=== PATIENT | female | born 1955 | race American Indian/Alaskan Native ===

== ENCOUNTER 2016-03-23 12:25 | Emergency (ER) | payer MEDICARE, MEDICAID ==
[~2016-03-23] VITALS: Ht 160 cm; Wt 71.2 kg
[~2016-03-23 12:25] MED LIST: ALPR0.5T7; ESTR2TAB; FLUC150T41; GLIP-115; METR0.7517; OXYC325T14; PIOG15TA46; TRAM50TA2
[2016-03-23] MEDS ORDERED: HYDROmorphone HCL 2 MG/ML VL IV ONE (13:15)
[2016-03-23] MEDS ORDERED: ONDANSETRON HCL 4 MG/2 ML VIAL IV ONE (13:15)
[2016-03-23 13:54] LABS: Basophils # (auto) 0 uL; Basophils % (auto) 0.2 % (0.0-2.0); Eosinophils # (auto) 0 uL; Eosinophils % (auto) 0.5 % (0.0-7.0); Hematocrit 37.6 % (36.0-46.0); Hemoglobin 12.1 g/dL (12.2-16.2); Lymphocytes # (auto) 2.1 uL; Lymphocytes % (auto) 37.1 % (10.0-50.0); Mean Corpuscular Hemoglobin 28.6 pg (28.0-32.0); Mean Corpuscular Hgb Conc. 32.3 g/dL (32.0-36.0); Mean Corpuscular Volume 88.4 fL (80.0-100.0); Mean Platelet Volume 9.4 fL (7.4-10.4); Monocytes # (auto) 0.2 uL; Monocytes % (auto) 3.9 % (0.0-12.0); Neutrophils # (auto) 3.4 uL; Neutrophils % (auto) 58.3 % (37.0-80.0); Platelet Count (auto) 368 10^3/uL (140-450); Red Cell Distribution Width 15.1 % (11.6-16.0); White Blood Cell 5.8 10^3/uL (4.4-10.8)
[2016-03-23 14:18] LABS: Albumin 3.4 g/dL (3.4-5.0); BUN/Creatinine Ratio 16.5; Bilirubin, Total 0.2 mg/dL (0.2-1.0); Calcium 9.3 mg/dL (8.5-10.1); Potassium 4.1 mmol/L (3.5-5.1); Total Protein 7.1 g/dL (6.4-8.2)
[2016-03-23 16:38] VITALS: BP 136/63
== END 2016-03-23 16:45 | disposition short-term general hospital (02) ==
LOC: EDUNIT# 12:25 → ER 12:31
DX: S72.001A Fracture of unspecified part of neck of right femur, initial encounter for closed fracture (principal); E11.9 Type 2 diabetes mellitus without complications; I10 Essential (primary) hypertension; J44.9 Chronic obstructive pulmonary disease, unspecified; M19.90 Unspecified osteoarthritis, unspecified site; Z96.641 Presence of right artificial hip joint; E07.9 Disorder of thyroid, unspecified; F17.210 Nicotine dependence, cigarettes, uncomplicated; X50.1XXA Overexertion from prolonged static or awkward postures, initial encounter; Y93.89 Activity, other specified; Y99.8 Other external cause status; Y92.89 Other specified places as the place of occurrence of the external cause
CPT/HCPCS: 36415; 73502; 80053; 85025; 96374; 96375; 99285; J1170; J2405

== ENCOUNTER 2016-12-20 16:19 | Inpatient (IN) | payer MEDICARE, MEDICAID ==
[~2016-12-20] VITALS: Ht 160 cm; Wt 83.0 kg
[~2016-12-20 16:19] MED LIST changes: -ALPR0.5T7; +ALPR0.5T7 PO
[2016-12-20] MEDS ORDERED: SODIUM CHLORIDE 0.9% 1,000 ML IVB ONE (17:08)
[2016-12-20 17:26] LABS: Basophils # (auto) 0 uL; Basophils % (auto) 0.5 % (0.0-2.0); Eosinophils # (auto) 0.1 uL; Eosinophils % (auto) 1.3 % (0.0-7.0); Hematocrit 36.4 % (36.0-46.0); Hemoglobin 11.5 g/dL (12.2-16.2); Lymphocytes # (auto) 1.7 uL; Lymphocytes % (auto) 35.8 % (10.0-50.0); Mean Corpuscular Hemoglobin 28.9 pg (28.0-32.0); Mean Corpuscular Hgb Conc. 31.6 g/dL (32.0-36.0); Mean Corpuscular Volume 91.2 fL (80.0-100.0); Mean Platelet Volume 9.1 fL (6.9-10.8); Monocytes # (auto) 0.3 uL; Monocytes % (auto) 5.2 % (0.0-12.0); Neutrophils # (auto) 2.7 uL; Neutrophils % (auto) 57.2 % (37.0-80.0); Platelet Count (auto) 293 10^3/uL (140-450); Red Cell Distribution Width 15.9 % (11.8-14.3); White Blood Cell 4.8 10^3/uL (4.4-10.8)
[2016-12-20 17:40] LABS: INR 0.96 (0.9-1.15); Partial Thromboplastin Time 29.2 sec (22.64-33.71); Prothrombin Time 10.5 sec (9.37-12.3)
[2016-12-20 18:02] LABS: Albumin 3.4 g/dL (3.4-5.0); BUN/Creatinine Ratio 19.4; Bilirubin, Total 0.3 mg/dL (0.2-1.0); Calcium 8.7 mg/dL (8.5-10.1); Magnesium 2.2 mg/dL (1.6-2.6); Potassium 4.3 mmol/L (3.5-5.1); Total Protein 6.8 g/dL (6.4-8.2)
[2016-12-20] MEDS ORDERED: MORPHINE SULF INJ 2 MG/ML SYRINGE 1ML IV ONE (18:30)
[2016-12-20] MEDS ORDERED: InsuLIN REG 1unit/0.01ml Soln (100units/ml) IV ONE (18:30)
[2016-12-20] MEDS ORDERED: ONDANSETRON HCL 4 MG/2 ML VIAL IV ONE (18:30)
[2016-12-20] MEDS ORDERED: HYDROcodone-ACET 10/325MG TAB PO ONE (20:15)
[2016-12-20] MEDS ORDERED: ACETAMINOPHEN 500 MG TAB PO PRN (20:45)
[2016-12-20] MEDS ORDERED: CLINDAMYCIN 600MG IV 50 ML IV ONE (20:45)
[2016-12-20] MEDS ORDERED: cefTRIAXone 1GM/50ML D5W 50 ML IV ONE (20:45)
[2016-12-20] MEDS ORDERED: DEXTROSE (50%) 50ML SYRG IV PRN (20:45)
[2016-12-20] MEDS ORDERED: MORPHINE SULF INJ 2 MG/ML SYRINGE 1ML IV PRN (20:45)
[2016-12-20] MEDS ORDERED: NITROGLYCERIN 0.4 MG SL TAB SL PRN (20:45)
[2016-12-20] MEDS ORDERED: ONDANSETRON HCL 4 MG/2 ML VIAL IV PRN (20:45)
[2016-12-20 21:40] LABS: Cholesterol 159 mg/dL (< 200); HDL Cholesterol 91 mg/dL (40-59); LDL Cholesterol 64 mg/dL (< 100); Triglycerides 49 mg/dL (< 150)
[2016-12-20] MEDS ORDERED: InsuLIN REG 1unit/0.01ml Soln (100units/ml) SC SCH (22:00)
[2016-12-20] MEDS: ACCU-CHEK COMFORT CURVE STRIP VI SCH (23:20)
[2016-12-20] MEDS: CLINDAMYCIN 600MG IV 50 ML IV SCH (23:30)
[2016-12-20] MEDS: PRAMIPEXOLE DIHYDROCHLORIDE MO 0.25 MG TAB PO SCH (23:31)
[2016-12-20] MEDS: MORPHINE SULF INJ 2 MG/ML SYRINGE 1ML IV PRN (23:32)
[2016-12-21] MEDS: HYDROcodone-ACET 5/325MG TAB PO PRN ×2 (03:42→09:20)
[2016-12-21 05:00] VITALS: BP 135/72
[2016-12-21] MEDS: CLINDAMYCIN 600MG IV 50 ML IV SCH ×2 (06:04→14:15)
[2016-12-21] MEDS: InsuLIN REG 1unit/0.01ml Soln (100units/ml) SC SCH ×3 (07:00→17:01)
[2016-12-21] MEDS: LEVOTHYROXINE SODIUM 50 MCG TAB PO SCH (07:00)
[2016-12-21] MEDS: ACCU-CHEK COMFORT CURVE STRIP VI SCH ×4 (07:00→21:43)
[2016-12-21 07:01] LABS: Basophils # (auto) 0 uL; Basophils % (auto) 0.4 % (0.0-2.0); Eosinophils # (auto) 0.1 uL; Eosinophils % (auto) 2.1 % (0.0-7.0); Hematocrit 35.5 % (36.0-46.0); Hemoglobin 11.3 g/dL (12.2-16.2); Lymphocytes # (auto) 2.6 uL; Lymphocytes % (auto) 50.6 % (10.0-50.0); Mean Corpuscular Hemoglobin 29.1 pg (28.0-32.0); Mean Corpuscular Volume 90.9 fL (80.0-100.0); Mean Platelet Volume 9.6 fL (6.9-10.8); Monocytes # (auto) 0.3 uL; Monocytes % (auto) 4.8 % (0.0-12.0); Neutrophils # (auto) 2.2 uL; Neutrophils % (auto) 42.1 % (37.0-80.0); Nucleated Red Blood Cells % 0.2 %; Platelet Count (auto) 283 10^3/uL (140-450); Red Cell Distribution Width 15.7 % (11.8-14.3); White Blood Cell 5.2 10^3/uL (4.4-10.8)
[2016-12-21 07:09] LABS: Potassium 3.8 mmol/L (3.5-5.1)
[2016-12-21 07:10] LABS: Calcium 8.5 mg/dL (8.5-10.1)
[2016-12-21 09:20] VITALS: BP 137/56
[2016-12-21] MEDS: MORPHINE SULF INJ 2 MG/ML SYRINGE 1ML IV PRN ×3 (10:06→18:57)
[2016-12-21 11:44] VITALS: BP 154/74
[2016-12-21] MEDS ORDERED: DEXTROSE (50%) 50ML SYRG IV PRN (12:00)
[2016-12-21 17:16] VITALS: BP 140/72
[2016-12-21 21:36] VITALS: BP 122/68
[2016-12-21] MEDS: PRAMIPEXOLE DIHYDROCHLORIDE MO 0.25 MG TAB PO SCH (21:43)
[2016-12-21] MEDS: INSULIN DETEMIR(LEVEMIR) 1unit/0.01ml Soln (100units/ml) SC SCH (21:43)
[2016-12-21] MEDS ORDERED: InsuLIN REG 1unit/0.01ml Soln (100units/ml) SC SCH (22:00)
[2016-12-21] MEDS ORDERED: cefTRIAXone 1GM/50ML D5W 50 ML IV SCH (22:00)
[2016-12-22] MEDS: MORPHINE SULF INJ 2 MG/ML SYRINGE 1ML IV PRN ×4 (00:20→14:04)
[2016-12-22 04:25] VITALS: BP 141/78
[2016-12-22] MEDS: HYDROcodone-ACET 5/325MG TAB PO PRN ×3 (05:00→15:56)
[2016-12-22] MEDS: INSULIN DETEMIR(LEVEMIR) 1unit/0.01ml Soln (100units/ml) SC SCH (06:40)
[2016-12-22] MEDS: LEVOTHYROXINE SODIUM 50 MCG TAB PO SCH (06:40)
[2016-12-22] MEDS: InsuLIN REG 1unit/0.01ml Soln (100units/ml) SC SCH ×2 (06:40→11:35)
[2016-12-22] MEDS: ACCU-CHEK COMFORT CURVE STRIP VI SCH ×2 (06:41→11:36)
[2016-12-22 09:06] VITALS: BP 138/62
[2016-12-22 13:00] VITALS: BP 129/52
[2016-12-22 16:14] VITALS: BP 129/52
== END 2016-12-22 17:00 | disposition home or self-care (01) | DRG 639 ==
LOC: ER 16:19 → TELE 16:20 → TELE-WESTW 22:10
PROVIDERS: ADMIT Nurse Practitioner Family; ATTEND Internal Medicine Pulmonary Disease
DX: E11.65 Type 2 diabetes mellitus with hyperglycemia (principal); I10 Essential (primary) hypertension; W01.0XXA Fall on same level from slipping, tripping and stumbling without subsequent striking against object, initial encounter; J44.9 Chronic obstructive pulmonary disease, unspecified; E03.9 Hypothyroidism, unspecified; M19.90 Unspecified osteoarthritis, unspecified site; G25.81 Restless legs syndrome; D64.9 Anemia, unspecified; M25.551 Pain in right hip; M25.552 Pain in left hip; M79.641 Pain in right hand; Z96.659 Presence of unspecified artificial knee joint; Z96.649 Presence of unspecified artificial hip joint; F17.210 Nicotine dependence, cigarettes, uncomplicated; Z79.4 Long term (current) use of insulin; Z90.89 Acquired absence of other organs; Z98.51 Tubal ligation status; Z87.81 Personal history of (healed) traumatic fracture; Z79.899 Other long term (current) drug therapy; Y93.89 Activity, other specified; Y92.89 Other specified places as the place of occurrence of the external cause; Y99.8 Other external cause status
CPT/HCPCS: 36415; 70450; 71010; 72192; 73130; 73200; 80048; 80053; 80061; 82550; 82962; 83036; 83735; 84443; 84484; 85025; 85610; 85652; 85730; 86141; 93005; 94761; 96361; 96374; 96375; J0696; J1815; J2405; J3490

== ENCOUNTER 2017-08-10 17:25 | Inpatient (IN) | payer MEDICARE, MEDICAID ==
[~2017-08-10] VITALS: Ht 160 cm; Wt 63.4 kg
[2017-08-10] MEDS ORDERED: PANTOPRAZOLE 40 MG/10 ML VIAL IV STA (17:29)
[2017-08-10] MEDS ORDERED: MORPHINE SULFATE 4 MG/ML SYR/VIAL IV ONE (17:30)
[2017-08-10] MEDS ORDERED: PROCHLORPERAZINE EDISYLATE 5 MG/ML 2ML VIAL IV ONE (17:30)
[2017-08-10] MEDS ORDERED: MORPHINE SULFATE INJECTION 1 ML ONE (17:58)
[2017-08-10 18:01] LABS: Nucleated Red Blood Cells % 0.1 %
[2017-08-10 18:17] LABS: Basophils # (auto) 0.1 uL; Basophils % (auto) 0.6 % (0.0-2.0); Eosinophils # (auto) 0 uL; Eosinophils % (auto) 0.3 % (0.0-7.0); Hemoglobin 14.4 g/dL (12.2-16.2)
[2017-08-10 18:19] LABS: Lymphocytes # (auto) 2.5 uL; Lymphocytes % (auto) 27.6 % (10.0-50.0); Mean Corpuscular Hemoglobin 30.6 pg (28.0-32.0); Mean Corpuscular Hgb Conc. 31.4 g/dL (32.0-36.0); Mean Corpuscular Volume 97.6 fL (80.0-100.0); Monocytes # (auto) 0.5 uL; Monocytes % (auto) 5.1 % (0.0-12.0); Neutrophils % (auto) 66.4 % (37.0-80.0); Platelet Count (auto) 435 10^3/uL (140-450); Red Blood Cells 4.71 10^6/uL (4.0-5.20); Red Cell Distribution Width 18.6 % (11.8-14.3); White Blood Cell 9.1 10^3/uL (4.4-10.8)
[2017-08-10 18:23] LABS: Albumin 3.8 g/dL (3.4-5.0); Calcium 10.9 mg/dL (8.5-10.1); Potassium 4.7 mmol/L (3.5-5.1)
[2017-08-10 18:25] LABS: Bilirubin, Total 0.7 mg/dL (0.2-1.0)
[2017-08-10 18:28] LABS: Lactic Acid w/Reflex 2.3 mmol/L (0.4-2.0)
[2017-08-10] MEDS ORDERED: InsuLIN REG 1unit/0.01ml Soln (100units/ml) IV ONE (18:30)
[2017-08-10] MEDS ORDERED: InsuLIN R (HUMAN) 100 UNITS in SODIUM CHL 0.9% 99 ML IV SCH (18:39)
[2017-08-10] MEDS ORDERED: DEXTROSE (50%) 50ML SYRG IV SCH (18:45)
[2017-08-10] MEDS ORDERED: LABETALOL HCL 5 MG/ML ML 20ML VIAL IV ONE (19:30)
[2017-08-10] MEDS: ACCU-CHEK COMFORT CURVE STRIP VI SCH ×3 (19:39→22:29)
[2017-08-10] MEDS ORDERED: cefTRIAXone 1GM/10ml IVPUSH 10 ML IV ONE (19:45)
[2017-08-10] MEDS ORDERED: ACETAMINOPHEN 325 MG TAB PO PRN (19:45)
[2017-08-10] MEDS ORDERED: MORPHINE SULFATE 8mg/ml INJ SDV IV PRN ×2 (19:45)
[2017-08-10] MEDS ORDERED: DOCUSATE SOD 100 MG CAP PO PRN (19:45)
[2017-08-10] MEDS ORDERED: cloNIDine HCL 0.1 MG TAB PO PRN (19:45)
[2017-08-10] MEDS ORDERED: VANCOMYCIN PER PHARMACY 0 MG IV SCH (19:45)
[2017-08-10] MEDS ORDERED: TEMAZEPAM 15 MG CAP PO PRN (19:45)
[2017-08-10] MEDS ORDERED: NITROGLYCERIN 0.4 MG SL TAB SL PRN (19:45)
[2017-08-10] MEDS ORDERED: VANCOMYCIN 1GM/250ML 250 ML IV SCH (22:00)
[2017-08-10 22:24] LABS: Lactic Acid w/Reflex 4.4 mmol/L (0.4-2.0)
[2017-08-10] MEDS: FAMOTIDINE 20 MG TAB PO SCH (22:26)
[2017-08-11] MEDS: ACCU-CHEK COMFORT CURVE STRIP VI SCH ×12 (00:11→18:42)
[2017-08-11] MEDS: ALBUTEROL SULF 2.5 MG/0.5ML(0.5%) NEB SOLN NEB SCH ×4 (00:23→18:59)
[2017-08-11 05:17] LABS: Urine Bacteria FEW /hpf (None Seen); Urine Blood Negative /uL (Negative); Urine Hyaline Cast FEW /lpf (0 - 2); Urine Mucus FEW (None Seen); Urine Specific Gravity 1.014 (1.001-1.035); Urine WBC 2 /hpf (0 - 5)
[2017-08-11 05:28] LABS: Alcohol, Urine < 3.0 mg/dL (0-5); Amphetamine Screen, Urine POSITIVE (NEGATIVE); Barbiturate Scree,Urine NEGATIVE (NEGATIVE); Benzodiazephine Screen, Urine NEGATIVE (NEGATIVE); Cannabinoid Screen, Urine POSITIVE (NEGATIVE); Cocaine Screen, Urine NEGATIVE (NEGATIVE); Opiate Scree,Urine POSITIVE (NEGATIVE); Phencyclidine Screen, Urine NEGATIVE (NEGATIVE)
[2017-08-11 05:47] VITALS: BP 138/61
[2017-08-11 06:07] LABS: Basophils # (auto) 0 uL; Basophils % (auto) 0.4 % (0.0-2.0); Eosinophils # (auto) 0 uL; Eosinophils % (auto) 0.4 % (0.0-7.0); Hematocrit 37.4 % (36.0-46.0); Hemoglobin 12.5 g/dL (12.2-16.2); Lymphocytes # (auto) 1.6 uL; Lymphocytes % (auto) 21.7 % (10.0-50.0); Mean Corpuscular Hemoglobin 30.9 pg (28.0-32.0); Mean Corpuscular Hgb Conc. 33.5 g/dL (32.0-36.0); Mean Corpuscular Volume 92.1 fL (80.0-100.0); Monocytes # (auto) 0.4 uL; Neutrophils # (auto) 5.2 uL; Neutrophils % (auto) 71.5 % (37.0-80.0); Nucleated Red Blood Cells % 0.1 %; Platelet Count (auto) 330 10^3/uL (140-450); Red Blood Cells 4.06 10^6/uL (4.0-5.20); Red Cell Distribution Width 17.1 % (11.8-14.3); White Blood Cell 7.3 10^3/uL (4.4-10.8)
[2017-08-11 06:11] LABS: Albumin 3.2 g/dL (3.4-5.0); BUN/Creatinine Ratio 17.1; Bilirubin, Total 0.4 mg/dL (0.2-1.0); Calcium 9.2 mg/dL (8.5-10.1); Total Protein 6.4 g/dL (6.4-8.2)
[2017-08-11] MEDS ORDERED: cefTRIAXone 1GM/10ml IVPUSH 10 ML IV SCH (09:00)
[2017-08-11] MEDS: MULTIPLE VITAMIN TAB PO SCH (09:58)
[2017-08-11] MEDS: FAMOTIDINE 20 MG TAB PO SCH ×2 (09:58→22:49)
[2017-08-11] MEDS: ONDANSETRON HCL 4 MG/2 ML VIAL IV PRN ×2 (13:00→21:39)
[2017-08-11] MEDS: SODIUM CHLORIDE 0.9% 1,000 ML IV SCH (14:44)
[2017-08-11 15:13] LABS: BUN/Creatinine Ratio 10.8; Calcium 8.2 mg/dL (8.5-10.1); Potassium 3.2 mmol/L (3.5-5.1)
[2017-08-11] MEDS ORDERED: INSULIN LANTUS (GLARGINE) 1 /0.01ml (100units/ml) SC ONE (15:15)
[2017-08-11] MEDS ORDERED: DEXTROSE (50%) 50ML SYRG IV PRN (17:15)
[2017-08-11] MEDS: MORPHINE SULFATE 8mg/ml INJ SDV IV PRN (21:39)
[2017-08-11] MEDS ORDERED: InsuLIN REG 1unit/0.01ml Soln (100units/ml) SC SCH (22:00)
[2017-08-11 23:15] VITALS: BP 101/54
[2017-08-11 23:26] VITALS: BP 109/54
[2017-08-11] MEDS ORDERED: INSLANTI SC (23:55)
[2017-08-12] MEDS ORDERED: PERCOT PO
[2017-08-12] MEDS ORDERED: PIOG15TA38 PO
[2017-08-12] MEDS ORDERED: INSU100I24 SC
[2017-08-12] MEDS ORDERED: PRAM1TAB PO
[2017-08-12] MEDS ORDERED: LEVO150T10 PO
[2017-08-12] MEDS: SODIUM CHLORIDE 0.9% 1,000 ML IV SCH (00:28)
[2017-08-12] MEDS: HYDROcodone-ACET 5/325MG TAB PO PRN ×2 (03:16→11:10)
[2017-08-12 05:00] VITALS: BP 121/60
[2017-08-12] MEDS ORDERED: SODIUM CHLORIDE 0.9 % NEB SOLN 3ML NEB ONE ×2 (05:49→12:01)
[2017-08-12 05:51] LABS: Basophils # (auto) 0 uL; Basophils % (auto) 0.7 % (0.0-2.0); Eosinophils # (auto) 0.1 uL; Eosinophils % (auto) 3.3 % (0.0-7.0); Hematocrit 35.1 % (36.0-46.0); Hemoglobin 11.6 g/dL (12.2-16.2); Lymphocytes # (auto) 1.8 uL; Mean Corpuscular Hemoglobin 30.5 pg (28.0-32.0); Mean Corpuscular Hgb Conc. 32.9 g/dL (32.0-36.0); Mean Corpuscular Volume 92.6 fL (80.0-100.0); Monocytes # (auto) 0.2 uL; Monocytes % (auto) 4.6 % (0.0-12.0); Neutrophils # (auto) 1.6 uL; Neutrophils % (auto) 42.4 % (37.0-80.0); Nucleated Red Blood Cells % 0.2 %; Platelet Count (auto) 271 10^3/uL (140-450); Red Blood Cells 3.79 10^6/uL (4.0-5.20); Red Cell Distribution Width 17.7 % (11.8-14.3); White Blood Cell 3.7 10^3/uL (4.4-10.8)
[2017-08-12 06:05] LABS: Calcium 8.2 mg/dL (8.5-10.1); Magnesium 2.2 mg/dL (1.6-2.6); Potassium 3.3 mmol/L (3.5-5.1)
[2017-08-12] MEDS: ACCU-CHEK COMFORT CURVE STRIP VI SCH (06:31)
[2017-08-12] MEDS ORDERED: LEVOTHYROXINE SODIUM 50 MCG TAB PO SCH (07:00)
[2017-08-12] MEDS ORDERED: InsuLIN REG 1unit/0.01ml Soln (100units/ml) SC SCH ×2 (07:00→11:30)
[2017-08-12] MEDS: ALBUTEROL SULF 2.5 MG/0.5ML(0.5%) NEB SOLN NEB SCH ×3 (07:10→13:35)
[2017-08-12] MEDS: ONDANSETRON HCL 4 MG/2 ML VIAL IV PRN (08:46)
[2017-08-12] MEDS: MORPHINE SULFATE 8mg/ml INJ SDV IV PRN (08:47)
[2017-08-12 09:00] VITALS: BP 117/67
[2017-08-12] MEDS ORDERED: DEXTROSE (50%) 50ML SYRG IV PRN (09:45)
[2017-08-12] MEDS ORDERED: POTASSIUM CHL 20 Meq TABLET PO ONE (09:45)
[2017-08-12] MEDS: MULTIPLE VITAMIN TAB PO SCH (10:19)
[2017-08-12] MEDS: FAMOTIDINE 20 MG TAB PO SCH (10:19)
[2017-08-12] MEDS ORDERED: ACCU-CHEK COMFORT CURVE STRIP VI SCH (11:30)
[2017-08-12 13:00] VITALS: BP 120/70
== END 2017-08-12 15:35 | disposition home or self-care (01) | DRG 871 ==
LOC: EDBD 17:25 → ER 17:25 → EDUNIT# 17:25 → TELE 17:26 → TELE-WESTW 22:12
PROVIDERS: ADMIT Internal Medicine; ATTEND Internal Medicine
DX: A41.9 Sepsis, unspecified organism (principal); E11.10 Type 2 diabetes mellitus with ketoacidosis without coma; N17.0 Acute kidney failure with tubular necrosis; E87.1 Hypo-osmolality and hyponatremia; E11.21 Type 2 diabetes mellitus with diabetic nephropathy; N18.3 Chronic kidney disease, stage 3 (moderate); E83.51 Hypocalcemia; I12.9 Hypertensive chronic kidney disease with stage 1 through stage 4 chronic kidney disease, or unspecified chronic kidney disease; E03.9 Hypothyroidism, unspecified; E11.22 Type 2 diabetes mellitus with diabetic chronic kidney disease; E87.6 Hypokalemia; F17.210 Nicotine dependence, cigarettes, uncomplicated; G25.81 Restless legs syndrome; J44.9 Chronic obstructive pulmonary disease, unspecified; F15.10 Other stimulant abuse, uncomplicated; F41.9 Anxiety disorder, unspecified; F12.10 Cannabis abuse, uncomplicated; F11.10 Opioid abuse, uncomplicated; M19.90 Unspecified osteoarthritis, unspecified site; Z79.4 Long term (current) use of insulin; Z83.3 Family history of diabetes mellitus; Z87.01 Personal history of pneumonia (recurrent); Z90.710 Acquired absence of both cervix and uterus; Z91.19 Patient's noncompliance with other medical treatment and regimen; Z98.51 Tubal ligation status; Z79.899 Other long term (current) drug therapy; Z90.89 Acquired absence of other organs
CPT/HCPCS: 36415; 36600; 71045; 80048; 80053; 80061; 80307; 81001; 82010; 82150; 82805; 82962; 83036; 83605; 83690; 83735; 84443; 84484; 85025; 87040; 87081; 87086; 93005; 93306; 94640; 94761; 96365; 96367; 96375; C9113; J1815; J2270; J2405

== ENCOUNTER 2017-08-15 12:17 | Inpatient (IN) | payer MEDICARE, MEDICAID ==
[~2017-08-15] VITALS: Ht 167.6 cm; Wt 56.9 kg
[2017-08-15] MEDS: InsuLIN R (HUMAN) 100 UNITS in SODIUM CHL 0.9% 99 ML IV SCH (02:00)
[~2017-08-15 12:17] MED LIST changes: -ESTR2TAB; -FLUC150T41; -GLIP-115; +INSLANTI SC; +INSU100I24 SC; +LEVO150T10 PO; -METR0.7517; -OXYC325T14; +PERCOT PO; +PIOG15TA38 PO; -PIOG15TA46; +PRAM1TAB PO; -TRAM50TA2
[2017-08-15] MEDS ORDERED: ASPirin 81 mg TAB PO ONE (13:00)
[2017-08-15] MEDS ORDERED: SODIUM CHLORIDE 0.9% 1,000 ML IVB ONE (13:03)
[2017-08-15] MEDS ORDERED: ONDANSETRON HCL 4 MG/2 ML VIAL IV ONE (13:30)
[2017-08-15] MEDS ORDERED: MEPERIDINE HCL (25 MG/ML) 1ML VIAL IV ONE (13:30)
[2017-08-15 13:57] LABS: Basophils # (auto) 0.1 uL; Basophils % (auto) 1.1 % (0.0-2.0); Eosinophils # (auto) 0 uL; Eosinophils % (auto) 0.5 % (0.0-7.0); Hematocrit 37.4 % (36.0-46.0); Hemoglobin 12.2 g/dL (12.2-16.2); Lymphocytes % (auto) 11.3 % (10.0-50.0); Mean Corpuscular Hemoglobin 30.3 pg (28.0-32.0); Mean Corpuscular Hgb Conc. 32.7 g/dL (32.0-36.0); Mean Corpuscular Volume 92.7 fL (80.0-100.0); Monocytes # (auto) 0.4 uL; Monocytes % (auto) 4.3 % (0.0-12.0); Neutrophils # (auto) 7.4 uL; Neutrophils % (auto) 82.8 % (37.0-80.0); Platelet Count (auto) 263 10^3/uL (140-450); Red Blood Cells 4.04 10^6/uL (4.0-5.20); Red Cell Distribution Width 17.6 % (11.8-14.3); White Blood Cell 8.9 10^3/uL (4.4-10.8)
[2017-08-15 14:06] LABS: INR 0.9 (0.9-1.15); Partial Thromboplastin Time 24.3 sec (23.78-33.04); Prothrombin Time 9.7 sec (9.27-12.13)
[2017-08-15 14:14] LABS: Albumin 2.7 g/dL (3.4-5.0); BUN/Creatinine Ratio 16.1; Potassium 3.6 mmol/L (3.5-5.1)
[2017-08-15 14:19] LABS: Bilirubin, Total 0.3 mg/dL (0.2-1.0); Total Protein 5.9 g/dL (6.4-8.2)
[2017-08-15 14:40] LABS: Urine Bacteria NONE SEEN /hpf (None Seen); Urine Blood Negative /uL (Negative); Urine Specific Gravity 1.029 (1.001-1.035); Urine WBC <1 /hpf (0 - 5)
[2017-08-15 14:55] LABS: Alcohol, Urine < 3.0 mg/dL (0-5); Amphetamine Screen, Urine NEGATIVE (NEGATIVE); Barbiturate Scree,Urine NEGATIVE (NEGATIVE); Benzodiazephine Screen, Urine NEGATIVE (NEGATIVE); Cannabinoid Screen, Urine POSITIVE (NEGATIVE); Cocaine Screen, Urine NEGATIVE (NEGATIVE); Opiate Scree,Urine NEGATIVE (NEGATIVE); Phencyclidine Screen, Urine NEGATIVE (NEGATIVE)
[2017-08-15] MEDS ORDERED: InsuLIN R (HUMAN) 100 UNITS in SODIUM CHL 0.9% 99 ML IV SCH (16:06)
[2017-08-15] MEDS ORDERED: DEXTROSE (50%) 50ML SYRG IV PRN ×4 (16:15→23:45)
[2017-08-15] MEDS ORDERED: ACCU-CHEK COMFORT CURVE STRIP VI SCH (16:30)
[2017-08-15] MEDS ORDERED: InsuLIN REG 1unit/0.01ml Soln (100units/ml) IV ONE ×2 (16:30→23:00)
[2017-08-15] MEDS ORDERED: NITROGLYCERIN 0.4 MG SL TAB SL PRN ×2 (16:45)
[2017-08-15] MEDS ORDERED: MORPHINE SULFATE 8mg/ml INJ SDV IV PRN ×2 (16:45)
[2017-08-15] MEDS ORDERED: ONDANSETRON HCL 4 MG/2 ML VIAL IV PRN (16:45)
[2017-08-15] MEDS ORDERED: ALUM & MAG HYDROX-SIMETH LIQ(MAALOX) 30 ML PO ONE (16:45)
[2017-08-15] MEDS ORDERED: ACETAMINOPHEN 325 MG TAB PO PRN (16:45)
[2017-08-15] MEDS: ACCU-CHEK COMFORT CURVE STRIP VI SCH ×2 (16:51→21:34)
[2017-08-15] MEDS ORDERED: InsuLIN REG 1unit/0.01ml Soln (100units/ml) SC SCH ×2 (17:00→22:00)
[2017-08-15] MEDS: SODIUM CHLORIDE 0.9% 1,000 ML IV SCH (18:04)
[2017-08-15] MEDS: OXYCODONE W/ ACETAMINOPHEN 5/325MG TABLET PO PRN (18:05)
[2017-08-15 18:47] VITALS: BP 120/53
[2017-08-15] MEDS: LORazepam 0.5 MG TAB PO PRN (19:44)
[2017-08-15 21:13] VITALS: BP 143/42
[2017-08-15] MEDS: CARVEDILOL 3.125 MG TAB PO SCH (21:33)
[2017-08-15] MEDS: ATORVASTATIN 20 MG TAB PO SCH (21:33)
[2017-08-15] MEDS: ENALAPRIL MALEATE 2.5 MG TAB PO SCH (21:33)
[2017-08-15 23:26] LABS: Potassium 4.7 mmol/L (3.5-5.1)
[2017-08-15 23:27] LABS: Albumin 3.6 g/dL (3.4-5.0); BUN/Creatinine Ratio 13.3; Bilirubin, Total 0.8 mg/dL (0.2-1.0)
[2017-08-16] VITALS (56 sets, daily range): BP systolic 80–125; BP diastolic 35–63
[2017-08-16] MEDS: ACCU-CHEK COMFORT CURVE STRIP VI SCH ×14 (00:12→20:34)
[2017-08-16] MEDS: SODIUM CHLORIDE 0.9% 1,000 ML IV SCH ×6 (00:28→18:31)
[2017-08-16] MEDS ORDERED: ALUM & MAG HYDROX-SIMETH LIQ(MAALOX) 30 ML PO ONE (03:30)
[2017-08-16] MEDS ORDERED: SODIUM CHLORIDE 0.9% 1,000 ML IV SCH (03:37)
[2017-08-16] MEDS: InsuLIN REG 1unit/0.01ml Soln (100units/ml) SC SCH ×6 (04:00→20:34)
[2017-08-16 04:10] LABS: Basophils # (auto) 0 uL; Basophils % (auto) 0.2 % (0.0-2.0); Eosinophils # (auto) 0 uL; Eosinophils % (auto) 0.3 % (0.0-7.0); Hematocrit 32.6 % (36.0-46.0); Hemoglobin 10.9 g/dL (12.2-16.2); Lymphocytes # (auto) 1.3 uL; Lymphocytes % (auto) 13.7 % (10.0-50.0); Mean Corpuscular Hemoglobin 31.3 pg (28.0-32.0); Mean Corpuscular Hgb Conc. 33.5 g/dL (32.0-36.0); Mean Corpuscular Volume 93.4 fL (80.0-100.0); Monocytes # (auto) 0.5 uL; Monocytes % (auto) 4.8 % (0.0-12.0); Neutrophils # (auto) 7.9 uL; Platelet Count (auto) 242 10^3/uL (140-450); Red Blood Cells 3.49 10^6/uL (4.0-5.20); Red Cell Distribution Width 17.6 % (11.8-14.3); White Blood Cell 9.7 10^3/uL (4.4-10.8)
[2017-08-16 04:35] LABS: Albumin 2.7 g/dL (3.4-5.0); BUN/Creatinine Ratio 16.2; Bilirubin, Total 0.3 mg/dL (0.2-1.0); Magnesium 1.8 mg/dL (1.6-2.6); Potassium 3.6 mmol/L (3.5-5.1); Total Protein 5.3 g/dL (6.4-8.2)
[2017-08-16] MEDS: OXYCODONE W/ ACETAMINOPHEN 5/325MG TABLET PO PRN ×4 (06:12→23:45)
[2017-08-16] MEDS: LEVOTHYROXINE SODIUM 50 MCG TAB PO SCH (07:00)
[2017-08-16] MEDS: InsuLIN R (HUMAN) 100 UNITS in SODIUM CHL 0.9% 99 ML IV SCH (08:45)
[2017-08-16] MEDS: PIOGLITAZONE HYDROCHLORIDE 30 MG TAB PO SCH (09:48)
[2017-08-16] MEDS: ASPirin 81 mg TAB PO SCH (09:48)
[2017-08-16] MEDS: DOCUSATE SOD 100 MG CAP PO SCH (09:53)
[2017-08-16] MEDS: CLOPIDOGREL BISULFATE 75 MG TAB PO SCH (09:53)
[2017-08-16] MEDS: CARVEDILOL 3.125 MG TAB PO SCH ×2 (09:53→22:42)
[2017-08-16] MEDS: ENALAPRIL MALEATE 2.5 MG TAB PO SCH ×2 (09:53→22:43)
[2017-08-16] MEDS: INSULIN LANTUS (GLARGINE) 1 /0.01ml (100units/ml) SC SCH (10:00)
[2017-08-16] MEDS: PANTOPRAZOLE 40 MG TAB PO SCH (10:47)
[2017-08-16] MEDS: LORazepam 0.5 MG TAB PO PRN (11:36)
[2017-08-16 12:33] LABS: BUN/Creatinine Ratio 18.8; Potassium 3.8 mmol/L (3.5-5.1)
[2017-08-16] MEDS: PRAMIPEXOLE DIHYDROCHLORIDE MO 0.25 MG TAB PO SCH (16:08)
[2017-08-16 19:53] LABS: BUN/Creatinine Ratio 12.6; Calcium 7.7 mg/dL (8.5-10.1)
[2017-08-16] MEDS: ATORVASTATIN 20 MG TAB PO SCH (22:42)
[2017-08-16] MEDS: ZOLPIDEM TARTRATE 5 MG TAB PO PRN (23:02)
[2017-08-17] MEDS: ACCU-CHEK COMFORT CURVE STRIP VI SCH ×6 (00:05→20:16)
[2017-08-17] MEDS: SODIUM CHLORIDE 0.9% 1,000 ML IV SCH ×4 (01:48→21:56)
[2017-08-17] MEDS: InsuLIN REG 1unit/0.01ml Soln (100units/ml) SC SCH ×6 (04:14→20:16)
[2017-08-17 05:00] VITALS: BP 125/62
[2017-08-17] MEDS: OXYCODONE W/ ACETAMINOPHEN 5/325MG TABLET PO PRN ×4 (05:52→21:00)
[2017-08-17 06:23] LABS: Basophils # (auto) 0 uL; Basophils % (auto) 0.3 % (0.0-2.0); Eosinophils # (auto) 0.3 uL; Eosinophils % (auto) 5.2 % (0.0-7.0); Hematocrit 32.6 % (36.0-46.0); Hemoglobin 10.8 g/dL (12.2-16.2); Lymphocytes # (auto) 2.4 uL; Lymphocytes % (auto) 47.4 % (10.0-50.0); Mean Corpuscular Hgb Conc. 33.2 g/dL (32.0-36.0); Mean Corpuscular Volume 93.4 fL (80.0-100.0); Monocytes # (auto) 0.2 uL; Neutrophils # (auto) 2.2 uL; Neutrophils % (auto) 43.1 % (37.0-80.0); Nucleated Red Blood Cells % 0.1 %; Platelet Count (auto) 246 10^3/uL (140-450); Red Blood Cells 3.49 10^6/uL (4.0-5.20); Red Cell Distribution Width 17.8 % (11.8-14.3)
[2017-08-17] MEDS: LEVOTHYROXINE SODIUM 50 MCG TAB PO SCH (06:24)
[2017-08-17 06:46] LABS: Albumin 2.4 g/dL (3.4-5.0); Potassium 3.7 mmol/L (3.5-5.1)
[2017-08-17 06:48] LABS: BUN/Creatinine Ratio 14.1
[2017-08-17 06:51] LABS: Bilirubin, Total 0.2 mg/dL (0.2-1.0); Total Protein 5.2 g/dL (6.4-8.2)
[2017-08-17 09:00] VITALS: BP 96/62
[2017-08-17] MEDS: PIOGLITAZONE HYDROCHLORIDE 30 MG TAB PO SCH (09:55)
[2017-08-17] MEDS: ASPirin 81 mg TAB PO SCH (09:55)
[2017-08-17] MEDS: CLOPIDOGREL BISULFATE 75 MG TAB PO SCH (09:56)
[2017-08-17] MEDS: PANTOPRAZOLE 40 MG TAB PO SCH (09:56)
[2017-08-17] MEDS: CARVEDILOL 3.125 MG TAB PO SCH ×2 (09:56→21:55)
[2017-08-17] MEDS: DOCUSATE SOD 100 MG CAP PO SCH (09:56)
[2017-08-17] MEDS: INSULIN LANTUS (GLARGINE) 1 /0.01ml (100units/ml) SC SCH (09:56)
[2017-08-17] MEDS: ENALAPRIL MALEATE 2.5 MG TAB PO SCH ×2 (09:56→21:55)
[2017-08-17] MEDS: LORazepam 0.5 MG TAB PO PRN (12:34)
[2017-08-17 13:00] VITALS: BP 117/71
[2017-08-17 17:00] VITALS: BP 119/69
[2017-08-17] MEDS: PRAMIPEXOLE DIHYDROCHLORIDE MO 0.25 MG TAB PO SCH (18:58)
[2017-08-17] MEDS: ATORVASTATIN 20 MG TAB PO SCH (21:55)
[2017-08-17 22:00] VITALS: BP 153/82
[2017-08-18] VITALS (7 sets, daily range): BP systolic 111–146; BP diastolic 52–71
[2017-08-18] MEDS: ACCU-CHEK COMFORT CURVE STRIP VI SCH ×6 (00:02→19:56)
[2017-08-18] MEDS: OXYCODONE W/ ACETAMINOPHEN 5/325MG TABLET PO PRN ×5 (02:35→21:48)
[2017-08-18] MEDS: InsuLIN REG 1unit/0.01ml Soln (100units/ml) SC SCH ×6 (04:00→19:56)
[2017-08-18] MEDS: SODIUM CHLORIDE 0.9% 1,000 ML IV SCH (04:23)
[2017-08-18] MEDS: LEVOTHYROXINE SODIUM 50 MCG TAB PO SCH (06:38)
[2017-08-18] MEDS ORDERED: ADENOSINE 44 MG in GIVE UN-DILUTED 0 ML IV STA (08:30)
[2017-08-18] MEDS: PIOGLITAZONE HYDROCHLORIDE 30 MG TAB PO SCH (10:47)
[2017-08-18] MEDS: DOCUSATE SOD 100 MG CAP PO SCH (10:47)
[2017-08-18] MEDS: PANTOPRAZOLE 40 MG TAB PO SCH (10:47)
[2017-08-18] MEDS: CARVEDILOL 3.125 MG TAB PO SCH ×2 (10:48→21:49)
[2017-08-18] MEDS: INSULIN LANTUS (GLARGINE) 1 /0.01ml (100units/ml) SC SCH (10:49)
[2017-08-18] MEDS: ENALAPRIL MALEATE 2.5 MG TAB PO SCH ×2 (10:49→21:48)
[2017-08-18] MEDS: CLOPIDOGREL BISULFATE 75 MG TAB PO SCH (10:49)
[2017-08-18] MEDS: ASPirin 81 mg TAB PO SCH (10:49)
[2017-08-18] MEDS: LORazepam 0.5 MG TAB PO PRN (17:44)
[2017-08-18] MEDS: PRAMIPEXOLE DIHYDROCHLORIDE MO 0.25 MG TAB PO SCH (19:53)
[2017-08-18] MEDS: ATORVASTATIN 20 MG TAB PO SCH (21:49)
[2017-08-18] MEDS: ZOLPIDEM TARTRATE 5 MG TAB PO PRN (21:55)
[2017-08-19] MEDS: ACCU-CHEK COMFORT CURVE STRIP VI SCH ×3 (00:07→08:05)
[2017-08-19] MEDS: OXYCODONE W/ ACETAMINOPHEN 5/325MG TABLET PO PRN ×2 (03:09→08:04)
[2017-08-19] MEDS: InsuLIN REG 1unit/0.01ml Soln (100units/ml) SC SCH ×3 (04:00→08:05)
[2017-08-19 04:50] VITALS: BP 121/63
[2017-08-19] MEDS: SODIUM CHLORIDE 0.9% 1,000 ML IV SCH ×2 (07:13)
[2017-08-19] MEDS: LEVOTHYROXINE SODIUM 50 MCG TAB PO SCH (07:14)
[2017-08-19 08:00] VITALS: BP 125/66
[2017-08-19 08:28] VITALS: BP 125/66
[2017-08-19] MEDS: PIOGLITAZONE HYDROCHLORIDE 30 MG TAB PO SCH (09:47)
[2017-08-19] MEDS: DOCUSATE SOD 100 MG CAP PO SCH (09:48)
[2017-08-19] MEDS: INSULIN LANTUS (GLARGINE) 1 /0.01ml (100units/ml) SC SCH (09:48)
[2017-08-19] MEDS: ASPirin 81 mg TAB PO SCH (09:48)
[2017-08-19] MEDS: CARVEDILOL 3.125 MG TAB PO SCH (09:50)
[2017-08-19] MEDS: ENALAPRIL MALEATE 2.5 MG TAB PO SCH (09:51)
[2017-08-19] MEDS: PANTOPRAZOLE 40 MG TAB PO SCH (09:51)
[2017-08-19] MEDS: CLOPIDOGREL BISULFATE 75 MG TAB PO SCH (09:51)
== END 2017-08-19 11:05 | disposition home health service (06) | DRG 637 ==
LOC: ER 12:17 → EDBD 12:17 → TELE 12:18 → TELE-WESTW 17:28 → ICU WEST 08-16 01:40 → TELE-CENTR 08-16 15:30
PROVIDERS: ADMIT Internal Medicine; ATTEND Family Medicine
DX: E10.10 Type 1 diabetes mellitus with ketoacidosis without coma (principal); I50.41 Acute combined systolic (congestive) and diastolic (congestive) heart failure; E87.0 Hyperosmolality and hypernatremia; E44.0 Moderate protein-calorie malnutrition; E10.21 Type 1 diabetes mellitus with diabetic nephropathy; I20.0 Unstable angina; E83.51 Hypocalcemia; I13.0 Hypertensive heart and chronic kidney disease with heart failure and stage 1 through stage 4 chronic kidney disease, or unspecified chronic kidney disease; D64.9 Anemia, unspecified; E03.9 Hypothyroidism, unspecified; E10.22 Type 1 diabetes mellitus with diabetic chronic kidney disease; E78.00 Pure hypercholesterolemia, unspecified; F17.210 Nicotine dependence, cigarettes, uncomplicated; G89.29 Other chronic pain; J44.9 Chronic obstructive pulmonary disease, unspecified; M16.12 Unilateral primary osteoarthritis, left hip; N18.9 Chronic kidney disease, unspecified; Z83.3 Family history of diabetes mellitus; Z91.19 Patient's noncompliance with other medical treatment and regimen; Z96.649 Presence of unspecified artificial hip joint; Z98.51 Tubal ligation status; Z68.20 Body mass index [BMI] 20.0-20.9, adult
CPT/HCPCS: 36415; 36600; 71045; 78452; 80048; 80053; 80061; 80307; 81001; 82010; 82805; 82962; 83036; 83735; 83880; 83930; 84443; 84484; 85025; 85610; 85730; 87081; 93005; 93017; 96361; 96374; 96375; J0153; J1815; J2270; J2405

== ENCOUNTER 2017-11-08 09:18 | Emergency (ER) | payer MEDICARE, OTHER ==
[~2017-11-08] VITALS: Ht 160 cm; Wt 63.5 kg
[2017-11-08] MEDS ORDERED: GABA300C10 PO (10:30)
[2017-11-08] MEDS ORDERED: ACAR25TA PO (10:30)
[2017-11-08] MEDS ORDERED: SODIUM CHLORIDE 0.9% 1,000 ML IV ONE (10:32)
[2017-11-08 10:49] LABS: Basophils # (auto) 0 uL; Basophils % (auto) 0.7 % (0.0-2.0); Eosinophils # (auto) 0 uL; Eosinophils % (auto) 0.5 % (0.0-7.0); Hematocrit 40.6 % (36.0-46.0); Hemoglobin 13.2 g/dL (12.2-16.2); Lymphocytes # (auto) 2.4 uL; Lymphocytes % (auto) 36.4 % (10.0-50.0); Mean Corpuscular Hemoglobin 30.3 pg (28.0-32.0); Mean Corpuscular Hgb Conc. 32.6 g/dL (32.0-36.0); Mean Corpuscular Volume 92.8 fL (80.0-100.0); Monocytes # (auto) 0.4 uL; Monocytes % (auto) 6.1 % (0.0-12.0); Neutrophils # (auto) 3.8 uL; Neutrophils % (auto) 56.3 % (37.0-80.0); Nucleated Red Blood Cells % 0.2 %; Platelet Count (auto) 367 10^3/uL (140-450); Red Blood Cells 4.37 10^6/uL (4.0-5.20); Red Cell Distribution Width 15.5 % (11.8-14.3); White Blood Cell 6.7 10^3/uL (4.4-10.8)
[2017-11-08 11:09] LABS: Albumin 3.4 g/dL (3.4-5.0); BUN/Creatinine Ratio 11.9; Bilirubin, Total 0.4 mg/dL (0.2-1.0); Calcium 9.5 mg/dL (8.5-10.1); Magnesium 2.2 mg/dL (1.6-2.6); Potassium 3.9 mmol/L (3.5-5.1); Total Protein 7.5 g/dL (6.4-8.2)
[2017-11-08] MEDS ORDERED: HYDROcodone-ACET 5/325MG TAB PO ONE (11:45)
[2017-11-08 14:00] VITALS: BP 126/75
== END 2017-11-08 15:19 | disposition home or self-care (01) ==
LOC: EDBD 09:18 → ER 09:20
DX: J20.9 Acute bronchitis, unspecified (principal); E11.9 Type 2 diabetes mellitus without complications; I10 Essential (primary) hypertension; M19.90 Unspecified osteoarthritis, unspecified site; F12.10 Cannabis abuse, uncomplicated; Z98.51 Tubal ligation status
CPT/HCPCS: 36415; 71045; 80053; 82010; 82962; 83735; 84484; 85025; 93005; 94761; 99285; J7030

== ENCOUNTER 2023-05-21 17:18 | Inpatient (IN) | payer OTHER ==
[2023-05-21] VITALS (22 sets, daily range): BP systolic 107–151; BP diastolic 53–79; PULSE 79–110; RESP 16–32; TEMP 97.7–98.6; O2SAT 98–100
[~2023-05-21] VITALS: Ht 165.1 cm; Wt 85.5 kg
[~2023-05-21 17:18] MED LIST changes: +ACAR25TA PO; +GABA-1250 PO; +PRAM0.373 PO; -PRAM1TAB PO
[2023-05-21] MEDS ORDERED: DEXTROSE (50%) 50ML SYRG IV PRN (19:30)
[2023-05-21] MEDS ORDERED: SODIUM CHLORIDE 0.9% 1,000 ML IV SCH (19:30)
[2023-05-21 19:58] LABS: Base Excess -12.4 mmol/L (-2.0-2.0)
[2023-05-21] MEDS: INSULIN DRIP 100 UNIT/100ML 100 ML IV SCH (20:15)
[2023-05-21] MEDS: InsuLIN REG 1unit/0.01ml Soln (100units/ml) SC ONE (20:16)
[2023-05-21 20:18] LABS: Chloride 102 mmol/L (98-107); Potassium 3.8 mmol/L (3.5-5.1); Sodium 136 mmol/L (136-145)
[2023-05-21] MEDS: INSULIN LANTUS (GLARGINE) 1 /0.01ml (100units/ml) SC ONE (20:18)
[2023-05-21 20:19] LABS: Anion Gap 24.00001 (5-15)
[2023-05-21] MEDS: ACCU-CHEK COMFORT CURVE STRIP VI SCH (20:19)
[2023-05-21 20:20] LABS: Calcium 8.5 mg/dL (8.7-10.4)
[2023-05-21] MEDS: SODIUM CHLORIDE 0.9% 1,000 ML IV ONE (20:22)
[2023-05-21] MEDS: SODIUM CHLORIDE 0.9% 1,000 ML IV SCH ×2 (20:23→23:45)
[2023-05-21 20:25] LABS: BUN/Creatinine Ratio 8.4 (10.0-20.0); Blood Urea Nitrogen 14 mg/dL (9-23); Magnesium 1.9 mg/dL (1.6-2.6)
[2023-05-21 20:26] LABS: Hemoglobin 9.3 g/dL (12.2-16.2); Mean Corpuscular Hgb Conc. 28.4 g/dL (32.0-36.0); Red Blood Cells 3.47 10^6/uL (4.0-5.20)
[2023-05-21 20:27] LABS: Hematocrit 32.7 % (36.0-46.0); Mean Corpuscular Hemoglobin 26.8 pg (28.0-32.0); Mean Corpuscular Volume 94.4 fL (80.0-100.0); Phosphorus 2.8 mg/dL (2.4-5.1); Red Cell Distribution Width 18.5 % (11.8-14.3); White Blood Cell 12.6 10^3/uL (4.4-10.8)
[2023-05-21 20:47] LABS: Carbon Dioxide < 10 mmol/L (20-30); Glucose 697 mg/dL (74-106)
[2023-05-21 21:04] LABS: Basophils % (manual) 0 (0.0-2.0); Blast Cells 0; Eosinophils % (manual) 0 (0-7); Metamyelocytes % 0; Myelocytes % 0; Promyelocytes % 0; Reactive Lymphocytes 0
[2023-05-21 21:22] LABS: Band Neutrophils % (manual) 12; Lymphocytes % (manual) 5 (10.0-50.0); Monocytes % (manual) 2 (0-12)
[2023-05-21 21:23] LABS: Platelet Estimate Adequate
[2023-05-21] MEDS: MORPHINE SULFATE INJ 2 MG/ml SYRG IV PRN (21:53)
[2023-05-21] MEDS: SODIUM BICARB 50mEq/50ml Vial 150 ML in D5W 5% 1,000 ML IV SCH (22:15)
[2023-05-21 22:27] LABS: Rapid Influenza A Negative (Negative)
[2023-05-21 22:28] LABS: COVID19 ANTIGEN SOFIA FIA NEGATIVE (NEGATIVE); Rapid Influenza B Negative (Negative)
[2023-05-21] MEDS: POTASSIUM PHOSPHATE 44 MEQ in D5W 5% 250 ML IV ONE (23:00)
[2023-05-22] VITALS (57 sets, daily range): BP systolic 87–181; BP diastolic 40–82; PULSE 73–103; RESP 12–24; TEMP 98–98.5; O2SAT 92–100
[2023-05-22] MEDS: SODIUM BICARB 8.4% 50Meq/50ml SYR Vial IV ONE (00:09)
[2023-05-22] MEDS: SODIUM CHLORIDE 0.9% 1,000 ML IV SCH (01:30)
[2023-05-22 02:09] LABS: Potassium 3.4 mmol/L (3.5-5.1); Sodium 142 mmol/L (136-145)
[2023-05-22 02:10] LABS: Anion Gap 12 (5-15); Carbon Dioxide 18 mmol/L (20-30)
[2023-05-22 02:12] LABS: Chloride 112 mmol/L (98-107)
[2023-05-22 02:15] LABS: BUN/Creatinine Ratio 9.4 (10.0-20.0); Blood Urea Nitrogen 12 mg/dL (9-23); Glucose 262 mg/dL (74-106)
[2023-05-22 04:31] LABS: Basophils # (auto) 0 10 ^3/uL (0-0.2); Eosinophils # (auto) 0 10 ^3/uL (0-0.8); Hemoglobin 9.3 g/dL (12.2-16.2); Monocytes # (auto) 0.7 10 ^3/uL (0-1.3)
[2023-05-22 04:34] LABS: Basophils % (auto) 0.4 % (0.0-2.0); Eosinophils % (auto) 0.2 % (0.0-7.0); Hematocrit 30.9 % (36.0-46.0); Lymphocytes # (auto) 1.9 10 ^3/uL (0.4-5.4); Lymphocytes % (auto) 15.7 % (10.0-50.0); Mean Corpuscular Hemoglobin 27.4 pg (28.0-32.0); Mean Corpuscular Hgb Conc. 30.1 g/dL (32.0-36.0); Mean Corpuscular Volume 91.1 fL (80.0-100.0); Monocytes % (auto) 5.6 % (0.0-12.0); Neutrophils # (auto) 9.6 10 ^3/uL (1.6-8.6); Neutrophils % (auto) 78.1 % (37.0-80.0); White Blood Cell 12.3 10^3/uL (4.4-10.8)
[2023-05-22] MEDS: D5W/SOD CHL 0.45% 1,000 ML IV SCH ×3 (04:45→11:00)
[2023-05-22] MEDS: DEXTROSE (50%) 50ML SYRG IV PRN (05:39)
[2023-05-22] MEDS: POTASSIUM CHL 20MEQ/100ML 100 ML IV ONE (05:45)
[2023-05-22 06:02] LABS: Alanine Aminotransferase 31 U/L (7-40); Albumin 3.2 g/dL (3.2-4.8); Alkaline Phosphatase 289 U/L (46-116); Anion Gap 14 (5-15); Aspartate Aminotransferase 62 U/L (13-40); BUN/Creatinine Ratio 8.7 (10.0-20.0); Blood Urea Nitrogen 10 mg/dL (9-23); Carbon Dioxide 16 mmol/L (20-30); Chloride 114 mmol/L (98-107); Glucose 146 mg/dL (74-106); Potassium 3.1 mmol/L (3.5-5.1); Sodium 144 mmol/L (136-145)
[2023-05-22 06:03] LABS: Bilirubin, Total < 0.2 mg/dL (0.2-1.0); Total Protein 5.4 g/dL (5.7-8.2)
[2023-05-22] MEDS: ACCU-CHEK COMFORT CURVE STRIP VI SCH (07:24)
[2023-05-22] MEDS: ENOXAPARIN SOD 40 MG/0.4 ML SYRINGE SC SCH (07:24)
[2023-05-22] MEDS: InsuLIN REG 1unit/0.01ml Soln (100units/ml) SC SCH (07:24)
[2023-05-22] MEDS: INSULIN LANTUS (GLARGINE) 1 /0.01ml (100units/ml) SC SCH (08:37)
[2023-05-22 09:20] LABS: Chloride 112 mmol/L (98-107); Sodium 145 mmol/L (136-145)
[2023-05-22 09:21] LABS: Anion Gap 11 (5-15); Calcium 8.3 mg/dL (8.7-10.4); Carbon Dioxide 22 mmol/L (20-30)
[2023-05-22 09:26] LABS: BUN/Creatinine Ratio 12.4 (10.0-20.0); Blood Urea Nitrogen 13 mg/dL (9-23); Glucose 117 mg/dL (74-106)
[2023-05-22 10:21] LABS: Lactic Acid w/Reflex 4.1 mmol/L (0.4-2.0)
[2023-05-22] MEDS: SODIUM CHLORIDE 0.9% 2,450 ML IV ONE (10:45)
[2023-05-22] MEDS: cefTRIAXone 1GM/50ML D5W 50 ML IV ONE (11:00)
[2023-05-22] MEDS: MORPHINE SULFATE INJ 2 MG/ml SYRG IM ONE (11:00)
[2023-05-22 11:35] LABS: Urine Bacteria NONE SEEN /hpf (None Seen); Urine Blood 2+ /uL (Negative); Urine Budding Yeast MODERATE /hpf (None Seen); Urine Clarity HAZY (Clear); Urine Color Yellow (Yellow); Urine Hyaline Cast FEW /lpf (0 - 2); Urine Protein, UAD 2+ (Negative); Urine Specific Gravity 1.015 (1.001-1.035); Urine Urobilinogen Normal (Negative); Urine WBC 183 /hpf (0 - 5); Urine pH 6.5 (5.0-8.0)
[2023-05-22] MEDS: POTASSIUM CHL 20MEQ/100ML 100 ML IV SCH (11:50)
[2023-05-22] MEDS: hydrALAZINE HCL 20 MG/ML VL IV PRN (13:34)
[2023-05-22] MEDS: MORPHINE SULFATE INJ 2 MG/ml SYRG IV PRN (14:18)
[2023-05-22] MEDS ORDERED: LACTULOSE 20Gm/30ML SOLN PO PRN (16:15)
[2023-05-22] MEDS: FUROSEMIDE 40 MG/4 ML VIAL IV ONE (16:30)
[2023-05-22 17:25] LABS: Alanine Aminotransferase 29 U/L (7-40); Albumin 3.1 g/dL (3.2-4.8); Alkaline Phosphatase 264 U/L (46-116); Anion Gap 9 (5-15); Aspartate Aminotransferase 59 U/L (13-40); BUN/Creatinine Ratio 8.3 (10.0-20.0); Bilirubin, Total < 0.2 mg/dL (0.2-1.0); Blood Urea Nitrogen 7 mg/dL (9-23); Calcium 7.5 mg/dL (8.7-10.4); Carbon Dioxide 17 mmol/L (20-30); Chloride 113 mmol/L (98-107); Glucose 297 mg/dL (74-106); Potassium 4.2 mmol/L (3.5-5.1); Sodium 139 mmol/L (136-145); Total Protein 5.3 g/dL (5.7-8.2)
[2023-05-22] MEDS: LORazepam 2MG/ML-1ML VIAL IV PRN (20:03)
[2023-05-22] MEDS ORDERED: ACETAMINOPHEN 325 MG TAB PO PRN (20:30)
[2023-05-23] VITALS (59 sets, daily range): BP systolic 84–159; BP diastolic 46–80; PULSE 61–100; RESP 9–21; TEMP 97.7–98.7; O2SAT 90–100
[2023-05-23 04:14] LABS: Alanine Aminotransferase 29 U/L (7-40); Albumin 2.9 g/dL (3.2-4.8); Alkaline Phosphatase 262 U/L (46-116); Anion Gap 10 (5-15); Aspartate Aminotransferase 60 U/L (13-40); BUN/Creatinine Ratio 7.8 (10.0-20.0); Blood Urea Nitrogen 6 mg/dL (9-23); Calcium 7.8 mg/dL (8.7-10.4); Carbon Dioxide 20 mmol/L (20-30); Chloride 110 mmol/L (98-107); Glucose 139 mg/dL (74-106); Magnesium 1.6 mg/dL (1.6-2.6); Potassium 3.8 mmol/L (3.5-5.1); Sodium 140 mmol/L (136-145)
[2023-05-23 04:15] LABS: Bilirubin, Total < 0.2 mg/dL (0.2-1.0)
[2023-05-23 06:32] LABS: Basophils # (auto) 0 10 ^3/uL (0-0.2); Basophils % (auto) 0.3 % (0.0-2.0); Eosinophils # (auto) 0.1 10 ^3/uL (0-0.8); Eosinophils % (auto) 1.5 % (0.0-7.0); Hematocrit 32.2 % (36.0-46.0); Hemoglobin 10.1 g/dL (12.2-16.2); Lymphocytes # (auto) 1.7 10 ^3/uL (0.4-5.4); Lymphocytes % (auto) 21.2 % (10.0-50.0); Mean Corpuscular Hgb Conc. 31.2 g/dL (32.0-36.0); Mean Corpuscular Volume 86.6 fL (80.0-100.0); Monocytes # (auto) 0.4 10 ^3/uL (0-1.3); Monocytes % (auto) 4.4 % (0.0-12.0); Neutrophils # (auto) 5.9 10 ^3/uL (1.6-8.6); Neutrophils % (auto) 72.6 % (37.0-80.0); Nucleated Red Blood Cells % 0.2 %; Red Blood Cells 3.72 10^6/uL (4.0-5.20); Red Cell Distribution Width 18.3 % (11.8-14.3); White Blood Cell 8.1 10^3/uL (4.4-10.8)
[2023-05-23] MEDS: cefTRIAXone 1GM/50ML D5W 50 ML IV SCH (09:51)
[2023-05-23] MEDS: OXYCODONE W/ ACETAMINOPHEN 5/325MG TABLET ONE (11:55)
[2023-05-23] MEDS: OXYCODONE W/ ACETAMINOPHEN 5/325MG TABLET PO PRN (18:47)
[2023-05-24] VITALS (35 sets, daily range): BP systolic 88–152; BP diastolic 43–80; PULSE 61–85; RESP 9–16; TEMP 98–98.7; O2SAT 95–100
[2023-05-24] MEDS: SODIUM CHLORIDE 0.9% 1,000 ML IV SCH ×2 (15:15→15:51)
[2023-05-24] MEDS: FLUCONAZOLE 200MG/100ML 100 ML IV ONE (15:51)
[2023-05-24] MEDS: LEVOTHYROXINE SODIUM 50 MCG TAB PO ONE (15:52)
[2023-05-24] MEDS: NICOTINE 21MG/24 HR TOPICAL PATCH TD ONE (15:52)
[2023-05-24] MEDS: OXYCODONE W/ ACETAMINOPHEN 5/325MG TABLET PO PRN (15:57)
[2023-05-25] VITALS (9 sets, daily range): BP systolic 131–153; BP diastolic 62–75; PULSE 16–84; RESP 13–19; TEMP 97–98.4; O2SAT 92–98
[2023-05-25] MEDS: LEVOTHYROXINE SODIUM 50 MCG TAB PO SCH (06:21)
[2023-05-25 06:42] LABS: Basophils # (auto) 0.1 10 ^3/uL (0-0.2); Basophils % (auto) 1.3 % (0.0-2.0); Eosinophils # (auto) 0.1 10 ^3/uL (0-0.8); Hematocrit 29.3 % (36.0-46.0); Hemoglobin 9.2 g/dL (12.2-16.2); Lymphocytes # (auto) 1.6 10 ^3/uL (0.4-5.4); Lymphocytes % (auto) 21.8 % (10.0-50.0); Mean Corpuscular Hemoglobin 26.8 pg (28.0-32.0); Mean Corpuscular Hgb Conc. 31.3 g/dL (32.0-36.0); Mean Corpuscular Volume 85.5 fL (80.0-100.0); Monocytes # (auto) 0.3 10 ^3/uL (0-1.3); Monocytes % (auto) 3.5 % (0.0-12.0); Neutrophils # (auto) 5.2 10 ^3/uL (1.6-8.6); Neutrophils % (auto) 72.4 % (37.0-80.0); Nucleated Red Blood Cells % 0.1 %; Red Blood Cells 3.43 10^6/uL (4.0-5.20); Red Cell Distribution Width 18.5 % (11.8-14.3); White Blood Cell 7.2 10^3/uL (4.4-10.8)
[2023-05-25 07:10] LABS: Alanine Aminotransferase 37 U/L (7-40); Albumin 2.9 g/dL (3.2-4.8); Alkaline Phosphatase 309 U/L (46-116); Anion Gap 7 (5-15); Aspartate Aminotransferase 73 U/L (13-40); Bilirubin, Total 0.2 mg/dL (0.2-1.0); Calcium 8.1 mg/dL (8.5-10.1); Carbon Dioxide 22 mmol/L (20-30); Chloride 112 mmol/L (98-107); Glucose 126 mg/dL (74-106); Potassium 3.5 mmol/L (3.5-5.1); Sodium 141 mmol/L (136-145); Total Protein 4.9 g/dL (5.7-8.2)
[2023-05-25 07:13] LABS: BUN/Creatinine Ratio 8.1 (10.0-20.0); Blood Urea Nitrogen < 5 mg/dL (9-23)
[2023-05-25] MEDS: NICOTINE 21MG/24 HR TOPICAL PATCH TD SCH (08:42)
[2023-05-25] MEDS ORDERED: hydrALAZINE HCL 20 MG/ML VL IV PRN (10:00)
[2023-05-25] MEDS: FLUCONAZOLE 200MG/100ML 100 ML IV SCH (10:37)
[2023-05-25] MEDS: Glucerna Carbsteady SHAKE Stawberry 8oz PO SCH (12:00)
[2023-05-25] MEDS: GABAPENTIN 300 MG CAP PO SCH (13:55)
[2023-05-25] MEDS: INSULIN LANTUS (GLARGINE) 1 /0.01ml (100units/ml) SC SCH (21:55)
[2023-05-26 05:00] VITALS: BP 155/73; PULSE 80; RESP 18; TEMP 98.4; O2SAT 95
[2023-05-26 05:26] VITALS: BP 142/87
[2023-05-26 05:45] LABS: Basophils # (auto) 0 10 ^3/uL (0-0.2); Basophils % (auto) 0.5 % (0.0-2.0); Eosinophils # (auto) 0.2 10 ^3/uL (0-0.8); Hematocrit 28.4 % (36.0-46.0); Hemoglobin 9.1 g/dL (12.2-16.2); Lymphocytes # (auto) 1.6 10 ^3/uL (0.4-5.4); Lymphocytes % (auto) 26.8 % (10.0-50.0); Mean Corpuscular Hemoglobin 27.6 pg (28.0-32.0); Mean Corpuscular Hgb Conc. 32.2 g/dL (32.0-36.0); Mean Corpuscular Volume 85.9 fL (80.0-100.0); Monocytes # (auto) 0.3 10 ^3/uL (0-1.3); Monocytes % (auto) 5.3 % (0.0-12.0); Neutrophils # (auto) 3.9 10 ^3/uL (1.6-8.6); Neutrophils % (auto) 64.4 % (37.0-80.0); Nucleated Red Blood Cells % 0.1 %; Red Cell Distribution Width 18.2 % (11.8-14.3); White Blood Cell 6.1 10^3/uL (4.4-10.8)
[2023-05-26 05:51] LABS: Anion Gap 6 (5-15); Carbon Dioxide 26 mmol/L (20-30); Chloride 111 mmol/L (98-107); Potassium 3.5 mmol/L (3.5-5.1); Sodium 143 mmol/L (136-145)
[2023-05-26 05:52] LABS: Calcium 8.4 mg/dL (8.5-10.1)
[2023-05-26 05:57] LABS: Glucose 76 mg/dL (74-106)
[2023-05-26 06:00] LABS: % Iron Saturation 8.9 % (15-50)
[2023-05-26 06:04] LABS: BUN/Creatinine Ratio 7.9 (10.0-20.0); Blood Urea Nitrogen < 5 mg/dL (9-23)
[2023-05-26 07:38] VITALS: BP 130/66; PULSE 75; RESP 17; TEMP 97.6; O2SAT 96
[2023-05-26 08:00] VITALS: PULSE 67; RESP 18
[2023-05-26] MEDS ORDERED: INSLANTI SC (09:43)
[2023-05-26] MEDS ORDERED: INSU100I49 SC (09:43)
[2023-05-26 13:17] VITALS: BP_SYST 134; BP_SYST 136; BP_DIAS 56; BP_DIAS 64; PULSE 76; PULSE 79; RESP 16; RESP 18; TEMP 36.8; O2SAT 96; O2SAT 98
[2023-05-26 16:28] VITALS: BP 145/69; PULSE 86; RESP 16; TEMP 98.6; O2SAT 98
== END 2023-05-26 16:25 | disposition home or self-care (01) | DRG 637 ==
LOC: UNDOADMIN 18:41 → ICU WEST 18:41 → TELE-CENTR 05-25 02:29
PROVIDERS: ADMIT Internal Medicine; ATTEND Internal Medicine
DX: E11.10 Type 2 diabetes mellitus with ketoacidosis without coma (principal); G93.41 Metabolic encephalopathy; N17.0 Acute kidney failure with tubular necrosis; N39.0 Urinary tract infection, site not specified; Z68.31 Body mass index [BMI] 31.0-31.9, adult; Z20.822 Contact with and (suspected) exposure to COVID-19; E03.9 Hypothyroidism, unspecified; E11.40 Type 2 diabetes mellitus with diabetic neuropathy, unspecified; E66.9 Obesity, unspecified; G89.29 Other chronic pain; J44.9 Chronic obstructive pulmonary disease, unspecified; Z72.0 Tobacco use; Z79.4 Long term (current) use of insulin
CPT/HCPCS: 36415; 36600; 70450; 74176; 80048; 80053; 81001; 82010; 82140; 82607; 82805; 82962; 83036; 83540; 83550; 83605; 83735; 83930; 84100; 84443; 85007; 85025; 85027; 87040; 87081; 87086; 87088; 87426; 87804; 92610; 97110; 97116; 97163; 97530; G0378; J1450; J1815; J3480; J7060

== ENCOUNTER 2023-10-07 18:21 | Inpatient (IN) | payer OTHER ==
[2023-10-07] VITALS (7 sets, daily range): BP systolic 80–118; BP diastolic 40–61; PULSE 78–87; RESP 13–21; TEMP 97.1–97.4; O2SAT 94–99
[~2023-10-07] VITALS: Ht 157.5 cm; Wt 91.5 kg
[~2023-10-07 18:21] MED LIST changes: +INSU100I49 SC
[2023-10-07] MEDS ORDERED: DOCUSATE SOD 100 MG CAP PO PRN (21:00)
[2023-10-07] MEDS: SODIUM CHLORIDE 0.9% 1,000 ML IV SCH (21:00)
[2023-10-07] MEDS: INSULIN LANTUS (GLARGINE) 1 /0.01ml (100units/ml) SC ONE (21:00)
[2023-10-07] MEDS ORDERED: DEXTROSE (50%) 50ML SYRG IV PRN (21:00)
[2023-10-07] MEDS: ACCU-CHEK COMFORT CURVE STRIP VI SCH (21:00)
[2023-10-07] MEDS ORDERED: ONDANSETRON HCL 4 MG/2 ML VIAL IV PRN (21:00)
[2023-10-07 21:22] LABS: Base Excess -3.9 mmol/L (-2.0-2.0)
[2023-10-07] MEDS: INSULIN DRIP 100 UNIT/100ML 100 ML IV SCH (21:24)
[2023-10-07] MEDS: SODIUM CHLOR 0.9% PF (SALINE LOCK) 10ML VIAL/SYR IV SCH (22:04)
[2023-10-07 22:37] LABS: Basophils # (auto) 0 10 ^3/uL (0-0.2); Basophils % (auto) 0.1 % (0.0-2.0); Eosinophils # (auto) 0 10 ^3/uL (0-0.8); Eosinophils % (auto) 0.1 % (0.0-7.0); Hematocrit 34.4 % (36.0-46.0); Hemoglobin 11.2 g/dL (12.2-16.2); Lymphocytes # (auto) 1.7 10 ^3/uL (0.4-5.4); Lymphocytes % (auto) 11.9 % (10.0-50.0); Mean Corpuscular Hemoglobin 30.4 pg (28.0-32.0); Mean Corpuscular Hgb Conc. 32.7 g/dL (32.0-36.0); Mean Corpuscular Volume 93.1 fL (80.0-100.0); Monocytes # (auto) 0.5 10 ^3/uL (0-1.3); Monocytes % (auto) 3.6 % (0.0-12.0); Neutrophils # (auto) 12.1 10 ^3/uL (1.6-8.6); Neutrophils % (auto) 84.3 % (37.0-80.0); Red Blood Cells 3.69 10^6/uL (4.0-5.20); Red Cell Distribution Width 18.4 % (11.8-14.3); White Blood Cell 14.4 10^3/uL (4.4-10.8)
[2023-10-07 22:54] LABS: Alanine Aminotransferase 90 U/L (7-40); Albumin 3.8 g/dL (3.2-4.8); Alkaline Phosphatase 383 U/L (46-116); Anion Gap 14 (5-15); Aspartate Aminotransferase 203 U/L (13-40); Blood Urea Nitrogen 16 mg/dL (9-23); Calcium 9.2 mg/dL (8.7-10.4); Carbon Dioxide 20 mmol/L (20-30); Chloride 101 mmol/L (98-107); Glucose 139 mg/dL (74-106); LDL Cholesterol 55 mg/dL (< 100); Magnesium 2.1 mg/dL (1.6-2.6); Potassium 4.2 mmol/L (3.5-5.1); Sodium 135 mmol/L (136-145); Triglycerides 195 mg/dL (< 150)
[2023-10-07 22:55] LABS: Bilirubin, Total 0.3 mg/dL (0.2-1.0); Cholesterol 117 mg/dL (< 200); HDL Cholesterol 41 mg/dL (40-59); Total Protein 6.5 g/dL (5.7-8.2)
[2023-10-07 22:57] LABS: Lactic Acid w/Reflex 6.6 mmol/L (0.4-2.0)
[2023-10-08] VITALS (16 sets, daily range): BP systolic 91–123; BP diastolic 37–68; PULSE 83–104; RESP 10–21; TEMP 97.4–103; O2SAT 93–100
[2023-10-08] MEDS: InsuLIN REG 1unit/0.01ml Soln (100units/ml) SC SCH
[2023-10-08] MEDS: HYDROmorphone HCL 2 MG/ML VL/or syr IV PRN (00:06)
[2023-10-08] MEDS: SODIUM CHLORIDE 0.9% 1,000 ML IV SCH ×2 (00:09→02:53)
[2023-10-08 00:34] LABS: Urine Bacteria MOD /hpf (None Seen); Urine Blood TRACE /uL (Negative); Urine Clarity Turbid (Clear); Urine Color Light-Yellow (Yellow); Urine Protein, UAD 1+ (Negative); Urine Specific Gravity 1.021 (1.001-1.035); Urine Urobilinogen Normal (Negative); Urine WBC 33 /hpf (0 - 5); Urine pH 5.5 (5.0-9.0)
[2023-10-08 03:03] LABS: Chloride 105 mmol/L (98-107); Potassium 4.8 mmol/L (3.5-5.1); Sodium 135 mmol/L (136-145)
[2023-10-08 03:04] LABS: Anion Gap 8 (5-15); Carbon Dioxide 22 mmol/L (20-30)
[2023-10-08 03:05] LABS: Calcium 8.4 mg/dL (8.7-10.4)
[2023-10-08 03:09] LABS: BUN/Creatinine Ratio 10.2 (10.0-20.0); Blood Urea Nitrogen 15 mg/dL (9-23); Glucose 165 mg/dL (74-106)
[2023-10-08] MEDS ORDERED: cefTRIAXone 1GM/50ML D5W 50 ML IV ONE (08:15)
[2023-10-08] MEDS: cefTRIAXone 1GM/50ML D5W 50 ML IV SCH (11:18)
[2023-10-08] MEDS: PANTOPRAZOLE 40 MG/10 ML VIAL INJ IV SCH (11:25)
[2023-10-08] MEDS: ENOXAPARIN SOD 40 MG/0.4 ML SYRINGE SC SCH (11:25)
[2023-10-08] MEDS: PREGABALIN CAPSULE 75 MG CAP PO SCH (11:26)
[2023-10-08] MEDS: INSULIN LANTUS (GLARGINE) 1 /0.01ml (100units/ml) SC SCH (11:35)
[2023-10-08 11:39] LABS: Basophils # (auto) 0 10 ^3/uL (0-0.2); Basophils % (auto) 0.2 % (0.0-2.0); Eosinophils # (auto) 0.1 10 ^3/uL (0-0.8); Eosinophils % (auto) 0.4 % (0.0-7.0); Hematocrit 32.3 % (36.0-46.0); Hemoglobin 10.7 g/dL (12.2-16.2); Lymphocytes # (auto) 1.3 10 ^3/uL (0.4-5.4); Lymphocytes % (auto) 9.9 % (10.0-50.0); Mean Corpuscular Hemoglobin 30.5 pg (28.0-32.0); Mean Corpuscular Volume 92.4 fL (80.0-100.0); Monocytes # (auto) 0.4 10 ^3/uL (0-1.3); Monocytes % (auto) 3.2 % (0.0-12.0); Neutrophils # (auto) 11.7 10 ^3/uL (1.6-8.6); Neutrophils % (auto) 86.3 % (37.0-80.0); Nucleated Red Blood Cells % 0.1 %; Red Cell Distribution Width 18.6 % (11.8-14.3); White Blood Cell 13.5 10^3/uL (4.4-10.8)
[2023-10-08 11:45] LABS: Lactic Acid w/Reflex 3.2 mmol/L (0.4-2.0)
[2023-10-08 11:52] LABS: Alanine Aminotransferase 86 U/L (7-40); Alkaline Phosphatase 306 U/L (46-116); Anion Gap 9 (5-15); Aspartate Aminotransferase 265 U/L (13-40); BUN/Creatinine Ratio 13.5 (10.0-20.0); Bilirubin, Total 0.4 mg/dL (0.2-1.0); Blood Urea Nitrogen 17 mg/dL (9-23); Carbon Dioxide 21 mmol/L (20-30); Chloride 107 mmol/L (98-107); Glucose 248 mg/dL (74-106); Magnesium 1.9 mg/dL (1.6-2.6); Phosphorus 2.1 mg/dL (2.4-5.1); Potassium 4.7 mmol/L (3.5-5.1); Sodium 137 mmol/L (136-145)
[2023-10-08 11:53] LABS: Total Protein 5.1 g/dL (5.7-8.2)
[2023-10-08 11:54] LABS: INR 1.08 (0.9-1.15); Partial Thromboplastin Time 24.4 SEC (24.5-34.5); Prothrombin Time 11.4 sec (9.3-11.8)
[2023-10-08] MEDS: ERGOCALCIFEROL 50,000 UNIT(1.25MG) CAP PO SCH (13:56)
[2023-10-08] MEDS ORDERED: PRAM0.757 PO (15:10)
[2023-10-08] MEDS ORDERED: ATOR20TA50 PO (15:12)
[2023-10-08] MEDS ORDERED: PREG150C63 PO (15:12)
[2023-10-08] MEDS ORDERED: LISI10TA34 PO (15:12)
[2023-10-08] MEDS ORDERED: DEXTROSE (50%) 50ML SYRG IV PRN (16:30)
[2023-10-08 16:50] LABS: Basophils # (auto) 0 10 ^3/uL (0-0.2); Basophils % (auto) 0.3 % (0.0-2.0); Eosinophils # (auto) 0.1 10 ^3/uL (0-0.8); Eosinophils % (auto) 0.6 % (0.0-7.0); Hematocrit 32.4 % (36.0-46.0); Hemoglobin 10.6 g/dL (12.2-16.2); Lymphocytes # (auto) 0.8 10 ^3/uL (0.4-5.4); Lymphocytes % (auto) 7.2 % (10.0-50.0); Mean Corpuscular Hemoglobin 30.1 pg (28.0-32.0); Mean Corpuscular Hgb Conc. 32.7 g/dL (32.0-36.0); Mean Corpuscular Volume 92.1 fL (80.0-100.0); Monocytes # (auto) 0.3 10 ^3/uL (0-1.3); Monocytes % (auto) 2.7 % (0.0-12.0); Neutrophils # (auto) 10.3 10 ^3/uL (1.6-8.6); Neutrophils % (auto) 89.2 % (37.0-80.0); Nucleated Red Blood Cells % 0.1 %; Red Blood Cells 3.52 10^6/uL (4.0-5.20); Red Cell Distribution Width 18.8 % (11.8-14.3); White Blood Cell 11.6 10^3/uL (4.4-10.8)
[2023-10-08 17:06] LABS: Alanine Aminotransferase 92 U/L (7-40); Alkaline Phosphatase 300 U/L (46-116); Anion Gap 9 (5-15); Aspartate Aminotransferase 317 U/L (13-40); BUN/Creatinine Ratio 16.2 (10.0-20.0); Blood Urea Nitrogen 19 mg/dL (9-23); Calcium 7.7 mg/dL (8.7-10.4); Carbon Dioxide 19 mmol/L (20-30); Chloride 108 mmol/L (98-107); Glucose 219 mg/dL (74-106); Magnesium 1.8 mg/dL (1.6-2.6); Potassium 4.6 mmol/L (3.5-5.1); Sodium 136 mmol/L (136-145)
[2023-10-08 17:07] LABS: Albumin 2.8 g/dL (3.2-4.8); Bilirubin, Total 0.4 mg/dL (0.2-1.0); Phosphorus 1.9 mg/dL (2.4-5.1); Total Protein 4.9 g/dL (5.7-8.2)
[2023-10-08 17:11] LABS: Lactic Acid w/Reflex 3.2 mmol/L (0.4-2.0)
[2023-10-08] MEDS: MAGNESIUM SULFATE 1GM/100ML 100 ML IV ONE (19:38)
[2023-10-08] MEDS: ACCU-CHEK COMFORT CURVE STRIP VI SCH (20:00)
[2023-10-08] MEDS: ACETAMINOPHEN 325 MG TAB PO PRN (20:29)
[2023-10-08] MEDS: SODIUM PHOSPHATES 20 MEQ in SODIUM CHL 0.9% 100 ML IV ONE (21:45)
[2023-10-09] VITALS (8 sets, daily range): BP systolic 80–115; BP diastolic 38–56; PULSE 77–96; RESP 15–20; TEMP 98–100.4; O2SAT 93–98
[2023-10-09 01:05] LABS: Lactic Acid w/Reflex 4.1 mmol/L (0.4-2.0)
[2023-10-09] MEDS: SODIUM CHLORIDE 0.9% 500 ML IV ONE ×2 (01:40→09:53)
[2023-10-09 04:22] LABS: Alanine Aminotransferase 110 U/L (7-40); Alkaline Phosphatase 331 U/L (46-116); Anion Gap 9 (5-15); Aspartate Aminotransferase 381 U/L (13-40); BUN/Creatinine Ratio 10.9 (10.0-20.0); Blood Urea Nitrogen 14 mg/dL (9-23); Carbon Dioxide 18 mmol/L (20-30); Chloride 108 mmol/L (98-107); Glucose 152 mg/dL (74-106); Potassium 4.4 mmol/L (3.5-5.1); Sodium 135 mmol/L (136-145)
[2023-10-09 04:23] LABS: Albumin 3.1 g/dL (3.2-4.8); Bilirubin, Total 0.7 mg/dL (0.2-1.0); Total Protein 5.6 g/dL (5.7-8.2)
[2023-10-09 04:27] LABS: Lactic Acid w/Reflex 3.5 mmol/L (0.4-2.0)
[2023-10-09] MEDS: IBUPROFEN 400 MG TAB PO PRN (05:10)
[2023-10-09] MEDS: LEVOTHYROXINE SODIUM 50 MCG TAB PO SCH (06:06)
[2023-10-09] MEDS: LEVOTHYROXINE SODIUM 100 MCG TAB PO SCH (06:06)
[2023-10-09 06:57] LABS: Basophils # (auto) 0 10 ^3/uL (0-0.2); Basophils % (auto) 0.3 % (0.0-2.0); Eosinophils # (auto) 0.1 10 ^3/uL (0-0.8); Eosinophils % (auto) 0.9 % (0.0-7.0); Hematocrit 30.3 % (36.0-46.0); Hemoglobin 9.5 g/dL (12.2-16.2); Lymphocytes # (auto) 1.2 10 ^3/uL (0.4-5.4); Lymphocytes % (auto) 11.8 % (10.0-50.0); Mean Corpuscular Hemoglobin 30.3 pg (28.0-32.0); Mean Corpuscular Hgb Conc. 31.4 g/dL (32.0-36.0); Mean Corpuscular Volume 96.5 fL (80.0-100.0); Monocytes # (auto) 0.2 10 ^3/uL (0-1.3); Monocytes % (auto) 2.4 % (0.0-12.0); Neutrophils # (auto) 8.6 10 ^3/uL (1.6-8.6); Neutrophils % (auto) 84.6 % (37.0-80.0); Nucleated Red Blood Cells % 0.1 %; Red Blood Cells 3.14 10^6/uL (4.0-5.20); Red Cell Distribution Width 19.6 % (11.8-14.3); White Blood Cell 10.2 10^3/uL (4.4-10.8)
[2023-10-09 07:12] LABS: Alanine Aminotransferase 93 U/L (7-40); Albumin 2.6 g/dL (3.2-4.8); Alkaline Phosphatase 285 U/L (46-116); Anion Gap 9 (5-15); Aspartate Aminotransferase 312 U/L (13-40); BUN/Creatinine Ratio 12.8 (10.0-20.0); Blood Urea Nitrogen 15 mg/dL (9-23); Calcium 7.3 mg/dL (8.7-10.4); Carbon Dioxide 17 mmol/L (20-30); Chloride 109 mmol/L (98-107); Glucose 117 mg/dL (74-106); Sodium 135 mmol/L (136-145)
[2023-10-09 07:13] LABS: Bilirubin, Total 0.4 mg/dL (0.2-1.0); Phosphorus 3.1 mg/dL (2.4-5.1); Total Protein 4.4 g/dL (5.7-8.2)
[2023-10-09 07:39] LABS: Lactic Acid w/Reflex 4.2 mmol/L (0.4-2.0)
[2023-10-09] MEDS: SODIUM CHLORIDE 0.9% 1,000 ML IV SCH (11:15)
[2023-10-09 12:52] LABS: Lactic Acid w/Reflex 3.3 mmol/L (0.4-2.0)
[2023-10-09] MEDS: MEROPENEM 1GM IVPB 50 ML IV SCH (16:59)
[2023-10-09 22:09] LABS: Lactic Acid w/Reflex 3.3 mmol/L (0.4-2.0)
[2023-10-10] VITALS (8 sets, daily range): BP systolic 101–118; BP diastolic 42–65; PULSE 69–89; RESP 17–20; TEMP 98–98.9; O2SAT 98–99
[2023-10-10 00:48] LABS: Lactic Acid w/Reflex 2.8 mmol/L (0.4-2.0)
[2023-10-10 04:57] LABS: COVID19 ANTIGEN SOFIA FIA NEGATIVE (NEGATIVE); Rapid Influenza A Negative (Negative); Rapid Influenza B Negative (Negative)
[2023-10-10 05:38] LABS: Basophils # (auto) 0 10 ^3/uL (0-0.2); Basophils % (auto) 0.6 % (0.0-2.0); Eosinophils # (auto) 0.4 10 ^3/uL (0-0.8); Eosinophils % (auto) 4.7 % (0.0-7.0); Hematocrit 29.7 % (36.0-46.0); Hemoglobin 9.5 g/dL (12.2-16.2); Lymphocytes # (auto) 1.2 10 ^3/uL (0.4-5.4); Lymphocytes % (auto) 15.3 % (10.0-50.0); Mean Corpuscular Volume 93.8 fL (80.0-100.0); Monocytes # (auto) 0.2 10 ^3/uL (0-1.3); Monocytes % (auto) 2.2 % (0.0-12.0); Neutrophils # (auto) 6.1 10 ^3/uL (1.6-8.6); Neutrophils % (auto) 77.2 % (37.0-80.0); Nucleated Red Blood Cells % 0.1 %; Red Blood Cells 3.17 10^6/uL (4.0-5.20); Red Cell Distribution Width 19.5 % (11.8-14.3); White Blood Cell 7.9 10^3/uL (4.4-10.8)
[2023-10-10 05:55] LABS: Alanine Aminotransferase 89 U/L (7-40); Albumin 2.5 g/dL (3.2-4.8); Alkaline Phosphatase 334 U/L (46-116); Anion Gap 7 (5-15); Aspartate Aminotransferase 224 U/L (13-40); BUN/Creatinine Ratio 15.5 (10.0-20.0); Bilirubin, Total 0.4 mg/dL (0.2-1.0); Blood Urea Nitrogen 17 mg/dL (9-23); Calcium 7.5 mg/dL (8.7-10.4); Carbon Dioxide 18 mmol/L (20-30); Chloride 108 mmol/L (98-107); Glucose 170 mg/dL (74-106); Sodium 133 mmol/L (136-145); Total Protein 4.7 g/dL (5.7-8.2)
[2023-10-10 06:01] LABS: Lactic Acid w/Reflex 2.3 mmol/L (0.4-2.0)
[2023-10-10 09:55] LABS: Lactic Acid w/Reflex 2.5 mmol/L (0.4-2.0)
[2023-10-10 16:20] LABS: Lactic Acid w/Reflex 2.4 mmol/L (0.4-2.0)
[2023-10-10] MEDS: CYANOCOBALAMIN (B-12) 1000 MCG/1 ML VIAL IM ONE (17:49)
[2023-10-10] MEDS: KETOROLAC TROMETH 30 MG/ML 1ML VIAL IV PRN (17:49)
[2023-10-10] MEDS: CALCIUM GLUC 1,000mg/50ml-NS 50 ML IV ONE (17:50)
[2023-10-11] VITALS (8 sets, daily range): BP systolic 107–138; BP diastolic 58–68; PULSE 73–98; RESP 16–18; TEMP 97.3–102; O2SAT 95–98
[2023-10-11 05:49] LABS: Basophils # (auto) 0 10 ^3/uL (0-0.2); Basophils % (auto) 0.5 % (0.0-2.0); Eosinophils # (auto) 0.3 10 ^3/uL (0-0.8); Eosinophils % (auto) 5.6 % (0.0-7.0); Hematocrit 29.3 % (36.0-46.0); Hemoglobin 9.7 g/dL (12.2-16.2); Lymphocytes # (auto) 1.1 10 ^3/uL (0.4-5.4); Lymphocytes % (auto) 17.9 % (10.0-50.0); Mean Corpuscular Hemoglobin 30.4 pg (28.0-32.0); Mean Corpuscular Hgb Conc. 33.3 g/dL (32.0-36.0); Mean Corpuscular Volume 91.4 fL (80.0-100.0); Monocytes # (auto) 0.2 10 ^3/uL (0-1.3); Neutrophils # (auto) 4.2 10 ^3/uL (1.6-8.6); Nucleated Red Blood Cells % 0.1 %; Red Cell Distribution Width 19.1 % (11.8-14.3); White Blood Cell 5.9 10^3/uL (4.4-10.8)
[2023-10-11 05:50] LABS: Calcium 7.9 mg/dL (8.7-10.4); Chloride 108 mmol/L (98-107); Potassium 4.2 mmol/L (3.5-5.1); Sodium 133 mmol/L (136-145)
[2023-10-11 05:51] LABS: Anion Gap 5 (5-15); Carbon Dioxide 20 mmol/L (20-30)
[2023-10-11 05:56] LABS: BUN/Creatinine Ratio 15.6 (10.0-20.0); Blood Urea Nitrogen 15 mg/dL (9-23); Glucose 88 mg/dL (74-106)
[2023-10-11] MEDS: CYANOCOBALAMIN (B-12) 1000 MCG/1 ML VIAL SUBCUT SCH (08:33)
[2023-10-11 10:03] LABS: Hepatitis B Surface Antigen Negative (Negative)
[2023-10-11 10:24] LABS: Hepatitis A Ab IgM Negative; Hepatitis B Core IgM Negative; Hepatitis C Antibody Negative (Negative)
[2023-10-11] MEDS: AMPICILLIN INJ 1 GM in SODIUM CHL 0.9% 100 ML IV ONE (12:40)
[2023-10-11] MEDS: AMPICILLIN INJ 1 GM in SODIUM CHL 0.9% 100 ML IV SCH (14:14)
[2023-10-11 16:27] LABS: Lactic Acid w/Reflex 2.4 mmol/L (0.4-2.0)
[2023-10-12] VITALS (8 sets, daily range): BP systolic 115–149; BP diastolic 61–79; PULSE 69–87; RESP 16–18; TEMP 36.8; O2SAT 96–100
[2023-10-12 06:38] LABS: Chloride 109 mmol/L (98-107); Potassium 4.7 mmol/L (3.5-5.1); Sodium 132 mmol/L (136-145)
[2023-10-12 06:39] LABS: Anion Gap 3 (5-15); Carbon Dioxide 20 mmol/L (20-30)
[2023-10-12 06:40] LABS: Basophils # (auto) 0 10 ^3/uL (0-0.2); Basophils % (auto) 0.6 % (0.0-2.0); Eosinophils # (auto) 0.3 10 ^3/uL (0-0.8); Eosinophils % (auto) 5.2 % (0.0-7.0); Hematocrit 31.4 % (36.0-46.0); Hemoglobin 10.3 g/dL (12.2-16.2); Lymphocytes # (auto) 1.3 10 ^3/uL (0.4-5.4); Lymphocytes % (auto) 24.2 % (10.0-50.0); Mean Corpuscular Hemoglobin 30.5 pg (28.0-32.0); Mean Corpuscular Hgb Conc. 32.7 g/dL (32.0-36.0); Mean Corpuscular Volume 93.2 fL (80.0-100.0); Monocytes # (auto) 0.4 10 ^3/uL (0-1.3); Monocytes % (auto) 8.3 % (0.0-12.0); Neutrophils # (auto) 3.3 10 ^3/uL (1.6-8.6); Neutrophils % (auto) 61.7 % (37.0-80.0); Nucleated Red Blood Cells % 0.1 %; Red Blood Cells 3.37 10^6/uL (4.0-5.20); Red Cell Distribution Width 18.9 % (11.8-14.3); White Blood Cell 5.3 10^3/uL (4.4-10.8)
[2023-10-12 06:44] LABS: BUN/Creatinine Ratio 11.3 (10.0-20.0); Blood Urea Nitrogen 11 mg/dL (9-23); Glucose 135 mg/dL (74-106)
[2023-10-12 06:45] LABS: Magnesium 1.8 mg/dL (1.6-2.6)
[2023-10-12 07:43] LABS: Lactic Acid w/Reflex 2.1 mmol/L (0.4-2.0)
[2023-10-12] MEDS ORDERED: ERGO1CAP23 PO (14:52)
[2023-10-12] MEDS ORDERED: ACET-1882 PO (14:52)
[2023-10-12] MEDS ORDERED: CYAN100060 PO (14:52)
[2023-10-12] MEDS ORDERED: AMOX500T86 PO (14:53)
[2023-10-12] MEDS ORDERED: GLIP10TA9 PO (14:54)
[2023-10-12] MEDS: IBUPROFEN 400 MG TAB PO PRN (16:33)
== END 2023-10-12 17:12 | disposition home health service (06) | DRG 871 ==
LOC: UNDOADMIN 19:52 → DOU IN ICU 19:52 → ICU CENTRL 19:52 → DOU IN ICU 20:59 → ICU CENTRL 10-08 09:13 → DOU IN ICU 10-08 10:39 → TELE-CENTR 10-08 21:24
PROVIDERS: ADMIT Internal Medicine; ATTEND Internal Medicine
PROC: 05HB33Z Insertion of Infusion Device into Right Basilic Vein, Percutaneous Approach (ICD-10-PCS; principal; 2023-10-08)
PROC: B54MZZA Ultrasonography of Right Upper Extremity Veins, Guidance (ICD-10-PCS; 2023-10-08)
DX: A41.51 Sepsis due to Escherichia coli [E. coli] (principal); E11.10 Type 2 diabetes mellitus with ketoacidosis without coma; G93.41 Metabolic encephalopathy; N17.0 Acute kidney failure with tubular necrosis; N39.0 Urinary tract infection, site not specified; G89.4 Chronic pain syndrome; Z20.822 Contact with and (suspected) exposure to COVID-19; I10 Essential (primary) hypertension; J44.9 Chronic obstructive pulmonary disease, unspecified; E03.9 Hypothyroidism, unspecified; R74.01 Elevation of levels of liver transaminase levels; E11.42 Type 2 diabetes mellitus with diabetic polyneuropathy; K74.60 Unspecified cirrhosis of liver; Z87.891 Personal history of nicotine dependence; Z79.899 Other long term (current) drug therapy; Z79.4 Long term (current) use of insulin
CPT/HCPCS: 36415; 36600; 70450; 71045; 76705; 80048; 80053; 80061; 80074; 81001; 82010; 82306; 82607; 82805; 82962; 83036; 83605; 83735; 83930; 84100; 84443; 85025; 85610; 85730; 87040; 87077; 87081; 87186; 87426; 87804; 92610; 93005; 93970; 97163; G0378; J1815; J1885; J2185; J2470

== ENCOUNTER 2023-11-17 12:31 | Inpatient (IN) | payer OTHER ==
[2023-11-17] VITALS (21 sets, daily range): BP systolic 100–134; BP diastolic 40–67; PULSE 63–83; RESP 16–25; TEMP 98.6; O2SAT 95–100
[~2023-11-17] VITALS: Ht 157.5 cm; Wt 68.5 kg
[~2023-11-17 12:31] MED LIST changes: -ACAR25TA PO; +ACET-1882 PO; -ALPR0.5T7 PO; +AMOX500T86 PO; +ATOR20TA50 PO; +CYAN100060 PO; +ERGO1CAP23 PO; -GABA-1250 PO; +GLIP10TA9 PO; -INSU100I24 SC; +LISI10TA34 PO; -PERCOT PO; -PIOG15TA38 PO; -PRAM0.373 PO; +PRAM0.757 PO; +PREG150C63 PO
[2023-11-17] MEDS: MIDAZOLAM DRIP 50 mg/50mL 50 ML IV ONE (19:37)
[2023-11-17] MEDS: NOREPINEPHRINE 8 MG/250ML KIT 250 ML IV ONE (19:37)
[2023-11-17] MEDS ORDERED: HYDROmorphone HCL 2 MG/ML VL/or syr IV PRN (19:45)
[2023-11-17] MEDS ORDERED: DEXTROSE (50%) 50ML SYRG IV PRN ×2 (19:45→22:30)
[2023-11-17] MEDS ORDERED: ONDANSETRON HCL 4 MG/2 ML VIAL IV PRN (19:45)
[2023-11-17] MEDS ORDERED: HYDROcodone-ACET 5/325MG TAB PO PRN (19:45)
[2023-11-17 20:55] LABS: Basophils # (auto) 0 10 ^3/uL (0-0.2); Hemoglobin 8.1 g/dL (12.2-16.2); Monocytes # (auto) 0.4 10 ^3/uL (0-1.3); Neutrophils # (auto) 8.2 10 ^3/uL (1.6-8.6)
[2023-11-17 20:57] LABS: Basophils % (auto) 0.4 % (0.0-2.0); Eosinophils # (auto) 0.1 10 ^3/uL (0-0.8); Eosinophils % (auto) 1.3 % (0.0-7.0); Hematocrit 24.1 % (36.0-46.0); Lymphocytes # (auto) 1.7 10 ^3/uL (0.4-5.4); Lymphocytes % (auto) 16.6 % (10.0-50.0); Mean Corpuscular Hemoglobin 31.5 pg (28.0-32.0); Mean Corpuscular Hgb Conc. 33.8 g/dL (32.0-36.0); Mean Corpuscular Volume 93.1 fL (80.0-100.0); Monocytes % (auto) 3.6 % (0.0-12.0); Neutrophils % (auto) 78.1 % (37.0-80.0); Platelet Count (auto) 182 10^3/uL (140-450); Red Blood Cells 2.59 10^6/uL (4.0-5.20); Red Cell Distribution Width 16.2 % (11.8-14.3); White Blood Cell 10.5 10^3/uL (4.4-10.8)
[2023-11-17] MEDS: ACCU-CHEK COMFORT CURVE STRIP VI SCH (21:00)
[2023-11-17 21:07] LABS: Alanine Aminotransferase 51 U/L (7-40); Alkaline Phosphatase 337 U/L (46-116); Anion Gap 11 (5-15); BUN/Creatinine Ratio 12.2 (10.0-20.0); Blood Urea Nitrogen 42 mg/dL (9-23); Calcium 7.4 mg/dL (8.7-10.4); Carbon Dioxide 20 mmol/L (20-30); Chloride 105 mmol/L (98-107); Glucose 154 mg/dL (74-106); LDL Cholesterol 32 mg/dL (< 100); Magnesium 1.7 mg/dL (1.6-2.6); Potassium 3.3 mmol/L (3.5-5.1); Sodium 136 mmol/L (136-145); Triglycerides 218 mg/dL (< 150)
[2023-11-17 21:08] LABS: Albumin 2.9 g/dL (3.2-4.8); Aspartate Aminotransferase 137 U/L (13-40); Bilirubin, Total 0.3 mg/dL (0.2-1.0); Cholesterol 90 mg/dL (< 200); HDL Cholesterol 11 mg/dL (40-59)
[2023-11-17 21:09] LABS: Total Protein 5.3 g/dL (5.7-8.2)
[2023-11-17 21:12] LABS: Lactic Acid w/Reflex 3.6 mmol/L (0.4-2.0)
[2023-11-17 21:14] LABS: INR 1.04 (0.9-1.15); Partial Thromboplastin Time 26.9 SEC (24.5-34.5)
[2023-11-17] MEDS: MIDAZOLAM DRIP 50 mg/50mL 50 ML IV SCH (21:23)
[2023-11-17] MEDS: NOREPINEPHRINE 8 MG/250ML KIT 250 ML IV SCH (21:23)
[2023-11-17] MEDS: LACTATED RINGER'S 1,000 ML IV SCH (21:58)
[2023-11-17] MEDS: ATORVASTATIN 20 MG TAB PO SCH (21:59)
[2023-11-17] MEDS: ERGOCALCIFEROL 50,000 UNIT(1.25MG) CAP PO SCH (22:04)
[2023-11-17] MEDS: PREGABALIN CAPSULE 75 MG CAP PO SCH (22:05)
[2023-11-17] MEDS: INSULIN LANTUS (GLARGINE) 1 /0.01ml (100units/ml) SC ONE (22:06)
[2023-11-17] MEDS: INSULIN DRIP 100 UNIT/100ML 100 ML IV SCH (22:06)
[2023-11-17] MEDS: SODIUM CHLOR 0.9% PF (SALINE LOCK) 10ML VIAL/SYR IV SCH (22:06)
[2023-11-17] MEDS: SOD CHL 0.9%/ KCL 20MEQ 1,000 ML IV SCH (22:35)
[2023-11-17] MEDS: SOD CHL 0.9%/ KCL 20MEQ 1,000 ML IV ONE (22:35)
[2023-11-17 23:03] LABS: Amphetamine Screen, Urine Neg (NEGATIVE); Barbiturate Scree,Urine Neg (NEGATIVE); Benzodiazephine Screen, Urine Pos (NEGATIVE); Cocaine Screen, Urine Neg (NEGATIVE); Opiate Scree,Urine Neg (NEGATIVE); Phencyclidine Screen, Urine Neg (NEGATIVE)
[2023-11-17 23:04] LABS: Cannabinoid Screen, Urine Neg (NEGATIVE)
[2023-11-17 23:10] LABS: Urine Bacteria FEW /hpf (None Seen); Urine Blood 2+ /uL (Negative); Urine Clarity Clear (Clear); Urine Color Colorless (Yellow); Urine Protein, UAD 1+ (Negative); Urine Specific Gravity 1.007 (1.001-1.035); Urine Urobilinogen Normal (Negative); Urine WBC 124 /hpf (0 - 5); Urine pH 5.5 (5.0-9.0)
[2023-11-18] VITALS (110 sets, daily range): BP systolic 92–163; BP diastolic 31–72; PULSE 61–123; RESP 9–26; TEMP 97.5–100.6; O2SAT 95–100
[2023-11-18] MEDS: InsuLIN REG 1unit/0.01ml Soln (100units/ml) SC SCH
[2023-11-18] MEDS: ACCU-CHEK COMFORT CURVE STRIP VI SCH (00:29)
[2023-11-18 04:01] LABS: Basophils # (auto) 0 10 ^3/uL (0-0.2); Eosinophils # (auto) 0.2 10 ^3/uL (0-0.8); Hemoglobin 8.3 g/dL (12.2-16.2); Neutrophils # (auto) 7.8 10 ^3/uL (1.6-8.6)
[2023-11-18 04:04] LABS: Basophils % (auto) 0.2 % (0.0-2.0); Eosinophils % (auto) 2.2 % (0.0-7.0); Hematocrit 24.4 % (36.0-46.0); Lymphocytes # (auto) 1.5 10 ^3/uL (0.4-5.4); Lymphocytes % (auto) 14.8 % (10.0-50.0); Mean Corpuscular Hemoglobin 31.2 pg (28.0-32.0); Mean Corpuscular Hgb Conc. 33.9 g/dL (32.0-36.0); Mean Corpuscular Volume 92.1 fL (80.0-100.0); Monocytes # (auto) 0.4 10 ^3/uL (0-1.3); Monocytes % (auto) 3.8 % (0.0-12.0); Platelet Count (auto) 199 10^3/uL (140-450); Red Blood Cells 2.65 10^6/uL (4.0-5.20); Red Cell Distribution Width 15.9 % (11.8-14.3); White Blood Cell 9.9 10^3/uL (4.4-10.8)
[2023-11-18 04:16] LABS: Alanine Aminotransferase 51 U/L (7-40); Albumin 3.1 g/dL (3.2-4.8); Alkaline Phosphatase 345 U/L (46-116); Anion Gap 13 (5-15); Aspartate Aminotransferase 125 U/L (13-40); BUN/Creatinine Ratio 11.4 (10.0-20.0); Bilirubin, Total 0.4 mg/dL (0.2-1.0); Blood Urea Nitrogen 41 mg/dL (9-23); Calcium 7.8 mg/dL (8.7-10.4); Carbon Dioxide 20 mmol/L (20-30); Chloride 103 mmol/L (98-107); Glucose 182 mg/dL (74-106); Magnesium 1.9 mg/dL (1.6-2.6); Potassium 4.1 mmol/L (3.5-5.1); Sodium 136 mmol/L (136-145); Total Protein 5.6 g/dL (5.7-8.2)
[2023-11-18] MEDS: LEVOTHYROXINE SODIUM 100 MCG TAB PO SCH (06:37)
[2023-11-18] MEDS: SODIUM CHLORIDE 0.9% 1,000 ML IV SCH ×2 (07:00→12:30)
[2023-11-18] MEDS: cefTRIAXone 1GM/50ML D5W 50 ML IV ONE (07:45)
[2023-11-18 08:04] LABS: Phosphorus 4.4 mg/dL (2.4-5.1)
[2023-11-18 08:18] LABS: Base Excess -6.2 mmol/L (-2.0-3.0)
[2023-11-18] MEDS ORDERED: LISINOPRIL 5 MG TAB PO SCH (10:00)
[2023-11-18] MEDS ORDERED: INSULIN LANTUS (GLARGINE) 1 /0.01ml (100units/ml) SC SCH (10:00)
[2023-11-18] MEDS: cefTRIAXone 1GM/50ML D5W 50 ML IV SCH (10:14)
[2023-11-18] MEDS: PANTOPRAZOLE 40 MG/10 ML VIAL INJ IV ONE (10:15)
[2023-11-18] MEDS: CYANOCOBALAMIN 500 MCG TAB PO SCH (10:15)
[2023-11-18] MEDS: fentaNYL Drip 2500mCg/250mlNS 250 ML IV SCH ×2 (12:02→12:15)
[2023-11-18] MEDS ORDERED: ENOXAPARIN SOD 40 MG/0.4 ML SYRINGE SC ONE (12:15)
[2023-11-18] MEDS ORDERED: Jevity 1.2 Cal/Fiber 1 Liter GT SCH (12:15)
[2023-11-18] MEDS: IPRATROPIUM BROM 0.5 MG/2.5ML INH SOL NEB SCH (12:21)
[2023-11-18] MEDS: ALBUTEROL SULF 2.5 MG/0.5ML(0.5%) NEB SOLN NEB SCH (12:21)
[2023-11-18] MEDS: ENOXAPARIN SOD 30 MG/0.3 ML SYRINGE SC ONE (15:38)
[2023-11-18] MEDS: Nepro With Carb Steady 1 Liter Bottle GT SCH (18:35)
[2023-11-18] MEDS: ACETAMINOPHEN 325 MG TAB PO PRN (23:23)
[2023-11-19] VITALS (106 sets, daily range): BP systolic 78–143; BP diastolic 28–68; PULSE 72–189; RESP 11–29; TEMP 98.2–101.5; O2SAT 96–100
[2023-11-19 03:56] LABS: Basophils # (auto) 0 10 ^3/uL (0-0.2); Basophils % (auto) 0.2 % (0.0-2.0); Eosinophils # (auto) 0.1 10 ^3/uL (0-0.8); Eosinophils % (auto) 0.9 % (0.0-7.0); Monocytes # (auto) 0.5 10 ^3/uL (0-1.3)
[2023-11-19 03:59] LABS: Hematocrit 29.6 % (36.0-46.0); Hemoglobin 9.5 g/dL (12.2-16.2); Lymphocytes # (auto) 1.3 10 ^3/uL (0.4-5.4); Lymphocytes % (auto) 11.9 % (10.0-50.0); Mean Corpuscular Hemoglobin 30.4 pg (28.0-32.0); Mean Corpuscular Hgb Conc. 32.1 g/dL (32.0-36.0); Mean Corpuscular Volume 94.5 fL (80.0-100.0); Monocytes % (auto) 4.2 % (0.0-12.0); Neutrophils # (auto) 9.2 10 ^3/uL (1.6-8.6); Neutrophils % (auto) 82.8 % (37.0-80.0); Platelet Count (auto) 240 10^3/uL (140-450); Red Blood Cells 3.13 10^6/uL (4.0-5.20); Red Cell Distribution Width 16.5 % (11.8-14.3); White Blood Cell 11.2 10^3/uL (4.4-10.8)
[2023-11-19 04:15] LABS: Alanine Aminotransferase 54 U/L (7-40); Albumin 3.7 g/dL (3.2-4.8); Alkaline Phosphatase 381 U/L (46-116); Anion Gap 11 (5-15); Aspartate Aminotransferase 85 U/L (13-40); BUN/Creatinine Ratio 10.4 (10.0-20.0); Bilirubin, Total 0.2 mg/dL (0.2-1.0); Blood Urea Nitrogen 40 mg/dL (9-23); Calcium 8.3 mg/dL (8.7-10.4); Carbon Dioxide 19 mmol/L (20-30); Chloride 108 mmol/L (98-107); Glucose 198 mg/dL (74-106); Phosphorus 6.7 mg/dL (2.4-5.1); Potassium 4.5 mmol/L (3.5-5.1); Sodium 138 mmol/L (136-145)
[2023-11-19 04:16] LABS: Total Protein 6.7 g/dL (5.7-8.2)
[2023-11-19] MEDS: INSULIN LANTUS (GLARGINE) 1 /0.01ml (100units/ml) SC SCH ×2 (05:48→09:13)
[2023-11-19 08:06] LABS: Complement C3 115 mg/dL (82-167); Rheumatoid Arthritis Factor 13.3 IU/mL (<14.0)
[2023-11-19 08:21] LABS: Base Excess -9.7 mmol/L (-2.0-3.0)
[2023-11-19 09:07] LABS: Anti-Centromere B Antibody <0.2 AI (0.0-0.9); Anti-Jo-1 Antibody <0.2 AI (0.0-0.9); Anti-dsDNA Antibody 1 IU/mL (0-9); Antichromatin Antibody <0.2 AI (0.0-0.9); Antiscleroderma-70 Antibody <0.2 AI (0.0-0.9); RNP Antibody <0.2 AI (0.0-0.9); Sjogren's Anti-SS-A Antibody <0.2 AI (0.0-0.9); Sjogren's Anti-SS-B Antibody <0.2 AI (0.0-0.9); Smith Antibody <0.2 AI (0.0-0.9)
[2023-11-19] MEDS: PANTOPRAZOLE 40 MG/10 ML VIAL INJ IV SCH (09:10)
[2023-11-19] MEDS: ENOXAPARIN SOD 30 MG/0.3 ML SYRINGE SC SCH (09:10)
[2023-11-19] MEDS ORDERED: ENOXAPARIN SOD 40 MG/0.4 ML SYRINGE SC SCH (10:00)
[2023-11-19] MEDS: MICAFUNGIN SODIUM 100 MG in SODIUM CHL 0.9% 100 ML IV SCH (10:17)
[2023-11-19 11:07] LABS: Base Excess -7.9 mmol/L (-2.0-3.0)
[2023-11-19] MEDS: FUROSEMIDE 40 MG/4 ML VIAL IV ONE (15:12)
[2023-11-20] VITALS (106 sets, daily range): BP systolic 78–161; BP diastolic 27–58; PULSE 64–99; RESP 12–25; TEMP 97.2–99.3; O2SAT 94–100
[2023-11-20 04:14] LABS: Basophils # (auto) 0 10 ^3/uL (0-0.2); Eosinophils # (auto) 0.1 10 ^3/uL (0-0.8); Hematocrit 24.7 % (36.0-46.0); Hemoglobin 8.1 g/dL (12.2-16.2); Nucleated Red Blood Cells % 0.1 %
[2023-11-20 04:19] LABS: Basophils % (auto) 0.2 % (0.0-2.0); Eosinophils % (auto) 2.2 % (0.0-7.0); Lymphocytes % (auto) 18.7 % (10.0-50.0); Mean Corpuscular Hemoglobin 30.8 pg (28.0-32.0); Mean Corpuscular Hgb Conc. 32.8 g/dL (32.0-36.0); Mean Corpuscular Volume 93.9 fL (80.0-100.0); Monocytes # (auto) 0.3 10 ^3/uL (0-1.3); Monocytes % (auto) 6.2 % (0.0-12.0); Neutrophils # (auto) 3.9 10 ^3/uL (1.6-8.6); Neutrophils % (auto) 72.7 % (37.0-80.0); Platelet Count (auto) 218 10^3/uL (140-450); Red Blood Cells 2.63 10^6/uL (4.0-5.20); White Blood Cell 5.4 10^3/uL (4.4-10.8)
[2023-11-20 04:28] LABS: Alanine Aminotransferase 36 U/L (7-40); Alkaline Phosphatase 407 U/L (46-116); Anion Gap 8 (5-15); BUN/Creatinine Ratio 10.4 (10.0-20.0); Blood Urea Nitrogen 39 mg/dL (9-23); Calcium 8.4 mg/dL (8.7-10.4); Carbon Dioxide 22 mmol/L (20-30); Chloride 111 mmol/L (98-107); Glucose 81 mg/dL (74-106); Magnesium 1.8 mg/dL (1.6-2.6); Potassium 3.9 mmol/L (3.5-5.1); Sodium 141 mmol/L (136-145)
[2023-11-20 04:29] LABS: Aspartate Aminotransferase 56 U/L (13-40); Bilirubin, Total 0.2 mg/dL (0.2-1.0); Total Protein 5.5 g/dL (5.7-8.2)
[2023-11-20] MEDS: FUROSEMIDE 40 MG/4 ML VIAL IV SCH (05:27)
[2023-11-20 08:08] LABS: Base Excess -4.9 mmol/L (-2.0-3.0)
[2023-11-21] VITALS (104 sets, daily range): BP systolic 100–159; BP diastolic 35–90; PULSE 69–100; RESP 15–28; TEMP 98.4–99.7; O2SAT 93–100
[2023-11-21 02:18] LABS: COVID19 ANTIGEN SOFIA FIA NEGATIVE (NEGATIVE); Rapid Influenza A Negative (Negative); Rapid Influenza B Negative (Negative)
[2023-11-21 03:59] LABS: Basophils # (auto) 0 10 ^3/uL (0-0.2); Basophils % (auto) 0.5 % (0.0-2.0); Eosinophils # (auto) 0.3 10 ^3/uL (0-0.8); Eosinophils % (auto) 3.3 % (0.0-7.0); Hematocrit 26.4 % (36.0-46.0); Hemoglobin 8.5 g/dL (12.2-16.2); Lymphocytes # (auto) 2.2 10 ^3/uL (0.4-5.4); Lymphocytes % (auto) 27.9 % (10.0-50.0); Mean Corpuscular Hemoglobin 29.9 pg (28.0-32.0); Mean Corpuscular Hgb Conc. 32.4 g/dL (32.0-36.0); Mean Corpuscular Volume 92.3 fL (80.0-100.0); Monocytes # (auto) 0.5 10 ^3/uL (0-1.3); Monocytes % (auto) 6.6 % (0.0-12.0); Neutrophils # (auto) 4.8 10 ^3/uL (1.6-8.6); Neutrophils % (auto) 61.7 % (37.0-80.0); Nucleated Red Blood Cells % 0.1 %; Platelet Count (auto) 307 10^3/uL (140-450); Red Blood Cells 2.86 10^6/uL (4.0-5.20); Red Cell Distribution Width 16.1 % (11.8-14.3); White Blood Cell 7.8 10^3/uL (4.4-10.8)
[2023-11-21 04:28] LABS: Alanine Aminotransferase 32 U/L (7-40); Alkaline Phosphatase 463 U/L (46-116); Anion Gap 10 (5-15); BUN/Creatinine Ratio 13.5 (10.0-20.0); Blood Urea Nitrogen 45 mg/dL (9-23); Carbon Dioxide 23 mmol/L (20-30); Chloride 110 mmol/L (98-107); Glucose 153 mg/dL (74-106); Magnesium 1.7 mg/dL (1.6-2.6); Potassium 3.5 mmol/L (3.5-5.1); Sodium 143 mmol/L (136-145)
[2023-11-21 04:29] LABS: Albumin 3.3 g/dL (3.2-4.8); Aspartate Aminotransferase 41 U/L (13-40); Bilirubin, Total 0.2 mg/dL (0.2-1.0); Total Protein 6.1 g/dL (5.7-8.2)
[2023-11-21 07:32] LABS: Base Excess -2.3 mmol/L (-2.0-3.0)
[2023-11-21] MEDS: ASPirin 81 mg TAB PO ONE (20:32)
[2023-11-21] MEDS: ATORVASTATIN 20 MG TAB PO SCH (21:16)
[2023-11-22] VITALS (107 sets, daily range): BP systolic 98–177; BP diastolic 41–77; PULSE 79–102; RESP 18–26; TEMP 98.4–99.9; O2SAT 95–100
[2023-11-22 04:12] LABS: Alanine Aminotransferase 25 U/L (7-40); Albumin 3.3 g/dL (3.2-4.8); Alkaline Phosphatase 417 U/L (46-116); Anion Gap 5 (5-15); Aspartate Aminotransferase 27 U/L (13-40); BUN/Creatinine Ratio 15.9 (10.0-20.0); Blood Urea Nitrogen 43 mg/dL (9-23); Carbon Dioxide 29 mmol/L (20-30); Chloride 110 mmol/L (98-107); Glucose 179 mg/dL (74-106); Magnesium 1.6 mg/dL (1.6-2.6); Phosphorus 4.4 mg/dL (2.4-5.1); Potassium 3.5 mmol/L (3.5-5.1); Sodium 144 mmol/L (136-145)
[2023-11-22 04:13] LABS: Bilirubin, Total 0.2 mg/dL (0.2-1.0); Total Protein 6.1 g/dL (5.7-8.2)
[2023-11-22 04:22] LABS: Basophils # (auto) 0 10 ^3/uL (0-0.2); Eosinophils # (auto) 0.2 10 ^3/uL (0-0.8); Hemoglobin 8.4 g/dL (12.2-16.2); Monocytes # (auto) 0.6 10 ^3/uL (0-1.3); Nucleated Red Blood Cells % 0.1 %; Red Blood Cells 2.67 10^6/uL (4.0-5.20); White Blood Cell 6.7 10^3/uL (4.4-10.8)
[2023-11-22 04:25] LABS: Basophils % (auto) 0.3 % (0.0-2.0); Eosinophils % (auto) 3.6 % (0.0-7.0); Hematocrit 24.5 % (36.0-46.0); Lymphocytes # (auto) 1.4 10 ^3/uL (0.4-5.4); Lymphocytes % (auto) 20.2 % (10.0-50.0); Mean Corpuscular Hemoglobin 31.6 pg (28.0-32.0); Mean Corpuscular Hgb Conc. 34.3 g/dL (32.0-36.0); Mean Corpuscular Volume 91.9 fL (80.0-100.0); Neutrophils # (auto) 4.5 10 ^3/uL (1.6-8.6); Neutrophils % (auto) 66.9 % (37.0-80.0); Platelet Count (auto) 367 10^3/uL (140-450); Red Cell Distribution Width 15.7 % (11.8-14.3)
[2023-11-22] MEDS: LEVOTHYROXINE SODIUM 50 MCG TAB PO SCH (05:51)
[2023-11-22 07:01] LABS: Base Excess -0.5 mmol/L (-2.0-3.0)
[2023-11-22] MEDS: ASPirin 81 mg TAB PO SCH (08:59)
[2023-11-22 19:06] LABS: Antimyeloperoxidase (MPO) Ab <0.2 units (0.0-0.9); Antiproteinase 3 (PR-3) Ab <0.2 units (0.0-0.9)
[2023-11-23] VITALS (109 sets, daily range): BP systolic 94–173; BP diastolic 41–88; PULSE 81–109; RESP 13–24; TEMP 98.4–100.6; O2SAT 96–100
[2023-11-23 04:30] LABS: Basophils # (auto) 0 10 ^3/uL (0-0.2); Eosinophils # (auto) 0.2 10 ^3/uL (0-0.8); Lymphocytes # (auto) 1.4 10 ^3/uL (0.4-5.4)
[2023-11-23 04:33] LABS: Basophils % (auto) 0.4 % (0.0-2.0); Eosinophils % (auto) 2.8 % (0.0-7.0); Hemoglobin 8.3 g/dL (12.2-16.2); Lymphocytes % (auto) 17.3 % (10.0-50.0); Mean Corpuscular Hemoglobin 30.9 pg (28.0-32.0); Mean Corpuscular Hgb Conc. 33.3 g/dL (32.0-36.0); Mean Corpuscular Volume 92.6 fL (80.0-100.0); Monocytes # (auto) 0.7 10 ^3/uL (0-1.3); Monocytes % (auto) 8.2 % (0.0-12.0); Neutrophils # (auto) 5.9 10 ^3/uL (1.6-8.6); Neutrophils % (auto) 71.3 % (37.0-80.0); Platelet Count (auto) 419 10^3/uL (140-450); Red Cell Distribution Width 15.2 % (11.8-14.3); White Blood Cell 8.3 10^3/uL (4.4-10.8)
[2023-11-23 04:52] LABS: Alanine Aminotransferase 23 U/L (7-40); Albumin 3.4 g/dL (3.2-4.8); Alkaline Phosphatase 396 U/L (46-116); Anion Gap 6 (5-15); Aspartate Aminotransferase 27 U/L (13-40); BUN/Creatinine Ratio 19.4 (10.0-20.0); Blood Urea Nitrogen 44 mg/dL (9-23); Calcium 9.1 mg/dL (8.7-10.4); Carbon Dioxide 30 mmol/L (20-30); Chloride 108 mmol/L (98-107); Glucose 272 mg/dL (74-106); Magnesium 1.6 mg/dL (1.6-2.6); Phosphorus 3.3 mg/dL (2.4-5.1); Potassium 3.3 mmol/L (3.5-5.1); Sodium 144 mmol/L (136-145)
[2023-11-23 04:53] LABS: Bilirubin, Total 0.2 mg/dL (0.2-1.0); Total Protein 6.2 g/dL (5.7-8.2)
[2023-11-23 07:27] LABS: Base Excess 5.1 mmol/L (-2.0-3.0)
[2023-11-23] MEDS ORDERED: POTASSIUM CHL 20MEQ/100ML 100 ML IV SCH (08:30)
[2023-11-23] MEDS: hydrALAZINE HCL 20 MG/ML VL IV PRN (09:29)
[2023-11-23] MEDS: MAGNESIUM SULFATE 1GM/100ML 100 ML IV ONE (09:40)
[2023-11-23] MEDS: LACTULOSE 20Gm/30ML SOLN PO ONE (09:41)
[2023-11-23] MEDS: POTASSIUM CHL 20MEQ/100ML 100 ML IV SCH (09:41)
[2023-11-23] MEDS: FUROSEMIDE 40 MG/4 ML VIAL IV SCH (09:42)
[2023-11-23 13:12] LABS: Protein, Urine 23.7 mg/dL (0.0-11.9)
[2023-11-23 13:15] LABS: Creatinine, Urine 12.73 mg/dL (30.0-125.0); Urine Protein/Creatinine Ratio 1.86
[2023-11-23] MEDS: LACTULOSE 20Gm/30ML SOLN PO SCH (21:21)
[2023-11-24] VITALS (108 sets, daily range): BP systolic 85–156; BP diastolic 37–68; PULSE 74–109; RESP 14–36; TEMP 98.2–99; O2SAT 95–100
[2023-11-24 04:15] LABS: Basophils # (auto) 0 10 ^3/uL (0-0.2); Basophils % (auto) 0.5 % (0.0-2.0); Lymphocytes # (auto) 1.4 10 ^3/uL (0.4-5.4); Monocytes # (auto) 0.8 10 ^3/uL (0-1.3); White Blood Cell 9.5 10^3/uL (4.4-10.8)
[2023-11-24 04:19] LABS: Eosinophils # (auto) 0.2 10 ^3/uL (0-0.8); Eosinophils % (auto) 1.7 % (0.0-7.0); Hematocrit 27.6 % (36.0-46.0); Hemoglobin 9.2 g/dL (12.2-16.2); Mean Corpuscular Hemoglobin 30.7 pg (28.0-32.0); Mean Corpuscular Hgb Conc. 33.5 g/dL (32.0-36.0); Mean Corpuscular Volume 91.7 fL (80.0-100.0); Monocytes % (auto) 8.5 % (0.0-12.0); Neutrophils % (auto) 74.3 % (37.0-80.0); Nucleated Red Blood Cells % 0.2 %; Platelet Count (auto) 515 10^3/uL (140-450); Red Blood Cells 3.01 10^6/uL (4.0-5.20); Red Cell Distribution Width 15.1 % (11.8-14.3)
[2023-11-24 04:35] LABS: Alanine Aminotransferase 23 U/L (7-40); Albumin 3.7 g/dL (3.2-4.8); Alkaline Phosphatase 389 U/L (46-116); Anion Gap 11 (5-15); Aspartate Aminotransferase 29 U/L (13-40); BUN/Creatinine Ratio 21.8 (10.0-20.0); Blood Urea Nitrogen 41 mg/dL (9-23); Calcium 9.8 mg/dL (8.7-10.4); Carbon Dioxide 27 mmol/L (20-30); Chloride 109 mmol/L (98-107); Glucose 179 mg/dL (74-106); Potassium 3.2 mmol/L (3.5-5.1); Sodium 147 mmol/L (136-145)
[2023-11-24 04:36] LABS: Bilirubin, Total 0.2 mg/dL (0.2-1.0); Phosphorus 3.4 mg/dL (2.4-5.1); Total Protein 6.8 g/dL (5.7-8.2)
[2023-11-24 07:49] LABS: Base Excess 6.5 mmol/L (-2.0-3.0)
[2023-11-24] MEDS ORDERED: METOCLOPRAMIDE HCL 5MG/ml INJ 2ml VIAL IV PRN (09:45)
[2023-11-24] MEDS: POTASSIUM CHL 20MEQ/100ML 100 ML IV SCH (11:01)
[2023-11-24] MEDS: METOCLOPRAMIDE HCL 5MG/ml INJ 2ml VIAL IV SCH (11:09)
[2023-11-24] MEDS: FREE WATER GT SCH (11:20)
[2023-11-24 13:07] LABS: Cytoplasmic (C-ANCA) <1:20 titer (Neg:<1:20); Perinuclear (P-ANCA) <1:20 titer (Neg:<1:20)
[2023-11-24] MEDS: POTASSIUM CHL 20MEQ/100ML 100 ML IV ONE (16:59)
[2023-11-25] VITALS (104 sets, daily range): BP systolic 86–150; BP diastolic 34–75; PULSE 72–110; RESP 10–28; TEMP 98.1–99; O2SAT 94–100
[2023-11-25 04:17] LABS: Hematocrit 26.9 % (36.0-46.0); Hemoglobin 8.3 g/dL (12.2-16.2); Mean Corpuscular Hemoglobin 29.3 pg (28.0-32.0); Mean Corpuscular Hgb Conc. 30.8 g/dL (32.0-36.0); Mean Corpuscular Volume 95.3 fL (80.0-100.0); Platelet Count (auto) 567 10^3/uL (140-450); Red Blood Cells 2.82 10^6/uL (4.0-5.20); Red Cell Distribution Width 15.7 % (11.8-14.3)
[2023-11-25 04:20] LABS: Basophils % (manual) 0 (0.0-2.0); Blast Cells 0; Myelocytes % 0; Promyelocytes % 0; Reactive Lymphocytes 0
[2023-11-25 04:29] LABS: Alanine Aminotransferase 26 U/L (7-40); Albumin 3.5 g/dL (3.2-4.8); Alkaline Phosphatase 345 U/L (46-116); Anion Gap 7 (5-15); Aspartate Aminotransferase 50 U/L (13-40); BUN/Creatinine Ratio 18.2 (10.0-20.0); Blood Urea Nitrogen 33 mg/dL (9-23); Calcium 9.4 mg/dL (8.7-10.4); Carbon Dioxide 27 mmol/L (20-30); Chloride 110 mmol/L (98-107); Glucose 232 mg/dL (74-106); Phosphorus 3.1 mg/dL (2.4-5.1); Potassium 3.7 mmol/L (3.5-5.1); Sodium 144 mmol/L (136-145)
[2023-11-25 04:30] LABS: Bilirubin, Total 0.2 mg/dL (0.2-1.0); Total Protein 6.5 g/dL (5.7-8.2)
[2023-11-25 07:40] LABS: Band Neutrophils % (manual) 6; Eosinophils % (manual) 2 (0-7); Lymphocytes % (manual) 13 (10.0-50.0); Metamyelocytes % 2; Monocytes % (manual) 5 (0-12); Platelet Estimate Increased
[2023-11-25 08:06] LABS: Base Excess 6.1 mmol/L (-2.0-3.0)
[2023-11-25] MEDS: MICAFUNGIN SODIUM 100 MG in SODIUM CHL 0.9% 100 ML IV ONE (09:08)
[2023-11-26] VITALS (92 sets, daily range): BP systolic 80–136; BP diastolic 32–68; PULSE 68–102; RESP 10–26; TEMP 98.1–99; O2SAT 94–100
[2023-11-26 04:07] LABS: Basophils # (auto) 0.1 10 ^3/uL (0-0.2); Hemoglobin 8.2 g/dL (12.2-16.2); Mean Corpuscular Volume 93.4 fL (80.0-100.0); Neutrophils # (auto) 7.9 10 ^3/uL (1.6-8.6); Nucleated Red Blood Cells % 0.1 %; Red Cell Distribution Width 15.2 % (11.8-14.3)
[2023-11-26 04:10] LABS: Basophils % (auto) 0.6 % (0.0-2.0); Eosinophils # (auto) 0.5 10 ^3/uL (0-0.8); Eosinophils % (auto) 4.6 % (0.0-7.0); Hematocrit 24.9 % (36.0-46.0); Lymphocytes # (auto) 1.7 10 ^3/uL (0.4-5.4); Mean Corpuscular Hemoglobin 30.6 pg (28.0-32.0); Mean Corpuscular Hgb Conc. 32.8 g/dL (32.0-36.0); Monocytes # (auto) 0.4 10 ^3/uL (0-1.3); Monocytes % (auto) 3.6 % (0.0-12.0); Neutrophils % (auto) 75.2 % (37.0-80.0); Platelet Count (auto) 536 10^3/uL (140-450); Red Blood Cells 2.67 10^6/uL (4.0-5.20); White Blood Cell 10.5 10^3/uL (4.4-10.8)
[2023-11-26 04:29] LABS: Alanine Aminotransferase 28 U/L (7-40); Albumin 3.4 g/dL (3.2-4.8); Alkaline Phosphatase 309 U/L (46-116); Anion Gap 6 (5-15); Aspartate Aminotransferase 55 U/L (13-40); Bilirubin, Total < 0.2 mg/dL (0.2-1.0); Blood Urea Nitrogen 38 mg/dL (9-23); Calcium 9.2 mg/dL (8.7-10.4); Carbon Dioxide 28 mmol/L (20-30); Chloride 108 mmol/L (98-107); Glucose 240 mg/dL (74-106); Phosphorus 4.4 mg/dL (2.4-5.1); Potassium 3.8 mmol/L (3.5-5.1); Sodium 142 mmol/L (136-145); Total Protein 6.1 g/dL (5.7-8.2)
[2023-11-26 07:15] LABS: Base Excess 4.4 mmol/L (-2.0-3.0)
[2023-11-26 08:06] LABS: Cancer Antigen (CA) 125 34.9 U/mL (0.0-38.1)
[2023-11-26] MEDS: MICAFUNGIN SODIUM 100 MG in SODIUM CHL 0.9% 100 ML IV SCH (09:03)
[2023-11-26 09:07] LABS: CA 27.29 29.4 U/mL (0.0-38.6)
[2023-11-26] MEDS: INSULIN LANTUS (GLARGINE) 1 /0.01ml (100units/ml) SC SCH (10:47)
[2023-11-29 14:15] LABS: Hepatitis B Core Total AB Negative (Negative)
[2023-11-29 16:43] LABS: Hepatitis A Total Antibody Negative (Negative); Hepatitis B Surface Antibody Negative (Negative); Hepatitis B Surface Antigen Negative (Negative); Hepatitis C Antibody Negative (Negative)
== END 2023-11-26 20:16 | disposition short-term general hospital (02) | DRG 870 ==
LOC: ICU WEST 19:19
PROVIDERS: ADMIT Internal Medicine Pulmonary Disease; ATTEND Internal Medicine Pulmonary Disease
PROC: 5A1955Z Respiratory Ventilation, Greater than 96 Consecutive Hours (ICD-10-PCS; principal; 2023-11-17)
PROC: 0BH17EZ Insertion of Endotracheal Airway into Trachea, Via Natural or Artificial Opening (ICD-10-PCS; 2023-11-17)
DX: A41.9 Sepsis, unspecified organism (principal); E11.10 Type 2 diabetes mellitus with ketoacidosis without coma; G93.41 Metabolic encephalopathy; R65.21 Severe sepsis with septic shock; J69.0 Pneumonitis due to inhalation of food and vomit; N17.0 Acute kidney failure with tubular necrosis; J96.01 Acute respiratory failure with hypoxia; I63.9 Cerebral infarction, unspecified; N39.0 Urinary tract infection, site not specified; E87.4 Mixed disorder of acid-base balance; J98.11 Atelectasis; E87.0 Hyperosmolality and hypernatremia; K80.30 Calculus of bile duct with cholangitis, unspecified, without obstruction; Z20.822 Contact with and (suspected) exposure to COVID-19; E11.42 Type 2 diabetes mellitus with diabetic polyneuropathy; J44.9 Chronic obstructive pulmonary disease, unspecified; Z96.641 Presence of right artificial hip joint; E03.9 Hypothyroidism, unspecified; E86.0 Dehydration; G93.9 Disorder of brain, unspecified; I12.9 Hypertensive chronic kidney disease with stage 1 through stage 4 chronic kidney disease, or unspecified chronic kidney disease; E11.22 Type 2 diabetes mellitus with diabetic chronic kidney disease; N18.9 Chronic kidney disease, unspecified; R74.01 Elevation of levels of liver transaminase levels; Z87.891 Personal history of nicotine dependence
CPT/HCPCS: 36415; 36600; 70450; 70551; 71045; 71250; 73100; 74176; 74181; 76604; 76705; 76775; 80053; 80061; 80307; 81001; 82010; 82043; 82140; 82306; 82378; 82570; 82607; 82805; 82962; 83036; 83516; 83520; 83605; 83690; 83735; 83935; 83970; 84100; 84156; 84300; 84443; 85007; 85025; 85027; 85610; 85730; 86160; 86225; 86235; 86256; 86300; 86301; 86304; 86431; 86704; 86706; 86708; 86803; 87040; 87070; 87077; 87081; 87086; 87186; 87205; 87340; 87426; 87804; 93306; 93886; 94002; 94003; 94640; G0378; J2248; J2470; J3480

== ENCOUNTER 2023-12-08 18:22 | Inpatient (IN) | payer OTHER ==
[2023-12-08] VITALS (27 sets, daily range): BP systolic 131–172; BP diastolic 55–79; PULSE 57–82; RESP 16–33; TEMP 99.1–99.4; O2SAT 96–100
[~2023-12-08] VITALS: Ht 157.5 cm; Wt 66.5 kg
--- NOTE | 2023-12-08 19:15 | DVHHP2 ---
History of Present Illness Reason for Visit: return from [facility] for ercp History of Present Illness 68 yr old female pmh Diabetes, hypertension, hypothyroidism, obesity, COPD, diabetic polyneuropathy,Metabolic encephalopathy probably secondary to sepsis versus brain metastasis/infection/stroke associated with acute respiratory failure due to aspiration pneumonia, YULIANA and UTI, liver cirrhosis. Multiple admissions for DKA and surgical history 3 hip replacement, right knee replacement . requiring emergent ET intubation in admitting Center ([facility]) 11/16/23, pt was then transferred here for continued care for acute dka and ams, this information was taken from the discharge noted on 11/25 " On admission at [facility] pt arrived in dka and ams and was admitted to [facility] when reviewing the discharge note from the Resident if was found to have pt to be "presented head CT and MRI which evidence space-occupying lesions, could not complete IV neuroimaging due to YULIANA and could not complete lumbar puncture due to brain occupying lesions and no neurosurgery as backup (echocardiogram and duplex ultrasound of neck vessels negative for cardioembolic source). Completed chest, abdomen and pelvis CT with no contrast which showed no obvious malignancies, only positive for dilation of common bile duct, completing posterior MRCP which could not rule out biliary malignancy. Completed multiple blood, urine and sputum culture, only positive for Klebsiella and fungus (non Sapphire) and sputum, completed treatment with ceftriaxone and currently continue micafungin at this moment. Evaluated by GI and surgical garment fitter indicating higher level of care for eventual ERCP/endoscopic ultrasound". so pt was transferred to outside hosp on 11/26/2023 and then returned back to our facility today from [facility]. Patient had an ERCP that was completed in his according to records patient had an ERCP on that visit it showed mild biliary duct dilation but no masses or no obstruction with a stone. No stone in the common bile duct they state they did an EGD and that was with normal findings. I evaluated the chart further and it shows on that admission patient had an MRI of the brain that showed multiple enhancing lesions bilateral cerebral hemispheres in the right paramedian occipital lobe according to the chart MRI was completed on December 05, 2023 no evidence of demyelinating disease, recommended neuro checks every 4 hours, aspirin and statin, neurosurgeon was consulted and they felt that the lesions were likely represent infarcts it appears that they were really attempting to do a MRI spectrum raphe but the neurologist was against a LP due to risk for herniation and they signed off. It does not appear the MRI spectroscopy was completed . They decided to extubate the patient is November 28 2023 and she was transferred to step-down unit with 2 L nasal cannula she was doing well then it appears on December 02 patient became short of breath and tachypneic so they ordered a CTA to rule out PE which that was negative and they attempted to use BiPAP with no avail so they had to reintubate the patient. It appears on December 03, 2023 it appears patient had a TTE to evaluate for endocarditis due to the angi showed mitral valve thickening not able to find the results on the chart it appears was not done. It also appears that patient had sepsis unclear etiology they think it might be related to the brain lesions. Infectious Disease had ordered antibiotics and was renew look it appears patient was on vanco for MRSA coverage, ceftriaxone for meningitis, ampicillin for listeria, Flagyl for anaerobic coverage, fluconazole for coccidioides. We will readmit and round the To consider if Lovenox is going to be needed and if ANGI needs to be completed. For now we will place SCDs Past Medical History see HPI above Past Surgical History see hpi above Family History unable to assess d/t intubated Past Social History unable to assess Review of Systems Constitutional: Yes: Other (intubated ) Allergies: Coded Allergies: NO KNOWN ALLERGIES (Unverified , 10/26/12) Exam General Appearance: Other (intubated) Labs/Xrays I reviewed labs, imaging CT scan abdomen pelvis, EKG and all diagnostic studies on this patient from ED records and the medical chart Assessment/Plan Assessment/Plan DIAGNOSIS acute Metabolic encephalopathy probably secondary to sepsis vs brain metastasis/infection/stroke Acute respiratory failure Aspiration pneumonia Sepsis due to UTI vs pneumonia DKA probably secondary to pneumonia Multiple peripheral enhancing brain lesions involving the bilateral cerebral he mispheres the right occipital lobe with surrounding edema (it appears she had an MRI completed December 05 2023 there was no evidence of demyelinating disease) Diabetic ketoacidosis acute on chronic UTI YULIANA hemodynamically mediated (baseline creatinine 0.97) - Improved Hypernatremia Mixed respiratory acidosis Transaminitis likely from dilated CBD but no masses seen/ this was ruled out choledocholithiasis/cholangitis Fatty liver Diabetes - Uncontrolled ([id number]: 11.7%) Diabetic polyneuropathy Hypothyroidism Hypertension controlled COPD no exacerbation Chronic right wrist fracture - secondary to mechanical fall 1.Admit to intensive care unit 2.Breathing to be adjusted per abg and per respiratory, continue vent settings if with resp distress can order abg 3.Pain control management continue sedation drip 4.IV antibiotic management we will restart patient on vancomycin ceftriaxone ampicillin Flagyl and fluconazole for now consulting Infectious Disease for the accelerated antibiotics 5.Management of fluids and electrolytes, continue Jones catheter, dobhoff tube in nare strict IO's continue peripherial lines will reorder pic line replete lytes follow-up labs in am, ordered ivf ns for now 6.Consultation for neurology and gi ct brain completed along with mri brain reviewed results shows ?lesion space occupying on 11/21/23 need higer level or care pulmonary for vent management 7.Diagnostic test follow-up fu cxr in am and labs 8.DVT prophylaxis, lovenox if no bleed scd for now 9.Repeat labs now follow-up labs cbc bmp to start 10.Continue with current medical management npo for now strict IO's 12.Treatment plan discussed and goals of care with nursing no family available full code Plan Admit to ICU Plan discussed with: nursing Drips Norepinephrine 0 Versed 0 Fentanyl 350 Invasive Access 11/17/2023 ET 11/17/2023 NG 11/17/2023 HD catheter right IJ 11/17/2023 PICC line right arm DVT prophylaxis: Enoxaparin 40 mg SC daily Gastric ulcer prophylaxis: Pantoprazol 40mg IV daily Feedings: Nepro 30ml/h Patient has poor prognosis currently intubated, with no IV vasopressors, Plan discussed with: Other (reviewed beena webster) Date of Service: Dec 08, 2023 Billing Provider: SOCRATES SÁNCHEZ DNP Common Visit Codes: [id number] CARE 30-74 MIN (Total critical care time: Approximately 45 minutes This critical care time included obtaining a history; examining the patient; pulse oximetry; ordering and review of studies; arranging urgent treatment with development of a management plan; evaluation of patient's response to treatment; frequent reassessment; and, discussions with other providers.) SOCRATES SÁNCHEZ DNP Dec 08, 2023 19:15
[2023-12-08] MEDS ORDERED: ONDANSETRON HCL 4 MG/2 ML VIAL IV PRN (19:30)
--- NOTE | 2023-12-08 19:55 | DVH ---
EXAM: XY CHEST PORTABLE CLINICAL HISTORY: post transfer and intubated TECHNIQUE: Single AP view of the chest WID: COMPARISON: XY CHEST XRAY 1 VIEW on DOS: 11/26/23 FINDINGS: Lines and tubes: Endotracheal tube projects 3.1 cm above the martinez. Gastric tube descends beneath th e level of the diaphragm and tip not visualized in field of view. Removal of right PICC and right IJ central venous catheter since prior. Chest: Mild cardiomegaly and prominence of the central pulmonary vasculature. Calcified plaque projects ove r the aortic arch. No pleural effusion or pneumothorax. Small opacity in the lateral right lung base. Linear perihilar and bibasilar opacities likely scarring or atelectasis. The osseous structures are grossly intact. IMPRESSION: 1. Endotracheal and gastric tubes in place as described. Satisfactory position. 2. Removal of right PICC and right IJ central venous catheter since prior. 3. Mild cardiomegaly and pulmonary vascular congestion. 4. Small opacity in the lateral right lung base which could reflect atelectasis or pneumonia.
[2023-12-08] MEDS ORDERED: VANCOMYCIN PER PHARMACY 0 MG IV SCH (20:00)
[2023-12-08 20:09] LABS: Basophils # (auto) 0 10 ^3/uL (0-0.2); Hemoglobin 7.2 g/dL (12.2-16.2); Neutrophils # (auto) 4.7 10 ^3/uL (1.6-8.6); White Blood Cell 7.8 10^3/uL (4.4-10.8)
[2023-12-08 20:10] LABS: Basophils % (auto) 0.5 % (0.0-2.0); Eosinophils # (auto) 0.9 10 ^3/uL (0-0.8); Eosinophils % (auto) 11.1 % (0.0-7.0); Hematocrit 22.5 % (36.0-46.0); Lymphocytes # (auto) 1.6 10 ^3/uL (0.4-5.4); Lymphocytes % (auto) 20.3 % (10.0-50.0); Mean Corpuscular Hemoglobin 29.1 pg (28.0-32.0); Monocytes # (auto) 0.6 10 ^3/uL (0-1.3); Monocytes % (auto) 7.1 % (0.0-12.0); Nucleated Red Blood Cells % 0.2 %; Platelet Count (auto) 375 10^3/uL (140-450); Red Blood Cells 2.47 10^6/uL (4.0-5.20)
[2023-12-08 20:20] LABS: Urine Blood 2+ /uL (Negative); Urine Clarity Clear (Clear); Urine Color Yellow (Yellow); Urine Protein, UAD 1+ (Negative); Urine Specific Gravity 1.021 (1.001-1.035); Urine Urobilinogen Normal (Negative); Urine WBC 93 /hpf (0 - 5); Urine WBC Clumps PRESENT /hpf (None Seen); Urine pH 6.5 (5.0-9.0)
[2023-12-08 20:21] LABS: Urine Bacteria FEW /hpf (None Seen)
[2023-12-08 20:28] LABS: Alanine Aminotransferase 25 U/L (7-40); Albumin 3.1 g/dL (3.2-4.8); Alkaline Phosphatase 293 U/L (46-116); Anion Gap 7 (5-15); Aspartate Aminotransferase 46 U/L (13-40); BUN/Creatinine Ratio 12.4 (10.0-20.0); Blood Urea Nitrogen 12 mg/dL (9-23); Carbon Dioxide 23 mmol/L (20-30); Chloride 117 mmol/L (98-107); Glucose 76 mg/dL (74-106); Magnesium 1.9 mg/dL (1.6-2.6); Potassium 3.3 mmol/L (3.5-5.1); Sodium 147 mmol/L (136-145)
[2023-12-08 20:29] LABS: Bilirubin, Total < 0.2 mg/dL (0.2-1.0); Total Protein 5.5 g/dL (5.7-8.2)
[2023-12-08 20:34] LABS: INR 1.08 (0.9-1.15); Prothrombin Time 11.4 sec (9.3-11.8)
[2023-12-08] MEDS: FLUCONAZOLE 200MG/100ML 100 ML IV SCH (21:00)
[2023-12-08] MEDS: PANTOPRAZOLE 40 MG/10 ML VIAL INJ IV ONE (21:08)
[2023-12-08] MEDS: SODIUM CHLORIDE 0.9% 1,000 ML IV SCH (21:08)
[2023-12-08] MEDS: fentaNYL Drip 2500mCg/250mlNS 250 ML IV SCH (21:10)
[2023-12-08] MEDS: IPRATROPIUM BROM 0.5 MG/2.5ML INH SOL NEB SCH (22:00)
[2023-12-08] MEDS: metroNIDAZOLE 500MG/100ML 100 ML IV SCH (22:00)
[2023-12-08] MEDS: cefTRIAXone 2GM/50ML D5W 50 ML IV ONE (22:26)
[2023-12-08 22:37] LABS: Base Excess -2.1 mmol/L (-2.0-3.0)
[2023-12-08] MEDS: ACCU-CHEK COMFORT CURVE STRIP VI SCH (22:59)
[2023-12-08] MEDS: DEXTROSE (50%) 50ML SYRG IV PRN (23:07)
[2023-12-09] VITALS (107 sets, daily range): BP systolic 84–222; BP diastolic 39–124; PULSE 56–124; RESP 9–30; TEMP 98.3–99.7; O2SAT 89–100
[2023-12-09] MEDS: metroNIDAZOLE 500MG/100ML 100 ML IV ONE (00:13)
[2023-12-09] MEDS: D5W/SOD CHL 0.45% 1,000 ML IV SCH (01:15)
[2023-12-09] MEDS: VANCOMYCIN 1.5GM/300ML 300 ML IV SCH (01:21)
[2023-12-09] MEDS: AMPICILLIN SOD 2GM INJ 2 GM in SODIUM CHL 0.9% 100 ML IV SCH (02:00)
[2023-12-09 04:43] LABS: Basophils # (auto) 0.1 10 ^3/uL (0-0.2); Basophils % (auto) 0.7 % (0.0-2.0); Eosinophils % (auto) 12.3 % (0.0-7.0); Hematocrit 23.1 % (36.0-46.0); Hemoglobin 7.4 g/dL (12.2-16.2); Lymphocytes % (auto) 23.7 % (10.0-50.0); Mean Corpuscular Hemoglobin 29.5 pg (28.0-32.0); Mean Corpuscular Hgb Conc. 31.9 g/dL (32.0-36.0); Mean Corpuscular Volume 92.4 fL (80.0-100.0); Monocytes # (auto) 0.6 10 ^3/uL (0-1.3); Monocytes % (auto) 6.5 % (0.0-12.0); Neutrophils # (auto) 4.8 10 ^3/uL (1.6-8.6); Neutrophils % (auto) 56.8 % (37.0-80.0); Nucleated Red Blood Cells % 0.1 %; Platelet Count (auto) 350 10^3/uL (140-450); White Blood Cell 8.5 10^3/uL (4.4-10.8)
[2023-12-09 04:47] LABS: Alanine Aminotransferase 21 U/L (7-40); Alkaline Phosphatase 278 U/L (46-116); Anion Gap 8 (5-15); Aspartate Aminotransferase 40 U/L (13-40); BUN/Creatinine Ratio 11.7 (10.0-20.0); Blood Urea Nitrogen 11 mg/dL (9-23); Calcium 8.9 mg/dL (8.7-10.4); Carbon Dioxide 22 mmol/L (20-30); Chloride 116 mmol/L (98-107); Glucose 122 mg/dL (74-106); Potassium 3.4 mmol/L (3.5-5.1); Sodium 146 mmol/L (136-145)
[2023-12-09 04:48] LABS: Total Protein 5.5 g/dL (5.7-8.2)
[2023-12-09 04:53] LABS: Bilirubin, Total < 0.2 mg/dL (0.2-1.0)
--- NOTE | 2023-12-09 05:40 | DVH ---
EXAM: XY CHEST PORTABLE Indication:post transfer intubated Technique: Single frontal view of the chest was obtained Comparison: XY CHEST PORTABLE on DOS: 12/08/23, XY CHEST XRAY 1 VIEW on DOS: 11/26/23, XY CHEST XRAY 1 V IEW on DOS: 11/25/23, XY CHEST XRAY 1 VIEW on DOS: 11/25/23, XY CHEST XRAY 1 VIEW on DOS: 11/24/23 FINDINGS: Lines and Tubes: Endotracheal tube projects 2 cm above level the martinez. Enteric tube projects in daniela ropriate position over the expected region of the stomach. Lungs: Mild pulmonary edema. Pleura: No effusion. No pneumothorax. Cardiomediastinal contours: Mild cardiomegaly. Bones: No acute osseous abnormality. IMPRESSION: No significant change compared to prior exam allowing for differences in technique.
[2023-12-09] MEDS: hydrALAZINE HCL 20 MG/ML VL IV PRN (05:50)
[2023-12-09] MEDS: LORazepam 2MG/ML-1ML VIAL ONE (06:50)
[2023-12-09] MEDS: LORazepam 2MG/ML-1ML VIAL IV ONE (07:00)
[2023-12-09] MEDS: MIDAZOLAM DRIP 50 mg/50mL 50 ML IV SCH (07:00)
[2023-12-09] MEDS: MIDAZOLAM DRIP 50 mg/50mL 50 ML IV ONE (07:02)
[2023-12-09] MEDS: ALBUTEROL SULF 2.5 MG/0.5ML(0.5%) NEB SOLN NEB PRN (07:13)
[2023-12-09] MEDS: dilTIAZem 25 MG/5 ML VIAL IV ONE (07:15)
[2023-12-09] MEDS: NOREPINEPHRINE 8 MG/250ML KIT 250 ML IV ONE (07:46)
[2023-12-09] MEDS: NOREPINEPHRINE 8 MG/250ML KIT 250 ML IV SCH (08:00)
[2023-12-09] MEDS ORDERED: FUROSEMIDE 40 MG/4 ML VIAL IV ONE (08:00)
[2023-12-09] MEDS: FUROSEMIDE 40 MG/4 ML VIAL IV SCH (08:11)
[2023-12-09] MEDS ORDERED: MIDAZOLAM DRIP 50 mg/50mL 50 ML IV SCH (08:15)
[2023-12-09] MEDS: POTASSIUM CHL 20MEQ/100ML 100 ML IV ONE (08:29)
--- NOTE | 2023-12-09 09:05 | DVHPNRES ---
Progress Note Date Seen: Dec 09, 2023 Resident Creating Document: MIRACLE SALGADO RESIDENT Medical Necessity Reason Pt with a Central, PICC or Fol: Yes The following are medically ne: PICC Line, Jones Catheter Subjective Review of Systems Inna Sanderson is a 68 year old female patient who was transferred back from [facility] where she was evaluated for space occupying lesions in the brain (to rule out metastasis, infection vs stroke), where did completed MRI spectroscopy with no conclusive finding, presented failed extubation [facility] also suggested to complete EGD as outpatient. Per [id number] did not complete YOLANDA due to availability. Initially was transfered from [facility] to [facility] with diagnosis of DKA symptomatic by AMS (per daughter bizarre behavior) and general weakness which started the day of her admission, had to be emergently intubated to protect airway, requiring insulin drip in the other center (DKA resolved before transfer was completed). Could not obtain ROS due to clinical status. Past medical history: Diabetes, hypertension, hypothyroidism, obesity, COPD, diabetic polyneuropathy, recent mechanical fall with no loss of consciousness on right wrist has not had surgery, liver cirrhosis. Multiple admissions for DKA and UTI. Surgical history: 3 hip replacement, right knee replacement Family history: Non contributory Social history: Lives with two room mates. Quit smoking 2 years ago (40 pack year history). Denies current tobacco, alcohol and other drug abuse Allergies: Denies Home medication: Insulin, Ibuprofen, Levothyroxine 100 hg PO daily, Mirapex 0.75 mg daily, Pregabalin 150 mg PO bid PCP: Dr. Hernandez Patient seen and examined at bedside. Currently in ICU status for sedoanalgesia due to mechanically assisted ventilation. Deferred ROS Objective vital signs Vital Sign Date Time Temp Pulse Resp B/P (MAP) Pulse Ox O2 Delivery O2 Flow Rate FiO2 12/09/23 08:35 83/49 12/09/23 07:26 101 24 92 30 12/09/23 06:00 Mechanical Ventilator+ 12/09/23 04:00 99.1 99.1 Total Intake and Output 12/08/23 12/08/23 12/09/23 15:00 23:00 07:00 Intake Total 175 ml 772.8 ml Output Total 650 ml Balance 175 ml 122.8 ml medications Current Medications Medications Dose Ordered Sig/Leslie Route Start Time Stop Time Status Last Admin Dose Admin Albuterol 2.5 mg Q4HR PRN NEB 12/08/23 19:30 12/09/23 07:13 2.5 MG Ipratropium Hector 0.5 mg Q4HR NEB 12/08/23 22:00 12/09/23 07:13 0.5 MG Ondansetron HCl 4 mg Q4HP PRN IV 12/08/23 19:30 Diagnostic Test (Pha) 1 strip Q4HR 12/08/23 22:00 12/09/23 06:00 1 STRIP Insulin Human Regular Q6HR SC 12/09/23 00:00 Dextrose 50 ml UD PRN IV 12/08/23 19:30 12/08/23 23:07 50 ML Pantoprazole Sodium 40 mg DAILY IV 12/09/23 10:00 Fentanyl Citrate 250 ml @ 2.5 mls/hr Q24H IV 12/08/23 20:30 12/09/23 06:55 32.5 MLS/HR Dextrose/Sodium Chloride 1,000 ml @ 100 mls/hr Q10H IV 12/09/23 01:15 Hydralazine HCl 10 mg Q4HP PRN IV 12/09/23 05:30 12/09/23 05:50 10 MG Potassium Chloride 100 ml @ 50 mls/hr Q2H IV 12/09/23 07:45 12/09/23 11:44 Dextrose 1,000 ml @ 75 mls/hr [id number] IV 12/09/23 07:45 Enoxaparin Sodium 40 mg DAILY SC 12/09/23 10:00 UNV Furosemide 40 mg DAILY IV 12/09/23 10:00 12/09/23 08:11 40 MG Norepinephrine Bitartrate 250 ml @ 3.75 mls/hr Q24H IV 12/09/23 08:15 12/09/23 08:00 3.75 MLS/HR Midazolam HCl 50 ml @ 5 mls/hr Q10H IV 12/09/23 09:00 UNV Examination Patient lying in bed, under analgesia due to mechanical ventilation General: RASS -1, afebrile (for last 24 hours), mucosae are moist Cardiovascular: Normal S1 and S2. No murmurs, gallops or rubs Respiratory: Mechanically assisted ventilation, equal bilateral airway entree. Clear lung sounds on auscultation Abdomen: Soft, nontender, no organomegaly, normal bowel sounds MSK/skin: Mobilization of limbs cannot be evaluated. Skin is dry and warm. PICC line in right arm Neurological: Orientation cannot be assessed. Opens eyes with verbal stimulus.Follows simple verbal commands. No apparent motor no sensitive deficits. Pupils are isocoric and reactive laboratory and microbiology Laboratory Tests 12/09/23 04:04 Test 12/09/23 04:04 Range/Units Serum Glucose 122 H 74-106 mg/dL Problem List/Assessment/Plan Problem List/Assessment/Plan # Metabolic encephalopathy probably secondary to sepsis vs brain metastasis/infection/stroke -Returned from [facility] with no conclusive diagnosis -Ordered panCT with contrast -Neurology on board # Acute respiratory failure -Continues with mechanical assisted ventilation (VCV VT 400 RR 18 PEEP 5 FIO2 40%) # Aspiration pneumonia -Currently discontinued all antibiotics ((was on ampicillin, ceftriaxone, metronidazole, fluconazole, vancomycin). In higher level of care suspected the patient may have mucormycosis. # Sepsis due to UTI vs pneumonia -Currently discontinue all antibiotics -Ordered pancultures -Ordered infectious disease evaluation # DKA probably secondary to pneumonia - resolved -Has resolved since transferred from [facility] # Space occupying lesion - Rule out brain infection vs metastasis vs stroke -Head MRI spectroscopy was nonconclusive. -Lab workup in higher level of care was negative (includes blastomycosis, QuantiFERON tuberculosis, cryptococcosis, BD glucan), pending nocardia, histoplasmosis and Coccidioides # Diabetic ketoacidosis - Resolved -Continue with insulin sliding scale # UTI -Ordered new culture # YULIANA hemodynamically mediated (baseline creatinine 0.97) - Improved -Will monitor -Ordered panCT with IV contrast # Hypernatremia -Indicated D5W. Also indicated IV lasix # Mixed respiratory acidosis -Monitor # Transaminitis -Improved # Rule out choledocholithiasis/cholangitis -[facility] recommended ERCP as outpatient # Fatty liver -Monitor # Diabetes - Uncontrolled ([id number]: 11.7%) -On insulin sliding scale and Lantus # Diabetic polyneuropathy -Monitor # Hypothyroidism -Continue home medication # Hypertension controlled -Monitor # COPD no exacerbation -Monitor # Chronic right wrist fracture - secondary to mechanical fall -Monitor # DVT of cephalic vein -Under therapeutic enoxaparin Prophylaxis for PUD and DVT: Theraprutic prophylaxis and Pantoprazole Lines 12/09/2023 Right arm PICC line Drips FNT 125 Versed 5 NE 2 Goals of care discussed with family (daughter) for over 18 minutes: Full code status Discussed case with Dr. Benitez, for the family and nurses: Currently discontinued all antibiotics, ordered wooten cultures and wooten CT with IV contrast. Planning to complete trach and PEG. Infectious Disease, Neurology and GI specialist on board. Patient has poor prognosis Critical care time spent including discussion with nursing and family: 72 minutes Plan discussed with: Patient, Other (Nurses) My Orders My Orders Orders - MIRACLE SALGADO RESIDENT Procedure Category Date Status Time Potassium Chl PHA 12/09/23 In Process 20meq/100ml 07:45 D5w 5% (Dextrose 5%) PHA 12/09/23 In Process 07:45 Enoxaparin Sodium PHA 12/09/23 Logged (Lovenox) 10:00 Vitamin D, 25-Hydroxy LAB 12/09/23 Logged 07:48 Vitamin B12 LAB 12/09/23 Logged 07:48 Thyroid Stimulating LAB 12/09/23 Logged Hormone 07:48 Phosphorus LAB 12/09/23 Logged 07:48 Lipid Panel LAB 12/09/23 Logged 07:48 Drug Screen LAB 12/09/23 Logged 07:48 Blood Culture KULWANT 12/09/23 Logged 07:49 Rapid Influenza A&B LAB 12/09/23 Logged 07:49 Covid19 Antigen Maribell LAB 12/09/23 Logged Furosemide Injection PHA 12/09/23 In Process (Lasix Injection) 10:00 Norepinephrine 8 PHA 12/09/23 In Process Mg/250ml Kit 08:15 Midazolam Drip 50 PHA 12/09/23 Logged Mg/50ml (Versed Drip 5 09:00 Date of Service: Dec 09, 2023 Billing Provider: TAD BENITEZ MD Common Visit Codes: [id number] INP/OBS CARE(HIGH) MIRACLE SALGADO RESIDENT Dec 09, 2023 09:05 TAD BENITEZ MD Dec 09, 2023 21:52
[2023-12-09] MEDS ORDERED: DEXTROSE (50%) 50ML SYRG IV PRN ×2 (09:15→16:15)
[2023-12-09] MEDS: POTASSIUM CHL 20MEQ/100ML 100 ML IV SCH ×2 (09:45→20:21)
[2023-12-09] MEDS: D5W 5% 1,000 ML IV SCH (09:47)
[2023-12-09 09:58] LABS: Base Excess -6.8 mmol/L (-2.0-3.0)
[2023-12-09] MEDS ORDERED: cefTRIAXone 2GM/50ML D5W 50 ML IV SCH (10:00)
[2023-12-09] MEDS ORDERED: FLUCONAZOLE 200MG/100ML 100 ML IV SCH (10:00)
[2023-12-09 10:01] LABS: Phosphorus 3.2 mg/dL (2.4-5.1)
[2023-12-09] MEDS: ENOXAPARIN SOD 40 MG/0.4 ML SYRINGE SC SCH (10:07)
--- NOTE | 2023-12-09 11:53 | DVHINCON2 ---
Date Seen: Dec 09, 2023 Referring Physician MD Vera Reason for Consultation YOLANDA History of Present Illness This is a 68-year-old female who presented as a direct transfer from [facility] for continuation of care. Information obtained from records as the patient is currently chemically sedated, endotracheally intubated with FiO2 at 40% PEEP 5, and on low-dose vasopressor. It appears the patient initially presented to the emergency room with a chief complaint of an altered level of consciousness presumed to be secondary to diabetic ketoacidosis which required endotracheal intubation for airway protection. Metabolic encephalopathy was then suspected to be secondary to sepsis with aspiration pneumonia/UTI versus brain metastases/infection/acute CVA. She was then transferred to higher level of care to [facility], as this facility could not complete IV neuroimaging due to YULIANA neither a lumbar puncture as there was no neuro surgical backup. The patient was also suspected of a biliary malignancy with GI recommendations for higher level of care for an eventual ERCP and endoscopic ultrasound. At that time, blood cultures were positive for Klebs iella and fungus in the sputum. Cardiology now consulted for a transesophageal echocardiogram to rule out subacute endocarditis. Significant medical history includes insulin-dependent diabetes mellitus, hypertension, hypothyroidism, COPD, diabetic polyneuropathy, and history of tobacco use. Past Medical History Past medical history reviewed. No other significant than mentioned above. Past Surgical History Hip replacement x3 Right knee replacement Family History: Patient reports no known family medical history. Family History Family history reviewed. Noncontributory. Social History Per records patient denied any use of tobacco, alcohol, or illicit drugs. Allergies: Coded Allergies: NO KNOWN ALLERGIES (Unverified , 10/26/12) Home Meds Active Scripts Glipizide (Glipizide) 10 Mg Tab, 1 TAB PO DAILY for 30 Days, #30 TAB 5 Refills Prov:MIRACLE SALGADO RESIDENT 10/12/23 Amoxicillin & Pot Clavulanate (Augmentin) 500 Mg Tab, 1 TAB PO BID for 10 Days, #20 TAB Prov:MIRACLE SALGADO 10/12/23 Cyanocobalamin (B-12) 1,000 Mcg Delbert, 1000 MCG PO DAILY for 30 Days, #30 DELBERT Prov:MIRACLE SALGADO RESIDENT 10/12/23 Ergocalciferol (VITAMIN D 02565 UNIT) 50,000 [place], [address] UNIT PO Q7D for 30 Days, #10 CAP Prov:MIRACLE SALGADO RESIDENT 10/12/23 Acetaminophen (Acetaminophen) 325 Mg Tab, 650 MG PO Q6HP PRN for 10 Days, #80 TAB Prov:MIRACLE SALGADO RESIDENT 10/12/23 Insulin Aspart (Insulin Aspart) 100 Unit/Ml Inj, 100 UNIT SC TIDWM for 30 Days, #1 INJ 4 Refills insulin per sliding scale qac tid 150-200: 2 units 201-250: 4 units 251-300: 8 units' 301-350: 12 units 351-400: 15 units >400 call doctor Prov:FREEDOM RAZO MD 05/26/23 Insulin Glargine (Lantus) 100 Unit/Ml Inj, 20 UNIT SC QPM for 30 Days, #1 INJ 3 Refills Prov:FREEDOM RAZO MD 05/26/23 Reported Medications Atorvastatin Calcium (ATORVASTATIN CALCIUM) 20 Mg Tab, 20 MG PO DAILY, TAB 10/08/23 Lisinopril (Lisinopril) 10 Mg Tab, 10 MG PO DAILY, MG 10/08/23 Pregabalin (Pregabalin) 150 Mg Cap, 150 MG PO BID, CAP 10/08/23 Pramipexole Dihydrochloride (Pramipexole Dihydrochlori) 0.75 Mg Tab, 0.75 MG PO TID, TAB 10/08/23 Levothyroxine Sodium (Levothyroxine Sodium) 150 Mcg Tab, 150 MCG PO QAM for 30 Days 08/12/17 Home Meds Home medications reviewed. Current Medications Current Medications Medications (Trade) Dose Ordered Sig/Leslie Route PRN Reason Start Time Stop Time Status Last Admin Albuterol (Ventolin Medneb) 2.5 mg Q4HR PRN NEB SHORTNESS OF BREATH 12/08/23 19:30 12/09/23 07:13 Ipratropium [place] (Atrovent Medneb) 0.5 mg Q4HR NEB 12/08/23 22:00 12/09/23 07:13 Sodium Chloride 1,000 ml @ 100 mls/hr Q10H IV 12/08/23 19:30 12/09/23 07:46 DC 12/08/23 21:08 Ondansetron HCl (Zofran) 4 mg Q4HP PRN IV NAUSEA / VOMITING 12/08/23 19:30 Diagnostic Test (Pha) (Accu-Chek Comfort Curve T) 1 strip Q4HR 12/08/23 22:00 12/09/23 09:17 DC 12/09/23 06:00 Insulin Human Regular (InsuLIN R) Q6HR SC 12/09/23 00:00 12/09/23 09:17 DC Dextrose 50 ml UD PRN IV Blood Sugar LESS THAN 60 12/08/23 19:30 12/09/23 09:17 DC 12/08/23 23:07 Pantoprazole Sodium (Protonix) 40 mg DAILY IV 12/09/23 10:00 Vancomycin HCl 0 ml @ 0 mls/hr UD IV 12/08/23 20:00 12/09/23 09:03 DC Ceftriaxone Sodium/Dextrose 50 ml @ 50 mls/hr DAILY IV 12/09/23 10:00 12/09/23 09:03 DC Ampicillin Sodium 2 gm/Sodium Chloride 100 ml @ 100 mls/hr Q4HR IV 12/08/23 22:00 12/09/23 09:03 DC 12/09/23 03:57 Metronidazole 100 ml @ 100 mls/hr Q8HR IV 12/08/23 22:00 12/09/23 09:03 DC 12/09/23 06:50 Fluconazole 100 ml @ 100 mls/hr Q1HR IV 12/08/23 20:00 12/08/23 23:59 DC 12/09/23 07:00 Fluconazole 100 ml @ 100 mls/hr 10,11,12,13 IV 12/09/23 10:00 12/09/23 09:03 DC Fentanyl Citrate 250 ml @ 2.5 mls/hr Q24H IV 12/08/23 20:30 12/09/23 06:55 Vancomycin HCl 300 ml @ 200 mls/hr Q12H IV 12/08/23 20:30 12/09/23 09:03 DC 12/09/23 01:21 Dextrose/Sodium Chloride 1,000 ml @ 100 mls/hr Q10H IV 12/09/23 01:15 12/09/23 09:50 DC Hydralazine HCl (Apresoline Injection) 10 mg Q4HP PRN IV SBP>150 12/09/23 05:30 12/09/23 05:50 Potassium Chloride 100 ml @ 50 mls/hr Q2H IV 12/09/23 07:45 12/09/23 11:44 DC 12/09/23 10:06 Dextrose 1,000 ml @ 75 mls/hr [id number] IV 12/09/23 07:45 12/09/23 09:47 Enoxaparin Sodium (Lovenox) 40 mg DAILY SC 12/09/23 10:00 12/09/23 10:07 Furosemide (Lasix Injection) 40 mg DAILY IV 12/09/23 10:00 12/09/23 08:11 Norepinephrine Bitartrate 250 ml @ 3.75 mls/hr Q24H IV 12/09/23 08:15 12/09/23 08:00 Midazolam HCl 50 ml @ 5 mls/hr Q10H IV 12/09/23 08:15 12/09/23 08:56 DC Midazolam HCl 50 ml @ 5 mls/hr Q10H IV 12/09/23 09:00 12/09/23 07:00 Diagnostic Test (Pha) (Accu-Chek Comfort Curve T) 1 strip IQ4HR 12/09/23 12:00 Insulin Human Regular (InsuLIN R) IQ4HR SC 12/09/23 12:00 Dextrose 50 ml UD PRN IV Blood Sugar LESS THAN 60 12/09/23 09:15 Review of Systems Constitutional: No symptom reported Ears, Nose, & Throat: No symptom reported Eyes: No symptom reported Neurological: ALOC Pulmonary/Respiratory: No symptom reported Cardiovascular: No symptom reported Gastrointestinal: No symptom reported Genitourinary: No symptom reported Musculoskeletal: No symptom reported Skin: No symptom reported Psychiatric: No symptom reported Endocrine: No symptom reported Hemotologic/Lymphatic: No symptom reported Vital Signs Vital Signs Date Time Temp Pulse Resp B/P (MAP) Pulse Ox O2 Delivery O2 Flow Rate FiO2 12/09/23 11:35 157/66 12/09/23 11:16 77 24 100 40 12/09/23 06:00 Mechanical Ventilator+ 12/09/23 04:00 99.1 99.1 Physical Exam General Appearance: Endotracheally intubated with FiO2 at 40% PEEP 5. Chemically sedated. Withdrawn Head Exam: Normal inspection Neck Exam: Normal inspection. Normal alignment Pulmonary/Respiratory: Crackles to bilateral breath sounds. Endotracheally intubated Cardiovascular/Chest: Regular rate and rhythm. S1, S2. Sinus rhythm. No murmurs Peripheral Pulses: 2+ Radial (R). 2+ Radial (L). 2+ Pedal (R). 2+ Pedal (L) Abdominal Exam: Hypoactive bowel sounds. Soft. Ankle Exam: Positive ankle pitting edema L>R, 2+ Lower extremities: Positive lower extremity pitting edema L>R, 2+ Upper extremities: Positive upper extremity edema Neuro/Mental Status: Chemically sedated. Withdrawn Appearance: Withdrawn. Anasarca present Skin Exam: Normal inspection. Pale color. Warm. Dry Labs/Diagnostic Data Labs Test 12/09/23 09:46 12/09/23 09:28 12/09/23 06:57 12/09/23 06:26 Range/Units Blood Gas Specimen Type Arterial Blood Gas Sample Site Left radial Blood Gas Patient Temperature 37.0 Arterial Blood Date Drawn [id number] Arterial Blood pH 7.346 L 7.350-7.450 Arterial Blood Partial Pressure CO2 33.9 32.0-45.0 mmHg Arterial Blood Partial Pressure O2 95.7 83.0-108.0 mmHg Arterial Blood HCO3 18.1 L 21.0-28.0 mmol/L Arterial Blood Oxygen Saturation 96.0 94.0-98.0 % Arterial Blood Base Excess -6.8 L -2.0-3.0 mmol/L Arterial Blood Oxyhemoglobin 95.4 94.0-98.0 % Arterial Blood Carboxyhemoglobin 0.3 L 0.5-1.5 % Arterial Blood Methemoglobin 0.3 0.0-1.5 % Wallace Test Modified Blood Gas Total Hemoglobin 9.30 L 12.0-16.0 g/dL Blood Gas Set Respiration Rate 18.0 Blood Gas Modality Vent - ac Blood Gas Spontaneous Rate 20 FiO2 % 30.0 Blood Gas Tidal Volume 400.0 Blood Gas Inspiratory Pressure 15.0 Blood Gas PEEP or CPAP 5.0 Bl Gas Inspiratory/Expiratory Ratio 1:1.2 Specimen Drawn By rohit randall Serum Glucose 140 H 74-106 mg/dL Phosphorus Level 3.2 2.4-5.1 mg/dL Triglycerides Level 136 < 150 mg/dL Cholesterol Level 96 < 200 mg/dL LDL Cholesterol 38 < 100 mg/dL HDL Cholesterol 32 L 40-59 mg/dL Vitamin B12 Level 2537 H 211-911 pg/mL Vitamin D 25-Hydroxy 28.5 L 30.0-100 ng/mL Thyroid Stimulating Hormone (TSH) 17.87 H 0.55-4.78 uIU/mL Blood Gas Comments increased fio2 to 40 Blood Gas Critical Value Read Back yes Blood Gas Notified Whom nick daniels Blood Gas Notified Time [id number] Blood Gas Notified By rohit randall POC Glucose 104 70-106 mg/dl Test 12/09/23 04:04 12/08/23 20:00 12/08/23 19:00 Range/Units White Blood Count 8.5 4.4-10.8 10^3/uL Red Blood Count 2.50 L 4.0-5.20 10^6/uL Hemoglobin 7.4 L 12.2-16.2 g/dL Hematocrit 23.1 L 36.0-46.0 % Mean Corpuscular Volume 92.4 80.0-100.0 fL Mean Corpuscular Hemoglobin 29.5 28.0-32.0 pg Mean Corpuscular Hemoglobin Concent 31.9 L 32.0-36.0 g/dL Red Cell Distribution Width 16.0 H 11.8-14.3 % Platelet Count 350 140-450 10^3/uL Mean Platelet Volume 9.2 6.9-10.8 fL Neutrophils (%) (Auto) 56.8 37.0-80.0 % Lymphocytes (%) (Auto) 23.7 10.0-50.0 % Monocytes (%) (Auto) 6.5 0.0-12.0 % Eosinophils (%) (Auto) 12.3 H 0.0-7.0 % Basophils (%) (Auto) 0.7 0.0-2.0 % Neutrophils # (Auto) 4.8 1.6-8.6 10 ^3/uL Lymphocytes # (Auto) 2.0 0.4-5.4 10 ^3/uL Monocytes # (Auto) 0.6 0-1.3 10 ^3/uL Eosinophils # (Auto) 1.0 H 0-0.8 10 ^3/uL Basophils # (Auto) 0.1 0-0.2 10 ^3/uL Nucleated Red Blood Cells 0.1 % Sodium Level 146 H 136-145 mmol/L Potassium Level 3.4 L 3.5-5.1 mmol/L Chloride Level 116 H 98-107 mmol/L Carbon Dioxide Level 22 20-30 mmol/L Anion Gap 8 5-15 Blood Urea Nitrogen 11 9-23 mg/dL Creatinine 0.94 0.550-1.02 mg/dL Glomerular Filtration Rate Calc 66 >90 mL/min BUN/Creatinine Ratio 11.7 10.0-20.0 Calcium Level 8.9 8.7-10.4 mg/dL Magnesium Level 1.9 1.6-2.6 mg/dL Total Bilirubin < 0.2 L 0.2-1.0 mg/dL Aspartate Amino Transferase (AST) 40 13-40 U/L Alanine Aminotransferase (ALT) 21 7-40 U/L Alkaline Phosphatase 278 H 46-116 U/L Total Protein 5.5 L 5.7-8.2 g/dL Albumin 3.0 L 3.2-4.8 g/dL Prothrombin Time 11.4 9.3-11.8 sec Prothrombin Time INR 1.08 0.9-1.15 Urine Color Yellow Yellow Urine Clarity Clear Clear Urine pH 6.5 5.0-9.0 Urine Specific [place] 1.021 1.001-1.035 Urine Protein 1+ H Negative Urine Ketones Negative Negative Urine Blood 2+ H Negative /uL Urine Nitrite Negative Negative Urine Bilirubin Negative Negative Urine Urobilinogen Normal Negative mg/dL Urine Leukocyte Esterase 3+ Negative /uL Urine RBC 4 0 - 4 /hpf Urine WBC 93 0 - 5 /hpf Urine WBC Clumps Present None Seen /hpf Urine Squamous Epithelial Cells Few <5 /hpf Urine Bacteria Few H None Seen /hpf Urine Glucose Trace Normal mg/dL Microbiology Date/Time Source Procedure Growth Status 12/08/23 19:00 Urine - Catheterized Urine Culture - Preliminary Resulted 12/08/23 19:00 Sputum Gram Stain Pending Resulted 12/08/23 19:00 Sputum Respiratory Culture - Preliminary Resulted Assessment Sepsis rule out subacute endocarditis Suspected brain malignancy Metabolic encephalopathy likely secondary to above Insulin-dependent diabetes mellitus, HgBA1C 11.7% Diabetic ketoacidosis, resolved Bilateral upper extremity thrombus Acute on chronic anemia Hypokalemia Hypothyroidism Plan/Recommendation (Dr. Mendieta) Echocardiogram revealed an EF of 55% as well as bilateral carotid ultrasound reveling no evidence of stenosis. The patient with sepsis is scheduled for a transesophageal echocardiogram to rule out subacute endocarditis as first available. All risks and benefits of the procedure were discussed with next of kin, daughter Chelsea Sandy, who agrees to proceed with intervention. All questions answered. In the meantime, continue ABX therapy per primary care team. Currently on DVT/VTE prophylaxis, monitor H&H closely. Agree with preload reduction. Thank you for allowing us to participate in this patient's care. Please call if you have any questions or concerns. Critical care time: 40 min. This medical document was created using an electronic medical record system with voice recognition software and computerized dictation system. Although this document has been carefully reviewed, there might still be some phonetic and typographical errors. Occasional wrong-word or ``sound-alike substitutions may have occurred due to the inherent limitations of voice recognition software. These areas are purely typographical due to imperfections of the software programs and do not reflect any compromise in the patient's medical care. Please read the chart carefully and recognize, using context, where these substitutions have occurred. Plan discussed with: Daughter, [place] Date of Service: Dec 09, 2023 Billing Provider: CHARITO MENDIETA MD Cardiology Common Codes: [id number] CARE 30-74 MIN [facility] Dec 09, 2023 11:53
[2023-12-09] MEDS: ACCU-CHEK COMFORT CURVE STRIP VI SCH ×2 (12:16→18:03)
[2023-12-09] MEDS: InsuLIN REG 1unit/0.01ml Soln (100units/ml) SC SCH ×3 (12:35→18:12)
[2023-12-09] MEDS: PANTOPRAZOLE 40 MG/10 ML VIAL INJ IV SCH (12:40)
[2023-12-09] MEDS: FUROSEMIDE 40 MG/4 ML VIAL IV ONE (12:44)
--- NOTE | 2023-12-09 13:14 | DVH ---
Bilateral Upper Extremity Venous Duplex Date: 12/09/2023 02:10 PM Clinical History: bilateral upper limb swelling Comparison: US BILAT LOWER DVT on DOS: 10/10/23 Images submitted: Findings: Duplex Doppler evaluation of the venous systems of the right and left lower neck and upper extremitie s including color Doppler and spectral/pulsed waveform analysis was performed. RIGHT SIDE: The internal jugular vein demonstrates appropriate compressibility and waveform variability. The subclavian vein is patent on color Doppler evaluation without intraluminal thrombus and demonstra wayne waveform variability. The visualized portion of the brachiocephalic vein is patent on color Doppler evaluation without intr aluminal thrombus and demonstrates waveform variability. The axillary vein demonstrates appropriate compressibility and waveform variability. The brachial veins demonstrate appropriate compressibility and patency on Doppler evaluation. Thrombus in the RIGHT cephalic and basilic vein. LEFT SIDE: The internal jugular vein demonstrates appropriate compressibility and waveform variability. The subclavian vein is patent on color Doppler evaluation without intraluminal thrombus and demonstra wayne waveform variability. The visualized portion of the brachiocephalic vein is patent on color Doppler evaluation without intr aluminal thrombus and demonstrates waveform variability. The axillary vein demonstrates appropriate compressibility and waveform variability. Thrombus in the LEFT cephalic and brachial vein. The cephalic vein demonstrates appropriate compressibility and patency on Doppler evaluation. IMPRESSION: Thrombus in the LEFT cephalic and brachial vein. Thrombus in the RIGHT cephalic and basilic vein. If clinical concern/symptoms persist or worsen, short-interval follow-up study is suggested. END IMPRESSION:
[2023-12-09] MEDS: LIDOCAINE 1% (LOCAL ANESTH.) PF 5ml SDV ID ONE (14:04)
--- NOTE | 2023-12-09 14:09 | DVH ---
Bilateral lower extremity venous duplex Clinical History: SWELLING Comparison: US BI LAT UPPER DVT on DOS: 12/09/23, US BILAT LOWER DVT on DOS: 10/10/23 Technique: Duplex Doppler evaluation of the deep venous systems of both lower extremities from the common femora l veins to the popliteal veins including color Doppler and spectral/pulsed waveform analysis was perf ormed. Findings: RIGHT SIDE: The common femoral vein demonstrates appropriate compressibility and waveform variability. There is compressibility/patency of the great saphenous vein at the proximal thigh. The femoral vein demonstrates appropriate compressibility and waveform variability. The deep femoral vein demonstrates appropriate compressibility and waveform variability. The popliteal vein demonstrates appropriate compressibility and waveform variability. There is normal compressibility at the tibioperoneal trunk. LEFT SIDE: The common femoral vein demonstrates appropriate compressibility and waveform variability. There is compressibility/patency of the great saphenous vein at the proximal thigh. The femoral vein demonstrates appropriate compressibility and waveform variability. The deep femoral vein demonstrates appropriate compressibility and waveform variability. The popliteal vein demonstrates appropriate compressibility and waveform variability. There is normal compressibility at the tibioperoneal trunk. Impression: No right or left femoropopliteal venous thrombosis.
[2023-12-09 15:24] LABS: Rapid Influenza A Negative (Negative); Rapid Influenza B Negative (Negative)
[2023-12-09 15:24] LABS: COVID19 ANTIGEN SOFIA FIA NEGATIVE (NEGATIVE)
--- NOTE | 2023-12-09 18:44 | DVHINCON2 ---
Date of service: Dec 09, 2023 Family History: Patient reports no known family medical history. Allergies: Coded Allergies: NO KNOWN ALLERGIES (Unverified , 10/26/12) Home Meds Active Scripts Glipizide (Glipizide) 10 Mg Tab, 1 TAB PO DAILY for 30 Days, #30 TAB 5 Refills Prov:MIRACLE SALGADO [facility] 10/12/23 Amoxicillin & Pot Clavulanate (Augmentin) 500 Mg Tab, 1 TAB PO BID for 10 Days, #20 TAB Prov:MIRACLE SALGADO [facility] 10/12/23 Cyanocobalamin (B-12) 1,000 Mcg Delbert, 1000 MCG PO DAILY for 30 Days, #30 DELBERT Prov:MIRACLE SALGADO [facility] 10/12/23 Ergocalciferol (VITAMIN D 39246 UNIT) 50,000 [place], [address] UNIT PO Q7D for 30 Days, #10 CAP Prov:MIRACLE SALGADO [facility] 10/12/23 Acetaminophen (Acetaminophen) 325 Mg Tab, 650 MG PO Q6HP PRN for 10 Days, #80 TAB Prov:MIRACLE SALGADO [facility] 10/12/23 Insulin Aspart (Insulin Aspart) 100 Unit/Ml Inj, 100 UNIT SC TIDWM for 30 Days, #1 INJ 4 Refills insulin per sliding scale qac tid 150-200: 2 units 201-250: 4 units 251-300: 8 units' 301-350: 12 units 351-400: 15 units >400 call doctor Prov:FREEDOM RAZO MD 05/26/23 Insulin Glargine (Lantus) 100 Unit/Ml Inj, 20 UNIT SC QPM for 30 Days, #1 INJ 3 Refills Prov:FREEDOM RAZO MD 05/26/23 Reported Medications Atorvastatin Calcium (ATORVASTATIN CALCIUM) 20 Mg Tab, 20 MG PO DAILY, TAB 10/08/23 Lisinopril (Lisinopril) 10 Mg Tab, 10 MG PO DAILY, MG 10/08/23 Pregabalin (Pregabalin) 150 Mg Cap, 150 MG PO BID, CAP 10/08/23 Pramipexole Dihydrochloride (Pramipexole Dihydrochlori) 0.75 Mg Tab, 0.75 MG PO TID, TAB 10/08/23 Levothyroxine Sodium (Levothyroxine Sodium) 150 Mcg Tab, 150 MCG PO QAM for 30 Days 08/12/17 Current Medications Current Medications Medications (Trade) Dose Ordered Sig/Leslie Route PRN Reason Start Time Stop Time Status Last Admin Albuterol (Ventolin Medneb) 2.5 mg Q4HR PRN NEB SHORTNESS OF BREATH 12/08/23 19:30 12/09/23 18:17 Ipratropium [place] (Atrovent Medneb) 0.5 mg Q4HR NEB 12/08/23 22:00 12/09/23 18:17 Sodium Chloride 1,000 ml @ 100 mls/hr Q10H IV 12/08/23 19:30 12/09/23 07:46 DC 12/08/23 21:08 Ondansetron HCl (Zofran) 4 mg Q4HP PRN IV NAUSEA / VOMITING 12/08/23 19:30 Diagnostic Test (Pha) (Accu-Chek Comfort Curve T) 1 strip Q4HR 12/08/23 22:00 12/09/23 09:17 DC 12/09/23 06:00 Insulin Human Regular (InsuLIN R) Q6HR SC 12/09/23 00:00 12/09/23 09:17 DC Dextrose 50 ml UD PRN IV Blood Sugar LESS THAN 60 12/08/23 19:30 12/09/23 09:17 DC 12/08/23 23:07 Pantoprazole Sodium (Protonix) 40 mg DAILY IV 12/09/23 10:00 12/09/23 12:40 Vancomycin HCl 0 ml @ 0 mls/hr UD IV 12/08/23 20:00 12/09/23 09:03 DC Ceftriaxone Sodium/Dextrose 50 ml @ 50 mls/hr DAILY IV 12/09/23 10:00 12/09/23 09:03 DC Ampicillin Sodium 2 gm/Sodium Chloride 100 ml @ 100 mls/hr Q4HR IV 12/08/23 22:00 12/09/23 09:03 DC 12/09/23 03:57 Metronidazole 100 ml @ 100 mls/hr Q8HR IV 12/08/23 22:00 12/09/23 09:03 DC 12/09/23 06:50 Fluconazole 100 ml @ 100 mls/hr Q1HR IV 12/08/23 20:00 12/08/23 23:59 DC 12/09/23 07:00 Fluconazole 100 ml @ 100 mls/hr 10,11,12,13 IV 12/09/23 10:00 12/09/23 09:03 DC Fentanyl Citrate 250 ml @ 2.5 mls/hr Q24H IV 12/08/23 20:30 12/09/23 06:55 Vancomycin HCl 300 ml @ 200 mls/hr Q12H IV 12/08/23 20:30 12/09/23 09:03 DC 12/09/23 01:21 Dextrose/Sodium Chloride 1,000 ml @ 100 mls/hr Q10H IV 12/09/23 01:15 12/09/23 09:50 DC Hydralazine HCl (Apresoline Injection) 10 mg Q4HP PRN IV SBP>150 12/09/23 05:30 12/09/23 05:50 Potassium Chloride 100 ml @ 50 mls/hr Q2H IV 12/09/23 07:45 12/09/23 11:44 DC 12/09/23 09:45 Dextrose 1,000 ml @ 75 mls/hr [id number] IV 12/09/23 07:45 12/09/23 09:47 Enoxaparin Sodium (Lovenox) 40 mg DAILY SC 12/09/23 10:00 12/09/23 10:07 Furosemide (Lasix Injection) 40 mg DAILY IV 12/09/23 10:00 12/09/23 08:11 Norepinephrine Bitartrate 250 ml @ 3.75 mls/hr Q24H IV 12/09/23 08:15 12/09/23 08:00 Midazolam HCl 50 ml @ 5 mls/hr Q10H IV 12/09/23 08:15 12/09/23 08:56 DC Midazolam HCl 50 ml @ 5 mls/hr Q10H IV 12/09/23 09:00 12/09/23 12:09 Diagnostic Test (Pha) (Accu-Chek Comfort Curve T) 1 strip IQ4HR 12/09/23 12:00 12/09/23 16:13 DC 12/09/23 12:16 Insulin Human Regular (InsuLIN R) IQ4HR SC 12/09/23 12:00 12/09/23 16:13 DC 12/09/23 12:35 Dextrose 50 ml UD PRN IV Blood Sugar LESS THAN 60 12/09/23 09:15 12/09/23 16:13 DC Sodium Chloride (Saline Lock Ns) 10 ml QSHIFT@10,22 IV 12/09/23 22:00 Diagnostic Test (Pha) (Accu-Chek Comfort Curve T) 1 strip Q6HR 12/09/23 18:00 12/09/23 18:03 Insulin Human Regular (InsuLIN R) Q6HR SC 12/09/23 18:00 12/09/23 18:12 Dextrose 50 ml UD PRN IV Blood Sugar LESS THAN 60 12/09/23 16:15 Vital Signs Vital Signs Date Time Temp Pulse Resp B/P (MAP) Pulse Ox O2 Delivery O2 Flow Rate FiO2 12/09/23 17:15 68 16 121/52 (75) 100 12/09/23 16:00 98.4 98.4 12/09/23 15:49 40 12/09/23 06:00 Mechanical Ventilator+ Labs/Diagnostic Data Labs Test 12/09/23 18:25 12/09/23 18:00 12/09/23 14:45 12/09/23 14:30 Range/Units POC Glucose 169 H 70-106 mg/dl Influenza Type A Antigen Negative Negative Influenza Type B Antigen Negative Negative SARS-CoV-2 Antigen (Rapid) Negative NEGATIVE Test 12/09/23 09:46 12/09/23 09:28 12/09/23 06:57 12/09/23 04:04 Range/Units Blood Gas Specimen Type Arterial Blood Gas Sample Site Left radial Blood Gas Patient Temperature 37.0 Arterial Blood Date Drawn [id number] Arterial Blood pH 7.346 L 7.350-7.450 Arterial Blood Partial Pressure CO2 33.9 32.0-45.0 mmHg Arterial Blood Partial Pressure O2 95.7 83.0-108.0 mmHg Arterial Blood HCO3 18.1 L 21.0-28.0 mmol/L Arterial Blood Oxygen Saturation 96.0 94.0-98.0 % Arterial Blood Base Excess -6.8 L -2.0-3.0 mmol/L Arterial Blood Oxyhemoglobin 95.4 94.0-98.0 % Arterial Blood Carboxyhemoglobin 0.3 L 0.5-1.5 % Arterial Blood Methemoglobin 0.3 0.0-1.5 % Wallace Test Modified Blood Gas Total Hemoglobin 9.30 L 12.0-16.0 g/dL Blood Gas Set Respiration Rate 18.0 Blood Gas Modality Vent - ac Blood Gas Spontaneous Rate 20 FiO2 % 30.0 Blood Gas Tidal Volume 400.0 Blood Gas Inspiratory Pressure 15.0 Blood Gas PEEP or CPAP 5.0 Bl Gas Inspiratory/Expiratory Ratio 1:1.2 Specimen Drawn By rohit randall Serum Glucose 140 H 74-106 mg/dL Phosphorus Level 3.2 2.4-5.1 mg/dL Triglycerides Level 136 < 150 mg/dL Cholesterol Level 96 < 200 mg/dL LDL Cholesterol 38 < 100 mg/dL HDL Cholesterol 32 L 40-59 mg/dL Vitamin B12 Level 2537 H 211-911 pg/mL Vitamin D 25-Hydroxy 28.5 L 30.0-100 ng/mL Thyroid Stimulating Hormone (TSH) 17.87 H 0.55-4.78 uIU/mL Blood Gas Comments increased fio2 to 40 Blood Gas Critical Value Read Back yes Blood Gas Notified Whom nick daniels Blood Gas Notified Time [id number] Blood Gas Notified By rohit randall White Blood Count 8.5 4.4-10.8 10^3/uL Red Blood Count 2.50 L 4.0-5.20 10^6/uL Hemoglobin 7.4 L 12.2-16.2 g/dL Hematocrit 23.1 L 36.0-46.0 % Mean Corpuscular Volume 92.4 80.0-100.0 fL Mean Corpuscular Hemoglobin 29.5 28.0-32.0 pg Mean Corpuscular Hemoglobin Concent 31.9 L 32.0-36.0 g/dL Red Cell Distribution Width 16.0 H 11.8-14.3 % Platelet Count 350 140-450 10^3/uL Mean Platelet Volume 9.2 6.9-10.8 fL Neutrophils (%) (Auto) 56.8 37.0-80.0 % Lymphocytes (%) (Auto) 23.7 10.0-50.0 % Monocytes (%) (Auto) 6.5 0.0-12.0 % Eosinophils (%) (Auto) 12.3 H 0.0-7.0 % Basophils (%) (Auto) 0.7 0.0-2.0 % Neutrophils # (Auto) 4.8 1.6-8.6 10 ^3/uL Lymphocytes # (Auto) 2.0 0.4-5.4 10 ^3/uL Monocytes # (Auto) 0.6 0-1.3 10 ^3/uL Eosinophils # (Auto) 1.0 H 0-0.8 10 ^3/uL Basophils # (Auto) 0.1 0-0.2 10 ^3/uL Nucleated Red Blood Cells 0.1 % Sodium Level 146 H 136-145 mmol/L Chloride Level 116 H 98-107 mmol/L Carbon Dioxide Level 22 20-30 mmol/L Anion Gap 8 5-15 Blood Urea Nitrogen 11 9-23 mg/dL Creatinine 0.94 0.550-1.02 mg/dL Glomerular Filtration Rate Calc 66 >90 mL/min BUN/Creatinine Ratio 11.7 10.0-20.0 Calcium Level 8.9 8.7-10.4 mg/dL Magnesium Level 1.9 1.6-2.6 mg/dL Total Bilirubin < 0.2 L 0.2-1.0 mg/dL Aspartate Amino Transferase (AST) 40 13-40 U/L Alanine Aminotransferase (ALT) 21 7-40 U/L Alkaline Phosphatase 278 H 46-116 U/L Total Protein 5.5 L 5.7-8.2 g/dL Albumin 3.0 L 3.2-4.8 g/dL Test 12/08/23 20:00 12/08/23 19:00 Range/Units Prothrombin Time 11.4 9.3-11.8 sec Prothrombin Time INR 1.08 0.9-1.15 Urine Color Yellow Yellow Urine Clarity Clear Clear Urine pH 6.5 5.0-9.0 Urine Specific [place] 1.021 1.001-1.035 Urine Protein 1+ H Negative Urine Ketones Negative Negative Urine Blood 2+ H Negative /uL Urine Nitrite Negative Negative Urine Bilirubin Negative Negative Urine Urobilinogen Normal Negative mg/dL Urine Leukocyte Esterase 3+ Negative /uL Urine RBC 4 0 - 4 /hpf Urine WBC 93 0 - 5 /hpf Urine WBC Clumps Present None Seen /hpf Urine Squamous Epithelial Cells Few <5 /hpf Urine Bacteria Few H None Seen /hpf Urine Glucose Trace Normal mg/dL Microbiology Date/Time Source Procedure Growth Status 12/08/23 19:00 Nose MRSA Screen - Final Complete 12/08/23 19:00 Urine - Catheterized Urine Culture - Preliminary Resulted 12/08/23 19:00 Sputum Gram Stain - Final Resulted 12/08/23 19:00 Sputum Respiratory Culture - Preliminary Resulted Problems(with codes): (1) Hospital-acquired pneumonia (2) COPD (chronic obstructive pulmonary disease) (3) DKA (diabetic ketoacidosis) (4) HTN (hypertension) (5) Closed right hip fracture Plan/Recommendation ASSESSMENT AND PLAN: ID Problem List: - Aspiration pneumonia - Acute respiratory failure - Diabetic Ketoacidosis (DKA) - Sepsis due to UTI vs pneumonia - Acute Kidney Injury ([place]) - Hypernatremia - Transaminitis - Fatty liver - Uncontrolled diabetes (A1C of 11.7) - Hypothyroidism - Hypertension - COPD without exacerbation - Chronic kidney disease (CKD) Assessment: This is a 68-year-old female with a past medical history of diabetes, hypertension, recurrent DKA, hypothyroidism, obesity, COPD, neuropathies, mechanical falls, liver cirrhosis, and multiple joint replacements. The patient presented to the ED with acute loss of consciousness on 11/15/2023, subsequently diagnosed with DKA and an upper GI bleed. While at [facility], a CT and MRI of the head showed concerning lesions for metastasis vs. infectious process and gallbladder issues. Due to renal failure, these images were performed without contrast. An ERCP at [facility] showed no gallstones or common bile duct obstruction. Currently, the patient is reintubated on minimal sedation and receiving broad-spectrum antibiotics for presumed meningitis and other infections. Plan: - Continue vancomycin and ceftriaxone. - Stop metronidazole at this time. - Continue fluconazole. - Stop ampicillin this time. - Blood cultures monitoring. - Consider contrasted MRI head imaging. - Consider contrasted CT chest imaging. - Monitor respiratory status and adjust ventilator settings as necessary. - Monitor and manage blood glucose levels. - Supportive care as needed. Isolation Precautions: Standard Assessment and plan was discussed with the patient as written above. Plan is subject to change pending incorporation of new incoming information/diagnostics. Updates may be added as addendum at the bottom (OR TOP) of this note. Thank you for interesting consult. ID will continue to follow. Please contact Infectious disease for any questions or concerns. Nithin Carrasco M.D. [facility] Ph: ? History: The patient's chart and medications were reviewed in detail, and the patient was seen and examined. History obtained from: patient. Inna Sanderson is a 68 y.o. female, with a past medical history of diabetes, CSH, hypertension, hypothyroidism, DKA, obesity, COPD, neuropathies, mechanical fall, and liver cirrhosis, who presented with acute loss of consciousness on 11/15/2023. Review of Systems: A complete 10 system review of systems was completed and negative except as noted in the HPI or here. ROS: - CONSTITUTIONAL: Denies weight loss, fever, and chills. - HEENT: Denies changes in vision and hearing. - RESPIRATORY: Denies SOB and cough. - CV: Denies palpitations and chest pain. - GI: Denies abdominal pain, nausea, vomiting, and diarrhea. - : Denies dysuria and urinary frequency. - MSK: Denies myalgia and joint pain. - SKIN: Denies rash and pruritus. - NEUROLOGICAL: Denies headache and syncope. - PSYCHIATRIC: Denies recent changes in mood, anxiety, and depression. Past Medical History: - Diabetes - Hypertension - Hypothyroidism - Obesity - COPD - Neuropathies - Mechanical falls - Liver cirrhosis Past Surgical History: - Three hip replacements - Right knee replacement Home Medications: - Insulin - Ibuprofen - Levothyroxine - Mirapex - Precaulin Allergies: No known allergies. Family History: - Prostate cancer (Father) - Diabetes (Sister) - Prostate cancer (Brother) Social History: - Marital status: (details not on file) - Smoking status: Quit smoking two years ago, 40 pack-year history - Alcohol use: Never - Drug use: Never - Sexual activity: Not currently Social Determinants of Health: - Financial Resource Strain: Low Risk - Food Insecurity: Low Risk - Transportation Needs: Low Risk Objective: Physical Exam: - General: NAD - Neck: Supple. No masses. - HEENT: PERRL. Normal lids and conjunctiva. Moist mucous membranes. Oropharynx without lesions, exudates, or erythema. Normal appearance of the external aspects of the nose and ears. - Heart: Regular rhythm, normal rate. No murmur. No lower extremity edema. - Lungs: Normal respiratory effort. Clear to auscultation bilaterally. No wheezes. No crackles. - Abdomen: Soft. Non-tender. Non-distended. No masses or abdominal hernia. - MSK: No digital cyanosis. Normal strength and tone in all 4 limbs. - Skin: Warm and dry, no rashes. - Neuro: Alert. No facial droop or slurred speech. Extra-ocular movements intact. Sensation intact to soft touch in all 4 limbs. - Psych: Appropriate mood. Full affect. Oriented to person, place, time, and situation. Lines: - Active Lines: Peripheral IV Line - 12/09/23 0810 Left Anterior (palmar) Upper Arm 20 gauge <1 day Diagnostic Studies: Available diagnostic studies were reviewed personally. Significant relevant results and findings are outlined below or addressed in the Assessment and Plan above. Pertinent Imaging: CT Head (11/17/2023): - Interval development of hyper-dense lesions in the bilateral cerebral hemispheres and right occipital lobe measuring 2.6 cm, concerning for metastasis vs atypical infection. MRI Head (12/05/2023): - Multiple enhancing lesions in the bilateral cerebral hemispheres, right parietal and occipital lobes. No evidence of demyelinating disease. TTE: - Ejection Fraction: 55% - Grade 1 diastolic dysfunction - Normal biatrial size - Aortic, mitral, tricuspid, and pulmonary valves all normal. Chest X-ray (Today): - No significant change. - Small opacity right lung base possibly reflecting atelectasis or pneumonia. Doppler Ultrasound: - No DVTs detected. PROVIDER: Nithin Carrasco MD Plan discussed with: Patient NITHIN CARRASCO MD Dec 09, 2023 18:44
[2023-12-09] MEDS ORDERED: VANCOMYCIN PER PHARMACY 0 MG IV SCH (19:00)
[2023-12-09] MEDS ORDERED: VANCOMYCIN 1.5GM/300ML 300 ML IV ONE (19:30)
[2023-12-09] MEDS ORDERED: POTASSIUM CHL 20MEQ/100ML 100 ML IV SCH (20:15)
[2023-12-09] MEDS: VANCOMYCIN 1GM/200ML PREMIX 200 ML IV SCH (20:22)
[2023-12-09] MEDS: cefTRIAXone 2GM/50ML D5W 50 ML IV SCH (22:19)
[2023-12-09] MEDS: SODIUM CHLOR 0.9% PF (SALINE LOCK) 10ML VIAL/SYR IV SCH (22:19)
[2023-12-09] MEDS: ENOXAPARIN SOD 80 MG/0.8ML SYRINGE SC SCH (22:20)
--- NOTE | 2023-12-09 22:52 | DVHINCON2 ---
Date of service: Dec 09, [address] Salgado Reason for Consultation Space-occupying lesions History of Present Illness Mr. Sanderson is a 68 years old female with a history of hypertension, diabetes, hypothyroidism, COPD, obesity, diabetic polyneuropathy, arthritis, liver cirrh osis, she was transferred back from the [facility] on 12/08/2023 after ERCP. At that time, the patient is intubated, sedated, nonresponsive to painful stimuli. The history is obtained from chart review (including the paperwork from the [facility]) and discussing with her nurse, long time spent She was admitted to the [facility] for altered mental status, DKA, and the patient was intubated there when she was still in the ER, she was stabilized and transferred to the [facility] on 11/17/2023. In the [facility], the patient MR brain showed multiple lesions in the bilateral hemispheres, bilateral cerebellum hemispheres. She had unremarkable TTE and carotid Doppler. The patient was transferred to [facility] for ERCP In the [facility], the patient was seen by neurosurgeon and neurologist. Neurosurgery service thought the patient likely had ischemic strokes, neurologist saw patient, lumbar puncture was not recommended concerning brain herniation. Her MR brain scan, orbital scan, C-spine, lumbar spine showed no evidence demyelinating disease. MRI spectroscopy showed evidence suggestive of infectious process [facility]U Neurosurgery consultation: The lesions likely represents in fact, recommend Re attempting MRI spectral Yared for further evaluation Neuro consultation: Lumbar puncture was not recommended concerning possibility of herniation EEG, 11/28/2023: No seizure/nonconvulsive status epileptics (I did not see reports) TTE, 11/29/23: EF: 70-75% (I did not see reports) MRI, 12/05/23: No evidence of demyelinating disease (I did not see reports) MRI orbital, face, neck ww 12/05/2023, comparison: MR brain 11/28/2023: No evidence of mucormycosis infection. Multiple irregularly enhancing cerebellar and right occipital lesions were better evaluated on recent brain MRI MRI C-spine, 12/05/2023: No evidence of demyelinating disease in the cervical spine. Moderate degenerative changes. Grade 1 anterolisthesis of C7 on T1 MRI lumbar spine wwo, 12/05/2023: No evidence of demyelinating disease in the lumbar spine. Degenerative changes and grade 1 anterolisthesis of L4 and L5. Mild central spinal stenosis at L4-5. [id number] multilevel bilateral foraminal stenosis as described above MRI spectroscopy 12/05/2023: Cerebellar lesion showing moderately elevated Cho, reduced ZINA, large lipid peaks, and additional tics suspicious for amino acids and alanine. The alanine and amino acids are suspicious for an infectious process Treatment according to discharge note: ASA 81mg Qd, Lipitor 20 mg daily Urinalysis, 12/08/2023: WBC: 93, urine leukocyte esterase: 3+ ABG, 12/09/2023: Metabolic acidosis WBC/HB/PLT/MCV, 12/09/2023: 8.5/7.4/350/92.4 PT/INR/PTT, 12/08/2023: 11.4/1.08 Na, 12/08/2023: 147, 12/09/2023: 146 TBI/AST/ALT/AP, 12/09/2023: 0.2/40/21/278 TG/HDL/LDL/HDL, 11/2023: 136/96/38/32 Vitamin B12, 11/2023: 2537 TSH, 11/2023: 17.87 Echocardiogram, 11/18/2023: Normal left ventricular size and dimension. Normal left ventricular systolic function estimated ejection fraction 55%. There is a grade 1 diastolic dysfunction. Normal right ventricular size and dimension. Normal right ventricular systolic function. Mildly increased right ventricular systolic pressure 34 mm of mercury. Normal biatrial size and dimension. Normal aortic valve structure and function. Normal mitral valve structure and function. Normal tricuspid valve structure and function. The pulmonary valve is grossly normal. No pericardial effusion. Carotid Doppler, 11/21/2023: 1. No evidence of hemodynamically significant stenosis within the left carotid arterial system. 2. Antegrade flow within the left vertebral artery. 3. Cannot assess the right carotid arterial system due to central line artifact and overlying bandage. Extremity venous study, 12/09/2023: Thrombus in the LEFT cephalic and brachial vein. Thrombus in the RIGHT cephalic and basilic vein.If clinical concern/symptoms persist or worsen, short-interval follow-up study is suggested. Chest x-ray, 12/08/2023: 1. Endotracheal and gastric tubes in place as described. Satisfactory position. 2. Removal of right PICC and right IJ central venous catheter since prior. 3. Mild cardiomegaly and pulmonary vascular congestion. 4. Small opacity in the lateral right lung base which could reflect atelectasis or pneumonia MRI head, 11/21/2023: Signal abnormality in the bilateral cerebellum and right occipital lobe, as well as punctate foci in the right parietal lobe and centrum semiovale. Findings could represent regions of subacute ischemia due to embolic infarcts; however, underlying metastases or infection are not excluded. Recommend contrast-enhanced MRI Past Medical History Hypertension, diabetes, hypothyroidism, COPD, obesity, diabetic polyneuropathy, arthritis Past Surgical History Tubal ligation, tonsillectomy, hip replacement, knee replacement Family History: Patient reports no known family medical history. Family History Denies any Family Hx Social History Smoker: Non-Smoker Alcohol: Rarely Drugs: Marijuana Lives In: Home Allergies: Coded Allergies: NO KNOWN ALLERGIES (Unverified , 10/26/12) Home Meds Active Scripts Glipizide (Glipizide) 10 Mg Tab, 1 TAB PO DAILY for 30 Days, #30 TAB 5 Refills Prov:MIRACLE SALGADO [facility] 10/12/23 Amoxicillin & Pot Clavulanate (Augmentin) 500 Mg Tab, 1 TAB PO BID for 10 Days, #20 TAB Prov:MIRACLE SALGADO [facility] 10/12/23 Cyanocobalamin (B-12) 1,000 Mcg Delbert, 1000 MCG PO DAILY for 30 Days, #30 DELBERT Prov:MIRACLE SALGADO [facility] 10/12/23 Ergocalciferol (VITAMIN D 83544 UNIT) 50,000 [place], [address] UNIT PO Q7D for 30 Days, #10 CAP Prov:MIRACLE SALGADO [facility] 10/12/23 Acetaminophen (Acetaminophen) 325 Mg Tab, 650 MG PO Q6HP PRN for 10 Days, #80 TAB Prov:MIRACLE SALGADO [facility] 10/12/23 Insulin Aspart (Insulin Aspart) 100 Unit/Ml Inj, 100 UNIT SC TIDWM for 30 Days, #1 INJ 4 Refills insulin per sliding scale qac tid 150-200: 2 units 201-250: 4 units 251-300: 8 units' 301-350: 12 units 351-400: 15 units >400 call doctor Prov:FREEDOM RAZO MD 05/26/23 Insulin Glargine (Lantus) 100 Unit/Ml Inj, 20 UNIT SC QPM for 30 Days, #1 INJ 3 Refills Prov:FREEDOM RAZO MD 05/26/23 Reported Medications Atorvastatin Calcium (ATORVASTATIN CALCIUM) 20 Mg Tab, 20 MG PO DAILY, TAB 10/08/23 Lisinopril (Lisinopril) 10 Mg Tab, 10 MG PO DAILY, MG 10/08/23 Pregabalin (Pregabalin) 150 Mg Cap, 150 MG PO BID, CAP 10/08/23 Pramipexole Dihydrochloride (Pramipexole Dihydrochlori) 0.75 Mg Tab, 0.75 MG PO TID, TAB 10/08/23 Levothyroxine Sodium (Levothyroxine Sodium) 150 Mcg Tab, 150 MCG PO QAM for 30 Days 08/12/17 Current Medications Current Medications Medications (Trade) Dose Ordered Sig/Leslie Route PRN Reason Start Time Stop Time Status Last Admin Insulin Human Regular (InsuLIN R) Q6HR SC 12/09/23 00:00 12/09/23 09:17 DC Pantoprazole Sodium (Protonix) 40 mg DAILY IV 12/09/23 10:00 12/09/23 12:40 Ceftriaxone Sodium/Dextrose 50 ml @ 50 mls/hr DAILY IV 12/09/23 10:00 12/09/23 09:03 DC Fluconazole 100 ml @ 100 mls/hr 10,11,12,13 IV 12/09/23 10:00 12/09/23 09:03 DC Dextrose/Sodium Chloride 1,000 ml @ 100 mls/hr Q10H IV 12/09/23 01:15 12/09/23 09:50 DC Hydralazine HCl (Apresoline Injection) 10 mg Q4HP PRN IV SBP>150 12/09/23 05:30 12/09/23 05:50 Potassium Chloride 100 ml @ 50 mls/hr Q2H IV 12/09/23 07:45 12/09/23 11:44 DC 12/09/23 09:45 Dextrose 1,000 ml @ 75 mls/hr [id number] IV 12/09/23 07:45 12/09/23 21:26 Enoxaparin Sodium (Lovenox) 40 mg DAILY SC 12/09/23 10:00 12/09/23 20:39 DC 12/09/23 10:07 Furosemide (Lasix Injection) 40 mg DAILY IV 12/09/23 10:00 12/09/23 08:11 Norepinephrine Bitartrate 250 ml @ 3.75 mls/hr Q24H IV 12/09/23 08:15 12/09/23 08:00 Midazolam HCl 50 ml @ 5 mls/hr Q10H IV 12/09/23 08:15 12/09/23 08:56 DC Midazolam HCl 50 ml @ 5 mls/hr Q10H IV 12/09/23 09:00 12/09/23 20:21 Diagnostic Test (Pha) (Accu-Chek Comfort Curve T) 1 strip IQ4HR 12/09/23 12:00 12/09/23 16:13 DC 12/09/23 12:16 Insulin Human Regular (InsuLIN R) IQ4HR SC 12/09/23 12:00 12/09/23 16:13 DC 12/09/23 12:35 Dextrose 50 ml UD PRN IV Blood Sugar LESS THAN 60 12/09/23 09:15 12/09/23 16:13 DC Sodium Chloride (Saline Lock Ns) 10 ml QSHIFT@10,22 IV 12/09/23 22:00 12/09/23 22:19 Diagnostic Test (Pha) (Accu-Chek Comfort Curve T) 1 strip Q6HR 12/09/23 18:00 12/09/23 18:03 Insulin Human Regular (InsuLIN R) Q6HR SC 12/09/23 18:00 12/09/23 18:12 Dextrose 50 ml UD PRN IV Blood Sugar LESS THAN 60 12/09/23 16:15 Vancomycin HCl 0 ml @ 0 mls/hr UD IV 12/09/23 19:00 12/09/23 20:50 DC Ceftriaxone Sodium/Dextrose 50 ml @ 50 mls/hr Q12HR@, IV 12/09/23 21:00 12/09/23 22:19 Fluconazole 100 ml @ 100 mls/hr 10,11 IV 12/10/23 10:00 Vancomycin HCl 200 ml @ 200 mls/hr Q20H IV 12/09/23 21:00 12/09/23 20:22 Potassium Chloride 100 ml @ 50 mls/hr Q2H IV 12/09/23 19:45 12/10/23 01:44 12/09/23 22:33 Potassium Chloride 100 ml @ 50 mls/hr Q2H IV 12/09/23 20:15 12/09/23 20:57 DC Enoxaparin Sodium (Lovenox) 70 mg Q12HR SC 12/09/23 22:00 12/09/23 22:20 Review of Systems Unobtainable Vital Signs Vital Signs Date Time Temp Pulse Resp B/P (MAP) Pulse Ox O2 Delivery O2 Flow Rate FiO2 12/09/23 22:16 76 18 101/45 (63) 99 40 12/09/23 22:15 99.1 210.4 12/09/23 18:00 Mechanical Ventilator+ Physical Exam The patient is well-nourished and well-developed with no distress. The patient is intubated HEENT: Normocephalic, neck supple, no carotid bruits Lungs: Clear to auscultation Cardiovascular: Regular rate and region, S1, S2, no murmurs Abdomen: Soft, nontender, normal bowel sounds MENTAL STATUS: Not responsive to the surroundings, CRANIAL NERVES: Pupils are equal, round and reactive, small. There are corneal reflexes and doll's eyes phenomenon. No signs of facial weakness. There are gagging or coughing reflexes SENSATION: No responses to pain stimuli. MOTOR: Normal tone in the upper and lower extremity. Normal muscle bulk. No fasciculations. No spontaneous movement. REFLEXES: Deep tendon reflexes are symmetrical. No pathological reflexes. CEREBELLAR/COORDINATION: Deferred GAIT/STATION: deferred. Labs/Diagnostic Data Labs Test 12/09/23 18:25 12/09/23 18:00 12/09/23 14:45 12/09/23 14:30 Range/Units Potassium Level 3.2 L 3.5-5.1 mmol/L POC Glucose 169 H 70-106 mg/dl Influenza Type A Antigen Negative Negative Influenza Type B Antigen Negative Negative SARS-CoV-2 Antigen (Rapid) Negative NEGATIVE Test 12/09/23 09:46 12/09/23 09:28 12/09/23 06:57 12/09/23 04:04 Range/Units Blood Gas Specimen Type Arterial Blood Gas Sample Site Left radial Blood Gas Patient Temperature 37.0 Arterial Blood Date Drawn [id number] Arterial Blood pH 7.346 L 7.350-7.450 Arterial Blood Partial Pressure CO2 33.9 32.0-45.0 mmHg Arterial Blood Partial Pressure O2 95.7 83.0-108.0 mmHg Arterial Blood HCO3 18.1 L 21.0-28.0 mmol/L Arterial Blood Oxygen Saturation 96.0 94.0-98.0 % Arterial Blood Base Excess -6.8 L -2.0-3.0 mmol/L Arterial Blood Oxyhemoglobin 95.4 94.0-98.0 % Arterial Blood Carboxyhemoglobin 0.3 L 0.5-1.5 % Arterial Blood Methemoglobin 0.3 0.0-1.5 % Wallace Test Modified Blood Gas Total Hemoglobin 9.30 L 12.0-16.0 g/dL Blood Gas Set Respiration Rate 18.0 Blood Gas Modality Vent - ac Blood Gas Spontaneous Rate 20 FiO2 % 30.0 Blood Gas Tidal Volume 400.0 Blood Gas Inspiratory Pressure 15.0 Blood Gas PEEP or CPAP 5.0 Bl Gas Inspiratory/Expiratory Ratio 1:1.2 Specimen Drawn By rohit randall Serum Glucose 140 H 74-106 mg/dL Phosphorus Level 3.2 2.4-5.1 mg/dL Triglycerides Level 136 < 150 mg/dL Cholesterol Level 96 < 200 mg/dL LDL Cholesterol 38 < 100 mg/dL HDL Cholesterol 32 L 40-59 mg/dL Vitamin B12 Level 2537 H 211-911 pg/mL Vitamin D 25-Hydroxy 28.5 L 30.0-100 ng/mL Thyroid Stimulating Hormone (TSH) 17.87 H 0.55-4.78 uIU/mL Blood Gas Comments increased fio2 to 40 Blood Gas Critical Value Read Back yes Blood Gas Notified Whom nick daniels Blood Gas Notified Time [id number] Blood Gas Notified By rohit randall White Blood Count 8.5 4.4-10.8 10^3/uL Red Blood Count 2.50 L 4.0-5.20 10^6/uL Hemoglobin 7.4 L 12.2-16.2 g/dL Hematocrit 23.1 L 36.0-46.0 % Mean Corpuscular Volume 92.4 80.0-100.0 fL Mean Corpuscular Hemoglobin 29.5 28.0-32.0 pg Mean Corpuscular Hemoglobin Concent 31.9 L 32.0-36.0 g/dL Red Cell Distribution Width 16.0 H 11.8-14.3 % Platelet Count 350 140-450 10^3/uL Mean Platelet Volume 9.2 6.9-10.8 fL Neutrophils (%) (Auto) 56.8 37.0-80.0 % Lymphocytes (%) (Auto) 23.7 10.0-50.0 % Monocytes (%) (Auto) 6.5 0.0-12.0 % Eosinophils (%) (Auto) 12.3 H 0.0-7.0 % Basophils (%) (Auto) 0.7 0.0-2.0 % Neutrophils # (Auto) 4.8 1.6-8.6 10 ^3/uL Lymphocytes # (Auto) 2.0 0.4-5.4 10 ^3/uL Monocytes # (Auto) 0.6 0-1.3 10 ^3/uL Eosinophils # (Auto) 1.0 H 0-0.8 10 ^3/uL Basophils # (Auto) 0.1 0-0.2 10 ^3/uL Nucleated Red Blood Cells 0.1 % Sodium Level 146 H 136-145 mmol/L Chloride Level 116 H 98-107 mmol/L Carbon Dioxide Level 22 20-30 mmol/L Anion Gap 8 5-15 Blood Urea Nitrogen 11 9-23 mg/dL Creatinine 0.94 0.550-1.02 mg/dL Glomerular Filtration Rate Calc 66 >90 mL/min BUN/Creatinine Ratio 11.7 10.0-20.0 Calcium Level 8.9 8.7-10.4 mg/dL Magnesium Level 1.9 1.6-2.6 mg/dL Total Bilirubin < 0.2 L 0.2-1.0 mg/dL Aspartate Amino Transferase (AST) 40 13-40 U/L Alanine Aminotransferase (ALT) 21 7-40 U/L Alkaline Phosphatase 278 H 46-116 U/L Total Protein 5.5 L 5.7-8.2 g/dL Albumin 3.0 L 3.2-4.8 g/dL Test 12/08/23 20:00 12/08/23 19:00 Range/Units Prothrombin Time 11.4 9.3-11.8 sec Prothrombin Time INR 1.08 0.9-1.15 Urine Color Yellow Yellow Urine Clarity Clear Clear Urine pH 6.5 5.0-9.0 Urine Specific Lorida 1.021 1.001-1.035 Urine Protein 1+ H Negative Urine Ketones Negative Negative Urine Blood 2+ H Negative /uL Urine Nitrite Negative Negative Urine Bilirubin Negative Negative Urine Urobilinogen Normal Negative mg/dL Urine Leukocyte Esterase 3+ Negative /uL Urine RBC 4 0 - 4 /hpf Urine WBC 93 0 - 5 /hpf Urine WBC Clumps Present None Seen /hpf Urine Squamous Epithelial Cells Few <5 /hpf Urine Bacteria Few H None Seen /hpf Urine Glucose Trace Normal mg/dL Microbiology Date/Time Source Procedure Growth Status 12/08/23 19:00 Nose MRSA Screen - Final Complete 12/08/23 19:00 Urine - Catheterized Urine Culture - Preliminary Resulted 12/08/23 19:00 Sputum Gram Stain - Final Resulted 12/08/23 19:00 Sputum Respiratory Culture - Preliminary Resulted Assessment Abnormal MRI brain scan, likely the patient has multiple stroke Coma Metabolic encephalopathy Hypoxic encephalopathy Multiple strokes Ketoacidosis Bilateral upper extremity deep venous thrombosis Rule out subacute endocarditis Plan/Recommendation Monitoring Supportive treatment ICU care YOLANDA Respiratory support/vent management Stabilize vitals IV antibiotics Lovenox 1 mg subcutaneous b.i.d. Lipitor 20 mg daily Cardiology on case Infectious disease on case More recommendation per clinical course Prognosis: Guarded Critical care time spent 70 minutes This medical document was created using an electronic medical record system with [employer] dictation system. Although this document has been carefully reviewed, there may still be some phonetic and typographical errors. These areas are purely typographical due to imperfections of the software programs, and do not reflect any compromise in the patient's medical care. Plan discussed with: Other DREW FAGAN MD Dec 09, 2023 22:52
[2023-12-10] VITALS (106 sets, daily range): BP systolic 88–152; BP diastolic 35–78; PULSE 9–124; RESP 6–29; TEMP 97.9–101.1; O2SAT 93–100
[2023-12-10] MEDS: ACETAMINOPHEN 650 MG RECT SUPP PR PRN (02:02)
[2023-12-10 05:08] LABS: Hemoglobin 8.3 g/dL (12.2-16.2); Red Blood Cells 2.76 10^6/uL (4.0-5.20)
[2023-12-10 05:10] LABS: Mean Corpuscular Hgb Conc. 31.8 g/dL (32.0-36.0); Mean Corpuscular Volume 94.4 fL (80.0-100.0); Platelet Count (auto) 518 10^3/uL (140-450); Red Cell Distribution Width 16.5 % (11.8-14.3); White Blood Cell 15.7 10^3/uL (4.4-10.8)
[2023-12-10 05:15] LABS: Band Neutrophils % (manual) 0; Basophils % (manual) 0 (0.0-2.0); Blast Cells 0; Metamyelocytes % 0; Myelocytes % 0; Promyelocytes % 0; Reactive Lymphocytes 0
[2023-12-10 05:25] LABS: Alanine Aminotransferase 23 U/L (7-40); Albumin 3.6 g/dL (3.2-4.8); Alkaline Phosphatase 278 U/L (46-116); Anion Gap 5 (5-15); Aspartate Aminotransferase 32 U/L (13-40); BUN/Creatinine Ratio 10.9 (10.0-20.0); Bilirubin, Total < 0.2 mg/dL (0.2-1.0); Blood Urea Nitrogen 15 mg/dL (9-23); Carbon Dioxide 22 mmol/L (20-30); Chloride 112 mmol/L (98-107); Glucose 216 mg/dL (74-106); Magnesium 1.7 mg/dL (1.6-2.6); Phosphorus 4.4 mg/dL (2.4-5.1); Potassium 4.8 mmol/L (3.5-5.1); Sodium 139 mmol/L (136-145); Total Protein 6.5 g/dL (5.7-8.2)
[2023-12-10 05:39] LABS: Eosinophils % (manual) 1 (0-7); Lymphocytes % (manual) 12 (10.0-50.0); Monocytes % (manual) 4 (0-12); Platelet Estimate Increased; Smudge Cells 1 /100 WBC
[2023-12-10 05:42] LABS: Giant Platelets Few; Large Platelets FEW; Ovalocytes FEW; Stomatocytes Few
--- NOTE | 2023-12-10 06:27 | DVH ---
CHEST RADIOGRAPH Indication:post transfer intubated Technique: Single frontal view of the chest was obtained Comparison: XY CHEST PORTABLE on DOS: 12/09/23, XY CHEST PORTABLE on DOS: 12/08/23, XY CHEST XRAY 1 VIE W on DOS: 11/26/23, XY CHEST XRAY 1 VIEW on DOS: 11/25/23, XY CHEST XRAY 1 VIEW on DOS: 11/25/23, XY CHEST PORTABLE on DOS: 12/09/23 FINDINGS: Lines and Tubes: Endotracheal tube projects 2 cm above level the martinez. Enteric tube projects in daniela ropriate position over the expected region of the stomach. Left PICC tip in the SVC. Lungs: Mild pulmonary edema. Pleura: No effusion. Patient appears rotated with possible skin fold noted mimicking a left pneumothorax. Repeat radiograp h recommended. Cardiomediastinal contours: Mild cardiomegaly. Bones: No acute osseous abnormality. IMPRESSION: Patient appears rotated with possible skin fold noted mimicking a left pneumothorax. Repeat radiograp h recommended. Worsening pulmonary edema.
[2023-12-10 08:55] LABS: Base Excess -9.4 mmol/L (-2.0-3.0)
--- NOTE | 2023-12-10 09:23 | DVHPN2 ---
Progress Note Date Seen: Dec 10, 2023 Medical Necessity Reason Pt with a Central, PICC or Fol: Yes The following are medically ne: PICC Line, Jones Catheter Objective vital signs Vital Sign Date Time Temp Pulse Resp B/P (MAP) Pulse Ox O2 Delivery O2 Flow Rate FiO2 12/10/23 08:20 110 20 119/53 (75) 95 35 12/10/23 06:45 98.2 208.8 12/09/23 20:00 Mechanical Ventilator+ Total Intake and Output 12/09/23 12/09/23 12/10/23 15:00 23:00 07:00 Intake Total 930.00 ml 1392.25 ml 667.5 ml Output Total 1000 ml 1200 ml 200 ml Balance -70.00 ml 192.25 ml 467.5 ml medications Current Medications Medications Dose Ordered Sig/Leslie Route Start Time Stop Time Status Last Admin Dose Admin Albuterol 2.5 mg Q4HR PRN NEB 12/08/23 19:30 12/10/23 02:10 2.5 MG Ipratropium [place] 0.5 mg Q4HR NEB 12/08/23 22:00 12/10/23 02:10 0.5 MG Ondansetron HCl 4 mg Q4HP PRN IV 12/08/23 19:30 Pantoprazole Sodium 40 mg DAILY IV 12/09/23 10:00 12/09/23 12:40 40 MG Fentanyl Citrate 250 ml @ 2.5 mls/hr Q24H IV 12/08/23 20:30 12/10/23 06:06 32.5 MLS/HR Hydralazine HCl 10 mg Q4HP PRN IV 12/09/23 05:30 12/09/23 05:50 10 MG Dextrose 1,000 ml @ 75 mls/hr [id number] IV 12/09/23 07:45 12/09/23 21:26 75 MLS/HR Furosemide 40 mg DAILY IV 12/09/23 10:00 12/09/23 08:11 40 MG Norepinephrine Bitartrate 250 ml @ 3.75 mls/hr Q24H IV 12/09/23 08:15 12/09/23 08:00 3.75 MLS/HR Midazolam HCl 50 ml @ 5 mls/hr Q10H IV 12/09/23 09:00 12/10/23 06:10 12 MLS/HR Sodium Chloride 10 ml QSHIFT@,22 IV 12/09/23 22:00 12/09/23 22:19 10 ML Diagnostic Test (Pha) 1 strip Q6HR 12/09/23 18:00 12/10/23 06:07 1 STRIP Insulin Human Regular Q6HR SC 12/09/23 18:00 12/10/23 06:07 4 UNITS Dextrose 50 ml UD PRN IV 12/09/23 16:15 Ceftriaxone Sodium/Dextrose 50 ml @ 50 mls/hr Q12HR@, IV 12/09/23 21:00 12/09/23 22:19 50 MLS/HR Fluconazole 100 ml @ 100 mls/hr 10,11 IV 12/10/23 10:00 Vancomycin HCl 200 ml @ 200 mls/hr Q20H IV 12/09/23 21:00 12/09/23 20:22 200 MLS/HR Enoxaparin Sodium 70 mg Q12HR SC 12/09/23 22:00 12/09/23 22:20 70 MG Acetaminophen 650 mg Q6HP PRN ND 12/10/23 01:30 12/10/23 02:02 650 MG laboratory and microbiology Laboratory Tests 12/10/23 04:53 Test 12/10/23 04:53 Range/Units Serum Glucose 216 H 74-106 mg/dL Problem List/Assessment/Plan Problem List/Assessment/Plan 12/10/23 patient intubated on ventilator, sedated, examined, tracheostomy scheduled for Wednesday provided medically cleared by then Plan discussed with: BRENDON Alas MD Dec 10, 2023 09:23
--- NOTE | 2023-12-10 10:24 | DVHOP2 ---
Operative Report - 2 Report Details Date: 12/10/23 Preop Diagnosis: Severe sepsis, transesophageal echocardiogram was done to rule out endocarditis Postop Diagnosis: No evidence of intracardiac vegetation or masses noted in the study done today Surgeon: Jered Ayala MD Anesthesiologist: Patient is already under deep sedation with continuous propofol as well as midaz olam infusion she has also mechanically ventilated, patient was observed during the study photic of35 minutes without obvious complication was she was under the deep sedation Anesthesia: Local Consent: The patient was informed of the risks and benefits of the procedure. These include but are not limited to complications of anesthesia, postoperative infection, incomplete relief of symptoms, recurrence of symptoms, damage to blood vessels, nerves and tendons, deep venous thrombosis, pulmonary embolism and possible need for repeat surgery in the future. Indications for Surgery: This is a 68-year-old female who presented as a direct transfer from [facility] for continuation of care. Information obtained from records as the patient is currently chemically sedated, endotracheally intubated with FiO2 at 40% PEEP 5, and on low-dose vasopressor. It appears the patient initially presented to the emergency room with a chief complaint of an altered level of consciousness presumed to be secondary to diabetic ketoacidosis which required endotracheal intubation for airway protection. Metabolic encephalopathy was then suspected to be secondary to sepsis with aspiration pneumonia/UTI versus brain metastases/infection/acute CVA. She was then transferred to higher level of care to [facility], as this facility could not complete IV neuroimaging due to YULIANA neither a lumbar puncture as there was no neuro surgical backup. The patient was also suspected of a biliary malignancy with GI recommendations for higher level of care for an eventual ERCP and end oscopic ultrasound. At that time, blood cultures were positive for Klebsiella and fungus in the sputum. Cardiology now consulted for a transesophageal echocardiogram to rule out subacute endocarditis. Significant medical history includes insulin-dependent diabetes mellitus, hypertension, hypothyroidism, COPD, diabetic polyneuropathy, and history of tobacco use. Name of Procedure Performed 1. Transesophageal echocardiography. 2. Conscious sedation with25 mcg of fentanyl as well as a mg of midazolam Procedure Details Procedure Details: After informed consent was obtained, risks, benefits, complications, and alternatives were discussed in details with the patient who agrees to have the procedure done. The beginning of the procedure, a total of 10 cc of xylocaine was given for gargling to anesthetize the posterior nasopharynx. Patient is under deep sedation and mechanically ventilated. A standard YOLANDA probe was advanced into the mid esophageal area and standardized views including five chamber, four chamber, three chamber view were obtained in the regular fashion f indings were as follows: 1. Normal left ventricular size and dimension. Normal left ventricular systolic function estimated ejection fraction 55%. 2. Normal right ventricular size and dimension. Normal right ventricular systolic function. 3. Normal biatrial size and dimension. 4. The aortic valve appears mildly thickened and sclerotic no significant stenosis or regurgitation. 5. The mitral valve appears normal in structure and function there is mild mitral valve regurgitation. There is mild anterior leaflet prolapse. 6. The tricuspid valve appears normal structure and function. 7. The pulmonary valve is grossly normal. 8. No evidence of intracardiac masses or vegetation was discernible. 9. No pericardial effusion. 10. The visualized part of the aorta is normal without evidence of dissection or atherosclerotic plaquing. 11. Normal left atrial appendage and structure and function. 12. Normal pulmonary vein connections. Impression and plan: In the study done today no evidence of vegetation or masses were discernible. There is mild mitral valve regurgitation with mild anterior leaflet prolapse. No significant intracardiac lesion was discernible Disposition JERED AYALA MD Dec 10, 2023 10:24
--- NOTE | 2023-12-10 10:46 | DVH ---
CHEST RADIOGRAPH Indication:status post YOLANDA Technique: Single frontal view of the chest was obtained COMPARISON: XY CHEST PORTABLE on DOS: 12/10/23, XY CHEST PORTABLE on DOS: 12/09/23, XY CHEST PORTABLE o n DOS: 12/08/23 FINDINGS: Lines and Tubes: Endotracheal tube and left PICC in satisfactory position. Feeding tube tip in the s tomach. Lungs: Mild congestion Pleura: No effusion. No pneumothorax. Cardiomediastinal contours: Unremarkable Bones: Unremarkable IMPRESSION: Lines and tubes in satisfactory position. No significant interval change.
[2023-12-10] MEDS: FLUCONAZOLE 200MG/100ML 100 ML IV SCH (12:27)
--- NOTE | 2023-12-10 12:54 | DVH ---
CT HEAD W WO CONTRAST INDICATION: : 68 old Female Sepsis unidentified source EXAM DATE: 12/10/2023 02:00 PM COMPARISON: CT HEAD WITHOUT CONTRAST on DOS: 05/22/23 RADIATION DOSE: CTDIvol: 50 mGy, DLP: 2577 mGy*cm PROCEDURE: CT scans of the head were obtained from the vertex to the skull base. Sagittal and coronal reconstructions were provided. IV contrast was given. All CT scans at this medical facility are performed using dose modulation techniques as appropriate t o a performed exam including the following: Automated exposure control was utilized; adjustment of th e MA and/or KV according to patient size; and use of iterative reconstruction technique. FINDINGS: Hypodensities in the bilateral cerebellum. There is sulcal and ventricular prominence. The brain otherwise shows normal morphology and llamas-white matter differentiation, without intracranial hemorrhage, extra-axial fluid collection, mass effect or acute large vessel infarct. No abnormal cont rast enhancement is seen. The basal cisterns are patent. The skull and visible facial bones are intac t. Small bilateral mastoid effusion. The paranasal sinuses, and middle ear cavities are well-aerated . The soft tissues of the scalp are unremarkable. IMPRESSION: Hypodensities in the bilateral cerebellum could be from old infarct. No acute intracranial abnormality.
--- NOTE | 2023-12-10 13:31 | DVH ---
Exam: CT CT CHEST/AB/PL W CON- IV ONLY History: Sepsis unidentified source Comparison Study: None available at time of dictation. Technique: Multidetector spiral CT of the chest, abdomen and pelvis was performed from lower neck to pubic symphysis. Intravenous contrast was administered during this examination. Portal venous imagi ng was obtained. Axial, coronal and sagittal multiplanar reformats were performed by the technologist on a separate workstation. Radiation Dose : 1. Chest/Abdomen/Pelvis: CTDIvol 50.2 mGy, DLP 2578 mGy*cm. Findings: Lower neck: Endotracheal tube in satisfactory position. Left central venous catheter in satisfactory position. Lungs: Multifocal patchy bilateral airspace opacities with more focal consolidation in the lower lobe s, [id number]-left. Heart/Vascular Structures: Cardiomegaly. Coronary artery calcifications. Vascular calcifications of t he aorta. Lymph Nodes: No adenopathy Pleura: No pleural effusion or significant pneumothorax. Liver: The liver is normal in size. No focal lesions. Normal hepatic vascular enhancement. Gallbladder and Biliary Tree: Cholelithiasis noted without secondary findings of cholecystitis or gilbert iary obstruction. Spleen: Unremarkable Pancreas: The pancreas is normal in appearance without focal lesions or abnormal enhancement. Adrenal Glands: Unremarkable Kidneys: Kidneys demonstrate normal symmetric enhancement without focal lesions, calculi or hydroneph rosis. Bladder: Unremarkable Bowel: Enteric catheter in the stomach. Small bowel and colon are normal in caliber and distribution. The appendix is not visualized; however, no secondary findings of acute appendicitis identified. Re ctal temperature probe in-situ. Ascites: Absent Lymphadenopathy: No mesenteric, retroperitoneal or periportal lymphadenopathy. Abdominal Wall and Mesentery: Unremarkable. Vasculature: The visualized abdominal aorta is normal in size and caliber. There is calcified atheros clerotic plaque involving the aorta and its branches. Abdominal and pelvic vessels demonstrate normal enhancement. Pelvic Organs: Unremarkable Musculoskeletal: No aggressive focal bony lesions, acute fractures or dislocation. Degenerative reeder es of the spine. Bilateral hip arthroplasty. IMPRESSION: No acute findings in the abdomen or pelvis. Multifocal airspace disease. Cardiomegaly.
--- NOTE | 2023-12-10 16:02 | DVHPN2 ---
Progress Note - Dictate Date Seen: Dec 10, 2023 Medical Necessity Reason Pt with a Central, PICC or Fol: Yes The following are medically ne: PICC Line, Jones Catheter Subjective Mr. Sanderson is a 68 years old female with a history of hypertension, diabetes, hypothyroidism, COPD, obesity, diabetic polyneuropathy, arthritis, liver cirrhosis, she was transferred back from the [facility] on 12/08/2023 after ERCP. I have seen examined the patient, I have talked to her nurse, she responds to stroke painful stimuli, clinically no operative changes Versed 14 mg/hour, fentanyl 350 mcg/hour, levo 2 mcg/minute [facility] Neurosurgery consultation: The lesions likely represents infarct, recommend Re attempting MRI spectrography for further evaluation Neuro consultation: Lumbar puncture was not recommended concerning possibility of herniation EEG, 11/28/2023: No seizure/nonconvulsive status epileptics (I did not see reports) TTE, 11/29/23: EF: 70-75% (I did not see reports) MRI brain (no report): signal abnormality in bilateral cerebellum and right occipital lobe, punctate foci in right parietal lobe and central semiovale- unable to differentiate subacute ischemia 2/2 MR effects versus infection versus metastasis. Recommend contrast enhanced MRI MRI, 12/05/23: No evidence of demyelinating disease (I did not see reports) MRI orbital, face, neck ww 12/05/2023, comparison: MR brain 11/28/2023: No evidence of mucormycosis infection. Multiple irregularly enhancing cerebellar and right occipital lesions were better evaluated on recent brain MRI MRI C-spine, 12/05/2023: No evidence of demyelinating disease in the cervical spine. Moderate degenerative changes. Grade 1 anterolisthesis of C7 on T1 MRI lumbar spine wwo, 12/05/2023: No evidence of demyelinating disease in the lumbar spine. Degenerative changes and grade 1 anterolisthesis of L4 and L5. Mild central spinal stenosis at L4-5. Qzlr-ju-[id number] multilevel bilateral foraminal stenosis as described above MRI spectroscopy 12/05/2023: Cerebellar lesion showing moderately elevated Cho, reduced ZINA, large lipid peaks, and additional tics suspicious for amino acids and alanine. The alanine and amino acids are suspicious for an infectious process Treatment according to discharge note: ASA 81mg Qd, Lipitor 20 mg daily Urinalysis, 12/08/2023: WBC: 93, urine leukocyte esterase: 3+ ABG, 12/09/2023: Metabolic acidosis WBC/HB/PLT/MCV, 12/09/2023: 8.5/7.4/350/92.4 PT/INR/PTT, 12/08/2023: 11.4/1.08 Na, 12/08/2023: 147, 12/09/2023: 146 TBI/AST/ALT/AP, 12/09/2023: 0.2/40/21/278 TG/HDL/LDL/HDL, 11/2023: 136/96/38/32 Vitamin B12, 11/2023: 2537 TSH, 11/2023: 17.87 Echocardiogram, 11/18/2023: Normal left ventricular size and dimension. Normal left ventricular systolic function estimated ejection fraction 55%. There is a grade 1 diastolic dysfunction. Normal right ventricular size and dimension. Normal right ventricular systolic function. Mildly increased right ventricular systolic pressure 34 mm of mercury. Normal biatrial size and dimension. Normal aortic valve structure and function. Normal mitral valve structure and function. Normal tricuspid valve structure and function. The pulmonary valve is grossly normal. No pericardial effusion. Carotid Doppler, 11/21/2023: 1. No evidence of hemodynamically significant stenosis within the left carotid arterial system. 2. Antegrade flow within the left vertebral artery. 3. Cannot assess the right carotid arterial system due to central line artifact and overlying bandage. Extremity venous study, 12/09/2023: Thrombus in the LEFT cephalic and brachial vein. Thrombus in the RIGHT cephalic and basilic vein.If clinical concern/symptoms persist or worsen, short-interval follow-up study is suggested. Chest x-ray, 12/08/2023: 1. Endotracheal and gastric tubes in place as described. Satisfactory position. 2. Removal of right PICC and right IJ central venous catheter since prior. 3. Mild cardiomegaly and pulmonary vascular congestion. 4. Small opacity in the lateral right lung base which could reflect atelectasis or pneumonia MRI head, 11/21/2023: Signal abnormality in the bilateral cerebellum and right occipital lobe, as well as punctate foci in the right parietal lobe and centrum semiovale. Findings could represent regions of subacute ischemia due to embolic infarcts; however, underlying metastases or infection are not excluded. Recommend contrast-enhanced MRI vital signs Vital Sign Date Time Temp Pulse Resp B/P (MAP) Pulse Ox O2 Delivery O2 Flow Rate FiO2 12/10/23 15:47 68 24 115/45 (68) 100 30 12/10/23 13:30 98.1 208.6 12/09/23 20:00 Mechanical Ventilator+ Total Intake and Output 12/09/23 12/09/23 12/10/23 15:00 23:00 07:00 Intake Total 930.00 ml 1392.25 ml 790.5 ml Output Total 1000 ml 1200 ml 200 ml Balance -70.00 ml 192.25 ml 590.5 ml medications Current Medications Medications Dose Ordered Sig/Leslie Route Start Time Stop Time Status Last Admin Dose Admin Albuterol 2.5 mg Q4HR PRN NEB 12/08/23 19:30 12/10/23 02:10 2.5 MG Ipratropium [place] 0.5 mg Q4HR NEB 12/08/23 22:00 12/10/23 02:10 0.5 MG Ondansetron HCl 4 mg Q4HP PRN IV 12/08/23 19:30 Pantoprazole Sodium 40 mg DAILY IV 12/09/23 10:00 12/10/23 10:20 40 MG Fentanyl Citrate 250 ml @ 2.5 mls/hr Q24H IV 12/08/23 20:30 12/10/23 12:32 35 MLS/HR Hydralazine HCl 10 mg Q4HP PRN IV 12/09/23 05:30 12/09/23 05:50 10 MG Dextrose 1,000 ml @ 75 mls/hr [id number] IV 12/09/23 07:45 12/10/23 09:40 75 MLS/HR Furosemide 40 mg DAILY IV 12/09/23 10:00 12/10/23 10:20 40 MG Norepinephrine Bitartrate 250 ml @ 3.75 mls/hr Q24H IV 12/09/23 08:15 12/09/23 08:00 3.75 MLS/HR Midazolam HCl 50 ml @ 5 mls/hr Q10H IV 12/09/23 09:00 12/10/23 12:31 5 MLS/HR Sodium Chloride 10 ml QSHIFT@10,22 IV 12/09/23 22:00 12/10/23 10:21 10 ML Diagnostic Test (Pha) 1 strip Q6HR 12/09/23 18:00 12/10/23 12:34 1 STRIP Insulin Human Regular Q6HR SC 12/09/23 18:00 12/10/23 06:07 4 UNITS Dextrose 50 ml UD PRN IV 12/09/23 16:15 Fluconazole 100 ml @ 100 mls/hr 10,11 IV 12/10/23 10:00 12/10/23 15:16 100 MLS/HR Vancomycin HCl 200 ml @ 200 mls/hr Q20H IV 12/09/23 21:00 12/09/23 20:22 200 MLS/HR Enoxaparin Sodium 70 mg Q12HR SC 12/09/23 22:00 12/10/23 10:21 70 MG Acetaminophen 650 mg Q6HP PRN MT 12/10/23 01:30 12/10/23 02:02 650 MG Cefepime HCl 50 ml @ 12.5 mls/hr Q12HR IV 12/10/23 14:45 objective The patient is well-nourished and well-developed with no distress. The patient is intubated MENTAL STATUS: Not responsive to the surroundings, CRANIAL NERVES: Pupils are equal, round and reactive, small. There are corneal reflexes and doll's eyes phenomenon. No signs of facial weakness. There are gagging or coughing reflexes SENSATION: No responses to pain stimuli. MOTOR: Normal tone in the upper and lower extremity. Normal muscle bulk. No fasciculations. No spontaneous movement. REFLEXES: Deep tendon reflexes are symmetrical. No pathological reflexes. CEREBELLAR/COORDINATION: Deferred GAIT/STATION: deferred. laboratory and microbiology Laboratory Tests 12/10/23 04:53 Test 12/10/23 04:53 Range/Units Serum Glucose 216 H 74-106 mg/dL Problem List Abnormal MRI brain scan, likely the patient has multiple stroke Coma Metabolic encephalopathy Hypoxic encephalopathy Multiple strokes Ketoacidosis Bilateral upper extremity deep venous thrombosis Rule out subacute endocarditis Assessment/Plan Monitoring Supportive treatment ICU care YOLANDA Respiratory support/vent management Stabilize vitals IV antibiotics Lovenox 1 mg/kg subcutaneous b.i.d. Lipitor 20 mg daily Cardiology on case Infectious disease on case More recommendation per clinical course This medical document was created using an electronic medical record system with [email or web address] dictation system. Although this document has been carefully reviewed, there may still be some phonetic and typographical errors. These areas are purely typographical due to imperfections of the software programs, and do not reflect any compromise in the patient's medical care. Prognosis guarded Dietary Evaluation Review Comments: 1) If GI is accessible consider Glucerna 1.2 @ 55 ml/hr goal rate as tolerated 2) If pt remains NPO >7 days consider TPN to meet at least 75% of estimated needs 3) Advance pt diet when medically feasible to a CCHO 45g/Cardiac diet modified per EVALUATOR recommendations 4) Continue current plan of care Expected Outcomes/Goals: 1) Pt to receive nutrition support within 7 days of NPO status 2) Pt diet to advance 3) F/U in 2-3 days Plan discussed with: Other Critical Care Time(min): 40 DREW FAAGN MD Dec 10, 2023 16:02
[2023-12-10] MEDS: CEFEPIME 2GM/50ML NS 50 ML IV SCH (16:35)
--- NOTE | 2023-12-10 16:57 | DVHPNRES ---
Progress Note Date Seen: Dec 10, 2023 Resident Creating Document: MIRACLE SALGADO RESIDENT Medical Necessity Reason Pt with a Central, PICC or Fol: Yes The following are medically ne: PICC Line, Jones Catheter Subjective Review of Systems Inna Sanderson is a 68 year old female patient who was transferred back from [facility] ([facility]) where she was evaluated for space occupying lesions in the brain (to rule out metastasis, infection vs stroke), where did completed MRI spectroscopy with no conclusive finding, presented failed extubation [facility] also suggested to complete EGD as outpatient. Per [id number] did not complete YOLANDA due to availability. Initially was transfered from [facility] to [facility] with diagnosis of DKA symptomatic by AMS (per daughter bizarre behavior) and general weakness which started the day of her admission, had to be emergently intubated to protect airway, requiring insulin drip in the other center (DKA resolved before transfer was completed). Could not obtain ROS due to clinical status. Past medical history: Diabetes, hypertension, hypothyroidism, obesity, COPD, diabetic polyneuropathy, recent mechanical fall with no loss of consciousness on right wrist has not had surgery, liver cirrhosis. Multiple admissions for DKA and UTI. Surgical history: 3 hip replacement, right knee replacement Family history: Non contributory Social history: Lives with two room mates. Quit smoking 2 years ago (40 pack year history). Denies current tobacco, alcohol and other drug abuse Allergies: Denies Home medication: Insulin, Ibuprofen, Levothyroxine 100 hg PO daily, Mirapex 0.75 mg daily, Pregabalin 150 mg PO bid PCP: Dr. Hernandez Patient seen and examined at bedside. Currently in ICU status for sedoanalgesia due to mechanically assisted ventilation. Deferred ROS Objective vital signs Vital Sign Date Time Temp Pulse Resp B/P (MAP) Pulse Ox O2 Delivery O2 Flow Rate FiO2 12/10/23 16:30 98.1 66 25 124/46 (72) 100 208.6 12/10/23 16:00 30 12/10/23 08:00 Mechanical Ventilator+ Total Intake and Output 12/09/23 12/09/23 12/10/23 15:00 23:00 07:00 Intake Total 930.00 ml 1392.25 ml 790.5 ml Output Total 1000 ml 1200 ml 200 ml Balance -70.00 ml 192.25 ml 590.5 ml medications Current Medications Medications Dose Ordered Sig/Leslie Route Start Time Stop Time Status Last Admin Dose Admin Albuterol 2.5 mg Q4HR PRN NEB 12/08/23 19:30 12/10/23 02:10 2.5 MG Ipratropium [place] 0.5 mg Q4HR NEB 12/08/23 22:00 12/10/23 02:10 0.5 MG Ondansetron HCl 4 mg Q4HP PRN IV 12/08/23 19:30 Pantoprazole Sodium 40 mg DAILY IV 12/09/23 10:00 12/10/23 10:20 40 MG Fentanyl Citrate 250 ml @ 2.5 mls/hr Q24H IV 12/08/23 20:30 12/10/23 12:32 35 MLS/HR Hydralazine HCl 10 mg Q4HP PRN IV 12/09/23 05:30 12/09/23 05:50 10 MG Dextrose 1,000 ml @ 75 mls/hr [id number] IV 12/09/23 07:45 12/10/23 09:40 75 MLS/HR Furosemide 40 mg DAILY IV 12/09/23 10:00 12/10/23 10:20 40 MG Norepinephrine Bitartrate 250 ml @ 3.75 mls/hr Q24H IV 12/09/23 08:15 12/09/23 08:00 3.75 MLS/HR Midazolam HCl 50 ml @ 5 mls/hr Q10H IV 12/09/23 09:00 12/10/23 16:03 14 MLS/HR Sodium Chloride 10 ml QSHIFT@10,22 IV 12/09/23 22:00 12/10/23 10:21 10 ML Diagnostic Test (Pha) 1 strip Q6HR 12/09/23 18:00 12/10/23 12:34 1 STRIP Insulin Human Regular Q6HR SC 12/09/23 18:00 12/10/23 06:07 4 UNITS Dextrose 50 ml UD PRN IV 12/09/23 16:15 Fluconazole 100 ml @ 100 mls/hr 10,11 IV 12/10/23 10:00 12/10/23 15:16 100 MLS/HR Vancomycin HCl 200 ml @ 200 mls/hr Q20H IV 12/09/23 21:00 12/09/23 20:22 200 MLS/HR Enoxaparin Sodium 70 mg Q12HR SC 12/09/23 22:00 12/10/23 10:21 70 MG Acetaminophen 650 mg Q6HP PRN FL 12/10/23 01:30 12/10/23 02:02 650 MG Cefepime HCl 50 ml @ 12.5 mls/hr Q12HR IV 12/10/23 14:45 12/10/23 16:35 12.5 MLS/HR Examination Patient lying in bed, under analgesia due to mechanical ventilation General: RASS -3, fever (Tmax 101.1F), mucosae are moist Cardiovascular: Normal S1 and S2. No murmurs, gallops or rubs Respiratory: Mechanically assisted ventilation, equal bilateral airway entree. Clear lung sounds on auscultation Abdomen: Soft, nontender, no organomegaly, normal bowel sounds MSK/skin: Mobilization of limbs cannot be evaluated. Skin is dry and warm. PICC line in right arm Neurological: Orientation cannot be assessed. Opens eyes with verbal stimulus.Follows simple verbal commands. No apparent motor no sensitive deficits. Pupils are isocoric and reactive laboratory and microbiology Laboratory Tests 12/10/23 04:53 Test 12/10/23 04:53 Range/Units Serum Glucose 216 H 74-106 mg/dL Microbiology Date/Time Source Procedure Growth Status 12/09/23 09:28 Blood Blood Culture - Preliminary NO GROWTH AFTER 24 HOURS OF INCUBATION. Resulted 12/08/23 19:00 Nose MRSA Screen - Final Complete 12/08/23 19:00 Urine - Catheterized Urine Culture - Preliminary Resulted 12/08/23 19:00 Sputum Gram Stain - Final Resulted 12/08/23 19:00 Sputum Respiratory Culture - Preliminary Resulted Problem List/Assessment/Plan Problem List/Assessment/Plan Neurology # Metabolic encephalopathy probably secondary to sepsis vs brain metastasis/infection/stroke -Returned from [facility] with no conclusive diagnosis -Presented failed extubation in HLOC (reintubated in less than 24 hours) -Ordered panCT with contrast: No acute findings in brain (probable old infarct) and abdomen/pelvis. Chest presented probable multifocal pneumonia -Neurology on board # Space occupying lesion - Rule out brain infection vs metastasis vs stroke -Head MRI spectroscopy was nonconclusive. -Lab workup in higher level of care was negative (includes blastomycosis, QuantiFERON tuberculosis, cryptococcosis, BD glucan), pending nocardia, histoplasmosis and Coccidioides Respiratory # Acute respiratory failure -Continues with mechanical assisted ventilation (VCV VT 400 RR 18 PEEP 5 FIO2 40%) # Aspiration pneumonia -Currently under empiric IV antibiotics (cefepime, vancomycin and fluconazole, previously on ampicillin, ceftriaxone and metronidazole). In higher level of care suspected the patient may have mucormycosis. -Ordered panCT with contrast: No acute findings in brain (probable old infarct) and abdomen/pelvis. Chest presented probable multifocal pneumonia # COPD no exacerbation -Monitor # Mixed respiratory acidosis -Monitor Caridiology # Acute on chronic diastolic CHF (HFpEF, LVEF 55%) -currently on furosemide 40 mg IV daily -Completed TTE and YOLANDA with LVEF 55% # Ruled out infective endocarditis -Completed PE on 12/10/2023: No vegetation seen # Hypertension controlled -Monitor Infectious # Septic shock due to UTI vs pneumonia -Currently under empiric IV antibiotics (cefepime, vancomycin and fluconazole, previously on ampicillin, ceftriaxone and metronidazole) -Ordered pancultures -Ordered infectious disease evaluation -Required IV vasopressors for 48 hours, currently without vasoactive drugs # Questionable brain abscess -Infectious disease on board: Currently under empiric IV antibiotics (cefepime, vancomycin and fluconazole, previously on ampicillin, ceftriaxone and metronidazole). Ordered head MRI (will be competed on 12/12/2023) Endocrinology # DKA probably secondary to pneumonia - resolved -Has resolved since transferred from [facility] # Diabetic ketoacidosis - Resolved -Continue with insulin sliding scale # Diabetes - Uncontrolled ([id number]: 11.7%) -On insulin sliding scale and Lantus # Diabetic polyneuropathy -Monitor # Hypothyroidism -Continue home medication Genitourinary # UTI -Ordered new culture # YULIANA hemodynamically mediated (baseline creatinine 0.97) - Improved -Will monitor -Ordered panCT with IV contrast # Hypernatremia -Indicated D5W. Also indicated IV lasix Gastrointestinal # Transaminitis -Improved # Rule out choledocholithiasis/cholangitis -Presented dilated CBD on abdomen/pelvis CT and MRCP. HLOC recommended ERCP as outpatient # Fatty liver -Monitor Musculoskeletal # Chronic right wrist fracture - secondary to mechanical fall -Monitor # Arthritis -Monitor Hematological # DVT of cephalic vein -Under therapeutic enoxaparin Prophylaxis for PUD and DVT: Theraprutic prophylaxis and Pantoprazole Nutrtion: [id number] ml/h Lines 12/09/2023 Right arm PICC line 11/17/2023 ET 11/17/2023 NG Drips FNT 325 Versed 12 NE 0 Goals of care discussed with family (daughter) for over 18 minutes: Full code status Discussed case with Dr. Benitez, for the family and nurses: Currently ICU status, under empiric IV antibiotics, ordered wooten cultures and wooten CT with IV contrast. Planning to complete trach and PEG. Infectious Disease, Neurology, surgical and GI specialist on board. Patient has poor prognosis Critical care time spent including discussion with nursing and family: 72 minutes Plan discussed with: Patient, Daughter, Other (Nurses) My Orders My Orders Orders - MIRACLE SALGADO RESIDENT Procedure Category Date Status Time Abg W/ Co-Ox RT 12/10/23 Logged 04:00 Enoxaparin Sodium PHA 12/09/23 In Process (Lovenox) 22:00 Chest Xray 1 View XY 12/11/23 Logged 05:00 Chest Xray 1 View XY 12/12/23 Logged 05:00 Chest Xray 1 View XY 12/13/23 Logged 05:00 Chest Xray 1 View XY 12/14/23 Logged 05:00 Chest Xray 1 View XY 12/15/23 Logged 05:00 Chest Xray 1 View XY 12/16/23 Logged 05:00 Chest Xray 1 View XY 12/17/23 Logged 05:00 Chest Xray 1 View XY 12/18/23 Logged 05:00 Chest Xray 1 View XY 12/19/23 Logged 05:00 Ventilator Orders RT 12/10/23 Transmitted 09:41 Abg W/ Co-Ox RT 12/10/23 Logged 09:41 Chest Portable XY 12/10/23 Resulted 10:05 Brain Head Wo W MRI 12/12/23 Logged Contrast 13:00 Phosphorus LAB 12/11/23 Verified 04:00 Magnesium LAB 12/11/23 Verified 04:00 Comprehensive LAB 12/11/23 Verified Metabolic Panel 04:00 Complete Blood Count LAB 12/11/23 Verified 04:00 Abg W/ Co-Ox RT 12/11/23 Logged 04:00 Nutritional PHA 12/10/23 Transmitted Supplements (Glucerna 16:45 Dietary Evaluation Review Comments: 1) If GI is accessible consider Glucerna 1.2 @ 55 ml/hr goal rate as tolerated 2) If pt remains NPO >7 days consider TPN to meet at least 75% of estimated needs 3) Advance pt diet when medically feasible to a CCHO 45g/Cardiac diet modified per TOLL TESTBOARD WORKER recommendations 4) Continue current plan of care Expected Outcomes/Goals: 1) Pt to receive nutrition support within 7 days of NPO status 2) Pt diet to advance 3) F/U in 2-3 days Date of Service: Dec 10, 2023 Billing Provider: TAD BENITEZ MD Common Visit Codes: 18566-[id number] CARE 30-74 MIN MIRACLE SALGADO RESIDENT Dec 10, 2023 16:57 TAD BENITEZ MD Dec 10, 2023 23:52
--- NOTE | 2023-12-10 17:42 | DVHPN2 ---
Consult Progress Note Date Seen: Dec 10, 2023 Subjective Patient reports: Feels worse (hypotensive of 95/46 blood pressure, elevated white count to 15.7, fevers up to 100.9 with cooling measures taken) Objective vital signs Vital Sign Date Time Temp Pulse Resp B/P (MAP) Pulse Ox O2 Delivery O2 Flow Rate FiO2 12/10/23 16:30 98.1 66 25 124/46 (72) 100 208.6 12/10/23 16:00 30 12/10/23 08:00 Mechanical Ventilator+ Total Intake and Output 12/09/23 12/09/23 12/10/23 13:00 21:00 05:00 Intake Total 752.80 ml 1141.00 ml 1053.75 ml Output Total 1000 ml 1200 ml Balance -247.20 ml -59.00 ml 1053.75 ml medications Current Medications Medications Dose Ordered Sig/Leslie Route Start Time Stop Time Status Last Admin Dose Admin Albuterol 2.5 mg Q4HR PRN NEB 12/08/23 19:30 12/10/23 02:10 2.5 MG Ipratropium [place] 0.5 mg Q4HR NEB 12/08/23 22:00 12/10/23 02:10 0.5 MG Ondansetron HCl 4 mg Q4HP PRN IV 12/08/23 19:30 Pantoprazole Sodium 40 mg DAILY IV 12/09/23 10:00 12/10/23 10:20 40 MG Fentanyl Citrate 250 ml @ 2.5 mls/hr Q24H IV 12/08/23 20:30 12/10/23 12:32 35 MLS/HR Hydralazine HCl 10 mg Q4HP PRN IV 12/09/23 05:30 12/09/23 05:50 10 MG Dextrose 1,000 ml @ 75 mls/hr [id number] IV 12/09/23 07:45 12/10/23 09:40 75 MLS/HR Furosemide 40 mg DAILY IV 12/09/23 10:00 12/10/23 10:20 40 MG Norepinephrine Bitartrate 250 ml @ 3.75 mls/hr Q24H IV 12/09/23 08:15 12/09/23 08:00 3.75 MLS/HR Midazolam HCl 50 ml @ 5 mls/hr Q10H IV 12/09/23 09:00 12/10/23 16:03 14 MLS/HR Sodium Chloride 10 ml QSHIFT@10,22 IV 12/09/23 22:00 12/10/23 10:21 10 ML Diagnostic Test (Pha) 1 strip Q6HR 12/09/23 18:00 12/10/23 12:34 1 STRIP Insulin Human Regular Q6HR SC 12/09/23 18:00 12/10/23 06:07 4 UNITS Dextrose 50 ml UD PRN IV 12/09/23 16:15 Fluconazole 100 ml @ 100 mls/hr 10,11 IV 12/10/23 10:00 12/10/23 15:16 100 MLS/HR Vancomycin HCl 200 ml @ 200 mls/hr Q20H IV 12/09/23 21:00 12/10/23 17:21 200 MLS/HR Enoxaparin Sodium 70 mg Q12HR SC 12/09/23 22:00 12/10/23 10:21 70 MG Acetaminophen 650 mg Q6HP PRN NC 12/10/23 01:30 12/10/23 02:02 650 MG Cefepime HCl 50 ml @ 12.5 mls/hr Q12HR IV 12/10/23 14:45 12/10/23 16:35 12.5 MLS/HR Enteral Nutritional Formula 1,000 ml 30ML/HR GT 12/10/23 16:45 Physical Exam: - General: Patient is intubated and sedated, on minimal vent 30% - Neck: Supple. No masses. - HEENT: PERRL. Normal lids and conjunctiva. Moist mucous membranes. Oropharynx without lesions, exudates, or erythema. Normal appearance of the external aspects of the nose and ears. - Heart: Was tachycardic overnight to 102 but now has a normal reading rhythm. No murmur. No lower extremity edema. - Lungs: Normal respiratory effort. Clear to auscultation bilaterally. No wheezes. No crackles. - Abdomen: Soft. Non-tender. Non-distended. No masses or abdominal hernia. - MSK: No digital cyanosis. Normal strength and tone in all 4 limbs. - Skin: Warm and dry, no rashes. - Neuro: Alert. No facial droop or slurred speech. Extra-ocular movements intact. Sensation intact to soft touch in all 4 limbs. - Psych: intubated and sedated laboratory and microbiology Laboratory Tests 12/10/23 04:53 Test 12/10/23 04:53 Range/Units Serum Glucose 216 H 74-106 mg/dL Problem List/Assessment/Plan Problems(with codes): (1) Hospital-acquired pneumonia (2) COPD (chronic obstructive pulmonary disease) (3) DKA (diabetic ketoacidosis) (4) HTN (hypertension) (5) Closed right hip fracture Problem List/Assessment/Plan Assessment/Plan Problems(with codes): (1) Hospital-acquired pneumonia (2) COPD (chronic obstructive pulmonary disease) (3) DKA (diabetic ketoacidosis) (4) HTN (hypertension) (5) Closed right hip fracture Plan/Recommendation ASSESSMENT AND PLAN: ID Problem List: - Aspiration pneumonia - Acute respiratory failure - Diabetic Ketoacidosis (DKA) - Sepsis due to UTI vs pneumonia - Acute Kidney Injury (YULIANA) - Hypernatremia - Transaminitis - Fatty liver - Uncontrolled diabetes (A1C of 11.7) - Hypothyroidism - Hypertension - COPD without exacerbation - Chronic kidney disease (CKD) Assessment: This is a 68-year-old female with a past medical history of diabetes, hypertension, recurrent DKA, hypothyroidism, obesity, COPD, neuropathies, mechanical falls, liver cirrhosis, and multiple joint replacements. The patient presented to the ED with acute loss of consciousness on 11/15/2023, subsequently diagnosed with DKA and an upper GI bleed. While at [facility], a CT and MRI of the head showed concerning lesions for metastasis vs. infectious process and gallbladder issues. Due to renal failure, these images were performed without contrast. An ERCP at [facility] showed no gallstones or common bile duct obstruction. Currently, the patient is reintubated on minimal sedation and receiving broad-spectrum antibiotics for presumed meningitis and other infections. 12/09: Patient has had a repeat abdomen, pelvis, chest Ct with contrast which shows no acute findings in the abdomen and pelvis. multifocal airspace in the lungs was shown. 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 Plan: - Recomend aquiring spudum cultures due to fevers and multifocal airspace disease - Start Cephapine for meningitis and hospital aquired pneumonia - Continue vancomycin - Stop metronidazole at this time. - Continue fluconazole. - Stop ampicillin this time. - Blood cultures monitoring. - Consider contrasted MRI head imaging. - Consider contrasted CT chest imaging. - Monitor respiratory status and adjust ventilator settings as necessary. - Monitor and manage blood glucose levels. - Supportive care as needed. Isolation Precautions: Standard Assessment and plan was discussed with the patient as written above. Plan is subject to change pending incorporation of new incoming information/diagnostics. Updates may be added as addendum at the bottom (OR TOP) of this note. Thank you for interesting consult. ID will continue to follow. Please contact Infectious disease for any questions or concerns. Nithin Carrasco M.D. [facility] Ph: ? History: The patient's chart and medications were reviewed in detail, and the patient was seen and examined. History obtained from: patient. Inna Sanderson is a 68 y.o. female, with a past medical history of diabetes, CSH, hypertension, hypothyroidism, DKA, obesity, COPD, neuropathies, mechanical fall, and liver cirrhosis, who presented with acute loss of consciousness on 11/15/2023. Review of Systems: A complete 10 system review of systems was completed and negative except as noted in the HPI or here. ROS: - CONSTITUTIONAL: Denies weight loss, fever, and chills. - HEENT: Denies changes in vision and hearing. - RESPIRATORY: Denies SOB and cough. - CV: Denies palpitations and chest pain. - GI: Denies abdominal pain, nausea, vomiting, and diarrhea. - : Denies dysuria and urinary frequency. - MSK: Denies myalgia and joint pain. - SKIN: Denies rash and pruritus. - NEUROLOGICAL: Denies headache and syncope. - PSYCHIATRIC: Denies recent changes in mood, anxiety, and depression. Past Medical History: - Diabetes - Hypertension - Hypothyroidism - Obesity - COPD - Neuropathies - Mechanical falls - Liver cirrhosis Past Surgical History: - Three hip replacements - Right knee replacement Home Medications: - Insulin - Ibuprofen - Levothyroxine - Mirapex - Precaulin Allergies: No known allergies. Family History: - Prostate cancer (Father) - Diabetes (Sister) - Prostate cancer (Brother) Social History: - Marital status: (details not on file) - Smoking status: Quit smoking two years ago, 40 pack-year history - Alcohol use: Never - Drug use: Never - Sexual activity: Not currently Social Determinants of Health: - Financial Resource Strain: Low Risk - Food Insecurity: Low Risk - Transportation Needs: Low Risk Objective: Physical Exam: - General: NAD - Neck: Supple. No masses. - HEENT: PERRL. Normal lids and conjunctiva. Moist mucous membranes. Oropharynx without lesions, exudates, or erythema. Normal appearance of the external aspects of the nose and ears. - Heart: Regular rhythm, normal rate. No murmur. No lower extremity edema. - Lungs: Normal respiratory effort. Clear to auscultation bilaterally. No wheezes. No crackles. - Abdomen: Soft. Non-tender. Non-distended. No masses or abdominal hernia. - MSK: No digital cyanosis. Normal strength and tone in all 4 limbs. - Skin: Warm and dry, no rashes. - Neuro: Alert. No facial droop or slurred speech. Extra-ocular movements intact. Sensation intact to soft touch in all 4 limbs. - Psych: Appropriate mood. Full affect. Oriented to person, place, time, and situation. Lines: - Active Lines: Peripheral IV Line - 12/09/23 0810 Left Anterior (palmar) Upper Arm 20 gauge <1 day Diagnostic Studies: Available diagnostic studies were reviewed personally. Significant relevant results and findings are outlined below or addressed in the Assessment and Plan above. Pertinent Imaging: CT Head (11/17/2023): - Interval development of hyper-dense lesions in the bilateral cerebral hemispheres and right occipital lobe measuring 2.6 cm, concerning for metastasis vs atypical infection. MRI Head (12/05/2023): - Multiple enhancing lesions in the bilateral cerebral hemispheres, right parietal and occipital lobes. No evidence of demyelinating disease. TTE: - Ejection Fraction: 55% - Grade 1 diastolic dysfunction - Normal biatrial size - Aortic, mitral, tricuspid, and pulmonary valves all normal. Chest X-ray (Today): - No significant change. - Small opacity right lung base possibly reflecting atelectasis or pneumonia. Doppler Ultrasound: - No DVTs detected. Plan discussed with: Patient Dietary Evaluation Review Comments: 1) If GI is accessible consider Glucerna 1.2 @ 55 ml/hr goal rate as tolerated 2) If pt remains NPO >7 days consider TPN to meet at least 75% of estimated needs 3) Advance pt diet when medically feasible to a CCHO 45g/Cardiac diet modified per INTERNAL CONTROL CONSULTANT recommendations 4) Continue current plan of care Expected Outcomes/Goals: 1) Pt to receive nutrition support within 7 days of NPO status 2) Pt diet to advance 3) F/U in 2-3 days NITHIN CARRASCO MD Dec 10, 2023 17:42
[2023-12-11] VITALS (108 sets, daily range): BP systolic 95–169; BP diastolic 32–61; PULSE 60–77; RESP 16–25; TEMP 97.7–99; O2SAT 96–100
[2023-12-11 04:08] LABS: Alanine Aminotransferase 16 U/L (7-40); Albumin 2.7 g/dL (3.2-4.8); Alkaline Phosphatase 199 U/L (46-116); Aspartate Aminotransferase 23 U/L (13-40); BUN/Creatinine Ratio 10.9 (10.0-20.0); Blood Urea Nitrogen 16 mg/dL (9-23); Chloride 112 mmol/L (98-107); Glucose 159 mg/dL (74-106); Magnesium 1.5 mg/dL (1.6-2.6); Phosphorus 3.6 mg/dL (2.4-5.1); Potassium 3.5 mmol/L (3.5-5.1); Sodium 138 mmol/L (136-145)
[2023-12-11 04:09] LABS: Anion Gap 7 (5-15); Bilirubin, Total < 0.2 mg/dL (0.2-1.0); Carbon Dioxide 19 mmol/L (20-30)
[2023-12-11 04:15] LABS: Hematocrit 20.2 % (36.0-46.0); Mean Corpuscular Hemoglobin 29.5 pg (28.0-32.0); Mean Corpuscular Hgb Conc. 32.4 g/dL (32.0-36.0); Mean Corpuscular Volume 90.9 fL (80.0-100.0); Platelet Count (auto) 338 10^3/uL (140-450); Red Blood Cells 2.22 10^6/uL (4.0-5.20); Red Cell Distribution Width 15.9 % (11.8-14.3); White Blood Cell 6.8 10^3/uL (4.4-10.8)
[2023-12-11 04:19] LABS: Hemoglobin 6.6 g/dL (12.2-16.2)
[2023-12-11 04:20] LABS: Basophils % (manual) 0 (0.0-2.0); Blast Cells 0; Calcium 8.5 mg/dL (8.7-10.4); Metamyelocytes % 0; Myelocytes % 0; Promyelocytes % 0
--- NOTE | 2023-12-11 05:44 | DVH ---
CHEST RADIOGRAPH Indication:post transfer intubated Technique: Single frontal view of the chest was obtained COMPARISON: XY CHEST PORTABLE on DOS: 12/10/23, XY CHEST PORTABLE on DOS: 12/10/23, XY CHEST PORTABLE o n DOS: 12/09/23 FINDINGS: Lines and Tubes: Endotracheal tube, enteric catheter and left PICC in satisfactory position Lungs: Congestion Pleura: No effusion. No pneumothorax. Cardiomediastinal contours: Unremarkable Bones: Unremarkable IMPRESSION: Lines and tubes in satisfactory position. No significant interval change.
[2023-12-11 07:36] LABS: Band Neutrophils % (manual) 8; Eosinophils % (manual) 18 (0-7); Lymphocytes % (manual) 35 (10.0-50.0); Monocytes % (manual) 4 (0-12); Reactive Lymphocytes 5
[2023-12-11 07:37] LABS: Anisocytosis Slight; Ovalocytes FEW
[2023-12-11 07:38] LABS: Platelet Estimate Adequate
[2023-12-11] MEDS: MAGNESIUM SULFATE 1GM/100ML 100 ML IV SCH ×2 (12:43→20:58)
[2023-12-11] MEDS: POTASSIUM CHL 20MEQ/100ML 100 ML IV ONE (12:43)
[2023-12-11 16:34] LABS: Hematocrit 23.8 % (36.0-46.0); Hemoglobin 7.8 g/dL (12.2-16.2)
--- NOTE | 2023-12-11 17:03 | DVHPN2 ---
Progress Note - Dictate Date Seen: Dec 11, 2023 Medical Necessity Reason Pt with a Central, PICC or Fol: Yes The following are medically ne: PICC Line, Jones Catheter Subjective Mr. Sanderson is a 68 years old female with a history of hypertension, diabetes, hypothyroidism, COPD, obesity, diabetic polyneuropathy, arthritis, liver cirrhosis, she was transferred back from the [facility] on 12/08/2023 after ERCP. I have seen examined the patient, I have talked to her nurse, she responds to painful stimuli, clinically no obvious changes Versed 14 mg/hour, fentanyl 350 mcg/hour, levo 2 mcg/minute LLU Neurosurgery consultation: The lesions likely represents infarct, recommend Re attempting MRI spectrography for further evaluation Neuro consultation: Lumbar puncture was not recommended concerning possibility of herniation EEG, 11/28/2023: No seizure/nonconvulsive status epileptics (I did not see report) TTE, 11/29/23: EF: 70-75% (I did not see report) MRI brain (no report): signal abnormality in bilateral cerebellum and right occipital lobe, punctate foci in right parietal lobe and central semiovale- unable to differentiate subacute ischemia 2/2 MR effects versus infection versus metastasis. Recommend contrast enhanced MRI MRI, 12/05/23: No evidence of demyelinating disease (I did not see report) MRI orbital, face, neck ww 12/05/2023, comparison: MR brain 11/28/2023: No evidence of mucormycosis infection. Multiple irregularly enhancing cerebellar and right occipital lesions were better evaluated on recent brain MRI MRI C-spine, 12/05/2023: No evidence of demyelinating disease in the cervical spine. Moderate degenerative changes. Grade 1 anterolisthesis of C7 on T1 MRI lumbar spine wwo, 12/05/2023: No evidence of demyelinating disease in the lumbar spine. Degenerative changes and grade 1 anterolisthesis of L4 and L5. Mild central spinal stenosis at L4-5. Mvyi-of-gawpidhj multilevel bilateral foraminal stenosis as described above MRI spectroscopy 12/05/2023: Cerebellar lesion showing moderately elevated Cho, reduced ZINA, large lipid peaks, and additional tics suspicious for amino acids and alanine. The alanine and amino acids are suspicious for an infectious process Treatment according to discharge note: ASA 81mg Qd, Lipitor 20 mg daily Urinalysis, 12/08/2023: WBC: 93, urine leukocyte esterase: 3+ ABG, 12/09/2023: Metabolic acidosis WBC/HB/PLT/MCV, 12/09/2023: 8.5/7.4/350/92.4 PT/INR/PTT, 12/08/2023: 11.4/1.08 Na, 12/08/2023: 147, 12/09/2023: 146 TBI/AST/ALT/AP, 12/09/2023: 0.2/40/21/278 TG/HDL/LDL/HDL, 11/2023: 136/96/38/32 Vitamin B12, 11/2023: 2537 TSH, 11/2023: 17.87 YOLANDA, 12/10/2023: n the study done today no evidence of vegetation or masses were discernible. There is mild mitral valve regurgitation with mild anterior leaflet prolapse. No significant intracardiac lesion was discernible Echocardiogram, 11/18/2023: Normal left ventricular size and dimension. Normal left ventricular systolic function estimated ejection fraction 55%. There is a grade 1 diastolic dysfunction. Normal right ventricular size and dimension. Normal right ventricular systolic function. Mildly increased right ventricular systolic pressure 34 mm of mercury. Normal biatrial size and dimension. Normal aortic valve structure and function. Normal mitral valve structure and function. Normal tricuspid valve structure and function. The pulmonary valve is grossly normal. No pericardial effusion. Carotid Doppler, 11/21/2023: 1. No evidence of hemodynamically significant stenosis within the left carotid arterial system. 2. Antegrade flow within the left vertebral artery. 3. Cannot assess the right carotid arterial system due to central line artifact and overlying bandage. Extremity venous study, 12/09/2023: Thrombus in the LEFT cephalic and brachial vein. Thrombus in the RIGHT cephalic and basilic vein.If clinical concern/symptoms persist or worsen, short-interval follow-up study is suggested. Chest x-ray, 12/08/2023: 1. Endotracheal and gastric tubes in place as described. Satisfactory position. 2. Removal of right PICC and right IJ central venous catheter since prior. 3. Mild cardiomegaly and pulmonary vascular congestion. 4. Small opacity in the lateral right lung base which could reflect atelectasis or pneumonia MRI head, 11/21/2023: Signal abnormality in the bilateral cerebellum and right occipital lobe, as well as punctate foci in the right parietal lobe and centrum semiovale. Findings could represent regions of subacute ischemia due to embolic infarcts; however, underlying metastases or infection are not excluded. Recommend contrast-enhanced MRI vital signs Vital Sign Date Time Temp Pulse Resp B/P (MAP) Pulse Ox O2 Delivery O2 Flow Rate FiO2 12/11/23 16:13 76 24 123/49 (73) 100 30 12/11/23 12:54 98.4 98.4 12/11/23 08:00 Mechanical Ventilator+ Total Intake and Output 12/10/23 12/10/23 12/11/23 15:00 23:00 07:00 Intake Total 1003.25 ml 1307.937 ml 1072.00 ml Output Total 1000 ml 900 ml Balance 1003.25 ml 307.937 ml 172.00 ml medications Current Medications Medications Dose Ordered Sig/Leslie Route Start Time Stop Time Status Last Admin Dose Admin Albuterol 2.5 mg Q4HR PRN NEB 12/08/23 19:30 12/11/23 14:48 2.5 MG Ipratropium [place] 0.5 mg Q4HR NEB 12/08/23 22:00 12/11/23 14:47 0.5 MG Ondansetron HCl 4 mg Q4HP PRN IV 12/08/23 19:30 Pantoprazole Sodium 40 mg DAILY IV 12/09/23 10:00 12/11/23 09:41 40 MG Fentanyl Citrate 250 ml @ 2.5 mls/hr Q24H IV 12/08/23 20:30 12/11/23 15:58 35 MLS/HR Hydralazine HCl 10 mg Q4HP PRN IV 12/09/23 05:30 12/09/23 05:50 10 MG Dextrose 1,000 ml @ 75 mls/hr [id number] IV 12/09/23 07:45 12/11/23 10:35 75 MLS/HR Furosemide 40 mg DAILY IV 12/09/23 10:00 12/11/23 12:31 40 MG Norepinephrine Bitartrate 250 ml @ 3.75 mls/hr Q24H IV 12/09/23 08:15 12/09/23 08:00 3.75 MLS/HR Midazolam HCl 50 ml @ 5 mls/hr Q10H IV 12/09/23 09:00 12/11/23 13:55 14 MLS/HR Sodium Chloride 10 ml QSHIFT@10,22 IV 12/09/23 22:00 12/11/23 09:42 10 ML Diagnostic Test (Pha) 1 strip Q6HR 12/09/23 18:00 12/11/23 11:29 1 STRIP Insulin Human Regular Q6HR SC 12/09/23 18:00 12/11/23 11:33 3 UNITS Dextrose 50 ml UD PRN IV 12/09/23 16:15 Vancomycin HCl 0 ml @ 0 mls/hr UD IV 12/09/23 19:00 Fluconazole 100 ml @ 100 mls/hr 10,11 IV 12/10/23 10:00 12/11/23 10:37 100 MLS/HR Enoxaparin Sodium 70 mg Q12HR SC 12/09/23 22:00 12/11/23 09:42 70 MG Acetaminophen 650 mg Q6HP PRN LA 12/10/23 01:30 12/10/23 02:02 650 MG Cefepime HCl 50 ml @ 12.5 mls/hr Q12HR IV 12/10/23 14:45 12/11/23 11:39 12.5 MLS/HR Enteral Nutritional Formula 1,000 ml 30ML/HR GT 12/10/23 16:45 objective The patient is well-nourished and well-developed with no distress. The patient is intubated MENTAL STATUS: Not responsive to the surroundings, CRANIAL NERVES: Pupils are equal, round and reactive, small. There are corneal reflexes and doll's eyes phenomenon. No signs of facial weakness. There are gagging or coughing reflexes SENSATION: No responses to pain stimuli. MOTOR: Normal tone in the upper and lower extremity. Normal muscle bulk. No fasciculations. No spontaneous movement. REFLEXES: Deep tendon reflexes are symmetrical. No pathological reflexes. CEREBELLAR/COORDINATION: Deferred GAIT/STATION: deferred. laboratory and microbiology Laboratory Tests 12/11/23 16:24 12/11/23 03:37 Test 12/11/23 03:37 Range/Units Serum Glucose 159 H 74-106 mg/dL Problem List Abnormal MRI brain scan, likely the patient has multiple stroke Coma Metabolic encephalopathy Hypoxic encephalopathy Multiple strokes Ketoacidosis Bilateral upper extremity deep venous thrombosis Rule out subacute endocarditis Assessment/Plan Monitoring Supportive treatment ICU care Respiratory support/vent management Stabilize vitals IV antibiotics Lovenox 1 mg/kg subcutaneous b.i.d. Lipitor 20 mg daily Cardiology on case Infectious disease on case Consider trach and PEG More recommendation per clinical course This medical document was created using an electronic medical record system with [employer] dictation system. Although this document has been carefully reviewed, there may still be some phonetic and typographical errors. These areas are purely typographical due to imperfections of the software programs, and do not reflect any compromise in the patient's medical care. Prognosis guarded Dietary Evaluation Review Comments: 1) If GI is accessible consider Glucerna 1.2 @ 55 ml/hr goal rate as tolerated 2) If pt remains NPO >7 days consider TPN to meet at least 75% of estimated needs 3) Advance pt diet when medically feasible to a CCHO 45g/Cardiac diet modified per [employer] HELPER recommendations 4) Continue current plan of care Expected Outcomes/Goals: 1) Pt to receive nutrition support within 7 days of NPO status 2) Pt diet to advance 3) F/U in 2-3 days Plan discussed with: Other Critical Care Time(min): 35 DREW FAGAN MD Dec 11, 2023 17:03
--- NOTE | 2023-12-11 17:05 | DVHPN2 ---
Subjective Intubated and sedated FiO2 30% Peep of 5 Changes from previous H/P or p: Changes Objective Vitals Vital Signs Date Time Temp Pulse Resp B/P (MAP) Pulse Ox O2 Delivery O2 Flow Rate FiO2 12/11/23 16:13 76 24 123/49 (73) 100 30 12/11/23 12:54 98.4 98.4 12/11/23 08:00 Mechanical Ventilator+ Intake/Output Intake and Output 12/11/23 07:00 Intake Total 3383.187 ml Output Total 1900 ml Balance 1483.187 ml Intake Oral 0 ml IV Total 3383.187 ml Output Urine Total 1900 ml General Appearance: Other (Intubated and sedated) Lungs: Clear to auscultation, Other (Bilateral rhonchi) Cardiovascular: Regular rate, Normal S1, Normal S2, No murmurs Abdomen: Normal bowel sounds, Soft, No tenderness Extremities: No edema Medications Current Medications Medications Dose Ordered Sig/Leslie Route Start Time Stop Time Status Last Admin Dose Admin Albuterol 2.5 mg Q4HR PRN NEB 12/08/23 19:30 12/11/23 14:48 2.5 MG Ipratropium [place] 0.5 mg Q4HR NEB 12/08/23 22:00 12/11/23 14:47 0.5 MG Ondansetron HCl 4 mg Q4HP PRN IV 12/08/23 19:30 Pantoprazole Sodium 40 mg DAILY IV 12/09/23 10:00 12/11/23 09:41 40 MG Fentanyl Citrate 250 ml @ 2.5 mls/hr Q24H IV 12/08/23 20:30 12/11/23 15:58 35 MLS/HR Hydralazine HCl 10 mg Q4HP PRN IV 12/09/23 05:30 12/09/23 05:50 10 MG Dextrose 1,000 ml @ 75 mls/hr [id number] IV 12/09/23 07:45 12/11/23 10:35 75 MLS/HR Furosemide 40 mg DAILY IV 12/09/23 10:00 12/11/23 12:31 40 MG Norepinephrine Bitartrate 250 ml @ 3.75 mls/hr Q24H IV 12/09/23 08:15 12/09/23 08:00 3.75 MLS/HR Midazolam HCl 50 ml @ 5 mls/hr Q10H IV 12/09/23 09:00 12/11/23 13:55 14 MLS/HR Sodium Chloride 10 ml QSHIFT@10,22 IV 12/09/23 22:00 12/11/23 09:42 10 ML Diagnostic Test (Pha) 1 strip Q6HR 12/09/23 18:00 12/11/23 11:29 1 STRIP Insulin Human Regular Q6HR SC 12/09/23 18:00 12/11/23 11:33 3 UNITS Dextrose 50 ml UD PRN IV 12/09/23 16:15 Vancomycin HCl 0 ml @ 0 mls/hr UD IV 12/09/23 19:00 Fluconazole 100 ml @ 100 mls/hr 10,11 IV 12/10/23 10:00 12/11/23 10:37 100 MLS/HR Enoxaparin Sodium 70 mg Q12HR SC 12/09/23 22:00 12/11/23 09:42 70 MG Acetaminophen 650 mg Q6HP PRN MI 12/10/23 01:30 12/10/23 02:02 650 MG Cefepime HCl 50 ml @ 12.5 mls/hr Q12HR IV 12/10/23 14:45 12/11/23 11:39 12.5 MLS/HR Enteral Nutritional Formula 1,000 ml 30ML/HR GT 12/10/23 16:45 Laboratory Results Laboratory Tests 12/11/23 03:37 12/11/23 16:24 Chemistry Test 12/11/23 03:37 Albumin 2.7 g/dL (3.2-4.8) L Calcium Level 8.5 mg/dL (8.7-10.4) L Magnesium Level 1.5 mg/dL (1.6-2.6) L Phosphorus Level 3.6 mg/dL (2.4-5.1) Total Protein 5.0 g/dL (5.7-8.2) L LFT Test 12/11/23 03:37 Alanine Aminotransferase (ALT) 16 U/L (7-40) Alkaline Phosphatase 199 U/L (46-116) H Aspartate Amino Transferase (AST) 23 U/L (13-40) Total Bilirubin < 0.2 mg/dL (0.2-1.0) L Urinalysis Test 12/08/23 19:00 Urine Color Yellow (Yellow) Urine Clarity Clear (Clear) Urine pH 6.5 (5.0-9.0) Urine Specific [place] 1.021 (1.001-1.035) Urine Protein 1+ (Negative) H Urine Ketones Negative (Negative) Urine Blood 2+ /uL (Negative) H Urine Nitrite Negative (Negative) Urine Bilirubin Negative (Negative) Urine Urobilinogen Normal mg/dL (Negative) Urine Leukocyte Esterase 3+ /uL (Negative) Urine RBC 4 /hpf (0 - 4) Urine WBC 93 /hpf (0 - 5) Urine WBC Clumps Present /hpf (None Seen) Urine Squamous Epithelial Cells Few /hpf (<5) Urine Bacteria Few /hpf (None Seen) H Urine Glucose Trace mg/dL (Normal) Blood Gas Results Test 12/11/23 07:05 Arterial Blood pH 7.372 (7.350-7.450) FiO2 % 30.0 Microbiology Microbiology Date/Time Source Procedure Growth Status 12/09/23 09:28 Blood Blood Culture - Preliminary NO GROWTH AFTER 48 HOURS OF INCUBATION. 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 Rule out metastasis versus infection Acute hypoxic respiratory failure Recent DKA Metabolic encephalopathy due to sepsis Sepsis Aspiration pneumonia COPD Acute on chronic diastolic heart failure, ejection fraction 55% No endocarditis Hypertension Sepsis with septic shock Septic shock due to UTI and pneumonia Rule out brain abscess Uncontrolled diabetes, A1c 11.7 Hypothyroidism UTI Hypernatremia Fatty liver DVT of cephalic vein Anemia status post blood transfusion Acute kidney injury due to vasomotor nephropathy Plan: The patient appears to be dry with elevated creatinine today at 1.4 Bolus 500 mL NS Increase the IV fluids DC the [facility] Nephrology consult IV antibiotics: Vancomycin + cefepime, IV fluconazole Vasopressors: Norepinephrine, Sedation: Versed, fentanyl Lovenox 70 mg twice a day Protonix Plan discussed with: Other Date of Service: Dec 11, 2023 Billing Provider: REFUGIO VALENTE MD Common Visit Codes: [id number] INP/OBS CARE(HIGH) REFUGIO VALENTE MD Dec 11, 2023 17:05
[2023-12-11] MEDS: D5W 5% 1,000 ML IV SCH (17:15)
[2023-12-11] MEDS: SODIUM CHLORIDE 0.9% 500 ML IV ONE (18:30)
--- NOTE | 2023-12-11 20:05 | DVHINCON2 ---
Date of service: Dec 11, [address] KING Reason for Consultation For PEG tube placement History of Present Illness This is a 68-year-old female with diabetes hypertension hypothyroidism has apparently had sepsis versus brain mass infections despite failure patient patient multiple surgeries including three hip replacement right knee replacement patient had emergency intubation in [facility] apparently on 11/16/2019 patient apparently had some workup at [facility] on 12/08/2023 after some ERCP and dilation apparent patient had an MRI which showed multiple lesions in the post hemispheres including cerebellum apparently she was evaluated by Neurology there also and then had multiple workup including MRI spectroscopy MR brain scan etc.. Occasion has been p rogressively getting worse with increasing since increasing problems with strokes and needing ventilatory support and patient has been unable to be weaned off and hence the reason for peg tube placement now for long-term care Past Medical History Diabetes hypothyroidism obesity and brain infection versus stroke and acute kidney infection liver cirrhosis Past Surgical History Hip replacement knee surgery Family History: Patient reports no known family medical history. Family History Unremarkable Social History Denies smoking or drinking Allergies: Coded Allergies: NO KNOWN ALLERGIES (Unverified , 10/26/12) Home Meds Active Scripts Glipizide (Glipizide) 10 Mg Tab, 1 TAB PO DAILY for 30 Days, #30 TAB 5 Refills Prov:MIRACLE SALGADO 10/12/23 Amoxicillin & Pot Clavulanate (Augmentin) 500 Mg Tab, 1 TAB PO BID for 10 Days, #20 TAB Prov:MIRACLE SALGADO 10/12/23 Cyanocobalamin (B-12) 1,000 Mcg Delbert, 1000 MCG PO DAILY for 30 Days, #30 DELBERT Prov:MIRACLE SALGADO 10/12/23 Ergocalciferol (VITAMIN D 12157 UNIT) 50,000 [place], [address] UNIT PO Q7D for 30 Days, #10 CAP Prov:MIRACLE SALGADO 10/12/23 Acetaminophen (Acetaminophen) 325 Mg Tab, 650 MG PO Q6HP PRN for 10 Days, #80 TAB Prov:MIRACLE SALGADO 10/12/23 Insulin Aspart (Insulin Aspart) 100 Unit/Ml Inj, 100 UNIT SC TIDWM for 30 Days, #1 INJ 4 Refills insulin per sliding scale qac tid 150-200: 2 units 201-250: 4 units 251-300: 8 units' 301-350: 12 units 351-400: 15 units >400 call doctor Prov:FREEDOM RAZO MD 05/26/23 Insulin Glargine (Lantus) 100 Unit/Ml Inj, 20 UNIT SC QPM for 30 Days, #1 INJ 3 Refills Prov:FREEDOM RAZO MD 05/26/23 Reported Medications Atorvastatin Calcium (ATORVASTATIN CALCIUM) 20 Mg Tab, 20 MG PO DAILY, TAB 10/08/23 Lisinopril (Lisinopril) 10 Mg Tab, 10 MG PO DAILY, MG 10/08/23 Pregabalin (Pregabalin) 150 Mg Cap, 150 MG PO BID, CAP 10/08/23 Pramipexole Dihydrochloride (Pramipexole Dihydrochlori) 0.75 Mg Tab, 0.75 MG PO TID, TAB 10/08/23 Levothyroxine Sodium (Levothyroxine Sodium) 150 Mcg Tab, 150 MCG PO QAM for 30 Days 08/12/17 Current Medications Current Medications Medications (Trade) Dose Ordered Sig/Leslie Route PRN Reason Start Time Stop Time Status Last Admin Magnesium Sulfate/ Dextrose 100 ml @ 100 mls/hr Q1HR IV 12/11/23 12:00 12/11/23 13:59 DC 12/11/23 13:55 Dextrose 1,000 ml @ 125 mls/hr Q8H IV 12/11/23 17:15 Review of Systems unable to give much details noncontributory Vital Signs Vital Signs Date Time Temp Pulse Resp B/P (MAP) Pulse Ox O2 Delivery O2 Flow Rate FiO2 12/11/23 18:45 98.4 68 16 117/37 (63) 98 209.1 12/11/23 18:24 30 12/11/23 08:00 Mechanical Ventilator+ Physical Exam Originally built and nourished female intubated Lungs clear Cardiovascular unremarkable Abdomen soft no tenderness no rigidity no guarding no masses Labs/Diagnostic Data Labs Test 12/11/23 19:48 12/11/23 18:11 12/11/23 16:24 12/11/23 12:59 Range/Units POC Glucose 188 H 70-106 mg/dl Hemoglobin 7.8 #L 12.2-16.2 g/dL Hematocrit 23.8 #L 36.0-46.0 % Vancomycin Level Trough 32.2 *H 10-20 ug/mL Test 12/11/23 07:05 12/11/23 03:37 12/10/23 16:03 12/10/23 11:20 Range/Units Blood Gas Specimen Type Arterial Blood Gas Sample Site Right radial Blood Gas Patient Temperature 37.0 Arterial Blood Date Drawn [id number] Arterial Blood pH 7.372 7.350-7.450 Arterial Blood Partial Pressure CO2 30.7 L 32.0-45.0 mmHg Arterial Blood Partial Pressure O2 87.0 83.0-108.0 mmHg Arterial Blood HCO3 17.4 L 21.0-28.0 mmol/L Arterial Blood Oxygen Saturation 95.7 94.0-98.0 % Arterial Blood Base Excess -7.0 L -2.0-3.0 mmol/L Arterial Blood Oxyhemoglobin 95.0 94.0-98.0 % Arterial Blood Carboxyhemoglobin 0.3 L 0.5-1.5 % Arterial Blood Methemoglobin 0.4 0.0-1.5 % Wallace Test Modified Blood Gas Total Hemoglobin 8.00 L 12.0-16.0 g/dL Blood Gas Set Respiration Rate 24.0 Blood Gas Modality Vent - ac FiO2 % 30.0 Blood Gas Tidal Volume 450.0 Blood Gas PEEP or CPAP 5.0 White Blood Count 6.8 # 4.4-10.8 10^3/uL Red Blood Count 2.22 L 4.0-5.20 10^6/uL Mean Corpuscular Volume 90.9 80.0-100.0 fL Mean Corpuscular Hemoglobin 29.5 28.0-32.0 pg Mean Corpuscular Hemoglobin Concent 32.4 32.0-36.0 g/dL Red Cell Distribution Width 15.9 H 11.8-14.3 % Platelet Count 338 140-450 10^3/uL Mean Platelet Volume 8.5 6.9-10.8 fL Neutrophils (%) (Auto) 37.0-80.0 % Lymphocytes (%) (Auto) 10.0-50.0 % Monocytes (%) (Auto) 0.0-12.0 % Basophils (%) (Auto) 0.0-2.0 % Neutrophils # (Auto) 1.6-8.6 10 ^3/uL Lymphocytes # (Auto) 0.4-5.4 10 ^3/uL Monocytes # (Auto) 0-1.3 10 ^3/uL Differential Total Cells Counted 100.0 100 Neutrophils % (Manual) 30 L 37.0-80.0 Band Neutrophils % (Manual) 8 Lymphocytes % (Manual) 35 10.0-50.0 Monocytes % (Manual) 4 0-12 Eosinophils % (Manual) 18 H 0-7 Basophils % (Manual) 0 0.0-2.0 Metamyelocytes % (manual) 0 Myelocytes % (Manual) 0 Promyelocytes % (Manual) 0 Blast Cells % (Manual) 0 Reactive Lymphocytes 5 Platelet Estimate Adequate Anisocytosis (manual) Slight Microcytosis Slight Ovalocytes Few Sodium Level 138 136-145 mmol/L Chloride Level 112 H 98-107 mmol/L Carbon Dioxide Level 19 L 20-30 mmol/L Anion Gap 7 5-15 Blood Urea Nitrogen 16 9-23 mg/dL Creatinine 1.47 H 0.550-1.02 mg/dL Glomerular Filtration Rate Calc 38 >90 mL/min BUN/Creatinine Ratio 10.9 10.0-20.0 Serum Glucose 159 H 74-106 mg/dL Calcium Level 8.5 L 8.7-10.4 mg/dL Total Bilirubin < 0.2 L 0.2-1.0 mg/dL Aspartate Amino Transferase (AST) 23 13-40 U/L Alanine Aminotransferase (ALT) 16 7-40 U/L Alkaline Phosphatase 199 H 46-116 U/L Total Protein 5.0 L 5.7-8.2 g/dL Albumin 2.7 L 3.2-4.8 g/dL HIV (1&2) Antibody Negative Negative Blood Gas Spontaneous Rate 21 Test 12/10/23 08:17 12/10/23 04:53 12/09/23 14:45 12/09/23 14:30 Range/Units Blood Gas Critical Value Read Back Y Blood Gas Notified Whom Dr. salgado Blood Gas Notified Time [id number] Blood Gas Notified By Jennifer bobo Smudge Cells 1 /100 WBC Large Platelets Few Giant Platelets Few Stomatocytes Few B-Type Natriuretic Peptide 405.67 0-100 pg/mL Influenza Type A Antigen Negative Negative Influenza Type B Antigen Negative Negative SARS-CoV-2 Antigen (Rapid) Negative NEGATIVE Test 12/09/23 09:46 12/09/23 09:28 12/09/23 06:57 12/09/23 04:04 Range/Units Blood Gas Inspiratory Pressure 15.0 Bl Gas Inspiratory/Expiratory Ratio 1:1.2 Specimen Drawn By rohit randall Triglycerides Level 136 < 150 mg/dL Cholesterol Level 96 < 200 mg/dL LDL Cholesterol 38 < 100 mg/dL HDL Cholesterol 32 L 40-59 mg/dL Vitamin B12 Level 2537 H 211-911 pg/mL Vitamin D 25-Hydroxy 28.5 L 30.0-100 ng/mL Thyroid Stimulating Hormone (TSH) 17.87 H 0.55-4.78 uIU/mL Blood Gas Comments increased fio2 to 40 Eosinophils (%) (Auto) 12.3 H 0.0-7.0 % Eosinophils # (Auto) 1.0 H 0-0.8 10 ^3/uL Basophils # (Auto) 0.1 0-0.2 10 ^3/uL Nucleated Red Blood Cells 0.1 % Test 12/08/23 20:00 12/08/23 19:00 Range/Units Prothrombin Time 11.4 9.3-11.8 sec Prothrombin Time INR 1.08 0.9-1.15 Urine Color Yellow Yellow Urine Clarity Clear Clear Urine pH 6.5 5.0-9.0 Urine Specific [place] 1.021 1.001-1.035 Urine Protein 1+ H Negative Urine Ketones Negative Negative Urine Blood 2+ H Negative /uL Urine Nitrite Negative Negative Urine Bilirubin Negative Negative Urine Urobilinogen Normal Negative mg/dL Urine Leukocyte Esterase 3+ Negative /uL Urine RBC 4 0 - 4 /hpf Urine WBC 93 0 - 5 /hpf Urine WBC Clumps Present None Seen /hpf Urine Squamous Epithelial Cells Few <5 /hpf Urine Bacteria Few H None Seen /hpf Urine Glucose Trace Normal mg/dL Microbiology Date/Time Source Procedure Growth Status 12/09/23 09:28 Blood Blood Culture - Preliminary NO GROWTH AFTER 48 HOURS OF INCUBATION. Resulted 12/08/23 19:00 Nose MRSA Screen - Final Complete 12/08/23 19:00 Urine - Catheterized Urine Culture - Final Complete 12/08/23 19:00 Sputum Gram Stain - Final Complete 12/08/23 19:00 Sputum Respiratory Culture - Final Complete Assessment 68-year-old with diabetes hypertension hypothyroidism with stroke as well as possible possible brain Mets also respiratory failure now with a pneumonia UTI possible liver cirrhosis and kidney failure Patient is needing PEG tube placement as well as tracheostomy and hence the reason for the GI consult for PEG tube placement Plan/Recommendation We will arrange for the PEG tube placement the family is agreeable for the procedure we will arrange for the same Her overall prognosis is extremely guarded Plan discussed with: Other CEFERINO GODWIN MD Dec 11, 2023 20:05
[2023-12-11 20:07] LABS: Potassium 3.8 mmol/L (3.5-5.1)
[2023-12-11 20:14] LABS: Magnesium 1.9 mg/dL (1.6-2.6)
[2023-12-11 20:15] LABS: Phosphorus 3.7 mg/dL (2.4-5.1)
--- NOTE | 2023-12-11 20:25 | DVHINCON2 ---
Date of service: Dec 11, [address] Cobb Reason for Consultation Acute kidney injury History of Present Illness Patient is 68 y/o female with PMH of Diabetes, hypertension, hypothyroidism, COPD, diabetic polyneuropathy,Metabolic encephalopathy CVA, pneumonia, YULIANA and UTI, liver cirrhosis.who was seen at [facility] [place] and respiratory failure. Patient transferred from [facility] intubated on ventilator. Nephrology is consulted for acute kidney injury Past Medical History Diabetes, hypertension, hypothyroidism, obesity, COPD, diabetic polyneuropathy,Metabolic encephalopathy probably secondary to sepsis versus brain metastasis/infection/stroke associated with acute respiratory failure due to aspiration pneumonia, YULIANA and UTI, liver cirrhosis.t . Past Surgical History Multiple admissions for DKA and surgical history 3 hip replacement, right knee replacemen Allergies: Coded Allergies: NO KNOWN ALLERGIES (Unverified , 10/26/12) Home Meds Active Scripts Glipizide (Glipizide) 10 Mg Tab, 1 TAB PO DAILY for 30 Days, #30 TAB 5 Refills Prov:MIRACLE SALGADO RESIDENT 10/12/23 Amoxicillin & Pot Clavulanate (Augmentin) 500 Mg Tab, 1 TAB PO BID for 10 Days, #20 TAB Prov:MIRACLE SALGADO RESIDENT 10/12/23 Cyanocobalamin (B-12) 1,000 Mcg Delbert, 1000 MCG PO DAILY for 30 Days, #30 DELBERT Prov:MIRACLE SALGADO RESIDENT 10/12/23 Ergocalciferol (VITAMIN D 84325 UNIT) 50,000 [place], [address] UNIT PO Q7D for 30 Days, #10 CAP Prov:MIRACLE SALGADO RESIDENT 10/12/23 Acetaminophen (Acetaminophen) 325 Mg Tab, 650 MG PO Q6HP PRN for 10 Days, #80 TAB Prov:IMRACLE SALGADO RESIDENT 10/12/23 Insulin Aspart (Insulin Aspart) 100 Unit/Ml Inj, 100 UNIT SC TIDWM for 30 Days, #1 INJ 4 Refills insulin per sliding scale qac tid 150-200: 2 units 201-250: 4 units 251-300: 8 units' 301-350: 12 units 351-400: 15 units >400 call doctor Prov:FREEDOM RAZO MD 05/26/23 Insulin Glargine (Lantus) 100 Unit/Ml Inj, 20 UNIT SC QPM for 30 Days, #1 INJ 3 Refills Prov:FREEDOM RAZO MD 05/26/23 Reported Medications Atorvastatin Calcium (ATORVASTATIN CALCIUM) 20 Mg Tab, 20 MG PO DAILY, TAB 10/08/23 Lisinopril (Lisinopril) 10 Mg Tab, 10 MG PO DAILY, MG 10/08/23 Pregabalin (Pregabalin) 150 Mg Cap, 150 MG PO BID, CAP 10/08/23 Pramipexole Dihydrochloride (Pramipexole Dihydrochlori) 0.75 Mg Tab, 0.75 MG PO TID, TAB 10/08/23 Levothyroxine Sodium (Levothyroxine Sodium) 150 Mcg Tab, 150 MCG PO QAM for 30 Days 08/12/17 Current Medications Current Medications Medications (Trade) Dose Ordered Sig/Leslie Route PRN Reason Start Time Stop Time Status Last Admin Dextrose 1,000 ml @ 125 mls/hr Q8H IV 12/11/23 17:15 12/12/23 05:45 Magnesium Sulfate/ Dextrose 100 ml @ 100 mls/hr Q1HR IV 12/11/23 21:00 12/11/23 22:59 DC 12/11/23 22:07 Family History: Patient reports no known family medical history. Review of Systems Can not be obtained due to calculate intubation H&P Exam Vital Signs/I&O Vital Sign Date Time Temp Pulse Resp B/P (MAP) Pulse Ox O2 Delivery O2 Flow Rate FiO2 12/12/23 12:28 66 24 100/35 (56) 98 30 12/12/23 10:45 97.9 208.2 12/12/23 08:00 Mechanical Ventilator+ Intake and Output 12/11/23 12/12/23 19:00 07:00 Intake Total 1988 ml 2403 ml Output Total 2350 ml 750 ml Balance -362 ml 1653 ml Intake Oral 0 ml 0 ml IV Total 1688 ml 2403 ml Blood Product 300 ml Output Urine Total 2350 ml 750 ml Physical Exam Patient intubated on ventilator and sedated Lungs clear to auscultation bilaterally Cardiac exam regular rate and rhythm GI soft nontender Jones catheter Extremities no clubbing cyanosis or edema Neuro patient is today Labs/Diagnostic Data Labs/Diagnostic Data Laboratory Tests Test 12/12/23 12:07 12/12/23 10:13 12/12/23 07:10 12/12/23 05:41 Range/Units POC Glucose 183 H 245 H 70-106 mg/dl Reticulocyte Count (auto) 2.08 H 0.5-1.5 % Iron Level 18 L 50-170 ug/dL Total Iron Binding Capacity 184 L 250-425 ug/dL Percent Iron Saturation 9.8 L 15-50 % Lactate Dehydrogenase 233 120-246 U/L Blood Gas Specimen Type Arterial Blood Gas Sample Site Left radial Blood Gas Patient Temperature 37.0 Arterial Blood Date Drawn [id number] Arterial Blood pH 7.310 L 7.350-7.450 Arterial Blood Partial Pressure CO2 35.0 32.0-45.0 mmHg Arterial Blood Partial Pressure O2 89.8 83.0-108.0 mmHg Arterial Blood HCO3 17.2 L 21.0-28.0 mmol/L Arterial Blood Oxygen Saturation 95.7 94.0-98.0 % Arterial Blood Base Excess -8.2 L -2.0-3.0 mmol/L Arterial Blood Oxyhemoglobin 95.2 94.0-98.0 % Arterial Blood Carboxyhemoglobin 0.3 L 0.5-1.5 % Arterial Blood Methemoglobin 0.2 0.0-1.5 % Wallace Test Yes Blood Gas Total Hemoglobin 8.60 L 12.0-16.0 g/dL Blood Gas Set Respiration Rate 24.0 Blood Gas Modality Vent - ac FiO2 % 30.0 Blood Gas Tidal Volume 450.0 Blood Gas PEEP or CPAP 5.0 Test 12/12/23 03:36 12/11/23 23:57 12/11/23 22:02 12/11/23 19:48 Range/Units White Blood Count 6.4 4.4-10.8 10^3/uL Red Blood Count 2.49 L 4.0-5.20 10^6/uL Hemoglobin 7.5 L 12.2-16.2 g/dL Hematocrit 22.5 L 36.0-46.0 % Mean Corpuscular Volume 90.3 80.0-100.0 fL Mean Corpuscular Hemoglobin 30.1 28.0-32.0 pg Mean Corpuscular Hemoglobin Concent 33.3 32.0-36.0 g/dL Red Cell Distribution Width 16.1 H 11.8-14.3 % Platelet Count 320 140-450 10^3/uL Mean Platelet Volume 8.7 6.9-10.8 fL Neutrophils (%) (Auto) 53.8 37.0-80.0 % Lymphocytes (%) (Auto) 23.2 10.0-50.0 % Monocytes (%) (Auto) 3.4 0.0-12.0 % Eosinophils (%) (Auto) 18.1 H 0.0-7.0 % Basophils (%) (Auto) 1.5 0.0-2.0 % Neutrophils # (Auto) 3.4 1.6-8.6 10 ^3/uL Lymphocytes # (Auto) 1.5 0.4-5.4 10 ^3/uL Monocytes # (Auto) 0.2 0-1.3 10 ^3/uL Eosinophils # (Auto) 1.2 H 0-0.8 10 ^3/uL Basophils # (Auto) 0.1 0-0.2 10 ^3/uL Nucleated Red Blood Cells 0.2 % Sodium Level 134 L 136-145 mmol/L Potassium Level 3.8 3.8 3.5-5.1 mmol/L Chloride Level 109 H 98-107 mmol/L Carbon Dioxide Level 19 L 20-30 mmol/L Anion Gap 6 5-15 Blood Urea Nitrogen 15 9-23 mg/dL Creatinine 1.43 H 0.550-1.02 mg/dL Glomerular Filtration Rate Calc 40 >90 mL/min BUN/Creatinine Ratio 10.5 10.0-20.0 Serum Glucose 271 H 74-106 mg/dL Calcium Level 8.3 L 8.7-10.4 mg/dL Magnesium Level 2.3 1.9 1.6-2.6 mg/dL Total Bilirubin < 0.2 L 0.2-1.0 mg/dL Aspartate Amino Transferase (AST) 22 13-40 U/L Alanine Aminotransferase (ALT) 17 7-40 U/L Alkaline Phosphatase 184 H 46-116 U/L Total Protein 4.8 L 5.7-8.2 g/dL Albumin 2.5 L 3.2-4.8 g/dL Random Vancomycin Level 27.6 H 10-20 ug/mL POC Glucose 245 H 70-106 mg/dl Urine Color Light-yellow Yellow Urine Clarity Clear Clear Urine pH 6.0 5.0-9.0 Urine Specific [place] 1.010 1.001-1.035 Urine Protein Trace H Negative Urine Ketones Negative Negative Urine Blood 2+ H Negative /uL Urine Nitrite Negative Negative Urine Bilirubin Negative Negative Urine Urobilinogen Normal Negative mg/dL Urine Leukocyte Esterase 3+ Negative /uL Urine RBC 27 0 - 4 /hpf Urine WBC 90 0 - 5 /hpf Urine Squamous Epithelial Cells Few <5 /hpf Urine Bacteria Few H None Seen /hpf Urine Creatinine 21.88 L 30.0-125.0 mg/dL Urine Protein/Creatinine Ratio 2.01 Urine Sodium 40 40-220 mmol/L Urine Glucose Normal Normal mg/dL Urine Total Protein 43.9 H 0.0-11.9 mg/dL Urine Opiates Screen Neg NEGATIVE Urine Fentanyl Screen Pos NEGATIVE Urine Barbiturates Screen Neg NEGATIVE Urine Phencyclidine Screen Neg NEGATIVE Urine Amphetamines Screen Neg NEGATIVE Urine Benzodiazepines Screen Pos NEGATIVE Urine Cocaine Screen Neg NEGATIVE Urine Cannabinoids Screen Neg NEGATIVE Phosphorus Level 3.7 2.4-5.1 mg/dL Test 12/11/23 18:11 12/11/23 16:24 12/11/23 12:59 12/11/23 11:30 Range/Units POC Glucose 188 H 200 H 70-106 mg/dl Hemoglobin 7.8 #L 12.2-16.2 g/dL Hematocrit 23.8 #L 36.0-46.0 % Vancomycin Level Trough 32.2 *H 10-20 ug/mL Test 12/11/23 07:05 12/11/23 05:58 12/11/23 05:30 12/11/23 03:37 Range/Units Blood Gas Specimen Type Arterial Blood Gas Sample Site Right radial Blood Gas Patient Temperature 37.0 Arterial Blood Date Drawn [id number] Arterial Blood pH 7.372 7.350-7.450 Arterial Blood Partial Pressure CO2 30.7 L 32.0-45.0 mmHg Arterial Blood Partial Pressure O2 87.0 83.0-108.0 mmHg Arterial Blood HCO3 17.4 L 21.0-28.0 mmol/L Arterial Blood Oxygen Saturation 95.7 94.0-98.0 % Arterial Blood Base Excess -7.0 L -2.0-3.0 mmol/L Arterial Blood Oxyhemoglobin 95.0 94.0-98.0 % Arterial Blood Carboxyhemoglobin 0.3 L 0.5-1.5 % Arterial Blood Methemoglobin 0.4 0.0-1.5 % Wallace Test Modified Blood Gas Total Hemoglobin 8.00 L 12.0-16.0 g/dL Blood Gas Set Respiration Rate 24.0 Blood Gas Modality Vent - ac FiO2 % 30.0 Blood Gas Tidal Volume 450.0 Blood Gas PEEP or CPAP 5.0 POC Glucose 160 H 70-106 mg/dl White Blood Count 6.8 # 4.4-10.8 10^3/uL Red Blood Count 2.22 L 4.0-5.20 10^6/uL Hemoglobin 6.6 #*L 12.2-16.2 g/dL Hematocrit 20.2 #L 36.0-46.0 % Mean Corpuscular Volume 90.9 80.0-100.0 fL Mean Corpuscular Hemoglobin 29.5 28.0-32.0 pg Mean Corpuscular Hemoglobin Concent 32.4 32.0-36.0 g/dL Red Cell Distribution Width 15.9 H 11.8-14.3 % Platelet Count 338 140-450 10^3/uL Mean Platelet Volume 8.5 6.9-10.8 fL Neutrophils (%) (Auto) 37.0-80.0 % Lymphocytes (%) (Auto) 10.0-50.0 % Monocytes (%) (Auto) 0.0-12.0 % Basophils (%) (Auto) 0.0-2.0 % Neutrophils # (Auto) 1.6-8.6 10 ^3/uL Lymphocytes # (Auto) 0.4-5.4 10 ^3/uL Monocytes # (Auto) 0-1.3 10 ^3/uL Differential Total Cells Counted 100.0 100 Neutrophils % (Manual) 30 L 37.0-80.0 Band Neutrophils % (Manual) 8 Lymphocytes % (Manual) 35 10.0-50.0 Monocytes % (Manual) 4 0-12 Eosinophils % (Manual) 18 H 0-7 Basophils % (Manual) 0 0.0-2.0 Metamyelocytes % (manual) 0 Myelocytes % (Manual) 0 Promyelocytes % (Manual) 0 Blast Cells % (Manual) 0 Reactive Lymphocytes 5 Platelet Estimate Adequate Anisocytosis (manual) Slight Microcytosis Slight Ovalocytes Few Sodium Level 138 136-145 mmol/L Potassium Level 3.5 3.5-5.1 mmol/L Chloride Level 112 H 98-107 mmol/L Carbon Dioxide Level 19 L 20-30 mmol/L Anion Gap 7 5-15 Blood Urea Nitrogen 16 9-23 mg/dL Creatinine 1.47 H 0.550-1.02 mg/dL Glomerular Filtration Rate Calc 38 >90 mL/min BUN/Creatinine Ratio 10.9 10.0-20.0 Serum Glucose 159 H 74-106 mg/dL Calcium Level 8.5 L 8.7-10.4 mg/dL Phosphorus Level 3.6 2.4-5.1 mg/dL Magnesium Level 1.5 L 1.6-2.6 mg/dL Total Bilirubin < 0.2 L 0.2-1.0 mg/dL Aspartate Amino Transferase (AST) 23 13-40 U/L Alanine Aminotransferase (ALT) 16 7-40 U/L Alkaline Phosphatase 199 H 46-116 U/L Total Protein 5.0 L 5.7-8.2 g/dL Albumin 2.7 L 3.2-4.8 g/dL Test 12/11/23 00:20 12/10/23 18:07 12/10/23 16:03 12/10/23 12:39 Range/Units POC Glucose 168 H 172 H 122 H 70-106 mg/dl HIV (1&2) Antibody Negative Negative Test 12/10/23 11:20 12/10/23 08:17 12/10/23 05:48 12/10/23 04:53 Range/Units Blood Gas Specimen Type Arterial Arterial Blood Gas Sample Site Right radial Right radial Blood Gas Patient Temperature 37.0 37.0 Arterial Blood Date Drawn [id number] Arterial Blood pH 7.265 L 7.184 *L 7.350-7.450 Arterial Blood Partial Pressure CO2 43.9 50.3 H 32.0-45.0 mmHg Arterial Blood Partial Pressure O2 90.6 88.4 83.0-108.0 mmHg Arterial Blood HCO3 19.5 L 18.5 L 21.0-28.0 mmol/L Arterial Blood Oxygen Saturation 96.1 95.0 94.0-98.0 % Arterial Blood Base Excess -7.0 L -9.4 L -2.0-3.0 mmol/L Arterial Blood Oxyhemoglobin 95.6 94.6 94.0-98.0 % Arterial Blood Carboxyhemoglobin 0.3 L 0.3 L 0.5-1.5 % Arterial Blood Methemoglobin 0.2 0.1 0.0-1.5 % Wallace Test Modified Modified Blood Gas Total Hemoglobin 7.60 L 9.40 L 12.0-16.0 g/dL Blood Gas Set Respiration Rate 20.0 18.0 Blood Gas Modality Vent - ac Vent - ac Blood Gas Spontaneous Rate 21 18 FiO2 % 30.0 35.0 Blood Gas Tidal Volume 450.0 400.0 Blood Gas PEEP or CPAP 5.0 5.0 Blood Gas Critical Value Read Back Y Blood Gas Notified Whom Dr. salgado Blood Gas Notified Time [id number] Blood Gas Notified By [facility] POC Glucose 201 H 70-106 mg/dl White Blood Count 15.7 #H 4.4-10.8 10^3/uL Red Blood Count 2.76 L 4.0-5.20 10^6/uL Hemoglobin 8.3 L 12.2-16.2 g/dL Hematocrit 26.0 #L 36.0-46.0 % Mean Corpuscular Volume 94.4 80.0-100.0 fL Mean Corpuscular Hemoglobin 30.0 28.0-32.0 pg Mean Corpuscular Hemoglobin Concent 31.8 L 32.0-36.0 g/dL Red Cell Distribution Width 16.5 H 11.8-14.3 % Platelet Count 518 H 140-450 10^3/uL Mean Platelet Volume 8.7 6.9-10.8 fL Neutrophils (%) (Auto) 37.0-80.0 % Lymphocytes (%) (Auto) 10.0-50.0 % Monocytes (%) (Auto) 0.0-12.0 % Basophils (%) (Auto) 0.0-2.0 % Neutrophils # (Auto) 1.6-8.6 10 ^3/uL Lymphocytes # (Auto) 0.4-5.4 10 ^3/uL Monocytes # (Auto) 0-1.3 10 ^3/uL Differential Total Cells Counted 100.0 100 Neutrophils % (Manual) 83 H 37.0-80.0 Band Neutrophils % (Manual) 0 Lymphocytes % (Manual) 12 10.0-50.0 Monocytes % (Manual) 4 0-12 Eosinophils % (Manual) 1 0-7 Basophils % (Manual) 0 0.0-2.0 Metamyelocytes % (manual) 0 Myelocytes % (Manual) 0 Promyelocytes % (Manual) 0 Blast Cells % (Manual) 0 Reactive Lymphocytes 0 Smudge Cells 1 /100 WBC Platelet Estimate Increased Large Platelets Few Giant Platelets Few Ovalocytes Few Stomatocytes Few Sodium Level 139 # 136-145 mmol/L Potassium Level 4.8 3.5-5.1 mmol/L Chloride Level 112 H 98-107 mmol/L Carbon Dioxide Level 22 20-30 mmol/L Anion Gap 5 5-15 Blood Urea Nitrogen 15 9-23 mg/dL Creatinine 1.37 #H 0.550-1.02 mg/dL Glomerular Filtration Rate Calc 42 >90 mL/min BUN/Creatinine Ratio 10.9 10.0-20.0 Serum Glucose 216 H 74-106 mg/dL Calcium Level 9.0 8.7-10.4 mg/dL Phosphorus Level 4.4 2.4-5.1 mg/dL Magnesium Level 1.7 1.6-2.6 mg/dL Total Bilirubin < 0.2 L 0.2-1.0 mg/dL Aspartate Amino Transferase (AST) 32 13-40 U/L Alanine Aminotransferase (ALT) 23 7-40 U/L Alkaline Phosphatase 278 H 46-116 U/L B-Type Natriuretic Peptide 405.67 0-100 pg/mL Total Protein 6.5 5.7-8.2 g/dL Albumin 3.6 3.2-4.8 g/dL Test 12/10/23 00:27 12/09/23 18:25 12/09/23 18:00 12/09/23 14:45 Range/Units POC Glucose 176 H 169 H 70-106 mg/dl Potassium Level 3.2 L 3.5-5.1 mmol/L Influenza Type A Antigen Negative Negative Influenza Type B Antigen Negative Negative Test 12/09/23 14:30 12/09/23 12:30 12/09/23 09:46 12/09/23 09:28 Range/Units SARS-CoV-2 Antigen (Rapid) Negative NEGATIVE POC Glucose 169 H 70-106 mg/dl Blood Gas Specimen Type Arterial Blood Gas Sample Site Left radial Blood Gas Patient Temperature 37.0 Arterial Blood Date Drawn [id number] Arterial Blood pH 7.346 L 7.350-7.450 Arterial Blood Partial Pressure CO2 33.9 32.0-45.0 mmHg Arterial Blood Partial Pressure O2 95.7 83.0-108.0 mmHg Arterial Blood HCO3 18.1 L 21.0-28.0 mmol/L Arterial Blood Oxygen Saturation 96.0 94.0-98.0 % Arterial Blood Base Excess -6.8 L -2.0-3.0 mmol/L Arterial Blood Oxyhemoglobin 95.4 94.0-98.0 % Arterial Blood Carboxyhemoglobin 0.3 L 0.5-1.5 % Arterial Blood Methemoglobin 0.3 0.0-1.5 % Wallace Test Modified Blood Gas Total Hemoglobin 9.30 L 12.0-16.0 g/dL Blood Gas Set Respiration Rate 18.0 Blood Gas Modality Vent - ac Blood Gas Spontaneous Rate 20 FiO2 % 30.0 Blood Gas Tidal Volume 400.0 Blood Gas Inspiratory Pressure 15.0 Blood Gas PEEP or CPAP 5.0 Bl Gas Inspiratory/Expiratory Ratio 1:1.2 Specimen Drawn By rohit randall Serum Glucose 140 H 74-106 mg/dL Phosphorus Level 3.2 2.4-5.1 mg/dL Triglycerides Level 136 < 150 mg/dL Cholesterol Level 96 < 200 mg/dL LDL Cholesterol 38 < 100 mg/dL HDL Cholesterol 32 L 40-59 mg/dL Vitamin B12 Level 2537 H 211-911 pg/mL Vitamin D 25-Hydroxy 28.5 L 30.0-100 ng/mL Thyroid Stimulating Hormone (TSH) 17.87 H 0.55-4.78 uIU/mL Test 12/09/23 06:57 12/09/23 06:26 12/09/23 04:04 12/09/23 01:11 Range/Units Blood Gas Specimen Type Arterial Blood Gas Sample Site Left radial Blood Gas Patient Temperature 37.0 Arterial Blood Date Drawn [id number] Arterial Blood pH 7.278 L 7.350-7.450 Arterial Blood Partial Pressure CO2 44.8 32.0-45.0 mmHg Arterial Blood Partial Pressure O2 58.7 L 83.0-108.0 mmHg Arterial Blood HCO3 20.5 L 21.0-28.0 mmol/L Arterial Blood Oxygen Saturation 84.2 *L 94.0-98.0 % Arterial Blood Base Excess -6.0 L -2.0-3.0 mmol/L Arterial Blood Oxyhemoglobin 83.9 L 94.0-98.0 % Arterial Blood Carboxyhemoglobin 0.1 L 0.5-1.5 % Arterial Blood Methemoglobin 0.2 0.0-1.5 % Wallace Test Modified Blood Gas Total Hemoglobin 10.50 L 12.0-16.0 g/dL Blood Gas Set Respiration Rate 18.0 Blood Gas Modality Vent - ac Blood Gas Spontaneous Rate 30 FiO2 % 30.0 Blood Gas Tidal Volume 400.0 Blood Gas Inspiratory Pressure 14.0 Blood Gas PEEP or CPAP 5.0 Bl Gas Inspiratory/Expiratory Ratio 1:1.2 Specimen Drawn By rohit randall Blood Gas Comments increased fio2 to 40 Blood Gas Critical Value Read Back yes Blood Gas Notified Whom nick daniels Blood Gas Notified Time [id number] Blood Gas Notified By rohit randall POC Glucose 104 129 H 70-106 mg/dl White Blood Count 8.5 4.4-10.8 10^3/uL Red Blood Count 2.50 L 4.0-5.20 10^6/uL Hemoglobin 7.4 L 12.2-16.2 g/dL Hematocrit 23.1 L 36.0-46.0 % Mean Corpuscular Volume 92.4 80.0-100.0 fL Mean Corpuscular Hemoglobin 29.5 28.0-32.0 pg Mean Corpuscular Hemoglobin Concent 31.9 L 32.0-36.0 g/dL Red Cell Distribution Width 16.0 H 11.8-14.3 % Platelet Count 350 140-450 10^3/uL Mean Platelet Volume 9.2 6.9-10.8 fL Neutrophils (%) (Auto) 56.8 37.0-80.0 % Lymphocytes (%) (Auto) 23.7 10.0-50.0 % Monocytes (%) (Auto) 6.5 0.0-12.0 % Eosinophils (%) (Auto) 12.3 H 0.0-7.0 % Basophils (%) (Auto) 0.7 0.0-2.0 % Neutrophils # (Auto) 4.8 1.6-8.6 10 ^3/uL Lymphocytes # (Auto) 2.0 0.4-5.4 10 ^3/uL Monocytes # (Auto) 0.6 0-1.3 10 ^3/uL Eosinophils # (Auto) 1.0 H 0-0.8 10 ^3/uL Basophils # (Auto) 0.1 0-0.2 10 ^3/uL Nucleated Red Blood Cells 0.1 % Sodium Level 146 H 136-145 mmol/L Potassium Level 3.4 L 3.5-5.1 mmol/L Chloride Level 116 H 98-107 mmol/L Carbon Dioxide Level 22 20-30 mmol/L Anion Gap 8 5-15 Blood Urea Nitrogen 11 9-23 mg/dL Creatinine 0.94 0.550-1.02 mg/dL Glomerular Filtration Rate Calc 66 >90 mL/min BUN/Creatinine Ratio 11.7 10.0-20.0 Serum Glucose 122 H 74-106 mg/dL Calcium Level 8.9 8.7-10.4 mg/dL Magnesium Level 1.9 1.6-2.6 mg/dL Total Bilirubin < 0.2 L 0.2-1.0 mg/dL Aspartate Amino Transferase (AST) 40 13-40 U/L Alanine Aminotransferase (ALT) 21 7-40 U/L Alkaline Phosphatase 278 H 46-116 U/L Total Protein 5.5 L 5.7-8.2 g/dL Albumin 3.0 L 3.2-4.8 g/dL Test 12/08/23 23:02 12/08/23 20:00 12/08/23 19:49 12/08/23 19:10 Range/Units POC Glucose 59 L 76 70-106 mg/dl White Blood Count 7.8 4.4-10.8 10^3/uL Red Blood Count 2.47 L 4.0-5.20 10^6/uL Hemoglobin 7.2 L 12.2-16.2 g/dL Hematocrit 22.5 L 36.0-46.0 % Mean Corpuscular Volume 91.0 80.0-100.0 fL Mean Corpuscular Hemoglobin 29.1 28.0-32.0 pg Mean Corpuscular Hemoglobin Concent 32.0 32.0-36.0 g/dL Red Cell Distribution Width 16.0 H 11.8-14.3 % Platelet Count 375 140-450 10^3/uL Mean Platelet Volume 9.0 6.9-10.8 fL Neutrophils (%) (Auto) 61.0 37.0-80.0 % Lymphocytes (%) (Auto) 20.3 10.0-50.0 % Monocytes (%) (Auto) 7.1 0.0-12.0 % Eosinophils (%) (Auto) 11.1 H 0.0-7.0 % Basophils (%) (Auto) 0.5 0.0-2.0 % Neutrophils # (Auto) 4.7 1.6-8.6 10 ^3/uL Lymphocytes # (Auto) 1.6 0.4-5.4 10 ^3/uL Monocytes # (Auto) 0.6 0-1.3 10 ^3/uL Eosinophils # (Auto) 0.9 H 0-0.8 10 ^3/uL Basophils # (Auto) 0 0-0.2 10 ^3/uL Nucleated Red Blood Cells 0.2 % Prothrombin Time 11.4 9.3-11.8 sec Prothrombin Time INR 1.08 0.9-1.15 Sodium Level 147 H 136-145 mmol/L Potassium Level 3.3 L 3.5-5.1 mmol/L Chloride Level 117 H 98-107 mmol/L Carbon Dioxide Level 23 20-30 mmol/L Anion Gap 7 5-15 Blood Urea Nitrogen 12 9-23 mg/dL Creatinine 0.97 0.550-1.02 mg/dL Glomerular Filtration Rate Calc 63 >90 mL/min BUN/Creatinine Ratio 12.4 10.0-20.0 Serum Glucose 76 74-106 mg/dL Calcium Level 9.0 8.7-10.4 mg/dL Magnesium Level 1.9 1.6-2.6 mg/dL Total Bilirubin < 0.2 L 0.2-1.0 mg/dL Aspartate Amino Transferase (AST) 46 H 13-40 U/L Alanine Aminotransferase (ALT) 25 7-40 U/L Alkaline Phosphatase 293 H 46-116 U/L Total Protein 5.5 L 5.7-8.2 g/dL Albumin 3.1 L 3.2-4.8 g/dL Blood Gas Specimen Type Arterial Blood Gas Sample Site Left radial Blood Gas Patient Temperature 37.0 Arterial Blood Date Drawn [id number] Arterial Blood pH 7.473 H 7.350-7.450 Arterial Blood Partial Pressure CO2 29.4 L 32.0-45.0 mmHg Arterial Blood Partial Pressure O2 87.1 83.0-108.0 mmHg Arterial Blood HCO3 21.1 21.0-28.0 mmol/L Arterial Blood Oxygen Saturation 95.8 94.0-98.0 % Arterial Blood Base Excess -2.1 L -2.0-3.0 mmol/L Arterial Blood Oxyhemoglobin 95.4 94.0-98.0 % Arterial Blood Carboxyhemoglobin 0.1 L 0.5-1.5 % Arterial Blood Methemoglobin 0.3 0.0-1.5 % Wallace Test Yes Blood Gas Total Hemoglobin 7.70 L 12.0-16.0 g/dL Blood Gas Set Respiration Rate 24.0 Blood Gas Modality Vent - ac FiO2 % 30.0 Blood Gas Tidal Volume 400.0 Blood Gas PEEP or CPAP 5.0 Specimen Drawn By Jyoti valencia refinery operator assistant Test 12/08/23 19:00 Range/Units Urine Color Yellow Yellow Urine Clarity Clear Clear Urine pH 6.5 5.0-9.0 Urine Specific [place] 1.021 1.001-1.035 Urine Protein 1+ H Negative Urine Ketones Negative Negative Urine Blood 2+ H Negative /uL Urine Nitrite Negative Negative Urine Bilirubin Negative Negative Urine Urobilinogen Normal Negative mg/dL Urine Leukocyte Esterase 3+ Negative /uL Urine RBC 4 0 - 4 /hpf Urine WBC 93 0 - 5 /hpf Urine WBC Clumps Present None Seen /hpf Urine Squamous Epithelial Cells Few <5 /hpf Urine Bacteria Few H None Seen /hpf Urine Glucose Trace Normal mg/dL Microbiology Date/Time Source Procedure Growth Status 12/08/23 19:00 Nose MRSA Screen - Final Complete 12/08/23 19:00 Urine - Catheterized Urine Culture - Final Complete 12/08/23 19:00 Sputum Gram Stain - Final Complete 12/08/23 19:00 Sputum Respiratory Culture - Final Complete Assessment YULIANA superimposed on CKD secondary to hemodynamic mediated Acute respiratory failure, intubated on ventilator DM type II Chronic diastolic HF Sepsis UTI Hypokalemia Hypomagnesemia Dropping hemoglobin GI bleeding REC: Close monitoring of fluids and lytes Avoid nephrotoxins Jones's catheter Strict I&O's KCl replacement Magnesium sulfat IVPB IV Abx Insulin SS PRBC transfusion prn GI consult Will continue to follow Patient seen and examined by myself ICU bed five. I discussed my plan of care with the primary nurse at the bedside I would like to thank for the consult, will follow Plan discussed with: Other (Nurse) JOANNA OROZCO MD Dec 11, 2023 20:25
--- NOTE | 2023-12-11 20:38 | DVHPN2 ---
Progress Note - Dictate Date Seen: Dec 11, 2023 Medical Necessity Reason Pt with a Central, PICC or Fol: Yes The following are medically ne: PICC Line, Jones Catheter Subjective Covering Dr. Benitez Patient seen and examined at bedside. Sedated, intubated on mechanical ventilator. Overnight events reviewed. vital signs Vital Sign Date Time Temp Pulse Resp B/P (MAP) Pulse Ox O2 Delivery O2 Flow Rate FiO2 12/11/23 20:00 70 24 110/43 (65) 96 30 12/11/23 18:45 98.4 209.1 12/11/23 08:00 Mechanical Ventilator+ Total Intake and Output 12/10/23 12/10/23 12/11/23 15:00 23:00 07:00 Intake Total 1003.25 ml 1307.937 ml 1072.00 ml Output Total 1000 ml 900 ml Balance 1003.25 ml 307.937 ml 172.00 ml medications Current Medications Medications Dose Ordered Sig/Leslie Route Start Time Stop Time Status Last Admin Dose Admin Albuterol 2.5 mg Q4HR PRN NEB 12/08/23 19:30 12/11/23 19:16 2.5 MG Ipratropium [place] 0.5 mg Q4HR NEB 12/08/23 22:00 12/11/23 19:16 0.5 MG Ondansetron HCl 4 mg Q4HP PRN IV 12/08/23 19:30 Pantoprazole Sodium 40 mg DAILY IV 12/09/23 10:00 12/11/23 09:41 40 MG Fentanyl Citrate 250 ml @ 2.5 mls/hr Q24H IV 12/08/23 20:30 12/11/23 15:58 35 MLS/HR Hydralazine HCl 10 mg Q4HP PRN IV 12/09/23 05:30 12/09/23 05:50 10 MG Norepinephrine Bitartrate 250 ml @ 3.75 mls/hr Q24H IV 12/09/23 08:15 12/09/23 08:00 3.75 MLS/HR Midazolam HCl 50 ml @ 5 mls/hr Q10H IV 12/09/23 09:00 12/11/23 17:26 14 MLS/HR Sodium Chloride 10 ml QSHIFT@,22 IV 12/09/23 22:00 12/11/23 09:42 10 ML Diagnostic Test (Pha) 1 strip Q6HR 12/09/23 18:00 12/11/23 18:12 1 STRIP Insulin Human Regular Q6HR SC 12/09/23 18:00 12/11/23 18:14 3 UNITS Dextrose 50 ml UD PRN IV 12/09/23 16:15 Vancomycin HCl 0 ml @ 0 mls/hr UD IV 12/09/23 19:00 Fluconazole 100 ml @ 100 mls/hr 10,11 IV 12/10/23 10:00 12/11/23 10:37 100 MLS/HR Enoxaparin Sodium 70 mg Q12HR SC 12/09/23 22:00 12/11/23 09:42 70 MG Acetaminophen 650 mg Q6HP PRN [place] 12/10/23 01:30 12/10/23 02:02 650 MG Cefepime HCl 50 ml @ 12.5 mls/hr Q12HR IV 12/10/23 14:45 12/11/23 11:39 12.5 MLS/HR Enteral Nutritional Formula 1,000 ml 30ML/HR GT 12/10/23 16:45 Dextrose 1,000 ml @ 125 mls/hr Q8H IV 12/11/23 17:15 Magnesium Sulfate/ Dextrose 100 ml @ 100 mls/hr Q1HR IV 12/11/23 21:00 12/11/23 22:59 objective Gen.: Patient lying in bed in medical ICU. Sedated, intubated on mechanical ventilator. Head: Normocephalic, atraumatic. Eyes: PERRLA. Ears: Normal external anatomy. Throat: Endotracheal tube and orogastric tube in place. Neck: Supple, trachea midline. Chest: Transmitted breath sounds bilaterally. Decreased air entry bilaterally. No wheezing. Bibasilar crackles. Cardiovascular: Positive S1, positive S2. Regular rate and rhythm. Abdomen: Positive bowel sounds in all 4 quadrants. Soft, nontender, nondistended. : Jones in place. Normal external genitalia. Rectal: Deferred. Skin: Warm, dry. Intact. Extremities: 2+ radial pulses bilaterally. No lower extremity edema. Neuro: Sedated. laboratory and microbiology Laboratory Tests 12/11/23 19:48 12/11/23 16:24 12/11/23 03:37 Test 9/21/24 03:37 Range/Units Serum Glucose 159 H 74-106 mg/dL Assessment/Plan Impression: Metabolic encephalopathy Acute hypoxic respiratory failure On mechanical ventilator Aspiration pneumonia COPD Acute on chronic diastolic CHF (HFpEF, LVEF 55%) Septic shock due to UTI vs pneumonia Hypertension, controlled Diabetic ketoacidosis, resolved Diabetes, uncontrolled ([id number]: 11.7%) Events/Plan: Intubated, on mechanical ventilator AC mode with RR 24, VT 450, PEEP of 5, FiO2 30% Sedated on Fentanyl, Versed. Taper sedation as tolerated Pressors as necessary for hemodynamic support Titrate to keep mean arterial pressure >65 mmHg K, mag supplementation Diurese w/ Lasix Monitor renal function. Monitor electrolytes. Supplement as necessary. Monitor ins and outs. D5W at 75 mL/hr. Antibiotics Pancultures F/u ID recommendations Plan for Trach + PEG placement. CT showing no acute findings in brain (probable old infarct) F/u neurology recommendations Accu-Cheks. Lantus. ISS Enoxaparin d/t DVT of cephalic vein DVT prophylaxis. Prognosis: Poor given patient's multiple co-morbidities. Condition: Critical Rest of plan per hospitalist and other consultants. A total of 35 minutes of critical care time was spent reviewing the patient record, examining the patient, making a diagnostic and therapeutic plan, discussing this plan with the medical personnel, following up on diagnostic studies and following the patient for clinical stability excluding any and all procedures. At least 50% of this time was spent in direct, [id number] contact. Thank you Dr. Benitez for allowing me to participate in this patient's care. Further recommendations will depend on the patient's clinical course. Please do not hesitate to contact me if you have any questions or concerns. This medical document was created using an electronic medical record system with [employer] dictation system. Although these documentations are being carefully reviewed, there may still be some phonetic and typographical changes. The errors are purely typographical, due to imperfection on the software program, and do not reflect any compromise in the patient's medical care. Dietary Evaluation Review Comments: 1) If GI is accessible consider Glucerna 1.2 @ 55 ml/hr goal rate as tolerated 2) If pt remains NPO >7 days consider TPN to meet at least 75% of estimated needs 3) Advance pt diet when medically feasible [facility]/Cardiac diet modified per CORRECTIONAL CASE RECORDS SUPERVISOR recommendations 4) Continue current plan of care Expected Outcomes/Goals: 1) Pt to receive nutrition support within 7 days of NPO status 2) Pt diet to advance 3) F/U in 2-3 days Plan discussed with: Other (ANA LUISA Rapp) Critical Care Time(min): 35 CARMEN THURMAN MD Dec 11, 2023 20:38
--- NOTE | 2023-12-11 21:12 | DVH ---
EXAM: US KIDNEY INDICATION: 68 years old, Female; maria g. TECHNIQUE: Multiple real-time sonographic images of the kidneys and bladder were obtained. COMPARISON: US KIDNEY on DOS: 11/18/23 Findings: Right kidney measures 10.3 cm with normal contours, echotexture, and cortical thickness. No evidence of Hydronephrosis, calculi, cystic or solid lesions. Left kidney measures 10.0 cm with normal contours, echotexture, and cortical thickness. No evidence o f Hydronephrosis, calculi, cystic or solid lesions. Urinary bladder is decompressed via carr catheter. Impression: 1. Unremarkable sonographic study of the bilateral kidneys. 2. The urinary bladder is decompressed via carr catheter.
[2023-12-11 22:24] LABS: Urine Bacteria FEW /hpf (None Seen); Urine Blood 2+ /uL (Negative); Urine Clarity Clear (Clear); Urine Color Light-Yellow (Yellow); Urine Protein, UAD TRACE (Negative); Urine Urobilinogen Normal (Negative); Urine WBC 90 /hpf (0 - 5)
[2023-12-11 22:31] LABS: Protein, Urine 43.9 mg/dL (0.0-11.9)
[2023-12-11 22:32] LABS: Amphetamine Screen, Urine Neg (NEGATIVE); Barbiturate Scree,Urine Neg (NEGATIVE); Benzodiazephine Screen, Urine Pos (NEGATIVE); Cocaine Screen, Urine Neg (NEGATIVE)
[2023-12-11 22:33] LABS: Cannabinoid Screen, Urine Neg (NEGATIVE); Creatinine, Urine 21.88 mg/dL (30.0-125.0); Creatinine, Urine 22.03 mg/dL (30.0-125.0); Opiate Scree,Urine Neg (NEGATIVE); Phencyclidine Screen, Urine Neg (NEGATIVE); Urine Protein/Creatinine Ratio 2.01
--- NOTE | 2023-12-11 23:18 | DVHPN2 ---
Consult Progress Note Date Seen: Dec 11, 2023 Subjective Patient reports: Feels better (no new fevers in last 24 hours) Objective vital signs Vital Sign Date Time Temp Pulse Resp B/P (MAP) Pulse Ox O2 Delivery O2 Flow Rate FiO2 12/11/23 22:57 108/42 12/11/23 22:30 69 24 98 30 12/11/23 20:00 Mechanical Ventilator+ 12/11/23 18:45 98.4 209.1 Total Intake and Output 12/10/23 12/10/23 12/11/23 15:00 23:00 07:00 Intake Total 1003.25 ml 1307.937 ml 1072.00 ml Output Total 1000 ml 900 ml Balance 1003.25 ml 307.937 ml 172.00 ml medications Current Medications Medications Dose Ordered Sig/Leslie Route Start Time Stop Time Status Last Admin Dose Admin Albuterol 2.5 mg Q4HR PRN NEB 12/08/23 19:30 12/11/23 23:00 2.5 MG Ipratropium [place] 0.5 mg Q4HR NEB 12/08/23 22:00 12/11/23 23:00 0.5 MG Ondansetron HCl 4 mg Q4HP PRN IV 12/08/23 19:30 Pantoprazole Sodium 40 mg DAILY IV 12/09/23 10:00 12/11/23 09:41 40 MG Fentanyl Citrate 250 ml @ 2.5 mls/hr Q24H IV 12/08/23 20:30 12/11/23 22:57 35 MLS/HR Hydralazine HCl 10 mg Q4HP PRN IV 12/09/23 05:30 12/09/23 05:50 10 MG Norepinephrine Bitartrate 250 ml @ 3.75 mls/hr Q24H IV 12/09/23 08:15 12/09/23 08:00 3.75 MLS/HR Midazolam HCl 50 ml @ 5 mls/hr Q10H IV 12/09/23 09:00 12/11/23 20:58 14 MLS/HR Sodium Chloride 10 ml QSHIFT@10,22 IV 12/09/23 22:00 12/11/23 22:12 10 ML Diagnostic Test (Pha) 1 strip Q6HR 12/09/23 18:00 12/11/23 18:12 1 STRIP Insulin Human Regular Q6HR SC 12/09/23 18:00 12/11/23 18:14 3 UNITS Dextrose 50 ml UD PRN IV 12/09/23 16:15 Vancomycin HCl 0 ml @ 0 mls/hr UD IV 12/09/23 19:00 Fluconazole 100 ml @ 100 mls/hr 10,11 IV 12/10/23 10:00 12/11/23 10:37 100 MLS/HR Enoxaparin Sodium 70 mg Q12HR SC 12/09/23 22:00 12/11/23 09:42 70 MG Acetaminophen [address] 12/10/23 01:30 12/10/23 02:02 650 MG Cefepime HCl 50 ml @ 12.5 mls/hr Q12HR IV 12/10/23 14:45 12/11/23 22:11 12.5 MLS/HR Enteral Nutritional Formula 1,000 ml 30ML/HR GT 12/10/23 16:45 Dextrose 1,000 ml @ 125 mls/hr Q8H IV 12/11/23 17:15 12/11/23 21:22 125 MLS/HR PHYSICAL EXAM: - GENERAL: intubated and sedated. No acute distress. Well-nourished. trached - EYES: EOMI. Anicteric. - HENT: Moist mucous membranes. No scleral icterus. No cervical lymphadenopathy. - LUNGS: Clear to auscultation bilaterally. No accessory muscle use. - CARDIOVASCULAR: Regular rate and rhythm. No murmur. No JVD. - ABDOMEN: Soft, non-tender and non-distended. No palpable masses. - EXTREMITIES: No edema. Non-tender.?SKIN: No rashes or lesions. Warm. - NEUROLOGIC: No focal neurological deficits. CN II-XII grossly intact, but not individually tested. - PSYCHIATRIC: Cooperative. Appropriate mood and affect. laboratory and microbiology Laboratory Tests 12/11/23 19:48 12/11/23 16:24 12/11/23 03:37 Test 12/11/23 03:37 Range/Units Serum Glucose 159 H 74-106 mg/dL Problem List/Assessment/Plan Problem List/Assessment/Plan Assessment/Plan Problems(with codes): (1) Hospital-acquired pneumonia (2) COPD (chronic obstructive pulmonary disease) (3) DKA (diabetic ketoacidosis) (4) HTN (hypertension) (5) Closed right hip fracture Plan/Recommendation ASSESSMENT AND PLAN: ID Problem List: - Aspiration pneumonia - Acute respiratory failure - Diabetic Ketoacidosis (DKA) - Sepsis due to UTI vs pneumonia - Acute Kidney Injury (YULIANA) - Hypernatremia - Transaminitis - Fatty liver - Uncontrolled diabetes (A1C of 11.7) - Hypothyroidism - Hypertension - COPD without exacerbation - Chronic kidney disease (CKD) Assessment: This is a 68-year-old female with a past medical history of diabetes, hypertension, recurrent DKA, hypothyroidism, obesity, COPD, neuropathies, mechanical falls, liver cirrhosis, and multiple joint replacements. The patient presented to the ED with acute loss of consciousness on 11/15/2023, subsequently diagnosed with DKA and an upper GI bleed. While at [facility], a CT and MRI of the head showed concerning lesions for metastasis vs. infectious process and gallbladder issues. Due to renal failure, these images were performed without contrast. An ERCP at [facility] showed no gallstones or common bile duct obstruction. Currently, the patient is reintubated on minimal sedation and receiving broad-spectrum antibiotics for presumed meningitis and other infections. 12/09: Patient has had a repeat abdomen, pelvis, chest Ct with contrast which shows no acute findings in the abdomen and pelvis. multifocal airspace in the lungs was shown. 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 Plan: - Recomend aquiring spudum cultures due to fevers and multifocal airspace disease - Start Cephapine for meningitis and hospital aquired pneumonia - Continue vancomycin - Stop metronidazole at this time. - Continue fluconazole. - Stop ampicillin this time. - Blood cultures monitoring. - Consider contrasted MRI head imaging. - Consider contrasted CT chest imaging. - Monitor respiratory status and adjust ventilator settings as necessary. - Monitor and manage blood glucose levels. - Supportive care as needed. Isolation Precautions: Standard Assessment and plan was discussed with the patient as written above. Plan is subject to change pending incorporation of new incoming information/diagnostics. Updates may be added as addendum at the bottom (OR TOP) of this note. Thank you for interesting consult. ID will continue to follow. Please contact Infectious disease for any questions or concerns. Nithin Carrasco M.D. [facility] Ph: ? History: The patient's chart and medications were reviewed in detail, and the patient was seen and examined. History obtained from: patient. Inna Sanderson is a 68 y.o. female, with a past medical history of diabetes, CSH, hypertension, hypothyroidism, DKA, obesity, COPD, neuropathies, mechanical fall, and liver cirrhosis, who presented with acute loss of consciousness on 11/15/2023. Review of Systems: A complete 10 system review of systems was completed and negative except as noted in the HPI or here. ROS: - CONSTITUTIONAL: Denies weight loss, fever, and chills. - HEENT: Denies changes in vision and hearing. - RESPIRATORY: Denies SOB and cough. - CV: Denies palpitations and chest pain. - GI: Denies abdominal pain, nausea, vomiting, and diarrhea. - : Denies dysuria and urinary frequency. - MSK: Denies myalgia and joint pain. - SKIN: Denies rash and pruritus. - NEUROLOGICAL: Denies headache and syncope. - PSYCHIATRIC: Denies recent changes in mood, anxiety, and depression. Past Medical History: - Diabetes - Hypertension - Hypothyroidism - Obesity - COPD - Neuropathies - Mechanical falls - Liver cirrhosis Past Surgical History: - Three hip replacements - Right knee replacement Home Medications: - Insulin - Ibuprofen - Levothyroxine - Mirapex - Precaulin Allergies: No known allergies. Family History: - Prostate cancer (Father) - Diabetes (Sister) - Prostate cancer (Brother) Social History: - Marital status: (details not on file) - Smoking status: Quit smoking two years ago, 40 pack-year history - Alcohol use: Never - Drug use: Never - Sexual activity: Not currently Social Determinants of Health: - Financial Resource Strain: Low Risk - Food Insecurity: Low Risk - Transportation Needs: Low Risk Objective: Physical Exam: - General: NAD - Neck: Supple. No masses. - HEENT: PERRL. Normal lids and conjunctiva. Moist mucous membranes. Oropharynx without lesions, exudates, or erythema. Normal appearance of the external aspects of the nose and ears. - Heart: Regular rhythm, normal rate. No murmur. No lower extremity edema. - Lungs: Normal respiratory effort. Clear to auscultation bilaterally. No wheezes. No crackles. - Abdomen: Soft. Non-tender. Non-distended. No masses or abdominal hernia. - MSK: No digital cyanosis. Normal strength and tone in all 4 limbs. - Skin: Warm and dry, no rashes. - Neuro: Alert. No facial droop or slurred speech. Extra-ocular movements intact. Sensation intact to soft touch in all 4 limbs. - Psych: Appropriate mood. Full affect. Oriented to person, place, time, and situation. Lines: - Active Lines: Peripheral IV Line - 12/09/23 0810 Left Anterior (palmar) Upper Arm 20 gauge <1 day Diagnostic Studies: Available diagnostic studies were reviewed personally. Significant relevant results and findings are outlined below or addressed in the Assessment and Plan above. Pertinent Imaging: CT Head (11/17/2023): - Interval development of hyper-dense lesions in the bilateral cerebral hemispheres and right occipital lobe measuring 2.6 cm, concerning for metastasis vs atypical infection. MRI Head (12/05/2023): - Multiple enhancing lesions in the bilateral cerebral hemispheres, right parietal and occipital lobes. No evidence of demyelinating disease. TTE: - Ejection Fraction: 55% - Grade 1 diastolic dysfunction - Normal biatrial size - Aortic, mitral, tricuspid, and pulmonary valves all normal. Chest X-ray (Today): - No significant change. - Small opacity right lung base possibly reflecting atelectasis or pneumonia. Doppler Ultrasound: - No DVTs detected. Plan discussed with: Patient Dietary Evaluation Review Comments: 1) If GI is accessible consider Glucerna 1.2 @ 55 ml/hr goal rate as tolerated 2) If pt remains NPO >7 days consider TPN to meet at least 75% of estimated needs 3) Advance pt diet when medically feasible [facility]/Cardiac diet modified per DRIVER LICENSE REVIEWING OFFICER recommendations 4) Continue current plan of care Expected Outcomes/Goals: 1) Pt to receive nutrition support within 7 days of NPO status 2) Pt diet to advance 3) F/U in 2-3 days NITHIN CARRASCO MD Dec 11, 2023 23:18
[2023-12-12] VITALS (107 sets, daily range): BP systolic 89–136; BP diastolic 32–61; PULSE 59–80; RESP 15–24; TEMP 97.9–99.3; O2SAT 96–100
[2023-12-12 04:00] LABS: Basophils # (auto) 0.1 10 ^3/uL (0-0.2); Eosinophils # (auto) 1.2 10 ^3/uL (0-0.8); Hemoglobin 7.5 g/dL (12.2-16.2); Lymphocytes # (auto) 1.5 10 ^3/uL (0.4-5.4); Monocytes # (auto) 0.2 10 ^3/uL (0-1.3)
[2023-12-12 04:03] LABS: Basophils % (auto) 1.5 % (0.0-2.0); Eosinophils % (auto) 18.1 % (0.0-7.0); Hematocrit 22.5 % (36.0-46.0); Lymphocytes % (auto) 23.2 % (10.0-50.0); Mean Corpuscular Hemoglobin 30.1 pg (28.0-32.0); Mean Corpuscular Hgb Conc. 33.3 g/dL (32.0-36.0); Mean Corpuscular Volume 90.3 fL (80.0-100.0); Monocytes % (auto) 3.4 % (0.0-12.0); Neutrophils # (auto) 3.4 10 ^3/uL (1.6-8.6); Neutrophils % (auto) 53.8 % (37.0-80.0); Nucleated Red Blood Cells % 0.2 %; Platelet Count (auto) 320 10^3/uL (140-450); Red Blood Cells 2.49 10^6/uL (4.0-5.20); Red Cell Distribution Width 16.1 % (11.8-14.3); White Blood Cell 6.4 10^3/uL (4.4-10.8)
[2023-12-12 04:18] LABS: Alanine Aminotransferase 17 U/L (7-40); Albumin 2.5 g/dL (3.2-4.8); Alkaline Phosphatase 184 U/L (46-116); Anion Gap 6 (5-15); Aspartate Aminotransferase 22 U/L (13-40); BUN/Creatinine Ratio 10.5 (10.0-20.0); Blood Urea Nitrogen 15 mg/dL (9-23); Calcium 8.3 mg/dL (8.7-10.4); Carbon Dioxide 19 mmol/L (20-30); Chloride 109 mmol/L (98-107); Glucose 271 mg/dL (74-106); Potassium 3.8 mmol/L (3.5-5.1); Sodium 134 mmol/L (136-145)
[2023-12-12 04:19] LABS: Magnesium 2.3 mg/dL (1.6-2.6)
[2023-12-12 04:21] LABS: Bilirubin, Total < 0.2 mg/dL (0.2-1.0); Total Protein 4.8 g/dL (5.7-8.2)
--- NOTE | 2023-12-12 05:40 | DVH ---
CHEST RADIOGRAPH Indication:Intubated Technique: Single frontal view of the chest was obtained Comparison: XY CHEST PORTABLE on DOS: 12/11/23, XY CHEST PORTABLE on DOS: 12/10/23, XY CHEST PORTABLE o n DOS: 12/10/23, XY CHEST PORTABLE on DOS: 12/09/23, XY CHEST PORTABLE on DOS: 12/08/23, XY CHEST PORTAB LE on DOS: 12/11/23 FINDINGS: Lines and Tubes: Endotracheal tube, enteric catheter and left PICC in satisfactory position Lungs: Congestion Pleura: No effusion. No pneumothorax. Cardiomediastinal contours: Unremarkable Bones: Unremarkable IMPRESSION: Lines and tubes in satisfactory position. No significant interval change.
[2023-12-12] MEDS: IOHEXOL 300 MG/ML 100ML BOTTLE IJ ONE (07:00)
[2023-12-12 07:23] LABS: Base Excess -8.2 mmol/L (-2.0-3.0)
--- NOTE | 2023-12-12 09:13 | DVHPNRES ---
Progress Note Date Seen: Dec 12, 2023 Resident Creating Document: MIRACLE SALGADO RESIDENT Medical Necessity Reason Pt with a Central, PICC or Fol: Yes The following are medically ne: PICC Line, Jones Catheter Subjective Review of Systems Inna Sanderson is a 68 year old female patient who was transferred back from [facility] where she was evaluated for space occupying lesions in the brain (to rule out metastasis, infection vs stroke), where did completed MRI spectroscopy with no conclusive finding, presented failed extubation [facility] also suggested to complete EGD as outpatient. Per [id number] did not complete YOLANDA due to availability. Initially was transfered from [facility] to [facility] with diagnosis of DKA symptomatic by AMS (per daughter bizarre behavior) and general weakness which started the day of her admission, had to be emergently intubated to protect airway, requiring insulin drip in the other center (DKA resolved before transfer was completed). Could not obtain ROS due to clinical status. Past medical history: Diabetes, hypertension, hypothyroidism, obesity, COPD, diabetic polyneuropathy, recent mechanical fall with no loss of consciousness on right wrist has not had surgery, liver cirrhosis. Multiple admissions for DKA and UTI. Surgical history: 3 hip replacement, right knee replacement Family history: Non contributory Social history: Lives with two room mates. Quit smoking 2 years ago (40 pack year history). Denies current tobacco, alcohol and other drug abuse Allergies: Denies Home medication: Insulin, Ibuprofen, Levothyroxine 100 hg PO daily, Mirapex 0.75 mg daily, Pregabalin 150 mg PO bid PCP: Dr. Hernandez Patient seen and examined at bedside. Currently in ICU status for sedoanalgesia due to mechanically assisted ventilation. Deferred ROS Objective vital signs Vital Sign Date Time Temp Pulse Resp B/P (MAP) Pulse Ox O2 Delivery O2 Flow Rate FiO2 12/12/23 07:51 66 24 106/61 (76) 98 30 12/12/23 06:45 99.0 210.2 12/11/23 20:00 Mechanical Ventilator+ Total Intake and Output 12/11/23 12/11/23 12/12/23 15:00 23:00 07:00 Intake Total 1792 ml 742 ml 1368 ml Output Total 2350 ml 750 ml Balance 1792 ml -1608 ml 618 ml medications Current Medications Medications Dose Ordered Sig/Leslie Route Start Time Stop Time Status Last Admin Dose Admin Albuterol 2.5 mg Q4HR PRN NEB 12/08/23 19:30 12/12/23 06:23 2.5 MG Ipratropium [place] 0.5 mg Q4HR NEB 12/08/23 22:00 12/12/23 06:23 0.5 MG Ondansetron HCl 4 mg Q4HP PRN IV 12/08/23 19:30 Pantoprazole Sodium 40 mg DAILY IV 12/09/23 10:00 12/11/23 09:41 40 MG Fentanyl Citrate 250 ml @ 2.5 mls/hr Q24H IV 12/08/23 20:30 12/12/23 06:22 35 MLS/HR Hydralazine HCl 10 mg Q4HP PRN IV 12/09/23 05:30 12/09/23 05:50 10 MG Norepinephrine Bitartrate 250 ml @ 3.75 mls/hr Q24H IV 12/09/23 08:15 12/09/23 08:00 3.75 MLS/HR Midazolam HCl 50 ml @ 5 mls/hr Q10H IV 12/09/23 09:00 12/12/23 07:47 14 MLS/HR Sodium Chloride 10 ml QSHIFT@10,22 IV 12/09/23 22:00 12/11/23 22:12 10 ML Diagnostic Test (Pha) 1 strip Q6HR 12/09/23 18:00 12/12/23 05:42 1 STRIP Insulin Human Regular Q6HR SC 12/09/23 18:00 12/12/23 05:44 4 UNITS Dextrose 50 ml UD PRN IV 12/09/23 16:15 Vancomycin HCl 0 ml @ 0 mls/hr UD IV 12/09/23 19:00 Fluconazole 100 ml @ 100 mls/hr 10,11 IV 12/10/23 10:00 12/11/23 10:37 100 MLS/HR Enoxaparin Sodium 70 mg Q12HR SC 12/09/23 22:00 12/11/23 09:42 70 MG Acetaminophen 650 mg Q6HP PRN OK 12/10/23 01:30 12/10/23 02:02 650 MG Cefepime HCl 50 ml @ 12.5 mls/hr Q12HR IV 12/10/23 14:45 12/11/23 22:11 12.5 MLS/HR Enteral Nutritional Formula 1,000 ml 30ML/HR GT 12/10/23 16:45 Dextrose 1,000 ml @ 125 mls/hr Q8H IV 12/11/23 17:15 12/12/23 05:45 125 MLS/HR Examination Patient lying in bed, under analgesia due to mechanical ventilation General: RASS -3, afebrile, mucosae are moist Cardiovascular: Normal S1 and S2. No murmurs, gallops or rubs Respiratory: Mechanically assisted ventilation, equal bilateral airway entree. Clear lung sounds on auscultation Abdomen: Soft, nontender, no organomegaly, normal bowel sounds MSK/skin: Mobilization of limbs cannot be evaluated. Skin is dry and warm. PICC line in left arm Neurological: Orientation cannot be assessed. No apparent motor no sensitive deficits. Pupils are isocoric and reactive laboratory and microbiology Laboratory Tests 12/12/23 03:36 Test 12/12/23 03:36 Range/Units Serum Glucose 271 H 74-106 mg/dL Microbiology Date/Time Source Procedure Growth Status 12/09/23 09:28 Blood Blood Culture - Preliminary NO GROWTH AFTER 48 HOURS OF INCUBATION. Resulted 12/08/23 19:00 Nose MRSA Screen - Final Complete 12/08/23 19:00 Urine - Catheterized Urine Culture - Final Complete 12/08/23 19:00 Sputum Gram Stain - Final Complete 12/08/23 19:00 Sputum Respiratory Culture - Final Complete Problem List/Assessment/Plan Problem List/Assessment/Plan Neurology # Metabolic encephalopathy probably secondary to sepsis vs brain metastasis/infection/stroke -Returned from [facility] with no conclusive diagnosis -Presented failed extubation in OC (reintubated in less than 24 hours) -Ordered panCT with contrast: No acute findings in brain (probable old infarct) and abdomen/pelvis. Chest presented probable multifocal pneumonia -Neurology on board # Space occupying lesion - Rule out brain infection vs metastasis vs stroke -Head MRI spectroscopy was nonconclusive. -Lab workup in higher level of care was negative (includes blastomycosis, QuantiFERON tuberculosis, cryptococcosis, BD glucan), pending nocardia, histoplasmosis and Coccidioides Respiratory # Acute respiratory failure -Continues with mechanical assisted ventilation (VCV VT 450 RR 24 PEEP 5 FIO2 30%) # Aspiration pneumonia -Currently under empiric IV antibiotics (cefepime, vancomycin and fluconazole, previously on ampicillin, ceftriaxone and metronidazole). In higher level of care suspected the patient may have mucormycosis. -Ordered panCT with contrast: No acute findings in brain (probable old infarct) and abdomen/pelvis. Chest presented probable multifocal pneumonia # COPD no exacerbation -Monitor # Mixed respiratory acidosis -Monitor Caridiology # Acute on chronic diastolic CHF (HFpEF, LVEF 55%) -currently on furosemide 40 mg IV daily -Completed TTE and YOLANDA with LVEF 55% # Ruled out infective endocarditis -Completed PE on 12/10/2023: No vegetation seen # Hypertension controlled -Monitor Infectious # Septic shock due to UTI vs pneumonia -Currently under empiric IV antibiotics (cefepime, vancomycin and fluconazole, previously on ampicillin, ceftriaxone and metronidazole) -Ordered pancultures -Ordered infectious disease evaluation -Required IV vasopressors for 48 hours, currently without vasoactive drugs # Questionable brain abscess -Infectious disease on board: Currently under empiric IV antibiotics (cefepime, vancomycin and fluconazole, previously on ampicillin, ceftriaxone and metronidazole). Ordered head MRI (will be competed on 12/12/2023) Endocrinology # DKA probably secondary to pneumonia - resolved -Has resolved since transferred from [facility] # Diabetic ketoacidosis - Resolved -Continue with insulin sliding scale # Diabetes - Uncontrolled ([id number]: 11.7%) -On insulin sliding scale and Lantus # Diabetic polyneuropathy -Monitor # Hypothyroidism -Continue home medication Genitourinary # UTI -Ordered new culture # YULIANA hemodynamically mediated (baseline creatinine 0.97) - Improved -Will monitor -Ordered panCT with IV contrast # Hypernatremia -Indicated D5W. Also indicated IV lasix Gastrointestinal # Transaminitis -Improved # Rule out choledocholithiasis/cholangitis -Presented dilated CBD on abdomen/pelvis CT and MRCP. HLOC recommended ERCP as outpatient # Fatty liver -Monitor Musculoskeletal # Chronic right wrist fracture - secondary to mechanical fall -Monitor # Arthritis -Monitor Hematological # DVT of cephalic vein -Under therapeutic enoxaparin Prophylaxis for PUD and DVT: Therapeutic enoxaparin and Pantoprazole Nutrtion: [id number] ml/h Lines 12/09/2023 Left arm PICC line 11/17/2023 ET 11/17/2023 NG Drips FNT 375 Versed 8 NE 0 Goals of care discussed with family (daughter) for over 18 minutes: Full code status Discussed case with Dr. Cobb, for the family and nurses: Currently ICU status, under empiric IV antibiotics, ordered wooten cultures, wooten CT with IV contrast (only acute finding pneumonia) and head MRI with contrast. Planning to complete trach (Wednesday or Wednesday) and PEG (Today). Infectious Disease, Neurology, surgical and GI specialist on board. Patient has poor prognosis Critical care time spent including discussion with nursing and family: 72 minutes Plan discussed with: Patient, Daughter, Other (Nurses) My Orders My Orders Orders - MIRACLE SALGADO RESIDENT Procedure Category Date Status Time Parathyroid Hormone LAB 12/11/23 In Process Intact 20:25 Dietary Evaluation Review Comments: 1) If GI is accessible consider Glucerna 1.2 @ 55 ml/hr goal rate as tolerated 2) If pt remains NPO >7 days consider TPN to meet at least 75% of estimated needs 3) Advance pt diet when medically feasible to a CCHO 45g/Cardiac diet modified per SYSTEMS ARCHITECTURE ANALYST recommendations 4) Continue current plan of care Expected Outcomes/Goals: 1) Pt to receive nutrition support within 7 days of NPO status 2) Pt diet to advance 3) F/U in 2-3 days Date of Service: Dec 12, 2023 Billing Provider: REFUGIO COBB MD Common Visit Codes: [id number] INP/OBS CARE(HIGH) MIRACLE SALGADO RESIDENT Dec 12, 2023 09:13 REFUGIO COBB MD Dec 20, 2023 20:27
[2023-12-12 10:51] LABS: % Iron Saturation 9.8 % (15-50)
--- NOTE | 2023-12-12 13:00 | DVHPN2 ---
Progress Note Date Seen: Dec 12, 2023 Medical Necessity Reason Pt with a Central, PICC or Fol: Yes The following are medically ne: PICC Line, Jones Catheter Subjective Review of Systems: RESPIRATORY:Abnormal Other Systems: Patient seen and examined by myself today in follow-up Objective vital signs Vital Sign Date Time Temp Pulse Resp B/P (MAP) Pulse Ox O2 Delivery O2 Flow Rate FiO2 12/12/23 12:28 66 24 100/35 (56) 98 30 12/12/23 10:45 97.9 208.2 12/12/23 08:00 Mechanical Ventilator+ Total Intake and Output 12/11/23 12/11/23 12/12/23 15:00 23:00 07:00 Intake Total 1792 ml 742 ml 1857 ml Output Total 2350 ml 750 ml Balance 1792 ml -1608 ml 1107 ml medications Current Medications Medications Dose Ordered Sig/Leslie Route Start Time Stop Time Status Last Admin Dose Admin Albuterol 2.5 mg Q4HR PRN NEB 12/08/23 19:30 12/12/23 09:44 2.5 MG Ipratropium [place] 0.5 mg Q4HR NEB 12/08/23 22:00 12/12/23 09:43 0.5 MG Ondansetron HCl 4 mg Q4HP PRN IV 12/08/23 19:30 Pantoprazole Sodium 40 mg DAILY IV 12/09/23 10:00 12/12/23 10:08 40 MG Fentanyl Citrate 250 ml @ 2.5 mls/hr Q24H IV 12/08/23 20:30 12/12/23 06:22 35 MLS/HR Hydralazine HCl 10 mg Q4HP PRN IV 12/09/23 05:30 12/09/23 05:50 10 MG Norepinephrine Bitartrate 250 ml @ 3.75 mls/hr Q24H IV 12/09/23 08:15 12/09/23 08:00 3.75 MLS/HR Midazolam HCl 50 ml @ 5 mls/hr Q10H IV 12/09/23 09:00 12/12/23 12:26 10 MLS/HR Sodium Chloride 10 ml QSHIFT@,22 IV 12/09/23 22:00 12/12/23 10:08 10 ML Diagnostic Test (Pha) 1 strip Q6HR 12/09/23 18:00 12/12/23 12:05 1 STRIP Insulin Human Regular Q6HR SC 12/09/23 18:00 12/12/23 12:09 3 UNITS Dextrose 50 ml UD PRN IV 12/09/23 16:15 Vancomycin HCl 0 ml @ 0 mls/hr UD IV 12/09/23 19:00 Fluconazole 100 ml @ 100 mls/hr 10,11 IV 12/10/23 10:00 12/12/23 11:21 100 MLS/HR Enoxaparin Sodium 70 mg Q12HR SC 12/09/23 22:00 12/11/23 09:42 70 MG Acetaminophen 650 mg Q6HP PRN DE 12/10/23 01:30 12/10/23 02:02 650 MG Cefepime HCl 50 ml @ 12.5 mls/hr Q12HR IV 12/10/23 14:45 12/12/23 10:08 12.5 MLS/HR Enteral Nutritional Formula 1,000 ml 30ML/HR GT 12/10/23 16:45 Dextrose 1,000 ml @ 125 mls/hr Q8H IV 12/11/23 17:15 12/12/23 05:45 125 MLS/HR Examination: LUNGS:Normal, CVS:Normal, MSK:Normal laboratory and microbiology Laboratory Tests 12/12/23 03:36 Test 12/12/23 03:36 Range/Units Serum Glucose 271 H 74-106 mg/dL Microbiology Date/Time Source Procedure Growth Status 12/09/23 09:28 Blood Blood Culture - Preliminary NO GROWTH AFTER 72 HOURS OF INCUBATION. Resulted 12/08/23 19:00 Nose MRSA Screen - Final Complete 12/08/23 19:00 Urine - Catheterized Urine Culture - Final Complete 12/08/23 19:00 Sputum Gram Stain - Final Complete 12/08/23 19:00 Sputum Respiratory Culture - Final Complete Problem List/Assessment/Plan Problem List/Assessment/Plan YULIANA superimposed on CKD secondary to hemodynamic mediated Acute respiratory failure, intubated on ventilator DM type II Chronic diastolic HF Sepsis UTI Hypokalemia Hypomagnesemia Dropping hemoglobin GI bleeding Vancomycin toxicity REC: Kidney function slightly improving today Increased urine output Jones's catheter Strict I&O's KCl replacement Magnesium sulfat IVPB Hold vancomycin IV Abx Insulin SS PRBC transfusion prn Will continue to follow Plan discussed with: Other (Nurse) My Orders My Orders Orders - JOANNA OROZCO MD Procedure Category Date Status Time Kidney US 12/11/23 Resulted 20:21 Vitamin D, 25-Hydroxy LAB 12/11/23 In Process 20:21 Dietary Evaluation Review Comments: 1) If GI is accessible consider Glucerna 1.2 @ 55 ml/hr goal rate as tolerated 2) If pt remains NPO >7 days consider TPN to meet at least 75% of estimated needs 3) Advance pt diet when medically feasible to a CCHO 45g/Cardiac diet modified per BLANKET WINDER OPERATOR recommendations 4) Continue current plan of care Expected Outcomes/Goals: 1) Pt to receive nutrition support within 7 days of NPO status 2) Pt diet to advance 3) F/U in 2-3 days JOANNA OROZCO MD Dec 12, 2023 13:00
[2023-12-12] MEDS ORDERED: CLINIMIX PER PHARMACY 0 ML IV SCH (15:30)
--- NOTE | 2023-12-12 15:40 | DVHPN2 ---
Progress Note - Dictate Date Seen: Dec 12, 2023 Medical Necessity Reason Pt with a Central, PICC or Fol: Yes The following are medically ne: PICC Line, Carr Catheter Reason for carr catheter: Strict I&O Subjective Covering Dr. Benitez Patient seen and examined at bedside. Sedated, intubated on mechanical ventilator. Overnight events reviewed. vital signs Vital Sign Date Time Temp Pulse Resp B/P (MAP) Pulse Ox O2 Delivery O2 Flow Rate FiO2 12/12/23 14: 61 24 106/41 (62) 98 30 12/12/23 10:45 97.9 208.2 12/12/23 08:00 Mechanical Ventilator+ Total Intake and Output 12/11/23 12/11/23 12/12/23 15:00 23:00 07:00 Intake Total 1792 ml 742 ml 1857 ml Output Total 2350 ml 750 ml Balance 1792 ml -1608 ml 1107 ml medications Current Medications Medications Dose Ordered Sig/Leslie Route Start Time Stop Time Status Last Admin Dose Admin Albuterol 2.5 mg Q4HR PRN NEB 12/08/23 19:30 12/12/23 14:20 2.5 MG Ipratropium [place] 0.5 mg Q4HR NEB 12/08/23 22:00 12/12/23 14:20 0.5 MG Ondansetron HCl 4 mg Q4HP PRN IV 12/08/23 19:30 Pantoprazole Sodium 40 mg DAILY IV 12/09/23 10:00 12/12/23 10:08 40 MG Fentanyl Citrate 250 ml @ 2.5 mls/hr Q24H IV 12/08/23 20:30 12/12/23 15:10 25 MLS/HR Hydralazine HCl 10 mg Q4HP PRN IV 12/09/23 05:30 12/09/23 05:50 10 MG Norepinephrine Bitartrate 250 ml @ 3.75 mls/hr Q24H IV 12/09/23 08:15 12/09/23 08:00 3.75 MLS/HR Midazolam HCl 50 ml @ 5 mls/hr Q10H IV 12/09/23 09:00 12/12/23 12:26 10 MLS/HR Sodium Chloride 10 ml QSHIFT@ IV 12/09/23 22:00 12/12/23 10:08 10 ML Diagnostic Test (Pha) 1 strip Q6HR 12/09/23 18:00 12/12/23 12:05 1 STRIP Insulin Human Regular Q6HR SC 12/09/23 18:00 12/12/23 12:09 3 UNITS Dextrose 50 ml UD PRN IV 12/09/23 16:15 Vancomycin HCl 0 ml @ 0 mls/hr UD IV 12/09/23 19:00 Fluconazole 100 ml @ 100 mls/hr 10,11 IV 12/10/23 10:00 12/12/23 11:21 100 MLS/HR Enoxaparin Sodium 70 mg Q12HR SC 12/09/23 22:00 12/11/23 09:42 70 MG Acetaminophen 650 mg Q6HP PRN NE 12/10/23 01:30 12/10/23 02:02 650 MG Cefepime HCl 50 ml @ 12.5 mls/hr Q12HR IV 12/10/23 14:45 12/12/23 10:08 12.5 MLS/HR Enteral Nutritional Formula 1,000 ml 30ML/HR GT 12/10/23 16:45 Dextrose 1,000 ml @ 125 mls/hr Q8H IV 12/11/23 17:15 12/12/23 05:45 125 MLS/HR Amino Acids 0 ml @ 0 mls/hr PER PHARMACY IV 12/12/23 15:30 objective Gen.: Patient lying in bed in medical ICU. Sedated, intubated on mechanical ventilator. Head: Normocephalic, atraumatic. Eyes: PERRLA. Ears: Normal external anatomy. Throat: Endotracheal tube and orogastric tube in place. Neck: Supple, trachea midline. Chest: Transmitted breath sounds bilaterally. Decreased air entry bilaterally. No wheezing. Bibasilar crackles. Cardiovascular: Positive S1, positive S2. Regular rate and rhythm. Abdomen: Positive bowel sounds in all 4 quadrants. Soft, nontender, nondistended. : Carr in place. Normal external genitalia. Rectal: Deferred. Skin: Warm, dry. Intact. Extremities: 2+ radial pulses bilaterally. No lower extremity edema. Neuro: Sedated. laboratory and microbiology Laboratory Tests 12/12/23 03:36 Test 12/12/23 03:36 Range/Units Serum Glucose 271 H 74-106 mg/dL Assessment/Plan Impression: Metabolic encephalopathy Acute hypoxic respiratory failure On mechanical ventilator Aspiration pneumonia COPD Acute on chronic diastolic CHF (HFpEF, LVEF 55%) Septic shock due to UTI vs pneumonia Hypertension, controlled Diabetic ketoacidosis, resolved Diabetes, uncontrolled (wjcrxblhjqE2H: 11.7%) Events: Remains on vent support AC mode with RR 24, VT 450, PEEP of 5, FiO2 30% Sedated on Fentanyl, Versed. Continue antibiotics Antifungals - Diflucan D5W at 75 mL/hr. Accu-Cheks Plan for trach + PEG. Poor prognosis Labs and imaging reviewed. Rest of plan as noted below. Plan: Intubated, on mechanical ventilator AC mode with RR 24, VT 450, PEEP of 5, FiO2 30% Titrate FIO2 to keep O2 saturation above 90%. Daily ABG and CXR while intubated Sedate for ventilator synchrony Pressors as necessary for hemodynamic support Titrate to keep mean arterial pressure >65 mmHg Antibiotics Antifungal K, mag supplementation Diurese w/ Lasix Monitor renal function. Monitor electrolytes. Supplement as necessary. Monitor ins and outs. D5W at 75 mL/hr. Antibiotics Pancultures ID recommendations appreciated Plan for Trach + PEG placement. CT showing no acute findings in brain (probable old infarct) Neurology recommendations appreciated Accu-Cheks. Lantus. ISS Enoxaparin d/t DVT of cephalic vein DVT prophylaxis. Prognosis: Poor given patient's multiple co-morbidities. Rest of plan per hospitalist and other consultants. Thank you Dr. Benitez for allowing me to participate in this patient's care. Further recommendations will depend on the patient's clinical course. Please do not hesitate to contact me if you have any questions or concerns. This medical document was created using an electronic medical record system with [employer] dictation system. Although these documentations are being carefully reviewed, there may still be some phonetic and typographical changes. The errors are purely typographical, due to imperfection on the software program, and do not reflect any compromise in the patient's medical care. Dietary Evaluation Review Comments: 1) If GI is accessible consider Glucerna 1.2 @ 55 ml/hr goal rate as tolerated 2) If pt remains NPO >7 days consider TPN to meet at least 75% of estimated needs 3) Advance pt diet when medically feasible to a [facility] 45g/Cardiac diet modified per PRINTING AND STAMPING SUPERVISOR recommendations 4) Continue current plan of care Expected Outcomes/Goals: 1) Pt to receive nutrition support within 7 days of NPO status 2) Pt diet to advance 3) F/U in 2-3 days Plan discussed with: Other (RN) CARMEN THURMAN MD Dec 12, 2023 15:40
[2023-12-12] MEDS ORDERED: DEXTROSE (50%) 50ML SYRG IV SCH (15:45)
[2023-12-12] MEDS ORDERED: NALOXONE HCL 0.4 MG/ML VIAL ONE (15:53)
[2023-12-12] MEDS ORDERED: FLUMAZENIL 0.1 MG/ML INJ 10ML MDV IV ONE (15:53)
[2023-12-12] MEDS ORDERED: SODIUM CHLORIDE LOCK 0 ML ONE (15:53)
[2023-12-12] MEDS ORDERED: diphenhdrAMINE HCL 50 MG/1 ML VL ONE (15:54)
[2023-12-12] MEDS ORDERED: fentaNYL CITRATE 100 MCG/2 ML VL ONE (15:54)
[2023-12-12] MEDS ORDERED: MIDAZOLAM HCL 5 MG/ML-1ML VIAL ONE (15:54)
--- NOTE | 2023-12-12 17:52 | DVHOP2 ---
Operative Report DATE OF PROCEDURE: 12/12/23 INDICATIONS FOR THE PROCEDURE: Respiratory failure encephalopathy malnutrition for feeding tube placement for nutrition PROCEDURE PERFORMED: 1. Esophagogastroduodenoscopy and percutaneous endoscopic gastrostomy POSTOPERATIVE DIAGNOSIS: Hiatal hernia Feeding tube placed in the stomach INFORMED CONSENT: The risks and benefits and alternatives were explained to the patient and informed consent was obtained. PROCEDURE IN DETAIL: The patient was kept NPO after midnight. In the icu room, patient is c ompletely sedated and on ventilator. Olympus gastroscope was passed through the oropharynx into the stomach and the duodenum,and the findings are as follows Esophagus: Small Hiatal hernia No esophagitis no ulcers Stomach: Fundus: Retroflexed and visualized normal Body and antrum Erythematous streaks suggestive of gastritis Pylorus normal Duodenum Normal After the endoscopy was completed, scope was withdrawn into the stomach and at the point of maximum illumination, a Seldinger needle was introduced. The needle was withdrawn and through the cannula a guidewire was introduced and this was held by a snare passed through the biopsy channel and removed through the oropharynx Now over the guidewire the feeding tube was attached and introduced through the oropharynx and advanced with gentle pull on the wire from the anterior abdominal wall. Tube was observed endoscopically to be in position on the anterior gastric wall slightly below the GE junction and and anchored. Patient tolerated the procedure extremely well post op vital signs stable Endoscopic impression Hiatal hernia Respiratory failure and Malnutrition for which feeding tube placed Suggestions Watch closely for any complications will avoid anticoagulants for48 hours We will start slowly feedings very gently and advance feeding slowly as tolerated Her overall prognosis is very guarded with multiple problems Thank you for asking me to take part in the care of this pleasant patient CEFERINO Erwin MD Dec 12, 2023 17:52
[2023-12-12] MEDS: InsuLIN REG 1unit/0.01ml Soln (100units/ml) SC SCH (18:00)
[2023-12-12] MEDS: ACCU-CHEK COMFORT CURVE STRIP VI SCH (18:09)
--- NOTE | 2023-12-12 19:54 | DVHPN2 ---
Progress Note - Dictate Date Seen: Dec 12, 2023 Medical Necessity Reason Pt with a Central, PICC or Fol: Yes The following are medically ne: PICC Line, Carr Catheter Reason for carr catheter: Strict I&O Subjective Mr. Sanderson is a 68 years old female with a history of hypertension, diabetes, hypothyroidism, COPD, obesity, diabetic polyneuropathy, arthritis, liver cirrhosis, she was transferred back from the [facility] on 12/08/2023 after ERCP. I have seen examined the patient, I have talked to her nurse, she responds to painful stimuli, clinically no obvious changes She received PEG feeding tube insertion on 12/12/2023 Versed 7 mg/hour, fentanyl 250 mcg/hour LLU Neurosurgery consultation: The lesions likely represents infarct, recommend Re attempting MRI spectrography for further evaluation Neuro consultation: Lumbar puncture was not recommended concerning possibility of herniation EEG, 11/28/2023: No seizure/nonconvulsive status epileptics (I did not see report) TTE, 11/29/23: EF: 70-75% (I did not see report) MRI brain (no report): signal abnormality in bilateral cerebellum and right occipital lobe, punctate foci in right parietal lobe and central semiovale- unable to differentiate subacute ischemia 2/2 MR effects versus infection versus metastasis. Recommend contrast enhanced MRI MRI, 12/05/23: No evidence of demyelinating disease (I did not see report) MRI orbital, face, neck ww 12/05/2023, comparison: MR brain 11/28/2023: No evidence of mucormycosis infection. Multiple irregularly enhancing cerebellar and right occipital lesions were better evaluated on recent brain MRI MRI C-spine, 12/05/2023: No evidence of demyelinating disease in the cervical spine. Moderate degenerative changes. Grade 1 anterolisthesis of C7 on T1 MRI lumbar spine wwo, 12/05/2023: No evidence of demyelinating disease in the lumbar spine. Degenerative changes and grade 1 anterolisthesis of L4 and L5. Mild central spinal stenosis at L4-5. [id number] multilevel bilateral foraminal stenosis as described above MRI spectroscopy 12/05/2023: Cerebellar lesion showing moderately elevated Cho, reduced ZINA, large lipid peaks, and additional tics suspicious for amino acids and alanine. The alanine and amino acids are suspicious for an infectious process Treatment according to discharge note: ASA 81mg Qd, Lipitor 20 mg daily Urinalysis, 12/08/2023: WBC: 93, urine leukocyte esterase: 3+ ABG, 12/09/2023: Metabolic acidosis WBC/HB/PLT/MCV, 12/09/2023: 8.5/7.4/350/92.4 PT/INR/PTT, 12/08/2023: 11.4/1.08 Na, 12/08/2023: 147, 12/09/2023: 146 TBI/AST/ALT/AP, 12/09/2023: 0.2/40/21/278 TG/HDL/LDL/HDL, 11/2023: 136/96/38/32 Vitamin B12, 11/2023: 2537 TSH, 11/2023: 17.87 YOLANDA, 12/10/2023: n the study done today no evidence of vegetation or masses were discernible. There is mild mitral valve regurgitation with mild anterior leaflet prolapse. No significant intracardiac lesion was discernible Echocardiogram, 11/18/2023: Normal left ventricular size and dimension. Normal left ventricular systolic function estimated ejection fraction 55%. There is a grade 1 diastolic dysfunction. Normal right ventricular size and dimension. Normal right ventricular systolic function. Mildly increased right ventricular systolic pressure 34 mm of mercury. Normal biatrial size and dimension. Normal aortic valve structure and function. Normal mitral valve structure and function. Normal tricuspid valve structure and function. The pulmonary valve is grossly normal. No pericardial effusion. Carotid Doppler, 11/21/2023: 1. No evidence of hemodynamically significant stenosis within the left carotid arterial system. 2. Antegrade flow within the left vertebral artery. 3. Cannot assess the right carotid arterial system due to central line artifact and overlying bandage. Extremity venous study, 12/09/2023: Thrombus in the LEFT cephalic and brachial vein. Thrombus in the RIGHT cephalic and basilic vein.If clinical concern/symptoms persist or worsen, short-interval follow-up study is suggested. Chest x-ray, 12/08/2023: 1. Endotracheal and gastric tubes in place as described. Satisfactory position. 2. Removal of right PICC and right IJ central venous catheter since prior. 3. Mild cardiomegaly and pulmonary vascular congestion. 4. Small opacity in the lateral right lung base which could reflect atelectasis or pneumonia MRI head, 11/21/2023: Signal abnormality in the bilateral cerebellum and right occipital lobe, as well as punctate foci in the right parietal lobe and centrum semiovale. Findings could represent regions of subacute ischemia due to embolic infarcts; however, underlying metastases or infection are not excluded. Recommend contrast-enhanced MRI vital signs Vital Sign Date Time Temp Pulse Resp B/P (MAP) Pulse Ox O2 Delivery O2 Flow Rate FiO2 12/12/23 19:19 109/44 12/12/23 18:45 69 24 100 30 12/12/23 18:45 98.8 209.8 12/12/23 08:00 Mechanical Ventilator+ Total Intake and Output 12/11/23 12/11/23 12/12/23 15:00 23:00 07:00 Intake Total 1792 ml 742 ml 1857 ml Output Total 2350 ml 750 ml Balance 1792 ml -1608 ml 1107 ml medications Current Medications Medications Dose Ordered Sig/Leslie Route Start Time Stop Time Status Last Admin Dose Admin Albuterol 2.5 mg Q4HR PRN NEB 12/08/23 19:30 12/12/23 18:37 2.5 MG Ipratropium [place] 0.5 mg Q4HR NEB 12/08/23 22:00 12/12/23 18:37 0.5 MG Ondansetron HCl 4 mg Q4HP PRN IV 12/08/23 19:30 Pantoprazole Sodium 40 mg DAILY IV 12/09/23 10:00 12/12/23 10:08 40 MG Fentanyl Citrate 250 ml @ 2.5 mls/hr Q24H IV 12/08/23 20:30 12/12/23 15:10 25 MLS/HR Hydralazine HCl 10 mg Q4HP PRN IV 12/09/23 05:30 12/09/23 05:50 10 MG Norepinephrine Bitartrate 250 ml @ 3.75 mls/hr Q24H IV 12/09/23 08:15 12/09/23 08:00 3.75 MLS/HR Midazolam HCl 50 ml @ 5 mls/hr Q10H IV 12/09/23 09:00 12/12/23 19:19 7 MLS/HR Sodium Chloride 10 ml QSHIFT@, IV 12/09/23 22:00 12/12/23 10:08 10 ML Vancomycin HCl 0 ml @ 0 mls/hr UD IV 12/09/23 19:00 Fluconazole 100 ml @ 100 mls/hr 10,11 IV 12/10/23 10:00 12/12/23 11:21 100 MLS/HR Enoxaparin Sodium 70 mg Q12HR SC 12/09/23 22:00 12/11/23 09:42 70 MG Acetaminophen 650 mg Q6HP PRN [place] 12/10/23 01:30 12/10/23 02:02 650 MG Cefepime HCl 50 ml @ 12.5 mls/hr Q12HR IV 12/10/23 14:45 12/12/23 10:08 12.5 MLS/HR Enteral Nutritional Formula 1,000 ml 30ML/HR GT 12/10/23 16:45 Amino Acids 0 ml @ 0 mls/hr PER PHARMACY IV 12/12/23 15:30 Diagnostic Test (Pha) 1 strip Q6HR 12/12/23 18:00 12/12/23 18:09 1 STRIP Insulin Human Regular FOLLOW SLIDING SCALE Q6HR SC 12/12/23 18:00 Dextrose 50 ml UD IV 12/12/23 15:45 Amino Acids/ Electrolytes/ Dextrose 1,000 ml @ 41 mls/hr DAILY@1999 IV 12/12/23 20:00 objective The patient is well-nourished and well-developed with no distress. The patient is intubated MENTAL STATUS: Not responsive to the surroundings, CRANIAL NERVES: Pupils are equal, round and reactive, small. There are corneal reflexes and doll's eyes phenomenon. No signs of facial weakness. There are gagging or coughing reflexes SENSATION: No responses to pain stimuli. MOTOR: Normal tone in the upper and lower extremity. Normal muscle bulk. No fasciculations. No spontaneous movement. REFLEXES: Deep tendon reflexes are symmetrical. No pathological reflexes. CEREBELLAR/COORDINATION: Deferred GAIT/STATION: deferred. laboratory and microbiology Laboratory Tests 12/12/23 03:36 Test 12/12/23 03:36 Range/Units Serum Glucose 271 H 74-106 mg/dL Problem List Abnormal MRI brain scan, likely the patient has multiple stroke Coma Metabolic encephalopathy Hypoxic encephalopathy Multiple strokes Ketoacidosis Bilateral upper extremity deep venous thrombosis Rule out subacute endocarditis Assessment/Plan Monitoring Supportive treatment ICU care Respiratory support/vent management Stabilize vitals IV antibiotics Lovenox 1 mg/kg subcutaneous b.i.d. Lipitor 20 mg daily Cardiology on case Infectious disease on case Consider trach and PEG More recommendation per clinical course This medical document was created using an electronic medical record system with MRO dictation system. Although this document has been carefully reviewed, there may still be some phonetic and typographical errors. These areas are purely typographical due to imperfections of the software programs, and do not reflect any compromise in the patient's medical care. Prognosis guarded Dietary Evaluation Review Comments: 1) If GI is accessible consider Glucerna 1.2 @ 55 ml/hr goal rate as tolerated 2) If pt remains NPO >7 days consider TPN to meet at least 75% of estimated needs 3) Advance pt diet when medically feasible to a CCHO 45g/Cardiac diet modified per FIELD SERVICE TECHNICIAN POULTRY recommendations 4) Continue current plan of care Expected Outcomes/Goals: 1) Pt to receive nutrition support within 7 days of NPO status 2) Pt diet to advance 3) F/U in 2-3 days Plan discussed with: Other Critical Care Time(min): 30 DREW FAGAN MD Dec 12, 2023 19:54
[2023-12-12] MEDS: AMINO ACID INFUSION IN D10W 1,000 ML IV SCH (20:00)
--- NOTE | 2023-12-12 22:52 | DVHPN2 ---
Consult Progress Note Date Seen: Dec 12, 2023 Subjective Patient reports: Feels better (sp egd, feeding tube placement) Objective vital signs Vital Sign Date Time Temp Pulse Resp B/P (MAP) Pulse Ox O2 Delivery O2 Flow Rate FiO2 12/12/23 22:00 74 12/12/23 22:00 30 12/12/23 20:32 24 119/45 (69) 100 12/12/23 20:00 Mechanical Ventilator+ 12/12/23 18:45 98.8 209.8 Total Intake and Output 12/11/23 12/11/23 12/12/23 15:00 23:00 07:00 Intake Total 1792 ml 742 ml 1857 ml Output Total 2350 ml 750 ml Balance 1792 ml -1608 ml 1107 ml medications Current Medications Medications Dose Ordered Sig/Leslie Route Start Time Stop Time Status Last Admin Dose Admin Albuterol 2.5 mg Q4HR PRN NEB 12/08/23 19:30 12/12/23 22:18 2.5 MG Ipratropium [place] 0.5 mg Q4HR NEB 12/08/23 22:00 12/12/23 22:18 0.5 MG Ondansetron HCl 4 mg Q4HP PRN IV 12/08/23 19:30 Pantoprazole Sodium 40 mg DAILY IV 12/09/23 10:00 12/12/23 10:08 40 MG Fentanyl Citrate 250 ml @ 2.5 mls/hr Q24H IV 12/08/23 20:30 12/12/23 15:10 25 MLS/HR Hydralazine HCl 10 mg Q4HP PRN IV 12/09/23 05:30 12/09/23 05:50 10 MG Norepinephrine Bitartrate 250 ml @ 3.75 mls/hr Q24H IV 12/09/23 08:15 12/09/23 08:00 3.75 MLS/HR Midazolam HCl 50 ml @ 5 mls/hr Q10H IV 12/09/23 09:00 12/12/23 19:19 7 MLS/HR Sodium Chloride 10 ml QSHIFT@10,22 IV 12/09/23 22:00 12/12/23 22:22 10 ML Vancomycin HCl 0 ml @ 0 mls/hr UD IV 12/09/23 19:00 Fluconazole 100 ml @ 100 mls/hr 10,11 IV 12/10/23 10:00 12/12/23 11:21 100 MLS/HR Enoxaparin Sodium 70 mg Q12HR SC 12/09/23 22:00 12/11/23 09:42 70 MG Acetaminophen 650 mg Q6HP PRN [place] 12/10/23 01:30 12/10/23 02:02 650 MG Cefepime HCl 50 ml @ 12.5 mls/hr Q12HR IV 12/10/23 14:45 12/12/23 22:22 12.5 MLS/HR Enteral Nutritional Formula 1,000 ml 30ML/HR GT 12/10/23 16:45 Amino Acids 0 ml @ 0 mls/hr PER PHARMACY IV 12/12/23 15:30 Diagnostic Test (Pha) 1 strip Q6HR 12/12/23 18:00 12/12/23 18:09 1 STRIP Insulin Human Regular FOLLOW SLIDING SCALE Q6HR SC 12/12/23 18:00 Dextrose 50 ml UD IV 12/12/23 15:45 Amino Acids/ Electrolytes/ Dextrose 1,000 ml @ 41 mls/hr DAILY@1999 IV 12/12/23 20:00 12/12/23 20:00 41 MLS/HR PHYSICAL EXAM: - GENERAL: Alert and oriented x 3. No acute distress. Well-nourished. - EYES: EOMI. Anicteric. - HENT: Moist mucous membranes. No scleral icterus. No cervical lymphadenopathy. - LUNGS: Clear to auscultation bilaterally. No accessory muscle use. - CARDIOVASCULAR: Regular rate and rhythm. No murmur. No JVD. - ABDOMEN: Soft, non-tender and non-distended. No palpable masses. - EXTREMITIES: No edema. Non-tender.?SKIN: No rashes or lesions. Warm. - NEUROLOGIC: No focal neurological deficits. CN II-XII grossly intact, but not individually tested. - PSYCHIATRIC: Cooperative. Appropriate mood and affect. laboratory and microbiology Laboratory Tests 12/12/23 03:36 Test 12/12/23 03:36 Range/Units Serum Glucose 271 H 74-106 mg/dL Problem List/Assessment/Plan Problems(with codes): (1) COPD (chronic obstructive pulmonary disease) (2) HTN (hypertension) (3) DKA (diabetic ketoacidosis) (4) Hospital-acquired pneumonia (5) Closed right hip fracture Problem List/Assessment/Plan Assessment/Plan Problems(with codes): (1) Hospital-acquired pneumonia (2) COPD (chronic obstructive pulmonary disease) (3) DKA (diabetic ketoacidosis) (4) HTN (hypertension) (5) Closed right hip fracture Plan/Recommendation ASSESSMENT AND PLAN: ID Problem List: - Aspiration pneumonia - Acute respiratory failure - Diabetic Ketoacidosis (DKA) - Sepsis due to UTI vs pneumonia - Acute Kidney Injury (YULIANA) - Hypernatremia - Transaminitis - Fatty liver - Uncontrolled diabetes (A1C of 11.7) - Hypothyroidism - Hypertension - COPD without exacerbation - Chronic kidney disease (CKD) Assessment: This is a 68-year-old female with a past medical history of diabetes, hypertension, recurrent DKA, hypothyroidism, obesity, COPD, neuropathies, mechanical falls, liver cirrhosis, and multiple joint replacements. The patient presented to the ED with acute loss of consciousness on 11/15/2023, subsequently diagnosed with DKA and an upper GI bleed. While at [facility], a CT and MRI of the head showed concerning lesions for metastasis vs. infectious process and gallbladder issues. Due to renal failure, these images were performed without contrast. An ERCP at [facility] showed no gallstones or common bile duct obstruction. Currently, the patient is reintubated on minimal sedation and receiving broad-spectrum antibiotics for presumed meningitis and other infections. 12/09: Patient has had a repeat abdomen, pelvis, chest Ct with contrast which shows no acute findings in the abdomen and pelvis. multifocal airspace in the lungs was shown. 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 Plan: - Recomend aquiring spudum cultures due to fevers and multifocal airspace disease - change cefepime to ceftriaxone, low overall suspicion for HAP at this time, more likely fevers are aspiration related - Continue vancomycin - Continue fluconazole. - Blood cultures monitoring. - Monitor respiratory status and adjust ventilator settings as necessary. - Monitor and manage blood glucose levels. - Supportive care as needed. Isolation Precautions: Standard Assessment and plan was discussed with the patient as written above. Plan is subject to change pending incorporation of new incoming information/diagnostics. Updates may be added as addendum at the bottom (OR TOP) of this note. Thank you for interesting consult. ID will continue to follow. Please contact Infectious disease for any questions or concerns. Nithin Carrasco M.D. [facility] Ph: ? Plan discussed with: Patient Dietary Evaluation Review Comments: 1) If GI is accessible consider Glucerna 1.2 @ 55 ml/hr goal rate as tolerated 2) If pt remains NPO >7 days consider TPN to meet at least 75% of estimated needs 3) Advance pt diet when medically feasible to a CCHO 45g/Cardiac diet modified per CERTIFIED ART THERAPIST recommendations 4) Continue current plan of care Expected Outcomes/Goals: 1) Pt to receive nutrition support within 7 days of NPO status 2) Pt diet to advance 3) F/U in 2-3 days NITHIN CARRASCO MD Dec 12, 2023 22:52
[2023-12-13] VITALS (104 sets, daily range): BP systolic 95–159; BP diastolic 36–103; PULSE 64–94; RESP 9–26; TEMP 97.5–101.3; O2SAT 93–100
[2023-12-13 04:22] LABS: Basophils # (auto) 0 10 ^3/uL (0-0.2); Basophils % (auto) 0.5 % (0.0-2.0); Eosinophils # (auto) 0.8 10 ^3/uL (0-0.8); Eosinophils % (auto) 8.9 % (0.0-7.0); Hemoglobin 8.5 g/dL (12.2-16.2); Lymphocytes # (auto) 1.5 10 ^3/uL (0.4-5.4); Lymphocytes % (auto) 16.6 % (10.0-50.0); Mean Corpuscular Hemoglobin 28.8 pg (28.0-32.0); Mean Corpuscular Hgb Conc. 31.6 g/dL (32.0-36.0); Mean Corpuscular Volume 91.1 fL (80.0-100.0); Monocytes # (auto) 0.3 10 ^3/uL (0-1.3); Monocytes % (auto) 2.8 % (0.0-12.0); Neutrophils # (auto) 6.6 10 ^3/uL (1.6-8.6); Neutrophils % (auto) 71.2 % (37.0-80.0); Nucleated Red Blood Cells % 0.1 %; Platelet Count (auto) 389 10^3/uL (140-450); Red Blood Cells 2.96 10^6/uL (4.0-5.20); Red Cell Distribution Width 16.9 % (11.8-14.3); White Blood Cell 9.3 10^3/uL (4.4-10.8)
[2023-12-13 04:38] LABS: Alanine Aminotransferase 20 U/L (7-40); Albumin 2.9 g/dL (3.2-4.8); Alkaline Phosphatase 196 U/L (46-116); Anion Gap 6 (5-15); Aspartate Aminotransferase 29 U/L (13-40); BUN/Creatinine Ratio 13.3 (10.0-20.0); Blood Urea Nitrogen 19 mg/dL (9-23); Calcium 9.2 mg/dL (8.7-10.4); Carbon Dioxide 18 mmol/L (20-30); Chloride 114 mmol/L (98-107); Glucose 192 mg/dL (74-106); Magnesium 2.3 mg/dL (1.6-2.6); Potassium 3.8 mmol/L (3.5-5.1); Sodium 138 mmol/L (136-145)
[2023-12-13 04:39] LABS: Bilirubin, Total < 0.2 mg/dL (0.2-1.0); Phosphorus 3.4 mg/dL (2.4-5.1); Total Protein 5.5 g/dL (5.7-8.2)
--- NOTE | 2023-12-13 04:40 | DVH ---
CHEST RADIOGRAPH Indication:Intubated Technique: Single frontal view of the chest was obtained Comparison: XY CHEST XRAY 1 VIEW on DOS: 12/12/23 FINDINGS: Lines and Tubes: The endotracheal tube terminates 1.6 cm above the martinez. Left upper extremity PICC with its tip terminating in the superior vena cava. Lungs: Pulmonary congestion, unchanged. Pleura: No effusion. No pneumothorax. Cardiomediastinal contours: Unremarkable Bones: No acute osseous abnormality. IMPRESSION: 1. Endotracheal tube terminates 1.6 cm above the martinez. 2. Mild pulmonary congestion, stable.
[2023-12-13] MEDS: BUPIVACAINE 0.25% INJ 50ML VIAL ONE (07:07)
[2023-12-13] MEDS: LIDOCAINE W/ EPINEPHRINE 1% 20ML VIAL ONE (07:07)
[2023-12-13 07:26] LABS: Base Excess -8.6 mmol/L (-2.0-3.0)
[2023-12-13] MEDS ORDERED: fentaNYL CITRATE 100 MCG/2 ML VL ONE ×2 (07:32→07:34)
[2023-12-13] MEDS ORDERED: MIDAZOLAM HCL 2MG/2ML 2ml VIAL (1mg/ml) ONE (07:33)
[2023-12-13] MEDS ORDERED: MEPERIDINE HCL (50 MG/ML) 1 ML VIAL ONE (07:33)
[2023-12-13] MEDS ORDERED: PROPOFOL 10 MG/ML 20 ML IV ONE (08:08)
[2023-12-13] MEDS: Glucerna 1.2 Cal 1Liter BOTTLE GT SCH (08:35)
--- NOTE | 2023-12-13 08:40 | DVHOP ---
DATE OF SURGERY: 12/13/2023 PREOPERATIVE DIAGNOSIS: Ventilator-dependent respiratory failure. POSTOPERATIVE DIAGNOSIS: Ventilator-dependent respiratory failure. SURGEON: Hitesh Chan MD SECURITY ANALYST: Corby Herrmann. ANESTHESIA: General endotracheal. ANESTHESIOLOGIST: Dr. Hardwick. PROCEDURE: Tracheostomy. DESCRIPTION OF PROCEDURE: Under general anesthesia with the patient's skin prepped and draped and infiltrated with 0.25% Marcaine with epinephrine, a vertical incision was made on the anterior surface of the neck through which the adipose tissue, strap muscles were and retracted laterally down onto the trachea. The trachea was exposed. The pretracheal fascia was incised. Hemostasis was meticulously accomplished. The thyroid gland was displaced superiorly. An incision was made between the third and fourth tracheal rings. This was dilated to a tracheotomy to accommodate a size #8 cuffed nonfenestrated tracheostomy tube, which was advanced through the tracheotomy as the anesthesiologist withdrew the endotracheal tube. Reaching the final position, the cuff of the tracheostomy was inflated with 6 mL of air. There was immediate recapture of carbon dioxide and return of normal gas exchanges. The tube was then secured with two 2-0 Prolene sutures and a circumferential umbilical tape. The patient remained in unchanged condition at the termination of procedure, left the operating room following an accurate needle and sponge count. An attempt at communicating with the patient's daughter was unsuccessful due to lack of answer on the phone number given. Hitesh Chan MD PF TID: [id number] RECEIPT: [id number]
[2023-12-13] MEDS: cefTRIAXone 2GM/50ML D5W 50 ML IV SCH (09:17)
--- NOTE | 2023-12-13 09:56 | DVHPN2 ---
Progress Note - Dictate Date Seen: Dec 13, 2023 Medical Necessity Reason Pt with a Central, PICC or Fol: Yes The following are medically ne: PICC Line, Carr Catheter Reason for carr catheter: Strict I&O Subjective Mr. Sanderson is a 68 years old female with a history of hypertension, diabetes, hypothyroidism, COPD, obesity, diabetic polyneuropathy, arthritis, liver cirrhosis, she was transferred back from the [facility] on 12/08/2023 after ERCP. I have seen examined the patient, I have talked to her nurse, status post tracheostomy, she does not respond to painful stimuli, She received PEG feeding tube insertion on 12/12/2023 She had tracheostomy on 12/13/2023 Versed 7 mg/hour, fentanyl 250 mcg/hour LLU Neurosurgery consultation: The lesions likely represents infarct, recommend Re attempting MRI spectrography for further evaluation Neuro consultation: Lumbar puncture was not recommended concerning possibility of herniation EEG, 11/28/2023: No seizure/nonconvulsive status epileptics (I did not see report) TTE, 11/29/23: EF: 70-75% (I did not see report) MRI brain (no report): signal abnormality in bilateral cerebellum and right occipital lobe, punctate foci in right parietal lobe and central semiovale- unable to differentiate subacute ischemia 2/2 MR effects versus infection versus metastasis. Recommend contrast enhanced MRI MRI, 12/05/23: No evidence of demyelinating disease (I did not see report) MRI orbital, face, neck ww 12/05/2023, comparison: MR brain 11/28/2023: No evidence of mucormycosis infection. Multiple irregularly enhancing cerebellar and right occipital lesions were better evaluated on recent brain MRI MRI C-spine, 12/05/2023: No evidence of demyelinating disease in the cervical spine. Moderate degenerative changes. Grade 1 anterolisthesis of C7 on T1 MRI lumbar spine wwo, 12/05/2023: No evidence of demyelinating disease in the lumbar spine. Degenerative changes and grade 1 anterolisthesis of L4 and L5. Mild central spinal stenosis at L4-5. [id number] multilevel bilateral foraminal stenosis as described above MRI spectroscopy 12/05/2023: Cerebellar lesion showing moderately elevated Cho, reduced ZINA, large lipid peaks, and additional tics suspicious for amino acids and alanine. The alanine and amino acids are suspicious for an infectious process Treatment according to discharge note: ASA 81mg Qd, Lipitor 20 mg daily Urinalysis, 12/08/2023: WBC: 93, urine leukocyte esterase: 3+ ABG, 12/09/2023: Metabolic acidosis WBC/HB/PLT/MCV, 12/09/2023: 8.5/7.4/350/92.4 PT/INR/PTT, 12/08/2023: 11.4/1.08 Na, 12/08/2023: 147, 12/09/2023: 146 TBI/AST/ALT/AP, 12/09/2023: 0.2/40/21/278 TG/HDL/LDL/HDL, 11/2023: 136/96/38/32 Vitamin B12, 11/2023: 2537 TSH, 11/2023: 17.87 YOLANDA, 12/10/2023: n the study done today no evidence of vegetation or masses were discernible. There is mild mitral valve regurgitation with mild anterior leaflet prolapse. No significant intracardiac lesion was discernible Echocardiogram, 11/18/2023: Normal left ventricular size and dimension. Normal left ventricular systolic function estimated ejection fraction 55%. There is a grade 1 diastolic dysfunction. Normal right ventricular size and dimension. Normal right ventricular systolic function. Mildly increased right ventricular systolic pressure 34 mm of mercury. Normal biatrial size and dimension. Normal aortic valve structure and function. Normal mitral valve structure and function. Normal tricuspid valve structure and function. The pulmonary valve is grossly normal. No pericardial effusion. Carotid Doppler, 11/21/2023: 1. No evidence of hemodynamically significant stenosis within the left carotid arterial system. 2. Antegrade flow within the left vertebral artery. 3. Cannot assess the right carotid arterial system due to central line artifact and overlying bandage. Extremity venous study, 12/09/2023: Thrombus in the LEFT cephalic and brachial vein. Thrombus in the RIGHT cephalic and basilic vein.If clinical concern/symptoms persist or worsen, short-interval follow-up study is suggested. Chest x-ray, 12/08/2023: 1. Endotracheal and gastric tubes in place as described. Satisfactory position. 2. Removal of right PICC and right IJ central venous catheter since prior. 3. Mild cardiomegaly and pulmonary vascular congestion. 4. Small opacity in the lateral right lung base which could reflect atelectasis or pneumonia MRI head, 11/21/2023: Signal abnormality in the bilateral cerebellum and right occipital lobe, as well as punctate foci in the right parietal lobe and centrum semiovale. Findings could represent regions of subacute ischemia due to embolic infarcts; however, underlying metastases or infection are not excluded. Recommend contrast-enhanced MRI vital signs Vital Sign Date Time Temp Pulse Resp B/P (MAP) Pulse Ox O2 Delivery O2 Flow Rate FiO2 12/13/23 08:33 87 24 149/57 (87) 94 30 12/13/23 06:51 101.3 12/12/23 20:00 Mechanical Ventilator+ Total Intake and Output 12/12/23 12/12/23 12/13/23 15:00 23:00 07:00 Intake Total 1709.0 ml 548 ml 511.8 ml Output Total 1500 ml 1075 ml Balance 1709.0 ml -952 ml -563.2 ml medications Current Medications Medications Dose Ordered Sig/Leslie Route Start Time Stop Time Status Last Admin Dose Admin Albuterol 2.5 mg Q4HR PRN NEB 12/08/23 19:30 12/13/23 06:06 2.5 MG Ipratropium [place] 0.5 mg Q4HR NEB 12/08/23 22:00 12/13/23 06:06 0.5 MG Ondansetron HCl 4 mg Q4HP PRN IV 12/08/23 19:30 Pantoprazole Sodium 40 mg DAILY IV 12/09/23 10:00 12/13/23 09:51 40 MG Fentanyl Citrate 250 ml @ 2.5 mls/hr Q24H IV 12/08/23 20:30 12/13/23 09:25 27.5 MLS/HR Hydralazine HCl 10 mg Q4HP PRN IV 12/09/23 05:30 12/09/23 05:50 10 MG Norepinephrine Bitartrate 250 ml @ 3.75 mls/hr Q24H IV 12/09/23 08:15 12/09/23 08:00 3.75 MLS/HR Midazolam HCl 50 ml @ 5 mls/hr Q10H IV 12/09/23 09:00 12/13/23 09:23 7 MLS/HR Sodium Chloride 10 ml QSHIFT@,22 IV 12/09/23 22:00 12/13/23 09:51 10 ML Vancomycin HCl 0 ml @ 0 mls/hr UD IV 12/09/23 19:00 Fluconazole 100 ml @ 100 mls/hr 10,11 IV 12/10/23 10:00 12/13/23 09:51 100 MLS/HR Enoxaparin Sodium 70 mg Q12HR SC 12/09/23 22:00 12/11/23 09:42 70 MG Acetaminophen 650 mg Q6HP PRN OR 12/10/23 01:30 12/13/23 06:51 650 MG Enteral Nutritional Formula 1,000 ml 30ML/HR GT 12/10/23 16:45 Amino Acids 0 ml @ 0 mls/hr PER PHARMACY IV 12/12/23 15:30 Diagnostic Test (Pha) 1 strip Q6HR 12/12/23 18:00 12/13/23 05:55 1 STRIP Insulin Human Regular FOLLOW SLIDING SCALE Q6HR SC 12/12/23 18:00 12/13/23 00:00 8 UNITS Dextrose 50 ml UD IV 12/12/23 15:45 Amino Acids/ Electrolytes/ Dextrose 1,000 ml @ 41 mls/hr DAILY@1999 IV 12/12/23 20:00 12/12/23 20:00 41 MLS/HR Ceftriaxone Sodium/Dextrose 50 ml @ 50 mls/hr Q12HR@ IV 12/13/23 09:00 12/13/23 09:17 50 MLS/HR objective The patient is well-nourished and well-developed with no distress. MENTAL STATUS: Subjective CRANIAL NERVES: Pupils are equal, round and reactive, small. There are corneal reflexes and doll's eyes phenomenon. No signs of facial weakness. There are gagging or coughing reflexes SENSATION: No responses to pain stimuli. MOTOR: Normal tone in the upper and lower extremity. Normal muscle bulk. No fasciculations. No spontaneous movement. REFLEXES: Deep tendon reflexes are symmetrical. No pathological reflexes. CEREBELLAR/COORDINATION: Deferred GAIT/STATION: deferred. laboratory and microbiology Laboratory Tests 12/13/23 03:27 Test 12/13/23 03:27 Range/Units Serum Glucose 192 H 74-106 mg/dL Problem List Abnormal MRI brain scan, likely the patient has multiple stroke Coma Metabolic encephalopathy Hypoxic encephalopathy Multiple strokes Ketoacidosis Bilateral upper extremity deep venous thrombosis Rule out subacute endocarditis Status post tracheostomy Status post PEG tube Assessment/Plan Monitoring Supportive treatment ICU care Respiratory support Stabilize vitals IV antibiotics Lovenox 1 mg/kg subcutaneous b.i.d. Lipitor 20 mg daily Tube feeding Cardiology on case Infectious disease on case More recommendation per clinical course This medical document was created using an electronic medical record system with [employer] dictation system. Although this document has been carefully reviewed, there may still be some phonetic and typographical errors. These areas are purely typographical due to imperfections of the software programs, and do not reflect any compromise in the patient's medical care. Prognosis poor Dietary Evaluation Review Comments: 1) If GI is accessible consider Glucerna 1.2 @ 55 ml/hr goal rate as tolerated 2) If pt remains NPO >7 days consider TPN to meet at least 75% of estimated needs 3) Advance pt diet when medically feasible to a CCHO 45g/Cardiac diet modified per ELECTROCARDIOGRAPH OPERATOR recommendations 4) Continue current plan of care Expected Outcomes/Goals: 1) Pt to receive nutrition support within 7 days of NPO status 2) Pt diet to advance 3) F/U in 2-3 days Plan discussed with: Other Critical Care Time(min): 30 DREW FAGAN MD Dec 13, 2023 09:56
--- NOTE | 2023-12-13 10:14 | DVH ---
CHEST RADIOGRAPH Indication:TRACHEOSTOMY Technique: Single frontal view of the chest was obtained Comparison: XY CHEST XRAY 1 VIEW on DOS: 12/13/23, XY CHEST XRAY 1 VIEW on DOS: 12/12/23, XY CHEST PORT ABLE on DOS: 12/11/23, XY CHEST PORTABLE on DOS: 12/10/23, XY CHEST PORTABLE on DOS: 12/10/23 FINDINGS: Lines and Tubes: Tracheostomy tube noted overlying the medial column. Left PICC with tip in the SVC. Lungs: Stable pulmonary congestion. Pleura: No effusion. No pneumothorax. Cardiomediastinal contours: Unremarkable Bones: No acute osseous abnormality. IMPRESSION: Status post tracheostomy. Stable pulmonary congestion.
[2023-12-13 13:51] LABS: Free T3 0.79 pg/mL (2.3-4.2); Free T4 (Free Thyroxine) 0.48 ng/dL (0.89-1.76)
[2023-12-13] MEDS: FUROSEMIDE 20 MG/2 ML VIAL IV ONE (15:04)
--- NOTE | 2023-12-13 17:13 | DVHPN2 ---
Progress Note - Dictate Date Seen: Dec 13, 2023 Medical Necessity Reason Pt with a Central, PICC or Fol: Yes The following are medically ne: PICC Line, Carr Catheter Reason for carr catheter: Strict I&O Subjective patient seen earlier today. Urine volumes nonoliguric. vital signs Vital Sign Date Time Temp Pulse Resp B/P (MAP) Pulse Ox O2 Delivery O2 Flow Rate FiO2 12/13/23 16:15 71 24 101/43 (62) 100 30 12/13/23 16:00 98.4 209.1 12/13/23 08:00 Mechanical Ventilator+ Total Intake and Output 12/12/23 12/12/23 12/13/23 15:00 23:00 07:00 Intake Total 1709.0 ml 548 ml 587.3 ml Output Total 1500 ml 1075 ml Balance 1709.0 ml -952 ml -487.7 ml medications Current Medications Medications Dose Ordered Sig/Leslie Route Start Time Stop Time Status Last Admin Dose Admin Albuterol 2.5 mg Q4HR PRN NEB 12/08/23 19:30 12/13/23 13:50 2.5 MG Ipratropium [place] 0.5 mg Q4HR NEB 12/08/23 22:00 12/13/23 13:50 0.5 MG Ondansetron HCl 4 mg Q4HP PRN IV 12/08/23 19:30 Pantoprazole Sodium 40 mg DAILY IV 12/09/23 10:00 12/13/23 09:51 40 MG Fentanyl Citrate 250 ml @ 2.5 mls/hr Q24H IV 12/08/23 20:30 12/13/23 09:25 27.5 MLS/HR Hydralazine HCl 10 mg Q4HP PRN IV 12/09/23 05:30 12/09/23 05:50 10 MG Norepinephrine Bitartrate 250 ml @ 3.75 mls/hr Q24H IV 12/09/23 08:15 12/09/23 08:00 3.75 MLS/HR Midazolam HCl 50 ml @ 5 mls/hr Q10H IV 12/09/23 09:00 12/13/23 09:23 7 MLS/HR Sodium Chloride 10 ml QSHIFT@ IV 12/09/23 22:00 12/13/23 09:51 10 ML Vancomycin HCl 0 ml @ 0 mls/hr UD IV 12/09/23 19:00 Fluconazole 100 ml @ 100 mls/hr 10,11 IV 12/10/23 10:00 12/13/23 11:02 100 MLS/HR Enoxaparin Sodium 70 mg Q12HR SC 12/09/23 22:00 12/11/23 09:42 70 MG Acetaminophen 650 mg Q6HP PRN ND 12/10/23 01:30 12/13/23 06:51 650 MG Enteral Nutritional Formula 1,000 ml 30ML/HR GT 12/10/23 16:45 12/13/23 08:35 1,000 ML Amino Acids 0 ml @ 0 mls/hr PER PHARMACY IV 12/12/23 15:30 Diagnostic Test (Pha) 1 strip Q6HR 12/12/23 18:00 12/13/23 11:57 1 STRIP Insulin Human Regular FOLLOW SLIDING SCALE Q6HR SC 12/12/23 18:00 12/13/23 12:06 12 UNITS Dextrose 50 ml UD IV 12/12/23 15:45 Amino Acids/ Electrolytes/ Dextrose 1,000 ml @ 41 mls/hr DAILY@1999 IV 12/12/23 20:00 12/12/23 20:00 41 MLS/HR Ceftriaxone Sodium/Dextrose 50 ml @ 50 mls/hr Q12HR@ IV 12/13/23 09:00 12/13/23 09:17 50 MLS/HR Furosemide 20 mg DAILY IV 12/14/23 10:00 objective gen: nad lungs: cta cvs: no rub ext; + edema laboratory and microbiology Laboratory Tests 12/13/23 03:27 Test 12/13/23 03:27 Range/Units Serum Glucose 192 H 74-106 mg/dL Assessment/Plan YULIANA superimposed on 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 - We will continue follow-up closely along with you. Dietary Evaluation Review Comments: 1) If GI is accessible consider Glucerna 1.2 @ 55 ml/hr goal rate as tolerated 2) If pt remains NPO >7 days consider TPN to meet at least 75% of estimated needs 3) Advance pt diet when medically feasible to a [facility] 45g/Cardiac diet modified per FORENSIC MEDICAL EXAMINER recommendations 4) Continue current plan of care Expected Outcomes/Goals: 1) Pt to receive nutrition support within 7 days of NPO status 2) Pt diet to advance 3) F/U in 2-3 days Plan discussed with: MORENA Hernandez MD Dec 13, 2023 17:13
--- NOTE | 2023-12-13 21:02 | DVHPNRES ---
Progress Note Date Seen: Dec 13, 2023 Resident Creating Document: DANELLE MENDIETA RESIDENT Has the PT tested + for MRSA If YES, has PT been informed?: No Medical Necessity Reason Pt with a Central, PICC or Fol: Yes The following are medically ne: PICC Line, Carr Catheter Reason for carr catheter: Strict I&O Subjective Review of Systems This is a 68-year-old female with past medical history of hypertension, diabetes mellitus type 2, hypothyroidism, COPD, obesity, diabetic polyneuropathy, liver cirrhosis, right knee replacement, multiple admissions for DKA. The patient was initially seen at [facility] on 11/16/2023 where he was intubated and transferred to our facility. At our facility he was treated for DKA and was found to have space occupying lesions in the brain (metastasis/infection/stroke) MRI of the head was done with no conclusive findings at that time. CT scan of the abdomen and pelvis at that time showed dilation of common bile duct and GI recommended ERCP/endoscopic ultrasound so patient was transferred on 11/26/2023 to [place]. ERCP and ultrasound was performed showing no obstruction either malignancy or stone at that time. Neurosurgery at [place] evaluated MRI results and stated that could be due to infarcts. Neurologist was against lumbar puncture due to increased risk of herniation. patient was extubated on November 28, 2023 and was transferred step-down unit with 2 L of nasal cannula but lately on December 02 patient became shortness of breath tachypneic required reintubation. The patient had sepsis of unknown etiology and they thought it might be related to the brain lesions so patient was started on broad-spectrum IV antibiotics with MRSA coverage. Patient was readmitted back at [facility]. Patient seen and examined at bedside. Patient is currently on sedation with midazolam 7mg/hr, fentanyl 275mcg/ hr not requiring any vasopressor at this time. The patient is currently intubated on mechanical ventilation on the following parameters: VT 450, RR 24, FiO2 30%, PEEP 5, saturating 99%. Patient is also on enoxaparin 70 mg q.12 most likely due to bilateral upper venous ultrasound showing left brachial vein DVT. Patient is currently on Clinimix 41 cc/hour but was started on enteral nutrition at 15 cc/hour we are currently doing transitioned to fully enteral nutrition. MRI of the head with contrast was hold today due to YULIANA. We will keep monitoring kidney function and wait for Cr improvement. meanwhile will decrease sedation and evaluate mental status clinically. ROS unable to be obtained due to patient current status intubated. Objective vital signs Vital Sign Date Time Temp Pulse Resp B/P (MAP) Pulse Ox O2 Delivery O2 Flow Rate FiO2 12/13/23 18:49 77 24 118/52 (74) 100 30 12/13/23 18:45 99.0 210.2 12/13/23 08:00 Mechanical Ventilator+ Total Intake and Output 12/12/23 12/12/23 12/13/23 15:00 23:00 07:00 Intake Total 1709.0 ml 548 ml 587.3 ml Output Total 1500 ml 1075 ml Balance 1709.0 ml -952 ml -487.7 ml medications Current Medications Medications Dose Ordered Sig/Leslie Route Start Time Stop Time Status Last Admin Dose Admin Albuterol 2.5 mg Q4HR PRN NEB 12/08/23 19:30 12/13/23 18:49 2.5 MG Ipratropium [place] 0.5 mg Q4HR NEB 12/08/23 22:00 12/13/23 18:49 0.5 MG Ondansetron HCl 4 mg Q4HP PRN IV 12/08/23 19:30 Pantoprazole Sodium 40 mg DAILY IV 12/09/23 10:00 12/13/23 09:51 40 MG Fentanyl Citrate 250 ml @ 2.5 mls/hr Q24H IV 12/08/23 20:30 12/13/23 18:37 27.5 MLS/HR Hydralazine HCl 10 mg Q4HP PRN IV 12/09/23 05:30 12/09/23 05:50 10 MG Norepinephrine Bitartrate 250 ml @ 3.75 mls/hr Q24H IV 12/09/23 08:15 12/09/23 08:00 3.75 MLS/HR Midazolam HCl 50 ml @ 5 mls/hr Q10H IV 12/09/23 09:00 12/13/23 17:11 7 MLS/HR Sodium Chloride 10 ml QSHIFT@10,22 IV 12/09/23 22:00 12/13/23 09:51 10 ML Vancomycin HCl 0 ml @ 0 mls/hr UD IV 12/09/23 19:00 Fluconazole 100 ml @ 100 mls/hr 10,11 IV 12/10/23 10:00 12/13/23 11:02 100 MLS/HR Enoxaparin Sodium 70 mg Q12HR SC 12/09/23 22:00 12/11/23 09:42 70 MG Acetaminophen [address] 12/10/23 01:30 12/13/23 06:51 650 MG Enteral Nutritional Formula 1,000 ml 30ML/HR GT 12/10/23 16:45 12/13/23 08:35 1,000 ML Amino Acids 0 ml @ 0 mls/hr PER PHARMACY IV 12/12/23 15:30 Diagnostic Test (Pha) 1 strip Q6HR 12/12/23 18:00 12/13/23 18:20 1 STRIP Insulin Human Regular FOLLOW SLIDING SCALE Q6HR SC 12/12/23 18:00 12/13/23 18:20 2 UNITS Dextrose 50 ml UD IV 12/12/23 15:45 Amino Acids/ Electrolytes/ Dextrose 1,000 ml @ 41 mls/hr DAILY@1999 IV 12/12/23 20:00 12/12/23 20:00 41 MLS/HR Ceftriaxone Sodium/Dextrose 50 ml @ 50 mls/hr Q12HR@, IV 12/13/23 09:00 12/13/23 09:17 50 MLS/HR Furosemide 20 mg DAILY IV 12/14/23 10:00 Examination Physical Examination General: Patient sedated and intubated on mechanical ventilation: VT 450, RR 24, FiO2 30%, PEEP 5, saturating 99% HEENT: Normocephalic, atraumatic, moist mucous membranes Respiratory/pulmonary: Bilateral lung sounds grossly clear, no crackles or wheezes at this time. Cardiovascular: Normal heart sounds S1 and S2 with no associated murmurs Abdomen: Abdomen nondistended, there is no pain to palpation in any of the abdominal quadrants, no palpable masses. Extremities: Bilateral upper extremities are edematous and bilateral lower extremity have 1+ pitting edema bilaterally. Peripheral Pulses: 3+ Radial (R). 3+ Radial (L). 3+ Dorsalis pedis (R). 3+ Dorsalis pedis(L) Skin: No rashes or pruritus, there is no sacral edema present at this time. Neurological: Sedated, RASS -3, bilateral pupils not reactive to light maybe in the setting of high-dose fentanyl laboratory and microbiology Laboratory Tests 12/13/23 03:27 Test 12/13/23 03:27 Range/Units Serum Glucose 192 H 74-106 mg/dL Microbiology Date/Time Source Procedure Growth Status 12/09/23 09:28 Blood Blood Culture - Preliminary NO GROWTH AFTER 72 HOURS OF INCUBATION. Resulted 12/08/23 19:00 Nose MRSA Screen - Final Complete 12/08/23 19:00 Urine - Catheterized Urine Culture - Final Complete 12/08/23 19:00 Sputum Gram Stain - Final Complete 12/08/23 19:00 Sputum Respiratory Culture - Final Complete Problem List/Assessment/Plan Problem List/Assessment/Plan Assessment/Plan Neurology Acute metabolic encephalopathy likely in the setting of sepsis versus brain occupying lesions (metastasis/infection/stroke) -patient has a previous MRI at this facility showing no conclusive diagnosis, At [facility] did not got any conclusive diagnosis as well. -failed extubation at [place] -CT scan of the head performed at this visit show hypodensities in bilateral cerebellum with no acute intracranial abnormalities. -MRI with contrast of the brain should be performed to clarify etiology of brain occupying lesions. Study was hold today due to YULIANA, we will wait for renal function recovery, meanwhile we will try to decrease sedation and assess neurologic response clinically. Brain lessions on MRI w/o contrast, unknown etiology -we will perform brain MRI with contrast once kidney function recovers. -lab workup performed at [place] was negative for blastomycosis, tuberculosis, cryptococcosis Sedation -currently on sedation with midazolam 7mg/hr, fentanyl 275mcg/ hr not requiring any vasopressor at this time. Cardiology Acute on chronic diastolic heart failure (HFpEF 55%) -currently on furosemide 20 mg IV q.d. -Both echocardiograms TTE YOLANDA were performed showing no vegetations or cardiac valve abn. Ruled out endocarditis -YOLANDA performed on 12/10/2023 showed normal cardiac valves with no vegetations at that time. Primary hypertension -blood pressure currently running on the lower side, no meds needed at this time Respiratory S/P tracheostomy performed today in the morning (12/13/23) -still on mechanical ventilator VT 450, RR 24, FiO2 30%, PEEP 5, saturating 99% Acute hypoxic respiratory failure likely in the setting of aspiration pneumonia -continue on IV vancomycin, ceftriaxone and fluconazole. Previously patient was receiving cefepime, ampicillin, metronidazole. -on mech vent as stated above -CT of the chest/abdomen and pelvis showed no acute findings in the abdominal pelvics but showed multifocal airspace disease and cardiomegaly -chest x-ray performed today showed stable pulmonary congestion right lower lobe infiltration can not be excluded -Will come out of sedation, evaluate mental response clinically and eventually try CPAP trial. -ABG this morning showed a pH of 7.31, pCO2 of 33.8, HCO3 of 16.8 and PaO2 of 79.8 consistent with metabolic acidosis with respiratory compensation calculated by tejada formula. Sepsis in the setting of aspiration pneumonia -continue IV antibiotics as described above Infectious disease Sepsis likely due to aspiration pneumonia and UTI -continue IV antibiotics as stated above UTI UA suggestive of UTI but last urine culture showed no growth Possible brain abscess/infectious occupying lesions -currently on vancomycin, ceftriaxone and fluconazole Endocrinology Type 2 diabetes mellitus, DKA on previous admissions -Continue on sliding scale insulin -Not on Lantus at this time Diabetic polyneuropathy -Patient sedated, monitor Hypothyroidism -Last TSH was 17.87 -today, ordered free T4 and T3 which came back 0.48 and 0.79 respectively -Will start levothyroxine IV low dose at 50mcg Gastroenterology Acute transaminitis, resolved -AST 29, ALT 20 -Continue monitoring Cholelithiasis w/o cholecystitis -CT abdomen showed cholelithiasis w/o findings suggestive of cholecystitis Hematology Superficial thrombophlebitis of right cephalic and basilic veins -no need for anticoagulation DVT of the left brachial vein -continue on enoxaparin 1 milligram/kilogram q.12 Nutrition -patient is currently on Clinimix 41 cc/hour and enteral nutrition at 15 cc/hour. Currently doing transition from Clinimix to fully enteral nutrition. Lines: Midline of right upper arm placed on 12/08/2023 PICC line on left upper arm placed on 12/09/2023 Goals of care discussed with medical team Critical time spent> 81min Plan discussed with Dr. Razo Plan discussed with: Other Dietary Evaluation Review Comments: 1) If GI is accessible consider Glucerna 1.2 @ 55 ml/hr goal rate as tolerated 2) If pt remains NPO >7 days consider TPN to meet at least 75% of estimated needs 3) Advance pt diet when medically feasible to a CCHO 45g/Cardiac diet modified per STERILE PROCESS COORDINATOR recommendations 4) Continue current plan of care Expected Outcomes/Goals: 1) Pt to receive nutrition support within 7 days of NPO status 2) Pt diet to advance 3) F/U in 2-3 days Date of Service: Dec 13, 2023 Billing Provider: FREEDOM RAZO MD Common Visit Codes: [id number] CARE 30-74 MIN, [id number] CARE-EACH +30MIN DANELLE MENDIETA RESIDENT Dec 13, 2023 21:02 FREEDOM RAZO MD Dec 14, 2023 15:37
[2023-12-13] MEDS ORDERED: METOCLOPRAMIDE HCL 5MG/ml INJ 2ml VIAL IV PRN (21:45)
--- NOTE | 2023-12-13 23:16 | DVHPN2 ---
Consult Progress Note Date Seen: Dec 13, 2023 Subjective Patient reports: Feels better (sp tracheostomy) Objective vital signs Vital Sign Date Time Temp Pulse Resp B/P (MAP) Pulse Ox O2 Delivery O2 Flow Rate FiO2 12/13/23 22:30 99.3 65 24 111/46 (67) 100 210.7 12/13/23 22:20 30 12/13/23 08:00 Mechanical Ventilator+ Total Intake and Output 12/12/23 12/12/23 12/13/23 15:00 23:00 07:00 Intake Total 1709.0 ml 548 ml 587.3 ml Output Total 1500 ml 1075 ml Balance 1709.0 ml -952 ml -487.7 ml medications Current Medications Medications Dose Ordered Sig/Leslie Route Start Time Stop Time Status Last Admin Dose Admin Albuterol 2.5 mg Q4HR PRN NEB 12/08/23 19:30 12/13/23 22:20 2.5 MG Ipratropium [place] 0.5 mg Q4HR NEB 12/08/23 22:00 12/13/23 22:20 0.5 MG Ondansetron HCl 4 mg Q4HP PRN IV 12/08/23 19:30 Pantoprazole Sodium 40 mg DAILY IV 12/09/23 10:00 12/13/23 09:51 40 MG Fentanyl Citrate 250 ml @ 2.5 mls/hr Q24H IV 12/08/23 20:30 12/13/23 18:37 27.5 MLS/HR Hydralazine HCl 10 mg Q4HP PRN IV 12/09/23 05:30 12/09/23 05:50 10 MG Norepinephrine Bitartrate 250 ml @ 3.75 mls/hr Q24H IV 12/09/23 08:15 12/09/23 08:00 3.75 MLS/HR Midazolam HCl 50 ml @ 5 mls/hr Q10H IV 12/09/23 09:00 12/13/23 17:11 7 MLS/HR Sodium Chloride 10 ml QSHIFT@10,22 IV 12/09/23 22:00 12/13/23 22:28 10 ML Vancomycin HCl 0 ml @ 0 mls/hr UD IV 12/09/23 19:00 Fluconazole 100 ml @ 100 mls/hr 10,11 IV 12/10/23 10:00 12/13/23 11:02 100 MLS/HR Enoxaparin Sodium 70 mg Q12HR SC 12/09/23 22:00 12/11/23 09:42 70 MG Acetaminophen 650 mg Q6HP PRN CA 12/10/23 01:30 12/13/23 06:51 650 MG Enteral Nutritional Formula 1,000 ml 30ML/HR GT 12/10/23 16:45 12/13/23 08:35 1,000 ML Amino Acids 0 ml @ 0 mls/hr PER PHARMACY IV 12/12/23 15:30 Diagnostic Test (Pha) 1 strip Q6HR 12/12/23 18:00 12/13/23 18:20 1 STRIP Insulin Human Regular FOLLOW SLIDING SCALE Q6HR SC 12/12/23 18:00 12/13/23 18:20 2 UNITS Dextrose 50 ml UD IV 12/12/23 15:45 Amino Acids/ Electrolytes/ Dextrose 1,000 ml @ 41 mls/hr DAILY@1999 IV 12/12/23 20:00 12/13/23 20:43 41 MLS/HR Ceftriaxone Sodium/Dextrose 50 ml @ 50 mls/hr Q12HR@ IV 12/13/23 09:00 12/13/23 21:01 50 MLS/HR Furosemide 20 mg DAILY IV 12/14/23 10:00 Levothyroxine Sodium 50 mcg DAILY IV 12/14/23 10:00 Metoclopramide HCl 5 mg Q6HPRN PRN IV 12/13/23 21:45 PHYSICAL EXAM: - GENERAL: Alert and oriented x 3. No acute distress. Well-nourished. ? - EYES: EOMI. Anicteric. ?- HENT: Moist mucous membranes. No scleral icterus. No cervical lymphadenopathy. ?- LUNGS: Clear to auscultation bilaterally. No accessory muscle use.? - CARDIOVASCULAR: Regular rate and rhythm. No murmur. No JVD.? - ABDOMEN: Soft, non-tender and non-distended. No palpable masses.? - EXTREMITIES: No edema. Non-tender.?SKIN: No rashes or lesions. Warm. ? - NEUROLOGIC: No focal neurological deficits. CN II-XII grossly intact, but not individually tested.? - PSYCHIATRIC: Cooperative. Appropriate mood and affect. laboratory and microbiology Laboratory Tests 12/13/23 03:27 Test 12/13/23 03:27 Range/Units Serum Glucose 192 H 74-106 mg/dL Problem List/Assessment/Plan Problem List/Assessment/Plan Assessment/Plan Problems(with codes): (1) Hospital-acquired pneumonia (2) COPD (chronic obstructive pulmonary disease) (3) DKA (diabetic ketoacidosis) (4) HTN (hypertension) (5) Closed right hip fracture Plan/Recommendation ASSESSMENT AND PLAN: ID Problem List: - Aspiration pneumonia - Acute respiratory failure - Diabetic Ketoacidosis (DKA) - Sepsis due to UTI vs pneumonia - Acute Kidney Injury ([place]ULIANA) - Hypernatremia - Transaminitis - Fatty liver - Uncontrolled diabetes (A1C of 11.7) - Hypothyroidism - Hypertension - COPD without exacerbation - Chronic kidney disease (CKD) Assessment: This is a 68-year-old female with a past medical history of diabetes, hypertension, recurrent DKA, hypothyroidism, obesity, COPD, neuropathies, mechanical falls, liver cirrhosis, and multiple joint replacements. The patient presented to the ED with acute loss of consciousness on 11/15/2023, subsequently diagnosed with DKA and an upper GI bleed. While at [facility], a CT and MRI of the head showed concerning lesions for metastasis vs. infectious process and gallbladder issues. Due to renal failure, these images were performed without contrast. An ERCP at [facility] showed no gallstones or common bile duct obstruction. Currently, the patient is reintubated on minimal sedation and receiving broad-spectrum antibiotics for presumed meningitis and other infections. 12/09: Patient has had a repeat abdomen, pelvis, chest Ct with contrast which shows no acute findings in the abdomen and pelvis. multifocal airspace in the lungs was shown. 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 Plan: - Recomend aquiring spudum cultures due to fevers and multifocal airspace disease - continue ceftriaxone complete a 3 weeks course, eot 12/24/23 per OSH records - Continue vancomycin, complete a 3 weeks course, eot 12/24/23 per OSH records - Continue fluconazole. can stop if serologies for fungal infection are negative - Blood cultures monitoring. - Monitor respiratory status and adjust ventilator settings as necessary. - Monitor and manage blood glucose levels. - Supportive care as needed. Isolation Precautions: Standard Assessment and plan was discussed with the patient as written above. Plan is subject to change pending incorporation of new incoming information/diagnostics. Updates may be added as addendum at the bottom (OR TOP) of this note. Thank you for interesting consult. ID will continue to follow. Please contact Infectious disease for any questions or concerns. Nithin Carrasco M.D. [facility] Ph: ? Plan discussed with: Patient Dietary Evaluation Review Comments: 1) If GI is accessible consider Glucerna 1.2 @ 55 ml/hr goal rate as tolerated 2) If pt remains NPO >7 days consider TPN to meet at least 75% of estimated needs 3) Advance pt diet when medically feasible to a CCHO 45g/Cardiac diet modified per SECURITY PATROL DRIVER recommendations 4) Continue current plan of care Expected Outcomes/Goals: 1) Pt to receive nutrition support within 7 days of NPO status 2) Pt diet to advance 3) F/U in 2-3 days NITHIN CARRASCO MD Dec 13, 2023 23:16
[2023-12-14] VITALS (106 sets, daily range): BP systolic 107–155; BP diastolic 40–71; PULSE 68–86; RESP 11–26; TEMP 98.2–99.9; O2SAT 95–100
[2023-12-14 04:27] LABS: Basophils # (auto) 0 10 ^3/uL (0-0.2); Nucleated Red Blood Cells % 0.1 %
[2023-12-14 04:29] LABS: Alanine Aminotransferase 20 U/L (7-40); Alkaline Phosphatase 187 U/L (46-116); Anion Gap 11 (5-15); BUN/Creatinine Ratio 12.8 (10.0-20.0); Blood Urea Nitrogen 19 mg/dL (9-23); Calcium 9.2 mg/dL (8.7-10.4); Carbon Dioxide 15 mmol/L (20-30); Chloride 113 mmol/L (98-107); Glucose 260 mg/dL (74-106); Magnesium 2.1 mg/dL (1.6-2.6); Potassium 3.5 mmol/L (3.5-5.1); Sodium 139 mmol/L (136-145)
[2023-12-14 04:30] LABS: Albumin 2.9 g/dL (3.2-4.8); Aspartate Aminotransferase 27 U/L (13-40); Bilirubin, Total < 0.2 mg/dL (0.2-1.0); Phosphorus 2.9 mg/dL (2.4-5.1); Total Protein 5.5 g/dL (5.7-8.2)
[2023-12-14 04:34] LABS: Basophils % (auto) 0.5 % (0.0-2.0); Eosinophils # (auto) 0.6 10 ^3/uL (0-0.8); Eosinophils % (auto) 6.1 % (0.0-7.0); Hematocrit 27.5 % (36.0-46.0); Hemoglobin 8.3 g/dL (12.2-16.2); Lymphocytes # (auto) 1.5 10 ^3/uL (0.4-5.4); Lymphocytes % (auto) 16.2 % (10.0-50.0); Mean Corpuscular Hemoglobin 29.1 pg (28.0-32.0); Mean Corpuscular Hgb Conc. 30.1 g/dL (32.0-36.0); Mean Corpuscular Volume 96.6 fL (80.0-100.0); Monocytes # (auto) 0.3 10 ^3/uL (0-1.3); Monocytes % (auto) 3.1 % (0.0-12.0); Neutrophils % (auto) 74.1 % (37.0-80.0); Platelet Count (auto) 282 10^3/uL (140-450); Red Blood Cells 2.85 10^6/uL (4.0-5.20); White Blood Cell 9.5 10^3/uL (4.4-10.8)
--- NOTE | 2023-12-14 04:50 | DVH ---
CHEST RADIOGRAPH Indication:Intubated Technique: Single frontal view of the chest was obtained COMPARISON: XY CHEST XRAY 1 VIEW on DOS: 12/13/23, XY CHEST XRAY 1 VIEW on DOS: 12/13/23, XY CHEST XRAY 1 VIEW on DOS: 12/12/23 FINDINGS: Lines and Tubes: Tracheostomy and left PICC in satisfactory position Lungs: Patchy bilateral airspace disease. Pleura: No effusion. No pneumothorax. Cardiomediastinal contours: Unremarkable Bones: Unremarkable IMPRESSION: Lines and tubes in satisfactory position. No significant interval change.
--- NOTE | 2023-12-14 08:19 | DVHPN2 ---
Progress Note Date Seen: Dec 14, 2023 Has the PT tested + for MRSA If YES, has PT been informed?: No Medical Necessity Reason Pt with a Central, PICC or Fol: Yes The following are medically ne: PICC Line, Carr Catheter Reason for carr catheter: Strict I&O Objective vital signs Vital Sign Date Time Temp Pulse Resp B/P (MAP) Pulse Ox O2 Delivery O2 Flow Rate FiO2 12/14/23 06:56 116/53 12/14/23 06:45 98.6 73 24 99 209.5 12/14/23 06:01 30 12/13/23 20:00 Mechanical Ventilator+ Total Intake and Output 12/13/23 12/13/23 12/14/23 15:00 23:00 07:00 Intake Total 854.0 ml 801.0 ml 595.0 ml Output Total 850 ml 575 ml Balance 854.0 ml -49.0 ml 20.0 ml medications Current Medications Medications Dose Ordered Sig/Leslie Route Start Time Stop Time Status Last Admin Dose Admin Albuterol 2.5 mg Q4HR PRN NEB 12/08/23 19:30 12/14/23 06:00 2.5 MG Ipratropium [place] 0.5 mg Q4HR NEB 12/08/23 22:00 12/14/23 06:00 0.5 MG Ondansetron HCl 4 mg Q4HP PRN IV 12/08/23 19:30 Pantoprazole Sodium 40 mg DAILY IV 12/09/23 10:00 12/13/23 09:51 40 MG Fentanyl Citrate 250 ml @ 2.5 mls/hr Q24H IV 12/08/23 20:30 12/14/23 03:30 27.5 MLS/HR Hydralazine HCl 10 mg Q4HP PRN IV 12/09/23 05:30 12/09/23 05:50 10 MG Norepinephrine Bitartrate 250 ml @ 3.75 mls/hr Q24H IV 12/09/23 08:15 12/09/23 08:00 3.75 MLS/HR Midazolam HCl 50 ml @ 5 mls/hr Q10H IV 12/09/23 09:00 12/14/23 06:56 7 MLS/HR Sodium Chloride 10 ml QSHIFT@ IV 12/09/23 22:00 12/13/23 22:28 10 ML Vancomycin HCl 0 ml @ 0 mls/hr UD IV 12/09/23 19:00 Fluconazole 100 ml @ 100 mls/hr 10,11 IV 12/10/23 10:00 12/13/23 11:02 100 MLS/HR Enoxaparin Sodium 70 mg Q12HR SC 12/09/23 22:00 12/11/23 09:42 70 MG Acetaminophen 650 mg Q6HP PRN [place] 12/10/23 01:30 12/13/23 06:51 650 MG Enteral Nutritional Formula 1,000 ml 30ML/HR GT 12/10/23 16:45 12/13/23 08:35 1,000 ML Amino Acids 0 ml @ 0 mls/hr PER PHARMACY IV 12/12/23 15:30 Diagnostic Test (Pha) 1 strip Q6HR 12/12/23 18:00 12/14/23 05:35 1 STRIP Insulin Human Regular FOLLOW SLIDING SCALE Q6HR SC 12/12/23 18:00 12/14/23 05:52 8 UNITS Dextrose 50 ml UD IV 12/12/23 15:45 Amino Acids/ Electrolytes/ Dextrose 1,000 ml @ 41 mls/hr DAILY@1999 IV 12/12/23 20:00 12/13/23 20:43 41 MLS/HR Ceftriaxone Sodium/Dextrose 50 ml @ 50 mls/hr Q12HR@ IV 12/13/23 09:00 12/13/23 21:01 50 MLS/HR Furosemide 20 mg DAILY IV 12/14/23 10:00 Levothyroxine Sodium 50 mcg DAILY IV 12/14/23 10:00 Metoclopramide HCl 5 mg Q6HPRN PRN IV 12/13/23 21:45 laboratory and microbiology Laboratory Tests 12/14/23 03:41 Test 12/14/23 03:41 Range/Units Serum Glucose 260 H 74-106 mg/dL Problem List/Assessment/Plan Problem List/Assessment/Plan 12/10/23 patient intubated on ventilator, sedated, examined, tracheostomy scheduled for Wednesday provided medically cleared by then 12/14/23 post tracheostomy CXR shows tracheostomy in good position, both lungs aerated, no pneumothorax, no reported problems with tracheostomy over night , will sign off, please recall if needed Plan discussed with: Patient Dietary Evaluation Review Comments: 1) If GI is accessible consider Glucerna 1.2 @ 55 ml/hr goal rate as tolerated 2) If pt remains NPO >7 days consider TPN to meet at least 75% of estimated needs 3) Advance pt diet when medically feasible to a CCHO 45g/Cardiac diet modified per MEDICAL REIMBURSEMENT MANAGER recommendations 4) Continue current plan of care Expected Outcomes/Goals: 1) Pt to receive nutrition support within 7 days of NPO status 2) Pt diet to advance 3) F/U in 2-3 days BRENDON MARQUEZ MD Dec 14, 2023 08:19
[2023-12-14] MEDS: FUROSEMIDE 20 MG/2 ML VIAL IV SCH ×2 (10:04→21:59)
[2023-12-14] MEDS: LEVOTHYROXINE SODIUM 100 MCG/5 ML INJ IV SCH (10:19)
--- NOTE | 2023-12-14 10:23 | DVHPN2 ---
Progress Note - Dictate Date Seen: Dec 14, 2023 Has the PT tested + for MRSA If YES, has PT been informed?: No Medical Necessity Reason Pt with a Central, PICC or Fol: Yes The following are medically ne: PICC Line, Carr Catheter Reason for carr catheter: Strict I&O Subjective Mr. Sanderson is a 68 years old female with a history of hypertension, diabetes, hypothyroidism, COPD, obesity, diabetic polyneuropathy, arthritis, liver cirrhosis, she was transferred back from the [facility] on 12/08/2023 after ERCP. I have seen examined the patient, I have talked to her nurse, she is nonresponsive to stroke painful stimuli She received PEG feeding tube insertion on 12/12/2023 She had tracheostomy on 12/13/2023 Versed 7 mg/hour, fentanyl 275 mcg/hour LLU Neurosurgery consultation: The lesions likely represents infarct, recommend Re attempting MRI spectrography for further evaluation Neuro consultation: Lumbar puncture was not recommended concerning possibility of herniation EEG, 11/28/2023: No seizure/nonconvulsive status epileptics (I did not see report) TTE, 11/29/23: EF: 70-75% (I did not see report) MRI brain (no report): signal abnormality in bilateral cerebellum and right occipital lobe, punctate foci in right parietal lobe and central semiovale- unable to differentiate subacute ischemia 2/2 MR effects versus infection versus metastasis. Recommend contrast enhanced MRI MRI, 12/05/23: No evidence of demyelinating disease (I did not see report) MRI orbital, face, neck ww 12/05/2023, comparison: MR brain 11/28/2023: No evidence of mucormycosis infection. Multiple irregularly enhancing cerebellar and right occipital lesions were better evaluated on recent brain MRI MRI C-spine, 12/05/2023: No evidence of demyelinating disease in the cervical spine. Moderate degenerative changes. Grade 1 anterolisthesis of C7 on T1 MRI lumbar spine wwo, 12/05/2023: No evidence of demyelinating disease in the lumbar spine. Degenerative changes and grade 1 anterolisthesis of L4 and L5. Mild central spinal stenosis at L4-5. [id number] multilevel bilateral foraminal stenosis as described above MRI spectroscopy 12/05/2023: Cerebellar lesion showing moderately elevated Cho, reduced ZINA, large lipid peaks, and additional tics suspicious for amino acids and alanine. The alanine and amino acids are suspicious for an infectious process Treatment according to discharge note: ASA 81mg Qd, Lipitor 20 mg daily Urinalysis, 12/08/2023: WBC: 93, urine leukocyte esterase: 3+ ABG, 12/09/2023: Metabolic acidosis WBC/HB/PLT/MCV, 12/09/2023: 8.5/7.4/350/92.4 PT/INR/PTT, 12/08/2023: 11.4/1.08 Na, 12/08/2023: 147, 12/09/2023: 146 TBI/AST/ALT/AP, 12/09/2023: 0.2/40/21/278 TG/HDL/LDL/HDL, 11/2023: 136/96/38/32 Vitamin B12, 11/2023: 2537 TSH, 11/2023: 17.87 YOLANDA, 12/10/2023: n the study done today no evidence of vegetation or masses were discernible. There is mild mitral valve regurgitation with mild anterior leaflet prolapse. No significant intracardiac lesion was discernible Echocardiogram, 11/18/2023: Normal left ventricular size and dimension. Normal left ventricular systolic function estimated ejection fraction 55%. There is a grade 1 diastolic dysfunction. Normal right ventricular size and dimension. Normal right ventricular systolic function. Mildly increased right ventricular systolic pressure 34 mm of mercury. Normal biatrial size and dimension. Normal aortic valve structure and function. Normal mitral valve structure and function. Normal tricuspid valve structure and function. The pulmonary valve is grossly normal. No pericardial effusion. Carotid Doppler, 11/21/2023: 1. No evidence of hemodynamically significant stenosis within the left carotid arterial system. 2. Antegrade flow within the left vertebral artery. 3. Cannot assess the right carotid arterial system due to central line artifact and overlying bandage. Extremity venous study, 12/09/2023: Thrombus in the LEFT cephalic and brachial vein. Thrombus in the RIGHT cephalic and basilic vein.If clinical concern/symptoms persist or worsen, short-interval follow-up study is suggested. Chest x-ray, 12/08/2023: 1. Endotracheal and gastric tubes in place as described. Satisfactory position. 2. Removal of right PICC and right IJ central venous catheter since prior. 3. Mild cardiomegaly and pulmonary vascular congestion. 4. Small opacity in the lateral right lung base which could reflect atelectasis or pneumonia MRI head, 11/21/2023: Signal abnormality in the bilateral cerebellum and right occipital lobe, as well as punctate foci in the right parietal lobe and centrum semiovale. Findings could represent regions of subacute ischemia due to embolic infarcts; however, underlying metastases or infection are not excluded. Recommend contrast-enhanced MRI vital signs Vital Sign Date Time Temp Pulse Resp B/P (MAP) Pulse Ox O2 Delivery O2 Flow Rate FiO2 12/14/23 10:04 136/53 12/14/23 09:46 78 24 99 30 12/14/23 08:30 99.3 210.7 12/14/23 08:00 Mechanical Ventilator+ Total Intake and Output 12/13/23 12/13/23 12/14/23 15:00 23:00 07:00 Intake Total 854.0 ml 801.0 ml 670.5 ml Output Total 850 ml 575 ml Balance 854.0 ml -49.0 ml 95.5 ml medications Current Medications Medications Dose Ordered Sig/Leslie Route Start Time Stop Time Status Last Admin Dose Admin Albuterol 2.5 mg Q4HR PRN NEB 12/08/23 19:30 12/14/23 09:49 2.5 MG Ipratropium [place] 0.5 mg Q4HR NEB 12/08/23 22:00 12/14/23 09:49 0.5 MG Ondansetron HCl 4 mg Q4HP PRN IV 12/08/23 19:30 Pantoprazole Sodium 40 mg DAILY IV 12/09/23 10:00 12/14/23 10:06 40 MG Fentanyl Citrate 250 ml @ 2.5 mls/hr Q24H IV 12/08/23 20:30 12/14/23 03:30 27.5 MLS/HR Hydralazine HCl 10 mg Q4HP PRN IV 12/09/23 05:30 12/09/23 05:50 10 MG Norepinephrine Bitartrate 250 ml @ 3.75 mls/hr Q24H IV 12/09/23 08:15 12/09/23 08:00 3.75 MLS/HR Midazolam HCl 50 ml @ 5 mls/hr Q10H IV 12/09/23 09:00 12/14/23 06:56 7 MLS/HR Sodium Chloride 10 ml QSHIFT@10,22 IV 12/09/23 22:00 12/14/23 10:07 10 ML Vancomycin HCl 0 ml @ 0 mls/hr UD IV 12/09/23 19:00 Fluconazole 100 ml @ 100 mls/hr 10,11 IV 12/10/23 10:00 12/14/23 10:07 100 MLS/HR Enoxaparin Sodium 70 mg Q12HR SC 12/09/23 22:00 12/14/23 10:07 70 MG Acetaminophen 650 mg Q6HP PRN [place] 12/10/23 01:30 12/13/23 06:51 650 MG Enteral Nutritional Formula 1,000 ml 30ML/HR GT 12/10/23 16:45 12/13/23 08:35 1,000 ML Amino Acids 0 ml @ 0 mls/hr PER PHARMACY IV 12/12/23 15:30 Diagnostic Test (Pha) 1 strip Q6HR 12/12/23 18:00 12/14/23 05:35 1 STRIP Insulin Human Regular FOLLOW SLIDING SCALE Q6HR SC 12/12/23 18:00 12/14/23 05:52 8 UNITS Dextrose 50 ml UD IV 12/12/23 15:45 Amino Acids/ Electrolytes/ Dextrose 1,000 ml @ 41 mls/hr DAILY@1999 IV 12/12/23 20:00 12/13/23 20:43 41 MLS/HR Ceftriaxone Sodium/Dextrose 50 ml @ 50 mls/hr Q12HR@09,21 IV 12/13/23 09:00 12/14/23 10:07 50 MLS/HR Furosemide 20 mg DAILY IV 12/14/23 10:00 12/14/23 10:04 20 MG Levothyroxine Sodium 50 mcg DAILY IV 12/14/23 10:00 Metoclopramide HCl 5 mg Q6HPRN PRN IV 12/13/23 21:45 objective The patient is well-nourished and well-developed with no distress. MENTAL STATUS: Subjective CRANIAL NERVES: Pupils are equal, round and reactive, small. There are corneal reflexes and doll's eyes phenomenon. No signs of facial weakness. There are no gagging or coughing reflexes (RN: There was gag reflexes) SENSATION: No responses to pain stimuli. MOTOR: Normal tone in the upper and lower extremity. Normal muscle bulk. No fasciculations. No spontaneous movement. REFLEXES: Deep tendon reflexes are symmetrical. No pathological reflexes. CEREBELLAR/COORDINATION: Deferred GAIT/STATION: deferred. laboratory and microbiology Laboratory Tests 12/14/23 03:41 Test 12/14/23 03:41 Range/Units Serum Glucose 260 H 74-106 mg/dL Problem List Abnormal MRI brain scan, likely the patient has multiple stroke Coma Metabolic encephalopathy Hypoxic encephalopathy Multiple strokes Ketoacidosis Bilateral upper extremity deep venous thrombosis Rule out subacute endocarditis Status post tracheostomy Status post PEG tube Assessment/Plan Monitoring Supportive treatment ICU care Respiratory support Stabilize vitals IV antibiotics Lovenox 1 mg/kg subcutaneous b.i.d. Lipitor 20 mg daily Tube feeding Cardiology on case Infectious disease on case More recommendation per clinical course This medical document was created using an electronic medical record system with [employer] dictation system. Although this document has been carefully reviewed, there may still be some phonetic and typographical errors. These areas are purely typographical due to imperfections of the software programs, and do not reflect any compromise in the patient's medical care. Prognosis poor Dietary Evaluation Review Comments: 1) If GI is accessible consider Glucerna 1.2 @ 55 ml/hr goal rate as tolerated 2) If pt remains NPO >7 days consider TPN to meet at least 75% of estimated needs 3) Advance pt diet when medically feasible to a CCHO 45g/Cardiac diet modified per CRIMPER ASSEMBLER recommendations 4) Continue current plan of care Expected Outcomes/Goals: 1) Pt to receive nutrition support within 7 days of NPO status 2) Pt diet to advance 3) F/U in 2-3 days Plan discussed with: Other DREW FAGAN MD Dec 14, 2023 10:23
[2023-12-14] MEDS: GADOTERATE MEG 10 MMOL/20ml INJ (0.5MMOL/ml) IV ONE (11:20)
[2023-12-14 13:07] LABS: Aspergillus flavus Negative (Neg:<1:1); Aspergillus fumigatus Negative (Neg:<1:1); Aspergillus niger Negative (Neg:<1:1); Blastomyces Antibody DID Negative (Neg:<1:1); Coccidioides CF Antibody <1:2 (<1:2)
[2023-12-14] MEDS: POTASSIUM CHL 20MEQ/100ML 100 ML IV ONE (14:02)
[2023-12-14] MEDS: VANCOMYCIN 500 MG in D5W 5% 100 ML IV ONE (14:03)
--- NOTE | 2023-12-14 14:38 | DVHPNRES ---
Progress Note Date Seen: Dec 14, 2023 Resident Creating Document: DANELLE MENDIETA RESIDENT Has the PT tested + for MRSA If YES, has PT been informed?: No Medical Necessity Reason Pt with a Central, PICC or Fol: Yes The following are medically ne: PICC Line, Carr Catheter Reason for carr catheter: Strict I&O Subjective Review of Systems This is a 68-year-old female with past medical history of hypertension, diabetes mellitus type 2, hypothyroidism, COPD, obesity, diabetic polyneuropathy, liver cirrhosis, right knee replacement, multiple admissions for DKA. The patient was initially seen at [facility] on 11/16/2023 where he was intubated and transferred to our facility. At our facility he was treated for DKA and was found to have space occupying lesions in the brain (metastasis/infection/stroke) MRI of the head was done with no conclusive findings at that time. CT scan of the abdomen and pelvis at that time showed dilation of common bile duct and GI recommended ERCP/endoscopic ultrasound so patient was transferred on 11/26/2023 to [facility]. ERCP and ultrasound was performed showing no obstruction either malignancy or stone at that time. Neurosurgery at [facility] evaluated MRI results and stated that could be due to infarcts. Neurologist was against lumbar puncture due to increased risk of herniation. patient was extubated on November 28, 2023 and was transferred step-down unit with 2 L of nasal cannula but lately on December 02 patient became shortness of breath tachypneic required reintubation. The patient had sepsis of unknown etiology and they thought it might be related to the brain lesions so patient was started on broad-spectrum IV antibiotics with MRSA coverage. Patient was readmitted back at [facility]. Patient seen and examined at bedside. Patient is currently sedated on midazolam and fentanyl not requiring any vasopressors at this time. Currently on mechanical ventilator on the following parameters: VT 450, RR 24, FiO2 30%, peep five saturating 100%. ABG performed this morning is showing a pH of 7.33, pCO2 of 30.5, HC03 of 15.8 and PaO2 of 95.9 consistent with metabolic acidosis with respiratory compensation calculated by tejada formula. We stopped Clinimix and did fully transition on enteral nutrition. We started the patient on levothyroxine 50 mcg IV. ROS unable to obtained due to current status of intubation. Objective vital signs Vital Sign Date Time Temp Pulse Resp B/P (MAP) Pulse Ox O2 Delivery O2 Flow Rate FiO2 12/14/23 14:09 74 24 126/64 (84) 100 30 12/14/23 13:30 99.9 211.8 12/14/23 08:00 Mechanical Ventilator+ Total Intake and Output 12/13/23 12/13/23 12/14/23 15:00 23:00 07:00 Intake Total 854.0 ml 801.0 ml 670.5 ml Output Total 850 ml 575 ml Balance 854.0 ml -49.0 ml 95.5 ml medications Current Medications Medications Dose Ordered Sig/Leslie Route Start Time Stop Time Status Last Admin Dose Admin Albuterol 2.5 mg Q4HR PRN NEB 12/08/23 19:30 12/14/23 14:09 2.5 MG Ipratropium [place] 0.5 mg Q4HR NEB 12/08/23 22:00 12/14/23 14:08 0.5 MG Ondansetron HCl 4 mg Q4HP PRN IV 12/08/23 19:30 Pantoprazole Sodium 40 mg DAILY IV 12/09/23 10:00 12/14/23 10:06 40 MG Fentanyl Citrate 250 ml @ 2.5 mls/hr Q24H IV 12/08/23 20:30 12/14/23 12:59 27.5 MLS/HR Hydralazine HCl 10 mg Q4HP PRN IV 12/09/23 05:30 12/09/23 05:50 10 MG Norepinephrine Bitartrate 250 ml @ 3.75 mls/hr Q24H IV 12/09/23 08:15 12/09/23 08:00 3.75 MLS/HR Midazolam HCl 50 ml @ 5 mls/hr Q10H IV 12/09/23 09:00 12/14/23 12:51 7 MLS/HR Sodium Chloride 10 ml QSHIFT@10,22 IV 12/09/23 22:00 12/14/23 10:07 10 ML Vancomycin HCl 0 ml @ 0 mls/hr UD IV 12/09/23 19:00 Fluconazole 100 ml @ 100 mls/hr 10,11 IV 12/10/23 10:00 12/14/23 12:51 100 MLS/HR Enoxaparin Sodium 70 mg Q12HR SC 12/09/23 22:00 12/14/23 10:07 70 MG Acetaminophen 650 mg Q6HP PRN OH 12/10/23 01:30 12/13/23 06:51 650 MG Enteral Nutritional Formula 1,000 ml 30ML/HR GT 12/10/23 16:45 12/13/23 08:35 1,000 ML Diagnostic Test (Pha) 1 strip Q6HR 12/12/23 18:00 12/14/23 12:35 1 STRIP Insulin Human Regular FOLLOW SLIDING SCALE Q6HR SC 12/12/23 18:00 12/14/23 12:44 2 UNITS Dextrose 50 ml UD IV 12/12/23 15:45 Amino Acids/ Electrolytes/ Dextrose 1,000 ml @ 41 mls/hr DAILY@1999 IV 12/12/23 20:00 12/13/23 20:43 41 MLS/HR Ceftriaxone Sodium/Dextrose 50 ml @ 50 mls/hr Q12HR@09,21 IV 12/13/23 09:00 12/14/23 10:07 50 MLS/HR Furosemide 20 mg DAILY IV 12/14/23 10:00 12/14/23 10:04 20 MG Levothyroxine Sodium 50 mcg DAILY IV 12/14/23 10:00 12/14/23 10:19 50 MCG Metoclopramide HCl 5 mg Q6HPRN PRN IV 12/13/23 21:45 Examination Physical Examination General: Patient sedated and intubated on mechanical ventilation: VT 450, RR 24, FiO2 30%, PEEP 5, saturating 100% HEENT: Normocephalic, atraumatic, moist mucous membranes, light gag reflex but present. Respiratory/pulmonary: Bilateral lung sounds grossly clear, no crackles or wheezes at this time. Cardiovascular: Normal heart sounds S1 and S2 with no associated murmurs Abdomen: Abdomen nondistended, there is no pain to palpation in any of the abdominal quadrants, no palpable masses. PEG tube on place with no signs in infection at this time. Extremities: Bilateral upper extremities are edematous and bilateral lower extremity have 2+ pitting edema bilaterally. Peripheral Pulses: 3+ Radial (R). 3+ Radial (L). 3+ Dorsalis pedis (R). 3+ Dorsalis pedis(L) Skin: No rashes or pruritus, there is no sacral edema present at this time. Neurological: Sedated, RASS -3, bilateral pupils reactive to light laboratory and microbiology Laboratory Tests 12/14/23 03:41 Test 12/14/23 03:41 Range/Units Serum Glucose 260 H 74-106 mg/dL Microbiology Date/Time Source Procedure Growth Status 12/09/23 09:28 Blood Blood Culture - Final NO GROWTH AFTER 5 DAYS OF INCUBATION. Complete 12/08/23 19:00 Nose MRSA Screen - Final Complete 12/08/23 19:00 Urine - Catheterized Urine Culture - Final Complete 12/08/23 19:00 Sputum Gram Stain - Final Complete 12/08/23 19:00 Sputum Respiratory Culture - Final Complete Problem List/Assessment/Plan Problem List/Assessment/Plan Assessment/Plan Neurology Acute metabolic encephalopathy likely in the setting of sepsis versus brain occupying lesions (metastasis/infection/stroke) -patient has a previous MRI at this facility showing no conclusive diagnosis, At [facility] did not got any conclusive diagnosis as well. -failed extubation at [facility] -CT scan of the head performed at this visit show hypodensities in bilateral cerebellum with no acute intracranial abnormalities. -MRI with contrast of the brain should be performed to clarify etiology of brain occupying lesions. Study was hold today due to YULIANA, we will wait for renal function recovery, meanwhile we will try to decrease sedation and assess neurologic response clinically. Brain lessions on MRI w/o contrast, unknown etiology -we will perform brain MRI with contrast once kidney function recovers. -lab workup performed at [facility] was negative for blastomycosis, tuberculosis, cryptococcosis Sedation -currently on sedation with midazolam 7mg/hr, fentanyl 275mcg/ hr not requiring any vasopressor at this time. Cardiology Acute on chronic diastolic heart failure (HFpEF 55%) -Increased furosemide to 20 mg IV BID -Both echocardiograms TTE YOLANDA were performed showing no vegetations or cardiac valve abn. Ruled out endocarditis -YOLANDA performed on 12/10/2023 showed normal cardiac valves with no vegetations at that time. Primary hypertension -blood pressure currently running on the lower side, no meds needed at this time Respiratory S/P tracheostomy performed today in the morning (12/13/23) -still on mechanical ventilator VT 450, RR 24, FiO2 30%, PEEP 5, saturating 100% Acute hypoxic respiratory failure likely in the setting of aspiration pneumonia -continue on IV vancomycin, ceftriaxone and fluconazole. Previously patient was receiving cefepime, ampicillin, metronidazole. -on mech vent as stated above -CT of the chest/abdomen and pelvis showed no acute findings in the abdominal pelvics but showed multifocal airspace disease and cardiomegaly -chest x-ray performed today showed stable pulmonary congestion right lower lobe infiltration can not be excluded -Will come out of sedation, evaluate mental response clinically and eventually try CPAP trial. -ABG this morning showed a pH of 7.33, pCO2 of 30.5, HCO3 of 15.8 and PaO2 of 95.9 consistent with metabolic acidosis with respiratory compensation calculated by tejada formula. Sepsis in the setting of aspiration pneumonia -continue IV antibiotics as described above Infectious disease Sepsis likely due to aspiration pneumonia and UTI -continue IV antibiotics as stated above UTI UA suggestive of UTI but last urine culture showed no growth -Ordered new U/A and urine culture Possible brain abscess/infectious occupying lesions -currently on vancomycin, ceftriaxone and fluconazole Endocrinology Type 2 diabetes mellitus, DKA on previous admissions -Continue on sliding scale insulin -Not on Lantus at this time Diabetic polyneuropathy -Patient sedated, monitor Hypothyroidism -Last TSH was 17.87 -today, ordered free T4 and T3 which came back 0.48 and 0.79 respectively -Will start levothyroxine orally through NG tube at 112mcgQAM Gastroenterology Acute transaminitis, resolved -AST 29, ALT 20 -Continue monitoring Cholelithiasis w/o cholecystitis -CT abdomen showed cholelithiasis w/o findings suggestive of cholecystitis Hematology Superficial thrombophlebitis of right cephalic and basilic veins -no need for anticoagulation DVT of the left brachial vein -continue on enoxaparin 1 milligram/kilogram q.12 Nutrition -Stopped clinimix and fully transitioned to EN at 20cc/hr, increase to 30cc/hr acute renal failure ?vasomotor nephropathy Lines: Midline of right upper arm placed on 12/08/2023 PICC line on left upper arm placed on 12/09/2023 Goals of care discussed with medical team Critical time spent> 83min Plan discussed with Dr. Razo Plan discussed with: Other My Orders My Orders Orders - DANELLE MENDIETA Procedure Category Date Status Time Levothyroxine PHA 12/14/23 In Process Injection (Synthroid 10:00 Abg W/ Co-Ox RT 12/14/23 Logged 04:00 Potassium Chl PHA 12/14/23 In Process 20meq/100ml 13:30 Dietary Evaluation Review Comments: 1) If GI is accessible consider Glucerna 1.2 @ 55 ml/hr goal rate as tolerated 2) If pt remains NPO >7 days consider TPN to meet at least 75% of estimated needs 3) Advance pt diet when medically feasible to a CCHO 45g/Cardiac diet modified per COLUMNIST recommendations 4) Continue current plan of care Expected Outcomes/Goals: 1) Pt to receive nutrition support within 7 days of NPO status 2) Pt diet to advance 3) F/U in 2-3 days Date of Service: Dec 14, 2023 Billing Provider: FREEDOM RAZO MD Common Visit Codes: 60126-ANXYWHXZ CARE 30-74 MIN, 62504-DVPDFHAN CARE-EACH +30MIN DANELLE MENDIETA RESIDENT Dec 14, 2023 14:38 FREEDOM RAZO MD Dec 15, 2023 11:24
[2023-12-14] MEDS: InsuLIN REG 1unit/0.01ml Soln (100units/ml) SC SCH (18:00)
[2023-12-14] MEDS ORDERED: DEXTROSE (50%) 50ML SYRG IV PRN (18:00)
[2023-12-14] MEDS: ACCU-CHEK COMFORT CURVE STRIP VI SCH (18:17)
[2023-12-14 20:04] LABS: Urine Bacteria FEW /hpf (None Seen); Urine Blood 2+ /uL (Negative); Urine Clarity Clear (Clear); Urine Color Light-Yellow (Yellow); Urine Protein, UAD 1+ (Negative); Urine Specific Gravity 1.009 (1.001-1.035); Urine Urobilinogen Normal (Negative); Urine WBC 68 /hpf (0 - 5)
--- NOTE | 2023-12-14 21:20 | DVHPN2 ---
Consult Progress Note Date Seen: Dec 14, 2023 Subjective Patient reports: Feels better (off sedation) Objective vital signs Vital Sign Date Time Temp Pulse Resp B/P (MAP) Pulse Ox O2 Delivery O2 Flow Rate FiO2 12/14/23 21:03 130/45 12/14/23 20:45 98.8 73 24 99 209.8 12/14/23 20:27 30 12/14/23 20:00 Mechanical Ventilator+ Total Intake and Output 12/13/23 12/13/23 12/14/23 15:00 23:00 07:00 Intake Total 854.0 ml 801.0 ml 670.5 ml Output Total 850 ml 575 ml Balance 854.0 ml -49.0 ml 95.5 ml medications Current Medications Medications Dose Ordered Sig/Leslie Route Start Time Stop Time Status Last Admin Dose Admin Albuterol 2.5 mg Q4HR PRN NEB 12/08/23 19:30 12/14/23 18:26 2.5 MG Ipratropium [place] 0.5 mg Q4HR NEB 12/08/23 22:00 12/14/23 18:26 0.5 MG Ondansetron HCl 4 mg Q4HP PRN IV 12/08/23 19:30 Pantoprazole Sodium 40 mg DAILY IV 12/09/23 10:00 12/14/23 10:06 40 MG Fentanyl Citrate 250 ml @ 2.5 mls/hr Q24H IV 12/08/23 20:30 12/14/23 12:59 27.5 MLS/HR Hydralazine HCl 10 mg Q4HP PRN IV 12/09/23 05:30 12/09/23 05:50 10 MG Norepinephrine Bitartrate 250 ml @ 3.75 mls/hr Q24H IV 12/09/23 08:15 12/09/23 08:00 3.75 MLS/HR Midazolam HCl 50 ml @ 5 mls/hr Q10H IV 12/09/23 09:00 12/14/23 21:03 4 MLS/HR Sodium Chloride 10 ml QSHIFT@10,22 IV 12/09/23 22:00 12/14/23 10:07 10 ML Vancomycin HCl 0 ml @ 0 mls/hr UD IV 12/09/23 19:00 Fluconazole 100 ml @ 100 mls/hr 10,11 IV 12/10/23 10:00 12/14/23 12:51 100 MLS/HR Enoxaparin Sodium 70 mg Q12HR SC 12/09/23 22:00 12/14/23 10:07 70 MG Acetaminophen 650 mg Q6HP PRN HI 12/10/23 01:30 12/13/23 06:51 650 MG Enteral Nutritional Formula 1,000 ml 30ML/HR GT 12/10/23 16:45 12/13/23 08:35 1,000 ML Ceftriaxone Sodium/Dextrose 50 ml @ 50 mls/hr Q12HR@ IV 12/13/23 09:00 12/14/23 20:55 50 MLS/HR Metoclopramide HCl 5 mg Q6HPRN PRN IV 12/13/23 21:45 Furosemide 20 mg BID IV 12/14/23 22:00 Levothyroxine Sodium 112 mcg QAM@0600 PO 12/15/23 06:00 Diagnostic Test (Pha) 1 strip Q6HR 12/14/23 18:00 12/14/23 18:17 1 STRIP Insulin Human Regular Q6HR SC 12/14/23 18:00 Dextrose 50 ml UD PRN IV 12/14/23 18:00 PHYSICAL EXAM: - GENERAL: Alert and oriented x 3. No acute distress. Well-nourished. - EYES: EOMI. Anicteric. - HENT: Moist mucous membranes. No scleral icterus. No cervical lymphadenopathy. - LUNGS: Clear to auscultation bilaterally. No accessory muscle use. - CARDIOVASCULAR: Regular rate and rhythm. No murmur. No JVD. - ABDOMEN: Soft, non-tender and non-distended. No palpable masses. - EXTREMITIES: No edema. Non-tender.?SKIN: No rashes or lesions. Warm. - NEUROLOGIC: No focal neurological deficits. CN II-XII grossly intact, but not individually tested. - PSYCHIATRIC: Cooperative. Appropriate mood and affect. laboratory and microbiology Laboratory Tests 12/14/23 03:41 Test 12/14/23 03:41 Range/Units Serum Glucose 260 H 74-106 mg/dL Problem List/Assessment/Plan Problem List/Assessment/Plan Assessment/Plan Problems(with codes): (1) Hospital-acquired pneumonia (2) COPD (chronic obstructive pulmonary disease) (3) DKA (diabetic ketoacidosis) (4) HTN (hypertension) (5) Closed right hip fracture Plan/Recommendation ASSESSMENT AND PLAN: ID Problem List: - Aspiration pneumonia - Acute respiratory failure - Diabetic Ketoacidosis (DKA) - Sepsis due to UTI vs pneumonia - Acute Kidney Injury (YULIANA) - Hypernatremia - Transaminitis - Fatty liver - Uncontrolled diabetes (A1C of 11.7) - Hypothyroidism - Hypertension - COPD without exacerbation - Chronic kidney disease (CKD) Assessment: This is a 68-year-old female with a past medical history of diabetes, hypertension, recurrent DKA, hypothyroidism, obesity, COPD, neuropathies, mechanical falls, liver cirrhosis, and multiple joint replacements. The patient presented to the ED with acute loss of consciousness on 11/15/2023, subsequently diagnosed with DKA and an upper GI bleed. While at [facility], a CT and MRI of the head showed concerning lesions for metastasis vs. infectious process and gallbladder issues. Due to renal failure, these images were performed without contrast. An ERCP at [facility] showed no gallstones or common bile duct obstruction. Currently, the patient is reintubated on minimal sedation and receiving broad-spectrum antibiotics for presumed meningitis and other infections. 12/09: Patient has had a repeat abdomen, pelvis, chest Ct with contrast which shows no acute findings in the abdomen and pelvis. multifocal airspace in the lungs was shown. 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 Plan: - Recommend aquiring sputum cultures due to fevers and multifocal airspace disease - continue ceftriaxone complete a 3 weeks course, eot 12/24/23 per OSH records - Continue vancomycin, complete a 3 weeks course, eot 12/24/23 per OSH records - stop fluconazole on serologies for fungal infection are negative - Blood cultures monitoring. - Monitor respiratory status and adjust ventilator settings as necessary. - Monitor and manage blood glucose levels. - Supportive care as needed. Isolation Precautions: Standard Total critical care time: Approximately 65 minutes Due to a high probability of clinically significant, life threatening deterioration, the patient required my highest level of preparedness to intervene emergently and I personally spent this critical care time directly and personally managing the patient. This critical care time included obtaining a history; examining the patient; pulse oximetry; ordering and review of studies; arranging urgent treatment with development of a management plan; evaluation of patient's response to treatment; frequent reassessment; and, discussions with other providers. This critical care time was performed to assess and manage the high probability of imminent, life-threatening deterioration that could result in multi-organ failure. It was exclusive of separately billable procedures and treating other patients and teaching time. Assessment and plan was discussed with the patient as written above. Plan is subject to change pending incorporation of new incoming information/diagnostics. Updates may be added as addendum at the bottom (OR TOP) of this note. Thank you for interesting consult. ID will continue to follow. Please contact Infectious disease for any questions or concerns. Nithin Carrasco M.D. [facility] Ph: ? Plan discussed with: Patient Dietary Evaluation Review Comments: 1) If GI is accessible consider Glucerna 1.2 @ 55 ml/hr goal rate as tolerated 2) If pt remains NPO >7 days consider TPN to meet at least 75% of estimated needs 3) Advance pt diet when medically feasible to a CCHO 45g/Cardiac diet modified per AUTH SPECIALIST recommendations 4) Continue current plan of care Expected Outcomes/Goals: 1) Pt to receive nutrition support within 7 days of NPO status 2) Pt diet to advance 3) F/U in 2-3 days NITHIN CARRASCO MD Dec 14, 2023 21:20
[2023-12-15] VITALS (106 sets, daily range): BP systolic 109–180; BP diastolic 34–72; PULSE 66–94; RESP 13–34; TEMP 98.1–99.1; O2SAT 95–100
[2023-12-15 04:05] LABS: Calcium 9.5 mg/dL (8.7-10.4); Chloride 115 mmol/L (98-107); Potassium 3.2 mmol/L (3.5-5.1); Sodium 142 mmol/L (136-145)
[2023-12-15 04:06] LABS: Anion Gap 10 (5-15); Carbon Dioxide 17 mmol/L (20-30)
[2023-12-15 04:11] LABS: BUN/Creatinine Ratio 16.3 (10.0-20.0); Blood Urea Nitrogen 24 mg/dL (9-23); Glucose 205 mg/dL (74-106); Magnesium 1.9 mg/dL (1.6-2.6)
[2023-12-15 04:13] LABS: Phosphorus 2.6 mg/dL (2.4-5.1)
[2023-12-15 04:23] LABS: Basophils # (auto) 0 10 ^3/uL (0-0.2); Basophils % (auto) 0.4 % (0.0-2.0); Eosinophils # (auto) 0.7 10 ^3/uL (0-0.8); Eosinophils % (auto) 7.8 % (0.0-7.0); Hematocrit 25.4 % (36.0-46.0); Lymphocytes # (auto) 1.7 10 ^3/uL (0.4-5.4); Lymphocytes % (auto) 19.4 % (10.0-50.0); Mean Corpuscular Hgb Conc. 31.6 g/dL (32.0-36.0); Mean Corpuscular Volume 91.7 fL (80.0-100.0); Monocytes # (auto) 0.2 10 ^3/uL (0-1.3); Monocytes % (auto) 2.2 % (0.0-12.0); Neutrophils # (auto) 6.3 10 ^3/uL (1.6-8.6); Neutrophils % (auto) 70.2 % (37.0-80.0); Nucleated Red Blood Cells % 0.2 %; Platelet Count (auto) 331 10^3/uL (140-450); Red Blood Cells 2.77 10^6/uL (4.0-5.20); Red Cell Distribution Width 17.1 % (11.8-14.3)
--- NOTE | 2023-12-15 04:42 | DVH ---
CHEST RADIOGRAPH Indication:bilat patchy infiltrates Technique: Single frontal view of the chest was obtained COMPARISON: XY CHEST XRAY 1 VIEW on DOS: 12/14/23, XY CHEST XRAY 1 VIEW on DOS: 12/13/23, XY CHEST XRAY 1 VIEW on DOS: 12/13/23 FINDINGS: Lines and Tubes: Tracheostomy and left PICC in satisfactory position. Lungs: Congestion Pleura: No effusion. No pneumothorax. Cardiomediastinal contours: Cardiomegaly Bones: Unremarkable IMPRESSION: Lines and tubes in satisfactory position. No significant interval change.
[2023-12-15] MEDS: LEVOTHYROXINE SODIUM 112 MCG TAB PO SCH (05:33)
[2023-12-15] MEDS: POTASSIUM CHL 20MEQ/100ML 100 ML IV SCH (06:38)
[2023-12-15] MEDS ORDERED: POTASSIUM CHL 20MEQ/100ML 100 ML IV ONE (08:00)
[2023-12-15 09:54] LABS: Base Excess -8.6 mmol/L (-2.0-3.0)
--- NOTE | 2023-12-15 10:52 | DVHPN2 ---
Progress Note - Dictate Date Seen: Dec 15, 2023 Has the PT tested + for MRSA If YES, has PT been informed?: No Medical Necessity Reason Pt with a Central, PICC or Fol: Yes The following are medically ne: PICC Line, Carr Catheter Reason for carr catheter: Strict I&O Subjective Mr. Sanderson is a 68 years old female with a history of hypertension, diabetes, hypothyroidism, COPD, obesity, diabetic polyneuropathy, arthritis, liver cirrhosis, she was transferred back from the [facility] on 12/08/2023 after ERCP. I have seen examined the patient, I have talked to her nurse, she is responsive to painful stimuli She received PEG feeding tube insertion on 12/12/2023 She had tracheostomy on 12/13/2023 Fentanyl 100 mcg/hour LLU Neurosurgery consultation: The lesions likely represents infarct, recommend Re attempting MRI spectrography for further evaluation Neuro consultation: Lumbar puncture was not recommended concerning possibility of herniation EEG, 11/28/2023: No seizure/nonconvulsive status epileptics (I did not see report) TTE, 11/29/23: EF: 70-75% (I did not see report) MRI brain (no report): signal abnormality in bilateral cerebellum and right occipital lobe, punctate foci in right parietal lobe and central semiovale- unable to differentiate subacute ischemia 2/2 MR effects versus infection versus metastasis. Recommend contrast enhanced MRI MRI, 12/05/23: No evidence of demyelinating disease (I did not see report) MRI orbital, face, neck ww 12/05/2023, comparison: MR brain 11/28/2023: No evidence of mucormycosis infection. Multiple irregularly enhancing cerebellar and right occipital lesions were better evaluated on recent brain MRI MRI C-spine, 12/05/2023: No evidence of demyelinating disease in the cervical spine. Moderate degenerative changes. Grade 1 anterolisthesis of C7 on T1 MRI lumbar spine wwo, 12/05/2023: No evidence of demyelinating disease in the lumbar spine. Degenerative changes and grade 1 anterolisthesis of L4 and L5. Mild central spinal stenosis at L4-5. [id number] multilevel bilateral foraminal stenosis as described above MRI spectroscopy 12/05/2023: Cerebellar lesion showing moderately elevated Cho, reduced ZINA, large lipid peaks, and additional tics suspicious for amino acids and alanine. The alanine and amino acids are suspicious for an infectious process Treatment according to discharge note: ASA 81mg Qd, Lipitor 20 mg daily Urinalysis, 12/08/2023: WBC: 93, urine leukocyte esterase: 3+ ABG, 12/09/2023: Metabolic acidosis WBC/HB/PLT/MCV, 12/09/2023: 8.5/7.4/350/92.4 PT/INR/PTT, 12/08/2023: 11.4/1.08 Na, 12/08/2023: 147, 12/09/2023: 146 TBI/AST/ALT/AP, 12/09/2023: 0.2/40/21/278 TG/HDL/LDL/HDL, 11/2023: 136/96/38/32 Vitamin B12, 11/2023: 2537 TSH, 11/2023: 17.87 YOLANDA, 12/10/2023: n the study done today no evidence of vegetation or masses were discernible. There is mild mitral valve regurgitation with mild anterior leaflet prolapse. No significant intracardiac lesion was discernible Echocardiogram, 11/18/2023: Normal left ventricular size and dimension. Normal left ventricular systolic function estimated ejection fraction 55%. There is a grade 1 diastolic dysfunction. Normal right ventricular size and dimension. Normal right ventricular systolic function. Mildly increased right ventricular systolic pressure 34 mm of mercury. Normal biatrial size and dimension. Normal aortic valve structure and function. Normal mitral valve structure and function. Normal tricuspid valve structure and function. The pulmonary valve is grossly normal. No pericardial effusion. Carotid Doppler, 11/21/2023: 1. No evidence of hemodynamically significant stenosis within the left carotid arterial system. 2. Antegrade flow within the left vertebral artery. 3. Cannot assess the right carotid arterial system due to central line artifact and overlying bandage. Extremity venous study, 12/09/2023: Thrombus in the LEFT cephalic and brachial vein. Thrombus in the RIGHT cephalic and basilic vein.If clinical concern/symptoms persist or worsen, short-interval follow-up study is suggested. Chest x-ray, 12/08/2023: 1. Endotracheal and gastric tubes in place as described. Satisfactory position. 2. Removal of right PICC and right IJ central venous catheter since prior. 3. Mild cardiomegaly and pulmonary vascular congestion. 4. Small opacity in the lateral right lung base which could reflect atelectasis or pneumonia MRI head, 11/21/2023: Signal abnormality in the bilateral cerebellum and right occipital lobe, as well as punctate foci in the right parietal lobe and centrum semiovale. Findings could represent regions of subacute ischemia due to embolic infarcts; however, underlying metastases or infection are not excluded. Recommend contrast-enhanced MRI vital signs Vital Sign Date Time Temp Pulse Resp B/P (MAP) Pulse Ox O2 Delivery O2 Flow Rate FiO2 12/15/23 10:38 78 24 129/42 (71) 100 30 12/15/23 06:45 98.8 209.8 12/14/23 20:00 Mechanical Ventilator+ Total Intake and Output 12/14/23 12/14/23 12/15/23 15:00 23:00 07:00 Intake Total 754.75 ml 522.5 ml 298.5 ml Output Total 1600 ml 1925 ml Balance 754.75 ml -1077.5 ml -1626.5 ml medications Current Medications Medications Dose Ordered Sig/Leslie Route Start Time Stop Time Status Last Admin Dose Admin Albuterol 2.5 mg Q4HR PRN NEB 12/08/23 19:30 12/15/23 10:42 2.5 MG Ipratropium [place] 0.5 mg Q4HR NEB 12/08/23 22:00 12/15/23 10:42 0.5 MG Ondansetron HCl 4 mg Q4HP PRN IV 12/08/23 19:30 Pantoprazole Sodium 40 mg DAILY IV 12/09/23 10:00 12/14/23 10:06 40 MG Fentanyl Citrate 250 ml @ 2.5 mls/hr Q24H IV 12/08/23 20:30 12/14/23 22:37 22.5 MLS/HR Hydralazine HCl 10 mg Q4HP PRN IV 12/09/23 05:30 12/09/23 05:50 10 MG Norepinephrine Bitartrate 250 ml @ 3.75 mls/hr Q24H IV 12/09/23 08:15 12/09/23 08:00 3.75 MLS/HR Midazolam HCl 50 ml @ 5 mls/hr Q10H IV 12/09/23 09:00 12/14/23 21:03 4 MLS/HR Sodium Chloride 10 ml QSHIFT@10,22 IV 12/09/23 22:00 12/14/23 21:59 10 ML Vancomycin HCl 0 ml @ 0 mls/hr UD IV 12/09/23 19:00 Enoxaparin Sodium 70 mg Q12HR SC 12/09/23 22:00 12/14/23 21:59 70 MG Acetaminophen 650 mg Q6HP PRN RI 12/10/23 01:30 12/13/23 06:51 650 MG Enteral Nutritional Formula 1,000 ml 30ML/HR GT 12/10/23 16:45 12/13/23 08:35 1,000 ML Ceftriaxone Sodium/Dextrose 50 ml @ 50 mls/hr Q12HR@ IV 12/13/23 09:00 12/15/23 08:34 50 MLS/HR Metoclopramide HCl 5 mg Q6HPRN PRN IV 12/13/23 21:45 Furosemide 20 mg BID IV 12/14/23 22:00 12/14/23 21:59 20 MG Levothyroxine Sodium 112 mcg QAM@0600 PO 12/15/23 06:00 12/15/23 05:33 112 MCG Diagnostic Test (Pha) 1 strip Q6HR 12/14/23 18:00 12/15/23 05:33 1 STRIP Insulin Human Regular Q6HR SC 12/14/23 18:00 12/15/23 00:18 6 UNITS Dextrose 50 ml UD PRN IV 12/14/23 18:00 objective The patient is well-nourished and well-developed with no distress. MENTAL STATUS: Subjective CRANIAL NERVES: Pupils are equal, round and reactive, small. There are corneal reflexes and doll's eyes phenomenon. No signs of facial weakness. There are no gagging or coughing reflexes (RN: There was gag reflexes) SENSATION: No responses to pain stimuli. MOTOR: Normal tone in the upper and lower extremity. Normal muscle bulk. No fasciculations. No spontaneous movement. REFLEXES: Deep tendon reflexes are symmetrical. No pathological reflexes. CEREBELLAR/COORDINATION: Deferred GAIT/STATION: deferred. laboratory and microbiology Laboratory Tests 12/15/23 03:26 Test 12/15/23 03:26 Range/Units Serum Glucose 205 H 74-106 mg/dL Problem List Abnormal MRI brain scan, likely the patient has multiple stroke Coma Metabolic encephalopathy Hypoxic encephalopathy Multiple strokes Ketoacidosis Bilateral upper extremity deep venous thrombosis Rule out subacute endocarditis Status post tracheostomy Status post PEG tube Assessment/Plan Monitoring Supportive treatment ICU care Respiratory support Stabilize vitals IV antibiotics Lovenox 1 mg/kg subcutaneous b.i.d. Lipitor 20 mg daily Tube feeding Cardiology on case Infectious disease on case More recommendation per clinical course This medical document was created using an electronic medical record system with [employer] dictation system. Although this document has been carefully reviewed, there may still be some phonetic and typographical errors. These areas are purely typographical due to imperfections of the software programs, and do not reflect any compromise in the patient's medical care. Prognosis poor Dietary Evaluation Review Comments: 1) If GI is accessible consider Glucerna 1.2 @ 55 ml/hr goal rate as tolerated 2) If pt remains NPO >7 days consider TPN to meet at least 75% of estimated needs 3) Advance pt diet when medically feasible to a CCHO 45g/Cardiac diet modified per TRAVEL REGISTERED NURSE PACU recommendations 4) Continue current plan of care Expected Outcomes/Goals: 1) Pt to receive nutrition support within 7 days of NPO status 2) Pt diet to advance 3) F/U in 2-3 days Plan discussed with: Other DREW FAGAN MD Dec 15, 2023 10:52
--- NOTE | 2023-12-15 13:07 | DVHPNRES ---
Progress Note Date Seen: Dec 15, 2023 Resident Creating Document: DANELLE MENDIETA RESIDENT Has the PT tested + for MRSA If YES, has PT been informed?: No Medical Necessity Reason Pt with a Central, PICC or Fol: Yes The following are medically ne: PICC Line, Carr Catheter Reason for carr catheter: Strict I&O Subjective Review of Systems This is a 68-year-old female with past medical history of hypertension, diabetes mellitus type 2, hypothyroidism, COPD, obesity, diabetic polyneuropathy, liver cirrhosis, right knee replacement, multiple admissions for DKA. The patient was initially seen at [facility] on 11/16/2023 where he was intubated and transferred to our facility. At our facility he was treated for DKA and was found to have space occupying lesions in the brain (metastasis/infection/stroke) MRI of the head was done with no conclusive findings at that time. CT scan of the abdomen and pelvis at that time showed dilation of common bile duct and GI recommended ERCP/endoscopic ultrasound so patient was transferred on 11/26/2023 to [facility]. ERCP and ultrasound was performed showing no obstruction either malignancy or stone at that time. Neurosurgery at [facility] evaluated MRI results and stated that could be due to infarcts. Neurologist was against lumbar puncture due to increased risk of herniation. patient was extubated on November 28, 2023 and was transferred step-down unit with 2 L of nasal cannula but lately on December 02 patient became shortness of breath tachypneic required reintubation. The patient had sepsis of unknown etiology and they thought it might be related to the brain lesions so patient was started on broad-spectrum IV antibiotics with MRSA coverage. Patient was readmitted back at [facility]. Patient seen and examined at bedside. There were no major events overnight, patient has been decreased on sedation and is only currently at 100 microgram/hour of fentanyl. Patient is currently on mechanical ventilation on the following parameters: VT 450, RR 24, FiO2 30%, peep five, saturating 99%. Patient still nonresponsive despite decreasing sedation. Creatinine has been elevated at similar levels than in the past two days. We will try to start Precedex and start weaning off fentanyl. We have not been able to perform an MRI of the head with contrast due to YULIANA which is not improving. We will try to wake her up slowly by decreasing sedation for possible trach collar trial. Meanwhile we will we will continue the patient on ceftriaxone and vancomycin. We transitioned levothyroxine to oral dose at 112 mcg. We will continue enoxaparin 70 mg q.12 for DVT of the left brachial vein. ROS unable to be obtained due to patient current status. Objective vital signs Vital Sign Date Time Temp Pulse Resp B/P (MAP) Pulse Ox O2 Delivery O2 Flow Rate FiO2 12/15/23 11:51 82 24 137/54 (81) 100 30 12/15/23 06:45 98.8 209.8 12/14/23 20:00 Mechanical Ventilator+ Total Intake and Output 12/14/23 12/14/23 12/15/23 15:00 23:00 07:00 Intake Total 754.75 ml 522.5 ml 298.5 ml Output Total 1600 ml 1925 ml Balance 754.75 ml -1077.5 ml -1626.5 ml medications Current Medications Medications Dose Ordered Sig/Leslie Route Start Time Stop Time Status Last Admin Dose Admin Albuterol 2.5 mg Q4HR PRN NEB 12/08/23 19:30 12/15/23 10:42 2.5 MG Ipratropium [place] 0.5 mg Q4HR NEB 12/08/23 22:00 12/15/23 10:42 0.5 MG Ondansetron HCl 4 mg Q4HP PRN IV 12/08/23 19:30 Pantoprazole Sodium 40 mg DAILY IV 12/09/23 10:00 12/15/23 11:36 40 MG Fentanyl Citrate 250 ml @ 2.5 mls/hr Q24H IV 12/08/23 20:30 12/14/23 22:37 22.5 MLS/HR Hydralazine HCl 10 mg Q4HP PRN IV 12/09/23 05:30 12/09/23 05:50 10 MG Midazolam HCl 50 ml @ 5 mls/hr Q10H IV 12/09/23 09:00 12/14/23 21:03 4 MLS/HR Sodium Chloride 10 ml QSHIFT@10,22 IV 12/09/23 22:00 12/15/23 11:36 10 ML Vancomycin HCl 0 ml @ 0 mls/hr UD IV 12/09/23 19:00 Enoxaparin Sodium 70 mg Q12HR SC 12/09/23 22:00 12/15/23 11:37 70 MG Acetaminophen 650 mg Q6HP PRN MO 12/10/23 01:30 12/13/23 06:51 650 MG Enteral Nutritional Formula 1,000 ml 30ML/HR GT 12/10/23 16:45 12/13/23 08:35 1,000 ML Ceftriaxone Sodium/Dextrose 50 ml @ 50 mls/hr Q12HR@09,21 IV 12/13/23 09:00 12/15/23 08:34 50 MLS/HR Metoclopramide HCl 5 mg Q6HPRN PRN IV 12/13/23 21:45 Furosemide 20 mg BID IV 12/14/23 22:00 12/15/23 11:37 20 MG Levothyroxine Sodium 112 mcg QAM@0600 PO 12/15/23 06:00 12/15/23 05:33 112 MCG Diagnostic Test (Pha) 1 strip Q6HR 12/14/23 18:00 12/15/23 11:37 1 STRIP Insulin Human Regular Q6HR SC 12/14/23 18:00 12/15/23 12:38 6 UNITS Dextrose 50 ml UD PRN IV 12/14/23 18:00 Dexmedetomidine HCl 400 mcg/ Dextrose 100 ml @ 3.945 mls/ hr Q24H IV 12/15/23 11:30 Examination Physical Examination General: Patient sedated and intubated on mechanical ventilation: VT 450, RR 24, FiO2 30%, PEEP 5, saturating 99% HEENT: Normocephalic, atraumatic, moist mucous membranes, light gag reflex but present. Respiratory/pulmonary: Bilateral lung sounds grossly clear, no crackles or wheezes at this time. Cardiovascular: Normal heart sounds S1 and S2 with no associated murmurs Abdomen: Abdomen nondistended, there is no pain to palpation in any of the abdominal quadrants, no palpable masses. PEG tube on place with no signs in infection at this time. Extremities: Bilateral upper extremities are edematous and bilateral lower extremity have 1+ pitting edema bilaterally. Peripheral Pulses: 3+ Radial (R). 3+ Radial (L). 3+ Dorsalis pedis (R). 3+ Dorsalis pedis(L) Skin: No rashes or pruritus, there is no sacral edema present at this time. Neurological: Sedated, RASS -3, bilateral pupils reactive to light laboratory and microbiology Laboratory Tests 12/15/23 03:26 Test 12/15/23 03:26 Range/Units Serum Glucose 205 H 74-106 mg/dL Microbiology Date/Time Source Procedure Growth Status 12/14/23 19:42 Voided Urine Urine Culture - Preliminary Resulted 12/09/23 09:28 Blood Blood Culture - Final NO GROWTH AFTER 5 DAYS OF INCUBATION. Complete 12/08/23 19:00 Nose MRSA Screen - Final Complete 12/08/23 19:00 Sputum Gram Stain - Final Complete 12/08/23 19:00 Sputum Respiratory Culture - Final Complete Problem List/Assessment/Plan Problem List/Assessment/Plan Assessment/Plan Neurology Acute metabolic encephalopathy likely in the setting of sepsis versus brain occupying lesions (metastasis/infection/stroke) -patient has a previous MRI at this facility showing no conclusive diagnosis, At [facility] did not got any conclusive diagnosis as well. -failed extubation at [facility] -CT scan of the head performed at this visit show hypodensities in bilateral cerebellum with no acute intracranial abnormalities. -MRI with contrast of the brain should be performed to clarify etiology of brain occupying lesions. Study was hold today due to YULIANA, we will wait for renal function recovery, meanwhile we will try to decrease sedation and assess neurologic response clinically. Brain lessions on MRI w/o contrast, unknown etiology -we will perform brain MRI with contrast once kidney function recovers. -lab workup performed at [facility] was negative for blastomycosis, tuberculosis, cryptococcosis Sedation -currently on sedation with fentanyl 100mcg/hr not requiring any vasopressor at this time. -Will start precedex and wean off fentanyl Cardiology Acute on chronic diastolic heart failure (HFpEF 55%) -Increased furosemide to 20 mg IV BID -Both echocardiograms TTE YOLANDA were performed showing no vegetations or cardiac valve abn. Ruled out endocarditis -YOLANDA performed on 12/10/2023 showed normal cardiac valves with no vegetations at that time. Primary hypertension -blood pressure currently running on the lower side, no meds needed at this time Respiratory S/P tracheostomy performed today in the morning (12/13/23) -still on mechanical ventilator VT 450, RR 24, FiO2 30%, PEEP 5, saturating 99% Acute hypoxic respiratory failure likely in the setting of aspiration pneumonia -continue on IV vancomycin, ceftriaxone and fluconazole. Previously patient was receiving cefepime, ampicillin, metronidazole. -on mech vent as stated above -CT of the chest/abdomen and pelvis showed no acute findings in the abdominal pelvics but showed multifocal airspace disease and cardiomegaly -chest x-ray performed today showed stable pulmonary congestion right lower lobe infiltration can not be excluded -Will come out of sedation, evaluate mental response clinically and eventually try CPAP trial. -ABG this morning showed a pH of 7.38, pCO2 of 26, HCO3 of 15.3 and PaO2 of 95.3 consistent with metabolic acidosis with respiratory alkalosis Sepsis in the setting of aspiration pneumonia -continue IV antibiotics as described above Infectious disease Sepsis likely due to aspiration pneumonia and UTI -continue IV antibiotics as stated above UTI UA suggestive of UTI but last urine culture showed no growth -Ordered new U/A and urine culture Possible brain abscess/infectious occupying lesions -currently on vancomycin, ceftriaxone and fluconazole Endocrinology Type 2 diabetes mellitus, DKA on previous admissions -Continue on sliding scale insulin -Not on Lantus at this time Diabetic polyneuropathy -Patient sedated, monitor Hypothyroidism -Last TSH was 17.87 -today, ordered free T4 and T3 which came back 0.48 and 0.79 respectively -Will start levothyroxine orally through NG tube at [address] [place] [address] Gastroenterology Acute transaminitis, resolved -AST 29, ALT 20 -Continue monitoring Cholelithiasis w/o cholecystitis -CT abdomen showed cholelithiasis w/o findings suggestive of cholecystitis Hematology Superficial thrombophlebitis of right cephalic and basilic veins -no need for anticoagulation DVT of the left brachial vein -continue on enoxaparin 1 milligram/kilogram q.12 Nephrology YULIANA likely due to VMN -today, creatinine is 1.47 and BUN 24 -Monitor kidney function Nutrition -Stopped clinimix and fully transitioned to EN at 20cc/hr, increase to 30cc/hr Lines: Midline of right upper arm placed on 12/08/2023 PICC line on left upper arm placed on 12/09/2023 Goals of care discussed with medical team Critical time spent> 84min Plan discussed with Dr. Razo Plan discussed with: Other My Orders My Orders Orders - DANELLE MENDIETA Procedure Category Date Status Time Communication Order ORDERS 12/14/23 Transmitted 14:35 Levothyroxine Tablet PHA 12/15/23 In Process (Synthroid Tablet) 06:00 Urine Bacterial KULWANT 12/14/23 In Process Culture 16:39 Abg W/ Co-Ox RT 12/15/23 Logged 04:00 Chest Xray 1 View XY 12/15/23 Resulted 04:00 Dietary Evaluation Review Comments: 1) If GI is accessible consider Glucerna 1.2 @ 55 ml/hr goal rate as tolerated 2) If pt remains NPO >7 days consider TPN to meet at least 75% of estimated needs 3) Advance pt diet when medically feasible to a CCHO 45g/Cardiac diet modified per MANAGER MERCHANDISE recommendations 4) Continue current plan of care Expected Outcomes/Goals: 1) Pt to receive nutrition support within 7 days of NPO status 2) Pt diet to advance 3) F/U in 2-3 days Date of Service: Dec 15, 2023 Billing Provider: FREEDOM RAZO MD Common Visit Codes: [id number] CARE 30-74 MIN, [id number] CARE-EACH +30MIN DANELLE MENDIETA RESIDENT Dec 15, 2023 13:07 FREEDOM RAZO MD Dec 16, 2023 12:27
--- NOTE | 2023-12-15 17:24 | DVHPN2 ---
Progress Note - Dictate Date Seen: Dec 15, 2023 Has the PT tested + for MRSA If YES, has PT been informed?: No Medical Necessity Reason Pt with a Central, PICC or Fol: Yes The following are medically ne: PICC Line, Carr Catheter Reason for carr catheter: Strict I&O Subjective No significant overnight events vital signs Vital Sign Date Time Temp Pulse Resp B/P (MAP) Pulse Ox O2 Delivery O2 Flow Rate FiO2 12/15/23 16:24 83 25 127/52 (77) 100 30 12/15/23 15:15 99.0 210.2 12/15/23 08:00 Mechanical Ventilator+ Total Intake and Output 12/14/23 12/14/23 12/15/23 15:00 23:00 07:00 Intake Total 754.75 ml 522.5 ml 301.0 ml Output Total 1600 ml 1925 ml Balance 754.75 ml -1077.5 ml -1624.0 ml medications Current Medications Medications Dose Ordered Sig/Leslie Route Start Time Stop Time Status Last Admin Dose Admin Albuterol 2.5 mg Q4HR PRN NEB 12/08/23 19:30 12/15/23 14:11 2.5 MG Ipratropium [place] 0.5 mg Q4HR NEB 12/08/23 22:00 12/15/23 14:11 0.5 MG Ondansetron HCl 4 mg Q4HP PRN IV 12/08/23 19:30 Pantoprazole Sodium 40 mg DAILY IV 12/09/23 10:00 12/15/23 11:36 40 MG Fentanyl Citrate 250 ml @ 2.5 mls/hr Q24H IV 12/08/23 20:30 12/14/23 22:37 22.5 MLS/HR Hydralazine HCl 10 mg Q4HP PRN IV 12/09/23 05:30 12/09/23 05:50 10 MG Midazolam HCl 50 ml @ 5 mls/hr Q10H IV 12/09/23 09:00 12/14/23 21:03 4 MLS/HR Sodium Chloride 10 ml QSHIFT@10,22 IV 12/09/23 22:00 12/15/23 11:36 10 ML Vancomycin HCl 0 ml @ 0 mls/hr UD IV 12/09/23 19:00 Enoxaparin Sodium 70 mg Q12HR SC 12/09/23 22:00 12/15/23 11:37 70 MG Acetaminophen 650 mg Q6HP PRN MD 12/10/23 01:30 12/13/23 06:51 650 MG Enteral Nutritional Formula 1,000 ml 30ML/HR GT 12/10/23 16:45 12/13/23 08:35 1,000 ML Ceftriaxone Sodium/Dextrose 50 ml @ 50 mls/hr Q12HR@,21 IV 12/13/23 09:00 12/15/23 08:34 50 MLS/HR Metoclopramide HCl 5 mg Q6HPRN PRN IV 12/13/23 21:45 Furosemide 20 mg BID IV 12/14/23 22:00 12/15/23 11:37 20 MG Levothyroxine Sodium 112 mcg QAM@0600 PO 12/15/23 06:00 12/15/23 05:33 112 MCG Diagnostic Test (Pha) 1 strip Q6HR 12/14/23 18:00 12/15/23 11:37 1 STRIP Insulin Human Regular Q6HR SC 12/14/23 18:00 12/15/23 12:38 6 UNITS Dextrose 50 ml UD PRN IV 12/14/23 18:00 Dexmedetomidine HCl 400 mcg/ Dextrose 100 ml @ 3.945 mls/ hr Q24H IV 12/15/23 11:30 objective gen: nad lungs: cta cvs: no rub ext; + edema laboratory and microbiology Laboratory Tests 12/15/23 03:26 Test 12/15/23 03:26 Range/Units Serum Glucose 205 H 74-106 mg/dL Assessment/Plan YULIANA superimposed on CKD secondary to hemodynamic mediated + nephrotoxic ATN 2/2 supratherapeutic vancomycin Acute respiratory failure, intubated on ventilator GI Bleed DM II REC: - stable GFR however repeat trough vancomycin level elevated to 22 - pharmacy dosing vancomycin to desired level. - mild hyperchloremic metabolic acidosis, we will continue to follow Dietary Evaluation Review Comments: 1) If GI is accessible consider Glucerna 1.2 @ 55 ml/hr goal rate as tolerated 2) If pt remains NPO >7 days consider TPN to meet at least 75% of estimated needs 3) Advance pt diet when medically feasible to a CCHO 45g/Cardiac diet modified per BACTERIOLOGY TECHNICIAN recommendations 4) Continue current plan of care Expected Outcomes/Goals: 1) Pt to receive nutrition support within 7 days of NPO status 2) Pt diet to advance 3) F/U in 2-3 days Plan discussed with: MORENA Hernandez MD Dec 15, 2023 17:24
--- NOTE | 2023-12-15 18:22 | DVHPN2 ---
Consult Progress Note Date Seen: Dec 15, 2023 Subjective Patient reports: Feels better (patient remains off sedation, minimally responsive) Objective vital signs Vital Sign Date Time Temp Pulse Resp B/P (MAP) Pulse Ox O2 Delivery O2 Flow Rate FiO2 12/15/23 18:07 176/66 12/15/23 16:24 83 25 100 30 12/15/23 15:15 99.0 210.2 12/15/23 08:00 Mechanical Ventilator+ Total Intake and Output 12/14/23 12/14/23 12/15/23 15:00 23:00 07:00 Intake Total 754.75 ml 522.5 ml 301.0 ml Output Total 1600 ml 1925 ml Balance 754.75 ml -1077.5 ml -1624.0 ml medications Current Medications Medications Dose Ordered Sig/Leslie Route Start Time Stop Time Status Last Admin Dose Admin Albuterol 2.5 mg Q4HR PRN NEB 12/08/23 19:30 12/15/23 14:11 2.5 MG Ipratropium [place] 0.5 mg Q4HR NEB 12/08/23 22:00 12/15/23 14:11 0.5 MG Ondansetron HCl 4 mg Q4HP PRN IV 12/08/23 19:30 Pantoprazole Sodium 40 mg DAILY IV 12/09/23 10:00 12/15/23 11:36 40 MG Fentanyl Citrate 250 ml @ 2.5 mls/hr Q24H IV 12/08/23 20:30 12/14/23 22:37 22.5 MLS/HR Hydralazine HCl 10 mg Q4HP PRN IV 12/09/23 05:30 12/15/23 18:07 10 MG Midazolam HCl 50 ml @ 5 mls/hr Q10H IV 12/09/23 09:00 12/14/23 21:03 4 MLS/HR Sodium Chloride 10 ml QSHIFT@10,22 IV 12/09/23 22:00 12/15/23 11:36 10 ML Vancomycin HCl 0 ml @ 0 mls/hr UD IV 12/09/23 19:00 Enoxaparin Sodium 70 mg Q12HR SC 12/09/23 22:00 12/15/23 11:37 70 MG Acetaminophen 650 mg Q6HP PRN HI 12/10/23 01:30 12/13/23 06:51 650 MG Enteral Nutritional Formula 1,000 ml 30ML/HR GT 12/10/23 16:45 12/15/23 08:00 1,000 ML Ceftriaxone Sodium/Dextrose 50 ml @ 50 mls/hr Q12HR@09,21 IV 12/13/23 09:00 12/15/23 08:34 50 MLS/HR Metoclopramide HCl 5 mg Q6HPRN PRN IV 12/13/23 21:45 Furosemide 20 mg BID IV 12/14/23 22:00 12/15/23 11:37 20 MG Levothyroxine Sodium 112 mcg QAM@0600 PO 12/15/23 06:00 12/15/23 05:33 112 MCG Diagnostic Test (Pha) 1 strip Q6HR 12/14/23 18:00 12/15/23 18:07 1 STRIP Insulin Human Regular Q6HR SC 12/14/23 18:00 12/15/23 12:38 6 UNITS Dextrose 50 ml UD PRN IV 12/14/23 18:00 Dexmedetomidine HCl 400 mcg/ Dextrose 100 ml @ 3.945 mls/ hr Q24H IV 12/15/23 11:30 PHYSICAL EXAM: - GENERAL: Alert and oriented x 3. No acute distress. Well-nourished. -EYES: EOMI. Anicteric. - HENT: Moist mucous membranes. No scleral icterus. No cervical lymphadenopathy. - LUNGS: Clear to auscultation bilaterally. No accessory muscle use. - CARDIOVASCULAR: Regular rate and rhythm. No murmur. No JVD. - ABDOMEN: Soft, non-tender and non-distended. No palpable masses. - EXTREMITIES: No edema. Non-tender.?SKIN: No rashes or lesions. Warm. - NEUROLOGIC: No focal neurological deficits. CN II-XII grossly intact, but not individually tested. - PSYCHIATRIC: Cooperative. Appropriate mood and affect. laboratory and microbiology Laboratory Tests 12/15/23 03:26 Test 12/15/23 03:26 Range/Units Serum Glucose 205 H 74-106 mg/dL Problem List/Assessment/Plan Problem List/Assessment/Plan Assessment/Plan Problems(with codes): (1) Hospital-acquired pneumonia (2) COPD (chronic obstructive pulmonary disease) (3) DKA (diabetic ketoacidosis) (4) HTN (hypertension) (5) Closed right hip fracture Plan/Recommendation ASSESSMENT AND PLAN: ID Problem List: - Aspiration pneumonia - Acute respiratory failure - Diabetic Ketoacidosis (DKA) - Sepsis due to UTI vs pneumonia - Acute Kidney Injury (YULAINA) - Hypernatremia - Transaminitis - Fatty liver - Uncontrolled diabetes (A1C of 11.7) - Hypothyroidism - Hypertension - COPD without exacerbation - Chronic kidney disease (CKD) Assessment: This is a 68-year-old female with a past medical history of diabetes, hypertension, recurrent DKA, hypothyroidism, obesity, COPD, neuropathies, mechanical falls, liver cirrhosis, and multiple joint replacements. The patient presented to the ED with acute loss of consciousness on 11/15/2023, subsequently diagnosed with DKA and an upper GI bleed. While at [facility], a CT and MRI of the head showed concerning lesions for metastasis vs. infectious process and gallbladder issues. Due to renal failure, these images were performed without contrast. An ERCP at [facility] showed no gallstones or common bile duct obstruction. Currently, the patient is reintubated on minimal sedation and receiving broad-spectrum antibiotics for presumed meningitis and other infections. 12/09: Patient has had a repeat abdomen, pelvis, chest Ct with contrast which shows no acute findings in the abdomen and pelvis. multifocal airspace in the lungs was shown. 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 12/12: sp trach 12/13: off sedation Plan: - Recommend aquiring sputum cultures due to fevers and multifocal airspace disease - continue ceftriaxone complete a 3 weeks course, eot 12/24/23 per OSH records - Continue vancomycin, complete a 3 weeks course, eot 12/24/23 per OSH records - Blood cultures monitoring. - Monitor respiratory status and adjust ventilator settings as necessary. - Monitor and manage blood glucose levels. - Supportive care as needed. Isolation Precautions: Standard Total critical care time: Approximately 64 minutes Due to a high probability of clinically significant, life threatening deterioration, the patient required my highest level of preparedness to intervene emergently and I personally spent this critical care time directly and personally managing the patient. This critical care time included obtaining a history; examining the patient; pulse oximetry; ordering and review of studies; arranging urgent treatment with development of a management plan; evaluation of patient's response to treatment; frequent reassessment; and, discussions with other providers. This critical care time was performed to assess and manage the high probability of imminent, life-threatening deterioration that could result in multi-organ failure. It was exclusive of separately billable procedures and treating other patients and teaching time. Assessment and plan was discussed with the patient as written above. Plan is subject to change pending incorporation of new incoming information/diagnostics. Updates may be added as addendum at the bottom (OR TOP) of this note. Thank you for interesting consult. ID will continue to follow. Please contact Infectious disease for any questions or concerns. Nithin Carrasco M.D. [facility] Ph: ? Plan discussed with: Patient Dietary Evaluation Review Comments: 1) If GI is accessible consider Glucerna 1.2 @ 55 ml/hr goal rate as tolerated 2) If pt remains NPO >7 days consider TPN to meet at least 75% of estimated needs 3) Advance pt diet when medically feasible to a CCHO 45g/Cardiac diet modified per BLENDING KETTLE TENDER recommendations 4) Continue current plan of care Expected Outcomes/Goals: 1) Pt to receive nutrition support within 7 days of NPO status 2) Pt diet to advance 3) F/U in 2-3 days NITHIN CARRASCO MD Dec 15, 2023 18:22
[2023-12-16] VITALS (98 sets, daily range): BP systolic 83–185; BP diastolic 21–96; PULSE 76–107; RESP 9–37; TEMP 97.9–99.5; O2SAT 93–100
--- NOTE | 2023-12-16 06:05 | DVH ---
CHEST RADIOGRAPH Indication:reevaluate Technique: Single frontal view of the chest was obtained COMPARISON: XY CHEST XRAY 1 VIEW on DOS: 12/15/23, XY CHEST XRAY 1 VIEW on DOS: 12/14/23, XY CHEST XRAY 1 VIEW on DOS: 12/13/23, XY CHEST XRAY 1 VIEW on DOS: 12/15/23 FINDINGS: Lines and Tubes: Tracheostomy and left PICC in satisfactory position. Lungs: Congestion Pleura: No effusion. No pneumothorax. Cardiomediastinal contours: Cardiomegaly Bones: Unremarkable IMPRESSION: Lines and tubes in satisfactory position. No significant interval change.
[2023-12-16 07:19] LABS: Base Excess -6.4 mmol/L (-2.0-3.0)
[2023-12-16 10:28] LABS: Chloride 113 mmol/L (98-107); Potassium 3.9 mmol/L (3.5-5.1); Sodium 143 mmol/L (136-145)
[2023-12-16 10:29] LABS: Anion Gap 15 (5-15); Calcium 9.9 mg/dL (8.7-10.4); Carbon Dioxide 15 mmol/L (20-31)
[2023-12-16 10:34] LABS: BUN/Creatinine Ratio 14.5 (10.0-20.0); Blood Urea Nitrogen 22 mg/dL (9-23); Glucose 235 mg/dL (74-106)
[2023-12-16 10:35] LABS: Magnesium 1.9 mg/dL (1.6-2.6)
--- NOTE | 2023-12-16 11:02 | DVHPN2 ---
Progress Note - Dictate Date Seen: Dec 16, 2023 Has the PT tested + for MRSA If YES, has PT been informed?: No Medical Necessity Reason Pt with a Central, PICC or Fol: Yes The following are medically ne: PICC Line, Carr Catheter Reason for carr catheter: Strict I&O Subjective Mr. Sanderson is a 68 years old female with a history of hypertension, diabetes, hypothyroidism, COPD, obesity, diabetic polyneuropathy, arthritis, liver cirrhosis, she was transferred back from the [facility] on 12/08/2023 after ERCP. I have seen examined the patient, I have talked to her nurse, her eyes are open, I see spontaneous movement in the feet, but she is nonresponsive to verbal or touch stimuli, but is a strong resistance when they tried to open her mouth LLU Neurosurgery consultation: The lesions likely represents infarct, recommend Re attempting MRI spectrography for further evaluation Neuro consultation: Lumbar puncture was not recommended concerning possibility of herniation EEG, 11/28/2023: No seizure/nonconvulsive status epileptics (I did not see report) TTE, 11/29/23: EF: 70-75% (I did not see report) MRI brain (no report): signal abnormality in bilateral cerebellum and right occipital lobe, punctate foci in right parietal lobe and central semiovale- unable to differentiate subacute ischemia 2/2 MR effects versus infection versus metastasis. Recommend contrast enhanced MRI MRI, 12/05/23: No evidence of demyelinating disease (I did not see report) MRI orbital, face, neck ww 12/05/2023, comparison: MR brain 11/28/2023: No evidence of mucormycosis infection. Multiple irregularly enhancing cerebellar and right occipital lesions were better evaluated on recent brain MRI MRI C-spine, 12/05/2023: No evidence of demyelinating disease in the cervical spine. Moderate degenerative changes. Grade 1 anterolisthesis of C7 on T1 MRI lumbar spine wwo, 12/05/2023: No evidence of demyelinating disease in the lumbar spine. Degenerative changes and grade 1 anterolisthesis of L4 and L5. Mild central spinal stenosis at L4-5. [id number] multilevel bilateral foraminal stenosis as described above MRI spectroscopy 12/05/2023: Cerebellar lesion showing moderately elevated Cho, reduced ZINA, large lipid peaks, and additional tics suspicious for amino acids and alanine. The alanine and amino acids are suspicious for an infectious process Treatment according to discharge note: ASA 81mg Qd, Lipitor 20 mg daily Urinalysis, 12/08/2023: WBC: 93, urine leukocyte esterase: 3+ ABG, 12/09/2023: Metabolic acidosis WBC/HB/PLT/MCV, 12/09/2023: 8.5/7.4/350/92.4 PT/INR/PTT, 12/08/2023: 11.4/1.08 Na, 12/08/2023: 147, 12/09/2023: 146 TBI/AST/ALT/AP, 12/09/2023: 0.2/40/21/278 TG/HDL/LDL/HDL, 11/2023: 136/96/38/32 Vitamin B12, 11/2023: 2537 TSH, 11/2023: 17.87 YOLANDA, 12/10/2023: n the study done today no evidence of vegetation or masses were discernible. There is mild mitral valve regurgitation with mild anterior leaflet prolapse. No significant intracardiac lesion was discernible Echocardiogram, 11/18/2023: Normal left ventricular size and dimension. Normal left ventricular systolic function estimated ejection fraction 55%. There is a grade 1 diastolic dysfunction. Normal right ventricular size and dimension. Normal right ventricular systolic function. Mildly increased right ventricular systolic pressure 34 mm of mercury. Normal biatrial size and dimension. Normal aortic valve structure and function. Normal mitral valve structure and function. Normal tricuspid valve structure and function. The pulmonary valve is grossly normal. No pericardial effusion. Carotid Doppler, 11/21/2023: 1. No evidence of hemodynamically significant stenosis within the left carotid arterial system. 2. Antegrade flow within the left vertebral artery. 3. Cannot assess the right carotid arterial system due to central line artifact and overlying bandage. Extremity venous study, 12/09/2023: Thrombus in the LEFT cephalic and brachial vein. Thrombus in the RIGHT cephalic and basilic vein.If clinical concern/symptoms persist or worsen, short-interval follow-up study is suggested. Chest x-ray, 12/08/2023: 1. Endotracheal and gastric tubes in place as described. Satisfactory position. 2. Removal of right PICC and right IJ central venous catheter since prior. 3. Mild cardiomegaly and pulmonary vascular congestion. 4. Small opacity in the lateral right lung base which could reflect atelectasis or pneumonia MRI head, 11/21/2023: Signal abnormality in the bilateral cerebellum and right occipital lobe, as well as punctate foci in the right parietal lobe and centrum semiovale. Findings could represent regions of subacute ischemia due to embolic infarcts; however, underlying metastases or infection are not excluded. Recommend contrast-enhanced MRI vital signs Vital Sign Date Time Temp Pulse Resp B/P (MAP) Pulse Ox O2 Delivery O2 Flow Rate FiO2 12/16/23 10:45 99.0 98 13 138/60 (86) 100 210.2 12/16/23 10:10 30 12/16/23 10:10 Mechanical Ventilator Total Intake and Output 12/15/23 12/15/23 12/16/23 15:00 23:00 07:00 Intake Total 60.0 ml 250 ml 298 ml Output Total 1800 ml 2600 ml Balance 60.0 ml -1550 ml -2302 ml medications Current Medications Medications Dose Ordered Sig/Leslie Route Start Time Stop Time Status Last Admin Dose Admin Albuterol 2.5 mg Q4HR PRN NEB 12/08/23 19:30 12/16/23 06:03 2.5 MG Ipratropium [place] 0.5 mg Q4HR NEB 12/08/23 22:00 12/16/23 10:09 0.5 MG Ondansetron HCl 4 mg Q4HP PRN IV 12/08/23 19:30 Pantoprazole Sodium 40 mg DAILY IV 12/09/23 10:00 12/16/23 10:01 40 MG Fentanyl Citrate 250 ml @ 2.5 mls/hr Q24H IV 12/08/23 20:30 12/14/23 22:37 22.5 MLS/HR Hydralazine HCl 10 mg Q4HP PRN IV 12/09/23 05:30 12/16/23 10:32 10 MG Midazolam HCl 50 ml @ 5 mls/hr Q10H IV 12/09/23 09:00 12/14/23 21:03 4 MLS/HR Sodium Chloride 10 ml QSHIFT@10,22 IV 12/09/23 22:00 12/16/23 10:02 10 ML Vancomycin HCl 0 ml @ 0 mls/hr UD IV 12/09/23 19:00 Enoxaparin Sodium 70 mg Q12HR SC 12/09/23 22:00 12/16/23 10:04 70 MG Acetaminophen 650 mg Q6HP PRN [place] 12/10/23 01:30 12/13/23 06:51 650 MG Enteral Nutritional Formula 1,000 ml 30ML/HR GT 12/10/23 16:45 12/15/23 08:00 1,000 ML Ceftriaxone Sodium/Dextrose 50 ml @ 50 mls/hr Q12HR@,21 IV 12/13/23 09:00 12/16/23 10:02 50 MLS/HR Metoclopramide HCl 5 mg Q6HPRN PRN IV 12/13/23 21:45 Furosemide 20 mg BID IV 12/14/23 22:00 12/16/23 10:02 20 MG Levothyroxine Sodium 112 mcg QAM@0600 PO 12/15/23 06:00 12/16/23 06:18 112 MCG Diagnostic Test (Pha) 1 strip Q6HR 12/14/23 18:00 12/16/23 05:39 1 STRIP Insulin Human Regular Q6HR SC 12/14/23 18:00 12/15/23 23:32 6 UNITS Dextrose 50 ml UD PRN IV 12/14/23 18:00 Dexmedetomidine HCl 400 mcg/ Dextrose 100 ml @ 3.945 mls/ hr Q24H IV 12/15/23 11:30 objective The patient is well-nourished and well-developed with no distress. MENTAL STATUS: Subjective CRANIAL NERVES: Pupils are equal, round and reactive, small. There are c onjugated eye movements. No signs of facial weakness. There are no gagging or coughing reflexes during oral care SENSATION: Responses to pain stimuli. MOTOR: Normal tone in the upper and lower extremity. Normal muscle bulk. No fasciculations. Spontaneous movement in the feet noticed REFLEXES: Deep tendon reflexes are symmetrical. No pathological reflexes. CEREBELLAR/COORDINATION: Deferred GAIT/STATION: deferred. laboratory and microbiology Laboratory Tests 12/16/23 08:19 Test 12/16/23 08:19 Range/Units Serum Glucose 235 H 74-106 mg/dL Problem List Abnormal MRI brain scan, likely the patient has multiple stroke Coma Metabolic encephalopathy Hypoxic encephalopathy Multiple strokes Ketoacidosis Bilateral upper extremity deep venous thrombosis Rule out subacute endocarditis Status post tracheostomy Status post PEG tube Assessment/Plan Monitoring Supportive treatment ICU care Respiratory support Stabilize vitals IV antibiotics Lovenox 1 mg/kg subcutaneous b.i.d. Lipitor 20 mg daily Tube feeding Cardiology on case Infectious disease on case More recommendation per clinical course This medical document was created using an electronic medical record system with Sferra dictation system. Although this document has been carefully reviewed, there may still be some phonetic and typographical errors. These areas are purely typographical due to imperfections of the software programs, and do not reflect any compromise in the patient's medical care. Prognosis poor Dietary Evaluation Review Comments: 1) If GI is accessible consider Glucerna 1.2 @ 55 ml/hr goal rate as tolerated 2) If pt remains NPO >7 days consider TPN to meet at least 75% of estimated needs 3) Advance pt diet when medically feasible to a CCHO 45g/Cardiac diet modified per BRAKE REPAIR MECHANIC recommendations 4) Continue current plan of care Expected Outcomes/Goals: 1) Pt to receive nutrition support within 7 days of NPO status 2) Pt diet to advance 3) F/U in 2-3 days Plan discussed with: Other DREW FAGAN MD Dec 16, 2023 11:02
[2023-12-16] MEDS ORDERED: AMPICILLIN & SULBACTAM SODIUM 3 GM in SODIUM CHL 0.9% 100 ML IV SCH (12:30)
[2023-12-16 13:43] LABS: Eosinophils # (auto) 0.5 10 ^3/uL (0-0.8); Hemoglobin 8.4 g/dL (12.2-16.2); Lymphocytes # (auto) 1.4 10 ^3/uL (0.4-5.4); Neutrophils # (auto) 8.4 10 ^3/uL (1.6-8.6)
[2023-12-16 13:45] LABS: Basophils # (auto) 0.1 10 ^3/uL (0-0.2); Basophils % (auto) 0.5 % (0.0-2.0); Eosinophils % (auto) 4.3 % (0.0-7.0); Hematocrit 26.1 % (36.0-46.0); Mean Corpuscular Hemoglobin 29.7 pg (28.0-32.0); Mean Corpuscular Hgb Conc. 32.3 g/dL (32.0-36.0); Mean Corpuscular Volume 91.9 fL (80.0-100.0); Monocytes # (auto) 0.4 10 ^3/uL (0-1.3); Monocytes % (auto) 3.3 % (0.0-12.0); Neutrophils % (auto) 78.9 % (37.0-80.0); Platelet Count (auto) 369 10^3/uL (140-450); Red Blood Cells 2.84 10^6/uL (4.0-5.20); Red Cell Distribution Width 16.9 % (11.8-14.3); White Blood Cell 10.6 10^3/uL (4.4-10.8)
--- NOTE | 2023-12-16 13:55 | DVHPN2 ---
Progress Note - Dictate Date Seen: Dec 16, 2023 Has the PT tested + for MRSA If YES, has PT been informed?: No Medical Necessity Reason Pt with a Central, PICC or Fol: Yes The following are medically ne: PICC Line, Carr Catheter Reason for carr catheter: Strict I&O Subjective Clinically unchanged, significant negative fluid balance vital signs Vital Sign Date Time Temp Pulse Resp B/P (MAP) Pulse Ox O2 Delivery O2 Flow Rate FiO2 12/16/23 12:00 30 12/16/23 11:55 101 25 145/54 (84) 99 12/16/23 10:45 99.0 210.2 12/16/23 10:10 Mechanical Ventilator Total Intake and Output 12/15/23 12/15/23 12/16/23 15:00 23:00 07:00 Intake Total 60.0 ml 250 ml 298 ml Output Total 1800 ml 2600 ml Balance 60.0 ml -1550 ml -2302 ml medications Current Medications Medications Dose Ordered Sig/Leslie Route Start Time Stop Time Status Last Admin Dose Admin Albuterol 2.5 mg Q4HR PRN NEB 12/08/23 19:30 12/16/23 06:03 2.5 MG Ipratropium [place] 0.5 mg Q4HR NEB 12/08/23 22:00 12/16/23 10:09 0.5 MG Ondansetron HCl 4 mg Q4HP PRN IV 12/08/23 19:30 Pantoprazole Sodium 40 mg DAILY IV 12/09/23 10:00 12/16/23 10:01 40 MG Fentanyl Citrate 250 ml @ 2.5 mls/hr Q24H IV 12/08/23 20:30 12/14/23 22:37 22.5 MLS/HR Hydralazine HCl 10 mg Q4HP PRN IV 12/09/23 05:30 12/16/23 10:32 10 MG Midazolam HCl 50 ml @ 5 mls/hr Q10H IV 12/09/23 09:00 12/14/23 21:03 4 MLS/HR Sodium Chloride 10 ml QSHIFT@10,22 IV 12/09/23 22:00 12/16/23 10:02 10 ML Enoxaparin Sodium 70 mg Q12HR SC 12/09/23 22:00 12/16/23 10:04 70 MG Acetaminophen 650 mg Q6HP PRN [place] 12/10/23 01:30 12/13/23 06:51 650 MG Enteral Nutritional Formula 1,000 ml 30ML/HR GT 12/10/23 16:45 12/15/23 08:00 1,000 ML Metoclopramide HCl 5 mg Q6HPRN PRN IV 12/13/23 21:45 Levothyroxine Sodium 112 mcg QAM@0600 PO 12/15/23 06:00 12/16/23 06:18 112 MCG Diagnostic Test (Pha) 1 strip Q6HR 12/14/23 18:00 12/16/23 12:31 1 STRIP Insulin Human Regular Q6HR SC 12/14/23 18:00 12/16/23 12:32 8 UNITS Dextrose 50 ml UD PRN IV 12/14/23 18:00 Dexmedetomidine HCl 400 mcg/ Dextrose 100 ml @ 3.945 mls/ hr Q24H IV 12/15/23 11:30 Furosemide 20 mg DAILY IV 12/17/23 10:00 Metoprolol Tartrate 25 mg BID PO 12/16/23 22:00 Ampicillin Sodium/ Sulbactam Sodium 3 gm/Sodium Chloride 100 ml @ 100 mls/hr Q6H IV 12/16/23 13:00 objective gen: nad lungs: cta cvs: no rub ext; + edema laboratory and microbiology Laboratory Tests 12/16/23 12:55 12/16/23 08:19 Test 12/16/23 08:19 Range/Units Serum Glucose 235 H 74-106 mg/dL Assessment/Plan YULIANA superimposed on CKD secondary to hemodynamic mediated + nephrotoxic ATN 2/2 supratherapeutic vancomycin Acute respiratory failure, intubated on ventilator GI Bleed DM II REC: - consideration for down titration of loop diuretic, noted slight up trend to serum creatinine - We will continue to follow Dietary Evaluation Review Comments: 1) If GI is accessible consider Glucerna 1.2 @ 55 ml/hr goal rate as tolerated 2) If pt remains NPO >7 days consider TPN to meet at least 75% of estimated needs 3) Advance pt diet when medically feasible to a CCHO 45g/Cardiac diet modified per EXHIBITIONS CURATOR recommendations 4) Continue current plan of care Expected Outcomes/Goals: 1) Pt to receive nutrition support within 7 days of NPO status 2) Pt diet to advance 3) F/U in 2-3 days Plan discussed with: MORENA Hernandez MD Dec 16, 2023 13:55
[2023-12-16] MEDS ORDERED: VANCOMYCIN 500 MG in D5W 5% 100 ML IV ONE (14:00)
[2023-12-16] MEDS: METOPROLOL TARTRATE 25 MG TAB PO ONE (15:05)
[2023-12-16] MEDS: AMPICILLIN & SULBACTAM SODIUM 3 GM in SODIUM CHL 0.9% 100 ML IV SCH (15:06)
--- NOTE | 2023-12-16 15:29 | DVHPNRES ---
Progress Note Date Seen: Dec 16, 2023 Resident Creating Document: DANELLE MENDIETA RESIDENT Has the PT tested + for MRSA If YES, has PT been informed?: No Medical Necessity Reason Pt with a Central, PICC or Fol: Yes The following are medically ne: PICC Line, Carr Catheter Reason for carr catheter: Strict I&O Subjective Review of Systems This is a 68-year-old female with past medical history of hypertension, diabetes mellitus type 2, hypothyroidism, COPD, obesity, diabetic polyneuropathy, liver cirrhosis, right knee replacement, multiple admissions for DKA. The patient was initially seen at [facility] on 11/16/2023 where he was intubated and transferred to our facility. At our facility he was treated for DKA and was found to have space occupying lesions in the brain (metastasis/infection/stroke) MRI of the head was done with no conclusive findings at that time. CT scan of the abdomen and pelvis at that time showed dilation of common bile duct and GI recommended ERCP/endoscopic ultrasound so patient was transferred on 11/26/2023 to [facility]. ERCP and ultrasound was performed showing no obstruction either malignancy or stone at that time. Neurosurgery at [facility] evaluated MRI results and stated that could be due to infarcts. Neurologist was against lumbar puncture due to increased risk of herniation. patient was extubated on November 28, 2023 and was transferred step-down unit with 2 L of nasal cannula but lately on December 02 patient became shortness of breath tachypneic required reintubation. The patient had sepsis of unknown etiology and they thought it might be related to the brain lesions so patient was started on broad-spectrum IV antibiotics with MRSA coverage. Patient was readmitted back at [facility]. Patient seen and examined at bedside. Patient is currently not on sedation or vasopressors at this time. Patient is slightly moving extremities but not fully responding. Will decrease Lasix to 20mg IV qd since the patients kidney function is not improving. We will also discontinue vancomycin and ceftriaxone and will start the patient on IV unasyn. Will start metoprolol 25mg IV BID for tachycardia and slight hypertension. ABG was reviewed this morning showing a pH 7.41, Pco2 27, HCO3 17.1, Pao2 101.8 consistent with metabolic acidosis with resp alkalosis. we are still pending for urine culture. ROS unable to be obtained due to intubation. Objective vital signs Vital Sign Date Time Temp Pulse Resp B/P (MAP) Pulse Ox O2 Delivery O2 Flow Rate FiO2 12/16/23 12:00 30 12/16/23 11:55 101 25 145/54 (84) 99 12/16/23 10:45 99.0 210.2 12/16/23 10:10 Mechanical Ventilator Total Intake and Output 12/15/23 12/15/23 12/16/23 15:00 23:00 07:00 Intake Total 60.0 ml 250 ml 298 ml Output Total 1800 ml 2600 ml Balance 60.0 ml -1550 ml -2302 ml medications Current Medications Medications Dose Ordered Sig/Leslie Route Start Time Stop Time Status Last Admin Dose Admin Albuterol 2.5 mg Q4HR PRN NEB 12/08/23 19:30 12/16/23 06:03 2.5 MG Ipratropium [place] 0.5 mg Q4HR NEB 12/08/23 22:00 12/16/23 10:09 0.5 MG Ondansetron HCl 4 mg Q4HP PRN IV 12/08/23 19:30 Pantoprazole Sodium 40 mg DAILY IV 12/09/23 10:00 12/16/23 10:01 40 MG Fentanyl Citrate 250 ml @ 2.5 mls/hr Q24H IV 12/08/23 20:30 12/14/23 22:37 22.5 MLS/HR Hydralazine HCl 10 mg Q4HP PRN IV 12/09/23 05:30 12/16/23 10:32 10 MG Midazolam HCl 50 ml @ 5 mls/hr Q10H IV 12/09/23 09:00 12/14/23 21:03 4 MLS/HR Sodium Chloride 10 ml QSHIFT@10,22 IV 12/09/23 22:00 12/16/23 10:02 10 ML Enoxaparin Sodium 70 mg Q12HR SC 12/09/23 22:00 12/16/23 10:04 70 MG Acetaminophen 650 mg Q6HP PRN [place] 12/10/23 01:30 12/13/23 06:51 650 MG Enteral Nutritional Formula 1,000 ml 30ML/HR GT 12/10/23 16:45 12/15/23 08:00 1,000 ML Metoclopramide HCl 5 mg Q6HPRN PRN IV 12/13/23 21:45 Levothyroxine Sodium 112 mcg QAM@0600 PO 12/15/23 06:00 12/16/23 06:18 112 MCG Diagnostic Test (Pha) 1 strip Q6HR 12/14/23 18:00 12/16/23 12:31 1 STRIP Insulin Human Regular Q6HR SC 12/14/23 18:00 12/16/23 12:32 8 UNITS Dextrose 50 ml UD PRN IV 12/14/23 18:00 Dexmedetomidine HCl 400 mcg/ Dextrose 100 ml @ 3.945 mls/ hr Q24H IV 12/15/23 11:30 Furosemide 20 mg DAILY IV 12/17/23 10:00 Metoprolol Tartrate 25 mg BID PO 12/16/23 22:00 Ampicillin Sodium/ Sulbactam Sodium 3 gm/Sodium Chloride 100 ml @ 100 mls/hr Q6H IV 12/16/23 13:00 Examination Physical Examination General: Patient not sedated but not fully responding, and intubated on mechanical ventilation: VT 450, RR 24, FiO2 30%, PEEP 5, saturating 99% HEENT: Normocephalic, atraumatic, moist mucous membranes, light gag reflex but present. Respiratory/pulmonary: Bilateral lung sounds grossly clear, no crackles or wheezes at this time. Cardiovascular: Irregular heart sounds S1 and S2 with no associated murmurs. monitor reviewed and was showing PVCs. Abdomen: Abdomen nondistended, there is no pain to palpation in any of the abdominal quadrants, no palpable masses. PEG tube on place with no signs in infection at this time. Extremities: There is 1+pitting edema on th left lower extremity likely due to BP cuff, right lower extremity is unremarkable. Peripheral Pulses: 3+ Radial (R). 3+ Radial (L). 3+ Dorsalis pedis (R). 3+ Dorsalis pedis(L) Skin: No rashes or pruritus, there is no sacral edema present at this time. Neurological: bilateral pupils reactive to light, not responding to sternal rub. laboratory and microbiology Laboratory Tests 12/16/23 12:55 12/16/23 08:19 Test 12/16/23 08:19 Range/Units Serum Glucose 235 H 74-106 mg/dL Microbiology Date/Time Source Procedure Growth Status 12/14/23 19:42 Voided Urine Urine Culture - Preliminary Resulted 12/09/23 09:28 Blood Blood Culture - Final NO GROWTH AFTER 5 DAYS OF INCUBATION. Complete 12/08/23 19:00 Nose MRSA Screen - Final Complete 12/08/23 19:00 Sputum Gram Stain - Final Complete 12/08/23 19:00 Sputum Respiratory Culture - Final Complete Problem List/Assessment/Plan Problem List/Assessment/Plan Assessment/Plan Neurology Acute metabolic encephalopathy likely in the setting of sepsis versus brain occupying lesions (metastasis/infection/stroke) -patient has a previous MRI at this facility showing no conclusive diagnosis, At [facility] [place] did not got any conclusive diagnosis as well. -failed extubation at [facility] -CT scan of the head performed at this visit show hypodensities in bilateral cerebellum with no acute intracranial abnormalities. -MRI with contrast of the brain should be performed to clarify etiology of brain occupying lesions. Study was hold today due to YULIANA, we will wait for renal function recovery, meanwhile we will try to decrease sedation and assess neurologic response clinically. Brain lessions on MRI w/o contrast, unknown etiology -we will perform brain MRI with contrast once kidney function recovers. -lab workup performed at [facility] was negative for blastomycosis, tuberculosis, cryptococcosis Sedation -OFF sedation Not on vasopressors at this time. Cardiology Acute on chronic diastolic heart failure (HFpEF 55%) -Decrease furosemide to 20 mg IV QD -Both echocardiograms TTE YOLANDA were performed showing no vegetations or cardiac valve abn. Ruled out endocarditis -YOLANDA performed on 12/10/2023 showed normal cardiac valves with no vegetations at that time. Primary hypertension -Started metoprolol 25mg PO BID Respiratory S/P tracheostomy performed today in the morning (12/13/23) -still on mechanical ventilator VT 450, RR 24, FiO2 30%, PEEP 5, saturating 99% Acute hypoxic respiratory failure likely in the setting of aspiration pneumonia -Discontinue ceftriaxone, vancomycin and fluconazole -Start IV Unasyn -on mech vent as stated above -CT of the chest/abdomen and pelvis showed no acute findings in the abdominal pelvics but showed multifocal airspace disease and cardiomegaly -chest x-ray performed today showed stable pulmonary congestion right lower lobe infiltration can not be excluded -Will come out of sedation, evaluate mental response clinically and eventually try CPAP trial. -ABG was reviewed this morning showing a pH 7.41, Pco2 27, HCO3 17.1, Pao2 101.8 consistent with metabolic acidosis with resp alkalosis Sepsis in the setting of aspiration pneumonia -continue IV antibiotics as described above Infectious disease Sepsis likely due to aspiration pneumonia and UTI -continue IV antibiotics as stated above UTI UA suggestive of UTI but last urine culture showed no growth -Ordered new U/A came back suggesting UTI -Urine culture prelim is negative Possible brain abscess/infectious occupying lesions -Discontinue vancomycin, ceftriaxone and fluconazole Endocrinology Type 2 diabetes mellitus, DKA on previous admissions -Continue on sliding scale insulin -Not on Lantus at this time Diabetic polyneuropathy -Patient sedated, monitor Hypothyroidism -Last TSH was 17.87 -today, ordered free T4 and T3 which came back 0.48 and 0.79 respectively -Continue levothyroxine 112mcgQAM Gastroenterology Acute transaminitis, resolved -AST 29, ALT 20 -Continue monitoring Cholelithiasis w/o cholecystitis -CT abdomen showed cholelithiasis w/o findings suggestive of cholecystitis Hematology Superficial thrombophlebitis of right cephalic and basilic veins -no need for anticoagulation DVT of the left brachial vein -continue on enoxaparin 1 milligram/kilogram q.12 Nephrology YULIANA likely due to VMN -today, creatinine is 1.52 and BUN 22 -Monitor kidney function Nutrition -EN at 20cc/hr, increase to 30cc/hr Lines: Midline of right upper arm placed on 12/08/2023 PICC line on left upper arm placed on 12/09/2023 Goals of care discussed with medical team Critical time spent> 81min Plan discussed with Dr. Razo Plan discussed with: Other My Orders My Orders Orders - DANELLE MENDIETA RESIDENT Procedure Category Date Status Time Abg W/ Co-Ox RT 12/16/23 Logged 04:00 Chest Xray 1 View XY 12/16/23 Resulted 04:00 Dietary Evaluation Review Comments: 1) If GI is accessible consider Glucerna 1.2 @ 55 ml/hr goal rate as tolerated 2) If pt remains NPO >7 days consider TPN to meet at least 75% of estimated needs 3) Advance pt diet when medically feasible to a CCHO 45g/Cardiac diet modified per NUTRITION ASSOCIATE recommendations 4) Continue current plan of care Expected Outcomes/Goals: 1) Pt to receive nutrition support within 7 days of NPO status 2) Pt diet to advance 3) F/U in 2-3 days Date of Service: Dec 16, 2023 Billing Provider: FREEDOM RAZO MD Common Visit Codes: 24182-[id number] CARE 30-74 MIN, [id number] CARE-EACH +30MIN DANELLE MENDIETA RESIDENT Dec 16, 2023 15:29 FREEDOM RAZO MD Dec 19, 2023 15:07
[2023-12-16] MEDS: METOPROLOL TARTRATE 25 MG TAB PO SCH (22:54)
[2023-12-17] VITALS (84 sets, daily range): BP systolic 107–256; BP diastolic 21–228; PULSE 69–98; RESP 11–29; TEMP 98.1–99.1; O2SAT 98–100
--- NOTE | 2023-12-17 04:02 | DVH ---
CHEST RADIOGRAPH Indication:reevaluate Technique: Single frontal view of the chest was obtained Comparison: XY CHEST XRAY 1 VIEW on DOS: 12/16/23, XY CHEST XRAY 1 VIEW on DOS: 12/15/23, XY CHEST XRAY 1 VIEW on DOS: 12/14/23, XY CHEST XRAY 1 VIEW on DOS: 12/13/23, XY CHEST XRAY 1 VIEW on DOS: 12/13/23, XY CHEST XRAY 1 VIEW on DOS: 12/16/23 FINDINGS: Lines and Tubes: Tracheostomy and left PICC in satisfactory position. Lungs: Congestion Pleura: No effusion. No pneumothorax. Cardiomediastinal contours: Cardiomegaly Bones: Unremarkable IMPRESSION: Lines and tubes in satisfactory position. No significant interval change.
[2023-12-17 04:33] LABS: Basophils # (auto) 0.1 10 ^3/uL (0-0.2); Basophils % (auto) 0.5 % (0.0-2.0); Eosinophils # (auto) 0.4 10 ^3/uL (0-0.8); Eosinophils % (auto) 4.1 % (0.0-7.0); Hematocrit 28.7 % (36.0-46.0); Hemoglobin 9.2 g/dL (12.2-16.2); Lymphocytes % (auto) 20.5 % (10.0-50.0); Mean Corpuscular Hemoglobin 28.5 pg (28.0-32.0); Mean Corpuscular Hgb Conc. 32.2 g/dL (32.0-36.0); Mean Corpuscular Volume 88.6 fL (80.0-100.0); Monocytes # (auto) 0.4 10 ^3/uL (0-1.3); Monocytes % (auto) 3.9 % (0.0-12.0); Neutrophils # (auto) 6.9 10 ^3/uL (1.6-8.6); Nucleated Red Blood Cells % 0.1 %; Platelet Count (auto) 407 10^3/uL (140-450); Red Blood Cells 3.24 10^6/uL (4.0-5.20); Red Cell Distribution Width 16.7 % (11.8-14.3); White Blood Cell 9.8 10^3/uL (4.4-10.8)
[2023-12-17 04:57] LABS: Alanine Aminotransferase 24 U/L (7-40); Albumin 3.4 g/dL (3.2-4.8); Alkaline Phosphatase 202 U/L (46-116); Anion Gap 14 (5-15); Aspartate Aminotransferase 25 U/L (13-40); BUN/Creatinine Ratio 15.4 (10.0-20.0); Blood Urea Nitrogen 23 mg/dL (9-23); Calcium 10.4 mg/dL (8.7-10.4); Carbon Dioxide 20 mmol/L (20-31); Chloride 113 mmol/L (98-107); Glucose 224 mg/dL (74-106); Magnesium 1.9 mg/dL (1.6-2.6); Potassium 2.9 mmol/L (3.5-5.1); Sodium 147 mmol/L (136-145)
[2023-12-17 04:58] LABS: Bilirubin, Total < 0.2 mg/dL (0.2-1.0); Phosphorus 2.2 mg/dL (2.4-5.1); Total Protein 6.5 g/dL (5.7-8.2)
[2023-12-17] MEDS: POTASSIUM CHL 20MEQ/100ML 100 ML IV SCH (06:10)
[2023-12-17 07:04] LABS: Base Excess -7.9 mmol/L (-2.0-3.0)
[2023-12-17] MEDS ORDERED: POTASSIUM PHOSPHATE 26.4 MEQ in SODIUM CHL 0.9% 100 ML IV ONE (07:45)
[2023-12-17] MEDS ORDERED: POTASSIUM PHOSPHATE 22 MEQ in SODIUM CHL 0.9% 100 ML IV ONE (08:00)
[2023-12-17] MEDS: FUROSEMIDE 20 MG/2 ML VIAL IV SCH (09:58)
[2023-12-17] MEDS: FREE WATER GT SCH (12:13)
--- NOTE | 2023-12-17 13:01 | DVHPN2 ---
Progress Note - Dictate Date Seen: Dec 17, 2023 Has the PT tested + for MRSA If YES, has PT been informed?: No Medical Necessity Reason Pt with a Central, PICC or Fol: Yes The following are medically ne: PICC Line, Carr Catheter Reason for carr catheter: Strict I&O Subjective No significant overnight events vital signs Vital Sign Date Time Temp Pulse Resp B/P (MAP) Pulse Ox O2 Delivery O2 Flow Rate FiO2 12/17/23 12:00 30 12/17/23 11:03 88 149/63 12/17/23 10:31 98.4 17 100 209.1 12/17/23 08:00 Mechanical Ventilator+ Total Intake and Output 12/16/23 12/16/23 12/17/23 15:00 23:00 07:00 Intake Total 470 ml 349 ml Output Total 1900 ml 550 ml Balance -1430 ml -201 ml medications Current Medications Medications Dose Ordered Sig/Leslie Route Start Time Stop Time Status Last Admin Dose Admin Albuterol 2.5 mg Q4HR PRN NEB 12/08/23 19:30 12/17/23 10:00 2.5 MG Ipratropium [place] 0.5 mg Q4HR NEB 12/08/23 22:00 12/17/23 10:00 0.5 MG Ondansetron HCl 4 mg Q4HP PRN IV 12/08/23 19:30 Pantoprazole Sodium 40 mg DAILY IV 12/09/23 10:00 12/16/23 10:01 40 MG Fentanyl Citrate 250 ml @ 2.5 mls/hr Q24H IV 12/08/23 20:30 12/14/23 22:37 22.5 MLS/HR Hydralazine HCl 10 mg Q4HP PRN IV 12/09/23 05:30 12/17/23 01:59 10 MG Midazolam HCl 50 ml @ 5 mls/hr Q10H IV 12/09/23 09:00 12/14/23 21:03 4 MLS/HR Sodium Chloride 10 ml QSHIFT@10,22 IV 12/09/23 22:00 12/17/23 09:59 10 ML Enoxaparin Sodium 70 mg Q12HR SC 12/09/23 22:00 12/17/23 09:59 70 MG Acetaminophen 650 mg Q6HP PRN [place] 12/10/23 01:30 12/13/23 06:51 650 MG Enteral Nutritional Formula 1,000 ml 30ML/HR GT 12/10/23 16:45 12/15/23 08:00 1,000 ML Metoclopramide HCl 5 mg Q6HPRN PRN IV 12/13/23 21:45 Levothyroxine Sodium 112 mcg QAM@0600 PO 12/15/23 06:00 12/17/23 06:11 112 MCG Diagnostic Test (Pha) 1 strip Q6HR 12/14/23 18:00 12/17/23 12:13 1 STRIP Insulin Human Regular Q6HR SC 12/14/23 18:00 12/17/23 12:14 6 UNITS Dextrose 50 ml UD PRN IV 12/14/23 18:00 Dexmedetomidine HCl 400 mcg/ Dextrose 100 ml @ 3.945 mls/ hr Q24H IV 12/15/23 11:30 Furosemide 20 mg DAILY IV 12/17/23 10:00 12/17/23 09:58 20 MG Metoprolol Tartrate 25 mg BID PO 12/16/23 22:00 12/17/23 09:58 25 MG Ampicillin Sodium/ Sulbactam Sodium 3 gm/Sodium Chloride 100 ml @ 100 mls/hr Q6H IV 12/16/23 13:00 12/17/23 09:59 100 MLS/HR Lorazepam 1 mg Q4H PRN IV 12/17/23 00:15 Purified Water 250 ml Q6HR GT 12/17/23 12:00 12/17/23 12:13 250 ML objective gen: nad lungs: cta cvs: no rub ext; + edema laboratory and microbiology Laboratory Tests 12/17/23 03:35 Test 12/17/23 03:35 Range/Units Serum Glucose 224 H 74-106 mg/dL Assessment/Plan YULIANA superimposed on CKD secondary to hemodynamic mediated + nephrotoxic ATN 2/2 supratherapeutic vancomycin Acute respiratory failure, intubated on ventilator GI Bleed DM II REC: - initiation of enteral free water - We will continue monitor electrolytes, [Na], and eGFR Dietary Evaluation Review Comments: 1) If GI is accessible consider Glucerna 1.2 @ 55 ml/hr goal rate as tolerated 2) If pt remains NPO >7 days consider TPN to meet at least 75% of estimated needs 3) Advance pt diet when medically feasible to a [facility]/Cardiac diet modified per ACCOUNTING LECTURER recommendations 4) Continue current plan of care Expected Outcomes/Goals: 1) Pt to receive nutrition support within 7 days of NPO status 2) Pt diet to advance 3) F/U in 2-3 days Plan discussed with: MORENA Hernandez MD Dec 17, 2023 13:00
--- NOTE | 2023-12-17 13:16 | DVHPNRES ---
Progress Note Date Seen: Dec 17, 2023 Resident Creating Document: DANELLE MENDIETA RESIDENT Has the PT tested + for MRSA If YES, has PT been informed?: No Medical Necessity Reason Pt with a Central, PICC or Fol: Yes The following are medically ne: PICC Line, Carr Catheter Reason for carr catheter: Strict I&O Subjective Review of Systems This is a 68-year-old female with past medical history of hypertension, diabetes mellitus type 2, hypothyroidism, COPD, obesity, diabetic polyneuropathy, liver cirrhosis, right knee replacement, multiple admissions for DKA. The patient was initially seen at [facility] on 11/16/2023 where he was intubated and transferred to our facility. At our facility he was treated for DKA and was found to have space occupying lesions in the brain (metastasis/infection/stroke) MRI of the head was done with no conclusive findings at that time. CT scan of the abdomen and pelvis at that time showed dilation of common bile duct and GI recommended ERCP/endoscopic ultrasound so patient was transferred on 11/26/2023 to [facility]. ERCP and ultrasound was performed showing no obstruction either malignancy or stone at that time. Neurosurgery at [facility] evaluated MRI results and stated that could be due to infarcts. Neurologist was against lumbar puncture due to increased risk of herniation. patient was extubated on November 28, 2023 and was transferred step-down unit with 2 L of nasal cannula but lately on December 02 patient became shortness of breath tachypneic required reintubation. The patient had sepsis of unknown etiology and they thought it might be related to the brain lesions so patient was started on broad-spectrum IV antibiotics with MRSA coverage. Patient was readmitted back at [facility]. Patient seen and examined at bedside. There was no acute events overnight. We progressively decrease sedation, currently the patient is on no sedation at this time. Not requiring vasopressors. This morning, the patient initially was on mechanical ventilator but was placed on trach collar and has been sat 100%. Chest x-ray this morning was showing bilateral interstitial infiltrates but grossly unremarkable. Creatinine still elevated at 1.49 and BUN 23. Potassium was significantly low at 2.9 for which 60 mEq of IV potassium were administered. The patient is slightly responding, on my examination patient was not able to open her eyes by her own but patient does moves minimally. spoke with daughter cheikh which will want hospice. ROS unable to be obtained due to patient current status. Objective vital signs Vital Sign Date Time Temp Pulse Resp B/P (MAP) Pulse Ox O2 Delivery O2 Flow Rate FiO2 12/17/23 12:00 30 12/17/23 11:03 88 149/63 12/17/23 10:31 98.4 17 100 209.1 12/17/23 08:00 Mechanical Ventilator+ Total Intake and Output 12/16/23 12/16/23 12/17/23 15:00 23:00 07:00 Intake Total 470 ml 349 ml Output Total 1900 ml 550 ml Balance -1430 ml -201 ml medications Current Medications Medications Dose Ordered Sig/Leslie Route Start Time Stop Time Status Last Admin Dose Admin Albuterol 2.5 mg Q4HR PRN NEB 12/08/23 19:30 12/17/23 10:00 2.5 MG Ipratropium [place] 0.5 mg Q4HR NEB 12/08/23 22:00 12/17/23 10:00 0.5 MG Ondansetron HCl 4 mg Q4HP PRN IV 12/08/23 19:30 Pantoprazole Sodium 40 mg DAILY IV 12/09/23 10:00 12/16/23 10:01 40 MG Fentanyl Citrate 250 ml @ 2.5 mls/hr Q24H IV 12/08/23 20:30 12/14/23 22:37 22.5 MLS/HR Hydralazine HCl 10 mg Q4HP PRN IV 12/09/23 05:30 12/17/23 01:59 10 MG Midazolam HCl 50 ml @ 5 mls/hr Q10H IV 12/09/23 09:00 12/14/23 21:03 4 MLS/HR Sodium Chloride 10 ml QSHIFT@10,22 IV 12/09/23 22:00 12/17/23 09:59 10 ML Enoxaparin Sodium 70 mg Q12HR SC 12/09/23 22:00 12/17/23 09:59 70 MG Acetaminophen 650 mg Q6HP PRN TX 12/10/23 01:30 12/13/23 06:51 650 MG Enteral Nutritional Formula 1,000 ml 30ML/HR GT 12/10/23 16:45 12/15/23 08:00 1,000 ML Metoclopramide HCl 5 mg Q6HPRN PRN IV 12/13/23 21:45 Levothyroxine Sodium 112 mcg QAM@0600 PO 12/15/23 06:00 12/17/23 06:11 112 MCG Diagnostic Test (Pha) 1 strip Q6HR 12/14/23 18:00 12/17/23 12:13 1 STRIP Insulin Human Regular Q6HR SC 12/14/23 18:00 12/17/23 12:14 6 UNITS Dextrose 50 ml UD PRN IV 12/14/23 18:00 Dexmedetomidine HCl 400 mcg/ Dextrose 100 ml @ 3.945 mls/ hr Q24H IV 12/15/23 11:30 Furosemide 20 mg DAILY IV 12/17/23 10:00 12/17/23 09:58 20 MG Metoprolol Tartrate 25 mg BID PO 12/16/23 22:00 12/17/23 09:58 25 MG Ampicillin Sodium/ Sulbactam Sodium 3 gm/Sodium Chloride 100 ml @ 100 mls/hr Q6H IV 12/16/23 13:00 12/17/23 09:59 100 MLS/HR Lorazepam 1 mg Q4H PRN IV 12/17/23 00:15 Purified Water 250 ml Q6HR GT 12/17/23 12:00 12/17/23 12:13 250 ML Examination General: Patient not sedated but not fully responding, placed on trach collar sat 100% HEENT: Normocephalic, atraumatic, moist mucous membranes, light gag reflex but present. Respiratory/pulmonary: Bilateral lung sounds grossly clear, no crackles or wheezes at this time. Cardiovascular: Irregular heart sounds S1 and S2 with no associated murmurs. monitor reviewed and was showing PVCs. Abdomen: Abdomen nondistended, there is no pain to palpation in any of the abdominal quadrants, no palpable masses. PEG tube on place with no signs in infection at this time. Extremities: There is no bilateral pleural effusions at this time. Peripheral Pulses: 3+ Radial (R). 3+ Radial (L). 3+ Dorsalis pedis (R). 3+ Dorsalis pedis(L) Skin: No rashes or pruritus, there is no sacral edema present at this time. Neurological: bilateral pupils reactive to light, not fully responding upon my examination. laboratory and microbiology Laboratory Tests 12/17/23 03:35 Test 12/17/23 03:35 Range/Units Serum Glucose 224 H 74-106 mg/dL Microbiology Date/Time Source Procedure Growth Status 12/14/23 19:42 Voided Urine Urine Culture - Final Complete 12/09/23 09:28 Blood Blood Culture - Final NO GROWTH AFTER 5 DAYS OF INCUBATION. Complete 12/08/23 19:00 Nose MRSA Screen - Final Complete 12/08/23 19:00 Sputum Gram Stain - Final Complete 12/08/23 19:00 Sputum Respiratory Culture - Final Complete Problem List/Assessment/Plan Problem List/Assessment/Plan Assessment/Plan Neurology Acute metabolic encephalopathy likely in the setting of sepsis versus brain occupying lesions (metastasis/infection/stroke) -patient has a previous MRI at this facility showing no conclusive diagnosis, At [facility] did not got any conclusive diagnosis as well. -failed extubation at [facility] -CT scan of the head performed at this visit show hypodensities in bilateral cerebellum with no acute intracranial abnormalities. -MRI with contrast of the brain should be performed to clarify etiology of brain occupying lesions. Study was hold today due to YULIANA, we will wait for renal function recovery, meanwhile we will try to decrease sedation and assess neurologic response clinically. Brain lessions on MRI w/o contrast, unknown etiology -we will perform brain MRI with contrast once kidney function recovers. -lab workup performed at [facility] was negative for blastomycosis, tuberculosis, cryptococcosis Sedation -OFF sedation Not on vasopressors at this time. Cardiology Acute on chronic diastolic heart failure (HFpEF 55%) -Continue furosemide to 20 mg IV QD -Both echocardiograms TTE YOLANDA were performed showing no vegetations or cardiac valve abn. Ruled out endocarditis -YOLANDA performed on 12/10/2023 showed normal cardiac valves with no vegetations at that time. Primary hypertension -Continue metoprolol 25mg PO BID Respiratory S/P tracheostomy performed today in the morning (12/13/23) -Patient currently on trach collar sat 100% Acute hypoxic respiratory failure likely in the setting of aspiration pneumonia -Continue IV Unasyn -on tarach collar as described above -CT of the chest/abdomen and pelvis showed no acute findings in the abdominal pelvics but showed multifocal airspace disease and cardiomegaly -chest x-ray performed today showed stable pulmonary congestion right lower lobe infiltration can not be excluded -Will come out of sedation, evaluate mental response clinically and eventually try CPAP trial. -ABG was reviewed this morning showing a pH 7.41, Pco2 24.8, HCO3 15.5, Pao2 19.2 consistent with a mixed metabolic acidosis with respiratory alkalosis Sepsis in the setting of aspiration pneumonia -continue IV antibiotics as described above Infectious disease Sepsis likely due to aspiration pneumonia and UTI -continue IV antibiotics as stated above UTI UA suggestive of UTI but last urine culture showed no growth -Ordered new U/A came back suggesting UTI -Urine culture came back negative Possible brain abscess/infectious occupying lesions -currently on IV Unasyn Endocrinology Type 2 diabetes mellitus, DKA on previous admissions -Continue on sliding scale insulin -Not on Lantus at this time Diabetic polyneuropathy -Patient sedated, monitor Hypothyroidism -Last TSH was 17.87 -today, ordered free T4 and T3 which came back 0.48 and 0.79 respectively -Continue levothyroxine 112mcgQAM Gastroenterology Acute transaminitis, resolved -AST 25, ALT 24 -Continue monitoring Cholelithiasis w/o cholecystitis -CT abdomen showed cholelithiasis w/o findings suggestive of cholecystitis Hematology Superficial thrombophlebitis of right cephalic and basilic veins -no need for anticoagulation DVT of the left brachial vein -continue on enoxaparin 70mg q.12 Nephrology YULIANA likely due to VMN -today, creatinine is 1.49 and BUN 23 -Monitor kidney function Nutrition -EN at 30cc/hr Lines: Midline of right upper arm placed on 12/08/2023 PICC line on left upper arm placed on 12/09/2023 Consult social service for home hospice Goals of care discussed with blank salamanca via phone Critical time spent> 44min Plan discussed with Dr. Honeycutt Plan discussed with: Daughter, Other My Orders My Orders Orders - DANELLE MENDIETA RESIDENT Procedure Category Date Status Time Abg W/ Co-Ox RT 12/17/23 Logged 04:00 Chest Xray 1 View XY 12/17/23 Resulted 04:00 Dietary Evaluation Review Comments: 1) If GI is accessible consider Glucerna 1.2 @ 55 ml/hr goal rate as tolerated 2) If pt remains NPO >7 days consider TPN to meet at least 75% of estimated needs 3) Advance pt diet when medically feasible [facility]/Cardiac diet modified per [facility] [employer] recommendations 4) Continue current plan of care Expected Outcomes/Goals: 1) Pt to receive nutrition support within 7 days of NPO status 2) Pt diet to advance 3) F/U in 2-3 days Date of Service: Dec 17, 2023 Billing Provider: RUBENS HONEYCUTT MD Common Visit Codes: 25121-[id number] CARE 30-74 MIN DANELLE MENDIETA RESIDENT Dec 17, 2023 13:16 RUBENS HONEYCUTT MD Dec 17, 2023 17:53
--- NOTE | 2023-12-17 20:17 | DVHPN2 ---
Progress Note - Dictate Date Seen: Dec 17, 2023 Has the PT tested + for MRSA If YES, has PT been informed?: No Medical Necessity Reason Pt with a Central, PICC or Fol: Yes The following are medically ne: PICC Line, Carr Catheter Reason for carr catheter: Strict I&O Subjective Mr. Sanderson is a 68 years old female with a history of hypertension, diabetes, hypothyroidism, COPD, obesity, diabetic polyneuropathy, arthritis, liver cirrhosis, she was transferred back from the [facility] on 12/08/2023 after ERCP. I have seen examined the patient, I have talked to her nurse, her eyes are open and looking around sometimes, partial she is respond to verbal stimuli LLU Neurosurgery consultation: The lesions likely represents infarct, recommend Re attempting MRI spectrography for further evaluation Neuro consultation: Lumbar puncture was not recommended concerning possibility of herniation EEG, 11/28/2023: No seizure/nonconvulsive status epileptics (I did not see report) TTE, 11/29/23: EF: 70-75% (I did not see report) MRI brain (no report): signal abnormality in bilateral cerebellum and right occipital lobe, punctate foci in right parietal lobe and central semiovale- unable to differentiate subacute ischemia 2/2 MR effects versus infection versus metastasis. Recommend contrast enhanced MRI MRI, 12/05/23: No evidence of demyelinating disease (I did not see report) MRI orbital, face, neck ww 12/05/2023, comparison: MR brain 11/28/2023: No evidence of mucormycosis infection. Multiple irregularly enhancing cerebellar and right occipital lesions were better evaluated on recent brain MRI MRI C-spine, 12/05/2023: No evidence of demyelinating disease in the cervical spine. Moderate degenerative changes. Grade 1 anterolisthesis of C7 on T1 MRI lumbar spine wwo, 12/05/2023: No evidence of demyelinating disease in the lumbar spine. Degenerative changes and grade 1 anterolisthesis of L4 and L5. Mild central spinal stenosis at L4-5. [id number] multilevel bilateral foraminal stenosis as described above MRI spectroscopy 12/05/2023: Cerebellar lesion showing moderately elevated Cho, reduced ZINA, large lipid peaks, and additional tics suspicious for amino acids and alanine. The alanine and amino acids are suspicious for an infectious process Treatment according to discharge note: ASA 81mg Qd, Lipitor 20 mg daily Urinalysis, 12/08/2023: WBC: 93, urine leukocyte esterase: 3+ ABG, 12/09/2023: Metabolic acidosis WBC/HB/PLT/MCV, 12/09/2023: 8.5/7.4/350/92.4 PT/INR/PTT, 12/08/2023: 11.4/1.08 Na, 12/08/2023: 147, 12/09/2023: 146 TBI/AST/ALT/AP, 12/09/2023: 0.2/40/21/278 TG/HDL/LDL/HDL, 11/2023: 136/96/38/32 Vitamin B12, 11/2023: 2537 TSH, 11/2023: 17.87 YOLANDA, 12/10/2023: n the study done today no evidence of vegetation or masses were discernible. There is mild mitral valve regurgitation with mild anterior leaflet prolapse. No significant intracardiac lesion was discernible Echocardiogram, 11/18/2023: Normal left ventricular size and dimension. Normal left ventricular systolic function estimated ejection fraction 55%. There is a grade 1 diastolic dysfunction. Normal right ventricular size and dimension. Normal right ventricular systolic function. Mildly increased right ventricular systolic pressure 34 mm of mercury. Normal biatrial size and dimension. Normal aortic valve structure and function. Normal mitral valve structure and function. Normal tricuspid valve structure and function. The pulmonary valve is grossly normal. No pericardial effusion. Carotid Doppler, 11/21/2023: 1. No evidence of hemodynamically significant stenosis within the left carotid arterial system. 2. Antegrade flow within the left vertebral artery. 3. Cannot assess the right carotid arterial system due to central line artifact and overlying bandage. Extremity venous study, 12/09/2023: Thrombus in the LEFT cephalic and brachial vein. Thrombus in the RIGHT cephalic and basilic vein.If clinical concern/symptoms persist or worsen, short-interval follow-up study is suggested. Chest x-ray, 12/08/2023: 1. Endotracheal and gastric tubes in place as described. Satisfactory position. 2. Removal of right PICC and right IJ central venous catheter since prior. 3. Mild cardiomegaly and pulmonary vascular congestion. 4. Small opacity in the lateral right lung base which could reflect atelectasis or pneumonia MRI head, 11/21/2023: Signal abnormality in the bilateral cerebellum and right occipital lobe, as well as punctate foci in the right parietal lobe and centrum semiovale. Findings could represent regions of subacute ischemia due to embolic infarcts; however, underlying metastases or infection are not excluded. Recommend contrast-enhanced MRI vital signs Vital Sign Date Time Temp Pulse Resp B/P (MAP) Pulse Ox O2 Delivery O2 Flow Rate FiO2 12/17/23 18:45 98.8 93 14 131/43 (72) 99 209.8 12/17/23 14:39 Trach Collar 8.0 12/17/23 14:39 30 30 Total Intake and Output 12/16/23 12/16/23 12/17/23 15:00 23:00 07:00 Intake Total 470 ml 349 ml Output Total 1900 ml 550 ml Balance -1430 ml -201 ml medications Current Medications Medications Dose Ordered Sig/Leslie Route Start Time Stop Time Status Last Admin Dose Admin Albuterol 2.5 mg Q4HR PRN NEB 12/08/23 19:30 12/17/23 18:20 2.5 MG Ipratropium [place] 0.5 mg Q4HR NEB 12/08/23 22:00 12/17/23 18:20 0.5 MG Ondansetron HCl 4 mg Q4HP PRN IV 12/08/23 19:30 Pantoprazole Sodium 40 mg DAILY IV 12/09/23 10:00 12/16/23 10:01 40 MG Fentanyl Citrate 250 ml @ 2.5 mls/hr Q24H IV 12/08/23 20:30 12/14/23 22:37 22.5 MLS/HR Hydralazine HCl 10 mg Q4HP PRN IV 12/09/23 05:30 12/17/23 18:01 10 MG Midazolam HCl 50 ml @ 5 mls/hr Q10H IV 12/09/23 09:00 12/14/23 21:03 4 MLS/HR Sodium Chloride 10 ml QSHIFT@10,22 IV 12/09/23 22:00 12/17/23 09:59 10 ML Enoxaparin Sodium 70 mg Q12HR SC 12/09/23 22:00 12/17/23 09:59 70 MG Acetaminophen 650 mg Q6HP PRN OR 12/10/23 01:30 12/13/23 06:51 650 MG Enteral Nutritional Formula 1,000 ml 30ML/HR GT 12/10/23 16:45 12/15/23 08:00 1,000 ML Metoclopramide HCl 5 mg Q6HPRN PRN IV 12/13/23 21:45 Levothyroxine Sodium 112 mcg QAM@0600 PO 12/15/23 06:00 12/17/23 06:11 112 MCG Diagnostic Test (Pha) 1 strip Q6HR 12/14/23 18:00 12/17/23 17:45 1 STRIP Insulin Human Regular Q6HR SC 12/14/23 18:00 12/17/23 17:50 6 UNITS Dextrose 50 ml UD PRN IV 12/14/23 18:00 Dexmedetomidine HCl 400 mcg/ Dextrose 100 ml @ 3.945 mls/ hr Q24H IV 12/15/23 11:30 Furosemide 20 mg DAILY IV 12/17/23 10:00 12/17/23 09:58 20 MG Metoprolol Tartrate 25 mg BID PO 12/16/23 22:00 12/17/23 09:58 25 MG Ampicillin Sodium/ Sulbactam Sodium 3 gm/Sodium Chloride 100 ml @ 100 mls/hr Q6H IV 12/16/23 13:00 12/17/23 17:51 100 MLS/HR Lorazepam 1 mg Q4H PRN IV 12/17/23 00:15 Purified Water 250 ml Q6HR GT 12/17/23 12:00 12/17/23 17:51 250 ML objective The patient is well-nourished and well-developed with no distress. MENTAL STATUS: Subjective CRANIAL NERVES: Pupils are equal, round and reactive, small. There are c onjugated eye movements. No signs of facial weakness. There are no gagging or coughing reflexes during oral care SENSATION: Responses to pain stimuli. MOTOR: Normal tone in the upper and lower extremity. Normal muscle bulk. No fasciculations. Spontaneous movement in the feet noticed REFLEXES: Deep tendon reflexes are symmetrical. No pathological reflexes. CEREBELLAR/COORDINATION: Deferred GAIT/STATION: deferred. laboratory and microbiology Laboratory Tests 12/17/23 03:35 Test 12/17/23 03:35 Range/Units Serum Glucose 224 H 74-106 mg/dL Problem List Abnormal MRI brain scan, likely the patient has multiple stroke Coma Metabolic encephalopathy Hypoxic encephalopathy Multiple strokes Ketoacidosis Bilateral upper extremity deep venous thrombosis Rule out subacute endocarditis Status post tracheostomy Status post PEG tube Assessment/Plan Monitoring Supportive treatment ICU care Respiratory support Stabilize vitals IV antibiotics Lovenox 1 mg/kg subcutaneous b.i.d. Lipitor 20 mg daily Tube feeding Cardiology on case Infectious disease on case More recommendation per clinical course This medical document was created using an electronic medical record system with [employer] dictation system. Although this document has been carefully reviewed, there may still be some phonetic and typographical errors. These areas are purely typographical due to imperfections of the software programs, and do not reflect any compromise in the patient's medical care. Prognosis poor Dietary Evaluation Review Comments: 1) If GI is accessible consider Glucerna 1.2 @ 55 ml/hr goal rate as tolerated 2) If pt remains NPO >7 days consider TPN to meet at least 75% of estimated needs 3) Advance pt diet when medically feasible to a CCHO 45g/Cardiac diet modified per [employer] recommendations 4) Continue current plan of care Expected Outcomes/Goals: 1) Pt to receive nutrition support within 7 days of NPO status 2) Pt diet to advance 3) F/U in 2-3 days Plan discussed with: Other DREW FAGAN MD Dec 17, 2023 20:17
--- NOTE | 2023-12-17 23:10 | DVHPN2 ---
Consult Progress Note Date Seen: Dec 16, 2023 Subjective Patient reports: Feels better (tolerating trach collar) Objective vital signs Vital Sign Date Time Temp Pulse Resp B/P (MAP) Pulse Ox O2 Delivery O2 Flow Rate FiO2 12/17/23 22:20 90 25 100 12/17/23 21:42 142/66 12/17/23 21:00 99.1 210.4 12/17/23 20:00 Mechanical Ventilator+ 30 30 12/17/23 14:39 8.0 Total Intake and Output 12/16/23 12/16/23 12/17/23 15:00 23:00 07:00 Intake Total 470 ml 349 ml Output Total 1900 ml 550 ml Balance -1430 ml -201 ml medications Current Medications Medications Dose Ordered Sig/Leslie Route Start Time Stop Time Status Last Admin Dose Admin Albuterol 2.5 mg Q4HR PRN NEB 12/08/23 19:30 12/17/23 22:19 2.5 MG Ipratropium [place] 0.5 mg Q4HR NEB 12/08/23 22:00 12/17/23 22:19 0.5 MG Ondansetron HCl 4 mg Q4HP PRN IV 12/08/23 19:30 Pantoprazole Sodium 40 mg DAILY IV 12/09/23 10:00 12/16/23 10:01 40 MG Fentanyl Citrate 250 ml @ 2.5 mls/hr Q24H IV 12/08/23 20:30 12/14/23 22:37 22.5 MLS/HR Hydralazine HCl 10 mg Q4HP PRN IV 12/09/23 05:30 12/17/23 18:01 10 MG Midazolam HCl 50 ml @ 5 mls/hr Q10H IV 12/09/23 09:00 12/14/23 21:03 4 MLS/HR Sodium Chloride 10 ml QSHIFT@10,22 IV 12/09/23 22:00 12/17/23 21:43 10 ML Enoxaparin Sodium 70 mg Q12HR SC 12/09/23 22:00 12/17/23 21:43 70 MG Acetaminophen 650 mg Q6HP PRN SD 12/10/23 01:30 12/13/23 06:51 650 MG Enteral Nutritional Formula 1,000 ml 30ML/HR GT 12/10/23 16:45 12/15/23 08:00 1,000 ML Metoclopramide HCl 5 mg Q6HPRN PRN IV 12/13/23 21:45 Levothyroxine Sodium 112 mcg QAM@0600 PO 12/15/23 06:00 12/17/23 06:11 112 MCG Diagnostic Test (Pha) 1 strip Q6HR 12/14/23 18:00 12/17/23 17:45 1 STRIP Insulin Human Regular Q6HR SC 12/14/23 18:00 12/17/23 17:50 6 UNITS Dextrose 50 ml UD PRN IV 12/14/23 18:00 Dexmedetomidine HCl 400 mcg/ Dextrose 100 ml @ 3.945 mls/ hr Q24H IV 12/15/23 11:30 Furosemide 20 mg DAILY IV 12/17/23 10:00 12/17/23 09:58 20 MG Metoprolol Tartrate 25 mg BID PO 12/16/23 22:00 12/17/23 21:42 25 MG Ampicillin Sodium/ Sulbactam Sodium 3 gm/Sodium Chloride 100 ml @ 100 mls/hr Q6H IV 12/16/23 13:00 12/17/23 17:51 100 MLS/HR Lorazepam 1 mg Q4H PRN IV 12/17/23 00:15 Purified Water 250 ml Q6HR GT 12/17/23 12:00 12/17/23 17:51 250 ML PHYSICAL EXAM: - GENERAL: Alert and oriented x 3. No acute distress. Well-nourished. trach collar - EYES: EOMI. Anicteric. - HENT: Moist mucous membranes. No scleral icterus. No cervical lymphadenopathy. - LUNGS: Clear to auscultation bilaterally. No accessory muscle use. - CARDIOVASCULAR: Regular rate and rhythm. No murmur. No JVD. - ABDOMEN: Soft, non-tender and non-distended. No palpable masses. - EXTREMITIES: No edema. Non-tender. SKIN: No rashes or lesions. Warm. - NEUROLOGIC: No focal neurological deficits. CN II-XII grossly intact, but not individually tested - PSYCHIATRIC: Cooperative. Appropriate mood and affect. - laboratory and microbiology Laboratory Tests 12/17/23 03:35 Test 12/17/23 03:35 Range/Units Serum Glucose 224 H 74-106 mg/dL Problem List/Assessment/Plan Problem List/Assessment/Plan Assessment/Plan Problems(with codes): (1) Hospital-acquired pneumonia (2) COPD (chronic obstructive pulmonary disease) (3) DKA (diabetic ketoacidosis) (4) HTN (hypertension) (5) Closed right hip fracture Plan/Recommendation ASSESSMENT AND PLAN: ID Problem List: - Aspiration pneumonia - Acute respiratory failure - Diabetic Ketoacidosis (DKA) - Sepsis due to UTI vs pneumonia - Acute Kidney Injury (YULIANA) - Hypernatremia - Transaminitis - Fatty liver - Uncontrolled diabetes (A1C of 11.7) - Hypothyroidism - Hypertension - COPD without exacerbation - Chronic kidney disease (CKD) Assessment: This is a 68-year-old female with a past medical history of diabetes, hypertension, recurrent DKA, hypothyroidism, obesity, COPD, neuropathies, mechanical falls, liver cirrhosis, and multiple joint replacements. The patient presented to the ED with acute loss of consciousness on 11/15/2023, subsequently diagnosed with DKA and an upper GI bleed. While at [facility], a CT and MRI of the head showed concerning lesions for metastasis vs. infectious process and gallbladder issues. Due to renal failure, these images were performed without contrast. An ERCP at [facility] showed no gallstones or common bile duct obstruction. Currently, the patient is reintubated on minimal sedation and receiving broad-spectrum antibiotics for presumed meningitis and other infections. 12/09: Patient has had a repeat abdomen, pelvis, chest Ct with contrast which shows no acute findings in the abdomen and pelvis. multifocal airspace in the lungs was shown. 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 12/12: sp trach 12/13: off sedation on trach collar, no new fevers Plan: - continue ceftriaxone complete a 3 weeks course, eot 12/24/23 per OSH records - Continue vancomycin, complete a 3 weeks course, eot 12/24/23 per OSH records - Blood cultures monitoring. - Monitor respiratory status and adjust ventilator settings as necessary. - Monitor and manage blood glucose levels. - Supportive care as needed. Isolation Precautions: Standard Total critical care time: Approximately 62 minutes Due to a high probability of clinically significant, life threatening deterioration, the patient required my highest level of preparedness to intervene emergently and I personally spent this critical care time directly and personally managing the patient. This critical care time included obtaining a history; examining the patient; pulse oximetry; ordering and review of studies; arranging urgent treatment with development of a management plan; evaluation of patient's response to treatment; frequent reassessment; and, discussions with other providers. This critical care time was performed to assess and manage the high probability of imminent, life-threatening deterioration that could result in multi-organ failure. It was exclusive of separately billable procedures and treating other patients and teaching time. Assessment and plan was discussed with the patient as written above. Plan is subject to change pending incorporation of new incoming information/diagnostics. Updates may be added as addendum at the bottom (OR TOP) of this note. Thank you for interesting consult. ID will continue to follow. Please contact Infectious disease for any questions or concerns. Nithin Carrasco M.D. [facility] Ph: ? Plan discussed with: Patient Dietary Evaluation Review Comments: 1) If GI is accessible consider Glucerna 1.2 @ 55 ml/hr goal rate as tolerated 2) If pt remains NPO >7 days consider TPN to meet at least 75% of estimated needs 3) Advance pt diet when medically feasible to a CCHO 45g/Cardiac diet modified per CURING BIN OPERATOR recommendations 4) Continue current plan of care Expected Outcomes/Goals: 1) Pt to receive nutrition support within 7 days of NPO status 2) Pt diet to advance 3) F/U in 2-3 days NITHIN CARRASCO MD Dec 17, 2023 23:10
--- NOTE | 2023-12-17 23:10 | DVHPN2 ---
Consult Progress Note Date Seen: Dec 17, 2023 Subjective Patient reports: Feels better (sacral ulcer cdi) Objective vital signs Vital Sign Date Time Temp Pulse Resp B/P (MAP) Pulse Ox O2 Delivery O2 Flow Rate FiO2 12/17/23 22:20 90 25 100 12/17/23 21:42 142/66 12/17/23 21:00 99.1 210.4 12/17/23 20:00 Mechanical Ventilator+ 30 30 12/17/23 14:39 8.0 Total Intake and Output 12/16/23 12/16/23 12/17/23 15:00 23:00 07:00 Intake Total 470 ml 349 ml Output Total 1900 ml 550 ml Balance -1430 ml -201 ml medications Current Medications Medications Dose Ordered Sig/Leslie Route Start Time Stop Time Status Last Admin Dose Admin Albuterol 2.5 mg Q4HR PRN NEB 12/08/23 19:30 12/17/23 22:19 2.5 MG Ipratropium [place] 0.5 mg Q4HR NEB 12/08/23 22:00 12/17/23 22:19 0.5 MG Ondansetron HCl 4 mg Q4HP PRN IV 12/08/23 19:30 Pantoprazole Sodium 40 mg DAILY IV 12/09/23 10:00 12/16/23 10:01 40 MG Fentanyl Citrate 250 ml @ 2.5 mls/hr Q24H IV 12/08/23 20:30 12/14/23 22:37 22.5 MLS/HR Hydralazine HCl 10 mg Q4HP PRN IV 12/09/23 05:30 12/17/23 18:01 10 MG Midazolam HCl 50 ml @ 5 mls/hr Q10H IV 12/09/23 09:00 12/14/23 21:03 4 MLS/HR Sodium Chloride 10 ml QSHIFT@10,22 IV 12/09/23 22:00 12/17/23 21:43 10 ML Enoxaparin Sodium 70 mg Q12HR SC 12/09/23 22:00 12/17/23 21:43 70 MG Acetaminophen 650 mg Q6HP PRN ID 12/10/23 01:30 12/13/23 06:51 650 MG Enteral Nutritional Formula 1,000 ml 30ML/HR GT 12/10/23 16:45 12/15/23 08:00 1,000 ML Metoclopramide HCl 5 mg Q6HPRN PRN IV 12/13/23 21:45 Levothyroxine Sodium 112 mcg QAM@0600 PO 12/15/23 06:00 12/17/23 06:11 112 MCG Diagnostic Test (Pha) 1 strip Q6HR 12/14/23 18:00 12/17/23 17:45 1 STRIP Insulin Human Regular Q6HR SC 12/14/23 18:00 12/17/23 17:50 6 UNITS Dextrose 50 ml UD PRN IV 12/14/23 18:00 Dexmedetomidine HCl 400 mcg/ Dextrose 100 ml @ 3.945 mls/ hr Q24H IV 12/15/23 11:30 Furosemide 20 mg DAILY IV 12/17/23 10:00 12/17/23 09:58 20 MG Metoprolol Tartrate 25 mg BID PO 12/16/23 22:00 12/17/23 21:42 25 MG Ampicillin Sodium/ Sulbactam Sodium 3 gm/Sodium Chloride 100 ml @ 100 mls/hr Q6H IV 12/16/23 13:00 12/17/23 17:51 100 MLS/HR Lorazepam 1 mg Q4H PRN IV 12/17/23 00:15 Purified Water 250 ml Q6HR GT 12/17/23 12:00 12/17/23 17:51 250 ML PHYSICAL EXAM: - GENERAL: Alert and oriented x 3. No acute distress. Well-nourished. - EYES: EOMI. Anicteric. - HENT: Moist mucous membranes. No scleral icterus. No cervical lymphadenopathy. - LUNGS: Clear to auscultation bilaterally. No accessory muscle use. - CARDIOVASCULAR: Regular rate and rhythm. No murmur. No JVD. - ABDOMEN: Soft, non-tender and non-distended. No palpable masses. - EXTREMITIES: No edema. Non-tender.?SKIN: No rashes or lesions. Warm. - NEUROLOGIC: No focal neurological deficits. CN II-XII grossly intact, but not individually tested - PSYCHIATRIC: Cooperative. Appropriate mood and affect. - laboratory and microbiology Laboratory Tests 12/17/23 03:35 Test 12/17/23 03:35 Range/Units Serum Glucose 224 H 74-106 mg/dL Problem List/Assessment/Plan Problem List/Assessment/Plan Assessment/Plan Problems(with codes): (1) Hospital-acquired pneumonia (2) COPD (chronic obstructive pulmonary disease) (3) DKA (diabetic ketoacidosis) (4) HTN (hypertension) (5) Closed right hip fracture Plan/Recommendation ASSESSMENT AND PLAN: ID Problem List: - Aspiration pneumonia - Acute respiratory failure - Diabetic Ketoacidosis (DKA) - Sepsis due to UTI vs pneumonia - Acute Kidney Injury (YULIANA) - Hypernatremia - Transaminitis - Fatty liver - Uncontrolled diabetes (A1C of 11.7) - Hypothyroidism - Hypertension - COPD without exacerbation - Chronic kidney disease (CKD) Assessment: This is a 68-year-old female with a past medical history of diabetes, hypertension, recurrent DKA, hypothyroidism, obesity, COPD, neuropathies, mechanical falls, liver cirrhosis, and multiple joint replacements. The patient presented to the ED with acute loss of consciousness on 11/15/2023, subsequently diagnosed with DKA and an upper GI bleed. While at [facility], a CT and MRI of the head showed concerning lesions for metastasis vs. infectious process and gallbladder issues. Due to renal failure, these images were performed without contrast. An ERCP at [facility] showed no gallstones or common bile duct obstruction. Currently, the patient is reintubated on minimal sedation and receiving broad-spectrum antibiotics for presumed meningitis and other infections. 12/09: Patient has had a repeat abdomen, pelvis, chest Ct with contrast which shows no acute findings in the abdomen and pelvis. multifocal airspace in the lungs was shown. 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 12/12: sp trach 12/13: off sedation Plan: - stop unasyn, low concern for pneumonia or sacral ulcer infection at this time. - sp 3 week vancomycin and ceftriaxone course, will monitor patient off all antibiotics - Blood cultures monitoring. - Monitor respiratory status and adjust ventilator settings as necessary. - Monitor and manage blood glucose levels. - Supportive care as needed. Isolation Precautions: Standard Total critical care time: Approximately 62 minutes Due to a high probability of clinically significant, life threatening deterioration, the patient required my highest level of preparedness to intervene emergently and I personally spent this critical care time directly and personally managing the patient. This critical care time included obtaining a history; examining the patient; pulse oximetry; ordering and review of studies; arranging urgent treatment with development of a management plan; evaluation of patient's response to treatment; frequent reassessment; and, discussions with other providers. This critical care time was performed to assess and manage the high probability of imminent, life-threatening deterioration that could result in multi-organ failure. It was exclusive of separately billable procedures and treating other patients and teaching time. Assessment and plan was discussed with the patient as written above. Plan is subject to change pending incorporation of new incoming information/diagnostics. Updates may be added as addendum at the bottom (OR TOP) of this note. Thank you for interesting consult. ID will continue to follow. Please contact Infectious disease for any questions or concerns. Nithin Carrasco M.D. [facility] Ph: ? Plan discussed with: Patient Dietary Evaluation Review Comments: 1) If GI is accessible consider Glucerna 1.2 @ 55 ml/hr goal rate as tolerated 2) If pt remains NPO >7 days consider TPN to meet at least 75% of estimated needs 3) Advance pt diet when medically feasible to a CCHO 45g/Cardiac diet modified per CHILDREN'S TUTOR recommendations 4) Continue current plan of care Expected Outcomes/Goals: 1) Pt to receive nutrition support within 7 days of NPO status 2) Pt diet to advance 3) F/U in 2-3 days NITHIN CARRASCO MD Dec 17, 2023 23:10
[2023-12-18] VITALS (37 sets, daily range): BP systolic 123–178; BP diastolic 62–90; PULSE 81–110; RESP 13–33; TEMP 98.4–99.3; O2SAT 96–100
[2023-12-18 06:05] LABS: Basophils # (auto) 0.1 10 ^3/uL (0-0.2); Eosinophils # (auto) 0.5 10 ^3/uL (0-0.8); Eosinophils % (auto) 6.4 % (0.0-7.0); Hemoglobin 9.5 g/dL (12.2-16.2); Lymphocytes # (auto) 1.9 10 ^3/uL (0.4-5.4); Lymphocytes % (auto) 25.8 % (10.0-50.0); Mean Corpuscular Hemoglobin 29.3 pg (28.0-32.0); Mean Corpuscular Hgb Conc. 31.7 g/dL (32.0-36.0); Mean Corpuscular Volume 92.3 fL (80.0-100.0); Monocytes # (auto) 0.5 10 ^3/uL (0-1.3); Monocytes % (auto) 6.6 % (0.0-12.0); Neutrophils # (auto) 4.5 10 ^3/uL (1.6-8.6); Neutrophils % (auto) 60.2 % (37.0-80.0); Nucleated Red Blood Cells % 0.1 %; Platelet Count (auto) 434 10^3/uL (140-450); Red Blood Cells 3.25 10^6/uL (4.0-5.20); Red Cell Distribution Width 17.1 % (11.8-14.3); White Blood Cell 7.4 10^3/uL (4.4-10.8)
--- NOTE | 2023-12-18 06:18 | DVH ---
CHEST RADIOGRAPH Indication:reevaluate interstitial infiltrates Technique: Single frontal view of the chest was obtained Comparison: XY CHEST XRAY 1 VIEW on DOS: 12/17/23, XY CHEST XRAY 1 VIEW on DOS: 12/16/23, XY CHEST XRAY 1 VIEW on DOS: 12/15/23, XY CHEST XRAY 1 VIEW on DOS: 12/14/23, XY CHEST XRAY 1 VIEW on DOS: 12/13/23, XY CHEST XRAY 1 VIEW on DOS: 12/17/23 FINDINGS: Lines and Tubes: Tracheostomy and left PICC in satisfactory position. Lungs: Congestion Pleura: No effusion. No pneumothorax. Cardiomediastinal contours: Cardiomegaly Bones: Unremarkable IMPRESSION: Lines and tubes in satisfactory position. No significant interval change.
[2023-12-18 06:35] LABS: Alanine Aminotransferase 19 U/L (7-40); Albumin 3.5 g/dL (3.2-4.8); Alkaline Phosphatase 193 U/L (46-116); Anion Gap 18 (5-15); Aspartate Aminotransferase 24 U/L (13-40); BUN/Creatinine Ratio 11.2 (10.0-20.0); Bilirubin, Total < 0.2 mg/dL (0.2-1.0); Blood Urea Nitrogen 15 mg/dL (9-23); Calcium 10.5 mg/dL (8.7-10.4); Carbon Dioxide 17 mmol/L (20-31); Chloride 113 mmol/L (98-107); Glucose 255 mg/dL (74-106); Potassium 3.3 mmol/L (3.5-5.1); Sodium 148 mmol/L (136-145); Total Protein 6.6 g/dL (5.7-8.2)
--- NOTE | 2023-12-18 08:57 | MEDREC ---
[facility] ASP Intervention Section I [facility] ASP Intervention: Review courses of therapy (PATTIENT HAS BEEN ON VANCO X7 DAYS, ROCEPHIN X8 DAYS, FLUCONAZOLE X6 DAYS, AND UNASYN X3 DAYS. WBC IS NORMAL AND CULTURES ARE NEGATIVE. PLEASE CONSIDER TO DISCONTINUE UNASYN IF APPROPRIATE. WE CAN KEEP UNASYN IF WE CONCERN OF HER WOUNDS) TESSY WINSTON Dec 18, 2023 08:57
--- NOTE | 2023-12-18 10:44 | DVHPN2 ---
Consult Progress Note Date Seen: Dec 18, 2023 Subjective Patient reports: Feels better (no fever or chills, unresponsive) Objective vital signs Vital Sign Date Time Temp Pulse Resp B/P (MAP) Pulse Ox O2 Delivery O2 Flow Rate FiO2 12/18/23 09:48 103 164/87 12/18/23 07:00 98.8 30 98 209.8 12/18/23 06:28 Trach Collar 8 30 30 Total Intake and Output 12/17/23 12/17/23 12/18/23 15:00 23:00 07:00 Intake Total 200 ml 335 ml 364 ml Output Total 1900 ml 650 ml Balance 200 ml -1565 ml -286 ml medications Current Medications Medications Dose Ordered Sig/Leslie Route Start Time Stop Time Status Last Admin Dose Admin Albuterol 2.5 mg Q4HR PRN NEB 12/08/23 19:30 12/18/23 02:37 2.5 MG Ipratropium [place] 0.5 mg Q4HR NEB 12/08/23 22:00 12/18/23 02:37 0.5 MG Ondansetron HCl 4 mg Q4HP PRN IV 12/08/23 19:30 Pantoprazole Sodium 40 mg DAILY IV 12/09/23 10:00 12/18/23 09:46 40 MG Hydralazine HCl 10 mg Q4HP PRN IV 12/09/23 05:30 12/18/23 06:07 10 MG Midazolam HCl 50 ml @ 5 mls/hr Q10H IV 12/09/23 09:00 12/14/23 21:03 4 MLS/HR Sodium Chloride 10 ml QSHIFT@,22 IV 12/09/23 22:00 12/18/23 09:47 10 ML Enoxaparin Sodium 70 mg Q12HR SC 12/09/23 22:00 12/18/23 09:48 70 MG Acetaminophen 650 mg Q6HP PRN SD 12/10/23 01:30 12/13/23 06:51 650 MG Enteral Nutritional Formula 1,000 ml 30ML/HR GT 12/10/23 16:45 12/15/23 08:00 1,000 ML Metoclopramide HCl 5 mg Q6HPRN PRN IV 12/13/23 21:45 Levothyroxine Sodium 112 mcg QAM@0600 PO 12/15/23 06:00 12/18/23 06:08 112 MCG Diagnostic Test (Pha) 1 strip Q6HR 12/14/23 18:00 12/18/23 06:00 1 STRIP Insulin Human Regular Q6HR SC 12/14/23 18:00 12/18/23 06:38 6 UNITS Dextrose 50 ml UD PRN IV 12/14/23 18:00 Dexmedetomidine HCl 400 mcg/ Dextrose 100 ml @ 3.945 mls/ hr Q24H IV 12/15/23 11:30 Furosemide 20 mg DAILY IV 12/17/23 10:00 12/18/23 09:47 20 MG Metoprolol Tartrate 25 mg BID PO 12/16/23 22:00 12/18/23 09:48 25 MG Ampicillin Sodium/ Sulbactam Sodium 3 gm/Sodium Chloride 100 ml @ 100 mls/hr Q6H IV 12/16/23 13:00 12/18/23 01:57 100 MLS/HR Lorazepam 1 mg Q4H PRN IV 12/17/23 00:15 Purified Water 250 ml Q6HR GT 12/17/23 12:00 12/18/23 06:07 250 ML PHYSICAL EXAM: - GENERAL: Alert and oriented x 3. No acute distress. Well-nourished. - EYES: EOMI. Anicteric. - HENT: Moist mucous membranes. No scleral icterus. No cervical lymphadenopathy. - LUNGS: Clear to auscultation bilaterally. No accessory muscle use. - CARDIOVASCULAR: Regular rate and rhythm. No murmur. No JVD. - ABDOMEN: Soft, non-tender and non-distended. No palpable masses. - EXTREMITIES: No edema. Non-tender.SKIN: No rashes or lesions. Warm. - NEUROLOGIC: No focal neurological deficits. CN II-XII grossly intact, but not individually tested - PSYCHIATRIC: Cooperative. Appropriate mood and affect. - laboratory and microbiology Laboratory Tests 12/18/23 04:56 Test 12/18/23 04:56 Range/Units Serum Glucose 255 H 74-106 mg/dL Problem List/Assessment/Plan Problem List/Assessment/Plan Assessment/Plan Problems(with codes): (1) Hospital-acquired pneumonia (2) COPD (chronic obstructive pulmonary disease) (3) DKA (diabetic ketoacidosis) (4) HTN (hypertension) (5) Closed right hip fracture Plan/Recommendation ASSESSMENT AND PLAN: ID Problem List: - Aspiration pneumonia - Acute respiratory failure - Diabetic Ketoacidosis (DKA) - Sepsis due to UTI vs pneumonia - Acute Kidney Injury (YULIANA) - Hypernatremia - Transaminitis - Fatty liver - Uncontrolled diabetes (A1C of 11.7) - Hypothyroidism - Hypertension - COPD without exacerbation - Chronic kidney disease (CKD) Assessment: This is a 68-year-old female with a past medical history of diabetes, hypertension, recurrent DKA, hypothyroidism, obesity, COPD, neuropathies, mechanical falls, liver cirrhosis, and multiple joint replacements. The patient presented to the ED with acute loss of consciousness on 11/15/2023, subsequently diagnosed with DKA and an upper GI bleed. While at [facility], a CT and MRI of the head showed concerning lesions for metastasis vs. infectious process and gallbladder issues. Due to renal failure, these images were performed without contrast. An ERCP at [facility] showed no gallstones or common bile duct obstruction. Currently, the patient is reintubated on minimal sedation and receiving broad-spectrum antibiotics for presumed meningitis and other infections. 12/09: Patient has had a repeat abdomen, pelvis, chest Ct with contrast which shows no acute findings in the abdomen and pelvis. multifocal airspace in the lungs was shown. 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 12/12: sp trach 12/13: off sedation Plan: - stop unasyn, low concern for pneumonia or sacral ulcer infection at this time. - sp 3 week vancomycin and ceftriaxone course, will monitor patient off all antibiotics - Blood cultures monitoring. - Monitor respiratory status and adjust ventilator settings as necessary. - Monitor and manage blood glucose levels. - Supportive care as needed. Isolation Precautions: Standard Total critical care time: Approximately 62 minutes Due to a high probability of clinically significant, life threatening deterioration, the patient required my highest level of preparedness to intervene emergently and I personally spent this critical care time directly and personally managing the patient. This critical care time included obtaining a history; examining the patient; pulse oximetry; ordering and review of studies; arranging urgent treatment with development of a management plan; evaluation of patient's response to treatment; frequent reassessment; and, discussions with other providers. This critical care time was performed to assess and manage the high probability of imminent, life-threatening deterioration that could result in multi-organ failure. It was exclusive of separately billable procedures and treating other patients and teaching time. Assessment and plan was discussed with the patient as written above. Plan is subject to change pending incorporation of new incoming information/diagnostics. Updates may be added as addendum at the bottom (OR TOP) of this note. Thank you for interesting consult. ID will continue to follow. Please contact Infectious disease for any questions or concerns. Nithin Carrasco M.D. [facility] Ph: ? Plan discussed with: Patient Dietary Evaluation Review Comments: 1) If GI is accessible consider Glucerna 1.2 @ 55 ml/hr goal rate as tolerated 2) If pt remains NPO >7 days consider TPN to meet at least 75% of estimated needs 3) Advance pt diet when medically feasible to a CCHO 45g/Cardiac diet modified per CORPORATE STATISTICAL FINANCIAL ANALYST recommendations 4) Continue current plan of care Expected Outcomes/Goals: 1) Pt to receive nutrition support within 7 days of NPO status 2) Pt diet to advance 3) F/U in 2-3 days NITHIN CARRASCO MD Dec 18, 2023 10:43
[2023-12-18] MEDS: POTASSIUM CHL 20MEQ/100ML 100 ML IV ONE (11:14)
--- NOTE | 2023-12-18 14:17 | DVHPN2 ---
Subjective The patient is seen and examined at bedside. The patient very tired but able to open her eye. Reviewed: Care Plan, H&P, Labs, Medications, Previous Orders, Radiology Changes from previous H/P or p: No Changes Objective Vitals Vital Signs Date Time Temp Pulse Resp B/P (MAP) Pulse Ox O2 Delivery O2 Flow Rate FiO2 12/18/23 12:00 82 12/18/23 11:28 163/81 12/18/23 11:00 98.8 18 99 209.8 12/18/23 08:00 Trach Collar 8 30 30 Intake/Output Intake and Output 12/18/23 07:00 Intake Total 899 ml Output Total 2550 ml Balance -1651 ml Intake Oral 75 ml IV Total 300 ml Tube Feeding 524 ml Output Urine Total 2550 ml # Bowel Movements 3 General Appearance: Alert, Other (Intubated and sedated) Lungs: Clear to auscultation, Other (Bilateral rhonchi) Cardiovascular: Regular rate, Normal S1, Normal S2, No murmurs Abdomen: Normal bowel sounds, Soft, No tenderness Extremities: No edema Medications Current Medications Medications Dose Ordered Sig/Leslie Route Start Time Stop Time Status Last Admin Dose Admin Albuterol 2.5 mg Q4HR PRN NEB 12/08/23 19:30 12/18/23 02:37 2.5 MG Ipratropium [place] 0.5 mg Q4HR NEB 12/08/23 22:00 12/18/23 02:37 0.5 MG Ondansetron HCl 4 mg Q4HP PRN IV 12/08/23 19:30 Pantoprazole Sodium 40 mg DAILY IV 12/09/23 10:00 12/18/23 09:46 40 MG Hydralazine HCl 10 mg Q4HP PRN IV 12/09/23 05:30 12/18/23 11:28 10 MG Midazolam HCl 50 ml @ 5 mls/hr Q10H IV 12/09/23 09:00 12/14/23 21:03 4 MLS/HR Sodium Chloride 10 ml QSHIFT@10,22 IV 12/09/23 22:00 12/18/23 09:47 10 ML Enoxaparin Sodium 70 mg Q12HR SC 12/09/23 22:00 12/18/23 09:48 70 MG Acetaminophen 650 mg Q6HP PRN [place] 12/10/23 01:30 12/13/23 06:51 650 MG Enteral Nutritional Formula 1,000 ml 30ML/HR GT 12/10/23 16:45 12/15/23 08:00 1,000 ML Metoclopramide HCl 5 mg Q6HPRN PRN IV 12/13/23 21:45 Levothyroxine Sodium 112 mcg QAM@0600 PO 12/15/23 06:00 12/18/23 06:08 112 MCG Diagnostic Test (Pha) 1 strip Q6HR 12/14/23 18:00 12/18/23 11:43 1 STRIP Insulin Human Regular Q6HR SC 12/14/23 18:00 12/18/23 11:43 4 UNITS Dextrose 50 ml UD PRN IV 12/14/23 18:00 Dexmedetomidine HCl 400 mcg/ Dextrose 100 ml @ 3.945 mls/ hr Q24H IV 12/15/23 11:30 Furosemide 20 mg DAILY IV 12/17/23 10:00 12/18/23 09:47 20 MG Metoprolol Tartrate 25 mg BID PO 12/16/23 22:00 12/18/23 09:48 25 MG Lorazepam 1 mg Q4H PRN IV 12/17/23 00:15 Purified Water 250 ml Q6HR GT 12/17/23 12:00 12/18/23 11:43 250 ML Laboratory Results Laboratory Tests 12/18/23 04:56 Chemistry Test 12/18/23 04:56 Albumin 3.5 g/dL (3.2-4.8) Calcium Level 10.5 mg/dL (8.7-10.4) H Magnesium Level 2.0 mg/dL (1.6-2.6) Total Protein 6.6 g/dL (5.7-8.2) LFT Test 12/18/23 04:56 Alanine Aminotransferase (ALT) 19 U/L (7-40) Alkaline Phosphatase 193 U/L (46-116) H Aspartate Amino Transferase (AST) 24 U/L (13-40) Total Bilirubin < 0.2 mg/dL (0.2-1.0) L Urinalysis Test 12/08/23 19:00 12/11/23 22:02 12/14/23 19:42 Urine WBC Clumps Present /hpf (None Seen) Urine Creatinine 21.88 mg/dL (30.0-125.0) L Urine Protein/Creatinine Ratio 2.01 Urine Sodium 40 mmol/L (40-220) Urine Total Protein 43.9 mg/dL (0.0-11.9) H Urine Color Light-yellow (Yellow) Urine Clarity Clear (Clear) Urine pH 6.0 (5.0-9.0) Urine Specific [place] 1.009 (1.001-1.035) Urine Protein 1+ (Negative) H Urine Ketones Negative (Negative) Urine Blood 2+ /uL (Negative) H Urine Nitrite Negative (Negative) Urine Bilirubin Negative (Negative) Urine Urobilinogen Normal mg/dL (Negative) Urine Leukocyte Esterase 2+ /uL (Negative) Urine RBC 6 /hpf (0 - 4) Urine WBC 68 /hpf (0 - 5) Urine Squamous Epithelial Cells None seen /hpf (<5) Urine Bacteria Few /hpf (None Seen) H Urine Glucose Normal mg/dL (Normal) Microbiology Microbiology Date/Time Source Procedure Growth Status 12/14/23 19:42 Voided Urine Urine Culture - Final Complete 12/09/23 09:28 Blood Blood Culture - Final NO GROWTH AFTER 5 DAYS OF INCUBATION. Complete 12/08/23 19:00 Nose MRSA Screen - Final Complete 12/08/23 19:00 Sputum Gram Stain - Final Complete 12/08/23 19:00 Sputum Respiratory Culture - Final Complete Labs and/or images reviewed: Labs reviewed by me Assessment/Plan Assessment/Plan Neurology Acute metabolic encephalopathy likely in the setting of sepsis versus brain occupying lesions (metastasis/infection/stroke) -patient has a previous MRI at this facility showing no conclusive diagnosis, At [facility] did not got any conclusive diagnosis as well. -failed extubation at [facility] -CT scan of the head performed at this visit show hypodensities in bilateral cerebellum with no acute intracranial abnormalities. -MRI with contrast of the brain should be performed to clarify etiology of brain occupying lesions. Study was hold today due to YULIANA, we will wait for renal function recovery, meanwhile we will try to decrease sedation and assess neurologic response clinically. -Will order MRI of the brain with contrast Brain lessions on MRI w/o contrast, unknown etiology -we will perform brain MRI with contrast once kidney function recovers. -lab workup performed at [facility] was negative for blastomycosis, tuberculosis, cryptococcosis Sedation -OFF sedation Not on vasopressors at this time. Cardiology Acute on chronic diastolic heart failure (HFpEF 55%) -Stop furosemide to 20 mg IV QD -Both echocardiograms TTE YOLANDA were performed showing no vegetations or cardiac valve abn. Ruled out endocarditis -YOLANDA performed on 12/10/2023 showed normal cardiac valves with no vegetations at that time. Primary hypertension -Start losartan 50mg QD -Continue metoprolol 25mg PO BID Respiratory S/P tracheostomy performed today in the morning (12/13/23) -Patient currently on trach collar sat 97% on FIO2 30% Acute hypoxic respiratory failure likely in the setting of aspiration pneumonia -Continue IV Unasyn -on tarach collar as described above -CT of the chest/abdomen and pelvis showed no acute findings in the abdominal pelvics but showed multifocal airspace disease and cardiomegaly -chest x-ray performed today showed stable pulmonary congestion right lower lobe infiltration can not be excluded -Ordered swallow evaluation -Ordered physical therapy Sepsis in the setting of aspiration pneumonia -continue IV antibiotics as described above Infectious disease Sepsis likely due to aspiration pneumonia and UTI -continue IV antibiotics as stated above UTI UA suggestive of UTI but last urine culture showed no growth -Ordered new U/A came back suggesting UTI -Urine culture came back negative Possible brain abscess/infectious occupying lesions -currently on IV Unasyn Endocrinology Type 2 diabetes mellitus, DKA on previous admissions -Continue on sliding scale insulin -Not on Lantus at this time Diabetic polyneuropathy -Patient sedated, monitor Hypothyroidism -Last TSH was 17.87 -today, ordered free T4 and T3 which came back 0.48 and 0.79 respectively -Continue levothyroxine 112mcgQAM Gastroenterology Acute transaminitis, resolved -AST 20, ALT 16 -Continue monitoring Cholelithiasis w/o cholecystitis -CT abdomen showed cholelithiasis w/o findings suggestive of cholecystitis Hematology Superficial thrombophlebitis of right cephalic and basilic veins -no need for anticoagulation DVT of the left brachial vein -continue on enoxaparin 70mg q.12 Nephrology YULIANA likely due to VMN -today, creatinine is 0.95 and BUN 10 -Monitor kidney function Nutrition -EN at 30cc/hr Lines: Midline of right upper arm placed on 12/08/2023 PICC line on left upper arm placed on 12/09/2023 Plan discussed with: Other (RN) Date of Service: Dec 18, 2023 Billing Provider: BRUCE HARRIS MD Common Visit Codes: [id number] INP/OBS CARE(HIGH) BRUCE HARRIS MD Dec 18, 2023 14:17
--- NOTE | 2023-12-18 15:52 | DVHPN2 ---
Progress Note - Dictate Date Seen: Dec 18, 2023 Has the PT tested + for MRSA If YES, has PT been informed?: No Medical Necessity Reason Pt with a Central, PICC or Fol: Yes The following are medically ne: PICC Line, Carr Catheter Reason for carr catheter: Strict I&O Subjective remains off ventilator support vital signs Vital Sign Date Time Temp Pulse Resp B/P (MAP) Pulse Ox O2 Delivery O2 Flow Rate FiO2 12/18/23 12:00 82 12/18/23 11:28 163/81 12/18/23 11:00 98.8 18 99 209.8 12/18/23 08:00 Trach Collar 8 30 30 Total Intake and Output 12/17/23 12/17/23 12/18/23 15:00 23:00 07:00 Intake Total 200 ml 335 ml 364 ml Output Total 1900 ml 650 ml Balance 200 ml -1565 ml -286 ml medications Current Medications Medications Dose Ordered Sig/Leslie Route Start Time Stop Time Status Last Admin Dose Admin Albuterol 2.5 mg Q4HR PRN NEB 12/08/23 19:30 12/18/23 02:37 2.5 MG Ipratropium [place] 0.5 mg Q4HR NEB 12/08/23 22:00 12/18/23 02:37 0.5 MG Ondansetron HCl 4 mg Q4HP PRN IV 12/08/23 19:30 Pantoprazole Sodium 40 mg DAILY IV 12/09/23 10:00 12/18/23 09:46 40 MG Hydralazine HCl 10 mg Q4HP PRN IV 12/09/23 05:30 12/18/23 11:28 10 MG Midazolam HCl 50 ml @ 5 mls/hr Q10H IV 12/09/23 09:00 12/14/23 21:03 4 MLS/HR Sodium Chloride 10 ml QSHIFT@10,22 IV 12/09/23 22:00 12/18/23 09:47 10 ML Enoxaparin Sodium 70 mg Q12HR SC 12/09/23 22:00 12/18/23 09:48 70 MG Acetaminophen 650 mg Q6HP PRN [place] 12/10/23 01:30 12/13/23 06:51 650 MG Enteral Nutritional Formula 1,000 ml 30ML/HR GT 12/10/23 16:45 12/15/23 08:00 1,000 ML Metoclopramide HCl 5 mg Q6HPRN PRN IV 12/13/23 21:45 Levothyroxine Sodium 112 mcg QAM@0600 PO 12/15/23 06:00 12/18/23 06:08 112 MCG Diagnostic Test (Pha) 1 strip Q6HR 12/14/23 18:00 12/18/23 11:43 1 STRIP Insulin Human Regular Q6HR SC 12/14/23 18:00 12/18/23 11:43 4 UNITS Dextrose 50 ml UD PRN IV 12/14/23 18:00 Dexmedetomidine HCl 400 mcg/ Dextrose 100 ml @ 3.945 mls/ hr Q24H IV 12/15/23 11:30 Furosemide 20 mg DAILY IV 12/17/23 10:00 12/18/23 09:47 20 MG Metoprolol Tartrate 25 mg BID PO 12/16/23 22:00 12/18/23 09:48 25 MG Lorazepam 1 mg Q4H PRN IV 12/17/23 00:15 Purified Water 250 ml Q6HR GT 12/17/23 12:00 12/18/23 11:43 250 ML objective gen: nad lungs: cta cvs: no rub ext; + edema laboratory and microbiology Laboratory Tests 12/18/23 04:56 Test 12/18/23 04:56 Range/Units Serum Glucose 255 H 74-106 mg/dL Assessment/Plan YULIANA superimposed on CKD secondary to hemodynamic mediated + nephrotoxic ATN 2/2 supratherapeutic vancomycin Acute respiratory failure, intubated on ventilator GI Bleed DM II REC: - serum sodium unchanged, we will continue to monitor on current free water flushes. persistent mild hypernatremia - stable improving kidney function - Tolerating negative fluid balance Dietary Evaluation Review Comments: 1) If GI is accessible consider Glucerna 1.2 @ 55 ml/hr goal rate as tolerated 2) If pt remains NPO >7 days consider TPN to meet at least 75% of estimated needs 3) Advance pt diet when medically feasible to a CCHO 45g/Cardiac diet modified per EMERGENCY RESPONSE COORDINATOR recommendations 4) Continue current plan of care Expected Outcomes/Goals: 1) Pt to receive nutrition support within 7 days of NPO status 2) Pt diet to advance 3) F/U in 2-3 days Plan discussed with: MORENA Hernandez MD Dec 18, 2023 15:52
[2023-12-18] MEDS: LOSARTAN POTASSIUM 25 MG TAB PO ONE (17:40)
--- NOTE | 2023-12-18 19:38 | DVHPN2 ---
Progress Note - Dictate Date Seen: Dec 18, 2023 Has the PT tested + for MRSA If YES, has PT been informed?: No Medical Necessity Reason Pt with a Central, PICC or Fol: Yes The following are medically ne: PICC Line, Carr Catheter Reason for carr catheter: Strict I&O Subjective Mr. Sanderson is a 68 years old female with a history of hypertension, diabetes, hypothyroidism, COPD, obesity, diabetic polyneuropathy, arthritis, liver cirrhosis, she was transferred back from the [facility] on 12/08/2023 after ERCP. I have seen examined the patient, I have talked to her nurse, her eyes are open and she tracks and respond to my verbal stimuli, but does not follow, I do not see movement in the extremities LLU Neurosurgery consultation: The lesions likely represents infarct, recommend Re attempting MRI spectrography for further evaluation Neuro consultation: Lumbar puncture was not recommended concerning possibility of herniation EEG, 11/28/2023: No seizure/nonconvulsive status epileptics (I did not see report) TTE, 11/29/23: EF: 70-75% (I did not see report) MRI brain (no report): signal abnormality in bilateral cerebellum and right occipital lobe, punctate foci in right parietal lobe and central semiovale- unable to differentiate subacute ischemia 2/2 MR effects versus infection versus metastasis. Recommend contrast enhanced MRI MRI, 12/05/23: No evidence of demyelinating disease (I did not see report) MRI orbital, face, neck ww 12/05/2023, comparison: MR brain 11/28/2023: No evidence of mucormycosis infection. Multiple irregularly enhancing cerebellar and right occipital lesions were better evaluated on recent brain MRI MRI C-spine, 12/05/2023: No evidence of demyelinating disease in the cervical spine. Moderate degenerative changes. Grade 1 anterolisthesis of C7 on T1 MRI lumbar spine wwo, 12/05/2023: No evidence of demyelinating disease in the lumbar spine. Degenerative changes and grade 1 anterolisthesis of L4 and L5. Mild central spinal stenosis at L4-5. Skas-th-rcoquqhr multilevel bilateral foraminal stenosis as described above MRI spectroscopy 12/05/2023: Cerebellar lesion showing moderately elevated Cho, reduced ZINA, large lipid peaks, and additional tics suspicious for amino acids and alanine. The alanine and amino acids are suspicious for an infectious process Treatment according to discharge note: ASA 81mg Qd, Lipitor 20 mg daily Urinalysis, 12/08/2023: WBC: 93, urine leukocyte esterase: 3+ ABG, 12/09/2023: Metabolic acidosis WBC/HB/PLT/MCV, 12/09/2023: 8.5/7.4/350/92.4 PT/INR/PTT, 12/08/2023: 11.4/1.08 Na, 12/08/2023: 147, 12/09/2023: 146 TBI/AST/ALT/AP, 12/09/2023: 0.2/40/21/278 TG/HDL/LDL/HDL, 11/2023: 136/96/38/32 Vitamin B12, 11/2023: 2537 TSH, 11/2023: 17.87 YOLANDA, 12/10/2023: n the study done today no evidence of vegetation or masses were discernible. There is mild mitral valve regurgitation with mild anterior leaflet prolapse. No significant intracardiac lesion was discernible Echocardiogram, 11/18/2023: Normal left ventricular size and dimension. Normal left ventricular systolic function estimated ejection fraction 55%. There is a grade 1 diastolic dysfunction. Normal right ventricular size and dimension. Normal right ventricular systolic function. Mildly increased right ventricular systolic pressure 34 mm of mercury. Normal biatrial size and dimension. Normal aortic valve structure and function. Normal mitral valve structure and function. Normal tricuspid valve structure and function. The pulmonary valve is grossly normal. No pericardial effusion. Carotid Doppler, 11/21/2023: 1. No evidence of hemodynamically significant stenosis within the left carotid arterial system. 2. Antegrade flow within the left vertebral artery. 3. Cannot assess the right carotid arterial system due to central line artifact and overlying bandage. Extremity venous study, 12/09/2023: Thrombus in the LEFT cephalic and brachial vein. Thrombus in the RIGHT cephalic and basilic vein.If clinical concern/symptoms persist or worsen, short-interval follow-up study is suggested. Chest x-ray, 12/08/2023: 1. Endotracheal and gastric tubes in place as described. Satisfactory position. 2. Removal of right PICC and right IJ central venous catheter since prior. 3. Mild cardiomegaly and pulmonary vascular congestion. 4. Small opacity in the lateral right lung base which could reflect atelectasis or pneumonia MRI head, 11/21/2023: Signal abnormality in the bilateral cerebellum and right occipital lobe, as well as punctate foci in the right parietal lobe and centrum semiovale. Findings could represent regions of subacute ischemia due to embolic infarcts; however, underlying metastases or infection are not excluded. Recommend contrast-enhanced MRI vital signs Vital Sign Date Time Temp Pulse Resp B/P (MAP) Pulse Ox O2 Delivery O2 Flow Rate FiO2 12/18/23 18:39 105 24 100 12/18/23 18:30 Cool Aerosol 8 30 30 12/18/23 17:40 162/81 12/18/23 17:00 98.4 209.1 Total Intake and Output 12/17/23 12/17/23 12/18/23 15:00 23:00 07:00 Intake Total 200 ml 335 ml 364 ml Output Total 1900 ml 650 ml Balance 200 ml -1565 ml -286 ml medications Current Medications Medications Dose Ordered Sig/Leslie Route Start Time Stop Time Status Last Admin Dose Admin Albuterol 2.5 mg Q4HR PRN NEB 12/08/23 19:30 12/18/23 18:30 2.5 MG Ipratropium [place] 0.5 mg Q4HR NEB 12/08/23 22:00 12/18/23 18:30 0.5 MG Ondansetron HCl 4 mg Q4HP PRN IV 12/08/23 19:30 Pantoprazole Sodium 40 mg DAILY IV 12/09/23 10:00 12/18/23 09:46 40 MG Hydralazine HCl 10 mg Q4HP PRN IV 12/09/23 05:30 12/18/23 11:28 10 MG Midazolam HCl 50 ml @ 5 mls/hr Q10H IV 12/09/23 09:00 12/14/23 21:03 4 MLS/HR Sodium Chloride 10 ml QSHIFT@10,22 IV 12/09/23 22:00 12/18/23 09:47 10 ML Enoxaparin Sodium 70 mg Q12HR SC 12/09/23 22:00 12/18/23 09:48 70 MG Acetaminophen 650 mg Q6HP PRN [place] 12/10/23 01:30 12/13/23 06:51 650 MG Enteral Nutritional Formula 1,000 ml 30ML/HR GT 12/10/23 16:45 12/15/23 08:00 1,000 ML Metoclopramide HCl 5 mg Q6HPRN PRN IV 12/13/23 21:45 Levothyroxine Sodium 112 mcg QAM@0600 PO 12/15/23 06:00 12/18/23 06:08 112 MCG Diagnostic Test (Pha) 1 strip Q6HR 12/14/23 18:00 12/18/23 17:51 1 STRIP Insulin Human Regular Q6HR SC 12/14/23 18:00 12/18/23 17:54 6 UNITS Dextrose 50 ml UD PRN IV 12/14/23 18:00 Dexmedetomidine HCl 400 mcg/ Dextrose 100 ml @ 3.945 mls/ hr Q24H IV 12/15/23 11:30 Furosemide 20 mg DAILY IV 12/17/23 10:00 12/18/23 09:47 20 MG Metoprolol Tartrate 25 mg BID PO 12/16/23 22:00 12/18/23 09:48 25 MG Lorazepam 1 mg Q4H PRN IV 12/17/23 00:15 Purified Water 250 ml Q6HR GT 12/17/23 12:00 12/18/23 19:29 250 ML Losartan Potassium 25 mg DAILY PO 12/19/23 10:00 Enteral Nutritional Formula 1,000 ml 30ML/HR GT 12/18/23 19:30 UNV objective The patient is well-nourished and well-developed with no distress. MENTAL STATUS: Subjective CRANIAL NERVES: Pupils are equal, round and reactive, small. There are c onjugated eye movements. No signs of facial weakness. There are no gagging or coughing reflexes during oral care SENSATION: Responses to pain stimuli. MOTOR: Normal tone in the upper and lower extremity. Normal muscle bulk. No fasciculations. Spontaneous movement in the feet noticed REFLEXES: Deep tendon reflexes are symmetrical. No pathological reflexes. CEREBELLAR/COORDINATION: Deferred GAIT/STATION: deferred. laboratory and microbiology Laboratory Tests 12/18/23 04:56 Test 12/18/23 04:56 Range/Units Serum Glucose 255 H 74-106 mg/dL Problem List Abnormal MRI brain scan, likely the patient has multiple stroke Coma Metabolic encephalopathy Hypoxic encephalopathy Multiple strokes Ketoacidosis ICU myopathy Bilateral upper extremity deep venous thrombosis Rule out subacute endocarditis Status post tracheostomy Status post PEG tube Assessment/Plan Monitoring Supportive treatment ICU care Respiratory support Stabilize vitals IV antibiotics Lovenox 1 mg/kg subcutaneous b.i.d. Lipitor 20 mg daily Tube feeding Cardiology on case Infectious disease on case More recommendation per clinical course This medical document was created using an electronic medical record system with [employer] dictation system. Although this document has been carefully reviewed, there may still be some phonetic and typographical errors. These areas are purely typographical due to imperfections of the software programs, and do not reflect any compromise in the patient's medical care. Prognosis poor Dietary Evaluation Review Comments: 1) If GI is accessible consider Glucerna 1.2 @ 55 ml/hr goal rate as tolerated 2) If pt remains NPO >7 days consider TPN to meet at least 75% of estimated needs 3) Advance pt diet when medically feasible to a CCHO 45g/Cardiac diet modified per WHITEPRINTING MACHINE OPERATOR recommendations 4) Continue current plan of care Expected Outcomes/Goals: 1) Pt to receive nutrition support within 7 days of NPO status 2) Pt diet to advance 3) F/U in 2-3 days Plan discussed with: Other DREW FAGAN MD Dec 18, 2023 19:38
[2023-12-19] VITALS (43 sets, daily range): BP systolic 115–172; BP diastolic 43–93; PULSE 83–104; RESP 12–36; TEMP 97.5–99.9; O2SAT 94–100
--- NOTE | 2023-12-19 05:56 | DVH ---
CHEST RADIOGRAPH Indication:CONGESTION Technique: Single frontal view of the chest was obtained COMPARISON: XY CHEST XRAY 1 VIEW on DOS: 12/18/23, XY CHEST XRAY 1 VIEW on DOS: 12/17/23, XY CHEST XRAY 1 VIEW on DOS: 12/16/23 FINDINGS: Lines and Tubes: Tracheostomy and left PICC in satisfactory position. Lungs: Mild congestion Pleura: No effusion. No pneumothorax. Cardiomediastinal contours: Unremarkable Bones: Unremarkable IMPRESSION: No significant interval change
[2023-12-19 07:41] LABS: Basophils # (auto) 0.1 10 ^3/uL (0-0.2); Basophils % (auto) 0.8 % (0.0-2.0); Eosinophils # (auto) 0.5 10 ^3/uL (0-0.8); Eosinophils % (auto) 5.7 % (0.0-7.0); Hematocrit 30.3 % (36.0-46.0); Hemoglobin 9.6 g/dL (12.2-16.2); Lymphocytes # (auto) 3.2 10 ^3/uL (0.4-5.4); Mean Corpuscular Hemoglobin 28.8 pg (28.0-32.0); Mean Corpuscular Hgb Conc. 31.6 g/dL (32.0-36.0); Mean Corpuscular Volume 91.2 fL (80.0-100.0); Monocytes # (auto) 0.6 10 ^3/uL (0-1.3); Neutrophils # (auto) 4.9 10 ^3/uL (1.6-8.6); Neutrophils % (auto) 52.5 % (37.0-80.0); Platelet Count (auto) 422 10^3/uL (140-450); Red Blood Cells 3.32 10^6/uL (4.0-5.20); Red Cell Distribution Width 17.1 % (11.8-14.3); White Blood Cell 9.3 10^3/uL (4.4-10.8)
[2023-12-19 07:49] LABS: Chloride 112 mmol/L (98-107); Potassium 3.1 mmol/L (3.5-5.1); Sodium 148 mmol/L (136-145)
[2023-12-19 07:50] LABS: Anion Gap 19 (5-15); Carbon Dioxide 17 mmol/L (20-31)
[2023-12-19 07:55] LABS: BUN/Creatinine Ratio 9.8 (10.0-20.0); Blood Urea Nitrogen 11 mg/dL (9-23); Glucose 273 mg/dL (74-106)
[2023-12-19 08:01] LABS: Base Excess -4.2 mmol/L (-2.0-3.0)
[2023-12-19] MEDS: POTASSIUM EFFERVESENT TAB 25 MEQ GT SCH (11:07)
[2023-12-19] MEDS: LOSARTAN POTASSIUM 25 MG TAB PO SCH (12:01)
--- NOTE | 2023-12-19 12:21 | DVHPN2 ---
Subjective The patient is seen and examined at bedside. Remained the same. No change. Trach intact. No events overnight. Reviewed: Care Plan, H&P, Labs, Medications, Previous Orders, Radiology Changes from previous H/P or p: No Changes Objective Vitals Vital Signs Date Time Temp Pulse Resp B/P (MAP) Pulse Ox O2 Delivery O2 Flow Rate FiO2 12/19/23 12:01 140/56 12/19/23 11:11 101 12/19/23 10:12 29 98 12/19/23 09:15 98.6 209.5 12/19/23 08:00 Trach Collar 8 30 30 Intake/Output Intake and Output 12/19/23 07:00 Intake Total 900 ml Output Total 2300 ml Balance -1400 ml Intake Oral 500 ml IV Total 100 ml Tube Feeding 300 ml Output Urine Total 2300 ml # Bowel Movements 2 General Appearance: Alert, Other (Intubated and sedated) Lungs: Clear to auscultation, Other (Bilateral rhonchi) Cardiovascular: Regular rate, Normal S1, Normal S2, No murmurs Abdomen: Normal bowel sounds, Soft, No tenderness Extremities: No edema Medications Current Medications Medications Dose Ordered Sig/Leslie Route Start Time Stop Time Status Last Admin Dose Admin Albuterol 2.5 mg Q4HR PRN NEB 12/08/23 19:30 12/19/23 10:04 2.5 MG Ipratropium [place] 0.5 mg Q4HR NEB 12/08/23 22:00 12/19/23 10:04 0.5 MG Ondansetron HCl 4 mg Q4HP PRN IV 12/08/23 19:30 Pantoprazole Sodium 40 mg DAILY IV 12/09/23 10:00 12/19/23 11:07 40 MG Hydralazine HCl 10 mg Q4HP PRN IV 12/09/23 05:30 12/19/23 06:23 10 MG Midazolam HCl 50 ml @ 5 mls/hr Q10H IV 12/09/23 09:00 12/14/23 21:03 4 MLS/HR Sodium Chloride 10 ml QSHIFT@10,22 IV 12/09/23 22:00 12/19/23 11:11 10 ML Enoxaparin Sodium 70 mg Q12HR SC 12/09/23 22:00 12/19/23 11:08 70 MG Acetaminophen 650 mg Q6HP PRN PA 12/10/23 01:30 12/13/23 06:51 650 MG Enteral Nutritional Formula 1,000 ml 30ML/HR GT 12/10/23 16:45 12/15/23 08:00 1,000 ML Metoclopramide HCl 5 mg Q6HPRN PRN IV 12/13/23 21:45 Levothyroxine Sodium 112 mcg QAM@0600 PO 12/15/23 06:00 12/19/23 06:23 112 MCG Diagnostic Test (Pha) 1 strip Q6HR 12/14/23 18:00 12/19/23 11:57 1 STRIP Insulin Human Regular Q6HR SC 12/14/23 18:00 12/19/23 11:58 6 UNITS Dextrose 50 ml UD PRN IV 12/14/23 18:00 Dexmedetomidine HCl 400 mcg/ Dextrose 100 ml @ 3.945 mls/ hr Q24H IV 12/15/23 11:30 Furosemide 20 mg DAILY IV 12/17/23 10:00 12/19/23 11:09 20 MG Metoprolol Tartrate 25 mg BID PO 12/16/23 22:00 12/19/23 11:11 25 MG Lorazepam 1 mg Q4H PRN IV 12/17/23 00:15 Purified Water 250 ml Q6HR GT 12/17/23 12:00 12/19/23 12:05 250 ML Losartan Potassium 25 mg DAILY PO 12/19/23 10:00 12/19/23 12:01 25 MG Enteral Nutritional Formula 1,000 ml 30ML/HR GT 12/18/23 19:30 Potassium Bicarbonate 50 meq DAILY GT 12/19/23 10:00 12/19/23 11:07 50 MEQ Laboratory Results Laboratory Tests 12/19/23 07:24 Chemistry Test 12/19/23 07:24 Calcium Level 10.0 mg/dL (8.7-10.4) Magnesium Level 1.9 mg/dL (1.6-2.6) Urinalysis Test 12/08/23 19:00 12/11/23 22:02 12/14/23 19:42 Urine WBC Clumps Present /hpf (None Seen) Urine Creatinine 21.88 mg/dL (30.0-125.0) L Urine Protein/Creatinine Ratio 2.01 Urine Sodium 40 mmol/L (40-220) Urine Total Protein 43.9 mg/dL (0.0-11.9) H Urine Color Light-yellow (Yellow) Urine Clarity Clear (Clear) Urine pH 6.0 (5.0-9.0) Urine Specific [place] 1.009 (1.001-1.035) Urine Protein 1+ (Negative) H Urine Ketones Negative (Negative) Urine Blood 2+ /uL (Negative) H Urine Nitrite Negative (Negative) Urine Bilirubin Negative (Negative) Urine Urobilinogen Normal mg/dL (Negative) Urine Leukocyte Esterase 2+ /uL (Negative) Urine RBC 6 /hpf (0 - 4) Urine WBC 68 /hpf (0 - 5) Urine Squamous Epithelial Cells None seen /hpf (<5) Urine Bacteria Few /hpf (None Seen) H Urine Glucose Normal mg/dL (Normal) Blood Gas Results Test 12/19/23 07:29 Arterial Blood pH 7.496 (7.350-7.450) FiO2 % 35.0 Microbiology Microbiology Date/Time Source Procedure Growth Status 12/14/23 19:42 Voided Urine Urine Culture - Final Complete 12/09/23 09:28 Blood Blood Culture - Final NO GROWTH AFTER 5 DAYS OF INCUBATION. Complete 12/08/23 19:00 Nose MRSA Screen - Final Complete 12/08/23 19:00 Sputum Gram Stain - Final Complete 12/08/23 19:00 Sputum Respiratory Culture - Final Complete Labs and/or images reviewed: Labs reviewed by me Assessment/Plan Assessment/Plan Neurology Acute metabolic encephalopathy likely in the setting of sepsis versus brain occupying lesions (metastasis/infection/stroke) -patient has a previous MRI at this facility showing no conclusive diagnosis, At [facility] did not got any conclusive diagnosis as well. -failed extubation at [facility] -CT scan of the head performed at this visit show hypodensities in bilateral cerebellum with no acute intracranial abnormalities. -MRI with contrast of the brain should be performed to clarify etiology of brain occupying lesions. Study was hold today due to YULIANA, we will wait for renal function recovery, meanwhile we will try to decrease sedation and assess neurologic response clinically. -Will order MRI of the brain with contrast Brain lessions on MRI w/o contrast, unknown etiology -we will perform brain MRI with contrast once kidney function recovers. -lab workup performed at [facility] was negative for blastomycosis, tuberculosis, cryptococcosis Sedation -OFF sedation Not on vasopressors at this time. Cardiology Acute on chronic diastolic heart failure (HFpEF 55%) -Stop furosemide to 20 mg IV QD -Both echocardiograms TTE YOLANDA were performed showing no vegetations or cardiac valve abn. Ruled out endocarditis -YOLANDA performed on 12/10/2023 showed normal cardiac valves with no vegetations at that time. Primary hypertension -Start losartan 50mg QD -Continue metoprolol 25mg PO BID Respiratory S/P tracheostomy performed today in the morning (12/13/23) -Patient currently on trach collar sat 97% on FIO2 30% Acute hypoxic respiratory failure likely in the setting of aspiration pneumonia -Continue IV Unasyn -on tarach collar as described above -CT of the chest/abdomen and pelvis showed no acute findings in the abdominal pelvics but showed multifocal airspace disease and cardiomegaly -chest x-ray performed today showed stable pulmonary congestion right lower lobe infiltration can not be excluded -Ordered swallow evaluation -Ordered physical therapy Sepsis in the setting of aspiration pneumonia -continue IV antibiotics as described above Infectious disease Sepsis likely due to aspiration pneumonia and UTI -continue IV antibiotics as stated above UTI UA suggestive of UTI but last urine culture showed no growth -Ordered new U/A came back suggesting UTI -Urine culture came back negative Possible brain abscess/infectious occupying lesions -currently on IV Unasyn Endocrinology Type 2 diabetes mellitus, DKA on previous admissions -Continue on sliding scale insulin -Not on Lantus at this time Diabetic polyneuropathy -Patient sedated, monitor Hypothyroidism -Last TSH was 17.87 -today, ordered free T4 and T3 which came back 0.48 and 0.79 respectively -Continue levothyroxine 112mcgQAM Gastroenterology Acute transaminitis, resolved -AST 20, ALT 16 -Continue monitoring Cholelithiasis w/o cholecystitis -CT abdomen showed cholelithiasis w/o findings suggestive of cholecystitis Hematology Superficial thrombophlebitis of right cephalic and basilic veins -no need for anticoagulation DVT of the left brachial vein -continue on enoxaparin 70mg q.12 Nephrology YULIANA likely due to VMN -today, creatinine is 0.95 and BUN 10 -Monitor kidney function Nutrition -EN at 30cc/hr Lines: Midline of right upper arm placed on 12/08/2023 PICC line on left upper arm placed on 12/09/2023 Plan discussed with: Patient My Orders Orders - BRUCE HARRIS MD Procedure Category Date Status Time Losartan Tablet PHA 12/19/23 In Process (Cozaar Tablet) 10:00 Nutritional PHA 12/18/23 In Process Supplements (Vital Af 19:30 Chest Portable XY 12/19/23 Resulted 04:00 Date of Service: Dec 19, 2023 Billing Provider: BRUCE HARRIS MD Common Visit Codes: [id number] INP/OBS CARE(HIGH) BRUCE HARRIS MD Dec 19, 2023 12:21
--- NOTE | 2023-12-19 17:29 | DVHPN2 ---
Progress Note - Dictate Date Seen: Dec 19, 2023 Has the PT tested + for MRSA If YES, has PT been informed?: No Medical Necessity Reason Pt with a Central, PICC or Fol: Yes The following are medically ne: PICC Line, Carr Catheter Reason for carr catheter: Strict I&O Subjective started on tube feedings vital signs Vital Sign Date Time Temp Pulse Resp B/P (MAP) Pulse Ox O2 Delivery O2 Flow Rate FiO2 12/19/23 17:10 175/93 12/19/23 16:00 92 12/19/23 15:00 99.9 21 95 211.8 12/19/23 08:00 Trach Collar 8 30 30 Total Intake and Output 12/18/23 12/18/23 12/19/23 15:00 23:00 07:00 Intake Total 100 ml 700 ml 100 ml Output Total 1800 ml 500 ml Balance 100 ml -1100 ml -400 ml medications Current Medications Medications Dose Ordered Sig/Leslie Route Start Time Stop Time Status Last Admin Dose Admin Albuterol 2.5 mg Q4HR PRN NEB 12/08/23 19:30 12/19/23 14:31 2.5 MG Ipratropium [place] 0.5 mg Q4HR NEB 12/08/23 22:00 12/19/23 14:31 0.5 MG Ondansetron HCl 4 mg Q4HP PRN IV 12/08/23 19:30 Pantoprazole Sodium 40 mg DAILY IV 12/09/23 10:00 12/19/23 11:07 40 MG Hydralazine HCl 10 mg Q4HP PRN IV 12/09/23 05:30 12/19/23 17:10 10 MG Midazolam HCl 50 ml @ 5 mls/hr Q10H IV 12/09/23 09:00 12/14/23 21:03 4 MLS/HR Sodium Chloride 10 ml QSHIFT@10,22 IV 12/09/23 22:00 12/19/23 11:11 10 ML Enoxaparin Sodium 70 mg Q12HR SC 12/09/23 22:00 12/19/23 11:08 70 MG Acetaminophen 650 mg Q6HP PRN [place] 12/10/23 01:30 12/13/23 06:51 650 MG Enteral Nutritional Formula 1,000 ml 30ML/HR GT 12/10/23 16:45 12/15/23 08:00 1,000 ML Metoclopramide HCl 5 mg Q6HPRN PRN IV 12/13/23 21:45 Levothyroxine Sodium 112 mcg QAM@0600 PO 12/15/23 06:00 12/19/23 06:23 112 MCG Diagnostic Test (Pha) 1 strip Q6HR 12/14/23 18:00 12/19/23 11:57 1 STRIP Insulin Human Regular Q6HR SC 12/14/23 18:00 12/19/23 11:58 6 UNITS Dextrose 50 ml UD PRN IV 12/14/23 18:00 Dexmedetomidine HCl 400 mcg/ Dextrose 100 ml @ 3.945 mls/ hr Q24H IV 12/15/23 11:30 Furosemide 20 mg DAILY IV 12/17/23 10:00 12/19/23 11:09 20 MG Metoprolol Tartrate 25 mg BID PO 12/16/23 22:00 12/19/23 11:11 25 MG Lorazepam 1 mg Q4H PRN IV 12/17/23 00:15 Purified Water 250 ml Q6HR GT 12/17/23 12:00 12/19/23 12:05 250 ML Losartan Potassium 25 mg DAILY PO 12/19/23 10:00 12/19/23 12:01 25 MG Enteral Nutritional Formula 1,000 ml 30ML/HR GT 12/18/23 19:30 Potassium Bicarbonate 50 meq DAILY GT 12/19/23 10:00 12/19/23 11:07 50 MEQ objective gen: nad lungs: cta cvs: no rub ext; + edema laboratory and microbiology Laboratory Tests 12/19/23 07:24 Test 12/19/23 07:24 Range/Units Serum Glucose 273 H 74-106 mg/dL Assessment/Plan YULIANA superimposed on CKD secondary to hemodynamic mediated + nephrotoxic ATN 2/2 supratherapeutic vancomycin Acute respiratory failure, intubated on ventilator GI Bleed DM II REC: - supplement potassium as you are doing - We will continue with free water at current dose - will reassess daily. Dietary Evaluation Review Comments: 1) If GI is accessible consider Glucerna 1.2 @ 55 ml/hr goal rate as tolerated 2) If pt remains NPO >7 days consider TPN to meet at least 75% of estimated needs 3) Advance pt diet when medically feasible to a CCHO 45g/Cardiac diet modified per STARTER MECHANIC recommendations 4) Continue current plan of care Expected Outcomes/Goals: 1) Pt to receive nutrition support within 7 days of NPO status 2) Pt diet to advance 3) F/U in 2-3 days Plan discussed with: MORENA Hernandez MD Dec 19, 2023 17:29
--- NOTE | 2023-12-19 17:55 | DVHPN2 ---
Consult Progress Note Date Seen: Dec 19, 2023 Subjective Patient reports: Feels better (improved tachypnea) Objective vital signs Vital Sign Date Time Temp Pulse Resp B/P (MAP) Pulse Ox O2 Delivery O2 Flow Rate FiO2 12/19/23 17:10 175/93 12/19/23 16:00 92 12/19/23 15:00 99.9 21 95 211.8 12/19/23 08:00 Trach Collar 8 30 30 Total Intake and Output 12/18/23 12/18/23 12/19/23 15:00 23:00 07:00 Intake Total 100 ml 700 ml 100 ml Output Total 1800 ml 500 ml Balance 100 ml -1100 ml -400 ml medications Current Medications Medications Dose Ordered Sig/Leslie Route Start Time Stop Time Status Last Admin Dose Admin Albuterol 2.5 mg Q4HR PRN NEB 12/08/23 19:30 12/19/23 14:31 2.5 MG Ipratropium [place] 0.5 mg Q4HR NEB 12/08/23 22:00 12/19/23 14:31 0.5 MG Ondansetron HCl 4 mg Q4HP PRN IV 12/08/23 19:30 Pantoprazole Sodium 40 mg DAILY IV 12/09/23 10:00 12/19/23 11:07 40 MG Hydralazine HCl 10 mg Q4HP PRN IV 12/09/23 05:30 12/19/23 17:10 10 MG Midazolam HCl 50 ml @ 5 mls/hr Q10H IV 12/09/23 09:00 12/14/23 21:03 4 MLS/HR Sodium Chloride 10 ml QSHIFT@10,22 IV 12/09/23 22:00 12/19/23 11:11 10 ML Enoxaparin Sodium 70 mg Q12HR SC 12/09/23 22:00 12/19/23 11:08 70 MG Acetaminophen 650 mg Q6HP PRN [place] 12/10/23 01:30 12/13/23 06:51 650 MG Enteral Nutritional Formula 1,000 ml 30ML/HR GT 12/10/23 16:45 12/15/23 08:00 1,000 ML Metoclopramide HCl 5 mg Q6HPRN PRN IV 12/13/23 21:45 Levothyroxine Sodium 112 mcg QAM@0600 PO 12/15/23 06:00 12/19/23 06:23 112 MCG Diagnostic Test (Pha) 1 strip Q6HR 12/14/23 18:00 12/19/23 17:34 1 STRIP Insulin Human Regular Q6HR SC 12/14/23 18:00 12/19/23 17:35 4 UNITS Dextrose 50 ml UD PRN IV 12/14/23 18:00 Dexmedetomidine HCl 400 mcg/ Dextrose 100 ml @ 3.945 mls/ hr Q24H IV 12/15/23 11:30 Furosemide 20 mg DAILY IV 12/17/23 10:00 12/19/23 11:09 20 MG Metoprolol Tartrate 25 mg BID PO 12/16/23 22:00 12/19/23 11:11 25 MG Lorazepam 1 mg Q4H PRN IV 12/17/23 00:15 Purified Water 250 ml Q6HR GT 12/17/23 12:00 12/19/23 17:35 250 ML Losartan Potassium 25 mg DAILY PO 12/19/23 10:00 12/19/23 12:01 25 MG Enteral Nutritional Formula 1,000 ml 30ML/HR GT 12/18/23 19:30 Potassium Bicarbonate 50 meq DAILY GT 12/19/23 10:00 12/19/23 11:07 50 MEQ Physical Exam: - General: NAD - Neck: Supple. No masses. - HEENT: PERRL. Normal lids and conjunctiva. Moist mucous membranes. Oropharynx without lesions, exudates or excessive erythema. Normal appearance of the external aspects of the nose and ears. - Heart: Regular rhythm, normal rate. No murmurs. Tachycardic. - Lungs: Normal respiratory effort. Clear to auscultation bilaterally. No wheezes. No crackles. - Abdomen: Soft. Non-tender. Non-distended. No masses or abdominal hernia. - Msk: Bilateral upper and lower extremities are contracted. - Skin: Warm and dry, no rashes. - Neuro: Alert. No facial droop or slurred speech. Extra-ocular movements intact. Sensation intact to soft touch in all 4 limbs. - Psych: Appropriate mood. Full affect. Oriented to person, place, time, and situation. laboratory and microbiology Laboratory Tests 12/19/23 07:24 Test 12/19/23 07:24 Range/Units Serum Glucose 273 H 74-106 mg/dL Problem List/Assessment/Plan Problem List/Assessment/Plan Assessment/Plan Problems(with codes): (1) Hospital-acquired pneumonia (2) COPD (chronic obstructive pulmonary disease) (3) DKA (diabetic ketoacidosis) (4) HTN (hypertension) (5) Closed right hip fracture Plan/Recommendation ASSESSMENT AND PLAN: ID Problem List: - Aspiration pneumonia - Acute respiratory failure - Diabetic Ketoacidosis (DKA) - Sepsis due to UTI vs pneumonia - Acute Kidney Injury (YULIANA) - Hypernatremia - Transaminitis - Fatty liver - Uncontrolled diabetes (A1C of 11.7) - Hypothyroidism - Hypertension - COPD without exacerbation - Chronic kidney disease (CKD) Assessment: This is a 68-year-old female with a past medical history of diabetes, hypertension, recurrent DKA, hypothyroidism, obesity, COPD, neuropathies, mechanical falls, liver cirrhosis, and multiple joint replacements. The patient presented to the ED with acute loss of consciousness on 11/15/2023, subsequently diagnosed with DKA and an upper GI bleed. While at [facility] [place] a CT and MRI of the head showed concerning lesions for metastasis vs. infectious process and gallbladder issues. Due to renal failure, these images were performed without contrast. An ERCP at [facility] showed no gallstones or common bile duct obstruction. Currently, the patient is reintubated on minimal sedation and receiving broad-spectrum antibiotics for presumed meningitis and other infections. 12/09: Patient has had a repeat abdomen, pelvis, chest Ct with contrast which shows no acute findings in the abdomen and pelvis. multifocal airspace in the lungs was shown. 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 12/12: sp trach 12/13: off sedation Plan: - stop unasyn, low concern for pneumonia or sacral ulcer infection at this time. - sp 3 week vancomycin and ceftriaxone course, will monitor patient off all antibiotics - Blood cultures monitoring. - Monitor respiratory status and adjust ventilator settings as necessary. - Monitor and manage blood glucose levels. - Supportive care as needed. Isolation Precautions: Standard Total critical care time: Approximately 61 minutes Due to a high probability of clinically significant, life threatening deterioration, the patient required my highest level of preparedness to intervene emergently and I personally spent this critical care time directly and personally managing the patient. This critical care time included obtaining a history; examining the patient; pulse oximetry; ordering and review of studies; arranging urgent treatment with development of a management plan; evaluation of patient's response to treatment; frequent reassessment; and, discussions with other providers. This critical care time was performed to assess and manage the high probability of imminent, life-threatening deterioration that could result in multi-organ failure. It was exclusive of separately billable procedures and treating other patients and teaching time. Assessment and plan was discussed with the patient as written above. Plan is subject to change pending incorporation of new incoming information/diagnostics. Updates may be added as addendum at the bottom (OR TOP) of this note. Thank you for interesting consult. ID will continue to follow. Please contact Infectious disease for any questions or concerns. Nithin Carrasco M.D. [facility] Ph: ? Plan discussed with: Patient Dietary Evaluation Review Comments: 1) If GI is accessible consider Glucerna 1.2 @ 55 ml/hr goal rate as tolerated 2) If pt remains NPO >7 days consider TPN to meet at least 75% of estimated needs 3) Advance pt diet when medically feasible to a CCHO 45g/Cardiac diet modified per APARTMENT MANAGER recommendations 4) Continue current plan of care Expected Outcomes/Goals: 1) Pt to receive nutrition support within 7 days of NPO status 2) Pt diet to advance 3) F/U in 2-3 days NITHIN CARRASCO MD Dec 19, 2023 17:55
--- NOTE | 2023-12-19 21:18 | DVHPN2 ---
Progress Note - Dictate Date Seen: Dec 19, 2023 Has the PT tested + for MRSA If YES, has PT been informed?: No Medical Necessity Reason Pt with a Central, PICC or Fol: Yes The following are medically ne: PICC Line, Carr Catheter Reason for carr catheter: Strict I&O Subjective Mr. Sanderson is a 68 years old female with a history of hypertension, diabetes, hypothyroidism, COPD, obesity, diabetic polyneuropathy, arthritis, liver cirrhosis, she was transferred back from the [facility] on 12/08/2023 after ERCP. I have seen examined the patient, I have talked to her nurse, her eyes are open and she tracks and respond to my verbal stimuli, and follows a little bit, I do not see movement in the extremities [facility] Neurosurgery consultation: The lesions likely represents infarct, recommend Re attempting MRI spectrography for further evaluation Neuro consultation: Lumbar puncture was not recommended concerning possibility of herniation EEG, 11/28/2023: No seizure/nonconvulsive status epileptics (I did not see report) TTE, 11/29/23: EF: 70-75% (I did not see report) MRI brain (no report): signal abnormality in bilateral cerebellum and right occipital lobe, punctate foci in right parietal lobe and central semiovale- unable to differentiate subacute ischemia 2/2 MR effects versus infection versus metastasis. Recommend contrast enhanced MRI MRI, 12/05/23: No evidence of demyelinating disease (I did not see report) MRI orbital, face, neck ww 12/05/2023, comparison: MR brain 11/28/2023: No evidence of mucormycosis infection. Multiple irregularly enhancing cerebellar and right occipital lesions were better evaluated on recent brain MRI MRI C-spine, 12/05/2023: No evidence of demyelinating disease in the cervical spine. Moderate degenerative changes. Grade 1 anterolisthesis of C7 on T1 MRI lumbar spine wwo, 12/05/2023: No evidence of demyelinating disease in the lumbar spine. Degenerative changes and grade 1 anterolisthesis of L4 and L5. Mild central spinal stenosis at L4-5. [id number] multilevel bilateral foraminal stenosis as described above MRI spectroscopy 12/05/2023: Cerebellar lesion showing moderately elevated Cho, reduced ZINA, large lipid peaks, and additional tics suspicious for amino acids and alanine. The alanine and amino acids are suspicious for an infectious process Treatment according to discharge note: ASA 81mg Qd, Lipitor 20 mg daily Urinalysis, 12/08/2023: WBC: 93, urine leukocyte esterase: 3+ ABG, 12/09/2023: Metabolic acidosis WBC/HB/PLT/MCV, 12/09/2023: 8.5/7.4/350/92.4 PT/INR/PTT, 12/08/2023: 11.4/1.08 Na, 12/08/2023: 147, 12/09/2023: 146, 12/19/2019 4:148 HCO3, 12/08/2023: 23, 12/10/2023: 22, 11/2123: 19, 12/13/23: 18, 12/16/2023: 15, 12/19/2023: 17 CPK, 12/18/2023: 54 TBI/AST/ALT/AP, 12/09/2023: 0.2/40/21/278 TG/HDL/LDL/HDL, 11/2023: 136/96/38/32 Vitamin B12, 11/2023: 2537 TSH, 11/2023: 17.87 YOLANDA, 12/10/2023: n the study done today no evidence of vegetation or masses were discernible. There is mild mitral valve regurgitation with mild anterior leaflet prolapse. No significant intracardiac lesion was discernible Echocardiogram, 11/18/2023: Normal left ventricular size and dimension. Normal left ventricular systolic function estimated ejection fraction 55%. There is a grade 1 diastolic dysfunction. Normal right ventricular size and dimension. Normal right ventricular systolic function. Mildly increased right ventricular systolic pressure 34 mm of mercury. Normal biatrial size and dimension. Normal aortic valve structure and function. Normal mitral valve structure and function. Normal tricuspid valve structure and function. The pulmonary valve is grossly normal. No pericardial effusion. Carotid Doppler, 11/21/2023: 1. No evidence of hemodynamically significant stenosis within the left carotid arterial system. 2. Antegrade flow within the left vertebral artery. 3. Cannot assess the right carotid arterial system due to central line artifact and overlying bandage. Extremity venous study, 12/09/2023: Thrombus in the LEFT cephalic and brachial vein. Thrombus in the RIGHT cephalic and basilic vein.If clinical concern/symptoms persist or worsen, short-interval follow-up study is suggested. Chest x-ray, 12/08/2023: 1. Endotracheal and gastric tubes in place as described. Satisfactory position. 2. Removal of right PICC and right IJ central venous catheter since prior. 3. Mild cardiomegaly and pulmonary vascular congestion. 4. Small opacity in the lateral right lung base which could reflect atelectasis or pneumonia MRI head, 11/21/2023: Signal abnormality in the bilateral cerebellum and right occipital lobe, as well as punctate foci in the right parietal lobe and centrum semiovale. Findings could represent regions of subacute ischemia due to embolic infarcts; however, underlying metastases or infection are not excluded. Recommend contrast-enhanced MRI vital signs Vital Sign Date Time Temp Pulse Resp B/P (MAP) Pulse Ox O2 Delivery O2 Flow Rate FiO2 12/19/23 21:00 99.0 97 20 162/85 (110) 100 210.2 12/19/23 20:00 Trach Collar 8 30 30 Total Intake and Output 12/18/23 12/18/23 12/19/23 15:00 23:00 07:00 Intake Total 100 ml 700 ml 100 ml Output Total 1800 ml 500 ml Balance 100 ml -1100 ml -400 ml medications Current Medications Medications Dose Ordered Sig/Leslie Route Start Time Stop Time Status Last Admin Dose Admin Albuterol 2.5 mg Q4HR PRN NEB 12/08/23 19:30 12/19/23 18:51 2.5 MG Ipratropium [place] 0.5 mg Q4HR NEB 12/08/23 22:00 12/19/23 18:51 0.5 MG Ondansetron HCl 4 mg Q4HP PRN IV 12/08/23 19:30 Pantoprazole Sodium 40 mg DAILY IV 12/09/23 10:00 12/19/23 11:07 40 MG Hydralazine HCl 10 mg Q4HP PRN IV 12/09/23 05:30 12/19/23 17:10 10 MG Midazolam HCl 50 ml @ 5 mls/hr Q10H IV 12/09/23 09:00 12/14/23 21:03 4 MLS/HR Sodium Chloride 10 ml QSHIFT@10,22 IV 12/09/23 22:00 12/19/23 11:11 10 ML Enoxaparin Sodium 70 mg Q12HR SC 12/09/23 22:00 12/19/23 11:08 70 MG Acetaminophen 650 mg Q6HP PRN MT 12/10/23 01:30 12/13/23 06:51 650 MG Enteral Nutritional Formula 1,000 ml 30ML/HR GT 12/10/23 16:45 12/15/23 08:00 1,000 ML Metoclopramide HCl 5 mg Q6HPRN PRN IV 12/13/23 21:45 Levothyroxine Sodium 112 mcg QAM@0600 PO 12/15/23 06:00 12/19/23 06:23 112 MCG Diagnostic Test (Pha) 1 strip Q6HR 12/14/23 18:00 12/19/23 17:34 1 STRIP Insulin Human Regular Q6HR SC 12/14/23 18:00 12/19/23 17:35 4 UNITS Dextrose 50 ml UD PRN IV 12/14/23 18:00 Dexmedetomidine HCl 400 mcg/ Dextrose 100 ml @ 3.945 mls/ hr Q24H IV 12/15/23 11:30 Furosemide 20 mg DAILY IV 12/17/23 10:00 12/19/23 11:09 20 MG Metoprolol Tartrate 25 mg BID PO 12/16/23 22:00 12/19/23 11:11 25 MG Lorazepam 1 mg Q4H PRN IV 12/17/23 00:15 Purified Water 250 ml Q6HR GT 12/17/23 12:00 12/19/23 17:35 250 ML Losartan Potassium 25 mg DAILY PO 12/19/23 10:00 12/19/23 12:01 25 MG Enteral Nutritional Formula 1,000 ml 30ML/HR GT 12/18/23 19:30 Potassium Bicarbonate 50 meq DAILY GT 12/19/23 10:00 12/19/23 11:07 50 MEQ objective The patient is well-nourished and well-developed with no distress. MENTAL STATUS: Subjective CRANIAL NERVES: Pupils are equal, round and reactive, small. There are c onjugated eye movements. No signs of facial weakness. There are no gagging or coughing reflexes during oral care SENSATION: Responses to pain stimuli. MOTOR: Normal tone in the upper and lower extremity. Normal muscle bulk. No fasciculations. Spontaneous movement in the feet noticed REFLEXES: Deep tendon reflexes are symmetrical. No pathological reflexes. CEREBELLAR/COORDINATION: Deferred GAIT/STATION: deferred. laboratory and microbiology Laboratory Tests 12/19/23 07:24 Test 12/19/23 07:24 Range/Units Serum Glucose 273 H 74-106 mg/dL Problem List Abnormal MRI brain scan, likely the patient has multiple stroke Coma Metabolic encephalopathy Hypoxic encephalopathy Multiple strokes Ketoacidosis ICU myopathy Bilateral upper extremity deep venous thrombosis Rule out subacute endocarditis Status post tracheostomy Status post PEG tube Assessment/Plan Monitoring Supportive treatment ICU care Respiratory support Stabilize vitals IV antibiotics Lovenox 1 mg/kg subcutaneous b.i.d. Lipitor 20 mg daily Tube feeding Cardiology on case Infectious disease on case More recommendation per clinical course This medical document was created using an electronic medical record system with [employer] dictation system. Although this document has been carefully reviewed, there may still be some phonetic and typographical errors. These areas are purely typographical due to imperfections of the software programs, and do not reflect any compromise in the patient's medical care. Prognosis poor Dietary Evaluation Review Comments: 1) If GI is accessible consider Glucerna 1.2 @ 55 ml/hr goal rate as tolerated 2) If pt remains NPO >7 days consider TPN to meet at least 75% of estimated needs 3) Advance pt diet when medically feasible to a CCHO 45g/Cardiac diet modified per CIRCULATION LIBRARIAN recommendations 4) Continue current plan of care Expected Outcomes/Goals: 1) Pt to receive nutrition support within 7 days of NPO status 2) Pt diet to advance 3) F/U in 2-3 days Plan discussed with: Other DREW FAGAN MD Dec 19, 2023 21:17
[2023-12-20] VITALS (38 sets, daily range): BP systolic 114–170; BP diastolic 62–92; PULSE 70–105; RESP 12–41; TEMP 98.6–100.2; O2SAT 92–100
[2023-12-20 05:13] LABS: Basophils # (auto) 0 10 ^3/uL (0-0.2); Basophils % (auto) 0.7 % (0.0-2.0); Eosinophils # (auto) 0.7 10 ^3/uL (0-0.8); Hematocrit 30.4 % (36.0-46.0); Hemoglobin 9.5 g/dL (12.2-16.2); Lymphocytes # (auto) 1.8 10 ^3/uL (0.4-5.4); Mean Corpuscular Hemoglobin 27.5 pg (28.0-32.0); Mean Corpuscular Hgb Conc. 31.3 g/dL (32.0-36.0); Mean Corpuscular Volume 87.8 fL (80.0-100.0); Monocytes # (auto) 0.5 10 ^3/uL (0-1.3); Monocytes % (auto) 8.6 % (0.0-12.0); Neutrophils # (auto) 2.7 10 ^3/uL (1.6-8.6); Neutrophils % (auto) 46.7 % (37.0-80.0); Platelet Count (auto) 438 10^3/uL (140-450); Red Blood Cells 3.46 10^6/uL (4.0-5.20); Red Cell Distribution Width 16.8 % (11.8-14.3); White Blood Cell 5.7 10^3/uL (4.4-10.8)
[2023-12-20 05:37] LABS: Alanine Aminotransferase 19 U/L (7-40); Albumin 3.5 g/dL (3.2-4.8); Alkaline Phosphatase 170 U/L (46-116); Anion Gap 10 (5-15); Aspartate Aminotransferase 22 U/L (13-40); Bilirubin, Total < 0.2 mg/dL (0.2-1.0); Blood Urea Nitrogen 11 mg/dL (9-23); Calcium 10.2 mg/dL (8.7-10.4); Carbon Dioxide 27 mmol/L (20-31); Chloride 113 mmol/L (98-107); Glucose 192 mg/dL (74-106); Magnesium 1.8 mg/dL (1.6-2.6); Potassium 3.1 mmol/L (3.5-5.1); Sodium 150 mmol/L (136-145); Total Protein 6.5 g/dL (5.7-8.2)
--- NOTE | 2023-12-20 06:04 | DVH ---
CHEST RADIOGRAPH Indication:reevaluate lung parenchyma and tubes positioning Technique: Single frontal view of the chest was obtained Comparison: XY CHEST PORTABLE on DOS: 12/19/23, XY CHEST XRAY 1 VIEW on DOS: 12/18/23, XY CHEST XRAY 1 VIEW on DOS: 12/17/23, XY CHEST XRAY 1 VIEW on DOS: 12/16/23, XY CHEST XRAY 1 VIEW on DOS: 12/15/23, XY CHEST PORTABLE on DOS: 12/19/23 FINDINGS: Lines and Tubes: Tracheostomy and left PICC in satisfactory position. Lungs: Mild congestion Pleura: No effusion. No pneumothorax. Cardiomediastinal contours: Unremarkable Bones: Unremarkable IMPRESSION: No significant interval change
[2023-12-20] MEDS: POTASSIUM CHL 20MEQ/100ML 100 ML IV SCH ×2 (09:14→13:45)
[2023-12-20] MEDS: MAGNESIUM SULFATE 1GM/100ML 100 ML IV ONE (09:14)
--- NOTE | 2023-12-20 10:17 | DVHPN2 ---
Progress Note - Dictate Date Seen: Dec 20, 2023 Has the PT tested + for MRSA If YES, has PT been informed?: No Medical Necessity Reason Pt with a Central, PICC or Fol: Yes The following are medically ne: PICC Line, Carr Catheter Reason for carr catheter: Strict I&O Subjective Mr. Sanderson is a 68 years old female with a history of hypertension, diabetes, hypothyroidism, COPD, obesity, diabetic polyneuropathy, arthritis, liver cirrhosis, she was transferred back from the [facility] on 12/08/2023 after ERCP. I have seen examined the patient, I have talked to her nurse, she was awake, she follows verbal commands a little bit, she is able to move the hand and bilateral toes a little bit [facility] Neurosurgery consultation: The lesions likely represents infarct, recommend Re attempting MRI spectrography for further evaluation Neuro consultation: Lumbar puncture was not recommended concerning possibility of herniation EEG, 11/28/2023: No seizure/nonconvulsive status epileptics (I did not see report) TTE, 11/29/23: EF: 70-75% (I did not see report) MRI brain (no report): signal abnormality in bilateral cerebellum and right occipital lobe, punctate foci in right parietal lobe and central semiovale- unable to differentiate subacute ischemia 2/2 MR effects versus infection versus metastasis. Recommend contrast enhanced MRI MRI, 12/05/23: No evidence of demyelinating disease (I did not see report) MRI orbital, face, neck ww 12/05/2023, comparison: MR brain 11/28/2023: No evidence of mucormycosis infection. Multiple irregularly enhancing cerebellar and right occipital lesions were better evaluated on recent brain MRI MRI C-spine, 12/05/2023: No evidence of demyelinating disease in the cervical spine. Moderate degenerative changes. Grade 1 anterolisthesis of C7 on T1 MRI lumbar spine wwo, 12/05/2023: No evidence of demyelinating disease in the lumbar spine. Degenerative changes and grade 1 anterolisthesis of L4 and L5. Mild central spinal stenosis at L4-5. [id number] multilevel bilateral foraminal stenosis as described above MRI spectroscopy 12/05/2023: Cerebellar lesion showing moderately elevated Cho, reduced ZINA, large lipid peaks, and additional tics suspicious for amino acids and alanine. The alanine and amino acids are suspicious for an infectious process Treatment according to discharge note: ASA 81mg Qd, Lipitor 20 mg daily Urinalysis, 12/08/2023: WBC: 93, urine leukocyte esterase: 3+ ABG, 12/09/2023: Metabolic acidosis WBC/HB/PLT/MCV, 12/09/2023: 8.5/7.4/350/92.4 PT/INR/PTT, 12/08/2023: 11.4/1.08 Na, 12/08/2023: 147, 12/09/2023: 146, 12/19/2019 4:148 HCO3, 12/08/2023: 23, 12/10/2023: 22, 11/2123: 19, 12/13/23: 18, 12/16/2023: 15, 12/19/2023: 17 CPK, 12/18/2023: 54 TBI/AST/ALT/AP, 12/09/2023: 0.2/40/21/278 TG/HDL/LDL/HDL, 11/2023: 136/96/38/32 Vitamin B12, 11/2023: 2537 TSH, 11/2023: 17.87 YOLANDA, 12/10/2023: n the study done today no evidence of vegetation or masses were discernible. There is mild mitral valve regurgitation with mild anterior leaflet prolapse. No significant intracardiac lesion was discernible Echocardiogram, 11/18/2023: Normal left ventricular size and dimension. Normal left ventricular systolic function estimated ejection fraction 55%. There is a grade 1 diastolic dysfunction. Normal right ventricular size and dimension. Normal right ventricular systolic function. Mildly increased right ventricular systolic pressure 34 mm of mercury. Normal biatrial size and dimension. Normal aortic valve structure and function. Normal mitral valve structure and function. Normal tricuspid valve structure and function. The pulmonary valve is grossly normal. No pericardial effusion. Carotid Doppler, 11/21/2023: 1. No evidence of hemodynamically significant stenosis within the left carotid arterial system. 2. Antegrade flow within the left vertebral artery. 3. Cannot assess the right carotid arterial system due to central line artifact and overlying bandage. Extremity venous study, 12/09/2023: Thrombus in the LEFT cephalic and brachial vein. Thrombus in the RIGHT cephalic and basilic vein.If clinical concern/symptoms persist or worsen, short-interval follow-up study is suggested. Chest x-ray, 12/08/2023: 1. Endotracheal and gastric tubes in place as described. Satisfactory position. 2. Removal of right PICC and right IJ central venous catheter since prior. 3. Mild cardiomegaly and pulmonary vascular congestion. 4. Small opacity in the lateral right lung base which could reflect atelectasis or pneumonia MRI head, 11/21/2023: Signal abnormality in the bilateral cerebellum and right occipital lobe, as well as punctate foci in the right parietal lobe and centrum semiovale. Findings could represent regions of subacute ischemia due to embolic infarcts; however, underlying metastases or infection are not excluded. Recommend contrast-enhanced MRI vital signs Vital Sign Date Time Temp Pulse Resp B/P (MAP) Pulse Ox O2 Delivery O2 Flow Rate FiO2 12/20/23 10:10 97 20 95 12/20/23 09:00 99.0 162/89 (113) 210.2 12/20/23 06:54 Trach Collar 8.0 12/20/23 02:37 30 30 Total Intake and Output 12/19/23 12/19/23 12/20/23 15:00 23:00 07:00 Intake Total 172 ml 860 ml Output Total 1300 ml 550 ml Balance -1128 ml 310 ml medications Current Medications Medications Dose Ordered Sig/Leslie Route Start Time Stop Time Status Last Admin Dose Admin Albuterol 2.5 mg Q4HR PRN NEB 12/08/23 19:30 12/20/23 10:09 2.5 MG Ipratropium [place] 0.5 mg Q4HR NEB 12/08/23 22:00 12/20/23 10:09 0.5 MG Ondansetron HCl 4 mg Q4HP PRN IV 12/08/23 19:30 Pantoprazole Sodium 40 mg DAILY IV 12/09/23 10:00 12/19/23 11:07 40 MG Hydralazine HCl 10 mg Q4HP PRN IV 12/09/23 05:30 12/20/23 06:07 10 MG Midazolam HCl 50 ml @ 5 mls/hr Q10H IV 12/09/23 09:00 12/14/23 21:03 4 MLS/HR Sodium Chloride 10 ml QSHIFT@10,22 IV 12/09/23 22:00 12/19/23 22:01 10 ML Enoxaparin Sodium 70 mg Q12HR SC 12/09/23 22:00 12/19/23 22:02 70 MG Acetaminophen 650 mg Q6HP PRN ME 12/10/23 01:30 12/13/23 06:51 650 MG Enteral Nutritional Formula 1,000 ml 30ML/HR GT 12/10/23 16:45 12/15/23 08:00 1,000 ML Metoclopramide HCl 5 mg Q6HPRN PRN IV 12/13/23 21:45 Levothyroxine Sodium 112 mcg QAM@0600 PO 12/15/23 06:00 12/20/23 05:11 112 MCG Diagnostic Test (Pha) 1 strip Q6HR 12/14/23 18:00 12/20/23 05:58 1 STRIP Insulin Human Regular Q6HR SC 12/14/23 18:00 12/20/23 05:58 3 UNITS Dextrose 50 ml UD PRN IV 12/14/23 18:00 Dexmedetomidine HCl 400 mcg/ Dextrose 100 ml @ 3.945 mls/ hr Q24H IV 12/15/23 11:30 Furosemide 20 mg DAILY IV 12/17/23 10:00 12/19/23 11:09 20 MG Metoprolol Tartrate 25 mg BID PO 12/16/23 22:00 12/19/23 22:02 25 MG Lorazepam 1 mg Q4H PRN IV 12/17/23 00:15 Purified Water 250 ml Q6HR GT 12/17/23 12:00 12/20/23 05:11 250 ML Losartan Potassium 25 mg DAILY PO 12/19/23 10:00 12/19/23 12:01 25 MG Enteral Nutritional Formula 1,000 ml 30ML/HR GT 12/18/23 19:30 Potassium Bicarbonate 50 meq DAILY GT 12/19/23 10:00 12/19/23 11:07 50 MEQ Potassium Chloride 100 ml @ 50 mls/hr Q2H IV 12/20/23 07:00 12/20/23 10:59 12/20/23 09:14 50 MLS/HR objective The patient is well-nourished and well-developed with no distress. Status post tracheostomy and feeding tube insertion MENTAL STATUS: Subjective CRANIAL NERVES: Pupils are equal, round and reactive, small. There are c onjugated eye movements. No signs of facial weakness. There are no gagging or coughing reflexes during oral care SENSATION: Responses to pain stimuli. MOTOR: Normal tone in the upper and lower extremity. Normal muscle bulk. No fasciculations. She moves the hands and bilateral toes a little bit REFLEXES: Deep tendon reflexes are symmetrical. No pathological reflexes. CEREBELLAR/COORDINATION: Deferred GAIT/STATION: deferred. laboratory and microbiology Laboratory Tests 12/20/23 04:54 Test 12/20/23 04:54 Range/Units Serum Glucose 192 H 74-106 mg/dL Problem List Abnormal MRI brain scan, likely the patient has multiple stroke Coma Metabolic encephalopathy Hypoxic encephalopathy Multiple strokes Ketoacidosis ICU myopathy Bilateral upper extremity deep venous thrombosis Rule out subacute endocarditis Status post tracheostomy Status post PEG tube Assessment/Plan Monitoring Supportive treatment ROB care Respiratory support Stabilize vitals IV antibiotics Lovenox 1 mg/kg subcutaneous b.i.d. Lipitor 20 mg daily Tube feeding Cardiology on case Infectious disease on case More recommendation per clinical course This medical document was created using an electronic medical record system with [employer] dictation system. Although this document has been carefully reviewed, there may still be some phonetic and typographical errors. These areas are purely typographical due to imperfections of the software programs, and do not reflect any compromise in the patient's medical care. Prognosis poor Dietary Evaluation Review Comments: 1) If GI is accessible consider Glucerna 1.2 @ 55 ml/hr goal rate as tolerated 2) If pt remains NPO >7 days consider TPN to meet at least 75% of estimated needs 3) Advance pt diet when medically feasible to a CCHO 45g/Cardiac diet modified per TRANSPLANT CASE MANAGER recommendations 4) Continue current plan of care Expected Outcomes/Goals: 1) Pt to receive nutrition support within 7 days of NPO status 2) Pt diet to advance 3) F/U in 2-3 days Plan discussed with: Other DREW FAGAN MD Dec 20, 2023 10:17
--- NOTE | 2023-12-20 13:42 | DVHPN2 ---
Progress Note - Dictate Date Seen: Dec 20, 2023 Has the PT tested + for MRSA If YES, has PT been informed?: No Medical Necessity Reason Pt with a Central, PICC or Fol: Yes The following are medically ne: PICC Line, Carr Catheter Reason for carr catheter: Strict I&O vital signs Vital Sign Date Time Temp Pulse Resp B/P (MAP) Pulse Ox O2 Delivery O2 Flow Rate FiO2 12/20/23 12:00 99.3 94 41 134/89 (104) 96 210.7 12/20/23 10:17 Trach Collar 8.0 12/20/23 02:37 30 30 Total Intake and Output 12/19/23 12/19/23 12/20/23 15:00 23:00 07:00 Intake Total 172 ml 860 ml Output Total 1300 ml 550 ml Balance -1128 ml 310 ml medications Current Medications Medications Dose Ordered Sig/Leslie Route Start Time Stop Time Status Last Admin Dose Admin Albuterol 2.5 mg Q4HR PRN NEB 12/08/23 19:30 12/20/23 10:09 2.5 MG Ipratropium [place] 0.5 mg Q4HR NEB 12/08/23 22:00 12/20/23 10:09 0.5 MG Ondansetron HCl 4 mg Q4HP PRN IV 12/08/23 19:30 Pantoprazole Sodium 40 mg DAILY IV 12/09/23 10:00 12/20/23 10:53 40 MG Hydralazine HCl 10 mg Q4HP PRN IV 12/09/23 05:30 12/20/23 06:07 10 MG Midazolam HCl 50 ml @ 5 mls/hr Q10H IV 12/09/23 09:00 12/14/23 21:03 4 MLS/HR Sodium Chloride 10 ml QSHIFT@10,22 IV 12/09/23 22:00 12/20/23 10:53 10 ML Enoxaparin Sodium 70 mg Q12HR SC 12/09/23 22:00 12/20/23 10:56 70 MG Acetaminophen 650 mg Q6HP PRN NC 12/10/23 01:30 12/13/23 06:51 650 MG Enteral Nutritional Formula 1,000 ml 30ML/HR GT 12/10/23 16:45 12/15/23 08:00 1,000 ML Metoclopramide HCl 5 mg Q6HPRN PRN IV 12/13/23 21:45 Levothyroxine Sodium 112 mcg QAM@0600 PO 12/15/23 06:00 12/20/23 05:11 112 MCG Diagnostic Test (Pha) 1 strip Q6HR 12/14/23 18:00 12/20/23 12:39 1 STRIP Insulin Human Regular Q6HR SC 12/14/23 18:00 12/20/23 12:30 8 UNITS Dextrose 50 ml UD PRN IV 12/14/23 18:00 Dexmedetomidine HCl 400 mcg/ Dextrose 100 ml @ 3.945 mls/ hr Q24H IV 12/15/23 11:30 Furosemide 20 mg DAILY IV 12/17/23 10:00 12/20/23 10:54 20 MG Metoprolol Tartrate 25 mg BID PO 12/16/23 22:00 12/20/23 10:54 25 MG Lorazepam 1 mg Q4H PRN IV 12/17/23 00:15 Purified Water 250 ml Q6HR GT 12/17/23 12:00 12/20/23 12:36 250 ML Losartan Potassium 25 mg DAILY PO 12/19/23 10:00 12/20/23 10:53 25 MG Enteral Nutritional Formula 1,000 ml 30ML/HR GT 12/18/23 19:30 Potassium Bicarbonate 50 meq DAILY GT 12/19/23 10:00 12/20/23 10:55 50 MEQ objective gen: nad lungs: cta cvs: no rub ext; + edema laboratory and microbiology Laboratory Tests 12/20/23 04:54 Test 12/20/23 04:54 Range/Units Serum Glucose 192 H 74-106 mg/dL Assessment/Plan YULIANA resolved previous vanco tox and ATN Acute respiratory failure, intubated on ventilator GI Bleed DM II Hypernatremia Hypo kalemia Excessive free water losses recommend in addition to free water only adding D5W If patient develops hyperglycemia then recommend increasing insulin Replace potassium daily Acute kidney injury has resolved Dietary Evaluation Review Comments: 1) If GI is accessible consider Glucerna 1.2 @ 55 ml/hr goal rate as tolerated 2) If pt remains NPO >7 days consider TPN to meet at least 75% of estimated needs 3) Advance pt diet when medically feasible to a CCHO 45g/Cardiac diet modified per COAL TRAM DRIVER recommendations 4) Continue current plan of care Expected Outcomes/Goals: 1) Pt to receive nutrition support within 7 days of NPO status 2) Pt diet to advance 3) F/U in 2-3 days Plan discussed with: AUGUSTIN Odell MD Dec 20, 2023 13:42
[2023-12-20] MEDS: D5W 5% 1,000 ML IV SCH (16:09)
--- NOTE | 2023-12-20 17:14 | DVHPNRES ---
Progress Note Date Seen: Dec 20, 2023 Resident Creating Document: DANELLE MENDIETA RESIDENT Has the PT tested + for MRSA If YES, has PT been informed?: No Medical Necessity Reason Pt with a Central, PICC or Fol: Yes The following are medically ne: PICC Line, Carr Catheter Reason for carr catheter: Strict I&O Subjective Review of Systems This is a 68-year-old female with past medical history of hypertension, diabetes mellitus type 2, hypothyroidism, COPD, obesity, diabetic polyneuropathy, liver cirrhosis, right knee replacement, multiple admissions for DKA. The patient was initially seen at [facility] on 11/16/2023 where he was intubated and transferred to our facility. At our facility he was treated for DKA and was found to have space occupying lesions in the brain (metastasis/infection/stroke) MRI of the head was done with no conclusive findings at that time. CT scan of the abdomen and pelvis at that time showed dilation of common bile duct and GI recommended ERCP/endoscopic ultrasound so patient was transferred on 11/26/2023 to [place]. ERCP and ultrasound was performed showing no obstruction either malignancy or stone at that time. Neurosurgery at [place] evaluated MRI results and stated that could be due to infarcts. Neurologist was against lumbar puncture due to increased risk of herniation. patient was extubated on November 28, 2023 and was transferred step-down unit with 2 L of nasal cannula but lately on December 02 patient became shortness of breath tachypneic required reintubation. The patient had sepsis of unknown etiology and they thought it might be related to the brain lesions so patient was started on broad-spectrum IV antibiotics with MRSA coverage. Patient was readmitted back at [facility]. Patient seen and examined at bedside. The patient is currently off sedation and requiring no vasopressors at this time. Patient is currently on a trach collar at 9 L of oxygen with an FiO2 of 30% saturating 97%. Patient is awake and alert is not able to actively follow commands but understands everything that is spoke to her and sometimes not his head to answer to simple questions. Spoke with her daughter Chelsea at bedside, we explained that the creatinine is coming down and that we are considering doing an MRI of the brain with contrast to take a better overview of what is going on with the brain occupying lesions. We will order physical therapy, stop Lasix and increase losartan to 50 mg q.d.. ROS unable to obtain due to patient current status intubated. Objective vital signs Vital Sign Date Time Temp Pulse Resp B/P (MAP) Pulse Ox O2 Delivery O2 Flow Rate FiO2 12/20/23 14:07 98 Trach Collar 8.0 12/20/23 14:01 82 16 12/20/23 14:00 99.7 157/86 (109) 211.5 12/20/23 02:37 30 30 Total Intake and Output 12/19/23 12/19/23 12/20/23 15:00 23:00 07:00 Intake Total 172 ml 860 ml Output Total 1300 ml 550 ml Balance -1128 ml 310 ml medications Current Medications Medications Dose Ordered Sig/Leslie Route Start Time Stop Time Status Last Admin Dose Admin Albuterol 2.5 mg Q4HR PRN NEB 12/08/23 19:30 12/20/23 14:01 2.5 MG Ipratropium [place] 0.5 mg Q4HR NEB 12/08/23 22:00 12/20/23 14:01 0.5 MG Ondansetron HCl 4 mg Q4HP PRN IV 12/08/23 19:30 Pantoprazole Sodium 40 mg DAILY IV 12/09/23 10:00 12/20/23 10:53 40 MG Hydralazine HCl 10 mg Q4HP PRN IV 12/09/23 05:30 12/20/23 06:07 10 MG Sodium Chloride 10 ml QSHIFT@10,22 IV 12/09/23 22:00 12/20/23 10:53 10 ML Enoxaparin Sodium 70 mg Q12HR SC 12/09/23 22:00 12/20/23 10:56 70 MG Acetaminophen 650 mg Q6HP PRN [place] 12/10/23 01:30 12/13/23 06:51 650 MG Enteral Nutritional Formula 1,000 ml 30ML/HR GT 12/10/23 16:45 12/15/23 08:00 1,000 ML Metoclopramide HCl 5 mg Q6HPRN PRN IV 12/13/23 21:45 Levothyroxine Sodium 112 mcg QAM@0600 PO 12/15/23 06:00 12/20/23 05:11 112 MCG Diagnostic Test (Pha) 1 strip Q6HR 12/14/23 18:00 12/20/23 12:39 1 STRIP Insulin Human Regular Q6HR SC 12/14/23 18:00 12/20/23 12:30 8 UNITS Dextrose 50 ml UD PRN IV 12/14/23 18:00 Metoprolol Tartrate 25 mg BID PO 12/16/23 22:00 12/20/23 10:54 25 MG Lorazepam 1 mg Q4H PRN IV 12/17/23 00:15 Purified Water 250 ml Q6HR GT 12/17/23 12:00 12/20/23 12:36 250 ML Enteral Nutritional Formula 1,000 ml 30ML/HR GT 12/18/23 19:30 Dextrose 1,000 ml @ 75 mls/hr [id number] IV 12/20/23 13:45 12/20/23 16:09 75 MLS/HR Potassium Chloride 100 ml @ 50 mls/hr Q2H IV 12/20/23 13:45 12/20/23 17:44 Losartan Potassium 50 mg DAILY PO 12/21/23 10:00 Examination Physical Examination: General: Patient not sedated but not fully responding, on trach collar at FIO2 30% sat 97% HEENT: Normocephalic, atraumatic, moist mucous membranes, light gag reflex but present. Respiratory/pulmonary: Bilateral lung sounds grossly clear, no crackles or wheezes at this time. Cardiovascular: Irregular heart sounds S1 and S2 with no associated murmurs. monitor reviewed and was showing PVCs. Abdomen: Abdomen nondistended, there is no pain to palpation in any of the abdominal quadrants, no palpable masses. PEG tube on place with no signs in infection at this time. Extremities: There is no bilateral pleural effusions at this time. Peripheral Pulses: 3+ Radial (R). 3+ Radial (L). 3+ Dorsalis pedis (R). 3+ Dorsalis pedis(L) Skin: No rashes or pruritus, there is no sacral edema present at this time. Neurological: bilateral pupils reactive to light, Patient understands simple questions and tries to answer moving her head. Not actively moving extremities at this time. Cranial nerves not able to be evaluated at this time. laboratory and microbiology Laboratory Tests 12/20/23 04:54 Test 12/20/23 04:54 Range/Units Serum Glucose 192 H 74-106 mg/dL Microbiology Date/Time Source Procedure Growth Status 12/14/23 19:42 Voided Urine Urine Culture - Final Complete 12/09/23 09:28 Blood Blood Culture - Final NO GROWTH AFTER 5 DAYS OF INCUBATION. Complete 12/08/23 19:00 Nose MRSA Screen - Final Complete 12/08/23 19:00 Sputum Gram Stain - Final Complete 12/08/23 19:00 Sputum Respiratory Culture - Final Complete Problem List/Assessment/Plan Problem List/Assessment/Plan Assessment/Plan Neurology Acute metabolic encephalopathy likely in the setting of sepsis versus brain occupying lesions (metastasis/infection/stroke) -patient has a previous MRI at this facility showing no conclusive diagnosis, At [facility] did not got any conclusive diagnosis as well. -failed extubation at [place] -CT scan of the head performed at this visit show hypodensities in bilateral cerebellum with no acute intracranial abnormalities. -MRI with contrast of the brain should be performed to clarify etiology of brain occupying lesions. Study was hold today due to YULIANA, we will wait for renal function recovery, meanwhile we will try to decrease sedation and assess neurologic response clinically. -Will order MRI of the brain with contrast Brain lessions on MRI w/o contrast, unknown etiology -we will perform brain MRI with contrast once kidney function recovers. -lab workup performed at [place] was negative for blastomycosis, tuberculosis, cryptococcosis Sedation -OFF sedation Not on vasopressors at this time. Cardiology Acute on chronic diastolic heart failure (HFpEF 55%) -Stop furosemide to 20 mg IV QD -Both echocardiograms TTE YOLANDA were performed showing no vegetations or cardiac valve abn. Ruled out endocarditis -YOLANDA performed on 12/10/2023 showed normal cardiac valves with no vegetations at that time. Primary hypertension -Start losartan 50mg QD -Continue metoprolol 25mg PO BID Respiratory S/P tracheostomy performed today in the morning (12/13/23) -Patient currently on trach collar sat 97% on FIO2 30% Acute hypoxic respiratory failure likely in the setting of aspiration pneumonia -Continue IV Unasyn -on tarach collar as described above -CT of the chest/abdomen and pelvis showed no acute findings in the abdominal pelvics but showed multifocal airspace disease and cardiomegaly -chest x-ray performed today showed stable pulmonary congestion right lower lobe infiltration can not be excluded -Will come out of sedation, evaluate mental response clinically and eventually try CPAP trial. Sepsis in the setting of aspiration pneumonia -continue IV antibiotics as described above Infectious disease Sepsis likely due to aspiration pneumonia and UTI -continue IV antibiotics as stated above UTI UA suggestive of UTI but last urine culture showed no growth -Ordered new U/A came back suggesting UTI -Urine culture came back negative Possible brain abscess/infectious occupying lesions -currently on IV Unasyn Endocrinology Type 2 diabetes mellitus, DKA on previous admissions -Continue on sliding scale insulin -Not on Lantus at this time Diabetic polyneuropathy -Patient sedated, monitor Hypothyroidism -Last TSH was 17.87 -today, ordered free T4 and T3 which came back 0.48 and 0.79 respectively -Continue levothyroxine 112mcgQAM Gastroenterology Acute transaminitis, resolved -AST 25, ALT 24 -Continue monitoring Cholelithiasis w/o cholecystitis -CT abdomen showed cholelithiasis w/o findings suggestive of cholecystitis Hematology Superficial thrombophlebitis of right cephalic and basilic veins -no need for anticoagulation DVT of the left brachial vein -continue on enoxaparin 70mg q.12 Nephrology YULIANA likely due to VMN -today, creatinine is 1.0 and BUN 11 -Monitor kidney function Nutrition -EN at 30cc/hr Lines: Midline of right upper arm placed on 12/08/2023 PICC line on left upper arm placed on 12/09/2023 Goals of care discussed with blank [place] via at bedside for > 20min regarding goals of care and treatment plan. discussed the MRI of the brain which will be performed. Critical time spent> 62min Plan discussed with Dr. Razo Plan discussed with: Daughter Dietary Evaluation Review Comments: 1) If GI is accessible consider Glucerna 1.2 @ 55 ml/hr goal rate as tolerated 2) If pt remains NPO >7 days consider TPN to meet at least 75% of estimated needs 3) Advance pt diet when medically feasible to a CCHO 45g/Cardiac diet modified per MANAGER BEHAVIOR recommendations 4) Continue current plan of care Expected Outcomes/Goals: 1) Pt to receive nutrition support within 7 days of NPO status 2) Pt diet to advance 3) F/U in 2-3 days Date of Service: Dec 20, 2023 Billing Provider: FREEDOM RAZO MD Common Visit Codes: 93381-[id number] CARE 30-74 MIN DANELLE MEDNIETA RESIDENT Dec 20, 2023 17:14 FREEDOM RAZO MD Dec 21, 2023 15:01
[2023-12-20] MEDS: Vital AF 1.2 Cal 1 liter bottle GT SCH (21:40)
--- NOTE | 2023-12-20 23:25 | DVHPN2 ---
Consult Progress Note Date Seen: Dec 20, 2023 Subjective Patient reports: Feels better (elevated temps 99.9) Objective vital signs Vital Sign Date Time Temp Pulse Resp B/P (MAP) Pulse Ox O2 Delivery O2 Flow Rate FiO2 12/20/23 22:29 88 26 100 12/20/23 22:00 99.9 136/63 (87) 211.8 12/20/23 20:00 Trach Collar 7 30 30 Total Intake and Output 12/19/23 12/19/23 12/20/23 15:00 23:00 07:00 Intake Total 172 ml 860 ml Output Total 1300 ml 550 ml Balance -1128 ml 310 ml medications Current Medications Medications Dose Ordered Sig/Leslie Route Start Time Stop Time Status Last Admin Dose Admin Albuterol 2.5 mg Q4HR PRN NEB 12/08/23 19:30 12/20/23 22:21 2.5 MG Ipratropium [place] 0.5 mg Q4HR NEB 12/08/23 22:00 12/20/23 22:21 0.5 MG Ondansetron HCl 4 mg Q4HP PRN IV 12/08/23 19:30 Pantoprazole Sodium 40 mg DAILY IV 12/09/23 10:00 12/20/23 10:53 40 MG Hydralazine HCl 10 mg Q4HP PRN IV 12/09/23 05:30 12/20/23 06:07 10 MG Sodium Chloride 10 ml QSHIFT@10,22 IV 12/09/23 22:00 12/20/23 21:39 10 ML Enoxaparin Sodium 70 mg Q12HR SC 12/09/23 22:00 12/20/23 21:39 70 MG Acetaminophen 650 mg Q6HP PRN [place] 12/10/23 01:30 12/13/23 06:51 650 MG Enteral Nutritional Formula 1,000 ml 30ML/HR GT 12/10/23 16:45 12/15/23 08:00 1,000 ML Metoclopramide HCl 5 mg Q6HPRN PRN IV 12/13/23 21:45 Levothyroxine Sodium 112 mcg QAM@0600 PO 12/15/23 06:00 12/20/23 05:11 112 MCG Diagnostic Test (Pha) 1 strip Q6HR 12/14/23 18:00 12/20/23 17:57 1 STRIP Insulin Human Regular Q6HR SC 12/14/23 18:00 12/20/23 17:56 6 UNITS Dextrose 50 ml UD PRN IV 12/14/23 18:00 Metoprolol Tartrate 25 mg BID PO 12/16/23 22:00 12/20/23 21:41 25 MG Lorazepam 1 mg Q4H PRN IV 12/17/23 00:15 Purified Water 250 ml Q6HR GT 12/17/23 12:00 12/20/23 17:55 250 ML Enteral Nutritional Formula 1,000 ml 30ML/HR GT 12/18/23 19:30 12/20/23 21:40 1,000 ML Dextrose 1,000 ml @ 75 mls/hr [id number] IV 12/20/23 13:45 12/20/23 16:09 75 MLS/HR Losartan Potassium 50 mg DAILY PO 12/21/23 10:00 PHYSICAL EXAM: - GENERAL: Alert and oriented x 3. No acute distress. Well-nourished. - EYES: EOMI. Anicteric. - HENT: Moist mucous membranes. No scleral icterus. No cervical lymphadenopathy. - LUNGS: Clear to auscultation bilaterally. No accessory muscle use. - CARDIOVASCULAR: Regular rate and rhythm. No murmur. No JVD. - ABDOMEN: Soft, non-tender and non-distended. No palpable masses - EXTREMITIES: No edema. Non-tender.?SKIN: No rashes or lesions. Warm. - NEUROLOGIC: No focal neurological deficits. CN II-XII grossly intact, but not individually tested - PSYCHIATRIC: Cooperative. Appropriate mood and affect. laboratory and microbiology Laboratory Tests 12/20/23 04:54 Test 12/20/23 04:54 Range/Units Serum Glucose 192 H 74-106 mg/dL Problem List/Assessment/Plan Problem List/Assessment/Plan Assessment/Plan Problems(with codes): (1) Hospital-acquired pneumonia (2) COPD (chronic obstructive pulmonary disease) (3) DKA (diabetic ketoacidosis) (4) HTN (hypertension) (5) Closed right hip fracture Plan/Recommendation ASSESSMENT AND PLAN: ID Problem List: - Aspiration pneumonia - Acute respiratory failure - Diabetic Ketoacidosis (DKA) - Sepsis due to UTI vs pneumonia - Acute Kidney Injury (YULIANA) - Hypernatremia - Transaminitis - Fatty liver - Uncontrolled diabetes (A1C of 11.7) - Hypothyroidism - Hypertension - COPD without exacerbation - Chronic kidney disease (CKD) Assessment: This is a 68-year-old female with a past medical history of diabetes, hypertension, recurrent DKA, hypothyroidism, obesity, COPD, neuropathies, mechanical falls, liver cirrhosis, and multiple joint replacements. The patient presented to the ED with acute loss of consciousness on 11/15/2023, subsequently diagnosed with DKA and an upper GI bleed. While at [facility], a CT and MRI of the head showed concerning lesions for metastasis vs. infectious process and gallbladder issues. Due to renal failure, these images were performed without contrast. An ERCP at [facility] showed no gallstones or common bile duct obstruction. Currently, the patient is reintubated on minimal sedation and receiving broad-spectrum antibiotics for presumed meningitis and other infections. 12/09: Patient has had a repeat abdomen, pelvis, chest Ct with contrast which shows no acute findings in the abdomen and pelvis. multifocal airspace in the lungs was shown. 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 12/12: sp trach 12/13: off sedation 12/19: trach 7l,elevated temps Plan: - sp 3 week vancomycin and ceftriaxone course, will monitor patient off all antibiotics - Blood cultures monitoring. - Monitor respiratory status and adjust ventilator settings as necessary. - Monitor and manage blood glucose levels. - Supportive care as needed. Isolation Precautions: Standard Total critical care time: Approximately 60 minutes Due to a high probability of clinically significant, life threatening deterioration, the patient required my highest level of preparedness to intervene emergently and I personally spent this critical care time directly and personally managing the patient. This critical care time included obtaining a history; examining the patient; pulse oximetry; ordering and review of studies; arranging urgent treatment with development of a management plan; evaluation of patient's response to treatment; frequent reassessment; and, discussions with other providers. This critical care time was performed to assess and manage the high probability of imminent, life-threatening deterioration that could result in multi-organ failure. It was exclusive of separately billable procedures and treating other patients and teaching time. Assessment and plan was discussed with the patient as written above. Plan is subject to change pending incorporation of new incoming information/diagnostics. Updates may be added as addendum at the bottom (OR TOP) of this note. Thank you for interesting consult. ID will continue to follow. Please contact Infectious disease for any questions or concerns. Nithin Carrasco M.D. [facility] Ph: ? Plan discussed with: Patient Dietary Evaluation Review Comments: 1) If GI is accessible consider Glucerna 1.2 @ 55 ml/hr goal rate as tolerated 2) If pt remains NPO >7 days consider TPN to meet at least 75% of estimated needs 3) Advance pt diet when medically feasible to a CCHO 45g/Cardiac diet modified per PRECISION CROP MANAGER recommendations 4) Continue current plan of care Expected Outcomes/Goals: 1) Pt to receive nutrition support within 7 days of NPO status 2) Pt diet to advance 3) F/U in 2-3 days NITHIN CARRASCO MD Dec 20, 2023 23:25
--- NOTE | 2023-12-20 23:57 | DVH ---
CLINICAL HISTORY: r/o DVT upper extremity swelling TECHNIQUE: Color and duplex doppler imaging of the bilateral upper extremity veins and subclavian vei n was performed. Vessel compression if possible was also performed. WID: COMPARISON: US BI LAT UPPER DVT on DOS: 12/09/23, FINDINGS: The right internal jugular vein is not visualized. The right cephalic vein is noncompressible and without flow with mixed echogenicity thrombus . The ri ght basilic vein demonstrates partial compression . The left cephalic vein at the forearm is not compressible with mixed echogenicity thrombus. The left internal jugular, axillary, left basilic, right cephalic, ulnar and radial and paired brachi al veins are patent and demonstrate normal compressibility and flow. The subclavian veins bilaterally are patent. Cutaneous edema in the left upper extremity. IMPRESSION: 1. NO SONOGRAPHIC EVIDENCE FOR DEEP VENOUS THROMBOSIS IN THE BILATERAL UPPER EXTREMITY VEINS. 2. Acute to subacute occlusive thrombus in the right cephalic vein and the left cephalic vein at the mid forearm. 3. Partial compression of the right upper extremity basilic vein. 4. Right internal jugular vein is not visualized.
[2023-12-21] VITALS (39 sets, daily range): BP systolic 128–173; BP diastolic 52–81; PULSE 66–97; RESP 10–27; TEMP 99.1–99.7; O2SAT 92–100
[2023-12-21 05:24] LABS: Basophils # (auto) 0.1 10 ^3/uL (0-0.2); Eosinophils # (auto) 0.7 10 ^3/uL (0-0.8); Eosinophils % (auto) 10.2 % (0.0-7.0); Hematocrit 27.9 % (36.0-46.0); Lymphocytes # (auto) 1.9 10 ^3/uL (0.4-5.4); Lymphocytes % (auto) 29.3 % (10.0-50.0); Mean Corpuscular Hemoglobin 28.6 pg (28.0-32.0); Mean Corpuscular Hgb Conc. 32.3 g/dL (32.0-36.0); Mean Corpuscular Volume 88.5 fL (80.0-100.0); Monocytes # (auto) 0.4 10 ^3/uL (0-1.3); Monocytes % (auto) 6.7 % (0.0-12.0); Neutrophils # (auto) 3.5 10 ^3/uL (1.6-8.6); Neutrophils % (auto) 52.8 % (37.0-80.0); Platelet Count (auto) 390 10^3/uL (140-450); Red Blood Cells 3.16 10^6/uL (4.0-5.20); Red Cell Distribution Width 16.6 % (11.8-14.3); White Blood Cell 6.6 10^3/uL (4.4-10.8)
[2023-12-21 05:40] LABS: Alanine Aminotransferase 16 U/L (7-40); Albumin 3.2 g/dL (3.2-4.8); Alkaline Phosphatase 148 U/L (46-116); Anion Gap 7 (5-15); Aspartate Aminotransferase 20 U/L (13-40); BUN/Creatinine Ratio 10.5 (10.0-20.0); Bilirubin, Total 0.2 mg/dL (0.2-1.0); Blood Urea Nitrogen 10 mg/dL (9-23); Calcium 9.5 mg/dL (8.7-10.4); Carbon Dioxide 28 mmol/L (20-31); Chloride 108 mmol/L (98-107); Glucose 329 mg/dL (74-106); Potassium 3.3 mmol/L (3.5-5.1); Sodium 143 mmol/L (136-145); Total Protein 6.1 g/dL (5.7-8.2)
[2023-12-21] MEDS: LOSARTAN POTASSIUM 25 MG TAB PO SCH (11:11)
--- NOTE | 2023-12-21 11:55 | DVHPN2 ---
Progress Note - Dictate Date Seen: Dec 21, 2023 Has the PT tested + for MRSA If YES, has PT been informed?: No Medical Necessity Reason Pt with a Central, PICC or Fol: Yes The following are medically ne: PICC Line, Carr Catheter Reason for carr catheter: Strict I&O vital signs Vital Sign Date Time Temp Pulse Resp B/P (MAP) Pulse Ox O2 Delivery O2 Flow Rate FiO2 12/21/23 11:11 150/52 12/21/23 11:11 87 12/21/23 09:33 24 96 12/21/23 09:27 Trach Collar 8.0 12/21/23 09:27 N/A 12/21/23 07:59 99.3 210.7 Total Intake and Output 12/20/23 12/20/23 12/21/23 15:00 23:00 07:00 Intake Total 300 ml 1385 ml 1298 ml Output Total 1700 ml 500 ml Balance 300 ml -315 ml 798 ml medications Current Medications Medications Dose Ordered Sig/Leslie Route Start Time Stop Time Status Last Admin Dose Admin Albuterol 2.5 mg Q4HR PRN NEB 12/08/23 19:30 12/21/23 09:27 2.5 MG Ipratropium [place] 0.5 mg Q4HR NEB 12/08/23 22:00 12/21/23 09:27 0.5 MG Ondansetron HCl 4 mg Q4HP PRN IV 12/08/23 19:30 Pantoprazole Sodium 40 mg DAILY IV 12/09/23 10:00 12/21/23 11:10 40 MG Hydralazine HCl 10 mg Q4HP PRN IV 12/09/23 05:30 12/21/23 00:11 10 MG Sodium Chloride 10 ml QSHIFT@10,22 IV 12/09/23 22:00 12/21/23 11:10 10 ML Acetaminophen 650 mg Q6HP PRN [place] 12/10/23 01:30 12/13/23 06:51 650 MG Metoclopramide HCl 5 mg Q6HPRN PRN IV 12/13/23 21:45 Levothyroxine Sodium 112 mcg QAM@0600 PO 12/15/23 06:00 12/21/23 06:37 112 MCG Diagnostic Test (Pha) 1 strip Q6HR 12/14/23 18:00 12/21/23 06:00 1 STRIP Insulin Human Regular Q6HR SC 12/14/23 18:00 12/21/23 06:40 6 UNITS Dextrose 50 ml UD PRN IV 12/14/23 18:00 Metoprolol Tartrate 25 mg BID PO 12/16/23 22:00 12/21/23 11:11 25 MG Lorazepam 1 mg Q4H PRN IV 12/17/23 00:15 Enteral Nutritional Formula 1,000 ml 30ML/HR GT 12/18/23 19:30 12/20/23 21:40 1,000 ML Losartan Potassium 50 mg DAILY PO 12/21/23 10:00 12/21/23 11:11 50 MG objective gen: nad lungs: cta cvs: no rub ext; + edema laboratory and microbiology Laboratory Tests 12/21/23 04:46 Test 12/21/23 04:46 Range/Units Serum Glucose 329 H 74-106 mg/dL Assessment/Plan YULIANA resolved previous vanco tox and ATN Acute respiratory failure, intubated on ventilator GI Bleed DM II Hypernatremia Hypo kalemia Replace potassium daily Acute kidney injury has resolved defer electrolyte management to primary team. I will sign off the case Dietary Evaluation Review Comments: 1) If GI is accessible consider Glucerna 1.2 @ 55 ml/hr goal rate as tolerated 2) If pt remains NPO >7 days consider TPN to meet at least 75% of estimated needs 3) Advance pt diet when medically feasible to a CCHO 45g/Cardiac diet modified per POUL[employer] SUPERVISOR recommendations 4) Continue current plan of care Expected Outcomes/Goals: 1) Pt to receive nutrition support within 7 days of NPO status 2) Pt diet to advance 3) F/U in 2-3 days Plan discussed with: Patient AUGUSTIN BUSTOS MD Dec 21, 2023 11:55
[2023-12-21] MEDS: POTASSIUM CHL 20MEQ/100ML 100 ML IV ONE (13:17)
--- NOTE | 2023-12-21 17:09 | DVHPNRES ---
Progress Note Date Seen: Dec 21, 2023 Resident Creating Document: DANELLE MENDIETA RESIDENT Has the PT tested + for MRSA If YES, has PT been informed?: No Medical Necessity Reason Pt with a Central, PICC or Fol: Yes The following are medically ne: PICC Line, Carr Catheter Reason for carr catheter: Strict I&O Subjective Review of Systems This is a 68-year-old female with past medical history of hypertension, diabetes mellitus type 2, hypothyroidism, COPD, obesity, diabetic polyneuropathy, liver cirrhosis, right knee replacement, multiple admissions for DKA. The patient was initially seen at [facility] on 11/16/2023 where he was intubated and transferred to our facility. At our facility he was treated for DKA and was found to have space occupying lesions in the brain (metastasis/infection/stroke) MRI of the head was done with no conclusive findings at that time. CT scan of the abdomen and pelvis at that time showed dilation of common bile duct and GI recommended ERCP/endoscopic ultrasound so patient was transferred on 11/26/2023 to [facility]. ERCP and ultrasound was performed showing no obstruction either malignancy or stone at that time. Neurosurgery at [facility] evaluated MRI results and stated that could be due to infarcts. Neurologist was against lumbar puncture due to increased risk of herniation. patient was extubated on November 28, 2023 and was transferred step-down unit with 2 L of nasal cannula but lately on December 02 patient became shortness of breath tachypneic required reintubation. The patient had sepsis of unknown etiology and they thought it might be related to the brain lesions so patient was started on broad-spectrum IV antibiotics with MRSA coverage. Patient was readmitted back at [facility]. Patient seen and examined at bedside. Patient is off sedation and off vasopressors at this time. The patient understands most of the conversations and moves her head to answer simple questions. Patient is unable to follow Carr commands or move bilateral upper and lower extremities. We will do swallow evaluation and increased free cecal therapy to increase muscle strengthening and try to downgrade size of the trach. Losartan was increased to 50 mg q.d., metoprolol tartrate 25 mg b.i.d. we will continue current medical management. MRI of the brain with contrast was canceled since we do not have the specific image that we need to determine etiology of a pt lesions. Patient needs a MRI spectography of the brain. ROS unable to obtain since the patient does not communicates verbally. Objective vital signs Vital Sign Date Time Temp Pulse Resp B/P (MAP) Pulse Ox O2 Delivery O2 Flow Rate FiO2 12/21/23 16:00 82 12/21/23 16:00 99.7 19 128/77 (94) 95 211.5 12/21/23 13:43 Trach Collar 8.0 12/21/23 13:43 N/A Total Intake and Output 12/20/23 12/20/23 12/21/23 15:00 23:00 07:00 Intake Total 300 ml 1385 ml 1373 ml Output Total 1700 ml 500 ml Balance 300 ml -315 ml 873 ml medications Current Medications Medications Dose Ordered Sig/Leslie Route Start Time Stop Time Status Last Admin Dose Admin Albuterol 2.5 mg Q4HR PRN NEB 12/08/23 19:30 12/21/23 13:43 2.5 MG Ipratropium [place] 0.5 mg Q4HR NEB 12/08/23 22:00 12/21/23 13:43 0.5 MG Ondansetron HCl 4 mg Q4HP PRN IV 12/08/23 19:30 Pantoprazole Sodium 40 mg DAILY IV 12/09/23 10:00 12/21/23 11:10 40 MG Hydralazine HCl 10 mg Q4HP PRN IV 12/09/23 05:30 12/21/23 13:19 10 MG Sodium Chloride 10 ml QSHIFT@10,22 IV 12/09/23 22:00 12/21/23 11:10 10 ML Acetaminophen 650 mg Q6HP PRN HI 12/10/23 01:30 12/13/23 06:51 650 MG Metoclopramide HCl 5 mg Q6HPRN PRN IV 12/13/23 21:45 Levothyroxine Sodium 112 mcg QAM@0600 PO 12/15/23 06:00 12/21/23 06:37 112 MCG Diagnostic Test (Pha) 1 strip Q6HR 12/14/23 18:00 12/21/23 12:00 1 STRIP Insulin Human Regular Q6HR SC 12/14/23 18:00 12/21/23 13:19 3 UNITS Dextrose 50 ml UD PRN IV 12/14/23 18:00 Metoprolol Tartrate 25 mg BID PO 12/16/23 22:00 12/21/23 11:11 25 MG Lorazepam 1 mg Q4H PRN IV 12/17/23 00:15 Enteral Nutritional Formula 1,000 ml 30ML/HR GT 12/18/23 19:30 12/20/23 21:40 1,000 ML Losartan Potassium 50 mg DAILY PO 12/21/23 10:00 12/21/23 11:11 50 MG Examination Physical Examination: General: Patient not sedated but not fully responding, on trach collar at FIO2 30% sat 97% HEENT: Normocephalic, atraumatic, moist mucous membranes, light gag reflex but present. Respiratory/pulmonary: Bilateral lung sounds grossly clear, no crackles or wheezes at this time. Cardiovascular: irregular heart sounds S1 and S2 with no associated murmurs. monitor reviewed and was showing PVCs. Abdomen: Abdomen nondistended, there is no pain to palpation in any of the abdominal quadrants, no palpable masses. PEG tube on place with no signs in infection at this time. Extremities: There is no bilateral pleural effusions at this time. Peripheral Pulses: 3+ Radial (R). 3+ Radial (L). 3+ Dorsalis pedis (R). 3+ Dorsalis pedis(L) Skin: No rashes or pruritus, there is no sacral edema present at this time. Neurological: bilateral pupils reactive to light, Patient understands simple questions and tries to answer moving her head. Not actively moving extremities at this time. Cranial nerves not able to be evaluated at this time. laboratory and microbiology Laboratory Tests 12/21/23 04:46 Test 12/21/23 04:46 Range/Units Serum Glucose 329 H 74-106 mg/dL Microbiology Date/Time Source Procedure Growth Status 12/14/23 19:42 Voided Urine Urine Culture - Final Complete 12/09/23 09:28 Blood Blood Culture - Final NO GROWTH AFTER 5 DAYS OF INCUBATION. Complete 12/08/23 19:00 Nose MRSA Screen - Final Complete 12/08/23 19:00 Sputum Gram Stain - Final Complete 12/08/23 19:00 Sputum Respiratory Culture - Final Complete Problem List/Assessment/Plan Problem List/Assessment/Plan Assessment/Plan Neurology Acute metabolic encephalopathy likely in the setting of sepsis versus brain occupying lesions (metastasis/infection/stroke) -patient has a previous MRI at this facility showing no conclusive diagnosis, At [facility] did not got any conclusive diagnosis as well. -failed extubation at [facility] -CT scan of the head performed at this visit show hypodensities in bilateral cerebellum with no acute intracranial abnormalities. -MRI with contrast of the brain should be performed to clarify etiology of brain occupying lesions. Study was hold today due to YULIANA, we will wait for renal function recovery, meanwhile we will try to decrease sedation and assess neurologic response clinically. -Will order MRI of the brain with contrast Brain lessions on MRI w/o contrast, unknown etiology -we will perform brain MRI with contrast once kidney function recovers. -lab workup performed at [facility] was negative for blastomycosis, tuberculosis, cryptococcosis Sedation -OFF sedation Not on vasopressors at this time. Cardiology Acute on chronic diastolic heart failure (HFpEF 55%) -Stop furosemide to 20 mg IV QD -Both echocardiograms TTE YOLANDA were performed showing no vegetations or cardiac valve abn. Ruled out endocarditis -YOLANDA performed on 12/10/2023 showed normal cardiac valves with no vegetations at that time. Primary hypertension -Start losartan 50mg QD -Continue metoprolol 25mg PO BID Respiratory S/P tracheostomy performed today in the morning (12/13/23) -Patient currently on trach collar sat 97% on FIO2 30% Acute hypoxic respiratory failure likely in the setting of aspiration pneumonia -Continue IV Unasyn -on tarach collar as described above -CT of the chest/abdomen and pelvis showed no acute findings in the abdominal pelvics but showed multifocal airspace disease and cardiomegaly -chest x-ray performed today showed stable pulmonary congestion right lower lobe infiltration can not be excluded -Ordered swallow evaluation -Ordered physical therapy Sepsis in the setting of aspiration pneumonia -continue IV antibiotics as described above Infectious disease Sepsis likely due to aspiration pneumonia and UTI -continue IV antibiotics as stated above UTI UA suggestive of UTI but last urine culture showed no growth -Ordered new U/A came back suggesting UTI -Urine culture came back negative Possible brain abscess/infectious occupying lesions -currently on IV Unasyn Endocrinology Type 2 diabetes mellitus, DKA on previous admissions -Continue on sliding scale insulin -Not on Lantus at this time Diabetic polyneuropathy -Patient sedated, monitor Hypothyroidism -Last TSH was 17.87 -today, ordered free T4 and T3 which came back 0.48 and 0.79 respectively -Continue levothyroxine 112mcgQAM Gastroenterology Acute transaminitis, resolved -AST 20, ALT 16 -Continue monitoring Cholelithiasis w/o cholecystitis -CT abdomen showed cholelithiasis w/o findings suggestive of cholecystitis Hematology Superficial thrombophlebitis of right cephalic and basilic veins -no need for anticoagulation DVT of the left brachial vein -continue on enoxaparin 70mg q.12 Nephrology YULIANA likely due to VMN -today, creatinine is 0.95 and BUN 10 -Monitor kidney function Nutrition -EN at 30cc/hr Lines: Midline of right upper arm placed on 12/08/2023 PICC line on left upper arm placed on 12/09/2023 Goals of care discussed with medical team for >23min Critical time spent> 61min Plan discussed with Dr. Razo Plan discussed with: Patient, Other My Orders My Orders Orders - DANELLE MENDIETA Procedure Category Date Status Time Pt Request For Service PT 12/20/23 Logged 16:44 Bi Lat Upper Dvt US 12/20/23 Resulted 22:32 Dietary Evaluation Review Comments: 1) If GI is accessible consider Glucerna 1.2 @ 55 ml/hr goal rate as tolerated 2) If pt remains NPO >7 days consider TPN to meet at least 75% of estimated needs 3) Advance pt diet when medically feasible to a CCHO 45g/Cardiac diet modified per ENVIRONMENTAL PROGRAMS SPECIALIST recommendations 4) Continue current plan of care Expected Outcomes/Goals: 1) Pt to receive nutrition support within 7 days of NPO status 2) Pt diet to advance 3) F/U in 2-3 days Date of Service: Dec 21, 2023 Billing Provider: FREEDOM RAZO MD Common Visit Codes: [id number] CARE 30-74 MIN DANELLE MENDIETA Dec 21, 2023 17:09 FREEDOM RAZO MD Dec 22, 2023 11:27
--- NOTE | 2023-12-21 19:17 | DVHPN2 ---
Progress Note - Dictate Date Seen: Dec 21, 2023 Has the PT tested + for MRSA If YES, has PT been informed?: No Medical Necessity Reason Pt with a Central, PICC or Fol: Yes The following are medically ne: PICC Line, Carr Catheter Reason for carr catheter: Strict I&O Subjective Mr. Sanderson is a 68 years old female with a history of hypertension, diabetes, hypothyroidism, COPD, obesity, diabetic polyneuropathy, arthritis, liver cirrhosis, she was transferred back from the [facility] on 12/08/2023 after ERCP. I have seen examined the patient, I have talked to her nurse, pulling, awake, More reactive with her surroundings, she moves extremities more, but the left arm than leg look weaker than the right side [facility] Neurosurgery consultation: The lesions likely represents infarct, recommend Re attempting MRI spectrography for further evaluation Neuro consultation: Lumbar puncture was not recommended concerning possibility of herniation EEG, 11/28/2023: No seizure/nonconvulsive status epileptics (I did not see report) TTE, 11/29/23: EF: 70-75% (I did not see report) MRI brain (no report): signal abnormality in bilateral cerebellum and right occipital lobe, punctate foci in right parietal lobe and central semiovale- unable to differentiate subacute ischemia 2/2 MR effects versus infection versus metastasis. Recommend contrast enhanced MRI MRI, 12/05/23: No evidence of demyelinating disease (I did not see report) MRI orbital, face, neck ww 12/05/2023, comparison: MR brain 11/28/2023: No evidence of mucormycosis infection. Multiple irregularly enhancing cerebellar and right occipital lesions were better evaluated on recent brain MRI MRI C-spine, 12/05/2023: No evidence of demyelinating disease in the cervical spine. Moderate degenerative changes. Grade 1 anterolisthesis of C7 on T1 MRI lumbar spine wwo, 12/05/2023: No evidence of demyelinating disease in the lumbar spine. Degenerative changes and grade 1 anterolisthesis of L4 and L5. Mild central spinal stenosis at L4-5. Ygud-oz-[id number] multilevel bilateral foraminal stenosis as described above MRI spectroscopy 12/05/2023: Cerebellar lesion showing moderately elevated Cho, reduced ZINA, large lipid peaks, and additional tics suspicious for amino acids and alanine. The alanine and amino acids are suspicious for an infectious process Treatment according to discharge note: ASA 81mg Qd, Lipitor 20 mg daily Urinalysis, 12/08/2023: WBC: 93, urine leukocyte esterase: 3+ ABG, 12/09/2023: Metabolic acidosis WBC/HB/PLT/MCV, 12/09/2023: 8.5/7.4/350/92.4 PT/INR/PTT, 12/08/2023: 11.4/1.08 Na, 12/08/2023: 147, 12/09/2023: 146, 12/19/2019 4:148 HCO3, 12/08/2023: 23, 12/10/2023: 22, 11/2123: 19, 12/13/23: 18, 12/16/2023: 15, 12/19/2023: 17 CPK, 12/18/2023: 54 TBI/AST/ALT/AP, 12/09/2023: 0.2/40/21/278 TG/HDL/LDL/HDL, 11/2023: 136/96/38/32 Vitamin B12, 11/2023: 2537 TSH, 11/2023: 17.87 YOLANDA, 12/10/2023: n the study done today no evidence of vegetation or masses were discernible. There is mild mitral valve regurgitation with mild anterior leaflet prolapse. No significant intracardiac lesion was discernible Echocardiogram, 11/18/2023: Normal left ventricular size and dimension. Normal left ventricular systolic function estimated ejection fraction 55%. There is a grade 1 diastolic dysfunction. Normal right ventricular size and dimension. Normal right ventricular systolic function. Mildly increased right ventricular systolic pressure 34 mm of mercury. Normal biatrial size and dimension. Normal aortic valve structure and function. Normal mitral valve structure and function. Normal tricuspid valve structure and function. The pulmonary valve is grossly normal. No pericardial effusion. Carotid Doppler, 11/21/2023: 1. No evidence of hemodynamically significant stenosis within the left carotid arterial system. 2. Antegrade flow within the left vertebral artery. 3. Cannot assess the right carotid arterial system due to central line artifact and overlying bandage. Extremity venous study, 12/09/2023: Thrombus in the LEFT cephalic and brachial vein. Thrombus in the RIGHT cephalic and basilic vein.If clinical concern/symptoms persist or worsen, short-interval follow-up study is suggested. Chest x-ray, 12/08/2023: 1. Endotracheal and gastric tubes in place as described. Satisfactory position. 2. Removal of right PICC and right IJ central venous catheter since prior. 3. Mild cardiomegaly and pulmonary vascular congestion. 4. Small opacity in the lateral right lung base which could reflect atelectasis or pneumonia MRI head, 11/21/2023: Signal abnormality in the bilateral cerebellum and right occipital lobe, as well as punctate foci in the right parietal lobe and centrum semiovale. Findings could represent regions of subacute ischemia due to embolic infarcts; however, underlying metastases or infection are not excluded. Recommend contrast-enhanced MRI vital signs Vital Sign Date Time Temp Pulse Resp B/P (MAP) Pulse Ox O2 Delivery O2 Flow Rate FiO2 12/21/23 18:32 91 22 97 12/21/23 18:21 Trach Collar 8 30 12/21/23 18:00 99.5 138/72 (94) 211.1 Total Intake and Output 12/20/23 12/20/23 12/21/23 15:00 23:00 07:00 Intake Total 300 ml 1385 ml 1373 ml Output Total 1700 ml 500 ml Balance 300 ml -315 ml 873 ml medications Current Medications Medications Dose Ordered Sig/Leslie Route Start Time Stop Time Status Last Admin Dose Admin Albuterol 2.5 mg Q4HR PRN NEB 12/08/23 19:30 12/21/23 18:21 2.5 MG Ipratropium [place] 0.5 mg Q4HR NEB 12/08/23 22:00 12/21/23 18:21 0.5 MG Ondansetron HCl 4 mg Q4HP PRN IV 12/08/23 19:30 Pantoprazole Sodium 40 mg DAILY IV 12/09/23 10:00 12/21/23 11:10 40 MG Hydralazine HCl 10 mg Q4HP PRN IV 12/09/23 05:30 12/21/23 13:19 10 MG Sodium Chloride 10 ml QSHIFT@, IV 12/09/23 22:00 12/21/23 11:10 10 ML Acetaminophen 650 mg Q6HP PRN TX 12/10/23 01:30 12/13/23 06:51 650 MG Metoclopramide HCl 5 mg Q6HPRN PRN IV 12/13/23 21:45 Levothyroxine Sodium 112 mcg QAM@0600 PO 12/15/23 06:00 12/21/23 06:37 112 MCG Diagnostic Test (Pha) 1 strip Q6HR 12/14/23 18:00 12/21/23 18:26 1 STRIP Insulin Human Regular Q6HR SC 12/14/23 18:00 12/21/23 18:26 6 UNITS Dextrose 50 ml UD PRN IV 12/14/23 18:00 Metoprolol Tartrate 25 mg BID PO 12/16/23 22:00 12/21/23 11:11 25 MG Lorazepam 1 mg Q4H PRN IV 12/17/23 00:15 Enteral Nutritional Formula 1,000 ml 30ML/HR GT 12/18/23 19:30 12/20/23 21:40 1,000 ML Losartan Potassium 50 mg DAILY PO 12/21/23 10:00 12/21/23 11:11 50 MG objective The patient is well-nourished and well-developed with no distress. Status post tracheostomy and feeding tube insertion MENTAL STATUS: Subjective CRANIAL NERVES: Pupils are equal, round and reactive, small. There are c onjugated eye movements. No signs of facial weakness. There are no gagging or coughing reflexes during oral care SENSATION: Responses to pain stimuli. MOTOR: Normal tone in the upper and lower extremity. Normal muscle bulk. No fasciculations. She moves The arms and legs, the left-sided is weaker REFLEXES: Deep tendon reflexes are symmetrical. No pathological reflexes. CEREBELLAR/COORDINATION: Deferred GAIT/STATION: deferred. laboratory and microbiology Laboratory Tests 12/21/23 04:46 Test 12/21/23 04:46 Range/Units Serum Glucose 329 H 74-106 mg/dL Problem List Abnormal MRI brain scan, likely the patient has multiple stroke Coma Metabolic encephalopathy Hypoxic encephalopathy Multiple strokes Ketoacidosis ICU myopathy Bilateral upper extremity deep venous thrombosis Rule out subacute endocarditis Status post tracheostomy Status post PEG tube Assessment/Plan Monitoring Supportive treatment ROB care Respiratory support Stabilize vitals IV antibiotics Lovenox 1 mg/kg subcutaneous b.i.d. Lipitor 20 mg daily Tube feeding Cardiology on case Infectious disease on case More recommendation per clinical course This medical document was created using an electronic medical record system with [employer] dictation system. Although this document has been carefully reviewed, there may still be some phonetic and typographical errors. These areas are purely typographical due to imperfections of the software programs, and do not reflect any compromise in the patient's medical care. Prognosis poor Dietary Evaluation Review Comments: 1) If GI is accessible consider Glucerna 1.2 @ 55 ml/hr goal rate as tolerated 2) If pt remains NPO >7 days consider TPN to meet at least 75% of estimated needs 3) Advance pt diet when medically feasible to a CCHO 45g/Cardiac diet modified per IMAGING MANAGER recommendations 4) Continue current plan of care Expected Outcomes/Goals: 1) Pt to receive nutrition support within 7 days of NPO status 2) Pt diet to advance 3) F/U in 2-3 days Plan discussed with: Other DREW FAGAN MD Dec 21, 2023 19:17
--- NOTE | 2023-12-21 23:27 | DVHPN2 ---
Consult Progress Note Date Seen: Dec 21, 2023 Subjective Patient reports: Feels better (cxr clear, breathing stable) Objective vital signs Vital Sign Date Time Temp Pulse Resp B/P (MAP) Pulse Ox O2 Delivery O2 Flow Rate FiO2 12/21/23 22:18 92 21 100 12/21/23 22:00 99.3 173/75 (107) 210.7 12/21/23 20:00 Trach Collar 7 30 30 Total Intake and Output 12/20/23 12/20/23 12/21/23 14:59 22:59 06:59 Intake Total 300 ml 1310 ml 1373 ml Output Total 1700 ml 500 ml Balance 300 ml -390 ml 873 ml medications Current Medications Medications Dose Ordered Sig/Leslie Route Start Time Stop Time Status Last Admin Dose Admin Albuterol 2.5 mg Q4HR PRN NEB 12/08/23 19:30 12/21/23 22:09 2.5 MG Ipratropium [place] 0.5 mg Q4HR NEB 12/08/23 22:00 12/21/23 22:09 0.5 MG Ondansetron HCl 4 mg Q4HP PRN IV 12/08/23 19:30 Pantoprazole Sodium 40 mg DAILY IV 12/09/23 10:00 12/21/23 11:10 40 MG Hydralazine HCl 10 mg Q4HP PRN IV 12/09/23 05:30 12/21/23 13:19 10 MG Sodium Chloride 10 ml QSHIFT@10,22 IV 12/09/23 22:00 12/21/23 21:52 10 ML Acetaminophen 650 mg Q6HP PRN MS 12/10/23 01:30 12/13/23 06:51 650 MG Metoclopramide HCl 5 mg Q6HPRN PRN IV 12/13/23 21:45 Levothyroxine Sodium 112 mcg QAM@0600 PO 12/15/23 06:00 12/21/23 06:37 112 MCG Diagnostic Test (Pha) 1 strip Q6HR 12/14/23 18:00 12/21/23 18:26 1 STRIP Insulin Human Regular Q6HR SC 12/14/23 18:00 12/21/23 18:26 6 UNITS Dextrose 50 ml UD PRN IV 12/14/23 18:00 Metoprolol Tartrate 25 mg BID PO 12/16/23 22:00 10/1/24 21:52 25 MG Lorazepam 1 mg Q4H PRN IV 12/17/23 00:15 Enteral Nutritional Formula 1,000 ml 30ML/HR GT 12/18/23 19:30 12/20/23 21:40 1,000 ML Losartan Potassium 50 mg DAILY PO 12/21/23 10:00 12/21/23 11:11 50 MG PHYSICAL EXAM: - GENERAL: Alert and oriented x 3. No acute distress. Well-nourished. trached on - EYES: EOMI. Anicteric. - HENT: Moist mucous membranes. No scleral icterus. No cervical lymphadenopathy. - LUNGS: Clear to auscultation bilaterally. No accessory muscle use. - CARDIOVASCULAR: Regular rate and rhythm. No murmur. No JVD. - ABDOMEN: Soft, non-tender and non-distended. No palpable masses. - EXTREMITIES: No edema. Non-tender.?SKIN: No rashes or lesions. Warm. - NEUROLOGIC: No focal neurological deficits. CN II-XII grossly intact, but not individually tested. - PSYCHIATRIC: Cooperative. Appropriate mood and affect. laboratory and microbiology Laboratory Tests 12/21/23 04:46 Test 12/21/23 04:46 Range/Units Serum Glucose 329 H 74-106 mg/dL Problem List/Assessment/Plan Problem List/Assessment/Plan Assessment/Plan Problems(with codes): (1) Hospital-acquired pneumonia (2) COPD (chronic obstructive pulmonary disease) (3) DKA (diabetic ketoacidosis) (4) HTN (hypertension) (5) Closed right hip fracture Plan/Recommendation ASSESSMENT AND PLAN: ID Problem List: - Aspiration pneumonia - Acute respiratory failure - Diabetic Ketoacidosis (DKA) - Sepsis due to UTI vs pneumonia - Acute Kidney Injury (YULIANA) - Hypernatremia - Transaminitis - Fatty liver - Uncontrolled diabetes (A1C of 11.7) - Hypothyroidism - Hypertension - COPD without exacerbation - Chronic kidney disease (CKD) Assessment: This is a 68-year-old female with a past medical history of diabetes, hypertension, recurrent DKA, hypothyroidism, obesity, COPD, neuropathies, mechanical falls, liver cirrhosis, and multiple joint replacements. The patient presented to the ED with acute loss of consciousness on 11/15/2023, subsequently diagnosed with DKA and an upper GI bleed. While at [facility], a CT and MRI of the head showed concerning lesions for metastasis vs. infectious process and gallbladder issues. Due to renal failure, these images were performed without contrast. An ERCP at [facility] showed no gallstones or common bile duct obstruction. Currently, the patient is reintubated on minimal sedation and receiving broad-spectrum antibiotics for presumed meningitis and other infections. 12/09: Patient has had a repeat abdomen, pelvis, chest Ct with contrast which shows no acute findings in the abdomen and pelvis. multifocal airspace in the lungs was shown. 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 12/12: sp trach 12/13: off sedation 12/19: trach 7l,elevated temps Plan: - sp 3 week vancomycin and ceftriaxone course, will monitor patient off all antibiotics - Blood cultures monitoring. - Monitor respiratory status and adjust ventilator settings as necessary. - Monitor and manage blood glucose levels. - Supportive care as needed. Isolation Precautions: Standard Total critical care time: Approximately 59 minutes Due to a high probability of clinically significant, life threatening deterioration, the patient required my highest level of preparedness to intervene emergently and I personally spent this critical care time directly and personally managing the patient. This critical care time included obtaining a history; examining the patient; pulse oximetry; ordering and review of studies; arranging urgent treatment with development of a management plan; evaluation of patient's response to treatment; frequent reassessment; and, discussions with other providers. This critical care time was performed to assess and manage the high probability of imminent, life-threatening deterioration that could result in multi-organ failure. It was exclusive of separately billable procedures and treating other patients and teaching time. Assessment and plan was discussed with the patient as written above. Plan is subject to change pending incorporation of new incoming information/diagnostics. Updates may be added as addendum at the bottom (OR TOP) of this note. Thank you for interesting consult. ID will continue to follow. Please contact Infectious disease for any questions or concerns. Nithin Carrasco M.D. [facility] Ph: ? Plan discussed with: Patient Dietary Evaluation Review Comments: 1) If GI is accessible consider Glucerna 1.2 @ 55 ml/hr goal rate as tolerated 2) If pt remains NPO >7 days consider TPN to meet at least 75% of estimated needs 3) Advance pt diet when medically feasible to a CCHO 45g/Cardiac diet modified per [employer] IN[employer]CTOR recommendations 4) Continue current plan of care Expected Outcomes/Goals: 1) Pt to receive nutrition support within 7 days of NPO status 2) Pt diet to advance 3) F/U in 2-3 days NITHIN CARRASCO MD Dec 21, 2023 23:27
[2023-12-22] VITALS (68 sets, daily range): BP systolic 133–177; BP diastolic 45–83; PULSE 72–102; RESP 10–31; TEMP 97.4–99.7; O2SAT 92–100
[2023-12-22 05:03] LABS: Basophils # (auto) 0.1 10 ^3/uL (0-0.2); Basophils % (auto) 1.4 % (0.0-2.0); Eosinophils # (auto) 0.8 10 ^3/uL (0-0.8); Hematocrit 28.7 % (36.0-46.0); Hemoglobin 9.3 g/dL (12.2-16.2); Lymphocytes # (auto) 2.1 10 ^3/uL (0.4-5.4); Lymphocytes % (auto) 34.8 % (10.0-50.0); Mean Corpuscular Hemoglobin 28.4 pg (28.0-32.0); Mean Corpuscular Hgb Conc. 32.5 g/dL (32.0-36.0); Mean Corpuscular Volume 87.6 fL (80.0-100.0); Monocytes # (auto) 0.4 10 ^3/uL (0-1.3); Monocytes % (auto) 5.8 % (0.0-12.0); Neutrophils # (auto) 2.8 10 ^3/uL (1.6-8.6); Nucleated Red Blood Cells % 0.1 %; Platelet Count (auto) 399 10^3/uL (140-450); Red Blood Cells 3.28 10^6/uL (4.0-5.20); Red Cell Distribution Width 16.4 % (11.8-14.3); White Blood Cell 6.2 10^3/uL (4.4-10.8)
[2023-12-22 05:17] LABS: Calcium 9.5 mg/dL (8.7-10.4); Chloride 108 mmol/L (98-107); Potassium 3.3 mmol/L (3.5-5.1); Sodium 144 mmol/L (136-145)
[2023-12-22 05:18] LABS: Anion Gap 8 (5-15); Carbon Dioxide 28 mmol/L (20-31)
--- NOTE | 2023-12-22 05:19 | DVH ---
CHEST RADIOGRAPH Indication:reevaluate Technique: Single frontal view of the chest was obtained Comparison: XY CHEST XRAY 1 VIEW on DOS: 12/20/23 FINDINGS: Lines and Tubes: Tracheostomy tube is unchanged. Left PICC terminates in the superior vena cava. Lungs: Mild congestion. No focal consolidation. Pleura: No effusion. No pneumothorax. Cardiomediastinal contours: Stable. Bones: No acute osseous abnormality. IMPRESSION: 1. No acute cardiopulmonary disease.
[2023-12-22 05:23] LABS: Blood Urea Nitrogen 9 mg/dL (9-23); Glucose 209 mg/dL (74-106)
[2023-12-22 05:24] LABS: Magnesium 1.7 mg/dL (1.6-2.6)
[2023-12-22] MEDS: POTASSIUM CHL 20MEQ/100ML 100 ML IV ONE (06:56)
[2023-12-22] MEDS: MAGNESIUM SULFATE 1GM/100ML 100 ML IV SCH (06:56)
[2023-12-22 08:16] LABS: Base Excess 3.4 mmol/L (-2.0-3.0)
--- NOTE | 2023-12-22 10:04 | DVHPNRES ---
Progress Note Date Seen: Dec 22, 2023 Resident Creating Document: DANELLE MENDIETA RESIDENT Has the PT tested + for MRSA If YES, has PT been informed?: No Medical Necessity Reason Pt with a Central, PICC or Fol: Yes The following are medically ne: PICC Line, Carr Catheter Reason for carr catheter: Strict I&O Subjective Review of Systems This is a 68-year-old female with past medical history of hypertension, diabetes mellitus type 2, hypothyroidism, COPD, obesity, diabetic polyneuropathy, liver cirrhosis, right knee replacement, multiple admissions for DKA. The patient was initially seen at [facility] on 11/16/2023 where he was intubated and transferred to our facility. At our facility he was treated for DKA and was found to have space occupying lesions in the brain (metastasis/infection/stroke) MRI of the head was done with no conclusive findings at that time. CT scan of the abdomen and pelvis at that time showed dilation of common bile duct and GI recommended ERCP/endoscopic ultrasound so patient was transferred on 11/26/2023 to [place]. ERCP and ultrasound was performed showing no obstruction either malignancy or stone at that time. Neurosurgery at [place] evaluated MRI results and stated that could be due to infarcts. Neurologist was against lumbar puncture due to increased risk of herniation. patient was extubated on November 28, 2023 and was transferred step-down unit with 2 L of nasal cannula but lately on December 02 patient became shortness of breath tachypneic required reintubation. The patient had sepsis of unknown etiology and they thought it might be related to the brain lesions so patient was started on broad-spectrum IV antibiotics with MRSA coverage. Patient was readmitted back at [facility]. Patient seen and examined at bedside. Patient is currently off sedation and vasopressors at this time. Patient still awake responding to simple questions and following simple commands but not able to move upper or lower extremities. ABG was performed this morning showing a pH of 7.69, pCO2 of 18.4, HC03 22, PaO2 51.2 the patient was on 6 L and FiO2 of 28% was increased to 8 L and an FiO2 of 30%. Patient is still on trach collar breathing by her own. Patient is having secretions and coarse sounds on bilateral lungs. We will start the patient on acetylcysteine and percussion therapy. We will discontinue midline. Patient needs to continue working with physical therapy aggressively. ROS unable to obtain due to patient being nonverbal. Objective vital signs Vital Sign Date Time Temp Pulse Resp B/P (MAP) Pulse Ox O2 Delivery O2 Flow Rate FiO2 12/22/23 09:44 153/75 12/22/23 09:43 91 12/22/23 09:00 99.7 23 95 211.5 12/22/23 08:00 Trach Collar 7 30 30 Total Intake and Output 12/21/23 12/21/23 12/22/23 15:00 23:00 07:00 Intake Total 200 ml 235 ml 360 ml Output Total 400 ml 700 ml Balance 200 ml -165 ml -340 ml medications Current Medications Medications Dose Ordered Sig/Leslie Route Start Time Stop Time Status Last Admin Dose Admin Albuterol 2.5 mg Q4HR PRN NEB 12/08/23 19:30 12/22/23 06:32 2.5 MG Ipratropium [place] 0.5 mg Q4HR NEB 12/08/23 22:00 12/22/23 06:32 0.5 MG Ondansetron HCl 4 mg Q4HP PRN IV 12/08/23 19:30 Pantoprazole Sodium 40 mg DAILY IV 12/09/23 10:00 12/22/23 09:43 40 MG Hydralazine HCl 10 mg Q4HP PRN IV 12/09/23 05:30 12/22/23 03:11 10 MG Sodium Chloride 10 ml QSHIFT@10,22 IV 12/09/23 22:00 12/22/23 09:44 10 ML Acetaminophen 650 mg Q6HP PRN PA 12/10/23 01:30 12/13/23 06:51 650 MG Metoclopramide HCl 5 mg Q6HPRN PRN IV 12/13/23 21:45 Levothyroxine Sodium 112 mcg QAM@0600 PO 12/15/23 06:00 12/22/23 05:40 112 MCG Diagnostic Test (Pha) 1 strip Q6HR 12/14/23 18:00 12/22/23 05:57 1 STRIP Insulin Human Regular Q6HR SC 12/14/23 18:00 12/22/23 05:57 6 UNITS Dextrose 50 ml UD PRN IV 12/14/23 18:00 Metoprolol Tartrate 25 mg BID PO 12/16/23 22:00 12/22/23 09:43 25 MG Lorazepam 1 mg Q4H PRN IV 12/17/23 00:15 Enteral Nutritional Formula 1,000 ml 30ML/HR GT 12/18/23 19:30 12/20/23 21:40 1,000 ML Losartan Potassium 50 mg DAILY PO 12/21/23 10:00 12/22/23 09:44 50 MG Examination Physical Examination: General: Patient not sedated but not fully responding, on trach collar at 8L of O2, FIO2 30% sat 97% HEENT: Normocephalic, atraumatic, moist mucous membranes, light gag reflex but present. Respiratory/pulmonary: Bilateral lungs with coarse sounds due to secretions. no crackles or wheezes at this time. Cardiovascular: irregular heart sounds S1 and S2 with no associated murmurs. monitor reviewed and was showing PVCs. Abdomen: Abdomen nondistended, there is no pain to palpation in any of the abdominal quadrants, no palpable masses. PEG tube on place with no signs in infection at this time. Extremities: There is no bilateral pleural effusions at this time. Peripheral Pulses: 3+ Radial (R). 3+ Radial (L). 3+ Dorsalis pedis (R). 3+ Dorsalis pedis(L) Skin: No rashes or pruritus, there is no sacral edema present at this time. Neurological: bilateral pupils reactive to light, Patient understands simple questions and tries to answer moving her head. Not actively moving extremities at this time. Cranial nerves not able to be evaluated at this time. laboratory and microbiology Laboratory Tests 12/22/23 04:31 Test 12/22/23 04:31 Range/Units Serum Glucose 209 H 74-106 mg/dL Microbiology Date/Time Source Procedure Growth Status 12/14/23 19:42 Voided Urine Urine Culture - Final Complete 12/09/23 09:28 Blood Blood Culture - Final NO GROWTH AFTER 5 DAYS OF INCUBATION. Complete 12/08/23 19:00 Nose MRSA Screen - Final Complete 12/08/23 19:00 Sputum Gram Stain - Final Complete 12/08/23 19:00 Sputum Respiratory Culture - Final Complete Problem List/Assessment/Plan Problem List/Assessment/Plan Assessment/Plan Neurology Acute metabolic encephalopathy likely in the setting of sepsis versus brain occupying lesions (metastasis/infection/stroke) -patient has a previous MRI at this facility showing no conclusive diagnosis, At [facility] did not got any conclusive diagnosis as well. -failed extubation at [place] -CT scan of the head performed at this visit show hypodensities in bilateral cerebellum with no acute intracranial abnormalities. -MRI with contrast of the brain should be performed to clarify etiology of brain occupying lesions. Study was hold today due to YULIANA, we will wait for renal function recovery, meanwhile we will try to decrease sedation and assess neurologic response clinically. -Will order MRI of the brain with contrast (cancel it since neurology recommended MRI SPECT tomography of the brain which could not be performed at this facility) Brain lessions on MRI w/o contrast, unknown etiology -we will perform brain MRI with contrast once kidney function recovers. -lab workup performed at [place] was negative for blastomycosis, tuberculosis, cryptococcosis Sedation -OFF sedation Not on vasopressors at this time. Cardiology Acute on chronic diastolic heart failure (HFpEF 55%) -Stop furosemide to 20 mg IV QD -Both echocardiograms TTE YOLANDA were performed showing no vegetations or cardiac valve abn. Ruled out endocarditis -YOLANDA performed on 12/10/2023 showed normal cardiac valves with no vegetations at that time. Primary hypertension -Continue losartan 50mg QD -Continue metoprolol 25mg PO BID Respiratory S/P tracheostomy performed today in the morning (12/13/23) -Patient currently on trach collar sat 97% on FIO2 30% Acute hypoxic respiratory failure likely in the setting of aspiration pneumonia -Continue IV Unasyn -on tarach collar as described above -CT of the chest/abdomen and pelvis showed no acute findings in the abdominal pelvics but showed multifocal airspace disease and cardiomegaly -chest x-ray performed today showed stable pulmonary congestion right lower lobe infiltration can not be excluded -Ordered swallow evaluation -Ordered physical therapy Sepsis in the setting of aspiration pneumonia -continue IV antibiotics as described above Infectious disease Sepsis likely due to aspiration pneumonia and UTI -continue IV antibiotics as stated above UTI UA suggestive of UTI but last urine culture showed no growth -Ordered new U/A came back suggesting UTI -Urine culture came back negative Possible brain abscess/infectious occupying lesions -currently on IV Unasyn Endocrinology Type 2 diabetes mellitus, DKA on previous admissions -Continue on sliding scale insulin -Not on Lantus at this time Diabetic polyneuropathy -Patient sedated, monitor Hypothyroidism -Last TSH was 17.87 -today, ordered free T4 and T3 which came back 0.48 and 0.79 respectively -Continue levothyroxine 112mcgQAM Gastroenterology Acute transaminitis, resolved -AST 20, ALT 16 -Continue monitoring Cholelithiasis w/o cholecystitis -CT abdomen showed cholelithiasis w/o findings suggestive of cholecystitis Hematology Superficial thrombophlebitis of right cephalic and basilic veins -no need for anticoagulation DVT of the left brachial vein -continue on enoxaparin 70mg q.12 Nephrology YULIANA likely due to VMN -today, creatinine is 0.82 and BUN 9 -Monitor kidney function Nutrition -EN at 30cc/hr Lines: Midline of right upper arm placed on 12/08/2023 (WILL REMOVE MIDLINE) PICC line on left upper arm placed on 12/09/2023 Goals of care discussed with medical team for >23min Critical time spent> 58 min Plan discussed with Dr. Razo Plan discussed with: Other My Orders My Orders Orders - DANELLE MENDIETA Procedure Category Date Status Time * Swallow Request ST 12/21/23 Transmitted 17:03 Pt Request For Service PT 12/21/23 Logged 17:03 Respiratory Culture KULWANT 12/21/23 In Process W/ Gs 18:06 Chest Xray 1 View XY 12/22/23 Resulted 04:00 Abg W/ Co-Ox RT 12/22/23 Logged 04:00 Dietary Evaluation Review Comments: 1) If GI is accessible consider Glucerna 1.2 @ 55 ml/hr goal rate as tolerated 2) If pt remains NPO >7 days consider TPN to meet at least 75% of estimated needs 3) Advance pt diet when medically feasible to a CCHO 45g/Cardiac diet modified per H[employer] WORKER recommendations 4) Continue current plan of care Expected Outcomes/Goals: 1) Pt to receive nutrition support within 7 days of NPO status 2) Pt diet to advance 3) F/U in 2-3 days Date of Service: Dec 22, 2023 Billing Provider: FREEDOM RAZO MD Common Visit Codes: [id number] CARE 30-74 MIN DANELLE MENDIETA Dec 22, 2023 10:04 FREEDOM RAZO MD Dec 23, 2023 11:33
--- NOTE | 2023-12-22 10:28 | DVHPN2 ---
Progress Note - Dictate Date Seen: Dec 22, 2023 Has the PT tested + for MRSA If YES, has PT been informed?: No Medical Necessity Reason Pt with a Central, PICC or Fol: Yes The following are medically ne: PICC Line, Carr Catheter Reason for carr catheter: Strict I&O Subjective Mr. Sanderson is a 68 years old female with a history of hypertension, diabetes, hypothyroidism, COPD, obesity, diabetic polyneuropathy, arthritis, liver cirrhosis, she was transferred back from the [facility] on 12/08/2023 after ERCP. I have seen examined the patient, I have talked to her nurse, pulling, awake, she moves extremities, the left arm looks weaker ? Bilateral upgoing toes LLU Neurosurgery consultation: The lesions likely represents infarct, recommend Re attempting MRI spectrography for further evaluation Neuro consultation: Lumbar puncture was not recommended concerning possibility of herniation EEG, 11/28/2023: No seizure/nonconvulsive status epileptics (I did not see report) TTE, 11/29/23: EF: 70-75% (I did not see report) MRI brain (no report): signal abnormality in bilateral cerebellum and right occipital lobe, punctate foci in right parietal lobe and central semiovale- unable to differentiate subacute ischemia 2/2 MR effects versus infection versus metastasis. Recommend contrast enhanced MRI MRI, 12/05/23: No evidence of demyelinating disease (I did not see report) MRI orbital, face, neck ww 12/05/2023, comparison: MR brain 11/28/2023: No evidence of mucormycosis infection. Multiple irregularly enhancing cerebellar and right occipital lesions were better evaluated on recent brain MRI MRI C-spine, 12/05/2023: No evidence of demyelinating disease in the cervical spine. Moderate degenerative changes. Grade 1 anterolisthesis of C7 on T1 MRI lumbar spine wwo, 12/05/2023: No evidence of demyelinating disease in the lumbar spine. Degenerative changes and grade 1 anterolisthesis of L4 and L5. Mild central spinal stenosis at L4-5. Epad-yg-sujjxgcy multilevel bilateral foraminal stenosis as described above MRI spectroscopy 12/05/2023: Cerebellar lesion showing moderately elevated Cho, reduced ZINA, large lipid peaks, and additional tics suspicious for amino acids and alanine. The alanine and amino acids are suspicious for an infectious process Treatment according to discharge note: ASA 81mg Qd, Lipitor 20 mg daily Urinalysis, 12/08/2023: WBC: 93, urine leukocyte esterase: 3+ ABG, 12/09/2023: Metabolic acidosis WBC/HB/PLT/MCV, 12/09/2023: 8.5/7.4/350/92.4 PT/INR/PTT, 12/08/2023: 11.4/1.08 Na, 12/08/2023: 147, 12/09/2023: 146, 12/19/2019 4:148 HCO3, 12/08/2023: 23, 12/10/2023: 22, 11/2123: 19, 12/13/23: 18, 12/16/2023: 15, 12/19/2023: 17 CPK, 12/18/2023: 54 TBI/AST/ALT/AP, 12/09/2023: 0.2/40/21/278 TG/HDL/LDL/HDL, 11/2023: 136/96/38/32 Vitamin B12, 11/2023: 2537 TSH, 11/2023: 17.87 YOLANDA, 12/10/2023: n the study done today no evidence of vegetation or masses were discernible. There is mild mitral valve regurgitation with mild anterior leaflet prolapse. No significant intracardiac lesion was discernible Echocardiogram, 11/18/2023: Normal left ventricular size and dimension. Normal left ventricular systolic function estimated ejection fraction 55%. There is a grade 1 diastolic dysfunction. Normal right ventricular size and dimension. Normal right ventricular systolic function. Mildly increased right ventricular systolic pressure 34 mm of mercury. Normal biatrial size and dimension. Normal aortic valve structure and function. Normal mitral valve structure and function. Normal tricuspid valve structure and function. The pulmonary valve is grossly normal. No pericardial effusion. Carotid Doppler, 11/21/2023: 1. No evidence of hemodynamically significant stenosis within the left carotid arterial system. 2. Antegrade flow within the left vertebral artery. 3. Cannot assess the right carotid arterial system due to central line artifact and overlying bandage. Extremity venous study, 12/09/2023: Thrombus in the LEFT cephalic and brachial vein. Thrombus in the RIGHT cephalic and basilic vein.If clinical concern/symptoms persist or worsen, short-interval follow-up study is suggested. Chest x-ray, 12/08/2023: 1. Endotracheal and gastric tubes in place as described. Satisfactory position. 2. Removal of right PICC and right IJ central venous catheter since prior. 3. Mild cardiomegaly and pulmonary vascular congestion. 4. Small opacity in the lateral right lung base which could reflect atelectasis or pneumonia MRI head, 11/21/2023: Signal abnormality in the bilateral cerebellum and right occipital lobe, as well as punctate foci in the right parietal lobe and centrum semiovale. Findings could represent regions of subacute ischemia due to embolic infarcts; however, underlying metastases or infection are not excluded. Recommend contrast-enhanced MRI vital signs Vital Sign Date Time Temp Pulse Resp B/P (MAP) Pulse Ox O2 Delivery O2 Flow Rate FiO2 12/22/23 09:44 153/75 12/22/23 09:43 91 12/22/23 09:00 99.7 23 95 211.5 12/22/23 08:00 Trach Collar 7 30 30 Total Intake and Output 12/21/23 12/21/23 12/22/23 15:00 23:00 07:00 Intake Total 200 ml 235 ml 360 ml Output Total 400 ml 700 ml Balance 200 ml -165 ml -340 ml medications Current Medications Medications Dose Ordered Sig/Leslie Route Start Time Stop Time Status Last Admin Dose Admin Albuterol 2.5 mg Q4HR PRN NEB 12/08/23 19:30 12/22/23 10:17 2.5 MG Ipratropium [place] 0.5 mg Q4HR NEB 12/08/23 22:00 12/22/23 10:17 0.5 MG Ondansetron HCl 4 mg Q4HP PRN IV 12/08/23 19:30 Pantoprazole Sodium 40 mg DAILY IV 12/09/23 10:00 12/22/23 09:43 40 MG Hydralazine HCl 10 mg Q4HP PRN IV 12/09/23 05:30 12/22/23 03:11 10 MG Sodium Chloride 10 ml QSHIFT@10,22 IV 12/09/23 22:00 12/22/23 09:44 10 ML Acetaminophen 650 mg Q6HP PRN [place] 12/10/23 01:30 12/13/23 06:51 650 MG Metoclopramide HCl 5 mg Q6HPRN PRN IV 12/13/23 21:45 Levothyroxine Sodium 112 mcg QAM@0600 PO 12/15/23 06:00 12/22/23 05:40 112 MCG Diagnostic Test (Pha) 1 strip Q6HR 12/14/23 18:00 12/22/23 05:57 1 STRIP Insulin Human Regular Q6HR SC 12/14/23 18:00 12/22/23 05:57 6 UNITS Dextrose 50 ml UD PRN IV 12/14/23 18:00 Metoprolol Tartrate 25 mg BID PO 12/16/23 22:00 12/22/23 09:43 25 MG Lorazepam 1 mg Q4H PRN IV 12/17/23 00:15 Enteral Nutritional Formula 1,000 ml 30ML/HR GT 12/18/23 19:30 12/20/23 21:40 1,000 ML Losartan Potassium 50 mg DAILY PO 12/21/23 10:00 12/22/23 09:44 50 MG Acetylcysteine 200 mg Q6HR NEB 12/22/23 12:00 UNV objective The patient is well-nourished and well-developed with no distress. Status post tracheostomy and feeding tube insertion MENTAL STATUS: Subjective CRANIAL NERVES: Pupils are equal, round and reactive, small. There are c onjugated eye movements. No signs of facial weakness. There are no gagging or coughing reflexes during oral care SENSATION: Responses to pain stimuli. MOTOR: Normal tone in the upper and lower extremity. Normal muscle bulk. No fasciculations. She moves The arms and legs, the left-sided is weaker REFLEXES: Deep tendon reflexes are symmetrical. ? Bilateral upgoing toes CEREBELLAR/COORDINATION: Deferred GAIT/STATION: deferred. laboratory and microbiology Laboratory Tests 12/22/23 04:31 Test 12/22/23 04:31 Range/Units Serum Glucose 209 H 74-106 mg/dL Problem List Abnormal MRI brain scan, likely the patient has multiple stroke Coma Metabolic encephalopathy Hypoxic encephalopathy Multiple strokes Ketoacidosis ICU myopathy Bilateral upper extremity deep venous thrombosis Rule out subacute endocarditis Status post tracheostomy Status post PEG tube Assessment/Plan Monitoring Supportive treatment ROB care Respiratory support Stabilize vitals IV antibiotics Lovenox 1 mg/kg subcutaneous b.i.d. Lipitor 20 mg daily Tube feeding Cardiology on case Infectious disease on case More recommendation per clinical course This medical document was created using an electronic medical record system with Dragon computerized dictation system. Although this document has been carefully reviewed, there may still be some phonetic and typographical errors. These areas are purely typographical due to imperfections of the software programs, and do not reflect any compromise in the patient's medical care. Prognosis poor Dietary Evaluation Review Comments: 1) If GI is accessible consider Glucerna 1.2 @ 55 ml/hr goal rate as tolerated 2) If pt remains NPO >7 days consider TPN to meet at least 75% of estimated needs 3) Advance pt diet when medically feasible to a CCHO 45g/Cardiac diet modified per [employer] recommendations 4) Continue current plan of care Expected Outcomes/Goals: 1) Pt to receive nutrition support within 7 days of NPO status 2) Pt diet to advance 3) F/U in 2-3 days Plan discussed with: Other DREW FAGAN MD Dec 22, 2023 10:28
[2023-12-22] MEDS: ACETYLCYSTEINE 20%(200MG/ML) SOL 4ML NEB SCH ×2 (13:50→22:39)
[2023-12-22 13:56] LABS: Potassium 3.3 mmol/L (3.5-5.1)
[2023-12-22 14:07] LABS: Magnesium 2.3 mg/dL (1.6-2.6)
[2023-12-22] MEDS: HYDROcodone-ACET 10/325MG TAB PO PRN (16:07)
[2023-12-22] MEDS: POTASSIUM CHL 20MEQ/100ML 100 ML IV SCH (16:13)
[2023-12-22 20:32] LABS: Free T3 1.35 pg/mL (2.3-4.2); Free T4 (Free Thyroxine) 0.55 ng/dL (0.89-1.76)
--- NOTE | 2023-12-22 23:34 | DVHPN2 ---
Consult Progress Note Date Seen: Dec 22, 2023 Subjective Patient reports: Feels better (occasional signs of aspiration) Objective vital signs Vital Sign Date Time Temp Pulse Resp B/P (MAP) Pulse Ox O2 Delivery O2 Flow Rate FiO2 12/22/23 23:17 76 142/58 12/22/23 20:00 18 97 Trach Collar 7 28 28 12/22/23 16:36 98.8 98.8 Total Intake and Output 12/21/23 12/21/23 12/22/23 15:00 23:00 07:00 Intake Total 200 ml 235 ml 360 ml Output Total 400 ml 700 ml Balance 200 ml -165 ml -340 ml medications Current Medications Medications Dose Ordered Sig/Leslie Route Start Time Stop Time Status Last Admin Dose Admin Albuterol 2.5 mg Q4HR PRN NEB 12/08/23 19:30 12/22/23 22:38 2.5 MG Ipratropium [place] 0.5 mg Q4HR NEB 12/08/23 22:00 12/22/23 22:38 0.5 MG Ondansetron HCl 4 mg Q4HP PRN IV 12/08/23 19:30 Pantoprazole Sodium 40 mg DAILY IV 12/09/23 10:00 12/22/23 09:43 40 MG Hydralazine HCl 10 mg Q4HP PRN IV 12/09/23 05:30 12/22/23 14:05 10 MG Sodium Chloride 10 ml QSHIFT@ IV 12/09/23 22:00 12/22/23 22:17 10 ML Acetaminophen 650 mg Q6HP PRN [place] 12/10/23 01:30 12/13/23 06:51 650 MG Metoclopramide HCl 5 mg Q6HPRN PRN IV 12/13/23 21:45 Levothyroxine Sodium 112 mcg QAM@0600 PO 12/15/23 06:00 12/22/23 05:40 112 MCG Diagnostic Test (Pha) 1 strip Q6HR 12/14/23 18:00 12/22/23 18:25 1 STRIP Insulin Human Regular Q6HR SC 12/14/23 18:00 12/22/23 18:25 6 UNITS Dextrose 50 ml UD PRN IV 12/14/23 18:00 Metoprolol Tartrate 25 mg BID PO 12/16/23 22:00 12/22/23 22:17 25 MG Lorazepam 1 mg Q4H PRN IV 12/17/23 00:15 Enteral Nutritional Formula 1,000 ml 30ML/HR GT 12/18/23 19:30 12/20/23 21:40 1,000 ML Losartan Potassium 50 mg DAILY PO 12/21/23 10:00 12/22/23 09:44 50 MG Acetaminophen/ Hydrocodone Bitart 1 tab Q4HP PRN PO 12/22/23 14:15 12/22/23 23:32 1 TAB Acetylcysteine 200 mg Q8HR NEB 12/22/23 22:00 12/22/23 22:39 200 MG PHYSICAL EXAM: - GENERAL: Alert and oriented x 3. No acute distress. Well-nourished. on trach collar - EYES: EOMI. Anicteric. - HENT: Moist mucous membranes. No scleral icterus. No cervical lymphadenopathy. - LUNGS: Clear to auscultation bilaterally. No accessory muscle use. - CARDIOVASCULAR: Regular rate and rhythm. No murmur. No JVD. - ABDOMEN: Soft, non-tender and non-distended. No palpable masses. - EXTREMITIES: No edema. Non-tender.SKIN: No rashes or lesions. Warm. - NEUROLOGIC: No focal neurological deficits. CN II-XII grossly intact, but not individually tested. - PSYCHIATRIC: Cooperative. Appropriate mood and affect. laboratory and microbiology Laboratory Tests 12/22/23 13:14 12/22/23 04:31 Test 12/22/23 04:31 Range/Units Serum Glucose 209 H 74-106 mg/dL Problem List/Assessment/Plan Problem List/Assessment/Plan Assessment/Plan Problems(with codes): (1) Hospital-acquired pneumonia (2) COPD (chronic obstructive pulmonary disease) (3) DKA (diabetic ketoacidosis) (4) HTN (hypertension) (5) Closed right hip fracture Plan/Recommendation ASSESSMENT AND PLAN: ID Problem List: - Aspiration pneumonia - Acute respiratory failure - Diabetic Ketoacidosis (DKA) - Sepsis due to UTI vs pneumonia - Acute Kidney Injury ([place]ULIANA) - Hypernatremia - Transaminitis - Fatty liver - Uncontrolled diabetes (A1C of 11.7) - Hypothyroidism - Hypertension - COPD without exacerbation - Chronic kidney disease (CKD) Assessment: This is a 68-year-old female with a past medical history of diabetes, hypertension, recurrent DKA, hypothyroidism, obesity, COPD, neuropathies, mechanical falls, liver cirrhosis, and multiple joint replacements. The patient presented to the ED with acute loss of consciousness on 11/15/2023, subsequently diagnosed with DKA and an upper GI bleed. While at [facility], a CT and MRI of the head showed concerning lesions for metastasis vs. infectious process and gallbladder issues. Due to renal failure, these images were performed without contrast. An ERCP at [facility] showed no gallstones or common bile duct obstruction. Currently, the patient is reintubated on minimal sedation and receiving broad-spectrum antibiotics for presumed meningitis and other infections. 12/09: Patient has had a repeat abdomen, pelvis, chest Ct with contrast which shows no acute findings in the abdomen and pelvis. multifocal airspace in the lungs was shown. 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 12/12: sp trach 12/13: off sedation 12/19: trach 7l,elevated temps Plan: - sp 3 week vancomycin and ceftriaxone course, will monitor patient off all antibiotics - aspiration precautions - Blood cultures monitoring. - Monitor respiratory status and adjust ventilator settings as necessary. - Monitor and manage blood glucose levels. - Supportive care as needed. Isolation Precautions: Standard Total critical care time: Approximately 59 minutes Due to a high probability of clinically significant, life threatening deterioration, the patient required my highest level of preparedness to intervene emergently and I personally spent this critical care time directly and personally managing the patient. This critical care time included obtaining a history; examining the patient; pulse oximetry; ordering and review of studies; arranging urgent treatment with development of a management plan; evaluation of patient's response to treatment; frequent reassessment; and, discussions with other providers. This critical care time was performed to assess and manage the high probability of imminent, life-threatening deterioration that could result in multi-organ failure. It was exclusive of separately billable procedures and treating other patients and teaching time. Assessment and plan was discussed with the patient as written above. Plan is subject to change pending incorporation of new incoming information/diagnostics. Updates may be added as addendum at the bottom (OR TOP) of this note. Thank you for interesting consult. ID will continue to follow. Please contact Infectious disease for any questions or concerns. Nithin Carrasco M.D. [facility] Ph: ? Plan discussed with: Patient Dietary Evaluation Review Comments: 1) If GI is accessible consider Glucerna 1.2 @ 55 ml/hr goal rate as tolerated 2) If pt remains NPO >7 days consider TPN to meet at least 75% of estimated needs 3) Advance pt diet when medically feasible to a CCHO 45g/Cardiac diet modified per [employer] recommendations 4) Continue current plan of care Expected Outcomes/Goals: 1) Pt to receive nutrition support within 7 days of NPO status 2) Pt diet to advance 3) F/U in 2-3 days NITHIN CARRASCO MD Dec 22, 2023 23:34
[2023-12-23] VITALS (40 sets, daily range): BP systolic 123–158; BP diastolic 53–68; PULSE 61–89; RESP 13–28; TEMP 97.6–98.7; O2SAT 90–100
[2023-12-23 05:16] LABS: Basophils # (auto) 0.1 10 ^3/uL (0-0.2); Basophils % (auto) 1.2 % (0.0-2.0); Eosinophils # (auto) 0.7 10 ^3/uL (0-0.8); Hematocrit 26.1 % (36.0-46.0); Hemoglobin 8.5 g/dL (12.2-16.2); Lymphocytes % (auto) 36.7 % (10.0-50.0); Mean Corpuscular Hemoglobin 28.7 pg (28.0-32.0); Mean Corpuscular Hgb Conc. 32.6 g/dL (32.0-36.0); Mean Corpuscular Volume 87.9 fL (80.0-100.0); Monocytes # (auto) 0.4 10 ^3/uL (0-1.3); Monocytes % (auto) 6.9 % (0.0-12.0); Neutrophils # (auto) 2.4 10 ^3/uL (1.6-8.6); Neutrophils % (auto) 42.2 % (37.0-80.0); Nucleated Red Blood Cells % 0.1 %; Platelet Count (auto) 383 10^3/uL (140-450); Red Blood Cells 2.96 10^6/uL (4.0-5.20); Red Cell Distribution Width 16.4 % (11.8-14.3); White Blood Cell 5.6 10^3/uL (4.4-10.8)
[2023-12-23 05:24] LABS: Chloride 110 mmol/L (98-107); Sodium 145 mmol/L (136-145)
[2023-12-23 05:25] LABS: Anion Gap 7 (5-15); Calcium 9.2 mg/dL (8.7-10.4); Carbon Dioxide 28 mmol/L (20-31)
[2023-12-23 05:30] LABS: BUN/Creatinine Ratio 13.1 (10.0-20.0); Blood Urea Nitrogen 11 mg/dL (9-23); Glucose 240 mg/dL (74-106); Magnesium 2.1 mg/dL (1.6-2.6)
--- NOTE | 2023-12-23 06:48 | DVH ---
CHEST RADIOGRAPH Indication:reevaluate Technique: Single frontal view of the chest was obtained Comparison: XY CHEST XRAY 1 VIEW on DOS: 12/22/23 FINDINGS: Lines and Tubes: Tracheostomy tube is unchanged. Left PICC terminates in the superior vena cava or az ygous vein. Lungs: Bilateral interstitial prominence. Pleura: No effusion. No pneumothorax. Cardiomediastinal contours: Stable cardiovascular silhouette. Bones: No acute osseous abnormality. IMPRESSION: 1. Interstitial edema. 2. Stable cardiomegaly.
--- NOTE | 2023-12-23 10:16 | DVHPN2 ---
Progress Note - Dictate Date Seen: Dec 23, 2023 Has the PT tested + for MRSA If YES, has PT been informed?: No Medical Necessity Reason Pt with a Central, PICC or Fol: Yes The following are medically ne: PICC Line, Carr Catheter Reason for carr catheter: Strict I&O Subjective Mr. Sanderson is a 68 years old female with a history of hypertension, diabetes, hypothyroidism, COPD, obesity, diabetic polyneuropathy, arthritis, liver cirrhosis, she was transferred back from the [facility] on 12/08/2023 after ERCP. I have seen examined the patient, I have talked to her nurse, she is awake, follows verbal commands a little bit, she moves extremities, no obvious [id number] differences LLU Neurosurgery consultation: The lesions likely represents infarct, recommend Re attempting MRI spectrography for further evaluation Neuro consultation: Lumbar puncture was not recommended concerning possibility of herniation EEG, 11/28/2023: No seizure/nonconvulsive status epileptics (I did not see report) TTE, 11/29/23: EF: 70-75% (I did not see report) MRI brain (no report): signal abnormality in bilateral cerebellum and right occipital lobe, punctate foci in right parietal lobe and central semiovale- unable to differentiate subacute ischemia 2/2 MR effects versus infection versus metastasis. Recommend contrast enhanced MRI MRI, 12/05/23: No evidence of demyelinating disease (I did not see report) MRI orbital, face, neck ww 12/05/2023, comparison: MR brain 11/28/2023: No evidence of mucormycosis infection. Multiple irregularly enhancing cerebellar and right occipital lesions were better evaluated on recent brain MRI MRI C-spine, 12/05/2023: No evidence of demyelinating disease in the cervical spine. Moderate degenerative changes. Grade 1 anterolisthesis of C7 on T1 MRI lumbar spine wwo, 12/05/2023: No evidence of demyelinating disease in the lumbar spine. Degenerative changes and grade 1 anterolisthesis of L4 and L5. Mild central spinal stenosis at L4-5. [id number] multilevel bilateral foraminal stenosis as described above MRI spectroscopy 12/05/2023: Cerebellar lesion showing moderately elevated Cho, reduced ZINA, large lipid peaks, and additional tics suspicious for amino acids and alanine. The alanine and amino acids are suspicious for an infectious process Treatment according to discharge note: ASA 81mg Qd, Lipitor 20 mg daily Urinalysis, 12/08/2023: WBC: 93, urine leukocyte esterase: 3+ ABG, 12/09/2023: Metabolic acidosis WBC/HB/PLT/MCV, 12/09/2023: 8.5/7.4/350/92.4 PT/INR/PTT, 12/08/2023: 11.4/1.08 Na, 12/08/2023: 147, 12/09/2023: 146, 12/19/2019 4:148 HCO3, 12/08/2023: 23, 12/10/2023: 22, 11/2123: 19, 12/13/23: 18, 12/16/2023: 15, 12/19/2023: 17 CPK, 12/18/2023: 54 TBI/AST/ALT/AP, 12/09/2023: 0.2/40/21/278 TG/HDL/LDL/HDL, 11/2023: 136/96/38/32 Vitamin B12, 11/2023: 2537 TSH, 11/2023: 17.87 YOLANDA, 12/10/2023: n the study done today no evidence of vegetation or masses were discernible. There is mild mitral valve regurgitation with mild anterior leaflet prolapse. No significant intracardiac lesion was discernible Echocardiogram, 11/18/2023: Normal left ventricular size and dimension. Normal left ventricular systolic function estimated ejection fraction 55%. There is a grade 1 diastolic dysfunction. Normal right ventricular size and dimension. Normal right ventricular systolic function. Mildly increased right ventricular systolic pressure 34 mm of mercury. Normal biatrial size and dimension. Normal aortic valve structure and function. Normal mitral valve structure and function. Normal tricuspid valve structure and function. The pulmonary valve is grossly normal. No pericardial effusion. Carotid Doppler, 11/21/2023: 1. No evidence of hemodynamically significant stenosis within the left carotid arterial system. 2. Antegrade flow within the left vertebral artery. 3. Cannot assess the right carotid arterial system due to central line artifact and overlying bandage. Extremity venous study, 12/09/2023: Thrombus in the LEFT cephalic and brachial vein. Thrombus in the RIGHT cephalic and basilic vein.If clinical concern/symptoms persist or worsen, short-interval follow-up study is suggested. Chest x-ray, 12/08/2023: 1. Endotracheal and gastric tubes in place as described. Satisfactory position. 2. Removal of right PICC and right IJ central venous catheter since prior. 3. Mild cardiomegaly and pulmonary vascular congestion. 4. Small opacity in the lateral right lung base which could reflect atelectasis or pneumonia MRI head, 11/21/2023: Signal abnormality in the bilateral cerebellum and right occipital lobe, as well as punctate foci in the right parietal lobe and centrum semiovale. Findings could represent regions of subacute ischemia due to embolic infarcts; however, underlying metastases or infection are not excluded. Recommend contrast-enhanced MRI vital signs Vital Sign Date Time Temp Pulse Resp B/P (MAP) Pulse Ox O2 Delivery O2 Flow Rate FiO2 12/23/23 08:48 79 158/64 12/23/23 07:00 17 96 12/23/23 06:34 Trach Collar 6.0 12/23/23 06:34 N/A 12/23/23 04:00 98.5 98.5 Total Intake and Output 12/22/23 12/22/23 12/23/23 15:00 23:00 07:00 Intake Total 346 ml 298 ml Output Total 550 ml 400 ml Balance -204 ml -102 ml medications Current Medications Medications Dose Ordered Sig/Leslie Route Start Time Stop Time Status Last Admin Dose Admin Albuterol 2.5 mg Q4HR PRN NEB 12/08/23 19:30 12/23/23 06:35 2.5 MG Ipratropium [place] 0.5 mg Q4HR NEB 12/08/23 22:00 12/23/23 06:34 0.5 MG Ondansetron HCl 4 mg Q4HP PRN IV 12/08/23 19:30 Pantoprazole Sodium 40 mg DAILY IV 12/09/23 10:00 12/23/23 08:48 40 MG Hydralazine HCl 10 mg Q4HP PRN IV 12/09/23 05:30 12/22/23 14:05 10 MG Sodium Chloride 10 ml QSHIFT@ IV 12/09/23 22:00 12/23/23 08:48 10 ML Acetaminophen 650 mg Q6HP PRN [place] 12/10/23 01:30 12/13/23 06:51 650 MG Metoclopramide HCl 5 mg Q6HPRN PRN IV 12/13/23 21:45 Levothyroxine Sodium 112 mcg QAM@0600 PO 12/15/23 06:00 12/23/23 05:18 112 MCG Diagnostic Test (Pha) 1 strip Q6HR 12/14/23 18:00 12/23/23 05:18 1 STRIP Insulin Human Regular Q6HR SC 12/14/23 18:00 12/23/23 05:17 6 UNITS Dextrose 50 ml UD PRN IV 12/14/23 18:00 Metoprolol Tartrate 25 mg BID PO 12/16/23 22:00 12/23/23 08:48 25 MG Lorazepam 1 mg Q4H PRN IV 12/17/23 00:15 Enteral Nutritional Formula 1,000 ml 30ML/HR GT 12/18/23 19:30 12/20/23 21:40 1,000 ML Losartan Potassium 50 mg DAILY PO 12/21/23 10:00 12/23/23 08:47 50 MG Acetaminophen/ Hydrocodone Bitart 1 tab Q4HP PRN PO 12/22/23 14:15 12/23/23 08:45 1 TAB Acetylcysteine 200 mg Q8HR NEB 12/22/23 22:00 12/23/23 06:34 200 MG objective The patient is well-nourished and well-developed with no distress. Status post tracheostomy and feeding tube insertion MENTAL STATUS: Subjective CRANIAL NERVES: Pupils are equal, round and reactive, small. There are c onjugated eye movements. No signs of facial weakness. There are no gagging or coughing reflexes during oral care SENSATION: Responses to pain stimuli. MOTOR: Normal tone in the upper and lower extremity. Normal muscle bulk. No fasciculations. She moves the arms and legs REFLEXES: Deep tendon reflexes are symmetrical. ? Bilateral upgoing toes CEREBELLAR/COORDINATION: Deferred GAIT/STATION: deferred. laboratory and microbiology Laboratory Tests 12/23/23 04:35 Test 12/23/23 04:35 Range/Units Serum Glucose 240 H 74-106 mg/dL Problem List Abnormal MRI brain scan, likely the patient has multiple stroke Coma Metabolic encephalopathy Hypoxic encephalopathy Multiple strokes Ketoacidosis ICU myopathy Bilateral upper extremity deep venous thrombosis Rule out subacute endocarditis Status post tracheostomy Status post PEG tube Assessment/Plan Monitoring Supportive treatment ROB care Respiratory support Stabilize vitals IV antibiotics Lovenox 1 mg/kg subcutaneous b.i.d. Lipitor 20 mg daily Tube feeding Cardiology on case Infectious disease on case More recommendation per clinical course This medical document was created using an electronic medical record system with [email or web address] dictation system. Although this document has been carefully reviewed, there may still be some phonetic and typographical errors. These areas are purely typographical due to imperfections of the software programs, and do not reflect any compromise in the patient's medical care. Prognosis poor Dietary Evaluation Review Comments: 1) If GI is accessible consider Glucerna 1.2 @ 55 ml/hr goal rate as tolerated 2) If pt remains NPO >7 days consider TPN to meet at least 75% of estimated needs 3) Advance pt diet when medically feasible to a CCHO 45g/Cardiac diet modified per [facility] recommendations 4) Continue current plan of care Expected Outcomes/Goals: 1) Pt to receive nutrition support within 7 days of NPO status 2) Pt diet to advance 3) F/U in 2-3 days Plan discussed with: Other DREW FAGAN MD Dec 23, 2023 10:16
[2023-12-23] MEDS ORDERED: DULoxetine HCL 30 MG CAP PO ONE (11:30)
--- NOTE | 2023-12-23 19:02 | DVHPNRES ---
Progress Note Date Seen: Dec 23, 2023 Resident Creating Document: DANELLE MENDIETA RESIDENT Has the PT tested + for MRSA If YES, has PT been informed?: No Medical Necessity Reason Pt with a Central, PICC or Fol: Yes The following are medically ne: PICC Line, Carr Catheter Reason for carr catheter: Strict I&O Subjective Review of Systems This is a 68-year-old female with past medical history of hypertension, diabetes mellitus type 2, hypothyroidism, COPD, obesity, diabetic polyneuropathy, liver cirrhosis, right knee replacement, multiple admissions for DKA. The patient was initially seen at [facility] on 11/16/2023 where he was intubated and transferred to our facility. At our facility he was treated for DKA and was found to have space occupying lesions in the brain (metastasis/infection/stroke) MRI of the head was done with no conclusive findings at that time. CT scan of the abdomen and pelvis at that time showed dilation of common bile duct and GI recommended ERCP/endoscopic ultrasound so patient was transferred on 11/26/2023 to [facility]. ERCP and ultrasound was performed showing no obstruction either malignancy or stone at that time. Neurosurgery at [facility] evaluated MRI results and stated that could be due to infarcts. Neurologist was against lumbar puncture due to increased risk of herniation. patient was extubated on November 28, 2023 and was transferred step-down unit with 2 L of nasal cannula but lately on December 02 patient became shortness of breath tachypneic required reintubation. The patient had sepsis of unknown etiology and they thought it might be related to the brain lesions so patient was started on broad-spectrum IV antibiotics with MRSA coverage. Patient was readmitted back at [facility]. Patient seen and examined at bedside. There was no major issues overnight blood pressure was stable and patient was not sinus rhythm. We will start the patient on Eliquis 2.5 mg b.i.d. the patient is grimacing pain when any of her extremities are moved. We will start the patient on gabapentin 100 mg b.i.d.. The patient is currently at 6 L of oxygen FiO2 28% saturating 96%. Labs were unremarkable overall. Chest x-ray was reviewed showing a small right-sided interstitial infiltrates. ROS unable to obtain due to patient's current status intubated. Objective vital signs Vital Sign Date Time Temp Pulse Resp B/P (MAP) Pulse Ox O2 Delivery O2 Flow Rate FiO2 12/23/23 18:42 84 20 96 12/23/23 18:03 Trach Collar 8 N/A 12/23/23 17:00 151/57 (88) 12/23/23 16:00 98.3 98.3 Total Intake and Output 12/22/23 12/22/23 12/23/23 15:00 23:00 07:00 Intake Total 346 ml 298 ml Output Total 550 ml 400 ml Balance -204 ml -102 ml medications Current Medications Medications Dose Ordered Sig/Leslie Route Start Time Stop Time Status Last Admin Dose Admin Albuterol 2.5 mg Q4HR PRN NEB 12/08/23 19:30 12/23/23 14:42 2.5 MG Ipratropium [place] 0.5 mg Q4HR NEB 12/08/23 22:00 12/23/23 17:52 0.5 MG Ondansetron HCl 4 mg Q4HP PRN IV 12/08/23 19:30 Pantoprazole Sodium 40 mg DAILY IV 12/09/23 10:00 12/23/23 08:48 40 MG Hydralazine HCl 10 mg Q4HP PRN IV 12/09/23 05:30 12/22/23 14:05 10 MG Sodium Chloride 10 ml QSHIFT@ IV 12/09/23 22:00 12/23/23 08:48 10 ML Acetaminophen 650 mg Q6HP PRN [place] 12/10/23 01:30 12/13/23 06:51 650 MG Metoclopramide HCl 5 mg Q6HPRN PRN IV 12/13/23 21:45 Levothyroxine Sodium 112 mcg QAM@0600 PO 12/15/23 06:00 12/23/23 05:18 112 MCG Diagnostic Test (Pha) 1 strip Q6HR 12/14/23 18:00 12/23/23 12:00 1 STRIP Insulin Human Regular Q6HR SC 12/14/23 18:00 12/23/23 12:00 10 UNITS Dextrose 50 ml UD PRN IV 12/14/23 18:00 Metoprolol Tartrate 25 mg BID PO 12/16/23 22:00 12/23/23 08:48 25 MG Lorazepam 1 mg Q4H PRN IV 12/17/23 00:15 Enteral Nutritional Formula 1,000 ml 30ML/HR GT 12/18/23 19:30 12/20/23 21:40 1,000 ML Losartan Potassium 50 mg DAILY PO 12/21/23 10:00 12/23/23 08:47 50 MG Acetaminophen/ Hydrocodone Bitart 1 tab Q4HP PRN PO 12/22/23 14:15 12/23/23 08:45 1 TAB Acetylcysteine 200 mg Q8HR NEB 12/22/23 22:00 12/23/23 17:52 200 MG Apixaban 2.5 mg BID PO 12/23/23 22:00 Examination Physical Examination: General: Patient opens eyes spontaneously to voice, on trach collar at 8L of O2, FIO2 28% sat 96% HEENT: Normocephalic, atraumatic, moist mucous membranes, light gag reflex but present. Respiratory/pulmonary: Bilateral lungs with coarse sounds due to secretions. no crackles or wheezes at this time. Cardiovascular: irregular heart sounds S1 and S2 with no associated murmurs. monitor reviewed and was showing PVCs. Abdomen: Abdomen nondistended, there is no pain to palpation in any of the abdominal quadrants, no palpable masses. PEG tube on place with no signs in infection at this time. Extremities: There is no bilateral pleural effusions at this time. Peripheral Pulses: 3+ Radial (R). 3+ Radial (L). 3+ Dorsalis pedis (R). 3+ Dorsalis pedis(L) Skin: No rashes or pruritus, there is no sacral edema present at this time. Neurological: bilateral pupils reactive to light, Patient understands simple questions and tries to answer moving her head. Not actively moving extremities at this time. Cranial nerves not able to be evaluated at this time. laboratory and microbiology Laboratory Tests 12/23/23 04:35 Test 12/23/23 04:35 Range/Units Serum Glucose 240 H 74-106 mg/dL Microbiology Date/Time Source Procedure Growth Status 12/21/23 09:42 Trachea Gram Stain - Final Resulted 12/21/23 09:42 Trachea Respiratory Culture - Preliminary Resulted 12/14/23 19:42 Voided Urine Urine Culture - Final Complete 12/09/23 09:28 Blood Blood Culture - Final NO GROWTH AFTER 5 DAYS OF INCUBATION. Complete 12/08/23 19:00 Sputum Gram Stain - Final Complete 12/08/23 19:00 Sputum Respiratory Culture - Final Complete Problem List/Assessment/Plan Problem List/Assessment/Plan Assessment/Plan Neurology Acute metabolic encephalopathy likely in the setting of sepsis versus brain occupying lesions (metastasis/infection/stroke) -patient has a previous MRI at this facility showing no conclusive diagnosis, At [facility] did not got any conclusive diagnosis as well. -failed extubation at [facility] -CT scan of the head performed at this visit show hypodensities in bilateral cerebellum with no acute intracranial abnormalities. -MRI with contrast of the brain should be performed to clarify etiology of brain occupying lesions. Study was hold today due to YULIANA, we will wait for renal function recovery, meanwhile we will try to decrease sedation and assess neurologic response clinically. -Will order MRI of the brain with contrast (cancel it since neurology recommended MRI SPECT tomography of the brain which could not be performed at this facility) Brain lessions on MRI w/o contrast, unknown etiology -we will perform brain MRI with contrast once kidney function recovers. -lab workup performed at [facility] was negative for blastomycosis, tuberculosis, cryptococcosis Polyneuropathy -Start gabapentin 100mg BID Sedation -OFF sedation Not on vasopressors at this time. Cardiology Acute on chronic diastolic heart failure (HFpEF 55%) -Both echocardiograms TTE YOLANDA were performed showing no vegetations or cardiac valve abn. Ruled out endocarditis -YOLANDA performed on 12/10/2023 showed normal cardiac valves with no vegetations at that time. Primary hypertension -Continue losartan 50mg QD -Continue metoprolol 25mg PO BID Respiratory S/P tracheostomy performed today in the morning (12/13/23) -Patient currently on trach collar sat 96% on FIO2 30% Acute hypoxic respiratory failure likely in the setting of aspiration pneumonia -Continue IV Unasyn -on tarach collar as described above -CT of the chest/abdomen and pelvis showed no acute findings in the abdominal pelvics but showed multifocal airspace disease and cardiomegaly -chest x-ray performed today showed stable pulmonary congestion right lower lobe infiltration can not be excluded -Physical therapy working with the patient Sepsis in the setting of aspiration pneumonia -continue IV antibiotics as described above Infectious disease Sepsis likely due to aspiration pneumonia and UTI -continue IV antibiotics as stated above UTI UA suggestive of UTI but last urine culture showed no growth -Ordered new U/A came back suggesting UTI -Urine culture came back negative Possible brain abscess/infectious occupying lesions -currently on IV Unasyn Endocrinology Type 2 diabetes mellitus, DKA on previous admissions -Continue on sliding scale insulin -Not on Lantus at this time Diabetic polyneuropathy -Patient sedated, monitor Hypothyroidism -Last TSH was 17.87 -today, ordered free T4 and T3 which came back 0.48 and 0.79 respectively -Continue levothyroxine 112mcgQAM Gastroenterology Acute transaminitis, resolved -AST 20, ALT 16 -Continue monitoring Cholelithiasis w/o cholecystitis -CT abdomen showed cholelithiasis w/o findings suggestive of cholecystitis Hematology Superficial thrombophlebitis of right cephalic and basilic veins -no need for anticoagulation DVT of the left brachial vein -Start eliquis 2.5mg BID Nephrology YULIANA likely due to VMN -today, creatinine is 0.84 and BUN 11 -Monitor kidney function Nutrition -EN at 30cc/hr Lines: Midline of right upper arm placed on 12/08/2023 (WILL REMOVE MIDLINE) PICC line on left upper arm placed on 12/09/2023 Goals of care discussed with medical team for >23min Critical time spent> 51 min Plan discussed with Dr. Razo Plan discussed with: Other My Orders My Orders Orders - DANELLE MENDIETA Procedure Category Date Status Time Chest Xray 1 View XY 12/23/23 Resulted 04:00 Dietary Evaluation Review Comments: 1) If GI is accessible consider Glucerna 1.2 @ 55 ml/hr goal rate as tolerated 2) If pt remains NPO >7 days consider TPN to meet at least 75% of estimated needs 3) Advance pt diet when medically feasible to a CCHO 45g/Cardiac diet modified per [facility] recommendations 4) Continue current plan of care Expected Outcomes/Goals: 1) Pt to receive nutrition support within 7 days of NPO status 2) Pt diet to advance 3) F/U in 2-3 days Date of Service: Dec 23, 2023 Billing Provider: FREEDOM RAZO MD Common Visit Codes: [id number] CARE 30-74 MIN DANELLE MENDIETA Dec 23, 2023 19:02 FREEDOM RAZO MD Dec 25, 2023 20:01
[2023-12-23] MEDS: GABAPENTIN 100 MG CAP PO SCH (20:38)
[2023-12-23] MEDS: APIXABAN 2.5 MG TAB PO SCH (20:39)
[2023-12-23] MEDS: LORazepam 2MG/ML-1ML VIAL IV PRN (22:59)
--- NOTE | 2023-12-23 23:30 | DVHPN2 ---
Consult Progress Note Date Seen: Dec 24, 2023 Subjective Patient reports: Feels better (no diarrhea or rash) Objective vital signs Vital Sign Date Time Temp Pulse Resp B/P (MAP) Pulse Ox O2 Delivery O2 Flow Rate FiO2 12/23/23 22:00 83 12/23/23 22:00 156/66 12/23/23 21:41 16 99 12/23/23 20:00 Trach Collar 8 30 30 12/23/23 16:00 98.3 98.3 Total Intake and Output 12/22/23 12/22/23 12/23/23 15:00 23:00 07:00 Intake Total 346 ml 298 ml Output Total 550 ml 400 ml Balance -204 ml -102 ml medications Current Medications Medications Dose Ordered Sig/Leslie Route Start Time Stop Time Status Last Admin Dose Admin Albuterol 2.5 mg Q4HR PRN NEB 12/08/23 19:30 12/23/23 21:39 2.5 MG Ipratropium [place] 0.5 mg Q4HR NEB 12/08/23 22:00 12/23/23 21:39 0.5 MG Ondansetron HCl 4 mg Q4HP PRN IV 12/08/23 19:30 Pantoprazole Sodium 40 mg DAILY IV 12/09/23 10:00 12/23/23 08:48 40 MG Hydralazine HCl 10 mg Q4HP PRN IV 12/09/23 05:30 12/22/23 14:05 10 MG Sodium Chloride 10 ml QSHIFT@10,22 IV 12/09/23 22:00 12/23/23 20:39 10 ML Metoclopramide HCl 5 mg Q6HPRN PRN IV 12/13/23 21:45 Levothyroxine Sodium 112 mcg QAM@0600 PO 12/15/23 06:00 12/23/23 05:18 112 MCG Diagnostic Test (Pha) 1 strip Q6HR 12/14/23 18:00 12/23/23 22:59 1 STRIP Insulin Human Regular Q6HR SC 12/14/23 18:00 12/23/23 23:07 3 UNITS Dextrose 50 ml UD PRN IV 12/14/23 18:00 Metoprolol Tartrate 25 mg BID PO 12/16/23 22:00 12/23/23 20:38 25 MG Lorazepam 1 mg Q4H PRN IV 12/17/23 00:15 12/23/23 22:59 1 MG Enteral Nutritional Formula 1,000 ml 30ML/HR GT 12/18/23 19:30 12/20/23 21:40 1,000 ML Losartan Potassium 50 mg DAILY PO 12/21/23 10:00 12/23/23 08:47 50 MG Acetaminophen/ Hydrocodone Bitart 1 tab Q4HP PRN PO 12/22/23 14:15 12/23/23 20:38 1 TAB Acetylcysteine 200 mg Q8HR NEB 12/22/23 22:00 12/23/23 17:52 200 MG Apixaban 2.5 mg BID PO 12/23/23 22:00 12/23/23 20:39 2.5 MG Gabapentin 100 mg BID PO 12/23/23 22:00 12/23/23 20:38 100 MG Acetaminophen 650 mg Q6HP PRN PO 12/23/23 21:15 PHYSICAL EXAM: - GENERAL: Alert and oriented x 3. No acute distress. Well-nourished. on trach collar - EYES: EOMI. Anicteric. - HENT: Moist mucous membranes. No scleral icterus. No cervical lymphadenopathy. - LUNGS: Clear to auscultation bilaterally. No accessory muscle use. - CARDIOVASCULAR: Regular rate and rhythm. No murmur. No JVD. - ABDOMEN: Soft, non-tender and non-distended. No palpable masses. - EXTREMITIES: No edema. Non-tender.SKIN: No rashes or lesions. Warm. - NEUROLOGIC: No focal neurological deficits. CN II-XII grossly intact, but not individually tested. - PSYCHIATRIC: Cooperative. Appropriate mood and affect. laboratory and microbiology Laboratory Tests 12/23/23 04:35 Test 12/23/23 04:35 Range/Units Serum Glucose 240 H 74-106 mg/dL Problem List/Assessment/Plan Problem List/Assessment/Plan Assessment/Plan Problems(with codes): (1) Hospital-acquired pneumonia (2) COPD (chronic obstructive pulmonary disease) (3) DKA (diabetic ketoacidosis) (4) HTN (hypertension) (5) Closed right hip fracture Plan/Recommendation ASSESSMENT AND PLAN: ID Problem List: - Aspiration pneumonia - Acute respiratory failure - Diabetic Ketoacidosis (DKA) - Sepsis due to UTI vs pneumonia - Acute Kidney Injury (YULIANA) - Hypernatremia - Transaminitis - Fatty liver - Uncontrolled diabetes (A1C of 11.7) - Hypothyroidism - Hypertension - COPD without exacerbation - Chronic kidney disease (CKD) Assessment: This is a 68-year-old female with a past medical history of diabetes, hypertension, recurrent DKA, hypothyroidism, obesity, COPD, neuropathies, mechanical falls, liver cirrhosis, and multiple joint replacements. The patient presented to the ED with acute loss of consciousness on 11/15/2023, subsequently diagnosed with DKA and an upper GI bleed. While at [facility], a CT and MRI of the head showed concerning lesions for metastasis vs. infectious process and gallbladder issues. Due to renal failure, these images were performed without contrast. An ERCP at [facility] showed no gallstones or common bile duct obstruction. Currently, the patient is reintubated on minimal sedation and receiving broad-spectrum antibiotics for presumed meningitis and other infections. 12/09: Patient has had a repeat abdomen, pelvis, chest Ct with contrast which shows no acute findings in the abdomen and pelvis. multifocal airspace in the lungs was shown. 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 12/12: sp trach 12/13: off sedation 12/19: trach 7l,elevated temps Plan: - sp 3 week vancomycin and ceftriaxone course, will monitor patient off all antibiotics - aspiration precautions - Blood cultures monitoring. - Monitor respiratory status and adjust ventilator settings as necessary. - Monitor and manage blood glucose levels. - Supportive care as needed. Isolation Precautions: Standard Total critical care time: Approximately 59 minutes Due to a high probability of clinically significant, life threatening deterioration, the patient required my highest level of preparedness to intervene emergently and I personally spent this critical care time directly and personally managing the patient. This critical care time included obtaining a history; examining the patient; pulse oximetry; ordering and review of studies; arranging urgent treatment with development of a management plan; evaluation of patient's response to treatment; frequent reassessment; and, discussions with other providers. This critical care time was performed to assess and manage the high probability of imminent, life-threatening deterioration that could result in multi-organ failure. It was exclusive of separately billable procedures and treating other patients and teaching time. Assessment and plan was discussed with the patient as written above. Plan is subject to change pending incorporation of new incoming information/diagnostics. Updates may be added as addendum at the bottom (OR TOP) of this note. Thank you for interesting consult. ID will continue to follow. Please contact Infectious disease for any questions or concerns. Nithin Carrasco M.D. [facility] Ph: ? Plan discussed with: Patient Dietary Evaluation Review Comments: 1) If GI is accessible consider Glucerna 1.2 @ 55 ml/hr goal rate as tolerated 2) If pt remains NPO >7 days consider TPN to meet at least 75% of estimated needs 3) Advance pt diet when medically feasible to a CCHO 45g/Cardiac diet modified per RELIEF WORKER recommendations 4) Continue current plan of care Expected Outcomes/Goals: 1) Pt to receive nutrition support within 7 days of NPO status 2) Pt diet to advance 3) F/U in 2-3 days NITHIN CARRASCO MD Dec 23, 2023 23:30
[2023-12-24] VITALS (35 sets, daily range): BP systolic 127–180; BP diastolic 42–81; PULSE 62–86; RESP 14–27; TEMP 97.8–100.8; O2SAT 92–100
--- NOTE | 2023-12-24 06:05 | DVH ---
CHEST RADIOGRAPH Indication:reevaluate Technique: Single frontal view of the chest was obtained COMPARISON: XY CHEST XRAY 1 VIEW on DOS: 12/23/23, XY CHEST XRAY 1 VIEW on DOS: 12/22/23, XY CHEST XRAY 1 VIEW on DOS: 12/20/23 FINDINGS: Lines and Tubes: Tracheostomy in satisfactory position. Left PICC projects towards the azygous vein. Lungs: Clear Pleura: No effusion. No pneumothorax. Cardiomediastinal contours: Unremarkable Bones: Unremarkable IMPRESSION: Left PICC projects towards the azygous vein. Power bedside normal saline flush of the PICC catheter could be considered for repositioning. Clinical correlation advised.
[2023-12-24 06:13] LABS: Anion Gap 8 (5-15); Calcium 9.6 mg/dL (8.7-10.4); Carbon Dioxide 27 mmol/L (20-31); Chloride 111 mmol/L (98-107); Sodium 146 mmol/L (136-145)
[2023-12-24 06:18] LABS: Glucose 150 mg/dL (74-106)
[2023-12-24 06:19] LABS: BUN/Creatinine Ratio 13.6 (10.0-20.0); Basophils # (auto) 0.1 10 ^3/uL (0-0.2); Basophils % (auto) 1.4 % (0.0-2.0); Blood Urea Nitrogen 11 mg/dL (9-23); Eosinophils # (auto) 0.9 10 ^3/uL (0-0.8); Eosinophils % (auto) 13.3 % (0.0-7.0); Hematocrit 29.7 % (36.0-46.0); Hemoglobin 9.5 g/dL (12.2-16.2); Lymphocytes # (auto) 2.6 10 ^3/uL (0.4-5.4); Lymphocytes % (auto) 38.9 % (10.0-50.0); Mean Corpuscular Hemoglobin 28.5 pg (28.0-32.0); Mean Corpuscular Hgb Conc. 31.9 g/dL (32.0-36.0); Mean Corpuscular Volume 89.5 fL (80.0-100.0); Monocytes # (auto) 0.5 10 ^3/uL (0-1.3); Monocytes % (auto) 7.3 % (0.0-12.0); Neutrophils # (auto) 2.6 10 ^3/uL (1.6-8.6); Neutrophils % (auto) 39.1 % (37.0-80.0); Nucleated Red Blood Cells % 0.2 %; Platelet Count (auto) 413 10^3/uL (140-450); Red Blood Cells 3.32 10^6/uL (4.0-5.20); Red Cell Distribution Width 16.7 % (11.8-14.3); White Blood Cell 6.7 10^3/uL (4.4-10.8)
[2023-12-24] MEDS: LOSARTAN POTASSIUM 25 MG TAB PO SCH (09:51)
[2023-12-24] MEDS ORDERED: DULoxetine HCL 30 MG CAP PO SCH (10:00)
[2023-12-24] MEDS: ACETAMINOPHEN 325 MG TAB PO PRN (12:24)
--- NOTE | 2023-12-24 13:52 | DVHPNRES ---
Progress Note Date Seen: Dec 24, 2023 Resident Creating Document: DANELLE MENDIETA RESIDENT Has the PT tested + for MRSA If YES, has PT been informed?: No Medical Necessity Reason Pt with a Central, PICC or Fol: Yes The following are medically ne: PICC Line, Carr Catheter Reason for carr catheter: Strict I&O Subjective Review of Systems This is a 68-year-old female with past medical history of hypertension, diabetes mellitus type 2, hypothyroidism, COPD, obesity, diabetic polyneuropathy, liver cirrhosis, right knee replacement, multiple admissions for DKA. The patient was initially seen at [facility] on 11/16/2023 where he was intubated and transferred to our facility. At our facility he was treated for DKA and was found to have space occupying lesions in the brain (metastasis/infection/stroke) MRI of the head was done with no conclusive findings at that time. CT scan of the abdomen and pelvis at that time showed dilation of common bile duct and GI recommended ERCP/endoscopic ultrasound so patient was transferred on 11/26/2023 to [place]. ERCP and ultrasound was performed showing no obstruction either malignancy or stone at that time. Neurosurgery at [place] evaluated MRI results and stated that could be due to infarcts. Neurologist was against lumbar puncture due to increased risk of herniation. patient was extubated on November 28, 2023 and was transferred step-down unit with 2 L of nasal cannula but lately on December 02 patient became shortness of breath tachypneic required reintubation. The patient had sepsis of unknown etiology and they thought it might be related to the brain lesions so patient was started on broad-spectrum IV antibiotics with MRSA coverage. Patient was readmitted back at [facility]. Patient seen and examined at bedside. Patient is off sedation and currently on trach collar at 7 L of oxygen with an FiO2 of 40% saturating 95%. Patient is understanding and slightly following commands nodding her head. The patient started minimally moving upper extremities which she did not move before. We will change enteral nutrition to Glucerna. We will start doing physical therapy twice a day and we will downgrade the patient to telemetry. Blood glucose this morning was significantly elevated reason why we changed from mild sliding scale to moderate sliding scale insulin and we added Lantus 15 units daily. We will close monitor blood glucose levels and readjust dose if needed. ROS unable to obtain due to patient's current condition on tracheostomy and current underlying problem. Objective vital signs Vital Sign Date Time Temp Pulse Resp B/P (MAP) Pulse Ox O2 Delivery O2 Flow Rate FiO2 12/24/23 12:24 100.8 12/24/23 12:00 79 19 164/70 (101) 98 12/24/23 08:00 Trach Collar 7 40 40 Total Intake and Output 12/23/23 12/23/23 12/24/23 15:00 23:00 07:00 Intake Total 323 ml 246 ml Output Total 825 ml 350 ml Balance -502 ml -104 ml medications Current Medications Medications Dose Ordered Sig/Leslie Route Start Time Stop Time Status Last Admin Dose Admin Albuterol 2.5 mg Q4HR PRN NEB 12/08/23 19:30 12/24/23 10:09 2.5 MG Ipratropium [place] 0.5 mg Q4HR NEB 12/08/23 22:00 12/24/23 10:09 0.5 MG Ondansetron HCl 4 mg Q4HP PRN IV 12/08/23 19:30 Pantoprazole Sodium 40 mg DAILY IV 12/09/23 10:00 12/24/23 09:50 40 MG Hydralazine HCl 10 mg Q4HP PRN IV 12/09/23 05:30 12/22/23 14:05 10 MG Sodium Chloride 10 ml QSHIFT@ IV 12/09/23 22:00 12/24/23 09:50 10 ML Metoclopramide HCl 5 mg Q6HPRN PRN IV 12/13/23 21:45 Levothyroxine Sodium 112 mcg QAM@0600 PO 12/15/23 06:00 12/24/23 05:25 112 MCG Diagnostic Test (Pha) 1 strip Q6HR 12/14/23 18:00 12/24/23 12:00 1 STRIP Insulin Human Regular Q6HR SC 12/14/23 18:00 12/24/23 12:00 10 UNITS Dextrose 50 ml UD PRN IV 12/14/23 18:00 Metoprolol Tartrate 25 mg BID PO 12/16/23 22:00 12/24/23 09:51 25 MG Lorazepam 1 mg Q4H PRN IV 12/17/23 00:15 12/24/23 06:15 1 MG Acetaminophen/ Hydrocodone Bitart 1 tab Q4HP PRN PO 12/22/23 14:15 12/24/23 02:33 1 TAB Acetylcysteine 200 mg Q8HR NEB 12/22/23 22:00 12/24/23 01:58 200 MG Apixaban 2.5 mg BID PO 12/23/23 22:00 12/24/23 09:51 2.5 MG Gabapentin 100 mg BID PO 12/23/23 22:00 12/24/23 09:51 100 MG Acetaminophen 650 mg Q6HP PRN PO 12/23/23 21:15 12/24/23 12:24 650 MG Losartan Potassium 100 mg DAILY PO 12/24/23 07:30 12/24/23 09:51 100 MG Enteral Nutritional Formula 1,000 ml 40ML/HR GT 12/24/23 09:15 Examination Physical Examination: General: Patient opens eyes spontaneously to voice, on trach collar at 7L of O2, FIO2 40% sat 95% HEENT: Normocephalic, atraumatic, moist mucous membranes, light gag reflex but present. Respiratory/pulmonary: Bilateral lung sounds grossly clear no significant crackles or wheezes at this time. Cardiovascular: Regular heart sounds S1 and S2 with no associated murmurs. Abdomen: Abdomen nondistended, there is no pain to palpation in any of the abdominal quadrants, no palpable masses. PEG tube on place with no signs in infection at this time. Extremities: There is no bilateral pleural effusions at this time. Peripheral Pulses: 3+ Radial (R). 3+ Radial (L). 3+ Dorsalis pedis (R). 3+ Dorsalis pedis(L) Skin: No rashes or pruritus, there is no sacral edema present at this time. Neurological: Cranial nerves not able to evaluate independently. Patient responds to verbal stimuli and not head answering simple questions. Patient started moving bilateral upper extremities. laboratory and microbiology Laboratory Tests 12/24/23 05:00 Test 12/24/23 05:00 Range/Units Serum Glucose 150 H 74-106 mg/dL Microbiology Date/Time Source Procedure Growth Status 12/21/23 09:42 Trachea Gram Stain - Final Resulted 12/21/23 09:42 Trachea Respiratory Culture - Preliminary Resulted 12/14/23 19:42 Voided Urine Urine Culture - Final Complete 12/09/23 09:28 Blood Blood Culture - Final NO GROWTH AFTER 5 DAYS OF INCUBATION. Complete 12/08/23 19:00 Sputum Gram Stain - Final Complete 12/08/23 19:00 Sputum Respiratory Culture - Final Complete Problem List/Assessment/Plan Problem List/Assessment/Plan Assessment/Plan Neurology Acute metabolic encephalopathy likely in the setting of sepsis versus brain occupying lesions (metastasis/infection/stroke) -patient has a previous MRI at this facility showing no conclusive diagnosis, At [facility] did not got any conclusive diagnosis as well. -failed extubation at [place] -CT scan of the head performed at this visit show hypodensities in bilateral cerebellum with no acute intracranial abnormalities. -MRI with contrast of the brain should be performed to clarify etiology of brain occupying lesions. Study was hold today due to YULIANA, we will wait for renal function recovery, meanwhile we will try to decrease sedation and assess neurologic response clinically. -Will order MRI of the brain with contrast (cancel it since neurology recommended MRI SPECT tomography of the brain which could not be performed at this facility) Brain lessions on MRI w/o contrast, unknown etiology -we will perform brain MRI with contrast once kidney function recovers. -lab workup performed at [place] was negative for blastomycosis, tuberculosis, cryptococcosis Polyneuropathy -Continue gabapentin 100mg BID Sedation -OFF sedation Not on vasopressors at this time. Cardiology Acute on chronic diastolic heart failure (HFpEF 55%) -Both echocardiograms TTE YOLANDA were performed showing no vegetations or cardiac valve abn. Ruled out endocarditis -YOLANDA performed on 12/10/2023 showed normal cardiac valves with no vegetations at that time. Primary hypertension -Continue losartan 50mg QD -Continue metoprolol 25mg PO BID Respiratory S/P tracheostomy performed today in the morning (12/13/23) -Patient currently on trach collar sat 96% on FIO2 30% Acute hypoxic respiratory failure likely in the setting of aspiration pneumonia -Continue IV Unasyn -on tarach collar as described above -CT of the chest/abdomen and pelvis showed no acute findings in the abdominal pelvics but showed multifocal airspace disease and cardiomegaly -chest x-ray performed today showed stable pulmonary congestion right lower lobe infiltration can not be excluded -Physical therapy working with the patient now placed order for twice a day. Sepsis in the setting of aspiration pneumonia -continue IV antibiotics as described above Infectious disease Sepsis likely due to aspiration pneumonia and UTI -continue IV antibiotics as stated above UTI UA suggestive of UTI but last urine culture showed no growth -Ordered new U/A came back suggesting UTI -Urine culture came back negative Possible brain abscess/infectious occupying lesions -currently on IV Unasyn Endocrinology Type 2 diabetes mellitus, DKA on previous admissions -start moderate sliding scale insulin -start Lantus 15 units q.a.m. -Not on Lantus at this time Diabetic polyneuropathy -Patient sedated, monitor Hypothyroidism -Last TSH was 17.87 -today, ordered free T4 and T3 which came back 0.48 and 0.79 respectively -Continue levothyroxine 112mcgQAM Gastroenterology Acute transaminitis, resolved -AST 20, ALT 16 -Continue monitoring Cholelithiasis w/o cholecystitis -CT abdomen showed cholelithiasis w/o findings suggestive of cholecystitis Hematology Superficial thrombophlebitis of right cephalic and basilic veins -no need for anticoagulation DVT of the left brachial vein -Continue eliquis 2.5mg BID Nephrology YULIANA likely due to VMN -today, creatinine is 0.81 and BUN 11 -Monitor kidney function Nutrition -Discontinue current enteral nutrition and start Glucerna. Increase in physical therapy to twice a day Lines: Midline of right upper arm placed on 12/08/2023 (WILL REMOVE MIDLINE) PICC line on left upper arm placed on 12/09/2023 Downgrade to telemetry. Goals of care discussed with Chelsea (daughter) via phone for >18min Critical time spent> 48 min Plan discussed with Dr. Honeycutt Plan discussed with: Daughter (chelsea via phone) My Orders My Orders Orders - DANELLE MENDIETA RESIDENT Procedure Category Date Status Time Gabapentin Capsule PHA 12/23/23 In Process (Neurontin Capsule) 22:00 Chest Xray 1 View XY 12/24/23 Resulted 04:00 Losartan Tablet PHA 12/24/23 In Process (Cozaar Tablet) 07:30 Nutritional PHA 12/24/23 In Process Supplements (Glucerna 09:15 Dietary Evaluation Review Comments: 1) If GI is accessible consider Glucerna 1.2 @ 55 ml/hr goal rate as tolerated 2) If pt remains NPO >7 days consider TPN to meet at least 75% of estimated needs 3) Advance pt diet when medically feasible to a [facility]/Cardiac diet modified per NET LEAD DEVELOPER recommendations 4) Continue current plan of care Expected Outcomes/Goals: 1) Pt to receive nutrition support within 7 days of NPO status 2) Pt diet to advance 3) F/U in 2-3 days Date of Service: Dec 24, 2023 Billing Provider: RUBENS HONEYCUTT MD Common Visit Codes: [id number] CARE 30-74 MIN DANELLE MENDIETA RESIDENT Dec 24, 2023 13:52 RUBENS HONEYCUTT MD Dec 24, 2023 19:36
[2023-12-24] MEDS: INSULIN LANTUS (GLARGINE) 1 /0.01ml (100units/ml) SC SCH (14:22)
--- NOTE | 2023-12-24 15:51 | DVH ---
CHEST RADIOGRAPH Indication:S/P PICC line reposition Technique: Single frontal view of the chest was obtained COMPARISON: XY CHEST XRAY 1 VIEW on DOS: 12/24/23, XY CHEST XRAY 1 VIEW on DOS: 12/23/23, XY CHEST XRAY 1 VIEW on DOS: 12/22/23 FINDINGS: Lines and Tubes: Tracheostomy and left PICC in satisfactory position. Lungs: Congestion Pleura: No pleural effusion No pneumothorax. Cardiomediastinal contours: Unremarkable Bones: Unremarkable IMPRESSION: Left PICC in satisfactory position.
[2023-12-24] MEDS: ACCU-CHEK COMFORT CURVE STRIP VI SCH (17:54)
[2023-12-24] MEDS: InsuLIN REG 1unit/0.01ml Soln (100units/ml) SC SCH (18:00)
--- NOTE | 2023-12-24 20:08 | DVHPN2 ---
Consult Progress Note Date Seen: Dec 24, 2023 Subjective Patient reports: Other (Febril to 100.8 degress , noted to have some increased residuals from tube feeeds ) Objective vital signs Vital Sign Date Time Temp Pulse Resp B/P (MAP) Pulse Ox O2 Delivery O2 Flow Rate FiO2 12/24/23 18:53 76 16 99 12/24/23 18:47 Trach Collar 8.0 12/24/23 18:47 40 40 12/24/23 17:23 98.7 171/73 (105) 98.7 Total Intake and Output 12/23/23 12/23/23 12/24/23 15:00 23:00 07:00 Intake Total 323 ml 246 ml Output Total 825 ml 350 ml Balance -502 ml -104 ml medications Current Medications Medications Dose Ordered Sig/Leslie Route Start Time Stop Time Status Last Admin Dose Admin Albuterol 2.5 mg Q4HR PRN NEB 12/08/23 19:30 12/24/23 18:47 2.5 MG Ipratropium [place] 0.5 mg Q4HR NEB 12/08/23 22:00 12/24/23 18:47 0.5 MG Ondansetron HCl 4 mg Q4HP PRN IV 12/08/23 19:30 Pantoprazole Sodium 40 mg DAILY IV 12/09/23 10:00 12/24/23 09:50 40 MG Hydralazine HCl 10 mg Q4HP PRN IV 12/09/23 05:30 12/24/23 16:10 10 MG Sodium Chloride 10 ml QSHIFT@ IV 12/09/23 22:00 12/24/23 09:50 10 ML Metoclopramide HCl 5 mg Q6HPRN PRN IV 12/13/23 21:45 Levothyroxine Sodium 112 mcg QAM@0600 PO 12/15/23 06:00 12/24/23 05:25 112 MCG Metoprolol Tartrate 25 mg BID PO 12/16/23 22:00 12/24/23 09:51 25 MG Lorazepam 1 mg Q4H PRN IV 12/17/23 00:15 12/24/23 06:15 1 MG Acetaminophen/ Hydrocodone Bitart 1 tab Q4HP PRN PO 12/22/23 14:15 12/24/23 15:11 1 TAB Acetylcysteine 200 mg Q8HR NEB 12/22/23 22:00 12/24/23 14:18 200 MG Apixaban 2.5 mg BID PO 12/23/23 22:00 12/24/23 09:51 2.5 MG Gabapentin 100 mg BID PO 12/23/23 22:00 12/24/23 09:51 100 MG Acetaminophen 650 mg Q6HP PRN PO 12/23/23 21:15 12/24/23 12:24 650 MG Losartan Potassium 100 mg DAILY PO 12/24/23 07:30 12/24/23 09:51 100 MG Enteral Nutritional Formula 1,000 ml 40ML/HR GT 12/24/23 09:15 Insulin Glargine 15 units DAILY@1000 SC 12/24/23 13:30 12/24/23 14:22 15 UNITS Diagnostic Test (Pha) 1 strip Q6HR 12/24/23 18:00 12/24/23 17:54 1 STRIP Insulin Human Regular Q6HR SC 12/24/23 18:00 Dextrose 50 ml UD PRN IV 12/24/23 13:30 PHYSICAL EXAM: - GENERAL: Alert and oriented x 3. No acute distress. Well-nourished. on trach collar. Non-verbal - EYES: EOMI. Anicteric. - HENT: Moist mucous membranes. No scleral icterus. No cervical lymphadenopathy. - LUNGS: Forced breath sounds bilaterally. Signs of aspiration - CARDIOVASCULAR: Regular rate and rhythm. No murmur. No JVD. - ABDOMEN: Soft, non-tender and non-distended. No palpable masses. - EXTREMITIES: No edema. Non-tender.SKIN: No rashes or lesions. Warm. - NEUROLOGIC: No focal neurological deficits. CN II-XII grossly intact, but not individually tested. - PSYCHIATRIC: Cooperative. Appropriate mood and affect. laboratory and microbiology Laboratory Tests 12/24/23 05:00 Test 12/24/23 05:00 Range/Units Serum Glucose 150 H 74-106 mg/dL Problem List/Assessment/Plan Problems(with codes): (1) COPD (chronic obstructive pulmonary disease) (2) HTN (hypertension) (3) DKA (diabetic ketoacidosis) (4) Hospital-acquired pneumonia (5) Closed right hip fracture Problem List/Assessment/Plan Assessment/Plan Problems(with codes): (1) Hospital-acquired pneumonia (2) COPD (chronic obstructive pulmonary disease) (3) DKA (diabetic ketoacidosis) (4) HTN (hypertension) (5) Closed right hip fracture Plan/Recommendation ASSESSMENT AND PLAN: ID Problem List: - Aspiration pneumonia - Acute respiratory failure - Diabetic Ketoacidosis (DKA) - Sepsis due to UTI vs pneumonia - Acute Kidney Injury (YULIANA) - Hypernatremia - Transaminitis - Fatty liver - Uncontrolled diabetes (A1C of 11.7) - Hypothyroidism - Hypertension - COPD without exacerbation - Chronic kidney disease (CKD) Assessment: This is a 68-year-old female with a past medical history of diabetes, hypertension, recurrent DKA, hypothyroidism, obesity, COPD, neuropathies, mechanical falls, liver cirrhosis, and multiple joint replacements. The patient presented to the ED with acute loss of consciousness on 11/15/2023, subsequently diagnosed with DKA and an upper GI bleed. While at [facility], a CT and MRI of the head showed concerning lesions for metastasis vs. infectious process and gallbladder issues. Due to renal failure, these images were performed without contrast. An ERCP at [facility] showed no gallstones or common bile duct obstruction. Currently, the patient is reintubated on minimal sedation and receiving broad-spectrum antibiotics for presumed meningitis and other infections. 12/09: Patient has had a repeat abdomen, pelvis, chest Ct with contrast which shows no acute findings in the abdomen and pelvis. multifocal airspace in the lungs was shown. 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 12/12: sp trach 12/13: off sedation 12/19: trach 7l,elevated temps 10/4: Sputal culture is showing normal oral pharyngeal jordan, chest X-ray shows clear lungs, yesterdays X-rays show interstitial edema otherwise clear lungs. Recomend patient continue off antibiotics and just do aspiriations. If fever starts , cosider antibiotics for aspiration pnumonia , suspect Pneumonitis Plan: - continue off antibiotics unless fever starts up - sp 3 week vancomycin and ceftriaxone course, will monitor patient off all antibiotics - aspiration precautions - Blood cultures monitoring. - Monitor respiratory status and adjust ventilator settings as necessary. - Monitor and manage blood glucose levels. - Supportive care as needed. Isolation Precautions: Standard Total critical care time: Approximately 59 minutes Due to a high probability of clinically significant, life threatening deterioration, the patient required my highest level of preparedness to intervene emergently and I personally spent this critical care time directly and personally managing the patient. This critical care time included obtaining a history; examining the patient; pulse oximetry; ordering and review of studies; arranging urgent treatment with development of a management plan; evaluation of patient's response to treatment; frequent reassessment; and, discussions with other providers. This critical care time was performed to assess and manage the high probability of imminent, life-threatening deterioration that could result in multi-organ failure. It was exclusive of separately billable procedures and treating other patients and teaching time. Assessment and plan was discussed with the patient as written above. Plan is subject to change pending incorporation of new incoming information/diagnostics. Updates may be added as addendum at the bottom (OR TOP) of this note. Thank you for interesting consult. ID will continue to follow. Please contact Infectious disease for any questions or concerns. Nithin Carrasco M.D. [facility] Ph: ? Plan discussed with: Other Dietary Evaluation Review Comments: 1) If GI is accessible consider Glucerna 1.2 @ 55 ml/hr goal rate as tolerated 2) If pt remains NPO >7 days consider TPN to meet at least 75% of estimated needs 3) Advance pt diet when medically feasible to a CCHO 45g/Cardiac diet modified per NETWORK SUPPORT recommendations 4) Continue current plan of care Expected Outcomes/Goals: 1) Pt to receive nutrition support within 7 days of NPO status 2) Pt diet to advance 3) F/U in 2-3 days NITHIN CARRASCO MD Dec 24, 2023 20:08
[2023-12-25] VITALS (20 sets, daily range): BP systolic 105–177; BP diastolic 54–85; PULSE 65–89; RESP 4–22; TEMP 98–98.6; O2SAT 95–100
[2023-12-25 06:40] LABS: Basophils # (auto) 0.1 10 ^3/uL (0-0.2); Eosinophils # (auto) 0.9 10 ^3/uL (0-0.8); Eosinophils % (auto) 12.4 % (0.0-7.0); Hemoglobin 9.6 g/dL (12.2-16.2); Monocytes # (auto) 0.5 10 ^3/uL (0-1.3); Nucleated Red Blood Cells % 0.2 %
[2023-12-25 06:43] LABS: Basophils % (auto) 1.6 % (0.0-2.0); Hematocrit 30.3 % (36.0-46.0); Lymphocytes # (auto) 2.4 10 ^3/uL (0.4-5.4); Lymphocytes % (auto) 33.5 % (10.0-50.0); Mean Corpuscular Hemoglobin 28.5 pg (28.0-32.0); Mean Corpuscular Hgb Conc. 31.9 g/dL (32.0-36.0); Mean Corpuscular Volume 89.3 fL (80.0-100.0); Monocytes % (auto) 7.2 % (0.0-12.0); Neutrophils # (auto) 3.3 10 ^3/uL (1.6-8.6); Neutrophils % (auto) 45.3 % (37.0-80.0); Platelet Count (auto) 446 10^3/uL (140-450); Red Blood Cells 3.39 10^6/uL (4.0-5.20); Red Cell Distribution Width 16.4 % (11.8-14.3); White Blood Cell 7.2 10^3/uL (4.4-10.8)
[2023-12-25 07:19] LABS: Alanine Aminotransferase 17 U/L (7-40); Albumin 3.6 g/dL (3.2-4.8); Alkaline Phosphatase 151 U/L (46-116); Anion Gap 10 (5-15); Aspartate Aminotransferase 24 U/L (13-40); BUN/Creatinine Ratio 15.9 (10.0-20.0); Bilirubin, Total < 0.2 mg/dL (0.2-1.0); Blood Urea Nitrogen 13 mg/dL (9-23); Calcium 9.9 mg/dL (8.7-10.4); Carbon Dioxide 25 mmol/L (20-31); Chloride 112 mmol/L (98-107); Glucose 124 mg/dL (74-106); Potassium 3.4 mmol/L (3.5-5.1); Sodium 147 mmol/L (136-145); Total Protein 6.5 g/dL (5.7-8.2)
[2023-12-25] MEDS ORDERED: POTASSIUM CHL 20MEQ/100ML 100 ML IV SCH (11:00)
[2023-12-25] MEDS ORDERED: D5W 5% 1,000 ML IV SCH (11:00)
[2023-12-25] MEDS: POTASSIUM CHL 20MEQ/100ML 100 ML IV SCH (13:22)
[2023-12-25] MEDS: SOD CHL 0.45% 1,000 ML IV SCH (14:00)
--- NOTE | 2023-12-25 14:59 | DVHPNRES ---
Progress Note Date Seen: Dec 25, 2023 Resident Creating Document: MAKENNA MARTINEZ RESIDENT Has the PT tested + for MRSA If YES, has PT been informed?: No Medical Necessity Reason Pt with a Central, PICC or Fol: Yes The following are medically ne: PICC Line, Carr Catheter Reason for carr catheter: Strict I&O Subjective Review of Systems This is a 68-year-old female with past medical history of hypertension, diabetes mellitus type 2, hypothyroidism, COPD, obesity, diabetic polyneuropathy, liver cirrhosis, right knee replacement, multiple admissions for DKA. The patient was initially seen at [facility] on 11/16/2023 where he was intubated and transferred to our facility. At our facility he was treated for DKA and was found to have space occupying lesions in the brain (metastasis/infection/stroke) MRI of the head was done with no conclusive findings at that time. CT scan of the abdomen and pelvis at that time showed dilation of common bile duct and GI recommended ERCP/endoscopic ultrasound so patient was transferred on 11/26/2023 to [place]. ERCP and ultrasound was performed showing no obstruction either malignancy or stone at that time. Neurosurgery at [place] evaluated MRI results and stated that could be due to infarcts. Neurologist was against lumbar puncture due to increased risk of herniation. patient was extubated on November 28, 2023 and was transferred step-down unit with 2 L of nasal cannula but lately on December 02 patient became shortness of breath tachypneic required reintubation. The patient had sepsis of unknown etiology and they thought it might be related to the brain lesions so patient was started on broad-spectrum IV antibiotics with MRSA coverage. [facility] Patient seen and examined at bedside. Patient is understanding and slightly following commands nodding her head. The patient started minimally moving upper extremities which she did not move before. Today patient with mild hypokalemia and hyponatremia, replacement with IV K+ and 1/2 NS 65cc/h. Per Dr Carrasco infectious disease antibiotics were stopped, also social work faculty member were contacted to define discharge disposition: possible hospice pre previous notes Objective vital signs Vital Sign Date Time Temp Pulse Resp B/P (MAP) Pulse Ox O2 Delivery O2 Flow Rate FiO2 12/25/23 13:36 78 16 98 12/25/23 13:29 Trach Collar 8.0 12/25/23 13:29 35 35 12/25/23 13:00 98.3 177/85 (115) 98.3 Total Intake and Output 12/24/23 12/24/23 12/25/23 15:00 23:00 07:00 Intake Total 289 ml 0 ml Output Total 1000 ml 600 ml Balance -711 ml -600 ml medications Current Medications Medications Dose Ordered Sig/Leslie Route Start Time Stop Time Status Last Admin Dose Admin Albuterol 2.5 mg Q4HR PRN NEB 12/08/23 19:30 12/25/23 13:28 2.5 MG Ipratropium [place] 0.5 mg Q4HR NEB 12/08/23 22:00 12/25/23 13:28 0.5 MG Ondansetron HCl 4 mg Q4HP PRN IV 12/08/23 19:30 Pantoprazole Sodium 40 mg DAILY IV 12/09/23 10:00 12/25/23 10:41 40 MG Hydralazine HCl 10 mg Q4HP PRN IV 12/09/23 05:30 12/25/23 05:50 10 MG Sodium Chloride 10 ml QSHIFT@ IV 12/09/23 22:00 12/25/23 10:41 10 ML Metoclopramide HCl 5 mg Q6HPRN PRN IV 12/13/23 21:45 Levothyroxine Sodium 112 mcg QAM@0600 PO 12/15/23 06:00 12/25/23 05:49 112 MCG Metoprolol Tartrate 25 mg BID PO 12/16/23 22:00 12/25/23 10:42 25 MG Lorazepam 1 mg Q4H PRN IV 12/17/23 00:15 12/24/23 06:15 1 MG Acetaminophen/ Hydrocodone Bitart 1 tab Q4HP PRN PO 12/22/23 14:15 12/24/23 15:11 1 TAB Acetylcysteine 200 mg Q8HR NEB 12/22/23 22:00 12/25/23 13:28 200 MG Apixaban 2.5 mg BID PO 12/23/23 22:00 12/25/23 10:43 2.5 MG Gabapentin 100 mg BID PO 12/23/23 22:00 12/25/23 10:42 100 MG Acetaminophen 650 mg Q6HP PRN PO 12/23/23 21:15 12/24/23 12:24 650 MG Losartan Potassium 100 mg DAILY PO 12/24/23 07:30 12/25/23 10:43 100 MG Enteral Nutritional Formula 1,000 ml 40ML/HR GT 12/24/23 09:15 Insulin Glargine 15 units DAILY@1000 SC 12/24/23 13:30 12/25/23 11:05 15 UNITS Diagnostic Test (Pha) 1 strip Q6HR 12/24/23 18:00 12/25/23 13:25 1 STRIP Insulin Human Regular Q6HR SC 12/24/23 18:00 12/25/23 13:25 9 UNITS Dextrose 50 ml UD PRN IV 12/24/23 13:30 Dextrose 1,000 ml @ 75 mls/hr [id number] IV 12/25/23 11:00 Sodium Chloride 1,000 ml @ 65 mls/hr [id number] IV 12/25/23 14:00 Examination General: Patient opens eyes spontaneously to voice, on trach collar HEENT: Normocephalic, atraumatic, moist mucous membranes, light gag reflex but present. Respiratory/pulmonary: lungs clear Cardiovascular: Regular heart sounds S1 and S2 with no associated murmurs. Abdomen: Abdomen nondistended, there is no pain to palpation in any of the abdominal quadrants, no palpable masses. PEG tube on place with no signs in infection at this time. Extremities: There is no bilateral pleural effusions at this time. Skin: No rashes or pruritus, there is no sacral edema present at this time. laboratory and microbiology Laboratory Tests 12/25/23 05:55 Test 12/25/23 05:55 Range/Units Serum Glucose 124 H 74-106 mg/dL Microbiology Date/Time Source Procedure Growth Status 12/21/23 09:42 Trachea Gram Stain - Final Resulted 12/21/23 09:42 Trachea Respiratory Culture - Preliminary Resulted 12/14/23 19:42 Voided Urine Urine Culture - Final Complete 12/09/23 09:28 Blood Blood Culture - Final NO GROWTH AFTER 5 DAYS OF INCUBATION. Complete 12/08/23 19:00 Sputum Gram Stain - Final Complete 12/08/23 19:00 Sputum Respiratory Culture - Final Complete Problem List/Assessment/Plan Problem List/Assessment/Plan Neurology Acute metabolic encephalopathy likely in the setting of sepsis versus brain occupying lesions (metastasis/infection/stroke) -patient has a previous MRI at this facility showing no conclusive diagnosis, At [facility] did not got any conclusive diagnosis as well. -failed extubation at [place] -CT scan of the head performed at this visit show hypodensities in bilateral cerebellum with no acute intracranial abnormalities. -MRI with contrast of the brain should be performed to clarify etiology of brain occupying lesions. Study was hold today due to YULIANA, we will wait for renal function recovery, meanwhile we will try to decrease sedation and assess neurologic response clinically. -Will order MRI of the brain with contrast (cancel it since neurology recommended MRI SPECT tomography of the brain which could not be performed at this facility) Brain lessions on MRI w/o contrast, unknown etiology -we will perform brain MRI with contrast once kidney function recovers. -lab workup performed at [place] was negative for blastomycosis, tuberculosis, cryptococcosis Polyneuropathy -Continue gabapentin 100mg BID Cardiology Acute on chronic diastolic heart failure (HFpEF 55%) Ruled out endocarditis -YOLANDA performed on 12/10/2023 showed normal cardiac valves with no vegetations at that time. Primary hypertension -Continue losartan 50mg QD -Continue metoprolol 25mg PO BID Respiratory S/P tracheostomy performed today in the morning (12/13/23) -Patient currently on trach collar sat 96% on FIO2 30% Acute hypoxic respiratory failure likely in the setting of aspiration pneumonia -on trach collar as described above -CT of the chest/abdomen and pelvis showed no acute findings in the abdominal pelvics but showed multifocal airspace disease and cardiomegaly -chest x-ray performed today showed stable pulmonary congestion right lower lobe infiltration can not be excluded -Physical therapy working with the patient now placed order for twice a day. Sepsis in the setting of aspiration pneumonia resolved -Stop antibiotics according to ID Infectious disease Sepsis likely due to aspiration pneumonia and UTI -stop antibiotics according to ID UTI UA suggestive of UTI but last urine culture showed no growth -Ordered new U/A came back suggesting UTI -Urine culture came back negative Possible brain abscess/infectious occupying lesions -stop antibiotics according to ID Endocrinology Hypokalemia 3.4 and Hyponatremia 147 K IV For hyponatremia: D5W was consider but due to hyperglycemia: half NS 65cc/h Type 2 diabetes mellitus, DKA on previous admissions -sliding scale insulin Diabetic polyneuropathy Hypothyroidism -Last TSH was 17.87 -today, ordered free T4 and T3 which came back 0.48 and 0.79 respectively -Continue levothyroxine [id number] Gastroenterology Acute transaminitis, resolved -Continue monitoring Cholelithiasis w/o cholecystitis -CT abdomen showed cholelithiasis w/o findings suggestive of cholecystitis Hematology Superficial thrombophlebitis of right cephalic and basilic veins -no need for anticoagulation DVT of the left brachial vein -Continue eliquis 2.5mg BID Nephrology YULIANA likely due to VMN resolved Nutrition -Discontinue current enteral nutrition and start Glucerna. Increase in physical therapy to twice a day Goals of care discussed with Chelsea (daughter) via phone for >18min Critical time spent> 48 min Plan discussed with Dr. Honeycutt Plan discussed with: Patient, Other (rn) My Orders My Orders Orders - MAKENNA MARTINEZ RESIDENT Procedure Category Date Status Time * Rent And Housing Investigator CONS 12/25/23 Transmitted Consult D5w 5% (Dextrose 5%) PHA 12/25/23 In Process 11:00 Basic Metabolic Panel LAB 12/26/23 Verified 04:00 Sod Chl 0.45% (Sodium PHA 12/25/23 In Process Chloride 0.45% Via 14:00 Dietary Evaluation Review Comments: 1) If GI is accessible consider Glucerna 1.2 @ 55 ml/hr goal rate as tolerated 2) If pt remains NPO >7 days consider TPN to meet at least 75% of estimated needs 3) Advance pt diet when medically feasible to a CCHO 45g/Cardiac diet modified per [employer] recommendations 4) Continue current plan of care Expected Outcomes/Goals: 1) Pt to receive nutrition support within 7 days of NPO status 2) Pt diet to advance 3) F/U in 2-3 days Date of Service: Dec 25, 2023 Billing Provider: RUBENS HONEYCUTT MD Common Visit Codes: [id number] INP/OBS CARE(HIGH) MAKENNA MARTINEZ RESIDENT Dec 25, 2023 14:59 RUBENS HONEYCUTT MD Dec 25, 2023 15:04
[2023-12-25] MEDS: Glucerna 1.2 Cal 1Liter BOTTLE GT SCH (23:05)
--- NOTE | 2023-12-25 23:53 | DVHPN2 ---
Consult Progress Note Date Seen: Dec 25, 2023 Subjective Patient reports: Feels better (no diarrhea or rash) Objective vital signs Vital Sign Date Time Temp Pulse Resp B/P (MAP) Pulse Ox O2 Delivery O2 Flow Rate FiO2 12/25/23 22:35 81 151/77 12/25/23 21:59 16 96 12/25/23 19:30 98.4 98.4 12/25/23 18:54 Trach Collar 8 30 30 Total Intake and Output 12/24/23 12/24/23 12/25/23 15:00 23:00 07:00 Intake Total 289 ml 0 ml Output Total 1000 ml 600 ml Balance -711 ml -600 ml medications Current Medications Medications Dose Ordered Sig/Leslie Route Start Time Stop Time Status Last Admin Dose Admin Albuterol 2.5 mg Q4HR PRN NEB 12/08/23 19:30 12/25/23 21:51 2.5 MG Ipratropium [place] 0.5 mg Q4HR NEB 12/08/23 22:00 12/25/23 21:51 0.5 MG Ondansetron HCl 4 mg Q4HP PRN IV 12/08/23 19:30 Pantoprazole Sodium 40 mg DAILY IV 12/09/23 10:00 12/25/23 10:41 40 MG Hydralazine HCl 10 mg Q4HP PRN IV 12/09/23 05:30 12/25/23 05:50 10 MG Sodium Chloride 10 ml QSHIFT@, IV 12/09/23 22:00 12/25/23 22:34 10 ML Metoclopramide HCl 5 mg Q6HPRN PRN IV 12/13/23 21:45 Levothyroxine Sodium 112 mcg QAM@0600 PO 12/15/23 06:00 12/25/23 05:49 112 MCG Metoprolol Tartrate 25 mg BID PO 12/16/23 22:00 12/25/23 22:35 25 MG Lorazepam 1 mg Q4H PRN IV 12/17/23 00:15 12/24/23 06:15 1 MG Acetaminophen/ Hydrocodone Bitart 1 tab Q4HP PRN PO 12/22/23 14:15 12/24/23 15:11 1 TAB Acetylcysteine 200 mg Q8HR NEB 12/22/23 22:00 12/25/23 21:51 200 MG Apixaban 2.5 mg BID PO 12/23/23 22:00 12/25/23 22:35 2.5 MG Gabapentin 100 mg BID PO 12/23/23 22:00 12/25/23 22:35 100 MG Acetaminophen 650 mg Q6HP PRN PO 12/23/23 21:15 12/24/23 12:24 650 MG Losartan Potassium 100 mg DAILY PO 12/24/23 07:30 12/25/23 10:43 100 MG Enteral Nutritional Formula 1,000 ml 40ML/HR GT 12/24/23 09:15 12/25/23 23:05 1,000 ML Insulin Glargine 15 units DAILY@1000 SC 12/24/23 13:30 12/25/23 11:05 15 UNITS Diagnostic Test (Pha) 1 strip Q6HR 12/24/23 18:00 12/25/23 23:43 1 STRIP Insulin Human Regular Q6HR SC 12/24/23 18:00 12/25/23 23:44 2 UNITS Dextrose 50 ml UD PRN IV 12/24/23 13:30 Sodium Chloride 1,000 ml @ 65 mls/hr [id number] IV 12/25/23 14:00 12/25/23 14:00 65 MLS/HR PHYSICAL EXAM: - GENERAL: Alert and oriented x 3. No acute distress. Well-nourished. on trach collar - EYES: EOMI. Anicteric. - HENT: Moist mucous membranes. No scleral icterus. No cervical lymphadenopathy. - LUNGS: Clear to auscultation bilaterally. No accessory muscle use. - CARDIOVASCULAR: Regular rate and rhythm. No murmur. No JVD. - ABDOMEN: Soft, non-tender and non-distended. No palpable masses. - EXTREMITIES: No edema. Non-tender.SKIN: No rashes or lesions. Warm. - NEUROLOGIC: No focal neurological deficits. CN II-XII grossly intact, but not individually tested. - PSYCHIATRIC: Cooperative. Appropriate mood and affect. laboratory and microbiology Laboratory Tests 12/25/23 05:55 Test 12/25/23 05:55 Range/Units Serum Glucose 124 H 74-106 mg/dL Problem List/Assessment/Plan Problem List/Assessment/Plan Assessment/Plan Problems(with codes): (1) Hospital-acquired pneumonia (2) COPD (chronic obstructive pulmonary disease) (3) DKA (diabetic ketoacidosis) (4) HTN (hypertension) (5) Closed right hip fracture Plan/Recommendation ASSESSMENT AND PLAN: ID Problem List: - Aspiration pneumonia - Acute respiratory failure - Diabetic Ketoacidosis (DKA) - Sepsis due to UTI vs pneumonia - Acute Kidney Injury (YULIANA) - Hypernatremia - Transaminitis - Fatty liver - Uncontrolled diabetes (A1C of 11.7) - Hypothyroidism - Hypertension - COPD without exacerbation - Chronic kidney disease (CKD) Assessment: This is a 68-year-old female with a past medical history of diabetes, hypertension, recurrent DKA, hypothyroidism, obesity, COPD, neuropathies, mechanical falls, liver cirrhosis, and multiple joint replacements. The patient presented to the ED with acute loss of consciousness on 11/15/2023, subsequently diagnosed with DKA and an upper GI bleed. While at [facility] [place], a CT and MRI of the head showed concerning lesions for metastasis vs. infectious process and gallbladder issues. Due to renal failure, these images were performed without contrast. An ERCP at [facility] showed no gallstones or common bile duct obstruction. Currently, the patient is reintubated on minimal sedation and receiving broad-spectrum antibiotics for presumed meningitis and other infections. 12/09: Patient has had a repeat abdomen, pelvis, chest Ct with contrast which shows no acute findings in the abdomen and pelvis. multifocal airspace in the lungs was shown. 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 12/12: sp trach 12/13: off sedation 12/19: trach 7l,elevated temps 10/4: Sputal culture is showing normal oral pharyngeal jordan, chest X-ray shows clear lungs, yesterdays X-rays show interstitial edema otherwise clear lungs. Recomend patient continue off antibiotics and just do aspiriations. If fever starts , cosider antibiotics for aspiration pnumonia , suspect Pneumonitis Plan: - continue off antibiotics unless fever starts up - sp 3 week vancomycin and ceftriaxone course, will monitor patient off all antibiotics - aspiration precautions - Blood cultures monitoring. - Monitor respiratory status and adjust ventilator settings as necessary. - Monitor and manage blood glucose levels. - Supportive care as needed. Isolation Precautions: Standard Total critical care time: Approximately 59 minutes Due to a high probability of clinically significant, life threatening deterioration, the patient required my highest level of preparedness to intervene emergently and I personally spent this critical care time directly and personally managing the patient. This critical care time included obtaining a history; examining the patient; pulse oximetry; ordering and review of studies; arranging urgent treatment with development of a management plan; evaluation of patient's response to treatment; frequent reassessment; and, discussions with other providers. This critical care time was performed to assess and manage the high probability of imminent, life-threatening deterioration that could result in multi-organ failure. It was exclusive of separately billable procedures and treating other patients and teaching time. Assessment and plan was discussed with the patient as written above. Plan is subject to change pending incorporation of new incoming information/diagnostics. Updates may be added as addendum at the bottom (OR TOP) of this note. Thank you for interesting consult. ID will continue to follow. Please contact Infectious disease for any questions or concerns. Nithin Carrasco M.D. [facility] Ph: ? Plan discussed with: Patient Dietary Evaluation Review Comments: 1) If GI is accessible consider Glucerna 1.2 @ 55 ml/hr goal rate as tolerated 2) If pt remains NPO >7 days consider TPN to meet at least 75% of estimated needs 3) Advance pt diet when medically feasible to a CCHO 45g/Cardiac diet modified per [employer] MA[employer]GER recommendations 4) Continue current plan of care Expected Outcomes/Goals: 1) Pt to receive nutrition support within 7 days of NPO status 2) Pt diet to advance 3) F/U in 2-3 days NITHIN CARRASCO MD Dec 25, 2023 23:53
[2023-12-26] VITALS (23 sets, daily range): BP systolic 144–191; BP diastolic 69–82; PULSE 71–86; RESP 14–24; TEMP 96.5–98.6; O2SAT 89–99
[2023-12-26 06:59] LABS: Alanine Aminotransferase 17 U/L (7-40); Alkaline Phosphatase 162 U/L (46-116); Anion Gap 10 (5-15); BUN/Creatinine Ratio 10.4 (10.0-20.0); Blood Urea Nitrogen 8 mg/dL (9-23); Calcium 9.7 mg/dL (8.7-10.4); Carbon Dioxide 22 mmol/L (20-31); Chloride 110 mmol/L (98-107); Glucose 132 mg/dL (74-106); Potassium 4.2 mmol/L (3.5-5.1); Sodium 142 mmol/L (136-145)
[2023-12-26 07:00] LABS: Albumin 3.5 g/dL (3.2-4.8); Aspartate Aminotransferase 31 U/L (13-40); Bilirubin, Total < 0.2 mg/dL (0.2-1.0); Total Protein 6.4 g/dL (5.7-8.2)
[2023-12-26 07:31] LABS: Basophils # (auto) 0.1 10 ^3/uL (0-0.2); Basophils % (auto) 1.1 % (0.0-2.0); Eosinophils # (auto) 0.6 10 ^3/uL (0-0.8); Mean Corpuscular Hemoglobin 28.8 pg (28.0-32.0); Monocytes # (auto) 0.5 10 ^3/uL (0-1.3); Monocytes % (auto) 6.7 % (0.0-12.0); Neutrophils # (auto) 4.5 10 ^3/uL (1.6-8.6)
[2023-12-26 07:33] LABS: Lymphocytes # (auto) 2.3 10 ^3/uL (0.4-5.4); Lymphocytes % (auto) 28.7 % (10.0-50.0); Mean Corpuscular Hgb Conc. 30.4 g/dL (32.0-36.0); Mean Corpuscular Volume 94.5 fL (80.0-100.0); Neutrophils % (auto) 55.5 % (37.0-80.0); Platelet Count (auto) 460 10^3/uL (140-450); Red Blood Cells 3.49 10^6/uL (4.0-5.20); Red Cell Distribution Width 17.2 % (11.8-14.3)
--- NOTE | 2023-12-26 18:16 | DVHPNRES ---
Progress Note Date Seen: Dec 26, 2023 Resident Creating Document: PHILIP CONNER RESIDENT Has the PT tested + for MRSA If YES, has PT been informed?: No Medical Necessity Reason Pt with a Central, PICC or Fol: Yes The following are medically ne: PICC Line, Carr Catheter Reason for carr catheter: Strict I&O Subjective Review of Systems Hospital course: This is a 68-year-old female with past medical history of hypertension, diabetes mellitus type 2, hypothyroidism, COPD, obesity, diabetic polyneuropathy, liver cirrhosis, right knee replacement, multiple admissions for DKA. The patient was initially seen at [facility] on 11/16/2023 where he was intubated and transferred to our facility. At our facility he was treated for DKA and was found to have space occupying lesions in the brain (metastasis/infection/stroke) MRI of the head was done with no conclusive findings at that time. CT scan of the abdomen and pelvis at that time showed dilation of common bile duct and GI recommended ERCP/endoscopic ultrasound so patient was transferred on 11/26/2023 to [facility]. ERCP and ultrasound was performed showing no obstruction either malignancy or stone at that time. Neurosurgery at [facility] evaluated MRI results and stated that could be due to infarcts. Neurologist was against lumbar puncture due to increased risk of herniation. patient was extubated on November 28, 2023 and was transferred step- down unit with 2 L of nasal cannula but lately on December 02 patient became shortness of breath tachypneic required reintubation. The patient had sepsis of unknown etiology and they thought it might be related to the brain lesions so patient was started on broad-spectrum IV antibiotics with MRSA coverage. Patient was readmitted back at [facility]. Patient seen and examined at bedside. Presence of trach collar, O2 flow rate eight eight. No overnight events noted. Objective vital signs Vital Sign Date Time Temp Pulse Resp B/P (MAP) Pulse Ox O2 Delivery O2 Flow Rate FiO2 12/26/23 18:12 80 16 97 12/26/23 18:08 Trach Collar 8 N/A Cool Aerosol 12/26/23 17:00 160/73 (102) 12/26/23 13:00 97.9 97.9 Total Intake and Output 12/25/23 12/25/23 12/26/23 15:00 23:00 07:00 Intake Total 100 ml 200 ml 0 ml Output Total 700 ml 425 ml Balance 100 ml -500 ml -425 ml medications Current Medications Medications Dose Ordered Sig/Leslie Route Start Time Stop Time Status Last Admin Dose Admin Albuterol 2.5 mg Q4HR PRN NEB 12/08/23 19:30 12/26/23 18:05 2.5 MG Ipratropium [place] 0.5 mg Q4HR NEB 12/08/23 22:00 12/26/23 18:05 0.5 MG Ondansetron HCl 4 mg Q4HP PRN IV 12/08/23 19:30 Pantoprazole Sodium 40 mg DAILY IV 12/09/23 10:00 12/26/23 12:25 40 MG Hydralazine HCl 10 mg Q4HP PRN IV 12/09/23 05:30 12/25/23 05:50 10 MG Sodium Chloride 10 ml QSHIFT@ IV 12/09/23 22:00 12/26/23 12:25 10 ML Metoclopramide HCl 5 mg Q6HPRN PRN IV 12/13/23 21:45 Levothyroxine Sodium 112 mcg QAM@0600 PO 12/15/23 06:00 12/26/23 05:59 112 MCG Metoprolol Tartrate 25 mg BID PO 12/16/23 22:00 12/26/23 12:23 25 MG Lorazepam 1 mg Q4H PRN IV 12/17/23 00:15 12/24/23 06:15 1 MG Acetaminophen/ Hydrocodone Bitart 1 tab Q4HP PRN PO 12/22/23 14:15 12/24/23 15:11 1 TAB Acetylcysteine 200 mg Q8HR NEB 12/22/23 22:00 12/26/23 14:10 200 MG Apixaban 2.5 mg BID PO 12/23/23 22:00 12/26/23 12:24 2.5 MG Gabapentin 100 mg BID PO 12/23/23 22:00 12/26/23 12:24 100 MG Acetaminophen 650 mg Q6HP PRN PO 12/23/23 21:15 12/24/23 12:24 650 MG Losartan Potassium 100 mg DAILY PO 12/24/23 07:30 12/26/23 12:25 100 MG Enteral Nutritional Formula 1,000 ml 40ML/HR GT 12/24/23 09:15 12/25/23 23:05 1,000 ML Insulin Glargine 15 units DAILY@1000 SC 12/24/23 13:30 12/26/23 13:21 15 UNITS Diagnostic Test (Pha) 1 strip Q6HR 12/24/23 18:00 12/26/23 12:25 1 STRIP Insulin Human Regular Q6HR SC 12/24/23 18:00 12/26/23 12:51 3 UNITS Dextrose 50 ml UD PRN IV 12/24/23 13:30 Sodium Chloride 1,000 ml @ 65 mls/hr [id number] IV 12/25/23 14:00 12/26/23 05:50 65 MLS/HR Examination General: Patient opens eyes spontaneously to voice, on trach collar HEENT: Normocephalic, atraumatic, moist mucous membranes, light gag reflex but present. Respiratory/pulmonary: lungs clear Cardiovascular: Regular heart sounds S1 and S2 with no associated murmurs. Abdomen: Abdomen nondistended, there is no pain to palpation in any of the abdominal quadrants, no palpable masses. PEG tube on place with no signs in infection at this time. Extremities: There is no bilateral pleural effusions at this time. Skin: No rashes or pruritus, there is no sacral edema present at this time. laboratory and microbiology Laboratory Tests 12/26/23 06:10 Test 12/26/23 06:10 Range/Units Serum Glucose 132 H 74-106 mg/dL Microbiology Date/Time Source Procedure Growth Status 12/21/23 09:42 Trachea Gram Stain - Final Resulted 12/21/23 09:42 Respiratory Culture - Preliminary Yeast, not [place] albicans Resulted 12/14/23 19:42 Voided Urine Urine Culture - Final Complete 12/09/23 09:28 Blood Blood Culture - Final NO GROWTH AFTER 5 DAYS OF INCUBATION. Complete 12/08/23 19:00 Sputum Gram Stain - Final Complete 12/08/23 19:00 Sputum Respiratory Culture - Final Complete Problem List/Assessment/Plan Problem List/Assessment/Plan Acute metabolic encephalopathy likely in the setting of sepsis versus brain occupying lesions (metastasis/infection/stroke) -patient has a previous MRI at this facility showing no conclusive diagnosis, At [facility] did not got any conclusive diagnosis as well. -failed extubation at [facility] -CT scan of the head performed at this visit show hypodensities in bilateral cerebellum with no acute intracranial abnormalities. -MRI with contrast of the brain should be performed to clarify etiology of brain occupying lesions. Study was hold today due to YULIANA, we will wait for renal function recovery, meanwhile we will try to decrease sedation and assess neurologic response clinically. Brain lessions on MRI w/o contrast, unknown etiology -lab workup performed at [facility] was negative for blastomycosis, tuberculosis, cryptococcosis Polyneuropathy -Continue gabapentin 100mg BID Cardiology Acute on chronic diastolic heart failure (HFpEF 55%) Ruled out endocarditis -YOLANDA performed on 12/10/2023 showed normal cardiac valves with no vegetations at that time. Primary hypertension -Continue losartan 50mg QD -Continue metoprolol 25mg PO BID Respiratory S/P tracheostomy performed today in the morning (12/13/23) -Patient currently on trach collar sat 95% Acute hypoxic respiratory failure likely in the setting of aspiration pneumonia -on trach collar as described above -CT of the chest/abdomen and pelvis showed no acute findings in the abdominal pelvics but showed multifocal airspace disease and cardiomegaly -chest x-ray performed today showed stable pulmonary congestion right lower lobe infiltration can not be excluded -of all antibiotics for now. Infectious Disease on board Sepsis in the setting of aspiration pneumonia resolved -Stop antibiotics according to ID Infectious disease Sepsis likely due to aspiration pneumonia and UTI -stop antibiotics according to ID UTI UA suggestive of UTI but last urine culture showed no growth -Ordered new U/A came back suggesting UTI -Urine culture came back negative Possible brain abscess/infectious occupying lesions -stop antibiotics according to ID Endocrinology Hypothyroidism -continue levothyroxine 112 mcg p.o. daily Hypokalemia 3.4 and Hyponatremia 147 K IV For hyponatremia: D5W was consider but due to hyperglycemia: half NS 65cc/h Type 2 diabetes mellitus, DKA on previous admissions -sliding scale insulin Diabetic polyneuropathy Hypothyroidism -Last TSH was 17.87 -today, ordered free T4 and T3 which came back 0.48 and 0.79 respectively -Continue levothyroxine 112mcgQAM Gastroenterology Acute transaminitis, resolved -Continue monitoring Cholelithiasis w/o cholecystitis -CT abdomen showed cholelithiasis w/o findings suggestive of cholecystitis Hematology Superficial thrombophlebitis of right cephalic and basilic veins -no need for anticoagulation DVT of the left brachial vein -Continue eliquis 2.5mg BID Nephrology YULIANA likely due to VMN resolved Nutrition Severe protein malnutrition -continue nutritional supplement Glucerna -Discontinue current enteral nutrition and start Glucerna. Goals of care discussed with Chelsea (daughter) via phone for >18min: Discussed previously Critical time spent> 41 min Plan discussed with Dr. Honeycutt Plan discussed with: Patient, Other (Rn) Dietary Evaluation Review Comments: 1) If GI is accessible consider Glucerna 1.2 @ 55 ml/hr goal rate as tolerated 2) If pt remains NPO >7 days consider TPN to meet at least 75% of estimated needs 3) Advance pt diet when medically feasible to a CCHO 45g/Cardiac diet modified per [employer] recommendations 4) Continue current plan of care Expected Outcomes/Goals: 1) Pt to receive nutrition support within 7 days of NPO status 2) Pt diet to advance 3) F/U in 2-3 days Date of Service: Dec 26, 2023 Billing Provider: RUBENS HONEYCUTT MD Common Visit Codes: [id number] INP/OBS CARE(HIGH) PHILIP CONNER RESIDENT Dec 26, 2023 18:16 RUBENS HONEYCUTT MD Dec 26, 2023 22:30
--- NOTE | 2023-12-26 22:37 | DVHPN2 ---
Consult Progress Note Date Seen: Dec 27, 2023 Subjective Patient reports: Feels better (no fever or chills, working with physical therapy) Objective vital signs Vital Sign Date Time Temp Pulse Resp B/P (MAP) Pulse Ox O2 Delivery O2 Flow Rate FiO2 12/26/23 21:57 77 16 99 12/26/23 20:18 191/78 8.0 30 12/26/23 18:08 Trach Collar Cool Aerosol 12/26/23 13:00 97.9 97.9 Total Intake and Output 12/25/23 12/25/23 12/26/23 15:00 23:00 07:00 Intake Total 100 ml 200 ml 0 ml Output Total 700 ml 425 ml Balance 100 ml -500 ml -425 ml medications Current Medications Medications Dose Ordered Sig/Leslie Route Start Time Stop Time Status Last Admin Dose Admin Albuterol 2.5 mg Q4HR PRN NEB 12/08/23 19:30 12/26/23 21:50 2.5 MG Ipratropium [place] 0.5 mg Q4HR NEB 12/08/23 22:00 12/26/23 21:50 0.5 MG Ondansetron HCl 4 mg Q4HP PRN IV 12/08/23 19:30 Pantoprazole Sodium 40 mg DAILY IV 12/09/23 10:00 12/26/23 12:25 40 MG Hydralazine HCl 10 mg Q4HP PRN IV 12/09/23 05:30 12/26/23 18:50 10 MG Sodium Chloride 10 ml QSHIFT@10,22 IV 12/09/23 22:00 12/26/23 12:25 10 ML Metoclopramide HCl 5 mg Q6HPRN PRN IV 12/13/23 21:45 Lorazepam 1 mg Q4H PRN IV 12/17/23 00:15 12/24/23 06:15 1 MG Acetaminophen/ Hydrocodone Bitart 1 tab Q4HP PRN PO 12/22/23 14:15 12/24/23 15:11 1 TAB Acetylcysteine 200 mg Q8HR NEB 12/22/23 22:00 12/26/23 21:51 200 MG Acetaminophen 650 mg Q6HP PRN PO 12/23/23 21:15 12/24/23 12:24 650 MG Losartan Potassium 100 mg DAILY PO 12/24/23 07:30 12/26/23 12:25 100 MG Enteral Nutritional Formula 1,000 ml 40ML/HR GT 12/24/23 09:15 12/25/23 23:05 1,000 ML Insulin Glargine 15 units DAILY@1000 SC 12/24/23 13:30 12/26/23 13:21 15 UNITS Diagnostic Test (Pha) 1 strip Q6HR 12/24/23 18:00 12/26/23 18:48 1 STRIP Insulin Human Regular Q6HR SC 12/24/23 18:00 12/26/23 19:11 3 UNITS Dextrose 50 ml UD PRN IV 12/24/23 13:30 Apixaban 2.5 mg BID PEG 12/26/23 22:00 Gabapentin 100 mg BID PEG 12/26/23 22:00 Metoprolol Tartrate 25 mg BID PEG 12/26/23 22:00 Levothyroxine Sodium 112 mcg QAM@0600 PEG 12/27/23 06:00 PHYSICAL EXAM: - GENERAL: Alert and oriented x 3. No acute distress. Well-nourished. on trach collar. Non-verbal - EYES: EOMI. Anicteric. - HENT: Moist mucous membranes. No scleral icterus. No cervical lymphadenopathy. - LUNGS: Forced breath sounds bilaterally. Signs of aspiration - CARDIOVASCULAR: Regular rate and rhythm. No murmur. No JVD. - ABDOMEN: Soft, non-tender and non-distended. No palpable masses. - EXTREMITIES: No edema. Non-tender.SKIN: No rashes or lesions. Warm. - NEUROLOGIC: No focal neurological deficits. CN II-XII grossly intact, but not individually tested. - PSYCHIATRIC: Cooperative. Appropriate mood and affect. laboratory and microbiology Laboratory Tests 12/26/23 06:10 Test 12/26/23 06:10 Range/Units Serum Glucose 132 H 74-106 mg/dL Problem List/Assessment/Plan Problem List/Assessment/Plan Assessment/Plan Problems(with codes): (1) Hospital-acquired pneumonia (2) COPD (chronic obstructive pulmonary disease) (3) DKA (diabetic ketoacidosis) (4) HTN (hypertension) (5) Closed right hip fracture Plan/Recommendation ASSESSMENT AND PLAN: ID Problem List: - Aspiration pneumonia - Acute respiratory failure - Diabetic Ketoacidosis (DKA) - Sepsis due to UTI vs pneumonia - Acute Kidney Injury (YULIANA) - Hypernatremia - Transaminitis - Fatty liver - Uncontrolled diabetes (A1C of 11.7) - Hypothyroidism - Hypertension - COPD without exacerbation - Chronic kidney disease (CKD) Assessment: This is a 68-year-old female with a past medical history of diabetes, hypertension, recurrent DKA, hypothyroidism, obesity, COPD, neuropathies, mechanical falls, liver cirrhosis, and multiple joint replacements. The patient presented to the ED with acute loss of consciousness on 11/15/2023, subsequently diagnosed with DKA and an upper GI bleed. While at [facility], a CT and MRI of the head showed concerning lesions for metastasis vs. infectious process and gallbladder issues. Due to renal failure, these images were performed without contrast. An ERCP at [facility] showed no gallstones or common bile duct obstruction. Currently, the patient is reintubated on minimal sedation and receiving broad-spectrum antibiotics for presumed meningitis and other infections. 12/09: Patient has had a repeat abdomen, pelvis, chest Ct with contrast which shows no acute findings in the abdomen and pelvis. multifocal airspace in the lungs was shown. 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 12/12: sp trach 12/13: off sedation 12/19: trach 7l,elevated temps 10/4: Sputal culture is showing normal oral pharyngeal jordan, chest X-ray shows clear lungs, yesterdays X-rays show interstitial edema otherwise clear lungs. Recomend patient continue off antibiotics and just do aspiriations. If fever starts , cosider antibiotics for aspiration pnumonia , suspect Pneumonitis Plan: - continue off antibiotics unless fever starts up - sp 3 week vancomycin and ceftriaxone course, will monitor patient off all antibiotics - aspiration precautions - Blood cultures monitoring. - Monitor respiratory status and adjust ventilator settings as necessary. - Monitor and manage blood glucose levels. - Supportive care as needed. Isolation Precautions: Standard Total critical care time: Approximately 59 minutes Due to a high probability of clinically significant, life threatening deterioration, the patient required my highest level of preparedness to intervene emergently and I personally spent this critical care time directly and personally managing the patient. This critical care time included obtaining a history; examining the patient; pulse oximetry; ordering and review of studies; arranging urgent treatment with development of a management plan; evaluation of patient's response to treatment; frequent reassessment; and, discussions with other providers. This critical care time was performed to assess and manage the high probability of imminent, life-threatening deterioration that could result in multi-organ failure. It was exclusive of separately billable procedures and treating other patients and teaching time. Assessment and plan was discussed with the patient as written above. Plan is subject to change pending incorporation of new incoming information/diagnostics. Updates may be added as addendum at the bottom (OR TOP) of this note. Thank you for interesting consult. ID will continue to follow. Please contact Infectious disease for any questions or concerns. Nithin Carrasco M.D. [facility] Ph: ? Plan discussed with: Patient Dietary Evaluation Review Comments: 1) If GI is accessible consider Glucerna 1.2 @ 55 ml/hr goal rate as tolerated 2) If pt remains NPO >7 days consider TPN to meet at least 75% of estimated needs 3) Advance pt diet when medically feasible to a CCHO 45g/Cardiac diet modified per CUSTOMER RELATIONS ASSISTANT recommendations 4) Continue current plan of care Expected Outcomes/Goals: 1) Pt to receive nutrition support within 7 days of NPO status 2) Pt diet to advance 3) F/U in 2-3 days NITHIN CARRASCO MD Dec 26, 2023 22:37
[2023-12-26] MEDS: GABAPENTIN 100 MG CAP PEG SCH (23:00)
[2023-12-26] MEDS: APIXABAN 2.5 MG TAB PEG SCH (23:00)
[2023-12-26] MEDS: METOPROLOL TARTRATE 25 MG TAB PEG SCH (23:02)
[2023-12-27] VITALS (20 sets, daily range): BP systolic 105–182; BP diastolic 44–81; PULSE 69–86; RESP 14–18; TEMP 97.1–98.5; O2SAT 91–99
[2023-12-27] MEDS: LEVOTHYROXINE SODIUM 112 MCG TAB PEG SCH (05:21)
--- NOTE | 2023-12-27 07:00 | DVH ---
CHEST RADIOGRAPH Indication:reevaluate Technique: Single frontal view of the chest was obtained Comparison: XY CHEST XRAY 1 VIEW on DOS: 12/24/23 FINDINGS: Lines and Tubes: Tracheostomy tube is unchanged. Left PICC terminates in the superior vena cava. Lungs: Mild pulmonary congestion is unchanged. Pleura: No effusion. No pneumothorax. Cardiomediastinal contours: Stable. Bones: No acute osseous abnormality. IMPRESSION: 1. Mild pulmonary congestion, unchanged.
--- NOTE | 2023-12-27 12:14 | DVHPNRES ---
Progress Note Date Seen: Dec 27, 2023 Resident Creating Document: DANELLE MENDIETA RESIDENT Has the PT tested + for MRSA If YES, has PT been informed?: No Medical Necessity Reason Pt with a Central, PICC or Fol: Yes The following are medically ne: PICC Line, Carr Catheter Reason for carr catheter: Strict I&O Subjective Review of Systems This is a 68-year-old female with past medical history of hypertension, diabetes mellitus type 2, hypothyroidism, COPD, obesity, diabetic polyneuropathy, liver cirrhosis, right knee replacement, multiple admissions for DKA. The patient was initially seen at [facility] on 11/16/2023 where he was intubated and transferred to our facility. At our facility he was treated for DKA and was found to have space occupying lesions in the brain (metastasis/infection/stroke) MRI of the head was done with no conclusive findings at that time. CT scan of the abdomen and pelvis at that time showed dilation of common bile duct and GI recommended ERCP/endoscopic ultrasound so patient was transferred on 11/26/2023 to [facility]. ERCP and ultrasound was performed showing no obstruction either malignancy or stone at that time. Neurosurgery at [facility] evaluated MRI results and stated that could be due to infarcts. Neurologist was against lumbar puncture due to increased risk of herniation. patient was extubated on November 28, 2023 and was transferred step-down unit with 2 L of nasal cannula but lately on December 02 patient became shortness of breath tachypneic required reintubation. The patient had sepsis of unknown etiology and they thought it might be related to the brain lesions so patient was started on broad-spectrum IV antibiotics with MRSA coverage. Patient was readmitted back at [facility]. Patient seen and examined at bedside. Patient is on trach collar on 7 L of oxygen with an FiO2 of 35% saturating 93%. Patient still on enteral nutrition at 40 cc/hour, apixaban 2.5 mg b.i.d., metoprolol tartrate 25 mg b.i.d. and levothyroxine 112 mcg q.a.m.. This morning, when asking about pain she was nodding her head stating that there was some source of pain. When asking individual questions patient stated that had chest pain. I spoke with daughter Chelsea regarding insurance status to see if we could make her elegible for LTACH. Otherwise patient is doing well overall. ROS Constitutional: Denies weight loss, fever and chills. HEENT: Denies changes in vision and hearing. Respiratory: Denies shortness of breath and cough Cardiovascular: Reports chest discomfort but denies palpitation GI: Reports mild abdominal discomfort. Denies nausea, vomiting and diarrhea. : Denies dysuria and urinary frequency. Musculoskeletal: Denies myalgias and joint pain Skin: Denies rash and pruritus. Neurological: Denies dizziness, headache, vision or hearing problems Objective vital signs Vital Sign Date Time Temp Pulse Resp B/P (MAP) Pulse Ox O2 Delivery O2 Flow Rate FiO2 12/27/23 10:05 145/75 12/27/23 10:04 98.0 12/27/23 10:03 74 12/27/23 09:49 16 95 12/27/23 09:43 Trach Collar 8.0 12/27/23 09:43 N/A Total Intake and Output 12/26/23 12/26/23 12/27/23 15:00 23:00 07:00 Intake Total 1000 ml 999 ml Output Total 800 ml 451 ml Balance 200 ml 548 ml medications Current Medications Medications Dose Ordered Sig/Leslie Route Start Time Stop Time Status Last Admin Dose Admin Albuterol 2.5 mg Q4HR PRN NEB 12/08/23 19:30 12/27/23 09:43 2.5 MG Ipratropium [place] 0.5 mg Q4HR NEB 12/08/23 22:00 12/27/23 09:43 0.5 MG Ondansetron HCl 4 mg Q4HP PRN IV 12/08/23 19:30 Pantoprazole Sodium 40 mg DAILY IV 12/09/23 10:00 12/26/23 12:25 40 MG Hydralazine HCl 10 mg Q4HP PRN IV 12/09/23 05:30 12/27/23 01:43 10 MG Sodium Chloride 10 ml QSHIFT@ IV 12/09/23 22:00 12/27/23 10:02 10 ML Metoclopramide HCl 5 mg Q6HPRN PRN IV 12/13/23 21:45 Lorazepam 1 mg Q4H PRN IV 12/17/23 00:15 12/24/23 06:15 1 MG Acetaminophen/ Hydrocodone Bitart 1 tab Q4HP PRN PO 12/22/23 14:15 12/24/23 15:11 1 TAB Acetylcysteine 200 mg Q8HR NEB 12/22/23 22:00 12/27/23 05:56 200 MG Acetaminophen 650 mg Q6HP PRN PO 12/23/23 21:15 12/27/23 10:04 650 MG Losartan Potassium 100 mg DAILY PO 12/24/23 07:30 12/27/23 10:05 100 MG Enteral Nutritional Formula 1,000 ml 40ML/HR GT 12/24/23 09:15 12/27/23 04:56 1,000 ML Insulin Glargine 15 units DAILY@1000 SC 12/24/23 13:30 12/27/23 10:27 15 UNITS Diagnostic Test (Pha) 1 strip Q6HR 12/24/23 18:00 12/27/23 05:35 1 STRIP Insulin Human Regular Q6HR SC 12/24/23 18:00 12/27/23 05:37 6 UNITS Dextrose 50 ml UD PRN IV 12/24/23 13:30 Apixaban 2.5 mg BID PEG 12/26/23 22:00 12/27/23 10:05 2.5 MG Gabapentin 100 mg BID PEG 12/26/23 22:00 12/27/23 10:02 100 MG Metoprolol Tartrate 25 mg BID PEG 12/26/23 22:00 12/27/23 10:03 25 MG Levothyroxine Sodium 112 mcg QAM@0600 PEG 12/27/23 06:00 12/27/23 05:21 112 MCG Examination Physical Examination: General: Patient opens eyes spontaneously to voice, on trach collar at 7L of O2, FIO2 35% sat 93% HEENT: Normocephalic, atraumatic, moist mucous membranes, light gag reflex but present. Respiratory/pulmonary: There are bilateral coarse sounds on both lungs, no wheezes at this time. Cardiovascular: Regular heart sounds S1 and S2 with no associated murmurs. Abdomen: Abdomen nondistended, there is mild pain to palpation to the epigastric region, no palpable masses. PEG tube on place with no signs in infection at this time. Extremities: There is no bilateral pleural effusions at this time. Peripheral Pulses: 3+ Radial (R). 3+ Radial (L). 3+ Dorsalis pedis (R). 3+ Dorsalis pedis(L) Skin: No rashes or pruritus, there is no sacral edema present at this time. Neurological: Cranial nerves not able to evaluate independently. Patient responds to verbal stimuli and not head answering simple questions. Patient started moving bilateral upper extremities. laboratory and microbiology Laboratory Tests 12/26/23 06:10 Test 12/26/23 06:10 Range/Units Serum Glucose 132 H 74-106 mg/dL Microbiology Date/Time Source Procedure Growth Status 12/21/23 09:42 Trachea Gram Stain - Final Complete 12/21/23 09:42 Respiratory Culture - Final Yeast, not [place] albicans Complete 12/14/23 19:42 Voided Urine Urine Culture - Final Complete 12/09/23 09:28 Blood Blood Culture - Final NO GROWTH AFTER 5 DAYS OF INCUBATION. Complete 12/08/23 19:00 Sputum Gram Stain - Final Complete 12/08/23 19:00 Sputum Respiratory Culture - Final Complete Problem List/Assessment/Plan Problem List/Assessment/Plan Assessment/Plan Neurology Acute metabolic encephalopathy likely in the setting of sepsis versus brain occupying lesions (metastasis/infection/stroke) -patient has a previous MRI at this facility showing no conclusive diagnosis, At [facility] did not got any conclusive diagnosis as well. -failed extubation at [facility] -CT scan of the head performed at this visit show hypodensities in bilateral cerebellum with no acute intracranial abnormalities. -MRI with contrast of the brain should be performed to clarify etiology of brain occupying lesions. Study was hold today due to YULIANA, we will wait for renal function recovery, meanwhile we will try to decrease sedation and assess neurologic response clinically. -Will order MRI of the brain with contrast (cancel it since neurology recommended MRI SPECT tomography of the brain which could not be performed at this facility) Brain lessions on MRI w/o contrast, unknown etiology -we will perform brain MRI with contrast once kidney function recovers. -lab workup performed at [facility] was negative for blastomycosis, tuberculosis, cryptococcosis Polyneuropathy -Continue gabapentin 100mg BID Sedation -OFF sedation Not on vasopressors at this time. Cardiology Acute on chronic diastolic heart failure (HFpEF 55%) -Both echocardiograms TTE YOLANDA were performed showing no vegetations or cardiac valve abn. Ruled out endocarditis -YOLANDA performed on 12/10/2023 showed normal cardiac valves with no vegetations at that time. Primary hypertension -Continue losartan 50mg QD -Continue metoprolol 25mg PO BID Respiratory S/P tracheostomy performed today in the morning (12/13/23) -Patient currently on trach collar on 7 L of O2 sat 97% on FIO2 35% Acute hypoxic respiratory failure likely in the setting of aspiration pneumonia -IV Unasyn was discontinued -on tarach collar as described above -CT of the chest/abdomen and pelvis showed no acute findings in the abdominal pelvics but showed multifocal airspace disease and cardiomegaly -chest x-ray performed today showed stable pulmonary congestion right lower lobe infiltration can not be excluded -Physical therapy working with the patient now placed order for twice a day. Sepsis in the setting of aspiration pneumonia -continue IV antibiotics as described above Infectious disease Sepsis likely due to aspiration pneumonia and UTI -Completed abs treatment UTI UA suggestive of UTI but last urine culture showed no growth -Ordered new U/A came back suggesting UTI -Urine culture came back negative Possible brain abscess/infectious occupying lesions -completed IV Unasyn treatment Endocrinology Type 2 diabetes mellitus, DKA on previous admissions -start moderate sliding scale insulin -start Lantus 15 units q.a.m. -Not on Lantus at this time Diabetic polyneuropathy -Patient sedated, monitor Hypothyroidism -Last TSH was 17.87 -today, ordered free T4 and T3 which came back 0.48 and 0.79 respectively -Continue levothyroxine 112mcgQAM Gastroenterology Acute transaminitis, resolved -AST 20, ALT 16 -Continue monitoring Cholelithiasis w/o cholecystitis -CT abdomen showed cholelithiasis w/o findings suggestive of cholecystitis Hematology Superficial thrombophlebitis of right cephalic and basilic veins -no need for anticoagulation DVT of the left brachial vein -Continue eliquis 2.5mg BID Nephrology YULIANA likely due to VMN -today, creatinine is 0.86 and BUN 11 -Monitor kidney function Nutrition -Discontinue current enteral nutrition and start Glucerna. Increase in physical therapy to twice a day Lines: Midline of right upper arm placed on 12/08/2023 (Removed) PICC line on left upper arm placed on 12/09/2023 Goals of care discussed with Chelsea (daughter) via phone for >20min Critical time spent> 36 min Plan discussed with Dr. Razo Plan discussed with: Daughter (Plan discussed with the daughter via phone agreed and understood.) My Orders My Orders Orders - DANELLE MENDIETA RESIDENT Procedure Category Date Status Time Complete Blood Count LAB 12/27/23 Logged 04:00 Comprehensive LAB 12/27/23 Logged Metabolic Panel 04:00 Magnesium LAB 12/27/23 Logged 04:00 Phosphorus LAB 12/27/23 Logged 04:00 Chest Xray 1 View XY 12/27/23 Resulted 04:00 Gabapentin Capsule PHA 12/26/23 In Process (Neurontin Capsule) 22:00 Levothyroxine Tablet PHA 12/27/23 In Process (Synthroid Tablet) 06:00 Dietary Evaluation Review Comments: 1) If GI is accessible consider Glucerna 1.2 @ 55 ml/hr goal rate as tolerated 2) If pt remains NPO >7 days consider TPN to meet at least 75% of estimated needs 3) Advance pt diet when medically feasible to a CCHO 45g/Cardiac diet modified per [employer] recommendations 4) Continue current plan of care Expected Outcomes/Goals: 1) Pt to receive nutrition support within 7 days of NPO status 2) Pt diet to advance 3) F/U in 2-3 days Date of Service: Dec 27, 2023 Billing Provider: FREEDOM RAZO MD Common Visit Codes: [id number] CARE 30-74 MIN DANELLE MENDIETA RESIDENT Dec 27, 2023 12:14 FREEDOM RAZO MD Dec 28, 2023 14:36
[2023-12-27 16:40] LABS: Basophils # (auto) 0 10 ^3/uL (0-0.2); Basophils % (auto) 0.5 % (0.0-2.0); Monocytes # (auto) 0.4 10 ^3/uL (0-1.3); Monocytes % (auto) 6.4 % (0.0-12.0)
[2023-12-27 16:42] LABS: Eosinophils # (auto) 0.4 10 ^3/uL (0-0.8); Eosinophils % (auto) 6.4 % (0.0-7.0); Hematocrit 31.6 % (36.0-46.0); Lymphocytes # (auto) 2.7 10 ^3/uL (0.4-5.4); Lymphocytes % (auto) 38.9 % (10.0-50.0); Mean Corpuscular Hemoglobin 28.5 pg (28.0-32.0); Mean Corpuscular Hgb Conc. 31.7 g/dL (32.0-36.0); Mean Corpuscular Volume 89.9 fL (80.0-100.0); Neutrophils # (auto) 3.3 10 ^3/uL (1.6-8.6); Neutrophils % (auto) 47.8 % (37.0-80.0); Nucleated Red Blood Cells % 0.4 %; Platelet Count (auto) 500 10^3/uL (140-450); Red Blood Cells 3.52 10^6/uL (4.0-5.20); Red Cell Distribution Width 16.9 % (11.8-14.3)
[2023-12-27 16:53] LABS: Alanine Aminotransferase 16 U/L (7-40); Alkaline Phosphatase 164 U/L (46-116); Anion Gap 7 (5-15); BUN/Creatinine Ratio 12.8 (10.0-20.0); Blood Urea Nitrogen 11 mg/dL (9-23); Calcium 9.7 mg/dL (8.7-10.4); Carbon Dioxide 26 mmol/L (20-31); Chloride 106 mmol/L (98-107); Glucose 154 mg/dL (74-106); Magnesium 1.7 mg/dL (1.6-2.6); Potassium 4.4 mmol/L (3.5-5.1); Sodium 139 mmol/L (136-145)
[2023-12-27 16:54] LABS: Albumin 3.6 g/dL (3.2-4.8); Aspartate Aminotransferase 25 U/L (13-40); Bilirubin, Total < 0.2 mg/dL (0.2-1.0); Phosphorus 3.6 mg/dL (2.4-5.1)
[2023-12-27 16:55] LABS: Total Protein 6.5 g/dL (5.7-8.2)
--- NOTE | 2023-12-27 20:44 | DVHPN2 ---
Consult Progress Note Date Seen: Dec 27, 2023 Subjective Patient reports: Feels worse (indorsing ongoing pain and needing nasal canula ) Objective vital signs Vital Sign Date Time Temp Pulse Resp B/P (MAP) Pulse Ox O2 Delivery O2 Flow Rate FiO2 12/27/23 18:26 76 18 97 12/27/23 18:16 Trach Collar 8 30 30 12/27/23 17:00 97.1 120/58 (78) 97.1 Total Intake and Output 12/26/23 12/26/23 12/27/23 15:00 23:00 07:00 Intake Total 1000 ml 999 ml Output Total 800 ml 451 ml Balance 200 ml 548 ml medications Current Medications Medications Dose Ordered Sig/Leslie Route Start Time Stop Time Status Last Admin Dose Admin Albuterol 2.5 mg Q4HR PRN NEB 12/08/23 19:30 12/27/23 18:16 2.5 MG Ipratropium [place] 0.5 mg Q4HR NEB 12/08/23 22:00 12/27/23 18:16 0.5 MG Ondansetron HCl 4 mg Q4HP PRN IV 12/08/23 19:30 Pantoprazole Sodium 40 mg DAILY IV 12/09/23 10:00 12/26/23 12:25 40 MG Hydralazine HCl 10 mg Q4HP PRN IV 12/09/23 05:30 12/27/23 01:43 10 MG Sodium Chloride 10 ml QSHIFT@10,22 IV 12/09/23 22:00 12/27/23 10:02 10 ML Metoclopramide HCl 5 mg Q6HPRN PRN IV 12/13/23 21:45 Lorazepam 1 mg Q4H PRN IV 12/17/23 00:15 12/24/23 06:15 1 MG Acetaminophen/ Hydrocodone Bitart 1 tab Q4HP PRN PO 12/22/23 14:15 12/27/23 13:56 1 TAB Acetylcysteine 200 mg Q8HR NEB 12/22/23 22:00 12/27/23 13:20 200 MG Acetaminophen 650 mg Q6HP PRN PO 12/23/23 21:15 12/27/23 10:04 650 MG Losartan Potassium 100 mg DAILY PO 12/24/23 07:30 12/27/23 10:05 100 MG Enteral Nutritional Formula 1,000 ml 40ML/HR GT 12/24/23 09:15 12/27/23 04:56 1,000 ML Insulin Glargine 15 units DAILY@1000 SC 12/24/23 13:30 12/27/23 10:27 15 UNITS Diagnostic Test (Pha) 1 strip Q6HR 12/24/23 18:00 12/27/23 18:00 1 STRIP Insulin Human Regular Q6HR SC 12/24/23 18:00 12/27/23 18:52 3 UNITS Dextrose 50 ml UD PRN IV 12/24/23 13:30 Apixaban 2.5 mg BID PEG 12/26/23 22:00 12/27/23 10:05 2.5 MG Gabapentin 100 mg BID PEG 12/26/23 22:00 12/27/23 10:02 100 MG Metoprolol Tartrate 25 mg BID PEG 12/26/23 22:00 12/27/23 10:03 25 MG Levothyroxine Sodium 112 mcg QAM@0600 PEG 12/27/23 06:00 12/27/23 05:21 112 MCG PHYSICAL EXAM: - GENERAL: Alert and oriented x 3. No acute distress. Well-nourished. on trach collar. Non-verbal - EYES: EOMI. Anicteric. - HENT: Moist mucous membranes. No scleral icterus. No cervical lymphadenopathy. - LUNGS: Forced breath sounds bilaterally. Signs of aspiration - CARDIOVASCULAR: Regular rate and rhythm. No murmur. No JVD. - ABDOMEN: Soft, non-tender and non-distended. No palpable masses. - EXTREMITIES: No edema. Non-tender.SKIN: No rashes or lesions. Warm. - NEUROLOGIC: No focal neurological deficits. CN II-XII grossly intact, but not individually tested. - PSYCHIATRIC: Cooperative. Appropriate mood and affect. laboratory and microbiology Laboratory Tests 12/27/23 16:24 Test 12/27/23 16:24 Range/Units Serum Glucose 154 H 74-106 mg/dL Problem List/Assessment/Plan Problems(with codes): (1) COPD (chronic obstructive pulmonary disease) (2) HTN (hypertension) (3) DKA (diabetic ketoacidosis) (4) Hospital-acquired pneumonia (5) Closed right hip fracture Problem List/Assessment/Plan Assessment/Plan Problems(with codes): (1) Hospital-acquired pneumonia (2) COPD (chronic obstructive pulmonary disease) (3) DKA (diabetic ketoacidosis) (4) HTN (hypertension) (5) Closed right hip fracture Plan/Recommendation ASSESSMENT AND PLAN: ID Problem List: - Aspiration pneumonia - Acute respiratory failure - Diabetic Ketoacidosis (DKA) - Sepsis due to UTI vs pneumonia - Acute Kidney Injury (YULIANA) - Hypernatremia - Transaminitis - Fatty liver - Uncontrolled diabetes (A1C of 11.7) - Hypothyroidism - Hypertension - COPD without exacerbation - Chronic kidney disease (CKD) Assessment: This is a 68-year-old female with a past medical history of diabetes, hypertension, recurrent DKA, hypothyroidism, obesity, COPD, neuropathies, mechanical falls, liver cirrhosis, and multiple joint replacements. The patient presented to the ED with acute loss of consciousness on 11/15/2023, subsequently diagnosed with DKA and an upper GI bleed. While at [facility], a CT and MRI of the head showed concerning lesions for metastasis vs. infectious process and gallbladder issues. Due to renal failure, these images were performed without contrast. An ERCP at [facility] showed no gallstones or common bile duct obstruction. Currently, the patient is reintubated on minimal sedation and receiving broad-spectrum antibiotics for presumed meningitis and other infections. 12/09: Patient has had a repeat abdomen, pelvis, chest Ct with contrast which shows no acute findings in the abdomen and pelvis. multifocal airspace in the lungs was shown. 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 12/12: sp trach 12/13: off sedation 12/19: trach 7l,elevated temps 12/23: Sputal culture is showing normal oral pharyngeal jordan, chest X-ray shows clear lungs, yesterdays X-rays show interstitial edema otherwise clear lungs. Recomend patient continue off antibiotics and just do aspiriations. If fever starts , cosider antibiotics for aspiration pnumonia , suspect Pneumonitis 12/26: Peg tube feeding were stopped , soft abdomen and having bowel movements. Chest X-ray shows mild pulmonary congestion. Otherwise patient is stable with no fevers Plan: - continue off antibiotics unless fever starts up - sp 3 week vancomycin and ceftriaxone course, will monitor patient off all antibiotics - aspiration precautions - Blood cultures monitoring. - Monitor respiratory status and adjust ventilator settings as necessary. - Monitor and manage blood glucose levels. - Supportive care as needed. Plan discussed with: Other Dietary Evaluation Review Comments: 1) If GI is accessible consider Glucerna 1.2 @ 55 ml/hr goal rate as tolerated 2) If pt remains NPO >7 days consider TPN to meet at least 75% of estimated needs 3) Advance pt diet when medically feasible to a CCHO 45g/Cardiac diet modified per [employer] recommendations 4) Continue current plan of care Expected Outcomes/Goals: 1) Pt to receive nutrition support within 7 days of NPO status 2) Pt diet to advance 3) F/U in 2-3 days NITHIN ANAYA MD Dec 27, 2023 20:43
[2023-12-28] VITALS (18 sets, daily range): BP systolic 91–158; BP diastolic 50–78; PULSE 59–80; RESP 16–18; TEMP 97.5–98.7; O2SAT 72–99
[2023-12-28 06:11] LABS: Anion Gap 10 (5-15); Carbon Dioxide 22 mmol/L (20-31); Chloride 106 mmol/L (98-107); Potassium 4.1 mmol/L (3.5-5.1); Sodium 138 mmol/L (136-145)
[2023-12-28 06:12] LABS: Calcium 9.8 mg/dL (8.7-10.4)
[2023-12-28 06:16] LABS: Glucose 221 mg/dL (74-106)
[2023-12-28 06:17] LABS: BUN/Creatinine Ratio 11.6 (10.0-20.0); Blood Urea Nitrogen 10 mg/dL (9-23); Magnesium 1.8 mg/dL (1.6-2.6)
[2023-12-28 06:24] LABS: Basophils # (auto) 0.1 10 ^3/uL (0-0.2); Basophils % (auto) 1.5 % (0.0-2.0); Eosinophils # (auto) 0.4 10 ^3/uL (0-0.8); Eosinophils % (auto) 6.8 % (0.0-7.0); Hematocrit 34.8 % (36.0-46.0); Hemoglobin 10.9 g/dL (12.2-16.2); Lymphocytes # (auto) 2.1 10 ^3/uL (0.4-5.4); Lymphocytes % (auto) 32.5 % (10.0-50.0); Mean Corpuscular Hemoglobin 28.1 pg (28.0-32.0); Mean Corpuscular Hgb Conc. 31.3 g/dL (32.0-36.0); Mean Corpuscular Volume 89.9 fL (80.0-100.0); Monocytes # (auto) 0.5 10 ^3/uL (0-1.3); Neutrophils # (auto) 3.4 10 ^3/uL (1.6-8.6); Neutrophils % (auto) 52.2 % (37.0-80.0); Nucleated Red Blood Cells % 0.3 %; Platelet Count (auto) 422 10^3/uL (140-450); Red Blood Cells 3.87 10^6/uL (4.0-5.20); Red Cell Distribution Width 16.8 % (11.8-14.3); White Blood Cell 6.5 10^3/uL (4.4-10.8)
--- NOTE | 2023-12-28 07:22 | DVH ---
CHEST RADIOGRAPH Indication:reevaluate Technique: Single frontal view of the chest was obtained Comparison: XY CHEST XRAY 1 VIEW on DOS: 12/27/23 FINDINGS: Lines and Tubes: There is a tracheostomy tube, unchanged. Left PICC terminates in the superior vena cava. Lungs: Stable mild pulmonary congestion. Pleura: No effusion. No pneumothorax. Cardiomediastinal contours: Stable. Bones: No acute osseous abnormality. IMPRESSION: 1. Stable mild pulmonary congestion.
[2023-12-28] MEDS: MAGNESIUM SULFATE 1GM/100ML 100 ML IV ONE (08:34)
[2023-12-28] MEDS: LOSARTAN POTASSIUM 25 MG TAB PEG SCH (10:16)
--- NOTE | 2023-12-28 11:12 | DVHPNRES ---
Progress Note Date Seen: Dec 28, 2023 Resident Creating Document: DANELLE MENDIETA RESIDENT Has the PT tested + for MRSA If YES, has PT been informed?: No Medical Necessity Reason Pt with a Central, PICC or Fol: Yes The following are medically ne: PICC Line, Carr Catheter Reason for carr catheter: Strict I&O Subjective Review of Systems This is a 68-year-old female with past medical history of hypertension, diabetes mellitus type 2, hypothyroidism, COPD, obesity, diabetic polyneuropathy, liver cirrhosis, right knee replacement, multiple admissions for DKA. The patient was initially seen at [facility] on 11/16/2023 where he was intubated and transferred to our facility. At our facility he was treated for DKA and was found to have space occupying lesions in the brain (metastasis/infection/stroke) MRI of the head was done with no conclusive findings at that time. CT scan of the abdomen and pelvis at that time showed dilation of common bile duct and GI recommended ERCP/endoscopic ultrasound so patient was transferred on 11/26/2023 to [place]. ERCP and ultrasound was performed showing no obstruction either malignancy or stone at that time. Neurosurgery at [place] evaluated MRI results and stated that could be due to infarcts. Neurologist was against lumbar puncture due to increased risk of herniation. patient was extubated on November 28, 2023 and was transferred step-down unit with 2 L of nasal cannula but lately on December 02 patient became shortness of breath tachypneic required reintubation. The patient had sepsis of unknown etiology and they thought it might be related to the brain lesions so patient was started on broad-spectrum IV antibiotics with MRSA coverage. Patient was readmitted back at [facility]. Patient seen and examined at bedside. There were no major issues overnight and the patient looks stable overall. Patient is currently on no sedation at this time, no vasopressor currently on trach collar at 8 L of oxygen with FiO2 of 30% saturating 96%. Patient is responding to simple questions, opening eyes to her name and understands everything that he has spoken to her. Patient is slightly moving bilateral upper extremities. Physical therapist working with the patient twice a day. Daughter Chelsea is aware of current patient's status we will continue current medical management at this time. ROS Constitutional: Denies weight loss, fever and chills. HEENT: Denies changes in vision and hearing. Respiratory: Denies shortness of breath and cough Cardiovascular: Denies chest discomfort or palpitations GI: Denies abdominal pain, nausea, vomiting and diarrhea. : Denies dysuria and urinary frequency. Musculoskeletal: Denies myalgias and joint pain Skin: Denies rash and pruritus. Neurological: Denies dizziness, headache, vision or hearing problems Objective vital signs Vital Sign Date Time Temp Pulse Resp B/P (MAP) Pulse Ox O2 Delivery O2 Flow Rate FiO2 12/28/23 10:16 122/57 12/28/23 10:16 77 12/28/23 09:49 16 95 12/28/23 09:43 Trach Collar 8.0 12/28/23 09:43 30 30 12/28/23 09:00 97.5 97.5 Total Intake and Output 12/27/23 12/27/23 12/28/23 15:00 23:00 07:00 Intake Total 120 ml 480 ml 0 ml Output Total 250 ml 300 ml Balance 120 ml 230 ml -300 ml medications Current Medications Medications Dose Ordered Sig/Leslie Route Start Time Stop Time Status Last Admin Dose Admin Albuterol 2.5 mg Q4HR PRN NEB 12/08/23 19:30 12/28/23 09:43 2.5 MG Ipratropium [place] 0.5 mg Q4HR NEB 12/08/23 22:00 12/28/23 09:43 0.5 MG Ondansetron HCl 4 mg Q4HP PRN IV 12/08/23 19:30 Pantoprazole Sodium 40 mg DAILY IV 12/09/23 10:00 12/28/23 10:14 40 MG Hydralazine HCl 10 mg Q4HP PRN IV 12/09/23 05:30 12/28/23 01:03 10 MG Sodium Chloride 10 ml QSHIFT@10,22 IV 12/09/23 22:00 12/27/23 22:31 10 ML Metoclopramide HCl 5 mg Q6HPRN PRN IV 12/13/23 21:45 Lorazepam 1 mg Q4H PRN IV 12/17/23 00:15 12/24/23 06:15 1 MG Acetaminophen/ Hydrocodone Bitart 1 tab Q4HP PRN PO 12/22/23 14:15 12/28/23 05:16 1 TAB Acetylcysteine 200 mg Q8HR NEB 12/22/23:00 12/28/23 06:57 200 MG Acetaminophen 650 mg Q6HP PRN PO 12/23/23 21:15 12/27/23 10:04 650 MG Enteral Nutritional Formula 1,000 ml 40ML/HR GT 12/24/23 09:15 12/28/23 05:16 1,000 ML Insulin Glargine 15 units DAILY@1000 SC 12/24/23 13:30 12/28/23 10:18 15 UNITS Diagnostic Test (Pha) 1 strip Q6HR 12/24/23 18:00 12/28/23 05:15 1 STRIP Insulin Human Regular Q6HR SC 12/24/23 18:00 12/28/23 05:39 6 UNITS Dextrose 50 ml UD PRN IV 12/24/23 13:30 Apixaban 2.5 mg BID PEG 12/26/23 22:00 12/28/23 10:14 2.5 MG Gabapentin 100 mg BID PEG 12/26/23 22:00 12/28/23 10:15 100 MG Metoprolol Tartrate 25 mg BID PEG 12/26/23 22:00 12/28/23 10:16 25 MG Levothyroxine Sodium 112 mcg QAM@0600 PEG 12/27/23 06:00 12/28/23 05:16 112 MCG Losartan Potassium 100 mg DAILY PEG 12/28/23 10:00 12/28/23 10:16 100 MG Examination Physical Examination: General: Patient opens eyes spontaneously to voice, on trach collar at 8L of O2, FIO2 30% sat 93% HEENT: Normocephalic, atraumatic, moist mucous membranes, light gag reflex but present. Respiratory/pulmonary: Bilateral lung sounds grossly clear, no major crackles or wheezes at this time. Cardiovascular: Regular heart sounds S1 and S2 with no associated murmurs. Abdomen: Abdomen nondistended, there is mild pain to palpation to the epigastric region, no palpable masses. PEG tube on place with no signs in infection at this time. Extremities: There is no bilateral pleural effusions at this time. Peripheral Pulses: 3+ Radial (R). 3+ Radial (L). 3+ Dorsalis pedis (R). 3+ Dorsalis pedis(L) Skin: No rashes or pruritus, there is no sacral edema present at this time. Neurological: Cranial nerves not able to evaluate independently. Patient responds to verbal stimuli and not head answering simple questions. Patient is slightly moving bilateral upper extremities. laboratory and microbiology Laboratory Tests 12/28/23 04:51 Test 12/28/23 04:51 Range/Units Serum Glucose 221 H 74-106 mg/dL Microbiology Date/Time Source Procedure Growth Status 12/21/23 09:42 Trachea Gram Stain - Final Complete 12/21/23 09:42 Respiratory Culture - Final Yeast, not [place] albicans Complete 12/14/23 19:42 Voided Urine Urine Culture - Final Complete 12/09/23 09:28 Blood Blood Culture - Final NO GROWTH AFTER 5 DAYS OF INCUBATION. Complete 12/08/23 19:00 Sputum Gram Stain - Final Complete 12/08/23 19:00 Sputum Respiratory Culture - Final Complete Problem List/Assessment/Plan Problem List/Assessment/Plan Assessment/Plan Neurology Acute metabolic encephalopathy likely in the setting of sepsis versus brain occupying lesions (metastasis/infection/stroke) -patient has a previous MRI at this facility showing no conclusive diagnosis, At [facility] did not got any conclusive diagnosis as well. -failed extubation at [facility] -CT scan of the head performed at this visit show hypodensities in bilateral cerebellum with no acute intracranial abnormalities. -MRI with contrast of the brain should be performed to clarify etiology of brain occupying lesions. Study was hold today due to YULIANA, we will wait for renal function recovery, meanwhile we will try to decrease sedation and assess neurologic response clinically. -Will order MRI of the brain with contrast (cancel it since neurology recommended MRI SPECT tomography of the brain which could not be performed at this facility) Brain lessions on MRI w/o contrast, unknown etiology -we will perform brain MRI with contrast once kidney function recovers. -lab workup performed at [place] was negative for blastomycosis, tuberculosis, cryptococcosis Polyneuropathy -Continue gabapentin 100mg BID Sedation -OFF sedation Not on vasopressors at this time. Cardiology Acute on chronic diastolic heart failure (HFpEF 55%) -Both echocardiograms TTE YOLANDA were performed showing no vegetations or cardiac valve abn. Ruled out endocarditis -YOLANDA performed on 12/10/2023 showed normal cardiac valves with no vegetations at that time. Primary hypertension -Continue losartan 50mg QD -Continue metoprolol 25mg PO BID Respiratory S/P tracheostomy performed today in the morning (12/13/23) -Patient currently on trach collar on 7 L of O2 sat 97% on FIO2 35% Acute hypoxic respiratory failure likely in the setting of aspiration pneumonia -IV Unasyn was discontinued -on tarach collar as described above -CT of the chest/abdomen and pelvis showed no acute findings in the abdominal pelvics but showed multifocal airspace disease and cardiomegaly -chest x-ray performed today showed stable pulmonary congestion right lower lobe infiltration can not be excluded -Physical therapy working with the patient now placed order for twice a day. Sepsis in the setting of aspiration pneumonia -continue IV antibiotics as described above Infectious disease Sepsis likely due to aspiration pneumonia and UTI -Completed abs treatment UTI UA suggestive of UTI but last urine culture showed no growth -Ordered new U/A came back suggesting UTI -Urine culture came back negative Possible brain abscess/infectious occupying lesions -completed IV Unasyn treatment Endocrinology Type 2 diabetes mellitus, DKA on previous admissions -start moderate sliding scale insulin -start Lantus 15 units q.a.m. -Not on Lantus at this time Diabetic polyneuropathy -Patient sedated, monitor Hypothyroidism -Last TSH was 17.87 -today, ordered free T4 and T3 which came back 0.48 and 0.79 respectively -Continue levothyroxine 112mcgQAM Gastroenterology Acute transaminitis, resolved -AST 20, ALT 16 -Continue monitoring Cholelithiasis w/o cholecystitis -CT abdomen showed cholelithiasis w/o findings suggestive of cholecystitis Hematology Superficial thrombophlebitis of right cephalic and basilic veins -no need for anticoagulation DVT of the left brachial vein -Continue eliquis 2.5mg BID Nephrology YULIANA likely due to VMN -today, creatinine is 0.86 and BUN 10 -Monitor kidney function Nutrition -Discontinue current enteral nutrition and start Glucerna. Continue physical therapy to twice a day Lines: Midline of right upper arm placed on 12/08/2023 (Removed) PICC line on left upper arm placed on 12/09/2023 Goals of care discussed with Chelsea (daughter) via phone for >23min critical care time 41 mins Plan discussed with Dr. Razo Plan discussed with: Patient, Daughter My Orders My Orders Orders - DANELLE MENDIETA RESIDENT Procedure Category Date Status Time Electrocardigram EKG 12/27/23 Logged 12:07 Chest Xray 1 View XY 12/28/23 Resulted 04:00 Losartan Tablet PHA 12/28/23 In Process (Cozaar Tablet) 10:00 Dietary Evaluation Review Comments: 1) If GI is accessible consider Glucerna 1.2 @ 55 ml/hr goal rate as tolerated 2) If pt remains NPO >7 days consider TPN to meet at least 75% of estimated needs 3) Advance pt diet when medically feasible to a CCHO 45g/Cardiac diet modified per POWERHOUSE ENGINEER recommendations 4) Continue current plan of care Expected Outcomes/Goals: 1) Pt to receive nutrition support within 7 days of NPO status 2) Pt diet to advance 3) F/U in 2-3 days Date of Service: Dec 28, 2023 Billing Provider: FREEDOM RAZO MD Common Visit Codes: 95857-[id number] CARE 30-74 MIN DANELLE MENDIETA RESIDENT Dec 28, 2023 11:12 FREEDOM RAZO MD Dec 29, 2023 13:42
[2023-12-28] MEDS: HYDROcodone-ACET 10/325MG TAB PEG PRN (16:49)
--- NOTE | 2023-12-28 20:28 | DVHPN2 ---
Consult Progress Note Date Seen: Dec 28, 2023 Subjective Patient reports: Feels better (tolerating trach, is working with physical therapy ) Objective vital signs Vital Sign Date Time Temp Pulse Resp B/P (MAP) Pulse Ox O2 Delivery O2 Flow Rate FiO2 12/28/23 17:00 98.6 68 18 126/65 (85) 98 98.6 12/28/23 14:16 Trach Collar 8.0 12/28/23 14:16 30 30 Total Intake and Output 12/27/23 12/27/23 12/28/23 15:00 23:00 07:00 Intake Total 120 ml 480 ml 0 ml Output Total 250 ml 300 ml Balance 120 ml 230 ml -300 ml medications Current Medications Medications Dose Ordered Sig/Leslie Route Start Time Stop Time Status Last Admin Dose Admin Albuterol 2.5 mg Q4HR PRN NEB 12/08/23 19:30 12/28/23 14:08 2.5 MG Ipratropium [place] 0.5 mg Q4HR NEB 12/08/23 22:00 12/28/23 14:08 0.5 MG Ondansetron HCl 4 mg Q4HP PRN IV 12/08/23 19:30 Pantoprazole Sodium 40 mg DAILY IV 12/09/23 10:00 12/28/23 10:14 40 MG Hydralazine HCl 10 mg Q4HP PRN IV 12/09/23 05:30 12/28/23 01:03 10 MG Sodium Chloride 10 ml QSHIFT@10,22 IV 12/09/23 22:00 12/28/23 10:00 10 ML Metoclopramide HCl 5 mg Q6HPRN PRN IV 12/13/23 21:45 Lorazepam 1 mg Q4H PRN IV 12/17/23 00:15 12/24/23 06:15 1 MG Acetylcysteine 200 mg Q8HR NEB 12/22/23 22:00 12/28/23 14:16 200 MG Acetaminophen 650 mg Q6HP PRN PO 12/23/23 21:15 12/27/23 10:04 650 MG Enteral Nutritional Formula 1,000 ml 40ML/HR GT 12/24/23 09:15 12/28/23 05:16 1,000 ML Insulin Glargine 15 units DAILY@1000 SC 12/24/23 13:30 12/28/23 10:18 15 UNITS Diagnostic Test (Pha) 1 strip Q6HR 12/24/23 18:00 12/28/23 18:00 1 STRIP Insulin Human Regular Q6HR SC 12/24/23 18:00 12/28/23 12:00 3 UNITS Dextrose 50 ml UD PRN IV 12/24/23 13:30 Apixaban 2.5 mg BID PEG 12/26/23 22:00 12/28/23 10:14 2.5 MG Gabapentin 100 mg BID PEG 12/26/23 22:00 12/28/23 10:15 100 MG Metoprolol Tartrate 25 mg BID PEG 12/26/23 22:00 12/28/23 10:16 25 MG Levothyroxine Sodium 112 mcg QAM@0600 PEG 12/27/23 06:00 12/28/23 05:16 112 MCG Losartan Potassium 100 mg DAILY PEG 12/28/23 10:00 12/28/23 10:16 100 MG Acetaminophen/ Hydrocodone Bitart 1 tab Q4HP PRN PEG 12/28/23 16:30 12/28/23 16:49 1 TAB PHYSICAL EXAM: - GENERAL: Alert and oriented x 3. No acute distress. Well-nourished. on trach collar. Non-verbal - EYES: EOMI. Anicteric. - HENT: Moist mucous membranes. No scleral icterus. No cervical lymphadenopathy. - LUNGS: Forced breath sounds bilaterally. Signs of aspiration - CARDIOVASCULAR: Regular rate and rhythm. No murmur. No JVD. - ABDOMEN: Soft, non-tender and non-distended. No palpable masses. - EXTREMITIES: No edema. Non-tender.SKIN: No rashes or lesions. Warm. - NEUROLOGIC: No focal neurological deficits. CN II-XII grossly intact, but not individually tested. - PSYCHIATRIC: Cooperative. Appropriate mood and affect. laboratory and microbiology Laboratory Tests 12/28/23 04:51 Test 12/28/23 04:51 Range/Units Serum Glucose 221 H 74-106 mg/dL Problem List/Assessment/Plan Problems(with codes): (1) COPD (chronic obstructive pulmonary disease) (2) HTN (hypertension) (3) DKA (diabetic ketoacidosis) (4) Hospital-acquired pneumonia (5) Closed right hip fracture Problem List/Assessment/Plan Assessment/Plan Problems(with codes): (1) Hospital-acquired pneumonia (2) COPD (chronic obstructive pulmonary disease) (3) DKA (diabetic ketoacidosis) (4) HTN (hypertension) (5) Closed right hip fracture Plan/Recommendation ASSESSMENT AND PLAN: ID Problem List: - Aspiration pneumonia - Acute respiratory failure - Diabetic Ketoacidosis (DKA) - Sepsis due to UTI vs pneumonia - Acute Kidney Injury (YULIANA) - Hypernatremia - Transaminitis - Fatty liver - Uncontrolled diabetes (A1C of 11.7) - Hypothyroidism - Hypertension - COPD without exacerbation - Chronic kidney disease (CKD) Assessment: This is a 68-year-old female with a past medical history of diabetes, hypertension, recurrent DKA, hypothyroidism, obesity, COPD, neuropathies, mechanical falls, liver cirrhosis, and multiple joint replacements. The patient presented to the ED with acute loss of consciousness on 11/15/2023, subsequently diagnosed with DKA and an upper GI bleed. While at [facility], a CT and MRI of the head showed concerning lesions for metastasis vs. infectious process and gallbladder issues. Due to renal failure, these images were performed without contrast. An ERCP at [facility] showed no gallstones or common bile duct obstruction. Currently, the patient is reintubated on minimal sedation and receiving broad-spectrum antibiotics for presumed meningitis and other infections. 12/09: Patient has had a repeat abdomen, pelvis, chest Ct with contrast which shows no acute findings in the abdomen and pelvis. multifocal airspace in the lungs was shown. 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 12/12: sp trach 12/13: off sedation 12/19: trach 7l,elevated temps 12/23: Sputal culture is showing normal oral pharyngeal jordan, chest X-ray shows clear lungs, yesterdays X-rays show interstitial edema otherwise clear lungs. Recomend patient continue off antibiotics and just do aspiriations. If fever starts , cosider antibiotics for aspiration pnumonia , suspect Pneumonitis 12/26: Peg tube feeding were stopped , soft abdomen and having bowel movements. Chest X-ray shows mild pulmonary congestion. Otherwise patient is stable with no fevers 12/27: Peg tube is dry and intact. Restarted on [place]. Continues to work on physical therapy Plan: - continue off antibiotics unless fever starts up - sp 3 week vancomycin and ceftriaxone course, will monitor patient off all antibiotics - aspiration precautions - Blood cultures monitoring. - Monitor respiratory status and adjust ventilator settings as necessary. - Monitor and manage blood glucose levels. - Supportive care as needed. Plan discussed with: Other Dietary Evaluation Review Comments: 1) If GI is accessible consider Glucerna 1.2 @ 55 ml/hr goal rate as tolerated 2) If pt remains NPO >7 days consider TPN to meet at least 75% of estimated needs 3) Advance pt diet when medically feasible to a CCHO 45g/Cardiac diet modified per DEVELOPMENTAL SPECIALIST recommendations 4) Continue current plan of care Expected Outcomes/Goals: 1) Pt to receive nutrition support within 7 days of NPO status 2) Pt diet to advance 3) F/U in 2-3 days NITHIN ANAYA MD Dec 28, 2023 20:28
--- NOTE | 2023-12-28 22:47 | DVHPN2 ---
Progress Note - Dictate Date Seen: Dec 28, 2023 Has the PT tested + for MRSA If YES, has PT been informed?: No Medical Necessity Reason Pt with a Central, PICC or Fol: Yes The following are medically ne: PICC Line, Carr Catheter Reason for carr catheter: Strict I&O Subjective Mr. Sanderson is a 68 years old female with a history of hypertension, diabetes, hypothyroidism, COPD, obesity, diabetic polyneuropathy, arthritis, liver cirrhosis, she was transferred back from the [facility] on 12/08/2023 after ERCP. I have seen examined the patient, I have talked to her nurse, she is awake, follows verbal commands , she moves extremities, not able to talk LLU Neurosurgery consultation: The lesions likely represents infarct, recommend Re attempting MRI spectrography for further evaluation Neuro consultation: Lumbar puncture was not recommended concerning possibility of herniation EEG, 11/28/2023: No seizure/nonconvulsive status epileptics (I did not see report) TTE, 11/29/23: EF: 70-75% (I did not see report) MRI brain (no report): signal abnormality in bilateral cerebellum and right occipital lobe, punctate foci in right parietal lobe and central semiovale- unable to differentiate subacute ischemia 2/2 MR effects versus infection versus metastasis. Recommend contrast enhanced MRI MRI, 12/05/23: No evidence of demyelinating disease (I did not see report) MRI orbital, face, neck ww 12/05/2023, comparison: MR brain 11/28/2023: No evidence of mucormycosis infection. Multiple irregularly enhancing cerebellar and right occipital lesions were better evaluated on recent brain MRI MRI C-spine, 12/05/2023: No evidence of demyelinating disease in the cervical spine. Moderate degenerative changes. Grade 1 anterolisthesis of C7 on T1 MRI lumbar spine wwo, 12/05/2023: No evidence of demyelinating disease in the lumbar spine. Degenerative changes and grade 1 anterolisthesis of L4 and L5. Mild central spinal stenosis at L4-5. Lvov-ty-xhywymud multilevel bilateral foraminal stenosis as described above MRI spectroscopy 12/05/2023: Cerebellar lesion showing moderately elevated Cho, reduced ZINA, large lipid peaks, and additional tics suspicious for amino acids and alanine. The alanine and amino acids are suspicious for an infectious process Treatment according to discharge note: ASA 81mg Qd, Lipitor 20 mg daily Urinalysis, 12/08/2023: WBC: 93, urine leukocyte esterase: 3+ ABG, 12/09/2023: Metabolic acidosis WBC/HB/PLT/MCV, 12/09/2023: 8.5/7.4/350/92.4 PT/INR/PTT, 12/08/2023: 11.4/1.08 Na, 12/08/2023: 147, 12/09/2023: 146, 12/19/2019 4:148 HCO3, 12/08/2023: 23, 12/10/2023: 22, 11/2123: 19, 12/13/23: 18, 12/16/2023: 15, 12/19/2023: 17 CPK, 12/18/2023: 54 TBI/AST/ALT/AP, 12/09/2023: 0.2/40/21/278 TG/HDL/LDL/HDL, 11/2023: 136/96/38/32 Vitamin B12, 11/2023: 2537 TSH, 11/2023: 17.87 YOLANDA, 12/10/2023: n the study done today no evidence of vegetation or masses were discernible. There is mild mitral valve regurgitation with mild anterior leaflet prolapse. No significant intracardiac lesion was discernible Echocardiogram, 11/18/2023: Normal left ventricular size and dimension. Normal left ventricular systolic function estimated ejection fraction 55%. There is a grade 1 diastolic dysfunction. Normal right ventricular size and dimension. Normal right ventricular systolic function. Mildly increased right ventricular systolic pressure 34 mm of mercury. Normal biatrial size and dimension. Normal aortic valve structure and function. Normal mitral valve structure and function. Normal tricuspid valve structure and function. The pulmonary valve is grossly normal. No pericardial effusion. Carotid Doppler, 11/21/2023: 1. No evidence of hemodynamically significant stenosis within the left carotid arterial system. 2. Antegrade flow within the left vertebral artery. 3. Cannot assess the right carotid arterial system due to central line artifact and overlying bandage. Extremity venous study, 12/09/2023: Thrombus in the LEFT cephalic and brachial vein. Thrombus in the RIGHT cephalic and basilic vein.If clinical concern/symptoms persist or worsen, short-interval follow-up study is suggested. Chest x-ray, 12/08/2023: 1. Endotracheal and gastric tubes in place as described. Satisfactory position. 2. Removal of right PICC and right IJ central venous catheter since prior. 3. Mild cardiomegaly and pulmonary vascular congestion. 4. Small opacity in the lateral right lung base which could reflect atelectasis or pneumonia MRI head, 11/21/2023: Signal abnormality in the bilateral cerebellum and right occipital lobe, as well as punctate foci in the right parietal lobe and centrum semiovale. Findings could represent regions of subacute ischemia due to embolic infarcts; however, underlying metastases or infection are not excluded. Recommend contrast-enhanced MRI vital signs Vital Sign Date Time Temp Pulse Resp B/P (MAP) Pulse Ox O2 Delivery O2 Flow Rate FiO2 12/28/23 21:10 68 126/65 12/28/23 21:00 98.5 16 96 98.5 12/28/23 14:16 Trach Collar 8.0 12/28/23 14:16 30 30 Total Intake and Output 12/27/23 12/27/23 12/28/23 15:00 23:00 07:00 Intake Total 120 ml 480 ml 0 ml Output Total 250 ml 300 ml Balance 120 ml 230 ml -300 ml medications Current Medications Medications Dose Ordered Sig/Leslie Route Start Time Stop Time Status Last Admin Dose Admin Albuterol 2.5 mg Q4HR PRN NEB 12/08/23 19:30 12/28/23 14:08 2.5 MG Ipratropium [place] 0.5 mg Q4HR NEB 12/08/23 22:00 12/28/23 14:08 0.5 MG Ondansetron HCl 4 mg Q4HP PRN IV 12/08/23 19:30 Pantoprazole Sodium 40 mg DAILY IV 12/09/23 10:00 12/28/23 10:14 40 MG Hydralazine HCl 10 mg Q4HP PRN IV 12/09/23 05:30 12/28/23 01:03 10 MG Sodium Chloride 10 ml QSHIFT@10,22 IV 12/09/23 22:00 12/28/23 21:11 10 ML Metoclopramide HCl 5 mg Q6HPRN PRN IV 12/13/23 21:45 Lorazepam 1 mg Q4H PRN IV 12/17/23 00:15 12/24/23 06:15 1 MG Acetylcysteine 200 mg Q8HR NEB 12/22/23 22:00 12/28/23 14:16 200 MG Acetaminophen 650 mg Q6HP PRN PO 12/23/23 21:15 12/27/23 10:04 650 MG Enteral Nutritional Formula 1,000 ml 40ML/HR GT 12/24/23 09:15 12/28/23 05:16 1,000 ML Insulin Glargine 15 units DAILY@1000 SC 12/24/23 13:30 12/28/23 10:18 15 UNITS Diagnostic Test (Pha) 1 strip Q6HR 12/24/23 18:00 12/28/23 18:00 1 STRIP Insulin Human Regular Q6HR SC 12/24/23 18:00 12/28/23 12:00 3 UNITS Dextrose 50 ml UD PRN IV 12/24/23 13:30 Apixaban 2.5 mg BID PEG 12/26/23 22:00 12/28/23 21:10 2.5 MG Gabapentin 100 mg BID PEG 12/26/23 22:00 12/28/23 21:09 100 MG Metoprolol Tartrate 25 mg BID PEG 12/26/23 22:00 12/28/23 21:10 25 MG Levothyroxine Sodium 112 mcg QAM@0600 PEG 12/27/23 06:00 12/28/23 05:16 112 MCG Losartan Potassium 100 mg DAILY PEG 12/28/23 10:00 12/28/23 10:16 100 MG Acetaminophen/ Hydrocodone Bitart 1 tab Q4HP PRN PEG 12/28/23 16:30 12/28/23 16:49 1 TAB objective The patient is well-nourished and well-developed with no distress. Status post tracheostomy and feeding tube insertion MENTAL STATUS: Subjective CRANIAL NERVES: Pupils are equal, round and reactive, small. There are c onjugated eye movements. No signs of facial weakness. There are no gagging or coughing reflexes during oral care SENSATION: Responses to pain stimuli. MOTOR: Normal tone in the upper and lower extremity. Normal muscle bulk. No fasciculations. Muscle Bear: Arms: Right: 3/5, left 2/5. Legs: She moves the feet a little bit REFLEXES: Deep tendon reflexes are symmetrical. Bilateral upgoing toes CEREBELLAR/COORDINATION: Deferred GAIT/STATION: deferred. laboratory and microbiology Laboratory Tests 12/28/23 04:51 Test 12/28/23 04:51 Range/Units Serum Glucose 221 H 74-106 mg/dL Problem List Abnormal MRI brain scan, likely the patient has multiple stroke Coma Metabolic encephalopathy Hypoxic encephalopathy Multiple strokes Ketoacidosis ICU myopathy, improving Bilateral upper extremity deep venous thrombosis Rule out subacute endocarditis Status post tracheostomy Status post PEG tube Assessment/Plan Monitoring Supportive treatment Respiratory support IV antibiotics Eliquis 2.5 mg b.i.d. Tube feeding Cardiology on case Infectious disease on case More recommendation per clinical course This medical document was created using an electronic medical record system with [employer] dictation system. Although this document has been carefully reviewed, there may still be some phonetic and typographical errors. These areas are purely typographical due to imperfections of the software programs, and do not reflect any compromise in the patient's medical care. Prognosis poor Dietary Evaluation Review Comments: 1) If GI is accessible consider Glucerna 1.2 @ 55 ml/hr goal rate as tolerated 2) If pt remains NPO >7 days consider TPN to meet at least 75% of estimated needs 3) Advance pt diet when medically feasible to a CCHO 45g/Cardiac diet modified per PERFORMANCE MANAGEMENT CONSULTANT recommendations 4) Continue current plan of care Expected Outcomes/Goals: 1) Pt to receive nutrition support within 7 days of NPO status 2) Pt diet to advance 3) F/U in 2-3 days Plan discussed with: Other DREW FAGAN MD Dec 28, 2023 22:47
[2023-12-29] VITALS (19 sets, daily range): BP systolic 131–146; BP diastolic 55–76; PULSE 61–81; RESP 14–20; TEMP 97.8–98.5; O2SAT 91–100
--- NOTE | 2023-12-29 07:03 | DVHPNRES ---
Progress Note Date Seen: Dec 29, 2023 Resident Creating Document: DANELLE MENDIETA RESIDENT Has the PT tested + for MRSA If YES, has PT been informed?: No Medical Necessity Reason Pt with a Central, PICC or Fol: Yes The following are medically ne: PICC Line, Carr Catheter Reason for carr catheter: Strict I&O Subjective Review of Systems This is a 68-year-old female with past medical history of hypertension, diabetes mellitus type 2, hypothyroidism, COPD, obesity, diabetic polyneuropathy, liver cirrhosis, right knee replacement, multiple admissions for DKA. The patient was initially seen at [facility] on 11/16/2023 where he was intubated and transferred to our facility. At our facility he was treated for DKA and was found to have space occupying lesions in the brain (metastasis/infection/stroke) MRI of the head was done with no conclusive findings at that time. CT scan of the abdomen and pelvis at that time showed dilation of common bile duct and GI recommended ERCP/endoscopic ultrasound so patient was transferred on 11/26/2023 to [place]. ERCP and ultrasound was performed showing no obstruction either malignancy or stone at that time. Neurosurgery at [place] evaluated MRI results and stated that could be due to infarcts. Neurologist was against lumbar puncture due to increased risk of herniation. patient was extubated on November 28, 2023 and was transferred step-down unit with 2 L of nasal cannula but lately on December 02 patient became shortness of breath tachypneic required reintubation. The patient had sepsis of unknown etiology and they thought it might be related to the brain lesions so patient was started on broad-spectrum IV antibiotics with MRSA coverage. Patient was readmitted back at [facility]. Patient seen and examined at bedside. There were no major events overnight, patient has no acute complaints at this time. The patient is currently requiring 7 L of oxygen with an FiO2 of 30% saturating 93%. The patient states nodding her head that she is working with physical therapy which we spoke to him to be done twice a day. Physical exam was grossly unremarkable at this time, except for neurologic deficits (loss of muscular strength and inability to actively move bilateral lower extremities). We will keep working with physical therapy for strengthening upper car of the body. ROS Constitutional: Denies weight loss, fever and chills. HEENT: Denies changes in vision and hearing. Respiratory: Denies shortness of breath and cough Cardiovascular: Denies chest discomfort or palpitations GI: Denies abdominal pain, nausea, vomiting and diarrhea. : Denies dysuria and urinary frequency. Musculoskeletal: Denies myalgias and joint pain Skin: Denies rash and pruritus. Neurological: Denies dizziness, headache, vision or hearing problems Objective vital signs Vital Sign Date Time Temp Pulse Resp B/P (MAP) Pulse Ox O2 Delivery O2 Flow Rate FiO2 12/29/23 06:37 98.5 12/29/23 05:00 69 18 146/70 (95) 99 12/28/23 22:57 Trach Collar 7.0 12/28/23 22:57 N/A Total Intake and Output 12/28/23 12/28/23 12/29/23 15:00 23:00 07:00 Intake Total 1144 ml 0 ml 0 ml Output Total 550 ml 460 ml Balance 1144 ml -550 ml -460 ml medications Current Medications Medications Dose Ordered Sig/Leslie Route Start Time Stop Time Status Last Admin Dose Admin Albuterol 2.5 mg Q4HR PRN NEB 12/08/23 19:30 12/28/23 22:53 2.5 MG Ipratropium Aristes 0.5 mg Q4HR NEB 12/08/23 22:00 12/29/23 02:41 0.5 MG Ondansetron HCl 4 mg Q4HP PRN IV 12/08/23 19:30 Pantoprazole Sodium 40 mg DAILY IV 12/09/23 10:00 12/28/23 10:14 40 MG Hydralazine HCl 10 mg Q4HP PRN IV 12/09/23 05:30 12/28/23 01:03 10 MG Sodium Chloride 10 ml QSHIFT@, IV 12/09/23 22:00 12/28/23 21:11 10 ML Metoclopramide HCl 5 mg Q6HPRN PRN IV 12/13/23 21:45 Lorazepam 1 mg Q4H PRN IV 12/17/23 00:15 12/24/23 06:15 1 MG Acetylcysteine 200 mg Q8HR NEB 12/22/23 22:00 12/28/23 22:54 200 MG Acetaminophen 650 mg Q6HP PRN PO 12/23/23 21:15 12/29/23 06:37 650 MG Enteral Nutritional Formula 1,000 ml 40ML/HR GT 12/24/23 09:15 12/28/23 05:16 1,000 ML Insulin Glargine 15 units DAILY@1000 SC 12/24/23 13:30 12/28/23 10:18 15 UNITS Diagnostic Test (Pha) 1 strip Q6HR 12/24/23 18:00 12/29/23 06:00 1 STRIP Insulin Human Regular Q6HR SC 12/24/23 18:00 12/29/23 06:39 6 UNITS Dextrose 50 ml UD PRN IV 12/24/23 13:30 Apixaban 2.5 mg BID PEG 12/26/23 22:00 12/28/23 21:10 2.5 MG Gabapentin 100 mg BID PEG 12/26/23 22:00 12/28/23 21:09 100 MG Metoprolol Tartrate 25 mg BID PEG 12/26/23 22:00 12/28/23 21:10 25 MG Levothyroxine Sodium 112 mcg QAM@0600 PEG 12/27/23 06:00 12/29/23 06:36 112 MCG Losartan Potassium 100 mg DAILY PEG 12/28/23 10:00 12/28/23 10:16 100 MG Acetaminophen/ Hydrocodone Bitart 1 tab Q4HP PRN PEG 12/28/23 16:30 12/28/23 23:37 1 TAB Examination Physical Examination: General: Patient opens eyes spontaneously to voice, on trach collar at 7L of O2, FIO2 30% sat 93% HEENT: Normocephalic, atraumatic, moist mucous membranes Respiratory/pulmonary: Bilateral lung sounds grossly clear, no major crackles or wheezes at this time. Cardiovascular: Regular heart sounds S1 and S2 with no associated murmurs. Abdomen: Abdomen nondistended, there is mild pain to palpation to the epigastric region, no palpable masses. PEG tube on place with no signs in infection at this time. Extremities: There is no bilateral pleural effusions at this time. Peripheral Pulses: 3+ Radial (R). 3+ Radial (L). 3+ Dorsalis pedis (R). 3+ Dorsalis pedis(L) Skin: No rashes or pruritus, there is no sacral edema present at this time. Neurological: Cranial nerves not able to evaluate independently. Patient responds to verbal stimuli and not head answering simple questions. Patient is slightly moving bilateral upper extremities. Patient not actively moving lower extremities. laboratory and microbiology Laboratory Tests 12/28/23 04:51 Test 12/28/23 04:51 Range/Units Serum Glucose 221 H 74-106 mg/dL Microbiology Date/Time Source Procedure Growth Status 12/21/23 09:42 Trachea Gram Stain - Final Complete 12/21/23 09:42 Respiratory Culture - Final Yeast, not Sapp[place] albicans Complete 12/14/23 19:42 Voided Urine Urine Culture - Final Complete 12/09/23 09:28 Blood Blood Culture - Final NO GROWTH AFTER 5 DAYS OF INCUBATION. Complete 12/08/23 19:00 Sputum Gram Stain - Final Complete 12/08/23 19:00 Sputum Respiratory Culture - Final Complete Problem List/Assessment/Plan Problem List/Assessment/Plan Assessment/Plan Neurology Acute metabolic encephalopathy likely in the setting of sepsis versus brain occupying lesions (metastasis/infection/stroke) -patient has a previous MRI at this facility showing no conclusive diagnosis, At [place] did not got any conclusive diagnosis as well. -failed extubation at [place] -CT scan of the head performed at this visit show hypodensities in bilateral cerebellum with no acute intracranial abnormalities. -MRI with contrast of the brain should be performed to clarify etiology of brain occupying lesions. Study was hold today due to YULIANA, we will wait for renal function recovery, meanwhile we will try to decrease sedation and assess neurologic response clinically. -Will order MRI of the brain with contrast (cancel it since neurology recommended MRI SPECT tomography of the brain which could not be performed at this facility) Brain lessions on MRI w/o contrast, unknown etiology -we will perform brain MRI with contrast once kidney function recovers. -lab workup performed at [place] was negative for blastomycosis, tuberculosis, cryptococcosis Polyneuropathy -Continue gabapentin 100mg BID Sedation -OFF sedation Not on vasopressors at this time. Cardiology Acute on chronic diastolic heart failure (HFpEF 55%) -Both echocardiograms TTE YOLANDA were performed showing no vegetations or cardiac valve abn. Ruled out endocarditis -YOLANDA performed on 12/10/2023 showed normal cardiac valves with no vegetations at that time. Primary hypertension -Continue losartan 50mg QD -Continue metoprolol 25mg PO BID Respiratory S/P tracheostomy performed today in the morning (12/13/23) -Patient currently on trach collar on 7 L of O2 sat 97% on FIO2 35% Acute hypoxic respiratory failure likely in the setting of aspiration pneumonia -IV Unasyn was discontinued -on tarach collar as described above -CT of the chest/abdomen and pelvis showed no acute findings in the abdominal pelvics but showed multifocal airspace disease and cardiomegaly -chest x-ray performed today showed stable pulmonary congestion right lower lobe infiltration can not be excluded -Physical therapy working with the patient now placed order for twice a day. Sepsis in the setting of aspiration pneumonia -continue IV antibiotics as described above Infectious disease Sepsis likely due to aspiration pneumonia and UTI -Completed abs treatment UTI UA suggestive of UTI but last urine culture showed no growth -Ordered new U/A came back suggesting UTI -Urine culture came back negative Possible brain abscess/infectious occupying lesions -completed IV Unasyn treatment Endocrinology Type 2 diabetes mellitus, DKA on previous admissions -Continue moderate sliding scale insulin -Continue Lantus 15 units q.a.m. -Not on Lantus at this time Diabetic polyneuropathy -Patient sedated, monitor Hypothyroidism -Last TSH was 17.87 -today, ordered free T4 and T3 which came back 0.48 and 0.79 respectively -Continue levothyroxine 112mcgQAM Gastroenterology Acute transaminitis, resolved -AST 20, ALT 16 -Continue monitoring Cholelithiasis w/o cholecystitis -CT abdomen showed cholelithiasis w/o findings suggestive of cholecystitis Hematology Superficial thrombophlebitis of right cephalic and basilic veins -no need for anticoagulation DVT of the left brachial vein -Continue eliquis 2.5mg BID Nephrology YULIANA likely due to VMN -today, creatinine is 0.81 and BUN 14 -Monitor kidney function Nutrition -Discontinue current enteral nutrition and start Glucerna. Continue physical therapy to twice a day Lines: Midline of right upper arm placed on 12/08/2023 (Removed) PICC line on left upper arm placed on 12/09/2023 Goals of care discussed with medical team for > 23min critical care time 34 mins Plan discussed with Dr. Razo Plan discussed with: Patient My Orders My Orders Orders - DANELLE MENDIETA Procedure Category Date Status Time Losartan Tablet PHA 12/28/23 In Process (Cozaar Tablet) 10:00 Hydrocodone-Acet PHA 12/28/23 In Process 10/325mg Tab ([place] 16:30 Complete Blood Count LAB 12/29/23 Logged 04:00 Comprehensive LAB 12/29/23 Logged Metabolic Panel 04:00 Magnesium LAB 12/29/23 Logged 04:00 Phosphorus LAB 12/29/23 Logged 04:00 Dietary Evaluation Review Comments: 1) If GI is accessible consider Glucerna 1.2 @ 55 ml/hr goal rate as tolerated 2) If pt remains NPO >7 days consider TPN to meet at least 75% of estimated needs 3) Advance pt diet when medically feasible to a CCHO 45g/Cardiac diet modified per STEAM BONE PRESS TENDER recommendations 4) Continue current plan of care Expected Outcomes/Goals: 1) Pt to receive nutrition support within 7 days of NPO status 2) Pt diet to advance 3) F/U in 2-3 days Date of Service: Dec 29, 2023 Billing Provider: FREEDOM RAZO MD Common Visit Codes: [id number] CARE 30-74 MIN DANELLE MENDIETA RESIDENT Dec 29, 2023 07:03 FREEDOM RAZO MD Dec 30, 2023 12:07
[2023-12-29 10:15] LABS: Basophils # (auto) 0.1 10 ^3/uL (0-0.2); Basophils % (auto) 1.5 % (0.0-2.0); Eosinophils # (auto) 0.7 10 ^3/uL (0-0.8); Eosinophils % (auto) 7.6 % (0.0-7.0); Hematocrit 34.2 % (36.0-46.0); Hemoglobin 10.6 g/dL (12.2-16.2); Lymphocytes % (auto) 34.3 % (10.0-50.0); Mean Corpuscular Hemoglobin 26.6 pg (28.0-32.0); Mean Corpuscular Hgb Conc. 30.9 g/dL (32.0-36.0); Mean Corpuscular Volume 86.2 fL (80.0-100.0); Monocytes # (auto) 0.6 10 ^3/uL (0-1.3); Monocytes % (auto) 6.8 % (0.0-12.0); Neutrophils # (auto) 4.3 10 ^3/uL (1.6-8.6); Neutrophils % (auto) 49.8 % (37.0-80.0); Nucleated Red Blood Cells % 0.2 %; Platelet Count (auto) 468 10^3/uL (140-450); Red Blood Cells 3.97 10^6/uL (4.0-5.20); Red Cell Distribution Width 17.1 % (11.8-14.3); White Blood Cell 8.7 10^3/uL (4.4-10.8)
[2023-12-29 10:36] LABS: Alanine Aminotransferase 12 U/L (7-40); Albumin 3.5 g/dL (3.2-4.8); Alkaline Phosphatase 143 U/L (46-116); Anion Gap 10 (5-15); Aspartate Aminotransferase 25 U/L (13-40); BUN/Creatinine Ratio 17.3 (10.0-20.0); Blood Urea Nitrogen 14 mg/dL (9-23); Calcium 9.8 mg/dL (8.7-10.4); Carbon Dioxide 22 mmol/L (20-31); Chloride 107 mmol/L (98-107); Glucose 125 mg/dL (74-106); Magnesium 1.9 mg/dL (1.6-2.6); Potassium 4.3 mmol/L (3.5-5.1); Sodium 139 mmol/L (136-145)
[2023-12-29 10:37] LABS: Bilirubin, Total < 0.2 mg/dL (0.2-1.0); Total Protein 6.5 g/dL (5.7-8.2)
[2023-12-30] VITALS (18 sets, daily range): BP systolic 113–169; BP diastolic 53–84; PULSE 65–80; RESP 16–65; TEMP 97.1–98.7; O2SAT 90–100
--- NOTE | 2023-12-30 10:17 | DVHPNRES ---
Progress Note Date Seen: Dec 30, 2023 Resident Creating Document: DANELLE MENDIETA RESIDENT Has the PT tested + for MRSA If YES, has PT been informed?: No Medical Necessity Reason Pt with a Central, PICC or Fol: Yes The following are medically ne: PICC Line, Carr Catheter Reason for carr catheter: Strict I&O Subjective Review of Systems This is a 68-year-old female with past medical history of hypertension, diabetes mellitus type 2, hypothyroidism, COPD, obesity, diabetic polyneuropathy, liver cirrhosis, right knee replacement, multiple admissions for DKA. The patient was initially seen at [facility] on 11/16/2023 where he was intubated and transferred to our facility. At our facility he was treated for DKA and was found to have space occupying lesions in the brain (metastasis/infection/stroke) MRI of the head was done with no conclusive findings at that time. CT scan of the abdomen and pelvis at that time showed dilation of common bile duct and GI recommended ERCP/endoscopic ultrasound so patient was transferred on 11/26/2023 to [facility]. ERCP and ultrasound was performed showing no obstruction either malignancy or stone at that time. Neurosurgery at [facility] evaluated MRI results and stated that could be due to infarcts. Neurologist was against lumbar puncture due to increased risk of herniation. patient was extubated on November 28, 2023 and was transferred step-down unit with 2 L of nasal cannula but lately on December 02 patient became shortness of breath tachypneic required reintubation. The patient had sepsis of unknown etiology and they thought it might be related to the brain lesions so patient was started on broad-spectrum IV antibiotics with MRSA coverage. Patient was readmitted back at [facility]. Patient seen and examined at bedside. Today, patient still at 7 L of oxygen at an FiO2 of 30% saturating 92%. Patient had no any major issues overnight, no fever or any tachyarrhythmias. Physical examination was grossly unremarkable. We encouraged the patient to continue working with physical therapy twice a day. Patient agrees and understands. Patient is alert and oriented answering every single questions nodding her head. ROS Constitutional: Denies weight loss, fever and chills. HEENT: Denies changes in vision and hearing. Respiratory: Denies shortness of breath and cough Cardiovascular: Denies chest discomfort or palpitations GI: Denies abdominal pain, nausea, vomiting and diarrhea. : Denies dysuria and urinary frequency. Musculoskeletal: Denies myalgias and joint pain Skin: Denies rash and pruritus. Neurological: Denies dizziness, headache, vision or hearing problems Objective vital signs Vital Sign Date Time Temp Pulse Resp B/P (MAP) Pulse Ox O2 Delivery O2 Flow Rate FiO2 12/30/23 08:12 98.1 67 17 152/69 (96) 96 98.1 12/30/23 06:00 Trach Collar 6 30 Cool Aerosol 30 Total Intake and Output 12/29/23 12/29/23 12/30/23 15:00 23:00 07:00 Intake Total 0 ml 580 ml Output Total 450 ml 410 ml Balance -450 ml 170 ml medications Current Medications Medications Dose Ordered Sig/Leslie Route Start Time Stop Time Status Last Admin Dose Admin Albuterol 2.5 mg Q4HR PRN NEB 12/08/23 19:30 12/30/23 05:50 2.5 MG Ipratropium [place] 0.5 mg Q4HR NEB 12/08/23 22:00 12/30/23 05:50 0.5 MG Ondansetron HCl 4 mg Q4HP PRN IV 12/08/23 19:30 Pantoprazole Sodium 40 mg DAILY IV 12/09/23 10:00 12/29/23 10:21 40 MG Hydralazine HCl 10 mg Q4HP PRN IV 12/09/23 05:30 12/28/23 01:03 10 MG Sodium Chloride 10 ml QSHIFT@ IV 12/09/23 22:00 12/29/23 22:18 10 ML Metoclopramide HCl 5 mg Q6HPRN PRN IV 12/13/23 21:45 Lorazepam 1 mg Q4H PRN IV 12/17/23 00:15 12/24/23 06:15 1 MG Acetylcysteine 200 mg Q8HR NEB 12/22/23 22:00 12/30/23 05:51 200 MG Acetaminophen 650 mg Q6HP PRN PO 12/23/23 21:15 12/29/23 06:37 650 MG Enteral Nutritional Formula 1,000 ml 40ML/HR GT 12/24/23 09:15 12/29/23 07:12 1,000 ML Insulin Glargine 15 units DAILY@1000 SC 12/24/23 13:30 12/29/23 10:19 15 UNITS Diagnostic Test (Pha) 1 strip Q6HR 12/24/23 18:00 12/30/23 06:06 1 STRIP Insulin Human Regular Q6HR SC 12/24/23 18:00 12/29/23 23:05 6 UNITS Dextrose 50 ml UD PRN IV 12/24/23 13:30 Apixaban 2.5 mg BID PEG 12/26/23 22:00 12/29/23 22:21 2.5 MG Gabapentin 100 mg BID PEG 12/26/23 22:00 12/29/23 22:21 100 MG Metoprolol Tartrate 25 mg BID PEG 12/26/23 22:00 12/29/23 22:23 25 MG Levothyroxine Sodium 112 mcg QAM@0600 PEG 12/27/23 06:00 12/30/23 06:00 112 MCG Losartan Potassium 100 mg DAILY PEG 12/28/23 10:00 12/29/23 10:27 100 MG Acetaminophen/ Hydrocodone Bitart 1 tab Q4HP PRN PEG 12/28/23 16:30 12/30/23 07:44 1 TAB Examination Physical Examination: General: Patient opens eyes spontaneously to voice, on trach collar at 7L of O2, FIO2 30% sat 92% HEENT: Normocephalic, atraumatic, moist mucous membranes Respiratory/pulmonary: Bilateral lung sounds grossly clear, no major crackles or wheezes at this time. Cardiovascular: Regular heart sounds S1 and S2 with no associated murmurs. Abdomen: Abdomen nondistended, there is mild pain to palpation to the epigastric region, no palpable masses. PEG tube on place with no signs in infection at this time. Extremities: There is no bilateral pleural effusions at this time. Peripheral Pulses: 3+ Radial (R). 3+ Radial (L). 3+ Dorsalis pedis (R). 3+ Dorsalis pedis(L) Skin: No rashes or pruritus, there is no sacral edema present at this time. Neurological: Cranial nerves not able to evaluate independently. Patient responds to verbal stimuli and not head answering simple questions. Patient is slightly moving bilateral upper extremities. Patient not actively moving lower extremities. laboratory and microbiology Laboratory Tests 12/29/23 09:44 Test 12/29/23 09:44 Range/Units Serum Glucose 125 H 74-106 mg/dL Microbiology Date/Time Source Procedure Growth Status 12/21/23 09:42 Trachea Gram Stain - Final Complete 12/21/23 09:42 Respiratory Culture - Final Yeast, not [place] albicans Complete 12/14/23 19:42 Voided Urine Urine Culture - Final Complete 12/09/23 09:28 Blood Blood Culture - Final NO GROWTH AFTER 5 DAYS OF INCUBATION. Complete 12/08/23 19:00 Sputum Gram Stain - Final Complete 12/08/23 19:00 Sputum Respiratory Culture - Final Complete Problem List/Assessment/Plan Problem List/Assessment/Plan Assessment/Plan Neurology Acute metabolic encephalopathy likely in the setting of sepsis versus brain occupying lesions (metastasis/infection/stroke) -patient has a previous MRI at this facility showing no conclusive diagnosis, At [facility] did not got any conclusive diagnosis as well. -failed extubation at [facility] -CT scan of the head performed at this visit show hypodensities in bilateral cerebellum with no acute intracranial abnormalities. -MRI with contrast of the brain should be performed to clarify etiology of brain occupying lesions. Study was hold today due to YULIANA, we will wait for renal function recovery, meanwhile we will try to decrease sedation and assess neurologic response clinically. -Will order MRI of the brain with contrast (cancel it since neurology recommended MRI SPECT tomography of the brain which could not be performed at this facility) Brain lessions on MRI w/o contrast, unknown etiology -we will perform brain MRI with contrast once kidney function recovers. -lab workup performed at [facility] was negative for blastomycosis, tuberculosis, cryptococcosis Polyneuropathy -Continue gabapentin 100mg BID Sedation -OFF sedation Not on vasopressors at this time. Cardiology Acute on chronic diastolic heart failure (HFpEF 55%) -Both echocardiograms TTE YOLANDA were performed showing no vegetations or cardiac valve abn. Ruled out endocarditis -YOLANDA performed on 12/10/2023 showed normal cardiac valves with no vegetations at that time. Primary hypertension -Continue losartan 50mg QD -Continue metoprolol 25mg PO BID Respiratory S/P tracheostomy performed today in the morning (12/13/23) -Patient currently on trach collar on 7 L of O2 sat 97% on FIO2 35% Acute hypoxic respiratory failure likely in the setting of aspiration pneumonia -IV Unasyn was discontinued -on tarach collar as described above -CT of the chest/abdomen and pelvis showed no acute findings in the abdominal pelvics but showed multifocal airspace disease and cardiomegaly -chest x-ray performed today showed stable pulmonary congestion right lower lobe infiltration can not be excluded -Physical therapy working with the patient now placed order for twice a day. Sepsis in the setting of aspiration pneumonia -continue IV antibiotics as described above Infectious disease Sepsis likely due to aspiration pneumonia and UTI -Completed abs treatment UTI UA suggestive of UTI but last urine culture showed no growth -Ordered new U/A came back suggesting UTI -Urine culture came back negative Possible brain abscess/infectious occupying lesions -completed IV Unasyn treatment Endocrinology Type 2 diabetes mellitus, DKA on previous admissions -Continue moderate sliding scale insulin -Continue Lantus 15 units q.a.m. -Not on Lantus at this time Diabetic polyneuropathy -Patient sedated, monitor Hypothyroidism -Last TSH was 17.87 -today, ordered free T4 and T3 which came back 0.48 and 0.79 respectively -Continue levothyroxine 112mcgQAM -Ordered new FT4 Gastroenterology Acute transaminitis, resolved -AST 20, ALT 16 -Continue monitoring Cholelithiasis w/o cholecystitis -CT abdomen showed cholelithiasis w/o findings suggestive of cholecystitis Hematology Superficial thrombophlebitis of right cephalic and basilic veins -no need for anticoagulation DVT of the left brachial vein -Continue eliquis 2.5mg BID Nephrology YULIANA likely due to VMN -Last creatinine was 0.81 and BUN 14 -Monitor kidney function Nutrition -Continue on glucerna at 40cc/hr Continue physical therapy to twice a day Lines: Midline of right upper arm placed on 12/08/2023 (Removed) PICC line on left upper arm placed on 12/09/2023 Goals of care discussed with the patient and daughter cheikh over the phone for > 23min critical care time 36 mins Plan discussed with Dr. Razo Plan discussed with: Patient, Daughter My Orders My Orders Orders - DANELLE MENDIETA RESIDENT Procedure Category Date Status Time Complete Blood Count LAB 12/30/23 Logged 04:00 Basic Metabolic Panel LAB 12/30/23 Logged 04:00 Magnesium LAB 12/30/23 Logged 04:00 Dietary Evaluation Review Comments: 1) If GI is accessible consider Glucerna 1.2 @ 55 ml/hr goal rate as tolerated 2) If pt remains NPO >7 days consider TPN to meet at least 75% of estimated needs 3) Advance pt diet when medically feasible to a CCHO 45g/Cardiac diet modified per [employer] recommendations 4) Continue current plan of care Expected Outcomes/Goals: 1) Pt to receive nutrition support within 7 days of NPO status 2) Pt diet to advance 3) F/U in 2-3 days Date of Service: Dec 30, 2023 Billing Provider: FREEDOM RAZO MD Common Visit Codes: [id number] CARE 30-74 MIN DANELLE MENDIETA RESIDENT Dec 30, 2023 10:17 FREEDOM RAZO MD Jan 02, 2024 15:17
--- NOTE | 2023-12-30 10:44 | DVHPN2 ---
Progress Note - Dictate Date Seen: Dec 30, 2023 Has the PT tested + for MRSA If YES, has PT been informed?: No Medical Necessity Reason Pt with a Central, PICC or Fol: Yes The following are medically ne: PICC Line, Carr Catheter Reason for carr catheter: Strict I&O Subjective Mr. Sanderson is a 68 years old female with a history of hypertension, diabetes, hypothyroidism, COPD, obesity, diabetic polyneuropathy, arthritis, liver cirrhosis, she was transferred back from the [facility] on 12/08/2023 after ERCP. I have seen examined the patient, I have talked to her nurse, she is awake, follows verbal commands , she moves extremities, she does not talk to me LLU Neurosurgery consultation: The lesions likely represents infarct, recommend Re attempting MRI spectrography for further evaluation Neuro consultation: Lumbar puncture was not recommended concerning possibility of herniation EEG, 11/28/2023: No seizure/nonconvulsive status epileptics (I did not see report) TTE, 11/29/23: EF: 70-75% (I did not see report) MRI brain (no report): signal abnormality in bilateral cerebellum and right occipital lobe, punctate foci in right parietal lobe and central semiovale- unable to differentiate subacute ischemia 2/2 MR effects versus infection versus metastasis. Recommend contrast enhanced MRI MRI, 12/05/23: No evidence of demyelinating disease (I did not see report) MRI orbital, face, neck ww 12/05/2023, comparison: MR brain 11/28/2023: No evidence of mucormycosis infection. Multiple irregularly enhancing cerebellar and right occipital lesions were better evaluated on recent brain MRI MRI C-spine, 12/05/2023: No evidence of demyelinating disease in the cervical spine. Moderate degenerative changes. Grade 1 anterolisthesis of C7 on T1 MRI lumbar spine wwo, 12/05/2023: No evidence of demyelinating disease in the lumbar spine. Degenerative changes and grade 1 anterolisthesis of L4 and L5. Mild central spinal stenosis at L4-5. [id number] multilevel bilateral foraminal stenosis as described above MRI spectroscopy 12/05/2023: Cerebellar lesion showing moderately elevated Cho, reduced ZINA, large lipid peaks, and additional tics suspicious for amino acids and alanine. The alanine and amino acids are suspicious for an infectious process Treatment according to discharge note: ASA 81mg Qd, Lipitor 20 mg daily Urinalysis, 12/08/2023: WBC: 93, urine leukocyte esterase: 3+ ABG, 12/09/2023: Metabolic acidosis WBC/HB/PLT/MCV, 12/09/2023: 8.5/7.4/350/92.4 PT/INR/PTT, 12/08/2023: 11.4/1.08 Na, 12/08/2023: 147, 12/09/2023: 146, 12/19/2019 4:148 HCO3, 12/08/2023: 23, 12/10/2023: 22, 11/2123: 19, 12/13/23: 18, 12/16/2023: 15, 12/19/2023: 17 CPK, 12/18/2023: 54 TBI/AST/ALT/AP, 12/09/2023: 0.2/40/21/278 TG/HDL/LDL/HDL, 11/2023: 136/96/38/32 Vitamin B12, 11/2023: 2537 TSH, 11/2023: 17.87 YOLANDA, 12/10/2023: n the study done today no evidence of vegetation or masses were discernible. There is mild mitral valve regurgitation with mild anterior leaflet prolapse. No significant intracardiac lesion was discernible Echocardiogram, 11/18/2023: Normal left ventricular size and dimension. Normal left ventricular systolic function estimated ejection fraction 55%. There is a grade 1 diastolic dysfunction. Normal right ventricular size and dimension. Normal right ventricular systolic function. Mildly increased right ventricular systolic pressure 34 mm of mercury. Normal biatrial size and dimension. Normal aortic valve structure and function. Normal mitral valve structure and function. Normal tricuspid valve structure and function. The pulmonary valve is grossly normal. No pericardial effusion. Carotid Doppler, 11/21/2023: 1. No evidence of hemodynamically significant stenosis within the left carotid arterial system. 2. Antegrade flow within the left vertebral artery. 3. Cannot assess the right carotid arterial system due to central line artifact and overlying bandage. Extremity venous study, 12/09/2023: Thrombus in the LEFT cephalic and brachial vein. Thrombus in the RIGHT cephalic and basilic vein.If clinical concern/symptoms persist or worsen, short-interval follow-up study is suggested. Chest x-ray, 12/08/2023: 1. Endotracheal and gastric tubes in place as described. Satisfactory position. 2. Removal of right PICC and right IJ central venous catheter since prior. 3. Mild cardiomegaly and pulmonary vascular congestion. 4. Small opacity in the lateral right lung base which could reflect atelectasis or pneumonia MRI head, 11/21/2023: Signal abnormality in the bilateral cerebellum and right occipital lobe, as well as punctate foci in the right parietal lobe and centrum semiovale. Findings could represent regions of subacute ischemia due to embolic infarcts; however, underlying metastases or infection are not excluded. Recommend contrast-enhanced MRI vital signs Vital Sign Date Time Temp Pulse Resp B/P (MAP) Pulse Ox O2 Delivery O2 Flow Rate FiO2 12/30/23 08:12 98.1 67 17 152/69 (96) 96 98.1 12/30/23 06:00 Trach Collar 6 30 Cool Aerosol 30 Total Intake and Output 12/29/23 12/29/23 12/30/23 15:00 23:00 07:00 Intake Total 0 ml 580 ml Output Total 450 ml 410 ml Balance -450 ml 170 ml medications Current Medications Medications Dose Ordered Sig/Leslie Route Start Time Stop Time Status Last Admin Dose Admin Albuterol 2.5 mg Q4HR PRN NEB 12/08/23 19:30 12/30/23 05:50 2.5 MG Ipratropium [place] 0.5 mg Q4HR NEB 12/08/23 22:00 12/30/23 05:50 0.5 MG Ondansetron HCl 4 mg Q4HP PRN IV 12/08/23 19:30 Pantoprazole Sodium 40 mg DAILY IV 12/09/23 10:00 12/29/23 10:21 40 MG Hydralazine HCl 10 mg Q4HP PRN IV 12/09/23 05:30 12/28/23 01:03 10 MG Sodium Chloride 10 ml QSHIFT@ IV 12/09/23 22:00 12/29/23 22:18 10 ML Metoclopramide HCl 5 mg Q6HPRN PRN IV 12/13/23 21:45 Lorazepam 1 mg Q4H PRN IV 12/17/23 00:15 12/24/23 06:15 1 MG Acetylcysteine 200 mg Q8HR NEB 12/22/23 22:00 12/30/23 05:51 200 MG Acetaminophen 650 mg Q6HP PRN PO 12/23/23 21:15 12/29/23 06:37 650 MG Enteral Nutritional Formula 1,000 ml 40ML/HR GT 12/24/23 09:15 12/29/23 07:12 1,000 ML Insulin Glargine 15 units DAILY@1000 SC 12/24/23 13:30 12/29/23 10:19 15 UNITS Diagnostic Test (Pha) 1 strip Q6HR 12/24/23 18:00 12/30/23 06:06 1 STRIP Insulin Human Regular Q6HR SC 12/24/23 18:00 12/29/23 23:05 6 UNITS Dextrose 50 ml UD PRN IV 12/24/23 13:30 Apixaban 2.5 mg BID PEG 12/26/23 22:00 12/29/23 22:21 2.5 MG Gabapentin 100 mg BID PEG 12/26/23 22:00 12/29/23 22:21 100 MG Metoprolol Tartrate 25 mg BID PEG 12/26/23 22:00 12/29/23 22:23 25 MG Levothyroxine Sodium 112 mcg QAM@0600 PEG 12/27/23 06:00 12/30/23 06:00 112 MCG Losartan Potassium 100 mg DAILY PEG 12/28/23 10:00 12/29/23 10:27 100 MG Acetaminophen/ Hydrocodone Bitart 1 tab Q4HP PRN PEG 12/28/23 16:30 12/30/23 07:44 1 TAB objective The patient is well-nourished and well-developed with no distress. Status post tracheostomy and feeding tube insertion MENTAL STATUS: Subjective CRANIAL NERVES: Pupils are equal, round and reactive, small. There are c onjugated eye movements. No signs of facial weakness. There are no gagging or coughing reflexes during oral care SENSATION: Responses to pain stimuli. MOTOR: Normal tone in the upper and lower extremity. Normal muscle bulk. No fasciculations. Muscle Bear: Arms: Right: 3/5, left 2/5. Legs: She moves the feet a little bit REFLEXES: Deep tendon reflexes are symmetrical. Bilateral upgoing toes CEREBELLAR/COORDINATION: Deferred GAIT/STATION: deferred. laboratory and microbiology Laboratory Tests 12/29/23 09:44 Test 12/29/23 09:44 Range/Units Serum Glucose 125 H 74-106 mg/dL Problem List Abnormal MRI brain scan, likely the patient has multiple stroke Coma Metabolic encephalopathy Hypoxic encephalopathy Multiple strokes Ketoacidosis ICU myopathy, improving Bilateral upper extremity deep venous thrombosis Rule out subacute endocarditis Status post tracheostomy Status post PEG tube Assessment/Plan Monitoring Supportive treatment Respiratory support IV antibiotics Eliquis 2.5 mg b.i.d. Tube feeding Cardiology on case Infectious disease on case More recommendation per clinical course This medical document was created using an electronic medical record system with [employer] dictation system. Although this document has been carefully reviewed, there may still be some phonetic and typographical errors. These areas are purely typographical due to imperfections of the software programs, and do not reflect any compromise in the patient's medical care. Prognosis poor Dietary Evaluation Review Comments: 1) If GI is accessible consider Glucerna 1.2 @ 55 ml/hr goal rate as tolerated 2) If pt remains NPO >7 days consider TPN to meet at least 75% of estimated needs 3) Advance pt diet when medically feasible to a CCHO 45g/Cardiac diet modified per [employer] recommendations 4) Continue current plan of care Expected Outcomes/Goals: 1) Pt to receive nutrition support within 7 days of NPO status 2) Pt diet to advance 3) F/U in 2-3 days Plan discussed with: Other DREW FAGAN MD Dec 30, 2023 10:44
[2023-12-30 11:17] LABS: Anion Gap 7 (5-15); Carbon Dioxide 25 mmol/L (20-31); Chloride 103 mmol/L (98-107); Potassium 4.3 mmol/L (3.5-5.1); Sodium 135 mmol/L (136-145)
[2023-12-30 11:18] LABS: Calcium 9.7 mg/dL (8.7-10.4)
[2023-12-30 11:20] LABS: Hematocrit 30.2 % (36.0-46.0); Hemoglobin 9.6 g/dL (12.2-16.2); Mean Corpuscular Hemoglobin 27.9 pg (28.0-32.0); Mean Corpuscular Hgb Conc. 31.6 g/dL (32.0-36.0); Mean Corpuscular Volume 88.1 fL (80.0-100.0); Platelet Count (auto) 443 10^3/uL (140-450); Red Blood Cells 3.43 10^6/uL (4.0-5.20); Red Cell Distribution Width 16.6 % (11.8-14.3); White Blood Cell 7.3 10^3/uL (4.4-10.8)
[2023-12-30 11:22] LABS: Band Neutrophils % (manual) 0; Basophils % (manual) 0 (0.0-2.0); Metamyelocytes % 0; Myelocytes % 0; Promyelocytes % 0; Reactive Lymphocytes 0
[2023-12-30 11:23] LABS: Blood Urea Nitrogen 13 mg/dL (9-23); Glucose 258 mg/dL (74-106)
[2023-12-30 11:24] LABS: Magnesium 1.8 mg/dL (1.6-2.6)
[2023-12-30 12:16] LABS: Blast Cells 1; Eosinophils % (manual) 7 (0-7); Lymphocytes % (manual) 31 (10.0-50.0); Monocytes % (manual) 6 (0-12)
[2023-12-30 12:17] LABS: Platelet Estimate Adequate
--- NOTE | 2023-12-30 18:21 | DVHPN2 ---
Consult Progress Note Date Seen: Dec 29, 2023 Subjective Patient reports: Feels better (no cough no chest pain) Objective vital signs Vital Sign Date Time Temp Pulse Resp B/P (MAP) Pulse Ox O2 Delivery O2 Flow Rate FiO2 12/30/23 17:56 67 16 96 12/30/23 17:51 Trach Collar 6 30 30 12/30/23 17:00 97.1 158/71 (100) 97.1 Total Intake and Output 12/29/23 12/29/23 12/30/23 15:00 23:00 07:00 Intake Total 0 ml 580 ml Output Total 450 ml 410 ml Balance -450 ml 170 ml medications Current Medications Medications Dose Ordered Sig/Leslie Route Start Time Stop Time Status Last Admin Dose Admin Albuterol 2.5 mg Q4HR PRN NEB 12/08/23 19:30 12/30/23 13:48 2.5 MG Ipratropium [place] 0.5 mg Q4HR NEB 12/08/23 22:00 12/30/23 17:51 0.5 MG Ondansetron HCl 4 mg Q4HP PRN IV 12/08/23 19:30 Pantoprazole Sodium 40 mg DAILY IV 12/09/23 10:00 12/30/23 10:00 40 MG Hydralazine HCl 10 mg Q4HP PRN IV 12/09/23 05:30 12/28/23 01:03 10 MG Sodium Chloride 10 ml QSHIFT@ IV 12/09/23 22:00 12/30/23 10:00 10 ML Metoclopramide HCl 5 mg Q6HPRN PRN IV 12/13/23 21:45 Lorazepam 1 mg Q4H PRN IV 12/17/23 00:15 12/24/23 06:15 1 MG Acetylcysteine 200 mg Q8HR NEB 12/22/23 22:00 12/30/23 13:48 200 MG Acetaminophen 650 mg Q6HP PRN PO 12/23/23 21:15 12/29/23 06:37 650 MG Enteral Nutritional Formula 1,000 ml 40ML/HR GT 12/24/23 09:15 12/29/23 07:12 1,000 ML Insulin Glargine 15 units DAILY@1000 SC 12/24/23 13:30 12/30/23 10:00 15 UNITS Diagnostic Test (Pha) 1 strip Q6HR 12/24/23 18:00 12/30/23 17:25 1 STRIP Insulin Human Regular Q6HR SC 12/24/23 18:00 12/30/23 12:05 9 UNITS Dextrose 50 ml UD PRN IV 12/24/23 13:30 Apixaban 2.5 mg BID PEG 12/26/23 22:00 12/30/23 13:47 2.5 MG Gabapentin 100 mg BID PEG 12/26/23 22:00 12/30/23 13:42 100 MG Metoprolol Tartrate 25 mg BID PEG 12/26/23 22:00 12/30/23 13:43 25 MG Levothyroxine Sodium 112 mcg QAM@0600 PEG 12/27/23 06:00 12/30/23 06:00 112 MCG Losartan Potassium 100 mg DAILY PEG 12/28/23 10:00 12/30/23 13:43 100 MG Acetaminophen/ Hydrocodone Bitart 1 tab Q4HP PRN PEG 12/28/23 16:30 12/30/23 07:44 1 TAB PHYSICAL EXAM: - GENERAL: Alert and oriented x 3. No acute distress. Well-nourished. - EYES: EOMI. Anicteric. - HENT: Moist mucous membranes. No scleral icterus. No cervical lymphadenopathy. - LUNGS: Clear to auscultation bilaterally. No accessory muscle use. - CARDIOVASCULAR: Regular rate and rhythm. No murmur. No JVD. - ABDOMEN: Soft, non-tender and non-distended. No palpable masses. - EXTREMITIES: No edema. Non-tender.?SKIN: No rashes or lesions. Warm. - NEUROLOGIC: No focal neurological deficits. CN II-XII grossly intact, but not individually tested. - PSYCHIATRIC: Cooperative. Appropriate mood and affect. laboratory and microbiology Laboratory Tests 12/30/23 10:50 Test 12/30/23 10:50 Range/Units Serum Glucose 258 H 74-106 mg/dL Problem List/Assessment/Plan Problem List/Assessment/Plan Assessment/Plan Problems(with codes): (1) Hospital-acquired pneumonia (2) COPD (chronic obstructive pulmonary disease) (3) DKA (diabetic ketoacidosis) (4) HTN (hypertension) (5) Closed right hip fracture Plan/Recommendation ASSESSMENT AND PLAN: ID Problem List: - Aspiration pneumonia - Acute respiratory failure - Diabetic Ketoacidosis (DKA) - Sepsis due to UTI vs pneumonia - Acute Kidney Injury (YULIANA) - Hypernatremia - Transaminitis - Fatty liver - Uncontrolled diabetes (A1C of 11.7) - Hypothyroidism - Hypertension - COPD without exacerbation - Chronic kidney disease (CKD) Assessment: This is a 68-year-old female with a past medical history of diabetes, hypertension, recurrent DKA, hypothyroidism, obesity, COPD, neuropathies, mechanical falls, liver cirrhosis, and multiple joint replacements. The patient presented to the ED with acute loss of consciousness on 11/15/2023, subsequently diagnosed with DKA and an upper GI bleed. While at [facility], a CT and MRI of the head showed concerning lesions for metastasis vs. infectious process and gallbladder issues. Due to renal failure, these images were performed without contrast. An ERCP at [facility] showed no gallstones or common bile duct obstruction. Currently, the patient is reintubated on minimal sedation and receiving broad-spectrum antibiotics for presumed meningitis and other infections. 12/09: Patient has had a repeat abdomen, pelvis, chest Ct with contrast which shows no acute findings in the abdomen and pelvis. multifocal airspace in the lungs was shown. 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 12/12: sp trach 12/13: off sedation 12/19: trach 7l,elevated temps 12/23: Sputal culture is showing normal oral pharyngeal jordan, chest X-ray shows clear lungs, yesterdays X-rays show interstitial edema otherwise clear lungs. Recomend patient continue off antibiotics and just do aspiriations. If fever starts , cosider antibiotics for aspiration pnumonia , suspect Pneumonitis 12/26: Peg tube feeding were stopped , soft abdomen and having bowel movements. Chest X-ray shows mild pulmonary congestion. Otherwise patient is stable with no fevers 12/27: Peg tube is dry and intact. Restarted on Norcos. Continues to work on physical therapy Plan: - continue off antibiotics unless fever starts up - sp 3 week vancomycin and ceftriaxone course, will monitor patient off all antibiotics - aspiration precautions - Blood cultures monitoring. - Monitor respiratory status and adjust ventilator settings as necessary. - Monitor and manage blood glucose levels. - Supportive care as needed. Plan discussed with: Patient Dietary Evaluation Review Comments: 1) If GI is accessible consider Glucerna 1.2 @ 55 ml/hr goal rate as tolerated 2) If pt remains NPO >7 days consider TPN to meet at least 75% of estimated needs 3) Advance pt diet when medically feasible to a CCHO 45g/Cardiac diet modified per [employer] recommendations 4) Continue current plan of care Expected Outcomes/Goals: 1) Pt to receive nutrition support within 7 days of NPO status 2) Pt diet to advance 3) F/U in 2-3 days NITHIN ANAYA MD Dec 30, 2023 18:21
--- NOTE | 2023-12-30 21:04 | DVHPN2 ---
Consult Progress Note Date Seen: Dec 30, 2023 Subjective Patient reports: No new complaints, Other Objective vital signs Vital Sign Date Time Temp Pulse Resp B/P (MAP) Pulse Ox O2 Delivery O2 Flow Rate FiO2 12/30/23 20:57 98.2 73 18 113/53 (73) 96 98.2 12/30/23 17:51 Trach Collar 6 30 30 Total Intake and Output 12/29/23 12/29/23 12/30/23 15:00 23:00 07:00 Intake Total 0 ml 580 ml Output Total 450 ml 410 ml Balance -450 ml 170 ml medications Current Medications Medications Dose Ordered Sig/Leslie Route Start Time Stop Time Status Last Admin Dose Admin Albuterol 2.5 mg Q4HR PRN NEB 12/08/23 19:30 12/30/23 13:48 2.5 MG Ipratropium [place] 0.5 mg Q4HR NEB 12/08/23 22:00 12/30/23 17:51 0.5 MG Ondansetron HCl 4 mg Q4HP PRN IV 12/08/23 19:30 Pantoprazole Sodium 40 mg DAILY IV 12/09/23 10:00 12/30/23 10:00 40 MG Hydralazine HCl 10 mg Q4HP PRN IV 12/09/23 05:30 12/28/23 01:03 10 MG Sodium Chloride 10 ml QSHIFT@,22 IV 12/09/23 22:00 12/30/23 10:00 10 ML Metoclopramide HCl 5 mg Q6HPRN PRN IV 12/13/23 21:45 Lorazepam 1 mg Q4H PRN IV 12/17/23 00:15 12/24/23 06:15 1 MG Acetylcysteine 200 mg Q8HR NEB 12/22/23 22:00 12/30/23 13:48 200 MG Acetaminophen 650 mg Q6HP PRN PO 12/23/23 21:15 12/29/23 06:37 650 MG Enteral Nutritional Formula 1,000 ml 40ML/HR GT 12/24/23 09:15 12/29/23 07:12 1,000 ML Insulin Glargine 15 units DAILY@1000 SC 12/24/23 13:30 12/30/23 10:00 15 UNITS Diagnostic Test (Pha) 1 strip Q6HR 12/24/23 18:00 12/30/23 17:25 1 STRIP Insulin Human Regular Q6HR SC 12/24/23 18:00 12/30/23 12:05 9 UNITS Dextrose 50 ml UD PRN IV 12/24/23 13:30 Apixaban 2.5 mg BID PEG 12/26/23 22:00 12/30/23 13:47 2.5 MG Gabapentin 100 mg BID PEG 12/26/23 22:00 12/30/23 13:42 100 MG Metoprolol Tartrate 25 mg BID PEG 12/26/23 22:00 12/30/23 13:43 25 MG Levothyroxine Sodium 112 mcg QAM@0600 PEG 12/27/23 06:00 12/30/23 06:00 112 MCG Losartan Potassium 100 mg DAILY PEG 12/28/23 10:00 12/30/23 13:43 100 MG Acetaminophen/ Hydrocodone Bitart 1 tab Q4HP PRN PEG 12/28/23 16:30 12/30/23 07:44 1 TAB PHYSICAL EXAM: - GENERAL: Alert and oriented x 3. No acute distress. Well-nourished. - EYES: EOMI. Anicteric. - HENT: Moist mucous membranes. No scleral icterus. No cervical lymphadenopathy. - LUNGS: Crackles in the lungs bilaterally. No accessory muscle use. - CARDIOVASCULAR: Regular rate and rhythm. No murmur. No JVD. - ABDOMEN: Soft, non-tender and non-distended. No palpable masses. - EXTREMITIES: No edema. Non-tender.?SKIN: No rashes or lesions. Warm. - NEUROLOGIC: No focal neurological deficits. CN II-XII grossly intact, but not individually tested. - PSYCHIATRIC: Cooperative. Appropriate mood and affect. laboratory and microbiology Laboratory Tests 12/30/23 10:50 Test 12/30/23 10:50 Range/Units Serum Glucose 258 H 74-106 mg/dL Problem List/Assessment/Plan Problems(with codes): (1) COPD (chronic obstructive pulmonary disease) (2) HTN (hypertension) (3) DKA (diabetic ketoacidosis) (4) Hospital-acquired pneumonia (5) Closed right hip fracture Problem List/Assessment/Plan Assessment/Plan Problems(with codes): (1) Hospital-acquired pneumonia (2) COPD (chronic obstructive pulmonary disease) (3) DKA (diabetic ketoacidosis) (4) HTN (hypertension) (5) Closed right hip fracture Plan/Recommendation ASSESSMENT AND PLAN: ID Problem List: - Aspiration pneumonia - Acute respiratory failure - Diabetic Ketoacidosis (DKA) - Sepsis due to UTI vs pneumonia - Acute Kidney Injury (YULIANA) - Hypernatremia - Transaminitis - Fatty liver - Uncontrolled diabetes (A1C of 11.7) - Hypothyroidism - Hypertension - COPD without exacerbation - Chronic kidney disease (CKD) Assessment: This is a 68-year-old female with a past medical history of diabetes, hypertension, recurrent DKA, hypothyroidism, obesity, COPD, neuropathies, mechanical falls, liver cirrhosis, and multiple joint replacements. The patient presented to the ED with acute loss of consciousness on 11/15/2023, subsequently diagnosed with DKA and an upper GI bleed. While at [facility], a CT and MRI of the head showed concerning lesions for metastasis vs. infectious process and gallbladder issues. Due to renal failure, these images were performed without contrast. An ERCP at [facility] showed no gallstones or common bile duct obstruction. Currently, the patient is reintubated on minimal sedation and receiving broad-spectrum antibiotics for presumed meningitis and other infections. 12/09: Patient has had a repeat abdomen, pelvis, chest Ct with contrast which shows no acute findings in the abdomen and pelvis. multifocal airspace in the lungs was shown. 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 12/12: sp trach 12/13: off sedation 12/19: trach 7l,elevated temps 12/23: Sputal culture is showing normal oral pharyngeal jordan, chest X-ray shows clear lungs, yesterdays X-rays show interstitial edema otherwise clear lungs. Recomend patient continue off antibiotics and just do aspiriations. If fever starts , cosider antibiotics for aspiration pnumonia , suspect Pneumonitis 12/26: Peg tube feeding were stopped , soft abdomen and having bowel movements. Chest X-ray shows mild pulmonary congestion. Otherwise patient is stable with no fevers 12/27: Peg tube is dry and intact. Restarted on Norcos. Continues to work on physical therapy 12/29: now on 6 liters of drip , improving , recommend incentive spirometry, continue working with physical therapists and encouraged out of bed Plan: - continue off antibiotics unless fever starts up - sp 3 week vancomycin and ceftriaxone course, will monitor patient off all antibiotics - aspiration precautions - Blood cultures monitoring. - Monitor respiratory status and adjust ventilator settings as necessary. - Monitor and manage blood glucose levels. - Supportive care as needed. Plan discussed with: Other Dietary Evaluation Review Comments: 1) If GI is accessible consider Glucerna 1.2 @ 55 ml/hr goal rate as tolerated 2) If pt remains NPO >7 days consider TPN to meet at least 75% of estimated needs 3) Advance pt diet when medically feasible to a CCHO 45g/Cardiac diet modified per [employer] recommendations 4) Continue current plan of care Expected Outcomes/Goals: 1) Pt to receive nutrition support within 7 days of NPO status 2) Pt diet to advance 3) F/U in 2-3 days NITHIN ANAYA MD Dec 30, 2023 21:04
[2023-12-31] VITALS (18 sets, daily range): BP systolic 99–145; BP diastolic 47–71; PULSE 62–76; RESP 12–20; TEMP 96.8–98.5; O2SAT 86–99
[2023-12-31] MEDS ORDERED: ACETAMINOPHEN 325 MG TAB PO ONE (10:30)
[2023-12-31] MEDS: KETOROLAC TROMETH 30 MG/ML 1ML VIAL IV ONE (10:55)
--- NOTE | 2023-12-31 13:05 | DVHPNRES ---
Progress Note Date Seen: Dec 31, 2023 Resident Creating Document: DANELLE MENDIETA RESIDENT Has the PT tested + for MRSA If YES, has PT been informed?: No Medical Necessity Reason Pt with a Central, PICC or Fol: Yes The following are medically ne: PICC Line, Carr Catheter Reason for carr catheter: Strict I&O Subjective Review of Systems This is a 68-year-old female with past medical history of hypertension, diabetes mellitus type 2, hypothyroidism, COPD, obesity, diabetic polyneuropathy, liver cirrhosis, right knee replacement, multiple admissions for DKA. The patient was initially seen at [facility] on 11/16/2023 where he was intubated and transferred to our facility. At our facility he was treated for DKA and was found to have space occupying lesions in the brain (metastasis/infection/stroke) MRI of the head was done with no conclusive findings at that time. CT scan of the abdomen and pelvis at that time showed dilation of common bile duct and GI recommended ERCP/endoscopic ultrasound so patient was transferred on 11/26/2023 to [place]. ERCP and ultrasound was performed showing no obstruction either malignancy or stone at that time. Neurosurgery at [facility] evaluated MRI results and stated that could be due to infarcts. Neurologist was against lumbar puncture due to increased risk of herniation. patient was extubated on November 28, 2023 and was transferred step-down unit with 2 L of nasal cannula but lately on December 02 patient became shortness of breath tachypneic required reintubation. The patient had sepsis of unknown etiology and they thought it might be related to the brain lesions so patient was started on broad-spectrum IV antibiotics with MRSA coverage. Patient was readmitted back at [facility]. Patient was seen and examined at bedside. The patient was currently on room air saturating 94%. The patient complaining of headache this morning patient while we give single dose of ketorolac 15 mg IV and acetaminophen 650 mg once. The patient now has no complaints at this time and is working with physical therapy twice a day. We will plan to downsize trach tube on Wednesday and continue current plan of care. ROS Constitutional: Denies weight loss, fever and chills. HEENT: Denies changes in vision and hearing. Respiratory: Denies shortness of breath and cough Cardiovascular: Denies chest discomfort or palpitations GI: Denies abdominal pain, nausea, vomiting and diarrhea. : Denies dysuria and urinary frequency. Musculoskeletal: Denies myalgias and joint pain Skin: Denies rash and pruritus. Neurological: Denies dizziness, headache, vision or hearing problems Objective vital signs Vital Sign Date Time Temp Pulse Resp B/P (MAP) Pulse Ox O2 Delivery O2 Flow Rate FiO2 12/31/23 10:56 69 141/71 12/31/23 10:34 20 93 12/31/23 10:24 Room Air* 0 30 21 12/31/23 09:00 98.3 98.3 Total Intake and Output 12/30/23 12/30/23 12/31/23 15:00 23:00 07:00 Intake Total 500 ml 200 ml Output Total 400 ml Balance 100 ml 200 ml medications Current Medications Medications Dose Ordered Sig/Leslie Route Start Time Stop Time Status Last Admin Dose Admin Albuterol 2.5 mg Q4HR PRN NEB 12/08/23 19:30 12/30/23 13:48 2.5 MG Ipratropium [place] 0.5 mg Q4HR NEB 12/08/23 22:00 12/31/23 10:24 0.5 MG Ondansetron HCl 4 mg Q4HP PRN IV 12/08/23 19:30 Pantoprazole Sodium 40 mg DAILY IV 12/09/23 10:00 12/31/23 10:54 40 MG Hydralazine HCl 10 mg Q4HP PRN IV 12/09/23 05:30 12/28/23 01:03 10 MG Sodium Chloride 10 ml QSHIFT@ IV 12/09/23 22:00 12/31/23 10:00 10 ML Metoclopramide HCl 5 mg Q6HPRN PRN IV 12/13/23 21:45 Lorazepam 1 mg Q4H PRN IV 12/17/23 00:15 12/24/23 06:15 1 MG Acetylcysteine 200 mg Q8HR NEB 12/22/23 22:00 12/31/23 07:29 200 MG Acetaminophen 650 mg Q6HP PRN PO 12/23/23 21:15 12/29/23 06:37 650 MG Enteral Nutritional Formula 1,000 ml 40ML/HR GT 12/24/23 09:15 12/29/23 07:12 1,000 ML Insulin Glargine 15 units DAILY@1000 SC 12/24/23 13:30 12/31/23 10:00 15 UNITS Diagnostic Test (Pha) 1 strip Q6HR 12/24/23 18:00 12/31/23 06:06 1 STRIP Insulin Human Regular Q6HR SC 12/24/23 18:00 12/31/23 06:00 3 UNITS Dextrose 50 ml UD PRN IV 12/24/23 13:30 Apixaban 2.5 mg BID PEG 12/26/23 22:00 12/31/23 10:56 2.5 MG Gabapentin 100 mg BID PEG 12/26/23 22:00 12/31/23 10:56 100 MG Metoprolol Tartrate 25 mg BID PEG 12/26/23 22:00 12/31/23 10:56 25 MG Levothyroxine Sodium 112 mcg QAM@0600 PEG 12/27/23 06:00 12/31/23 05:48 112 MCG Losartan Potassium 100 mg DAILY PEG 12/28/23 10:00 12/31/23 10:55 100 MG Acetaminophen/ Hydrocodone Bitart 1 tab Q4HP PRN PEG 12/28/23 16:30 12/31/23 05:48 1 TAB Examination Physical Examination: General: Patient opens eyes spontaneously to voice, Breathing on rooom air sat 94% HEENT: Normocephalic, atraumatic, moist mucous membranes Respiratory/pulmonary: Bilateral lung sounds grossly clear, no major crackles or wheezes at this time. Cardiovascular: Regular heart sounds S1 and S2 with no associated murmurs. Abdomen: Abdomen nondistended, there is mild pain to palpation to the epigastric region, no palpable masses. PEG tube on place with no signs in infection at this time. Extremities: There is no bilateral pleural effusions at this time. Peripheral Pulses: 3+ Radial (R). 3+ Radial (L). 3+ Dorsalis pedis (R). 3+ Dorsalis pedis(L) Skin: No rashes or pruritus, there is no sacral edema present at this time. Neurological: Cranial nerves not able to evaluate independently. Patient responds to verbal stimuli and not head answering simple questions. Patient is slightly moving bilateral upper extremities. Patient not actively moving lower extremities. laboratory and microbiology Laboratory Tests 12/30/23 10:50 Test 12/30/23 10:50 Range/Units Serum Glucose 258 H 74-106 mg/dL Microbiology Date/Time Source Procedure Growth Status 12/21/23 09:42 Trachea Gram Stain - Final Complete 12/21/23 09:42 Respiratory Culture - Final Yeast, not [place] albicans Complete 12/14/23 19:42 Voided Urine Urine Culture - Final Complete 12/09/23 09:28 Blood Blood Culture - Final NO GROWTH AFTER 5 DAYS OF INCUBATION. Complete 12/08/23 19:00 Sputum Gram Stain - Final Complete 12/08/23 19:00 Sputum Respiratory Culture - Final Complete Problem List/Assessment/Plan Problem List/Assessment/Plan Assessment/Plan Neurology Acute metabolic encephalopathy likely in the setting of sepsis versus brain occupying lesions (metastasis/infection/stroke) -patient has a previous MRI at this facility showing no conclusive diagnosis, At [facility] did not got any conclusive diagnosis as well. -failed extubation at [place] -CT scan of the head performed at this visit show hypodensities in bilateral cerebellum with no acute intracranial abnormalities. -MRI with contrast of the brain should be performed to clarify etiology of brain occupying lesions. Study was hold today due to YULIANA, we will wait for renal function recovery, meanwhile we will try to decrease sedation and assess neurologic response clinically. -Will order MRI of the brain with contrast (cancel it since neurology recommended MRI SPECT tomography of the brain which could not be performed at this facility) Brain lessions on MRI w/o contrast, unknown etiology -we will perform brain MRI with contrast once kidney function recovers. -lab workup performed at [facility] was negative for blastomycosis, tuberculosis, cryptococcosis Polyneuropathy -Continue gabapentin 100mg BID Sedation -OFF sedation Not on vasopressors at this time. Cardiology Acute on chronic diastolic heart failure (HFpEF 55%) -Both echocardiograms TTE YOLANDA were performed showing no vegetations or cardiac valve abn. Ruled out endocarditis -YOLANDA performed on 12/10/2023 showed normal cardiac valves with no vegetations at that time. Primary hypertension -Continue losartan 50mg QD -Continue metoprolol 25mg PO BID Respiratory S/P tracheostomy performed today in the morning (12/13/23) -Patient currently on trach collar on 7 L of O2 sat 97% on FIO2 35% Acute hypoxic respiratory failure likely in the setting of aspiration pneumonia -IV Unasyn was discontinued -on tarach collar as described above -CT of the chest/abdomen and pelvis showed no acute findings in the abdominal pelvics but showed multifocal airspace disease and cardiomegaly -chest x-ray performed today showed stable pulmonary congestion right lower lobe infiltration can not be excluded -Physical therapy working with the patient now placed order for twice a day. Sepsis in the setting of aspiration pneumonia -continue IV antibiotics as described above Infectious disease Sepsis likely due to aspiration pneumonia and UTI -Completed abs treatment UTI UA suggestive of UTI but last urine culture showed no growth -Ordered new U/A came back suggesting UTI -Urine culture came back negative Possible brain abscess/infectious occupying lesions -completed IV Unasyn treatment Endocrinology Type 2 diabetes mellitus, DKA on previous admissions -Continue moderate sliding scale insulin -Continue Lantus 15 units q.a.m. -Not on Lantus at this time Diabetic polyneuropathy -Patient sedated, monitor Hypothyroidism -Last TSH was 17.87 -today, ordered free T4 and T3 which came back 0.48 and 0.79 respectively -Continue levothyroxine 112mcgQAM -Ordered new FT4 which came back at 0.70 (improving but still low) Gastroenterology Acute transaminitis, resolved -AST 20, ALT 16 -Continue monitoring Cholelithiasis w/o cholecystitis -CT abdomen showed cholelithiasis w/o findings suggestive of cholecystitis Hematology Superficial thrombophlebitis of right cephalic and basilic veins -no need for anticoagulation DVT of the left brachial vein -Continue eliquis 2.5mg BID Nephrology YULIANA likely due to VMN -Last creatinine was 0.81 and BUN 14 -Monitor kidney function Nutrition -Continue on glucerna at 40cc/hr Continue physical therapy to twice a day Lines: Midline of right upper arm placed on 12/08/2023 (Removed) PICC line on left upper arm placed on 12/09/2023 Goals of care discussed with the patient for > 23min Plan discussed with Dr. Goode Plan discussed with: Patient, Other My Orders My Orders Orders - DANELLE MENDIETA RESIDENT Procedure Category Date Status Time Complete Blood Count LAB 12/31/23 Logged 04:00 Basic Metabolic Panel LAB 12/31/23 Logged 04:00 Vitamin B12 LAB 12/31/23 Logged 04:00 Vitamin D, 25-Hydroxy LAB 12/31/23 Logged 04:00 Dietary Evaluation Review Comments: 1) If GI is accessible consider Glucerna 1.2 @ 55 ml/hr goal rate as tolerated 2) If pt remains NPO >7 days consider TPN to meet at least 75% of estimated needs 3) Advance pt diet when medically feasible to a CCHO 45g/Cardiac diet modified per [employer] recommendations 4) Continue current plan of care Expected Outcomes/Goals: 1) Pt to receive nutrition support within 7 days of NPO status 2) Pt diet to advance 3) F/U in 2-3 days Date of Service: Dec 31, 2023 Billing Provider: JONAS GOODE MD Common Visit Codes: 91951-[id number] INP/OBS CARE(HIGH) DANELLE MENDIETA RESIDENT Dec 31, 2023 13:05 JONAS GOODE MD Dec 31, 2023 20:45
[2023-12-31 17:24] LABS: Basophils # (auto) 0 10 ^3/uL (0-0.2); Eosinophils # (auto) 0.4 10 ^3/uL (0-0.8); Hemoglobin 9.7 g/dL (12.2-16.2); White Blood Cell 6.5 10^3/uL (4.4-10.8)
[2023-12-31 17:26] LABS: Basophils % (auto) 0.5 % (0.0-2.0); Eosinophils % (auto) 6.2 % (0.0-7.0); Hematocrit 30.2 % (36.0-46.0); Lymphocytes # (auto) 2.3 10 ^3/uL (0.4-5.4); Lymphocytes % (auto) 35.3 % (10.0-50.0); Mean Corpuscular Hemoglobin 27.8 pg (28.0-32.0); Mean Corpuscular Hgb Conc. 32.1 g/dL (32.0-36.0); Mean Corpuscular Volume 86.5 fL (80.0-100.0); Monocytes # (auto) 0.3 10 ^3/uL (0-1.3); Monocytes % (auto) 4.7 % (0.0-12.0); Neutrophils # (auto) 3.4 10 ^3/uL (1.6-8.6); Neutrophils % (auto) 53.3 % (37.0-80.0); Nucleated Red Blood Cells % 0.1 %; Platelet Count (auto) 489 10^3/uL (140-450); Red Blood Cells 3.49 10^6/uL (4.0-5.20); Red Cell Distribution Width 16.5 % (11.8-14.3)
[2023-12-31 17:33] LABS: Chloride 105 mmol/L (98-107); Potassium 4.2 mmol/L (3.5-5.1); Sodium 137 mmol/L (136-145)
[2023-12-31 17:34] LABS: Anion Gap 5 (5-15); Calcium 9.5 mg/dL (8.7-10.4); Carbon Dioxide 27 mmol/L (20-31)
[2023-12-31 17:39] LABS: BUN/Creatinine Ratio 17.9 (10.0-20.0); Blood Urea Nitrogen 17 mg/dL (9-23); Glucose 73 mg/dL (74-106)
[2023-12-31] MEDS: DEXTROSE (50%) 50ML SYRG IV PRN (19:12)
[2023-12-31] MEDS: ACETAMINOPHEN 650 mg PER 20.3 mL UD GT PRN (19:13)
[2024-01-01] VITALS (21 sets, daily range): BP systolic 127–169; BP diastolic 67–83; PULSE 63–97; RESP 14–20; TEMP 97.4–98.8; O2SAT 90–98
[2024-01-01 05:21] LABS: Basophils # (auto) 0.1 10 ^3/uL (0-0.2); Lymphocytes # (auto) 2.5 10 ^3/uL (0.4-5.4)
[2024-01-01 05:22] LABS: Basophils % (auto) 1.3 % (0.0-2.0); Eosinophils # (auto) 0.3 10 ^3/uL (0-0.8); Eosinophils % (auto) 4.2 % (0.0-7.0); Hemoglobin 10.7 g/dL (12.2-16.2); Lymphocytes % (auto) 31.6 % (10.0-50.0); Mean Corpuscular Hgb Conc. 32.3 g/dL (32.0-36.0); Mean Corpuscular Volume 86.7 fL (80.0-100.0); Monocytes # (auto) 0.3 10 ^3/uL (0-1.3); Neutrophils # (auto) 4.7 10 ^3/uL (1.6-8.6); Neutrophils % (auto) 58.9 % (37.0-80.0); Nucleated Red Blood Cells % 0.1 %; Platelet Count (auto) 448 10^3/uL (140-450); Red Blood Cells 3.81 10^6/uL (4.0-5.20); Red Cell Distribution Width 16.5 % (11.8-14.3); White Blood Cell 7.9 10^3/uL (4.4-10.8)
[2024-01-01 05:31] LABS: Anion Gap 9 (5-15); Carbon Dioxide 24 mmol/L (20-31); Chloride 102 mmol/L (98-107); Potassium 4.2 mmol/L (3.5-5.1); Sodium 135 mmol/L (136-145)
[2024-01-01 05:32] LABS: Calcium 9.9 mg/dL (8.7-10.4)
[2024-01-01 05:37] LABS: BUN/Creatinine Ratio 17.3 (10.0-20.0); Blood Urea Nitrogen 17 mg/dL (9-23); Glucose 213 mg/dL (74-106)
--- NOTE | 2024-01-01 13:04 | DVHPN2 ---
Subjective No new changes Reviewed: Care Plan, H&P, Labs, Medications, Previous Orders, Radiology, Other (Consultants) Changes from previous H/P or p: No Changes Objective Vitals Vital Signs Date Time Temp Pulse Resp B/P (MAP) Pulse Ox O2 Delivery O2 Flow Rate FiO2 01/01/24 12:59 97.4 70 18 148/71 (96) 96 97.4 01/01/24 07:30 Room Air* 0 N/A Trach Collar Intake/Output Intake and Output 01/01/24 07:00 Intake Total 0 ml Output Total 800 ml Balance -800 ml Intake Oral 0 ml Output Urine Total 800 ml # Bowel Movements 4 General Appearance: Alert HEENT: Atraumatic Lungs: Clear to auscultation Cardiovascular: Regular rate Abdomen: Normal bowel sounds, Soft Medications Current Medications Medications Dose Ordered Sig/Leslie Route Start Time Stop Time Status Last Admin Dose Admin Albuterol 2.5 mg Q4HR PRN NEB 12/08/23 19:30 01/01/24 09:54 2.5 MG Ipratropium [place] 0.5 mg Q4HR NEB 12/08/23 22:00 01/01/24 09:54 0.5 MG Ondansetron HCl 4 mg Q4HP PRN IV 12/08/23 19:30 Pantoprazole Sodium 40 mg DAILY IV 12/09/23 10:00 01/01/24 11:12 40 MG Hydralazine HCl 10 mg Q4HP PRN IV 12/09/23 05:30 01/01/24 00:51 10 MG Sodium Chloride 10 ml QSHIFT@ IV 12/09/23 22:00 01/01/24 11:13 10 ML Metoclopramide HCl 5 mg Q6HPRN PRN IV 12/13/23 21:45 Lorazepam 1 mg Q4H PRN IV 12/17/23 00:15 12/24/23 06:15 1 MG Acetylcysteine 200 mg Q8HR NEB 12/22/23 22:00 01/01/24 05:40 200 MG Enteral Nutritional Formula 1,000 ml 40ML/HR GT 12/24/23 09:15 12/29/23 07:12 1,000 ML Insulin Glargine 15 units DAILY@1000 SC 12/24/23 13:30 01/01/24 11:14 15 UNITS Diagnostic Test (Pha) 1 strip Q6HR 12/24/23 18:00 01/01/24 05:49 1 STRIP Insulin Human Regular Q6HR SC 12/24/23 18:00 01/01/24 05:41 6 UNITS Dextrose 50 ml UD PRN IV 12/24/23 13:30 12/31/23 19:12 50 ML Apixaban 2.5 mg BID PEG 12/26/23 22:00 01/01/24 11:12 2.5 MG Gabapentin 100 mg BID PEG 12/26/23 22:00 01/01/24 11:12 100 MG Metoprolol Tartrate 25 mg BID PEG 12/26/23 22:00 01/01/24 11:13 25 MG Levothyroxine Sodium 112 mcg QAM@0600 PEG 12/27/23 06:00 01/01/24 05:41 112 MCG Losartan Potassium 100 mg DAILY PEG 12/28/23 10:00 01/01/24 12:47 100 MG Acetaminophen/ Hydrocodone Bitart 1 tab Q4HP PRN PEG 12/28/23 16:30 12/31/23 05:48 1 TAB Acetaminophen 650 mg Q6HP PRN GT 12/31/23 19:15 01/01/24 01:51 650 MG Laboratory Results Laboratory Tests 01/01/24 04:32 Chemistry Test 12/31/23 17:00 01/01/24 04:32 Calcium Level 9.5 mg/dL (8.7-10.4) 9.9 mg/dL (8.7-10.4) Magnesium Level 2.0 mg/dL (1.6-2.6) Urinalysis Test 12/08/23 19:00 12/11/23 22:02 12/14/23 19:42 12/20/23 11:30 Urine WBC Clumps Present /hpf (None Seen) Urine Creatinine 21.88 mg/dL (30.0-125.0) L Urine Protein/Creatinine Ratio 2.01 Urine Sodium 40 mmol/L (40-220) Urine Total Protein 43.9 mg/dL (0.0-11.9) H Urine Color Light-yellow (Yellow) Urine Clarity Clear (Clear) Urine pH 6.0 (5.0-9.0) Urine Specific [place] 1.009 (1.001-1.035) Urine Protein 1+ (Negative) H Urine Ketones Negative (Negative) Urine Blood 2+ /uL (Negative) H Urine Nitrite Negative (Negative) Urine Bilirubin Negative (Negative) Urine Urobilinogen Normal mg/dL (Negative) Urine Leukocyte Esterase 2+ /uL (Negative) Urine RBC 6 /hpf (0 - 4) Urine WBC 68 /hpf (0 - 5) Urine Squamous Epithelial Cells None seen /hpf (<5) Urine Bacteria Few /hpf (None Seen) H Urine Glucose Normal mg/dL (Normal) Urine Osmolality 316 mOsm/kg Microbiology Microbiology Date/Time Source Procedure Growth Status 12/21/23 09:42 Trachea Gram Stain - Final Complete 12/21/23 09:42 Respiratory Culture - Final Yeast, not [place]app[place] albicans Complete 12/14/23 19:42 Voided Urine Urine Culture - Final Complete 12/09/23 09:28 Blood Blood Culture - Final NO GROWTH AFTER 5 DAYS OF INCUBATION. Complete 12/08/23 19:00 Sputum Gram Stain - Final Complete 12/08/23 19:00 Sputum Respiratory Culture - Final Complete Assessment/Plan Assessment/Plan Status post acute respiratory failure and tracheostomy placement/currently on collar Diastolic heart failure Aspiration pneumonia with sepsis UTI Diabetes Diabetic polyneuropathy Hypothyroidism Cholelithiasis Superficial right thrombophlebitis DVT of the left brachial vein Plan: Continue current plan of care. Plan discussed with: Patient Date of Service: Jan 01, 2024 Billing Provider: JONAS GOODE MD Common Visit Codes: [id number] INP/OBS CARE(HIGH) JONAS GOODE MD Jan 01, 2024 13:04
[2024-01-01 16:56] LABS: Basophils # (auto) 0.1 10 ^3/uL (0-0.2); Eosinophils # (auto) 0.2 10 ^3/uL (0-0.8); Monocytes # (auto) 0.5 10 ^3/uL (0-1.3); Nucleated Red Blood Cells % 0.3 %; White Blood Cell 7.7 10^3/uL (4.4-10.8)
[2024-01-01 16:58] LABS: Basophils % (auto) 0.8 % (0.0-2.0); Eosinophils % (auto) 2.9 % (0.0-7.0); Hematocrit 34.3 % (36.0-46.0); Hemoglobin 10.9 g/dL (12.2-16.2); Lymphocytes # (auto) 2.5 10 ^3/uL (0.4-5.4); Lymphocytes % (auto) 32.4 % (10.0-50.0); Mean Corpuscular Hemoglobin 27.8 pg (28.0-32.0); Mean Corpuscular Hgb Conc. 31.6 g/dL (32.0-36.0); Monocytes % (auto) 6.1 % (0.0-12.0); Neutrophils # (auto) 4.4 10 ^3/uL (1.6-8.6); Neutrophils % (auto) 57.8 % (37.0-80.0); Platelet Count (auto) 471 10^3/uL (140-450); Red Cell Distribution Width 16.4 % (11.8-14.3)
[2024-01-02] VITALS (14 sets, daily range): BP systolic 141–163; BP diastolic 66–82; PULSE 64–86; RESP 12–20; TEMP 97.6–98.5; O2SAT 90–100
--- NOTE | 2024-01-02 00:01 | DVHPN2 ---
Consult Progress Note Date Seen: Dec 31, 2023 Subjective Patient reports: Feels better (doing well off all antibiotics) Objective vital signs Vital Sign Date Time Temp Pulse Resp B/P (MAP) Pulse Ox O2 Delivery O2 Flow Rate FiO2 01/01/24 22:09 79 18 98 01/01/24 22:00 98.8 139/73 (95) 98.8 01/01/24 18:03 Room Air* 0 21 Total Intake and Output 01/01/24 01/01/24 01/02/24 15:00 23:00 07:00 Intake Total 480 ml Output Total 1050 ml Balance -570 ml medications Current Medications Medications Dose Ordered Sig/Leslie Route Start Time Stop Time Status Last Admin Dose Admin Albuterol 2.5 mg Q4HR PRN NEB 12/08/23 19:30 01/01/24 22:11 2.5 MG Ipratropium [place] 0.5 mg Q4HR NEB 12/08/23 22:00 01/01/24 22:11 0.5 MG Ondansetron HCl 4 mg Q4HP PRN IV 12/08/23 19:30 Pantoprazole Sodium 40 mg DAILY IV 12/09/23 10:00 01/01/24 11:12 40 MG Hydralazine HCl 10 mg Q4HP PRN IV 12/09/23 05:30 01/01/24 00:51 10 MG Sodium Chloride 10 ml QSHIFT@10,22 IV 12/09/23 22:00 01/01/24 22:07 10 ML Metoclopramide HCl 5 mg Q6HPRN PRN IV 12/13/23 21:45 Lorazepam 1 mg Q4H PRN IV 12/17/23 00:15 12/24/23 06:15 1 MG Acetylcysteine 200 mg Q8HR NEB 12/22/23 22:00 01/01/24 22:12 200 MG Enteral Nutritional Formula 1,000 ml 40ML/HR GT 12/24/23 09:15 12/29/23 07:12 1,000 ML Insulin Glargine 15 units DAILY@1000 SC 12/24/23 13:30 01/01/24 11:14 15 UNITS Diagnostic Test (Pha) 1 strip Q6HR 12/24/23 18:00 01/01/24 23:53 1 STRIP Insulin Human Regular Q6HR SC 12/24/23 18:00 01/01/24 23:54 3 UNITS Dextrose 50 ml UD PRN IV 12/24/23 13:30 12/31/23 19:12 50 ML Apixaban 2.5 mg BID PEG 12/26/23 22:00 01/01/24 21:44 2.5 MG Gabapentin 100 mg BID PEG 12/26/23 22:00 01/01/24 21:44 100 MG Metoprolol Tartrate 25 mg BID PEG 12/26/23 22:00 01/01/24 21:46 25 MG Levothyroxine Sodium 112 mcg QAM@0600 PEG 12/27/23 06:00 01/01/24 05:41 112 MCG Losartan Potassium 100 mg DAILY PEG 12/28/23 10:00 01/01/24 12:47 100 MG Acetaminophen/ Hydrocodone Bitart 1 tab Q4HP PRN PEG 12/28/23 16:30 01/01/24 17:54 1 TAB Acetaminophen 650 mg Q6HP PRN GT 12/31/23 19:15 01/01/24 01:51 650 MG PHYSICAL EXAM: - GENERAL: Alert and oriented x 3. No acute distress. Well-nourished. -EYES: EOMI. Anicteric. - HENT: Moist mucous membranes. No scleral icterus. No cervical lymphadenopathy. - LUNGS: Clear to auscultation bilaterally. No accessory muscle use. - CARDIOVASCULAR: Regular rate and rhythm. No murmur. No JVD. - ABDOMEN: Soft, non-tender and non-distended. No palpable masses. - EXTREMITIES: No edema. Non-tender.?SKIN: No rashes or lesions. Warm. - NEUROLOGIC: No focal neurological deficits. CN II-XII grossly intact, but not individually tested. - PSYCHIATRIC: Cooperative. Appropriate mood and affect. laboratory and microbiology Laboratory Tests 01/01/24 16:33 01/01/24 04:32 Test 01/01/24 04:32 Range/Units Serum Glucose 213 H 74-106 mg/dL Problem List/Assessment/Plan Problem List/Assessment/Plan Assessment/Plan Problems(with codes): (1) Hospital-acquired pneumonia (2) COPD (chronic obstructive pulmonary disease) (3) DKA (diabetic ketoacidosis) (4) HTN (hypertension) (5) Closed right hip fracture Plan/Recommendation ASSESSMENT AND PLAN: ID Problem List: - Aspiration pneumonia - Acute respiratory failure - Diabetic Ketoacidosis (DKA) - Sepsis due to UTI vs pneumonia - Acute Kidney Injury (YULIANA) - Hypernatremia - Transaminitis - Fatty liver - Uncontrolled diabetes (A1C of 11.7) - Hypothyroidism - Hypertension - COPD without exacerbation - Chronic kidney disease (CKD) Assessment: This is a 68-year-old female with a past medical history of diabetes, hypertension, recurrent DKA, hypothyroidism, obesity, COPD, neuropathies, mechanical falls, liver cirrhosis, and multiple joint replacements. The patient presented to the ED with acute loss of consciousness on 11/15/2023, subsequently diagnosed with DKA and an upper GI bleed. While at [facility], a CT and MRI of the head showed concerning lesions for metastasis vs. infectious process and gallbladder issues. Due to renal failure, these images were performed without contrast. An ERCP at [facility] showed no gallstones or common bile duct obstruction. Currently, the patient is reintubated on minimal sedation and receiving broad-spectrum antibiotics for presumed meningitis and other infections. 12/09: Patient has had a repeat abdomen, pelvis, chest Ct with contrast which shows no acute findings in the abdomen and pelvis. multifocal airspace in the lungs was shown. 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 12/12: sp trach 12/13: off sedation 12/19: trach 7l,elevated temps 12/23: Sputal culture is showing normal oral pharyngeal jordan, chest X-ray shows clear lungs, yesterdays X-rays show interstitial edema otherwise clear lungs. Recomend patient continue off antibiotics and just do aspiriations. If fever starts , cosider antibiotics for aspiration pnumonia , suspect Pneumonitis 12/26: Peg tube feeding were stopped , soft abdomen and having bowel movements. Chest X-ray shows mild pulmonary congestion. Otherwise patient is stable with no fevers 12/27: Peg tube is dry and intact. Restarted on [place]. Continues to work on physical therapy 12/29: now on 6 liters of drip , improving , recommend incentive spirometry, continue working with physical therapists and encouraged out of bed Plan: - continue off antibiotics unless fever starts up - sp 3 week vancomycin and ceftriaxone course, will monitor patient off all antibiotics - aspiration precautions - Blood cultures monitoring. - Monitor respiratory status and adjust ventilator settings as necessary. - Monitor and manage blood glucose levels. - Supportive care as needed. Plan discussed with: Patient Dietary Evaluation Review Comments: 1) If GI is accessible consider Glucerna 1.2 @ 55 ml/hr goal rate as tolerated 2) If pt remains NPO >7 days consider TPN to meet at least 75% of estimated needs 3) Advance pt diet when medically feasible to a CCHO 45g/Cardiac diet modified per ROAST MASTER recommendations 4) Continue current plan of care Expected Outcomes/Goals: 1) Pt to receive nutrition support within 7 days of NPO status 2) Pt diet to advance 3) F/U in 2-3 days NITHIN ANAYA MD Jan 02, 2024 00:01
--- NOTE | 2024-01-02 00:01 | DVHPN2 ---
Consult Progress Note Date Seen: Jan 01, 2024 Subjective Patient reports: Feels better (hb stable after a day of bloody UOP.) Objective vital signs Vital Sign Date Time Temp Pulse Resp B/P (MAP) Pulse Ox O2 Delivery O2 Flow Rate FiO2 01/01/24 22:09 79 18 98 01/01/24 22:00 98.8 139/73 (95) 98.8 01/01/24 18:03 Room Air* 0 21 Total Intake and Output 01/01/24 01/01/24 01/02/24 15:00 23:00 07:00 Intake Total 480 ml Output Total 1050 ml Balance -570 ml medications Current Medications Medications Dose Ordered Sig/Leslie Route Start Time Stop Time Status Last Admin Dose Admin Albuterol 2.5 mg Q4HR PRN NEB 12/08/23 19:30 01/01/24 22:11 2.5 MG Ipratropium [place] 0.5 mg Q4HR NEB 12/08/23 22:00 01/01/24 22:11 0.5 MG Ondansetron HCl 4 mg Q4HP PRN IV 12/08/23 19:30 Pantoprazole Sodium 40 mg DAILY IV 12/09/23 10:00 01/01/24 11:12 40 MG Hydralazine HCl 10 mg Q4HP PRN IV 12/09/23 05:30 01/01/24 00:51 10 MG Sodium Chloride 10 ml QSHIFT@,22 IV 12/09/23 22:00 01/01/24 22:07 10 ML Metoclopramide HCl 5 mg Q6HPRN PRN IV 12/13/23 21:45 Lorazepam 1 mg Q4H PRN IV 12/17/23 00:15 12/24/23 06:15 1 MG Acetylcysteine 200 mg Q8HR NEB 12/22/23 22:00 01/01/24 22:12 200 MG Enteral Nutritional Formula 1,000 ml 40ML/HR GT 12/24/23 09:15 12/29/23 07:12 1,000 ML Insulin Glargine 15 units DAILY@1000 SC 12/24/23 13:30 01/01/24 11:14 15 UNITS Diagnostic Test (Pha) 1 strip Q6HR 12/24/23 18:00 01/01/24 23:53 1 STRIP Insulin Human Regular Q6HR SC 12/24/23 18:00 01/01/24 23:54 3 UNITS Dextrose 50 ml UD PRN IV 12/24/23 13:30 12/31/23 19:12 50 ML Apixaban 2.5 mg BID PEG 12/26/23 22:00 01/01/24 21:44 2.5 MG Gabapentin 100 mg BID PEG 12/26/23 22:00 01/01/24 21:44 100 MG Metoprolol Tartrate 25 mg BID PEG 12/26/23 22:00 01/01/24 21:46 25 MG Levothyroxine Sodium 112 mcg QAM@0600 PEG 12/27/23 06:00 01/01/24 05:41 112 MCG Losartan Potassium 100 mg DAILY PEG 12/28/23 10:00 01/01/24 12:47 100 MG Acetaminophen/ Hydrocodone Bitart 1 tab Q4HP PRN PEG 12/28/23 16:30 01/01/24 17:54 1 TAB Acetaminophen 650 mg Q6HP PRN GT 12/31/23 19:15 01/01/24 01:51 650 MG PHYSICAL EXAM: - GENERAL: Alert and oriented x 3. No acute distress. Well-nourished. - EYES: EOMI. Anicteric. - HENT: Moist mucous membranes. No scleral icterus. No cervical lymphadenopathy. - LUNGS: Clear to auscultation bilaterally. No accessory muscle use. - CARDIOVASCULAR: Regular rate and rhythm. No murmur. No JVD. - ABDOMEN: Soft, non-tender and non-distended. No palpable masses. - EXTREMITIES: No edema. Non-tender.?SKIN: No rashes or lesions. Warm. - NEUROLOGIC: No focal neurological deficits. CN II-XII grossly intact, but not individually tested. - PSYCHIATRIC: Cooperative. Appropriate mood and affect. laboratory and microbiology Laboratory Tests 01/01/24 16:33 01/01/24 04:32 Test 01/01/24 04:32 Range/Units Serum Glucose 213 H 74-106 mg/dL Problem List/Assessment/Plan Problem List/Assessment/Plan Assessment/Plan Problems(with codes): (1) Hospital-acquired pneumonia (2) COPD (chronic obstructive pulmonary disease) (3) DKA (diabetic ketoacidosis) (4) HTN (hypertension) (5) Closed right hip fracture Plan/Recommendation ASSESSMENT AND PLAN: ID Problem List: - Aspiration pneumonia - Acute respiratory failure - Diabetic Ketoacidosis (DKA) - Sepsis due to UTI vs pneumonia - Acute Kidney Injury (YULIANA) - Hypernatremia - Transaminitis - Fatty liver - Uncontrolled diabetes (A1C of 11.7) - Hypothyroidism - Hypertension - COPD without exacerbation - Chronic kidney disease (CKD) Assessment: This is a 68-year-old female with a past medical history of diabetes, hypertension, recurrent DKA, hypothyroidism, obesity, COPD, neuropathies, mechanical falls, liver cirrhosis, and multiple joint replacements. The patient presented to the ED with acute loss of consciousness on 11/15/2023, subsequently diagnosed with DKA and an upper GI bleed. While at [facility], a CT and MRI of the head showed concerning lesions for metastasis vs. infectious process and gallbladder issues. Due to renal failure, these images were performed without contrast. An ERCP at [facility] showed no gallstones or common bile duct obstruction. Currently, the patient is reintubated on minimal sedation and receiving broad-spectrum antibiotics for presumed meningitis and other infections. 12/09: Patient has had a repeat abdomen, pelvis, chest Ct with contrast which shows no acute findings in the abdomen and pelvis. multifocal airspace in the lungs was shown. 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 12/12: sp trach 12/13: off sedation 12/19: trach 7l,elevated temps 12/23: Sputal culture is showing normal oral pharyngeal jordan, chest X-ray shows clear lungs, yesterdays X-rays show interstitial edema otherwise clear lungs. Recomend patient continue off antibiotics and just do aspiriations. If fever starts , cosider antibiotics for aspiration pnumonia , suspect Pneumonitis 12/26: Peg tube feeding were stopped , soft abdomen and having bowel movements. Chest X-ray shows mild pulmonary congestion. Otherwise patient is stable with no fevers 12/27: Peg tube is dry and intact. Restarted on [place]. Continues to work on physical therapy 12/29: now on 6 liters of drip , improving , recommend incentive spirometry, continue working with physical therapists and encouraged out of bed Plan: - continue off antibiotics unless fever starts up - sp 3 week vancomycin and ceftriaxone course, will monitor patient off all antibiotics - aspiration precautions - Blood cultures monitoring. - Monitor respiratory status and adjust ventilator settings as necessary. - Monitor and manage blood glucose levels. - Supportive care as needed. Plan discussed with: Patient Dietary Evaluation Review Comments: 1) If GI is accessible consider Glucerna 1.2 @ 55 ml/hr goal rate as tolerated 2) If pt remains NPO >7 days consider TPN to meet at least 75% of estimated needs 3) Advance pt diet when medically feasible to a CCHO 45g/Cardiac diet modified per PRODUCTION STATISTICAL CLERK recommendations 4) Continue current plan of care Expected Outcomes/Goals: 1) Pt to receive nutrition support within 7 days of NPO status 2) Pt diet to advance 3) F/U in 2-3 days NITHIN ANAYA MD Jan 02, 2024 00:01
--- NOTE | 2024-01-02 14:06 | DVHPN2 ---
Subjective No new changes Reviewed: Care Plan, H&P, Labs, Medications, Previous Orders, Radiology, Other (Consultants) Changes from previous H/P or p: No Changes Objective Vitals Vital Signs Date Time Temp Pulse Resp B/P (MAP) Pulse Ox O2 Delivery O2 Flow Rate FiO2 01/02/24 12:46 163/76 01/02/24 12:46 98.1 69 20 97 98.1 01/02/24 07:47 Room Air* 0 N/A Trach Collar Intake/Output Intake and Output 01/02/24 07:00 Intake Total 480 ml Output Total 1465 ml Balance -985 ml Intake Oral 0 ml Tube Feeding 480 ml Output Urine Total 1465 ml # Bowel Movements 2 General Appearance: Alert HEENT: Atraumatic Lungs: Clear to auscultation Cardiovascular: Regular rate Abdomen: Normal bowel sounds, Soft Medications Current Medications Medications Dose Ordered Sig/Leslie Route Start Time Stop Time Status Last Admin Dose Admin Albuterol 2.5 mg Q4HR PRN NEB 12/08/23 19:30 01/02/24 02:41 2.5 MG Ipratropium [place] 0.5 mg Q4HR NEB 12/08/23 22:00 01/02/24 02:41 0.5 MG Ondansetron HCl 4 mg Q4HP PRN IV 12/08/23 19:30 Pantoprazole Sodium 40 mg DAILY IV 12/09/23 10:00 01/02/24 10:00 40 MG Hydralazine HCl 10 mg Q4HP PRN IV 12/09/23 05:30 01/02/24 12:46 10 MG Sodium Chloride 10 ml QSHIFT@ IV 12/09/23 22:00 01/02/24 10:00 10 ML Metoclopramide HCl 5 mg Q6HPRN PRN IV 12/13/23 21:45 Lorazepam 1 mg Q4H PRN IV 12/17/23 00:15 12/24/23 06:15 1 MG Acetylcysteine 200 mg Q8HR NEB 12/22/23 22:00 01/01/24 22:12 200 MG Enteral Nutritional Formula 1,000 ml 40ML/HR GT 12/24/23 09:15 01/02/24 01:27 1,000 ML Insulin Glargine 15 units DAILY@1000 SC 12/24/23 13:30 01/02/24 10:00 15 UNITS Diagnostic Test (Pha) 1 strip Q6HR 12/24/23 18:00 01/02/24 12:00 1 STRIP Insulin Human Regular Q6HR SC 12/24/23 18:00 01/02/24 12:00 3 UNITS Dextrose 50 ml UD PRN IV 12/24/23 13:30 12/31/23 19:12 50 ML Apixaban 2.5 mg BID PEG 12/26/23 22:00 01/02/24 10:00 2.5 MG Gabapentin 100 mg BID PEG 12/26/23 22:00 01/02/24 10:00 100 MG Metoprolol Tartrate 25 mg BID PEG 12/26/23 22:00 01/02/24 10:00 25 MG Levothyroxine Sodium 112 mcg QAM@0600 PEG 12/27/23 06:00 01/02/24 06:19 112 MCG Losartan Potassium 100 mg DAILY PEG 12/28/23 10:00 01/02/24 10:00 100 MG Acetaminophen/ Hydrocodone Bitart 1 tab Q4HP PRN PEG 12/28/23 16:30 01/01/24 17:54 1 TAB Acetaminophen 650 mg Q6HP PRN GT 12/31/23 19:15 01/02/24 10:41 650 MG Laboratory Results Laboratory Tests 01/01/24 04:32 01/01/24 16:33 Urinalysis Test 12/08/23 19:00 12/11/23 22:02 12/14/23 19:42 12/20/23 11:30 Urine WBC Clumps Present /hpf (None Seen) Urine Creatinine 21.88 mg/dL (30.0-125.0) L Urine Protein/Creatinine Ratio 2.01 Urine Sodium 40 mmol/L (40-220) Urine Total Protein 43.9 mg/dL (0.0-11.9) H Urine Color Light-yellow (Yellow) Urine Clarity Clear (Clear) Urine pH 6.0 (5.0-9.0) Urine Specific [place] 1.009 (1.001-1.035) Urine Protein 1+ (Negative) H Urine Ketones Negative (Negative) Urine Blood 2+ /uL (Negative) H Urine Nitrite Negative (Negative) Urine Bilirubin Negative (Negative) Urine Urobilinogen Normal mg/dL (Negative) Urine Leukocyte Esterase 2+ /uL (Negative) Urine RBC 6 /hpf (0 - 4) Urine WBC 68 /hpf (0 - 5) Urine Squamous Epithelial Cells None seen /hpf (<5) Urine Bacteria Few /hpf (None Seen) H Urine Glucose Normal mg/dL (Normal) Urine Osmolality 316 mOsm/kg Microbiology Microbiology Date/Time Source Procedure Growth Status 12/21/23 09:42 Trachea Gram Stain - Final Complete 12/21/23 09:42 Respiratory Culture - Final Yeast, not [place] albicans Complete 12/14/23 19:42 Voided Urine Urine Culture - Final Complete 12/09/23 09:28 Blood Blood Culture - Final NO GROWTH AFTER 5 DAYS OF INCUBATION. Complete 12/08/23 19:00 Sputum Gram Stain - Final Complete 12/08/23 19:00 Sputum Respiratory Culture - Final Complete Assessment/Plan Assessment/Plan Status post acute respiratory failure and tracheostomy placement/currently on collar Diastolic heart failure Aspiration pneumonia with sepsis UTI Diabetes Diabetic polyneuropathy Hypothyroidism Cholelithiasis Superficial right thrombophlebitis DVT of the left brachial vein Hypertension /not well controlled Plan: Increase metoprolol to 37.5 mg p.o. b.i.d.. Continue other plan of care. Plan discussed with: Patient Date of Service: Jan 02, 2024 Billing Provider: JONAS GOODE MD Common Visit Codes: [id number] INP/OBS CARE(HIGH) JONAS GOODE MD Jan 02, 2024 14:05
[2024-01-02] MEDS: METOPROLOL TARTRATE 25 MG TAB PEG SCH (14:15)
--- NOTE | 2024-01-02 20:49 | DVHPN2 ---
Consult Progress Note Date Seen: Jan 02, 2024 Subjective Patient reports: No new complaints (tachycardic last couple days , cardiology increased isopaterinal , pain is somewhat controlled but still has generalized pain, worse when working with physcial therapy) Objective vital signs Vital Sign Date Time Temp Pulse Resp B/P (MAP) Pulse Ox O2 Delivery O2 Flow Rate FiO2 01/02/24 17:58 74 18 95 01/02/24 17:50 Room Air 01/02/24 17:50 0 21 01/02/24 12:46 163/76 01/02/24 12:46 98.1 98.1 Total Intake and Output 01/01/24 01/01/24 01/02/24 15:00 23:00 07:00 Intake Total 480 ml Output Total 1050 ml 415 ml Balance -570 ml -415 ml medications Current Medications Medications Dose Ordered Sig/Leslie Route Start Time Stop Time Status Last Admin Dose Admin Albuterol 2.5 mg Q4HR PRN NEB 12/08/23 19:30 01/02/24 17:59 2.5 MG Ipratropium [place] 0.5 mg Q4HR NEB 12/08/23 22:00 01/02/24 17:59 0.5 MG Ondansetron HCl 4 mg Q4HP PRN IV 12/08/23 19:30 Pantoprazole Sodium 40 mg DAILY IV 12/09/23 10:00 01/02/24 10:00 40 MG Hydralazine HCl 10 mg Q4HP PRN IV 12/09/23 05:30 01/02/24 12:46 10 MG Sodium Chloride 10 ml QSHIFT@ IV 12/09/23 22:00 01/02/24 10:00 10 ML Metoclopramide HCl 5 mg Q6HPRN PRN IV 12/13/23 21:45 Lorazepam 1 mg Q4H PRN IV 12/17/23 00:15 12/24/23 06:15 1 MG Acetylcysteine 200 mg Q8HR NEB 12/22/23 22:00 01/01/24 22:12 200 MG Enteral Nutritional Formula 1,000 ml 40ML/HR GT 12/24/23 09:15 01/02/24 01:27 1,000 ML Insulin Glargine 15 units DAILY@1000 SC 12/24/23 13:30 01/02/24 10:00 15 UNITS Diagnostic Test (Pha) 1 strip Q6HR 12/24/23 18:00 01/02/24 17:17 1 STRIP Insulin Human Regular Q6HR SC 12/24/23 18:00 01/02/24 12:00 3 UNITS Dextrose 50 ml UD PRN IV 12/24/23 13:30 01/02/24 17:07 50 ML Apixaban 2.5 mg BID PEG 12/26/23 22:00 01/02/24 10:00 2.5 MG Gabapentin 100 mg BID PEG 12/26/23 22:00 01/02/24 10:00 100 MG Levothyroxine Sodium 112 mcg QAM@0600 PEG 12/27/23 06:00 01/02/24 06:19 112 MCG Losartan Potassium 100 mg DAILY PEG 12/28/23 10:00 01/02/24 10:00 100 MG Acetaminophen/ Hydrocodone Bitart 1 tab Q4HP PRN PEG 12/28/23 16:30 01/01/24 17:54 1 TAB Acetaminophen 650 mg Q6HP PRN GT 12/31/23 19:15 01/02/24 10:41 650 MG Metoprolol Tartrate 37.5 mg BID PEG 01/02/24 14:15 PHYSICAL EXAM: - GENERAL: Alert and oriented x 3. No acute distress. Well-nourished. - EYES: EOMI. Anicteric. - HENT: Moist mucous membranes. No scleral icterus. No cervical lymphadenopathy. - LUNGS: Clear to auscultation bilaterally. No accessory muscle use. - CARDIOVASCULAR: Regular rate and rhythm. No murmur. No JVD. - ABDOMEN: Soft, non-tender and non-distended. No palpable masses. - EXTREMITIES: No edema. Non-tender.?SKIN: No rashes or lesions. Warm. - NEUROLOGIC: No focal neurological deficits. CN II-XII grossly intact, but not individually tested. - PSYCHIATRIC: Cooperative. Appropriate mood and affect. laboratory and microbiology Laboratory Tests 01/01/24 16:33 01/01/24 04:32 Test 01/01/24 04:32 Range/Units Serum Glucose 213 H 74-106 mg/dL Problem List/Assessment/Plan Problems(with codes): (1) Closed right hip fracture (2) Hospital-acquired pneumonia (3) DKA (diabetic ketoacidosis) (4) HTN (hypertension) (5) COPD (chronic obstructive pulmonary disease) Problem List/Assessment/Plan Assessment/Plan Problems(with codes): (1) Hospital-acquired pneumonia (2) COPD (chronic obstructive pulmonary disease) (3) DKA (diabetic ketoacidosis) (4) HTN (hypertension) (5) Closed right hip fracture Plan/Recommendation ASSESSMENT AND PLAN: ID Problem List: - Aspiration pneumonia - Acute respiratory failure - Diabetic Ketoacidosis (DKA) - Sepsis due to UTI vs pneumonia - Acute Kidney Injury (YULIANA) - Hypernatremia - Transaminitis - Fatty liver - Uncontrolled diabetes (A1C of 11.7) - Hypothyroidism - Hypertension - COPD without exacerbation - Chronic kidney disease (CKD) Assessment: This is a 68-year-old female with a past medical history of diabetes, hypertension, recurrent DKA, hypothyroidism, obesity, COPD, neuropathies, mechanical falls, liver cirrhosis, and multiple joint replacements. The patient presented to the ED with acute loss of consciousness on 11/15/2023, subsequently diagnosed with DKA and an upper GI bleed. While at [facility], a CT and MRI of the head showed concerning lesions for metastasis vs. infectious process and gallbladder issues. Due to renal failure, these images were performed without contrast. An ERCP at [facility] showed no gallstones or common bile duct obstruction. Currently, the patient is reintubated on minimal sedation and receiving broad-spectrum antibiotics for presumed meningitis and other infections. 12/09: Patient has had a repeat abdomen, pelvis, chest Ct with contrast which shows no acute findings in the abdomen and pelvis. multifocal airspace in the lungs was shown. 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 12/12: sp trach 12/13: off sedation 12/19: trach 7l,elevated temps 12/23: Sputal culture is showing normal oral pharyngeal jordan, chest X-ray shows clear lungs, yesterdays X-rays show interstitial edema otherwise clear lungs. Recomend patient continue off antibiotics and just do aspiriations. If fever starts , cosider antibiotics for aspiration pnumonia , suspect Pneumonitis 12/26: Peg tube feeding were stopped , soft abdomen and having bowel movements. Chest X-ray shows mild pulmonary congestion. Otherwise patient is stable with no fevers 12/27: Peg tube is dry and intact. Restarted on [place]. Continues to work on physical therapy 12/29: now on 6 liters of drip , improving , recommend incentive spirometry, continue working with physical therapists and encouraged out of bed Plan: - continue off antibiotics unless fever starts up - sp 3 week vancomycin and ceftriaxone course, will monitor patient off all antibiotics - aspiration precautions - Blood cultures monitoring. - Monitor respiratory status and adjust ventilator settings as necessary. - Monitor and manage blood glucose levels. - Supportive care as needed. Plan discussed with: Patient Dietary Evaluation Review Comments: 1) If GI is accessible consider Glucerna 1.2 @ 55 ml/hr goal rate as tolerated 2) If pt remains NPO >7 days consider TPN to meet at least 75% of estimated needs 3) Advance pt diet when medically feasible to a CCHO 45g/Cardiac diet modified per [employer] recommendations 4) Continue current plan of care Expected Outcomes/Goals: 1) Pt to receive nutrition support within 7 days of NPO status 2) Pt diet to advance 3) F/U in 2-3 days NITHIN ANAYA MD Jan 02, 2024 20:49
--- NOTE | 2024-01-02 20:52 | DVHPN2 ---
Progress Note - Dictate Date Seen: Jan 02, 2024 Has the PT tested + for MRSA If YES, has PT been informed?: No Medical Necessity Reason Pt with a Central, PICC or Fol: Yes The following are medically ne: PICC Line, Carr Catheter Reason for carr catheter: Strict I&O Subjective Mr. Sanderson is a 68 years old female with a history of hypertension, diabetes, hypothyroidism, COPD, obesity, diabetic polyneuropathy, arthritis, liver cirrhosis, she was transferred back from the [facility] on 12/08/2023 after ERCP. I have seen examined the patient, I have talked to her nurse, she is awake, follows verbal commands , she moves extremities, she uses sign to talk to me RN: Agitated sometimes LLU Neurosurgery consultation: The lesions likely represents infarct, recommend Re attempting MRI spectrography for further evaluation Neuro consultation: Lumbar puncture was not recommended concerning possibility of herniation EEG, 11/28/2023: No seizure/nonconvulsive status epileptics (I did not see report) TTE, 11/29/23: EF: 70-75% (I did not see report) MRI brain (no report): signal abnormality in bilateral cerebellum and right occipital lobe, punctate foci in right parietal lobe and central semiovale- unable to differentiate subacute ischemia 2/2 MR effects versus infection versus metastasis. Recommend contrast enhanced MRI MRI, 12/05/23: No evidence of demyelinating disease (I did not see report) MRI orbital, face, neck ww 12/05/2023, comparison: MR brain 11/28/2023: No evidence of mucormycosis infection. Multiple irregularly enhancing cerebellar and right occipital lesions were better evaluated on recent brain MRI MRI C-spine, 12/05/2023: No evidence of demyelinating disease in the cervical spine. Moderate degenerative changes. Grade 1 anterolisthesis of C7 on T1 MRI lumbar spine wwo, 12/05/2023: No evidence of demyelinating disease in the lumbar spine. Degenerative changes and grade 1 anterolisthesis of L4 and L5. Mild central spinal stenosis at L4-5. [id number] multilevel bilateral foraminal stenosis as described above MRI spectroscopy 12/05/2023: Cerebellar lesion showing moderately elevated Cho, reduced ZINA, large lipid peaks, and additional tics suspicious for amino acids and alanine. The alanine and amino acids are suspicious for an infectious process Treatment according to discharge note: ASA 81mg Qd, Lipitor 20 mg daily Urinalysis, 12/08/2023: WBC: 93, urine leukocyte esterase: 3+ ABG, 12/09/2023: Metabolic acidosis WBC/HB/PLT/MCV, 12/09/2023: 8.5/7.4/350/92.4 PT/INR/PTT, 12/08/2023: 11.4/1.08 Na, 12/08/2023: 147, 12/09/2023: 146, 12/19/2019 4:148 HCO3, 12/08/2023: 23, 12/10/2023: 22, 11/2123: 19, 12/13/23: 18, 12/16/2023: 15, 12/19/2023: 17 CPK, 12/18/2023: 54 TBI/AST/ALT/AP, 12/09/2023: 0.2/40/21/278 TG/HDL/LDL/HDL, 11/2023: 136/96/38/32 Vitamin B12, 11/2023: 2537 TSH, 11/2023: 17.87 YOLANDA, 12/10/2023: n the study done today no evidence of vegetation or masses were discernible. There is mild mitral valve regurgitation with mild anterior leaflet prolapse. No significant intracardiac lesion was discernible Echocardiogram, 11/18/2023: Normal left ventricular size and dimension. Normal left ventricular systolic function estimated ejection fraction 55%. There is a grade 1 diastolic dysfunction. Normal right ventricular size and dimension. Normal right ventricular systolic function. Mildly increased right ventricular systolic pressure 34 mm of mercury. Normal biatrial size and dimension. Normal aortic valve structure and function. Normal mitral valve structure and function. Normal tricuspid valve structure and function. The pulmonary valve is grossly normal. No pericardial effusion. Carotid Doppler, 11/21/2023: 1. No evidence of hemodynamically significant stenosis within the left carotid arterial system. 2. Antegrade flow within the left vertebral artery. 3. Cannot assess the right carotid arterial system due to central line artifact and overlying bandage. Extremity venous study, 12/09/2023: Thrombus in the LEFT cephalic and brachial vein. Thrombus in the RIGHT cephalic and basilic vein.If clinical concern/symptoms persist or worsen, short-interval follow-up study is suggested. Chest x-ray, 12/08/2023: 1. Endotracheal and gastric tubes in place as described. Satisfactory position. 2. Removal of right PICC and right IJ central venous catheter since prior. 3. Mild cardiomegaly and pulmonary vascular congestion. 4. Small opacity in the lateral right lung base which could reflect atelectasis or pneumonia MRI head, 11/21/2023: Signal abnormality in the bilateral cerebellum and right occipital lobe, as well as punctate foci in the right parietal lobe and centrum semiovale. Findings could represent regions of subacute ischemia due to embolic infarcts; however, underlying metastases or infection are not excluded. Recommend contrast-enhanced MRI vital signs Vital Sign Date Time Temp Pulse Resp B/P (MAP) Pulse Ox O2 Delivery O2 Flow Rate FiO2 01/02/24 17:58 74 18 95 01/02/24 17:50 Room Air 01/02/24 17:50 0 21 01/02/24 12:46 163/76 01/02/24 12:46 98.1 98.1 Total Intake and Output 01/01/24 01/01/24 01/02/24 15:00 23:00 07:00 Intake Total 480 ml Output Total 1050 ml 415 ml Balance -570 ml -415 ml medications Current Medications Medications Dose Ordered Sig/Leslie Route Start Time Stop Time Status Last Admin Dose Admin Albuterol 2.5 mg Q4HR PRN NEB 12/08/23 19:30 01/02/24 17:59 2.5 MG Ipratropium [place] 0.5 mg Q4HR NEB 12/08/23 22:00 01/02/24 17:59 0.5 MG Ondansetron HCl 4 mg Q4HP PRN IV 12/08/23 19:30 Pantoprazole Sodium 40 mg DAILY IV 12/09/23 10:00 01/02/24 10:00 40 MG Hydralazine HCl 10 mg Q4HP PRN IV 12/09/23 05:30 01/02/24 12:46 10 MG Sodium Chloride 10 ml QSHIFT@ IV 12/09/23 22:00 01/02/24 10:00 10 ML Metoclopramide HCl 5 mg Q6HPRN PRN IV 12/13/23 21:45 Lorazepam 1 mg Q4H PRN IV 12/17/23 00:15 12/24/23 06:15 1 MG Acetylcysteine 200 mg Q8HR NEB 12/22/23 22:00 01/01/24 22:12 200 MG Enteral Nutritional Formula 1,000 ml 40ML/HR GT 12/24/23 09:15 01/02/24 01:27 1,000 ML Insulin Glargine 15 units DAILY@1000 SC 12/24/23 13:30 01/02/24 10:00 15 UNITS Diagnostic Test (Pha) 1 strip Q6HR 12/24/23 18:00 01/02/24 17:17 1 STRIP Insulin Human Regular Q6HR SC 12/24/23 18:00 01/02/24 12:00 3 UNITS Dextrose 50 ml UD PRN IV 12/24/23 13:30 01/02/24 17:07 50 ML Apixaban 2.5 mg BID PEG 12/26/23 22:00 01/02/24 10:00 2.5 MG Gabapentin 100 mg BID PEG 12/26/23 22:00 01/02/24 10:00 100 MG Levothyroxine Sodium 112 mcg QAM@0600 PEG 12/27/23 06:00 01/02/24 06:19 112 MCG Losartan Potassium 100 mg DAILY PEG 12/28/23 10:00 01/02/24 10:00 100 MG Acetaminophen/ Hydrocodone Bitart 1 tab Q4HP PRN PEG 12/28/23 16:30 01/01/24 17:54 1 TAB Acetaminophen 650 mg Q6HP PRN GT 12/31/23 19:15 01/02/24 10:41 650 MG Metoprolol Tartrate 37.5 mg BID PEG 01/02/24 14:15 objective The patient is well-nourished and well-developed with no distress. Status post tracheostomy and feeding tube insertion MENTAL STATUS: Subjective CRANIAL NERVES: Pupils are equal, round and reactive, small. There are c onjugated eye movements. No signs of facial weakness. There are no gagging or coughing reflexes during oral care SENSATION: Responses to pain stimuli. MOTOR: Normal tone in the upper and lower extremity. Normal muscle bulk. No fasciculations. Muscle Bear: Arms: Right: 3/5, left 2/5. Legs: She moves the feet a little bit REFLEXES: Deep tendon reflexes are symmetrical. Bilateral upgoing toes CEREBELLAR/COORDINATION: Deferred GAIT/STATION: deferred. laboratory and microbiology Laboratory Tests 01/01/24 16:33 01/01/24 04:32 Test 01/01/24 04:32 Range/Units Serum Glucose 213 H 74-106 mg/dL Problem List Abnormal MRI brain scan, likely the patient has multiple stroke Coma Metabolic encephalopathy Hypoxic encephalopathy Multiple strokes Ketoacidosis ICU myopathy, improving Bilateral upper extremity deep venous thrombosis Rule out subacute endocarditis Status post tracheostomy Status post PEG tube Assessment/Plan Monitoring Supportive treatment Respiratory support IV antibiotics Eliquis 2.5 mg b.i.d. Tube feeding Cardiology on case Infectious disease on case More recommendation per clinical course This medical document was created using an electronic medical record system with [employer] dictation system. Although this document has been carefully reviewed, there may still be some phonetic and typographical errors. These areas are purely typographical due to imperfections of the software programs, and do not reflect any compromise in the patient's medical care. Prognosis poor Dietary Evaluation Review Comments: 1) If GI is accessible consider Glucerna 1.2 @ 55 ml/hr goal rate as tolerated 2) If pt remains NPO >7 days consider TPN to meet at least 75% of estimated needs 3) Advance pt diet when medically feasible to a CCHO 45g/Cardiac diet modified per [employer] recommendations 4) Continue current plan of care Expected Outcomes/Goals: 1) Pt to receive nutrition support within 7 days of NPO status 2) Pt diet to advance 3) F/U in 2-3 days Plan discussed with: Other DREW FAGAN MD Jan 02, 2024 20:52
[2024-01-02] MEDS: ALBUTEROL SULF 2.5 MG/0.5ML(0.5%) NEB SOLN ONE (22:48)
[2024-01-03] VITALS (18 sets, daily range): BP systolic 122–166; BP diastolic 57–81; PULSE 63–100; RESP 16–22; TEMP 97–98.4; O2SAT 93–100
--- NOTE | 2024-01-03 09:13 | DVHPNRES ---
Progress Note Date Seen: Jan 03, 2024 Resident Creating Document: DANELLE MENDIETA RESIDENT Has the PT tested + for MRSA If YES, has PT been informed?: No Medical Necessity Reason Pt with a Central, PICC or Fol: Yes The following are medically ne: PICC Line, Carr Catheter Reason for carr catheter: Strict I&O Subjective Review of Systems This is a 68-year-old female with past medical history of hypertension, diabetes mellitus type 2, hypothyroidism, COPD, obesity, diabetic polyneuropathy, liver cirrhosis, right knee replacement, multiple admissions for DKA. The patient was initially seen at [facility] on 11/16/2023 where he was intubated and transferred to our facility. At our facility he was treated for DKA and was found to have space occupying lesions in the brain (metastasis/infection/stroke) MRI of the head was done with no conclusive findings at that time. CT scan of the abdomen and pelvis at that time showed dilation of common bile duct and GI recommended ERCP/endoscopic ultrasound so patient was transferred on 11/26/2023 to [place]. ERCP and ultrasound was performed showing no obstruction either malignancy or stone at that time. Neurosurgery at [place] evaluated MRI results and stated that could be due to infarcts. Neurologist was against lumbar puncture due to increased risk of herniation. patient was extubated on November 28, 2023 and was transferred step-down unit with 2 L of nasal cannula but lately on December 02 patient became shortness of breath tachypneic required reintubation. The patient had sepsis of unknown etiology and they thought it might be related to the brain lesions so patient was started on broad-spectrum IV antibiotics with MRSA coverage. [facility] Patient seen and examined at bedside. There were no major issues over the weekend and overnight. Patient is now moving bilateral lower extremities and is having increased strength and force on bilateral upper extremities as well. Patient is currently saturating 94% on room air and looks March more stronger. We will might proceed with decrease on trach size today. ROS Constitutional: Denies weight loss, fever and chills. HEENT: Denies changes in vision and hearing. Respiratory: Denies shortness of breath and cough Cardiovascular: Denies chest discomfort or palpitations GI: Denies abdominal pain, nausea, vomiting and diarrhea. : Denies dysuria and urinary frequency. Musculoskeletal: Denies myalgias and joint pain Skin: Denies rash and pruritus. Neurological: Denies dizziness, headache, vision or hearing problems Objective vital signs Vital Sign Date Time Temp Pulse Resp B/P (MAP) Pulse Ox O2 Delivery O2 Flow Rate FiO2 01/03/24 06:34 79 20 97 01/03/24 06:24 Trach Collar 5 28 Cool Aerosol 28 01/03/24 05:00 97.0 139/57 (84) 97.0 Total Intake and Output 01/02/24 01/02/24 01/03/24 15:00 23:00 07:00 Intake Total 0 ml 0 ml Output Total 325 ml 1100 ml Balance -325 ml -1100 ml medications Current Medications Medications Dose Ordered Sig/Leslie Route Start Time Stop Time Status Last Admin Dose Admin Albuterol 2.5 mg Q4HR PRN NEB 12/08/23 19:30 01/03/24 06:26 2.5 MG Ipratropium Ballinger 0.5 mg Q4HR NEB 12/08/23 22:00 01/03/24 06:24 0.5 MG Ondansetron HCl 4 mg Q4HP PRN IV 12/08/23 19:30 Pantoprazole Sodium 40 mg DAILY IV 12/09/23 10:00 01/02/24 10:00 40 MG Hydralazine HCl 10 mg Q4HP PRN IV 12/09/23 05:30 01/03/24 02:14 10 MG Sodium Chloride 10 ml QSHIFT@10,22 IV 12/09/23 22:00 01/03/24 00:30 10 ML Metoclopramide HCl 5 mg Q6HPRN PRN IV 12/13/23 21:45 Lorazepam 1 mg Q4H PRN IV 12/17/23 00:15 12/24/23 06:15 1 MG Acetylcysteine 200 mg Q8HR NEB 12/22/23 22:00 01/03/24 06:26 200 MG Enteral Nutritional Formula 1,000 ml 40ML/HR GT 12/24/23 09:15 01/02/24 01:27 1,000 ML Insulin Glargine 15 units DAILY@1000 SC 12/24/23 13:30 01/02/24 10:00 15 UNITS Diagnostic Test (Pha) 1 strip Q6HR 12/24/23 18:00 01/03/24 07:02 1 STRIP Insulin Human Regular Q6HR SC 12/24/23 18:00 01/02/24 12:00 3 UNITS Dextrose 50 ml UD PRN IV 12/24/23 13:30 01/02/24 17:07 50 ML Apixaban 2.5 mg BID PEG 12/26/23 22:00 01/02/24 21:50 2.5 MG Gabapentin 100 mg BID PEG 12/26/23 22:00 01/02/24 21:50 100 MG Levothyroxine Sodium 112 mcg QAM@0600 PEG 12/27/23 06:00 01/03/24 06:31 112 MCG Losartan Potassium 100 mg DAILY PEG 12/28/23 10:00 01/02/24 10:00 100 MG Acetaminophen/ Hydrocodone Bitart 1 tab Q4HP PRN PEG 12/28/23 16:30 01/01/24 17:54 1 TAB Acetaminophen 650 mg Q6HP PRN GT 12/31/23 19:15 01/03/24 00:46 650 MG Metoprolol Tartrate 37.5 mg BID PEG 01/02/24 14:15 01/02/24 21:50 37.5 MG Examination Physical Examination: General: Patient opens eyes spontaneously to voice, Breathing on rooom air sat 94% HEENT: Normocephalic, atraumatic, moist mucous membranes Respiratory/pulmonary: Bilateral lung sounds grossly clear, no major crackles or wheezes at this time. Cardiovascular: Regular heart sounds S1 and S2 with no associated murmurs. Abdomen: Abdomen nondistended, there is mild pain to palpation to the epigastric region, no palpable masses. PEG tube on place with no signs in infection at this time. Extremities: There are no peripheral edema at this time. There is increase in motor strength in all 4 extremities and patient is now able to move lower extremities. Peripheral Pulses: 3+ Radial (R). 3+ Radial (L). 3+ Dorsalis pedis (R). 3+ Dorsalis pedis(L) Skin: No rashes or pruritus, there is no sacral edema present at this time. Neurological: Cranial nerves not able to evaluate independently. Patient responds to verbal stimuli and not head answering simple questions. Patient is slightly moving bilateral upper extremities. Patient is now able to move lower extremities. laboratory and microbiology Laboratory Tests 01/01/24 16:33 01/01/24 04:32 Test 01/01/24 04:32 Range/Units Serum Glucose 213 H 74-106 mg/dL Microbiology Date/Time Source Procedure Growth Status 12/21/23 09:42 Trachea Gram Stain - Final Complete 12/21/23 09:42 Respiratory Culture - Final Yeast, not Sapphire albicans Complete 12/14/23 19:42 Voided Urine Urine Culture - Final Complete 12/09/23 09:28 Blood Blood Culture - Final NO GROWTH AFTER 5 DAYS OF INCUBATION. Complete 12/08/23 19:00 Sputum Gram Stain - Final Complete 12/08/23 19:00 Sputum Respiratory Culture - Final Complete Problem List/Assessment/Plan Problem List/Assessment/Plan Assessment/Plan Neurology Acute metabolic encephalopathy likely in the setting of sepsis versus brain occupying lesions (metastasis/infection/stroke) -patient has a previous MRI at this facility showing no conclusive diagnosis, At [facility] did not got any conclusive diagnosis as well. -failed extubation at [facility] -CT scan of the head performed at this visit show hypodensities in bilateral cerebellum with no acute intracranial abnormalities. -MRI with contrast of the brain should be performed to clarify etiology of brain occupying lesions. Study was hold today due to YULIANA, we will wait for renal function recovery, meanwhile we will try to decrease sedation and assess neurologic response clinically. -Will order MRI of the brain with contrast (cancel it since neurology recommended MRI SPECT tomography of the brain which could not be performed at this facility) Brain lessions on MRI w/o contrast, unknown etiology -we will perform brain MRI with contrast once kidney function recovers. -lab workup performed at [facility] was negative for blastomycosis, tuberculosis, cryptococcosis Polyneuropathy -Continue gabapentin 100mg BID Sedation -OFF sedation Not on vasopressors at this time. Cardiology Acute on chronic diastolic heart failure (HFpEF 55%) -Both echocardiograms TTE YOLANDA were performed showing no vegetations or cardiac valve abn. Ruled out endocarditis -YOLANDA performed on 12/10/2023 showed normal cardiac valves with no vegetations at that time. Primary hypertension -Continue losartan 50mg QD -Continue metoprolol 25mg PO BID Respiratory S/P tracheostomy performed today in the morning (12/13/23) -Patient currently on room air sat 94% -Today 01/03/24 we dowsized the trach tube from 8.5 to a 6.0 fenestrated cuff trach tube Acute hypoxic respiratory failure likely in the setting of aspiration pneumonia -IV Unasyn was discontinued -on tarach collar as described above -CT of the chest/abdomen and pelvis showed no acute findings in the abdominal pelvics but showed multifocal airspace disease and cardiomegaly -chest x-ray performed today showed stable pulmonary congestion right lower lobe infiltration can not be excluded -Physical therapy working with the patient now placed order for twice a day. -Today 01/03/24 we dowsized the trach tube from 8.5 to a 6.0 fenestrated cuff trach tube Sepsis in the setting of aspiration pneumonia -continue IV antibiotics as described above Infectious disease Sepsis likely due to aspiration pneumonia and UTI -Completed abs treatment UTI UA suggestive of UTI but last urine culture showed no growth -Ordered new U/A came back suggesting UTI -Urine culture came back negative Possible brain abscess/infectious occupying lesions -completed IV Unasyn treatment Endocrinology Type 2 diabetes mellitus, DKA on previous admissions -Continue moderate sliding scale insulin -Continue Lantus 15 units q.a.m. -Not on Lantus at this time Diabetic polyneuropathy -Patient sedated, monitor Hypothyroidism -Last TSH was 17.87 -today, ordered free T4 and T3 which came back 0.48 and 0.79 respectively -Continue levothyroxine 112mcgQAM -Ordered new FT4 which came back at 0.70 (improving but still low) Gastroenterology Acute transaminitis, resolved -AST 20, ALT 16 -Continue monitoring Cholelithiasis w/o cholecystitis -CT abdomen showed cholelithiasis w/o findings suggestive of cholecystitis Hematology Superficial thrombophlebitis of right cephalic and basilic veins -no need for anticoagulation DVT of the left brachial vein -Continue eliquis 2.5mg BID -Ordered left upper extremity venous Doppler to rule out DVT since the patient is reporting left upper extremity pain. Nephrology YULIANA likely due to VMN -Last creatinine was 0.85 and BUN 12 -Monitor kidney function Nutrition -Continue on glucerna at 40cc/hr Continue physical therapy to twice a day Lines: Midline of right upper arm placed on 12/08/2023 (Removed) PICC line on left upper arm placed on 12/09/2023 Goals of care discussed with the patient for > 23min Plan discussed with Dr. Razo Plan discussed with: Patient My Orders My Orders Orders - DANELLE MENDIETA RESIDENT Procedure Category Date Status Time Complete Blood Count LAB 01/03/24 Logged 06:56 Comprehensive LAB 01/03/24 Logged Metabolic Panel 06:56 Magnesium LAB 01/03/24 Logged 06:56 Dietary Evaluation Review Comments: 1) If GI is accessible consider Glucerna 1.2 @ 55 ml/hr goal rate as tolerated 2) If pt remains NPO >7 days consider TPN to meet at least 75% of estimated needs 3) Advance pt diet when medically feasible to a CCHO 45g/Cardiac diet modified per MEDICAL DEVICE ENGINEER recommendations 4) Continue current plan of care Expected Outcomes/Goals: 1) Pt to receive nutrition support within 7 days of NPO status 2) Pt diet to advance 3) F/U in 2-3 days Date of Service: Jan 03, 2024 Billing Provider: FREEDOM RAZO MD Common Visit Codes: [id number] INP/OBS CARE(HIGH) DANELLE MENDIETA RESIDENT Jan 03, 2024 09:13 FREEDOM RAZO MD Jan 04, 2024 17:11
[2024-01-03 11:54] LABS: Basophils # (auto) 0.1 10 ^3/uL (0-0.2); Eosinophils # (auto) 0.2 10 ^3/uL (0-0.8); Hematocrit 30.1 % (36.0-46.0); Hemoglobin 9.8 g/dL (12.2-16.2); Lymphocytes # (auto) 2.3 10 ^3/uL (0.4-5.4); Mean Corpuscular Hemoglobin 28.1 pg (28.0-32.0); Monocytes # (auto) 0.4 10 ^3/uL (0-1.3); Red Blood Cells 3.49 10^6/uL (4.0-5.20); Red Cell Distribution Width 16.2 % (11.8-14.3)
[2024-01-03 11:58] LABS: Basophils % (auto) 1.2 % (0.0-2.0); Eosinophils % (auto) 2.7 % (0.0-7.0); Lymphocytes % (auto) 25.7 % (10.0-50.0); Mean Corpuscular Hgb Conc. 32.5 g/dL (32.0-36.0); Mean Corpuscular Volume 86.4 fL (80.0-100.0); Monocytes % (auto) 4.8 % (0.0-12.0); Neutrophils # (auto) 5.8 10 ^3/uL (1.6-8.6); Neutrophils % (auto) 65.6 % (37.0-80.0); Platelet Count (auto) 462 10^3/uL (140-450); White Blood Cell 8.8 10^3/uL (4.4-10.8)
[2024-01-03 12:17] LABS: Alanine Aminotransferase 10 U/L (7-40); Albumin 3.6 g/dL (3.2-4.8); Alkaline Phosphatase 132 U/L (46-116); Anion Gap 8 (5-15); Aspartate Aminotransferase 18 U/L (13-40); BUN/Creatinine Ratio 14.1 (10.0-20.0); Bilirubin, Total 0.2 mg/dL (0.2-1.0); Blood Urea Nitrogen 12 mg/dL (9-23); Carbon Dioxide 24 mmol/L (20-31); Chloride 105 mmol/L (98-107); Glucose 225 mg/dL (74-106); Magnesium 1.8 mg/dL (1.6-2.6); Potassium 3.9 mmol/L (3.5-5.1); Sodium 137 mmol/L (136-145); Total Protein 6.5 g/dL (5.7-8.2)
--- NOTE | 2024-01-03 17:33 | DVH ---
CLINICAL HISTORY: R/O DVT history of DVT. TECHNIQUE: Color and duplex doppler imaging of the left upper extremity veins and left subclavian vei n was performed. Vessel compression if possible was also performed. WID: COMPARISON: None FINDINGS: There is mixed predominantly intermediate density occlusive thrombus within the cephalic vein at the mid arm . The left internal jugular, axillary, basilic, paired brachial, ulnar, and radial veins are patent an d demonstrate normal compressibility and flow. The left subclavian is patent. IMPRESSION: 1. NO SONOGRAPHIC EVIDENCE FOR DEEP VENOUS THROMBOSIS IN THE LEFT UPPER EXTREMITY VEINS. 2. Occlusive subacute appearing thrombus in the cephalic vein at the mid forearm.
--- NOTE | 2024-01-03 19:49 | DVHPN2 ---
Consult Progress Note Date Seen: Jan 03, 2024 Subjective Patient reports: Feels better (working with physical therapy ) Objective vital signs Vital Sign Date Time Temp Pulse Resp B/P (MAP) Pulse Ox O2 Delivery O2 Flow Rate FiO2 01/03/24 18:07 66 16 98 01/03/24 17:59 Room Air* 0 28 21 01/03/24 17:00 98.4 149/67 (94) 98.4 Total Intake and Output 01/02/24 01/02/24 01/03/24 15:00 23:00 07:00 Intake Total 0 ml 0 ml Output Total 325 ml 1100 ml Balance -325 ml -1100 ml medications Current Medications Medications Dose Ordered Sig/Leslie Route Start Time Stop Time Status Last Admin Dose Admin Albuterol 2.5 mg Q4HR PRN NEB 12/08/23 19:30 01/03/24 17:59 2.5 MG Ipratropium Thayer 0.5 mg Q4HR NEB 12/08/23 22:00 01/03/24 17:59 0.5 MG Ondansetron HCl 4 mg Q4HP PRN IV 12/08/23 19:30 Pantoprazole Sodium 40 mg DAILY IV 12/09/23 10:00 01/03/24 10:37 40 MG Hydralazine HCl 10 mg Q4HP PRN IV 12/09/23 05:30 01/03/24 02:14 10 MG Sodium Chloride 10 ml QSHIFT@,22 IV 12/09/23 22:00 01/03/24 10:41 10 ML Metoclopramide HCl 5 mg Q6HPRN PRN IV 12/13/23 21:45 Lorazepam 1 mg Q4H PRN IV 12/17/23 00:15 12/24/23 06:15 1 MG Acetylcysteine 200 mg Q8HR NEB 12/22/23 22:00 01/03/24 06:26 200 MG Enteral Nutritional Formula 1,000 ml 40ML/HR GT 12/24/23 09:15 01/02/24 01:27 1,000 ML Insulin Glargine 15 units DAILY@1000 SC 12/24/23 13:30 01/03/24 10:35 15 UNITS Diagnostic Test (Pha) 1 strip Q6HR 12/24/23 18:00 01/03/24 18:00 1 STRIP Insulin Human Regular Q6HR SC 12/24/23 18:00 01/03/24 11:25 6 UNITS Dextrose 50 ml UD PRN IV 12/24/23 13:30 01/02/24 17:07 50 ML Apixaban 2.5 mg BID PEG 12/26/23 22:00 01/03/24 11:10 2.5 MG Gabapentin 100 mg BID PEG 12/26/23 22:00 01/03/24 11:08 100 MG Levothyroxine Sodium 112 mcg QAM@0600 PEG 12/27/23 06:00 01/03/24 06:31 112 MCG Losartan Potassium 100 mg DAILY PEG 12/28/23 10:00 01/03/24 11:09 100 MG Acetaminophen/ Hydrocodone Bitart 1 tab Q4HP PRN PEG 12/28/23 16:30 01/01/24 17:54 1 TAB Acetaminophen 650 mg Q6HP PRN GT 12/31/23 19:15 01/03/24 18:00 650 MG Metoprolol Tartrate 37.5 mg BID PEG 01/02/24 14:15 01/03/24 11:09 37.5 MG PHYSICAL EXAM: - GENERAL: Alert and oriented x 3. No acute distress. Well-nourished. - EYES: EOMI. Anicteric. - HENT: Moist mucous membranes. No scleral icterus. No cervical lymphadenopathy. - LUNGS: Clear to auscultation bilaterally. No accessory muscle use. Tach size was downsized to shyly 6. - CARDIOVASCULAR: Regular rate and rhythm. No murmur. No JVD. - ABDOMEN: Soft, non-tender and non-distended. No palpable masses. - EXTREMITIES: No edema. Non-tender.?SKIN: No rashes or lesions. Warm. upper and lower extremities strenght gain. - NEUROLOGIC: No focal neurological deficits. CN II-XII grossly intact, but not individually tested. - PSYCHIATRIC: Cooperative. Appropriate mood and affect. laboratory and microbiology Laboratory Tests 01/03/24 11:20 Test 01/03/24 11:20 Range/Units Serum Glucose 225 H 74-106 mg/dL Problem List/Assessment/Plan Problems(with codes): (1) COPD (chronic obstructive pulmonary disease) (2) HTN (hypertension) (3) DKA (diabetic ketoacidosis) (4) Hospital-acquired pneumonia (5) Closed right hip fracture Problem List/Assessment/Plan Assessment/Plan Problems(with codes): (1) Hospital-acquired pneumonia (2) COPD (chronic obstructive pulmonary disease) (3) DKA (diabetic ketoacidosis) (4) HTN (hypertension) (5) Closed right hip fracture Plan/Recommendation ASSESSMENT AND PLAN: ID Problem List: - Aspiration pneumonia - Acute respiratory failure - Diabetic Ketoacidosis (DKA) - Sepsis due to UTI vs pneumonia - Acute Kidney Injury (YULIANA) - Hypernatremia - Transaminitis - Fatty liver - Uncontrolled diabetes (A1C of 11.7) - Hypothyroidism - Hypertension - COPD without exacerbation - Chronic kidney disease (CKD) Assessment: This is a 68-year-old female with a past medical history of diabetes, hypertension, recurrent DKA, hypothyroidism, obesity, COPD, neuropathies, mechanical falls, liver cirrhosis, and multiple joint replacements. The patient presented to the ED with acute loss of consciousness on 11/15/2023, subsequently diagnosed with DKA and an upper GI bleed. While at [facility], a CT and MRI of the head showed concerning lesions for metastasis vs. infectious process and gallbladder issues. Due to renal failure, these images were performed without contrast. An ERCP at [facility] showed no gallstones or common bile duct obstruction. Currently, the patient is reintubated on minimal sedation and receiving broad-spectrum antibiotics for presumed meningitis and other infections. 12/09: Patient has had a repeat abdomen, pelvis, chest Ct with contrast which shows no acute findings in the abdomen and pelvis. multifocal airspace in the lungs was shown. 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 12/12: sp trach 12/13: off sedation 12/19: trach 7l,elevated temps 12/23: Sputal culture is showing normal oral pharyngeal jordan, chest X-ray shows clear lungs, yesterdays X-rays show interstitial edema otherwise clear lungs. Recomend patient continue off antibiotics and just do aspiriations. If fever starts , cosider antibiotics for aspiration pnumonia , suspect Pneumonitis 12/26: Peg tube feeding were stopped , soft abdomen and having bowel movements. Chest X-ray shows mild pulmonary congestion. Otherwise patient is stable with no fevers 12/27: Peg tube is dry and intact. Restarted on [place]. Continues to work on physical therapy 12/29: now on 6 liters of drip , improving , recommend incentive spirometry, continue working with physical therapists and encouraged out of bed Plan: - continue off antibiotics unless fever starts up - sp 3 week vancomycin and ceftriaxone course, will monitor patient off all antibiotics - aspiration precautions - Blood cultures monitoring. - Monitor respiratory status and adjust ventilator settings as necessary. - Monitor and manage blood glucose levels. - Supportive care as needed. Plan discussed with: Other Dietary Evaluation Review Comments: 1) If GI is accessible consider Glucerna 1.2 @ 55 ml/hr goal rate as tolerated 2) If pt remains NPO >7 days consider TPN to meet at least 75% of estimated needs 3) Advance pt diet when medically feasible to a CCHO 45g/Cardiac diet modified per MENU PLANNER recommendations 4) Continue current plan of care Expected Outcomes/Goals: 1) Pt to receive nutrition support within 7 days of NPO status 2) Pt diet to advance 3) F/U in 2-3 days NITHIN ANAYA MD Jan 03, 2024 19:49
[2024-01-04] VITALS (21 sets, daily range): BP systolic 99–160; BP diastolic 40–76; PULSE 57–73; RESP 16–20; TEMP 97–98.1; O2SAT 93–100
[2024-01-04 08:11] LABS: Chloride 105 mmol/L (98-107); Potassium 3.8 mmol/L (3.5-5.1); Sodium 137 mmol/L (136-145)
[2024-01-04 08:12] LABS: Anion Gap 8 (5-15); Carbon Dioxide 24 mmol/L (20-31)
[2024-01-04 08:13] LABS: Calcium 9.9 mg/dL (8.7-10.4)
[2024-01-04 08:17] LABS: Glucose 123 mg/dL (74-106)
[2024-01-04 08:18] LABS: BUN/Creatinine Ratio 17.1 (10.0-20.0); Blood Urea Nitrogen 13 mg/dL (9-23); Magnesium 1.8 mg/dL (1.6-2.6)
--- NOTE | 2024-01-04 14:42 | DVHPNRES ---
Progress Note Date Seen: Jan 04, 2024 Resident Creating Document: DANELLE MENDIETA RESIDENT Has the PT tested + for MRSA If YES, has PT been informed?: No Medical Necessity Reason Pt with a Central, PICC or Fol: Yes The following are medically ne: PICC Line, Carr Catheter Reason for carr catheter: Strict I&O Subjective Review of Systems This is a 68-year-old female with past medical history of hypertension, diabetes mellitus type 2, hypothyroidism, COPD, obesity, diabetic polyneuropathy, liver cirrhosis, right knee replacement, multiple admissions for DKA. The patient was initially seen at [facility] on 11/16/2023 where he was intubated and transferred to our facility. At our facility he was treated for DKA and was found to have space occupying lesions in the brain (metastasis/infection/stroke) MRI of the head was done with no conclusive findings at that time. CT scan of the abdomen and pelvis at that time showed dilation of common bile duct and GI recommended ERCP/endoscopic ultrasound so patient was transferred on 11/26/2023 to [facility]. ERCP and ultrasound was performed showing no obstruction either malignancy or stone at that time. Neurosurgery at [facility] evaluated MRI results and stated that could be due to infarcts. Neurologist was against lumbar puncture due to increased risk of herniation. patient was extubated on November 28, 2023 and was transferred step-down unit with 2 L of nasal cannula but lately on December 02 patient became shortness of breath tachypneic required reintubation. The patient had sepsis of unknown etiology and they thought it might be related to the brain lesions so patient was started on broad-spectrum IV antibiotics with MRSA coverage. Patient was readmitted back at [facility]. Patient seen and examined at bedside. Patient is more alert and oriented in person, place and time. Patient not able to speak at this time due to tracheostomy tube is able to communicate effectively by hand gestures and effectively answers all simple questions. Patient is actively working with physical therapy twice daily and able to swallow few amounts of water by sponge suction. Patient is currently on room air saturating 93-94%. We will continue evaluate the possibility of removing tracheostomy tube in the next couple of days. Patient has no additional complaints at this time. ROS Constitutional: Denies weight loss, fever and chills. HEENT: Denies changes in vision and hearing. Respiratory: Denies shortness of breath and cough Cardiovascular: Denies chest discomfort or palpitations GI: Denies abdominal pain, nausea, vomiting and diarrhea. : Denies dysuria and urinary frequency. Musculoskeletal: Denies myalgias and joint pain Skin: Denies rash and pruritus. Neurological: Denies dizziness, headache, vision or hearing problems Objective vital signs Vital Sign Date Time Temp Pulse Resp B/P (MAP) Pulse Ox O2 Delivery O2 Flow Rate FiO2 01/04/24 13:45 60 20 100 01/04/24 12:32 160/64 01/04/24 09:00 97.9 97.9 01/04/24 08:00 Room Air* 0 21 Total Intake and Output 01/03/24 01/03/24 01/04/24 15:00 23:00 07:00 Intake Total 540 ml 0 ml Output Total 400 ml 400 ml Balance 140 ml -400 ml medications Current Medications Medications Dose Ordered Sig/Leslie Route Start Time Stop Time Status Last Admin Dose Admin Albuterol 2.5 mg Q4HR PRN NEB 12/08/23 19:30 01/03/24 22:07 2.5 MG Ipratropium [place] 0.5 mg Q4HR NEB 12/08/23 22:00 01/04/24 13:39 0.5 MG Ondansetron HCl 4 mg Q4HP PRN IV 12/08/23 19:30 Pantoprazole Sodium 40 mg DAILY IV 12/09/23 10:00 01/04/24 12:13 40 MG Hydralazine HCl 10 mg Q4HP PRN IV 12/09/23 05:30 01/03/24 02:14 10 MG Sodium Chloride 10 ml QSHIFT@ IV 12/09/23 22:00 01/04/24 12:13 10 ML Metoclopramide HCl 5 mg Q6HPRN PRN IV 12/13/23 21:45 Lorazepam 1 mg Q4H PRN IV 12/17/23 00:15 12/24/23 06:15 1 MG Acetylcysteine 200 mg Q8HR NEB 12/22/23 22:00 01/04/24 13:39 200 MG Enteral Nutritional Formula 1,000 ml 40ML/HR GT 12/24/23 09:15 01/02/24 01:27 1,000 ML Insulin Glargine 15 units DAILY@1000 SC 12/24/23 13:30 01/03/24 10:35 15 UNITS Diagnostic Test (Pha) 1 strip Q6HR 12/24/23 18:00 01/04/24 12:36 1 STRIP Insulin Human Regular Q6HR SC 12/24/23 18:00 01/04/24 12:31 6 UNITS Dextrose 50 ml UD PRN IV 12/24/23 13:30 01/02/24 17:07 50 ML Apixaban 2.5 mg BID PEG 12/26/23 22:00 01/04/24 12:09 2.5 MG Gabapentin 100 mg BID PEG 12/26/23 22:00 01/04/24 12:08 100 MG Levothyroxine Sodium 112 mcg QAM@0600 PEG 12/27/23 06:00 01/04/24 05:19 112 MCG Losartan Potassium 100 mg DAILY PEG 12/28/23 10:00 01/04/24 12:13 100 MG Acetaminophen/ Hydrocodone Bitart 1 tab Q4HP PRN PEG 12/28/23 16:30 01/04/24 07:20 1 TAB Acetaminophen 650 mg Q6HP PRN GT 12/31/23 19:15 01/03/24 18:00 650 MG Metoprolol Tartrate 37.5 mg BID PEG 01/02/24 14:15 01/04/24 12:32 37.5 MG Examination Physical Examination: General: Patient opens eyes spontaneously to voice, Breathing on rooom air sat 93-94% HEENT: Normocephalic, atraumatic, moist mucous membranes, trach tube on place. Respiratory/pulmonary: Bilateral lung sounds grossly clear, no major crackles or wheezes at this time. Cardiovascular: Regular heart sounds S1 and S2 with no associated murmurs. Abdomen: Abdomen nondistended, there is mild pain to palpation to the epigastric region, no palpable masses. PEG tube on place with no signs in infection at this time. Extremities: There are no peripheral edema at this time. There is increase in motor strength in all 4 extremities and patient is now able to move lower extremities. Peripheral Pulses: 3+ Radial (R). 3+ Radial (L). 3+ Dorsalis pedis (R). 3+ Dorsalis pedis(L) Skin: No rashes or pruritus, there is no sacral edema present at this time. Neurological: Cranial nerves not able to evaluate independently. Patient responds to verbal stimuli and not head answering simple questions. Patient is slightly moving bilateral upper extremities. Patient is actively moving lower extremities. laboratory and microbiology Laboratory Tests 01/04/24 06:51 01/03/24 11:20 Test 01/04/24 06:51 Range/Units Serum Glucose 123 H 74-106 mg/dL Microbiology Date/Time Source Procedure Growth Status 12/21/23 09:42 Trachea Gram Stain - Final Complete 12/21/23 09:42 Respiratory Culture - Final Yeast, not [place] albicans Complete 12/14/23 19:42 Voided Urine Urine Culture - Final Complete 12/09/23 09:28 Blood Blood Culture - Final NO GROWTH AFTER 5 DAYS OF INCUBATION. Complete 12/08/23 19:00 Sputum Gram Stain - Final Complete 12/08/23 19:00 Sputum Respiratory Culture - Final Complete Problem List/Assessment/Plan Problem List/Assessment/Plan Assessment/Plan Neurology Acute metabolic encephalopathy likely in the setting of sepsis versus brain occupying lesions (metastasis/infection/stroke) -patient has a previous MRI at this facility showing no conclusive diagnosis, At [facility] did not got any conclusive diagnosis as well. -failed extubation at [facility] -CT scan of the head performed at this visit show hypodensities in bilateral cerebellum with no acute intracranial abnormalities. -MRI with contrast of the brain should be performed to clarify etiology of brain occupying lesions. Study was hold today due to YULIANA, we will wait for renal function recovery, meanwhile we will try to decrease sedation and assess neurologic response clinically. -Will order MRI of the brain with contrast (cancel it since neurology recommended MRI SPECT tomography of the brain which could not be performed at this facility) Brain lessions on MRI w/o contrast, unknown etiology -we will perform brain MRI with contrast once kidney function recovers. -lab workup performed at [facility] was negative for blastomycosis, tuberculosis, cryptococcosis Polyneuropathy -Continue gabapentin 100mg BID Sedation -OFF sedation Not on vasopressors at this time. Cardiology Acute on chronic diastolic heart failure (HFpEF 55%) -Both echocardiograms TTE YOLANDA were performed showing no vegetations or cardiac valve abn. Ruled out endocarditis -YOLANDA performed on 12/10/2023 showed normal cardiac valves with no vegetations at that time. Primary hypertension -Continue losartan 50mg QD -Continue metoprolol 25mg PO BID Respiratory S/P tracheostomy performed today in the morning (12/13/23) -Patient currently on room air sat 94% -Trach tube was downsized on 01/03/24 from 8.5 to a 6.0 fenestrated cuff trach tube Acute hypoxic respiratory failure likely in the setting of aspiration pneumonia -IV Unasyn was discontinued -on tarach collar as described above -CT of the chest/abdomen and pelvis showed no acute findings in the abdominal pelvics but showed multifocal airspace disease and cardiomegaly -chest x-ray performed today showed stable pulmonary congestion right lower lobe infiltration can not be excluded -Physical therapy working with the patient now placed order for twice a day. -Trach tube was downsized on 01/03/24 from 8.5 to a 6.0 fenestrated cuff trach tube Sepsis in the setting of aspiration pneumonia -continue IV antibiotics as described above Infectious disease Sepsis likely due to aspiration pneumonia and UTI -Completed abs treatment UTI UA suggestive of UTI but last urine culture showed no growth -Ordered new U/A came back suggesting UTI -Urine culture came back negative Possible brain abscess/infectious occupying lesions -completed IV Unasyn treatment Endocrinology Type 2 diabetes mellitus, DKA on previous admissions -Continue moderate sliding scale insulin -Continue Lantus 15 units q.a.m. -Not on Lantus at this time Diabetic polyneuropathy -Patient sedated, monitor Hypothyroidism -Last TSH was 17.87 -today, ordered free T4 and T3 which came back 0.48 and 0.79 respectively -Continue levothyroxine 112mcgQAM -Ordered new FT4 which came back at 0.70 (improving but still low) Gastroenterology Acute transaminitis, resolved -AST 20, ALT 16 -Continue monitoring Cholelithiasis w/o cholecystitis -CT abdomen showed cholelithiasis w/o findings suggestive of cholecystitis Hematology Superficial thrombophlebitis of right cephalic and basilic veins -no need for anticoagulation DVT of the left brachial vein -Continue eliquis 2.5mg BID -Ordered left upper extremity venous Doppler to rule out DVT since the patient is reporting left upper extremity pain. Nephrology YULIANA likely due to VMN -Last creatinine was 0.76 and BUN 13 -Monitor kidney function Nutrition -Continue on glucerna at 40cc/hr Continue physical therapy to twice a day Lines: Midline of right upper arm placed on 12/08/2023 (Removed) PICC line on left upper arm placed on 12/09/2023 Goals of care discussed with the patient for > 23min Plan discussed with Dr. Razo Plan discussed with: Patient My Orders My Orders Orders - DANELLE MENDIETA Procedure Category Date Status Time Lt Upper Dvt US 01/03/24 Resulted 16:43 Dietary Evaluation Review Comments: 1) If GI is accessible consider Glucerna 1.2 @ 55 ml/hr goal rate as tolerated 2) If pt remains NPO >7 days consider TPN to meet at least 75% of estimated needs 3) Advance pt diet when medically feasible to a CCHO 45g/Cardiac diet modified per TIMBER WATCHMAN recommendations 4) Continue current plan of care Expected Outcomes/Goals: 1) Pt to receive nutrition support within 7 days of NPO status 2) Pt diet to advance 3) F/U in 2-3 days Date of Service: Jan 04, 2024 Billing Provider: FREEDOM RAZO MD Common Visit Codes: [id number] INP/OBS CARE(HIGH) DANELLE MENDIETA RESIDENT Jan 04, 2024 14:42 FREEDOM RAZO MD Jan 05, 2024 14:17
--- NOTE | 2024-01-04 20:34 | DVHPN2 ---
Consult Progress Note Date Seen: Jan 04, 2024 Subjective Patient reports: No new complaints (developed worsening blodd pressure throughout the day and cultures were aquired, tachycardic, feeding have been stopped due to acute desats) Objective vital signs Vital Sign Date Time Temp Pulse Resp B/P (MAP) Pulse Ox O2 Delivery O2 Flow Rate FiO2 01/04/24 18:26 59 18 96 01/04/24 18:18 Oxymizer 5 N/A 01/04/24 17:00 97.9 99/40 (59) 97.9 Total Intake and Output 01/03/24 01/03/24 01/04/24 15:00 23:00 07:00 Intake Total 540 ml 0 ml Output Total 400 ml 400 ml Balance 140 ml -400 ml medications Current Medications Medications Dose Ordered Sig/Leslie Route Start Time Stop Time Status Last Admin Dose Admin Albuterol 2.5 mg Q4HR PRN NEB 12/08/23 19:30 01/04/24 18:18 2.5 MG Ipratropium [place] 0.5 mg Q4HR NEB 12/08/23 22:00 01/04/24 18:18 0.5 MG Ondansetron HCl 4 mg Q4HP PRN IV 12/08/23 19:30 Pantoprazole Sodium 40 mg DAILY IV 12/09/23 10:00 01/04/24 12:13 40 MG Hydralazine HCl 10 mg Q4HP PRN IV 12/09/23 05:30 01/03/24 02:14 10 MG Sodium Chloride 10 ml QSHIFT@ IV 12/09/23 22:00 01/04/24 12:13 10 ML Metoclopramide HCl 5 mg Q6HPRN PRN IV 12/13/23 21:45 Lorazepam 1 mg Q4H PRN IV 12/17/23 00:15 12/24/23 06:15 1 MG Acetylcysteine 200 mg Q8HR NEB 12/22/23 22:00 01/04/24 13:39 200 MG Enteral Nutritional Formula 1,000 ml 40ML/HR GT 12/24/23 09:15 01/02/24 01:27 1,000 ML Insulin Glargine 15 units DAILY@1000 SC 12/24/23 13:30 01/03/24 10:35 15 UNITS Diagnostic Test (Pha) 1 strip Q6HR 12/24/23 18:00 01/04/24 17:53 1 STRIP Insulin Human Regular Q6HR SC 12/24/23 18:00 01/04/24 12:31 6 UNITS Dextrose 50 ml UD PRN IV 12/24/23 13:30 01/04/24 17:53 50 ML Apixaban 2.5 mg BID PEG 12/26/23 22:00 01/04/24 12:09 2.5 MG Gabapentin 100 mg BID PEG 12/26/23 22:00 01/04/24 12:08 100 MG Levothyroxine Sodium 112 mcg QAM@0600 PEG 12/27/23 06:00 01/04/24 05:19 112 MCG Losartan Potassium 100 mg DAILY PEG 12/28/23 10:00 01/04/24 12:13 100 MG Acetaminophen/ Hydrocodone Bitart 1 tab Q4HP PRN PEG 12/28/23 16:30 01/04/24 14:37 1 TAB Acetaminophen 650 mg Q6HP PRN GT 12/31/23 19:15 01/03/24 18:00 650 MG Metoprolol Tartrate 37.5 mg BID PEG 01/02/24 14:15 01/04/24 12:32 37.5 MG PHYSICAL EXAM: - GENERAL: Alert and oriented x 3. No acute distress. Well-nourished. - EYES: EOMI. Anicteric. - HENT: Moist mucous membranes. No scleral icterus. No cervical lymphadenopathy. - LUNGS: Clear to auscultation bilaterally. No accessory muscle use. Tach size was downsized to shyly 6. - CARDIOVASCULAR: No murmur. No JVD. tachycardic - ABDOMEN: Soft, non-tender and non-distended. No palpable masses. - EXTREMITIES: No edema. Non-tender.?SKIN: No rashes or lesions. Warm. upper and lower extremities strenght gain. - NEUROLOGIC: No focal neurological deficits. CN II-XII grossly intact, but not individually tested. - PSYCHIATRIC: Cooperative. Appropriate mood and affect. laboratory and microbiology Laboratory Tests 01/04/24 06:51 01/03/24 11:20 Test 01/04/24 06:51 Range/Units Serum Glucose 123 H 74-106 mg/dL Problem List/Assessment/Plan Problems(with codes): (1) COPD (chronic obstructive pulmonary disease) (2) HTN (hypertension) (3) DKA (diabetic ketoacidosis) (4) Hospital-acquired pneumonia (5) Closed right hip fracture Problem List/Assessment/Plan Assessment/Plan Problems(with codes): (1) Hospital-acquired pneumonia (2) COPD (chronic obstructive pulmonary disease) (3) DKA (diabetic ketoacidosis) (4) HTN (hypertension) (5) Closed right hip fracture Plan/Recommendation ASSESSMENT AND PLAN: ID Problem List: - Aspiration pneumonia - Acute respiratory failure - Diabetic Ketoacidosis (DKA) - Sepsis due to UTI vs pneumonia - Acute Kidney Injury (YULIANA) - Hypernatremia - Transaminitis - Fatty liver - Uncontrolled diabetes (A1C of 11.7) - Hypothyroidism - Hypertension - COPD without exacerbation - Chronic kidney disease (CKD) Assessment: This is a 68-year-old female with a past medical history of diabetes, hypertension, recurrent DKA, hypothyroidism, obesity, COPD, neuropathies, mechanical falls, liver cirrhosis, and multiple joint replacements. The patient presented to the ED with acute loss of consciousness on 11/15/2023, subsequently diagnosed with DKA and an upper GI bleed. While at [facility], a CT and MRI of the head showed concerning lesions for metastasis vs. infectious process and gallbladder issues. Due to renal failure, these images were performed without contrast. An ERCP at [facility] showed no gallstones or common bile duct obstruction. Currently, the patient is reintubated on minimal sedation and receiving broad-spectrum antibiotics for presumed meningitis and other infections. 12/09: Patient has had a repeat abdomen, pelvis, chest Ct with contrast which shows no acute findings in the abdomen and pelvis. multifocal airspace in the lungs was shown. 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 12/12: sp trach 12/13: off sedation 12/19: trach 7l,elevated temps 12/23: Sputal culture is showing normal oral pharyngeal jordan, chest X-ray shows clear lungs, yesterdays X-rays show interstitial edema otherwise clear lungs. Recomend patient continue off antibiotics and just do aspiriations. If fever starts , cosider antibiotics for aspiration pnumonia , suspect Pneumonitis 12/26: Peg tube feeding were stopped , soft abdomen and having bowel movements. Chest X-ray shows mild pulmonary congestion. Otherwise patient is stable with no fevers 12/27: Peg tube is dry and intact. Restarted on [place]. Continues to work on physical therapy 12/29: now on 6 liters of drip , improving , recommend incentive spirometry, continue working with physical therapists and encouraged out of bed 01/02: Chest X-ray shows no significant changes, white count dropped to 1.8 and hemoglobin is 9.7 Plan: -start vancomycin and maripenum - continue variconazole -follow up on blood, sputum and urine cultures - continue off antibiotics unless fever starts up -repeat mrsa nares - sp 3 week vancomycin and ceftriaxone course, will monitor patient off all antibiotics - aspiration precautions - Blood cultures monitoring. - Monitor respiratory status and adjust ventilator settings as necessary. - Monitor and manage blood glucose levels. - Supportive care as needed. Plan discussed with: Other Dietary Evaluation Review Comments: 1) If GI is accessible consider Glucerna 1.2 @ 55 ml/hr goal rate as tolerated 2) If pt remains NPO >7 days consider TPN to meet at least 75% of estimated needs 3) Advance pt diet when medically feasible to a CCHO 45g/Cardiac diet modified per MAGAZINE WRITER recommendations 4) Continue current plan of care Expected Outcomes/Goals: 1) Pt to receive nutrition support within 7 days of NPO status 2) Pt diet to advance 3) F/U in 2-3 days NITHIN ANAYA MD Jan 04, 2024 20:34
[2024-01-05] VITALS (18 sets, daily range): BP systolic 125–152; BP diastolic 51–76; PULSE 62–94; RESP 14–20; TEMP 97.6–98.9; O2SAT 93–100
[2024-01-05 05:16] LABS: Basophils # (auto) 0.1 10 ^3/uL (0-0.2); Basophils % (auto) 0.5 % (0.0-2.0); Eosinophils # (auto) 0.3 10 ^3/uL (0-0.8); Eosinophils % (auto) 2.6 % (0.0-7.0); Hematocrit 30.5 % (36.0-46.0); Hemoglobin 10.1 g/dL (12.2-16.2); Lymphocytes # (auto) 3.4 10 ^3/uL (0.4-5.4); Lymphocytes % (auto) 31.2 % (10.0-50.0); Mean Corpuscular Hemoglobin 28.6 pg (28.0-32.0); Mean Corpuscular Hgb Conc. 33.1 g/dL (32.0-36.0); Mean Corpuscular Volume 86.2 fL (80.0-100.0); Monocytes # (auto) 0.6 10 ^3/uL (0-1.3); Monocytes % (auto) 5.4 % (0.0-12.0); Neutrophils # (auto) 6.6 10 ^3/uL (1.6-8.6); Neutrophils % (auto) 60.3 % (37.0-80.0); Nucleated Red Blood Cells % 0.1 %; Platelet Count (auto) 492 10^3/uL (140-450); Red Blood Cells 3.54 10^6/uL (4.0-5.20); Red Cell Distribution Width 16.5 % (11.8-14.3); White Blood Cell 10.9 10^3/uL (4.4-10.8)
[2024-01-05 05:30] LABS: Alanine Aminotransferase 11 U/L (7-40); Albumin 3.8 g/dL (3.2-4.8); Alkaline Phosphatase 129 U/L (46-116); Anion Gap 8 (5-15); Aspartate Aminotransferase 16 U/L (13-40); BUN/Creatinine Ratio 12.9 (10.0-20.0); Blood Urea Nitrogen 12 mg/dL (9-23); Calcium 9.8 mg/dL (8.7-10.4); Carbon Dioxide 22 mmol/L (20-31); Chloride 102 mmol/L (98-107); Glucose 184 mg/dL (74-106); Magnesium 1.7 mg/dL (1.6-2.6); Potassium 4.2 mmol/L (3.5-5.1)
[2024-01-05 05:31] LABS: Bilirubin, Total 0.2 mg/dL (0.2-1.0); Sodium 132 mmol/L (136-145); Total Protein 6.5 g/dL (5.7-8.2)
--- NOTE | 2024-01-05 09:50 | DVHPNRES ---
Progress Note Date Seen: Jan 05, 2024 Resident Creating Document: DANELLE MENDIETA RESIDENT Has the PT tested + for MRSA If YES, has PT been informed?: No Medical Necessity Reason Pt with a Central, PICC or Fol: Yes The following are medically ne: PICC Line, Carr Catheter Reason for carr catheter: Strict I&O Subjective Review of Systems This is a 68-year-old female with past medical history of hypertension, diabetes mellitus type 2, hypothyroidism, COPD, obesity, diabetic polyneuropathy, liver cirrhosis, right knee replacement, multiple admissions for DKA. The patient was initially seen at [facility] on 11/16/2023 where he was intubated and transferred to our facility. At our facility he was treated for DKA and was found to have space occupying lesions in the brain (metastasis/infection/stroke) MRI of the head was done with no conclusive findings at that time. CT scan of the abdomen and pelvis at that time showed dilation of common bile duct and GI recommended ERCP/endoscopic ultrasound so patient was transferred on 11/26/2023 to [place]. ERCP and ultrasound was performed showing no obstruction either malignancy or stone at that time. Neurosurgery at [place] evaluated MRI results and stated that could be due to infarcts. Neurologist was against lumbar puncture due to increased risk of herniation. patient was extubated on November 28, 2023 and was transferred step-down unit with 2 L of nasal cannula but lately on December 02 patient became shortness of breath tachypneic required reintubation. The patient had sepsis of unknown etiology and they thought it might be related to the brain lesions so patient was started on broad-spectrum IV antibiotics with MRSA coverage. Patient was readmitted back at [facility]. Patient seen and examined at bedside. Patient is currently saturating 95% on room air. Patient is now using speaking valve on the trach tube and is currently speaking with a very low voice. Patient is actively working with physical therapy and has gained significant strength compared to admission. We will continue doing physical therapy and monitoring patient closely. ROS Constitutional: Denies weight loss, fever and chills. HEENT: Denies changes in vision and hearing. Respiratory: Denies shortness of breath and cough Cardiovascular: Denies chest discomfort or palpitations GI: Denies abdominal pain, nausea, vomiting and diarrhea. : Denies dysuria and urinary frequency. Musculoskeletal: Denies myalgias and joint pain Skin: Denies rash and pruritus. Neurological: Denies dizziness, headache, vision or hearing problems Objective vital signs Vital Sign Date Time Temp Pulse Resp B/P (MAP) Pulse Ox O2 Delivery O2 Flow Rate FiO2 01/05/24 06:49 67 18 100 01/05/24 06:42 Room Air* 0 21 01/05/24 04:55 97.6 141/59 (86) 97.6 Total Intake and Output 01/04/24 01/04/24 01/05/24 15:00 23:00 07:00 Intake Total 121 ml 0 ml 680 ml Output Total 450 ml 350 ml Balance 121 ml -450 ml 330 ml medications Current Medications Medications Dose Ordered Sig/Leslie Route Start Time Stop Time Status Last Admin Dose Admin Albuterol 2.5 mg Q4HR PRN NEB 12/08/23 19:30 01/05/24 02:29 2.5 MG Ipratropium Elida 0.5 mg Q4HR NEB 12/08/23 22:00 01/05/24 06:42 0.5 MG Ondansetron HCl 4 mg Q4HP PRN IV 12/08/23 19:30 Pantoprazole Sodium 40 mg DAILY IV 12/09/23 10:00 01/04/24 12:13 40 MG Hydralazine HCl 10 mg Q4HP PRN IV 12/09/23 05:30 01/03/24 02:14 10 MG Sodium Chloride 10 ml QSHIFT@10,22 IV 12/09/23 22:00 01/04/24 21:50 10 ML Metoclopramide HCl 5 mg Q6HPRN PRN IV 12/13/23 21:45 Lorazepam 1 mg Q4H PRN IV 12/17/23 00:15 12/24/23 06:15 1 MG Acetylcysteine 200 mg Q8HR NEB 12/22/23 22:00 01/04/24 22:56 200 MG Enteral Nutritional Formula 1,000 ml 40ML/HR GT 12/24/23 09:15 01/02/24 01:27 1,000 ML Insulin Glargine 15 units DAILY@1000 SC 12/24/23 13:30 01/03/24 10:35 15 UNITS Diagnostic Test (Pha) 1 strip Q6HR 12/24/23 18:00 01/05/24 06:02 1 STRIP Insulin Human Regular Q6HR SC 12/24/23 18:00 01/05/24 01:21 6 UNITS Dextrose 50 ml UD PRN IV 12/24/23 13:30 01/04/24 17:53 50 ML Apixaban 2.5 mg BID PEG 12/26/23 22:00 01/04/24 21:50 2.5 MG Gabapentin 100 mg BID PEG 12/26/23 22:00 01/04/24 21:50 100 MG Levothyroxine Sodium 112 mcg QAM@0600 PEG 12/27/23 06:00 01/05/24 06:02 112 MCG Losartan Potassium 100 mg DAILY PEG 12/28/23 10:00 01/04/24 12:13 100 MG Acetaminophen/ Hydrocodone Bitart 1 tab Q4HP PRN PEG 12/28/23 16:30 01/04/24 22:37 1 TAB Acetaminophen 650 mg Q6HP PRN GT 12/31/23 19:15 01/03/24 18:00 650 MG Metoprolol Tartrate 37.5 mg BID PEG 01/02/24 14:15 01/04/24 21:51 37.5 MG Examination Physical Examination: General: Patient opens eyes spontaneously to voice, Breathing on rooom air sat 95% HEENT: Normocephalic, atraumatic, moist mucous membranes, trach tube on place. Respiratory/pulmonary: Bilateral lung sounds grossly clear, no major crackles or wheezes at this time. Cardiovascular: Regular heart sounds S1 and S2 with no associated murmurs. Abdomen: Abdomen nondistended, there is mild pain to palpation to the epigastric region, no palpable masses. PEG tube on place with no signs in infection at this time. Extremities: There are no peripheral edema at this time. There is increase in motor strength in all 4 extremities and patient is now able to move lower extremities. Peripheral Pulses: 3+ Radial (R). 3+ Radial (L). 3+ Dorsalis pedis (R). 3+ Dorsalis pedis(L) Skin: No rashes or pruritus, there is no sacral edema present at this time. Neurological: Cranial nerves not able to evaluate independently. Patient responds to verbal stimuli and not head answering simple questions. Patient is slightly moving bilateral upper extremities. Patient is actively moving lower extremities. laboratory and microbiology Laboratory Tests 01/05/24 04:39 Test 01/05/24 04:39 Range/Units Serum Glucose 184 H 74-106 mg/dL Microbiology Date/Time Source Procedure Growth Status 12/21/23 09:42 Trachea Gram Stain - Final Complete 12/21/23 09:42 Respiratory Culture - Final Yeast, not Sapphire albicans Complete 12/14/23 19:42 Voided Urine Urine Culture - Final Complete 12/09/23 09:28 Blood Blood Culture - Final NO GROWTH AFTER 5 DAYS OF INCUBATION. Complete 12/08/23 19:00 Sputum Gram Stain - Final Complete 12/08/23 19:00 Sputum Respiratory Culture - Final Complete Problem List/Assessment/Plan Problem List/Assessment/Plan Assessment/Plan Neurology Acute metabolic encephalopathy likely in the setting of sepsis versus brain occupying lesions (metastasis/infection/stroke) -patient has a previous MRI at this facility showing no conclusive diagnosis, At [facility]ady did not got any conclusive diagnosis as well. -failed extubation at [place] -CT scan of the head performed at this visit show hypodensities in bilateral cerebellum with no acute intracranial abnormalities. -MRI with contrast of the brain should be performed to clarify etiology of brain occupying lesions. Study was hold today due to YULIANA, we will wait for renal function recovery, meanwhile we will try to decrease sedation and assess neurologic response clinically. -Will order MRI of the brain with contrast (cancel it since neurology recommended MRI SPECT tomography of the brain which could not be performed at this facility) Brain lessions on MRI w/o contrast, unknown etiology -we will perform brain MRI with contrast once kidney function recovers. -lab workup performed at [place] was negative for blastomycosis, tuberculosis, cryptococcosis Polyneuropathy -Continue gabapentin 100mg BID Sedation -OFF sedation Not on vasopressors at this time. Cardiology Acute on chronic diastolic heart failure (HFpEF 55%) -Both echocardiograms TTE YOLANDA were performed showing no vegetations or cardiac valve abn. Ruled out endocarditis -YOLANDA performed on 12/10/2023 showed normal cardiac valves with no vegetations at that time. Primary hypertension -Continue losartan 50mg QD -Continue metoprolol 25mg PO BID Respiratory S/P tracheostomy performed today in the morning (12/13/23) -Patient currently on room air sat 94% -Trach tube was downsized on 01/03/24 from 8.5 to a 6.0 fenestrated cuff trach tube Acute hypoxic respiratory failure likely in the setting of aspiration pneumonia -IV Unasyn was discontinued -on tarach collar as described above -CT of the chest/abdomen and pelvis showed no acute findings in the abdominal pelvics but showed multifocal airspace disease and cardiomegaly -chest x-ray performed today showed stable pulmonary congestion right lower lobe infiltration can not be excluded -Physical therapy working with the patient now placed order for twice a day. -Trach tube was downsized on 01/03/24 from 8.5 to a 6.0 fenestrated cuff trach tube Sepsis in the setting of aspiration pneumonia -continue IV antibiotics as described above Infectious disease Sepsis likely due to aspiration pneumonia and UTI -Completed abs treatment UTI UA suggestive of UTI but last urine culture showed no growth -Ordered new U/A came back suggesting UTI -Urine culture came back negative Possible brain abscess/infectious occupying lesions -completed IV Unasyn treatment Endocrinology Type 2 diabetes mellitus, DKA on previous admissions -Continue moderate sliding scale insulin -Continue Lantus 15 units q.a.m. -Not on Lantus at this time Diabetic polyneuropathy -Patient sedated, monitor Hypothyroidism -Last TSH was 17.87 -today, ordered free T4 and T3 which came back 0.48 and 0.79 respectively -Continue levothyroxine 112mcgQAM -Ordered new FT4 which came back at 0.83 (improving but still low) Gastroenterology Acute transaminitis, resolved -AST 20, ALT 16 -Continue monitoring Cholelithiasis w/o cholecystitis -CT abdomen showed cholelithiasis w/o findings suggestive of cholecystitis Hematology Superficial thrombophlebitis of right cephalic and basilic veins -no need for anticoagulation DVT of the left brachial vein -Continue eliquis 2.5mg BID -Ordered left upper extremity venous Doppler to rule out DVT since the patient is reporting left upper extremity pain. Nephrology YLUIANA likely due to VMN -Last creatinine was 0.93 and BUN 12 -Monitor kidney function Nutrition -Continue on glucerna at 40cc/hr Continue physical therapy to twice a day Lines: PICC line on left upper arm placed on 12/09/2023 Goals of care discussed with the patient for > 23min Plan discussed with Dr. Razo Plan discussed with: Patient Dietary Evaluation Review Comments: 1) If GI is accessible consider Glucerna 1.2 @ 55 ml/hr goal rate as tolerated 2) If pt remains NPO >7 days consider TPN to meet at least 75% of estimated needs 3) Advance pt diet when medically feasible to a CCHO 45g/Cardiac diet modified per [employer] recommendations 4) Continue current plan of care Expected Outcomes/Goals: 1) Pt to receive nutrition support within 7 days of NPO status 2) Pt diet to advance 3) F/U in 2-3 days Date of Service: Jan 05, 2024 Billing Provider: FREEDOM RAZO MD Common Visit Codes: [id number] INP/OBS CARE(HIGH) DANELLE MENDIETA RESIDENT Jan 05, 2024 09:50 FREEDOM RAZO MD Jan 06, 2024 13:11
--- NOTE | 2024-01-05 10:35 | DVHPN2 ---
Progress Note - Dictate Date Seen: Jan 05, 2024 Has the PT tested + for MRSA If YES, has PT been informed?: No Medical Necessity Reason Pt with a Central, PICC or Fol: Yes The following are medically ne: PICC Line, Carr Catheter Reason for carr catheter: Strict I&O Subjective Mr. Sanderson is a 68 years old female with a history of hypertension, diabetes, hypothyroidism, COPD, obesity, diabetic polyneuropathy, arthritis, liver cirrhosis, she was transferred back from [facility] on 12/08/2023 after ERCP. I have seen examined the patient, I have talked to her nurse, she is awake, able to talk a little bit, she is oriented to person, place, follows verbal commands, muscle power is off the stronger, especially in the arms She pulls the lines sometimes LLU Neurosurgery consultation: The lesions likely represents infarct, recommend Re attempting MRI spectrography for further evaluation Neuro consultation: Lumbar puncture was not recommended concerning possibility of herniation EEG, 11/28/2023: No seizure/nonconvulsive status epileptics (I did not see report) TTE, 11/29/23: EF: 70-75% (I did not see report) MRI brain (no report): signal abnormality in bilateral cerebellum and right occipital lobe, punctate foci in right parietal lobe and central semiovale- unable to differentiate subacute ischemia 2/2 MR effects versus infection versus metastasis. Recommend contrast enhanced MRI MRI, 12/05/23: No evidence of demyelinating disease (I did not see report) MRI orbital, face, neck ww 12/05/2023, comparison: MR brain 11/28/2023: No evidence of mucormycosis infection. Multiple irregularly enhancing cerebellar and right occipital lesions were better evaluated on recent brain MRI MRI C-spine, 12/05/2023: No evidence of demyelinating disease in the cervical spine. Moderate degenerative changes. Grade 1 anterolisthesis of C7 on T1 MRI lumbar spine wwo, 12/05/2023: No evidence of demyelinating disease in the lumbar spine. Degenerative changes and grade 1 anterolisthesis of L4 and L5. Mild central spinal stenosis at L4-5. [id number] multilevel bilateral foraminal stenosis as described above MRI spectroscopy 12/05/2023: Cerebellar lesion showing moderately elevated Cho, reduced ZINA, large lipid peaks, and additional tics suspicious for amino acids and alanine. The alanine and amino acids are suspicious for an infectious process Treatment according to discharge note: ASA 81mg Qd, Lipitor 20 mg daily Urinalysis, 12/08/2023: WBC: 93, urine leukocyte esterase: 3+ ABG, 12/09/2023: Metabolic acidosis WBC/HB/PLT/MCV, 12/09/2023: 8.5/7.4/350/92.4 PT/INR/PTT, 12/08/2023: 11.4/1.08 Na, 12/08/2023: 147, 12/09/2023: 146, 12/19/2019 4:148 HCO3, 12/08/2023: 23, 12/10/2023: 22, 11/2123: 19, 12/13/23: 18, 12/16/2023: 15, 12/19/2023: 17 CPK, 12/18/2023: 54 TBI/AST/ALT/AP, 12/09/2023: 0.2/40/21/278 TG/HDL/LDL/HDL, 11/2023: 136/96/38/32 Vitamin B12, 11/2023: 2537 TSH, 11/2023: 17.87 YOLANDA, 12/10/2023: n the study done today no evidence of vegetation or masses were discernible. There is mild mitral valve regurgitation with mild anterior leaflet prolapse. No significant intracardiac lesion was discernible Echocardiogram, 11/18/2023: Normal left ventricular size and dimension. Normal left ventricular systolic function estimated ejection fraction 55%. There is a grade 1 diastolic dysfunction. Normal right ventricular size and dimension. Normal right ventricular systolic function. Mildly increased right ventricular systolic pressure 34 mm of mercury. Normal biatrial size and dimension. Normal aortic valve structure and function. Normal mitral valve structure and function. Normal tricuspid valve structure and function. The pulmonary valve is grossly normal. No pericardial effusion. Carotid Doppler, 11/21/2023: 1. No evidence of hemodynamically significant stenosis within the left carotid arterial system. 2. Antegrade flow within the left vertebral artery. 3. Cannot assess the right carotid arterial system due to central line artifact and overlying bandage. Extremity venous study, 12/09/2023: Thrombus in the LEFT cephalic and brachial vein. Thrombus in the RIGHT cephalic and basilic vein.If clinical concern/symptoms persist or worsen, short-interval follow-up study is suggested. Chest x-ray, 12/08/2023: 1. Endotracheal and gastric tubes in place as described. Satisfactory position. 2. Removal of right PICC and right IJ central venous catheter since prior. 3. Mild cardiomegaly and pulmonary vascular congestion. 4. Small opacity in the lateral right lung base which could reflect atelectasis or pneumonia MRI head, 11/21/2023: Signal abnormality in the bilateral cerebellum and right occipital lobe, as well as punctate foci in the right parietal lobe and centrum semiovale. Findings could represent regions of subacute ischemia due to embolic infarcts; however, underlying metastases or infection are not excluded. Recommend contrast-enhanced MRI vital signs Vital Sign Date Time Temp Pulse Resp B/P (MAP) Pulse Ox O2 Delivery O2 Flow Rate FiO2 01/05/24 09:44 141/59 01/05/24 09:43 67 01/05/24 06:49 18 100 01/05/24 06:42 Room Air* 0 21 01/05/24 04:55 97.6 97.6 Total Intake and Output 01/04/24 01/04/24 01/05/24 15:00 23:00 07:00 Intake Total 121 ml 0 ml 680 ml Output Total 450 ml 350 ml Balance 121 ml -450 ml 330 ml medications Current Medications Medications Dose Ordered Sig/Leslie Route Start Time Stop Time Status Last Admin Dose Admin Albuterol 2.5 mg Q4HR PRN NEB 12/08/23 19:30 01/05/24 02:29 2.5 MG Ipratropium [place] 0.5 mg Q4HR NEB 12/08/23 22:00 01/05/24 06:42 0.5 MG Ondansetron HCl 4 mg Q4HP PRN IV 12/08/23 19:30 Pantoprazole Sodium 40 mg DAILY IV 12/09/23 10:00 01/05/24 09:46 40 MG Hydralazine HCl 10 mg Q4HP PRN IV 12/09/23 05:30 01/03/24 02:14 10 MG Sodium Chloride 10 ml QSHIFT@10,22 IV 12/09/23 22:00 01/05/24 09:46 10 ML Metoclopramide HCl 5 mg Q6HPRN PRN IV 12/13/23 21:45 Lorazepam 1 mg Q4H PRN IV 12/17/23 00:15 12/24/23 06:15 1 MG Acetylcysteine 200 mg Q8HR NEB 12/22/23 22:00 01/04/24 22:56 200 MG Enteral Nutritional Formula 1,000 ml 40ML/HR GT 12/24/23 09:15 01/02/24 01:27 1,000 ML Insulin Glargine 15 units DAILY@1000 SC 12/24/23 13:30 01/05/24 10:05 15 UNITS Diagnostic Test (Pha) 1 strip Q6HR 12/24/23 18:00 01/05/24 06:02 1 STRIP Insulin Human Regular Q6HR SC 12/24/23 18:00 01/05/24 01:21 6 UNITS Dextrose 50 ml UD PRN IV 12/24/23 13:30 01/04/24 17:53 50 ML Apixaban 2.5 mg BID PEG 12/26/23 22:00 01/05/24 09:45 2.5 MG Gabapentin 100 mg BID PEG 12/26/23 22:00 01/05/24 09:45 100 MG Levothyroxine Sodium 112 mcg QAM@0600 PEG 12/27/23 06:00 01/05/24 06:02 112 MCG Losartan Potassium 100 mg DAILY PEG 12/28/23 10:00 01/05/24 09:44 100 MG Acetaminophen/ Hydrocodone Bitart 1 tab Q4HP PRN PEG 12/28/23 16:30 01/05/24 09:45 1 TAB Acetaminophen 650 mg Q6HP PRN GT 12/31/23 19:15 01/03/24 18:00 650 MG Metoprolol Tartrate 37.5 mg BID PEG 01/02/24 14:15 01/05/24 09:43 37.5 MG objective The patient is well-nourished and well-developed with no distress. Status post tracheostomy and feeding tube insertion MENTAL STATUS: Subjective CRANIAL NERVES: Pupils are equal, round and reactive, small. There are c onjugated eye movements. No signs of facial weakness. There are no gagging or coughing reflexes during oral care SENSATION: Responses to pain stimuli. MOTOR: Normal tone in the upper and lower extremity. Normal muscle bulk. No fasciculations. Muscle Bear: Arms: Right: 4-5/5, left 3/5. REFLEXES: Deep tendon reflexes are symmetrical. Bilateral upgoing toes CEREBELLAR/COORDINATION: Deferred GAIT/STATION: deferred. laboratory and microbiology Laboratory Tests 01/05/24 04:39 Test 01/05/24 04:39 Range/Units Serum Glucose 184 H 74-106 mg/dL Problem List Abnormal MRI brain scan, likely the patient has multiple stroke Coma Metabolic encephalopathy Hypoxic encephalopathy Multiple strokes Ketoacidosis ICU myopathy, improving Bilateral upper extremity deep venous thrombosis Rule out subacute endocarditis Status post tracheostomy Status post PEG tube Assessment/Plan Monitoring Supportive treatment Respiratory support IV antibiotics Eliquis 2.5 mg b.i.d. Tube feeding Cardiology on case Infectious disease on case More recommendation per clinical course This medical document was created using an electronic medical record system with [employer] dictation system. Although this document has been carefully reviewed, there may still be some phonetic and typographical errors. These areas are purely typographical due to imperfections of the software programs, and do not reflect any compromise in the patient's medical care. Prognosis poor Dietary Evaluation Review Comments: 1) If GI is accessible consider Glucerna 1.2 @ 55 ml/hr goal rate as tolerated 2) If pt remains NPO >7 days consider TPN to meet at least 75% of estimated needs 3) Advance pt diet when medically feasible to a CCHO 45g/Cardiac diet modified per [employer] recommendations 4) Continue current plan of care Expected Outcomes/Goals: 1) Pt to receive nutrition support within 7 days of NPO status 2) Pt diet to advance 3) F/U in 2-3 days Plan discussed with: Other DREW FAGAN MD Jan 05, 2024 10:35
--- NOTE | 2024-01-05 19:58 | DVHPN2 ---
Consult Progress Note Date Seen: Jan 05, 2024 Subjective Patient reports: No new complaints (doing well, blood sugars have recovered) Objective vital signs Vital Sign Date Time Temp Pulse Resp B/P (MAP) Pulse Ox O2 Delivery O2 Flow Rate FiO2 01/05/24 18:16 70 16 94 01/05/24 18:06 Trach Collar 8 35 35 01/05/24 17:00 98.7 125/51 (75) 98.7 Total Intake and Output 01/04/24 01/04/24 01/05/24 15:00 23:00 07:00 Intake Total 121 ml 0 ml 680 ml Output Total 450 ml 350 ml Balance 121 ml -450 ml 330 ml medications Current Medications Medications Dose Ordered Sig/Leslie Route Start Time Stop Time Status Last Admin Dose Admin Albuterol 2.5 mg Q4HR PRN NEB 12/08/23 19:30 01/05/24 18:06 2.5 MG Ipratropium [place] 0.5 mg Q4HR NEB 12/08/23 22:00 01/05/24 18:06 0.5 MG Ondansetron HCl 4 mg Q4HP PRN IV 12/08/23 19:30 Pantoprazole Sodium 40 mg DAILY IV 12/09/23 10:00 01/05/24 09:46 40 MG Hydralazine HCl 10 mg Q4HP PRN IV 12/09/23 05:30 01/03/24 02:14 10 MG Sodium Chloride 10 ml QSHIFT@10,22 IV 12/09/23 22:00 01/05/24 09:46 10 ML Metoclopramide HCl 5 mg Q6HPRN PRN IV 12/13/23 21:45 Lorazepam 1 mg Q4H PRN IV 12/17/23 00:15 12/24/23 06:15 1 MG Acetylcysteine 200 mg Q8HR NEB 12/22/23 22:00 01/05/24 18:06 200 MG Enteral Nutritional Formula 1,000 ml 40ML/HR GT 12/24/23 09:15 01/05/24 14:04 1,000 ML Insulin Glargine 15 units DAILY@1000 SC 12/24/23 13:30 01/05/24 10:05 15 UNITS Diagnostic Test (Pha) 1 strip Q6HR 12/24/23 18:00 01/05/24 18:25 1 STRIP Insulin Human Regular Q6HR SC 12/24/23 18:00 01/05/24 13:33 12 UNITS Dextrose 50 ml UD PRN IV 12/24/23 13:30 01/05/24 17:45 50 ML Apixaban 2.5 mg BID PEG 12/26/23 22:00 01/05/24 09:45 2.5 MG Gabapentin 100 mg BID PEG 12/26/23 22:00 01/05/24 09:45 100 MG Levothyroxine Sodium 112 mcg QAM@0600 PEG 12/27/23 06:00 01/05/24 06:02 112 MCG Losartan Potassium 100 mg DAILY PEG 12/28/23 10:00 01/05/24 09:44 100 MG Acetaminophen/ Hydrocodone Bitart 1 tab Q4HP PRN PEG 12/28/23 16:30 01/05/24 09:45 1 TAB Acetaminophen 650 mg Q6HP PRN GT 12/31/23 19:15 01/03/24 18:00 650 MG Metoprolol Tartrate 37.5 mg BID PEG 01/02/24 14:15 01/05/24 09:43 37.5 MG PHYSICAL EXAM: - GENERAL: Alert and oriented x 3. No acute distress. Well-nourished. - EYES: EOMI. Anicteric. - HENT: Moist mucous membranes. No scleral icterus. No cervical lymphadenopathy. - LUNGS: Clear to auscultation bilaterally. No accessory muscle use. Tach size was downsized to shyly 6. - CARDIOVASCULAR: No murmur. No JVD. tachycardic - ABDOMEN: Soft, non-tender and non-distended. No palpable masses. - EXTREMITIES: No edema. Non-tender.?SKIN: No rashes or lesions. Warm. upper and lower extremities strenght gain. - NEUROLOGIC: No focal neurological deficits. CN II-XII grossly intact, but not individually tested. - PSYCHIATRIC: Cooperative. Appropriate mood and affect. laboratory and microbiology Laboratory Tests 01/05/24 04:39 Test 01/05/24 04:39 Range/Units Serum Glucose 184 H 74-106 mg/dL Problem List/Assessment/Plan Problems(with codes): (1) COPD (chronic obstructive pulmonary disease) (2) HTN (hypertension) (3) DKA (diabetic ketoacidosis) (4) Hospital-acquired pneumonia (5) Closed right hip fracture Problem List/Assessment/Plan Assessment/Plan Problems(with codes): (1) Hospital-acquired pneumonia (2) COPD (chronic obstructive pulmonary disease) (3) DKA (diabetic ketoacidosis) (4) HTN (hypertension) (5) Closed right hip fracture Plan/Recommendation ASSESSMENT AND PLAN: ID Problem List: - Aspiration pneumonia - Acute respiratory failure - Diabetic Ketoacidosis (DKA) - Sepsis due to UTI vs pneumonia - Acute Kidney Injury (YULIANA) - Hypernatremia - Transaminitis - Fatty liver - Uncontrolled diabetes (A1C of 11.7) - Hypothyroidism - Hypertension - COPD without exacerbation - Chronic kidney disease (CKD) Assessment: This is a 68-year-old female with a past medical history of diabetes, hypertension, recurrent DKA, hypothyroidism, obesity, COPD, neuropathies, mechanical falls, liver cirrhosis, and multiple joint replacements. The patient presented to the ED with acute loss of consciousness on 11/15/2023, subsequently diagnosed with DKA and an upper GI bleed. While at [facility], a CT and MRI of the head showed concerning lesions for metastasis vs. infectious process and gallbladder issues. Due to renal failure, these images were performed without contrast. An ERCP at [facility] showed no gallstones or common bile duct obstruction. Currently, the patient is reintubated on minimal sedation and receiving broad-spectrum antibiotics for presumed meningitis and other infections. 12/09: Patient has had a repeat abdomen, pelvis, chest Ct with contrast which shows no acute findings in the abdomen and pelvis. multifocal airspace in the lungs was shown. 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 12/12: sp trach 12/13: off sedation 12/19: trach 7l,elevated temps 12/23: Sputal culture is showing normal oral pharyngeal jordan, chest X-ray shows clear lungs, yesterdays X-rays show interstitial edema otherwise clear lungs. Recomend patient continue off antibiotics and just do aspiriations. If fever starts , cosider antibiotics for aspiration pnumonia , suspect Pneumonitis 12/26: Peg tube feeding were stopped , soft abdomen and having bowel movements. Chest X-ray shows mild pulmonary congestion. Otherwise patient is stable with no fevers 12/27: Peg tube is dry and intact. Restarted on [place]. Continues to work on physical therapy 12/29: now on 6 liters of drip , improving , recommend incentive spirometry, continue working with physical therapists and encouraged out of bed 01/02: Chest X-ray shows no significant changes, white count dropped to 1.8 and hemoglobin is 9.7 Plan: -start vancomycin and maripenum - continue variconazole -follow up on blood, sputum and urine cultures - continue off antibiotics unless fever starts up -repeat mrsa nares - sp 3 week vancomycin and ceftriaxone course, will monitor patient off all antibiotics - aspiration precautions - Blood cultures monitoring. - Monitor respiratory status and adjust ventilator settings as necessary. - Monitor and manage blood glucose levels. - Supportive care as needed. Plan discussed with: Other Dietary Evaluation Review Comments: 1) If GI is accessible consider Glucerna 1.2 @ 55 ml/hr goal rate as tolerated 2) If pt remains NPO >7 days consider TPN to meet at least 75% of estimated needs 3) Advance pt diet when medically feasible to a CCHO 45g/Cardiac diet modified per [employer] recommendations 4) Continue current plan of care Expected Outcomes/Goals: 1) Pt to receive nutrition support within 7 days of NPO status 2) Pt diet to advance 3) F/U in 2-3 days NITHIN ANAYA MD Jan 05, 2024 19:58
[2024-01-06] VITALS (21 sets, daily range): BP systolic 131–155; BP diastolic 51–79; PULSE 62–93; RESP 17–20; TEMP 97.2–98.3; O2SAT 93–100
[2024-01-06 06:54] LABS: Anion Gap 5 (5-15); Carbon Dioxide 25 mmol/L (20-31); Chloride 106 mmol/L (98-107); Potassium 4.2 mmol/L (3.5-5.1); Sodium 136 mmol/L (136-145)
[2024-01-06 06:55] LABS: Calcium 9.9 mg/dL (8.7-10.4)
[2024-01-06 07:00] LABS: BUN/Creatinine Ratio 15.3 (10.0-20.0); Blood Urea Nitrogen 13 mg/dL (9-23); Glucose 81 mg/dL (74-106); Magnesium 1.9 mg/dL (1.6-2.6)
[2024-01-06 07:26] LABS: Basophils # (auto) 0.1 10 ^3/uL (0-0.2); Basophils % (auto) 1.1 % (0.0-2.0); Eosinophils # (auto) 0.3 10 ^3/uL (0-0.8); Eosinophils % (auto) 3.3 % (0.0-7.0); Hematocrit 27.9 % (36.0-46.0); Hemoglobin 8.9 g/dL (12.2-16.2); Lymphocytes # (auto) 2.8 10 ^3/uL (0.4-5.4); Lymphocytes % (auto) 35.3 % (10.0-50.0); Mean Corpuscular Hemoglobin 27.6 pg (28.0-32.0); Mean Corpuscular Volume 86.3 fL (80.0-100.0); Monocytes # (auto) 0.5 10 ^3/uL (0-1.3); Monocytes % (auto) 6.6 % (0.0-12.0); Neutrophils # (auto) 4.3 10 ^3/uL (1.6-8.6); Neutrophils % (auto) 53.7 % (37.0-80.0); Nucleated Red Blood Cells % 0.1 %; Platelet Count (auto) 407 10^3/uL (140-450); Red Blood Cells 3.23 10^6/uL (4.0-5.20); Red Cell Distribution Width 16.3 % (11.8-14.3)
--- NOTE | 2024-01-06 07:50 | DVHPNRES ---
Progress Note Date Seen: Jan 06, 2024 Resident Creating Document: DANELLE MENDIETA RESIDENT Has the PT tested + for MRSA If YES, has PT been informed?: No Medical Necessity Reason Pt with a Central, PICC or Fol: Yes The following are medically ne: PICC Line, Carr Catheter Reason for carr catheter: Strict I&O Subjective Review of Systems This is a 68-year-old female with past medical history of hypertension, diabetes mellitus type 2, hypothyroidism, COPD, obesity, diabetic polyneuropathy, liver cirrhosis, right knee replacement, multiple admissions for DKA. The patient was initially seen at [facility] on 11/16/2023 where he was intubated and transferred to our facility. At our facility he was treated for DKA and was found to have space occupying lesions in the brain (metastasis/infection/stroke) MRI of the head was done with no conclusive findings at that time. CT scan of the abdomen and pelvis at that time showed dilation of common bile duct and GI recommended ERCP/endoscopic ultrasound so patient was transferred on 11/26/2023 to [facility]. ERCP and ultrasound was performed showing no obstruction either malignancy or stone at that time. Neurosurgery at [facility] evaluated MRI results and stated that could be due to infarcts. Neurologist was against lumbar puncture due to increased risk of herniation. patient was extubated on November 28, 2023 and was transferred step-down unit with 2 L of nasal cannula but lately on December 02 patient became shortness of breath tachypneic required reintubation. The patient had sepsis of unknown etiology and they thought it might be related to the brain lesions so patient was started on broad-spectrum IV antibiotics with MRSA coverage. Patient was readmitted back at [facility]. Patient seen and examined at bedside. Patient is currently on room air saturating 93%. Patient is able to talk, getting upper strength moving lower extremities and per physical therapist is sitting in the chair for 30 minutes and actually able to stand up with help. Patient expressed the willingness of eating by mouth. We explained that she is at high risk of aspiration but she still thinks she is able to swallow at this time. We will order a swallow evaluation to determine the possibility of starting oral nutrition. RT also working on cap in the valve during periods of the day. ROS Constitutional: Denies weight loss, fever and chills. HEENT: Denies changes in vision and hearing. Respiratory: Denies shortness of breath and cough Cardiovascular: Denies chest discomfort or palpitations GI: Denies abdominal pain, nausea, vomiting and diarrhea. : Denies dysuria and urinary frequency. Musculoskeletal: Denies myalgias and joint pain Skin: Denies rash and pruritus. Neurological: Denies dizziness, headache, vision or hearing problems Objective vital signs Vital Sign Date Time Temp Pulse Resp B/P (MAP) Pulse Ox O2 Delivery O2 Flow Rate FiO2 01/06/24 06:36 68 20 100 01/06/24 06:27 Trach Collar 10 N/A 01/06/24 05:00 97.6 131/79 (96) 97.6 Total Intake and Output 01/05/24 01/05/24 01/06/24 15:00 23:00 07:00 Intake Total 0 ml 0 ml Output Total 625 ml 400 ml Balance -625 ml -400 ml medications Current Medications Medications Dose Ordered Sig/Leslie Route Start Time Stop Time Status Last Admin Dose Admin Albuterol 2.5 mg Q4HR PRN NEB 12/08/23 19:30 01/06/24 02:15 2.5 MG Ipratropium [place] 0.5 mg Q4HR NEB 12/08/23 22:00 01/06/24 06:25 0.5 MG Ondansetron HCl 4 mg Q4HP PRN IV 12/08/23 19:30 Pantoprazole Sodium 40 mg DAILY IV 12/09/23 10:00 01/05/24 09:46 40 MG Hydralazine HCl 10 mg Q4HP PRN IV 12/09/23 05:30 01/03/24 02:14 10 MG Sodium Chloride 10 ml QSHIFT@ IV 12/09/23 22:00 01/05/24 22:42 10 ML Metoclopramide HCl 5 mg Q6HPRN PRN IV 12/13/23 21:45 Lorazepam 1 mg Q4H PRN IV 12/17/23 00:15 01/06/24 01:02 1 MG Acetylcysteine 200 mg Q8HR NEB 12/22/23 22:00 01/06/24 06:25 200 MG Enteral Nutritional Formula 1,000 ml 40ML/HR GT 12/24/23 09:15 01/05/24 14:04 1,000 ML Insulin Glargine 15 units DAILY@1000 SC 12/24/23 13:30 01/05/24 10:05 15 UNITS Diagnostic Test (Pha) 1 strip Q6HR 12/24/23 18:00 01/06/24 05:39 1 STRIP Insulin Human Regular Q6HR SC 12/24/23 18:00 01/06/24 01:03 6 UNITS Dextrose 50 ml UD PRN IV 12/24/23 13:30 01/05/24 17:45 50 ML Apixaban 2.5 mg BID PEG 12/26/23 22:00 01/05/24 22:41 2.5 MG Gabapentin 100 mg BID PEG 12/26/23 22:00 01/05/24 22:41 100 MG Levothyroxine Sodium 112 mcg QAM@0600 PEG 12/27/23 06:00 01/06/24 06:49 112 MCG Losartan Potassium 100 mg DAILY PEG 12/28/23 10:00 01/05/24 09:44 100 MG Acetaminophen/ Hydrocodone Bitart 1 tab Q4HP PRN PEG 12/28/23 16:30 01/05/24 09:45 1 TAB Acetaminophen 650 mg Q6HP PRN GT 12/31/23 19:15 01/03/24 18:00 650 MG Metoprolol Tartrate 37.5 mg BID PEG 01/02/24 14:15 01/05/24 22:42 37.5 MG Examination Physical Examination: General: Patient opens eyes spontaneously to voice, Breathing on rooom air sat 93% HEENT: Normocephalic, atraumatic, moist mucous membranes, trach tube on place. Respiratory/pulmonary: Bilateral lung sounds grossly clear, no major crackles or wheezes at this time. Cardiovascular: Regular heart sounds S1 and S2 with no associated murmurs. Abdomen: Abdomen nondistended, there is mild pain to palpation to the epigastric region, no palpable masses. PEG tube on place with no signs in infection at this time. Extremities: There are no peripheral edema at this time. There is increase in motor strength in all 4 extremities and patient is now able to move lower extremities. Peripheral Pulses: 3+ Radial (R). 3+ Radial (L). 3+ Dorsalis pedis (R). 3+ Dorsalis pedis(L) Skin: No rashes or pruritus, there is no sacral edema present at this time. Neurological: Cranial nerves not able to evaluate independently. Patient responds to verbal stimuli and not head answering simple questions. Patient is slightly moving bilateral upper extremities. Patient is actively moving lower extremities. laboratory and microbiology Laboratory Tests 01/06/24 06:07 Test 01/06/24 06:07 Range/Units Serum Glucose 81 74-106 mg/dL Microbiology Date/Time Source Procedure Growth Status 12/21/23 09:42 Trachea Gram Stain - Final Complete 12/21/23 09:42 Respiratory Culture - Final Yeast, not [place] albicans Complete 12/14/23 19:42 Voided Urine Urine Culture - Final Complete 12/09/23 09:28 Blood Blood Culture - Final NO GROWTH AFTER 5 DAYS OF INCUBATION. Complete 12/08/23 19:00 Sputum Gram Stain - Final Complete 12/08/23 19:00 Sputum Respiratory Culture - Final Complete Problem List/Assessment/Plan Problem List/Assessment/Plan Assessment/Plan Neurology Acute metabolic encephalopathy likely in the setting of sepsis versus brain occupying lesions (metastasis/infection/stroke) -patient has a previous MRI at this facility showing no conclusive diagnosis, At [facility] did not got any conclusive diagnosis as well. -failed extubation at [facility] -CT scan of the head performed at this visit show hypodensities in bilateral cerebellum with no acute intracranial abnormalities. -MRI with contrast of the brain should be performed to clarify etiology of brain occupying lesions. Study was hold today due to YULIANA, we will wait for renal function recovery, meanwhile we will try to decrease sedation and assess neurologic response clinically. -Will order MRI of the brain with contrast (cancel it since neurology recommended MRI SPECT tomography of the brain which could not be performed at this facility) Brain lessions on MRI w/o contrast, unknown etiology -we will perform brain MRI with contrast once kidney function recovers. -lab workup performed at [facility] was negative for blastomycosis, tuberculosis, cryptococcosis Polyneuropathy -Continue gabapentin 100mg BID Sedation -OFF sedation Not on vasopressors at this time. Cardiology Acute on chronic diastolic heart failure (HFpEF 55%) -Both echocardiograms TTE YOLANDA were performed showing no vegetations or cardiac valve abn. Ruled out endocarditis -YOLANDA performed on 12/10/2023 showed normal cardiac valves with no vegetations at that time. Primary hypertension -Continue losartan 50mg QD -Continue metoprolol 25mg PO BID Respiratory S/P tracheostomy performed today in the morning (12/13/23) -Patient currently on room air sat 94% -Trach tube was downsized on 01/03/24 from 8.5 to a 6.0 fenestrated cuff trach tube Acute hypoxic respiratory failure likely in the setting of aspiration pneumonia -IV Unasyn was discontinued -on tarach collar as described above -CT of the chest/abdomen and pelvis showed no acute findings in the abdominal pelvics but showed multifocal airspace disease and cardiomegaly -chest x-ray performed today showed stable pulmonary congestion right lower lobe infiltration can not be excluded -Physical therapy working with the patient now placed order for twice a day. -Trach tube was downsized on 01/03/24 from 8.5 to a 6.0 fenestrated cuff trach tube -Will order a swallow evaluation since patient is requesting eating by mouth stating feeling strong enough. -RT working on caping the trach tube during periods of the day Sepsis in the setting of aspiration pneumonia -continue IV antibiotics as described above Infectious disease Sepsis likely due to aspiration pneumonia and UTI -Completed abs treatment UTI UA suggestive of UTI but last urine culture showed no growth -Ordered new U/A came back suggesting UTI -Urine culture came back negative Possible brain abscess/infectious occupying lesions -completed IV Unasyn treatment Endocrinology Type 2 diabetes mellitus, DKA on previous admissions -Continue moderate sliding scale insulin -Continue Lantus 15 units q.a.m. Diabetic polyneuropathy -Patient sedated, monitor Hypothyroidism -Last TSH was 17.87 -today, ordered free T4 and T3 which came back 0.48 and 0.79 respectively -Continue levothyroxine 112mcgQAM -Ordered new FT4 which came back at 0.83 (improving but still low) Gastroenterology Acute transaminitis, resolved -AST 20, ALT 16 -Continue monitoring Cholelithiasis w/o cholecystitis -CT abdomen showed cholelithiasis w/o findings suggestive of cholecystitis Hematology Superficial thrombophlebitis of right cephalic and basilic veins -no need for anticoagulation DVT of the left brachial vein -Continue eliquis 2.5mg BID -Ordered left upper extremity venous Doppler to rule out DVT since the patient is reporting left upper extremity pain. Nephrology YULIANA likely due to VMN -Last creatinine was 0.85 and BUN 13 -Monitor kidney function Nutrition -Continue on glucerna at 40cc/hr Continue physical therapy to twice a day Lines: PICC line on left upper arm placed on 12/09/2023 Goals of care discussed with the patient for > 23min Plan discussed with Dr. Razo Plan discussed with: Patient Dietary Evaluation Review Comments: 1) If GI is accessible consider Glucerna 1.2 @ 55 ml/hr goal rate as tolerated 2) If pt remains NPO >7 days consider TPN to meet at least 75% of estimated needs 3) Advance pt diet when medically feasible to a CCHO 45g/Cardiac diet modified per [employer] recommendations 4) Continue current plan of care Expected Outcomes/Goals: 1) Pt to receive nutrition support within 7 days of NPO status 2) Pt diet to advance 3) F/U in 2-3 days Date of Service: Jan 06, 2024 Billing Provider: FREEDOM RAZO MD Common Visit Codes: 27004-[id number] INP/OBS CARE(HIGH) Secondary Visit Codes: 43565-[id number] CARE PLAN 30 MINUTES DANELLE MENDIETA RESIDENT Jan 06, 2024 07:50 FREEDOM RAZO MD Jan 09, 2024 15:37
[2024-01-07] VITALS (22 sets, daily range): BP systolic 101–199; BP diastolic 49–73; PULSE 71–98; RESP 16–18; TEMP 98.3–100.1; O2SAT 95–100
[2024-01-07] MEDS: InsuLIN REG 1unit/0.01ml Soln (100units/ml) SC SCH ×2 (00:53→05:50)
[2024-01-07] MEDS: ACCU-CHEK COMFORT CURVE STRIP VI SCH (05:20)
[2024-01-07 07:54] LABS: Basophils # (auto) 0.1 10 ^3/uL (0-0.2); Eosinophils # (auto) 0.2 10 ^3/uL (0-0.8); Eosinophils % (auto) 1.3 % (0.0-7.0); Hematocrit 28.8 % (36.0-46.0); Hemoglobin 9.2 g/dL (12.2-16.2); Lymphocytes # (auto) 2.5 10 ^3/uL (0.4-5.4); Lymphocytes % (auto) 19.4 % (10.0-50.0); Mean Corpuscular Hemoglobin 27.3 pg (28.0-32.0); Mean Corpuscular Hgb Conc. 31.9 g/dL (32.0-36.0); Mean Corpuscular Volume 85.6 fL (80.0-100.0); Monocytes # (auto) 0.5 10 ^3/uL (0-1.3); Monocytes % (auto) 3.6 % (0.0-12.0); Neutrophils # (auto) 9.5 10 ^3/uL (1.6-8.6); Neutrophils % (auto) 74.7 % (37.0-80.0); Platelet Count (auto) 444 10^3/uL (140-450); Red Blood Cells 3.37 10^6/uL (4.0-5.20); Red Cell Distribution Width 16.1 % (11.8-14.3); White Blood Cell 12.7 10^3/uL (4.4-10.8)
[2024-01-07 08:13] LABS: Alanine Aminotransferase 10 U/L (7-40); Albumin 3.8 g/dL (3.2-4.8); Alkaline Phosphatase 136 U/L (46-116); Anion Gap 7 (5-15); Aspartate Aminotransferase 12 U/L (13-40); BUN/Creatinine Ratio 15.5 (10.0-20.0); Blood Urea Nitrogen 15 mg/dL (9-23); Calcium 10.1 mg/dL (8.7-10.4); Carbon Dioxide 23 mmol/L (20-31); Chloride 103 mmol/L (98-107); Glucose 264 mg/dL (74-106); Potassium 4.6 mmol/L (3.5-5.1); Sodium 133 mmol/L (136-145)
[2024-01-07 08:14] LABS: Bilirubin, Total 0.3 mg/dL (0.2-1.0); Phosphorus 3.1 mg/dL (2.4-5.1); Total Protein 6.8 g/dL (5.7-8.2)
[2024-01-07 08:36] LABS: Magnesium 1.8 mg/dL (1.6-2.6)
--- NOTE | 2024-01-07 16:22 | DVHPNRES ---
Progress Note Date Seen: Jan 07, 2024 Resident Creating Document: DANELLE MENDIETA RESIDENT Has the PT tested + for MRSA If YES, has PT been informed?: No Medical Necessity Reason Pt with a Central, PICC or Fol: Yes The following are medically ne: PICC Line, Carr Catheter Reason for carr catheter: Strict I&O Subjective Review of Systems This is a 68-year-old female with past medical history of hypertension, diabetes mellitus type 2, hypothyroidism, COPD, obesity, diabetic polyneuropathy, liver cirrhosis, right knee replacement, multiple admissions for DKA. The patient was initially seen at [facility] on 11/16/2023 where he was intubated and transferred to our facility. At our facility he was treated for DKA and was found to have space occupying lesions in the brain (metastasis/infection/stroke) MRI of the head was done with no conclusive findings at that time. CT scan of the abdomen and pelvis at that time showed dilation of common bile duct and GI recommended ERCP/endoscopic ultrasound so patient was transferred on 11/26/2023 to [facility]. ERCP and ultrasound was performed showing no obstruction either malignancy or stone at that time. Neurosurgery at [facility] evaluated MRI results and stated that could be due to infarcts. Neurologist was against lumbar puncture due to increased risk of herniation. patient was extubated on November 28, 2023 and was transferred step-down unit with 2 L of nasal cannula but lately on December 02 patient became shortness of breath tachypneic required reintubation. The patient had sepsis of unknown etiology and they thought it might be related to the brain lesions so patient was started on broad-spectrum IV antibiotics with MRSA coverage. Patient was readmitted back at [facility]. Seen and examined at bedside. Patient is alert and oriented in person, place and time. Speaking sentences, answering all type of questions and working with physical therapy twice a day. Patient passes swallow evaluation and is currently tolerating pureed diet. We still have enteral nutrition going on since possibly pureed diet is still not sufficient to meet all her caloric demands. Once patient is eating much more quantities without complications then we will stop enteral nutrition. We will continue current plan of care and we will try to reduce trach tube size next week. ROS Constitutional: Denies weight loss, fever and chills. HEENT: Denies changes in vision and hearing. Respiratory: Denies shortness of breath and cough Cardiovascular: Denies chest discomfort or palpitations GI: Denies abdominal pain, nausea, vomiting and diarrhea. : Denies dysuria and urinary frequency. Musculoskeletal: Denies myalgias and joint pain Skin: Denies rash and pruritus. Neurological: Denies dizziness, headache, vision or hearing problems Objective vital signs Vital Sign Date Time Temp Pulse Resp B/P (MAP) Pulse Ox O2 Delivery O2 Flow Rate FiO2 01/07/24 12:52 98.4 79 18 138/68 (91) 98 98.4 01/07/24 11:26 Room Air 0.0 01/07/24 11:26 21 Total Intake and Output 01/06/24 01/06/24 01/07/24 15:00 23:00 07:00 Output Total 850 ml 650 ml Balance -850 ml -650 ml medications Current Medications Medications Dose Ordered Sig/Leslie Route Start Time Stop Time Status Last Admin Dose Admin Albuterol 2.5 mg Q4HR PRN NEB 12/08/23 19:30 01/07/24 15:35 2.5 MG Ipratropium [place] 0.5 mg Q4HR NEB 12/08/23 22:00 01/07/24 15:35 0.5 MG Ondansetron HCl 4 mg Q4HP PRN IV 12/08/23 19:30 Pantoprazole Sodium 40 mg DAILY IV 12/09/23 10:00 01/06/24 10:45 40 MG Hydralazine HCl 10 mg Q4HP PRN IV 12/09/23 05:30 01/07/24 00:24 10 MG Sodium Chloride 10 ml QSHIFT@ IV 12/09/23 22:00 01/06/24 22:25 10 ML Metoclopramide HCl 5 mg Q6HPRN PRN IV 12/13/23 21:45 Lorazepam 1 mg Q4H PRN IV 12/17/23 00:15 01/06/24 22:23 1 MG Acetylcysteine 200 mg Q8HR NEB 12/22/23 22:00 01/07/24 15:35 200 MG Enteral Nutritional Formula 1,000 ml 40ML/HR GT 12/24/23 09:15 01/05/24 14:04 1,000 ML Insulin Glargine 15 units DAILY@1000 SC 12/24/23 13:30 01/07/24 11:38 15 UNITS Apixaban 2.5 mg BID PEG 12/26/23 22:00 01/07/24 10:12 2.5 MG Gabapentin 100 mg BID PEG 12/26/23 22:00 01/07/24 10:12 100 MG Levothyroxine Sodium 112 mcg QAM@0600 PEG 12/27/23 06:00 01/07/24 05:35 112 MCG Losartan Potassium 100 mg DAILY PEG 12/28/23 10:00 01/06/24 10:44 100 MG Acetaminophen 650 mg Q6HP PRN GT 12/31/23 19:15 01/07/24 10:12 650 MG Metoprolol Tartrate 37.5 mg BID PEG 01/02/24 14:15 01/06/24 22:23 37.5 MG Diagnostic Test (Pha) 1 strip IQ4HR 01/07/24 04:00 01/07/24 11:38 1 STRIP Insulin Human Regular IQ4HR SC 01/07/24 04:00 01/07/24 11:39 15 UNITS Dextrose 50 ml UD PRN IV 01/07/24 02:00 Examination Physical Examination: General: Patient opens eyes spontaneously to voice, Breathing on room air sat 94% HEENT: Normocephalic, atraumatic, moist mucous membranes, trach tube on place. Respiratory/pulmonary: Bilateral lung sounds grossly clear, no major crackles or wheezes at this time. Cardiovascular: Regular heart sounds S1 and S2 with no associated murmurs. Abdomen: Abdomen nondistended, there is mild pain to palpation to the epigastric region, no palpable masses. PEG tube on place with no signs in infection at this time. Extremities: There are no peripheral edema at this time. There is increase in motor strength in all 4 extremities and patient is now able to move lower extremities. Peripheral Pulses: 3+ Radial (R). 3+ Radial (L). 3+ Dorsalis pedis (R). 3+ Dorsalis pedis(L) Skin: No rashes or pruritus, there is no sacral edema present at this time. Neurological: Cranial nerves not able to evaluate independently. Patient responds to verbal stimuli and not head answering simple questions. Patient is slightly moving bilateral upper extremities. Patient is actively moving lower extremities. laboratory and microbiology Laboratory Tests 01/07/24 06:16 Test 01/07/24 06:16 Range/Units Serum Glucose 264 H 74-106 mg/dL Microbiology Date/Time Source Procedure Growth Status 12/21/23 09:42 Trachea Gram Stain - Final Complete 12/21/23 09:42 Respiratory Culture - Final Yeast, not [place] albicans Complete 12/14/23 19:42 Voided Urine Urine Culture - Final Complete 12/09/23 09:28 Blood Blood Culture - Final NO GROWTH AFTER 5 DAYS OF INCUBATION. Complete 12/08/23 19:00 Sputum Gram Stain - Final Complete 12/08/23 19:00 Sputum Respiratory Culture - Final Complete Problem List/Assessment/Plan Problem List/Assessment/Plan Assessment/Plan Neurology Acute metabolic encephalopathy likely in the setting of sepsis versus brain occupying lesions (metastasis/infection/stroke) -patient has a previous MRI at this facility showing no conclusive diagnosis, At [facility] did not got any conclusive diagnosis as well. -failed extubation at [facility] -CT scan of the head performed at this visit show hypodensities in bilateral cerebellum with no acute intracranial abnormalities. -MRI with contrast of the brain should be performed to clarify etiology of brain occupying lesions. Study was hold today due to YULIANA, we will wait for renal function recovery, meanwhile we will try to decrease sedation and assess neurologic response clinically. -Will order MRI of the brain with contrast (cancel it since neurology recommended MRI SPECT tomography of the brain which could not be performed at this facility) Brain lessions on MRI w/o contrast, unknown etiology -we will perform brain MRI with contrast once kidney function recovers. -lab workup performed at [facility] was negative for blastomycosis, tuberculosis, cryptococcosis Polyneuropathy -Continue gabapentin 100mg BID Sedation -OFF sedation Not on vasopressors at this time. Cardiology Acute on chronic diastolic heart failure (HFpEF 55%) -Both echocardiograms TTE YOLANDA were performed showing no vegetations or cardiac valve abn. Ruled out endocarditis -YOLANDA performed on 12/10/2023 showed normal cardiac valves with no vegetations at that time. Primary hypertension -Continue losartan 50mg QD -Continue metoprolol 25mg PO BID Respiratory S/P tracheostomy performed today in the morning (12/13/23) -Patient currently on room air sat 94% -Trach tube was downsized on 01/03/24 from 8.5 to a 6.0 fenestrated cuff trach tube Acute hypoxic respiratory failure likely in the setting of aspiration pneumonia -IV Unasyn was discontinued -on tarach collar as described above -CT of the chest/abdomen and pelvis showed no acute findings in the abdominal pelvics but showed multifocal airspace disease and cardiomegaly -chest x-ray performed today showed stable pulmonary congestion right lower lobe infiltration can not be excluded -Physical therapy working with the patient now placed order for twice a day. -Trach tube was downsized on 01/03/24 from 8.5 to a 6.0 fenestrated cuff trach tube -Will order a swallow evaluation since patient is requesting eating by mouth stating feeling strong enough. -RT working on caping the trach tube during periods of the day -patient passes swallow evaluation and is currently tolerating pureed diet Sepsis in the setting of aspiration pneumonia -continue IV antibiotics as described above Infectious disease Sepsis likely due to aspiration pneumonia and UTI -Completed abs treatment UTI UA suggestive of UTI but last urine culture showed no growth -Ordered new U/A came back suggesting UTI -Urine culture came back negative Possible brain abscess/infectious occupying lesions -completed IV Unasyn treatment Endocrinology Type 2 diabetes mellitus, DKA on previous admissions -Continue moderate sliding scale insulin -Continue Lantus 15 units q.a.m. Diabetic polyneuropathy -Patient sedated, monitor Hypothyroidism -Last TSH was 17.87 -today, ordered free T4 and T3 which came back 0.48 and 0.79 respectively -Continue levothyroxine 112mcgQAM -Ordered new FT4 which came back at 0.83 (improving but still low) Gastroenterology Acute transaminitis, resolved -AST 20, ALT 16 -Continue monitoring Cholelithiasis w/o cholecystitis -CT abdomen showed cholelithiasis w/o findings suggestive of cholecystitis Hematology Superficial thrombophlebitis of right cephalic and basilic veins -no need for anticoagulation DVT of the left brachial vein -Continue eliquis 2.5mg BID -Ordered left upper extremity venous Doppler to rule out DVT since the patient is reporting left upper extremity pain. Nephrology YULIANA likely due to VMN -Last creatinine was 0.85 and BUN 13 -Monitor kidney function Nutrition -Continue on glucerna at 40cc/hr -Start puree diet Continue physical therapy to twice a day Lines: PICC line on left upper arm placed on 12/09/2023 Goals of care discussed with the patient for > 23min Plan discussed with Dr. Cobb Plan discussed with: Patient Dietary Evaluation Review Comments: 1) If GI is accessible consider Glucerna 1.2 @ 55 ml/hr goal rate as tolerated 2) If pt remains NPO >7 days consider TPN to meet at least 75% of estimated needs 3) Advance pt diet when medically feasible to a CCHO 45g/Cardiac diet modified per OUTSIDE INSTALLER APPRENTICE recommendations 4) Continue current plan of care Expected Outcomes/Goals: 1) Pt to receive nutrition support within 7 days of NPO status 2) Pt diet to advance 3) F/U in 2-3 days Date of Service: Jan 07, 2024 Billing Provider: REFUGIO COBB MD Common Visit Codes: [id number] INP/OBS CARE(HIGH) DANELLE MENDIETA RESIDENT Jan 07, 2024 16:21 REFUGIO COBB MD Jan 09, 2024 22:45
--- NOTE | 2024-01-07 18:44 | DVHPN2 ---
Consult Progress Note Date Seen: Jan 06, 2024 Subjective Patient reports: No new complaints, Feels better (no acute signs of infection) Objective vital signs Vital Sign Date Time Temp Pulse Resp B/P (MAP) Pulse Ox O2 Delivery O2 Flow Rate FiO2 01/07/24 18:30 76 18 99 01/07/24 16:55 98.4 132/73 (92) 98.4 01/07/24 15:35 Room Air* 0 21 Total Intake and Output 01/06/24 01/06/24 01/07/24 15:00 23:00 07:00 Output Total 850 ml 650 ml Balance -850 ml -650 ml medications Current Medications Medications Dose Ordered Sig/Leslie Route Start Time Stop Time Status Last Admin Dose Admin Albuterol 2.5 mg Q4HR PRN NEB 12/08/23 19:30 01/07/24 15:35 2.5 MG Ipratropium [place] 0.5 mg Q4HR NEB 12/08/23 22:00 01/07/24 18:27 0.5 MG Ondansetron HCl 4 mg Q4HP PRN IV 12/08/23 19:30 Pantoprazole Sodium 40 mg DAILY IV 12/09/23 10:00 01/06/24 10:45 40 MG Hydralazine HCl 10 mg Q4HP PRN IV 12/09/23 05:30 01/07/24 00:24 10 MG Sodium Chloride 10 ml QSHIFT@ IV 12/09/23 22:00 01/06/24 22:25 10 ML Metoclopramide HCl 5 mg Q6HPRN PRN IV 12/13/23 21:45 Lorazepam 1 mg Q4H PRN IV 12/17/23 00:15 01/06/24 22:23 1 MG Acetylcysteine 200 mg Q8HR NEB 12/22/23 22:00 01/07/24 15:35 200 MG Enteral Nutritional Formula 1,000 ml 40ML/HR GT 12/24/23 09:15 01/05/24 14:04 1,000 ML Insulin Glargine 15 units DAILY@1000 SC 12/24/23 13:30 01/07/24 11:38 15 UNITS Apixaban 2.5 mg BID PEG 12/26/23 22:00 01/07/24 10:12 2.5 MG Gabapentin 100 mg BID PEG 12/26/23 22:00 01/07/24 10:12 100 MG Levothyroxine Sodium 112 mcg QAM@0600 PEG 12/27/23 06:00 01/07/24 05:35 112 MCG Losartan Potassium 100 mg DAILY PEG 12/28/23 10:00 01/06/24 10:44 100 MG Acetaminophen 650 mg Q6HP PRN GT 12/31/23 19:15 01/07/24 17:34 650 MG Metoprolol Tartrate 37.5 mg BID PEG 01/02/24 14:15 01/06/24 22:23 37.5 MG Diagnostic Test (Pha) 1 strip IQ4HR 01/07/24 04:00 01/07/24 16:40 1 STRIP Insulin Human Regular IQ4HR SC 01/07/24 04:00 01/07/24 16:41 9 UNITS Dextrose 50 ml UD PRN IV 01/07/24 02:00 PHYSICAL EXAM: - GENERAL: Alert and oriented x 3. No acute distress. Well-nourished. - EYES: EOMI. Anicteric. - HENT: Moist mucous membranes. No scleral icterus. No cervical lymphadenopathy. - LUNGS: Clear to auscultation bilaterally. No accessory muscle use. - CARDIOVASCULAR: Regular rate and rhythm. No murmur. No JVD. - ABDOMEN: Soft, non-tender and non-distended. No palpable masses. volume overload - EXTREMITIES: No edema. Non-tender.?SKIN: No rashes or lesions. - NEUROLOGIC: No focal neurological deficits. CN II-XII grossly intact, but not individually tested. - PSYCHIATRIC: Cooperative. Appropriate mood and affect. laboratory and microbiology Laboratory Tests 01/07/24 06:16 Test 01/07/24 06:16 Range/Units Serum Glucose 264 H 74-106 mg/dL Problem List/Assessment/Plan Problem List/Assessment/Plan Assessment/Plan Problems(with codes): (1) Hospital-acquired pneumonia (2) COPD (chronic obstructive pulmonary disease) (3) DKA (diabetic ketoacidosis) (4) HTN (hypertension) (5) Closed right hip fracture Plan/Recommendation ASSESSMENT AND PLAN: ID Problem List: - Aspiration pneumonia - Acute respiratory failure - Diabetic Ketoacidosis (DKA) - Sepsis due to UTI vs pneumonia - Acute Kidney Injury (YULIANA) - Hypernatremia - Transaminitis - Fatty liver - Uncontrolled diabetes (A1C of 11.7) - Hypothyroidism - Hypertension - COPD without exacerbation - Chronic kidney disease (CKD) Assessment: This is a 68-year-old female with a past medical history of diabetes, hypertension, recurrent DKA, hypothyroidism, obesity, COPD, neuropathies, mechanical falls, liver cirrhosis, and multiple joint replacements. The patient presented to the ED with acute loss of consciousness on 11/15/2023, subsequently diagnosed with DKA and an upper GI bleed. While at [facility], a CT and MRI of the head showed concerning lesions for metastasis vs. infectious process and gallbladder issues. Due to renal failure, these images were performed without contrast. An ERCP at [facility] showed no gallstones or common bile duct obstruction. Currently, the patient is reintubated on minimal sedation and receiving broad-spectrum antibiotics for presumed meningitis and other infections. 12/09: Patient has had a repeat abdomen, pelvis, chest Ct with contrast which shows no acute findings in the abdomen and pelvis. multifocal airspace in the lungs was shown. 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 12/12: sp trach 12/13: off sedation 12/19: trach 7l,elevated temps 12/23: Sputal culture is showing normal oral pharyngeal jordan, chest X-ray shows clear lungs, yesterdays X-rays show interstitial edema otherwise clear lungs. Recomend patient continue off antibiotics and just do aspiriations. If fever starts , cosider antibiotics for aspiration pnumonia , suspect Pneumonitis 12/26: Peg tube feeding were stopped , soft abdomen and having bowel movements. Chest X-ray shows mild pulmonary congestion. Otherwise patient is stable with no fevers 12/27: Peg tube is dry and intact. Restarted on [place]. Continues to work on physical therapy 12/29: now on 6 liters of drip , improving , recommend incentive spirometry, continue working with physical therapists and encouraged out of bed 01/02: Chest X-ray shows no significant changes, white count dropped to 1.8 and hemoglobin is 9.7 Plan: - continue off antibiotics unless fever starts up - sp 3 week vancomycin and ceftriaxone course, will monitor patient off all antibiotics - aspiration precautions - Blood cultures monitoring. - Monitor respiratory status and adjust ventilator settings as necessary. - Monitor and manage blood glucose levels. - Supportive care as needed. Plan discussed with: Patient Dietary Evaluation Review Comments: 1) If GI is accessible consider Glucerna 1.2 @ 55 ml/hr goal rate as tolerated 2) If pt remains NPO >7 days consider TPN to meet at least 75% of estimated needs 3) Advance pt diet when medically feasible to a CCHO 45g/Cardiac diet modified per PRESCHOOL PROGRAM DIRECTOR recommendations 4) Continue current plan of care Expected Outcomes/Goals: 1) Pt to receive nutrition support within 7 days of NPO status 2) Pt diet to advance 3) F/U in 2-3 days NITHIN ANAYA MD Jan 07, 2024 18:44
--- NOTE | 2024-01-07 19:10 | DVHPN2 ---
Consult Progress Note Date Seen: Jan 07, 2024 Subjective Patient reports: Feels better (doing well on pure diet, plan to downsizing ET tube next week) Objective vital signs Vital Sign Date Time Temp Pulse Resp B/P (MAP) Pulse Ox O2 Delivery O2 Flow Rate FiO2 01/07/24 18:30 76 18 99 01/07/24 16:55 98.4 132/73 (92) 98.4 01/07/24 15:35 Room Air* 0 21 Total Intake and Output 01/06/24 01/06/24 01/07/24 15:00 23:00 07:00 Output Total 850 ml 650 ml Balance -850 ml -650 ml medications Current Medications Medications Dose Ordered Sig/Leslie Route Start Time Stop Time Status Last Admin Dose Admin Albuterol 2.5 mg Q4HR PRN NEB 12/08/23 19:30 01/07/24 15:35 2.5 MG Ipratropium [place] 0.5 mg Q4HR NEB 12/08/23 22:00 01/07/24 18:27 0.5 MG Ondansetron HCl 4 mg Q4HP PRN IV 12/08/23 19:30 Pantoprazole Sodium 40 mg DAILY IV 12/09/23 10:00 01/06/24 10:45 40 MG Hydralazine HCl 10 mg Q4HP PRN IV 12/09/23 05:30 01/07/24 00:24 10 MG Sodium Chloride 10 ml QSHIFT@10,22 IV 12/09/23 22:00 01/06/24 22:25 10 ML Metoclopramide HCl 5 mg Q6HPRN PRN IV 12/13/23 21:45 Lorazepam 1 mg Q4H PRN IV 12/17/23 00:15 01/06/24 22:23 1 MG Acetylcysteine 200 mg Q8HR NEB 12/22/23 22:00 01/07/24 15:35 200 MG Enteral Nutritional Formula 1,000 ml 40ML/HR GT 12/24/23 09:15 01/05/24 14:04 1,000 ML Insulin Glargine 15 units DAILY@1000 SC 12/24/23 13:30 01/07/24 11:38 15 UNITS Apixaban 2.5 mg BID PEG 12/26/23 22:00 01/07/24 10:12 2.5 MG Gabapentin 100 mg BID PEG 12/26/23 22:00 01/07/24 10:12 100 MG Levothyroxine Sodium 112 mcg QAM@0600 PEG 12/27/23 06:00 01/07/24 05:35 112 MCG Losartan Potassium 100 mg DAILY PEG 12/28/23 10:00 01/06/24 10:44 100 MG Acetaminophen 650 mg Q6HP PRN GT 12/31/23 19:15 01/07/24 17:34 650 MG Metoprolol Tartrate 37.5 mg BID PEG 01/02/24 14:15 01/06/24 22:23 37.5 MG Diagnostic Test (Pha) 1 strip IQ4HR 01/07/24 04:00 01/07/24 16:40 1 STRIP Insulin Human Regular IQ4HR SC 01/07/24 04:00 01/07/24 16:41 9 UNITS Dextrose 50 ml UD PRN IV 01/07/24 02:00 PHYSICAL EXAM: - GENERAL: Alert and oriented x 3. No acute distress. Well-nourished. - EYES: EOMI. Anicteric. - HENT: Moist mucous membranes. No scleral icterus. No cervical lymphadenopathy. - LUNGS: Clear to auscultation bilaterally. No accessory muscle use. - CARDIOVASCULAR: Regular rate and rhythm. No murmur. No JVD. - ABDOMEN: Soft, non-tender and non-distended. No palpable masses. volume overload - EXTREMITIES: No edema. Non-tender.?SKIN: No rashes or lesions. - NEUROLOGIC: No focal neurological deficits. CN II-XII grossly intact, but not individually tested. - PSYCHIATRIC: Cooperative. Appropriate mood and affect. laboratory and microbiology Laboratory Tests 01/07/24 06:16 Test 01/07/24 06:16 Range/Units Serum Glucose 264 H 74-106 mg/dL Problem List/Assessment/Plan Problems(with codes): (1) COPD (chronic obstructive pulmonary disease) (2) HTN (hypertension) (3) DKA (diabetic ketoacidosis) (4) Hospital-acquired pneumonia (5) Closed right hip fracture Problem List/Assessment/Plan Assessment/Plan Problems(with codes): (1) Hospital-acquired pneumonia (2) COPD (chronic obstructive pulmonary disease) (3) DKA (diabetic ketoacidosis) (4) HTN (hypertension) (5) Closed right hip fracture Plan/Recommendation ASSESSMENT AND PLAN: ID Problem List: - Aspiration pneumonia - Acute respiratory failure - Diabetic Ketoacidosis (DKA) - Sepsis due to UTI vs pneumonia - Acute Kidney Injury (YULIANA) - Hypernatremia - Transaminitis - Fatty liver - Uncontrolled diabetes (A1C of 11.7) - Hypothyroidism - Hypertension - COPD without exacerbation - Chronic kidney disease (CKD) Assessment: This is a 68-year-old female with a past medical history of diabetes, hypertension, recurrent DKA, hypothyroidism, obesity, COPD, neuropathies, mechanical falls, liver cirrhosis, and multiple joint replacements. The patient presented to the ED with acute loss of consciousness on 11/15/2023, subsequently diagnosed with DKA and an upper GI bleed. While at [facility], a CT and MRI of the head showed concerning lesions for metastasis vs. infectious process and gallbladder issues. Due to renal failure, these images were performed without contrast. An ERCP at [facility] showed no gallstones or common bile duct obstruction. Currently, the patient is reintubated on minimal sedation and receiving broad-spectrum antibiotics for presumed meningitis and other infections. 12/09: Patient has had a repeat abdomen, pelvis, chest Ct with contrast which shows no acute findings in the abdomen and pelvis. multifocal airspace in the lungs was shown. 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 12/12: sp trach 12/13: off sedation 12/19: trach 7l,elevated temps /: Sputal culture is showing normal oral pharyngeal jordan, chest X-ray shows clear lungs, yesterdays X-rays show interstitial edema otherwise clear lungs. Recomend patient continue off antibiotics and just do aspiriations. If fever starts , cosider antibiotics for aspiration pnumonia , suspect Pneumonitis 12/26: Peg tube feeding were stopped , soft abdomen and having bowel movements. Chest X-ray shows mild pulmonary congestion. Otherwise patient is stable with no fevers 12/27: Peg tube is dry and intact. Restarted on [place]. Continues to work on physical therapy 12/29: now on 6 liters of drip , improving , recommend incentive spirometry, continue working with physical therapists and encouraged out of bed 01/02: Chest X-ray shows no significant changes, white count dropped to 1.8 and hemoglobin is 9.7 01/06: white count is up to 12.7 , potentially relateed to new diet Plan: -if hypoxia results repeat chest X-ray -check sputum culture - continue off antibiotics unless fever starts up - sp 3 week vancomycin and ceftriaxone course, will monitor patient off all antibiotics - aspiration precautions - Blood cultures monitoring. - Monitor respiratory status and adjust ventilator settings as necessary. - Monitor and manage blood glucose levels. - Supportive care as needed. Plan discussed with: Other Dietary Evaluation Review Comments: 1) If GI is accessible consider Glucerna 1.2 @ 55 ml/hr goal rate as tolerated 2) If pt remains NPO >7 days consider TPN to meet at least 75% of estimated needs 3) Advance pt diet when medically feasible to a CCHO 45g/Cardiac diet modified per [employer] recommendations 4) Continue current plan of care Expected Outcomes/Goals: 1) Pt to receive nutrition support within 7 days of NPO status 2) Pt diet to advance 3) F/U in 2-3 days NITHIN ANAYA MD Jan 07, 2024 19:10
[2024-01-08] VITALS (12 sets, daily range): BP systolic 134–180; BP diastolic 58–82; PULSE 69–85; RESP 16–20; TEMP 97.9–99.3; O2SAT 96–100
[2024-01-08] MEDS: DEXTROSE (50%) 50ML SYRG IV PRN (01:27)
[2024-01-08 10:11] LABS: Alanine Aminotransferase 332 U/L (7-40); Albumin 3.9 g/dL (3.2-4.8); Anion Gap 9 (5-15); BUN/Creatinine Ratio 17.3 (10.0-20.0); Blood Urea Nitrogen 14 mg/dL (9-23); Carbon Dioxide 22 mmol/L (20-31); Chloride 100 mmol/L (98-107); Glucose 325 mg/dL (74-106); Magnesium 1.7 mg/dL (1.6-2.6); Potassium 4.7 mmol/L (3.5-5.1); Sodium 131 mmol/L (136-145)
[2024-01-08 10:12] LABS: Bilirubin, Total 1.1 mg/dL (0.2-1.0); Phosphorus 3.4 mg/dL (2.4-5.1)
[2024-01-08 10:18] LABS: Basophils # (auto) 0 10 ^3/uL (0-0.2); Basophils % (auto) 0.5 % (0.0-2.0); Eosinophils # (auto) 0.2 10 ^3/uL (0-0.8); Eosinophils % (auto) 3.5 % (0.0-7.0); Hematocrit 31.6 % (36.0-46.0); Hemoglobin 10.3 g/dL (12.2-16.2); Lymphocytes # (auto) 1.9 10 ^3/uL (0.4-5.4); Lymphocytes % (auto) 29.4 % (10.0-50.0); Mean Corpuscular Hemoglobin 28.3 pg (28.0-32.0); Mean Corpuscular Hgb Conc. 32.8 g/dL (32.0-36.0); Mean Corpuscular Volume 86.2 fL (80.0-100.0); Monocytes # (auto) 0.3 10 ^3/uL (0-1.3); Monocytes % (auto) 4.7 % (0.0-12.0); Neutrophils # (auto) 3.9 10 ^3/uL (1.6-8.6); Neutrophils % (auto) 61.9 % (37.0-80.0); Nucleated Red Blood Cells % 0.1 %; Platelet Count (auto) 464 10^3/uL (140-450); Red Blood Cells 3.66 10^6/uL (4.0-5.20); Red Cell Distribution Width 16.5 % (11.8-14.3); White Blood Cell 6.4 10^3/uL (4.4-10.8)
[2024-01-08 10:20] LABS: Alkaline Phosphatase 1061 U/L (46-116)
[2024-01-08 10:23] LABS: Aspartate Aminotransferase 995 U/L (13-40)
[2024-01-08] MEDS: LORazepam 2MG/ML-1ML VIAL IV PRN (15:34)
--- NOTE | 2024-01-08 16:25 | DVH ---
INDICATION: Pain. TECHNIQUE: Multiple real-time sonographic images of the abdomen were obtained. COMPARISON: None FINDINGS: There is increased echogenicity to the hepatic parenchyma suggesting steatosis.. The liver measures 16.87 cm. No intrahepatic biliary ductal dilatation is noted. The gallbladder wall measures 0.63 cm and is . thickened. Gallstones are noted in the gallbladder. The common duct measures 07.8 cm and is . dilated. There is pericholecystic fluid. Negative ult rasound Mclain's sign is elicited. The right kidney measures 10.67 cm. No hydronephrosis. The left kidney measures 10.76 cm. No hydron ephrosis. The spleen measures 10.38 cm, within normal limits. The echogenicity is within normal limits. The pancreas is not well visualized due to obscuration from bowel gas. IVC appears normal. The proximal aorta measures 1.74 cm. IMPRESSION: 1. Cholelithiasis with thickened gallbladder wall and pericholecystic fluid. The common bile duct is also dilated. Although the ultrasound Mclain's sign is negative ultrasound findings suggest acute cho lecystitis. 2. 16.87 cm liver with findings suggesting steatosis.
[2024-01-08 16:43] LABS: Alanine Aminotransferase 446 U/L (7-40); Albumin 3.9 g/dL (3.2-4.8); Anion Gap 8 (5-15); Aspartate Aminotransferase > 1000 U/L (13-40); BUN/Creatinine Ratio 12.5 (10.0-20.0); Bilirubin, Total 0.7 mg/dL (0.2-1.0); Blood Urea Nitrogen 10 mg/dL (9-23); Calcium 10.2 mg/dL (8.7-10.4); Carbon Dioxide 19 mmol/L (20-31); Chloride 103 mmol/L (98-107); Glucose 193 mg/dL (74-106); Potassium 4.6 mmol/L (3.5-5.1); Sodium 130 mmol/L (136-145); Total Protein 7.1 g/dL (5.7-8.2)
[2024-01-08 16:51] LABS: Alkaline Phosphatase 1262 U/L (46-116)
[2024-01-08] MEDS ORDERED: LOPERAMIDE 1 mg/7.5ml ORAL soln GT PRN (17:15)
--- NOTE | 2024-01-08 18:07 | DVHPN2 ---
Subjective c/o diarrhea c/o pain the trach site No abdominal pain Reviewed: Care Plan, H&P, Labs, Medications, Previous Orders, Radiology, Other (Consultants) Changes from previous H/P or p: Changes Objective Vitals Vital Signs Date Time Temp Pulse Resp B/P (MAP) Pulse Ox O2 Delivery O2 Flow Rate FiO2 01/08/24 12:10 177/78 01/08/24 10:03 69 01/08/24 08:00 18 Trach Collar 8 N/A 01/08/24 06:18 97 01/08/24 05:00 97.9 97.9 Intake/Output Intake and Output 01/08/24 07:00 Intake Total 1160 ml Output Total 1550 ml Balance -390 ml Intake Oral 800 ml Tube Feeding 360 ml Output Urine Total 1550 ml # Bowel Movements 4 General Appearance: Alert Lungs: Clear to auscultation Cardiovascular: Regular rate, Normal S1, Normal S2 Abdomen: Normal bowel sounds, Soft, No tenderness Extremities: No edema Medications Current Medications Medications Dose Ordered Sig/Leslie Route Start Time Stop Time Status Last Admin Dose Admin Sodium Chloride 10 ml QSHIFT@ IV 12/09/23 22:00 01/08/24 09:03 10 ML Metoclopramide HCl 5 mg Q6HPRN PRN IV 12/13/23 21:45 Acetylcysteine 200 mg Q8HR NEB 12/22/23 22:00 01/07/24 21:50 200 MG Enteral Nutritional Formula 1,000 ml 40ML/HR GT 12/24/23 09:15 01/05/24 14:04 1,000 ML Insulin Glargine 15 units DAILY@1000 SC 12/24/23 13:30 01/08/24 09:26 15 UNITS Apixaban 2.5 mg BID PEG 12/26/23 22:00 01/08/24 09:01 2.5 MG Gabapentin 100 mg BID PEG 12/26/23 22:00 01/08/24 12:10 100 MG Levothyroxine Sodium 112 mcg QAM@0600 PEG 12/27/23 06:00 01/08/24 06:37 112 MCG Losartan Potassium 100 mg DAILY PEG 12/28/23 10:00 01/08/24 12:10 100 MG Metoprolol Tartrate 37.5 mg BID PEG 01/02/24 14:15 01/08/24 09:03 37.5 MG Diagnostic Test (Pha) 1 strip IQ4HR 01/07/24 04:00 01/08/24 16:00 1 STRIP Insulin Human Regular IQ4HR SC 01/07/24 04:00 01/08/24 12:14 15 UNITS Dextrose 50 ml UD PRN IV 01/07/24 02:00 01/08/24 01:27 50 ML Lorazepam 0.5 mg Q4H PRN IV 01/08/24 15:00 01/08/24 15:34 0.5 MG Albuterol 2.5 mg Q8HR NEB 01/08/24 22:00 Ipratropium [place] 0.5 mg Q8HR NEB 01/08/24 22:00 Laboratory Results Laboratory Tests 01/08/24 09:29 01/08/24 16:15 Chemistry Test 01/08/24 09:29 01/08/24 16:15 Albumin 3.9 g/dL (3.2-4.8) 3.9 g/dL (3.2-4.8) Calcium Level 10.0 mg/dL (8.7-10.4) 10.2 mg/dL (8.7-10.4) Magnesium Level 1.7 mg/dL (1.6-2.6) Phosphorus Level 3.4 mg/dL (2.4-5.1) Total Protein 7.0 g/dL (5.7-8.2) 7.1 g/dL (5.7-8.2) LFT Test 01/08/24 09:29 01/08/24 16:15 Alanine Aminotransferase (ALT) 332 U/L (7-40) H 446 U/L (7-40) H Alkaline Phosphatase 1061 U/L (46-116) H 1262 U/L (46-116) H Aspartate Amino Transferase (AST) 995 U/L (13-40) H > 1000 U/L (13-40) H Total Bilirubin 1.1 mg/dL (0.2-1.0) H 0.7 mg/dL (0.2-1.0) Urinalysis Test 12/08/23 19:00 12/11/23 22:02 12/14/23 19:42 12/20/23 11:30 Urine WBC Clumps Present /hpf (None Seen) Urine Creatinine 21.88 mg/dL (30.0-125.0) L Urine Protein/Creatinine Ratio 2.01 Urine Sodium 40 mmol/L (40-220) Urine Total Protein 43.9 mg/dL (0.0-11.9) H Urine Color Light-yellow (Yellow) Urine Clarity Clear (Clear) Urine pH 6.0 (5.0-9.0) Urine Specific [place] 1.009 (1.001-1.035) Urine Protein 1+ (Negative) H Urine Ketones Negative (Negative) Urine Blood 2+ /uL (Negative) H Urine Nitrite Negative (Negative) Urine Bilirubin Negative (Negative) Urine Urobilinogen Normal mg/dL (Negative) Urine Leukocyte Esterase 2+ /uL (Negative) Urine RBC 6 /hpf (0 - 4) Urine WBC 68 /hpf (0 - 5) Urine Squamous Epithelial Cells None seen /hpf (<5) Urine Bacteria Few /hpf (None Seen) H Urine Glucose Normal mg/dL (Normal) Urine Osmolality 316 mOsm/kg Microbiology Microbiology Date/Time Source Procedure Growth Status 12/21/23 09:42 Trachea Gram Stain - Final Complete 12/21/23 09:42 Respiratory Culture - Final Yeast, not [place] albicans Complete 12/14/23 19:42 Voided Urine Urine Culture - Final Complete 12/09/23 09:28 Blood Blood Culture - Final NO GROWTH AFTER 5 DAYS OF INCUBATION. 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 Acute hypoxic respiratory failure, resolved Recent DKA , resolved Metabolic encephalopathy due to sepsis Sepsis Aspiration pneumonia COPD Acute on chronic diastolic heart failure, ejection fraction 55% No endocarditis Hypertension Sepsis with septic shock Septic shock due to UTI and pneumonia , resolved Uncontrolled diabetes, A1c 11.7 Hypothyroidism UTI Hypernatremia Fatty liver DVT of cephalic vein Anemia status post blood transfusion Acute kidney injury due to vasomotor nephropathy 01/08/24: Diarrhea Elevated liver function tests Cholelithiasis Ruled out acute cholecystitis Plan: Diarrhea, elevated LFTs Repeat LFTs shows severely elevated enzymes Stop acetaminophen Check acetaminophen level Check hepatitis panel Check abdominal US: It showed cholelithiasis with thickened gallbladder wall and pericholecystic fluid suggesting acute cholecystitis Consult GI Stopped the Glucerna for now and keep NPO for now IV fluids Plan discussed with: Patient My Orders Orders - REFUGIO VALENTE MD Procedure Category Date Status Time Lorazepam 2mg/Ml Inj PHA 01/08/24 In Process (Ativan Inj) 15:00 Abdomen Complete US 01/08/24 Resulted Sonogram 14:53 Comprehensive LAB 01/09/24 Verified Metabolic Panel 04:00 Albuterol Medneb PHA 01/08/24 In Process (Ventolin Medneb) 22:00 Ipratropium Medneb PHA 01/08/24 In Process (Atrovent Medneb) 22:00 Loperamide Oral PHA 01/08/24 Logged Solution (Imodium 17:15 Date of Service: Jan 08, 2024 Billing Provider: REFUGIO VALENTE MD Common Visit Codes: [id number] INP/OBS CARE(HIGH) REFUGIO VALENTE MD Jan 08, 2024 18:07
--- NOTE | 2024-01-08 21:24 | DVHPN2 ---
Progress Note - Dictate Date Seen: Jan 08, 2024 Has the PT tested + for MRSA If YES, has PT been informed?: No Medical Necessity Reason Pt with a Central, PICC or Fol: Yes The following are medically ne: PICC Line, Carr Catheter Reason for carr catheter: Strict I&O Subjective Mr. Sanderson is a 68 years old female with a history of hypertension, diabetes, hypothyroidism, COPD, obesity, diabetic polyneuropathy, arthritis, liver cirrhosis, she was transferred back from the [facility] on 12/08/2023 after ERCP. I have seen examined the patient, I have talked to her nurse, she is awake, able to talk, but surprise she was only oriented to person place, she does not look confused [facility] Neurosurgery consultation: The lesions likely represents infarct, recommend Re attempting MRI spectrography for further evaluation Neuro consultation: Lumbar puncture was not recommended concerning possibility of herniation EEG, 11/28/2023: No seizure/nonconvulsive status epileptics (I did not see report) TTE, 11/29/23: EF: 70-75% (I did not see report) MRI brain (no report): signal abnormality in bilateral cerebellum and right occipital lobe, punctate foci in right parietal lobe and central semiovale- unable to differentiate subacute ischemia 2/2 MR effects versus infection versus metastasis. Recommend contrast enhanced MRI MRI, 12/05/23: No evidence of demyelinating disease (I did not see report) MRI orbital, face, neck ww 12/05/2023, comparison: MR brain 11/28/2023: No evidence of mucormycosis infection. Multiple irregularly enhancing cerebellar and right occipital lesions were better evaluated on recent brain MRI MRI C-spine, 12/05/2023: No evidence of demyelinating disease in the cervical spine. Moderate degenerative changes. Grade 1 anterolisthesis of C7 on T1 MRI lumbar spine wwo, 12/05/2023: No evidence of demyelinating disease in the lumbar spine. Degenerative changes and grade 1 anterolisthesis of L4 and L5. Mild central spinal stenosis at L4-5. Bice-pj-xbsbssji multilevel bilateral foraminal stenosis as described above MRI spectroscopy 12/05/2023: Cerebellar lesion showing moderately elevated Cho, reduced ZINA, large lipid peaks, and additional tics suspicious for amino acids and alanine. The alanine and amino acids are suspicious for an infectious process Treatment according to discharge note: ASA 81mg Qd, Lipitor 20 mg daily Urinalysis, 12/08/2023: WBC: 93, urine leukocyte esterase: 3+ ABG, 12/09/2023: Metabolic acidosis WBC/HB/PLT/MCV, 12/09/2023: 8.5/7.4/350/92.4 PT/INR/PTT, 12/08/2023: 11.4/1.08 Na, 12/08/2023: 147, 12/09/2023: 146, 12/19/2019 4:148 HCO3, 12/08/2023: 23, 12/10/2023: 22, 11/2123: 19, 12/13/23: 18, 12/16/2023: 15, 12/19/2023: 17 CPK, 12/18/2023: 54 TBI/AST/ALT/AP, 12/09/2023: 0.2/40/21/278 TG/HDL/LDL/HDL, 11/2023: 136/96/38/32 Vitamin B12, 11/2023: 2537 TSH, 11/2023: 17.87 YOLANDA, 12/10/2023: n the study done today no evidence of vegetation or masses were discernible. There is mild mitral valve regurgitation with mild anterior leaflet prolapse. No significant intracardiac lesion was discernible Echocardiogram, 11/18/2023: Normal left ventricular size and dimension. Normal left ventricular systolic function estimated ejection fraction 55%. There is a grade 1 diastolic dysfunction. Normal right ventricular size and dimension. Normal right ventricular systolic function. Mildly increased right ventricular systolic pressure 34 mm of mercury. Normal biatrial size and dimension. Normal aortic valve structure and function. Normal mitral valve structure and function. Normal tricuspid valve structure and function. The pulmonary valve is grossly normal. No pericardial effusion. Carotid Doppler, 11/21/2023: 1. No evidence of hemodynamically significant stenosis within the left carotid arterial system. 2. Antegrade flow within the left vertebral artery. 3. Cannot assess the right carotid arterial system due to central line artifact and overlying bandage. Extremity venous study, 12/09/2023: Thrombus in the LEFT cephalic and brachial vein. Thrombus in the RIGHT cephalic and basilic vein.If clinical concern/symptoms persist or worsen, short-interval follow-up study is suggested. Chest x-ray, 12/08/2023: 1. Endotracheal and gastric tubes in place as described. Satisfactory position. 2. Removal of right PICC and right IJ central venous catheter since prior. 3. Mild cardiomegaly and pulmonary vascular congestion. 4. Small opacity in the lateral right lung base which could reflect atelectasis or pneumonia MRI head, 11/21/2023: Signal abnormality in the bilateral cerebellum and right occipital lobe, as well as punctate foci in the right parietal lobe and centrum semiovale. Findings could represent regions of subacute ischemia due to embolic infarcts; however, underlying metastases or infection are not excluded. Recommend contrast-enhanced MRI vital signs Vital Sign Date Time Temp Pulse Resp B/P (MAP) Pulse Ox O2 Delivery O2 Flow Rate FiO2 01/08/24 17:00 99.3 74 18 180/70 (106) 99 99.3 01/08/24 08:00 Trach Collar 8 N/A Total Intake and Output 01/07/24 01/07/24 01/08/24 15:00 23:00 07:00 Intake Total 500 ml 660 ml Output Total 650 ml 900 ml Balance -150 ml -240 ml medications Current Medications Medications Dose Ordered Sig/Leslie Route Start Time Stop Time Status Last Admin Dose Admin Sodium Chloride 10 ml QSHIFT@ IV 12/09/23 22:00 01/08/24 09:03 10 ML Metoclopramide HCl 5 mg Q6HPRN PRN IV 12/13/23 21:45 Acetylcysteine 200 mg Q8HR NEB 12/22/23 22:00 01/07/24 21:50 200 MG Insulin Glargine 15 units DAILY@1000 SC 12/24/23 13:30 01/08/24 09:26 15 UNITS Apixaban 2.5 mg BID PEG 12/26/23 22:00 01/08/24 09:01 2.5 MG Gabapentin 100 mg BID PEG 12/26/23 22:00 01/08/24 12:10 100 MG Levothyroxine Sodium 112 mcg QAM@0600 PEG 12/27/23 06:00 01/08/24 06:37 112 MCG Losartan Potassium 100 mg DAILY PEG 12/28/23 10:00 01/08/24 12:10 100 MG Metoprolol Tartrate 37.5 mg BID PEG 01/02/24 14:15 01/08/24 09:03 37.5 MG Diagnostic Test (Pha) 1 strip IQ4HR 01/07/24 04:00 01/08/24 21:14 1 STRIP Insulin Human Regular IQ4HR SC 01/07/24 04:00 01/08/24 18:23 3 UNITS Dextrose 50 ml UD PRN IV 01/07/24 02:00 01/08/24 01:27 50 ML Lorazepam 0.5 mg Q4H PRN IV 01/08/24 15:00 01/08/24 15:34 0.5 MG Albuterol 2.5 mg Q8HR NEB 01/08/24 22:00 Ipratropium [place] 0.5 mg Q8HR NEB 01/08/24 22:00 Loperamide HCl 2 mg PRN PRN GT 01/08/24 17:15 Sodium Chloride 1,000 ml @ 75 mls/hr [id number] IV 01/08/24 18:15 objective The patient is well-nourished and well-developed with no distress. Status post tracheostomy and feeding tube insertion MENTAL STATUS: Subjective CRANIAL NERVES: Pupils are equal, round and reactive, small. There are c onjugated eye movements. No signs of facial weakness. There are no gagging or coughing reflexes during oral care SENSATION: Responses to pain stimuli. MOTOR: Normal tone in the upper and lower extremity. Normal muscle bulk. No fasciculations. Muscle Bear: Arms: Right: 4-5/5, left 3/5. REFLEXES: Deep tendon reflexes are symmetrical. Bilateral upgoing toes CEREBELLAR/COORDINATION: Deferred GAIT/STATION: deferred. laboratory and microbiology Laboratory Tests 01/08/24 16:15 01/08/24 09:29 Test 01/08/24 16:15 Range/Units Serum Glucose 193 H 74-106 mg/dL Problem List Abnormal MRI brain scan, likely the patient has multiple stroke Coma Metabolic encephalopathy Hypoxic encephalopathy Multiple strokes Ketoacidosis ICU myopathy, improving Bilateral upper extremity deep venous thrombosis Rule out subacute endocarditis Status post tracheostomy Status post PEG tube Assessment/Plan Monitoring Supportive treatment Respiratory support IV antibiotics Eliquis 2.5 mg b.i.d. Tube feeding Cardiology on case Infectious disease on case More recommendation per clinical course This medical document was created using an electronic medical record system with [employer] dictation system. Although this document has been carefully reviewed, there may still be some phonetic and typographical errors. These areas are purely typographical due to imperfections of the software programs, and do not reflect any compromise in the patient's medical care. Prognosis poor Dietary Evaluation Review Comments: 1) If GI is accessible consider Glucerna 1.2 @ 55 ml/hr goal rate as tolerated 2) If pt remains NPO >7 days consider TPN to meet at least 75% of estimated needs 3) Advance pt diet when medically feasible to a CCHO 45g/Cardiac diet modified per [employer] recommendations 4) Continue current plan of care Expected Outcomes/Goals: 1) Pt to receive nutrition support within 7 days of NPO status 2) Pt diet to advance 3) F/U in 2-3 days Plan discussed with: Other DREW FAGAN MD Jan 08, 2024 21:23
[2024-01-08 22:39] LABS: Prothrombin Time 10.6 sec (9.3-11.8)
[2024-01-08] MEDS: SODIUM CHLORIDE 0.9% 1,000 ML IV SCH (22:41)
[2024-01-08] MEDS: IPRATROPIUM BROM 0.5 MG/2.5ML INH SOL NEB SCH (22:47)
[2024-01-08] MEDS: ALBUTEROL SULF 2.5 MG/0.5ML(0.5%) NEB SOLN NEB SCH (22:47)
[2024-01-09] VITALS (13 sets, daily range): BP systolic 146–159; BP diastolic 54–86; PULSE 70–84; RESP 14–80; TEMP 97.6–98.6; O2SAT 95–100
[2024-01-09] MEDS: LEVOTHYROXINE SODIUM 112 MCG TAB PO SCH (06:55)
[2024-01-09] MEDS: MORPHINE SULFATE INJ 2 MG/ml SYRG IV PRN (11:26)
--- NOTE | 2024-01-09 12:02 | DVHINCON2 ---
Date of service: Jan 09, [address] Cobb Reason for Consultation Elevated liver enzymes possible acute cholecystitis History of Present Illness This is a 68-year-old female who was admitted as a direct transfer from [facility] for continuation of care. The patient was in the ICU initially intubated sedated. My colleague Dr. Celis placed a PEG tube. Patient also underwent a tracheostomy Patient was extubated and on the floor and recovering well from her sepsis. She was noted to have elevated liver enzymes and today she is complaining of moderate right upper quadrant pain. She is suspected to have acute cholecystitis. Patient initially had sepsis with aspiration pneumonia/UTI versus brain infarcts/infection/acute CVA. She was then transferred to higher level of care to [facility], as this facility could not complete IV neuroimaging due to YUL[place] neither a lumbar puncture as there was no neuro surgical backup. Patient was transferred back to our institution after completion of workup over there. Past Medical History Past Medical History Diabetes hypothyroidism obesity and brain infection versus stroke and acute kidney infection liver cirrhosis Past Surgical History Past Surgical History Hip replacement knee surgery Family History: Patient reports no known family medical history. Allergies: Coded Allergies: NO KNOWN ALLERGIES (Unverified , 10/26/12) Home Meds Active Scripts Glipizide (Glipizide) 10 Mg Tab, 1 TAB PO DAILY for 30 Days, #30 TAB 5 Refills Prov:MIRACLE SALGADO 10/12/23 Amoxicillin & Pot Clavulanate (Augmentin) 500 Mg Tab, 1 TAB PO BID for 10 Days, #20 TAB Prov:MIRACLE SALGADO 10/12/23 Cyanocobalamin (B-12) 1,000 Mcg Delbert, 1000 MCG PO DAILY for 30 Days, #30 DELBERT Prov:MIRACLE SALGADO 10/12/23 Ergocalciferol (VITAMIN D 52124 UNIT) 50,000 [place], [address] UNIT PO Q7D for 30 Days, #10 CAP Prov:MIRACLE SALGADO 10/12/23 Acetaminophen (Acetaminophen) 325 Mg Tab, 650 MG PO Q6HP PRN for 10 Days, #80 TAB Prov:MIRACLE SALGADO 10/12/23 Insulin Aspart (Insulin Aspart) 100 Unit/Ml Inj, 100 UNIT SC TIDWM for 30 Days, #1 INJ 4 Refills insulin per sliding scale qac tid 150-200: 2 units 201-250: 4 units 251-300: 8 units' 301-350: 12 units 351-400: 15 units >400 call doctor Prov:FREEDOM RAZO MD 05/26/23 Insulin Glargine (Lantus) 100 Unit/Ml Inj, 20 UNIT SC QPM for 30 Days, #1 INJ 3 Refills Prov:FREEDOM RAZO MD 05/26/23 Reported Medications Atorvastatin Calcium (ATORVASTATIN CALCIUM) 20 Mg Tab, 20 MG PO DAILY, TAB 10/08/23 Lisinopril (Lisinopril) 10 Mg Tab, 10 MG PO DAILY, MG 10/08/23 Pregabalin (Pregabalin) 150 Mg Cap, 150 MG PO BID, CAP 10/08/23 Pramipexole Dihydrochloride (Pramipexole Dihydrochlori) 0.75 Mg Tab, 0.75 MG PO TID, TAB 10/08/23 Levothyroxine Sodium (Levothyroxine Sodium) 150 Mcg Tab, 150 MCG PO QAM for 30 Days 08/12/17 Current Medications Current Medications Medications (Trade) Dose Ordered Sig/Leslie Route PRN Reason Start Time Stop Time Status Last Admin Lorazepam (Ativan Inj) 0.5 mg Q4H PRN IV ANXIETY 01/08/24 15:00 01/09/24 08:38 Albuterol (Ventolin Medneb) 2.5 mg Q8HR NEB 01/08/24 22:00 01/09/24 06:04 Ipratropium [place] (Atrovent Medneb) 0.5 mg Q8HR NEB 01/08/24 22:00 01/09/24 06:04 Loperamide HCl (Imodium Oral Solution) 2 mg PRN PRN GT FOR DIARRHEA 01/08/24 17:15 Sodium Chloride 1,000 ml @ 75 mls/hr [id number] IV 01/08/24 18:15 01/09/24 07:52 Melatonin (Melatonin) 5 mg HS PO 01/09/24 22:00 Levothyroxine Sodium (Synthroid Tablet) 112 mcg QAM@0600 PO 01/09/24 06:00 01/09/24 06:55 Morphine Sulfate 2 mg Q4HPRN PRN IV SEVERE PAIN (7-10 PAIN SCALE) 01/09/24 10:00 01/09/24 11:26 Vital Signs Vital Signs Date Time Temp Pulse Resp B/P (MAP) Pulse Ox O2 Delivery O2 Flow Rate FiO2 01/09/24 11:26 81 22 155/86 01/09/24 09:00 97.8 98 97.8 01/09/24 08:00 Room Air* 0 21 Physical Exam General Appearance: Alert and awake mild distress Lungs: Clear to auscultation, tracheostomy scar Cardiovascular: Regular rate, Normal S1, Normal S2 Abdomen: Normal bowel sounds, Soft, [id number] epigastric and right upper quadrant tenderness; PEG tube Extremities: No edema Labs/Diagnostic Data Labs Test 01/09/24 07:53 01/08/24 21:53 01/08/24 16:15 01/08/24 09:29 Range/Units POC Glucose 103 70-106 mg/dl Prothrombin Time 10.6 9.3-11.8 sec Prothrombin Time INR 1.00 0.9-1.15 Acetaminophen Level < 2.0 L 10.0-20.0 UG/ML Sodium Level 130 L 136-145 mmol/L Potassium Level 4.6 3.5-5.1 mmol/L Chloride Level 103 98-107 mmol/L Carbon Dioxide Level 19 L 20-31 mmol/L Anion Gap 8 5-15 Blood Urea Nitrogen 10 9-23 mg/dL Creatinine 0.80 0.550-1.02 mg/dL Glomerular Filtration Rate Calc 80 >90 mL/min BUN/Creatinine Ratio 12.5 10.0-20.0 Serum Glucose 193 H 74-106 mg/dL Calcium Level 10.2 8.7-10.4 mg/dL Total Bilirubin 0.7 0.2-1.0 mg/dL Aspartate Amino Transferase (AST) > 1000 H 13-40 U/L Alanine Aminotransferase (ALT) 446 H 7-40 U/L Alkaline Phosphatase 1262 H 46-116 U/L Total Protein 7.1 5.7-8.2 g/dL Albumin 3.9 3.2-4.8 g/dL White Blood Count 6.4 # 4.4-10.8 10^3/uL Red Blood Count 3.66 L 4.0-5.20 10^6/uL Hemoglobin 10.3 L 12.2-16.2 g/dL Hematocrit 31.6 L 36.0-46.0 % Mean Corpuscular Volume 86.2 80.0-100.0 fL Mean Corpuscular Hemoglobin 28.3 28.0-32.0 pg Mean Corpuscular Hemoglobin Concent 32.8 32.0-36.0 g/dL Red Cell Distribution Width 16.5 H 11.8-14.3 % Platelet Count 464 H 140-450 10^3/uL Mean Platelet Volume 9.5 6.9-10.8 fL Neutrophils (%) (Auto) 61.9 37.0-80.0 % Lymphocytes (%) (Auto) 29.4 10.0-50.0 % Monocytes (%) (Auto) 4.7 0.0-12.0 % Eosinophils (%) (Auto) 3.5 0.0-7.0 % Basophils (%) (Auto) 0.5 0.0-2.0 % Neutrophils # (Auto) 3.9 1.6-8.6 10 ^3/uL Lymphocytes # (Auto) 1.9 0.4-5.4 10 ^3/uL Monocytes # (Auto) 0.3 0-1.3 10 ^3/uL Eosinophils # (Auto) 0.2 0-0.8 10 ^3/uL Basophils # (Auto) 0 0-0.2 10 ^3/uL Nucleated Red Blood Cells 0.1 % Phosphorus Level 3.4 2.4-5.1 mg/dL Magnesium Level 1.7 1.6-2.6 mg/dL Test 01/04/24 06:51 12/31/23 17:00 12/30/23 10:50 12/22/23 19:45 Range/Units Free Thyroxine (T4) Calculated 0.83 L 0.89-1.76 ng/dL Vitamin B12 Level 1189 H 211-911 pg/mL Vitamin D 25-Hydroxy 30.0 30.0-100 ng/mL Differential Total Cells Counted 100.0 100 Neutrophils % (Manual) 55 37.0-80.0 Band Neutrophils % (Manual) 0 Lymphocytes % (Manual) 31 10.0-50.0 Monocytes % (Manual) 6 0-12 Eosinophils % (Manual) 7 0-7 Basophils % (Manual) 0 0.0-2.0 Metamyelocytes % (manual) 0 Myelocytes % (Manual) 0 Promyelocytes % (Manual) 0 Blast Cells % (Manual) 1 Reactive Lymphocytes 0 Platelet Estimate Adequate Free Triiodothyronine (T3) pg/mL 1.35 L 2.3-4.2 pg/mL Test 12/22/23 07:55 12/20/23 11:30 12/19/23 07:29 12/18/23 04:56 Range/Units Blood Gas Specimen Type Arterial Blood Gas Sample Site Right radial Blood Gas Patient Temperature 37.0 Arterial Blood Date Drawn [id number] Arterial Blood pH 7.696 *H 7.350-7.450 Arterial Blood Partial Pressure CO2 18.4 *L 32.0-45.0 mmHg Arterial Blood Partial Pressure O2 51.2 *L 83.0-108.0 mmHg Arterial Blood HCO3 22.0 21.0-28.0 mmol/L Arterial Blood Oxygen Saturation 90.7 L 94.0-98.0 % Arterial Blood Base Excess 3.4 H -2.0-3.0 mmol/L Arterial Blood Oxyhemoglobin 90.3 L 94.0-98.0 % Arterial Blood Carboxyhemoglobin 0.0 L 0.5-1.5 % Arterial Blood Methemoglobin 0.4 0.0-1.5 % Wallace Test Yes Blood Gas Total Hemoglobin 10.60 L 12.0-16.0 g/dL Blood Gas Liter Flow 6.00 Blood Gas Modality Cool aerosol FiO2 % 28.0 Blood Gas Critical Value Read Back Yes Blood Gas Notified Whom jordana Brody Blood Gas Notified Time [id number] Blood Gas Notified By Vacation [employer]anner stacey corrigan Urine Osmolality 316 mOsm/kg Blood Gas Spontaneous Rate 24 Specimen Drawn By rohit randall Creatine Kinase 54 34-145 U/L Test 12/17/23 06:58 12/16/23 08:19 12/14/23 19:42 12/14/23 03:41 Range/Units Blood Gas Set Respiration Rate 24.0 Blood Gas Tidal Volume 578.0 Blood Gas Spontaneous Tidal Volume 578 Blood Gas PEEP or CPAP 5.0 Bl Gas Inspiratory/Expiratory Ratio 1:2.0 Random Vancomycin Level 17 L 20-30 ug/mL Urine Color Light-yellow Yellow Urine Clarity Clear Clear Urine pH 6.0 5.0-9.0 Urine Specific [place] 1.009 1.001-1.035 Urine Protein 1+ H Negative Urine Ketones Negative Negative Urine Blood 2+ H Negative /uL Urine Nitrite Negative Negative Urine Bilirubin Negative Negative Urine Urobilinogen Normal Negative mg/dL Urine Leukocyte Esterase 2+ Negative /uL Urine RBC 6 0 - 4 /hpf Urine WBC 68 0 - 5 /hpf Urine Squamous Epithelial Cells None seen <5 /hpf Urine Bacteria Few H None Seen /hpf Urine Glucose Normal Normal mg/dL Lactic Acid Level 0.8 0.4-2.0 mmol/L Ammonia 20 11-32 umol/L Test 12/12/23 10:13 12/11/23 22:02 12/11/23 16:24 12/11/23 12:59 Range/Units Reticulocyte Count (auto) 2.08 H 0.5-1.5 % Haptoglobin 240 37-355 mg/dL Iron Level 18 L 50-170 ug/dL Total Iron Binding Capacity 184 L 250-425 ug/dL Percent Iron Saturation 9.8 L 15-50 % Lactate Dehydrogenase 233 120-246 U/L Folic Acid 7.31 >5.38 ng/mL Urine Creatinine 21.88 L 30.0-125.0 mg/dL Urine Protein/Creatinine Ratio 2.01 Urine Sodium 40 40-220 mmol/L Urine Total Protein 43.9 H 0.0-11.9 mg/dL Urine Opiates Screen Neg NEGATIVE Urine Fentanyl Screen Pos NEGATIVE Urine Barbiturates Screen Neg NEGATIVE Urine Phencyclidine Screen Neg NEGATIVE Urine Amphetamines Screen Neg NEGATIVE Urine Benzodiazepines Screen Pos NEGATIVE Urine Cocaine Screen Neg NEGATIVE Urine Cannabinoids Screen Neg NEGATIVE Parathyroid Hormone (Intact) 30.6 18.4-80.1 pg/mL Vancomycin Level Trough 32.2 *H 10-20 ug/mL Test 12/11/23 03:37 12/10/23 16:03 12/10/23 04:53 12/09/23 14:45 Range/Units Anisocytosis (manual) Slight Microcytosis Slight Ovalocytes Few Blastomyces Ab Immunodiffusion Negative Neg:<1:1 Coccidioides Antibody (Comp Fix) <1:2 <1:2 Cryptococcus Antibody Negative Neg:<1:2 HIV (1&2) Antibody Negative Negative Aspergillus flavus Antibody Negative Neg:<1:1 Aspergillus fumigatus Antibody Negative Neg:<1:1 Aspergillus niger Antibody Negative Neg:<1:1 Smudge Cells 1 /100 WBC Large Platelets Few Giant Platelets Few Stomatocytes Few B-Type Natriuretic Peptide 405.67 0-100 pg/mL Influenza Type A Antigen Negative Negative Influenza Type B Antigen Negative Negative Test 12/09/23 14:30 12/09/23 09:46 12/09/23 09:28 12/09/23 06:57 Range/Units SARS-CoV-2 Antigen (Rapid) Negative NEGATIVE Blood Gas Inspiratory Pressure 15.0 Triglycerides Level 136 < 150 mg/dL Cholesterol Level 96 < 200 mg/dL LDL Cholesterol 38 < 100 mg/dL HDL Cholesterol 32 L 40-59 mg/dL Thyroid Stimulating Hormone (TSH) 17.87 H 0.55-4.78 uIU/mL Blood Gas Comments increased fio2 to 40 Test 12/08/23 19:00 Range/Units Urine WBC Clumps Present None Seen /hpf Microbiology Date/Time Source Procedure Growth Status 12/21/23 09:42 Trachea Gram Stain - Final Complete 12/21/23 09:42 Respiratory Culture - Final Yeast, not [place]app[place] albicans Complete 12/14/23 19:42 Voided Urine Urine Culture - Final Complete 12/09/23 09:28 Blood Blood Culture - Final NO GROWTH AFTER 5 DAYS OF INCUBATION. Complete 12/08/23 19:00 Sputum Gram Stain - Final Complete 12/08/23 19:00 Sputum Respiratory Culture - Final Complete Abdominal USG IMPRESSION: 1. Cholelithiasis with thickened gallbladder wall and pericholecystic fluid. The common bile duct is also dilated. Although the ultrasound Mclain's sign is negative ultrasound findings suggest acute cholecystitis. 2. 16.87 cm liver with findings suggesting steatosis. Problems(with codes): (1) Cholelithiasis and acute cholecystitis without obstruction (2) Elevated liver enzymes (3) DKA (diabetic ketoacidosis) (4) Hospital-acquired pneumonia Plan/Recommendation Plan Keep NPO IV fluid hydration IV antibiotics Pain control Monitor labs; hepatitis HIDA scan, possible MRCP Surgical consult Plan discussed with: Patient, Other (Dr Cobb) YOLIE FRIEDMAN MD Jan 09, 2024 12:02
--- NOTE | 2024-01-09 13:23 | DVHPN2 ---
Subjective She is having severe abdominal pain today She did not have abdominal pain yesterday, she only had diarrhea Repeat liver function tests showed severely elevated liver function tests with an AST more than 1000 and ALT of 446 and alkaline phosphatase of 1262 with a total bilirubin that is normal Repeat labs today are still pending Abdominal ultrasound showed cholelithiasis with thickened gallbladder wall and pericholecystic fluid suggestive of acute cholecystitis Reviewed: Care Plan, H&P, Labs, Medications, Previous Orders, Radiology, Other (Consultants) Changes from previous H/P or p: Changes Objective Vitals Vital Signs Date Time Temp Pulse Resp B/P (MAP) Pulse Ox O2 Delivery O2 Flow Rate FiO2 01/09/24 13:02 97.9 70 18 146/60 (88) 98 97.9 01/09/24 08:00 Room Air* 0 21 Intake/Output Intake and Output 01/09/24 07:00 Intake Total 622 ml Output Total 2250 ml Balance -1628 ml Intake Oral 622 ml Output Urine Total 2250 ml # Bowel Movements 1 General Appearance: Alert Lungs: Clear to auscultation Cardiovascular: Regular rate, Normal S1, Normal S2 Abdomen: Normal bowel sounds, Soft, No tenderness Extremities: No edema Medications Current Medications Medications Dose Ordered Sig/Leslie Route Start Time Stop Time Status Last Admin Dose Admin Metoclopramide HCl 5 mg Q6HPRN PRN IV 12/13/23 21:45 Acetylcysteine 200 mg Q8HR NEB 12/22/23 22:00 01/09/24 06:04 200 MG Insulin Glargine 15 units DAILY@1000 SC 12/24/23 13:30 01/08/24 09:26 15 UNITS Gabapentin 100 mg BID PEG 12/26/23 22:00 01/09/24 09:57 100 MG Losartan Potassium 100 mg DAILY PEG 12/28/23 10:00 01/09/24 09:58 100 MG Metoprolol Tartrate 37.5 mg BID PEG 01/02/24 14:15 01/09/24 09:59 37.5 MG Diagnostic Test (Pha) 1 strip IQ4HR 01/07/24 04:00 01/09/24 12:16 1 STRIP Insulin Human Regular IQ4HR SC 01/07/24 04:00 01/09/24 12:15 3 UNITS Dextrose 50 ml UD PRN IV 01/07/24 02:00 01/08/24 01:27 50 ML Lorazepam 0.5 mg Q4H PRN IV 01/08/24 15:00 01/09/24 13:02 0.5 MG Albuterol 2.5 mg Q8HR NEB 01/08/24 22:00 01/09/24 06:04 2.5 MG Ipratropium [place] 0.5 mg Q8HR NEB 01/08/24 22:00 01/09/24 06:04 0.5 MG Loperamide HCl 2 mg PRN PRN GT 01/08/24 17:15 Sodium Chloride 1,000 ml @ 75 mls/hr [id number] IV 01/08/24 18:15 01/09/24 07:52 75 MLS/HR Melatonin 5 mg HS PO 01/09/24 22:00 Levothyroxine Sodium 112 mcg QAM@0600 PO 01/09/24 06:00 01/09/24 06:55 112 MCG Morphine Sulfate 2 mg Q4HPRN PRN IV 01/09/24 10:00 01/09/24 11:26 2 MG Laboratory Results Laboratory Tests 01/08/24 09:29 01/08/24 16:15 Chemistry Test 01/08/24 16:15 Albumin 3.9 g/dL (3.2-4.8) Calcium Level 10.2 mg/dL (8.7-10.4) Total Protein 7.1 g/dL (5.7-8.2) Coagulation Test 01/08/24 21:53 Prothrombin Time 10.6 sec (9.3-11.8) Prothrombin Time INR 1.00 (0.9-1.15) LFT Test 01/08/24 16:15 Alanine Aminotransferase (ALT) 446 U/L (7-40) H Alkaline Phosphatase 1262 U/L (46-116) H Aspartate Amino Transferase (AST) > 1000 U/L (13-40) H Total Bilirubin 0.7 mg/dL (0.2-1.0) Urinalysis Test 12/08/23 19:00 12/11/23 22:02 12/14/23 19:42 12/20/23 11:30 Urine WBC Clumps Present /hpf (None Seen) Urine Creatinine 21.88 mg/dL (30.0-125.0) L Urine Protein/Creatinine Ratio 2.01 Urine Sodium 40 mmol/L (40-220) Urine Total Protein 43.9 mg/dL (0.0-11.9) H Urine Color Light-yellow (Yellow) Urine Clarity Clear (Clear) Urine pH 6.0 (5.0-9.0) Urine Specific [place] 1.009 (1.001-1.035) Urine Protein 1+ (Negative) H Urine Ketones Negative (Negative) Urine Blood 2+ /uL (Negative) H Urine Nitrite Negative (Negative) Urine Bilirubin Negative (Negative) Urine Urobilinogen Normal mg/dL (Negative) Urine Leukocyte Esterase 2+ /uL (Negative) Urine RBC 6 /hpf (0 - 4) Urine WBC 68 /hpf (0 - 5) Urine Squamous Epithelial Cells None seen /hpf (<5) Urine Bacteria Few /hpf (None Seen) H Urine Glucose Normal mg/dL (Normal) Urine Osmolality 316 mOsm/kg Microbiology Microbiology Date/Time Source Procedure Growth Status 12/21/23 09:42 Trachea Gram Stain - Final Complete 12/21/23 09:42 Respiratory Culture - Final Yeast, not [place] albicans Complete 12/14/23 19:42 Voided Urine Urine Culture - Final Complete 12/09/23 09:28 Blood Blood Culture - Final NO GROWTH AFTER 5 DAYS OF INCUBATION. 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 Acute hypoxic respiratory failure, resolved Recent DKA , resolved Metabolic encephalopathy due to sepsis Sepsis Aspiration pneumonia COPD Acute on chronic diastolic heart failure, ejection fraction 55% No endocarditis Hypertension Sepsis with septic shock Septic shock due to UTI and pneumonia , resolved Uncontrolled diabetes, A1c 11.7 Hypothyroidism UTI Hypernatremia Fatty liver DVT of cephalic vein Anemia status post blood transfusion Acute kidney injury due to vasomotor nephropathy Acute cholecystitis 01/08/24: Diarrhea Elevated liver function tests Cholelithiasis Ruled out acute cholecystitis Plan: Diarrhea, elevated LFTs Repeat LFTs shows severely elevated enzymes Stop acetaminophen Check acetaminophen level Check hepatitis panel Check abdominal US: It showed cholelithiasis with thickened gallbladder wall and pericholecystic fluid suggesting acute cholecystitis Consult GI Stopped the Glucerna for now and keep NPO for now IV fluids 01/09/2024: Acute cholecystitis: Keep the patient NPO Surgical consultation Get the repeat liver function tests today Hold Eliquis IV fluids Plan discussed with: Patient My Orders Orders - REFUGIO VALENTE MD Procedure Category Date Status Time Lorazepam 2mg/Ml Inj PHA 01/08/24 In Process (Ativan Inj) 15:00 Abdomen Complete US 01/08/24 Resulted Sonogram 14:53 Comprehensive LAB 01/09/24 Logged Metabolic Panel 04:00 Albuterol Medneb PHA 01/08/24 In Process (Ventolin Medneb) 22:00 Ipratropium Medneb PHA 01/08/24 In Process (Atrovent Medneb) 22:00 Loperamide Oral PHA 01/08/24 In Process Solution (Imodium 17:15 Acute Hepatitis Panel LAB 01/08/24 In Process 17:55 * [facility] [address] [facility] Magistrate CONS 01/08/24 Transmitted 18:01 Sodium Chloride 0.9% PHA 01/08/24 In Process 18:15 C-Diff: Collect Next JUAN 01/08/24 In Process Specimen 19:43 Morphine Sulfate PHA 01/09/24 In Process Injection 10:00 * Surgical Consult CONS 01/09/24 Transmitted 10:02 Date of Service: Jan 09, 2024 Billing Provider: REFUGIO VALENTE MD Common Visit Codes: [id number] INP/OBS CARE(HIGH) REFUGIO VALENTE MD Jan 09, 2024 13:23
[2024-01-09 13:59] LABS: Alanine Aminotransferase 316 U/L (7-40); Albumin 3.7 g/dL (3.2-4.8); Anion Gap 5 (5-15); Aspartate Aminotransferase 452 U/L (13-40); BUN/Creatinine Ratio 13.2 (10.0-20.0); Bilirubin, Total 0.5 mg/dL (0.2-1.0); Blood Urea Nitrogen 10 mg/dL (9-23); Calcium 9.9 mg/dL (8.7-10.4); Carbon Dioxide 22 mmol/L (20-31); Chloride 105 mmol/L (98-107); Glucose 219 mg/dL (74-106); Potassium 4.6 mmol/L (3.5-5.1); Sodium 132 mmol/L (136-145); Total Protein 6.7 g/dL (5.7-8.2)
[2024-01-09 14:07] LABS: Alkaline Phosphatase 1084 U/L (46-116)
[2024-01-09] MEDS: MELATONIN 5 MG TAB PO SCH (22:00)
[2024-01-10] VITALS (15 sets, daily range): BP systolic 140–179; BP diastolic 64–77; PULSE 76–114; RESP 15–22; TEMP 98–98.6; O2SAT 95–100
[2024-01-10 08:37] LABS: Hepatitis B Surface Antigen Negative (Negative)
[2024-01-10 08:56] LABS: Hepatitis A Ab IgM Negative
[2024-01-10 08:58] LABS: Hepatitis B Core IgM Negative; Hepatitis C Antibody Negative (Negative)
[2024-01-10 10:53] LABS: Basophils # (auto) 0.1 10 ^3/uL (0-0.2); Basophils % (auto) 1.2 % (0.0-2.0); Eosinophils # (auto) 0.4 10 ^3/uL (0-0.8); Eosinophils % (auto) 6.5 % (0.0-7.0); Hematocrit 31.4 % (36.0-46.0); Lymphocytes # (auto) 2.5 10 ^3/uL (0.4-5.4); Lymphocytes % (auto) 35.6 % (10.0-50.0); Mean Corpuscular Hemoglobin 27.6 pg (28.0-32.0); Mean Corpuscular Hgb Conc. 31.8 g/dL (32.0-36.0); Mean Corpuscular Volume 86.8 fL (80.0-100.0); Monocytes # (auto) 0.3 10 ^3/uL (0-1.3); Monocytes % (auto) 4.4 % (0.0-12.0); Neutrophils # (auto) 3.6 10 ^3/uL (1.6-8.6); Neutrophils % (auto) 52.3 % (37.0-80.0); Nucleated Red Blood Cells % 0.2 %; Platelet Count (auto) 397 10^3/uL (140-450); Red Blood Cells 3.62 10^6/uL (4.0-5.20); Red Cell Distribution Width 16.7 % (11.8-14.3); White Blood Cell 6.9 10^3/uL (4.4-10.8)
[2024-01-10 11:08] LABS: INR 1.03 (0.9-1.15); Partial Thromboplastin Time 31.4 SEC (24.5-34.5); Prothrombin Time 10.9 sec (9.3-11.8)
[2024-01-10 11:12] LABS: Alanine Aminotransferase 202 U/L (7-40); Albumin 3.6 g/dL (3.2-4.8); Alkaline Phosphatase 884 U/L (46-116); Anion Gap 8 (5-15); Aspartate Aminotransferase 155 U/L (13-40); BUN/Creatinine Ratio 10.4 (10.0-20.0); Blood Urea Nitrogen 8 mg/dL (9-23); Calcium 9.6 mg/dL (8.7-10.4); Carbon Dioxide 20 mmol/L (20-31); Chloride 106 mmol/L (98-107); Cholesterol 158 mg/dL (< 200); Glucose 247 mg/dL (74-106); HDL Cholesterol 58 mg/dL (40-59); LDL Cholesterol 74 mg/dL (< 100); Magnesium 1.8 mg/dL (1.6-2.6); Potassium 4.5 mmol/L (3.5-5.1); Sodium 134 mmol/L (136-145); Triglycerides 144 mg/dL (< 150)
[2024-01-10 11:13] LABS: Bilirubin, Total 0.4 mg/dL (0.2-1.0); Total Protein 6.5 g/dL (5.7-8.2)
[2024-01-10 11:42] LABS: Lipase 23 U/L (12-53)
--- NOTE | 2024-01-10 14:28 | DVHINCON2 ---
Date of service: Jan 10, 2024 Family History: Patient reports no known family medical history. Allergies: Coded Allergies: NO KNOWN ALLERGIES (Unverified , 10/26/12) Home Meds Active Scripts Glipizide (Glipizide) 10 Mg Tab, 1 TAB PO DAILY for 30 Days, #30 TAB 5 Refills Prov:MIRACLE SALGADO 10/12/23 Amoxicillin & Pot Clavulanate (Augmentin) 500 Mg Tab, 1 TAB PO BID for 10 Days, #20 TAB Prov:MIRACLE SALGADO [facility] 10/12/23 Cyanocobalamin (B-12) 1,000 Mcg Delbert, 1000 MCG PO DAILY for 30 Days, #30 DELBERT Prov:MIRACLE SALGADO [facility] 10/12/23 Ergocalciferol (VITAMIN D 88174 UNIT) 50,000 [place], [address] UNIT PO Q7D for 30 Days, #10 CAP Prov:MIRACLE SALGADO [facility] 10/12/23 Acetaminophen (Acetaminophen) 325 Mg Tab, 650 MG PO Q6HP PRN for 10 Days, #80 TAB Prov:MIRACLE SALGADO [facility] 10/12/23 Insulin Aspart (Insulin Aspart) 100 Unit/Ml Inj, 100 UNIT SC TIDWM for 30 Days, #1 INJ 4 Refills insulin per sliding scale qac tid 150-200: 2 units 201-250: 4 units 251-300: 8 units' 301-350: 12 units 351-400: 15 units >400 call doctor Prov:FREEDOM RAZO MD 05/26/23 Insulin Glargine (Lantus) 100 Unit/Ml Inj, 20 UNIT SC QPM for 30 Days, #1 INJ 3 Refills Prov:FREEDOM RAZO MD 05/26/23 Reported Medications Atorvastatin Calcium (ATORVASTATIN CALCIUM) 20 Mg Tab, 20 MG PO DAILY, TAB 10/08/23 Lisinopril (Lisinopril) 10 Mg Tab, 10 MG PO DAILY, MG 10/08/23 Pregabalin (Pregabalin) 150 Mg Cap, 150 MG PO BID, CAP 10/08/23 Pramipexole Dihydrochloride (Pramipexole Dihydrochlori) 0.75 Mg Tab, 0.75 MG PO TID, TAB 10/08/23 Levothyroxine Sodium (Levothyroxine Sodium) 150 Mcg Tab, 150 MCG PO QAM for 30 Days 08/12/17 Current Medications Current Medications Medications (Trade) Dose Ordered Sig/Leslie Route PRN Reason Start Time Stop Time Status Last Admin Melatonin (Melatonin) 5 mg HS PO 01/09/24 22:00 Vital Signs Vital Signs Date Time Temp Pulse Resp B/P (MAP) Pulse Ox O2 Delivery O2 Flow Rate FiO2 01/10/24 14:04 82 22 100 01/10/24 13:48 Room Air 0.0 01/10/24 13:48 21 01/10/24 09:27 179/76 01/10/24 08:44 98.5 98.5 Labs/Diagnostic Data Labs Test 01/10/24 11:19 01/10/24 10:30 01/08/24 21:53 01/08/24 09:29 Range/Units POC Glucose 245 H 70-106 mg/dl White Blood Count 6.9 4.4-10.8 10^3/uL Red Blood Count 3.62 L 4.0-5.20 10^6/uL Hemoglobin 10.0 L 12.2-16.2 g/dL Hematocrit 31.4 L 36.0-46.0 % Mean Corpuscular Volume 86.8 80.0-100.0 fL Mean Corpuscular Hemoglobin 27.6 L 28.0-32.0 pg Mean Corpuscular Hemoglobin Concent 31.8 L 32.0-36.0 g/dL Red Cell Distribution Width 16.7 H 11.8-14.3 % Platelet Count 397 140-450 10^3/uL Mean Platelet Volume 9.1 6.9-10.8 fL Neutrophils (%) (Auto) 52.3 37.0-80.0 % Lymphocytes (%) (Auto) 35.6 10.0-50.0 % Monocytes (%) (Auto) 4.4 0.0-12.0 % Eosinophils (%) (Auto) 6.5 0.0-7.0 % Basophils (%) (Auto) 1.2 0.0-2.0 % Neutrophils # (Auto) 3.6 1.6-8.6 10 ^3/uL Lymphocytes # (Auto) 2.5 0.4-5.4 10 ^3/uL Monocytes # (Auto) 0.3 0-1.3 10 ^3/uL Eosinophils # (Auto) 0.4 0-0.8 10 ^3/uL Basophils # (Auto) 0.1 0-0.2 10 ^3/uL Nucleated Red Blood Cells 0.2 % Prothrombin Time 10.9 9.3-11.8 sec Prothrombin Time INR 1.03 0.9-1.15 Activated Partial Thromboplast Time 31.4 24.5-34.5 SEC Sodium Level 134 L 136-145 mmol/L Potassium Level 4.5 3.5-5.1 mmol/L Chloride Level 106 98-107 mmol/L Carbon Dioxide Level 20 20-31 mmol/L Anion Gap 8 5-15 Blood Urea Nitrogen 8 L 9-23 mg/dL Creatinine 0.77 0.550-1.02 mg/dL Glomerular Filtration Rate Calc 83 >90 mL/min BUN/Creatinine Ratio 10.4 10.0-20.0 Serum Glucose 247 H 74-106 mg/dL Calcium Level 9.6 8.7-10.4 mg/dL Magnesium Level 1.8 1.6-2.6 mg/dL Total Bilirubin 0.4 0.2-1.0 mg/dL Gamma Glutamyl Transpeptidase 370 H <38 U/L Aspartate Amino Transferase (AST) 155 H 13-40 U/L Alanine Aminotransferase (ALT) 202 H 7-40 U/L Alkaline Phosphatase 884 H 46-116 U/L Total Protein 6.5 5.7-8.2 g/dL Albumin 3.6 3.2-4.8 g/dL Triglycerides Level 144 < 150 mg/dL Cholesterol Level 158 < 200 mg/dL LDL Cholesterol 74 < 100 mg/dL HDL Cholesterol 58 40-59 mg/dL Lipase 23 12-53 U/L Acetaminophen Level < 2.0 L 10.0-20.0 UG/ML Hepatitis A IgM Antibody Negative Hepatitis B Surface Antigen Negative Negative Hepatitis B Core IgM Antibody Negative Hepatitis C Antibody Negative Negative Phosphorus Level 3.4 2.4-5.1 mg/dL Test 01/04/24 06:51 12/31/23 17:00 12/30/23 10:50 12/22/23 19:45 Range/Units Free Thyroxine (T4) Calculated 0.83 L 0.89-1.76 ng/dL Vitamin B12 Level 1189 H 211-911 pg/mL Vitamin D 25-Hydroxy 30.0 30.0-100 ng/mL Differential Total Cells Counted 100.0 100 Neutrophils % (Manual) 55 37.0-80.0 Band Neutrophils % (Manual) 0 Lymphocytes % (Manual) 31 10.0-50.0 Monocytes % (Manual) 6 0-12 Eosinophils % (Manual) 7 0-7 Basophils % (Manual) 0 0.0-2.0 Metamyelocytes % (manual) 0 Myelocytes % (Manual) 0 Promyelocytes % (Manual) 0 Blast Cells % (Manual) 1 Reactive Lymphocytes 0 Platelet Estimate Adequate Free Triiodothyronine (T3) pg/mL 1.35 L 2.3-4.2 pg/mL Test 12/22/23 07:55 12/20/23 11:30 12/19/23 07:29 12/18/23 04:56 Range/Units Blood Gas Specimen Type Arterial Blood Gas Sample Site Right radial Blood Gas Patient Temperature 37.0 Arterial Blood Date Drawn [id number] Arterial Blood pH 7.696 *H 7.350-7.450 Arterial Blood Partial Pressure CO2 18.4 *L 32.0-45.0 mmHg Arterial Blood Partial Pressure O2 51.2 *L 83.0-108.0 mmHg Arterial Blood HCO3 22.0 21.0-28.0 mmol/L Arterial Blood Oxygen Saturation 90.7 L 94.0-98.0 % Arterial Blood Base Excess 3.4 H -2.0-3.0 mmol/L Arterial Blood Oxyhemoglobin 90.3 L 94.0-98.0 % Arterial Blood Carboxyhemoglobin 0.0 L 0.5-1.5 % Arterial Blood Methemoglobin 0.4 0.0-1.5 % Wallace Test Yes Blood Gas Total Hemoglobin 10.60 L 12.0-16.0 g/dL Blood Gas Liter Flow 6.00 Blood Gas Modality Cool aerosol FiO2 % 28.0 Blood Gas Critical Value Read Back Yes Blood Gas Notified Whom jordana Brody Blood Gas Notified Time [id number] Blood Gas Notified By Application Developer stacey corrigan Urine Osmolality 316 mOsm/kg Blood Gas Spontaneous Rate 24 Specimen Drawn By rohit randall Creatine Kinase 54 34-145 U/L Test 12/17/23 06:58 12/16/23 08:19 12/14/23 19:42 12/14/23 03:41 Range/Units Blood Gas Set Respiration Rate 24.0 Blood Gas Tidal Volume 578.0 Blood Gas Spontaneous Tidal Volume 578 Blood Gas PEEP or CPAP 5.0 Bl Gas Inspiratory/Expiratory Ratio 1:2.0 Random Vancomycin Level 17 L 20-30 ug/mL Urine Color Light-yellow Yellow Urine Clarity Clear Clear Urine pH 6.0 5.0-9.0 Urine Specific [place] 1.009 1.001-1.035 Urine Protein 1+ H Negative Urine Ketones Negative Negative Urine Blood 2+ H Negative /uL Urine Nitrite Negative Negative Urine Bilirubin Negative Negative Urine Urobilinogen Normal Negative mg/dL Urine Leukocyte Esterase 2+ Negative /uL Urine RBC 6 0 - 4 /hpf Urine WBC 68 0 - 5 /hpf Urine Squamous Epithelial Cells None seen <5 /hpf Urine Bacteria Few H None Seen /hpf Urine Glucose Normal Normal mg/dL Lactic Acid Level 0.8 0.4-2.0 mmol/L Ammonia 20 11-32 umol/L Test 12/12/23 10:13 12/11/23 22:02 12/11/23 16:24 12/11/23 12:59 Range/Units Reticulocyte Count (auto) 2.08 H 0.5-1.5 % Haptoglobin 240 37-355 mg/dL Iron Level 18 L 50-170 ug/dL Total Iron Binding Capacity 184 L 250-425 ug/dL Percent Iron Saturation 9.8 L 15-50 % Lactate Dehydrogenase 233 120-246 U/L Folic Acid 7.31 >5.38 ng/mL Urine Creatinine 21.88 L 30.0-125.0 mg/dL Urine Protein/Creatinine Ratio 2.01 Urine Sodium 40 40-220 mmol/L Urine Total Protein 43.9 H 0.0-11.9 mg/dL Urine Opiates Screen Neg NEGATIVE Urine Fentanyl Screen Pos NEGATIVE Urine Barbiturates Screen Neg NEGATIVE Urine Phencyclidine Screen Neg NEGATIVE Urine Amphetamines Screen Neg NEGATIVE Urine Benzodiazepines Screen Pos NEGATIVE Urine Cocaine Screen Neg NEGATIVE Urine Cannabinoids Screen Neg NEGATIVE Parathyroid Hormone (Intact) 30.6 18.4-80.1 pg/mL Vancomycin Level Trough 32.2 *H 10-20 ug/mL Test 12/11/23 03:37 12/10/23 16:03 12/10/23 04:53 12/09/23 14:45 Range/Units Anisocytosis (manual) Slight Microcytosis Slight Ovalocytes Few Blastomyces Ab Immunodiffusion Negative Neg:<1:1 Coccidioides Antibody (Comp Fix) <1:2 <1:2 Cryptococcus Antibody Negative Neg:<1:2 HIV (1&2) Antibody Negative Negative Aspergillus flavus Antibody Negative Neg:<1:1 Aspergillus fumigatus Antibody Negative Neg:<1:1 Aspergillus niger Antibody Negative Neg:<1:1 Smudge Cells 1 /100 WBC Large Platelets Few Giant Platelets Few Stomatocytes Few B-Type Natriuretic Peptide 405.67 0-100 pg/mL Influenza Type A Antigen Negative Negative Influenza Type B Antigen Negative Negative Test 12/09/23 14:30 12/09/23 09:46 12/09/23 09:28 12/09/23 06:57 Range/Units SARS-CoV-2 Antigen (Rapid) Negative NEGATIVE Blood Gas Inspiratory Pressure 15.0 Thyroid Stimulating Hormone (TSH) 17.87 H 0.55-4.78 uIU/mL Blood Gas Comments increased fio2 to 40 Test 12/08/23 19:00 Range/Units Urine WBC Clumps Present None Seen /hpf Microbiology Date/Time Source Procedure Growth Status 12/21/23 09:42 Trachea Gram Stain - Final Complete 12/21/23 09:42 Respiratory Culture - Final Yeast, not Sapphire albicans Complete 12/14/23 19:42 Voided Urine Urine Culture - Final Complete 12/09/23 09:28 Blood Blood Culture - Final NO GROWTH AFTER 5 DAYS OF INCUBATION. Complete 12/08/23 19:00 Sputum Gram Stain - Final Complete 12/08/23 19:00 Sputum Respiratory Culture - Final Complete Assessment 68 year old female with multiple medical oproblems, has gallstones and normal wbc, stable h/h,normal bilirubin ,elevated LFT's. no abdominal pain, no abdominal tenderness. Poor candidate for elective operation, no indication for emergency surgical intervention. OK to resume po intake. Plan discussed with: Patient BRENDON MARQUEZ MD Jan 10, 2024 14:27
[2024-01-10] MEDS: InsuLIN REG 1unit/0.01ml Soln (100units/ml) SC SCH ×2 (16:10→23:54)
--- NOTE | 2024-01-10 17:17 | DVHPNRES ---
Progress Note Date Seen: Jan 10, 2024 Resident Creating Document: MAKENNA MARTINEZ RESIDENT Has the PT tested + for MRSA If YES, has PT been informed?: No Medical Necessity Reason Pt with a Central, PICC or Fol: Yes The following are medically ne: PICC Line, Carr Catheter Reason for carr catheter: Strict I&O Subjective Review of Systems A 68 y old female with PMHx of HTN, DM type 2, hypothyroidism, COPD, obesity, liver cirrhosis She came initially at [facility] on 11/16/2023 for AMS and DKA in this facility she was intubated and transfer to [facility]. Here, a CT scan of the abdomen showed CBD dilation and was sent to [facility] 11/26/2023 for ERCP, which didnt show any obstruction, Also a brain MRI was done showing mulitple old infracts. Patient was again transfered to [facility] 11/28/2023 extubated and On 12/03/2023 patient required reintubation, on 12/12/23: gastrostomy was done and 12/13/23 tracheostomy was done. Cultures: 12/08/23: sputum negative 12/08/23: urine negative 12/09/23: blood culture negative 5 days 12/14/23: urine negative 12/21/23: respiratory culture normal jordan Images: 01/08/24: abdomen US Cholelithiasis with thickened gallbladder wall and pericholecystic fluid. The common bile duct is also dilated. Although the ultrasound Mclain's sign is negative ultrasound findings suggest acute cholecystitis. 16.87 cm liver with findings suggesting steatosis. 12/10/23: Abdomen/ pelvis CT scan No acute findings in the abdomen or pelvis. Multifocal airspace disease. 11/21/23: MRI brain Signal abnormality in the bilateral cerebellum and right occipital lobe, as well as punctate foci in the right parietal lobe and centrum semiovale. Findings could represent regions of subacute ischemia due to embolic infarcts; however, underlying metastases or infection are not excluded 11/21/23: MRCP Distended gallbladder with mild pericholecystic edema and gallbladder wall thickening. No definite gallbladder stones or sludge are present. There is diffuse dilation of the extrahepatic common bile duct measuring up to 1.1 cm. There is no definite appreciable obstructing stone or mass. Small ampullary lesion or stone is not completely excluded. ERCP could be obtained to further evaluate if clinically indicated. Patient is alert and oriented in person, place and time. Speaking sentences, answering all type of questions and working with physical therapy twice a day. Patient passes swallow evaluation 01/06/2024 and is currently tolerating pureed diet. Objective vital signs Vital Sign Date Time Temp Pulse Resp B/P (MAP) Pulse Ox O2 Delivery O2 Flow Rate FiO2 01/10/24 17:06 98.0 80 18 157/77 (103) 99 98.0 01/10/24 14:14 Trach Collar 6 28 Cool Aerosol 28 Total Intake and Output 01/09/24 01/09/24 01/10/24 15:00 23:00 07:00 Intake Total 2050 ml 0 ml Output Total 750 ml 700 ml Balance 1300 ml -700 ml medications Current Medications Medications Dose Ordered Sig/Leslie Route Start Time Stop Time Status Last Admin Dose Admin Metoclopramide HCl 5 mg Q6HPRN PRN IV 12/13/23 21:45 Insulin Glargine 15 units DAILY@1000 SC 12/24/23 13:30 01/08/24 09:26 15 UNITS Gabapentin 100 mg BID PEG 12/26/23 22:00 01/09/24 09:57 100 MG Losartan Potassium 100 mg DAILY PEG 12/28/23 10:00 01/09/24 09:58 100 MG Metoprolol Tartrate 37.5 mg BID PEG 01/02/24 14:15 01/09/24 09:59 37.5 MG Diagnostic Test (Pha) 1 strip IQ4HR 01/07/24 04:00 01/10/24 16:07 1 STRIP Dextrose 50 ml UD PRN IV 01/07/24 02:00 01/10/24 16:18 50 ML Lorazepam 0.5 mg Q4H PRN IV 01/08/24 15:00 01/10/24 11:10 0.5 MG Albuterol 2.5 mg Q8HR NEB 01/08/24 22:00 01/10/24 13:47 2.5 MG Ipratropium [place] 0.5 mg Q8HR NEB 01/08/24 22:00 01/10/24 13:47 0.5 MG Loperamide HCl 2 mg PRN PRN GT 01/08/24 17:15 Sodium Chloride 1,000 ml @ 75 mls/hr [id number] IV 01/08/24 18:15 10/21/24 09:31 75 MLS/HR Melatonin 5 mg HS PO 01/09/24 22:00 Levothyroxine Sodium 112 mcg QAM@0600 PO 01/09/24 06:00 01/09/24 06:55 112 MCG Morphine Sulfate 2 mg Q4HPRN PRN IV 01/09/24 10:00 01/10/24 15:19 2 MG Insulin Human Regular AC SC 01/10/24 17:00 Examination Alert Breathing on room air sat 94% HEENT: Normocephalic, atraumatic, moist mucous membranes, trach tube on place. Respiratory/pulmonary: Bilateral lung sounds grossly clear, Cardiovascular: Regular heart sounds S1 and S2 with no associated murmurs. Abdomen: Abdomen nondistended, there is mild pain to palpation to the epigastric region, no palpable masses. PEG tube on place with no signs in infection at this time. Extremities: There are no peripheral edema at this time. There is increase in motor strength in all 4 extremities and patient is now able to move lower extremities. Peripheral Pulses: no edema laboratory and microbiology Laboratory Tests 01/10/24 10:30 Test 01/10/24 10:30 Range/Units Serum Glucose 247 H 74-106 mg/dL Microbiology Date/Time Source Procedure Growth Status 12/21/23 09:42 Trachea Gram Stain - Final Complete 12/21/23 09:42 Respiratory Culture - Final Yeast, not Sapphire albicans Complete 12/14/23 19:42 Voided Urine Urine Culture - Final Complete 12/09/23 09:28 Blood Blood Culture - Final NO GROWTH AFTER 5 DAYS OF INCUBATION. 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 #Hypertensive heart disease on acute on chronic diastolic heart failure -Continue losartan 50mg QD -Continue metoprolol 25mg PO BID Respiratory #S/P tracheostomy (12/13/23) -Trach tube was downsized on 01/03/24 from 8.5 to a 6.0 fenestrated cuff trach tube Plan to decannulate tomorrow #Acute hypoxic respiratory failure likely in the setting of aspiration pneumonia No antibiotics according to ID Swallow evaluation 01/06/2024: patient is tolerate puree and nectar Infectious disease #Sepsis likely due to aspiration pneumonia and UTI resolved -Completed abs treatment UTI resolved Endocrinology Type 2 diabetes mellitus, DKA on previous admissions -Continue mild sliding scale insulin -Continue Lantus 15 units q.a.m. Hypothyroidism -Continue levothyroxine [id number] Gastroenterology #s/p g tube #Acute cholecystitis Patient is poor candidate for elective procedures, no need of emergency procedures st the time Patient WBC is normal, no pain, no jaundice #Hepatic steatosis #Dilated CBD #Acute transaminitis -AST 155, ALT 202 AP 884 Hematology Superficial thrombophlebitis of right cephalic and basilic veins -no need for anticoagulation NO SONOGRAPHIC EVIDENCE FOR DEEP VENOUS THROMBOSIS IN THE LEFT UPPER EXTREMITY VEINS. Nephrology YULIANA likely due to VMN -Last creatinine was 0.77 -Monitor kidney function Nutrition continue feeding g tube Continue physical therapy to twice a day Lines: PICC line on left upper arm placed on 12/09/2023 Goals of care discussed with the patient for 25 min Plan discussed with Dr. Razo Plan discussed with: Patient, Other (rn ) Dietary Evaluation Review Comments: 1) If GI is accessible consider Glucerna 1.2 @ 55 ml/hr goal rate as tolerated 2) If pt remains NPO >7 days consider TPN to meet at least 75% of estimated needs 3) Advance pt diet when medically feasible to a CCHO 45g/Cardiac diet modified per DIRECTOR OF INFECTION PREVENTION recommendations 4) Continue current plan of care Expected Outcomes/Goals: 1) Pt to receive nutrition support within 7 days of NPO status 2) Pt diet to advance 3) F/U in 2-3 days Date of Service: Jan 10, 2024 Billing Provider: FREEDOM RAZO MD Common Visit Codes: [id number] INP/OBS CARE(HIGH) MAKENNA MARTINEZ RESIDENT Jan 10, 2024 17:17 FREEDOM RAZO MD Jan 11, 2024 11:55
--- NOTE | 2024-01-10 19:59 | DVHPN2 ---
Consult Progress Note Date Seen: Jan 08, 2024 Subjective Patient reports: Feels better (no acute distress refusing meds) Objective vital signs Vital Sign Date Time Temp Pulse Resp B/P (MAP) Pulse Ox O2 Delivery O2 Flow Rate FiO2 01/10/24 17:06 98.0 80 18 157/77 (103) 99 98.0 01/10/24 14:14 Trach Collar 6 28 Cool Aerosol 28 Total Intake and Output 01/09/24 01/09/24 01/10/24 15:00 23:00 07:00 Intake Total 2050 ml 0 ml Output Total 750 ml 700 ml Balance 1300 ml -700 ml medications Current Medications Medications Dose Ordered Sig/Leslie Route Start Time Stop Time Status Last Admin Dose Admin Metoclopramide HCl 5 mg Q6HPRN PRN IV 12/13/23 21:45 Insulin Glargine 15 units DAILY@1000 SC 12/24/23 13:30 01/08/24 09:26 15 UNITS Gabapentin 100 mg BID PEG 12/26/23 22:00 01/09/24 09:57 100 MG Losartan Potassium 100 mg DAILY PEG 12/28/23 10:00 01/09/24 09:58 100 MG Metoprolol Tartrate 37.5 mg BID PEG 01/02/24 14:15 01/09/24 09:59 37.5 MG Diagnostic Test (Pha) 1 strip IQ4HR 01/07/24 04:00 01/10/24 16:07 1 STRIP Dextrose 50 ml UD PRN IV 01/07/24 02:00 01/10/24 16:18 50 ML Lorazepam 0.5 mg Q4H PRN IV 01/08/24 15:00 01/10/24 17:45 0.5 MG Albuterol 2.5 mg Q8HR NEB 01/08/24 22:00 01/10/24 13:47 2.5 MG Ipratropium [place] 0.5 mg Q8HR NEB 01/08/24 22:00 01/10/24 13:47 0.5 MG Loperamide HCl 2 mg PRN PRN GT 01/08/24 17:15 Sodium Chloride 1,000 ml @ 75 mls/hr [id number] IV 01/08/24 18:15 01/10/24 09:31 75 MLS/HR Melatonin 5 mg HS PO 01/09/24 22:00 Levothyroxine Sodium 112 mcg QAM@0600 PO 01/09/24 06:00 01/09/24 06:55 112 MCG Morphine Sulfate 2 mg Q4HPRN PRN IV 01/09/24 10:00 01/10/24 15:19 2 MG Insulin Human Regular AC SC 01/10/24 17:00 PHYSICAL EXAM: - GENERAL: Alert and oriented x 3. No acute distress. Well-nourished. - EYES: EOMI. Anicteric. - HENT: Moist mucous membranes. No scleral icterus. No cervical lymphadenopathy. - LUNGS: Clear to auscultation bilaterally. No accessory muscle use - CARDIOVASCULAR: Regular rate and rhythm. No murmur. No JVD - ABDOMEN: Soft, non-tender and non-distended. No palpable masses. - EXTREMITIES: No edema. Non-tender.?SKIN: No rashes or lesions. Warm. - NEUROLOGIC: No focal neurological deficits. CN II-XII grossly intact, but not individually tested. - PSYCHIATRIC: Cooperative. Appropriate mood and affect. laboratory and microbiology Laboratory Tests 01/10/24 10:30 Test 01/10/24 10:30 Range/Units Serum Glucose 247 H 74-106 mg/dL Problem List/Assessment/Plan Problem List/Assessment/Plan Assessment/Plan Problems(with codes): (1) Hospital-acquired pneumonia (2) COPD (chronic obstructive pulmonary disease) (3) DKA (diabetic ketoacidosis) (4) HTN (hypertension) (5) Closed right hip fracture Plan/Recommendation ASSESSMENT AND PLAN: ID Problem List: - Aspiration pneumonia - Acute respiratory failure - Diabetic Ketoacidosis (DKA) - Sepsis due to UTI vs pneumonia - Acute Kidney Injury (YULIANA) - Hypernatremia - Transaminitis - Fatty liver - Uncontrolled diabetes (A1C of 11.7) - Hypothyroidism - Hypertension - COPD without exacerbation - Chronic kidney disease (CKD) Assessment: This is a 68-year-old female with a past medical history of diabetes, hypertension, recurrent DKA, hypothyroidism, obesity, COPD, neuropathies, mechanical falls, liver cirrhosis, and multiple joint replacements. The patient presented to the ED with acute loss of consciousness on 11/15/2023, subsequently diagnosed with DKA and an upper GI bleed. While at [facility], a CT and MRI of the head showed concerning lesions for metastasis vs. infectious process and gallbladder issues. Due to renal failure, these images were performed without contrast. An ERCP at [facility] showed no gallstones or common bile duct obstruction. Currently, the patient is reintubated on minimal sedation and receiving broad-spectrum antibiotics for presumed meningitis and other infections. 12/09: Patient has had a repeat abdomen, pelvis, chest Ct with contrast which shows no acute findings in the abdomen and pelvis. multifocal airspace in the lungs was shown. 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 12/12: sp trach 12/13: off sedation 12/19: trach 7l,elevated temps 12/23: Sputal culture is showing normal oral pharyngeal jordan, chest X-ray shows clear lungs, yesterdays X-rays show interstitial edema otherwise clear lungs. Recomend patient continue off antibiotics and just do aspiriations. If fever starts , cosider antibiotics for aspiration pnumonia , suspect Pneumonitis 12/26: Peg tube feeding were stopped , soft abdomen and having bowel movements. Chest X-ray shows mild pulmonary congestion. Otherwise patient is stable with no fevers 12/27: Peg tube is dry and intact. Restarted on [place]. Continues to work on physical therapy 12/29: now on 6 liters of drip , improving , recommend incentive spirometry, continue working with physical therapists and encouraged out of bed 01/02: Chest X-ray shows no significant changes, white count dropped to 1.8 and hemoglobin is 9.7 01/06: white count is up to 12.7 , potentially related to new diet 01/07: leukocytosis resolved Plan: - continue off antibiotics unless fever starts up - sp 3 week vancomycin and ceftriaxone course, will monitor patient off all antibiotics - aspiration precautions - Blood cultures monitoring. - Monitor respiratory status and adjust ventilator settings as necessary. - Monitor and manage blood glucose levels. - Supportive care as needed. Plan discussed with: Patient Dietary Evaluation Review Comments: 1) If GI is accessible consider Glucerna 1.2 @ 55 ml/hr goal rate as tolerated 2) If pt remains NPO >7 days consider TPN to meet at least 75% of estimated needs 3) Advance pt diet when medically feasible to a CCHO 45g/Cardiac diet modified per TELEMARKETING SALES REPRESENTATIVE recommendations 4) Continue current plan of care Expected Outcomes/Goals: 1) Pt to receive nutrition support within 7 days of NPO status 2) Pt diet to advance 3) F/U in 2-3 days NITHIN ANAYA MD Jan 10, 2024 19:59
--- NOTE | 2024-01-10 20:01 | DVHPN2 ---
Consult Progress Note Date Seen: Jan 09, 2024 Subjective Patient reports: Feels better (YOLANDA done) Objective vital signs Vital Sign Date Time Temp Pulse Resp B/P (MAP) Pulse Ox O2 Delivery O2 Flow Rate FiO2 01/10/24 17:06 98.0 80 18 157/77 (103) 99 98.0 01/10/24 14:14 Trach Collar 6 28 Cool Aerosol 28 Total Intake and Output 01/09/24 01/09/24 01/10/24 15:00 23:00 07:00 Intake Total 2050 ml 0 ml Output Total 750 ml 700 ml Balance 1300 ml -700 ml medications Current Medications Medications Dose Ordered Sig/Leslie Route Start Time Stop Time Status Last Admin Dose Admin Metoclopramide HCl 5 mg Q6HPRN PRN IV 12/13/23 21:45 Insulin Glargine 15 units DAILY@1000 SC 12/24/23 13:30 01/08/24 09:26 15 UNITS Gabapentin 100 mg BID PEG 12/26/23 22:00 01/09/24 09:57 100 MG Losartan Potassium 100 mg DAILY PEG 12/28/23 10:00 01/09/24 09:58 100 MG Metoprolol Tartrate 37.5 mg BID PEG 01/02/24 14:15 01/09/24 09:59 37.5 MG Diagnostic Test (Pha) 1 strip IQ4HR 01/07/24 04:00 01/10/24 16:07 1 STRIP Dextrose 50 ml UD PRN IV 01/07/24 02:00 01/10/24 16:18 50 ML Lorazepam 0.5 mg Q4H PRN IV 01/08/24 15:00 01/10/24 17:45 0.5 MG Albuterol 2.5 mg Q8HR NEB 01/08/24 22:00 01/10/24 13:47 2.5 MG Ipratropium [place] 0.5 mg Q8HR NEB 01/08/24 22:00 01/10/24 13:47 0.5 MG Loperamide HCl 2 mg PRN PRN GT 01/08/24 17:15 Sodium Chloride 1,000 ml @ 75 mls/hr [id number] IV 01/08/24 18:15 01/10/24 09:31 75 MLS/HR Melatonin 5 mg HS PO 01/09/24 22:00 Levothyroxine Sodium 112 mcg QAM@0600 PO 01/09/24 06:00 01/09/24 06:55 112 MCG Morphine Sulfate 2 mg Q4HPRN PRN IV 01/09/24 10:00 01/10/24 15:19 2 MG Insulin Human Regular AC SC 01/10/24 17:00 PHYSICAL EXAM: - GENERAL: Alert and oriented x 3. No acute distress. Well-nourished. - EYES: EOMI. Anicteric. - HENT: Moist mucous membranes. No scleral icterus. No cervical lymphadenopathy. - LUNGS: Clear to auscultation bilaterally. No accessory muscle use. - CARDIOVASCULAR: Regular rate and rhythm. No murmur. No JVD. - ABDOMEN: Soft, non-tender and non-distended. No palpable masses. - EXTREMITIES: No edema. Non-tender.?SKIN: No rashes or lesions. Warm. - NEUROLOGIC: No focal neurological deficits. CN II-XII grossly intact, but not individually tested. - PSYCHIATRIC: Cooperative. Appropriate mood and affect. laboratory and microbiology Laboratory Tests 01/10/24 10:30 Test 01/10/24 10:30 Range/Units Serum Glucose 247 H 74-106 mg/dL Problem List/Assessment/Plan Problem List/Assessment/Plan Assessment/Plan Problems(with codes): (1) Hospital-acquired pneumonia (2) COPD (chronic obstructive pulmonary disease) (3) DKA (diabetic ketoacidosis) (4) HTN (hypertension) (5) Closed right hip fracture Plan/Recommendation ASSESSMENT AND PLAN: ID Problem List: - Aspiration pneumonia - Acute respiratory failure - Diabetic Ketoacidosis (DKA) - Sepsis due to UTI vs pneumonia - Acute Kidney Injury (YULIANA) - Hypernatremia - Transaminitis - Fatty liver - Uncontrolled diabetes (A1C of 11.7) - Hypothyroidism - Hypertension - COPD without exacerbation - Chronic kidney disease (CKD) Assessment: This is a 68-year-old female with a past medical history of diabetes, hypertension, recurrent DKA, hypothyroidism, obesity, COPD, neuropathies, mechanical falls, liver cirrhosis, and multiple joint replacements. The patient presented to the ED with acute loss of consciousness on 11/15/2023, subsequently diagnosed with DKA and an upper GI bleed. While at [facility], a CT and MRI of the head showed concerning lesions for metastasis vs. infectious process and gallbladder issues. Due to renal failure, these images were performed without contrast. An ERCP at [facility] showed no gallstones or common bile duct obstruction. Currently, the patient is reintubated on minimal sedation and receiving broad-spectrum antibiotics for presumed meningitis and other infections. 12/09: Patient has had a repeat abdomen, pelvis, chest Ct with contrast which shows no acute findings in the abdomen and pelvis. multifocal airspace in the lungs was shown. 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 12/12: sp trach 12/13: off sedation 12/19: trach 7l,elevated temps 12/23: Sputal culture is showing normal oral pharyngeal jordan, chest X-ray shows clear lungs, yesterdays X-rays show interstitial edema otherwise clear lungs. Recomend patient continue off antibiotics and just do aspiriations. If fever starts , cosider antibiotics for aspiration pnumonia , suspect Pneumonitis 12/26: Peg tube feeding were stopped , soft abdomen and having bowel movements. Chest X-ray shows mild pulmonary congestion. Otherwise patient is stable with no fevers 12/27: Peg tube is dry and intact. Restarted on [place]. Continues to work on physical therapy 12/29: now on 6 liters of drip , improving , recommend incentive spirometry, continue working with physical therapists and encouraged out of bed 01/02: Chest X-ray shows no significant changes, white count dropped to 1.8 and hemoglobin is 9.7 01/06: white count is up to 12.7 , potentially related to new diet 01/07: leukocytosis resolved Plan: - will fu on YOLANDA results - continue off antibiotics unless fever starts up - sp 3 week vancomycin and ceftriaxone course, will monitor patient off all antibiotics - aspiration precautions - Blood cultures monitoring. - Monitor respiratory status and adjust ventilator settings as necessary. - Monitor and manage blood glucose levels. - Supportive care as needed. Plan discussed with: Patient Dietary Evaluation Review Comments: 1) If GI is accessible consider Glucerna 1.2 @ 55 ml/hr goal rate as tolerated 2) If pt remains NPO >7 days consider TPN to meet at least 75% of estimated needs 3) Advance pt diet when medically feasible to a CCHO 45g/Cardiac diet modified per [employer]PER recommendations 4) Continue current plan of care Expected Outcomes/Goals: 1) Pt to receive nutrition support within 7 days of NPO status 2) Pt diet to advance 3) F/U in 2-3 days NITHIN ANAYA MD Jan 10, 2024 20:01
[2024-01-10] MEDS ORDERED: DEXTROSE (50%) 50ML SYRG IV PRN (21:00)
--- NOTE | 2024-01-10 21:33 | DVHPN2 ---
Progress Note - Dictate Date Seen: Jan 10, 2024 Has the PT tested + for MRSA If YES, has PT been informed?: No Medical Necessity Reason Pt with a Central, PICC or Fol: Yes The following are medically ne: PICC Line, Carr Catheter Reason for carr catheter: Strict I&O Subjective Mr. Sanderson is a 68 years old female with a history of hypertension, diabetes, hypothyroidism, COPD, obesity, diabetic polyneuropathy, arthritis, liver cirrhosis, she was transferred back from the [facility] on 12/08/2023 after ERCP. I have seen examined the patient, I have talked to her nurse, she is awake, she is oriented to person, place, she knows year and the month. Not confused today but was confused last night [facility] Neurosurgery consultation: The lesions likely represents infarct, recommend Re attempting MRI spectrography for further evaluation Neuro consultation: Lumbar puncture was not recommended concerning possibility of herniation EEG, 11/28/2023: No seizure/nonconvulsive status epileptics (I did not see report) TTE, 11/29/23: EF: 70-75% (I did not see report) MRI brain (no report): signal abnormality in bilateral cerebellum and right occipital lobe, punctate foci in right parietal lobe and central semiovale- unable to differentiate subacute ischemia 2/2 MR effects versus infection versus metastasis. Recommend contrast enhanced MRI MRI, 12/05/23: No evidence of demyelinating disease (I did not see report) MRI orbital, face, neck ww 12/05/2023, comparison: MR brain 11/28/2023: No evidence of mucormycosis infection. Multiple irregularly enhancing cerebellar and right occipital lesions were better evaluated on recent brain MRI MRI C-spine, 12/05/2023: No evidence of demyelinating disease in the cervical spine. Moderate degenerative changes. Grade 1 anterolisthesis of C7 on T1 MRI lumbar spine wwo, 12/05/2023: No evidence of demyelinating disease in the lumbar spine. Degenerative changes and grade 1 anterolisthesis of L4 and L5. Mild central spinal stenosis at L4-5. [id number] multilevel bilateral foraminal stenosis as described above MRI spectroscopy 12/05/2023: Cerebellar lesion showing moderately elevated Cho, reduced ZINA, large lipid peaks, and additional tics suspicious for amino acids and alanine. The alanine and amino acids are suspicious for an infectious process Treatment according to discharge note: ASA 81mg Qd, Lipitor 20 mg daily Urinalysis, 12/08/2023: WBC: 93, urine leukocyte esterase: 3+ ABG, 12/09/2023: Metabolic acidosis WBC/HB/PLT/MCV, 12/09/2023: 8.5/7.4/350/92.4 PT/INR/PTT, 12/08/2023: 11.4/1.08 Na, 12/08/2023: 147, 12/09/2023: 146, 12/19/2019 4:148 HCO3, 12/08/2023: 23, 12/10/2023: 22, 11/2123: 19, 12/13/23: 18, 12/16/2023: 15, 12/19/2023: 17 CPK, 12/18/2023: 54 TBI/AST/ALT/AP, 12/09/2023: 0.2/40/21/278 TG/HDL/LDL/HDL, 11/2023: 136/96/38/32 Vitamin B12, 11/2023: 2537 TSH, 11/2023: 17.87 YOLANDA, 12/10/2023: n the study done today no evidence of vegetation or masses were discernible. There is mild mitral valve regurgitation with mild anterior leaflet prolapse. No significant intracardiac lesion was discernible Echocardiogram, 11/18/2023: Normal left ventricular size and dimension. Normal left ventricular systolic function estimated ejection fraction 55%. There is a grade 1 diastolic dysfunction. Normal right ventricular size and dimension. Normal right ventricular systolic function. Mildly increased right ventricular systolic pressure 34 mm of mercury. Normal biatrial size and dimension. Normal aortic valve structure and function. Normal mitral valve structure and function. Normal tricuspid valve structure and function. The pulmonary valve is grossly normal. No pericardial effusion. Carotid Doppler, 11/21/2023: 1. No evidence of hemodynamically significant stenosis within the left carotid arterial system. 2. Antegrade flow within the left vertebral artery. 3. Cannot assess the right carotid arterial system due to central line artifact and overlying bandage. Extremity venous study, 12/09/2023: Thrombus in the LEFT cephalic and brachial vein. Thrombus in the RIGHT cephalic and basilic vein.If clinical concern/symptoms persist or worsen, short-interval follow-up study is suggested. Chest x-ray, 12/08/2023: 1. Endotracheal and gastric tubes in place as described. Satisfactory position. 2. Removal of right PICC and right IJ central venous catheter since prior. 3. Mild cardiomegaly and pulmonary vascular congestion. 4. Small opacity in the lateral right lung base which could reflect atelectasis or pneumonia MRI head, 11/21/2023: Signal abnormality in the bilateral cerebellum and right occipital lobe, as well as punctate foci in the right parietal lobe and centrum semiovale. Findings could represent regions of subacute ischemia due to embolic infarcts; however, underlying metastases or infection are not excluded. Recommend contrast-enhanced MRI vital signs Vital Sign Date Time Temp Pulse Resp B/P (MAP) Pulse Ox O2 Delivery O2 Flow Rate FiO2 01/10/24 21:16 114 18 144/66 01/10/24 17:06 98.0 99 98.0 01/10/24 14:14 Trach Collar 6 28 Cool Aerosol 28 Total Intake and Output 01/09/24 01/09/24 01/10/24 15:00 23:00 07:00 Intake Total 2050 ml 0 ml Output Total 750 ml 700 ml Balance 1300 ml -700 ml medications Current Medications Medications Dose Ordered Sig/Leslie Route Start Time Stop Time Status Last Admin Dose Admin Metoclopramide HCl 5 mg Q6HPRN PRN IV 12/13/23 21:45 Insulin Glargine 15 units DAILY@1000 SC 12/24/23 13:30 01/08/24 09:26 15 UNITS Gabapentin 100 mg BID PEG 12/26/23 22:00 01/09/24 09:57 100 MG Losartan Potassium 100 mg DAILY PEG 12/28/23 10:00 01/09/24 09:58 100 MG Metoprolol Tartrate 37.5 mg BID PEG 01/02/24 14:15 01/09/24 09:59 37.5 MG Diagnostic Test (Pha) 1 strip IQ4HR 01/07/24 04:00 01/10/24 16:07 1 STRIP Lorazepam 0.5 mg Q4H PRN IV 01/08/24 15:00 01/10/24 17:45 0.5 MG Albuterol 2.5 mg Q8HR NEB 01/08/24 22:00 01/10/24 20:51 2.5 MG Ipratropium [place] 0.5 mg Q8HR NEB 01/08/24 22:00 01/10/24 20:51 0.5 MG Loperamide HCl 2 mg PRN PRN GT 01/08/24 17:15 Sodium Chloride 1,000 ml @ 75 mls/hr [id number] IV 01/08/24 18:15 01/10/24 09:31 75 MLS/HR Melatonin 5 mg HS PO 01/09/24 22:00 Levothyroxine Sodium 112 mcg QAM@0600 PO 01/09/24 06:00 01/09/24 06:55 112 MCG Morphine Sulfate 2 mg Q4HPRN PRN IV 01/09/24 10:00 01/10/24 21:16 2 MG Insulin Human Regular IQ4HR SC 01/11/24 00:00 UNV Dextrose 50 ml UD PRN IV 01/10/24 21:00 UNV objective The patient is well-nourished and well-developed with no distress. Status post tracheostomy and feeding tube insertion MENTAL STATUS: Subjective CRANIAL NERVES: Pupils are equal, round and reactive, small. There are c onjugated eye movements. No signs of facial weakness. There are no gagging or coughing reflexes during oral care SENSATION: Responses to pain stimuli. MOTOR: Normal tone in the upper and lower extremity. Normal muscle bulk. No fasciculations. Muscle Bear: Arms: Right: 4-5/5, left 4/5. REFLEXES: Deep tendon reflexes are symmetrical. Bilateral upgoing toes CEREBELLAR/COORDINATION: Deferred GAIT/STATION: deferred. laboratory and microbiology Laboratory Tests 01/10/24 10:30 Test 01/10/24 10:30 Range/Units Serum Glucose 247 H 74-106 mg/dL Problem List Abnormal MRI brain scan, likely the patient has multiple stroke Coma Metabolic encephalopathy Hypoxic encephalopathy Multiple strokes Ketoacidosis ICU myopathy, improving Bilateral upper extremity deep venous thrombosis Rule out subacute endocarditis Status post tracheostomy Status post PEG tube Gallstone per ultrasound (01/08/24) Assessment/Plan Monitoring Supportive treatment Respiratory support IV antibiotics Eliquis 2.5 mg b.i.d.(on hold) Up to chair Physical therapy General surgery on case Cardiology on case Infectious disease on case More recommendation per clinical course This medical document was created using an electronic medical record system with [employer] dictation system. Although this document has been carefully reviewed, there may still be some phonetic and typographical errors. These areas are purely typographical due to imperfections of the software programs, and do not reflect any compromise in the patient's medical care. Prognosis poor Dietary Evaluation Review Comments: 1) If GI is accessible consider Glucerna 1.2 @ 55 ml/hr goal rate as tolerated 2) If pt remains NPO >7 days consider TPN to meet at least 75% of estimated needs 3) Advance pt diet when medically feasible to a CCHO 45g/Cardiac diet modified per MAP EDITOR recommendations 4) Continue current plan of care Expected Outcomes/Goals: 1) Pt to receive nutrition support within 7 days of NPO status 2) Pt diet to advance 3) F/U in 2-3 days Plan discussed with: Other DREW FAGAN MD Jan 10, 2024 21:33
--- NOTE | 2024-01-10 21:37 | DVHPN2 ---
Consult Progress Note Date Seen: Jan 10, 2024 Subjective Patient reports: Feels better (underwent TE yesterday and awake and alert today , down to 6 liters on trag) Objective vital signs Vital Sign Date Time Temp Pulse Resp B/P (MAP) Pulse Ox O2 Delivery O2 Flow Rate FiO2 01/10/24 21:16 114 18 144/66 01/10/24 17:06 98.0 99 98.0 01/10/24 14:14 Trach Collar 6 28 Cool Aerosol 28 Total Intake and Output 01/09/24 01/09/24 01/10/24 15:00 23:00 07:00 Intake Total 2050 ml 0 ml Output Total 750 ml 700 ml Balance 1300 ml -700 ml medications Current Medications Medications Dose Ordered Sig/Leslie Route Start Time Stop Time Status Last Admin Dose Admin Metoclopramide HCl 5 mg Q6HPRN PRN IV 12/13/23 21:45 Insulin Glargine 15 units DAILY@1000 SC 12/24/23 13:30 01/08/24 09:26 15 UNITS Gabapentin 100 mg BID PEG 12/26/23 22:00 01/09/24 09:57 100 MG Losartan Potassium 100 mg DAILY PEG 12/28/23 10:00 01/09/24 09:58 100 MG Metoprolol Tartrate 37.5 mg BID PEG 01/02/24 14:15 01/09/24 09:59 37.5 MG Diagnostic Test (Pha) 1 strip IQ4HR 01/07/24 04:00 01/10/24 16:07 1 STRIP Lorazepam 0.5 mg Q4H PRN IV 01/08/24 15:00 01/10/24 17:45 0.5 MG Albuterol 2.5 mg Q8HR NEB 01/08/24 22:00 01/10/24 20:51 2.5 MG Ipratropium [place] 0.5 mg Q8HR NEB 01/08/24 22:00 01/10/24 20:51 0.5 MG Loperamide HCl 2 mg PRN PRN GT 01/08/24 17:15 Sodium Chloride 1,000 ml @ 75 mls/hr [id number] IV 01/08/24 18:15 01/10/24 09:31 75 MLS/HR Melatonin 5 mg HS PO 01/09/24 22:00 Levothyroxine Sodium 112 mcg QAM@0600 PO 01/09/24 06:00 01/09/24 06:55 112 MCG Morphine Sulfate 2 mg Q4HPRN PRN IV 01/09/24 10:00 01/10/24 21:16 2 MG Insulin Human Regular IQ4HR SC 01/11/24 00:00 UNV Dextrose 50 ml UD PRN IV 01/10/24 21:00 UNV PHYSICAL EXAM: - GENERAL: Alert and oriented x 3. No acute distress. Well-nourished. - EYES: EOMI. Anicteric. - HENT: Moist mucous membranes. No scleral icterus. No cervical lymphadenopathy. - LUNGS: Clear to auscultation bilaterally. No accessory muscle use. - CARDIOVASCULAR: Regular rate and rhythm. No murmur. No JVD. - ABDOMEN: Soft, non-tender and non-distended. No palpable masses. - EXTREMITIES: No edema. Non-tender.?SKIN: No rashes or lesions. Warm. - NEUROLOGIC: No focal neurological deficits. CN II-XII grossly intact, but not individually tested. - PSYCHIATRIC: Cooperative. Appropriate mood and affect. laboratory and microbiology Laboratory Tests 01/10/24 10:30 Test 01/10/24 10:30 Range/Units Serum Glucose 247 H 74-106 mg/dL Problem List/Assessment/Plan Problems(with codes): (1) COPD (chronic obstructive pulmonary disease) (2) HTN (hypertension) (3) DKA (diabetic ketoacidosis) (4) Hospital-acquired pneumonia (5) Closed right hip fracture (6) Cholelithiasis and acute cholecystitis without obstruction (7) Elevated liver enzymes Problem List/Assessment/Plan Assessment/Plan Problems(with codes): (1) Hospital-acquired pneumonia (2) COPD (chronic obstructive pulmonary disease) (3) DKA (diabetic ketoacidosis) (4) HTN (hypertension) (5) Closed right hip fracture Plan/Recommendation ASSESSMENT AND PLAN: ID Problem List: - Aspiration pneumonia - Acute respiratory failure - Diabetic Ketoacidosis (DKA) - Sepsis due to UTI vs pneumonia - Acute Kidney Injury (YULIANA) - Hypernatremia - Transaminitis - Fatty liver - Uncontrolled diabetes (A1C of 11.7) - Hypothyroidism - Hypertension - COPD without exacerbation - Chronic kidney disease (CKD) Assessment: This is a 68-year-old female with a past medical history of diabetes, hypertension, recurrent DKA, hypothyroidism, obesity, COPD, neuropathies, mechanical falls, liver cirrhosis, and multiple joint replacements. The patient presented to the ED with acute loss of consciousness on 11/15/2023, subsequently diagnosed with DKA and an upper GI bleed. While at [facility], a CT and MRI of the head showed concerning lesions for metastasis vs. infectious process and gallbladder issues. Due to renal failure, these images were performed without contrast. An ERCP at [facility] showed no gallstones or common bile duct obstruction. Currently, the patient is reintubated on minimal sedation and receiving broad-spectrum antibiotics for presumed meningitis and other infections. 12/09: Patient has had a repeat abdomen, pelvis, chest Ct with contrast which shows no acute findings in the abdomen and pelvis. multifocal airspace in the lungs was shown. 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 12/12: sp trach 12/13: off sedation 12/19: trach 7l,elevated temps 12/23: Sputal culture is showing normal oral pharyngeal jordan, chest X-ray shows clear lungs, yesterdays X-rays show interstitial edema otherwise clear lungs. Recomend patient continue off antibiotics and just do aspiriations. If fever starts , cosider antibiotics for aspiration pnumonia , suspect Pneumonitis 12/26: Peg tube feeding were stopped , soft abdomen and having bowel movements. Chest X-ray shows mild pulmonary congestion. Otherwise patient is stable with no fevers 12/27: Peg tube is dry and intact. Restarted on [place]. Continues to work on physical therapy 12/29: now on 6 liters of drip , improving , recommend incentive spirometry, continue working with physical therapists and encouraged out of bed 01/02: Chest X-ray shows no significant changes, white count dropped to 1.8 and hemoglobin is 9.7 01/06: white count is up to 12.7 , potentially related to new diet 01/07: leukocytosis resolved Plan: - will fu on YOLANDA results - continue off antibiotics unless fever starts up - sp 3 week vancomycin and ceftriaxone course, will monitor patient off all antibiotics - aspiration precautions - Blood cultures monitoring. - Monitor respiratory status and adjust ventilator settings as necessary. - Monitor and manage blood glucose levels. - Supportive care as needed. Plan discussed with: Other Dietary Evaluation Review Comments: 1) If GI is accessible consider Glucerna 1.2 @ 55 ml/hr goal rate as tolerated 2) If pt remains NPO >7 days consider TPN to meet at least 75% of estimated needs 3) Advance pt diet when medically feasible to a CCHO 45g/Cardiac diet modified per [employer]RICIAN recommendations 4) Continue current plan of care Expected Outcomes/Goals: 1) Pt to receive nutrition support within 7 days of NPO status 2) Pt diet to advance 3) F/U in 2-3 days NITHIN ANAYA MD Jan 10, 2024 21:37
[2024-01-11] VITALS (14 sets, daily range): BP systolic 140–182; BP diastolic 64–96; PULSE 63–98; RESP 16–20; TEMP 98.3–100.3; O2SAT 97–100
[2024-01-11] MEDS ORDERED: InsuLIN REG 1unit/0.01ml Soln (100units/ml) SC SCH
[2024-01-11] MEDS ORDERED: Glucerna 1.2 Cal 1Liter BOTTLE GT SCH (09:00)
--- NOTE | 2024-01-11 09:12 | DVHPNRES ---
Progress Note Date Seen: Jan 11, 2024 Resident Creating Document: MAKENNA MARTINEZ RESIDENT Has the PT tested + for MRSA If YES, has PT been informed?: No Medical Necessity Reason Pt with a Central, PICC or Fol: Yes The following are medically ne: PICC Line, Carr Catheter Reason for carr catheter: Strict I&O Subjective Review of Systems A 68 y old female with PMHx of HTN, DM type 2, hypothyroidism, COPD, obesity, liver cirrhosis Home meds: atorvastatin, vit D, glipizide, inuslin aspart and glargine, levothyroxine, lisinoprl, pramipezole, pregabalin She came initially at [facility] on 11/16/2023 for AMS and DKA in this facility she was intubated and transfer to [facility]. Here, a CT scan of the abdomen showed CBD dilation and was sent to [facility] 11/26/2023 for ERCP, which didn't show any obstruction, Also a brain MRI was done showing mulitple old infracts. Patient was again transferred to [facility] 11/28/2023 extubated and On 12/03/2023 patient required reintubation, on 12/12/23: gastrostomy was done and 12/13/23 tracheostomy was done. Cultures: 12/08/23: sputum negative 12/08/23: urine negative 12/09/23: blood culture negative 5 days 12/14/23: urine negative 12/21/23: respiratory culture normal jordan Images: 01/08/24: abdomen US Cholelithiasis with thickened gallbladder wall and pericholecystic fluid. The common bile duct is also dilated. Although the ultrasound Mclain's sign is negative ultrasound findings suggest acute c holecystitis. 16.87 cm liver with findings suggesting steatosis. 12/10/23: Abdomen/ pelvis CT scan No acute findings in the abdomen or pelvis. Multifocal airspace disease. 11/21/23: MRI brain Signal abnormality in the bilateral cerebellum and right occipital lobe, as well as punctate foci in the right parietal lobe and centrum semiovale. Findings could represent regions of subacute ischemia due to embolic infarcts; however, underlying metastases or infection are not excluded 11/21/23: MRCP Distended gallbladder with mild pericholecystic edema and gallbladder wall thickening. No definite gallbladder stones or sludge are present. There is diffuse dilation of the extrahepatic common bile duct measuring up to 1.1 cm. There is no definite appreciable obstructing stone or mass. Small ampullary lesion or stone is not completely excluded. ERCP could be obtained to further evaluate if clinically indicated. Patient is alert and oriented in person, place and time. Speaking sentences, answering all type of questions and working with physical therapy twice a day. Patient passes swallow evaluation 01/06/2024 and is currently tolerating pureed diet. Today the plan is to start decannulation, keep NPO for now Objective vital signs Vital Sign Date Time Temp Pulse Resp B/P (MAP) Pulse Ox O2 Delivery O2 Flow Rate FiO2 01/11/24 06:37 75 15 145/62 01/11/24 05:53 100 01/11/24 05:44 Trach Collar 6.0 01/11/24 05:44 28 28 01/11/24 01:00 98.3 98.3 Total Intake and Output 01/10/24 01/10/24 01/11/24 15:00 23:00 07:00 Intake Total 187 ml 680 ml 220 ml Output Total 600 ml 1000 ml Balance 187 ml 80 ml -780 ml medications Current Medications Medications Dose Ordered Sig/Leslie Route Start Time Stop Time Status Last Admin Dose Admin Metoclopramide HCl 5 mg Q6HPRN PRN IV 12/13/23 21:45 Insulin Glargine 15 units DAILY@1000 SC 12/24/23 13:30 01/08/24 09:26 15 UNITS Gabapentin 100 mg BID PEG 12/26/23 22:00 01/09/24 09:57 100 MG Losartan Potassium 100 mg DAILY PEG 12/28/23 10:00 01/09/24 09:58 100 MG Metoprolol Tartrate 37.5 mg BID PEG 01/02/24 14:15 01/09/24 09:59 37.5 MG Diagnostic Test (Pha) 1 strip IQ4HR 01/07/24 04:00 01/11/24 04:02 1 STRIP Lorazepam 0.5 mg Q4H PRN IV 01/08/24 15:00 01/11/24 00:32 0.5 MG Albuterol 2.5 mg Q8HR NEB 01/08/24 22:00 01/11/24 05:43 2.5 MG Ipratropium [place] 0.5 mg Q8HR NEB 01/08/24 22:00 01/11/24 05:43 0.5 MG Loperamide HCl 2 mg PRN PRN GT 01/08/24 17:15 Sodium Chloride 1,000 ml @ 75 mls/hr [id number] IV 01/08/24 18:15 01/11/24 06:21 75 MLS/HR Melatonin 5 mg HS PO 01/09/24 22:00 Levothyroxine Sodium 112 mcg QAM@0600 PO 01/09/24 06:00 01/09/24 06:55 112 MCG Morphine Sulfate 2 mg Q4HPRN PRN IV 01/09/24 10:00 01/11/24 06:07 2 MG Dextrose 50 ml UD PRN IV 01/10/24 21:00 Insulin Human Regular IQ4HR SC 01/11/24 00:00 01/10/24 23:54 10 UNITS Examination Alert Breathing on room air sat 94% HEENT: Normocephalic, atraumatic, moist mucous membranes, trach tube on place. Respiratory/pulmonary: Bilateral lung sounds grossly clear, Cardiovascular: Regular heart sounds S1 and S2 with no associated murmurs. Abdomen: Abdomen nondistended, there is mild pain to palpation to the epigastric region, no palpable masses. PEG tube on place with no signs in infection at this time. Extremities: There are no peripheral edema at this time. There is increase in motor strength in all 4 extremities and patient is now able to move lower extremities. laboratory and microbiology Test 01/11/24 09:00 Range/Units Serum Glucose Pending Microbiology Date/Time Source Procedure Growth Status 12/21/23 09:42 Trachea Gram Stain - Final Complete 12/21/23 09:42 Respiratory Culture - Final Yeast, not [place] albicans Complete 12/14/23 19:42 Voided Urine Urine Culture - Final Complete 12/09/23 09:28 Blood Blood Culture - Final NO GROWTH AFTER 5 DAYS OF INCUBATION. 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 #Hypertensive heart disease on acute on chronic diastolic heart failure -Continue losartan 50mg QD -Continue metoprolol 25mg PO BID Respiratory #S/P tracheostomy (12/13/23) -Trach tube was downsized on 01/03/24 from 8.5 to a 6.0 fenestrated cuff trach tube Today decannulation process failed Continue puree diet Patient has g tube #Acute hypoxic respiratory failure likely in the setting of aspiration pneumonia No antibiotics according to ID Swallow evaluation 01/06/2024: patient is tolerate puree and nectar Infectious disease #Sepsis likely due to aspiration pneumonia and UTI resolved -Completed antibiotic treatment #Acute cholecystitis Patient is poor candidate for elective procedures, no need of emergency procedures at the time Patient WBC is trending high, zosyn is started HIDA scan is ordered Endocrinology Type 2 diabetes mellitus, DKA on previous admissions -Continue mild sliding scale insulin -Continue Lantus 15 units q.a.m. Hypothyroidism -Continue levothyroxine 112mcgQAM Gastroenterology #s/p g tube #Acute cholecystitis Patient is poor candidate for elective procedures, no need of emergency procedures at the time Patient WBC is trending high, zosyn is started HIDA scan is ordered #Hepatic steatosis #Dilated CBD #Acute transaminitis Hematology Superficial thrombophlebitis of right cephalic and basilic veins -no need for anticoagulation NO SONOGRAPHIC EVIDENCE FOR DEEP VENOUS THROMBOSIS IN THE LEFT UPPER EXTREMITY VEINS. Nephrology YULIANA likely due to VMN resolving -Monitor kidney function Nutrition Continue puree diet Continue physical therapy to twice a day Lines: PICC line on left upper arm placed on 12/09/2023 Goals of care discussed with the patient for 25 min Plan discussed with Dr. Razo Plan discussed with: Patient, Other (rn) My Orders My Orders Orders - MAKENNA MARTINEZ Procedure Category Date Status Time Complete Blood Count LAB 01/11/24 In Process 05:26 Comprehensive LAB 01/11/24 In Process Metabolic Panel 05:26 Pantoprazole PHA 01/11/24 Logged (Protonix) 10:00 Nutritional PHA 01/11/24 Logged Supplements (Glucerna 09:00 Dietary Evaluation Review Comments: 1) If GI is accessible consider Glucerna 1.2 @ 55 ml/hr goal rate as tolerated 2) If pt remains NPO >7 days consider TPN to meet at least 75% of estimated needs 3) Advance pt diet when medically feasible to a CCHO 45g/Cardiac diet modified per [employer] recommendations 4) Continue current plan of care Expected Outcomes/Goals: 1) Pt to receive nutrition support within 7 days of NPO status 2) Pt diet to advance 3) F/U in 2-3 days Date of Service: Jan 11, 2024 Billing Provider: FREEDOM RAZO MD Common Visit Codes: [id number] INP/OBS CARE(HIGH) MAKENNA MARTINEZ RESIDENT Jan 11, 2024 09:12 FREEDOM RAZO MD Jan 12, 2024 14:50
[2024-01-11 09:25] LABS: Basophils # (auto) 0.1 10 ^3/uL (0-0.2); Basophils % (auto) 0.4 % (0.0-2.0); Eosinophils # (auto) 0.3 10 ^3/uL (0-0.8); Eosinophils % (auto) 2.4 % (0.0-7.0); Hematocrit 30.6 % (36.0-46.0); Hemoglobin 9.6 g/dL (12.2-16.2); Lymphocytes # (auto) 2.4 10 ^3/uL (0.4-5.4); Lymphocytes % (auto) 20.7 % (10.0-50.0); Mean Corpuscular Hemoglobin 27.2 pg (28.0-32.0); Mean Corpuscular Hgb Conc. 31.3 g/dL (32.0-36.0); Mean Corpuscular Volume 86.9 fL (80.0-100.0); Monocytes # (auto) 0.5 10 ^3/uL (0-1.3); Monocytes % (auto) 4.5 % (0.0-12.0); Neutrophils # (auto) 8.4 10 ^3/uL (1.6-8.6); Platelet Count (auto) 413 10^3/uL (140-450); Red Blood Cells 3.53 10^6/uL (4.0-5.20); Red Cell Distribution Width 16.4 % (11.8-14.3); White Blood Cell 11.6 10^3/uL (4.4-10.8)
[2024-01-11 09:42] LABS: Alanine Aminotransferase 155 U/L (7-40); Albumin 3.6 g/dL (3.2-4.8); Alkaline Phosphatase 862 U/L (46-116); Anion Gap 11 (5-15); Aspartate Aminotransferase 63 U/L (13-40); BUN/Creatinine Ratio 13.8 (10.0-20.0); Bilirubin, Total 0.4 mg/dL (0.2-1.0); Blood Urea Nitrogen 11 mg/dL (9-23); Calcium 9.6 mg/dL (8.7-10.4); Carbon Dioxide 17 mmol/L (20-31); Chloride 103 mmol/L (98-107); Glucose 393 mg/dL (74-106); Potassium 4.4 mmol/L (3.5-5.1); Sodium 131 mmol/L (136-145); Total Protein 6.3 g/dL (5.7-8.2)
[2024-01-11] MEDS: PANTOPRAZOLE 40 MG/10 ML VIAL INJ IV SCH (09:43)
[2024-01-11] MEDS: PIPERACILLIN-TAZOB 3.375GM 100 ML IV ONE (13:18)
--- NOTE | 2024-01-11 18:22 | DVHPN2 ---
Consult Progress Note Date Seen: Jan 11, 2024 Subjective Patient reports: No new complaints (alert and awake, in no pain ) Objective vital signs Vital Sign Date Time Temp Pulse Resp B/P (MAP) Pulse Ox O2 Delivery O2 Flow Rate FiO2 01/11/24 16:28 98.7 63 18 166/76 (106) 97 98.7 01/11/24 13:06 Trach Collar 6.0 01/11/24 13:06 28 28 Total Intake and Output 01/10/24 01/10/24 01/11/24 14:59 22:59 06:59 Intake Total 187 ml 680 ml 220 ml Output Total 600 ml 1000 ml Balance 187 ml 80 ml -780 ml medications Current Medications Medications Dose Ordered Sig/Leslie Route Start Time Stop Time Status Last Admin Dose Admin Metoclopramide HCl 5 mg Q6HPRN PRN IV 12/13/23 21:45 Insulin Glargine 15 units DAILY@1000 SC 12/24/23 13:30 01/11/24 12:12 15 UNITS Gabapentin 100 mg BID PEG 12/26/23 22:00 01/11/24 09:43 100 MG Losartan Potassium 100 mg DAILY PEG 12/28/23 10:00 01/11/24 09:44 100 MG Metoprolol Tartrate 37.5 mg BID PEG 01/02/24 14:15 01/11/24 09:43 37.5 MG Diagnostic Test (Pha) 1 strip IQ4HR 01/07/24 04:00 01/11/24 17:14 1 STRIP Lorazepam 0.5 mg Q4H PRN IV 01/08/24 15:00 01/11/24 17:09 0.5 MG Albuterol 2.5 mg Q8HR NEB 01/08/24 22:00 01/11/24 13:06 2.5 MG Ipratropium [place] 0.5 mg Q8HR NEB 01/08/24 22:00 01/11/24 13:06 0.5 MG Loperamide HCl 2 mg PRN PRN GT 01/08/24 17:15 Melatonin 5 mg HS PO 01/09/24 22:00 Levothyroxine Sodium 112 mcg QAM@0600 PO 01/09/24 06:00 01/09/24 06:55 112 MCG Morphine Sulfate 2 mg Q4HPRN PRN IV 01/09/24 10:00 01/11/24 15:00 2 MG Dextrose 50 ml UD PRN IV 01/10/24 21:00 Insulin Human Regular IQ4HR SC 01/11/24 00:00 01/11/24 17:14 4 UNITS Pantoprazole Sodium 40 mg DAILY IV 01/11/24 10:00 01/11/24 09:43 40 MG Enteral Nutritional Formula 1,000 ml 30ML/HR GT 01/11/24 09:00 Piperacillin Sod/ Tazobactam Sod 100 ml @ 25 mls/hr Q8HR IV 01/11/24 22:00 PHYSICAL EXAM: - GENERAL: Alert and oriented x 3. No acute distress. Well-nourished. - EYES: EOMI. Anicteric. - HENT: Moist mucous membranes. No scleral icterus. No cervical lymphadenopathy. - LUNGS: Clear to auscultation bilaterally. No accessory muscle use. - CARDIOVASCULAR: Regular rate and rhythm. No murmur. No JVD. - ABDOMEN: Soft, non-tender and non-distended. No palpable masses. - EXTREMITIES: No edema. Non-tender.?SKIN: No rashes or lesions. Warm. - NEUROLOGIC: No focal neurological deficits. CN II-XII grossly intact, but not individually tested. - PSYCHIATRIC: Cooperative. Appropriate mood and affect. laboratory and microbiology Laboratory Tests 01/11/24 09:00 Test 01/11/24 09:00 Range/Units Serum Glucose 393 H 74-106 mg/dL Problem List/Assessment/Plan Problems(with codes): (1) COPD (chronic obstructive pulmonary disease) (2) HTN (hypertension) (3) DKA (diabetic ketoacidosis) (4) Hospital-acquired pneumonia (5) Closed right hip fracture (6) Cholelithiasis and acute cholecystitis without obstruction (7) Elevated liver enzymes Problem List/Assessment/Plan Assessment/Plan Problems(with codes): (1) Hospital-acquired pneumonia (2) COPD (chronic obstructive pulmonary disease) (3) DKA (diabetic ketoacidosis) (4) HTN (hypertension) (5) Closed right hip fracture Plan/Recommendation ASSESSMENT AND PLAN: ID Problem List: - Aspiration pneumonia - Acute respiratory failure - Diabetic Ketoacidosis (DKA) - Sepsis due to UTI vs pneumonia - Acute Kidney Injury (YULIANA) - Hypernatremia - Transaminitis - Fatty liver - Uncontrolled diabetes (A1C of 11.7) - Hypothyroidism - Hypertension - COPD without exacerbation - Chronic kidney disease (CKD) Assessment: This is a 68-year-old female with a past medical history of diabetes, hypertension, recurrent DKA, hypothyroidism, obesity, COPD, neuropathies, mechanical falls, liver cirrhosis, and multiple joint replacements. The patient presented to the ED with acute loss of consciousness on 11/15/2023, subsequently diagnosed with DKA and an upper GI bleed. While at [facility], a CT and MRI of the head showed concerning lesions for metastasis vs. infectious process and gallbladder issues. Due to renal failure, these images were performed without contrast. An ERCP at [facility] showed no gallstones or common bile duct obstruction. Currently, the patient is reintubated on minimal sedation and receiving broad-spectrum antibiotics for presumed meningitis and other infections. 12/09: Patient has had a repeat abdomen, pelvis, chest Ct with contrast which shows no acute findings in the abdomen and pelvis. multifocal airspace in the lungs was shown. 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 12/12: sp trach 12/13: off sedation 12/19: trach 7l,elevated temps 12/23: Sputal culture is showing normal oral pharyngeal jordan, chest X-ray shows clear lungs, yesterdays X-rays show interstitial edema otherwise clear lungs. Recomend patient continue off antibiotics and just do aspiriations. If fever starts , cosider antibiotics for aspiration pnumonia , suspect Pneumonitis 12/26: Peg tube feeding were stopped , soft abdomen and having bowel movements. Chest X-ray shows mild pulmonary congestion. Otherwise patient is stable with no fevers 12/27: Peg tube is dry and intact. Restarted on [place]. Continues to work on physical therapy 12/29: now on 6 liters of drip , improving , recommend incentive spirometry, continue working with physical therapists and encouraged out of bed 01/02: Chest X-ray shows no significant changes, white count dropped to 1.8 and hemoglobin is 9.7 01/06: white count is up to 12.7 , potentially related to new diet 01/07: leukocytosis resolved 01/09: Lesli Medeiros has determined that patient is not surgical Plan: - will fu on YOLANDA results - continue off antibiotics unless fever starts up - sp 3 week vancomycin and ceftriaxone course, will monitor patient off all antibiotics - aspiration precautions - Blood cultures monitoring. - Monitor respiratory status and adjust ventilator settings as necessary. - Monitor and manage blood glucose levels. - Supportive care as needed. Plan discussed with: Other Dietary Evaluation Review Comments: 1) If GI is accessible consider Glucerna 1.2 @ 55 ml/hr goal rate as tolerated 2) If pt remains NPO >7 days consider TPN to meet at least 75% of estimated needs 3) Advance pt diet when medically feasible to a CCHO 45g/Cardiac diet modified per [employer] recommendations 4) Continue current plan of care Expected Outcomes/Goals: 1) Pt to receive nutrition support within 7 days of NPO status 2) Pt diet to advance 3) F/U in 2-3 days NITHIN ANAYA MD Jan 11, 2024 18:22
--- NOTE | 2024-01-11 20:37 | DVHPN2 ---
Progress Note - Dictate Date Seen: Jan 11, 2024 Has the PT tested + for MRSA If YES, has PT been informed?: No Medical Necessity Reason Pt with a Central, PICC or Fol: Yes The following are medically ne: PICC Line, Carr Catheter Reason for carr catheter: Strict I&O Subjective Patient seen at bedside Resting comfortably Abdominal pain is improved Liver enzymes trending down vital signs Vital Sign Date Time Temp Pulse Resp B/P (MAP) Pulse Ox O2 Delivery O2 Flow Rate FiO2 01/11/24 16:28 98.7 63 18 166/76 (106) 97 98.7 01/11/24 13:06 Trach Collar 6.0 01/11/24 13:06 28 28 Total Intake and Output 01/10/24 01/10/24 01/11/24 14:59 22:59 06:59 Intake Total 187 ml 680 ml 220 ml Output Total 600 ml 1000 ml Balance 187 ml 80 ml -780 ml medications Current Medications Medications Dose Ordered Sig/Leslie Route Start Time Stop Time Status Last Admin Dose Admin Metoclopramide HCl 5 mg Q6HPRN PRN IV 12/13/23 21:45 Insulin Glargine 15 units DAILY@1000 SC 12/24/23 13:30 01/11/24 12:12 15 UNITS Gabapentin 100 mg BID PEG 12/26/23 22:00 01/11/24 09:43 100 MG Losartan Potassium 100 mg DAILY PEG 12/28/23 10:00 01/11/24 09:44 100 MG Metoprolol Tartrate 37.5 mg BID PEG 01/02/24 14:15 01/11/24 09:43 37.5 MG Diagnostic Test (Pha) 1 strip IQ4HR 01/07/24 04:00 01/11/24 20:27 1 STRIP Lorazepam 0.5 mg Q4H PRN IV 01/08/24 15:00 01/11/24 17:09 0.5 MG Albuterol 2.5 mg Q8HR NEB 01/08/24 22:00 01/11/24 13:06 2.5 MG Ipratropium [place] 0.5 mg Q8HR NEB 01/08/24 22:00 01/11/24 13:06 0.5 MG Loperamide HCl 2 mg PRN PRN GT 01/08/24 17:15 Melatonin 5 mg HS PO 01/09/24 22:00 Levothyroxine Sodium 112 mcg QAM@0600 PO 01/09/24 06:00 01/09/24 06:55 112 MCG Morphine Sulfate 2 mg Q4HPRN PRN IV 01/09/24 10:00 01/11/24 15:00 2 MG Dextrose 50 ml UD PRN IV 01/10/24 21:00 Insulin Human Regular IQ4HR SC 01/11/24 00:00 01/11/24 20:31 4 UNITS Pantoprazole Sodium 40 mg DAILY IV 01/11/24 10:00 01/11/24 09:43 40 MG Enteral Nutritional Formula 1,000 ml 30ML/HR GT 01/11/24 09:00 Piperacillin Sod/ Tazobactam Sod 100 ml @ 25 mls/hr Q8HR IV 01/11/24 22:00 objective General Appearance: Alert and awake no distress Lungs: Clear to auscultation, tracheostomy collar Cardiovascular: Regular rate, Normal S1, Normal S2 Abdomen: Normal bowel sounds, Soft, NT obese PEG tube Extremities: No edema laboratory and microbiology Laboratory Tests 01/11/24 09:00 Test 01/11/24 09:00 Range/Units Serum Glucose 393 H 74-106 mg/dL Problems(with codes): (1) Elevated liver enzymes (2) Cholelithiasis and acute cholecystitis without obstruction (3) Closed right hip fracture (4) Hospital-acquired pneumonia (5) DKA (diabetic ketoacidosis) Prognosis Plan Patient was taken off antibiotics Awaiting YOLANDA results Monitor labs Prognosis remains guarded I will follow as needed Dietary Evaluation Review Comments: 1) If GI is accessible consider Glucerna 1.2 @ 55 ml/hr goal rate as tolerated 2) If pt remains NPO >7 days consider TPN to meet at least 75% of estimated needs 3) Advance pt diet when medically feasible to a CCHO 45g/Cardiac diet modified per [employer] recommendations 4) Continue current plan of care Expected Outcomes/Goals: 1) Pt to receive nutrition support within 7 days of NPO status 2) Pt diet to advance 3) F/U in 2-3 days Plan discussed with: Patient YOLIE FIREDMAN MD Jan 11, 2024 20:37
[2024-01-11] MEDS: PIPERACILLIN-TAZOB 3.375GM 100 ML IV SCH (22:48)
[2024-01-12] VITALS (14 sets, daily range): BP systolic 110–181; BP diastolic 51–85; PULSE 56–79; RESP 14–20; TEMP 98.4–99.2; O2SAT 92–100
[2024-01-12 08:46] LABS: Basophils # (auto) 0.2 10 ^3/uL (0-0.2); Basophils % (auto) 1.4 % (0.0-2.0); Eosinophils # (auto) 0.6 10 ^3/uL (0-0.8); Hematocrit 32.2 % (36.0-46.0); Hemoglobin 10.3 g/dL (12.2-16.2); Lymphocytes # (auto) 4.1 10 ^3/uL (0.4-5.4); Lymphocytes % (auto) 36.4 % (10.0-50.0); Mean Corpuscular Hemoglobin 27.7 pg (28.0-32.0); Mean Corpuscular Hgb Conc. 31.9 g/dL (32.0-36.0); Mean Corpuscular Volume 86.9 fL (80.0-100.0); Monocytes # (auto) 0.8 10 ^3/uL (0-1.3); Monocytes % (auto) 6.6 % (0.0-12.0); Neutrophils # (auto) 5.8 10 ^3/uL (1.6-8.6); Neutrophils % (auto) 50.6 % (37.0-80.0); Nucleated Red Blood Cells % 0.1 %; Platelet Count (auto) 403 10^3/uL (140-450); Red Blood Cells 3.71 10^6/uL (4.0-5.20); Red Cell Distribution Width 16.7 % (11.8-14.3); White Blood Cell 11.4 10^3/uL (4.4-10.8)
[2024-01-12 09:04] LABS: Alanine Aminotransferase 111 U/L (7-40); Albumin 3.6 g/dL (3.2-4.8); Alkaline Phosphatase 737 U/L (46-116)
[2024-01-12 09:05] LABS: Anion Gap 8 (5-15); Aspartate Aminotransferase 32 U/L (13-40); BUN/Creatinine Ratio 9.2 (10.0-20.0); Bilirubin, Total 0.4 mg/dL (0.2-1.0); Blood Urea Nitrogen 7 mg/dL (9-23); Carbon Dioxide 21 mmol/L (20-31); Chloride 105 mmol/L (98-107); Glucose 103 mg/dL (74-106); Potassium 4.1 mmol/L (3.5-5.1); Sodium 134 mmol/L (136-145); Total Protein 6.7 g/dL (5.7-8.2)
[2024-01-12] MEDS: InsuLIN REG 1unit/0.01ml Soln (100units/ml) SC SCH (18:00)
[2024-01-12] MEDS: ACCU-CHEK COMFORT CURVE STRIP VI SCH (18:15)
--- NOTE | 2024-01-12 20:49 | DVHPN2 ---
Consult Progress Note Date Seen: Jan 12, 2024 Subjective Patient reports: No new complaints (awaiting placement , feeding tube placed yesterday ) Objective vital signs Vital Sign Date Time Temp Pulse Resp B/P (MAP) Pulse Ox O2 Delivery O2 Flow Rate FiO2 01/12/24 17:06 99.2 73 17 154/79 (104) 98 99.2 01/12/24 13:17 Cool Aerosol 6 N/A Total Intake and Output 01/11/24 01/11/24 01/12/24 15:00 23:00 07:00 Intake Total 615 ml 205 ml Output Total 1375 ml 1000 ml Balance -760 ml -795 ml medications Current Medications Medications Dose Ordered Sig/Leslie Route Start Time Stop Time Status Last Admin Dose Admin Metoclopramide HCl 5 mg Q6HPRN PRN IV 12/13/23 21:45 Insulin Glargine 15 units DAILY@1000 SC 12/24/23 13:30 01/12/24 09:52 15 UNITS Gabapentin 100 mg BID PEG 12/26/23 22:00 01/12/24 09:28 100 MG Losartan Potassium 100 mg DAILY PEG 12/28/23 10:00 01/12/24 09:27 100 MG Metoprolol Tartrate 37.5 mg BID PEG 01/02/24 14:15 01/12/24 09:28 37.5 MG Lorazepam 0.5 mg Q4H PRN IV 01/08/24 15:00 01/11/24 17:09 0.5 MG Albuterol 2.5 mg Q8HR NEB 01/08/24 22:00 01/12/24 13:17 2.5 MG Ipratropium [place] 0.5 mg Q8HR NEB 01/08/24 22:00 01/12/24 13:17 0.5 MG Loperamide HCl 2 mg PRN PRN GT 01/08/24 17:15 Melatonin 5 mg HS PO 01/09/24 22:00 01/11/24 22:48 5 MG Levothyroxine Sodium 112 mcg QAM@0600 PO 01/09/24 06:00 01/12/24 06:24 112 MCG Morphine Sulfate 2 mg Q4HPRN PRN IV 01/09/24 10:00 01/12/24 15:21 2 MG Dextrose 50 ml UD PRN IV 01/10/24 21:00 Pantoprazole Sodium 40 mg DAILY IV 01/11/24 10:00 01/12/24 09:27 40 MG Enteral Nutritional Formula 1,000 ml 30ML/HR GT 01/11/24 09:00 Piperacillin Sod/ Tazobactam Sod 100 ml @ 25 mls/hr Q8HR IV 01/11/24 22:00 01/12/24 15:22 25 MLS/HR Insulin Human Regular Q6HP SC 01/12/24 18:00 Diagnostic Test (Pha) 1 strip Q6HR 01/12/24 18:15 01/12/24 18:15 1 STRIP PHYSICAL EXAM: - GENERAL: Alert and oriented x 3. No acute distress. Well-nourished. - EYES: EOMI. Anicteric. - HENT: Moist mucous membranes. No scleral icterus. No cervical lymphadenopathy. - LUNGS: Clear to auscultation bilaterally. No accessory muscle use. - CARDIOVASCULAR: Regular rate and rhythm. No murmur. No JVD. - ABDOMEN: Soft, non-tender and non-distended. No palpable masses. - EXTREMITIES: No edema. Non-tender.?SKIN: No rashes or lesions. Warm. - NEUROLOGIC: No focal neurological deficits. CN II-XII grossly intact, but not individually tested. - PSYCHIATRIC: Cooperative. Appropriate mood and affect. laboratory and microbiology Laboratory Tests 01/12/24 08:16 Test 01/12/24 08:16 Range/Units Serum Glucose 103 74-106 mg/dL Problem List/Assessment/Plan Problems(with codes): (1) COPD (chronic obstructive pulmonary disease) (2) HTN (hypertension) (3) DKA (diabetic ketoacidosis) (4) Hospital-acquired pneumonia (5) Closed right hip fracture (6) Cholelithiasis and acute cholecystitis without obstruction (7) Elevated liver enzymes Problem List/Assessment/Plan Assessment/Plan Problems(with codes): (1) Hospital-acquired pneumonia (2) COPD (chronic obstructive pulmonary disease) (3) DKA (diabetic ketoacidosis) (4) HTN (hypertension) (5) Closed right hip fracture Plan/Recommendation ASSESSMENT AND PLAN: ID Problem List: - Aspiration pneumonia - Acute respiratory failure - Diabetic Ketoacidosis (DKA) - Sepsis due to UTI vs pneumonia - Acute Kidney Injury (YULIANA) - Hypernatremia - Transaminitis - Fatty liver - Uncontrolled diabetes (A1C of 11.7) - Hypothyroidism - Hypertension - COPD without exacerbation - Chronic kidney disease (CKD) Assessment: This is a 68-year-old female with a past medical history of diabetes, hypertension, recurrent DKA, hypothyroidism, obesity, COPD, neuropathies, mechanical falls, liver cirrhosis, and multiple joint replacements. The patient presented to the ED with acute loss of consciousness on 11/15/2023, subsequently diagnosed with DKA and an upper GI bleed. While at [facility], a CT and MRI of the head showed concerning lesions for metastasis vs. infectious process and gallbladder issues. Due to renal failure, these images were performed without contrast. An ERCP at [facility] showed no gallstones or common bile duct obstruction. Currently, the patient is reintubated on minimal sedation and receiving broad-spectrum antibiotics for presumed meningitis and other infections. 12/09: Patient has had a repeat abdomen, pelvis, chest Ct with contrast which shows no acute findings in the abdomen and pelvis. multifocal airspace in the lungs was shown. 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 12/12: sp trach 12/13: off sedation 12/19: trach 7l,elevated temps 12/23: Sputal culture is showing normal oral pharyngeal jordan, chest X-ray shows clear lungs, yesterdays X-rays show interstitial edema otherwise clear lungs. Recomend patient continue off antibiotics and just do aspiriations. If fever starts , cosider antibiotics for aspiration pnumonia , suspect Pneumonitis 12/26: Peg tube feeding were stopped , soft abdomen and having bowel movements. Chest X-ray shows mild pulmonary congestion. Otherwise patient is stable with no fevers 12/27: Peg tube is dry and intact. Restarted on [place]. Continues to work on physical therapy 12/29: now on 6 liters of drip , improving , recommend incentive spirometry, continue working with physical therapists and encouraged out of bed 01/02: Chest X-ray shows no significant changes, white count dropped to 1.8 and hemoglobin is 9.7 01/06: white count is up to 12.7 , potentially related to new diet 01/07: leukocytosis resolved 01/09: Lesli Medeiros has determined that patient is not surgical 01/11: feeding tube placed yesterday Plan: - will fu on YOLANDA results - continue off antibiotics unless fever starts up - sp 3 week vancomycin and ceftriaxone course, will monitor patient off all antibiotics - aspiration precautions - Blood cultures monitoring. - Monitor respiratory status and adjust ventilator settings as necessary. - Monitor and manage blood glucose levels. - Supportive care as needed. Plan discussed with: Other Dietary Evaluation Review Comments: 1) If GI is accessible consider Glucerna 1.2 @ 55 ml/hr goal rate as tolerated 2) If pt remains NPO >7 days consider TPN to meet at least 75% of estimated needs 3) Advance pt diet when medically feasible to a CCHO 45g/Cardiac diet modified per ECONOMIC DEVELOPMENT DIRECTOR recommendations 4) Continue current plan of care Expected Outcomes/Goals: 1) Pt to receive nutrition support within 7 days of NPO status 2) Pt diet to advance 3) F/U in 2-3 days NITHIN ANAYA MD Jan 12, 2024 20:49
--- NOTE | 2024-01-12 21:07 | DVHPNRES ---
Progress Note Date Seen: Jan 12, 2024 Resident Creating Document: MAKENNA MARTINEZ RESIDENT Has the PT tested + for MRSA If YES, has PT been informed?: No Medical Necessity Reason Pt with a Central, PICC or Fol: Yes The following are medically ne: PICC Line, Carr Catheter Reason for carr catheter: Strict I&O Subjective Review of Systems A 68 y old female with PMHx of HTN, DM type 2, hypothyroidism, COPD, obesity, liver cirrhosis Home meds: atorvastatin, vit D, glipizide, inuslin aspart and glargine, levothyroxine, lisinoprl, pramipezole, pregabalin She came initially at [facility] on 11/16/2023 for AMS and DKA in this facility she was intubated and transfer to [facility]. Here, a CT scan of the abdomen showed CBD dilation and was sent to [facility] 11/26/2023 for ERCP, which didn't show any obstruction, Also a brain MRI was done showing mulitple old infracts. Patient was again transferred to [facility] 11/28/2023 extubated and On 12/03/2023 patient required reintubation, on 12/12/23: gastrostomy was done and 12/13/23 tracheostomy was done. Cultures: 12/08/23: sputum negative 12/08/23: urine negative 12/09/23: blood culture negative 5 days 12/14/23: urine negative 12/21/23: respiratory culture normal jordan Images: 01/08/24: abdomen US Cholelithiasis with thickened gallbladder wall and pericholecystic fluid. The common bile duct is also dilated. Although the ultrasound Mclain's sign is negative ultrasound findings suggest acute cholecystitis. 16.87 cm liver with findings suggesting steatosis. 12/10/23: Abdomen/ pelvis CT scan No acute findings in the abdomen or pelvis. Multifocal airspace disease. 11/21/23: MRI brain Signal abnormality in the bilateral cerebellum and right occipital lobe, as well as punctate foci in the right parietal lobe and centrum semiovale. Findings could represent regions of subacute ischemia due to embolic infarcts; however, underlying metastases or infection are not excluded 11/21/23: MRCP Distended gallbladder with mild pericholecystic edema and gallbladder wall thickening. No definite gallbladder stones or sludge are present. There is diffuse dilation of the extrahepatic common bile duct measuring up to 1.1 cm. There is no definite appreciable obstructing stone or mass. Small ampullary lesion or stone is not completely excluded. ERCP could be obtained to further evaluate if clinically indicated. Patient is alert and oriented in person, place and time. Speaking sentences, answering all type of questions and working with physical therapy twice a day. Patient passes swallow evaluation 01/06/2024 and is currently tolerating pureed diet. Today we started the tracheostomy speaking valve Objective vital signs Vital Sign Date Time Temp Pulse Resp B/P (MAP) Pulse Ox O2 Delivery O2 Flow Rate FiO2 01/12/24 17:06 99.2 73 17 154/79 (104) 98 99.2 01/12/24 13:17 Cool Aerosol 6 N/A Total Intake and Output 01/11/24 01/11/24 01/12/24 15:00 23:00 07:00 Intake Total 615 ml 205 ml Output Total 1375 ml 1000 ml Balance -760 ml -795 ml medications Current Medications Medications Dose Ordered Sig/Leslie Route Start Time Stop Time Status Last Admin Dose Admin Metoclopramide HCl 5 mg Q6HPRN PRN IV 12/13/23 21:45 Insulin Glargine 15 units DAILY@1000 SC 12/24/23 13:30 01/12/24 09:52 15 UNITS Gabapentin 100 mg BID PEG 12/26/23 22:00 01/12/24 09:28 100 MG Losartan Potassium 100 mg DAILY PEG 12/28/23 10:00 01/12/24 09:27 100 MG Metoprolol Tartrate 37.5 mg BID PEG 01/02/24 14:15 01/12/24 09:28 37.5 MG Lorazepam 0.5 mg Q4H PRN IV 01/08/24 15:00 01/11/24 17:09 0.5 MG Albuterol 2.5 mg Q8HR NEB 01/08/24 22:00 01/12/24 13:17 2.5 MG Ipratropium [place] 0.5 mg Q8HR NEB 01/08/24 22:00 01/12/24 13:17 0.5 MG Loperamide HCl 2 mg PRN PRN GT 01/08/24 17:15 Melatonin 5 mg HS PO 01/09/24 22:00 01/11/24 22:48 5 MG Levothyroxine Sodium 112 mcg QAM@0600 PO 01/09/24 06:00 01/12/24 06:24 112 MCG Morphine Sulfate 2 mg Q4HPRN PRN IV 01/09/24 10:00 01/12/24 15:21 2 MG Dextrose 50 ml UD PRN IV 01/10/24 21:00 Pantoprazole Sodium 40 mg DAILY IV 01/11/24 10:00 01/12/24 09:27 40 MG Enteral Nutritional Formula 1,000 ml 30ML/HR GT 01/11/24 09:00 Piperacillin Sod/ Tazobactam Sod 100 ml @ 25 mls/hr Q8HR IV 01/11/24 22:00 01/12/24 15:22 25 MLS/HR Insulin Human Regular Q6HP SC 01/12/24 18:00 Diagnostic Test (Pha) 1 strip Q6HR 01/12/24 18:15 01/12/24 18:15 1 STRIP Examination Alert HEENT: Normocephalic, atraumatic, moist mucous membranes, trach tube on place, talking Respiratory/pulmonary: Bilateral lung sounds grossly clear, Cardiovascular: Regular heart sounds S1 and S2 with no associated murmurs. Abdomen: Abdomen nondistended, there is mild pain to palpation to the epigastric region, no palpable masses. PEG tube on place with no signs in infection at this time. Extremities: There are no peripheral edema at this time. There is increase in motor strength in all 4 extremities and patient is now able to move lower extremities. laboratory and microbiology Laboratory Tests 01/12/24 08:16 Test 01/12/24 08:16 Range/Units Serum Glucose 103 74-106 mg/dL Microbiology Date/Time Source Procedure Growth Status 12/21/23 09:42 Trachea Gram Stain - Final Complete 12/21/23 09:42 Respiratory Culture - Final Yeast, not [place] albicans Complete 12/14/23 19:42 Voided Urine Urine Culture - Final Complete 12/09/23 09:28 Blood Blood Culture - Final NO GROWTH AFTER 5 DAYS OF INCUBATION. 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 #Hypertensive heart disease on acute on chronic diastolic heart failure -Continue losartan 50mg QD -Continue metoprolol 25mg PO BID Respiratory #S/P tracheostomy (12/13/23) today we started with a tracheostomy speaking valve Continue puree diet Patient has g tube #Acute hypoxic respiratory failure likely in the setting of aspiration pneumonia No antibiotics according to ID Swallow evaluation 01/06/2024: patient is tolerate puree and nectar Infectious disease #Sepsis likely due to aspiration pneumonia and UTI resolved -Completed antibiotic treatment #Acute cholecystitis Patient is poor candidate for elective procedures, no need of emergency procedures at the time Patient WBC today 11.4 similar than yesterday zosyn is started HIDA scan is ordered pending Endocrinology Type 2 diabetes mellitus, DKA on previous admissions -Continue mild sliding scale insulin -Continue Lantus 15 units q.a.m. Hypothyroidism -Continue levothyroxine 112mcgQAM Gastroenterology #s/p g tube #Acute cholecystitis describe above #Hepatic steatosis #Dilated CBD #Acute transaminitis trending down Hematology Superficial thrombophlebitis of right cephalic and basilic veins -no need for anticoagulation NO SONOGRAPHIC EVIDENCE FOR DEEP VENOUS THROMBOSIS IN THE LEFT UPPER EXTREMITY VEINS. Nephrology YULIANA likely due to VMN resolving -Monitor kidney function Nutrition Continue puree diet Continue physical therapy to twice a day Lines: PICC line on left upper arm placed on 12/09/2023 Goals of care discussed with the patient for 25 min Plan discussed with Dr. Razo Plan discussed with: Patient, Other (rn) Dietary Evaluation Review Comments: 1) If GI is accessible consider Glucerna 1.2 @ 55 ml/hr goal rate as tolerated 2) If pt remains NPO >7 days consider TPN to meet at least 75% of estimated needs 3) Advance pt diet when medically feasible to a CCHO 45g/Cardiac diet modified per BLOCK OUT MACHINE OPERATOR recommendations 4) Continue current plan of care Expected Outcomes/Goals: 1) Pt to receive nutrition support within 7 days of NPO status 2) Pt diet to advance 3) F/U in 2-3 days Date of Service: Jan 12, 2024 Billing Provider: FREEDOM RAZO MD Common Visit Codes: 67125-[id number] INP/OBS CARE(HIGH) MAKENNA MARTINEZ RESIDENT Jan 12, 2024 21:07 FREEDOM RAZO MD Jan 13, 2024 11:44
--- NOTE | 2024-01-12 21:50 | DVHPN2 ---
Progress Note - Dictate Date Seen: Jan 12, 2024 Has the PT tested + for MRSA If YES, has PT been informed?: No Medical Necessity Reason Pt with a Central, PICC or Fol: Yes The following are medically ne: PICC Line, Carr Catheter Reason for carr catheter: Strict I&O Subjective Patient seen at bedside Resting comfortably Abdominal pain is improved Liver enzymes trending down Tracheostomy is capped vital signs Vital Sign Date Time Temp Pulse Resp B/P (MAP) Pulse Ox O2 Delivery O2 Flow Rate FiO2 01/12/24 21:40 79 18 100 01/12/24 21:39 156/61 01/12/24 21:31 Room Air 01/12/24 21:31 0 21 01/12/24 21:00 99.1 99.1 Total Intake and Output 01/11/24 01/11/24 01/12/24 15:00 23:00 07:00 Intake Total 615 ml 205 ml Output Total 1375 ml 1000 ml Balance -760 ml -795 ml medications Current Medications Medications Dose Ordered Sig/Leslie Route Start Time Stop Time Status Last Admin Dose Admin Metoclopramide HCl 5 mg Q6HPRN PRN IV 12/13/23 21:45 Insulin Glargine 15 units DAILY@1000 SC 12/24/23 13:30 01/12/24 09:52 15 UNITS Gabapentin 100 mg BID PEG 12/26/23 22:00 01/12/24 09:28 100 MG Losartan Potassium 100 mg DAILY PEG 12/28/23 10:00 01/12/24 09:27 100 MG Metoprolol Tartrate 37.5 mg BID PEG 01/02/24 14:15 01/12/24 09:28 37.5 MG Lorazepam 0.5 mg Q4H PRN IV 01/08/24 15:00 01/11/24 17:09 0.5 MG Albuterol 2.5 mg Q8HR NEB 01/08/24 22:00 01/12/24 21:31 2.5 MG Ipratropium [place] 0.5 mg Q8HR NEB 01/08/24 22:00 01/12/24 21:31 0.5 MG Loperamide HCl 2 mg PRN PRN GT 01/08/24 17:15 Melatonin 5 mg HS PO 01/09/24 22:00 01/11/24 22:48 5 MG Levothyroxine Sodium 112 mcg QAM@0600 PO 01/09/24 06:00 01/12/24 06:24 112 MCG Morphine Sulfate 2 mg Q4HPRN PRN IV 01/09/24 10:00 01/12/24 21:39 2 MG Dextrose 50 ml UD PRN IV 01/10/24 21:00 Pantoprazole Sodium 40 mg DAILY IV 01/11/24 10:00 01/12/24 09:27 40 MG Enteral Nutritional Formula 1,000 ml 30ML/HR GT 01/11/24 09:00 Piperacillin Sod/ Tazobactam Sod 100 ml @ 25 mls/hr Q8HR IV 01/11/24 22:00 01/12/24 15:22 25 MLS/HR Insulin Human Regular Q6HP SC 01/12/24 18:00 Diagnostic Test (Pha) 1 strip Q6HR 01/12/24 18:15 01/12/24 18:15 1 STRIP objective General Appearance: Alert and awake no distress Lungs: Clear to auscultation, tracheostomy collar Cardiovascular: Regular rate, Normal S1, Normal S2 Abdomen: Normal bowel sounds, Soft, NT obese PEG tube Extremities: No edema laboratory and microbiology Laboratory Tests 01/12/24 08:16 Test 01/12/24 08:16 Range/Units Serum Glucose 103 74-106 mg/dL Problems(with codes): (1) Elevated liver enzymes (2) Cholelithiasis and acute cholecystitis without obstruction (3) Hospital-acquired pneumonia (4) DKA (diabetic ketoacidosis) Prognosis Plan Patient was taken off antibiotics Awaiting YOLANDA results Monitor labs Prognosis remains guarded I will follow as needed Dietary Evaluation Review Comments: 1) If GI is accessible consider Glucerna 1.2 @ 55 ml/hr goal rate as tolerated 2) If pt remains NPO >7 days consider TPN to meet at least 75% of estimated needs 3) Advance pt diet when medically feasible to a CCHO 45g/Cardiac diet modified per GILL NET STRINGER recommendations 4) Continue current plan of care Expected Outcomes/Goals: 1) Pt to receive nutrition support within 7 days of NPO status 2) Pt diet to advance 3) F/U in 2-3 days Plan discussed with: Patient YOLIE FRIEDMAN MD Jan 12, 2024 21:50
[2024-01-13] VITALS (14 sets, daily range): BP systolic 102–167; BP diastolic 52–68; PULSE 70–91; RESP 16–20; TEMP 97.4–99.2; O2SAT 93–100
[2024-01-13] MEDS: guaiFENesin-DM 100/10mg/5ml SYR PO ONE (01:28)
[2024-01-13] MEDS: hydrALAZINE HCL 20 MG/ML VL IV PRN (02:42)
[2024-01-13 07:22] LABS: Basophils # (auto) 0.1 10 ^3/uL (0-0.2); Eosinophils # (auto) 0.3 10 ^3/uL (0-0.8); Hematocrit 30.2 % (36.0-46.0); Hemoglobin 9.7 g/dL (12.2-16.2); Lymphocytes # (auto) 3.2 10 ^3/uL (0.4-5.4); Lymphocytes % (auto) 30.2 % (10.0-50.0); Mean Corpuscular Hemoglobin 27.6 pg (28.0-32.0); Mean Corpuscular Volume 86.1 fL (80.0-100.0); Monocytes # (auto) 0.7 10 ^3/uL (0-1.3); Monocytes % (auto) 6.3 % (0.0-12.0); Neutrophils # (auto) 6.4 10 ^3/uL (1.6-8.6); Neutrophils % (auto) 59.5 % (37.0-80.0); Nucleated Red Blood Cells % 0.3 %; Platelet Count (auto) 385 10^3/uL (140-450); Red Blood Cells 3.51 10^6/uL (4.0-5.20); Red Cell Distribution Width 16.9 % (11.8-14.3); White Blood Cell 10.7 10^3/uL (4.4-10.8)
[2024-01-13 07:41] LABS: Alanine Aminotransferase 97 U/L (7-40); Albumin 3.7 g/dL (3.2-4.8); Alkaline Phosphatase 651 U/L (46-116); Anion Gap 11 (5-15); Aspartate Aminotransferase 26 U/L (13-40); BUN/Creatinine Ratio 9.4 (10.0-20.0); Blood Urea Nitrogen 8 mg/dL (9-23); Calcium 9.7 mg/dL (8.7-10.4); Carbon Dioxide 21 mmol/L (20-31); Chloride 102 mmol/L (98-107); Glucose 61 mg/dL (74-106); Potassium 4.5 mmol/L (3.5-5.1); Sodium 134 mmol/L (136-145)
[2024-01-13 07:42] LABS: Bilirubin, Total 0.4 mg/dL (0.2-1.0); Total Protein 6.5 g/dL (5.7-8.2)
[2024-01-13] MEDS: ACCU-CHEK COMFORT CURVE STRIP VI SCH (15:15)
--- NOTE | 2024-01-13 16:36 | DVH ---
EXAM: XY CHEST XRAY 1 VIEW TECHNIQUE: Single frontal chest radiograph CLINICAL HISTORY: dyspnea COMPARISON: XY CHEST XRAY 1 VIEW on DOS: 12/28/23, XY CHEST XRAY 1 VIEW on DOS: 12/27/23, XY CHEST XRAY 1 VIEW on DOS: 12/24/23 Findings/Impression: Frontal chest radiograph demonstrates no acute osseous or superficial soft tissue abnormalities. Trac heostomy tube terminates below the level of the clavicles. The trachea is midline. Borderline cardiomegaly. No pneumothorax, pleural effusions, or consolidations.
[2024-01-13] MEDS ORDERED: METF-370 PO (16:39)
--- NOTE | 2024-01-13 19:55 | DVHPNRES ---
Progress Note Date Seen: Jan 13, 2024 Resident Creating Document: MAKENNA MARTINEZ RESIDENT Has the PT tested + for MRSA If YES, has PT been informed?: No Medical Necessity Reason Pt with a Central, PICC or Fol: Yes The following are medically ne: PICC Line, Carr Catheter Reason for carr catheter: Strict I&O Subjective Review of Systems A 68 y old female with PMHx of HTN, DM type 2, hypothyroidism, COPD, obesity, liver cirrhosis Home meds: atorvastatin, vit D, glipizide, inuslin aspart and glargine, levothyroxine, lisinoprl, pramipezole, pregabalin She came initially at [facility] [place] on 11/16/2023 for AMS and DKA in this facility she was intubated and transfer to [facility]. Here, a CT scan of the abdomen showed CBD dilation and was sent to [facility] 11/26/2023 for ERCP, which didn't show any obstruction, Also a brain MRI was done showing mulitple old infracts. Patient was again transferred to [facility] 11/28/2023 extubated and On 12/03/2023 patient required reintubation, on 12/12/23: gastrostomy was done and 12/13/23 tracheostomy was done. Cultures: 12/08/23: sputum negative 12/08/23: urine negative 12/09/23: blood culture negative 5 days 12/14/23: urine negative 12/21/23: respiratory culture normal jordan Images: 01/08/24: abdomen US Cholelithiasis with thickened gallbladder wall and pericholecystic fluid. The common bile duct is also dilated. Although the ultrasound Mclain's sign is negative ultrasound findings suggest acute cholecystitis. 16.87 cm liver with findings suggesting steatosis. 12/10/23: Abdomen/ pelvis CT scan No acute findings in the abdomen or pelvis. Multifocal airspace disease. 11/21/23: MRI brain Signal abnormality in the bilateral cerebellum and right occipital lobe, as well as punctate foci in the right parietal lobe and centrum semiovale. Findings could represent regions of subacute ischemia due to embolic infarcts; however, underlying metastases or infection are not excluded 11/21/23: MRCP Distended gallbladder with mild pericholecystic edema and gallbladder wall thickening. No definite gallbladder stones or sludge are present. There is diffuse dilation of the extrahepatic common bile duct measuring up to 1.1 cm. There is no definite appreciable obstructing stone or mass. Small ampullary lesion or stone is not completely excluded. ERCP could be obtained to further evaluate if clinically indicated. Patient is alert and oriented in person, place and time. Speaking sentences, answering all type of questions and working with physical therapy twice a day. Patient passes swallow evaluation 01/06/2024 and is currently tolerating pureed diet. Yesterday we started the tracheostomy speaking valve, PT is reinforced Objective vital signs Vital Sign Date Time Temp Pulse Resp B/P (MAP) Pulse Ox O2 Delivery O2 Flow Rate FiO2 01/13/24 17:00 98.6 72 17 156/68 (97) 98 98.6 01/13/24 11:49 Room Air 01/13/24 11:49 0 21 Total Intake and Output 01/12/24 01/12/24 01/13/24 15:00 23:00 07:00 Intake Total 100 ml 818 ml 354 ml Output Total 600 ml 700 ml Balance 100 ml 218 ml -346 ml medications Current Medications Medications Dose Ordered Sig/Leslie Route Start Time Stop Time Status Last Admin Dose Admin Insulin Glargine 15 units DAILY@1000 SC 12/24/23 13:30 01/13/24 12:24 15 UNITS Gabapentin 100 mg BID PEG 12/26/23 22:00 01/13/24 10:54 100 MG Losartan Potassium 100 mg DAILY PEG 12/28/23 10:00 01/13/24 10:55 100 MG Metoprolol Tartrate 37.5 mg BID PEG 01/02/24 14:15 01/13/24 10:54 37.5 MG Lorazepam 0.5 mg Q4H PRN IV 01/08/24 15:00 01/13/24 11:06 0.5 MG Albuterol 2.5 mg Q8HR NEB 01/08/24 22:00 01/13/24 11:46 2.5 MG Ipratropium [place] 0.5 mg Q8HR NEB 01/08/24 22:00 01/13/24 11:46 0.5 MG Loperamide HCl 2 mg PRN PRN GT 01/08/24 17:15 Melatonin 5 mg HS PO 01/09/24 22:00 01/12/24 22:21 5 MG Levothyroxine Sodium 112 mcg QAM@0600 PO 01/09/24 06:00 01/13/24 06:19 112 MCG Morphine Sulfate 2 mg Q4HPRN PRN IV 01/09/24 10:00 01/13/24 15:27 2 MG Dextrose 50 ml UD PRN IV 01/10/24 21:00 Pantoprazole Sodium 40 mg DAILY IV 01/11/24 10:00 01/13/24 10:54 40 MG Enteral Nutritional Formula 1,000 ml 30ML/HR GT 01/11/24 09:00 Insulin Human Regular Q6HP SC 01/12/24 18:00 01/13/24 18:01 4 UNITS Hydralazine HCl 10 mg Q6HP PRN IV 01/13/24 02:30 01/13/24 02:42 10 MG Diagnostic Test (Pha) 1 strip Q4HR 01/13/24 15:15 01/13/24 17:59 1 STRIP Examination Alert HEENT: Normocephalic, atraumatic, moist mucous membranes, trach tube on place, talking Respiratory/pulmonary: Bilateral lung sounds grossly clear, Cardiovascular: Regular heart sounds S1 and S2 with no associated murmurs. Abdomen: Abdomen nondistended, there is mild pain to palpation to the epigastric region, no palpable masses. PEG tube on place with no signs in infection at this time. Extremities: There are no peripheral edema at this time. There is increase in motor strength in all 4 extremities and patient is now able to move lower extremities. laboratory and microbiology Laboratory Tests 01/13/24 06:36 Test 01/13/24 06:36 Range/Units Serum Glucose 61 L 74-106 mg/dL Microbiology Date/Time Source Procedure Growth Status 12/21/23 09:42 Trachea Gram Stain - Final Complete 12/21/23 09:42 Respiratory Culture - Final Yeast, not [place] albicans Complete 12/14/23 19:42 Voided Urine Urine Culture - Final Complete 12/09/23 09:28 Blood Blood Culture - Final NO GROWTH AFTER 5 DAYS OF INCUBATION. 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 #Hypertensive heart disease on acute on chronic diastolic heart failure -Continue losartan 50mg QD -Continue metoprolol 25mg PO BID Respiratory #S/P tracheostomy (12/13/23) yesterday we started with a tracheostomy speaking valve Continue puree diet Patient has g tube PT is reinforced #Acute hypoxic respiratory failure likely in the setting of aspiration pneumonia No antibiotics according to ID Swallow evaluation 01/06/2024: patient is tolerate puree and nectar Infectious disease #Sepsis likely due to aspiration pneumonia and UTI resolved -Completed antibiotic treatment #Acute cholecystitis Patient is poor candidate for elective procedures, no need of emergency procedures at the time Patient WBC today 10.7 continue zosyn HIDA scan is ordered pending Endocrinology Type 2 diabetes mellitus, DKA : uncontrolled -Continue mild sliding scale insulin -Continue Lantus 15 units q.a.m. Hypothyroidism -Continue levothyroxine 112mcgQAM Gastroenterology #s/p g tube #Acute cholecystitis describe above #Hepatic steatosis #Dilated CBD #Acute transaminitis trending down Hematology Superficial thrombophlebitis of right cephalic and basilic veins -no need for anticoagulation NO SONOGRAPHIC EVIDENCE FOR DEEP VENOUS THROMBOSIS IN THE LEFT UPPER EXTREMITY VEINS. Nephrology YULIANA likely due to VMN resolving -Monitor kidney function Nutrition Continue puree diet Continue physical therapy to twice a day Goals of care discussed with the patient for 25 min Plan discussed with Dr. Razo Plan discussed with: Patient, Other (rn) My Orders My Orders Orders - MAKENNA MARTINEZ RESIDENT Procedure Category Date Status Time Chest Xray 1 View XY 01/13/24 Resulted 15:08 Glucose Blood PHA 01/13/24 In Process (Accu-Chek Comfort 15:15 Dietary Evaluation Review Comments: 1) If GI is accessible consider Glucerna 1.2 @ 55 ml/hr goal rate as tolerated 2) If pt remains NPO >7 days consider TPN to meet at least 75% of estimated needs 3) Advance pt diet when medically feasible to a CCHO 45g/Cardiac diet modified per 911 TELECOMMUNICATOR recommendations 4) Continue current plan of care Expected Outcomes/Goals: 1) Pt to receive nutrition support within 7 days of NPO status 2) Pt diet to advance 3) F/U in 2-3 days Date of Service: Jan 13, 2024 Billing Provider: FREEDOM RAZO MD Common Visit Codes: [id number] INP/OBS CARE(HIGH) MAKENNA MARTINEZ RESIDENT Jan 13, 2024 19:55 FREEDOM RAOZ MD Jan 15, 2024 21:25
--- NOTE | 2024-01-13 20:17 | DVHPN2 ---
Consult Progress Note Date Seen: Jan 13, 2024 Subjective Patient reports: No new complaints (tolerating some tube feeds but also oral feeds, elevated white count the last 2 days, started on zosyn) Objective vital signs Vital Sign Date Time Temp Pulse Resp B/P (MAP) Pulse Ox O2 Delivery O2 Flow Rate FiO2 01/13/24 20:12 77 20 134/55 01/13/24 17:00 98.6 98 98.6 01/13/24 11:49 Room Air 01/13/24 11:49 0 21 Total Intake and Output 01/12/24 01/12/24 01/13/24 15:00 23:00 07:00 Intake Total 100 ml 818 ml 354 ml Output Total 600 ml 700 ml Balance 100 ml 218 ml -346 ml medications Current Medications Medications Dose Ordered Sig/Leslie Route Start Time Stop Time Status Last Admin Dose Admin Insulin Glargine 15 units DAILY@1000 SC 12/24/23 13:30 01/13/24 12:24 15 UNITS Gabapentin 100 mg BID PEG 12/26/23 22:00 01/13/24 20:06 100 MG Losartan Potassium 100 mg DAILY PEG 12/28/23 10:00 01/13/24 10:55 100 MG Metoprolol Tartrate 37.5 mg BID PEG 01/02/24 14:15 01/13/24 20:07 37.5 MG Lorazepam 0.5 mg Q4H PRN IV 01/08/24 15:00 01/13/24 11:06 0.5 MG Albuterol 2.5 mg Q8HR NEB 01/08/24 22:00 01/13/24 11:46 2.5 MG Ipratropium [place] 0.5 mg Q8HR NEB 01/08/24 22:00 01/13/24 11:46 0.5 MG Loperamide HCl 2 mg PRN PRN GT 01/08/24 17:15 Melatonin 5 mg HS PO 01/09/24 22:00 01/12/24 22:21 5 MG Levothyroxine Sodium 112 mcg QAM@0600 PO 01/09/24 06:00 01/13/24 06:19 112 MCG Morphine Sulfate 2 mg Q4HPRN PRN IV 01/09/24 10:00 01/13/24 20:12 2 MG Dextrose 50 ml UD PRN IV 01/10/24 21:00 Pantoprazole Sodium 40 mg DAILY IV 01/11/24 10:00 01/13/24 10:54 40 MG Enteral Nutritional Formula 1,000 ml 30ML/HR GT 01/11/24 09:00 Insulin Human Regular Q6HP SC 01/12/24 18:00 01/13/24 18:01 4 UNITS Hydralazine HCl 10 mg Q6HP PRN IV 01/13/24 02:30 01/13/24 02:42 10 MG Diagnostic Test (Pha) 1 strip Q4HR 01/13/24 15:15 01/13/24 17:59 1 STRIP PHYSICAL EXAM: - GENERAL: Alert and oriented x 3. No acute distress. Well-nourished. - EYES: EOMI. Anicteric. - HENT: Moist mucous membranes. No scleral icterus. No cervical lymphadenopathy. - LUNGS: Clear to auscultation bilaterally. No accessory muscle use. - CARDIOVASCULAR: Regular rate and rhythm. No murmur. No JVD. - ABDOMEN: Soft, non-tender and non-distended. No palpable masses. - EXTREMITIES: No edema. Non-tender.?SKIN: No rashes or lesions. Warm. - NEUROLOGIC: No focal neurological deficits. CN II-XII grossly intact, but not individually tested. - PSYCHIATRIC: Cooperative. Appropriate mood and affect. laboratory and microbiology Laboratory Tests 01/13/24 06:36 Test 01/13/24 06:36 Range/Units Serum Glucose 61 L 74-106 mg/dL Problem List/Assessment/Plan Problems(with codes): (1) COPD (chronic obstructive pulmonary disease) (2) HTN (hypertension) (3) DKA (diabetic ketoacidosis) (4) Hospital-acquired pneumonia (5) Closed right hip fracture (6) Cholelithiasis and acute cholecystitis without obstruction (7) Elevated liver enzymes Problem List/Assessment/Plan Assessment/Plan Problems(with codes): (1) Hospital-acquired pneumonia (2) COPD (chronic obstructive pulmonary disease) (3) DKA (diabetic ketoacidosis) (4) HTN (hypertension) (5) Closed right hip fracture Plan/Recommendation ASSESSMENT AND PLAN: ID Problem List: - Aspiration pneumonia - Acute respiratory failure - Diabetic Ketoacidosis (DKA) - Sepsis due to UTI vs pneumonia - Acute Kidney Injury (YULIANA) - Hypernatremia - Transaminitis - Fatty liver - Uncontrolled diabetes (A1C of 11.7) - Hypothyroidism - Hypertension - COPD without exacerbation - Chronic kidney disease (CKD) Assessment: This is a 68-year-old female with a past medical history of diabetes, hypertension, recurrent DKA, hypothyroidism, obesity, COPD, neuropathies, mechanical falls, liver cirrhosis, and multiple joint replacements. The patient presented to the ED with acute loss of consciousness on 11/15/2023, subsequently diagnosed with DKA and an upper GI bleed. While at [facility], a CT and MRI of the head showed concerning lesions for metastasis vs. infectious process and gallbladder issues. Due to renal failure, these images were performed without contrast. An ERCP at [facility] showed no gallstones or common bile duct obstruction. Currently, the patient is reintubated on minimal sedation and receiving broad-spectrum antibiotics for presumed meningitis and other infections. 12/09: Patient has had a repeat abdomen, pelvis, chest Ct with contrast which shows no acute findings in the abdomen and pelvis. multifocal airspace in the lungs was shown. 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 12/12: sp trach 12/13: off sedation 12/19: trach 7l,elevated temps 12/23: Sputal culture is showing normal oral pharyngeal jordan, chest X-ray shows clear lungs, yesterdays X-rays show interstitial edema otherwise clear lungs. Recomend patient continue off antibiotics and just do aspiriations. If fever starts , cosider antibiotics for aspiration pnumonia , suspect Pneumonitis 12/26: Peg tube feeding were stopped , soft abdomen and having bowel movements. Chest X-ray shows mild pulmonary congestion. Otherwise patient is stable with no fevers 12/27: Peg tube is dry and intact. Restarted on [place]. Continues to work on physical therapy 12/29: now on 6 liters of drip , improving , recommend incentive spirometry, continue working with physical therapists and encouraged out of bed 01/02: Chest X-ray shows no significant changes, white count dropped to 1.8 and hemoglobin is 9.7 01/06: white count is up to 12.7 , potentially related to new diet 01/07: leukocytosis resolved 01/09: Lesli Medeiros has determined that patient is not surgical 01/11: feeding tube placed yesterday 10/24: Chest x-ray is clear , patient on room air, suspect leukocytosis was related to aspiration pneumonitis as opposed to full on pneumonia Plan: -Stop zosyn - will fu on YOLANDA results - continue off antibiotics unless fever starts up - sp 3 week vancomycin and ceftriaxone course, will monitor patient off all antibiotics - aspiration precautions - Blood cultures monitoring. - Monitor respiratory status and adjust ventilator settings as necessary. - Monitor and manage blood glucose levels. - Supportive care as needed. Plan discussed with: Other Dietary Evaluation Review Comments: 1) If GI is accessible consider Glucerna 1.2 @ 55 ml/hr goal rate as tolerated 2) If pt remains NPO >7 days consider TPN to meet at least 75% of estimated needs 3) Advance pt diet when medically feasible to a CCHO 45g/Cardiac diet modified per CARDIOLOGY TECHNICIAN recommendations 4) Continue current plan of care Expected Outcomes/Goals: 1) Pt to receive nutrition support within 7 days of NPO status 2) Pt diet to advance 3) F/U in 2-3 days NITHIN ANAYA MD Jan 13, 2024 20:17
--- NOTE | 2024-01-13 20:59 | DVHPN2 ---
Progress Note - Dictate Date Seen: Jan 13, 2024 Has the PT tested + for MRSA If YES, has PT been informed?: No Medical Necessity Reason Pt with a Central, PICC or Fol: Yes The following are medically ne: PICC Line, Carr Catheter Reason for carr catheter: Strict I&O Subjective Patient seen at bedside Resting comfortably Abdominal pain is improved Liver enzymes trending down Tracheostomy is capped Patient passed swallow eval is currently on a pureed diet vital signs Vital Sign Date Time Temp Pulse Resp B/P (MAP) Pulse Ox O2 Delivery O2 Flow Rate FiO2 01/13/24 20:12 77 20 134/55 01/13/24 17:00 98.6 98 98.6 01/13/24 11:49 Room Air 01/13/24 11:49 0 21 Total Intake and Output 01/12/24 01/12/24 01/13/24 14:59 22:59 06:59 Intake Total 100 ml 818 ml 354 ml Output Total 600 ml 700 ml Balance 100 ml 218 ml -346 ml medications Current Medications Medications Dose Ordered Sig/Leslie Route Start Time Stop Time Status Last Admin Dose Admin Insulin Glargine 15 units DAILY@1000 SC 12/24/23 13:30 01/13/24 12:24 15 UNITS Gabapentin 100 mg BID PEG 12/26/23 22:00 01/13/24 20:06 100 MG Losartan Potassium 100 mg DAILY PEG 12/28/23 10:00 01/13/24 10:55 100 MG Metoprolol Tartrate 37.5 mg BID PEG 01/02/24 14:15 01/13/24 20:07 37.5 MG Lorazepam 0.5 mg Q4H PRN IV 01/08/24 15:00 01/13/24 11:06 0.5 MG Albuterol 2.5 mg Q8HR NEB 01/08/24 22:00 01/13/24 11:46 2.5 MG Ipratropium [place] 0.5 mg Q8HR NEB 01/08/24 22:00 01/13/24 11:46 0.5 MG Loperamide HCl 2 mg PRN PRN GT 01/08/24 17:15 Melatonin 5 mg HS PO 01/09/24 22:00 01/12/24 22:21 5 MG Levothyroxine Sodium 112 mcg QAM@0600 PO 01/09/24 06:00 01/13/24 06:19 112 MCG Morphine Sulfate 2 mg Q4HPRN PRN IV 01/09/24 10:00 01/13/24 20:12 2 MG Dextrose 50 ml UD PRN IV 01/10/24 21:00 Pantoprazole Sodium 40 mg DAILY IV 01/11/24 10:00 01/13/24 10:54 40 MG Enteral Nutritional Formula 1,000 ml 30ML/HR GT 01/11/24 09:00 Insulin Human Regular Q6HP SC 01/12/24 18:00 01/13/24 18:01 4 UNITS Hydralazine HCl 10 mg Q6HP PRN IV 01/13/24 02:30 01/13/24 02:42 10 MG Diagnostic Test (Pha) 1 strip Q4HR 01/13/24 15:15 01/13/24 17:59 1 STRIP objective General Appearance: Alert and awake no distress Lungs: Clear to auscultation, tracheostomy collar Cardiovascular: Regular rate, Normal S1, Normal S2 Abdomen: Normal bowel sounds, Soft, NT obese PEG tube Extremities: No edema laboratory and microbiology Laboratory Tests 01/13/24 06:36 Test 01/13/24 06:36 Range/Units Serum Glucose 61 L 74-106 mg/dL Problems(with codes): (1) Elevated liver enzymes (2) Cholelithiasis and acute cholecystitis without obstruction (3) Hospital-acquired pneumonia (4) DKA (diabetic ketoacidosis) (5) HTN (hypertension) (6) COPD (chronic obstructive pulmonary disease) Prognosis Plan Patient has received three weeks of vancomycin and ceftriaxone Currently patient is off antibiotics under observation Keep head end elevated during feedings Physical therapy Sputum culture showed yeast not [place] SNF Placement when more stable Dietary Evaluation Review Comments: 1) If GI is accessible consider Glucerna 1.2 @ 55 ml/hr goal rate as tolerated 2) If pt remains NPO >7 days consider TPN to meet at least 75% of estimated needs 3) Advance pt diet when medically feasible to a CCHO 45g/Cardiac diet modified per FREIGHT RATE SPECIALIST recommendations 4) Continue current plan of care Expected Outcomes/Goals: 1) Pt to receive nutrition support within 7 days of NPO status 2) Pt diet to advance 3) F/U in 2-3 days Plan discussed with: Other (None) YOLIE FRIEDMAN MD Jan 13, 2024 20:59
[2024-01-14] VITALS (15 sets, daily range): BP systolic 127–166; BP diastolic 51–87; PULSE 71–98; RESP 16–20; TEMP 97.5–101.1; O2SAT 73–100
[2024-01-14 06:52] LABS: Basophils # (auto) 0.1 10 ^3/uL (0-0.2); Basophils % (auto) 1.3 % (0.0-2.0); Eosinophils # (auto) 0.2 10 ^3/uL (0-0.8); Eosinophils % (auto) 2.1 % (0.0-7.0); Hemoglobin 9.7 g/dL (12.2-16.2); Lymphocytes # (auto) 2.5 10 ^3/uL (0.4-5.4); Lymphocytes % (auto) 24.3 % (10.0-50.0); Mean Corpuscular Hemoglobin 27.5 pg (28.0-32.0); Mean Corpuscular Hgb Conc. 32.4 g/dL (32.0-36.0); Mean Corpuscular Volume 84.8 fL (80.0-100.0); Monocytes # (auto) 0.5 10 ^3/uL (0-1.3); Monocytes % (auto) 4.5 % (0.0-12.0); Neutrophils % (auto) 67.8 % (37.0-80.0); Platelet Count (auto) 375 10^3/uL (140-450); Red Blood Cells 3.54 10^6/uL (4.0-5.20); White Blood Cell 10.4 10^3/uL (4.4-10.8)
[2024-01-14 07:13] LABS: Alanine Aminotransferase 74 U/L (7-40); Albumin 3.8 g/dL (3.2-4.8); Alkaline Phosphatase 547 U/L (46-116); Anion Gap 9 (5-15); Aspartate Aminotransferase 13 U/L (13-40); BUN/Creatinine Ratio 10.1 (10.0-20.0); Blood Urea Nitrogen 9 mg/dL (9-23); Calcium 10.2 mg/dL (8.7-10.4); Carbon Dioxide 21 mmol/L (20-31); Chloride 99 mmol/L (98-107); Glucose 291 mg/dL (74-106); Potassium 4.3 mmol/L (3.5-5.1)
[2024-01-14 07:14] LABS: Bilirubin, Total 0.4 mg/dL (0.2-1.0)
[2024-01-14 07:15] LABS: Sodium 129 mmol/L (136-145)
--- NOTE | 2024-01-14 16:19 | DVHPNRES ---
Progress Note Date Seen: Jan 14, 2024 Resident Creating Document: MAKENNA MARTINEZ RESIDENT Has the PT tested + for MRSA If YES, has PT been informed?: No Medical Necessity Reason Pt with a Central, PICC or Fol: Yes The following are medically ne: PICC Line, Carr Catheter Reason for carr catheter: Strict I&O Subjective Review of Systems A 68 y old female with PMHx of HTN, DM type 2, hypothyroidism, COPD, obesity, liver cirrhosis Home meds: atorvastatin, vit D, glipizide, inuslin aspart and glargine, levothyroxine, lisinoprl, pramipezole, pregabalin She came initially at [facility] on 11/16/2023 for AMS and DKA in this facility she was intubated and transfer to [facility]. Here, a CT scan of the abdomen showed CBD dilation and was sent to [facility] 11/26/2023 for ERCP, which didn't show any obstruction, Also a brain MRI was done showing mulitple old infracts. Patient was again transferred to [facility] 11/28/2023 extubated and On 12/03/2023 patient required reintubation, on 12/12/23: gastrostomy was done and 12/13/23 tracheostomy was done. Cultures: 12/08/23: sputum negative 12/08/23: urine negative 12/09/23: blood culture negative 5 days 12/14/23: urine negative 12/21/23: respiratory culture normal jordan Images: 01/08/24: abdomen US Cholelithiasis with thickened gallbladder wall and pericholecystic fluid. The common bile duct is also dilated. Although the ultrasound Mclain's sign is negative ultrasound findings suggest acute cholecystitis. 16.87 cm liver with findings suggesting steatosis. 12/10/23: Abdomen/ pelvis CT scan No acute findings in the abdomen or pelvis. Multifocal airspace disease. 11/21/23: MRI brain Signal abnormality in the bilateral cerebellum and right occipital lobe, as well as punctate foci in the right parietal lobe and centrum semiovale. Findings could represent regions of subacute ischemia due to embolic infarcts; however, underlying metastases or infection are not excluded 11/21/23: MRCP Distended gallbladder with mild pericholecystic edema and gallbladder wall thickening. No definite gallbladder stones or sludge are present. There is diffuse dilation of the extrahepatic common bile duct measuring up to 1.1 cm. There is no definite appreciable obstructing stone or mass. Small ampullary lesion or stone is not completely excluded. ERCP could be obtained to further evaluate if clinically indicated. Patient is alert and oriented in person, place and time. Speaking sentences, answering all type of questions and working with physical therapy twice a day. Patient passes swallow evaluation 01/06/2024 and is currently tolerating pureed diet. She has tracheostomy speaking valve, PT is reinforced Objective vital signs Vital Sign Date Time Temp Pulse Resp B/P (MAP) Pulse Ox O2 Delivery O2 Flow Rate FiO2 01/14/24 14:59 79 18 100 01/14/24 14:52 Room Air* 0 21 01/14/24 13:24 138/69 01/14/24 13:00 98.7 98.7 Total Intake and Output 01/13/24 01/13/24 01/14/24 15:00 23:00 07:00 Intake Total 218 ml 350 ml 250 ml Output Total 825 ml 1200 ml Balance 218 ml -475 ml -950 ml medications Current Medications Medications Dose Ordered Sig/Leslie Route Start Time Stop Time Status Last Admin Dose Admin Insulin Glargine 15 units DAILY@1000 SC 12/24/23 13:30 01/14/24 10:29 15 UNITS Gabapentin 100 mg BID PEG 12/26/23 22:00 01/14/24 10:16 100 MG Losartan Potassium 100 mg DAILY PEG 12/28/23 10:00 01/14/24 10:17 100 MG Metoprolol Tartrate 37.5 mg BID PEG 01/02/24 14:15 01/14/24 10:17 37.5 MG Lorazepam 0.5 mg Q4H PRN IV 01/08/24 15:00 01/13/24 23:44 0.5 MG Albuterol 2.5 mg Q8HR NEB 01/08/24 22:00 01/14/24 14:52 2.5 MG Ipratropium [place] 0.5 mg Q8HR NEB 01/08/24 22:00 01/14/24 14:52 0.5 MG Loperamide HCl 2 mg PRN PRN GT 01/08/24 17:15 Melatonin 5 mg HS PO 01/09/24 22:00 01/13/24 23:33 5 MG Levothyroxine Sodium 112 mcg QAM@0600 PO 01/09/24 06:00 01/14/24 06:31 112 MCG Morphine Sulfate 2 mg Q4HPRN PRN IV 01/09/24 10:00 01/14/24 12:54 2 MG Dextrose 50 ml UD PRN IV 01/10/24 21:00 Pantoprazole Sodium 40 mg DAILY IV 01/11/24 10:00 01/14/24 10:16 40 MG Enteral Nutritional Formula 1,000 ml 30ML/HR GT 01/11/24 09:00 Insulin Human Regular Q6HP SC 01/12/24 18:00 01/14/24 12:00 3 UNITS Hydralazine HCl 10 mg Q6HP PRN IV 01/13/24 02:30 01/13/24 02:42 10 MG Diagnostic Test (Pha) 1 strip Q4HR 01/13/24 15:15 01/14/24 14:00 1 STRIP Acetaminophen 325 mg Q6HP PRN PO 01/14/24 15:45 Examination Alert HEENT: Normocephalic, atraumatic, moist mucous membranes, trach tube on place, talking Respiratory/pulmonary: Bilateral lung sounds grossly clear, Cardiovascular: Regular heart sounds S1 and S2 with no associated murmurs. Abdomen: Abdomen nondistended, there is mild pain to palpation to the epigastric region, no palpable masses. PEG tube on place with no signs in infection at this time. Extremities: There are no peripheral edema at this time. laboratory and microbiology Laboratory Tests 01/14/24 05:52 Test 01/14/24 05:52 Range/Units Serum Glucose 291 H 74-106 mg/dL Microbiology Date/Time Source Procedure Growth Status 12/21/23 09:42 Trachea Gram Stain - Final Complete 12/21/23 09:42 Respiratory Culture - Final Yeast, not [place] albicans Complete 12/14/23 19:42 Voided Urine Urine Culture - Final Complete 12/09/23 09:28 Blood Blood Culture - Final NO GROWTH AFTER 5 DAYS OF INCUBATION. 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 #Hypertensive heart disease on acute on chronic diastolic heart failure -Continue losartan 50mg QD -Continue metoprolol 25mg PO BID Respiratory #S/P tracheostomy (12/13/23) continue tracheostomy speaking valve Continue puree diet Patient has g tube PT is reinforced #Acute hypoxic respiratory failure likely in the setting of aspiration pneumonia No antibiotics according to ID Swallow evaluation 01/06/2024: patient is tolerate puree and nectar Infectious disease #Sepsis likely due to aspiration pneumonia and UTI resolved -Completed antibiotic treatment #Acute cholecystitis Patient is poor candidate for elective procedures, no need of emergency procedures at the time HIDA scan is ordered pending Endocrinology Type 2 diabetes mellitus, DKA : uncontrolled -Continue mild sliding scale insulin -Continue Lantus 15 units q.a.m. Hypothyroidism -Continue levothyroxine 112mcgQAM Gastroenterology #s/p g tube #Acute cholecystitis describe above #Hepatic steatosis #Dilated CBD #Acute transaminitis trending down Hematology Superficial thrombophlebitis of right cephalic and basilic veins -no need for anticoagulation NO SONOGRAPHIC EVIDENCE FOR DEEP VENOUS THROMBOSIS IN THE LEFT UPPER EXTREMITY VEINS. Nephrology YULIANA likely due to VMN resolving -Monitor kidney function Nutrition Continue puree diet Continue physical therapy to twice a day Goals of care discussed with the patient for 25 min Plan discussed with Dr. Benitez Plan discussed with: Patient, Other (rn) My Orders My Orders Orders - MAKENNA MARTINEZ RESIDENT Procedure Category Date Status Time * Personal Shopper CONS 01/14/24 Transmitted Consult Acetaminophen Tablet PHA 01/14/24 In Process (Tylenol Tablet) 15:45 Dietary Evaluation Review Comments: 1) If GI is accessible consider Glucerna 1.2 @ 55 ml/hr goal rate as tolerated 2) If pt remains NPO >7 days consider TPN to meet at least 75% of estimated needs 3) Advance pt diet when medically feasible to a CCHO 45g/Cardiac diet modified per PROMOTIONAL DEMONSTRATOR recommendations 4) Continue current plan of care Expected Outcomes/Goals: 1) Pt to receive nutrition support within 7 days of NPO status 2) Pt diet to advance 3) F/U in 2-3 days Date of Service: Jan 14, 2024 Billing Provider: TAD BENITEZ MD Common Visit Codes: [id number] INP/OBS CARE(HIGH) MAKENNA MARTINEZ RESIDENT Jan 14, 2024 16:19 TAD BENITEZ MD Jan 21, 2024 17:17
[2024-01-14] MEDS: ACETAMINOPHEN 325 MG TAB PO PRN (16:37)
--- NOTE | 2024-01-14 19:24 | DVHPN2 ---
Consult Progress Note Date Seen: Jan 14, 2024 Subjective Patient reports: Other (being evaluated for abdominal pain , mild. getting a hitea scan ) Objective vital signs Vital Sign Date Time Temp Pulse Resp B/P (MAP) Pulse Ox O2 Delivery O2 Flow Rate FiO2 01/14/24 16:42 98.6 86 17 147/79 (101) 97 98.6 01/14/24 14:52 Room Air* 0 21 Total Intake and Output 01/13/24 01/13/24 01/14/24 15:00 23:00 07:00 Intake Total 218 ml 350 ml 250 ml Output Total 825 ml 1200 ml Balance 218 ml -475 ml -950 ml medications Current Medications Medications Dose Ordered Sig/Leslie Route Start Time Stop Time Status Last Admin Dose Admin Insulin Glargine 15 units DAILY@1000 SC 12/24/23 13:30 01/14/24 10:29 15 UNITS Gabapentin 100 mg BID PEG 12/26/23 22:00 01/14/24 10:16 100 MG Losartan Potassium 100 mg DAILY PEG 12/28/23 10:00 01/14/24 10:17 100 MG Metoprolol Tartrate 37.5 mg BID PEG 01/02/24 14:15 01/14/24 10:17 37.5 MG Lorazepam 0.5 mg Q4H PRN IV 01/08/24 15:00 01/13/24 23:44 0.5 MG Albuterol 2.5 mg Q8HR NEB 01/08/24 22:00 01/14/24 14:52 2.5 MG Ipratropium [place] 0.5 mg Q8HR NEB 01/08/24 22:00 01/14/24 14:52 0.5 MG Loperamide HCl 2 mg PRN PRN GT 01/08/24 17:15 Melatonin 5 mg HS PO 01/09/24 22:00 01/13/24 23:33 5 MG Levothyroxine Sodium 112 mcg QAM@0600 PO 01/09/24 06:00 01/14/24 06:31 112 MCG Morphine Sulfate 2 mg Q4HPRN PRN IV 01/09/24 10:00 01/14/24 12:54 2 MG Dextrose 50 ml UD PRN IV 01/10/24 21:00 Pantoprazole Sodium 40 mg DAILY IV 01/11/24 10:00 01/14/24 10:16 40 MG Enteral Nutritional Formula 1,000 ml 30ML/HR GT 01/11/24 09:00 Insulin Human Regular Q6HP SC 01/12/24 18:00 01/14/24 17:20 4 UNITS Hydralazine HCl 10 mg Q6HP PRN IV 01/13/24 02:30 01/13/24 02:42 10 MG Diagnostic Test (Pha) 1 strip Q4HR 01/13/24 15:15 01/14/24 16:56 1 STRIP Acetaminophen 325 mg Q6HP PRN PO 01/14/24 15:45 01/14/24 16:37 325 MG PHYSICAL EXAM: - GENERAL: Alert and oriented x 3. No acute distress. Well-nourished. - EYES: EOMI. Anicteric. - HENT: Moist mucous membranes. No scleral icterus. No cervical lymphadenopathy. - LUNGS: Clear to auscultation bilaterally. No accessory muscle use. - CARDIOVASCULAR: Regular rate and rhythm. No murmur. No JVD. - ABDOMEN: Soft, non-tender and non-distended. No palpable masses. - EXTREMITIES: No edema. Non-tender.?SKIN: No rashes or lesions. Warm. - NEUROLOGIC: No focal neurological deficits. CN II-XII grossly intact, but not individually tested. - PSYCHIATRIC: Cooperative. Appropriate mood and affect. laboratory and microbiology Laboratory Tests 01/14/24 05:52 Test 01/14/24 05:52 Range/Units Serum Glucose 291 H 74-106 mg/dL Problem List/Assessment/Plan Problems(with codes): (1) COPD (chronic obstructive pulmonary disease) (2) HTN (hypertension) (3) DKA (diabetic ketoacidosis) (4) Hospital-acquired pneumonia (5) Closed right hip fracture (6) Cholelithiasis and acute cholecystitis without obstruction (7) Elevated liver enzymes Problem List/Assessment/Plan Assessment/Plan Problems(with codes): (1) Hospital-acquired pneumonia (2) COPD (chronic obstructive pulmonary disease) (3) DKA (diabetic ketoacidosis) (4) HTN (hypertension) (5) Closed right hip fracture Plan/Recommendation ASSESSMENT AND PLAN: ID Problem List: - Aspiration pneumonia - Acute respiratory failure - Diabetic Ketoacidosis (DKA) - Sepsis due to UTI vs pneumonia - Acute Kidney Injury (YULIANA) - Hypernatremia - Transaminitis - Fatty liver - Uncontrolled diabetes (A1C of 11.7) - Hypothyroidism - Hypertension - COPD without exacerbation - Chronic kidney disease (CKD) Assessment: This is a 68-year-old female with a past medical history of diabetes, hypertension, recurrent DKA, hypothyroidism, obesity, COPD, neuropathies, mechanical falls, liver cirrhosis, and multiple joint replacements. The patient presented to the ED with acute loss of consciousness on 11/15/2023, subsequently diagnosed with DKA and an upper GI bleed. While at [facility], a CT and MRI of the head showed concerning lesions for metastasis vs. infectious process and gallbladder issues. Due to renal failure, these images were performed without contrast. An ERCP at [facility] showed no gallstones or common bile duct obstruction. Currently, the patient is reintubated on minimal sedation and receiving broad-spectrum antibiotics for presumed meningitis and other infections. 12/09: Patient has had a repeat abdomen, pelvis, chest Ct with contrast which shows no acute findings in the abdomen and pelvis. multifocal airspace in the lungs was shown. 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 12/12: sp trach 12/13: off sedation 12/19: trach 7l,elevated temps 12/23: Sputal culture is showing normal oral pharyngeal jordan, chest X-ray shows clear lungs, yesterdays X-rays show interstitial edema otherwise clear lungs. Recomend patient continue off antibiotics and just do aspiriations. If fever starts , cosider antibiotics for aspiration pnumonia , suspect Pneumonitis 12/26: Peg tube feeding were stopped , soft abdomen and having bowel movements. Chest X-ray shows mild pulmonary congestion. Otherwise patient is stable with no fevers 12/27: Peg tube is dry and intact. Restarted on [place]. Continues to work on physical therapy 12/29: now on 6 liters of drip , improving , recommend incentive spirometry, continue working with physical therapists and encouraged out of bed 01/02: Chest X-ray shows no significant changes, white count dropped to 1.8 and hemoglobin is 9.7 01/06: white count is up to 12.7 , potentially related to new diet 01/07: leukocytosis resolved 01/09: Lesli Medeiros has determined that patient is not surgical 01/11: feeding tube placed yesterday 01/12: Chest x-ray is clear , patient on room air, suspect leukocytosis was related to aspiration pneumonitis as opposed to full on pneumonia 01/13: MRCP in the past has shown distened bladder with mild perisystic edema and gallbladder thickening , abdominal untrasound shows gallstones with thicken gallbladder with pericolycystic fluid . YOLANDA results show normal left ventricle, size and dimension of 55%, valves without any significance, no evidence of intracardic masses or vegitations Plan: - follow patient clinically off all antibiotics -follow up of Hidea scan - continue off antibiotics unless fever starts up - sp 3 week vancomycin and ceftriaxone course, will monitor patient off all antibiotics - aspiration precautions - Blood cultures monitoring. - Monitor respiratory status and adjust ventilator settings as necessary. - Monitor and manage blood glucose levels. - Supportive care as needed. Plan discussed with: Other Dietary Evaluation Review Comments: 1) If GI is accessible consider Glucerna 1.2 @ 55 ml/hr goal rate as tolerated 2) If pt remains NPO >7 days consider TPN to meet at least 75% of estimated needs 3) Advance pt diet when medically feasible to a CCHO 45g/Cardiac diet modified per AUTO INSPECTOR recommendations 4) Continue current plan of care Expected Outcomes/Goals: 1) Pt to receive nutrition support within 7 days of NPO status 2) Pt diet to advance 3) F/U in 2-3 days NITHIN ANAYA MD Jan 14, 2024 19:24
--- NOTE | 2024-01-14 20:51 | DVHPN2 ---
Progress Note - Dictate Date Seen: Jan 14, 2024 Has the PT tested + for MRSA If YES, has PT been informed?: No Medical Necessity Reason Pt with a Central, PICC or Fol: Yes The following are medically ne: PICC Line, Carr Catheter Reason for carr catheter: Strict I&O Subjective Patient seen at bedside Resting comfortably Abdominal pain is improved Liver enzymes trending down Tracheostomy is capped Patient passed swallow eval is currently on a pureed diet Patient had an episode of acute cholecystitis that is now resolving vital signs Vital Sign Date Time Temp Pulse Resp B/P (MAP) Pulse Ox O2 Delivery O2 Flow Rate FiO2 01/14/24 20:13 82 18 146/87 01/14/24 16:42 98.6 97 98.6 01/14/24 14:52 Room Air* 0 21 Total Intake and Output 01/13/24 01/13/24 01/14/24 15:00 23:00 07:00 Intake Total 218 ml 350 ml 250 ml Output Total 825 ml 1200 ml Balance 218 ml -475 ml -950 ml medications Current Medications Medications Dose Ordered Sig/Leslie Route Start Time Stop Time Status Last Admin Dose Admin Insulin Glargine 15 units DAILY@1000 SC 12/24/23 13:30 01/14/24 10:29 15 UNITS Gabapentin 100 mg BID PEG 12/26/23 22:00 01/14/24 10:16 100 MG Losartan Potassium 100 mg DAILY PEG 12/28/23 10:00 01/14/24 10:17 100 MG Metoprolol Tartrate 37.5 mg BID PEG 01/02/24 14:15 01/14/24 10:17 37.5 MG Lorazepam 0.5 mg Q4H PRN IV 01/08/24 15:00 01/13/24 23:44 0.5 MG Albuterol 2.5 mg Q8HR NEB 01/08/24 22:00 01/14/24 14:52 2.5 MG Ipratropium [place] 0.5 mg Q8HR NEB 01/08/24 22:00 01/14/24 14:52 0.5 MG Loperamide HCl 2 mg PRN PRN GT 01/08/24 17:15 Melatonin 5 mg HS PO 01/09/24 22:00 01/13/24 23:33 5 MG Levothyroxine Sodium 112 mcg QAM@0600 PO 01/09/24 06:00 01/14/24 06:31 112 MCG Morphine Sulfate 2 mg Q4HPRN PRN IV 01/09/24 10:00 01/14/24 20:13 2 MG Dextrose 50 ml UD PRN IV 01/10/24 21:00 Pantoprazole Sodium 40 mg DAILY IV 01/11/24 10:00 01/14/24 10:16 40 MG Enteral Nutritional Formula 1,000 ml 30ML/HR GT 01/11/24 09:00 Insulin Human Regular Q6HP SC 01/12/24 18:00 01/14/24 17:20 4 UNITS Hydralazine HCl 10 mg Q6HP PRN IV 01/13/24 02:30 01/13/24 02:42 10 MG Diagnostic Test (Pha) 1 strip Q4HR 01/13/24 15:15 01/14/24 16:56 1 STRIP Acetaminophen 325 mg Q6HP PRN PO 01/14/24 15:45 01/14/24 16:37 325 MG objective General Appearance: Alert and awake no distress Lungs: Clear to auscultation, tracheostomy collar Cardiovascular: Regular rate, Normal S1, Normal S2 Abdomen: Normal bowel sounds, Soft, NT obese PEG tube Extremities: No edema laboratory and microbiology Laboratory Tests 01/14/24 05:52 Test 01/14/24 05:52 Range/Units Serum Glucose 291 H 74-106 mg/dL Problems(with codes): (1) Elevated liver enzymes (2) Cholelithiasis and acute cholecystitis without obstruction (3) Hospital-acquired pneumonia (4) DKA (diabetic ketoacidosis) Prognosis Plan Patient has received three weeks of vancomycin and ceftriaxone Currently patient is off antibiotics under observation Keep head end elevated during feedings Physical therapy ? HIDA SCAN ordered; patient not a surgical candidate as per surgical consult at this time Sputum culture showed yeast not [place] SN[facility] Placement when more stable Dietary Evaluation Review Comments: 1) If GI is accessible consider Glucerna 1.2 @ 55 ml/hr goal rate as tolerated 2) If pt remains NPO >7 days consider TPN to meet at least 75% of estimated needs 3) Advance pt diet when medically feasible to a CCHO 45g/Cardiac diet modified per CMM PROGRAMMER recommendations 4) Continue current plan of care Expected Outcomes/Goals: 1) Pt to receive nutrition support within 7 days of NPO status 2) Pt diet to advance 3) F/U in 2-3 days Plan discussed with: Patient YOLIE FRIEDMAN MD Jan 14, 2024 20:51
--- NOTE | 2024-01-14 21:58 | DVHPN2 ---
Progress Note - Dictate Date Seen: Jan 14, 2024 Has the PT tested + for MRSA If YES, has PT been informed?: No Medical Necessity Reason Pt with a Central, PICC or Fol: Yes The following are medically ne: PICC Line, Carr Catheter Reason for carr catheter: Strict I&O Subjective Mr. Sanderson is a 68 years old female with a history of hypertension, diabetes, hypothyroidism, COPD, obesity, diabetic polyneuropathy, arthritis, liver cirrhosis, she was transferred back from the [facility] on 12/08/2023 after ERCP. I have seen examined the patient, I have talked to her nurse, she keeps improving, she is awake, oriented x3, per nurse reports, she walked 34 ft with therapist Liver function tests improving Hyponatremia persists LLU Neurosurgery consultation: The lesions likely represents infarct, recommend Re attempting MRI spectrography for further evaluation Neuro consultation: Lumbar puncture was not recommended concerning possibility of herniation EEG, 11/28/2023: No seizure/nonconvulsive status epileptics (I did not see report) TTE, 11/29/23: EF: 70-75% (I did not see report) MRI brain (no report): signal abnormality in bilateral cerebellum and right occipital lobe, punctate foci in right parietal lobe and central semiovale- unable to differentiate subacute ischemia 2/2 MR effects versus infection versus metastasis. Recommend contrast enhanced MRI MRI, 12/05/23: No evidence of demyelinating disease (I did not see report) MRI orbital, face, neck ww 12/05/2023, comparison: MR brain 11/28/2023: No evidence of mucormycosis infection. Multiple irregularly enhancing cerebellar and right occipital lesions were better evaluated on recent brain MRI MRI C-spine, 12/05/2023: No evidence of demyelinating disease in the cervical spine. Moderate degenerative changes. Grade 1 anterolisthesis of C7 on T1 MRI lumbar spine wwo, 12/05/2023: No evidence of demyelinating disease in the lumbar spine. Degenerative changes and grade 1 anterolisthesis of L4 and L5. Mild central spinal stenosis at L4-5. [id number] multilevel bilateral foraminal stenosis as described above MRI spectroscopy 12/05/2023: Cerebellar lesion showing moderately elevated Cho, reduced ZINA, large lipid peaks, and additional tics suspicious for amino acids and alanine. The alanine and amino acids are suspicious for an infectious process Treatment according to discharge note: ASA 81mg Qd, Lipitor 20 mg daily Urinalysis, 12/08/2023: WBC: 93, urine leukocyte esterase: 3+ ABG, 12/09/2023: Metabolic acidosis WBC/HB/PLT/MCV, 12/09/2023: 8.5/7.4/350/92.4 PT/INR/PTT, 12/08/2023: 11.4/1.08 Na, 12/08/2023: 147, 12/09/2023: 146, 12/19/2019 4:148 HCO3, 12/08/2023: 23, 12/10/2023: 22, 11/2123: 19, 12/13/23: 18, 12/16/2023: 15, 12/19/2023: 17 CPK, 12/18/2023: 54 TBI/AST/ALT/AP, 12/09/2023: 0.2/40/21/278 TG/HDL/LDL/HDL, 11/2023: 136/96/38/32 Vitamin B12, 11/2023: 2537 TSH, 11/2023: 17.87 YOLANDA, 12/10/2023: In the study done today no evidence of vegetation or masses were discernible. There is mild mitral valve regurgitation with mild anterior leaflet prolapse. No significant intracardiac lesion was discernible Echocardiogram, 11/18/2023: Normal left ventricular size and dimension. Normal left ventricular systolic function estimated ejection fraction 55%. There is a grade 1 diastolic dysfunction. Normal right ventricular size and dimension. Normal right ventricular systolic function. Mildly increased right ventricular systolic pressure 34 mm of mercury. Normal biatrial size and dimension. Normal aortic valve structure and function. Normal mitral valve structure and function. Normal tricuspid valve structure and function. The pulmonary valve is grossly normal. No pericardial effusion. Carotid Doppler, 11/21/2023: 1. No evidence of hemodynamically significant stenosis within the left carotid arterial system. 2. Antegrade flow within the left vertebral artery. 3. Cannot assess the right carotid arterial system due to central line artifact and overlying bandage. Extremity venous study, 12/09/2023: Thrombus in the LEFT cephalic and brachial vein. Thrombus in the RIGHT cephalic and basilic vein.If clinical concern/symptoms persist or worsen, short-interval follow-up study is suggested. Chest x-ray, 12/08/2023: 1. Endotracheal and gastric tubes in place as described. Satisfactory position. 2. Removal of right PICC and right IJ central venous catheter since prior. 3. Mild cardiomegaly and pulmonary vascular congestion. 4. Small opacity in the lateral right lung base which could reflect atelectasis or pneumonia MRI head, 11/21/2023: Signal abnormality in the bilateral cerebellum and right occipital lobe, as well as punctate foci in the right parietal lobe and centrum semiovale. Findings could represent regions of subacute ischemia due to embolic infarcts; however, underlying metastases or infection are not excluded. Recommend contrast-enhanced MRI vital signs Vital Sign Date Time Temp Pulse Resp B/P (MAP) Pulse Ox O2 Delivery O2 Flow Rate FiO2 01/14/24 20:13 82 18 146/87 01/14/24 16:42 98.6 97 98.6 01/14/24 14:52 Room Air* 0 21 Total Intake and Output 01/13/24 01/13/24 01/14/24 15:00 23:00 07:00 Intake Total 218 ml 350 ml 250 ml Output Total 825 ml 1200 ml Balance 218 ml -475 ml -950 ml medications Current Medications Medications Dose Ordered Sig/Leslie Route Start Time Stop Time Status Last Admin Dose Admin Insulin Glargine 15 units DAILY@1000 SC 12/24/23 13:30 01/14/24 10:29 15 UNITS Gabapentin 100 mg BID PEG 12/26/23 22:00 01/14/24 10:16 100 MG Losartan Potassium 100 mg DAILY PEG 12/28/23 10:00 01/14/24 10:17 100 MG Metoprolol Tartrate 37.5 mg BID PEG 01/02/24 14:15 01/14/24 10:17 37.5 MG Lorazepam 0.5 mg Q4H PRN IV 01/08/24 15:00 01/13/24 23:44 0.5 MG Albuterol 2.5 mg Q8HR NEB 01/08/24 22:00 01/14/24 21:49 2.5 MG Ipratropium [place] 0.5 mg Q8HR NEB 01/08/24 22:00 01/14/24 21:49 0.5 MG Loperamide HCl 2 mg PRN PRN GT 01/08/24 17:15 Melatonin 5 mg HS PO 01/09/24 22:00 01/13/24 23:33 5 MG Levothyroxine Sodium 112 mcg QAM@0600 PO 01/09/24 06:00 01/14/24 06:31 112 MCG Morphine Sulfate 2 mg Q4HPRN PRN IV 01/09/24 10:00 01/14/24 20:13 2 MG Dextrose 50 ml UD PRN IV 01/10/24 21:00 Pantoprazole Sodium 40 mg DAILY IV 01/11/24 10:00 01/14/24 10:16 40 MG Enteral Nutritional Formula 1,000 ml 30ML/HR GT 01/11/24 09:00 Insulin Human Regular Q6HP SC 01/12/24 18:00 01/14/24 17:20 4 UNITS Hydralazine HCl 10 mg Q6HP PRN IV 01/13/24 02:30 01/13/24 02:42 10 MG Diagnostic Test (Pha) 1 strip Q4HR 01/13/24 15:15 01/14/24 16:56 1 STRIP Acetaminophen 325 mg Q6HP PRN PO 01/14/24 15:45 01/14/24 16:37 325 MG objective The patient is well-nourished and well-developed with no distress. Status post tracheostomy and feeding tube insertion MENTAL STATUS: Subjective CRANIAL NERVES: Pupils are equal round and reactive to light briskly, normal external eye movement, normal sensation and motor examination in the lateral trigeminal nerve distribution, no facial weakness. SENSATION: Okay to pinprick and light touch MOTOR: Normal tone in the upper and lower extremity. Normal muscle bulk. No fasciculations. Muscle Bear: 4/5. REFLEXES: Deep tendon reflexes are symmetrical. Bilateral upgoing toes CEREBELLAR/COORDINATION: No ataxia GAIT/STATION: deferred. laboratory and microbiology Laboratory Tests 01/14/24 05:52 Test 01/14/24 05:52 Range/Units Serum Glucose 291 H 74-106 mg/dL Problem List Abnormal MRI brain scan, likely the patient has multiple stroke Coma Metabolic encephalopathy Hypoxic encephalopathy Multiple strokes Ketoacidosis Bilateral upper extremity deep venous thrombosis Status post tracheostomy Status post PEG tube/past swallow evaluation Gallstone per ultrasound (01/08/24) Assessment/Plan Monitoring Pureed diet Up to chair Physical therapy General surgery on case Cardiology on case Infectious disease on case More recommendation per clinical course This medical document was created using an electronic medical record system with [employer] computerized dictation system. Although this document has been carefully reviewed, there may still be some phonetic and typographical errors. These areas are purely typographical due to imperfections of the software programs, and do not reflect any compromise in the patient's medical care. Prognosis poor Dietary Evaluation Review Comments: 1) If GI is accessible consider Glucerna 1.2 @ 55 ml/hr goal rate as tolerated 2) If pt remains NPO >7 days consider TPN to meet at least 75% of estimated needs 3) Advance pt diet when medically feasible to a CCHO 45g/Cardiac diet modified per FILLING ROOM OPERATOR recommendations 4) Continue current plan of care Expected Outcomes/Goals: 1) Pt to receive nutrition support within 7 days of NPO status 2) Pt diet to advance 3) F/U in 2-3 days Plan discussed with: Other DREW FAGAN MD Jan 14, 2024 21:58
[2024-01-15] VITALS (13 sets, daily range): BP systolic 105–157; BP diastolic 47–79; PULSE 73–98; RESP 16–20; TEMP 98–100.5; O2SAT 95–98
[2024-01-15] MEDS ORDERED: DEXTROSE (50%) 50ML SYRG IV PRN (10:45)
[2024-01-15 11:11] LABS: Basophils # (auto) 0 10 ^3/uL (0-0.2); Basophils % (auto) 0.2 % (0.0-2.0); Eosinophils # (auto) 0.3 10 ^3/uL (0-0.8); Eosinophils % (auto) 3.3 % (0.0-7.0); Hematocrit 28.3 % (36.0-46.0); Hemoglobin 8.8 g/dL (12.2-16.2); Lymphocytes # (auto) 2.5 10 ^3/uL (0.4-5.4); Lymphocytes % (auto) 25.4 % (10.0-50.0); Mean Corpuscular Hgb Conc. 31.2 g/dL (32.0-36.0); Mean Corpuscular Volume 86.7 fL (80.0-100.0); Monocytes # (auto) 0.5 10 ^3/uL (0-1.3); Monocytes % (auto) 5.3 % (0.0-12.0); Neutrophils # (auto) 6.5 10 ^3/uL (1.6-8.6); Neutrophils % (auto) 65.8 % (37.0-80.0); Nucleated Red Blood Cells % 0.1 %; Platelet Count (auto) 382 10^3/uL (140-450); Red Blood Cells 3.27 10^6/uL (4.0-5.20); Red Cell Distribution Width 16.7 % (11.8-14.3); White Blood Cell 9.9 10^3/uL (4.4-10.8)
[2024-01-15 11:24] LABS: Alanine Aminotransferase 53 U/L (7-40); Alkaline Phosphatase 460 U/L (46-116); Anion Gap 7 (5-15); Aspartate Aminotransferase 12 U/L (13-40); BUN/Creatinine Ratio 8.6 (10.0-20.0); Blood Urea Nitrogen 7 mg/dL (9-23); Carbon Dioxide 23 mmol/L (20-31); Chloride 99 mmol/L (98-107); Glucose 368 mg/dL (74-106); Potassium 4.6 mmol/L (3.5-5.1); Sodium 129 mmol/L (136-145)
[2024-01-15 11:25] LABS: Albumin 3.7 g/dL (3.2-4.8); Bilirubin, Total 0.2 mg/dL (0.2-1.0); Total Protein 6.8 g/dL (5.7-8.2)
[2024-01-15] MEDS: ACCU-CHEK COMFORT CURVE STRIP VI SCH (11:29)
[2024-01-15] MEDS: InsuLIN REG 1unit/0.01ml Soln (100units/ml) SC SCH (12:07)
--- NOTE | 2024-01-15 17:24 | DVHPN2 ---
Subjective Mr. Sanderson is a 68 years old female with a history of hypertension, diabetes, hypothyroidism, COPD, obesity, diabetic polyneuropathy, arthritis, liver cirrhosis, she was transferred back from the [facility] on 12/08/2023 after ERCP. I have seen examined the patient, I have talked to her nurse, she keeps improving, she is awake, oriented x3, per nurse reports, she walked 34 ft with therapist Liver function tests improving Hyponatremia persists Reviewed: Care Plan, H&P, Labs, Medications, Previous Orders, Radiology, Other (Consultants) Changes from previous H/P or p: No Changes Objective Vitals Vital Signs Date Time Temp Pulse Resp B/P (MAP) Pulse Ox O2 Delivery O2 Flow Rate FiO2 01/15/24 16:50 98.0 80 16 116/51 (72) 96 98.0 01/15/24 08:00 Room Air* 0 21 Intake/Output Intake and Output 01/15/24 05:00 Intake Total 1580 ml Output Total 2300 ml Balance -720 ml Intake Oral 1580 ml Output Urine Total 2300 ml # Bowel Movements 3 General Appearance: Alert Lungs: Clear to auscultation Cardiovascular: Regular rate, Normal S1, Normal S2 Abdomen: Normal bowel sounds, Soft, No tenderness Extremities: No edema Medications Current Medications Medications Dose Ordered Sig/Leslie Route Start Time Stop Time Status Last Admin Dose Admin Insulin Glargine 15 units DAILY@1000 SC 12/24/23 13:30 01/15/24 09:26 15 UNITS Gabapentin 100 mg BID PEG 12/26/23 22:00 01/15/24 09:22 100 MG Losartan Potassium 100 mg DAILY PEG 12/28/23 10:00 01/15/24 12:09 100 MG Metoprolol Tartrate 37.5 mg BID PEG 01/02/24 14:15 01/15/24 12:11 37.5 MG Lorazepam 0.5 mg Q4H PRN IV 01/08/24 15:00 01/15/24 12:08 0.5 MG Albuterol 2.5 mg Q8HR NEB 01/08/24 22:00 01/15/24 14:44 2.5 MG Ipratropium [place] 0.5 mg Q8HR NEB 01/08/24 22:00 01/15/24 14:44 0.5 MG Loperamide HCl 2 mg PRN PRN GT 01/08/24 17:15 Melatonin 5 mg HS PO 01/09/24 22:00 01/14/24 21:59 5 MG Levothyroxine Sodium 112 mcg QAM@0600 PO 01/09/24 06:00 01/15/24 06:43 112 MCG Pantoprazole Sodium 40 mg DAILY IV 01/11/24 10:00 01/15/24 09:22 40 MG Enteral Nutritional Formula 1,000 ml 30ML/HR GT 01/11/24 09:00 Hydralazine HCl 10 mg Q6HP PRN IV 01/13/24 02:30 01/13/24 02:42 10 MG Acetaminophen 325 mg Q6HP PRN PO 01/14/24 15:45 01/14/24 16:37 325 MG Diagnostic Test (Pha) 1 strip ACHS 01/15/24 11:30 01/15/24 11:29 1 STRIP Insulin Human Regular ACHS SC 01/15/24 11:30 01/15/24 12:07 10 UNITS Dextrose 50 ml UD PRN IV 01/15/24 10:45 Morphine Sulfate 4 mg Q2HPRN PRN IV 01/15/24 12:15 Laboratory Results Laboratory Tests 01/15/24 10:41 Chemistry Test 01/15/24 10:41 Albumin 3.7 g/dL (3.2-4.8) Calcium Level 10.0 mg/dL (8.7-10.4) Total Protein 6.8 g/dL (5.7-8.2) LFT Test 01/15/24 10:41 Alanine Aminotransferase (ALT) 53 U/L (7-40) H Alkaline Phosphatase 460 U/L (46-116) H Aspartate Amino Transferase (AST) 12 U/L (13-40) L Total Bilirubin 0.2 mg/dL (0.2-1.0) Urinalysis Test 12/08/23 19:00 12/11/23 22:02 12/14/23 19:42 12/20/23 11:30 Urine WBC Clumps Present /hpf (None Seen) Urine Creatinine 21.88 mg/dL (30.0-125.0) L Urine Protein/Creatinine Ratio 2.01 Urine Sodium 40 mmol/L (40-220) Urine Total Protein 43.9 mg/dL (0.0-11.9) H Urine Color Light-yellow (Yellow) Urine Clarity Clear (Clear) Urine pH 6.0 (5.0-9.0) Urine Specific [place] 1.009 (1.001-1.035) Urine Protein 1+ (Negative) H Urine Ketones Negative (Negative) Urine Blood 2+ /uL (Negative) H Urine Nitrite Negative (Negative) Urine Bilirubin Negative (Negative) Urine Urobilinogen Normal mg/dL (Negative) Urine Leukocyte Esterase 2+ /uL (Negative) Urine RBC 6 /hpf (0 - 4) Urine WBC 68 /hpf (0 - 5) Urine Squamous Epithelial Cells None seen /hpf (<5) Urine Bacteria Few /hpf (None Seen) H Urine Glucose Normal mg/dL (Normal) Urine Osmolality 316 mOsm/kg Microbiology Microbiology Date/Time Source Procedure Growth Status 12/21/23 09:42 Trachea Gram Stain - Final Complete 12/21/23 09:42 Respiratory Culture - Final Yeast, not [place]app[place] albicans Complete 12/14/23 19:42 Voided Urine Urine Culture - Final Complete 12/09/23 09:28 Blood Blood Culture - Final NO GROWTH AFTER 5 DAYS OF INCUBATION. Complete 12/08/23 19:00 Sputum Gram Stain - Final Complete 12/08/23 19:00 Sputum Respiratory Culture - Final Complete Assessment/Plan Assessment/Plan Abnormal MRI brain scan, likely the patient has multiple stroke Coma Metabolic encephalopathy Hypoxic encephalopathy Multiple strokes Ketoacidosis Bilateral upper extremity deep venous thrombosis Status post tracheostomy Status post PEG tube/past swallow evaluation Gallstone per ultrasound (01/08/24) Assessment/Plan Monitoring Pureed diet Up to chair Physical therapy General surgery on case Cardiology on case Infectious disease on case More recommendation per clinical course Increased insulin regimen today Plan discussed with: Patient My Orders Orders - RAYMOND WHITLOCK MD Procedure Category Date Status Time Glucose Blood PHA 01/15/24 In Process (Accu-Chek Comfort 11:30 Insulin R (Human) PHA 01/15/24 In Process (Insulin R) 11:30 Dextrose 50% Syringe PHA 01/15/24 In Process 10:45 Morphine Sulfate PHA 01/15/24 In Process Injection 12:15 Date of Service: Jan 15, 2024 Billing Provider: RAYMOND WHITLOCK MD Common Visit Codes: [id number] INP/OBS CARE(HIGH) RAYMOND WHITLOCK MD Jan 15, 2024 17:24
[2024-01-15] MEDS: MORPHINE SULFATE 4 MG/ML SYR/VIAL IV PRN (21:02)
[2024-01-16] VITALS (14 sets, daily range): BP systolic 97–127; BP diastolic 43–75; PULSE 70–97; RESP 16–20; TEMP 98.5–98.8; O2SAT 94–99
--- NOTE | 2024-01-16 18:16 | DVHPN2 ---
Subjective Mr. Sanderson is a 68 years old female with a history of hypertension, diabetes, hypothyroidism, COPD, obesity, diabetic polyneuropathy, arthritis, liver cirrhosis, she was transferred back from the [facility] on 12/08/2023 after ERCP. I have seen examined the patient, I have talked to her nurse, she keeps improving, she is awake, oriented x3, per nurse reports, she walked 34 ft with therapist Liver function tests improving Hyponatremia persists Reviewed: Care Plan, H&P, Labs, Medications, Previous Orders, Radiology, Other (Consultants) Changes from previous H/P or p: No Changes Objective Vitals Vital Signs Date Time Temp Pulse Resp B/P (MAP) Pulse Ox O2 Delivery O2 Flow Rate FiO2 01/16/24 17:00 98.5 91 18 123/67 (85) 98 98.5 01/16/24 14:27 Room Air* 0 21 Intake/Output Intake and Output 01/16/24 05:00 Intake Total 1325 ml Output Total 1750 ml Balance -425 ml Intake Oral 1325 ml Output Urine Total 1750 ml # Bowel Movements 1 General Appearance: Alert Lungs: Clear to auscultation Cardiovascular: Regular rate, Normal S1, Normal S2 Abdomen: Normal bowel sounds, Soft, No tenderness Extremities: No edema Medications Current Medications Medications Dose Ordered Sig/Leslie Route Start Time Stop Time Status Last Admin Dose Admin Insulin Glargine 15 units DAILY@1000 SC 12/24/23 13:30 01/16/24 16:21 15 UNITS Gabapentin 100 mg BID PEG 12/26/23 22:00 01/16/24 10:40 100 MG Losartan Potassium 100 mg DAILY PEG 12/28/23 10:00 01/15/24 12:09 100 MG Metoprolol Tartrate 37.5 mg BID PEG 01/02/24 14:15 01/15/24 22:53 37.5 MG Lorazepam 0.5 mg Q4H PRN IV 01/08/24 15:00 01/15/24 23:06 0.5 MG Albuterol 2.5 mg Q8HR NEB 01/08/24 22:00 01/16/24 17:54 2.5 MG Ipratropium [place] 0.5 mg Q8HR NEB 01/08/24 22:00 01/16/24 17:54 0.5 MG Loperamide HCl 2 mg PRN PRN GT 01/08/24 17:15 Melatonin 5 mg HS PO 01/09/24 22:00 01/15/24 22:53 5 MG Levothyroxine Sodium 112 mcg QAM@0600 PO 01/09/24 06:00 01/16/24 06:27 112 MCG Pantoprazole Sodium 40 mg DAILY IV 01/11/24 10:00 01/16/24 10:40 40 MG Enteral Nutritional Formula 1,000 ml 30ML/HR GT 01/11/24 09:00 Hydralazine HCl 10 mg Q6HP PRN IV 01/13/24 02:30 01/13/24 02:42 10 MG Acetaminophen 325 mg Q6HP PRN PO 01/14/24 15:45 01/16/24 01:34 325 MG Diagnostic Test (Pha) 1 strip ACHS 01/15/24 11:30 01/16/24 17:12 1 STRIP Insulin Human Regular ACHS SC 01/15/24 11:30 01/16/24 12:26 10 UNITS Dextrose 50 ml UD PRN IV 01/15/24 10:45 Morphine Sulfate 4 mg Q2HPRN PRN IV 01/15/24 12:15 01/16/24 16:12 4 MG Laboratory Results Laboratory Tests 01/15/24 10:41 Urinalysis Test 12/08/23 19:00 12/11/23 22:02 12/14/23 19:42 12/20/23 11:30 Urine WBC Clumps Present /hpf (None Seen) Urine Creatinine 21.88 mg/dL (30.0-125.0) L Urine Protein/Creatinine Ratio 2.01 Urine Sodium 40 mmol/L (40-220) Urine Total Protein 43.9 mg/dL (0.0-11.9) H Urine Color Light-yellow (Yellow) Urine Clarity Clear (Clear) Urine pH 6.0 (5.0-9.0) Urine Specific [place] 1.009 (1.001-1.035) Urine Protein 1+ (Negative) H Urine Ketones Negative (Negative) Urine Blood 2+ /uL (Negative) H Urine Nitrite Negative (Negative) Urine Bilirubin Negative (Negative) Urine Urobilinogen Normal mg/dL (Negative) Urine Leukocyte Esterase 2+ /uL (Negative) Urine RBC 6 /hpf (0 - 4) Urine WBC 68 /hpf (0 - 5) Urine Squamous Epithelial Cells None seen /hpf (<5) Urine Bacteria Few /hpf (None Seen) H Urine Glucose Normal mg/dL (Normal) Urine Osmolality 316 mOsm/kg Microbiology Microbiology Date/Time Source Procedure Growth Status 12/21/23 09:42 Trachea Gram Stain - Final Complete 12/21/23 09:42 Respiratory Culture - Final Yeast, not [place] albicans Complete 12/14/23 19:42 Voided Urine Urine Culture - Final Complete 12/09/23 09:28 Blood Blood Culture - Final NO GROWTH AFTER 5 DAYS OF INCUBATION. Complete 12/08/23 19:00 Sputum Gram Stain - Final Complete 12/08/23 19:00 Sputum Respiratory Culture - Final Complete Assessment/Plan Assessment/Plan Abnormal MRI brain scan, likely the patient has multiple stroke Coma Metabolic encephalopathy Hypoxic encephalopathy Multiple strokes Ketoacidosis Bilateral upper extremity deep venous thrombosis Status post tracheostomy Status post PEG tube/past swallow evaluation Gallstone per ultrasound (01/08/24) Assessment/Plan Monitoring Pureed diet Up to chair Physical therapy General surgery on case Cardiology on case Infectious disease on case More recommendation per clinical course Increased insulin regimen today Plan discussed with: Other (nurse) My Orders Orders - RAYMOND WHITLOCK MD Procedure Category Date Status Time Basic Metabolic Panel LAB 01/17/24 Verified 05:00 Basic Metabolic Panel LAB 01/18/24 Verified 05:00 Basic Metabolic Panel LAB 01/19/24 Verified 05:00 Basic Metabolic Panel LAB 01/20/24 Verified 05:00 Basic Metabolic Panel LAB 01/21/24 Verified 05:00 Date of Service: Jan 16, 2024 Billing Provider: RAYMOND WHITLOCK MD Common Visit Codes: [id number] INP/OBS CARE(HIGH) RAYMOND WHITLOCK MD Jan 16, 2024 18:16
--- NOTE | 2024-01-16 22:10 | DVHPN2 ---
Consult Progress Note Date Seen: Jan 15, 2024 Subjective Patient reports: Feels better (awaiting strength to return working with PT) Objective vital signs Vital Sign Date Time Temp Pulse Resp B/P (MAP) Pulse Ox O2 Delivery O2 Flow Rate FiO2 01/16/24 21:31 81 121/75 01/16/24 21:22 18 01/16/24 18:04 99 01/16/24 17:54 Room Air 0.0 01/16/24 17:54 21 01/16/24 17:00 98.5 98.5 Total Intake and Output 01/15/24 01/15/24 01/16/24 15:00 23:00 07:00 Intake Total 700 ml 625 ml Output Total 900 ml 850 ml Balance -200 ml -225 ml medications Current Medications Medications Dose Ordered Sig/Leslie Route Start Time Stop Time Status Last Admin Dose Admin Insulin Glargine 15 units DAILY@1000 SC 12/24/23 13:30 01/16/24 16:21 15 UNITS Gabapentin 100 mg BID PEG 12/26/23 22:00 01/16/24 21:30 100 MG Losartan Potassium 100 mg DAILY PEG 12/28/23 10:00 01/15/24 12:09 100 MG Metoprolol Tartrate 37.5 mg BID PEG 01/02/24 14:15 01/16/24 21:31 37.5 MG Lorazepam 0.5 mg Q4H PRN IV 01/08/24 15:00 01/15/24 23:06 0.5 MG Albuterol 2.5 mg Q8HR NEB 01/08/24 22:00 01/16/24 17:54 2.5 MG Ipratropium [place] 0.5 mg Q8HR NEB 01/08/24 22:00 01/16/24 17:54 0.5 MG Loperamide HCl 2 mg PRN PRN GT 01/08/24 17:15 Melatonin 5 mg HS PO 01/09/24 22:00 01/16/24 21:30 5 MG Levothyroxine Sodium 112 mcg QAM@0600 PO 01/09/24 06:00 01/16/24 06:27 112 MCG Pantoprazole Sodium 40 mg DAILY IV 01/11/24 10:00 01/16/24 10:40 40 MG Enteral Nutritional Formula 1,000 ml 30ML/HR GT 01/11/24 09:00 Hydralazine HCl 10 mg Q6HP PRN IV 01/13/24 02:30 01/13/24 02:42 10 MG Acetaminophen 325 mg Q6HP PRN PO 01/14/24 15:45 01/16/24 01:34 325 MG Diagnostic Test (Pha) 1 strip ACHS 01/15/24 11:30 01/16/24 21:46 1 STRIP Insulin Human Regular ACHS SC 01/15/24 11:30 01/16/24 21:45 4 UNITS Dextrose 50 ml UD PRN IV 01/15/24 10:45 Morphine Sulfate 4 mg Q2HPRN PRN IV 01/15/24 12:15 01/16/24 21:22 4 MG PHYSICAL EXAM - GENERAL: Alert and oriented x 3. No acute distress. Well-nourished. - EYES: EOMI. Anicteric. - HENT: Moist mucous membranes. No scleral icterus. No cervical lymphadenopathy. - LUNGS: Clear to auscultation bilaterally. No accessory muscle use. - CARDIOVASCULAR: Regular rate and rhythm. No murmur. No JVD. - ABDOMEN: Soft, non-tender and non-distended. No palpable masses. - EXTREMITIES: No edema. Non-tender.SKIN: No rashes or lesions. Warm. - NEUROLOGIC: No focal neurological deficits. CN II-XII grossly intact, but not individually tested. - PSYCHIATRIC: Cooperative. Appropriate mood and affect. laboratory and microbiology Laboratory Tests 01/15/24 10:41 Test 01/15/24 10:41 Range/Units Serum Glucose 368 H 74-106 mg/dL Problem List/Assessment/Plan Problem List/Assessment/Plan Assessment/Plan Problems(with codes): (1) Hospital-acquired pneumonia (2) COPD (chronic obstructive pulmonary disease) (3) DKA (diabetic ketoacidosis) (4) HTN (hypertension) (5) Closed right hip fracture Plan/Recommendation ASSESSMENT AND PLAN: ID Problem List: - Aspiration pneumonia - Acute respiratory failure - Diabetic Ketoacidosis (DKA) - Sepsis due to UTI vs pneumonia - Acute Kidney Injury (YULIANA) - Hypernatremia - Transaminitis - Fatty liver - Uncontrolled diabetes (A1C of 11.7) - Hypothyroidism - Hypertension - COPD without exacerbation - Chronic kidney disease (CKD) Assessment: This is a 68-year-old female with a past medical history of diabetes, hypertension, recurrent DKA, hypothyroidism, obesity, COPD, neuropathies, mechanical falls, liver cirrhosis, and multiple joint replacements. The patient presented to the ED with acute loss of consciousness on 11/15/2023, subsequently diagnosed with DKA and an upper GI bleed. While at [facility], a CT and MRI of the head showed concerning lesions for metastasis vs. infectious process and gallbladder issues. Due to renal failure, these images were performed without contrast. An ERCP at [facility] showed no gallstones or common bile duct obstruction. Currently, the patient is reintubated on minimal sedation and receiving broad-spectrum antibiotics for presumed meningitis and other infections. 12/09: Patient has had a repeat abdomen, pelvis, chest Ct with contrast which shows no acute findings in the abdomen and pelvis. multifocal airspace in the lungs was shown. 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 12/12: sp trach 12/13: off sedation 12/19: trach 7l,elevated temps 12/23: Sputal culture is showing normal oral pharyngeal jordan, chest X-ray shows clear lungs, yesterdays X-rays show interstitial edema otherwise clear lungs. Recomend patient continue off antibiotics and just do aspiriations. If fever starts , cosider antibiotics for aspiration pnumonia , suspect Pneumonitis 12/26: Peg tube feeding were stopped , soft abdomen and having bowel movements. Chest X-ray shows mild pulmonary congestion. Otherwise patient is stable with no fevers 12/27: Peg tube is dry and intact. Restarted on [place]. Continues to work on physical therapy 12/29: now on 6 liters of drip , improving , recommend incentive spirometry, continue working with physical therapists and encouraged out of bed 01/02: Chest X-ray shows no significant changes, white count dropped to 1.8 and hemoglobin is 9.7 01/06: white count is up to 12.7 , potentially related to new diet 01/07: leukocytosis resolved 01/09: Lesli Medeiros has determined that patient is not surgical 01/11: feeding tube placed yesterday 01/12: Chest x-ray is clear , patient on room air, suspect leukocytosis was related to aspiration pneumonitis as opposed to full on pneumonia 01/13: MRCP in the past has shown distened bladder with mild perisystic edema and gallbladder thickening , abdominal untrasound shows gallstones with thicken gallbladder with pericolycystic fluid . YOLANDA results show normal left ventricle, size and dimension of 55%, valves without any significance, no evidence of intracardic masses or vegitations Plan: - follow patient clinically off all antibiotics -follow up of Hidea scan - continue off antibiotics unless fever starts up - sp 3 week vancomycin and ceftriaxone course, will monitor patient off all antibiotics - aspiration precautions - Blood cultures monitoring. - Monitor respiratory status and adjust ventilator settings as necessary. - Monitor and manage blood glucose levels. - Supportive care as needed. Plan discussed with: Patient Dietary Evaluation Review Comments: 1) If GI is accessible consider Glucerna 1.2 @ 55 ml/hr goal rate as tolerated 2) If pt remains NPO >7 days consider TPN to meet at least 75% of estimated needs 3) Advance pt diet when medically feasible to a CCHO 45g/Cardiac diet modified per ELECTRICIAN LOCOMOTIVE recommendations 4) Continue current plan of care Expected Outcomes/Goals: 1) Pt to receive nutrition support within 7 days of NPO status 2) Pt diet to advance 3) F/U in 2-3 days NITHIN ANAYA MD Jan 16, 2024 22:10
--- NOTE | 2024-01-16 22:16 | DVHPN2 ---
Progress Note - Dictate Date Seen: Jan 16, 2024 Has the PT tested + for MRSA If YES, has PT been informed?: No Medical Necessity Reason Pt with a Central, PICC or Fol: Yes The following are medically ne: PICC Line, Carr Catheter Reason for carr catheter: Strict I&O Subjective Mr. Sanderson is a 68 years old female with a history of hypertension, diabetes, hypothyroidism, COPD, obesity, diabetic polyneuropathy, arthritis, liver cirrhosis, she was transferred back from the [facility] on 12/08/2023 after ERCP. I have seen examined the patient, I have talked to her nurse, she was doing fine, she is awake, oriented x3, She reports intermittent pain in the right foot, more so in the morning and in the evening with the urge to move and morphine helps She reports a history of restless legs syndrome and she was on "pramipexole 50 mg daily" LLU Neurosurgery consultation: The lesions likely represents infarct, recommend Re attempting MRI spectrography for further evaluation Neuro consultation: Lumbar puncture was not recommended concerning possibility of herniation EEG, 11/28/2023: No seizure/nonconvulsive status epileptics (I did not see report) TTE, 11/29/23: EF: 70-75% (I did not see report) MRI brain (no report): signal abnormality in bilateral cerebellum and right occipital lobe, punctate foci in right parietal lobe and central semiovale- unable to differentiate subacute ischemia 2/2 MR effects versus infection versus metastasis. Recommend contrast enhanced MRI MRI, 12/05/23: No evidence of demyelinating disease (I did not see report) MRI orbital, face, neck ww 12/05/2023, comparison: MR brain 11/28/2023: No evidence of mucormycosis infection. Multiple irregularly enhancing cerebellar and right occipital lesions were better evaluated on recent brain MRI MRI C-spine, 12/05/2023: No evidence of demyelinating disease in the cervical spine. Moderate degenerative changes. Grade 1 anterolisthesis of C7 on T1 MRI lumbar spine wwo, 12/05/2023: No evidence of demyelinating disease in the lumbar spine. Degenerative changes and grade 1 anterolisthesis of L4 and L5. Mild central spinal stenosis at L4-5. Jzsr-ca-diqipzal multilevel bilateral foraminal stenosis as described above MRI spectroscopy 12/05/2023: Cerebellar lesion showing moderately elevated Cho, reduced ZINA, large lipid peaks, and additional tics suspicious for amino acids and alanine. The alanine and amino acids are suspicious for an infectious process Treatment according to discharge note: ASA 81mg Qd, Lipitor 20 mg daily Urinalysis, 12/08/2023: WBC: 93, urine leukocyte esterase: 3+ ABG, 12/09/2023: Metabolic acidosis WBC/HB/PLT/MCV, 12/09/2023: 8.5/7.4/350/92.4 PT/INR/PTT, 12/08/2023: 11.4/1.08 Na, 12/08/2023: 147, 12/09/2023: 146, 12/19/2019 4:148 HCO3, 12/08/2023: 23, 12/10/2023: 22, 11/2123: 19, 12/13/23: 18, 12/16/2023: 15, 12/19/2023: 17 CPK, 12/18/2023: 54 TBI/AST/ALT/AP, 12/09/2023: 0.2/40/21/278 TG/HDL/LDL/HDL, 11/2023: 136/96/38/32 Vitamin B12, 11/2023: 2537 TSH, 11/2023: 17.87 YOLANDA, 12/10/2023: In the study done today no evidence of vegetation or masses were discernible. There is mild mitral valve regurgitation with mild anterior leaflet prolapse. No significant intracardiac lesion was discernible Echocardiogram, 11/18/2023: Normal left ventricular size and dimension. Normal left ventricular systolic function estimated ejection fraction 55%. There is a grade 1 diastolic dysfunction. Normal right ventricular size and dimension. Normal right ventricular systolic function. Mildly increased right ventricular systolic pressure 34 mm of mercury. Normal biatrial size and dimension. Normal aortic valve structure and function. Normal mitral valve structure and function. Normal tricuspid valve structure and function. The pulmonary valve is grossly normal. No pericardial effusion. Carotid Doppler, 11/21/2023: 1. No evidence of hemodynamically significant stenosis within the left carotid arterial system. 2. Antegrade flow within the left vertebral artery. 3. Cannot assess the right carotid arterial system due to central line artifact and overlying bandage. Extremity venous study, 12/09/2023: Thrombus in the LEFT cephalic and brachial vein. Thrombus in the RIGHT cephalic and basilic vein.If clinical concern/symptoms persist or worsen, short-interval follow-up study is suggested. Chest x-ray, 12/08/2023: 1. Endotracheal and gastric tubes in place as described. Satisfactory position. 2. Removal of right PICC and right IJ central venous catheter since prior. 3. Mild cardiomegaly and pulmonary vascular congestion. 4. Small opacity in the lateral right lung base which could reflect atelectasis or pneumonia MRI head, 11/21/2023: Signal abnormality in the bilateral cerebellum and right occipital lobe, as well as punctate foci in the right parietal lobe and centrum semiovale. Findings could represent regions of subacute ischemia due to embolic infarcts; however, underlying metastases or infection are not excluded. Recommend contrast-enhanced MRI vital signs Vital Sign Date Time Temp Pulse Resp B/P (MAP) Pulse Ox O2 Delivery O2 Flow Rate FiO2 01/16/24 21:31 81 121/75 01/16/24 21:22 18 01/16/24 18:04 99 01/16/24 17:54 Room Air 0.0 01/16/24 17:54 21 01/16/24 17:00 98.5 98.5 Total Intake and Output 01/15/24 01/15/24 01/16/24 15:00 23:00 07:00 Intake Total 700 ml 625 ml Output Total 900 ml 850 ml Balance -200 ml -225 ml medications Current Medications Medications Dose Ordered Sig/Leslie Route Start Time Stop Time Status Last Admin Dose Admin Insulin Glargine 15 units DAILY@1000 SC 12/24/23 13:30 01/16/24 16:21 15 UNITS Gabapentin 100 mg BID PEG 12/26/23 22:00 01/16/24 21:30 100 MG Losartan Potassium 100 mg DAILY PEG 12/28/23 10:00 01/15/24 12:09 100 MG Metoprolol Tartrate 37.5 mg BID PEG 01/02/24 14:15 01/16/24 21:31 37.5 MG Lorazepam 0.5 mg Q4H PRN IV 01/08/24 15:00 01/15/24 23:06 0.5 MG Albuterol 2.5 mg Q8HR NEB 01/08/24 22:00 01/16/24 17:54 2.5 [address] Ipratropium [place] 0.5 mg Q8HR NEB 01/08/24 22:00 01/16/24 17:54 0.5 MG Loperamide HCl 2 mg PRN PRN GT 01/08/24 17:15 Melatonin 5 mg HS PO 01/09/24 22:00 01/16/24 21:30 5 MG Levothyroxine Sodium 112 mcg QAM@0600 PO 01/09/24 06:00 01/16/24 06:27 112 MCG Pantoprazole Sodium 40 mg DAILY IV 01/11/24 10:00 01/16/24 10:40 40 MG Enteral Nutritional Formula 1,000 ml 30ML/HR GT 01/11/24 09:00 Hydralazine HCl 10 mg Q6HP PRN IV 01/13/24 02:30 01/13/24 02:42 10 MG Acetaminophen 325 mg Q6HP PRN PO 01/14/24 15:45 01/16/24 01:34 325 MG Diagnostic Test (Pha) 1 strip ACHS 01/15/24 11:30 01/16/24 21:46 1 STRIP Insulin Human Regular ACHS SC 01/15/24 11:30 01/16/24 21:45 4 UNITS Dextrose 50 ml UD PRN IV 01/15/24 10:45 Morphine Sulfate 4 mg Q2HPRN PRN IV 01/15/24 12:15 01/16/24 21:22 4 MG objective The patient is well-nourished and well-developed with no distress. Status post tracheostomy and feeding tube insertion MENTAL STATUS: Subjective CRANIAL NERVES: Pupils are equal round and reactive to light briskly, normal external eye movement, normal sensation and motor examination in the lateral trigeminal nerve distribution, no facial weakness. SENSATION: Okay to pinprick and light touch MOTOR: Normal tone in the upper and lower extremity. Normal muscle bulk. No fasciculations. Muscle Bear: 4/5. REFLEXES: Deep tendon reflexes are symmetrical. Bilateral upgoing toes CEREBELLAR/COORDINATION: No ataxia GAIT/STATION: deferred. laboratory and microbiology Laboratory Tests 01/15/24 10:41 Test 01/15/24 10:41 Range/Units Serum Glucose 368 H 74-106 mg/dL Problem List Abnormal MRI brain scan, likely the patient has multiple stroke Coma Metabolic encephalopathy Hypoxic encephalopathy Multiple strokes Ketoacidosis Bilateral upper extremity deep venous thrombosis Status post tracheostomy Status post PEG tube/past swallow evaluation Gallstone per ultrasound (01/08/24) Restless leg syndrome Assessment/Plan Monitoring Supportive treatment Telemetry Iron profile Ferritin Pramipexole 0.125 mg four tablets daily in the evening Pureed diet Up to chair Physical therapy General surgery on case Cardiology on case Infectious disease on case More recommendation per clinical course This medical document was created using an electronic medical record system with [employer] dictation system. Although this document has been carefully reviewed, there may still be some phonetic and typographical errors. These areas are purely typographical due to imperfections of the software programs, and do not reflect any compromise in the patient's medical care. Prognosis poor Dietary Evaluation Review Comments: 1) If GI is accessible consider Glucerna 1.2 @ 55 ml/hr goal rate as tolerated 2) If pt remains NPO >7 days consider TPN to meet at least 75% of estimated needs 3) Advance pt diet when medically feasible to a CCHO 45g/Cardiac diet modified per INTERPRETATIVE DANCER recommendations 4) Continue current plan of care Expected Outcomes/Goals: 1) Pt to receive nutrition support within 7 days of NPO status 2) Pt diet to advance 3) F/U in 2-3 days Plan discussed with: Other DREW FAGAN MD Jan 16, 2024 22:15
[2024-01-17] VITALS (16 sets, daily range): BP systolic 125–149; BP diastolic 54–57; PULSE 63–95; RESP 17–20; TEMP 98.3–98.7; O2SAT 90–100
[2024-01-17 06:24] LABS: Chloride 99 mmol/L (98-107); Potassium 4.7 mmol/L (3.5-5.1); Sodium 131 mmol/L (136-145)
[2024-01-17 06:25] LABS: Anion Gap 6 (5-15); Calcium 10.5 mg/dL (8.7-10.4); Carbon Dioxide 26 mmol/L (20-31)
[2024-01-17 06:30] LABS: BUN/Creatinine Ratio 14.8 (10.0-20.0); Blood Urea Nitrogen 13 mg/dL (9-23); Glucose 72 mg/dL (74-106)
[2024-01-17 06:31] LABS: % Iron Saturation 6.4 % (15-50)
[2024-01-17] MEDS: SODIUM CHL 3% 500 ML IV ONE (11:07)
--- NOTE | 2024-01-17 17:22 | DVHPN2 ---
Progress Note - Dictate Date Seen: Jan 17, 2024 Has the PT tested + for MRSA If YES, has PT been informed?: No Medical Necessity Reason Pt with a Central, PICC or Fol: Yes The following are medically ne: PICC Line, Carr Catheter Reason for carr catheter: Strict I&O Subjective Patient seen at bedside Resting comfortably Abdominal pain is improved Liver enzymes trending down Tracheostomy is capped Patient passed swallow eval is currently on a pureed diet Patient is undergoing a bath Patient had an episode of acute cholecystitis that is now resolving vital signs Vital Sign Date Time Temp Pulse Resp B/P (MAP) Pulse Ox O2 Delivery O2 Flow Rate FiO2 01/17/24 15:37 83 18 132/53 01/17/24 14:44 100 01/17/24 14:38 Room Air 0.0 01/17/24 14:38 21 01/17/24 05:00 98.3 98.3 Total Intake and Output 01/16/24 01/16/24 01/17/24 15:00 23:00 07:00 Intake Total 550 ml 240 ml Output Total 200 ml 600 ml Balance 350 ml -360 ml medications Current Medications Medications Dose Ordered Sig/Leslie Route Start Time Stop Time Status Last Admin Dose Admin Insulin Glargine 15 units DAILY@1000 SC 12/24/23 13:30 01/17/24 09:52 15 UNITS Gabapentin 100 mg BID PEG 12/26/23 22:00 01/17/24 09:45 100 MG Losartan Potassium 100 mg DAILY PEG 12/28/23 10:00 01/17/24 09:45 100 MG Metoprolol Tartrate 37.5 mg BID PEG 01/02/24 14:15 01/17/24 09:46 37.5 MG Lorazepam 0.5 mg Q4H PRN IV 01/08/24 15:00 01/16/24 22:45 0.5 MG Albuterol 2.5 mg Q8HR NEB 01/08/24 22:00 01/17/24 14:35 2.5 MG Ipratropium [place] 0.5 mg Q8HR NEB 01/08/24 22:00 01/17/24 14:35 0.5 MG Loperamide HCl 2 mg PRN PRN GT 01/08/24 17:15 Melatonin 5 mg HS PO 01/09/24 22:00 01/16/24 21:30 5 MG Levothyroxine Sodium 112 mcg QAM@0600 PO 01/09/24 06:00 01/17/24 05:36 112 MCG Pantoprazole Sodium 40 mg DAILY IV 01/11/24 10:00 01/17/24 09:44 40 MG Enteral Nutritional Formula 1,000 ml 30ML/HR GT 01/11/24 09:00 Hydralazine HCl 10 mg Q6HP PRN IV 01/13/24 02:30 01/13/24 02:42 10 MG Acetaminophen 325 mg Q6HP PRN PO 01/14/24 15:45 01/16/24 01:34 325 MG Diagnostic Test (Pha) 1 strip ACHS 01/15/24 11:30 01/17/24 11:59 1 STRIP Insulin Human Regular ACHS SC 01/15/24 11:30 01/17/24 11:58 3 UNITS Dextrose 50 ml UD PRN IV 01/15/24 10:45 Morphine Sulfate 4 mg Q2HPRN PRN IV 01/15/24 12:15 01/17/24 15:07 4 MG Pramipexole Dihydrochloride 0.5 mg HS PO 01/17/24 22:00 objective General Appearance: Alert and awake no distress Lungs: Clear to auscultation, tracheostomy collar Cardiovascular: Regular rate, Normal S1, Normal S2 Abdomen: Normal bowel sounds, Soft, NT obese PEG tube Extremities: No edema laboratory and microbiology Laboratory Tests 01/17/24 14:15 01/17/24 05:43 01/15/24 10:41 Test 01/17/24 05:43 Range/Units Serum Glucose 72 L 74-106 mg/dL Problems(with codes): (1) Elevated liver enzymes (2) Cholelithiasis and acute cholecystitis without obstruction (3) Hospital-acquired pneumonia (4) DKA (diabetic ketoacidosis) (5) COPD (chronic obstructive pulmonary disease) Prognosis Plan Acute cholecystitis appears to be improving Liver enzymes are downtrending Monitor calcium levels Patient was on IV antibiotics Discharge planning as per hospitalist Dietary Evaluation Review Comments: 1) If GI is accessible consider Glucerna 1.2 @ 55 ml/hr goal rate as tolerated 2) If pt remains NPO >7 days consider TPN to meet at least 75% of estimated needs 3) Advance pt diet when medically feasible to a CCHO 45g/Cardiac diet modified per VENEER MEASURER recommendations 4) Continue current plan of care Expected Outcomes/Goals: 1) Pt to receive nutrition support within 7 days of NPO status 2) Pt diet to advance 3) F/U in 2-3 days Plan discussed with: Patient YOLIE FRIEDMAN MD Jan 17, 2024 17:22
--- NOTE | 2024-01-17 19:16 | DVHPNRES ---
Progress Note Date Seen: Jan 17, 2024 Resident Creating Document: MAKENNA MARTINEZ RESIDENT Has the PT tested + for MRSA If YES, has PT been informed?: No Medical Necessity Reason Pt with a Central, PICC or Fol: Yes The following are medically ne: PICC Line, Carr Catheter Reason for carr catheter: Strict I&O Subjective Review of Systems A 68 y old female with PMHx of HTN, DM type 2, hypothyroidism, COPD, obesity, liver cirrhosis Home meds: atorvastatin, vit D, glipizide, inuslin aspart and glargine, levothyroxine, lisinoprl, pramipezole, pregabalin She came initially at [facility] on 11/16/2023 for AMS and DKA in this facility she was intubated and transfer to [facility]. Here, a CT scan of the abdomen showed CBD dilation and was sent to [facility] 11/26/2023 for ERCP, which didn't show any obstruction, Also a brain MRI was done showing mulitple old infracts. Patient was again transferred to [facility] 11/28/2023 extubated and On 12/03/2023 patient required reintubation, on 12/12/23: gastrostomy was done and 12/13/23 tracheostomy was done. Cultures: 12/08/23: sputum negative 12/08/23: urine negative 12/09/23: blood culture negative 5 days 12/14/23: urine negative 12/21/23: respiratory culture normal jordan Images: 01/08/24: abdomen US Cholelithiasis with thickened gallbladder wall and pericholecystic fluid. The common bile duct is also dilated. Although the ultrasound Mclain's sign is negative ultrasound findings suggest acute cholecystitis. 16.87 cm liver with findings suggesting steatosis. 12/10/23: Abdomen/ pelvis CT scan No acute findings in the abdomen or pelvis. Multifocal airspace disease. 11/21/23: MRI brain Signal abnormality in the bilateral cerebellum and right occipital lobe, as well as punctate foci in the right parietal lobe and centrum semiovale. Findings could represent regions of subacute ischemia due to embolic infarcts; however, underlying metastases or infection are not excluded 11/21/23: MRCP Distended gallbladder with mild pericholecystic edema and gallbladder wall thickening. No definite gallbladder stones or sludge are present. There is diffuse dilation of the extrahepatic common bile duct measuring up to 1.1 cm. There is no definite appreciable obstructing stone or mass. Small ampullary lesion or stone is not completely excluded. ERCP could be obtained to further evaluate if clinically indicated. Patient is alert and oriented in person, place and time. Speaking sentences, answering all type of questions and working with physical therapy twice a day. Patient passes swallow evaluation 01/06/2024 and is currently tolerating pureed diet. She has tracheostomy speaking valve, PT is reinforced, probably decannulation tomorrow Objective vital signs Vital Sign Date Time Temp Pulse Resp B/P (MAP) Pulse Ox O2 Delivery O2 Flow Rate FiO2 01/17/24 15:37 83 18 132/53 01/17/24 14:44 100 01/17/24 14:38 Room Air 0.0 01/17/24 14:38 21 01/17/24 05:00 98.3 98.3 Total Intake and Output 01/16/24 01/16/24 01/17/24 15:00 23:00 07:00 Intake Total 550 ml 240 ml Output Total 200 ml 600 ml Balance 350 ml -360 ml medications Current Medications Medications Dose Ordered Sig/Leslie Route Start Time Stop Time Status Last Admin Dose Admin Insulin Glargine 15 units DAILY@1000 SC 12/24/23 13:30 01/17/24 09:52 15 UNITS Gabapentin 100 mg BID PEG 12/26/23 22:00 01/17/24 09:45 100 MG Losartan Potassium 100 mg DAILY PEG 12/28/23 10:00 01/17/24 09:45 100 MG Metoprolol Tartrate 37.5 mg BID PEG 01/02/24 14:15 01/17/24 09:46 37.5 MG Lorazepam 0.5 mg Q4H PRN IV 01/08/24 15:00 01/16/24 22:45 0.5 MG Albuterol 2.5 mg Q8HR NEB 01/08/24 22:00 01/17/24 18:27 2.5 MG Ipratropium [place] 0.5 mg Q8HR NEB 01/08/24 22:00 01/17/24 18:27 0.5 MG Loperamide HCl 2 mg PRN PRN GT 01/08/24 17:15 Melatonin 5 mg HS PO 01/09/24 22:00 01/16/24 21:30 5 MG Levothyroxine Sodium 112 mcg QAM@0600 PO 01/09/24 06:00 01/17/24 05:36 112 MCG Pantoprazole Sodium 40 mg DAILY IV 01/11/24 10:00 01/17/24 09:44 40 MG Enteral Nutritional Formula 1,000 ml 30ML/HR GT 01/11/24 09:00 Hydralazine HCl 10 mg Q6HP PRN IV 01/13/24 02:30 01/13/24 02:42 10 MG Acetaminophen 325 mg Q6HP PRN PO 01/14/24 15:45 01/16/24 01:34 325 MG Diagnostic Test (Pha) 1 strip ACHS 01/15/24 11:30 01/17/24 18:11 1 STRIP Insulin Human Regular ACHS SC 01/15/24 11:30 01/17/24 11:58 3 UNITS Dextrose 50 ml UD PRN IV 01/15/24 10:45 Morphine Sulfate 4 mg Q2HPRN PRN IV 01/15/24 12:15 01/17/24 15:07 4 MG Pramipexole Dihydrochloride 0.5 mg HS PO 01/17/24 22:00 Examination Alert HEENT: Normocephalic, atraumatic, moist mucous membranes, trach tube on place, talking Respiratory/pulmonary: Bilateral lung sounds grossly clear, Cardiovascular: Regular heart sounds S1 and S2 with no associated murmurs. Abdomen: Abdomen nondistended, there is mild pain to palpation to the epigastric region, no palpable masses. PEG tube on place with no signs in infection at this time. Extremities: There are no peripheral edema at this time. laboratory and microbiology Laboratory Tests 01/17/24 14:15 01/17/24 05:43 01/15/24 10:41 Test 01/17/24 05:43 Range/Units Serum Glucose 72 L 74-106 mg/dL Microbiology Date/Time Source Procedure Growth Status 12/21/23 09:42 Trachea Gram Stain - Final Complete 12/21/23 09:42 Respiratory Culture - Final Yeast, not [place] albicans Complete 12/14/23 19:42 Voided Urine Urine Culture - Final Complete 12/09/23 09:28 Blood Blood Culture - Final NO GROWTH AFTER 5 DAYS OF INCUBATION. 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 #Hypertensive heart disease on acute on chronic diastolic heart failure -Continue losartan 50mg QD -Continue metoprolol 25mg PO BID Respiratory #S/P tracheostomy (12/13/23) continue tracheostomy speaking valve patient is cap, probably decannulation tomorrow Continue puree diet Patient has g tube PT is reinforced #Acute hypoxic respiratory failure likely in the setting of aspiration pneumonia No antibiotics according to ID Swallow evaluation 01/06/2024: patient is tolerate puree and nectar Infectious disease #Sepsis likely due to aspiration pneumonia and UTI resolved -Completed antibiotic treatment #Acute cholecystitis Patient is poor candidate for elective procedures, no need of emergency procedures at the time HIDA scan is ordered pending Endocrinology Type 2 diabetes mellitus, DKA : uncontrolled -Continue mild sliding scale insulin -Continue Lantus 15 units q.a.m. Hypothyroidism -Continue levothyroxine 112mcgQAM Hyponatremia NS 3% now 134 Gastroenterology #s/p g tube #Acute cholecystitis describe above #Hepatic steatosis #Dilated CBD #Acute transaminitis trending down Hematology Superficial thrombophlebitis of right cephalic and basilic veins -no need for anticoagulation NO SONOGRAPHIC EVIDENCE FOR DEEP VENOUS THROMBOSIS IN THE LEFT UPPER EXTREMITY VEINS. Nephrology YULIANA likely due to VMN resolving -Monitor kidney function Nutrition Continue puree diet Continue physical therapy to twice a day Goals of care discussed with the patient for 25 min Plan discussed with Dr. Razo Plan discussed with: Patient, Other (rn) Dietary Evaluation Review Comments: 1) If GI is accessible consider Glucerna 1.2 @ 55 ml/hr goal rate as tolerated 2) If pt remains NPO >7 days consider TPN to meet at least 75% of estimated needs 3) Advance pt diet when medically feasible to a CCHO 45g/Cardiac diet modified per PERSONNEL SCHEDULER recommendations 4) Continue current plan of care Expected Outcomes/Goals: 1) Pt to receive nutrition support within 7 days of NPO status 2) Pt diet to advance 3) F/U in 2-3 days Date of Service: Jan 17, 2024 Billing Provider: FREEDOM RAZO MD Common Visit Codes: [id number] INP/OBS CARE(HIGH) MAKENNA MARTINEZ RESIDENT Jan 17, 2024 19:16 FREEDOM RAZO MD Jan 18, 2024 14:30
[2024-01-17] MEDS: PRAMIPEXOLE DIHYDROCHLORIDE MO 0.25 MG TAB PO SCH (22:54)
[2024-01-18] VITALS (14 sets, daily range): BP systolic 101–149; BP diastolic 44–69; PULSE 64–95; RESP 16–20; TEMP 97.9–98.7; O2SAT 94–100
[2024-01-18 07:11] LABS: Basophils # (auto) 0.1 10 ^3/uL (0-0.2); Eosinophils # (auto) 0.4 10 ^3/uL (0-0.8); Hematocrit 28.1 % (36.0-46.0); Hemoglobin 8.8 g/dL (12.2-16.2); Monocytes # (auto) 0.4 10 ^3/uL (0-1.3); Nucleated Red Blood Cells % 0.1 %
[2024-01-18 07:15] LABS: Basophils % (auto) 0.7 % (0.0-2.0); Eosinophils % (auto) 5.3 % (0.0-7.0); Lymphocytes # (auto) 3.2 10 ^3/uL (0.4-5.4); Lymphocytes % (auto) 40.4 % (10.0-50.0); Mean Corpuscular Hgb Conc. 31.4 g/dL (32.0-36.0); Mean Corpuscular Volume 85.7 fL (80.0-100.0); Monocytes % (auto) 5.2 % (0.0-12.0); Neutrophils # (auto) 3.9 10 ^3/uL (1.6-8.6); Neutrophils % (auto) 48.4 % (37.0-80.0); Platelet Count (auto) 428 10^3/uL (140-450); Red Blood Cells 3.27 10^6/uL (4.0-5.20); Red Cell Distribution Width 16.2 % (11.8-14.3)
[2024-01-18 07:33] LABS: Alanine Aminotransferase 34 U/L (7-40); Albumin 3.7 g/dL (3.2-4.8); Alkaline Phosphatase 385 U/L (46-116); Anion Gap 11 (5-15); Aspartate Aminotransferase 15 U/L (13-40); BUN/Creatinine Ratio 16.1 (10.0-20.0); Bilirubin, Total 0.2 mg/dL (0.2-1.0); Blood Urea Nitrogen 15 mg/dL (9-23); Calcium 10.3 mg/dL (8.7-10.4); Carbon Dioxide 22 mmol/L (20-31); Chloride 100 mmol/L (98-107); Glucose 165 mg/dL (74-106); Sodium 133 mmol/L (136-145); Total Protein 6.5 g/dL (5.7-8.2)
[2024-01-18] MEDS: ACETYLCYSTEINE 20%(200MG/ML) SOL 4ML NEB SCH (13:11)
--- NOTE | 2024-01-18 15:18 | DVHPN2 ---
Progress Note - Dictate Date Seen: Jan 18, 2024 Has the PT tested + for MRSA If YES, has PT been informed?: No Medical Necessity Reason Pt with a Central, PICC or Fol: Yes The following are medically ne: PICC Line, Carr Catheter Reason for carr catheter: Strict I&O Subjective And had tracheostomy removed Patient went down for a HIDA scan today Liver enzymes trending down Patient is currently on a pureed diet vital signs Vital Sign Date Time Temp Pulse Resp B/P (MAP) Pulse Ox O2 Delivery O2 Flow Rate FiO2 01/18/24 14:50 76 17 131/59 01/18/24 14:45 94 Room Air* 0 21 01/18/24 09:16 98.6 98.6 Total Intake and Output 01/17/24 01/17/24 01/18/24 15:00 23:00 07:00 Intake Total 165 ml Balance 165 ml medications Current Medications Medications Dose Ordered Sig/Leslie Route Start Time Stop Time Status Last Admin Dose Admin Insulin Glargine 15 units DAILY@1000 SC 12/24/23 13:30 01/18/24 11:15 15 UNITS Gabapentin 100 mg BID PEG 12/26/23 22:00 01/18/24 10:00 100 MG Losartan Potassium 100 mg DAILY PEG 12/28/23 10:00 01/18/24 11:32 100 MG Metoprolol Tartrate 37.5 mg BID PEG 01/02/24 14:15 01/18/24 11:31 37.5 MG Lorazepam 0.5 mg Q4H PRN IV 01/08/24 15:00 01/16/24 22:45 0.5 MG Albuterol 2.5 mg Q8HR NEB 01/08/24 22:00 01/18/24 13:11 2.5 MG Ipratropium [place] 0.5 mg Q8HR NEB 01/08/24 22:00 01/18/24 13:11 0.5 MG Loperamide HCl 2 mg PRN PRN GT 01/08/24 17:15 Melatonin 5 mg HS PO 01/09/24 22:00 01/17/24 22:54 5 MG Levothyroxine Sodium 112 mcg QAM@0600 PO 01/09/24 06:00 01/18/24 06:21 112 MCG Hydralazine HCl 10 mg Q6HP PRN IV 01/13/24 02:30 01/13/24 02:42 10 MG Acetaminophen 325 mg Q6HP PRN PO 01/14/24 15:45 01/16/24 01:34 325 MG Diagnostic Test (Pha) 1 strip ACHS 01/15/24 11:30 01/18/24 11:40 1 STRIP Insulin Human Regular ACHS SC 01/15/24 11:30 01/18/24 11:29 8 UNITS Dextrose 50 ml UD PRN IV 01/15/24 10:45 Morphine Sulfate 4 mg Q2HPRN PRN IV 01/15/24 12:15 01/18/24 14:50 4 MG Pramipexole Dihydrochloride 0.5 mg HS PO 01/17/24 22:00 01/17/24 22:54 0.5 MG Acetylcysteine 200 mg Q8HR NEB 01/18/24 14:00 01/18/24 13:11 200 MG Pantoprazole Sodium 40 mg DAILY@0600 PO 01/19/24 06:00 objective General Appearance: Alert and awake no distress Lungs: Clear to auscultation, tracheostomy collar Cardiovascular: Regular rate, Normal S1, Normal S2 Abdomen: Normal bowel sounds, Soft, NT obese PEG tube Extremities: No edema laboratory and microbiology Laboratory Tests 01/18/24 06:53 Test 01/18/24 06:53 Range/Units Serum Glucose 165 H 74-106 mg/dL Problems(with codes): (1) Elevated liver enzymes (2) Cholelithiasis and acute cholecystitis without obstruction (3) Hospital-acquired pneumonia (4) DKA (diabetic ketoacidosis) (5) COPD (chronic obstructive pulmonary disease) Prognosis Plan Acute cholecystitis appears to be improving HIDA scan results pending Liver enzymes are downtrending Monitor calcium levels Patient was on IV antibiotics Discharge planning as per hospitalis Dietary Evaluation Review Comments: 1) If GI is accessible consider Glucerna 1.2 @ 55 ml/hr goal rate as tolerated 2) If pt remains NPO >7 days consider TPN to meet at least 75% of estimated needs 3) Advance pt diet when medically feasible to a CCHO 45g/Cardiac diet modified per PHOTOENGRAVING SKETCH MAKER recommendations 4) Continue current plan of care Expected Outcomes/Goals: 1) Pt to receive nutrition support within 7 days of NPO status 2) Pt diet to advance 3) F/U in 2-3 days Plan discussed with: Other (Nurse) YOLIE FRIEDMAN MD Jan 18, 2024 15:18
--- NOTE | 2024-01-18 16:24 | DVH ---
NM NM HIDA SCAN HISTORY: This is a gallstones. pain COMPARISON: 01/07 PROCEDURE: Following IV injection of 6.2 mCi Tc99m Choletec, serial images were obtained of the abdo men for 60 minutes. FINDINGS: There is normal visualization of the liver and bile ducts with activity reaching the small bowel within 60 minutes. There is activity in the gallbladder. On delayed images at 22 hours, there is no gallbladder activity and all activity in the bowel. IMPRESSION: Negative hepatobiliary study for cholecystitis.
--- NOTE | 2024-01-18 20:59 | DVHPN2 ---
Consult Progress Note Date Seen: Jan 18, 2024 Subjective Patient reports: Other (connie hernandez being suctioned from trach, it is capped, doing well, breathing room air ) Objective vital signs Vital Sign Date Time Temp Pulse Resp B/P (MAP) Pulse Ox O2 Delivery O2 Flow Rate FiO2 01/18/24 20:14 Room Air* 0 21 01/18/24 18:15 70 18 108/53 01/18/24 17:21 97.9 95 97.9 Total Intake and Output 01/17/24 01/17/24 01/18/24 15:00 23:00 07:00 Intake Total 165 ml Balance 165 ml medications Current Medications Medications Dose Ordered Sig/Leslie Route Start Time Stop Time Status Last Admin Dose Admin Insulin Glargine 15 units DAILY@1000 SC 12/24/23 13:30 01/18/24 11:15 15 UNITS Gabapentin 100 mg BID PEG 12/26/23 22:00 01/18/24 10:00 100 MG Losartan Potassium 100 mg DAILY PEG 12/28/23 10:00 01/18/24 11:32 100 MG Metoprolol Tartrate 37.5 mg BID PEG 01/02/24 14:15 01/18/24 11:31 37.5 MG Lorazepam 0.5 mg Q4H PRN IV 01/08/24 15:00 01/16/24 22:45 0.5 MG Albuterol 2.5 mg Q8HR NEB 01/08/24 22:00 01/18/24 18:15 2.5 MG Ipratropium [place] 0.5 mg Q8HR NEB 01/08/24 22:00 01/18/24 18:15 0.5 MG Loperamide HCl 2 mg PRN PRN GT 01/08/24 17:15 Melatonin 5 mg HS PO 01/09/24 22:00 01/17/24 22:54 5 MG Levothyroxine Sodium 112 mcg QAM@0600 PO 01/09/24 06:00 01/18/24 06:21 112 MCG Hydralazine HCl 10 mg Q6HP PRN IV 01/13/24 02:30 01/13/24 02:42 10 MG Acetaminophen 325 mg Q6HP PRN PO 01/14/24 15:45 01/16/24 01:34 325 MG Diagnostic Test (Pha) 1 strip ACHS 01/15/24 11:30 01/18/24 17:26 1 STRIP Insulin Human Regular ACHS SC 01/15/24 11:30 01/18/24 11:29 8 UNITS Dextrose 50 ml UD PRN IV 01/15/24 10:45 Morphine Sulfate 4 mg Q2HPRN PRN IV 01/15/24 12:15 01/18/24 17:45 4 MG Pramipexole Dihydrochloride 0.5 mg HS PO 01/17/24 22:00 01/17/24 22:54 0.5 MG Acetylcysteine 200 mg Q8HR NEB 01/18/24 14:00 01/18/24 18:15 200 MG Pantoprazole Sodium 40 mg DAILY@0600 PO 01/19/24 06:00 PHYSICAL EXAM - GENERAL: Alert and oriented x 3. No acute distress. Well-nourished. - EYES: EOMI. Anicteric. - HENT: Moist mucous membranes. No scleral icterus. No cervical lymphadenopathy. - LUNGS: Clear to auscultation bilaterally. No accessory muscle use. - CARDIOVASCULAR: Regular rate and rhythm. No murmur. No JVD. - ABDOMEN: Soft, non-tender and non-distended. No palpable masses. - EXTREMITIES: No edema. Non-tender.SKIN: No rashes or lesions. Warm. - NEUROLOGIC: No focal neurological deficits. CN II-XII grossly intact, but not individually tested. - PSYCHIATRIC: Cooperative. Appropriate mood and affect. laboratory and microbiology Laboratory Tests 01/18/24 06:53 Test 01/18/24 06:53 Range/Units Serum Glucose 165 H 74-106 mg/dL Problem List/Assessment/Plan Problems(with codes): (1) COPD (chronic obstructive pulmonary disease) (2) HTN (hypertension) (3) DKA (diabetic ketoacidosis) (4) Hospital-acquired pneumonia (5) Closed right hip fracture (6) Cholelithiasis and acute cholecystitis without obstruction (7) Elevated liver enzymes Problem List/Assessment/Plan Assessment/Plan Problems(with codes): (1) Hospital-acquired pneumonia (2) COPD (chronic obstructive pulmonary disease) (3) DKA (diabetic ketoacidosis) (4) HTN (hypertension) (5) Closed right hip fracture Plan/Recommendation ASSESSMENT AND PLAN: ID Problem List: - Aspiration pneumonia - Acute respiratory failure - Diabetic Ketoacidosis (DKA) - Sepsis due to UTI vs pneumonia - Acute Kidney Injury (YULIANA) - Hypernatremia - Transaminitis - Fatty liver - Uncontrolled diabetes (A1C of 11.7) - Hypothyroidism - Hypertension - COPD without exacerbation - Chronic kidney disease (CKD) Assessment: This is a 68-year-old female with a past medical history of diabetes, hypertension, recurrent DKA, hypothyroidism, obesity, COPD, neuropathies, mechanical falls, liver cirrhosis, and multiple joint replacements. The patient presented to the ED with acute loss of consciousness on 11/15/2023, subsequently diagnosed with DKA and an upper GI bleed. While at [facility], a CT and MRI of the head showed concerning lesions for metastasis vs. infectious process and gallbladder issues. Due to renal failure, these images were performed without contrast. An ERCP at [facility] showed no gallstones or common bile duct obstruction. Currently, the patient is reintubated on minimal sedation and receiving broad-spectrum antibiotics for presumed meningitis and other infections. 12/09: Patient has had a repeat abdomen, pelvis, chest Ct with contrast which shows no acute findings in the abdomen and pelvis. multifocal airspace in the lungs was shown. 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 12/12: sp trach 12/13: off sedation 12/19: trach 7l,elevated temps 12/23: Sputal culture is showing normal oral pharyngeal jordan, chest X-ray shows clear lungs, yesterdays X-rays show interstitial edema otherwise clear lungs. Recomend patient continue off antibiotics and just do aspiriations. If fever starts , cosider antibiotics for aspiration pnumonia , suspect Pneumonitis 12/26: Peg tube feeding were stopped , soft abdomen and having bowel movements. Chest X-ray shows mild pulmonary congestion. Otherwise patient is stable with no fevers 12/27: Peg tube is dry and intact. Restarted on [place]. Continues to work on physical therapy 12/29: now on 6 liters of drip , improving , recommend incentive spirometry, continue working with physical therapists and encouraged out of bed 01/02: Chest X-ray shows no significant changes, white count dropped to 1.8 and hemoglobin is 9.7 01/06: white count is up to 12.7 , potentially related to new diet 01/07: leukocytosis resolved 01/09: Lesli Medeiros has determined that patient is not surgical 01/11: feeding tube placed yesterday 01/12: Chest x-ray is clear , patient on room air, suspect leukocytosis was related to aspiration pneumonitis as opposed to full on pneumonia 01/13: MRCP in the past has shown distened bladder with mild perisystic edema and gallbladder thickening , abdominal untrasound shows gallstones with thicken gallbladder with pericolycystic fluid . YOLANDA results show normal left ventricle, size and dimension of 55%, valves without any significance, no evidence of intracardic masses or vegitations 01/17: patients trach tube is capped Plan: - follow patient clinically off all antibiotics -follow up of Hidea scan - continue off antibiotics unless fever starts up - sp 3 week vancomycin and ceftriaxone course, will monitor patient off all antibiotics - aspiration precautions - Blood cultures monitoring. - Monitor respiratory status and adjust ventilator settings as necessary. - Monitor and manage blood glucose levels. - Supportive care as needed. Plan discussed with: Other Dietary Evaluation Review Comments: 1) If GI is accessible consider Glucerna 1.2 @ 55 ml/hr goal rate as tolerated 2) If pt remains NPO >7 days consider TPN to meet at least 75% of estimated needs 3) Advance pt diet when medically feasible to a CCHO 45g/Cardiac diet modified per HOSTEL MANAGER recommendations 4) Continue current plan of care Expected Outcomes/Goals: 1) Pt to receive nutrition support within 7 days of NPO status 2) Pt diet to advance 3) F/U in 2-3 days NITHIN ANAYA MD Jan 18, 2024 20:59
--- NOTE | 2024-01-18 22:16 | DVHPNRES ---
Progress Note Date Seen: Jan 18, 2024 Resident Creating Document: MAKENNA MARTINEZ RESIDENT Has the PT tested + for MRSA If YES, has PT been informed?: No Medical Necessity Reason Pt with a Central, PICC or Fol: Yes The following are medically ne: PICC Line, Carr Catheter Reason for carr catheter: Strict I&O Subjective Review of Systems A 68 y old female with PMHx of HTN, DM type 2, hypothyroidism, COPD, obesity, liver cirrhosis Home meds: atorvastatin, vit D, glipizide, inuslin aspart and glargine, levothyroxine, lisinoprl, pramipezole, pregabalin She came initially at [facility] on 11/16/2023 for AMS and DKA in this facility she was intubated and transfer to [facility]. Here, a CT scan of the abdomen showed CBD dilation and was sent to [facility] 11/26/2023 for ERCP, which didn't show any obstruction, Also a brain MRI was done showing mulitple old infracts. Patient was again transferred to [facility] 11/28/2023 extubated and On 12/03/2023 patient required reintubation, on 12/12/23: gastrostomy was done and 12/13/23 tracheostomy was done. Cultures: 12/08/23: sputum negative 12/08/23: urine negative 12/09/23: blood culture negative 5 days 12/14/23: urine negative 12/21/23: respiratory culture normal jordan Images: 01/08/24: abdomen US Cholelithiasis with thickened gallbladder wall and pericholecystic fluid. The common bile duct is also dilated. Although the ultrasound Mclain's sign is negative ultrasound findings suggest acute cholecystitis. 16.87 cm liver with findings suggesting steatosis. 12/10/23: Abdomen/ pelvis CT scan No acute findings in the abdomen or pelvis. Multifocal airspace disease. 11/21/23: MRI brain Signal abnormality in the bilateral cerebellum and right occipital lobe, as well as punctate foci in the right parietal lobe and centrum semiovale. Findings could represent regions of subacute ischemia due to embolic infarcts; however, underlying metastases or infection are not excluded 11/21/23: MRCP Distended gallbladder with mild pericholecystic edema and gallbladder wall thickening. No definite gallbladder stones or sludge are present. There is diffuse dilation of the extrahepatic common bile duct measuring up to 1.1 cm. There is no definite appreciable obstructing stone or mass. Small ampullary lesion or stone is not completely excluded. ERCP could be obtained to further evaluate if clinically indicated. 01/18/2024 HIDA scan negative for cholecystitis Patient is alert and oriented in person, place and time. Speaking sentences, answering all type of questions and working with physical therapy twice a day. Patient passes swallow evaluation 01/06/2024 and is currently tolerating pureed diet. Patient tolerated decannulation Patient reports: Feels better Objective vital signs Vital Sign Date Time Temp Pulse Resp B/P (MAP) Pulse Ox O2 Delivery O2 Flow Rate FiO2 01/18/24 21:28 85 115/44 01/18/24 20:14 Room Air* 0 21 01/18/24 18:15 18 01/18/24 17:21 97.9 95 97.9 Total Intake and Output 01/17/24 01/17/24 01/18/24 15:00 23:00 07:00 Intake Total 165 ml Balance 165 ml medications Current Medications Medications Dose Ordered Sig/Leslie Route Start Time Stop Time Status Last Admin Dose Admin Insulin Glargine 15 units DAILY@1000 SC 12/24/23 13:30 01/18/24 11:15 15 UNITS Gabapentin 100 mg BID PEG 12/26/23 22:00 01/18/24 21:28 100 MG Losartan Potassium 100 mg DAILY PEG 12/28/23 10:00 01/18/24 11:32 100 MG Metoprolol Tartrate 37.5 mg BID PEG 01/02/24 14:15 01/18/24 21:28 37.5 MG Lorazepam 0.5 mg Q4H PRN IV 01/08/24 15:00 01/16/24 22:45 0.5 MG Albuterol 2.5 mg Q8HR NEB 01/08/24 22:00 01/18/24 18:15 2.5 MG Ipratropium [place] 0.5 mg Q8HR NEB 01/08/24 22:00 01/18/24 18:15 0.5 MG Loperamide HCl 2 mg PRN PRN GT 01/08/24 17:15 Melatonin 5 mg HS PO 01/09/24 22:00 01/18/24 21:29 5 MG Levothyroxine Sodium 112 mcg QAM@0600 PO 01/09/24 06:00 01/18/24 06:21 112 MCG Hydralazine HCl 10 mg Q6HP PRN IV 01/13/24 02:30 01/13/24 02:42 10 MG Acetaminophen 325 mg Q6HP PRN PO 01/14/24 15:45 01/16/24 01:34 325 MG Diagnostic Test (Pha) 1 strip ACHS 01/15/24 11:30 01/18/24 21:23 1 STRIP Insulin Human Regular ACHS SC 01/15/24 11:30 01/18/24 21:26 3 UNITS Dextrose 50 ml UD PRN IV 01/15/24 10:45 Morphine Sulfate 4 mg Q2HPRN PRN IV 01/15/24 12:15 01/18/24 17:45 4 MG Pramipexole Dihydrochloride 0.5 mg HS PO 01/17/24 22:00 01/18/24 21:29 0.5 MG Acetylcysteine 200 mg Q8HR NEB 01/18/24 14:00 01/18/24 18:15 200 MG Pantoprazole Sodium 40 mg DAILY@0600 PO 01/19/24 06:00 Examination Alert HEENT: Normocephalic, atraumatic, moist mucous membranes, trach tube on place, successful decannulation Respiratory/pulmonary: Bilateral lung sounds grossly clear, Cardiovascular: Regular heart sounds S1 and S2 with no associated murmurs. Abdomen: Abdomen nondistended, there is mild pain to palpation to the epigastric region, no palpable masses. PEG tube on place with no signs in infection at this time. Extremities: There are no peripheral edema at this time. laboratory and microbiology Laboratory Tests 01/18/24 06:53 Test 01/18/24 06:53 Range/Units Serum Glucose 165 H 74-106 mg/dL Microbiology Date/Time Source Procedure Growth Status 12/21/23 09:42 Trachea Gram Stain - Final Complete 12/21/23 09:42 Respiratory Culture - Final Yeast, not [place] albicans Complete 12/14/23 19:42 Voided Urine Urine Culture - Final Complete 12/09/23 09:28 Blood Blood Culture - Final NO GROWTH AFTER 5 DAYS OF INCUBATION. 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 #Hypertensive heart disease on acute on chronic diastolic heart failure -Continue losartan 50mg QD -Continue metoprolol 25mg PO BID Respiratory #S/P tracheostomy (12/13/23) Pt was decannulated successfully Continue puree diet Patient has g tube PT is reinforced #Acute hypoxic respiratory failure likely in the setting of aspiration pneumonia No antibiotics according to ID Swallow evaluation 01/06/2024: patient is tolerate puree and nectar Infectious disease #Sepsis likely due to aspiration pneumonia and UTI resolved -Completed antibiotic treatment #Acute cholecystitis ruled out Patient is poor candidate for elective procedures, no need of emergency procedures at the time HIDA scan no cholecystitis Endocrinology Type 2 diabetes mellitus, DKA : uncontrolled -Continue mild sliding scale insulin -Continue Lantus 15 units q.a.m. Hypothyroidism -Continue levothyroxine 112mcgQAM Hyponatremia NS 3% now 134 Gastroenterology #s/p g tube #Acute cholecystitis ruled out describe above #Hepatic steatosis #Dilated CBD #Acute transaminitis trending down Hematology Superficial thrombophlebitis of right cephalic and basilic veins -no need for anticoagulation NO SONOGRAPHIC EVIDENCE FOR DEEP VENOUS THROMBOSIS IN THE LEFT UPPER EXTREMITY VEINS. Nephrology YULIANA likely due to VMN resolving -Monitor kidney function Nutrition Continue puree diet Continue physical therapy to twice a day DC planning critical care time including trach removal was 38 mins Goals of care discussed with the patient for 25 min Plan discussed with Dr. Razo Plan discussed with: Other (rn) My Orders My Orders Orders - MAKENNA MARTINEZ RESIDENT Procedure Category Date Status Time * Learning Specialist CONS 01/18/24 Transmitted Consult Acetylcysteine PHA 01/18/24 In Process Inhalation 20% 14:00 Pt Request For Service PT 01/18/24 Logged 16:29 Dietary Evaluation Review Comments: 1) If GI is accessible consider Glucerna 1.2 @ 55 ml/hr goal rate as tolerated 2) If pt remains NPO >7 days consider TPN to meet at least 75% of estimated needs 3) Advance pt diet when medically feasible to a CCHO 45g/Cardiac diet modified per PROCESS CONTROL SPECIALIST recommendations 4) Continue current plan of care Expected Outcomes/Goals: 1) Pt to receive nutrition support within 7 days of NPO status 2) Pt diet to advance 3) F/U in 2-3 days Date of Service: Jan 18, 2024 Billing Provider: FREEDOM RAZO MD Common Visit Codes: [id number] CARE 30-74 MIN MAKENNA MARTINEZ RESIDENT Jan 18, 2024 22:16 FREEDOM RAZO MD Jan 19, 2024 12:36
[2024-01-19] VITALS (16 sets, daily range): BP systolic 110–158; BP diastolic 46–68; PULSE 60–91; RESP 18–20; TEMP 97.7–98.6; O2SAT 96–100
--- NOTE | 2024-01-19 00:07 | DVHPN2 ---
Progress Note - Dictate Date Seen: Jan 18, 2024 Has the PT tested + for MRSA If YES, has PT been informed?: No Medical Necessity Reason Pt with a Central, PICC or Fol: Yes The following are medically ne: PICC Line, Carr Catheter Reason for carr catheter: Strict I&O Subjective Mr. Sanderson is a 68 years old female with a history of hypertension, diabetes, hypothyroidism, COPD, obesity, diabetic polyneuropathy, arthritis, liver cirrhosis, she was transferred back from the [facility] on 12/08/2023 after ERCP. I have seen examined the patient, I have talked to her nurse, easton, she was doing fine, she is awake, oriented x3, LLU Neurosurgery consultation: The lesions likely represents infarct, recommend Re attempting MRI spectrography for further evaluation Neuro consultation: Lumbar puncture was not recommended concerning possibility of herniation EEG, 11/28/2023: No seizure/nonconvulsive status epileptics (I did not see report) TTE, 11/29/23: EF: 70-75% (I did not see report) MRI brain (no report): signal abnormality in bilateral cerebellum and right occipital lobe, punctate foci in right parietal lobe and central semiovale- unable to differentiate subacute ischemia 2/2 MR effects versus infection versus metastasis. Recommend contrast enhanced MRI MRI, 12/05/23: No evidence of demyelinating disease (I did not see report) MRI orbital, face, neck ww 12/05/2023, comparison: MR brain 11/28/2023: No evidence of mucormycosis infection. Multiple irregularly enhancing cerebellar and right occipital lesions were better evaluated on recent brain MRI MRI C-spine, 12/05/2023: No evidence of demyelinating disease in the cervical spine. Moderate degenerative changes. Grade 1 anterolisthesis of C7 on T1 MRI lumbar spine wwo, 12/05/2023: No evidence of demyelinating disease in the lumbar spine. Degenerative changes and grade 1 anterolisthesis of L4 and L5. Mild central spinal stenosis at L4-5. [id number] multilevel bilateral foraminal stenosis as described above MRI spectroscopy 12/05/2023: Cerebellar lesion showing moderately elevated Cho, reduced ZINA, large lipid peaks, and additional tics suspicious for amino acids and alanine. The alanine and amino acids are suspicious for an infectious process Treatment according to discharge note: ASA 81mg Qd, Lipitor 20 mg daily Urinalysis, 12/08/2023: WBC: 93, urine leukocyte esterase: 3+ ABG, 12/09/2023: Metabolic acidosis WBC/HB/PLT/MCV, 12/09/2023: 8.5/7.4/350/92.4 PT/INR/PTT, 12/08/2023: 11.4/1.08 Na, 12/08/2023: 147, 12/09/2023: 146, 12/19/2019 4:148 HCO3, 12/08/2023: 23, 12/10/2023: 22, 11/2123: 19, 12/13/23: 18, 12/16/2023: 15, 12/19/2023: 17 CPK, 12/18/2023: 54 TBI/AST/ALT/AP, 12/09/2023: 0.2/40/21/278 TG/HDL/LDL/HDL, 11/2023: 136/96/38/32 Vitamin B12, 11/2023: 2537 TSH, 11/2023: 17.87 YOLANDA, 12/10/2023: In the study done today no evidence of vegetation or masses were discernible. There is mild mitral valve regurgitation with mild anterior leaflet prolapse. No significant intracardiac lesion was discernible Echocardiogram, 11/18/2023: Normal left ventricular size and dimension. Normal left ventricular systolic function estimated ejection fraction 55%. There is a grade 1 diastolic dysfunction. Normal right ventricular size and dimension. Normal right ventricular systolic function. Mildly increased right ventricular systolic pressure 34 mm of mercury. Normal biatrial size and dimension. Normal aortic valve structure and function. Normal mitral valve structure and function. Normal tricuspid valve structure and function. The pulmonary valve is grossly normal. No pericardial effusion. Carotid Doppler, 11/21/2023: 1. No evidence of hemodynamically significant stenosis within the left carotid arterial system. 2. Antegrade flow within the left vertebral artery. 3. Cannot assess the right carotid arterial system due to central line artifact and overlying bandage. Extremity venous study, 12/09/2023: Thrombus in the LEFT cephalic and brachial vein. Thrombus in the RIGHT cephalic and basilic vein.If clinical concern/symptoms persist or worsen, short-interval follow-up study is suggested. Chest x-ray, 12/08/2023: 1. Endotracheal and gastric tubes in place as described. Satisfactory position. 2. Removal of right PICC and right IJ central venous catheter since prior. 3. Mild cardiomegaly and pulmonary vascular congestion. 4. Small opacity in the lateral right lung base which could reflect atelectasis or pneumonia MRI head, 11/21/2023: Signal abnormality in the bilateral cerebellum and right occipital lobe, as well as punctate foci in the right parietal lobe and centrum semiovale. Findings could represent regions of subacute ischemia due to embolic infarcts; however, underlying metastases or infection are not excluded. Recommend contrast-enhanced MRI vital signs Vital Sign Date Time Temp Pulse Resp B/P (MAP) Pulse Ox O2 Delivery O2 Flow Rate FiO2 01/18/24 21:28 85 115/44 01/18/24 20:14 Room Air* 0 21 01/18/24 18:25 18 99 01/18/24 17:21 97.9 97.9 Total Intake and Output 01/18/24 01/18/24 01/19/24 15:00 23:00 07:00 Output Total 550 ml Balance -550 ml medications Current Medications Medications Dose Ordered Sig/Leslie Route Start Time Stop Time Status Last Admin Dose Admin Insulin Glargine 15 units DAILY@1000 SC 12/24/23 13:30 01/18/24 11:15 15 UNITS Gabapentin 100 mg BID PEG 12/26/23 22:00 01/18/24 21:28 100 MG Losartan Potassium 100 mg DAILY PEG 12/28/23 10:00 01/18/24 11:32 100 MG Metoprolol Tartrate 37.5 mg BID PEG 01/02/24 14:15 01/18/24 21:28 37.5 MG Lorazepam 0.5 mg Q4H PRN IV 01/08/24 15:00 01/16/24 22:45 0.5 MG Albuterol 2.5 mg Q8HR NEB 01/08/24 22:00 01/18/24 18:15 2.5 MG Ipratropium [place] 0.5 mg Q8HR NEB 01/08/24 22:00 01/18/24 18:15 0.5 MG Loperamide HCl 2 mg PRN PRN GT 01/08/24 17:15 Melatonin 5 mg HS PO 01/09/24 22:00 01/18/24 21:29 5 MG Levothyroxine Sodium 112 mcg QAM@0600 PO 01/09/24 06:00 01/18/24 06:21 112 MCG Hydralazine HCl 10 mg Q6HP PRN IV 01/13/24 02:30 01/13/24 02:42 10 MG Acetaminophen 325 mg Q6HP PRN PO 01/14/24 15:45 01/16/24 01:34 325 MG Diagnostic Test (Pha) 1 strip ACHS 01/15/24 11:30 01/18/24 21:23 1 STRIP Insulin Human Regular ACHS SC 01/15/24 11:30 01/18/24 21:26 3 UNITS Dextrose 50 ml UD PRN IV 01/15/24 10:45 Morphine Sulfate 4 mg Q2HPRN PRN IV 01/15/24 12:15 01/18/24 17:45 4 MG Pramipexole Dihydrochloride 0.5 mg HS PO 01/17/24 22:00 01/18/24 21:29 0.5 MG Acetylcysteine 200 mg Q8HR NEB 01/18/24 14:00 01/18/24 18:15 200 MG Pantoprazole Sodium 40 mg DAILY@0600 PO 01/19/24 06:00 objective The patient is well-nourished and well-developed with no distress. Status post tracheostomy and feeding tube insertion MENTAL STATUS: Subjective CRANIAL NERVES: Pupils are equal round and reactive to light briskly, normal external eye movement, normal sensation and motor examination in the lateral trigeminal nerve distribution, no facial weakness. SENSATION: Okay to pinprick and light touch MOTOR: Normal tone in the upper and lower extremity. Normal muscle bulk. No fasciculations. Muscle Bear: 4/5. REFLEXES: Deep tendon reflexes are symmetrical. Bilateral upgoing toes CEREBELLAR/COORDINATION: No ataxia GAIT/STATION: deferred. laboratory and microbiology Laboratory Tests 01/18/24 06:53 Test 01/18/24 06:53 Range/Units Serum Glucose 165 H 74-106 mg/dL Problem List Abnormal MRI brain scan, likely the patient has multiple stroke Coma Metabolic encephalopathy Hypoxic encephalopathy Multiple strokes Ketoacidosis Bilateral upper extremity deep venous thrombosis Status post tracheostomy Status post PEG tube/past swallow evaluation Gallstone per ultrasound (01/08/24) Restless leg syndrome Assessment/Plan Monitoring Supportive treatment Telemetry Iron profile Ferritin Pramipexole 0.125 mg four tablets daily in the evening Pureed diet Up to chair Physical therapy General surgery on case Cardiology on case Infectious disease on case More recommendation per clinical course This medical document was created using an electronic medical record system with [employer] dictation system. Although this document has been carefully reviewed, there may still be some phonetic and typographical errors. These areas are purely typographical due to imperfections of the software programs, and do not reflect any compromise in the patient's medical care. Prognosis poor Dietary Evaluation Review Comments: 1) If GI is accessible consider Glucerna 1.2 @ 55 ml/hr goal rate as tolerated 2) If pt remains NPO >7 days consider TPN to meet at least 75% of estimated needs 3) Advance pt diet when medically feasible to a CCHO 45g/Cardiac diet modified per REAL ESTATE ASSISTANT recommendations 4) Continue current plan of care Expected Outcomes/Goals: 1) Pt to receive nutrition support within 7 days of NPO status 2) Pt diet to advance 3) F/U in 2-3 days Plan discussed with: Other DREW FAGAN MD Jan 19, 2024 00:07
--- NOTE | 2024-01-19 05:01 | DVH ---
CHEST RADIOGRAPH Indication:decanulation Technique: Single frontal view of the chest was obtained COMPARISON: XY CHEST XRAY 1 VIEW on DOS: 01/13/24, XY CHEST XRAY 1 VIEW on DOS: 12/28/23, XY CHEST XRA Y 1 VIEW on DOS: 12/27/23 FINDINGS: Lines and Tubes: Interval removal of tracheostomy. Lungs: Mild congestion Pleura: No effusion. No pneumothorax. Cardiomediastinal contours: Cardiomegaly Bones: Unremarkable IMPRESSION: Interval removal of tracheostomy.
[2024-01-19] MEDS: PANTOPRAZOLE 40 MG TAB PO SCH (05:43)
[2024-01-19 07:15] LABS: Basophils # (auto) 0 10 ^3/uL (0-0.2); Basophils % (auto) 0.3 % (0.0-2.0); Eosinophils # (auto) 0.5 10 ^3/uL (0-0.8); Eosinophils % (auto) 9.6 % (0.0-7.0); Hematocrit 30.5 % (36.0-46.0); Hemoglobin 9.1 g/dL (12.2-16.2); Lymphocytes # (auto) 2.3 10 ^3/uL (0.4-5.4); Lymphocytes % (auto) 45.3 % (10.0-50.0); Mean Corpuscular Hemoglobin 26.6 pg (28.0-32.0); Mean Corpuscular Hgb Conc. 29.8 g/dL (32.0-36.0); Mean Corpuscular Volume 89.3 fL (80.0-100.0); Monocytes # (auto) 0.2 10 ^3/uL (0-1.3); Monocytes % (auto) 4.8 % (0.0-12.0); Nucleated Red Blood Cells % 0.1 %; Platelet Count (auto) 425 10^3/uL (140-450); Red Blood Cells 3.42 10^6/uL (4.0-5.20); Red Cell Distribution Width 16.9 % (11.8-14.3); White Blood Cell 5.1 10^3/uL (4.4-10.8)
[2024-01-19 07:20] LABS: Alanine Aminotransferase 25 U/L (7-40); Albumin 3.6 g/dL (3.2-4.8); Alkaline Phosphatase 332 U/L (46-116); Anion Gap 3 (5-15); Aspartate Aminotransferase 18 U/L (13-40); BUN/Creatinine Ratio 11.3 (10.0-20.0); Blood Urea Nitrogen 9 mg/dL (9-23); Calcium 10.1 mg/dL (8.7-10.4); Carbon Dioxide 25 mmol/L (20-31); Chloride 101 mmol/L (98-107); Glucose 225 mg/dL (74-106); Potassium 4.5 mmol/L (3.5-5.1); Sodium 129 mmol/L (136-145)
[2024-01-19 07:21] LABS: Bilirubin, Total 0.2 mg/dL (0.2-1.0); Total Protein 6.4 g/dL (5.7-8.2)
[2024-01-19] MEDS: SODIUM CHL 3% 500 ML IV ONE (08:45)
[2024-01-19] MEDS: LOSARTAN POTASSIUM 25 MG TAB PO SCH (11:22)
[2024-01-19] MEDS: GABAPENTIN 100 MG CAP PO SCH (11:23)
[2024-01-19] MEDS: METOPROLOL TARTRATE 25 MG TAB PO SCH (11:24)
--- NOTE | 2024-01-19 15:26 | DVHPNRES ---
Progress Note Date Seen: Jan 19, 2024 Resident Creating Document: MAKENNA MARTINEZ RESIDENT Has the PT tested + for MRSA If YES, has PT been informed?: No Medical Necessity Reason Pt with a Central, PICC or Fol: Yes The following are medically ne: PICC Line, Carr Catheter Reason for carr catheter: Strict I&O Subjective Review of Systems A 68 y old female with PMHx of HTN, DM type 2, hypothyroidism, COPD, obesity, liver cirrhosis Home meds: atorvastatin, vit D, glipizide, inuslin aspart and glargine, levothyroxine, lisinoprl, pramipezole, pregabalin She came initially at [facility] on 11/16/2023 for AMS and DKA in this facility she was intubated and transfer to [facility]. Here, a CT scan of the abdomen showed CBD dilation and was sent to [facility] 11/26/2023 for ERCP, which didn't show any obstruction, Also a brain MRI was done showing mulitple old infracts. Patient was again transferred to [facility] 11/28/2023 extubated and On 12/03/2023 patient required reintubation, on 12/12/23: gastrostomy was done and 12/13/23 tracheostomy was done. Cultures: 12/08/23: sputum negative 12/08/23: urine negative 12/09/23: blood culture negative 5 days 12/14/23: urine negative 12/21/23: respiratory culture normal jordan Images: 01/08/24: abdomen US Cholelithiasis with thickened gallbladder wall and pericholecystic fluid. The common bile duct is also dilated. Although the ultrasound Mclain's sign is negative ultrasound findings suggest acute cholecystitis. 16.87 cm liver with findings suggesting steatosis. 12/10/23: Abdomen/ pelvis CT scan No acute findings in the abdomen or pelvis. Multifocal airspace disease. 11/21/23: MRI brain Signal abnormality in the bilateral cerebellum and right occipital lobe, as well as punctate foci in the right parietal lobe and centrum semiovale. Findings could represent regions of subacute ischemia due to embolic infarcts; however, underlying metastases or infection are not excluded 11/21/23: MRCP Distended gallbladder with mild pericholecystic edema and gallbladder wall thickening. No definite gallbladder stones or sludge are present. There is diffuse dilation of the extrahepatic common bile duct measuring up to 1.1 cm. There is no definite appreciable obstructing stone or mass. Small ampullary lesion or stone is not completely excluded. ERCP could be obtained to further evaluate if clinically indicated. 01/18/2024 HIDA scan negative for cholecystitis Patient is alert and oriented in person, place and time. Speaking sentences, answering all type of questions and working with physical therapy twice a day. Patient passes swallow evaluation 01/06/2024 and is currently tolerating pureed diet. Patient tolerated decannulation, GI on board for peg tube removal Objective vital signs Vital Sign Date Time Temp Pulse Resp B/P (MAP) Pulse Ox O2 Delivery O2 Flow Rate FiO2 01/19/24 15:00 70 20 100 01/19/24 14:46 Room Air* 0 21 01/19/24 13:00 97.7 129/64 (85) 97.7 Total Intake and Output 01/18/24 01/18/24 01/19/24 15:00 23:00 07:00 Intake Total 720 ml Output Total 550 ml 700 ml Balance -550 ml 20 ml medications Current Medications Medications Dose Ordered Sig/Leslie Route Start Time Stop Time Status Last Admin Dose Admin Insulin Glargine 15 units DAILY@1000 SC 12/24/23 13:30 01/19/24 09:02 15 UNITS Lorazepam 0.5 mg Q4H PRN IV 01/08/24 15:00 01/19/24 11:21 0.5 MG Albuterol 2.5 mg Q8HR NEB 01/08/24 22:00 01/19/24 14:45 2.5 MG Ipratropium [place] 0.5 mg Q8HR NEB 01/08/24 22:00 01/19/24 14:45 0.5 MG Loperamide HCl 2 mg PRN PRN GT 01/08/24 17:15 Melatonin 5 mg HS PO 01/09/24 22:00 01/18/24 21:29 5 MG Levothyroxine Sodium 112 mcg QAM@0600 PO 01/09/24 06:00 01/19/24 05:43 112 MCG Hydralazine HCl 10 mg Q6HP PRN IV 01/13/24 02:30 01/13/24 02:42 10 MG Acetaminophen 325 mg Q6HP PRN PO 01/14/24 15:45 01/16/24 01:34 325 MG Diagnostic Test (Pha) 1 strip ACHS 01/15/24 11:30 01/19/24 11:30 1 STRIP Insulin Human Regular ACHS SC 01/15/24 11:30 01/19/24 12:25 6 UNITS Dextrose 50 ml UD PRN IV 01/15/24 10:45 Morphine Sulfate 4 mg Q2HPRN PRN IV 01/15/24 12:15 01/19/24 08:45 4 MG Pramipexole Dihydrochloride 0.5 mg HS PO 01/17/24 22:00 01/18/24 21:29 0.5 MG Acetylcysteine 200 mg Q8HR NEB 01/18/24 14:00 01/19/24 14:45 200 MG Pantoprazole Sodium 40 mg DAILY@0600 PO 01/19/24 06:00 01/19/24 05:43 40 MG Gabapentin 100 mg BID PO 01/19/24 10:00 01/19/24 11:23 100 MG Losartan Potassium 100 mg DAILY PO 01/19/24 10:00 01/19/24 11:22 100 MG Metoprolol Tartrate 37.5 mg BID PO 01/19/24 10:00 01/19/24 11:24 37.5 MG Examination Alert HEENT: Normocephalic, atraumatic, moist mucous membranes, trach tube on place, successful decannulation Respiratory/pulmonary: Bilateral lung sounds grossly clear, Cardiovascular: Regular heart sounds S1 and S2 with no associated murmurs. Abdomen: Abdomen nondistended, there is mild pain to palpation to the epigastric region, no palpable masses. PEG tube on place with no signs in infection at this time. Extremities: There are no peripheral edema at this time. laboratory and microbiology Laboratory Tests 01/19/24 06:22 Test 01/19/24 06:22 Range/Units Serum Glucose 225 H 74-106 mg/dL Microbiology Date/Time Source Procedure Growth Status 12/21/23 09:42 Trachea Gram Stain - Final Complete 12/21/23 09:42 Respiratory Culture - Final Yeast, not Sapphire albicans Complete 12/14/23 19:42 Voided Urine Urine Culture - Final Complete 12/09/23 09:28 Blood Blood Culture - Final NO GROWTH AFTER 5 DAYS OF INCUBATION. 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 #Hypertensive heart disease on acute on chronic diastolic heart failure -Continue losartan 50mg QD -Continue metoprolol 25mg PO BID Respiratory #S/P tracheostomy (12/13/23) Pt was decannulated successfully Continue puree diet PT is reinforced #Acute hypoxic respiratory failure likely in the setting of aspiration pneumonia No antibiotics according to ID Swallow evaluation 01/06/2024: patient is tolerate puree and nectar Infectious disease #Sepsis likely due to aspiration pneumonia and UTI resolved -Completed antibiotic treatment #Acute cholecystitis ruled out Patient is poor candidate for elective procedures, no need of emergency procedures at the time HIDA scan no cholecystitis Endocrinology Type 2 diabetes mellitus, DKA : uncontrolled -Continue mild sliding scale insulin -Continue Lantus 15 units q.a.m. Hypothyroidism -Continue levothyroxine 112mcgQAM Hyponatremia NS 3% now 134 Gastroenterology #s/p g tube GI on board for PEG tube removal #Acute cholecystitis ruled out describe above #Hepatic steatosis #Dilated CBD #Acute transaminitis trending down Hematology Superficial thrombophlebitis of right cephalic and basilic veins -no need for anticoagulation NO SONOGRAPHIC EVIDENCE FOR DEEP VENOUS THROMBOSIS IN THE LEFT UPPER EXTREMITY VEINS. Nephrology YULIANA likely due to VMN resolving -Monitor kidney function Nutrition Continue puree diet Continue physical therapy to twice a day DC planning Goals of care discussed with the patient for 25 min Plan discussed with Dr. Razo Plan discussed with: Patient, Other (rn) My Orders My Orders Orders - MAKENNA MARTINEZ RESIDENT Procedure Category Date Status Time Pt Request For Service PT 01/18/24 Logged 16:29 Chest Xray 1 View XY 01/19/24 Resulted 04:00 Sodium Chl 3% PHA 01/19/24 In Process 08:45 Dietary Evaluation Review Comments: 1) If GI is accessible consider Glucerna 1.2 @ 55 ml/hr goal rate as tolerated 2) If pt remains NPO >7 days consider TPN to meet at least 75% of estimated needs 3) Advance pt diet when medically feasible to a CCHO 45g/Cardiac diet modified per SUPERVISOR AIRPLANE FLIGHT ATTENDANT recommendations 4) Continue current plan of care Expected Outcomes/Goals: 1) Pt to receive nutrition support within 7 days of NPO status 2) Pt diet to advance 3) F/U in 2-3 days Date of Service: Jan 19, 2024 Billing Provider: FREEDOM RAZO MD Common Visit Codes: [id number] INP/OBS CARE(HIGH) MAKENNA MARTINEZ RESIDENT Jan 19, 2024 15:26 FREEDOM RAZO MD Jan 20, 2024 12:26
--- NOTE | 2024-01-19 21:18 | DVHPN2 ---
Consult Progress Note Date Seen: Jan 19, 2024 Subjective Patient reports: Other (working aggesively with physical therapy to regain strenght , all meds switched to oral and is tolerating ) Objective vital signs Vital Sign Date Time Temp Pulse Resp B/P (MAP) Pulse Ox O2 Delivery O2 Flow Rate FiO2 01/19/24 19:25 68 18 148/68 99 01/19/24 18:45 Room Air* 0 21 01/19/24 13:00 97.7 97.7 Total Intake and Output 01/18/24 01/18/24 01/19/24 15:00 23:00 07:00 Intake Total 720 ml Output Total 550 ml 700 ml Balance -550 ml 20 ml medications Current Medications Medications Dose Ordered Sig/Leslie Route Start Time Stop Time Status Last Admin Dose Admin Insulin Glargine 15 units DAILY@1000 SC 12/24/23 13:30 01/19/24 09:02 15 UNITS Lorazepam 0.5 mg Q4H PRN IV 01/08/24 15:00 01/19/24 11:21 0.5 MG Albuterol 2.5 mg Q8HR NEB 01/08/24 22:00 01/19/24 14:45 2.5 MG Ipratropium [place] 0.5 mg Q8HR NEB 01/08/24 22:00 01/19/24 14:45 0.5 MG Loperamide HCl 2 mg PRN PRN GT 01/08/24 17:15 Melatonin 5 mg HS PO 01/09/24 22:00 01/18/24 21:29 5 MG Levothyroxine Sodium 112 mcg QAM@0600 PO 01/09/24 06:00 01/19/24 05:43 112 MCG Hydralazine HCl 10 mg Q6HP PRN IV 01/13/24 02:30 01/13/24 02:42 10 MG Acetaminophen 325 mg Q6HP PRN PO 01/14/24 15:45 01/16/24 01:34 325 MG Diagnostic Test (Pha) 1 strip ACHS 01/15/24 11:30 01/19/24 11:30 1 STRIP Insulin Human Regular ACHS SC 01/15/24 11:30 01/19/24 12:25 6 UNITS Dextrose 50 ml UD PRN IV 01/15/24 10:45 Morphine Sulfate 4 mg Q2HPRN PRN IV 01/15/24 12:15 01/19/24 16:48 4 MG Pramipexole Dihydrochloride 0.5 mg HS PO 01/17/24 22:00 01/18/24 21:29 0.5 MG Acetylcysteine 200 mg Q8HR NEB 01/18/24 14:00 01/19/24 14:45 200 MG Pantoprazole Sodium 40 mg DAILY@0600 PO 01/19/24 06:00 01/19/24 05:43 40 MG Gabapentin 100 mg BID PO 01/19/24 10:00 01/19/24 11:23 100 MG Losartan Potassium 100 mg DAILY PO 01/19/24 10:00 01/19/24 11:22 100 MG Metoprolol Tartrate 37.5 mg BID PO 01/19/24 10:00 01/19/24 11:24 37.5 MG Acetaminophen/ Hydrocodone Bitart 1 tab Q8HPRN PRN PO 01/19/24 16:45 PHYSICAL EXAM - GENERAL: Alert and oriented x 3. No acute distress. Well-nourished. - EYES: EOMI. Anicteric. - HENT: Moist mucous membranes. No scleral icterus. No cervical lymphadenopathy. - LUNGS: Clear to auscultation bilaterally. No accessory muscle use. - CARDIOVASCULAR: Regular rate and rhythm. No murmur. No JVD. - ABDOMEN: Soft, non-tender and non-distended. No palpable masses. - EXTREMITIES: No edema. Non-tender.SKIN: No rashes or lesions. Warm. - NEUROLOGIC: No focal neurological deficits. CN II-XII grossly intact, but not individually tested. - PSYCHIATRIC: Cooperative. Appropriate mood and affect. laboratory and microbiology Laboratory Tests 01/19/24 06:22 Test 01/19/24 06:22 Range/Units Serum Glucose 225 H 74-106 mg/dL Problem List/Assessment/Plan Problems(with codes): (1) COPD (chronic obstructive pulmonary disease) (2) HTN (hypertension) (3) DKA (diabetic ketoacidosis) (4) Hospital-acquired pneumonia (5) Closed right hip fracture (6) Cholelithiasis and acute cholecystitis without obstruction (7) Elevated liver enzymes Problem List/Assessment/Plan Assessment/Plan Problems(with codes): (1) Hospital-acquired pneumonia (2) COPD (chronic obstructive pulmonary disease) (3) DKA (diabetic ketoacidosis) (4) HTN (hypertension) (5) Closed right hip fracture Plan/Recommendation ASSESSMENT AND PLAN: ID Problem List: - Aspiration pneumonia - Acute respiratory failure - Diabetic Ketoacidosis (DKA) - Sepsis due to UTI vs pneumonia - Acute Kidney Injury (YULIANA) - Hypernatremia - Transaminitis - Fatty liver - Uncontrolled diabetes (A1C of 11.7) - Hypothyroidism - Hypertension - COPD without exacerbation - Chronic kidney disease (CKD) Assessment: This is a 68-year-old female with a past medical history of diabetes, hypertension, recurrent DKA, hypothyroidism, obesity, COPD, neuropathies, mechanical falls, liver cirrhosis, and multiple joint replacements. The patient presented to the ED with acute loss of consciousness on 11/15/2023, subsequently diagnosed with DKA and an upper GI bleed. While at [facility], a CT and MRI of the head showed concerning lesions for metastasis vs. infectious process and gallbladder issues. Due to renal failure, these images were performed without contrast. An ERCP at [facility] showed no gallstones or common bile duct obstruction. Currently, the patient is reintubated on minimal sedation and receiving broad-spectrum antibiotics for presumed meningitis and other infections. 12/09: Patient has had a repeat abdomen, pelvis, chest Ct with contrast which shows no acute findings in the abdomen and pelvis. multifocal airspace in the lungs was shown. 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 12/12: sp trach 12/13: off sedation 12/19: trach 7l,elevated temps 12/23: Sputal culture is showing normal oral pharyngeal jordan, chest X-ray shows clear lungs, yesterdays X-rays show interstitial edema otherwise clear lungs. Recomend patient continue off antibiotics and just do aspiriations. If fever starts , cosider antibiotics for aspiration pnumonia , suspect Pneumonitis 12/26: Peg tube feeding were stopped , soft abdomen and having bowel movements. Chest X-ray shows mild pulmonary congestion. Otherwise patient is stable with no fevers 12/27: Peg tube is dry and intact. Restarted on [place]. Continues to work on physical therapy 12/29: now on 6 liters of drip , improving , recommend incentive spirometry, continue working with physical therapists and encouraged out of bed 01/02: Chest X-ray shows no significant changes, white count dropped to 1.8 and hemoglobin is 9.7 01/06: white count is up to 12.7 , potentially related to new diet 01/07: leukocytosis resolved 01/09: Lesli Medeiros has determined that patient is not surgical 01/11: feeding tube placed yesterday 01/12: Chest x-ray is clear , patient on room air, suspect leukocytosis was related to aspiration pneumonitis as opposed to full on pneumonia 01/13: MRCP in the past has shown distened bladder with mild perisystic edema and gallbladder thickening , abdominal untrasound shows gallstones with thicken gallbladder with pericolycystic fluid . YOLANDA results show normal left ventricle, size and dimension of 55%, valves without any significance, no evidence of intracardic masses or vegitations 01/17: patients trach tube is capped Plan: - follow patient clinically off all antibiotics -follow up of Hidea scan - continue off antibiotics unless fever starts up - sp 3 week vancomycin and ceftriaxone course, will monitor patient off all antibiotics - aspiration precautions - Blood cultures monitoring. - Monitor respiratory status and adjust ventilator settings as necessary. - Monitor and manage blood glucose levels. - Supportive care as needed. Plan discussed with: Other Dietary Evaluation Review Comments: 1) If GI is accessible consider Glucerna 1.2 @ 55 ml/hr goal rate as tolerated 2) If pt remains NPO >7 days consider TPN to meet at least 75% of estimated needs 3) Advance pt diet when medically feasible to a CCHO 45g/Cardiac diet modified per SHINGLE TRIMMER recommendations 4) Continue current plan of care Expected Outcomes/Goals: 1) Pt to receive nutrition support within 7 days of NPO status 2) Pt diet to advance 3) F/U in 2-3 days NITHIN ANAYA MD Jan 19, 2024 21:18
--- NOTE | 2024-01-19 21:52 | DVHPN2 ---
Progress Note Date Seen: Jan 19, 2024 Resident Creating Document: MEGAN WAY RESIDENT Has the PT tested + for MRSA If YES, has PT been informed?: No Medical Necessity Reason Pt with a Central, PICC or Fol: Yes The following are medically ne: PICC Line, Carr Catheter Reason for carr catheter: Strict I&O Subjective Review of Systems Tracheostomy decanulated Patient had HIDA scan yesterday. Liver enzymes trending down Patient is currently on a pureed diet Objective vital signs Vital Sign Date Time Temp Pulse Resp B/P (MAP) Pulse Ox O2 Delivery O2 Flow Rate FiO2 01/19/24 19:25 68 18 148/68 99 01/19/24 18:45 Room Air* 0 21 01/19/24 13:00 97.7 97.7 Total Intake and Output 01/18/24 01/18/24 01/19/24 15:00 23:00 07:00 Intake Total 720 ml Output Total 550 ml 700 ml Balance -550 ml 20 ml medications Current Medications Medications Dose Ordered Sig/Leslie Route Start Time Stop Time Status Last Admin Dose Admin Insulin Glargine 15 units DAILY@1000 SC 12/24/23 13:30 01/19/24 09:02 15 UNITS Lorazepam 0.5 mg Q4H PRN IV 01/08/24 15:00 01/19/24 11:21 0.5 MG Albuterol 2.5 mg Q8HR NEB 01/08/24 22:00 01/19/24 14:45 2.5 MG Ipratropium [place] 0.5 mg Q8HR NEB 01/08/24 22:00 01/19/24 14:45 0.5 MG Loperamide HCl 2 mg PRN PRN GT 01/08/24 17:15 Melatonin 5 mg HS PO 01/09/24 22:00 01/18/24 21:29 5 MG Levothyroxine Sodium 112 mcg QAM@0600 PO 01/09/24 06:00 01/19/24 05:43 112 MCG Hydralazine HCl 10 mg Q6HP PRN IV 01/13/24 02:30 01/13/24 02:42 10 MG Acetaminophen 325 mg Q6HP PRN PO 01/14/24 15:45 01/16/24 01:34 325 MG Diagnostic Test (Pha) 1 strip ACHS 01/15/24 11:30 01/19/24 11:30 1 STRIP Insulin Human Regular ACHS SC 01/15/24 11:30 01/19/24 12:25 6 UNITS Dextrose 50 ml UD PRN IV 01/15/24 10:45 Morphine Sulfate 4 mg Q2HPRN PRN IV 01/15/24 12:15 01/19/24 16:48 4 MG Pramipexole Dihydrochloride 0.5 mg HS PO 01/17/24 22:00 01/18/24 21:29 0.5 MG Acetylcysteine 200 mg Q8HR NEB 01/18/24 14:00 01/19/24 14:45 200 MG Pantoprazole Sodium 40 mg DAILY@0600 PO 01/19/24 06:00 01/19/24 05:43 40 MG Gabapentin 100 mg BID PO 01/19/24 10:00 01/19/24 11:23 100 MG Losartan Potassium 100 mg DAILY PO 01/19/24 10:00 01/19/24 11:22 100 MG Metoprolol Tartrate 37.5 mg BID PO 01/19/24 10:00 01/19/24 11:24 37.5 MG Acetaminophen/ Hydrocodone Bitart 1 tab Q8HPRN PRN PO 01/19/24 16:45 Examination General Appearance: Seen and examined. Alert and awake no distress and eating Lungs: Clear to auscultation, tracheostomy collar Cardiovascular: Regular rate, Normal S1, Normal S2 Abdomen: Normal bowel sounds, Soft, NT obese , PEG tube noted in the abdomen Extremities: No edema laboratory and microbiology Laboratory Tests 01/19/24 06:22 Test 01/19/24 06:22 Range/Units Serum Glucose 225 H 74-106 mg/dL Microbiology Date/Time Source Procedure Growth Status 12/21/23 09:42 Trachea Gram Stain - Final Complete 12/21/23 09:42 Respiratory Culture - Final Yeast, not [place]app[place] albicans Complete 12/14/23 19:42 Voided Urine Urine Culture - Final Complete 12/09/23 09:28 Blood Blood Culture - Final NO GROWTH AFTER 5 DAYS OF INCUBATION. Complete 12/08/23 19:00 Sputum Gram Stain - Final Complete 12/08/23 19:00 Sputum Respiratory Culture - Final Complete Problem List/Assessment/Plan Problem List/Assessment/Plan (1) Elevated liver enzymes -->back to normal values (2) Cholelithiasis and acute cholecystitis without obstruction --> HIDA: Negative hepatobiliary study for cholecystitis. (3) Hospital-acquired pneumonia (4) DKA (diabetic ketoacidosis) (5) COPD (chronic obstructive pulmonary disease) Prognosis Plan Acute cholecystitis appears to be improving Monitor calcium levels Continue IV antibiotics planing for peg tube removal Discharge planning as per hospitalist Goal of care discussed for more than 18 minutes: full code Case and plan discussed with Dr. Brody Plan discussed with: Patient Dietary Evaluation Review Comments: 1) If GI is accessible consider Glucerna 1.2 @ 55 ml/hr goal rate as tolerated 2) If pt remains NPO >7 days consider TPN to meet at least 75% of estimated needs 3) Advance pt diet when medically feasible to a CCHO 45g/Cardiac diet modified per ACCOUNTING ASSOCIATE recommendations 4) Continue current plan of care Expected Outcomes/Goals: 1) Pt to receive nutrition support within 7 days of NPO status 2) Pt diet to advance 3) F/U in 2-[address] RESIDENT Jan 19, 2024 21:52
[2024-01-20] VITALS (14 sets, daily range): BP systolic 118–171; BP diastolic 51–75; PULSE 6–72; RESP 16–21; TEMP 97.9–98.4; O2SAT 92–100
[2024-01-20] MEDS: HYDROcodone-ACET 5/325MG TAB PO PRN (06:08)
[2024-01-20 06:38] LABS: Chloride 103 mmol/L (98-107); Potassium 4.4 mmol/L (3.5-5.1)
[2024-01-20 06:39] LABS: Anion Gap 9 (5-15); Calcium 10.4 mg/dL (8.7-10.4); Carbon Dioxide 22 mmol/L (20-31)
[2024-01-20 06:44] LABS: BUN/Creatinine Ratio 8.8 (10.0-20.0); Blood Urea Nitrogen 6 mg/dL (9-23); Glucose 88 mg/dL (74-106)
[2024-01-20 06:47] LABS: Sodium 134 mmol/L (136-145)
--- NOTE | 2024-01-20 12:26 | DVHPN2 ---
Progress Note Date Seen: Jan 20, 2024 Resident Creating Document: MEGAN WAY RESIDENT Has the PT tested + for MRSA If YES, has PT been informed?: No Medical Necessity Reason Pt with a Central, PICC or Fol: Yes The following are medically ne: PICC Line, Carr Catheter Reason for carr catheter: Strict I&O Medical Necessity Reason Status post tracheal decannulation Subjective Review of Systems Constitutional: Denies fever, chills, feeling of malaise. Patient crying wanted to go home HEENT:Denies headache, ear pain, ear discharges, conjunctivitis, the triachiatic lashes, nasal discharge, throat pain Cardiovascular: Denies chest pain, palpitation, orthopnea, PND, pedal edema Respiratory: Denies cough, sputum production, shortness of breath, hemoptysis, GI: No abdominal pain, nausea, no vomiting, no diarrhea, no him hematemesis, no he hematochezia; Patient is currently on a pureed diet : No frequency, no urgency, no hematuria, Lamberto: No easy bruising, no bleeding disorders, epistaxis; Objective vital signs Vital Sign Date Time Temp Pulse Resp B/P (MAP) Pulse Ox O2 Delivery O2 Flow Rate FiO2 01/20/24 10:47 70 147/62 01/20/24 09:00 98.4 20 98 98.4 01/20/24 07:32 Room Air 0.0 01/20/24 07:32 21 Total Intake and Output 01/19/24 01/19/24 01/20/24 15:00 23:00 07:00 Intake Total 1480 ml Balance 1480 ml medications Current Medications Medications Dose Ordered Sig/Leslie Route Start Time Stop Time Status Last Admin Dose Admin Insulin Glargine 15 units DAILY@1000 SC 12/24/23 13:30 01/20/24 10:47 15 UNITS Lorazepam 0.5 mg Q4H PRN IV 01/08/24 15:00 01/20/24 10:46 0.5 MG Albuterol 2.5 mg Q8HR NEB 01/08/24 22:00 01/20/24 07:32 2.5 MG Ipratropium [place] 0.5 mg Q8HR NEB 01/08/24 22:00 01/20/24 07:32 0.5 MG Loperamide HCl 2 mg PRN PRN GT 01/08/24 17:15 Melatonin 5 mg HS PO 01/09/24 22:00 01/19/24 21:52 5 MG Levothyroxine Sodium 112 mcg QAM@0600 PO 01/09/24 06:00 01/20/24 06:08 112 MCG Hydralazine HCl 10 mg Q6HP PRN IV 01/13/24 02:30 01/13/24 02:42 10 MG Acetaminophen 325 mg Q6HP PRN PO 01/14/24 15:45 01/16/24 01:34 325 MG Diagnostic Test (Pha) 1 strip ACHS 01/15/24 11:30 01/20/24 11:47 1 STRIP Insulin Human Regular ACHS SC 01/15/24 11:30 01/20/24 12:00 10 UNITS Dextrose 50 ml UD PRN IV 01/15/24 10:45 Morphine Sulfate 4 mg Q2HPRN PRN IV 01/15/24 12:15 01/20/24 02:07 4 MG Pramipexole Dihydrochloride 0.5 mg HS PO 01/17/24 22:00 01/19/24 21:52 0.5 MG Acetylcysteine 200 mg Q8HR NEB 01/18/24 14:00 01/20/24 07:32 200 MG Pantoprazole Sodium 40 mg DAILY@0600 PO 01/19/24 06:00 01/20/24 06:08 40 MG Gabapentin 100 mg BID PO 01/19/24 10:00 01/20/24 09:41 100 MG Losartan Potassium 100 mg DAILY PO 01/19/24 10:00 01/20/24 09:42 100 MG Metoprolol Tartrate 37.5 mg BID PO 01/19/24 10:00 01/20/24 09:41 37.5 MG Acetaminophen/ Hydrocodone Bitart 1 tab Q8HPRN PRN PO 01/19/24 16:45 01/20/24 06:08 1 TAB Examination General Appearance: Seen and examined. Alert and awake no distress and eating Lungs: Clear to auscultation, tracheostomy collar Cardiovascular: Regular rate, Normal S1, Normal S2 Abdomen: Normal bowel sounds, Soft, NT obese , PEG tube noted in the abdomen, ( Dr. Brody can remove it tomorrow) Extremities: No edema laboratory and microbiology Laboratory Tests 01/20/24 05:37 01/19/24 06:22 Test 01/20/24 05:37 Range/Units Serum Glucose 88 74-106 mg/dL Microbiology Date/Time Source Procedure Growth Status 12/21/23 09:42 Trachea Gram Stain - Final Complete 12/21/23 09:42 Respiratory Culture - Final Yeast, not Sapphire albicans Complete 12/14/23 19:42 Voided Urine Urine Culture - Final Complete 12/09/23 09:28 Blood Blood Culture - Final NO GROWTH AFTER 5 DAYS OF INCUBATION. Complete 12/08/23 19:00 Sputum Gram Stain - Final Complete 12/08/23 19:00 Sputum Respiratory Culture - Final Complete Problem List/Assessment/Plan Problem List/Assessment/Plan (1) Elevated liver enzymes Now resolved (2) Cholelithiasis and acute cholecystitis without obstruction --> HIDA: Negative hepatobiliary study for cholecystitis. (3) Hospital-acquired pneumonia (4) DKA (diabetic ketoacidosis) (5) COPD (chronic obstructive pulmonary disease) Plan Monitor calcium levels Continue IV antibiotics planing for peg tube removal 01/21/2024 Discharge planning as per hospitalist Goal of care discussed for more than 18 minutes: full code Case and plan discussed with Dr. Brody Plan discussed with: Patient Dietary Evaluation Review Comments: 1) If GI is accessible consider Glucerna 1.2 @ 55 ml/hr goal rate as tolerated 2) If pt remains NPO >7 days consider TPN to meet at least 75% of estimated needs 3) Advance pt diet when medically feasible to a CCHO 45g/Cardiac diet modified per CLIENT SERVICES VICE PRESIDENT recommendations 4) Continue current plan of care Expected Outcomes/Goals: 1) Pt to receive nutrition support within 7 days of NPO status 2) Pt diet to advance 3) F/U in 2-[address] RESIDENT Jan 20, 2024 12:26
--- NOTE | 2024-01-20 18:39 | DVHPN2 ---
Consult Progress Note Date Seen: Jan 20, 2024 Subjective Patient reports: Feels better (working with physical therapy , not having abdominal pain and is tolerating oral intake ) Objective vital signs Vital Sign Date Time Temp Pulse Resp B/P (MAP) Pulse Ox O2 Delivery O2 Flow Rate FiO2 01/20/24 16:54 98.4 64 20 137/55 (82) 100 98.4 01/20/24 14:09 Room Air 0.0 01/20/24 14:09 21 Total Intake and Output 01/19/24 01/19/24 01/20/24 14:59 22:59 06:59 Intake Total 1480 ml Balance 1480 ml medications Current Medications Medications Dose Ordered Sig/Leslie Route Start Time Stop Time Status Last Admin Dose Admin Insulin Glargine 15 units DAILY@1000 SC 12/24/23 13:30 01/20/24 10:47 15 UNITS Lorazepam 0.5 mg Q4H PRN IV 01/08/24 15:00 01/20/24 18:30 0.5 MG Albuterol 2.5 mg Q8HR NEB 01/08/24 22:00 01/20/24 14:09 2.5 MG Ipratropium [place] 0.5 mg Q8HR NEB 01/08/24 22:00 01/20/24 14:09 0.5 MG Loperamide HCl 2 mg PRN PRN GT 01/08/24 17:15 Melatonin 5 mg HS PO 01/09/24 22:00 01/19/24 21:52 5 MG Levothyroxine Sodium 112 mcg QAM@0600 PO 01/09/24 06:00 01/20/24 06:08 112 MCG Hydralazine HCl 10 mg Q6HP PRN IV 01/13/24 02:30 01/13/24 02:42 10 MG Acetaminophen 325 mg Q6HP PRN PO 01/14/24 15:45 01/16/24 01:34 325 MG Diagnostic Test (Pha) 1 strip ACHS 01/15/24 11:30 01/20/24 18:02 1 STRIP Insulin Human Regular ACHS SC 01/15/24 11:30 01/20/24 12:00 10 UNITS Dextrose 50 ml UD PRN IV 01/15/24 10:45 Morphine Sulfate 4 mg Q2HPRN PRN IV 01/15/24 12:15 01/20/24 02:07 4 MG Pramipexole Dihydrochloride 0.5 mg HS PO 01/17/24 22:00 01/19/24 21:52 0.5 MG Pantoprazole Sodium 40 mg DAILY@0600 PO 01/19/24 06:00 01/20/24 06:08 40 MG Gabapentin 100 mg BID PO 01/19/24 10:00 01/20/24 09:41 100 MG Losartan Potassium 100 mg DAILY PO 01/19/24 10:00 01/20/24 09:42 100 MG Metoprolol Tartrate 37.5 mg BID PO 01/19/24 10:00 01/20/24 09:41 37.5 MG Acetaminophen/ Hydrocodone Bitart 1 tab Q8HPRN PRN PO 01/19/24 16:45 01/20/24 14:55 1 TAB PHYSICAL EXAM - GENERAL: Alert and oriented x 3. No acute distress. Well-nourished. - EYES: EOMI. Anicteric. - HENT: Moist mucous membranes. No scleral icterus. No cervical lymphadenopathy. - LUNGS: Clear to auscultation bilaterally. No accessory muscle use. - CARDIOVASCULAR: Regular rate and rhythm. No murmur. No JVD. - ABDOMEN: Soft, non-tender and non-distended. No palpable masses. - EXTREMITIES: No edema. Non-tender.SKIN: No rashes or lesions. Warm. - NEUROLOGIC: No focal neurological deficits. CN II-XII grossly intact, but not individually tested. - PSYCHIATRIC: Cooperative. Appropriate mood and affect. laboratory and microbiology Laboratory Tests 01/20/24 05:37 01/19/24 06:22 Test 01/20/24 05:37 Range/Units Serum Glucose 88 74-106 mg/dL Problem List/Assessment/Plan Problems(with codes): (1) COPD (chronic obstructive pulmonary disease) (2) HTN (hypertension) (3) DKA (diabetic ketoacidosis) (4) Hospital-acquired pneumonia (5) Closed right hip fracture (6) Cholelithiasis and acute cholecystitis without obstruction (7) Elevated liver enzymes Problem List/Assessment/Plan Assessment/Plan Problems(with codes): (1) Hospital-acquired pneumonia (2) COPD (chronic obstructive pulmonary disease) (3) DKA (diabetic ketoacidosis) (4) HTN (hypertension) (5) Closed right hip fracture Plan/Recommendation ASSESSMENT AND PLAN: ID Problem List: - Aspiration pneumonia - Acute respiratory failure - Diabetic Ketoacidosis (DKA) - Sepsis due to UTI vs pneumonia - Acute Kidney Injury (YULIANA) - Hypernatremia - Transaminitis - Fatty liver - Uncontrolled diabetes (A1C of 11.7) - Hypothyroidism - Hypertension - COPD without exacerbation - Chronic kidney disease (CKD) Assessment: This is a 68-year-old female with a past medical history of diabetes, hypertension, recurrent DKA, hypothyroidism, obesity, COPD, neuropathies, mechanical falls, liver cirrhosis, and multiple joint replacements. The patient presented to the ED with acute loss of consciousness on 11/15/2023, subsequently diagnosed with DKA and an upper GI bleed. While at [facility], a CT and MRI of the head showed concerning lesions for metastasis vs. infectious process and gallbladder issues. Due to renal failure, these images were performed without contrast. An ERCP at [facility] showed no gallstones or common bile duct obstruction. Currently, the patient is reintubated on minimal sedation and receiving broad-spectrum antibiotics for presumed meningitis and other infections. 12/09: Patient has had a repeat abdomen, pelvis, chest Ct with contrast which shows no acute findings in the abdomen and pelvis. multifocal airspace in the lungs was shown. 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 12/12: sp trach 12/13: off sedation 12/19: trach 7l,elevated temps /: Sputal culture is showing normal oral pharyngeal jordan, chest X-ray shows clear lungs, yesterdays X-rays show interstitial edema otherwise clear lungs. Recomend patient continue off antibiotics and just do aspiriations. If fever starts , cosider antibiotics for aspiration pnumonia , suspect Pneumonitis 12/26: Peg tube feeding were stopped , soft abdomen and having bowel movements. Chest X-ray shows mild pulmonary congestion. Otherwise patient is stable with no fevers 12/27: Peg tube is dry and intact. Restarted on [place]. Continues to work on physical therapy 12/29: now on 6 liters of drip , improving , recommend incentive spirometry, continue working with physical therapists and encouraged out of bed 01/02: Chest X-ray shows no significant changes, white count dropped to 1.8 and hemoglobin is 9.7 01/06: white count is up to 12.7 , potentially related to new diet 01/07: leukocytosis resolved 01/09: Lesli Medeiros has determined that patient is not surgical 01/11: feeding tube placed yesterday 01/12: Chest x-ray is clear , patient on room air, suspect leukocytosis was related to aspiration pneumonitis as opposed to full on pneumonia 01/13: MRCP in the past has shown distened bladder with mild perisystic edema and gallbladder thickening , abdominal untrasound shows gallstones with thicken gallbladder with pericolycystic fluid . YOLANDA results show normal left ventricle, size and dimension of 55%, valves without any significance, no evidence of intracardic masses or vegitations 01/17: patients trach tube is capped 01/19: scan has come back negative for acute colecystitis , GI plans to remove PEG tube tommorow Plan: - follow patient clinically off all antibiotics - continue off antibiotics unless fever starts up - sp 3 week vancomycin and ceftriaxone course, will monitor patient off all antibiotics - aspiration precautions - Blood cultures monitoring. - Monitor respiratory status and adjust ventilator settings as necessary. - Monitor and manage blood glucose levels. - Supportive care as needed. Plan discussed with: Other Dietary Evaluation Review Comments: 1) If GI is accessible consider Glucerna 1.2 @ 55 ml/hr goal rate as tolerated 2) If pt remains NPO >7 days consider TPN to meet at least 75% of estimated needs 3) Advance pt diet when medically feasible to a CCHO 45g/Cardiac diet modified per CAGE MAKER MACHINE recommendations 4) Continue current plan of care Expected Outcomes/Goals: 1) Pt to receive nutrition support within 7 days of NPO status 2) Pt diet to advance 3) F/U in 2-3 days NITHIN ANAYA MD Jan 20, 2024 18:39
--- NOTE | 2024-01-20 22:21 | DVHPNRES ---
Progress Note Date Seen: Jan 20, 2024 Resident Creating Document: MAKENNA MARTINEZ RESIDENT Has the PT tested + for MRSA If YES, has PT been informed?: No Medical Necessity Reason Pt with a Central, PICC or Fol: Yes The following are medically ne: PICC Line, Carr Catheter Reason for carr catheter: Strict I&O Subjective Review of Systems A 68 y old female with PMHx of HTN, DM type 2, hypothyroidism, COPD, obesity, liver cirrhosis Home meds: atorvastatin, vit D, glipizide, inuslin aspart and glargine, levothyroxine, lisinoprl, pramipezole, pregabalin She came initially at [facility] on 11/16/2023 for AMS and DKA in this facility she was intubated and transfer to [facility]. Here, a CT scan of the abdomen showed CBD dilation and was sent to [facility] 11/26/2023 for ERCP, which didn't show any obstruction, Also a brain MRI was done showing mulitple old infracts. Patient was again transferred to [facility] 11/28/2023 extubated and On 12/03/2023 patient required reintubation, on 12/12/23: gastrostomy was done and 12/13/23 tracheostomy was done. Cultures: 12/08/23: sputum negative 12/08/23: urine negative 12/09/23: blood culture negative 5 days 12/14/23: urine negative 12/21/23: respiratory culture normal jordan Images: 01/08/24: abdomen US Cholelithiasis with thickened gallbladder wall and pericholecystic fluid. The common bile duct is also dilated. Although the ultrasound Mclain's sign is negative ultrasound findings suggest acute cholecystitis. 16.87 cm liver with findings suggesting steatosis. 12/10/23: Abdomen/ pelvis CT scan No acute findings in the abdomen or pelvis. Multifocal airspace disease. 11/21/23: MRI brain Signal abnormality in the bilateral cerebellum and right occipital lobe, as well as punctate foci in the right parietal lobe and centrum semiovale. Findings could represent regions of subacute ischemia due to embolic infarcts; however, underlying metastases or infection are not excluded 11/21/23: MRCP Distended gallbladder with mild pericholecystic edema and gallbladder wall thickening. No definite gallbladder stones or sludge are present. There is diffuse dilation of the extrahepatic common bile duct measuring up to 1.1 cm. There is no definite appreciable obstructing stone or mass. Small ampullary lesion or stone is not completely excluded. ERCP could be obtained to further evaluate if clinically indicated. 01/18/2024 HIDA scan negative for cholecystitis Patient is alert and oriented in person, place and time. Speaking sentences, answering all type of questions and working with physical therapy twice a day. Patient passes swallow evaluation 01/06/2024 and is currently tolerating pureed diet. Patient tolerated decannulation, GI on board for peg tube removal Objective vital signs Vital Sign Date Time Temp Pulse Resp B/P (MAP) Pulse Ox O2 Delivery O2 Flow Rate FiO2 01/20/24 21:56 98 Room Air* 0 21 01/20/24 21:23 67 150/71 01/20/24 16:54 98.4 20 98.4 Total Intake and Output 01/19/24 01/19/24 01/20/24 15:00 23:00 07:00 Intake Total 1480 ml Balance 1480 ml medications Current Medications Medications Dose Ordered Sig/Leslie Route Start Time Stop Time Status Last Admin Dose Admin Insulin Glargine 15 units DAILY@1000 SC 12/24/23 13:30 01/20/24 10:47 15 UNITS Lorazepam 0.5 mg Q4H PRN IV 01/08/24 15:00 01/20/24 18:30 0.5 MG Albuterol 2.5 mg Q8HR NEB 01/08/24 22:00 01/20/24 14:09 2.5 MG Ipratropium [place] 0.5 mg Q8HR NEB 01/08/24 22:00 01/20/24 14:09 0.5 MG Loperamide HCl 2 mg PRN PRN GT 01/08/24 17:15 Melatonin 5 mg HS PO 01/09/24 22:00 01/20/24 21:23 5 MG Levothyroxine Sodium 112 mcg QAM@0600 PO 01/09/24 06:00 01/20/24 06:08 112 MCG Hydralazine HCl 10 mg Q6HP PRN IV 01/13/24 02:30 01/13/24 02:42 10 MG Acetaminophen 325 mg Q6HP PRN PO 01/14/24 15:45 01/16/24 01:34 325 MG Diagnostic Test (Pha) 1 strip ACHS 01/15/24 11:30 01/20/24 21:24 1 STRIP Insulin Human Regular ACHS SC 01/15/24 11:30 01/20/24 21:31 3 UNITS Dextrose 50 ml UD PRN IV 01/15/24 10:45 Morphine Sulfate 4 mg Q2HPRN PRN IV 01/15/24 12:15 01/20/24 02:07 4 MG Pramipexole Dihydrochloride 0.5 mg HS PO 01/17/24 22:00 01/20/24 21:22 0.5 MG Pantoprazole Sodium 40 mg DAILY@0600 PO 01/19/24 06:00 01/20/24 06:08 40 MG Gabapentin 100 mg BID PO 01/19/24 10:00 01/20/24 21:23 100 MG Losartan Potassium 100 mg DAILY PO 01/19/24 10:00 01/20/24 09:42 100 MG Metoprolol Tartrate 37.5 mg BID PO 01/19/24 10:00 01/20/24 21:23 37.5 MG Acetaminophen/ Hydrocodone Bitart 1 tab Q8HPRN PRN PO 01/19/24 16:45 01/20/24 14:55 1 TAB Examination Alert HEENT: Normocephalic, atraumatic, moist mucous membranes, trach stoma successfully closing Respiratory/pulmonary: Bilateral lung sounds grossly clear, Cardiovascular: Regular heart sounds S1 and S2 with no associated murmurs. Abdomen: Abdomen nondistended, there is mild pain to palpation to the epigastric region, no palpable masses. PEG tube on place with no signs in infection at this time. Extremities: There are no peripheral edema at this time. laboratory and microbiology Laboratory Tests 01/20/24 05:37 01/19/24 06:22 Test 01/20/24 05:37 Range/Units Serum Glucose 88 74-106 mg/dL Microbiology Date/Time Source Procedure Growth Status 12/21/23 09:42 Trachea Gram Stain - Final Complete 12/21/23 09:42 Respiratory Culture - Final Yeast, not Sapphire albicans Complete 12/14/23 19:42 Voided Urine Urine Culture - Final Complete 12/09/23 09:28 Blood Blood Culture - Final NO GROWTH AFTER 5 DAYS OF INCUBATION. 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 #Hypertensive heart disease on acute on chronic diastolic heart failure -Continue losartan 50mg QD -Continue metoprolol 25mg PO BID Respiratory #S/P tracheostomy (12/13/23) Pt was decannulated successfully Continue puree diet PT is reinforced #Acute hypoxic respiratory failure likely in the setting of aspiration pneumonia No antibiotics according to ID Swallow evaluation 01/06/2024: patient is tolerate puree and nectar Infectious disease #Sepsis likely due to aspiration pneumonia and UTI resolved -Completed antibiotic treatment #Acute cholecystitis ruled out Patient is poor candidate for elective procedures, no need of emergency procedures at the time HIDA scan no cholecystitis Endocrinology Type 2 diabetes mellitus, DKA : uncontrolled -Continue mild sliding scale insulin -Continue Lantus 15 units q.a.m. Hypothyroidism -Continue levothyroxine 112mcgQAM Hyponatremia NS 3% now 134 Gastroenterology #s/p g tube pending removing PEG tube NPO after midnight #Acute cholecystitis ruled out describe above #Hepatic steatosis #Dilated CBD #Acute transaminitis trending down Hematology Superficial thrombophlebitis of right cephalic and basilic veins -no need for anticoagulation NO SONOGRAPHIC EVIDENCE FOR DEEP VENOUS THROMBOSIS IN THE LEFT UPPER EXTREMITY VEINS. Nephrology YULIANA likely due to VMN resolving -Monitor kidney function Nutrition Continue puree diet Continue physical therapy to twice a day DC planning Goals of care discussed with the patient for 25 min Plan discussed with Dr. Razo Plan discussed with: Patient, Other (rn) Dietary Evaluation Review Comments: 1) If GI is accessible consider Glucerna 1.2 @ 55 ml/hr goal rate as tolerated 2) If pt remains NPO >7 days consider TPN to meet at least 75% of estimated needs 3) Advance pt diet when medically feasible to a CCHO 45g/Cardiac diet modified per WINDOWS ARCHITECT recommendations 4) Continue current plan of care Expected Outcomes/Goals: 1) Pt to receive nutrition support within 7 days of NPO status 2) Pt diet to advance 3) F/U in 2-3 days Date of Service: Jan 20, 2024 Billing Provider: FREEDOM RAZO MD Common Visit Codes: 58126-[id number] INP/OBS CARE(HIGH) Secondary Visit Codes: [id number] CARE PLAN 30 MINUTES MAKENNA MARTINEZ RESIDENT Jan 20, 2024 22:21 FREEDOM RAZO MD Jan 22, 2024 11:52
[2024-01-21] VITALS (15 sets, daily range): BP systolic 132–149; BP diastolic 53–80; PULSE 59–71; RESP 14–20; TEMP 97.6–97.9; O2SAT 93–100
[2024-01-21 06:27] LABS: Chloride 100 mmol/L (98-107); Potassium 4.5 mmol/L (3.5-5.1); Sodium 134 mmol/L (136-145)
[2024-01-21 06:28] LABS: Anion Gap 8 (5-15); Carbon Dioxide 26 mmol/L (20-31)
[2024-01-21 06:29] LABS: Calcium 10.6 mg/dL (8.7-10.4)
[2024-01-21 06:33] LABS: BUN/Creatinine Ratio 10.7 (10.0-20.0); Blood Urea Nitrogen 8 mg/dL (9-23); Glucose 91 mg/dL (74-106)
--- NOTE | 2024-01-21 12:18 | DVHPNRES ---
Progress Note Date Seen: Jan 21, 2024 Resident Creating Document: MAKENNA MARTINEZ RESIDENT Has the PT tested + for MRSA If YES, has PT been informed?: No Medical Necessity Reason Pt with a Central, PICC or Fol: Yes The following are medically ne: PICC Line, Carr Catheter Reason for carr catheter: Strict I&O Subjective Review of Systems A 68 y old female with PMHx of HTN, DM type 2, hypothyroidism, COPD, obesity, liver cirrhosis Home meds: atorvastatin, vit D, glipizide, inuslin aspart and glargine, levothyroxine, lisinoprl, pramipezole, pregabalin She came initially at [facility] on 11/16/2023 for AMS and DKA in this facility she was intubated and transfer to [facility]. Here, a CT scan of the abdomen showed CBD dilation and was sent to [facility] 11/26/2023 for ERCP, which didn't show any obstruction, Also a brain MRI was done showing mulitple old infracts. Patient was again transferred to [facility] 11/28/2023 extubated and On 12/03/2023 patient required reintubation, on 12/12/23: gastrostomy was done and 12/13/23 tracheostomy was done. Cultures: 12/08/23: sputum negative 12/08/23: urine negative 12/09/23: blood culture negative 5 days 12/14/23: urine negative 12/21/23: respiratory culture normal jordan Images: 01/08/24: abdomen US Cholelithiasis with thickened gallbladder wall and pericholecystic fluid. The common bile duct is also dilated. Although the ultrasound Mclain's sign is negative ultrasound findings suggest acute cholecystitis. 16.87 cm liver with findings suggesting steatosis. 12/10/23: Abdomen/ pelvis CT scan No acute findings in the abdomen or pelvis. Multifocal airspace disease. 11/21/23: MRI brain Signal abnormality in the bilateral cerebellum and right occipital lobe, as well as punctate foci in the right parietal lobe and centrum semiovale. Findings could represent regions of subacute ischemia due to embolic infarcts; however, underlying metastases or infection are not excluded 11/21/23: MRCP Distended gallbladder with mild pericholecystic edema and gallbladder wall thickening. No definite gallbladder stones or sludge are present. There is diffuse dilation of the extrahepatic common bile duct measuring up to 1.1 cm. There is no definite appreciable obstructing stone or mass. Small ampullary lesion or stone is not completely excluded. ERCP could be obtained to further evaluate if clinically indicated. 01/18/2024 HIDA scan negative for cholecystitis Patient is alert and oriented in person, place and time. Speaking sentences, answering all type of questions and working with physical therapy twice a day. Patient passes swallow evaluation 01/06/2024 and is currently tolerating pureed diet. Patient tolerated decannulation, GI on board for peg tube removal Objective vital signs Vital Sign Date Time Temp Pulse Resp B/P (MAP) Pulse Ox O2 Delivery O2 Flow Rate FiO2 01/21/24 11:58 61 18 99 01/21/24 11:47 Room Air* 0 21 01/21/24 05:00 97.9 136/75 (95) 97.9 medications Current Medications Medications Dose Ordered Sig/Leslie Route Start Time Stop Time Status Last Admin Dose Admin Insulin Glargine 15 units DAILY@1000 SC 12/24/23 13:30 01/20/24 10:47 15 UNITS Lorazepam 0.5 mg Q4H PRN IV 01/08/24 15:00 01/20/24 18:30 0.5 MG Albuterol 2.5 mg Q8HR NEB 01/08/24 22:00 01/21/24 11:46 2.5 MG Ipratropium [place] 0.5 mg Q8HR NEB 01/08/24 22:00 01/21/24 11:46 0.5 MG Loperamide HCl 2 mg PRN PRN GT 01/08/24 17:15 Melatonin 5 mg HS PO 01/09/24 22:00 01/20/24 21:23 5 MG Levothyroxine Sodium 112 mcg QAM@0600 PO 01/09/24 06:00 01/21/24 05:56 112 MCG Hydralazine HCl 10 mg Q6HP PRN IV 01/13/24 02:30 01/13/24 02:42 10 MG Acetaminophen 325 mg Q6HP PRN PO 01/14/24 15:45 01/16/24 01:34 325 MG Diagnostic Test (Pha) 1 strip ACHS 01/15/24 11:30 01/21/24 11:46 1 STRIP Insulin Human Regular ACHS SC 01/15/24 11:30 01/20/24 21:31 3 UNITS Dextrose 50 ml UD PRN IV 01/15/24 10:45 Morphine Sulfate 4 mg Q2HPRN PRN IV 01/15/24 12:15 01/20/24 02:07 4 MG Pramipexole Dihydrochloride 0.5 mg HS PO 01/17/24 22:00 01/20/24 21:22 0.5 MG Pantoprazole Sodium 40 mg DAILY@0600 PO 01/19/24 06:00 01/21/24 05:56 40 MG Gabapentin 100 mg BID PO 01/19/24 10:00 01/20/24 21:23 100 MG Losartan Potassium 100 mg DAILY PO 01/19/24 10:00 01/20/24 09:42 100 MG Metoprolol Tartrate 37.5 mg BID PO 01/19/24 10:00 01/20/24 21:23 37.5 MG Acetaminophen/ Hydrocodone Bitart 1 tab Q8HPRN PRN PO 01/19/24 16:45 01/21/24 06:23 1 TAB Sertraline HCl 50 mg DAILY PO 01/21/24 10:00 Examination Alert HEENT: Normocephalic, atraumatic, moist mucous membranes, trach stoma successfully closing Respiratory/pulmonary: Bilateral lung sounds grossly clear, Cardiovascular: Regular heart sounds S1 and S2 with no associated murmurs. Abdomen: Abdomen nondistended, there is mild pain to palpation to the epigastric region, no palpable masses. PEG tube on place with no signs in infection at this time. Extremities: There are no peripheral edema at this time laboratory and microbiology Laboratory Tests 01/21/24 05:53 01/19/24 06:22 Test 01/21/24 05:53 Range/Units Serum Glucose 91 74-106 mg/dL Microbiology Date/Time Source Procedure Growth Status 12/21/23 09:42 Trachea Gram Stain - Final Complete 12/21/23 09:42 Respiratory Culture - Final Yeast, not [place] albicans Complete 12/14/23 19:42 Voided Urine Urine Culture - Final Complete 12/09/23 09:28 Blood Blood Culture - Final NO GROWTH AFTER 5 DAYS OF INCUBATION. 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 #Hypertensive heart disease on acute on chronic diastolic heart failure -Continue losartan 50mg QD -Continue metoprolol 25mg PO BID Respiratory #S/P tracheostomy (12/13/23) Pt was decannulated successfully Continue puree diet PT is reinforced #Acute hypoxic respiratory failure likely in the setting of aspiration pneumonia No antibiotics according to ID Swallow evaluation 01/06/2024: patient is tolerate puree and nectar Infectious disease #Sepsis likely due to aspiration pneumonia and UTI resolved -Completed antibiotic treatment #Acute cholecystitis ruled out Patient is poor candidate for elective procedures, no need of emergency procedures at the time HIDA scan no cholecystitis Endocrinology Type 2 diabetes mellitus, DKA : uncontrolled -Continue mild sliding scale insulin -Continue Lantus 15 units q.a.m. Hypothyroidism -Continue levothyroxine 112mcgQAM Hyponatremia NS 3% now 134 Gastroenterology #s/p g tube pending removing PEG tube #Acute cholecystitis ruled out describe above #Hepatic steatosis #Dilated CBD #Acute transaminitis trending down Hematology Superficial thrombophlebitis of right cephalic and basilic veins -no need for anticoagulation NO SONOGRAPHIC EVIDENCE FOR DEEP VENOUS THROMBOSIS IN THE LEFT UPPER EXTREMITY VEINS. Nephrology YULIANA likely due to VMN resolving -Monitor kidney function Nutrition Continue puree diet Continue physical therapy to twice a day DC planning Goals of care discussed with the patient for 25 min Plan discussed with Dr. Harris Plan discussed with: Patient, Other (rn) My Orders My Orders Orders - MAKENNA MARTINEZ Procedure Category Date Status Time Sertraline Hcl PHA 01/21/24 In Process (Zoloft) 10:00 Dietary Evaluation Review Comments: 1) If GI is accessible consider Glucerna 1.2 @ 55 ml/hr goal rate as tolerated 2) If pt remains NPO >7 days consider TPN to meet at least 75% of estimated needs 3) Advance pt diet when medically feasible to a CCHO 45g/Cardiac diet modified per PROFESSOR OF BIOLOGY recommendations 4) Continue current plan of care Expected Outcomes/Goals: 1) Pt to receive nutrition support within 7 days of NPO status 2) Pt diet to advance 3) F/U in 2-3 days Date of Service: Jan 21, 2024 Billing Provider: BRUCE HARRIS MD Common Visit Codes: [id number] INP/OBS CARE(HIGH) MAKENNA MARTINEZ RESIDENT Jan 21, 2024 12:18 BRUCE HARRIS MD Jan 21, 2024 22:22
[2024-01-21] MEDS ORDERED: hydrALAZINE HCL 20 MG/ML VL IV PRN (15:00)
[2024-01-21] MEDS ORDERED: NALOXONE HCL 0.4 MG/ML VIAL IV PRN (15:00)
[2024-01-21] MEDS: ONDANSETRON HCL 4 MG/2 ML VIAL IV ONE (15:00)
[2024-01-21] MEDS ORDERED: ePHEDrine SULFATE 50 MG/ML AMP IV PRN (15:00)
--- NOTE | 2024-01-21 15:51 | DVHOP2 ---
Operative Report DATE OF OPERATION: 01/21/24 PROCEDURE: Upper Endoscopy with removal of gastrostomy tube. PREOPERATIVE INDICATION: The patient is a 68 -year-old female undergoing endoscopy for removal of gastrostomy tube as the patient is now able to eat POSTOPERATIVE DIAGNOSES: 1. Percutaneous gastrostomy tube was removed endoscopically as per standard protocol 2. The rest of the endoscopic examination was unremarkable PROCEDURE PERFORMED BY: Yolie Brody GI NURSE: Jose SCOPE: Olympus videoendoscope. ASA CLASS: 3. PREOPERATIVE MEDICATIONS: Mac Dr. Zakiya sparrow PROCEDURE IN DETAIL: After obtaining an informed consent, the patient was placed on left lateral decubitus position. The patient was then sedated with the above medications. A bite block was placed between her teeth. The endoscope was then passed through the oropharynx, into the esophagus, and through the stomach and pylorus up to the second and third part of the duodenum. The endoscope was then withdrawn. The 2nd and 3rd part of the duodenum and the duodenal bulb were normal. The pre-pyloric area and antrum showed minimal gastritis. On retroflexion the f undus and cardia were normal. The phalange of the gastrostomy tube was seen in the midbody of the stomach. This was removed per orally using a polypectomy snare after cutting it externally The gastrostomy site was dressed in a sterile fashion with tape The patient tolerated the procedure well without difficulty. COMPLICATIONS : None SPECIMENS: None DISPOSITION: Transfer back to the floor Stable PLAN: 1. Resume pureed diet and advance as tolerated 2. Outpatient follow up with GI Services as needed 3. Discharge planning as per hospitalist YOLIE BRODY MD Jan 21, 2024 15:51
[2024-01-21] MEDS: SERTRALINE HCL 50 MG TAB PO SCH (16:26)
--- NOTE | 2024-01-21 19:07 | DVHPN2 ---
Consult Progress Note Date Seen: Jan 21, 2024 Subjective Patient reports: Other (had PEG tube removed today by GI service and tolerating it , not having any abdominal pain , has not tried eating yet , is lethargic but answering questions , moving upper extremities without difficulty ) Objective vital signs Vital Sign Date Time Temp Pulse Resp B/P (MAP) Pulse Ox O2 Delivery O2 Flow Rate FiO2 01/21/24 17:00 70 20 149/52 01/21/24 16:00 97.9 97 97.9 01/21/24 14:51 Mask 8.0 100 medications Current Medications Medications Dose Ordered Sig/Leslie Route Start Time Stop Time Status Last Admin Dose Admin Insulin Glargine 15 units DAILY@1000 SC 12/24/23 13:30 01/20/24 10:47 15 UNITS Lorazepam 0.5 mg Q4H PRN IV 01/08/24 15:00 01/20/24 18:30 0.5 MG Albuterol 2.5 mg Q8HR NEB 01/08/24 22:00 01/21/24 11:46 2.5 MG Ipratropium [place] 0.5 mg Q8HR NEB 01/08/24 22:00 01/21/24 11:46 0.5 MG Loperamide HCl 2 mg PRN PRN GT 01/08/24 17:15 Melatonin 5 mg HS PO 01/09/24 22:00 01/20/24 21:23 5 MG Levothyroxine Sodium 112 mcg QAM@0600 PO 01/09/24 06:00 01/21/24 05:56 112 MCG Hydralazine HCl 10 mg Q6HP PRN IV 01/13/24 02:30 01/13/24 02:42 10 MG Acetaminophen 325 mg Q6HP PRN PO 01/14/24 15:45 01/16/24 01:34 325 MG Diagnostic Test (Pha) 1 strip ACHS 01/15/24 11:30 01/21/24 16:31 1 STRIP Insulin Human Regular ACHS SC 01/15/24 11:30 01/20/24 21:31 3 UNITS Dextrose 50 ml UD PRN IV 01/15/24 10:45 Morphine Sulfate 4 mg Q2HPRN PRN IV 01/15/24 12:15 01/21/24 16:25 4 MG Pramipexole Dihydrochloride 0.5 mg HS PO 01/17/24 22:00 01/20/24 21:22 0.5 MG Pantoprazole Sodium 40 mg DAILY@0600 PO 01/19/24 06:00 01/21/24 05:56 40 MG Gabapentin 100 mg BID PO 01/19/24 10:00 01/20/24 21:23 100 MG Losartan Potassium 100 mg DAILY PO 01/19/24 10:00 01/21/24 16:25 100 MG Metoprolol Tartrate 37.5 mg BID PO 01/19/24 10:00 01/20/24 21:23 37.5 MG Acetaminophen/ Hydrocodone Bitart 1 tab Q8HPRN PRN PO 01/19/24 16:45 01/21/24 06:23 1 TAB Sertraline HCl 50 mg DAILY PO 01/21/24 10:00 01/21/24 16:26 50 MG PHYSICAL EXAM - GENERAL: Alert and oriented x 3. No acute distress. Well-nourished. - EYES: EOMI. Anicteric. - HENT: Moist mucous membranes. No scleral icterus. No cervical lymphadenopathy. - LUNGS: Clear to auscultation bilaterally. No accessory muscle use. - CARDIOVASCULAR: Regular rate and rhythm. No murmur. No JVD. - ABDOMEN: Soft, non-tender and non-distended. No palpable masses. - EXTREMITIES: No edema. Non-tender.SKIN: No rashes or lesions. Warm. - NEUROLOGIC: No focal neurological deficits. CN II-XII grossly intact, but not individually tested. - PSYCHIATRIC: Cooperative. Appropriate mood and affect. laboratory and microbiology Laboratory Tests 01/21/24 05:53 01/19/24 06:22 Test 01/21/24 05:53 Range/Units Serum Glucose 91 74-106 mg/dL Problem List/Assessment/Plan Problems(with codes): (1) COPD (chronic obstructive pulmonary disease) (2) DKA (diabetic ketoacidosis) (3) HTN (hypertension) (4) Hospital-acquired pneumonia (5) Closed right hip fracture (6) Cholelithiasis and acute cholecystitis without obstruction (7) Elevated liver enzymes Problem List/Assessment/Plan Assessment/Plan Problems(with codes): (1) Hospital-acquired pneumonia (2) COPD (chronic obstructive pulmonary disease) (3) DKA (diabetic ketoacidosis) (4) HTN (hypertension) (5) Closed right hip fracture Plan/Recommendation ASSESSMENT AND PLAN: ID Problem List: - Aspiration pneumonia - Acute respiratory failure - Diabetic Ketoacidosis (DKA) - Sepsis due to UTI vs pneumonia - Acute Kidney Injury (YULIANA) - Hypernatremia - Transaminitis - Fatty liver - Uncontrolled diabetes (A1C of 11.7) - Hypothyroidism - Hypertension - COPD without exacerbation - Chronic kidney disease (CKD) Assessment: This is a 68-year-old female with a past medical history of diabetes, hypertension, recurrent DKA, hypothyroidism, obesity, COPD, neuropathies, mechanical falls, liver cirrhosis, and multiple joint replacements. The patient presented to the ED with acute loss of consciousness on 11/15/2023, subsequently diagnosed with DKA and an upper GI bleed. While at [facility], a CT and MRI of the head showed concerning lesions for metastasis vs. infectious process and gallbladder issues. Due to renal failure, these images were performed without contrast. An ERCP at [facility] showed no gallstones or common bile duct obstruction. Currently, the patient is reintubated on minimal sedation and receiving broad-spectrum antibiotics for presumed meningitis and other infections. 12/09: Patient has had a repeat abdomen, pelvis, chest Ct with contrast which shows no acute findings in the abdomen and pelvis. multifocal airspace in the lungs was shown. 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 12/12: sp trach 12/13: off sedation 12/19: trach 7l,elevated temps 12/23: Sputal culture is showing normal oral pharyngeal jordan, chest X-ray shows clear lungs, yesterdays X-rays show interstitial edema otherwise clear lungs. Recomend patient continue off antibiotics and just do aspiriations. If fever starts , cosider antibiotics for aspiration pnumonia , suspect Pneumonitis 12/26: Peg tube feeding were stopped , soft abdomen and having bowel movements. Chest X-ray shows mild pulmonary congestion. Otherwise patient is stable with no fevers 12/27: Peg tube is dry and intact. Restarted on [place]. Continues to work on physical therapy 12/29: now on 6 liters of drip , improving , recommend incentive spirometry, continue working with physical therapists and encouraged out of bed 01/02: Chest X-ray shows no significant changes, white count dropped to 1.8 and hemoglobin is 9.7 01/06: white count is up to 12.7 , potentially related to new diet 01/07: leukocytosis resolved 01/09: Lesli Medeiros has determined that patient is not surgical 01/11: feeding tube placed yesterday 01/12: Chest x-ray is clear , patient on room air, suspect leukocytosis was related to aspiration pneumonitis as opposed to full on pneumonia 01/13: MRCP in the past has shown distened bladder with mild perisystic edema and gallbladder thickening , abdominal untrasound shows gallstones with thicken gallbladder with pericolycystic fluid . YOLANDA results show normal left ventricle, size and dimension of 55%, valves without any significance, no evidence of intracardic masses or vegitations 01/17: patients trach tube is capped 01/19: scan has come back negative for acute colecystitis , GI plans to remove PEG tube tommorow Plan: - follow patient clinically off all antibiotics - continue off antibiotics unless fever starts up - sp 3 week vancomycin and ceftriaxone course, will monitor patient off all antibiotics - aspiration precautions - Blood cultures monitoring. - Monitor respiratory status and adjust ventilator settings as necessary. - Monitor and manage blood glucose levels. - Supportive care as needed. Plan discussed with: Other Dietary Evaluation Review Comments: 1) If GI is accessible consider Glucerna 1.2 @ 55 ml/hr goal rate as tolerated 2) If pt remains NPO >7 days consider TPN to meet at least 75% of estimated needs 3) Advance pt diet when medically feasible to a CCHO 45g/Cardiac diet modified per BREAKER MECHANIC recommendations 4) Continue current plan of care Expected Outcomes/Goals: 1) Pt to receive nutrition support within 7 days of NPO status 2) Pt diet to advance 3) F/U in 2-3 days NITHIN ANAYA MD Jan 21, 2024 19:07
[2024-01-22] VITALS (15 sets, daily range): BP systolic 127–162; BP diastolic 56–79; PULSE 59–74; RESP 15–18; TEMP 97.5–98.1; O2SAT 68–100
[2024-01-22 06:31] LABS: Basophils # (auto) 0.1 10 ^3/uL (0-0.2); Basophils % (auto) 1.4 % (0.0-2.0); Eosinophils # (auto) 0.5 10 ^3/uL (0-0.8); Eosinophils % (auto) 9.5 % (0.0-7.0); Hematocrit 32.7 % (36.0-46.0); Hemoglobin 10.6 g/dL (12.2-16.2); Lymphocytes # (auto) 2.4 10 ^3/uL (0.4-5.4); Lymphocytes % (auto) 47.1 % (10.0-50.0); Mean Corpuscular Hemoglobin 26.9 pg (28.0-32.0); Mean Corpuscular Hgb Conc. 32.4 g/dL (32.0-36.0); Mean Corpuscular Volume 82.9 fL (80.0-100.0); Monocytes # (auto) 0.3 10 ^3/uL (0-1.3); Monocytes % (auto) 5.1 % (0.0-12.0); Neutrophils # (auto) 1.8 10 ^3/uL (1.6-8.6); Neutrophils % (auto) 36.9 % (37.0-80.0); Nucleated Red Blood Cells % 0.1 %; Platelet Count (auto) 393 10^3/uL (140-450); Red Blood Cells 3.94 10^6/uL (4.0-5.20); Red Cell Distribution Width 16.6 % (11.8-14.3)
[2024-01-22 06:50] LABS: Alanine Aminotransferase 48 U/L (7-40); Albumin 3.7 g/dL (3.2-4.8); Alkaline Phosphatase 786 U/L (46-116); Anion Gap 8 (5-15); Aspartate Aminotransferase 58 U/L (13-40); BUN/Creatinine Ratio 10.8 (10.0-20.0); Blood Urea Nitrogen 10 mg/dL (9-23); Calcium 10.1 mg/dL (8.7-10.4); Carbon Dioxide 25 mmol/L (20-31); Chloride 101 mmol/L (98-107); Glucose 137 mg/dL (74-106); Potassium 4.7 mmol/L (3.5-5.1); Sodium 134 mmol/L (136-145)
[2024-01-22 06:51] LABS: Bilirubin, Total 0.2 mg/dL (0.2-1.0); Total Protein 6.9 g/dL (5.7-8.2)
--- NOTE | 2024-01-22 14:56 | DVHPNRES ---
Progress Note Date Seen: Jan 22, 2024 Resident Creating Document: PHILIP CONNER RESIDENT Has the PT tested + for MRSA If YES, has PT been informed?: No Medical Necessity Reason Pt with a Central, PICC or Fol: Yes The following are medically ne: PICC Line, Carr Catheter Reason for carr catheter: Strict I&O Subjective Review of Systems A 68 y old female with PMHx of HTN, DM type 2, hypothyroidism, COPD, obesity, liver cirrhosis Home meds: atorvastatin, vit D, glipizide, inuslin aspart and glargine, levothyroxine, lisinoprl, pramipezole, pregabalin She came initially at [facility] on 11/16/2023 for AMS and DKA in this facility she was intubated and transfer to [facility]. Here, a CT scan of the abdomen showed CBD dilation and was sent to [facility] 11/26/2023 for ERCP, which didn't show any obstruction, Also a brain MRI was done showing mulitple old infracts. Patient was again transferred to [facility] 11/28/2023 extubated and On 12/03/2023 patient required reintubation, on 12/12/23: gastrostomy was done and 12/13/23 tracheostomy was done. Cultures: 12/08/23: sputum negative 12/08/23: urine negative 12/09/23: blood culture negative 5 days 12/14/23: urine negative 12/21/23: respiratory culture normal jordan Images: 01/08/24: abdomen US Cholelithiasis with thickened gallbladder wall and pericholecystic fluid. The common bile duct is also dilated. Although the ultrasound Mclain's sign is negative ultrasound findings suggest acute cholecystitis. 16.87 cm liver with findings suggesting steatosis. 12/10/23: Abdomen/ pelvis CT scan No acute findings in the abdomen or pelvis. Multifocal airspace disease. 11/21/23: MRI brain Signal abnormality in the bilateral cerebellum and right occipital lobe, as well as punctate foci in the right parietal lobe and centrum semiovale. Findings could represent regions of subacute ischemia due to embolic infarcts; however, underlying metastases or infection are not excluded 11/21/23: MRCP Distended gallbladder with mild pericholecystic edema and gallbladder wall thickening. No definite gallbladder stones or sludge are present. There is diffuse dilation of the extrahepatic common bile duct measuring up to 1.1 cm. There is no definite appreciable obstructing stone or mass. Small ampullary lesion or stone is not completely excluded. ERCP could be obtained to further evaluate if clinically indicated. 01/18/2024 HIDA scan negative for cholecystitis Patient is alert and oriented in person, place and time. No new complaints. Patient underwent removal of PEG tube yesterday. Patient is tolerating diet well. No signs of aspiration. Objective vital signs Vital Sign Date Time Temp Pulse Resp B/P (MAP) Pulse Ox O2 Delivery O2 Flow Rate FiO2 01/22/24 14:22 67 15 158/64 01/22/24 09:00 97.8 90 97.8 01/22/24 08:00 Room Air* 0 21 Total Intake and Output 01/21/24 01/21/24 01/22/24 15:00 23:00 07:00 Intake Total 0 ml 600 ml Balance 0 ml 600 ml medications Current Medications Medications Dose Ordered Sig/Leslie Route Start Time Stop Time Status Last Admin Dose Admin Insulin Glargine 15 units DAILY@1000 SC 12/24/23 13:30 01/22/24 10:00 15 UNITS Lorazepam 0.5 mg Q4H PRN IV 01/08/24 15:00 01/22/24 10:34 0.5 MG Albuterol 2.5 mg Q8HR NEB 01/08/24 22:00 01/22/24 06:43 2.5 MG Ipratropium Ada 0.5 mg Q8HR NEB 01/08/24 22:00 01/22/24 06:43 0.5 MG Loperamide HCl 2 mg PRN PRN GT 01/08/24 17:15 Melatonin 5 mg HS PO 01/09/24 22:00 01/21/24 21:23 5 MG Levothyroxine Sodium 112 mcg QAM@0600 PO 01/09/24 06:00 01/22/24 06:09 112 MCG Hydralazine HCl 10 mg Q6HP PRN IV 01/13/24 02:30 01/13/24 02:42 10 MG Acetaminophen 325 mg Q6HP PRN PO 01/14/24 15:45 01/16/24 01:34 325 MG Diagnostic Test (Pha) 1 strip ACHS 01/15/24 11:30 01/22/24 11:54 1 STRIP Insulin Human Regular ACHS SC 01/15/24 11:30 01/22/24 11:55 4 UNITS Dextrose 50 ml UD PRN IV 01/15/24 10:45 Morphine Sulfate 4 mg Q2HPRN PRN IV 01/15/24 12:15 01/22/24 14:22 4 MG Pramipexole Dihydrochloride 0.5 mg HS PO 01/17/24 22:00 01/21/24 21:24 0.5 MG Pantoprazole Sodium 40 mg DAILY@0600 PO 01/19/24 06:00 01/22/24 06:09 40 MG Gabapentin 100 mg BID PO 01/19/24 10:00 01/22/24 10:34 100 MG Losartan Potassium 100 mg DAILY PO 01/19/24 10:00 01/22/24 10:33 100 MG Metoprolol Tartrate 37.5 mg BID PO 01/19/24 10:00 01/22/24 10:33 37.5 MG Acetaminophen/ Hydrocodone Bitart 1 tab Q8HPRN PRN PO 01/19/24 16:45 01/21/24 22:00 1 TAB Sertraline HCl 50 mg DAILY PO 01/21/24 10:00 01/22/24 10:00 50 MG Examination General Appearance: Cooperative. Well developed. Well nourished. NAD Head Exam: Normal inspection Neck Exam: Normal inspection. Non-tender. Normal alignment Pulmonary/Respiratory: Chest non-tender. Clear bilateral breath sounds Cardiovascular/Chest: Regular rate and rhythm. No murmurs. No JVD. Peripheral Pulses: 2+ Radial (R). 2+ Radial (L). 2+ Pedal (R). 2+ Pedal (L) Abdominal Exam: Normal bowel sounds. Soft. Nontender. No hepatospenomegaly. No masses Ankle Exam: Negative ankle edema Lower extremities: Negative lower extremity edema Neuro/Mental Status: A&O x4. Coherent Thoughts/Psych: Normal thought pattern. Appropriate mood and affect. Good judgement and insight Appearance: In no acute distress Skin Exam: Normal inspection. Normal color. Warm. Dry laboratory and microbiology Laboratory Tests 01/22/24 05:58 Test 01/22/24 05:58 Range/Units Serum Glucose 137 H 74-106 mg/dL Microbiology Date/Time Source Procedure Growth Status 12/21/23 09:42 Trachea Gram Stain - Final Complete 12/21/23 09:42 Respiratory Culture - Final Yeast, not Sapphire albicans Complete 12/14/23 19:42 Voided Urine Urine Culture - Final Complete 12/09/23 09:28 Blood Blood Culture - Final NO GROWTH AFTER 5 DAYS OF INCUBATION. 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 #Hypertensive heart disease on acute on chronic diastolic heart failure -Continue losartan 50mg QD -Continue metoprolol 25mg PO BID Respiratory #S/P tracheostomy (12/13/23) Pt was decannulated successfully Continue puree diet PT is reinforced #Acute hypoxic respiratory failure likely in the setting of aspiration pneumonia No antibiotics according to ID Swallow evaluation 01/06/2024: patient is tolerate puree and nectar Infectious disease #Sepsis likely due to aspiration pneumonia and UTI resolved -Completed antibiotic treatment #Acute cholecystitis ruled out Patient is poor candidate for elective procedures, no need of emergency procedures at the time HIDA scan no cholecystitis Endocrinology Type 2 diabetes mellitus, DKA : uncontrolled -Continue mild sliding scale insulin -Continue Lantus 15 units q.a.m. Hypothyroidism -Continue levothyroxine 112mcgQAM Hyponatremia NS 3% now 134 Gastroenterology #s/p g tube pending removing PEG tube #Acute cholecystitis ruled out describe above #Hepatic steatosis #Dilated CBD #Acute transaminitis trending down Hematology Superficial thrombophlebitis of right cephalic and basilic veins -no need for anticoagulation NO SONOGRAPHIC EVIDENCE FOR DEEP VENOUS THROMBOSIS IN THE LEFT UPPER EXTREMITY VEINS. Nephrology YULIANA likely due to VMN resolving -Monitor kidney function Nutrition Continue puree diet Continue physical therapy to twice a day DC planning Peg tube was removed yesterday, advanced diet per toleration. Goals of care discussed with the patient for 25 min Plan discussed with Dr. Cobb Plan discussed with: Patient (RN), Other Dietary Evaluation Review Comments: 1) If GI is accessible consider Glucerna 1.2 @ 55 ml/hr goal rate as tolerated 2) If pt remains NPO >7 days consider TPN to meet at least 75% of estimated needs 3) Advance pt diet when medically feasible to a CCHO 45g/Cardiac diet modified per LATIN AMERICAN STUDIES DIRECTOR recommendations 4) Continue current plan of care Expected Outcomes/Goals: 1) Pt to receive nutrition support within 7 days of NPO status 2) Pt diet to advance 3) F/U in 2-3 days Date of Service: Jan 22, 2024 Billing Provider: REFUGIO COBB MD Common Visit Codes: [id number] INP/OBS CARE(HIGH) PHILIP CONNER RESIDENT Jan 22, 2024 14:56 REFUGIO COBB MD Jan 22, 2024 20:38
--- NOTE | 2024-01-22 19:23 | DVHPN2 ---
Progress Note Date Seen: Jan 22, 2024 Resident Creating Document: MEGAN WAY RESIDENT Has the PT tested + for MRSA If YES, has PT been informed?: No Medical Necessity Reason Pt with a Central, PICC or Fol: Yes The following are medically ne: PICC Line, Carr Catheter Reason for carr catheter: Strict I&O Medical Necessity Reason S/p Peg tube removal. stable from GI standpoint Subjective Review of Systems Constitutional: Denies fever, chills, feeling of malaise. Patient crying wanted to go home HEENT:Denies headache, ear pain, ear discharges, conjunctivitis, the triachiatic lashes, nasal discharge, throat pain Cardiovascular: Denies chest pain, palpitation, orthopnea, PND, pedal edema Respiratory: Denies cough, sputum production, shortness of breath, hemoptysis, GI: No abdominal pain, nausea, no vomiting, no diarrhea, no him hematemesis, no he hematochezia; tolerating feeds : No frequency, no urgency, no hematuria, Lamberto: No easy bruising, no bleeding disorders, epistaxis; Objective vital signs Vital Sign Date Time Temp Pulse Resp B/P (MAP) Pulse Ox O2 Delivery O2 Flow Rate FiO2 01/22/24 17:00 97.5 59 17 142/58 (86) 97 97.5 01/22/24 15:28 Room Air 01/22/24 15:28 0 21 Total Intake and Output 01/21/24 01/21/24 01/22/24 15:00 23:00 07:00 Intake Total 0 ml 600 ml Balance 0 ml 600 ml medications Current Medications Medications Dose Ordered Sig/Leslie Route Start Time Stop Time Status Last Admin Dose Admin Insulin Glargine 15 units DAILY@1000 SC 12/24/23 13:30 01/22/24 10:00 15 UNITS Lorazepam 0.5 mg Q4H PRN IV 01/08/24 15:00 01/22/24 16:55 0.5 MG Albuterol 2.5 mg Q8HR NEB 01/08/24 22:00 01/22/24 15:28 2.5 MG Ipratropium Renner 0.5 mg Q8HR NEB 01/08/24 22:00 01/22/24 15:28 0.5 MG Loperamide HCl 2 mg PRN PRN GT 01/08/24 17:15 Melatonin 5 mg HS PO 01/09/24 22:00 01/21/24 21:23 5 MG Levothyroxine Sodium 112 mcg QAM@0600 PO 01/09/24 06:00 01/22/24 06:09 112 MCG Hydralazine HCl 10 mg Q6HP PRN IV 01/13/24 02:30 01/13/24 02:42 10 MG Acetaminophen 325 mg Q6HP PRN PO 01/14/24 15:45 01/16/24 01:34 325 MG Diagnostic Test (Pha) 1 strip ACHS 01/15/24 11:30 01/22/24 17:00 1 STRIP Insulin Human Regular ACHS SC 01/15/24 11:30 01/22/24 11:55 4 UNITS Dextrose 50 ml UD PRN IV 01/15/24 10:45 Morphine Sulfate 4 mg Q2HPRN PRN IV 01/15/24 12:15 01/22/24 14:22 4 MG Pramipexole Dihydrochloride 0.5 mg HS PO 01/17/24 22:00 01/21/24 21:24 0.5 MG Pantoprazole Sodium 40 mg DAILY@0600 PO 01/19/24 06:00 01/22/24 06:09 40 MG Gabapentin 100 mg BID PO 01/19/24 10:00 01/22/24 10:34 100 MG Losartan Potassium 100 mg DAILY PO 01/19/24 10:00 01/22/24 10:33 100 MG Metoprolol Tartrate 37.5 mg BID PO 01/19/24 10:00 01/22/24 10:33 37.5 MG Acetaminophen/ Hydrocodone Bitart 1 tab Q8HPRN PRN PO 01/19/24 16:45 01/21/24 22:00 1 TAB Sertraline HCl 50 mg DAILY PO 01/21/24 10:00 01/22/24 10:00 50 MG Examination General Appearance: Seen and examined. Alert and awake no distress and eating Lungs: Clear to auscultation, tracheostomy collar Cardiovascular: Regular rate, Normal S1, Normal S2 Abdomen: s/p PEG tube removal. Site is clean and dry. Bowel sounds present Extremities: No edema laboratory and microbiology Laboratory Tests 01/22/24 05:58 Test 01/22/24 05:58 Range/Units Serum Glucose 137 H 74-106 mg/dL Microbiology Date/Time Source Procedure Growth Status 12/21/23 09:42 Trachea Gram Stain - Final Complete 12/21/23 09:42 Respiratory Culture - Final Yeast, not Sapphire albicans Complete 12/14/23 19:42 Voided Urine Urine Culture - Final Complete 12/09/23 09:28 Blood Blood Culture - Final NO GROWTH AFTER 5 DAYS OF INCUBATION. Complete 12/08/23 19:00 Sputum Gram Stain - Final Complete 12/08/23 19:00 Sputum Respiratory Culture - Final Complete Problem List/Assessment/Plan Problem List/Assessment/Plan (1) Elevated liver enzymes Now resolved (2) Cholelithiasis and acute cholecystitis without obstruction --> HIDA: Negative hepatobiliary study for cholecystitis. (3) Hospital-acquired pneumonia (4) DKA (diabetic ketoacidosis) (5) COPD (chronic obstructive pulmonary disease) (6) Status post PEG tube removal Plan Patient is stable and okay from GI standpoint. We will sign off today. Discharge planning as per hospitalist Goal of care discussed for more than 18 minutes: full code Case and plan discussed with Dr. Brody Plan discussed with: Patient Dietary Evaluation Review Comments: 1) If GI is accessible consider Glucerna 1.2 @ 55 ml/hr goal rate as tolerated 2) If pt remains NPO >7 days consider TPN to meet at least 75% of estimated needs 3) Advance pt diet when medically feasible to a CCHO 45g/Cardiac diet modified per REQUIREMENTS ANALYST recommendations 4) Continue current plan of care Expected Outcomes/Goals: 1) Pt to receive nutrition support within 7 days of NPO status 2) Pt diet to advance 3) F/U in 2-[address] RESIDENT Jan 22, 2024 19:23
[2024-01-23] VITALS (13 sets, daily range): BP systolic 94–185; BP diastolic 46–76; PULSE 52–67; RESP 16–20; TEMP 97.9–98.6; O2SAT 92–100
--- NOTE | 2024-01-23 12:40 | DVHPNRES ---
Progress Note Date Seen: Jan 23, 2024 Resident Creating Document: MAKENNA MARTINEZ RESIDENT Has the PT tested + for MRSA If YES, has PT been informed?: No Medical Necessity Reason Pt with a Central, PICC or Fol: Yes The following are medically ne: PICC Line, Carr Catheter Reason for carr catheter: Strict I&O Subjective Review of Systems A 68 y old female with PMHx of HTN, DM type 2, hypothyroidism, COPD, obesity, liver cirrhosis Home meds: atorvastatin, vit D, glipizide, inuslin aspart and glargine, levothyroxine, lisinoprl, pramipezole, pregabalin She came initially at [facility] on 11/16/2023 for AMS and DKA in this facility she was intubated and transfer to [facility]. Here, a CT scan of the abdomen showed CBD dilation and was sent to [facility] 11/26/2023 for ERCP, which didn't show any obstruction, Also a brain MRI was done showing mulitple old infracts. Patient was again transferred to [facility] 11/28/2023 extubated and On 12/03/2023 patient required reintubation, on 12/12/23: gastrostomy was done and 12/13/23 tracheostomy was done. Cultures: 12/08/23: sputum negative 12/08/23: urine negative 12/09/23: blood culture negative 5 days 12/14/23: urine negative 12/21/23: respiratory culture normal jordan Images: 01/08/24: abdomen US Cholelithiasis with thickened gallbladder wall and pericholecystic fluid. The common bile duct is also dilated. Although the ultrasound Mclain's sign is negative ultrasound findings suggest acute cholecystitis. 16.87 cm liver with findings suggesting steatosis. 12/10/23: Abdomen/ pelvis CT scan No acute findings in the abdomen or pelvis. Multifocal airspace disease. 11/21/23: MRI brain Signal abnormality in the bilateral cerebellum and right occipital lobe, as well as punctate foci in the right parietal lobe and centrum semiovale. Findings could represent regions of subacute ischemia due to embolic infarcts; however, underlying metastases or infection are not excluded 11/21/23: MRCP Distended gallbladder with mild pericholecystic edema and gallbladder wall thickening. No definite gallbladder stones or sludge are present. There is diffuse dilation of the extrahepatic common bile duct measuring up to 1.1 cm. There is no definite appreciable obstructing stone or mass. Small ampullary lesion or stone is not completely excluded. ERCP could be obtained to further evaluate if clinically indicated. 01/18/2024 HIDA scan negative for cholecystitis Patient is alert and oriented in person, place and time. Speaking sentences, answering all type of questions and working with physical therapy twice a day. Patient passes swallow evaluation 01/06/2024 and is currently tolerating pureed diet. Patient tolerated decannulation, GI on board for peg tube removal 2 days ago, possible DC tomorrow Objective vital signs Vital Sign Date Time Temp Pulse Resp B/P (MAP) Pulse Ox O2 Delivery O2 Flow Rate FiO2 01/23/24 08:57 98.0 64 20 165/69 (101) 96 98.0 01/23/24 05:58 Room Air 0.0 01/23/24 05:58 21 Total Intake and Output 01/22/24 01/22/24 01/23/24 15:00 23:00 07:00 Intake Total 700 ml Balance 700 ml medications Current Medications Medications Dose Ordered Sig/Leslie Route Start Time Stop Time Status Last Admin Dose Admin Insulin Glargine 15 units DAILY@1000 SC 12/24/23 13:30 01/23/24 08:41 15 UNITS Lorazepam 0.5 mg Q4H PRN IV 01/08/24 15:00 01/23/24 11:24 0.5 MG Albuterol 2.5 mg Q8HR NEB 01/08/24 22:00 01/23/24 05:58 2.5 MG Ipratropium [place]ph[place]ah 0.5 mg Q8HR NEB 01/08/24 22:00 01/23/24 05:58 0.5 MG Loperamide HCl 2 mg PRN PRN GT 01/08/24 17:15 Melatonin 5 mg HS PO 01/09/24 22:00 01/22/24 21:07 5 MG Levothyroxine Sodium 112 mcg QAM@0600 PO 01/09/24 06:00 01/23/24 06:08 112 MCG Hydralazine HCl 10 mg Q6HP PRN IV 01/13/24 02:30 01/13/24 02:42 10 MG Acetaminophen 325 mg Q6HP PRN PO 01/14/24 15:45 01/23/24 01:45 325 MG Diagnostic Test (Pha) 1 strip ACHS 01/15/24 11:30 01/23/24 11:22 1 STRIP Insulin Human Regular ACHS SC 01/15/24 11:30 01/23/24 11:23 6 UNITS Dextrose 50 ml UD PRN IV 01/15/24 10:45 Morphine Sulfate 4 mg Q2HPRN PRN IV 01/15/24 12:15 01/22/24 14:22 4 MG Pramipexole Dihydrochloride 0.5 mg HS PO 01/17/24 22:00 01/22/24 21:06 0.5 MG Pantoprazole Sodium 40 mg DAILY@0600 PO 01/19/24 06:00 01/23/24 06:08 40 MG Gabapentin 100 mg BID PO 01/19/24 10:00 01/23/24 08:40 100 MG Losartan Potassium 100 mg DAILY PO 01/19/24 10:00 01/23/24 08:40 100 MG Metoprolol Tartrate 37.5 mg BID PO 01/19/24 10:00 01/23/24 08:39 37.5 MG Acetaminophen/ Hydrocodone Bitart 1 tab Q8HPRN PRN PO 01/19/24 16:45 01/23/24 04:14 1 TAB Sertraline HCl 50 mg DAILY PO 01/21/24 10:00 01/23/24 08:40 50 MG Examination Alert HEENT: Normocephalic, atraumatic, moist mucous membranes, trach stoma successfully closing Respiratory/pulmonary: Bilateral lung sounds grossly clear, Cardiovascular: Regular heart sounds S1 and S2 with no associated murmurs. Abdomen: Abdomen nondistended, there is mild pain to palpation to the epigastric region, no palpable masses. PEG tube on place with no signs in infection at this time. Extremities: There are no peripheral edema at this time laboratory and microbiology Laboratory Tests 01/22/24 05:58 Test 01/22/24 05:58 Range/Units Serum Glucose 137 H 74-106 mg/dL Microbiology Date/Time Source Procedure Growth Status 12/21/23 09:42 Trachea Gram Stain - Final Complete 12/21/23 09:42 Respiratory Culture - Final Yeast, not Sapphire albicans Complete 12/14/23 19:42 Voided Urine Urine Culture - Final Complete 12/09/23 09:28 Blood Blood Culture - Final NO GROWTH AFTER 5 DAYS OF INCUBATION. 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 #Hypertensive heart disease on acute on chronic diastolic heart failure -Continue losartan 50mg QD -Continue metoprolol 25mg PO BID Respiratory #S/P tracheostomy (12/13/23) Pt was decannulated successfully Continue puree diet PT is reinforced #Acute hypoxic respiratory failure likely in the setting of aspiration pneumonia No antibiotics according to ID Swallow evaluation 01/06/2024: patient is tolerate puree and nectar Infectious disease #Sepsis likely due to aspiration pneumonia and UTI resolved -Completed antibiotic treatment #Acute cholecystitis ruled out Patient is poor candidate for elective procedures, no need of emergency procedures at the time HIDA scan no cholecystitis Endocrinology Type 2 diabetes mellitus, DKA : uncontrolled -Continue mild sliding scale insulin -Continue Lantus 15 units q.a.m. Hypothyroidism -Continue levothyroxine 112mcgQAM Hyponatremia NS 3% now 134 Gastroenterology #s/p g tube removal no bleeding, tolerating PO #Acute cholecystitis ruled out describe above #Hepatic steatosis #Dilated CBD #Acute transaminitis trending down Hematology Superficial thrombophlebitis of right cephalic and basilic veins -no need for anticoagulation NO SONOGRAPHIC EVIDENCE FOR DEEP VENOUS THROMBOSIS IN THE LEFT UPPER EXTREMITY VEINS. Nephrology YULIANA likely due to VMN resolving -Monitor kidney function Nutrition Continue puree diet dc tomorrow most likely Goals of care discussed with the patient for 25 min Plan discussed with Dr. Cobb Plan discussed with: Patient, Other (rn) Dietary Evaluation Review Comments: 1) If GI is accessible consider Glucerna 1.2 @ 55 ml/hr goal rate as tolerated 2) If pt remains NPO >7 days consider TPN to meet at least 75% of estimated needs 3) Advance pt diet when medically feasible to a CCHO 45g/Cardiac diet modified per HIGH SPEED PRINTER OPERATOR recommendations 4) Continue current plan of care Expected Outcomes/Goals: 1) Pt to receive nutrition support within 7 days of NPO status 2) Pt diet to advance 3) F/U in 2-3 days Date of Service: Jan 23, 2024 Billing Provider: REFUGIO COBB MD Common Visit Codes: [id number] INP/OBS CARE(MOD) MAKENNA MARTINEZ RESIDENT Jan 23, 2024 12:40 REFUGIO COBB MD Jan 24, 2024 21:33
[2024-01-23] MEDS: hydrALAZINE HCL 20 MG/ML VL IV ONE (19:04)
--- NOTE | 2024-01-23 19:04 | DVHPN2 ---
Consult Progress Note Date Seen: Jan 22, 2024 Subjective Patient reports: Feels better (no fever or chills) Objective vital signs Vital Sign Date Time Temp Pulse Resp B/P (MAP) Pulse Ox O2 Delivery O2 Flow Rate FiO2 01/23/24 18:13 169/96 01/23/24 17:00 98.6 63 20 98 98.6 01/23/24 13:44 Room Air* 0 21 Total Intake and Output 01/22/24 01/22/24 01/23/24 15:00 23:00 07:00 Intake Total 700 ml Balance 700 ml medications Current Medications Medications Dose Ordered Sig/Leslie Route Start Time Stop Time Status Last Admin Dose Admin Insulin Glargine 15 units DAILY@1000 SC 12/24/23 13:30 01/23/24 08:41 15 UNITS Lorazepam 0.5 mg Q4H PRN IV 01/08/24 15:00 01/23/24 16:04 0.5 MG Albuterol 2.5 mg Q8HR NEB 01/08/24 22:00 01/23/24 13:44 2.5 MG Ipratropium [place] 0.5 mg Q8HR NEB 01/08/24 22:00 01/23/24 13:44 0.5 MG Loperamide HCl 2 mg PRN PRN GT 01/08/24 17:15 Melatonin 5 mg HS PO 01/09/24 22:00 01/22/24 21:07 5 MG Levothyroxine Sodium 112 mcg QAM@0600 PO 01/09/24 06:00 01/23/24 06:08 112 MCG Hydralazine HCl 10 mg Q6HP PRN IV 01/13/24 02:30 01/23/24 18:13 10 MG Acetaminophen 325 mg Q6HP PRN PO 01/14/24 15:45 01/23/24 01:45 325 MG Diagnostic Test (Pha) 1 strip ACHS 01/15/24 11:30 01/23/24 11:22 1 STRIP Insulin Human Regular ACHS SC 01/15/24 11:30 01/23/24 11:23 6 UNITS Dextrose 50 ml UD PRN IV 01/15/24 10:45 Morphine Sulfate 4 mg Q2HPRN PRN IV 01/15/24 12:15 01/22/24 14:22 4 MG Pramipexole Dihydrochloride 0.5 mg HS PO 01/17/24 22:00 01/22/24 21:06 0.5 MG Pantoprazole Sodium 40 mg DAILY@0600 PO 01/19/24 06:00 01/23/24 06:08 40 MG Gabapentin 100 mg BID PO 01/19/24 10:00 01/23/24 08:40 100 MG Losartan Potassium 100 mg DAILY PO 01/19/24 10:00 01/23/24 08:40 100 MG Metoprolol Tartrate 37.5 mg BID PO 01/19/24 10:00 01/23/24 08:39 37.5 MG Acetaminophen/ Hydrocodone Bitart 1 tab Q8HPRN PRN PO 01/19/24 16:45 01/23/24 04:14 1 TAB Sertraline HCl 50 mg DAILY PO 01/21/24 10:00 01/23/24 08:40 50 MG PHYSICAL EXAM: - GENERAL: Alert and oriented x 3. No acute distress. Well-nourished. - EYES: EOMI. Anicteric. - HENT: Moist mucous membranes. No scleral icterus. No cervical lymphadenopathy. - LUNGS: Clear to auscultation bilaterally. No accessory muscle use. - CARDIOVASCULAR: Regular rate and rhythm. No murmur. No JVD. - ABDOMEN: Soft, non-tender and non-distended. No palpable masses. - EXTREMITIES: No edema. Non-tender.?SKIN: No rashes or lesions. Warm. - NEUROLOGIC: No focal neurological deficits. CN II-XII grossly intact, but not individually teste. - PSYCHIATRIC: Cooperative. Appropriate mood and affect. laboratory and microbiology Laboratory Tests 01/22/24 05:58 Test 01/22/24 05:58 Range/Units Serum Glucose 137 H 74-106 mg/dL Problem List/Assessment/Plan Problem List/Assessment/Plan Assessment/Plan Problems(with codes): (1) Hospital-acquired pneumonia (2) COPD (chronic obstructive pulmonary disease) (3) DKA (diabetic ketoacidosis) (4) HTN (hypertension) (5) Closed right hip fracture Plan/Recommendation ASSESSMENT AND PLAN: ID Problem List: - Aspiration pneumonia - Acute respiratory failure - Diabetic Ketoacidosis (DKA) - Sepsis due to UTI vs pneumonia - Acute Kidney Injury (YULIANA) - Hypernatremia - Transaminitis - Fatty liver - Uncontrolled diabetes (A1C of 11.7) - Hypothyroidism - Hypertension - COPD without exacerbation - Chronic kidney disease (CKD) Assessment: This is a 68-year-old female with a past medical history of diabetes, hypertension, recurrent DKA, hypothyroidism, obesity, COPD, neuropathies, mechanical falls, liver cirrhosis, and multiple joint replacements. The patient presented to the ED with acute loss of consciousness on 11/15/2023, subsequently diagnosed with DKA and an upper GI bleed. While at [facility], a CT and MRI of the head showed concerning lesions for metastasis vs. infectious process and gallbladder issues. Due to renal failure, these images were performed without contrast. An ERCP at [facility] showed no gallstones or common bile duct obstruction. Currently, the patient is reintubated on minimal sedation and receiving broad-spectrum antibiotics for presumed meningitis and other infections. 12/09: Patient has had a repeat abdomen, pelvis, chest Ct with contrast which shows no acute findings in the abdomen and pelvis. multifocal airspace in the lungs was shown. 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 12/12: sp trach 12/13: off sedation 12/19: trach 7l,elevated temps 12/23: Sputal culture is showing normal oral pharyngeal jordan, chest X-ray shows clear lungs, yesterdays X-rays show interstitial edema otherwise clear lungs. Recomend patient continue off antibiotics and just do aspiriations. If fever starts , cosider antibiotics for aspiration pnumonia , suspect Pneumonitis 12/26: Peg tube feeding were stopped , soft abdomen and having bowel movements. Chest X-ray shows mild pulmonary congestion. Otherwise patient is stable with no fevers 12/27: Peg tube is dry and intact. Restarted on [place]. Continues to work on physical therapy 12/29: now on 6 liters of drip , improving , recommend incentive spirometry, continue working with physical therapists and encouraged out of bed 01/02: Chest X-ray shows no significant changes, white count dropped to 1.8 and hemoglobin is 9.7 01/06: white count is up to 12.7 , potentially related to new diet 01/07: leukocytosis resolved 01/09: Lesli Medeiros has determined that patient is not surgical 01/11: feeding tube placed yesterday 01/12: Chest x-ray is clear , patient on room air, suspect leukocytosis was related to aspiration pneumonitis as opposed to full on pneumonia 01/13: MRCP in the past has shown distened bladder with mild perisystic edema and gallbladder thickening , abdominal untrasound shows gallstones with thicken gallbladder with pericolycystic fluid . YOLANDA results show normal left ventricle, size and dimension of 55%, valves without any significance, no evidence of intracardic masses or vegitations 01/17: patients trach tube is capped 01/19: scan has come back negative for acute colecystitis , GI plans to remove PEG tube tommorow Plan: - follow patient clinically off all antibiotics - continue off antibiotics unless fever starts up - sp 3 week vancomycin and ceftriaxone course, will monitor patient off all antibiotics - aspiration precautions - Blood cultures monitoring. - Monitor respiratory status and adjust ventilator settings as necessary. - Monitor and manage blood glucose levels. - Supportive care as needed. Plan discussed with: Patient Dietary Evaluation Review Comments: 1) If GI is accessible consider Glucerna 1.2 @ 55 ml/hr goal rate as tolerated 2) If pt remains NPO >7 days consider TPN to meet at least 75% of estimated needs 3) Advance pt diet when medically feasible to a CCHO 45g/Cardiac diet modified per [employer] recommendations 4) Continue current plan of care Expected Outcomes/Goals: 1) Pt to receive nutrition support within 7 days of NPO status 2) Pt diet to advance 3) F/U in 2-3 days NITHIN ANAYA MD Jan 23, 2024 19:04
--- NOTE | 2024-01-23 20:01 | DVHPN2 ---
Consult Progress Note Date Seen: Jan 23, 2024 Subjective Patient reports: Feels better (improved strength , is abulating with physical therapy, no complaints of pain ,tolerating diet ) Objective vital signs Vital Sign Date Time Temp Pulse Resp B/P (MAP) Pulse Ox O2 Delivery O2 Flow Rate FiO2 01/23/24 19:04 167/64 01/23/24 17:00 98.6 63 20 98 98.6 01/23/24 13:44 Room Air* 0 21 Total Intake and Output 01/22/24 01/22/24 01/23/24 15:00 23:00 07:00 Intake Total 700 ml Balance 700 ml medications Current Medications Medications Dose Ordered Sig/Leslie Route Start Time Stop Time Status Last Admin Dose Admin Insulin Glargine 15 units DAILY@1000 SC 12/24/23 13:30 01/23/24 08:41 15 UNITS Lorazepam 0.5 mg Q4H PRN IV 01/08/24 15:00 01/23/24 16:04 0.5 MG Albuterol 2.5 mg Q8HR NEB 01/08/24 22:00 01/23/24 13:44 2.5 MG Ipratropium [place] 0.5 mg Q8HR NEB 01/08/24 22:00 01/23/24 13:44 0.5 MG Loperamide HCl 2 mg PRN PRN GT 01/08/24 17:15 Melatonin 5 mg HS PO 01/09/24 22:00 01/22/24 21:07 5 MG Levothyroxine Sodium 112 mcg QAM@0600 PO 01/09/24 06:00 01/23/24 06:08 112 MCG Hydralazine HCl 10 mg Q6HP PRN IV 01/13/24 02:30 01/23/24 18:13 10 MG Acetaminophen 325 mg Q6HP PRN PO 01/14/24 15:45 01/23/24 01:45 325 MG Diagnostic Test (Pha) 1 strip ACHS 01/15/24 11:30 01/23/24 11:22 1 STRIP Insulin Human Regular ACHS SC 01/15/24 11:30 01/23/24 11:23 6 UNITS Dextrose 50 ml UD PRN IV 01/15/24 10:45 Morphine Sulfate 4 mg Q2HPRN PRN IV 01/15/24 12:15 01/22/24 14:22 4 MG Pramipexole Dihydrochloride 0.5 mg HS PO 01/17/24 22:00 01/22/24 21:06 0.5 MG Pantoprazole Sodium 40 mg DAILY@0600 PO 01/19/24 06:00 01/23/24 06:08 40 MG Gabapentin 100 mg BID PO 01/19/24 10:00 01/23/24 08:40 100 MG Losartan Potassium 100 mg DAILY PO 01/19/24 10:00 01/23/24 08:40 100 MG Metoprolol Tartrate 37.5 mg BID PO 01/19/24 10:00 01/23/24 08:39 37.5 MG Acetaminophen/ Hydrocodone Bitart 1 tab Q8HPRN PRN PO 01/19/24 16:45 01/23/24 19:05 1 TAB Sertraline HCl 50 mg DAILY PO 01/21/24 10:00 01/23/24 08:40 50 MG PHYSICAL EXAM: - GENERAL: Alert and oriented x 3. No acute distress. Well-nourished. - EYES: EOMI. Anicteric. - HENT: Moist mucous membranes. No scleral icterus. No cervical lymphadenopathy. - LUNGS: Clear to auscultation bilaterally. No accessory muscle use. - CARDIOVASCULAR: Regular rate and rhythm. No murmur. No JVD. - ABDOMEN: Soft, non-tender and non-distended. No palpable masses. - EXTREMITIES: No edema. Non-tender.?SKIN: No rashes or lesions. Warm. - NEUROLOGIC: No focal neurological deficits. CN II-XII grossly intact, but not individually teste. - PSYCHIATRIC: Cooperative. Appropriate mood and affect. laboratory and microbiology Laboratory Tests 01/22/24 05:58 Test 01/22/24 05:58 Range/Units Serum Glucose 137 H 74-106 mg/dL Problem List/Assessment/Plan Problems(with codes): (1) COPD (chronic obstructive pulmonary disease) (2) HTN (hypertension) (3) DKA (diabetic ketoacidosis) (4) Hospital-acquired pneumonia (5) Closed right hip fracture (6) Cholelithiasis and acute cholecystitis without obstruction (7) Elevated liver enzymes Problem List/Assessment/Plan Assessment/Plan Problems(with codes): (1) Hospital-acquired pneumonia (2) COPD (chronic obstructive pulmonary disease) (3) DKA (diabetic ketoacidosis) (4) HTN (hypertension) (5) Closed right hip fracture Plan/Recommendation ASSESSMENT AND PLAN: ID Problem List: - Aspiration pneumonia - Acute respiratory failure - Diabetic Ketoacidosis (DKA) - Sepsis due to UTI vs pneumonia - Acute Kidney Injury (YULIANA) - Hypernatremia - Transaminitis - Fatty liver - Uncontrolled diabetes (A1C of 11.7) - Hypothyroidism - Hypertension - COPD without exacerbation - Chronic kidney disease (CKD) Assessment: This is a 68-year-old female with a past medical history of diabetes, hypertension, recurrent DKA, hypothyroidism, obesity, COPD, neuropathies, mechanical falls, liver cirrhosis, and multiple joint replacements. The patient presented to the ED with acute loss of consciousness on 11/15/2023, subsequently diagnosed with DKA and an upper GI bleed. While at [facility], a CT and MRI of the head showed concerning lesions for metastasis vs. infectious process and gallbladder issues. Due to renal failure, these images were performed without contrast. An ERCP at [facility] showed no gallstones or common bile duct obstruction. Currently, the patient is reintubated on minimal sedation and receiving broad-spectrum antibiotics for presumed meningitis and other infections. 12/09: Patient has had a repeat abdomen, pelvis, chest Ct with contrast which shows no acute findings in the abdomen and pelvis. multifocal airspace in the lungs was shown. 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 12/12: sp trach 12/13: off sedation 12/19: trach 7l,elevated temps 12/23: Sputal culture is showing normal oral pharyngeal jordan, chest X-ray shows clear lungs, yesterdays X-rays show interstitial edema otherwise clear lungs. Recomend patient continue off antibiotics and just do aspiriations. If fever starts , cosider antibiotics for aspiration pnumonia , suspect Pneumonitis 12/26: Peg tube feeding were stopped , soft abdomen and having bowel movements. Chest X-ray shows mild pulmonary congestion. Otherwise patient is stable with no fevers 12/27: Peg tube is dry and intact. Restarted on [place]. Continues to work on physical therapy 12/29: now on 6 liters of drip , improving , recommend incentive spirometry, continue working with physical therapists and encouraged out of bed 01/02: Chest X-ray shows no significant changes, white count dropped to 1.8 and hemoglobin is 9.7 01/06: white count is up to 12.7 , potentially related to new diet 01/07: leukocytosis resolved 01/09: Lesli Medeiros has determined that patient is not surgical 01/11: feeding tube placed yesterday 01/12: Chest x-ray is clear , patient on room air, suspect leukocytosis was related to aspiration pneumonitis as opposed to full on pneumonia 01/13: MRCP in the past has shown distened bladder with mild perisystic edema and gallbladder thickening , abdominal untrasound shows gallstones with thicken gallbladder with pericolycystic fluid . YOLANDA results show normal left ventricle, size and dimension of 55%, valves without any significance, no evidence of intracardic masses or vegitations 01/17: patients trach tube is capped 01/19: scan has come back negative for acute colecystitis , GI plans to remove PEG tube tommorow Plan: - follow patient clinically off all antibiotics - continue off antibiotics unless fever starts up - sp 3 week vancomycin and ceftriaxone course, will monitor patient off all antibiotics - aspiration precautions - Blood cultures monitoring. - Monitor respiratory status and adjust ventilator settings as necessary. - Monitor and manage blood glucose levels. - Supportive care as needed. Plan discussed with: Other Dietary Evaluation Review Comments: 1) If GI is accessible consider Glucerna 1.2 @ 55 ml/hr goal rate as tolerated 2) If pt remains NPO >7 days consider TPN to meet at least 75% of estimated needs 3) Advance pt diet when medically feasible to a CCHO 45g/Cardiac diet modified per [employer] CON[employer]ATOR recommendations 4) Continue current plan of care Expected Outcomes/Goals: 1) Pt to receive nutrition support within 7 days of NPO status 2) Pt diet to advance 3) F/U in 2-3 days NITHIN ANAYA MD Jan 23, 2024 20:01
[2024-01-24] VITALS (11 sets, daily range): BP systolic 115–161; BP diastolic 57–72; PULSE 51–75; RESP 15–20; TEMP 98–98.4; O2SAT 96–100
[2024-01-24 07:11] LABS: Basophils # (auto) 0.1 10 ^3/uL (0-0.2); Eosinophils # (auto) 0.3 10 ^3/uL (0-0.8); Monocytes # (auto) 0.3 10 ^3/uL (0-1.3); Monocytes % (auto) 4.9 % (0.0-12.0); Nucleated Red Blood Cells % 0.1 %
[2024-01-24 07:15] LABS: Basophils % (auto) 1.3 % (0.0-2.0); Eosinophils % (auto) 5.7 % (0.0-7.0); Hematocrit 31.1 % (36.0-46.0); Hemoglobin 9.9 g/dL (12.2-16.2); Lymphocytes % (auto) 53.3 % (10.0-50.0); Mean Corpuscular Hemoglobin 27.2 pg (28.0-32.0); Mean Corpuscular Hgb Conc. 31.7 g/dL (32.0-36.0); Mean Corpuscular Volume 85.7 fL (80.0-100.0); Neutrophils # (auto) 1.9 10 ^3/uL (1.6-8.6); Neutrophils % (auto) 34.8 % (37.0-80.0); Platelet Count (auto) 598 10^3/uL (140-450); Red Blood Cells 3.63 10^6/uL (4.0-5.20); Red Cell Distribution Width 17.1 % (11.8-14.3); White Blood Cell 5.6 10^3/uL (4.4-10.8)
[2024-01-24 07:17] LABS: Alanine Aminotransferase 28 U/L (7-40); Albumin 3.6 g/dL (3.2-4.8); Alkaline Phosphatase 545 U/L (46-116); Anion Gap 7 (5-15); Aspartate Aminotransferase 19 U/L (13-40); BUN/Creatinine Ratio 11.4 (10.0-20.0); Blood Urea Nitrogen 10 mg/dL (9-23); Calcium 9.8 mg/dL (8.7-10.4); Carbon Dioxide 25 mmol/L (20-31); Chloride 101 mmol/L (98-107); Glucose 191 mg/dL (74-106); Potassium 4.5 mmol/L (3.5-5.1); Sodium 133 mmol/L (136-145)
[2024-01-24 07:18] LABS: Bilirubin, Total 0.2 mg/dL (0.2-1.0); Total Protein 6.6 g/dL (5.7-8.2)
[2024-01-24] MEDS ORDERED: LOSA-534 PO (11:14)
[2024-01-24] MEDS ORDERED: METO25TA36 PO (11:14)
[2024-01-24] MEDS ORDERED: HYDR1TAB97 PO (11:18)
[2024-01-24] MEDS ORDERED: SERT50TA PO (11:18)
--- NOTE | 2024-01-24 11:48 | DVHDSRES ---
Discharge Summary Date of Admission Resident Creating Document: MAKENNA MARTINEZ RESIDENT Dec 08, 2023 at 18:22 Date of Discharge: Jan 24, 2024 Admitting Diagnosis acute respiratory failure Labs/Diagnostic Data: Laboratory Results Test 01/24/24 06:14 01/24/24 06:00 01/17/24 05:43 01/13/24 06:36 POC Glucose 177 mg/dl (70-106) White Blood Count 5.6 10^3/uL (4.4-10.8) Red Blood Count 3.63 10^6/uL (4.0-5.20) Hemoglobin 9.9 g/dL (12.2-16.2) Hematocrit 31.1 % (36.0-46.0) Mean Corpuscular Volume 85.7 fL (80.0-100.0) Mean Corpuscular Hemoglobin 27.2 pg (28.0-32.0) Mean Corpuscular Hemoglobin Concent 31.7 g/dL (32.0-36.0) Red Cell Distribution Width 17.1 % (11.8-14.3) Platelet Count 598 10^3/uL (140-450) Mean Platelet Volume 7.9 fL (6.9-10.8) Neutrophils (%) (Auto) 34.8 % (37.0-80.0) Lymphocytes (%) (Auto) 53.3 % (10.0-50.0) Monocytes (%) (Auto) 4.9 % (0.0-12.0) Eosinophils (%) (Auto) 5.7 % (0.0-7.0) Basophils (%) (Auto) 1.3 % (0.0-2.0) Neutrophils # (Auto) 1.9 10 ^3/uL (1.6-8.6) Lymphocytes # (Auto) 3.0 10 ^3/uL (0.4-5.4) Monocytes # (Auto) 0.3 10 ^3/uL (0-1.3) Eosinophils # (Auto) 0.3 10 ^3/uL (0-0.8) Basophils # (Auto) 0.1 10 ^3/uL (0-0.2) Nucleated Red Blood Cells 0.1 % Sodium Level 133 mmol/L (136-145) Potassium Level 4.5 mmol/L (3.5-5.1) Chloride Level 101 mmol/L (98-107) Carbon Dioxide Level 25 mmol/L (20-31) Anion Gap 7 (5-15) Blood Urea Nitrogen 10 mg/dL (9-23) Creatinine 0.88 mg/dL (0.550-1.02) Glomerular Filtration Rate Calc 71 mL/min (>90) BUN/Creatinine Ratio 11.4 (10.0-20.0) Serum Glucose 191 mg/dL (74-106) Calcium Level 9.8 mg/dL (8.7-10.4) Total Bilirubin 0.2 mg/dL (0.2-1.0) Aspartate Amino Transferase (AST) 19 U/L (13-40) Alanine Aminotransferase (ALT) 28 U/L (7-40) Alkaline Phosphatase 545 U/L (46-116) Total Protein 6.6 g/dL (5.7-8.2) Albumin 3.6 g/dL (3.2-4.8) Iron Level 17 ug/dL (50-170) Total Iron Binding Capacity 265 ug/dL (250-425) Percent Iron Saturation 6.4 % (15-50) Ferritin 111.6 ng/mL (10-291) Hemoglobin A1c 7.0 % A1C (<5.7) Test 01/10/24 10:30 01/08/24 21:53 01/08/24 09:29 01/04/24 06:51 Prothrombin Time 10.9 sec (9.3-11.8) Prothrombin Time INR 1.03 (0.9-1.15) Activated Partial Thromboplast Time 31.4 SEC (24.5-34.5) Magnesium Level 1.8 mg/dL (1.6-2.6) Gamma Glutamyl Transpeptidase 370 U/L (<38) Triglycerides Level 144 mg/dL (< 150) Cholesterol Level 158 mg/dL (< 200) LDL Cholesterol 74 mg/dL (< 100) HDL Cholesterol 58 mg/dL (40-59) Lipase 23 U/L (12-53) Acetaminophen Level < 2.0 UG/ML (10.0-20.0) Hepatitis A IgM Antibody Negative Hepatitis B Surface Antigen Negative (Negative) Hepatitis B Core IgM Antibody Negative Hepatitis C Antibody Negative (Negative) Phosphorus Level 3.4 mg/dL (2.4-5.1) Free Thyroxine (T4) Calculated 0.83 ng/dL (0.89-1.76) Test 12/31/23 17:00 12/30/23 10:50 12/22/23 19:45 12/22/23 07:55 Vitamin B12 Level 1189 pg/mL (211-911) Vitamin D 25-Hydroxy 30.0 ng/mL (30.0-100) Differential Total Cells Counted 100.0 (100) Neutrophils % (Manual) 55 (37.0-80.0) Band Neutrophils % (Manual) 0 Lymphocytes % (Manual) 31 (10.0-50.0) Monocytes % (Manual) 6 (0-12) Eosinophils % (Manual) 7 (0-7) Basophils % (Manual) 0 (0.0-2.0) Metamyelocytes % (manual) 0 Myelocytes % (Manual) 0 Promyelocytes % (Manual) 0 Blast Cells % (Manual) 1 Reactive Lymphocytes 0 Platelet Estimate Adequate Free Triiodothyronine (T3) pg/mL 1.35 pg/mL (2.3-4.2) Blood Gas Specimen Type Arterial Blood Gas Sample Site Right radial Blood Gas Patient Temperature 37.0 Arterial Blood Date Drawn [id number] Arterial Blood pH 7.696 (7.350-7.450) Arterial Blood Partial Pressure CO2 18.4 mmHg (32.0-45.0) Arterial Blood Partial Pressure O2 51.2 mmHg (83.0-108.0) Arterial Blood HCO3 22.0 mmol/L (21.0-28.0) Arterial Blood Oxygen Saturation 90.7 % (94.0-98.0) Arterial Blood Base Excess 3.4 mmol/L (-2.0-3.0) Arterial Blood Oxyhemoglobin 90.3 % (94.0-98.0) Arterial Blood Carboxyhemoglobin 0.0 % (0.5-1.5) Arterial Blood Methemoglobin 0.4 % (0.0-1.5) Wallace Test Yes Blood Gas Total Hemoglobin 10.60 g/dL (12.0-16.0) Blood Gas Liter Flow 6.00 Blood Gas Modality Cool aerosol FiO2 % 28.0 Blood Gas Critical Value Read Back Yes Blood Gas Notified Whom jordana Brody Blood Gas Notified Time [id number] Blood Gas Notified By Executive Assistant To President stacey corrigan Test 12/20/23 11:30 12/19/23 07:29 12/18/23 04:56 12/17/23 06:58 Urine Osmolality 316 mOsm/kg Blood Gas Spontaneous Rate 24 Specimen Drawn By rohit rt Creatine Kinase 54 U/L (34-145) Blood Gas Set Respiration Rate 24.0 Blood Gas Tidal Volume 578.0 Blood Gas Spontaneous Tidal Volume 578 Blood Gas PEEP or CPAP 5.0 Bl Gas Inspiratory/Expiratory Ratio 1:2.0 Test 12/16/23 08:19 12/14/23 19:42 12/14/23 03:41 12/12/23 10:13 Random Vancomycin Level 17 ug/mL (20-30) Urine Color Light-yellow (Yellow) Urine Clarity Clear (Clear) Urine pH 6.0 (5.0-9.0) Urine Specific Elroy 1.009 (1.001-1.035) Urine Protein 1+ (Negative) Urine Ketones Negative (Negative) Urine Blood 2+ /uL (Negative) Urine Nitrite Negative (Negative) Urine Bilirubin Negative (Negative) Urine Urobilinogen Normal mg/dL (Negative) Urine Leukocyte Esterase 2+ /uL (Negative) Urine RBC 6 /hpf (0 - 4) Urine WBC 68 /hpf (0 - 5) Urine Squamous Epithelial Cells None seen /hpf (<5) Urine Bacteria Few /hpf (None Seen) Urine Glucose Normal mg/dL (Normal) Lactic Acid Level 0.8 mmol/L (0.4-2.0) Ammonia 20 umol/L (11-32) Reticulocyte Count (auto) 2.08 % (0.5-1.5) Haptoglobin 240 mg/dL (37-355) Lactate Dehydrogenase 233 U/L (120-246) Folic Acid 7.31 ng/mL (>5.38) Test 12/11/23 22:02 12/11/23 16:24 12/11/23 12:59 12/11/23 03:37 Urine Creatinine 21.88 mg/dL (30.0-125.0) Urine Protein/Creatinine Ratio 2.01 Urine Sodium 40 mmol/L (40-220) Urine Total Protein 43.9 mg/dL (0.0-11.9) Urine Opiates Screen Neg (NEGATIVE) Urine Fentanyl Screen Pos (NEGATIVE) Urine Barbiturates Screen Neg (NEGATIVE) Urine Phencyclidine Screen Neg (NEGATIVE) Urine Amphetamines Screen Neg (NEGATIVE) Urine Benzodiazepines Screen Pos (NEGATIVE) Urine Cocaine Screen Neg (NEGATIVE) Urine Cannabinoids Screen Neg (NEGATIVE) Parathyroid Hormone (Intact) 30.6 pg/mL (18.4-80.1) Vancomycin Level Trough 32.2 ug/mL (10-20) Anisocytosis (manual) Slight Microcytosis Slight Ovalocytes Few Test 12/10/23 16:03 12/10/23 04:53 12/09/23 14:45 12/09/23 14:30 Blastomyces Ab Immunodiffusion Negative (Neg:<1:1) Coccidioides Antibody (Comp Fix) <1:2 (<1:2) Cryptococcus Antibody Negative (Neg:<1:2) HIV (1&2) Antibody Negative (Negative) Aspergillus flavus Antibody Negative (Neg:<1:1) Aspergillus fumigatus Antibody Negative (Neg:<1:1) Aspergillus niger Antibody Negative (Neg:<1:1) Smudge Cells 1 /100 WBC Large Platelets Few Giant Platelets Few Stomatocytes Few B-Type Natriuretic Peptide 405.67 pg/mL (0-100) Influenza Type A Antigen Negative (Negative) Influenza Type B Antigen Negative (Negative) SARS-CoV-2 Antigen (Rapid) Negative (NEGATIVE) Test 12/09/23 09:46 12/09/23 09:28 12/09/23 06:57 12/08/23 19:00 Blood Gas Inspiratory Pressure 15.0 Thyroid Stimulating Hormone (TSH) 17.87 uIU/mL (0.55-4.78) Blood Gas Comments increased fio2 to 40 Urine WBC Clumps Present /hpf (None Seen) Other Laboratory Tests 01/24/24 06:00 Brief Hx & Hospital Course: A 68 y old female with PMHx of HTN, DM type 2, hypothyroidism, COPD, obesity, liver cirrhosis Home meds: atorvastatin, vit D, glipizide, inuslin aspart and glargine, levothyroxine, lisinoprl, pramipezole, pregabalin She came initially at [facility] on 11/16/2023 for AMS and DKA in this facility she was intubated and transfer to [facility]. Here, a CT scan of the abdomen showed CBD dilation and was sent to [facility] 11/26/2023 for ERCP, which didn't show any obstruction, Also a brain MRI was done showing mulitple old infracts. Patient was again transferred to [facility] 11/28/2023 extubated and On 12/03/2023 patient required reintubation, on 12/12/23: gastrostomy was done and 12/13/23 tracheostomy was done. Cultures: 12/08/23: sputum negative 12/08/23: urine negative 12/09/23: blood culture negative 5 days 12/14/23: urine negative 12/21/23: respiratory culture normal jordan Images: 01/08/24: abdomen US Cholelithiasis with thickened gallbladder wall and pericholecystic fluid. The common bile duct is also dilated. Although the ultrasound Mclain's sign is negative ultrasound findings suggest acute cholecystitis. 16.87 cm liver with findings suggesting steatosis. 12/10/23: Abdomen/ pelvis CT scan No acute findings in the abdomen or pelvis. Multifocal airspace disease. 11/21/23: MRI brain Signal abnormality in the bilateral cerebellum and right occipital lobe, as well as punctate foci in the right parietal lobe and centrum semiovale. Findings could represent regions of subacute ischemia due to embolic infarcts; however, underlying metastases or infection are not excluded 11/21/23: MRCP Distended gallbladder with mild pericholecystic edema and gallbladder wall thickening. No definite gallbladder stones or sludge are present. There is diffuse dilation of the extrahepatic common bile duct measuring up to 1.1 cm. There is no definite appreciable obstructing stone or mass. Small ampullary lesion or stone is not completely excluded. ERCP could be obtained to further evaluate if clinically indicated. 01/18/2024 HIDA scan negative for cholecystitis Patient is alert and oriented in person, place and time. Speaking sentences, answering all type of questions and working with physical therapy twice a day. Patient passes swallow evaluation 01/06/2024 and is currently tolerating pureed diet. Patient tolerated decannulation, GI on board for peg tube removal 3 days ago, patient will go home with his daughter, f/u with Dr Hernandez is advised in 7 days, also the need of cholecystectomy due to Cholelithiasis as outpatient time spent in discharge planning was 41 mins Consults/Reason for consult gi due to acute cholecystitis and peg tube surgery due to need of tracheostomy neurology f/u due to previous images in MRI Operations or Procedures Operative Report DATE OF PROCEDURE: 12/12/23 INDICATIONS FOR THE PROCEDURE: Respiratory failure encephalopathy malnutrition for feeding tube placement for nutrition PROCEDURE PERFORMED: 1. Esophagogastroduodenoscopy and percutaneous endoscopic gastrostomy POSTOPERATIVE DIAGNOSIS: Hiatal hernia Feeding tube placed in the stomach INFORMED CONSENT: The risks and benefits and alternatives were explained to the patient and informed consent was obtained. PROCEDURE IN DETAIL: The patient was kept NPO after midnight. In the icu room, patient is completely sedated and on ventilator. Olympus gastroscope was passed through the oropharynx into the stomach and the duodenum,and the findings are as follows Esophagus: Small Hiatal hernia No esophagitis no ulcers Stomach: Fundus: Retroflexed and visualized normal Body and antrum Erythematous streaks suggestive of gastritis Pylorus normal Duodenum Normal After the endoscopy was completed, scope was withdrawn into the stomach and at the point of maximum illumination, a Seldinger needle was introduced. The needle was withdrawn and through the cannula a guidewire was introduced and this was held by a snare passed through the biopsy channel and removed through the oropharynx Now over the guidewire the feeding tube was attached and introduced through the oropharynx and advanced with gentle pull on the wire from the anterior abdominal wall. Tube was observed endoscopically to be in position on the anterior gastric wall slightly below the GE junction and and anchored. Patient tolerated the procedure extremely well post op vital signs stable Endoscopic impression Hiatal hernia Respiratory failure and Malnutrition for which feeding tube placed Suggestions Watch closely for any complications will avoid anticoagulants for48 hours We will start slowly feedings very gently and advance feeding slowly as tolerated Her overall prognosis is very guarded with multiple problems Thank you for asking me to take part in the care of this pleasant patient Dr. Celis Patient: PJ FLORENTINO Acct: [id number] : 1955 Loc: [facility] Age/Sex: 68/F Room: [address] [place] [address] / Bed: A Attending Phy: DANELLE MENDIETA DATE OF SURGERY: 12/13/2023 PREOPERATIVE DIAGNOSIS: Ventilator-dependent respiratory failure. POSTOPERATIVE DIAGNOSIS: Ventilator-dependent respiratory failure. SURGEON: Brendon Chan MD HARD [employer]ALS HAND ENGRAVER: Corby Herrmann. ANESTHESIA: General endotracheal. ANESTHESIOLOGIST: Dr. Hardwick. PROCEDURE: Tracheostomy. DESCRIPTION OF PROCEDURE: Under general anesthesia with the patient's skin prepped and draped and infiltrated with 0.25% Marcaine with epinephrine, a vertical incision was made on the anterior surface of the neck through which the adipose tissue, strap muscles were and retracted laterally down onto the trachea. The trachea was exposed. The pretracheal fascia was incised. Hemostasis was meticulously accomplished. The thyroid gland was displaced superiorly. An incision was made between the third and fourth tracheal rings. This was dilated to a tracheotomy to accommodate a size #8 cuffed nonfenestrated tracheostomy tube, which was advanced through the tracheotomy as the anesthesiologist withdrew the endotracheal tube. Reaching the final position, the cuff of the tracheostomy was inflated with 6 mL of air. There was immediate recapture of carbon dioxide and return of normal gas exchanges. The tube was then secured with two 2-0 Prolene sutures and a circumferential umbilical tape. The patient remained in unchanged condition at the termination of procedure, left the operating room following an accurate needle and sponge count. An attempt at communicating with the patient's daughter was unsuccessful due to lack of answer on the phone number given. Brendon Chan MD PF TID: [id number] RECEIPT: [id number] DICTATED BY:BRENDON CHAN MD DICTATED DATE/TIME:12/13/23 0611 ELECTRONICALLY SIGNED BY:BRENDON CHAN MD 12/16/23 0543 ELECTRONICALLY CO-SIGNED BY: Operative Report DATE OF OPERATION: 01/21/24 PROCEDURE: Upper Endoscopy with removal of gastrostomy tube. PREOPERATIVE INDICATION: The patient is a 68 -year-old female undergoing endoscopy for removal of gastrostomy tube as the patient is now able to eat POSTOPERATIVE DIAGNOSES: 1. Percutaneous gastrostomy tube was removed endoscopically as per standard protocol 2. The rest of the endoscopic examination was unremarkable PROCEDURE PERFORMED BY: Chantal Brody GI NURSE: Jose SCOPE: Olympus videoendoscope. ASA CLASS: 3. PREOPERATIVE MEDICATIONS: Dr. Zakiya Bassett PROCEDURE IN DETAIL: After obtaining an informed consent, the patient was placed on left lateral decubitus position. The patient was then sedated with the above medications. A bite block was placed between her teeth. The endoscope was then passed through the oropharynx, into the esophagus, and through the stomach and pylorus up to the second and third part of the duodenum. The endoscope was then withdrawn. The 2nd and 3rd part of the duodenum and the duodenal bulb were normal. The pre-pyloric area and antrum showed minimal gastritis. On retroflexion the fundus and cardia were normal. The phalange of the gastrostomy tube was seen in the midbody of the stomach. This was removed per orally using a polypectomy snare after cutting it externally The gastrostomy site was dressed in a sterile fashion with tape The patient tolerated the procedure well without difficulty. COMPLICATIONS : None SPECIMENS: None DISPOSITION: Transfer back to the floor Stable PLAN: 1. Resume pureed diet and advance as tolerated 2. Outpatient follow up with GI Services as needed 3. Discharge planning as per hospitalist Exam: CT CT CHEST/AB/PL W CON- IV ONLY History: Sepsis unidentified source Comparison Study: None available at time of dictation. Technique: Multidetector spiral CT of the chest, abdomen and pelvis was performed from lower neck to pubic symphysis. Intravenous contrast was administered during this examination. Portal venous imaging was obtained. Axial, coronal and sagittal multiplanar reformats were performed by the technologist on a separate workstation. Radiation Dose : 1. Chest/Abdomen/Pelvis: CTDIvol 50.2 mGy, DLP 2578 mGy*cm. Findings: Lower neck: Endotracheal tube in satisfactory position. Left central venous catheter in satisfactory position. Lungs: Multifocal patchy bilateral airspace opacities with more focal consolidation in the lower lobes, [id number]. Heart/Vascular Structures: Cardiomegaly. Coronary artery calcifications. Vascular calcifications of the aorta. Lymph Nodes: No adenopathy Pleura: No pleural effusion or significant pneumothorax. Liver: The liver is normal in size. No focal lesions. Normal hepatic vascular enhancement. Gallbladder and Biliary Tree: Cholelithiasis noted without secondary findings of cholecystitis or biliary obstruction. Spleen: Unremarkable Pancreas: The pancreas is normal in appearance without focal lesions or abnormal enhancement. Adrenal Glands: Unremarkable Kidneys: Kidneys demonstrate normal symmetric enhancement without focal lesions, calculi or hydronephrosis. Bladder: Unremarkable Bowel: Enteric catheter in the stomach. Small bowel and colon are normal in caliber and distribution. The appendix is not visualized; however, no secondary findings of acute appendicitis identified. Rectal temperature probe in-situ. Ascites: Absent Lymphadenopathy: No mesenteric, retroperitoneal or periportal lymphadenopathy. Abdominal Wall and Mesentery: Unremarkable. Vasculature: The visualized abdominal aorta is normal in size and caliber. There is calcified atherosclerotic plaque involving the aorta and its branches. Abdominal and pelvic vessels demonstrate normal enhancement. Pelvic Organs: Unremarkable Musculoskeletal: No aggressive focal bony lesions, acute fractures or dislocation. Degenerative changes of the spine. Bilateral hip arthroplasty. IMPRESSION: No acute findings in the abdomen or pelvis. Multifocal airspace disease. Cardiomegaly. NM HIDA SCAN HISTORY: This is a gallstones. pain COMPARISON: 01/07 PROCEDURE: Following IV injection of 6.2 mCi Tc99m Choletec, serial images were obtained of the abdomen for 60 minutes. FINDINGS: There is normal visualization of the liver and bile ducts with activity reaching the small bowel within 60 minutes. There is activity in the gallbladder. On delayed images at 22 hours, there is no gallbladder activity and all activity in the bowel. IMPRESSION: Negative hepatobiliary study for cholecystitis. 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 : probably hypoxic encephalopathy #DKA resolved #Sepsis due to aspiration pneumonia and UTI resolved #Acute on chronic diastolic heart failure (HFpEF 55%) #Hypertensive heart disease on acute on chronic diastolic heart failure #S/P tracheostomy (12/13/23) #Acute hypoxic respiratory failure likely in the setting of aspiration pneumonia #Sepsis likely due to aspiration pneumonia and UTI resolved #Acute cholecystitis ruled out #Type 2 diabetes mellitus, DKA : uncontrolled Hypothyroidism Hyponatremia #s/p g tube removal #Hepatic steatosis #Dilated CBD #Acute transaminitis trending down Superficial thrombophlebitis of right cephalic and basilic veins YULIANA likely due to VMN resolving Discharge Disposition: Home with Health Services Discharge Instruct/Medications Diet: Consistent carbohydrate, Cardiac 2g Na,low cholest Activity: No Restrictions, As Tolerated Follow Up/Referral: fu with pcp in 1 wk Medications: resume home meds script to pharmacy Discharge Statement: "Patient was advised to return to the ER or call 911 if any headaches, dizziness, shortness of breath, chest pain, abdominal pain, bleeding, fevers, or worsening of medical condition. Patient was counseled about treatment plan, medications, possible side effects, patientverbalized understanding. All questions were answered to the best of my ability. This discharge took greater then 30 minutes in planning, reviewing documentation, counseling the patient, and discussing with other team members." ASSESSMENT ASSESSMENT Assessment resp failure Date of Service: Jan 24, 2024 Billing Provider: FREEDOM RAZO MD Common Visit Codes: 06889-FBQ/OBS DISCH DAY >30min MAKENNA MARTINEZ RESIDENT Jan 24, 2024 11:48 FREEDOM RAZO MD Jan 27, 2024 09:08
[2024-01-24] MEDS ORDERED: INSLANTI SC (13:34)
[2024-01-24] MEDS ORDERED: INSU100I49 SC (13:34)
== END 2024-01-24 15:00 | disposition home health service (06) | DRG 4 ==
LOC: ICU WEST 18:22 → DOU IN ICU 12-19 21:47 → TELE-CENTR 12-24 17:05
PROVIDERS: ADMIT Internal Medicine; ATTEND Internal Medicine
PROC: 5A1955Z Respiratory Ventilation, Greater than 96 Consecutive Hours (ICD-10-PCS; 2023-12-08)
PROC: 05HD33Z Insertion of Infusion Device into Right Cephalic Vein, Percutaneous Approach (ICD-10-PCS; 2023-12-08)
PROC: B54MZZA Ultrasonography of Right Upper Extremity Veins, Guidance (ICD-10-PCS; 2023-12-08)
PROC: 02HV33Z Insertion of Infusion Device into Superior Vena Cava, Percutaneous Approach (ICD-10-PCS; 2023-12-09)
PROC: B548ZZA Ultrasonography of Superior Vena Cava, Guidance (ICD-10-PCS; 2023-12-09)
PROC: B24BZZ4 Ultrasonography of Heart with Aorta, Transesophageal (ICD-10-PCS; 2023-12-10)
PROC: 30233N1 Transfusion of Nonautologous Red Blood Cells into Peripheral Vein, Percutaneous Approach (ICD-10-PCS; 2023-12-11)
PROC: 0DH63UZ Insertion of Feeding Device into Stomach, Percutaneous Approach (ICD-10-PCS; 2023-12-12)
PROC: 0B110F4 Bypass Trachea to Cutaneous with Tracheostomy Device, Open Approach (ICD-10-PCS; principal; 2023-12-13 07:45)
PROC: 0DP68UZ Removal of Feeding Device from Stomach, Via Natural or Artificial Opening Endoscopic (ICD-10-PCS; 2024-01-21)
DX: A41.9 Sepsis, unspecified organism (principal); N17.0 Acute kidney failure with tubular necrosis; E11.10 Type 2 diabetes mellitus with ketoacidosis without coma; G93.41 Metabolic encephalopathy; J69.0 Pneumonitis due to inhalation of food and vomit; S72.001A Fracture of unspecified part of neck of right femur, initial encounter for closed fracture; I50.33 Acute on chronic diastolic (congestive) heart failure; J96.01 Acute respiratory failure with hypoxia; G93.6 Cerebral edema; R65.21 Severe sepsis with septic shock; E87.0 Hyperosmolality and hypernatremia; N39.0 Urinary tract infection, site not specified; E46 Unspecified protein-calorie malnutrition; G72.81 Critical illness myopathy; G93.1 Anoxic brain damage, not elsewhere classified; I13.0 Hypertensive heart and chronic kidney disease with heart failure and stage 1 through stage 4 chronic kidney disease, or unspecified chronic kidney disease; I82.611 Acute embolism and thrombosis of superficial veins of right upper extremity; I82.623 Acute embolism and thrombosis of deep veins of upper extremity, bilateral; Z99.11 Dependence on respirator [ventilator] status; K80.00 Calculus of gallbladder with acute cholecystitis without obstruction; E87.1 Hypo-osmolality and hyponatremia; Z20.822 Contact with and (suspected) exposure to COVID-19; E03.9 Hypothyroidism, unspecified; E11.42 Type 2 diabetes mellitus with diabetic polyneuropathy; K74.60 Unspecified cirrhosis of liver; D64.9 Anemia, unspecified; E11.22 Type 2 diabetes mellitus with diabetic chronic kidney disease; E83.42 Hypomagnesemia; E87.6 Hypokalemia; E87.8 Other disorders of electrolyte and fluid balance, not elsewhere classified; I80.8 Phlebitis and thrombophlebitis of other sites; K44.9 Diaphragmatic hernia without obstruction or gangrene; K76.0 Fatty (change of) liver, not elsewhere classified; N18.9 Chronic kidney disease, unspecified; Y95 Nosocomial condition; T36.8X5A Adverse effect of other systemic antibiotics, initial encounter; G25.81 Restless legs syndrome; M13.88 Other specified arthritis, other site; K29.70 Gastritis, unspecified, without bleeding; Z79.01 Long term (current) use of anticoagulants; Z79.4 Long term (current) use of insulin; Z79.899 Other long term (current) drug therapy; Z86.73 Personal history of transient ischemic attack (TIA), and cerebral infarction without residual deficits; Z96.651 Presence of right artificial knee joint; Z96.641 Presence of right artificial hip joint; Z87.891 Personal history of nicotine dependence; Z83.3 Family history of diabetes mellitus; Z80.42 Family history of malignant neoplasm of prostate; Y92.89 Other specified places as the place of occurrence of the external cause; Z68.28 Body mass index [BMI] 28.0-28.9, adult
CPT/HCPCS: 36415; 36569; 36600; 70470; 71045; 71260; 74177; 76700; 76775; 78226; 80048; 80053; 80061; 80074; 80202; 80307; 80329; 81001; 82140; 82306; 82550; 82570; 82607; 82728; 82746; 82805; 82947; 82962; 82977; 83010; 83036; 83540; 83550; 83605; 83615; 83690; 83735; 83880; 83935; 83970; 84100; 84132; 84156; 84295; 84300; 84439; 84443; 84481; 85007; 85014; 85018; 85025; 85027; 85045; 85610; 85730; 86606; 86612; 86635; 86641; 86698; 86703; 86850; 86900; 86901; 86920; 87040; 87070; 87077; 87081; 87086; 87205; 87426; 87804; 92610; 93312; 93970; 93971; 94003; 94640; 94667; 97110; 97116; 97163; 97530; A4605; C1724; G0378; J0692; J1450; J1815; J1885; J2250; J2470; J2543; J2704; J3480; J3490; J7060

== ENCOUNTER 2024-01-26 07:12 | Emergency (ER) | payer OTHER ==
[~2024-01-26] VITALS: Ht 157.5 cm; Wt 50.0 kg
[~2024-01-26 07:12] MED LIST changes: +HYDR1TAB97 PO; +LOSA-534 PO; +METO25TA36 PO; +SERT50TA PO
[2024-01-26 07:49] VITALS: TEMP 99.8
[2024-01-26 07:51] VITALS: PULSE 89; RESP 14; O2SAT 98
--- NOTE | 2024-01-26 07:53 | ED.PDOC ---
History of present illness HPI Comments This is a 68-year-old female who comes to the ED by EMS with chief complain of hypoglycemia. Patient has a past medical history relevant for type 2 diabetes, hypertension, hyperlipidemia, hypothyroidism, peripheral neuropathy. Patient stated that yesterday night she started feeling more weak than usual, family members stated that she was disoriented, so they called EMS and they brought her to [facility], where they diagnosed her with hypoglycemia, they treated it on then she was sent to the [facility], her glucose level here was 420, patient states feeling better, denied any significant dizziness, lightheadedness, chest pain, shortness of breath, nausea, vomiting, abdominal pain. Patient was only complaining of bilateral leg pain, which stated that it is chronic and likely due to peripheral neuropathy. Chief Complaint: Hypoglycemia Time Seen by MD: 07:22 Primary Care Provider: Nazanin History of present illness: Nurses Notes Allergies: Coded Allergies: NO KNOWN ALLERGIES (Unverified , 10/26/12) Home Meds Active Scripts Insulin Aspart (Insulin Aspart) 100 Unit/Ml Inj, 100 UNIT SC TID for 30 Days, #5 INJ insulin per sliding scale qac tid 150-200: 2 units 201-250: 4 units 251-300: 8 units' 301-350: 12 units 351-400: 15 units >400 call doctor Prov:PHILIP CONNER RESIDENT 01/24/24 Insulin Glargine (Lantus) 100 Unit/Ml Inj, 15 UNITS SC DAILY@1000 for 30 Days, #5 INJ Once daily Prov:PHILIP CONNER RESIDENT 01/24/24 Hydrocodone-Acetaminophen (Hydrocodone/Acetaminophen 5-325 mg) 1 Tab Tab, 1 TAB PO BIDP PRN for 10 Days, #20 TAB Prov:FREEDOM RAZO MD 01/24/24 Sertraline Hcl (Zoloft) 50 Mg Tab, 50 MG PO DAILY for 30 Days, #30 TAB 2 Refills Prov:FREEDOM RAZO MD 01/24/24 Losartan Potassium (Losartan Potassium) 50 Mg Tab, 50 MG PO DAILY for 30 Days, #30 TAB 2 Refills Prov:FREEDOM RAZO MD 01/24/24 Metoprolol Succinate (Toprol Xl) 25 Mg Tab, 25 MG PO DAILY for 30 Days, #30 TAB 2 Refills Prov:FREEDOM RAZO MD 01/24/24 Glipizide (Glipizide) 10 Mg Tab, 1 TAB PO DAILY for 30 Days, #30 TAB 5 Refills Prov:MIRACLE SALGADO 10/12/23 Amoxicillin & Pot Clavulanate (Augmentin) 500 Mg Tab, 1 TAB PO BID for 10 Days, #20 TAB Prov:MIRACLE SALGADO 10/12/23 Cyanocobalamin (B-12) 1,000 Mcg Delbert, 1000 MCG PO DAILY for 30 Days, #30 DELBERT Prov:MIRACLE SALGADO 10/12/23 Ergocalciferol (VITAMIN D 40050 UNIT) 50,000 [place], [address] UNIT PO Q7D for 30 Days, #10 CAP Prov:MIRACLE SALGADO 10/12/23 Acetaminophen (Acetaminophen) 325 Mg Tab, 650 MG PO Q6HP PRN for 10 Days, #80 TAB Prov:MIRACLE SALGADO 10/12/23 Insulin Aspart (Insulin Aspart) 100 Unit/Ml Inj, 100 UNIT SC TIDWM for 30 Days, #1 INJ 4 Refills insulin per sliding scale qac tid 150-200: 2 units 201-250: 4 units 251-300: 8 units' 301-350: 12 units 351-400: 15 units >400 call doctor Prov:FREEDOM RAZO MD 05/26/23 Insulin Glargine (Lantus) 100 Unit/Ml Inj, 20 UNIT SC QPM for 30 Days, #1 INJ 3 Refills Prov:FREEDOM RAZO MD 05/26/23 Reported Medications Atorvastatin Calcium (ATORVASTATIN CALCIUM) 20 Mg Tab, 20 MG PO DAILY, TAB 10/08/23 Lisinopril (Lisinopril) 10 Mg Tab, 10 MG PO DAILY, MG 10/08/23 Pregabalin (Pregabalin) 150 Mg Cap, 150 MG PO BID, CAP 10/08/23 Pramipexole Dihydrochloride (Pramipexole Dihydrochlori) 0.75 Mg Tab, 0.75 MG PO TID, TAB 10/08/23 Levothyroxine Sodium (Levothyroxine Sodium) 150 Mcg Tab, 150 MCG PO QAM for 30 Days 08/12/17 Information Source: Patient Mode of Arrival: EMS Timing: Hours Duration: Since onset [place]: Shaky, Sweaty, Confusion History of: Diabetes, Insulin use Past Medical History PAST MEDICAL HISTORY: Arthritis, DM, HTN, Thyroid Surgical History: BTL, Tonsillectomy, Tubal Ligation Surgical History (Other): Tracheostomy Was removed four days ago, peg tube was also removed four days ago [employer]IOR [employer]LE 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: 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[employer]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 Family History Family History: Unknown Social History Smoker: Non-Smoker Alcohol: Rarely Drugs: Marijuana Lives In: Home Constitutional: denies: chills, diaphoresis, fatigue, fever, malaise, sweats, weakness, others EENTM: denies: blurred vision, double vision, ear bleeding, ear discharge, ear drainage, ear pain, ear ringing, eye pain, eye redness, hearing loss, mouth pain, mouth swelling, nasal discharge, nose bleeding, nose congestion, nose pain, photophobia, tearing, throat pain, throat swelling, voice changes, others Respiratory: denies: cough, hemoptysis, orthopnea, SOB at rest, shortness of breath, SOB with excertion, stridor, wheezing, others Cardiovascular: denies: chest pain, dizzy spells, diaphoresis, Dyspnea on exertion, edema, irregular heart beat, left arm pain, lightheadedness, palpitations, PND, syncope, others Gastrointestinal: denies: abdomen distended, abdominal pain, blood streaked bowels, constipated, diarrhea, dysphagia, difficulty swallowing, hematemesis, melena, nausea, poor appetite, poor fluid intake, rectal bleeding, rectal pain, vomiting, others Genitourinary: denies: abnormal vagina bleeding, burning, dyspareunia, dysuria, flank pain, frequency, hematuria, incontinence, pain, , vagina discharge, urgency, others Neurological: denies: dizziness, fainting, headache, left sided numbness, left sided weakness, numbness, paresthesia, pre-existing deficit, right sided numbness, right sided weakness, seizure, speech problems, tingling, tremors, weakness, others Musculoskeletal: denies: back pain, gout, joint pain, joint swelling, muscle pain, muscle stiffness, neck pain, others Integumetry: denies: bruises, change in color, change in hair/nails, dryness, laceration, lesions, lumps, rash, wounds, others Allergic/Immunocompromised: denies: Difficulty Healing, Frequent Infections, Hives, Itching, others Hematologic/Lymphatic: denies: anemia, blood clots, easy bleeding, easy bruising, swollen glands, others Endocrine: denies: excessive hunger, excessive sweating, excessive thirst, excessive urination, flushing, intolerance to cold, intolerance to heat, unexplained weight gain, unexplained weight loss, others Psychiatric: denies: anxiety, bipolar disorder, depression, hopeless, panic disorder, schizophrenia, sleepless, suicidal, others Physical Exam General Appearance: No Apparent Distress, Normal HEENT: Normal ENT Inspection, Pharynx Normal, TMs Normal Neck: Full Range of Motion, Non-Tender, Normal, Normal Inspection Respiratory: Chest Non-Tender, Lungs Clear, No Accessory Muscle Use, No Respiratory Distress, Normal Breath Sounds Cardiovascular: No Edema, No JVD, No Murmur, No Gallop, Normal Peripheral Pulses, Regular Rate/Rhythm Breast Exam: Deferred Gastrointestinal: No Organomegaly, Non Tender, No Pulsatile Mass, Normal Bowel Sounds, Soft Genitalia: Deferred Pelvic: Deferred Rectal: Deferred Extremities: No calf tenderness, Normal capillary refill, Normal inspection, Normal range of motion, Non-tender, No pedal edema Neurologic: Alert, professor of surgery II-XII nml as Tested, No Motor Deficits, Normal Affect, Normal Mood Cerebellar Function: NOT DONE Reflexes: NOT DONE Skin: Dry, Normal Color, Warm Lymphatic: No Adenopathy Was a procedure done? Was a procedure done?: No Differential Diagnosis (DM) Differential Diagnosis: Dehydration, DKA, Electrolyte Abnormality, Hyperglycemia, Hyperosmolar State, Hypoglycemia, UTI X-Ray, Labs, Meds, VS Vital Signs Date Time Temp Pulse Resp B/P (MAP) Pulse Ox O2 Delivery O2 Flow Rate FiO2 01/26/24 13:06 90 14 110/52 (71) 97 01/26/24 10:34 85 14 113/48 (69) 98 01/26/24 07:51 89 14 98 Room Air* 0 21 01/26/24 07:49 99.8 89 14 164/67 (99) 98 99.8 01/26/24 07:27 99.1 90 16 137/88 (104) 98 99.1 01/26/24 07:27 99.1 90 16 137/88 (104) 98 Lab Test 01/26/24 13:20 01/26/24 10:14 01/26/24 08:42 Range/Units Urine Color Pending Urine Clarity Pending Urine pH Pending Urine Specific [place] Pending Urine Protein Pending Urine Ketones Pending Urine Blood Pending Urine Nitrite Pending Urine Bilirubin Pending Urine Urobilinogen Pending Urine Leukocyte Esterase Pending Urine RBC Pending Urine WBC Pending Urine Squamous Epithelial Cells Pending Urine Bacteria Pending Urine Glucose Pending POC Glucose 380 H 70-106 mg/dl White Blood Count 6.8 4.4-10.8 10^3/uL Red Blood Count 3.46 L 4.0-5.20 10^6/uL Hemoglobin 9.2 L 12.2-16.2 g/dL Hematocrit 29.7 L 36.0-46.0 % Mean Corpuscular Volume 85.7 80.0-100.0 fL Mean Corpuscular Hemoglobin 26.5 L 28.0-32.0 pg Mean Corpuscular Hemoglobin Concent 30.9 L 32.0-36.0 g/dL Red Cell Distribution Width 17.0 H 11.8-14.3 % Platelet Count 576 H 140-450 10^3/uL Mean Platelet Volume 8.0 6.9-10.8 fL Neutrophils (%) (Auto) 67.7 37.0-80.0 % Lymphocytes (%) (Auto) 27.0 10.0-50.0 % Monocytes (%) (Auto) 3.9 0.0-12.0 % Eosinophils (%) (Auto) 1.0 0.0-7.0 % Basophils (%) (Auto) 0.4 0.0-2.0 % Neutrophils # (Auto) 4.6 1.6-8.6 10 ^3/uL Lymphocytes # (Auto) 1.8 0.4-5.4 10 ^3/uL Monocytes # (Auto) 0.3 0-1.3 10 ^3/uL Eosinophils # (Auto) 0.1 0-0.8 10 ^3/uL Basophils # (Auto) 0 0-0.2 10 ^3/uL Nucleated Red Blood Cells 0.0 % Sodium Level 132 L 136-145 mmol/L Potassium Level 4.2 3.5-5.1 mmol/L Chloride Level 102 98-107 mmol/L Carbon Dioxide Level 22 20-31 mmol/L Anion Gap 8 5-15 Blood Urea Nitrogen 13 9-23 mg/dL Creatinine 1.04 H 0.550-1.02 mg/dL Glomerular Filtration Rate Calc 58 >90 mL/min BUN/Creatinine Ratio 12.5 10.0-20.0 Serum Glucose 424 *H 74-106 mg/dL Calcium Level 9.0 8.7-10.4 mg/dL Current Medications Medications (Trade) Dose Ordered Sig/Leslie Route Start Time Stop Time Status Last Admin Sodium Chloride 1,000 ml @ 1,000 mls/hr Q1H ONCE IV 01/26/24 07:45 01/26/24 08:44 DC 01/26/24 08:08 Ketorolac Tromethamine (Toradol Injection) 30 mg ONCE ONCE IV 01/26/24 07:45 01/26/24 07:46 DC 01/26/24 08:08 Insulin Human Regular (InsuLIN R) 5 units ONCE ONCE IV 01/26/24 07:45 01/26/24 07:46 DC 01/26/24 08:08 Insulin Human Regular (InsuLIN R) 5 units ONCE ONCE IV 01/26/24 11:00 01/26/24 11:01 DC 01/26/24 11:13 Sodium Chloride 1,000 ml @ 1,000 mls/hr Q1H ONCE IV 01/26/24 11:00 01/26/24 11:59 DC 01/26/24 11:14 Ondansetron HCl (Zofran) 4 mg ONCE ONCE IV 01/26/24 11:15 01/26/24 11:16 DC 01/26/24 11:13 On my initial examination, patient was not in any apparent distress, she was only complain of leg pain, she was alert and oriented x4, we will order CBC, BMP, UA, chest x-ray, IV fluids and IV insulin 5 units. We will continue to reassess. On reassessment, patient stated feeling better clinically, CBC showed moderate anemia, BMP showed glucose of 350s, we gave another dose of IV insulin and one L of fluids, chest x-ray was normal, patient states feeling well, glucose then came down to 290, we will discharge patient home and was recommended to follow with her PCP within one week, she will continue taking her home medications, patient verbalized understanding and agreed with the plan Images Reviewed?: Images reviewed and evaluated by me Time of 1ST Reevaluation: 07:45 Reevaluation 1ST: Unchanged Time of 2ND Reevaluation: 11:00 Reevaluation 2ND: Improved Time of 3RD Reevaluation: 13:00 Reevaluation 3RD: Improved Patient Education/Counseling: Diagnosis, Treatment Family Education/Counseling: No Family Present Departure 1 Departure Time of Disposition: 13:36 Impression: Primary Impression: Hyperglycemia Additional Impressions: Hypovolemia Uncontrolled type 2 diabetes mellitus Hyperlipidemia Essential hypertension Disposition: 01 HOME / SELF CARE / HOMELESS Condition: Stable Critical Care Note Critical Care Time?: No Stability Stability form required: No Heart Score Heart Score: Heart Score Response (Comments) Value History N/A 0 EKG N/A 0 Age N/A 0 Risk Factors N/A 0 Troponin N/A 0 Total 0 NU GONZALEZ RESIDENT Jan 26, 2024 07:53
[2024-01-26] MEDS: SODIUM CHLORIDE 0.9% 1,000 ML IV ONE ×2 (08:08→11:14)
[2024-01-26] MEDS: InsuLIN REG 1unit/0.01ml Soln (100units/ml) IV ONE ×2 (08:08→11:13)
[2024-01-26] MEDS: KETOROLAC TROMETH 30 MG/ML 1ML VIAL IV ONE (08:08)
--- NOTE | 2024-01-26 08:08 | DVH ---
Procedure: XY CHEST PORTABLE 01/26/2024 07:48 AM Indication: sob. Comparison: XY CHEST XRAY 1 VIEW on DOS: 01/19/24, XY CHEST XRAY 1 VIEW on DOS: 01/13/24, XY CHEST XR AY 1 VIEW on DOS: 12/28/23 TECHNIQUE: XY CHEST PORTABLE FINDINGS: Medical devices: None. Cardiomediastinal: The heart is normal in size. Pulmonary vasculature is within normal limits. Lungs: No focal pulmonary opacity is seen. The costophrenic angles are clear. No pneumothorax. Bones/soft tissues: No acute abnormality is noted. IMPRESSION: 1. No acute cardiopulmonary disease.
[2024-01-26 09:03] LABS: Eosinophils # (auto) 0.1 10 ^3/uL (0-0.8); Hemoglobin 9.2 g/dL (12.2-16.2); White Blood Cell 6.8 10^3/uL (4.4-10.8)
[2024-01-26 09:07] LABS: Basophils # (auto) 0 10 ^3/uL (0-0.2); Basophils % (auto) 0.4 % (0.0-2.0); Hematocrit 29.7 % (36.0-46.0); Lymphocytes # (auto) 1.8 10 ^3/uL (0.4-5.4); Mean Corpuscular Hemoglobin 26.5 pg (28.0-32.0); Mean Corpuscular Hgb Conc. 30.9 g/dL (32.0-36.0); Mean Corpuscular Volume 85.7 fL (80.0-100.0); Monocytes # (auto) 0.3 10 ^3/uL (0-1.3); Monocytes % (auto) 3.9 % (0.0-12.0); Neutrophils # (auto) 4.6 10 ^3/uL (1.6-8.6); Neutrophils % (auto) 67.7 % (37.0-80.0); Platelet Count (auto) 576 10^3/uL (140-450); Red Blood Cells 3.46 10^6/uL (4.0-5.20)
[2024-01-26 09:16] LABS: Anion Gap 8 (5-15); Carbon Dioxide 22 mmol/L (20-31); Chloride 102 mmol/L (98-107); Potassium 4.2 mmol/L (3.5-5.1); Sodium 132 mmol/L (136-145)
[2024-01-26 09:22] LABS: BUN/Creatinine Ratio 12.5 (10.0-20.0); Blood Urea Nitrogen 13 mg/dL (9-23)
[2024-01-26 09:31] LABS: Glucose 424 mg/dL (74-106)
[2024-01-26] MEDS: ONDANSETRON HCL 4 MG/2 ML VIAL IV ONE (11:13)
[2024-01-26 13:06] VITALS: BP 110/52; PULSE 90; RESP 14; O2SAT 97
[2024-01-26 13:45] LABS: Urine Bacteria FEW /hpf (None Seen); Urine Blood Negative /uL (Negative); Urine Clarity Clear (Clear); Urine Color Light-Yellow (Yellow); Urine Protein, UAD Negative (Negative); Urine Urobilinogen Normal (Negative); Urine WBC 2 /hpf (0 - 5); Urine pH 6.5 (5.0-9.0)
== END 2024-01-26 14:54 | disposition home or self-care (01) ==
LOC: EDBD 07:12 → ER 07:15
DX: E11.65 Type 2 diabetes mellitus with hyperglycemia (principal); E86.1 Hypovolemia; I10 Essential (primary) hypertension; E78.5 Hyperlipidemia, unspecified; E03.9 Hypothyroidism, unspecified; M19.90 Unspecified osteoarthritis, unspecified site; Z79.899 Other long term (current) drug therapy; Z90.89 Acquired absence of other organs; Z98.51 Tubal ligation status
CPT/HCPCS: 36415; 71045; 80048; 81001; 82962; 85025; 96361; 96374; 96375; 96376; 99284; J1815; J1885; J2405; J7030

== ENCOUNTER 2024-02-23 22:14 | Inpatient (IN) | payer OTHER ==
[~2024-02-23] VITALS: Ht 160 cm; Wt 59.5 kg
[2024-02-24] VITALS (8 sets, daily range): BP systolic 122–165; BP diastolic 61–80; PULSE 60–93; RESP 13–18; TEMP 97.4–98.2; O2SAT 94–99
[2024-02-24] MEDS ORDERED: INSU100I28 SC (00:24)
[2024-02-24] MEDS ORDERED: METO25TA93 PO (00:24)
[2024-02-24] MEDS ORDERED: INSLISPI SC (00:24)
[2024-02-24] MEDS ORDERED: SERT-289 PO (00:24)
[2024-02-24] MEDS ORDERED: LEVO100T8 PO (00:24)
[2024-02-24] MEDS ORDERED: INSU100I69 SC (00:24)
[2024-02-24] MEDS ORDERED: TEMA15CA2 PO (00:29)
[2024-02-24] MEDS ORDERED: ASPI1TAB20 PO (00:38)
[2024-02-24] MEDS ORDERED: SUVO1TAB2 PO (00:42)
[2024-02-24] MEDS ORDERED: FER300LQ GT (00:43)
[2024-02-24] MEDS ORDERED: INSU100I70 SC (00:45)
[2024-02-24] MEDS ORDERED: INSLANTI SC (00:45)
--- NOTE | 2024-02-24 01:17 | DVHHPRES ---
History of Present Illness Resident Creating Document: KRISTEN HAN RESIDENT History of Present Illness Patient is 68 years old female with past medical history of hypertension, diabetes mellitus type 2, hypothyroidism, COPD, obesity, hepatic steatosis, cholelithiasis, Kidney disease, arthritis, congestive heart failure, neuropathy, suspected metastatic lesion in the brain of unclear etiology is a transfer from [facility] with a diagnosis of diabetic ketoacidosis with associated with type 2 diabetes mellitus, metabolic encephalopathy, acute respiratory failure. Patient was admitted at [facility] on 02/17/2024 with a complaint of vomiting, altered mental status, GCS 8 with a high blood sugar level. Patient was intubated and on mechanical ventilator. labs and chart were reviewed from provided documents from [facility]. Patient was hypotensive with tachycardia, with a altered mental status. on 02/17/2024 ABG revealed patient had pH 6.9, pCO2 15, bicarbonate 3.5. Troponin I was elevated, 339 blood sugar 1006, WBC 18.31, hemoglobin 10.1, sodium 127, potassium 4.8, Anion gap 31, serum creatinine 3.90, BUN 59, CXR revealed Minimal reticulation in the right lower lung lobe likely atelectasis or scaring, no consolidation. CAD brain revealed no acute intracranial hemorrhage or infarct, multiple hypodensity in bilateral cerebral hemisphere and bilateral posterior medical occipital lobe which likely represents subacute or chronic infarct. Metastasis disorder could not be ruled out. per [facility] note patient was admitted to the hospital with altered mental status and vomiting. Per EMS the patient's family noted that she was walking and talking normally when she had sudden episode of vomiting. Per EMS on the scene glucose level was high on the fingerstick and blood pressure was 110/55, heart rate 111. as per note from [facility]- on arrival the patient's EDC was 7, obtunded however maintained gap reflex, was normotensive tachycardic 110, initial lab workup revealed pH 6.6, bicarb 3, glucose greater than 1000, potassium 4.3, patient was to insulin drip was given 2 ampules of bicarb IV push. But after returning from CT head to rule out any intracranial hemorrhage patient became more obtunded with diminishedLegs. patient was intubated for airway protection on 02/18/2024 and extubated on 02/23/2024. Patient was seen today at bedside tonight. Patient denied any nausea/vomiting/chest pain/shortness of breaths/dysuria/abdominal pain/dizziness/vertigo. Initial lab workup revealed moderate anemia with a hemoglobin 9.1, elevated creatinine 1.62, HGB A1c 8.2, magnesium 1.7, transaminitis with AST 54, AST 41, alkaline phosphatase 274, elevated troponin 207, elevated BNP 590, elevated D-dimer 1.93. TSH 77.25, free T3 0.74, free T4 0.45. Patient recently was admitted at [facility] from 01/0901/24/2024. She came initially at [facility] on 11/16/2023 for AMS and DKA in this facility she was intubated and transfer to [facility]. Here, a CT scan of the abdomen showed CBD dilation and was sent to [facility] 11/26/2023 for ERCP, which didn't show any obstruction, Also a brain MRI was done showing mulitple old infracts. Patient was again transferred to [facility] 11/28/2023 extubated and On 12/03/2023 patient required reintubation, on 12/12/23: gastrostomy was done and 12/13/23 tracheostomy was done. ECHO on 11/18/2023 Normal left ventricular size and dimension. Normal left ventricular systolic function estimated ejection fraction 55%. There is a grade 1 diastolic dysfunction. Normal right ventricular size and dimension. Normal right ventricular systolic function. Mildly increased right ventricular systolic pressure 34 mm of mercury. Images: 01/08/24: abdomen US Cholelithiasis with thickened gallbladder wall and pericholecystic fluid. The common bile duct is also dilated. Although the ultrasound Mclain's sign is negative ultrasound findings suggest acute cholecystitis. 16.87 cm liver with findings suggesting steatosis. 12/10/23: Abdomen/ pelvis CT scan No acute findings in the abdomen or pelvis. Multifocal airspace disease. 11/21/23: MRI brain Signal abnormality in the bilateral cerebellum and right occipital lobe, as well as punctate foci in the right parietal lobe and centrum semiovale. Findings could represent regions of subacute ischemia due to embolic infarcts; however, underlying metastases or infection are not excluded 11/21/23: MRCP Distended gallbladder with mild pericholecystic edema and gallbladder wall thickening. No definite gallbladder stones or sludge are present. There is diffuse dilation of the extrahepatic common bile duct measuring up to 1.1 cm. There is no definite appreciable obstructing stone or mass. Small ampullary lesion or stone is not completely excluded. ERCP could be obtained to further evaluate if clinically indicated. 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 : probably hypoxic encephalopathy #DKA resolved #Sepsis due to aspiration pneumonia and UTI resolved #Acute on chronic diastolic heart failure (HFpEF 55%) #Hypertensive heart disease on acute on chronic diastolic heart failure #S/P tracheostomy (12/13/23) #Acute hypoxic respiratory failure likely in the setting of aspiration pneumonia #Sepsis likely due to aspiration pneumonia and UTI resolved #Acute cholecystitis ruled out #Type 2 diabetes mellitus, DKA : uncontrolled Hypothyroidism Hyponatremia #s/p g tube removal #Hepatic steatosis #Dilated CBD #Acute transaminitis trending down #Superficial thrombophlebitis of right cephalic and basilic veins Past Medical History hypertension, diabetes mellitus type 2, hypothyroidism, COPD, obesity, hepatic steatosis, Kidney disease, arthritis, congestive heart failure, neuropathy, suspected metastatic lesion in the brain of unclear etiology Past Surgical History 3 hip replacement, right knee replacement Family History Non contributory Past Social History Patient lives with 2 room mates. Quit smoking 2 years ago (40 pack year history ). Denies current tobacco, alcohol and other drug abuse Review of Systems Review of Systems Allergy-NKDA Patient was seen today at the bedside. Patient Cardiovascular- deny acute chest pain or shortness of breath or cough or palpitation Respiratory- denies cough or short of breath or wheezing Gastrointestinal- denies any rectal bleeding, nausea or vomiting Musculoskeletal-denies acute joint swelling or tenderness or redness Neurological- denies acute dysarthria, dysphagia, change in vision Psychiatry- denies depression or SI or HI Skin- denies acute rash or purpura Allergies: Coded Allergies: NO KNOWN ALLERGIES (Unverified , 10/26/12) Exam Vital Signs Vital Signs Date Time Temp Pulse Resp B/P (MAP) Pulse Ox O2 Delivery O2 Flow Rate FiO2 02/24/24 00:04 98.2 71 18 122/80 (94) 98 98.2 Exam General examination-, alert , oriented, conversive HEENT- [place]ER[place], no acute nasal discharge Cardiovascular- S1-S2 audible, rate and rhythm regular, no murmur Respiratory- CTAB, no wheeze or rhonchi Gastrointestinal-nontender, bowel sound+. Nondistended Musculoskeletal-no acute joint swelling or tenderness or redness# Lower extremity- no leg edema Neurological- cranial nerves intact, no acute dysarthria or dysphagia Psychiatry- denies depression or SI or HI Skin- fragile skin Assessment/Plan Assessment/Plan # diabetic ketoacidosis with, associated with type 2 diabetes mellitus # acute hypoxic respiratory failure # metabolic encephalopathy # septic shock # acute on chronic diastolic congestive heart failure # hypothyroidism # sepsis secondary to UTI # NSTEMI type 2 secondary to demand lead ischemia # transaminitis # normocytic normochromic anemia of chronic disease # hepatic steatosis # neuropathy # hyponatremia likely dilutional # hypertension # chronic pain syndrome # YULIANA on CKD likely due to VMN # arthritis -continue insulin sliding scale as prescribed -continue Lantus 12 units q.a.m. -continue aspirin 80 mg p.o. daily -continue atorvastatin 20 mg p.o. q.h.s. -continue ferrous sulfate liquid 300 mg daily -increased levothyroxine from 100 125 mcg p.o. q.a.m. -continue losartan 50 mg p.o. q.d. -continue metoprolol 25 mg p.o. daily -continue pantoprazole 40 mg IV daily -continue sertraline 50 mg p.o. daily -continue cephalexin 500 mg p.o. q.6h -continue fluconazole 200 mg p.o. daily -continue sertraline 50 mg p.o. daily -continue hydralazine 10 mg q.6h p.r.n. Goals of care/advance care planning; FULL CODE; discussed with the patient >15 minutes PUD prophylaxis: Pantoprazole DVT prophylaxis: Lovenox PCP-Romie Peterson Plan discussed with Dr. Honeycutt, nursing staff, patient Total time spent on patient evaluation, chart review, assessment and plan, discussion discussion >30 minutes Plan discussed with: Patient Plan discussed with: Patient, Other (RN) Date of Service: Feb 23, 2024 Billing Provider: RUBENS HONEYCUTT MD Common Visit Codes: 78586-NCPHURP INP/OBS CARE (HIGH) Secondary Visit Codes: 86869-[id number] CARE PLAN 30 MINUTES KRISTEN HAN RESIDENT Feb 24, 2024 01:17 RUBENS HONEYCUTT MD Feb 24, 2024 15:03
[2024-02-24] MEDS ORDERED: ONDANSETRON HCL 4 MG/2 ML VIAL IV PRN (01:30)
[2024-02-24] MEDS ORDERED: DEXTROSE (50%) 50ML SYRG IV PRN (01:30)
[2024-02-24] MEDS ORDERED: NITROGLYCERIN 0.4 MG SL TAB SL PRN (01:30)
[2024-02-24] MEDS ORDERED: DOCUSATE SOD 100 MG CAP PO PRN (01:30)
[2024-02-24] MEDS ORDERED: MORPHINE SULFATE INJ 2 MG/ml SYRG IV PRN (01:30)
[2024-02-24 02:28] LABS: Basophils # (auto) 0 10 ^3/uL (0-0.2); Eosinophils # (auto) 0.2 10 ^3/uL (0-0.8); Monocytes # (auto) 0.2 10 ^3/uL (0-1.3); Neutrophils # (auto) 2.4 10 ^3/uL (1.6-8.6); Nucleated Red Blood Cells % 0.1 %; White Blood Cell 4.9 10^3/uL (4.4-10.8)
[2024-02-24 02:30] LABS: Eosinophils % (auto) 3.5 % (0.0-7.0); Hematocrit 28.5 % (36.0-46.0); Hemoglobin 9.1 g/dL (12.2-16.2); Lymphocytes # (auto) 2.1 10 ^3/uL (0.4-5.4); Lymphocytes % (auto) 43.6 % (10.0-50.0); Mean Corpuscular Hemoglobin 26.6 pg (28.0-32.0); Mean Corpuscular Hgb Conc. 31.9 g/dL (32.0-36.0); Mean Corpuscular Volume 83.3 fL (80.0-100.0); Monocytes % (auto) 3.1 % (0.0-12.0); Neutrophils % (auto) 48.8 % (37.0-80.0); Platelet Count (auto) 282 10^3/uL (140-450); Red Blood Cells 3.42 10^6/uL (4.0-5.20)
[2024-02-24 02:40] LABS: Red Cell Distribution Width 20.1 % (11.8-14.3)
[2024-02-24 02:43] LABS: Albumin 3.2 g/dL (3.2-4.8); Anion Gap 11 (5-15); BUN/Creatinine Ratio 9.9 (10.0-20.0); Blood Urea Nitrogen 16 mg/dL (9-23); Carbon Dioxide 22 mmol/L (20-31); Magnesium 1.7 mg/dL (1.6-2.6); Sodium 140 mmol/L (136-145)
[2024-02-24 02:46] LABS: Alanine Aminotransferase 41 U/L (7-40); Alkaline Phosphatase 274 U/L (46-116); Aspartate Aminotransferase 54 U/L (13-40); Bilirubin, Total 0.3 mg/dL (0.2-1.0); Chloride 107 mmol/L (98-107); Glucose 203 mg/dL (74-106); Total Protein 4.9 g/dL (5.7-8.2)
[2024-02-24 03:05] LABS: Triglycerides 140 mg/dL (< 150)
[2024-02-24 03:06] LABS: LDL Cholesterol 71 mg/dL (< 100)
[2024-02-24 03:07] LABS: Cholesterol 135 mg/dL (< 200); HDL Cholesterol 45 mg/dL (40-59)
[2024-02-24 03:36] LABS: Folate (Folic Acid) 4.25 ng/mL (>5.38)
[2024-02-24] MEDS: MAGNESIUM SULFATE 1GM/100ML 100 ML IV ONE (04:16)
[2024-02-24] MEDS: MORPHINE SULFATE INJ 2 MG/ml SYRG IV PRN (04:17)
[2024-02-24 04:24] LABS: Free T3 0.74 pg/mL (2.3-4.2); Free T4 (Free Thyroxine) 0.45 ng/dL (0.89-1.76)
[2024-02-24] MEDS: PRAMIPEXOLE DIHYDROCHLORIDE MO 0.25 MG TAB PO SCH (05:36)
[2024-02-24] MEDS: SODIUM CHLOR 0.9% PF (SALINE LOCK) 10ML VIAL/SYR IV SCH (05:36)
[2024-02-24] MEDS: CEPHALEXIN 250 MG CAP PO SCH (05:39)
[2024-02-24] MEDS: hydrALAZINE HCL 20 MG/ML VL IV ONE (05:42)
[2024-02-24] MEDS: InsuLIN REG 1unit/0.01ml Soln (100units/ml) SC SCH (06:10)
[2024-02-24] MEDS: INSULIN LANTUS (GLARGINE) 1 /0.01ml (100units/ml) SC SCH (06:11)
[2024-02-24] MEDS: ACCU-CHEK COMFORT CURVE STRIP VI SCH (06:11)
[2024-02-24] MEDS ORDERED: ACCU-CHEK COMFORT CURVE STRIP VI SCH (07:00)
[2024-02-24] MEDS ORDERED: InsuLIN REG 1unit/0.01ml Soln (100units/ml) SC SCH ×2 (07:00→22:00)
--- NOTE | 2024-02-24 09:20 | DVH ---
CHEST RADIOGRAPH Indication: rule out PNA/Fluid over Technique: Single frontal view of the chest was obtained COMPARISON: XY CHEST PORTABLE on DOS: 01/26/24, XY CHEST XRAY 1 VIEW on DOS: 01/19/24, XY CHEST XRAY 1 VIEW on DOS: 01/13/24 FINDINGS: Lines and Tubes: None Lungs: Mild diffuse increased interstitial prominence. Pleura: No effusion. No pneumothorax. Cardiomediastinal contours: Unremarkable Bones: Unremarkable IMPRESSION: Mild pulmonary vascular congestion.
[2024-02-24] MEDS: FERROUS SULFATE 300 MG/5 ML ORAL LIQ GT SCH (10:00)
[2024-02-24] MEDS ORDERED: SERTRALINE HCL 50 MG TAB PO SCH (10:00)
[2024-02-24] MEDS ORDERED: ENOXAPARIN SOD 40 MG/0.4 ML SYRINGE SC SCH (10:00)
[2024-02-24] MEDS ORDERED: LEVOTHYROXINE SODIUM 100 MCG TAB PO SCH (10:00)
[2024-02-24] MEDS: LEVOTHYROXINE SODIUM 100 MCG/5 ML INJ IV ONE ×2 (11:14→17:30)
[2024-02-24] MEDS: SERTRALINE HCL 50 MG TAB PO SCH (11:14)
[2024-02-24] MEDS: METOPROLOL SUCCINATE XL 50 MG TAB PO SCH (11:15)
[2024-02-24] MEDS: PANTOPRAZOLE 40 MG/10 ML VIAL INJ IV SCH (11:15)
[2024-02-24] MEDS: LOSARTAN POTASSIUM 50 MG TAB PO SCH (11:16)
[2024-02-24] MEDS: FLUCONAZOLE 100 MG TAB PO SCH (11:16)
[2024-02-24] MEDS: ATORVASTATIN 20 MG TAB PO SCH (11:17)
[2024-02-24] MEDS: LEVOTHYROXINE SODIUM 100 MCG TAB PO SCH (11:17)
[2024-02-24] MEDS: ASPirin-EC 81 mg tab PO SCH (11:17)
[2024-02-24] MEDS: ENOXAPARIN SOD 30 MG/0.3 ML SYRINGE SC SCH (11:19)
[2024-02-24] MEDS: ERGOCALCIFEROL 50,000 UNIT(1.25MG) CAP PO SCH (11:27)
--- NOTE | 2024-02-24 18:46 | DVH ---
EXAM: US BI LAT UPPER DVT Clinical History: dvt Comparison: US LT UPPER DVT on DOS: 01/03/24, US BI LAT UPPER DVT on DOS: 12/20/23, US BILAT LOWER DVT on DOS: 12/09/23 Technique: Duplex Doppler evaluation of the deep venous systems of both upper extremities from the internal jugu lar to the ulnar veins including color Doppler and spectral/pulsed waveform analysis was performed. Findings: Normal compressibility and color Doppler flow is seen in the bilateral upper extremity veins includin g the internal jugular, subclavian, axillary, brachial, radial and ulnar veins. Left superficial cephalic vein not visualized. Impression: 1. No sonographic evidence for bilateral upper extremity DVT.
--- NOTE | 2024-02-24 18:50 | DVH ---
EXAM: US BILAT LOWER DVT Clinical History: dvt Comparison: US LT UPPER DVT on DOS: 01/03/24, US BI LAT UPPER DVT on DOS: 12/20/23, US BILAT LOWER DVT on DOS: 12/09/23 Technique: Duplex Doppler evaluation of the deep venous systems of both lower extremities from the common femora l veins to the popliteal veins including color Doppler and spectral/pulsed waveform analysis was perf ormed. Findings: Incompressibility of the right common femoral and saphenous veins. No visible intraluminal venous thrombus. No evidence of incompressibility or abnormal color or spectr al Doppler flow visualized in the remaining deep bilateral lower extremity veins. Proximal greater sa phenous veins are grossly unremarkable. Impression: 1. Nonocclusive deep venous thrombosis in the right common femoral and saphenous veins. Critical Result: DVT Findings discussed with Nickie OROSCO at 02/24/2024 06:48 PM, and acknowledged receipt and understandi ng of the findings.
[2024-02-25] VITALS (8 sets, daily range): BP systolic 139–181; BP diastolic 52–79; PULSE 52–68; RESP 16–18; TEMP 97.3–98.3; O2SAT 94–99
[2024-02-25] MEDS: hydrALAZINE HCL 20 MG/ML VL IV PRN (00:13)
[2024-02-25 10:17] LABS: Basophils # (auto) 0 10 ^3/uL (0-0.2); Basophils % (auto) 0.8 % (0.0-2.0); Eosinophils # (auto) 0.2 10 ^3/uL (0-0.8); Eosinophils % (auto) 4.6 % (0.0-7.0); Hematocrit 27.7 % (36.0-46.0); Hemoglobin 8.7 g/dL (12.2-16.2); Lymphocytes # (auto) 1.7 10 ^3/uL (0.4-5.4); Lymphocytes % (auto) 41.9 % (10.0-50.0); Mean Corpuscular Hemoglobin 26.3 pg (28.0-32.0); Mean Corpuscular Hgb Conc. 31.3 g/dL (32.0-36.0); Mean Corpuscular Volume 84.1 fL (80.0-100.0); Monocytes # (auto) 0.2 10 ^3/uL (0-1.3); Monocytes % (auto) 5.5 % (0.0-12.0); Neutrophils # (auto) 1.9 10 ^3/uL (1.6-8.6); Neutrophils % (auto) 47.2 % (37.0-80.0); Nucleated Red Blood Cells % 0.1 %; Platelet Count (auto) 304 10^3/uL (140-450); Red Blood Cells 3.29 10^6/uL (4.0-5.20); Red Cell Distribution Width 20.8 % (11.8-14.3); White Blood Cell 4.1 10^3/uL (4.4-10.8)
[2024-02-25 10:30] LABS: Anion Gap 7 (5-15); BUN/Creatinine Ratio 6.8 (10.0-20.0); Blood Urea Nitrogen 10 mg/dL (9-23); Calcium 8.7 mg/dL (8.7-10.4); Carbon Dioxide 24 mmol/L (20-31); Chloride 107 mmol/L (98-107); Potassium 3.7 mmol/L (3.5-5.1); Sodium 138 mmol/L (136-145)
[2024-02-25 11:04] LABS: Alanine Aminotransferase 45 U/L (7-40); Albumin 2.9 g/dL (3.2-4.8); Alkaline Phosphatase 267 U/L (46-116); Aspartate Aminotransferase 107 U/L (13-40); Bilirubin, Total 0.2 mg/dL (0.2-1.0); Glucose 140 mg/dL (74-106); Total Protein 4.9 g/dL (5.7-8.2)
[2024-02-25] MEDS: LEVOTHYROXINE SODIUM 100 MCG/5 ML INJ IV SCH (11:11)
--- NOTE | 2024-02-25 17:39 | DVHPN2 ---
Subjective Seen and examined at bedside, possible DC tomorrow. Changes from previous H/P or p: No Changes Objective Vitals Vital Signs Date Time Temp Pulse Resp B/P (MAP) Pulse Ox O2 Delivery O2 Flow Rate FiO2 02/25/24 17:00 98.0 52 16 163/62 (95) 99 98.0 02/24/24 20:00 Room Air* 0 21 Intake/Output Intake and Output 02/25/24 07:00 Intake Total 1080 ml Output Total 1 ml Balance 1079 ml Intake Oral 1080 ml Output Stool Total 1 ml # Voids 7 # Bowel Movements 1 Exam Gen: in bed NAD Cvs: N S1/S2, RRR Resp: BLAE Abd: Soft, NT, BS+ Pmo Analyst: AAO x 4 Medications Current Medications Medications Dose Ordered Sig/Leslie Route Start Time Stop Time Status Last Admin Dose Admin Sodium Chloride 10 ml Q8HR IV 02/24/24 06:00 02/25/24 14:15 10 ML Ondansetron HCl 4 mg Q4HP PRN IV 02/24/24 01:30 Docusate Sodium 100 mg BIDPRN PRN PO 02/24/24 01:30 Acetaminophen 650 mg Q6HP PRN PO 02/24/24 01:30 Morphine Sulfate 2 mg Q4HPRN PRN IV 02/24/24 01:30 02/25/24 11:17 2 MG Nitroglycerin 0.4 mg Q5MINP PRN SL 02/24/24 01:30 Morphine Sulfate 2 mg Q30M PRN IV 02/24/24 01:30 Pantoprazole Sodium 40 mg DAILY IV 02/24/24 10:00 02/25/24 11:11 40 MG Diagnostic Test (Pha) 1 strip ACHS 02/24/24 07:00 02/25/24 17:15 1 STRIP Insulin Human Regular ACHS SC 02/24/24 07:00 02/25/24 12:39 2 UNITS Dextrose 50 ml UD PRN IV 02/24/24 02:00 Insulin Glargine 12 units QAM SC 02/24/24 07:00 02/24/24 06:11 12 UNITS Aspirin 81 mg DAILY PO 02/24/24 10:00 02/25/24 11:14 81 MG Atorvastatin Calcium 20 mg DAILY PO 02/24/24 10:00 02/25/24 11:14 20 MG Ergocalciferol 50,000 unit Q7D PO 02/24/24 10:00 02/24/24 11:27 50,000 UNIT Ferrous Sulfate 300 mg DAILY GT 02/24/24 10:00 Losartan Potassium 50 mg DAILY PO 02/24/24 10:00 02/25/24 11:14 50 MG Metoprolol Succinate 25 mg DAILY PO 02/24/24 10:00 02/25/24 11:12 25 MG Sertraline HCl 50 mg DAILY PO 02/24/24 10:00 Pramipexole Dihydrochloride 0.75 mg TID PO 02/24/24 06:00 02/25/24 14:24 0.75 MG Cephalexin 500 mg Q6HR PO 02/24/24 06:00 02/25/24 12:35 500 MG Fluconazole 200 mg DAILY PO 02/24/24 10:00 02/25/24 11:15 200 MG Levothyroxine Sodium 100 mcg DAILY IV 02/25/24 10:00 02/25/24 11:11 100 MCG Hydralazine HCl 10 mg Q6HP PRN IV 02/25/24 00:00 Apixaban 5 mg BID PO 02/25/24 22:00 UNV Laboratory Results Laboratory Tests 02/25/24 10:05 Chemistry Test 02/25/24 10:05 Albumin 2.9 g/dL (3.2-4.8) L Calcium Level 8.7 mg/dL (8.7-10.4) Total Protein 4.9 g/dL (5.7-8.2) L LFT Test 02/25/24 10:05 Alanine Aminotransferase (ALT) 45 U/L (7-40) H Alkaline Phosphatase 267 U/L (46-116) H Aspartate Amino Transferase (AST) 107 U/L (13-40) H Total Bilirubin 0.2 mg/dL (0.2-1.0) Microbiology Microbiology Date/Time Source Procedure Growth Status 02/24/24 03:40 Nose MRSA Screen - Final Complete Assessment/Plan Assessment/Plan # diabetic ketoacidosis with, associated with type 2 diabetes mellitus # acute hypoxic respiratory failure # metabolic encephalopathy # septic shock # acute on chronic diastolic congestive heart failure # uncontrolled hypothyroidism # sepsis secondary to UTI # NSTEMI type 2 secondary to demand lead ischemia # transaminitis- if further elevation in LFTs, DC Lipitor # normocytic normochromic anemia of chronic disease # hepatic steatosis # neuropathy # hyponatremia likely dilutional # hypertension # chronic pain syndrome # YULIANA on CKD likely due to VMN # arthritis -continue insulin sliding scale as prescribed -continue Lantus 12 units q.a.m. -continue aspirin 80 mg p.o. daily -continue atorvastatin 20 mg p.o. q.h.s. -continue ferrous sulfate liquid 300 mg daily -increased levothyroxine from 100 125 mcg p.o. q.a.m. -continue losartan 50 mg p.o. q.d. -continue metoprolol 25 mg p.o. daily -continue pantoprazole 40 mg IV daily -continue sertraline 50 mg p.o. daily -continue cephalexin 500 mg p.o. q.6h -continue fluconazole 200 mg p.o. daily -continue sertraline 50 mg p.o. daily -continue hydralazine 50mg q12 Plan discussed with: Patient My Orders Orders - RUBENS BAIN MD Procedure Category Date Status Time Dietary NOTICE 02/25/24 Transmitted Recommendations 14:17 Apixaban (Eliquis) PHA 02/25/24 Logged 22:00 Comprehensive LAB 02/26/24 Verified Metabolic Panel 04:00 Magnesium LAB 02/26/24 Verified 04:00 Hydralazine Hcl PHA 02/25/24 Transmitted Tablet (Apresoline 22:00 Oob To Chair JUAN 02/25/24 Transmitted 17:36 Date of Service: Feb 25, 2024 Billing Provider: RUBENS BAIN MD Common Visit Codes: [id number] INP/OBS CARE(HIGH) RUBENS BAIN MD Feb 25, 2024 17:39
[2024-02-25] MEDS: APIXABAN 5 MG TAB PO SCH (21:40)
[2024-02-25] MEDS: hydrALAZINE HCL 25 MG TAB PO SCH (21:40)
[2024-02-26] VITALS (7 sets, daily range): BP systolic 115–154; BP diastolic 55–62; PULSE 53–68; RESP 16–20; TEMP 97.6–98.4; O2SAT 95–100
[2024-02-26 13:55] LABS: Albumin 3.2 g/dL (3.2-4.8); Anion Gap 8 (5-15); BUN/Creatinine Ratio 7.2 (10.0-20.0); Bilirubin, Total 0.2 mg/dL (0.2-1.0); Blood Urea Nitrogen 10 mg/dL (9-23); Carbon Dioxide 24 mmol/L (20-31); Chloride 105 mmol/L (98-107); Glucose 84 mg/dL (74-106); Magnesium 1.7 mg/dL (1.6-2.6); Sodium 137 mmol/L (136-145)
[2024-02-26 13:56] LABS: Alanine Aminotransferase 57 U/L (7-40); Alkaline Phosphatase 283 U/L (46-116); Aspartate Aminotransferase 151 U/L (13-40); Potassium 3.2 mmol/L (3.5-5.1); Total Protein 5.3 g/dL (5.7-8.2)
--- NOTE | 2024-02-26 18:20 | DVHPN2 ---
Subjective in bed resting hypoglycemia to low 50s Changes from previous H/P or p: No Changes Objective Vitals Vital Signs Date Time Temp Pulse Resp B/P (MAP) Pulse Ox O2 Delivery O2 Flow Rate FiO2 02/26/24 12:40 98.0 58 17 115/58 (77) 100 98.0 02/26/24 08:00 Room Air* 0 21 Intake/Output Intake and Output 02/26/24 05:00 Intake Total 868 ml Balance 868 ml Intake Oral 868 ml # Voids 3 # Bowel Movements 4 General Appearance: Alert, Oriented X3 HEENT: Atraumatic Lungs: Clear to auscultation Medications Current Medications Medications Dose Ordered Sig/Leslie Route Start Time Stop Time Status Last Admin Dose Admin Sodium Chloride 10 ml Q8HR IV 02/24/24 06:00 02/26/24 16:03 10 ML Ondansetron HCl 4 mg Q4HP PRN IV 02/24/24 01:30 Docusate Sodium 100 mg BIDPRN PRN PO 02/24/24 01:30 Acetaminophen 650 mg Q6HP PRN PO 02/24/24 01:30 Morphine Sulfate 2 mg Q4HPRN PRN IV 02/24/24 01:30 02/26/24 09:41 2 MG Nitroglycerin 0.4 mg Q5MINP PRN SL 02/24/24 01:30 Morphine Sulfate 2 mg Q30M PRN IV 02/24/24 01:30 Pantoprazole Sodium 40 mg DAILY IV 02/24/24 10:00 02/26/24 09:35 40 MG Diagnostic Test (Pha) 1 strip ACHS 02/24/24 07:00 02/26/24 17:52 1 STRIP Insulin Human Regular ACHS SC 02/24/24 07:00 02/26/24 05:57 2 UNITS Dextrose 50 ml UD PRN IV 02/24/24 02:00 Insulin Glargine 12 units QAM SC 02/24/24 07:00 02/26/24 05:58 12 UNITS Aspirin 81 mg DAILY PO 02/24/24 10:00 02/26/24 09:37 81 MG Atorvastatin Calcium 20 mg DAILY PO 02/24/24 10:00 02/26/24 09:36 20 MG Ergocalciferol 50,000 unit Q7D PO 02/24/24 10:00 02/24/24 11:27 50,000 UNIT Ferrous Sulfate 300 mg DAILY GT 02/24/24 10:00 Losartan Potassium 50 mg DAILY PO 02/24/24 10:00 02/26/24 09:39 50 MG Metoprolol Succinate 25 mg DAILY PO 02/24/24 10:00 02/26/24 09:38 25 MG Sertraline HCl 50 mg DAILY PO 02/24/24 10:00 02/26/24 09:37 50 MG Pramipexole Dihydrochloride 0.75 mg TID PO 02/24/24 06:00 02/26/24 15:43 0.75 MG Cephalexin 500 mg Q6HR PO 02/24/24 06:00 02/26/24 17:52 500 MG Fluconazole 200 mg DAILY PO 02/24/24 10:00 02/26/24 09:36 200 MG Levothyroxine Sodium 100 mcg DAILY IV 02/25/24 10:00 02/26/24 09:35 100 MCG Apixaban 5 mg BID PO 02/25/24 22:00 02/26/24 09:36 5 MG Hydralazine HCl 50 mg Q12HR PO 02/25/24 22:00 02/26/24 09:38 50 MG Laboratory Results Laboratory Tests 02/25/24 10:05 02/26/24 13:16 Chemistry Test 02/26/24 13:16 Albumin 3.2 g/dL (3.2-4.8) Calcium Level 9.0 mg/dL (8.7-10.4) Magnesium Level 1.7 mg/dL (1.6-2.6) Total Protein 5.3 g/dL (5.7-8.2) L LFT Test 02/26/24 13:16 Alanine Aminotransferase (ALT) 57 U/L (7-40) H Alkaline Phosphatase 283 U/L (46-116) H Aspartate Amino Transferase (AST) 151 U/L (13-40) H Total Bilirubin 0.2 mg/dL (0.2-1.0) Microbiology Microbiology Date/Time Source Procedure Growth Status 02/24/24 03:40 Nose MRSA Screen - Final Complete Assessment/Plan Assessment/Plan # diabetic ketoacidosis with, associated with type 2 diabetes mellitus # acute hypoxic respiratory failure # metabolic encephalopathy # septic shock # acute on chronic diastolic congestive heart failure # uncontrolled hypothyroidism # sepsis secondary to UTI # NSTEMI type 2 secondary to demand lead ischemia # transaminitis- if further elevation in LFTs, DC Lipitor # normocytic normochromic anemia of chronic disease # hepatic steatosis # neuropathy # hyponatremia likely dilutional # hypertension # chronic pain syndrome # YULIANA on CKD likely due to VMN # arthritis -continue insulin sliding scale as prescribed -continue Lantus 12 units q.a.m. -continue aspirin 80 mg p.o. daily -continue atorvastatin 20 mg p.o. q.h.s. -continue ferrous sulfate liquid 300 mg daily -increased levothyroxine from 100 125 mcg p.o. q.a.m. -continue losartan 50 mg p.o. q.d. -continue metoprolol 25 mg p.o. daily -continue pantoprazole 40 mg IV daily -continue sertraline 50 mg p.o. daily -continue cephalexin 500 mg p.o. q.6h -continue fluconazole 200 mg p.o. daily -continue sertraline 50 mg p.o. daily -continue hydralazine 50mg q12 Plan discussed with: Patient Date of Service: Feb 26, 2024 Billing Provider: RAYMOND WHITLOCK MD Common Visit Codes: [id number] INP/OBS CARE(HIGH) RAYMOND WHITLOCK MD Feb 26, 2024 18:20
[2024-02-27] VITALS (7 sets, daily range): BP systolic 110–174; BP diastolic 56–77; PULSE 54–60; RESP 16–18; TEMP 97.7–98.5; O2SAT 95–99
[2024-02-27] MEDS: FERROUS SULFATE 300 MG/5 ML ORAL LIQ PO SCH (11:00)
--- NOTE | 2024-02-27 21:23 | DVHPN2 ---
Subjective in bed resting hypoglycemia to low 50s Changes from previous H/P or p: No Changes Objective Vitals Vital Signs Date Time Temp Pulse Resp B/P (MAP) Pulse Ox O2 Delivery O2 Flow Rate FiO2 02/27/24 20:51 55 18 124/67 02/27/24 13:00 98.5 95 98.5 02/27/24 08:30 Room Air* 0 21 Intake/Output Intake and Output 02/27/24 05:00 Intake Total 912 ml Output Total 400 ml Balance 512 ml Intake Oral 912 ml Output Urine Total 400 ml # Voids 4 # Bowel Movements 4 General Appearance: Alert, Oriented X3 HEENT: Atraumatic Lungs: Clear to auscultation Medications Current Medications Medications Dose Ordered Sig/Leslie Route Start Time Stop Time Status Last Admin Dose Admin Sodium Chloride 10 ml Q8HR IV 02/24/24 06:00 02/27/24 15:16 10 ML Ondansetron HCl 4 mg Q4HP PRN IV 02/24/24 01:30 Docusate Sodium 100 mg BIDPRN PRN PO 02/24/24 01:30 Acetaminophen 650 mg Q6HP PRN PO 02/24/24 01:30 Morphine Sulfate 2 mg Q4HPRN PRN IV 02/24/24 01:30 02/27/24 20:51 2 MG Nitroglycerin 0.4 mg Q5MINP PRN SL 02/24/24 01:30 Morphine Sulfate 2 mg Q30M PRN IV 02/24/24 01:30 Pantoprazole Sodium 40 mg DAILY IV 02/24/24 10:00 02/27/24 09:03 40 MG Diagnostic Test (Pha) 1 strip ACHS 02/24/24 07:00 02/27/24 17:28 1 STRIP Insulin Human Regular ACHS SC 02/24/24 07:00 02/26/24 05:57 2 UNITS Dextrose 50 ml UD PRN IV 02/24/24 02:00 Insulin Glargine 12 units QAM SC 02/24/24 07:00 02/26/24 05:58 12 UNITS Aspirin 81 mg DAILY PO 02/24/24 10:00 02/27/24 09:05 81 MG Ergocalciferol 50,000 unit Q7D PO 02/24/24 10:00 02/24/24 11:27 50,000 UNIT Losartan Potassium 50 mg DAILY PO 02/24/24 10:00 02/27/24 09:05 50 MG Metoprolol Succinate 25 mg DAILY PO 02/24/24 10:00 02/27/24 09:04 25 MG Sertraline HCl 50 mg DAILY PO 02/24/24 10:00 02/27/24 09:04 50 MG Pramipexole Dihydrochloride 0.75 mg TID PO 02/24/24 06:00 02/26/24 15:43 0.75 MG Cephalexin 500 mg Q6HR PO 02/24/24 06:00 02/27/24 18:04 500 MG Fluconazole 200 mg DAILY PO 02/24/24 10:00 02/27/24 09:05 200 MG Levothyroxine Sodium 100 mcg DAILY IV 02/25/24 10:00 02/27/24 09:03 100 MCG Apixaban 5 mg BID PO 02/25/24 22:00 02/27/24 09:05 5 MG Hydralazine HCl 50 mg Q12HR PO 02/25/24 22:00 02/27/24 09:19 50 MG Ferrous Sulfate 300 mg DAILY PO 02/27/24 10:00 02/27/24 11:00 300 MG Atorvastatin Calcium 20 mg HS PO 02/27/24 22:00 Laboratory Results Laboratory Tests 02/25/24 10:05 02/26/24 13:16 Microbiology Microbiology Date/Time Source Procedure Growth Status 02/24/24 03:40 Nose MRSA Screen - Final Complete Assessment/Plan Assessment/Plan # diabetic ketoacidosis with, associated with type 2 diabetes mellitus # acute hypoxic respiratory failure # metabolic encephalopathy # septic shock # acute on chronic diastolic congestive heart failure # uncontrolled hypothyroidism # sepsis secondary to UTI # NSTEMI type 2 secondary to demand lead ischemia # transaminitis- if further elevation in LFTs, DC Lipitor # normocytic normochromic anemia of chronic disease # hepatic steatosis # neuropathy # hyponatremia likely dilutional # hypertension # chronic pain syndrome # YULIANA on CKD likely due to VMN # arthritis -continue insulin sliding scale as prescribed -continue Lantus 12 units q.a.m. -continue aspirin 80 mg p.o. daily -continue atorvastatin 20 mg p.o. q.h.s. -continue ferrous sulfate liquid 300 mg daily -increased levothyroxine from 100 125 mcg p.o. q.a.m. -continue losartan 50 mg p.o. q.d. -continue metoprolol 25 mg p.o. daily -continue pantoprazole 40 mg IV daily -continue sertraline 50 mg p.o. daily -continue cephalexin 500 mg p.o. q.6h -continue fluconazole 200 mg p.o. daily -continue sertraline 50 mg p.o. daily -continue hydralazine 50mg q12 Plan discussed with: Patient Date of Service: Feb 27, 2024 Billing Provider: RAYMOND WHITLOCK MD Common Visit Codes: [id number] INP/OBS CARE(HIGH) RAYMOND WHITLOCK MD Feb 27, 2024 21:23
[2024-02-27] MEDS: ATORVASTATIN 20 MG TAB PO SCH (22:30)
[2024-02-28] VITALS (9 sets, daily range): BP systolic 89–148; BP diastolic 49–74; PULSE 54–64; RESP 16–18; TEMP 97.9–98.4; O2SAT 95–99
[2024-02-28 11:17] LABS: Chloride 104 mmol/L (98-107); Potassium 3.7 mmol/L (3.5-5.1)
[2024-02-28 11:18] LABS: Anion Gap 6 (5-15); Carbon Dioxide 25 mmol/L (20-31)
[2024-02-28 11:19] LABS: Calcium 8.7 mg/dL (8.7-10.4)
[2024-02-28 11:24] LABS: BUN/Creatinine Ratio 4.3 (10.0-20.0)
[2024-02-28 11:26] LABS: Blood Urea Nitrogen 6 mg/dL (9-23); Glucose 121 mg/dL (74-106); Sodium 135 mmol/L (136-145)
--- NOTE | 2024-02-28 15:33 | DVHPN2 ---
Subjective in bed resting no further hypoglycemia since yesterday Changes from previous H/P or p: No Changes Objective Vitals Vital Signs Date Time Temp Pulse Resp B/P (MAP) Pulse Ox O2 Delivery O2 Flow Rate FiO2 02/28/24 12:58 98.2 61 16 125/50 (75) 95 98.2 02/28/24 08:19 Room Air* 0 21 Intake/Output Intake and Output 02/28/24 05:00 Intake Total 860 ml Balance 860 ml Intake Oral 860 ml # Voids 2 # Bowel Movements 1 General Appearance: Alert, Oriented X3 HEENT: Atraumatic Lungs: Clear to auscultation Medications Current Medications Medications Dose Ordered Sig/Leslie Route Start Time Stop Time Status Last Admin Dose Admin Sodium Chloride 10 ml Q8HR IV 02/24/24 06:00 02/28/24 13:22 10 ML Ondansetron HCl 4 mg Q4HP PRN IV 02/24/24 01:30 Docusate Sodium 100 mg BIDPRN PRN PO 02/24/24 01:30 Acetaminophen 650 mg Q6HP PRN PO 02/24/24 01:30 Morphine Sulfate 2 mg Q4HPRN PRN IV 02/24/24 01:30 02/28/24 06:43 2 MG Nitroglycerin 0.4 mg Q5MINP PRN SL 02/24/24 01:30 Morphine Sulfate 2 mg Q30M PRN IV 02/24/24 01:30 Pantoprazole Sodium 40 mg DAILY IV 02/24/24 10:00 02/28/24 09:05 40 MG Diagnostic Test (Pha) 1 strip ACHS 02/24/24 07:00 02/28/24 11:18 1 STRIP Insulin Human Regular ACHS SC 02/24/24 07:00 02/26/24 05:57 2 UNITS Dextrose 50 ml UD PRN IV 02/24/24 02:00 Insulin Glargine 12 units QAM SC 02/24/24 07:00 02/28/24 06:20 12 UNITS Aspirin 81 mg DAILY PO 02/24/24 10:00 02/28/24 09:06 81 MG Ergocalciferol 50,000 unit Q7D PO 02/24/24 10:00 02/24/24 11:27 50,000 UNIT Losartan Potassium 50 mg DAILY PO 02/24/24 10:00 02/28/24 09:07 50 MG Metoprolol Succinate 25 mg DAILY PO 02/24/24 10:00 02/28/24 09:07 25 MG Sertraline HCl 50 mg DAILY PO 02/24/24 10:00 02/28/24 09:06 50 MG Pramipexole Dihydrochloride 0.75 mg TID PO 02/24/24 06:00 02/28/24 13:20 0.75 MG Cephalexin 500 mg Q6HR PO 02/24/24 06:00 02/28/24 11:26 500 MG Fluconazole 200 mg DAILY PO 02/24/24 10:00 02/28/24 09:06 200 MG Levothyroxine Sodium 100 mcg DAILY IV 02/25/24 10:00 02/28/24 09:05 100 MCG Apixaban 5 mg BID PO 02/25/24 22:00 02/28/24 09:06 5 MG Hydralazine HCl 50 mg Q12HR PO 02/25/24 22:00 02/28/24 09:06 50 MG Ferrous Sulfate 300 mg DAILY PO 02/27/24 10:00 02/28/24 09:04 300 MG Atorvastatin Calcium 20 mg HS PO 02/27/24 22:00 02/27/24 22:30 20 MG Laboratory Results Laboratory Tests 02/25/24 10:05 02/28/24 10:40 Chemistry Test 02/28/24 10:40 Calcium Level 8.7 mg/dL (8.7-10.4) Microbiology Microbiology Date/Time Source Procedure Growth Status 02/24/24 03:40 Nose MRSA Screen - Final Complete Assessment/Plan Assessment/Plan # diabetic ketoacidosis with, associated with type 2 diabetes mellitus # acute hypoxic respiratory failure # metabolic encephalopathy # septic shock # acute on chronic diastolic congestive heart failure # uncontrolled hypothyroidism # sepsis secondary to UTI # NSTEMI type 2 secondary to demand lead ischemia # transaminitis- if further elevation in LFTs, DC Lipitor # normocytic normochromic anemia of chronic disease # hepatic steatosis # neuropathy # hyponatremia likely dilutional # hypertension # chronic pain syndrome # 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
[2024-02-28] MEDS: DEXTROSE (50%) 50ML SYRG IV PRN (21:15)
[2024-02-29] VITALS (8 sets, daily range): BP systolic 132–162; BP diastolic 50–65; PULSE 54–75; RESP 17–20; TEMP 97.9–98.2; O2SAT 95–98
--- NOTE | 2024-02-29 18:29 | DVHPN2 ---
Subjective in bed resting no further hypoglycemia since yesterday Changes from previous H/P or p: No Changes Objective Vitals Vital Signs Date Time Temp Pulse Resp B/P (MAP) Pulse Ox O2 Delivery O2 Flow Rate FiO2 02/29/24 16:55 58 18 148/65 02/29/24 16:16 98.2 96 98.2 02/29/24 07:40 Room Air* 0 21 Intake/Output Intake and Output 02/29/24 05:00 Intake Total 1190 ml Balance 1190 ml Intake Oral 1190 ml # Voids 6 # Bowel Movements 1 General Appearance: Alert, Oriented X3 HEENT: Atraumatic Lungs: Clear to auscultation Medications Current Medications Medications Dose Ordered Sig/Lesile Route Start Time Stop Time Status Last Admin Dose Admin Sodium Chloride 10 ml Q8HR IV 02/24/24 06:00 02/29/24 14:06 10 ML Ondansetron HCl 4 mg Q4HP PRN IV 02/24/24 01:30 Docusate Sodium 100 mg BIDPRN PRN PO 02/24/24 01:30 Acetaminophen 650 mg Q6HP PRN PO 02/24/24 01:30 Morphine Sulfate 2 mg Q4HPRN PRN IV 02/24/24 01:30 02/29/24 16:55 2 MG Nitroglycerin 0.4 mg Q5MINP PRN SL 02/24/24 01:30 Morphine Sulfate 2 mg Q30M PRN IV 02/24/24 01:30 Pantoprazole Sodium 40 mg DAILY IV 02/24/24 10:00 02/29/24 09:28 40 MG Diagnostic Test (Pha) 1 strip ACHS 02/24/24 07:00 02/29/24 17:08 1 STRIP Insulin Human Regular ACHS SC 02/24/24 07:00 02/26/24 05:57 2 UNITS Dextrose 50 ml UD PRN IV 02/24/24 02:00 02/28/24 21:15 50 ML Insulin Glargine 12 units QAM SC 02/24/24 07:00 02/28/24 06:20 12 UNITS Aspirin 81 mg DAILY PO 02/24/24 10:00 02/29/24 09:29 81 MG Ergocalciferol 50,000 unit Q7D PO 02/24/24 10:00 02/24/24 11:27 50,000 UNIT Losartan Potassium 50 mg DAILY PO 02/24/24 10:00 02/29/24 09:30 50 MG Metoprolol Succinate 25 mg DAILY PO 02/24/24 10:00 02/28/24 09:07 25 MG Sertraline HCl 50 mg DAILY PO 02/24/24 10:00 02/29/24 09:29 50 MG Pramipexole Dihydrochloride 0.75 mg TID PO 02/24/24 06:00 02/29/24 13:22 0.75 MG Cephalexin 500 mg Q6HR PO 02/24/24 06:00 02/29/24 16:54 500 MG Fluconazole 200 mg DAILY PO 02/24/24 10:00 02/29/24 09:29 200 MG Levothyroxine Sodium 100 mcg DAILY IV 02/25/24 10:00 02/29/24 09:28 100 MCG Apixaban 5 mg BID PO 02/25/24 22:00 02/29/24 09:30 5 MG Hydralazine HCl 50 mg Q12HR PO 02/25/24 22:00 02/29/24 09:29 50 MG Ferrous Sulfate 300 mg DAILY PO 02/27/24 10:00 02/28/24 09:04 300 MG Atorvastatin Calcium 20 mg HS PO 02/27/24 22:00 02/28/24 21:15 20 MG Laboratory Results Laboratory Tests 02/25/24 10:05 02/28/24 10:40 Microbiology Microbiology Date/Time Source Procedure Growth Status 02/24/24 03:40 Nose MRSA Screen - Final Complete Assessment/Plan Assessment/Plan # diabetic ketoacidosis with, associated with type 2 diabetes mellitus # acute hypoxic respiratory failure # metabolic encephalopathy # septic shock # acute on chronic diastolic congestive heart failure # uncontrolled hypothyroidism # sepsis secondary to UTI # NSTEMI type 2 secondary to demand lead ischemia # transaminitis- if further elevation in LFTs, DC Lipitor # normocytic normochromic anemia of chronic disease # hepatic steatosis # neuropathy # hyponatremia likely dilutional # hypertension # chronic pain syndrome # YULIANA on CKD likely due to VMN # arthritis Continue insulin and home medications Pending PT eval possible dc tomorrow when snf obtained Plan discussed with: Patient Date of Service: Feb 29, 2024 Billing Provider: RAYMOND WHITLOCK MD Common Visit Codes: [id number] INP/OBS CARE(HIGH) RAYMOND WHITLOCK MD Feb 29, 2024 18:29
[2024-03-01] VITALS (8 sets, daily range): BP systolic 148–162; BP diastolic 55–74; PULSE 58–109; RESP 16–20; TEMP 97.7–98.5; O2SAT 94–98
--- NOTE | 2024-03-01 17:23 | DVHPN2 ---
Subjective Seen and examined at bedside, possible DC tomorrow??? 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 x 4 General Appearance: Alert, Oriented X3 HEENT: Atraumatic Lungs: Clear to auscultation Medications Current Medications Medications Dose Ordered Sig/Leslie Route Start Time Stop Time Status Last Admin Dose Admin Sodium Chloride 10 ml Q8HR IV 02/24/24 06:00 03/01/24 13:03 10 ML Ondansetron HCl 4 mg Q4HP PRN IV 02/24/24 01:30 Docusate Sodium 100 mg BIDPRN PRN PO 02/24/24 01:30 Acetaminophen 650 mg Q6HP PRN PO 02/24/24 01:30 Morphine Sulfate 2 mg Q4HPRN PRN IV 02/24/24 01:30 03/01/24 13:02 2 MG Nitroglycerin 0.4 mg Q5MINP PRN SL 02/24/24 01:30 Morphine Sulfate 2 mg Q30M PRN IV 02/24/24 01:30 Pantoprazole Sodium 40 mg DAILY IV 02/24/24 10:00 03/01/24 09:32 40 MG Diagnostic Test (Pha) 1 strip ACHS 02/24/24 07:00 03/01/24 17:08 1 STRIP Insulin Human Regular ACHS SC 02/24/24 07:00 02/26/24 05:57 2 UNITS Dextrose 50 ml UD PRN IV 02/24/24 02:00 02/28/24 21:15 50 ML Insulin Glargine 12 units QAM SC 02/24/24 07:00 02/28/24 06:20 12 UNITS Aspirin 81 mg DAILY PO 02/24/24 10:00 03/01/24 09:32 81 MG Ergocalciferol 50,000 unit Q7D PO 02/24/24 10:00 02/24/24 11:27 50,000 UNIT Losartan Potassium 50 mg DAILY PO 02/24/24 10:00 03/01/24 09:33 50 MG Metoprolol Succinate 25 mg DAILY PO 02/24/24 10:00 02/28/24 09:07 25 MG Sertraline HCl 50 mg DAILY PO 02/24/24 10:00 03/01/24 09:32 50 MG Pramipexole Dihydrochloride 0.75 mg TID PO 02/24/24 06:00 03/01/24 13:03 0.75 MG Cephalexin 500 mg Q6HR PO 02/24/24 06:00 03/01/24 17:07 500 MG Fluconazole 200 mg DAILY PO 02/24/24 10:00 03/01/24 09:32 200 MG Levothyroxine Sodium 100 mcg DAILY IV 02/25/24 10:00 03/01/24 09:32 100 MCG Apixaban 5 mg BID PO 02/25/24 22:00 03/01/24 09:32 5 MG Hydralazine HCl 50 mg Q12HR PO 02/25/24 22:00 03/01/24 09:33 50 MG Ferrous Sulfate 300 mg DAILY PO 02/27/24 10:00 02/28/24 09:04 300 MG Atorvastatin Calcium 20 mg HS PO 02/27/24 22:00 02/29/24 22:23 20 MG Laboratory Results Laboratory Tests 02/25/24 10:05 02/28/24 10:40 Microbiology Microbiology Date/Time Source Procedure Growth Status 02/24/24 03:40 Nose MRSA Screen - Final Complete Assessment/Plan Assessment/Plan # diabetic ketoacidosis with, associated with type 2 diabetes mellitus # acute hypoxic respiratory failure # metabolic encephalopathy # septic shock # acute on chronic diastolic congestive heart failure # uncontrolled hypothyroidism # sepsis secondary to UTI # NSTEMI type 2 secondary to demand lead ischemia # transaminitis- if further elevation in LFTs, DC Lipitor # normocytic normochromic anemia of chronic disease # hepatic steatosis # neuropathy # hyponatremia likely dilutional # hypertension # chronic pain syndrome # YULIANA on CKD likely due to VMN # arthritis # deconditioned -continue insulin sliding scale as prescribed -continue Lantus 12 units q.a.m. -continue aspirin 80 mg p.o. daily -continue atorvastatin 20 mg p.o. q.h.s. -continue ferrous sulfate liquid 300 mg daily -increased levothyroxine from 100 125 mcg p.o. q.a.m. -continue losartan 50 mg p.o. q.d. -continue metoprolol 25 mg p.o. daily -continue pantoprazole 40 mg IV daily -continue sertraline 50 mg p.o. daily -continue cephalexin 500 mg p.o. q.6h -continue fluconazole 200 mg p.o. daily -continue sertraline 50 mg p.o. daily -continue hydralazine 50mg q12 Plan discussed with: Patient My Orders Orders - RUBENS BAIN MD Procedure Category Date Status Time Basic Metabolic Panel LAB 03/02/24 Verified 04:00 Complete Blood Count LAB 03/02/24 Verified 04:00 Magnesium LAB 03/02/24 Verified 04:00 Thyroid Stimulating LAB 03/02/24 Verified Hormone 04:00 Date of Service: Mar 01, 2024 Billing Provider: RUBENS BAIN MD Common Visit Codes: [id number] INP/OBS CARE(HIGH) RUBENS BAIN MD Mar 01, 2024 17:23
[2024-03-02 01:00] VITALS: BP 157/66; PULSE 67; RESP 20; TEMP 98.4; O2SAT 95
[2024-03-02 05:00] VITALS: BP 138/72; PULSE 71; RESP 20; TEMP 97.5; O2SAT 97
[2024-03-02 07:30] LABS: Basophils # (auto) 0 10 ^3/uL (0-0.2); Basophils % (auto) 0.7 % (0.0-2.0); Eosinophils # (auto) 0.1 10 ^3/uL (0-0.8); Eosinophils % (auto) 2.2 % (0.0-7.0); Hematocrit 35.2 % (36.0-46.0); Hemoglobin 10.4 g/dL (12.2-16.2); Lymphocytes # (auto) 2.7 10 ^3/uL (0.4-5.4); Lymphocytes % (auto) 47.4 % (10.0-50.0); Mean Corpuscular Hemoglobin 26.6 pg (28.0-32.0); Mean Corpuscular Hgb Conc. 29.7 g/dL (32.0-36.0); Mean Corpuscular Volume 89.8 fL (80.0-100.0); Monocytes # (auto) 0.2 10 ^3/uL (0-1.3); Monocytes % (auto) 3.5 % (0.0-12.0); Neutrophils # (auto) 2.6 10 ^3/uL (1.6-8.6); Neutrophils % (auto) 46.2 % (37.0-80.0); Nucleated Red Blood Cells % 0.1 %; Platelet Count (auto) 185 10^3/uL (140-450); Red Blood Cells 3.92 10^6/uL (4.0-5.20); White Blood Cell 5.7 10^3/uL (4.4-10.8)
[2024-03-02 07:35] LABS: Red Cell Distribution Width 21.6 % (11.8-14.3)
[2024-03-02 08:00] VITALS: O2SAT 96
[2024-03-02 08:33] LABS: Anisocytosis Slight
[2024-03-02 08:34] LABS: Platelet Estimate Adequate
[2024-03-02 09:00] VITALS: BP 141/72; PULSE 69; RESP 18; TEMP 98.2; O2SAT 97
[2024-03-02 09:30] LABS: Anion Gap 8 (5-15); Carbon Dioxide 25 mmol/L (20-31); Chloride 101 mmol/L (98-107)
[2024-03-02 09:31] LABS: Calcium 9.4 mg/dL (8.7-10.4)
[2024-03-02 09:36] LABS: BUN/Creatinine Ratio 5.3 (10.0-20.0); Magnesium 1.6 mg/dL (1.6-2.6)
[2024-03-02 09:46] LABS: Blood Urea Nitrogen 7 mg/dL (9-23); Glucose 178 mg/dL (74-106); Potassium 3.1 mmol/L (3.5-5.1); Sodium 134 mmol/L (136-145)
[2024-03-02] MEDS ORDERED: INSLANTI SC (10:19)
[2024-03-02] MEDS ORDERED: INSU100I49 SC (10:19)
[2024-03-02] MEDS ORDERED: METO25TA36 PO (10:19)
[2024-03-02] MEDS ORDERED: LOSA-534 PO (10:19)
[2024-03-02] MEDS ORDERED: LEVO100T8 PO (10:19)
[2024-03-02] MEDS ORDERED: GLIP10TA9 PO (10:19)
--- NOTE | 2024-03-02 10:23 | DVHDS2 ---
Discharge Summary Date of Admission Feb 23, 2024 at 23:50 Date of Discharge: Mar 02, 2024 Admitting Diagnosis Diabetic Ketoacidosis Labs/Diagnostic Data: Laboratory Results Test 03/02/24 08:53 03/02/24 06:34 03/02/24 06:14 02/26/24 13:16 Sodium Level 134 mmol/L (136-145) Potassium Level 3.1 mmol/L (3.5-5.1) Chloride Level 101 mmol/L (98-107) Carbon Dioxide Level 25 mmol/L (20-31) Anion Gap 8 (5-15) Blood Urea Nitrogen 7 mg/dL (9-23) Creatinine 1.32 mg/dL (0.550-1.02) Glomerular Filtration Rate Calc 44 mL/min (>90) BUN/Creatinine Ratio 5.3 (10.0-20.0) Serum Glucose 178 mg/dL (74-106) Calcium Level 9.4 mg/dL (8.7-10.4) Magnesium Level 1.6 mg/dL (1.6-2.6) White Blood Count 5.7 10^3/uL (4.4-10.8) Red Blood Count 3.92 10^6/uL (4.0-5.20) Hemoglobin 10.4 g/dL (12.2-16.2) Hematocrit 35.2 % (36.0-46.0) Mean Corpuscular Volume 89.8 fL (80.0-100.0) Mean Corpuscular Hemoglobin 26.6 pg (28.0-32.0) Mean Corpuscular Hemoglobin Concent 29.7 g/dL (32.0-36.0) Red Cell Distribution Width 21.6 % (11.8-14.3) Platelet Count 185 10^3/uL (140-450) Mean Platelet Volume 9.6 fL (6.9-10.8) Neutrophils (%) (Auto) 46.2 % (37.0-80.0) Lymphocytes (%) (Auto) 47.4 % (10.0-50.0) Monocytes (%) (Auto) 3.5 % (0.0-12.0) Eosinophils (%) (Auto) 2.2 % (0.0-7.0) Basophils (%) (Auto) 0.7 % (0.0-2.0) Neutrophils # (Auto) 2.6 10 ^3/uL (1.6-8.6) Lymphocytes # (Auto) 2.7 10 ^3/uL (0.4-5.4) Monocytes # (Auto) 0.2 10 ^3/uL (0-1.3) Eosinophils # (Auto) 0.1 10 ^3/uL (0-0.8) Basophils # (Auto) 0 10 ^3/uL (0-0.2) Nucleated Red Blood Cells 0.1 % Platelet Estimate Adequate Anisocytosis (manual) Slight Microcytosis Slight POC Glucose 267 mg/dl (70-106) Total Bilirubin 0.2 mg/dL (0.2-1.0) Aspartate Amino Transferase (AST) 151 U/L (13-40) Alanine Aminotransferase (ALT) 57 U/L (7-40) Alkaline Phosphatase 283 U/L (46-116) Total Protein 5.3 g/dL (5.7-8.2) Albumin 3.2 g/dL (3.2-4.8) Test 02/24/24 01:55 D-Dimer, Quantitative 1.93 mg/L FEU (0.0-0.49) Hemoglobin A1c 8.2 % A1C (<5.7) Lactic Acid Level 1.1 mmol/L (0.4-2.0) Troponin I High Sensitivity 207 ng/L (</=34) B-Type Natriuretic Peptide 590.07 pg/mL (0-100) Triglycerides Level 140 mg/dL (< 150) Cholesterol Level 135 mg/dL (< 200) LDL Cholesterol 71 mg/dL (< 100) HDL Cholesterol 45 mg/dL (40-59) Vitamin B12 Level 1523 pg/mL (211-911) Folic Acid 4.25 ng/mL (>5.38) Free Thyroxine (T4) Calculated 0.45 ng/dL (0.89-1.76) Free Triiodothyronine (T3) pg/mL 0.74 pg/mL (2.3-4.2) Other Laboratory Tests 03/02/24 08:53 03/02/24 06:34 Brief Hx & Hospital Course: Patient is 68 years old female with past medical history of hypertension, diabetes mellitus type 2, hypothyroidism, COPD, obesity, hepatic steatosis, cholelithiasis, Kidney disease, arthritis, congestive heart failure, neuropathy, suspected metastatic lesion in the brain of unclear etiology is a transfer from [facility] with a diagnosis of diabetic ketoacidosis with associated with type 2 diabetes mellitus, metabolic encephalopathy, acute respiratory failure. Patient was admitted at [facility] on 02/17/2024 with a complaint of vomiting, altered mental status, GCS 8 with a high blood sugar level. Patient was intubated and on mechanical ventilator. labs and chart were reviewed from provided documents from [facility]. Patient was hypotensive with tachycardia, with a altered mental status. on 02/17/2024 ABG revealed patient had pH 6.9, pCO2 15, bicarbonate 3.5. Troponin I was elevated, 339 blood sugar 1006, WBC 18.31, hemoglobin 10.1, sodium 127, potassium 4.8, Anion gap 31, serum creatinine 3.90, BUN 59, CXR revealed Minimal reticulation in the right lower lung lobe likely atelectasis or scaring, no consolidation. CAD brain revealed no acute intracranial hemorrhage or infarct, multiple hypodensity in bilateral cerebral hemisphere and bilateral posterior medical occipital lobe which likely represents subacute or chronic infarct. Metastasis disorder could not be ruled out. per [facility] note patient was admitted to the hospital with altered mental status and vomiting. Per EMS the patient's family noted that she was walking and talking normally when she had sudden episode of vomiting. Per EMS on the scene glucose level was high on the fingerstick and blood pressure was 110/55, heart rate 111. as per note from [facility]- on arrival the patient's EDC was 7, obtunded however maintained gap reflex, was normotensive tachycardic 110, initial lab workup revealed pH 6.6, bicarb 3, glucose greater than 1000, potassium 4.3, patient was to insulin drip was given 2 ampules of bicarb IV push. But after returning from [place] head to rule out any intracranial hemorrhage patient became more obtunded. patient was intubated for airway protection on 02/18/2024 and extubated on 02/23/2024. Patient was seen today at bedside tonight. Patient denied any nausea/vomiting/chest pain/shortness of breaths/dysuria/abdominal pain/dizziness/vertigo. Patient was seen and blood sugars are well controlled, patient is deconditioned, I spoke with the patients daughter, she will take the patient home to [place]. Condition at Discharge: Poor Final Diagnosis/Problems List # diabetic ketoacidosis with, associated with type 2 diabetes mellitus # acute hypoxic respiratory failure # metabolic encephalopathy # septic shock # acute on chronic diastolic congestive heart failure # uncontrolled hypothyroidism # sepsis secondary to UTI # NSTEMI type 2 secondary to demand lead ischemia # transaminitis- if further elevation in LFTs, DC Lipitor # normocytic normochromic anemia of chronic disease # hepatic steatosis # neuropathy # hyponatremia likely dilutional # hypertension # chronic pain syndrome # YULIANA on CKD likely due to VMN # arthritis # deconditioned Discharge Disposition: Home Discharge Instruct/Medications Diet: Consistent carbohydrate Activity: No Restrictions, As Tolerated Follow Up/Referral: PCP in 1 week Medications: see [facility] Discharge Statement: "Patient was advised to return to the ER or call 911 if any headaches, dizziness, shortness of breath, chest pain, abdominal pain, bleeding, fevers, or worsening of medical condition. Patient was counseled about treatment plan, medications, possible side effects, patientverbalized understanding. All questions were answered to the best of my ability. This discharge took greater then 30 minutes in planning, reviewing documentation, counseling the patient, and discussing with other team members." ASSESSMENT ASSESSMENT Assessment # diabetic ketoacidosis with, associated with type 2 diabetes mellitus # acute hypoxic respiratory failure # metabolic encephalopathy # septic shock # acute on chronic diastolic congestive heart failure # uncontrolled hypothyroidism # sepsis secondary to UTI # NSTEMI type 2 secondary to demand lead ischemia # transaminitis- if further elevation in LFTs, DC Lipitor # normocytic normochromic anemia of chronic disease # hepatic steatosis # neuropathy # hyponatremia likely dilutional # hypertension # chronic pain syndrome # YUL[place]NA on CKD likely due to VMN # arthritis # deconditioned Date of Service: Mar 02, 2024 Billing Provider: RUBENS BAIN MD Common Visit Codes: 89155-VMF/OBS DISCH DAY >30min RUBENS BAIN MD Mar 02, 2024 10:23
[2024-03-02] MEDS: ACETAMINOPHEN 325 MG TAB PO PRN (11:09)
== END 2024-03-02 11:25 | disposition home or self-care (01) | DRG 871 ==
LOC: TELE-WESTW 23:50 → WEST WING 03-01 17:50
PROVIDERS: ADMIT Nurse Practitioner; ATTEND Internal Medicine
DX: A41.9 Sepsis, unspecified organism (principal); E11.10 Type 2 diabetes mellitus with ketoacidosis without coma; J96.01 Acute respiratory failure with hypoxia; G93.41 Metabolic encephalopathy; R65.21 Severe sepsis with septic shock; I50.33 Acute on chronic diastolic (congestive) heart failure; I21.A1 Myocardial infarction type 2; N17.0 Acute kidney failure with tubular necrosis; N39.0 Urinary tract infection, site not specified; E87.1 Hypo-osmolality and hyponatremia; I82.411 Acute embolism and thrombosis of right femoral vein; I13.0 Hypertensive heart and chronic kidney disease with heart failure and stage 1 through stage 4 chronic kidney disease, or unspecified chronic kidney disease; N18.9 Chronic kidney disease, unspecified; E03.9 Hypothyroidism, unspecified; J44.9 Chronic obstructive pulmonary disease, unspecified; D63.8 Anemia in other chronic diseases classified elsewhere; K76.0 Fatty (change of) liver, not elsewhere classified; E11.40 Type 2 diabetes mellitus with diabetic neuropathy, unspecified; G89.4 Chronic pain syndrome; E11.22 Type 2 diabetes mellitus with diabetic chronic kidney disease; I25.10 Atherosclerotic heart disease of native coronary artery without angina pectoris; Z79.4 Long term (current) use of insulin; Z79.899 Other long term (current) drug therapy
CPT/HCPCS: 36415; 71045; 80048; 80053; 80061; 82607; 82746; 82962; 83036; 83605; 83735; 83880; 84439; 84443; 84481; 84484; 85025; 85379; 87081; 93970; 96374; 96375; 97110; 97116; 97163; 97530; G0378; J1815; J2470; J3490